=== PATIENT | female | born 1965 | race Caucasian/White ===

== ENCOUNTER 2021-12-28 13:02 | Emergency (ER) | payer OTHER, SELFPAY ==
[2021-12-28 13:07] VITALS: BP 104/51; PULSE 66; RESP 18; TEMP 36.5; O2SAT 97; BMI 31.4
--- NOTE | 2021-12-28 13:40 | ED_ITS ---
HPI - Eye Problem General Chief complaint: Eye Problems Stated complaint: Something in RT eye Time Seen by Provider: 12/28/21 13:30 History of Present Illness HPI Narrative: This 56-year-old female comes in reporting right eye discomfort. She states that she woke up with it this morning and does not know of any particular foreign object or injury event that brought about these symptoms. She states that she attempted to flush her eye out with Visine prior to arrival. Related Data Home Medications Medication Instructions Recorded Confirmed atorvastatin 40 mg tablet mg 12/28/21 bupropion HCl 150 mg 24 hr tablet, mg PO 12/28/21 extended release calcitriol 0.25 mcg capsule mcg 12/28/21 carvedilol 12.5 mg tablet mg 12/28/21 citalopram 20 mg tablet mg 12/28/21 loratadine 12/28/21 pramipexole 0.25 mg tablet mg 12/28/21 sevelamer carbonate 800 mg tablet mg 12/28/21 torsemide 20 mg tablet mg 12/28/21 trazodone 50 mg tablet mg 12/28/21 vitamin B complex and vitamin C cap 12/28/21 no.20-folic acid 1 mg capsule ([place]nee Caps) Previous Rx's Medication Instructions Recorded ketorolac 0.4 % eye drops 1 drp ophthalmic (eye) QID #5 mL 12/28/21 Allergies Allergy/AdvReac Type Severity Reaction Status Date / Time Penicillins Allergy Rash Verified 12/28/21 13:11 mercera(?) iron Allergy Uncoded 12/28/21 13:14 Review of Systems Status of ROS: Reports: 10 or more systems reviewed and unremarkable except as noted in History and below Narrative: Constitutional: No fevers, no weight gain or loss. Eyes: No discharge. No vision changes. Right eye pain which she prefers to manage by keeping her right eyelid closed. HENT: No congestion, no sore throat, no ear pain. Cardiovascular: No chest pain, no palpitations. Respiratory: No shortness of breath, no wheezes, no cough. Gastrointestinal: No abdominal pain, no vomiting, no diarrhea. Genitourinary: No dysuria, no hematuria. Musculoskeletal: Normal range of motion. Skin: No rashes, no pruritis. Neurological: No dizziness, weakness, sensory change, speech change. Endo/Heme/Allergies: No bruising or bleeding. No polydipsia. Pysch: no suicidality, no anxiety, no insomnia. All other systems reviewed and are negative. [facility] Social History Smoking Status: Current every day smoker How often do you have a drink containing alcohol: monthly or less AUDIT-C Alcohol total score: 1 Non-prescribed substance use: denies use Exam Narrative: Exam Narrative: Constitutional: Well-developed, well-nourished, no acute distress. HEENT: Normocephalic, atraumatic. Right eye is not injected and does not have any sign of discharge. The eye is examined under magnification and there is no findings of foreign object or residual material. Neck: Normal range of motion. Nontender. Supple. Heart: Intact distal pulses. Lungs: No chest discomfort. No wheezes, rhonchi, or rales. Abdomen: Nontender. Back: Normal range of motion. Extremities: Normal range of motion. No injury. Skin: Intact. No rash. Warm. No erythema or pallor. Neurologic: No altered sensation. No weakness. Alert and oriented. Psychiatric: No suicidality. No anxiety or depression. No insomnia. Nursing notes and vitals signs are reviewed. Const: Vital Signs, click to edit/add: Vital Signs - 24 hr 12/28/21 13:07 Temperature 97.7 F Pulse Rate [Left P ulse Oximeter] 66 Respiratory Rate 18 Blood Pressure [Ri ght Upper Arm] 104/51 L Pulse Oximetry 97 Oxygen Delivery Me thod Room Air Course Vital Signs Vital signs: Initial Vital Signs Temperature 97.7 F 12/28/21 13:07 Temperature Source Temporal Artery Scan 12/28/21 13:07 Pulse Rate 66 12/28/21 13:07 Pulse Rhythm 12/28/21 13:07 Respiratory Rate 18 12/28/21 13:07 Blood Pressure 104/51 L 12/28/21 13:07 Blood Pressure Mean 68 12/28/21 13:07 Blood Pressure Position Sitting 12/28/21 13:07 Pulse Oximetry 97 12/28/21 13:07 Oxygen Delivery Method 12/28/21 13:07 Vital Signs Temperature 97.7 F 12/28/21 13:07 Pulse Rate 66 12/28/21 13:07 Respiratory Rate 18 12/28/21 13:07 Blood Pressure 104/51 L 12/28/21 13:07 Pulse Oximetry 97 12/28/21 13:07 Oxygen Delivery Method 12/28/21 13:07 Temperature 97.7 F 12/28/21 13:07 Pulse Rate 66 12/28/21 13:07 Respiratory Rate 18 12/28/21 13:07 Blood Pressure 104/51 L 12/28/21 13:07 Pulse Oximetry 97 12/28/21 13:07 Oxygen Delivery Method 12/28/21 13:07 MDM - Eye Problem MDM Narrative Medical decision making narrative: This patient received tetracaine ophthalmic drops for anesthesia. I was able to re-examine her eye under magnification and found no evidence of foreign object or residual material. I did abeba her eyelid and saw normal results there also. I did apply floor seen dye and use a Wood's lamp to observe for any dye uptake. There was no evidence of dye uptake on this exam. The patient received a prescription for ketorolac ophthalmic solution for ongoing symptomatic relief. She is encouraged not to rub her eye. Discharge Plan Discharge Clinical Impression: Acute right eye pain Patient Disposition: Home, Self-Care Condition: Stable Additional Instructions: Use medication as needed and directed. Follow up with Ophthalmology Clinic as needed. Return if worsening. Prescriptions: New ketorolac 0.4 % drops 1 drp ophthalmic (eye) QID Qty: 5 0RF No Action atorvastatin 40 mg tablet Label Comments: TAKE 1 TABLET BY MOUTH EVERY DAY carvedilol 12.5 mg tablet Label Comments: TAKE 1 TABLET BY MOUTH TWICE A DAY torsemide 20 mg tablet Label Comments: TAKE 2 TABLETS BY MOUTH ONCE DAILY. trazodone 50 mg tablet Label Comments: TAKE 1 TABLET (50 MG) BY MOUTH AT BEDTIME IF NEEDED. citalopram 20 mg tablet pramipexole 0.25 mg tablet Label Comments: TAKE 1 TABLET BY MOUTH EVERYDAY AT BEDTIME [place] Caps 1 mg capsule Label Comments: TAKE 1 CAPSULE BY MOUTH ONCE DAILY. calcitriol 0.25 mcg capsule Label Comments: Take 1 capsule by mouth once a day bupropion HCl 150 mg tablet extended release 24 hr PO Label Comments: TAKE 1 TABLET BY MOUTH EVERY MORNING sevelamer carbonate 800 mg tablet Label Comments: TAKE 2 TABLETS BY MOUTH THREE TIMES DAILY WITH MEALS AND 1 TABLET TWICE DAILY WITH SNACKS loratadine Follow Up/Referrals: Lesli Sharif PA-C [Primary Care Provider] - Stand Alone [facility] Info Inst[facility]
--- OUTSIDE RECORDS SUMMARY | 2021-12-28 14:05 | XMS_ITS | Encounter Summary ---
:1965 Author Organization [facility] Address [address] [place] [address] Care Team Providers Name Role Phone Unavailable Primary Care Provider Unavailable Encounter Details Date Type Department Care Team Description 12/24/2021 Orders Only [facility] L[facility]pez Awad MD [address] [place] [address] [place], [place] [phone] (Wo rk) Social History Tobacco Use Types Packs/Day Years Used Date Smoking Tobacco: Never Assessed Sex Assigned at Date Recorded Not on file documented as of this encounter Plan of Treatment Not on filedocumented as of this encounter Procedures Procedure Name Priority Date/Time Associated Diagnosis Comme nts HD KINETICS Routine 12/24/2021 Results for thi s procedure are i n the results section . POST CHEMISTRY Routine 12/24/2021 Results for t his procedure are i n the results section . HEMATOLOGY Routine 12/24/2021 Results for thi s procedure are i n the results section . CHEMISTRY Routine 12/24/2021 Results for thi s procedure are i n the results section . [facility]RA [facility] RESULTS Routine 12/24/2021 Resul ts for this procedure are i n the results section . documented in this encounter Results [facility] Results (12/24/2021) P athologist Signature eKt/V Gotch 1.39 [facility] spKt/V 1.59 [facility] ([place]) nPCR_HD 0.85 [facility] spKt/V Gotch 1.64 [facility] eKt/V 1.37 [facility] ([place]) eKdrt/V 1.39 [facility] PCR 44.72 [facility] eNPCR 0.79 [facility] Specimen (Source) Anatomical Location Collection Method / Collectio n Time Received Time / Laterality Volume 12/24/2021 12/24/2021 [place] Ordering Provider LAB BLOOD ORDERABLES Performing Organization Address City/State/ZIP Code Phon e Number [facility] HD KINETICS (12/24/2021) athologist Signature % Urea 76 65 - 80 % [facility] Reduction [facility] Specimen (Source) Anatomical Collection Method Collection Time Re ceived Time Location / / Volume Laterality 12/24/2021 12/26/2021 8:45 AM CDT Resulting Agency Comment Specimen source: Plasma López Mariano MD LAB BLOOD ORDERABLES Performing Organization Address City/[facility]/ZIP Code Phon e Number [facility] POST CHEMISTRY (12/24/2021) athologist Signature BUN Post 11 6 - 19 [facility] Dialysis mg/dL [facility] Specimen (Source) Anatomical Collection Method Collection Time Re ceived Time Location / / Volume Laterality 12/24/2021 12/26/2021 8:45 AM CDT Narrative [facility] - 12/26/2021 Unless otherwise specified, test(s) performed at: [facility], [address] [place] [address], [place] [address] WEDGER: John Hernandez M.D., Ph.D For any questions, please call customer service at FREQUENCY:MONTHLY Resulting Agency Comment Specimen source: Plasma López Mariano MD LAB BLOOD ORDERABLES Performing Organization Address City/[facility]/ZIP Code Phon e Number [facility] (ABNORMAL) HEMATOLOGY (12/24/2021) [facility] gist Method Time Signature WBC 7.44 4.80 - [facility] 10.80 [facility] 1000/mcL RBC 3.59 (L) 4.20 - [facility] 5.40 [facility] mill/mcL Hemoglobin 12.5 12.0 - [facility] 16.0 g/dL [facility] Hemoglobin x 3 37.5 36.0 - [facility] 48.0 % [facility] Hematocrit 38.9 37.0 - [facility] 47.0 % [facility] MCV 108 (H) 80 - 100 [facility] fl [facility] MCH 34.7 (H) 27.0 - [facility] 31.0 pg [facility] MCHC 32.1 30.0 - [facility] 36.0 g/dL [facility] RDW 14.0 11.5 - [facility] 14.5 % [facility] Neutrophils 76.9 (H) 40.0 - [facility] 75.0 % [facility] Lymphocytes 14.2 (L) 19.0 - [facility] Relative 48.0 % [facility] Monocytes 4.9 3.0 - 10.0 [facility] % [facility] Eosinophils 2.2 0.0 - 7.0 [facility] Relative % [facility] Basophils 0.8 0.0 - 1.5 [facility] Relative % [facility] JESSICA 1.0 0.0 - 4.0 [facility] % [facility] Platelets 203 130 - 400 [facility] 1000/mcL [facility] Specimen (Source) Anatomical Collection Method Collection Time Re ceived Time Location / / Volume Laterality 12/24/2021 12/26/2021 8:19 AM CDT Narrative [facility] - 12/26/2021 Unless otherwise specified, test(s) performed at: [facility], [address] [place] [address], [place] [address] WEDGER: John Hernandez M.D., Ph.D For any questions, please call customer service at FREQUENCY:MONTHLY Resulting Agency Comment Specimen source: Blood López Mariano MD LAB BLOOD ORDERABLES Performing Organization Address City/State/ZIP Code Phon e Number [facility] (ABNORMAL) [facility]rae Chemistry (12/24/2021) [facility] gist Method Time Signature BUN 45 (H) 6 - 19 [facility] mg/dL [facility] Creatinine 9.03 (H) 0.60 - [facility] 1.30 mg/dL [facility] BUN/Creatinine 5.0 (L) 10.0 - [facility] Ratio 20.0 [facility] Sodium 137 136 - 145 [facility] mEq/L [facility] Potassium 4.9 3.5 - 5.1 [facility] mEq/L [facility] Chloride 100 96 - 108 [facility] mEq/L [facility] Bicarbonate 25 20 - 31 [facility] (CO2) mEq/L [facility] Comment: Please note change in reference range. Calcium 9.5 8.7 - 10.4 mg/dL [facility] Comment: Please note change in reference range. Corrected Calcium 9.2 8.7 - 10.4 mg/dL [facility]PS S PECTRA [facility] Comment: Corrected Calcium is not equivalent to m easured Ionized Calcium. Phosphorus 3.5 2.6 - 4.5 mg/dL [facility] Calcium Phosphorus Product 33 0 - 54 [facility] Calcium Phosporus Product, Cor 32 0 - 54 [facility] Total Protein 7.1 6.0 - 8.5 g/dL [facility] Albumin 4.4 3.5 - 5.2 g/dL [facility] Globulin, Total 2.7 2.0 - 4.0 g/dL [facility]PS SPECT RA [facility] A/G Ratio 1.6 1.0 - 2.0 [facility] Iron 82 30 - 160 mcg/dL [facility] UIBC 156 155 - 355 mcg/dL [facility] TIBC 238 185 - 515 mcg/dL [facility] Iron Saturation (TSat) 34 20 - 55 % APS SPE CTRA [facility] Specimen (Source) Anatomical Collection Method Collection Time Re ceived Time Location / / Volume Laterality 12/24/2021 12/26/2021 6:13 AM CDT Narrative [facility] - 12/26/2021 Unless otherwise specified, test(s) performed at: [facility], [address] [place] [address], [place] [address] WEDGER: John Hernandez M.D., Ph.D For any questions, please call customer service at FREQUENCY:MONTHLY Resulting Agency Comment Specimen source: Serum López Mariano MD LAB BLOOD ORDERABLES Performing Organization Address City/State/ZIP Code Phon e Number [facility] documented in this encounter Visit Diagnoses Not on filedocumented in this encounter
--- OUTSIDE RECORDS SUMMARY | 2021-12-28 14:05 | XMS_ITS | Clinical Summary ---
:1965 External Reference #:NONE Author Organization [facility] [place] [address] Care Team Providers Name Role Phone Matthew Pugh Primary Care Provider Allergies Active Allergy Reactions Severity Noted Date Comments Neomycin Rash High 12/11/2016 Penicillins Hives, Rash High 03/05/2008 Medications Medication Sig Dispensed Refills Start End Date Status Date loratadine Take 1 tablet by 0 Ac tive (CLARITIN) 10 mg mouth once daily. 2 tablet aspirin chewable Take 1 tablet by 90 tablet 3 Active (CHILDRENS ASPIRIN) mouth once daily 9 81 mg chewable with a meal. tablet sevelamer carbonate Take 1 Tablet by 0 Active (RENVELA) 800 mg mouth 3 times 1 tab tablet daily with meals. Sylvain Caps 1 mg 0 Activ e capsule 1 CPAPIndications: CPAP machine for 1 Device 11 Active TREMAINE on CPAP home use at 1 pressure: 4-15 cmw , Heated humidifier x 1 q 5 yr, Humidifier chamber x 1 q 6 mo, Full face mask x1 q 3mos, with cushion x 1 q mo, Heated tubing x 1 q 3 mo, Headgear x 1 q 6 mo, Filters: Disposable x 2 q mo non-disposable filters x1 q 6mo, Length of Need: 99 months, Frequency of use: Daily Esomeprazole Take 20 mg by 0 Act clyde Magnesium 40 mg mouth. grps pramipexole Take 1 Tablet by 0 A ctive (MIRAPEX) 0.25 mg mouth at bedtime. 1 tablet buPROPion Take 1 Tablet 90 Tablet 1 Active (WELLBUTRIN XL) 150 (150 mg) by mouth 1 mg Extended-Release every morning. tabletIndications: Dysthymia, Tobacco use sennosides-docusate Take 1 Tablet by 20 Tablet 0 Active (SENOKOT S) (8.6-50 mouth 2 times 1 mg) daily if needed tabletIndications: for Constipation. Peritoneal dialysis catheter dysfunction, subsequent encounter (HC) acetaminophen Take 2 Tablets 30 Tablet 0 A ctive (TYLENOL) 325 mg (650 mg) by mouth 1 tabletIndications: every 6 hours. Peritoneal dialysis Max acetaminophen catheter dose: 4000mg in dysfunction, 24 hrs. subsequent encounter (HC) torsemide (DEMADEX) Take 2 Tablets 180 Tablet 3 Active 20 mg (40 mg) by mouth 2 tabletIndications: once daily. ESRD (end stage renal disease) (HC) carvediloL (COREG) Take 1 Tablet 180 Tablet 3 Active 12.5 mg (12.5 mg) by 2 tabletIndications: mouth 2 times Essential daily. hypertension lidocaine-prilocain APPLY SMALL 0 Active e (EMLA) 2.5-2.5 % AMOUNT TO ACCESS 2 cream SITE (AVF) 1 TO 2 HOURS BEFORE DIALYSIS. COVER WITH OCCLUSIVE DRESSING (SARAN WRAP) citalopram (CELEXA) Take 1 Tablet (20 90 Tablet 1 Active 20 mg mg) by mouth at 2 tabletIndications: bedtime. Dysthymia traZODone (DESYREL) TAKE 1 TABLET (50 90 Tablet 0 Active 50 mg MG) BY MOUTH AT 2 tabletIndications: BEDTIME IF Insomnia, NEEDED. unspecified type atorvastatin TAKE 1 TABLET BY 90 Tablet 2 Active (LIPITOR) 40 mg MOUTH EVERY DAY 2 tabletIndications: Hyperlipidemia, unspecified hyperlipidemia type atorvastatin Take 1 Tablet (40 90 Tablet 3 12/14/19 Discontinued (LIPITOR) 40 mg mg) by mouth once 1 22 tabletIndications: daily. Hyperlipidemia, unspecified hyperlipidemia type Active Problems Problem Noted Date Pre-transplant evaluation for ESRD (end stage renal di sease) 03/31/2021 Polycystic liver 03/31/2019 Peritoneal dialysis catheter dysfunction Mar 201903/19 TREMAINE 04/04/2020 HST AHI-45 03/30/2019 Tobacco abuse 03/30/2019 Hyperlipidemia 03/29/2019 Uremia 03/01/2019 ESRD (end stage renal disease) due to PCKD 02/22/2019 Overview: Started on peritoneal dialysis Feb 2019. Catheter malfunction Mar 2019 so started on hemodialysis 03/30/19 Anemia in end-stage renal disease 02/22/2019 Routine adult health maintenance 08/29/2018 Overview: Colonoscopy 08/2018 diverticulosis, repea t in 5 years, Pediatrics scope Essential hypertension 07/13/2018 Secondary renal hyperparathyroidism 07/13/2018 Acalculous cholecystitis 07/04/2014 Polycystic kidney disease 08/23/2013 Asthma 03/02/2013 Resolved Problems Problem Noted Date Resolved Date CKD (chronic kidney disease) stage 5, GFR less than 15 07/1302/22/2019 ml/min Metabolic acidosis 07/13/2018 02/22/2019 Anemia in stage 4 chronic kidney disease 07/13/2018 02/22/2019 Encounters Date Type Specialty Care Team Description 12/26/2021 Ancillary Procedure Arrived 12/26/2021 Travel 12/10/2021 Refill Matthew Pugh Refill Request [facility] Mejia (Atorvastatin) 12/08/2021 Office Visit Shannan Govea MD Transpla nt Eval 12/08/2021 Travel 12/04/2021 Hospital Encounter Shannan Govea MD Pre-transplant evaluation [facility], for ESRD (end s tage renal Lucia P disease) 12/04/2021 Travel 11/08/2021 Refill Matthew Pugh Refyumi Request [facility] Mejia (Trazodone) 11/04/2021 Orders Only Shannan Govea MD <No scan s attached> 10/08/2021 Telephone Meliza Spence Status U mari Still RN 10/02/2021 Nurse/Clinic Staff Cardiovas cular Diagnostic Only Testing (EKG PE R MATTHEW PUGH PA-C) 10/02/2021 Orders Only Matthew Pugh <No scans anthony ched> J[facility] Mejia 10/02/2021 Travel from Last 3 Months Immunizations Name Administration Dates Next Due AMB Influenza, IIV4 PF (=>6 mos 01/23/2017 Flulaval,Fluzone Fluarix)(Flu Clinic Only) COVID-19 vaccine (Moderna 06/10/2020, 05/17/2020 100mcg/0.5mL) PF, MDV COVID-19 vaccine ([employer] 09/16/2021 30mcg/0.3mL) 12YO+ WANDY-SUCROSE PF, MDV Hepatitis B (Adult) 08/23/2019, 04/25/2019, 03/25/2019, 02/22/2019 Influenza A (H1N1), Inactivated 05/14/2009 Influenza Virus, Unspecified 01/24/2020, 03/14/2012, 011, 01/28/2010, 01/01/2009, 03/08/2008, 02/18/2006, 04/15/2004, 01/24/1997 Influenza, IIV3 (Age >=3 years) 03/14/2012, 01/27/2011, 01/17, 01/01/2009, 03/08/2008, 02/18/2006, 04/15/2004 Influenza, IIV4 01/31/2021, 01/24/2020, 04/02/2018, 01/23/2017, 02/04/2016, 12/21/2013 Pneumococcal Poly,23-Valent 02/04/2016 (Pneumovax) Pneumococcal conj 13-Valent (Prevnar 08/21/2020 13) TD, UNSPECIFIED 2006 Td (Age >=7 Years) 2006 Td, Preservative Free (age >= 7 2006 Years) Tdap 11/28/2020, 05/18/2011 Tuberculin (PPD) 02/22/2019 Family History Medical History Relation Name Comments Cancer-breast Father Hypertension Father Other Father polycystic kidne y disease Cancer-breast Mother Anesthesia Malignant Hyperthermia No Family History Blood Disease No Family History Relation Name Status Comments Father Mother Social History Tobacco Use Types Packs/Day Years Used Date Current Every Day Smoker Cigarettes 0.5 30 Smokeless Tobacco: Never Used Tobacco Cessation: Counseling Given: Yes Alcohol Use Standard Drinks/Week Comments Yes 0 (1 standard drink = 0.6 oz pure alcoho l) rarely Alcohol Habits Answer Date Recorded How often do you have a drink containing alcohol? Not asked How many drinks containing alcohol do you have on a typical Not asked day when you are drinking? How often do you have six or more drinks on one occasion? No t asked Comment: rarely 12/11/2016 Sex Assigned at Date Recorded Female 06/24/2020 10:04 AM [employer] COVID-19 Exposure Response Date Recorded In the last 10 days, have you been in contact with No / Unsu re 12/26/2021 3:34 PM CDT someone who was confirmed or suspected to have Coronavirus/COVID-19? Obstetrics History Last Filed Vital Signs Vital Sign Reading Time Taken Comments Blood Pressure 114/56 12/08/2021 12:23 PM CDT Pulse 72 12/08/2021 12:23 PM CDT Temperature 36.8 ??C (98.3 ??F) 12/08/2021 12:23 PM CDT Respiratory Rate 16 12/08/2021 12:23 PM CDT Oxygen Saturation 93% 12/08/2021 12:23 PM CDT Inhaled Oxygen Concentration - - Weight 92.5 kg (203 lb 14.4 oz) 12/08/2021 12:23 PM CDT Height 172.7 cm (5' 8) 12/08/2021 12:23 PM CDT Body Mass Index 31 12/08/2021 12:23 PM CDT Plan of Treatment Health Maintenance Due Date Last Done Comments Zoster (shingles) series for age 1103/10/1983 50+ (1 of 2) Pneumococcal series for age 19-64 08/21/2021 08/21/2020, (3 - PPSV23 or PCV20) Mammogram for age 45-75 11/20/2021 11/20/2020, 08/16/2018, 12/18/2016 Influenza for age 50-64 12/18/2021 01/31/2021, 01/24/2020, 01/24/2020, Additional history exists COVID-19 vaccine series (4 - 01/16/2022 09/16/2021, 021, Booster for Moderna series) 05/17/2020 Depression screening for age 12+ 09/16/2022 09/16/2021, , 09/08/2019, Additional history exists BMI (ht and wt on same day) for 12/08/2022 12/08/2021, 05/3 04/2021, age 18+ 03/03/2021, Additional history exists Lipids for age 45-75 11/28/2025 11/28/2020, 08/16/2018, 12/15/2016 Pap test for age 21-65 11/28/2025 11/28/2020, 11/28/2020, 08/16/2018, Additional history exists Colonoscopy through age 75 08/29/2028 08/29/2018, 9, 08/29/2018, Additional history exists Tetanus booster 11/28/2030 11/28/2020, 05/18/2011, 2006, Additional history exists Hepatitis C screening for age Completed 10/18/2020 18-79 Tdap Completed 11/28/2020, 05/18/2011 Procedures Procedure Name Priority Date/Time Associated Diagnosis Comme nts ECHO STRESS WO Routine 12/04/2021 10:31 Pre-transplant Results for this CONTRAST AM CDT evaluation for ESRD procedur e are in (end stage renal the results disease) section. EKG 12 LEAD Routine 10/02/2021 1:36 PM QT prolongation CDT HI READING EKG - NO Routine 10/02/2021 1:35 PM QT prolongation CHARGE, COMP ONLY CDT from Last 3 Months Results ECHO STRESS WO CONTRAST (12/04/2021 10:31 AM CDT) P athologist Signature AORTIC VALVE 5 mmHg MEAN PG LVEDD 4.6 cm EJECTION 55 - 60% FRACTION Anatomical Region Laterality Modality HEART Ultrasound Specimen (Source) Anatomical Collection Method Collection Time Re ceived Time Location / / Volume Laterality 12/04/2021 9:35 AM CDT Narrative 12/04/2021 10:54 AM CDT STRESS ECHOCARDIOGRAM CARRIE NORMAN ?Acces amada#: ?? [id number] : ?1965 56 years Study Date : ?? 12/04/2021 9:35:38 AM Gender: F ? BP: ? 98/48 mmHg Height: 170.00 cm ? BSA: ?2.02 m? ?? Weight: 91.00 kg ?Tech: ? CJG ?Referring MD: SHANNAN GOVEA Site: ? [facility] Reading Location: [facility] OP Procedure: Stress Echo, Limited Spectral Doppler, Color Doppler and Limited 2D. Sanjeev stress echo. Indication for study: ESRD Cardiac Rhythm: Regular.Study quality: Final Impressions: 1. Submaximal stress Echo. The peak hea rt rate was 79.5% of the age predicted maximal heart rate. Patient had taken Carvedilol the morning of stress test. 2. No inducible ischemia by imaging or ECG at the peak heart rate achieved. Of note, patient has history of an abnormal Dobutamine stress Echo in 06/2019 and subsequent coronary angiogram on 07/05/19 at [facility] had shown 70% OM lesion whi ch was left untreated due to small vessel side No significant CAD in the rest of the coronary arterial tree. 3. Resting LVEF 55-60%. 4. No significant valvular abnormalitie s by limited Doppler assessment. Stress Data: ? HR ?Systolic Diastolic Time Duration Minutes Seconds Baseline 7 2 bpm ? 98 ?48 mmHg ?8 :11 ? Peak ? 129 bpm ?? 122 ?64 mmHg Max Pred HR ?162 % of Max ? 79% ?? Benitez Treadmill Score 8 Double Product [id number] Echo Findings:This is a negative stress echo test for ischemia. Post stress, decreased left ventricular size, increased global systolic function with an estimated EF of 60 to 65%. LV regional wall motion abnormalities are not present post exercise. EKG:Resting EKG showed regular rhythm wi th normal conduction. During exercise, the patient developed no abnormal findings on rhythm with normal conduction. There were no ischemic changes by EKG during stress. Exam Protocol:The patient presents with no significant symptoms at baseline. The patient exercised 8 min 11 sec to stage III according to the Sanjeev stress echo protocol. Test terminated due to leg fatig ue. 10.2 METS were achieved. The patient achieved a heart rate of 129 bpm which is 79.5% of maximum predicted heart rate. Maximum systolic blood pressure was 122 mmHg which gives a double product of 157 38. Submaximum stress test with 79.5% of age predicted maximum heart rate achieved. The blood pressure response was normal. Exercise duration and workload were good. The patient developed leg pain/fatig ue during the stress exam. Symptoms reso lved with rest. Low (less than 1% annual mortality rate) non invasive risk stratification. Exercise stress test Benitez Treadmill Score of 8. Chamber Sizes and Function Normal left ventricular size, normal mayra bal systolic function with an estimated EF of 55 - 60%. LV regional wall motion abnormalities are not present. Left atrial size is normal. Right ventricular cavit y size is normal, global systolic RV fun ction is normal. The right atrium is normal. The pulmonary artery is not well visualized. The sinus of Valsalva is normal sized. The ascending aorta is not well visualized. Valves, RV Pressures and Diastolic Funct ion The aortic valve is normal in structure and trileaflet, no stenosis and no regurgitation. The mitral valve is normal in structure, no mitral regurgitation. The tricuspid valve is normal in structure. Tr icuspid regurgitation is trace. The pulm onic valve is not well visualized. Masses, Effusion, Shunts There is no pericardial effusion. The in ferior vena cava is not well visualized. Interatrial septum is not well visualized. MEASUREMENTS AND CALCULATIONS 2-D Measurements and LV Function: LVID (d) 4.6 cm LV FS% (2D) ?? 33 % LVID (s) 3.1 cm LVOT diameter 2.1 cm IVS (d) ??0.8 cm HR ?72 bpm LVPW (d) 0.9 cm Ao Sinus 3.3 cm LA ? 3.8 cm Aortic Valve: Vmax ? 1.4 m/s ??KIA (V) ?? 2.24 cm? ?? VTI ?0.32 m ?? KIA (I) ?? 2.34 cm? ?? LVOT V max 0.9 m/s ??Max PG ?8 mmHg LVOT VTI ?? 0.21 m ?? Mean PG ?? 5 mmHg SV ? 74 ml ?Dim Index 0.66 SV index ?? 37 ml/m? ?? . This study was interpreted by an [facility] facility. ??Final ?? Procedure Note Tray Tirado MD - 12/05/19 22 STRESS ECHOCARDIOGRAM CARRIE NORMAN : 1965 56 years Study Date: 11/17 9:35:38 AM Gender: F BP: 98/48 mmHg Height: 170.00 cm BSA: 2.02 m? ?? Weight: 91.00 kg Tech: [facility] Referring MD: SHANNAN GOVEA Site: [facility] Reading Location: [facility] OP Procedure: Stress Echo, Limited Spectral Doppler, Color Doppler and Limited 2D. Sanjeev stress echo. Indication for study: ESRD Cardiac Rhythm: Regular.Study quality: Final Impressions: 1. Submaximal stress Echo. The peak hea rt rate was 79.5% of the age predicted maximal heart rate. Patient had taken Carvedilol the morning of stress test. 2. No inducible ischemia by imaging or ECG at the peak heart rate achieved. Of note, patient has history of an abnormal Dobutamine stress Echo in 06/2019 and subsequent coronary angiogram on 07/05/19 at [facility] had shown 70% OM lesion which was left untreated due to small vessel side No significant CAD in the rest of the coronary arterial tree. 3. Resting LVEF 55-60%. 4. No significant valvular abnormalitie s by limited Doppler assessment. Stress Data: HR Systolic Diastolic Time Duration Minutes Seconds Baseline 7 2 bpm 98 48 mmHg 8 :11 Peak 129 bpm 122 64 mmHg Max Pred HR 162 % of Max 79% Benitez Treadmill Score 8 Double Product [id number] Echo Findings:This is a negative stress echo test for ischemia. Post stress, decreased left ventricular size, increased global systolic function with an estimated EF of 60 to 65%. LV regional wall motion abnormalities are not present post exercise. EKG:Resting EKG showed regular rhythm wi th normal conduction. During exercise, the patient developed no abnormal findings on rhythm with normal conduction. There were no ischemic changes by EKG during stress. Exam Protocol:The patient presents with no significant symptoms at baseline. The patient exercised 8 min 11 sec to stage III according to the Sanjeev stress echo protocol. Test terminated due to leg fatigue. 10.2 METS were achieved. The patient achieved a he art rate of 129 bpm which is 79.5% of maximum predicted heart rate. Maximum systolic blood pressure was 122 [place] [address]. Submaximum stress test with 79.5% of age predicted maximum heart rat e achieved. The blood pressure response was normal. Exercise duration and workload were good. The patient developed leg pain/fatigue during the stress exam. Symptoms resolved with rest. Low (less than 1% annual mortality rate) non invasive risk stratification. Exercise stress test Benitez Treadmill Score of 8. Chamber Sizes and Function Normal left ventricular size, normal mayra bal systolic function with an estimated EF of 55 - 60%. LV regional wall motion abnormalities are not present. Left atrial size is normal. Right ventricular cavity size is normal, global systolic RV function is n ormal. The right atrium is normal. The pulmonary artery is not well visualized. The sinus of Valsalva is normal sized. The ascending aorta is not well visualized. Valves, RV Pressures and Diastolic Funct ion The aortic valve is normal in structure and trileaflet, no stenosis and no regurgitation. The mitral valve is normal in structure, no mitral regurgitation. The tricuspid valve is normal in structure. Tricuspid regurgitation is trace. The pulmonic eloina ve is not well visualized. Masses, Effusion, Shunts There is no pericardial effusion. The in ferior vena cava is not well visualized. Interatrial septum is not well visualized. MEASUREMENTS AND CALCULATIONS 2-D Measurements and LV Function: LVID (d) 4.6 cm LV FS% (2D) 33 % LVID (s) 3.1 cm LVOT diameter 2.1 cm IVS (d) 0.8 cm HR 72 bpm LVPW (d) 0.9 cm Ao Sinus 3.3 cm LA 3.8 cm Aortic Valve: Vmax 1.4 m/s KIA (V) 2.24 cm? ?? VTI 0.32 m KIA (I) 2.34 cm? ?? LVOT V max 0.9 m/s Max PG 8 mmHg LVOT VTI 0.21 m Mean PG 5 mmHg SV 74 ml Dim Index 0.66 SV index 37 ml/m? ?? . [facility]. Final Shannan Govea MD ECHO ORD EKG 12 LEAD (10/02/2021 1:36 PM CDT) Narrative This result has an attachment that is no t available. Matthew OVALLES EKG ORD HI READING EKG - NO CHARGE, COMP ONLY (10/02/2021 1:35 PM CDT) Matthew OVALLES PB - PROVIDER READINGS from Last 3 Months Insurance Payer Benefit Plan / Subscriber ID Effective Phone Address T ype Group Dates KIDNEY KIDNEY NONE 2020-Prese [address] [place] ONLY [facility] - [id number] [place] [address] KIDNEY KIDNEY NONE 2020-Prese [address] ET HB ONLY [place] ONLY [facility] - [id number] [place] [address] [employer] [place] [employer] [id number] 2020-Prese [address] [place] [address] Carrie Norman Research Self [address] (Home) [place] [address] Advance Directives Latest Code Status on File Code Status Date Activated Date Inactivated Comments Full Code 03/11/2021 5:59 AM 03/11/2021 1:06 PM Code Status Discussion: Reviewed Preferences Full Code 03/29/2019 10:31 PM 03/31/2019 6:39 PM Care Teams Front End Loader Operator Relationship Specialty Start Date End Date Matthew Pugh PA PCP - General Physician [employer] Solution Architect 11/07/20 [address] [place] [address]
--- OUTSIDE RECORDS SUMMARY | 2021-12-28 14:05 | XMS_ITS | Encounter Summary ---
:1965 Author Organization [facility] Address [address] [place] [address] Care Team Providers Name Role Phone Unavailable Primary Care Provider Unavailable Encounter Details Date Type Department Care Team Description 12/17/2021 Orders Only [facility] López Awad MD [address] [place] [address] [address] [place], [place] [phone] (Wo rk) Social History Tobacco Use Types Packs/Day Years Used Date Smoking Tobacco: Never Assessed Sex Assigned at Date Recorded Not on file documented as of this encounter Plan of Treatment Not on filedocumented as of this encounter Procedures Procedure Name Priority Date/Time Associated Diagnosis Comme nts HEMATOLOGY Routine 12/17/2021 Results for thi s procedure are in the resu lts section. documented in this encounter Results HEMATOLOGY (12/17/2021) P athologist Signature Hemoglobin 12.8 12.0 - [facility] 16.0 g/dL [facility] Hemoglobin x 3 38.4 36.0 - [facility] 48.0 % [facility] Specimen (Source) Anatomical Collection Method Collection Time Re ceived Time Location / / Volume Laterality 12/17/2021 12/18/2021 3:35 AM CDT Narrative [facility] - 12/18/2021 Unless otherwise specified, test(s) performed at: [facility], [address] [place] [address], [place] [address] WEEDER: John Hernandez M.D., Ph.D For any questions, please call customer service at FREQUENCY:OTHER Resulting Agency Comment Specimen source: Blood López Mariano MD LAB BLOOD ORDERABLES Performing Organization Address City/State/ZIP Code Phon e Number [facility] documented in this encounter Visit Diagnoses Not on filedocumented in this encounter
--- OUTSIDE RECORDS SUMMARY | 2021-12-28 14:05 | XMS_ITS | Clinical Summary ---
:1965 Author Organization [facility] Facility Address [facility] JOSE STOVER [address] [place] [id number] Care Team Providers Name Role Phone Unavailable Primary Care Provider Unavailable Encounters Date Type Specialty Care Team Description 12/24/2021 Orders Only NephLópez Baca MD 12/17/2021 Orders Only NephLópez Baca MD 12/10/2021 Orders Only NephLópez Baca MD 12/10/2021 Treatment López Mariano MD 12/03/2021 Orders Only NephLópez Baca MD 11/26/2021 Orders Only NephLópez Baca MD 11/26/2021 Treatment López Mariano MD 11/19/2021 Orders Only NephLópez Baca MD 11/12/2021 Orders Only NephLópez Baca MD 11/12/2021 Treatment López Mariano MD 11/05/2021 Orders Only NephLópez Baca MD 10/29/2021 Orders Only López Bowman MD 10/29/2021 Treatment López Mariano MD 10/22/2021 Orders Only NephLópez Baca MD 10/15/2021 Orders Only NephLópez Baca MD 10/15/2021 Treatment López Mariano MD 10/08/2021 Orders Only NephLópez Baca MD 10/01/2021 Orders Only NephLópez Baca MD from Last 3 Months Social History Tobacco Use Types Packs/Day Years Used Date Smoking Tobacco: Never Assessed Sex Assigned at Date Recorded Not on file Plan of Treatment Health Maintenance Due Date Last Done Comments Colorectal Cancer Screenin2013 Annual FOBT Colorectal Cancer Screenin2013 Colonoscopy Colorectal Cancer Screenin2013 Sigmoidoscopy Pneumococcal Vaccine: Pediatrics 08/21/2021 08/21/2020 (0 to 5 Years) and At-Risk Patients (6 to 64 Years) (2 - PPSV23 or PCV20) Influenza Vaccine (#1) 2021 01/31/2021 Hepatitis B Vaccine Completed 08/23/2019, 04/25/2019, 03/25/2019, Additional history exists Procedures Procedure Name Priority Date/Time Associated Diagnosis Comme nts SPECTRA [facility] LAB RESULTS Routine 12/24/2021 Resul ts for this procedure are i n the results section . HD KINETICS Routine 12/24/2021 Results for thi [...] n the results section . HEMATOLOGY Routine 12/17/2021 Results for thi s procedure are i n the results section . HEMATOLOGY Routine 12/10/2021 Results for thi s procedure are i n the results section . CHEMISTRY Routine 12/10/2021 Results for thi s procedure are i n the results section . HEMATOLOGY Routine 12/03/2021 Results for thi s procedure are i n the results section . HEMATOLOGY Routine 11/26/2021 Results for thi s procedure are i n the results section . SPECTRA [facility] LAB RESULTS Routine 11/19/2021 Resul ts for this procedure are i n the results section . HD KINETICS Routine 11/19/2021 Results for thi s procedure are i n the results section . CHEMISTRY Routine 11/19/2021 Results for thi s procedure are i n the results section . POST CHEMISTRY Routine 11/19/2021 Results for t his procedure are i n the results section . HEMATOLOGY Routine 11/19/2021 Results for thi s procedure are i n the results section . HEMATOLOGY Routine 11/12/2021 Results for thi s procedure are i n the results section . HEMATOLOGY Routine 11/05/2021 Results for thi s procedure are i n the results section . HEMATOLOGY Routine 10/29/2021 Results for thi s procedure are i n the results section . SPECTRA [facility] LAB RESULTS Routine 10/22/2021 Resul ts for this procedure are i n the results section . HD KINETICS Routine 10/22/2021 Results for thi s procedure are i n the results section . SPECIAL CHEMISTRY Routine 10/22/2021 Results fo r this procedure are i n the results section . CHEMISTRY Routine 10/22/2021 Results for thi s procedure are i n the results section . IMMUNO CHEMISTRY Routine 10/22/2021 Results for this procedure are i n the results section . CHEMISTRY Routine 10/22/2021 Results for thi s procedure are i n the results section . HEMATOLOGY Routine 10/22/2021 Results for thi s procedure are i n the results section . POST CHEMISTRY Routine 10/22/2021 Results for t his procedure are i n the results section . HEMATOLOGY Routine 10/15/2021 Results for thi s procedure are i n the results section . HEMATOLOGY Routine 10/08/2021 Results for thi s procedure are i n the results section . HEMATOLOGY Routine 10/01/2021 Results for thi s procedure are i n the results section . from Last 3 Months Results HD KINETICS (12/24/2021)Only the most recent of3 resultswithin the time period is included. P athologist Signature % Urea 76 65 - 80 % APS SPECTRA Reduction [facility] Specimen (Source) Anatomical Collection Method Collection Time Re ceived Time Location / / Volume Laterality 12/24/2021 12/26/2021 8:45 AM CDT Resulting Agency Comment Specimen source: Plasma López Mariano MD LAB BLOOD ORDERABLES Performing Organization Address City/State/ZIP Code Phon e Number APS SPECTRA [facility] POST CHEMISTRY (12/24/2021)Only the most recent of3 resultswithin the time period is included. P athologist Signature BUN Post 11 6 - 19 APS SPECTRA Dialysis mg/dL [facility] Specimen (Source) Anatomical Collection Method Collection Time Re ceived Time Location / / Volume Laterality 12/24/2021 12/26/2021 8:45 AM CDT Narrative APS SPECTRA [facility] - 12/26/2021 Unless otherwise specified, test(s) performed at: [facility], [address] [place] [address], [place] [address] BICYCLE MECHANIC: John Hernandez M.D., Ph.D For any questions, please call customer service at FREQUENCY:MONTHLY Resulting Agency Comment Specimen source: Plasma López Mariano MD LAB BLOOD ORDERABLES Performing Organization Address City/State/ZIP Code Phon e Number APS SPECTRA [facility] (ABNORMAL) HEMATOLOGY (12/24/2021)Only the most recent of13 resultswithin the time period is included. [facility] gist Method Time Signature WBC 7.44 4.80 [...] 12/26/2021 Unless otherwise specified, test(s) performed at: [facility], [address] [place] [address], [place] [address] BICYCLE MECHANIC: John Hernandez M.D., Ph.D For any questions, please call customer service at FREQUENCY:MONTHLY Resulting Agency Comment Specimen source: Blood López Mariano MD LAB BLOOD ORDERABLES Performing Organization Address City/State/ZIP Code Phon e Number APS SPECTRA [facility] (ABNORMAL) Spectrae Chemistry (12/24/2021)Only the most recent of5 resultswithin the time period is included. [facility] gist Method Time Signature BUN 45 (H) [...] 12/26/2021 Unless otherwise specified, test(s) performed at: [facility], [address] [place] [address] BICYCLE MECHANIC: John Hernandez M.D., Ph.D For any questions, please call customer service at FREQUENCY:MONTHLY Resulting Agency Comment Specimen source: Serum López Mariano MD LAB BLOOD ORDERABLES Performing Organization Address City/State/ZIP Code Phon e Number APS SPECTRA [facility] Spectra [facility] Lab Results (12/24/2021)Only the most recent of3 resultswithin the time period is included. athologist Signature eKt/V Gotch 1.39 [place] spKt/V 1.59 [facility] ([place] II) nPCR_HD 0.85 [facility] spKt/V Gotch 1.64 [facility] eKt/V 1.37 [place] ([place]) eKdrt/V 1.39 [facility] PCR 44.72 [facility] eNPCR 0.79 [facility] Specimen (Source) Anatomical Location Collection Method / Collectio n Time Received Time / Laterality Volume 12/24/2021 12/24/2021 [place] Ordering Provider LAB BLOOD ORDERABLES Performing Organization Address City/[facility]/ZIP Code Phon e Number [facility] (ABNORMAL) SPECIAL CHEMISTRY (10/22/2021) athologist Signature Vitamin D, 12.0 (L) 19.9 - APS SPECTRA 1,25-Dihydroxy 79.3 pg/mL [facility] Specimen (Source) Anatomical Collection Method Collection Time Re ceived Time Location / / Volume Laterality 10/22/2021 10/24/2021 3:30 PM CDT Resulting Agency Comment Specimen source: Serum López Mariano MD LAB BLOOD BANK TEST ORDERABL ES Performing Organization Address City/State/ZIP Code Phon e Number APS SPECTRA [facility] IMMUNO CHEMISTRY (10/22/2021) P athologist Signature Hep B Surface Negative Negative APS SPECTRA Ag [facility] Hepatitis B 122 mIU/mL APS SPECTRA Surface Ab [facility] Comment: The anti-HBs (Hepatitis B surface antibo dy) is greater than or equal to 10 mIU/mL and implies immunity. The jaziel ent has either had an antibody response to HBV vaccination, received a transfusion, or has recovered from HBV infection. For post-vaccination antibody testing guidelines for the general public, refer to MMWR Dece 2004/Vol.54 (No. 16); 05-11, and for healthcare workers, refer to MMWR April 07, 2013/Vol.62 (No. 10); -18. Reference Range: <10 mIU/mL ? Non-Immune >=10 mIU/mL ?Immune The magnitude of the measured result abo ve 10 mIU/mL is not indicative of the total amount of antibody present. Hep B Core Total Ab Negative Negative APS SPECTR A [facility] Comment: Hep B Core Ab, Total appears during the acute infection stage and remains reactive/positive throughout the recovery stage. The above test result was obtained using [employer] IM chemiluminescent method. Results obtained with different assay methods or kits cannot be used interchangeably. Specimen (Source) Anatomical Collection Method Collection Time Re ceived Time Location / / Volume Laterality 10/22/2021 10/24/2021 5:49 PM CDT Resulting Agency Comment Specimen source: Plasma López Mariano MD LAB BLOOD ORDERABLES Performing Organization Address City/State/ZIP Code Phon e Number APS SPECTRA [facility] from Last 3 Months Insurance Payer Benefit Plan / Subscriber ID Effective Dates Phone Addre ss Type Your Tribute [id number] 2018-Maite [phone] [address] [place] [address] [place], ([id number]) [place] [address] [address] (Home) [place] [address]
--- OUTSIDE RECORDS SUMMARY | 2021-12-28 14:06 | XMS_ITS | Encounter Summary ---
:1965 Author Organization [facility] Address [address] [place] [address] Care Team Providers Name Role Phone Unavailable Primary Care Provider Unavailable Encounter Details Date Type Department Care Team Description 10/01/2021 Orders Only [facility] López Awad MD [phone] [place] [address] [place], [place] [phone] (Wo rk) Social History Tobacco Use Types Packs/Day Years Used Date Smoking Tobacco: Never Assessed Sex Assigned at Date Recorded Not on file documented as of this encounter Plan of Treatment Not on filedocumented as of this encounter Procedures Procedure Name Priority Date/Time Associated Diagnosis Comme nts HEMATOLOGY Routine 10/01/2021 Results for thi s procedure are in the resu lts section. documented in this encounter Results (ABNORMAL) HEMATOLOGY (10/01/2021) Analysis Performed At Patho logist Time Signature Hemoglobin 11.1 (L) 12.0 - APS SPECTRA 16.0 g/dL [facility] Hemoglobin x 3 33.3 (L) 36.0 - APS SPECTRA 48.0 % [facility] Specimen (Source) Anatomical Collection Method Collection Time Re ceived Time Location / / Volume Laterality 10/01/2021 10/02/2021 1:21 PM CDT Narrative APS SPECTRA [facility] - 10/02/2021 Unless otherwise specified, test(s) performed at: [facility], [address] [place] [id number] BENEFITS COUNSELOR: Yoseph Rose M.D. For any questions, please call customer service at FREQUENCY:OTHER Resulting Agency Comment Specimen source: Blood López Mariano MD LAB BLOOD ORDERABLES Performing Organization Address City/State/ZIP Code Phon e Number APS SPECTRA [facility] documented in this encounter Visit Diagnoses Not on filedocumented in this encounter
--- OUTSIDE RECORDS SUMMARY | 2021-12-28 14:06 | XMS_ITS | Encounter Summary ---
:1965 Author Organization [facility] Address [address] [place] [address] Care Team Providers Name Role Phone Unavailable Primary Care Provider Unavailable Encounter Details Date Type Department Care Team Description 10/29/2021 Orders Only [facility] O f López Awad MD [phone] [place] [address] [place], [place] [phone] (Wo rk) Social History Tobacco Use Types Packs/Day Years Used Date Smoking Tobacco: Never Assessed Sex Assigned at Date Recorded Not on file documented as of this encounter Plan of Treatment Not on filedocumented as of this encounter Procedures Procedure Name Priority Date/Time Associated Diagnosis Comme nts HEMATOLOGY Routine 10/29/2021 Results for thi s procedure are in the resu lts section. documented in this encounter Results HEMATOLOGY (10/29/2021) P athologist Signature Hemoglobin 12.1 12.0 - APS SPECTRA 16.0 g/dL [facility] Hemoglobin x 3 36.3 36.0 - APS SPECTRA 48.0 % [facility] Specimen (Source) Anatomical Collection Method Collection Time Re ceived Time Location / / Volume Laterality 10/29/2021 10/30/2021 2:56 AM CDT Narrative APS SPECTRA [facility] - 10/30/2021 Unless otherwise specified, test(s) performed at: [facility], [address] [place] [address], [place] [address] BUSINESS CONTROL SPECIALIST: John Hernandez M.D., Ph.D For any questions, please call customer service at FREQUENCY:OTHER Resulting Agency Comment Specimen source: Blood López Mariano MD LAB BLOOD ORDERABLES Performing Organization Address City/State/ZIP Code Phon e Number APS SPECTRA [facility] documented in this encounter Visit Diagnoses Not on filedocumented in this encounter
--- OUTSIDE RECORDS SUMMARY | 2021-12-28 14:06 | XMS_ITS | Encounter Summary ---
:1965 Author Organization [facility] Address [address] [place] [address] Care Team Providers Name Role Phone Unavailable Primary Care Provider Unavailable Encounter Details Date Type Department Care Team Description 08/20/2021 Treatment [facility] López Awad MD [address] [place], [place] [phone] (Wo rk) Social History Tobacco Use Types Packs/Day Years Used Date Smoking Tobacco: Never Assessed Sex Assigned at Date Recorded Not on file documented as of this encounter Miscellaneous Notes Dialysis Note - López Mariano MD - 08/20/2021 12:42 PM CDT Date: August 20, 2021 Patient Name: Stephanie Norman : 1965 Chart #: [id number] Sex: F This patient was personally seen for a complete visit as part of routine monthly dialysis care. A review of the dialysis treatment, blood pressure, estimated dry weight and recent lab values was made. These were discussed with the patient and staff as necessary. Treatment Data for 08/20/2021 started at:11:28 AM Dialyzer: 180NRe Optiflux Na: 137 mEq/L Bicarb: 31 mEq/L Dialysate: 2.0 K, 2.25 Ca, 1.0 Mg, 100 Dextrose (G2231) Dialysate/Machine Temp (prescribed): 37 C Dialysate/Machine Temp (actual): 37.1 C BFR (prescribed): 400 BFR (actual): 450 Prescribed time: 03:30 EDW: 91 kg Access Type: Active (In Use):AVFistula-Standard/Left Upper Arm Pre Dialysis Vitals (for 08/20/2021 11:23 AM ) Pre BP (sit): 124/62 Pre Wt: 94.8 kg Temp: 95.3 F Post Dialysis Vitals (for 08/18/2021 2:59 PM ) Post BP (sit): 118/61 Post Wt: 91.7 kg Current Dialysis Vitals (for 08/20/2021 12:31 PM ) BP (sit): 108/56 AP(-) / AIRPORT OPERATIONS SPECIALIST: 219/180 Pulse: 62 Chairside data as of 08/20/2021 12:31 PM Last 3 Treatments 08/18/2021 08/15/2021 08/13/2021 EDW (kg) 91 91 91 Weight Pre (kg) 95.2 95.1 94.1 Weight Post (kg) 91.7 91.8 92.2 Dialytic Weight Loss (kg) -3.5 -3.3 -1.9 EDW Deviation (kg) 0.7 0.8 1.2 BP Sit Pre 123/65 149/69 141/68 BP Sit Post 118/61 126/62 118/60 UF Rate (mL/kg/hr) 11 10 6 Prescribed BFR 400 400 400 Average Delivered BFR 350 400 430 Prescribed Treatment Time 03:30 03:30 03:30 Actual Treatment Time 03:30 03:32 03:29 Last 2 Values 06/27/2021 05/23/2021 Access Flow 1712 1718 Treatment Medication Orders Medication Sig Start Date End Date Heparin Sodium (Porcine) 1,000 Units/mL Systemic 4000 units IVP Every Treatment 02/26/2021 02/25/2022 Heparin Sodium (Porcine) 1,000 Units/mL Systemic 2000 units IVP Every Treatment 02/26/2021 02/25/2022 Iron Sucrose (Venofer) 100 mg IVP Every Treatment 08/01/2021 08/22/2021 Vitamin D (Calcitriol) Oral 0.25 mcg ORAL Every Treatment 2021 03/09/2022 COMMUNITY RELATIONS COORDINATOR: López Mariano MD LOCATION: [phone] SCHEDULE: M-W-F 2nd Shift EDW: kg. DIALYZER: HD DURATION: NEEDLE SIZE: ANTICOAG: BATH: QB: ml/min QD: ml/min Subjective No new complaints. 08/20/21: She feels great, has no concerns today, minimal cramping at end of treatments. BP excellent. 08/13/21: Had some mild cramping at end of dialysis sessions occcasionally, eating better and may have gained weight but she would like to wait to increase her EDW. She feels excellent. 07/30/21: No recent issues, tolerating dialysis well. BP's adequate. Needs to increase EDW. 07/09/21: Her appetite has been voracious recently, food tastes good again. BP low with trying to reach EDW. She feels excellent. 06/25/21: She feels excellent and has no concerns. She denies CP, SOB, edema, cramps or any other symptoms. 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 05/21/21: Stephanie is feeling well today. She feels hemo is going really well. 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 She denies CP, SOB, edema. 05/14/21: Came in below EDW again today, will lower to off weight today. BP is controlled. She feels excellent. She is working 40 hrs/week. She just became active on Tx list! 04/23/21: Stephanie is feeling absolutely wonderful. In fact, she would like to work 40 hours/week again as fatigue has improved and she can work overtime on non- dialysis days. She has more energy and betterappetite. 04/09/21: Stephanie feels excellent. She has no concerns. Tolerating dialysis very well. They picked up all her PD bags and boxes and equipment and she feels very happy to have her living room back! Will be with her kids for the holidays and she is looking forward to this. 04/02/21: Stephanie is fully recovered from hernia repair and removal of PD catheter. kt/v now adequate after increase in time. No excess fluid gains. She feels overall excellent. No new symptoms, just washed out after dialysis and hard to concentrate at times with work. 03/05/21: She had community acquired pneomonia, treated. She had abd pain and blood in PD catheter, resolved. Having intermittent nausea, worse after COVID booster. She feels great today, however. She has procedure next Wednesday for PD catheter removal, hernia repair, and PCAD out. She denies CP, SOB, edema, or other symptoms. 02/19/21: No new symptoms, she feels excellent. 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 Access now working well, day with 2 needles and to advance needles on Wednesday. 02/12/21: She saw gen surgery at [facility], sending her up to [place] to see Dr. Hudson given PKD and future tx and cahto nephrectomies possible. She is liking HD, thinks she will stay in center. AVF difficult to cannulate, got 1 needle today. Feels well, but does take about 2hrs to recover after dialysis with fatigue and feeling a little foggy afterward. 01/29/21: Had hernia about 2 inches from her PD catheter site, fluid coming in and out of it. PD stopped. Transitioned to HD. AVF unfortunately infiltrated/clotted, could not get to run. PCAD placed yesterday at [facility], fistulagram now with open access. This is its first use. She is feeling well. Would like to go back to PD if possible. Advanced Practitioner Subjective Review of Systems None reported. Problem List Description ICD9 Code ICD10 Code Autosomal dominant polycystic kidney disease Q61.3 End stage renal disease 585.6 N18.6 Dependence on renal dialysis V45.11 Z99.2 Anemia in end stage renal disease D63.1 N18.6 Hyperparathyroidism due to renal insufficiency 588.81 N25.81 Hypertensive disorder 401.9 I10 Exam Respiratory - nl effort Cardiovascular - Regular rate. Regular rhythm. Edema - No leg edema. Access - AVF without aneurysms, [address] Medication List Medication Sig Start Date aspirin 81 mg tablet,chewable Take 1 tablet by mouth once a day calcitriol 0.25 mcg capsule Take 1 capsule by mouth once a day 01/29/2021 carvedilol 12.5 mg tablet Take 1/2 tablet by mouth twice a day citalopram 40 mg tablet Take 1 tablet by mouth once a day as directed. Celexa - Take in the evening. gentamicin 0.1% cream Apply a small amount to skin once a day as needed. Apply to exit site daily and as needed Lipitor (atorvastatin) 40 mg tablet Take 1 tablet by mouth every evening loratadine 10 mg tablet Take 1 tablet by mouth once a day Nexium (esomeprazole magnesium) 20 mg capsule,delayed release(DR/EC) Take 1 capsule by mouth once a day. for reflux pramipexole 0.25 mg tablet Take 1 tablet by mouth at bedtime 02/12/2021 Saida-Millie (b complex-vitamin c-folic acid) 0.8 mg tablet Take 1 tablet by mouth once a day Renvela (sevelamer carbonate) 800 mg tablet Take 3 tablet by mouth three times a day with meals. 1 tab with snacks torsemide 20 mg tablet Take 2 tablet by mouth once a day trazodone 50 mg tablet Take 1 tablet by mouth at bedtime as needed Allergy List Allergen Reaction Reaction Severity Onset Date Mircera C/O Being Hot neomycin Skin rash PENICILLINS Skin rash Medications reviewed and no changes were made. Treatment and Adequacy Assessment BUN mg/dL 49 (08/01/21) 59 (07/23/21) 46 (06/25/21) 43 (06/18/21) 53 (05/21/21) UREA NITROGEN (MG/DL) IN SER/PLAS - POST DIALYSIS mg/dL 13 (08/01/21) 18 (07/23/21) 13 (06/25/21) 14 (06/18/21) 15 (05/21/21) URR % 73 (08/01/21) 69 (07/23/21) 72 (06/25/21) 67 (06/18/21) 72 (05/21/21) spKt/V Gotch 1.56 (08/01/21) 1.4 (07/23/21) 1.52 (06/25/21) 1.35 (06/18/21) 1.46 (05/21/21) eKdrt/V 1.32 (08/01/21) 1.19 (07/23/21) 1.29 (06/25/21) 1.15 (06/18/21) 1.24 (05/21/21) spKt/V (Daugirdas II) 1.5100 (08/01/21) 1.3700 (07/23/21) 1.4700 (06/25/21) 1.3100 (06/18/21) 1.4300 (05/21/21) Dialysis is adequate. Achieves prescribed time - Yes Achieves prescribed frequency - Yes Continue current prescription. Vascular Access Assessment Type of access: Fistula Fistulagram 12/2020 patent and no stenosis. Working well now was of 02/2021 Anemia Assessment HEMOGLOBIN (G/DL) IN BLOOD g/dL 11.1 (08/13/21) 10.9 (08/06/21) 10.3 (07/30/21) 11.1 (07/23/21) 11.5 (07/16/21) PLATELETS 1000/mcL 228 (06/18/21) 237 (05/21/21) 234 (04/23/21) 242 (03/19/21) 261 (02/19/21) IRON SATURATION % 19 (07/23/21) 23 (06/18/21) 29 (05/21/21) 14 (04/23/21) 26 (03/19/21) FERRITIN ng/mL 516 (07/23/21) 783 (06/25/21) 868 (04/23/21) 744 (03/26/21) 479 (02/26/21) Hemoglobin is above goal. Iron Saturation is below goal. Ferritin is at goal. Will adjust FABIO and intravenous iron per protocol. No FABIO therapy with Hgb >11 Nutritional and Metabolic Assessment ALBUMIN (G/DL) g/dL 4.3 (07/23/21) 4.1 (06/18/21) 4.5 (05/21/21) 4.4 (04/23/21) 4.1 (03/19/21) Sodium mEq/L 136 (07/23/21) 138 (06/18/21) 136 (05/21/21) 137 (04/23/21) 136 (03/19/21) POTASSIUM (MMOL/L) IN SER/PLAS mEq/L 5.1 (07/23/21) 5.0 (06/18/21) 4.9 (05/21/21) 4.6 (04/23/21) 4.3 (03/19/21) BICARBONATE (CO2) mEq/L 21 (07/23/21) 25 (06/18/21) 26 (05/21/21) 27 (04/23/21) 26 (03/19/21) Albumin is at goal. Encourage high-biological value protein intake. Potassium is at goal. Bicarbonate is at goal. Continue same bicarbonate in dialysate. Bone and Mineral Metabolism Assessment Calcium mg/dL 9.4 (07/23/21) 9.2 (06/18/21) 9.7 (05/21/21) 9.7 (04/23/21) 9.2 (03/19/21) CALCIUM (MG/DL) CORRECTED FOR ALBUMIN IN SER/PLAS mg/dL 9.2 (07/23/21) 9.1 (06/18/21) 9.3 (05/21/21) 9.4 (04/23/21) 9.1 (03/19/21) PHOSPHATE (MG/DL) IN SER/PLAS mg/dL 4.4 (07/23/21) 3.9 (06/18/21) 4.2 (05/21/21) 3.7 (04/23/21) 3.8 (03/19/21) CALCIUM PHOSPHORUS PRODUCT, COR 40 (07/23/21) 35 (06/18/21) 39 (05/21/21) 35 (04/23/21) 35 (03/19/21) IPTH pg/mL 370 (07/23/21) 283 (04/23/21) 342 (03/19/21) 398 (03/03/21) 778 (01/29/21) Corrected Calcium is at goal. Phosphorous is at goal. Intact PTH is at goal. Announcer will adjust binders and vitamin D per protocol and continue to provide dietary education. Cardiovascular Assessment Blood pressures reviewed and are acceptable. Intradialytic weight gains are appropriate. Estimated dry weight is appropriate. Transplant Status: Patient is on transplant list. Center - [facility] Now listed for Transplant at [facility] as of Apr 2021! Resuscitation Status Stable dialysis, no change in prescription Monthly labs being drawn today López Mariano MD [ Signed And locked electronically On 08/20/2021 at 12:42:50 PM ] Transcribed: López Mariano ( 08/20/2021 ) documented in this encounter Plan of Treatment Not on filedocumented as of this encounter Visit Diagnoses Not on filedocumented in this encounter
--- OUTSIDE RECORDS SUMMARY | 2021-12-28 14:06 | XMS_ITS | Encounter Summary ---
:1965 Author Organization [facility] Address [address] [place] [address] Care Team Providers Name Role Phone Unavailable Primary Care Provider Unavailable Encounter Details Date Type Department Care Team Description 08/01/2021 Orders Only [facility] O f López Awad MD [phone] [place] [address] [place], [place] [phone] (Wo rk) Social History Tobacco Use Types Packs/Day Years Used Date Smoking Tobacco: Never Assessed Sex Assigned at Date Recorded Not on file documented as of this encounter Plan of Treatment Not on filedocumented as of this encounter Procedures Procedure Name Priority Date/Time Associated Diagnosis Comme nts HD KINETICS Routine 08/01/2021 Results for thi s procedure are i n the results section . POST CHEMISTRY Routine 08/01/2021 Results for t his procedure are i n the results section . CHEMISTRY Routine 08/01/2021 Results for thi s procedure are i n the results section . SPECTRA [facility] LAB RESULTS Routine 08/01/2021 Resul ts for this procedure are i n the results section . documented in this encounter Results Spectra [facility] Lab Results (08/01/2021) P athologist Signature eKt/V 1.30 [facility] ([place]) spKt/V 1.51 [facility] (Daugirdas II) eKdrt/V 1.32 [facility] eNPCR 0.88 [facility] nPCR_HD 0.94 [facility] eKt/V Gotch 1.32 [facility] spKt/V Gotch 1.56 [facility] PCR 60.23 [facility] Specimen (Source) Anatomical Location Collection Method / Collectio n Time Received Time / Laterality Volume 08/01/2021 08/01/2021 [place] Ordering Provider LAB BLOOD ORDERABLES Performing Organization Address City/State/ZIP Code Phon e Number [facility] HD KINETICS (08/01/2021) P athologist Signature % Urea 73 65 - 80 % [facility]PS [facility]PECTRA Reduction [facility] Specimen (Source) Anatomical Collection Method Collection Time Re ceived Time Location / / Volume Laterality 08/01/2021 08/04/2021 10:0 4 AM CDT Narrative [facility]PS SPECTRA [facility] - 08/04/2021 Unless otherwise specified, test(s) performed at: [facility], [address] [place], [place] [id number] POT FISHER: Yoseph Rose M.D. For any questions, please call customer service at FREQUENCY:OTHER Resulting Agency Comment Specimen source: Serum López Mariano MD LAB BLOOD ORDERABLES Performing Organization Address City/[facility] Phon e Number APS SPECTRA [facility] (ABNORMAL) Spectrae Chemistry (08/01/2021) athologist Signature BUN 49 (H) 6 - 19 [facility]PS [facility]PECTRA mg/dL [facility] Specimen (Source) Anatomical Collection Method Collection Time Re ceived Time Location / / Volume Laterality 08/01/2021 08/04/2021 10:0 4 AM CDT Narrative [facility]PS SPECTRA [facility] - 08/04/2021 Unless otherwise specified, test(s) performed at: [facility], [address] [place] [id number] POT FISHER: Yoseph Rose M.D. For any questions, please call customer service at FREQUENCY:OTHER Resulting Agency Comment Specimen source: Serum López Mariano MD LAB BLOOD ORDERABLES Performing Organization Address City/[facility]/ZIP Code Phon e Number [facility]PS SPECTRA [facility] POST CHEMISTRY (08/01/2021) P athologist Signature BUN Post 13 6 - 19 APS SPECTRA Dialysis mg/dL [facility] Specimen (Source) Anatomical Collection Method Collection Time Re ceived Time Location / / Volume Laterality 08/01/2021 08/04/2021 9:25 AM CDT Narrative APS SPECTRA [facility] - 08/04/2021 Unless otherwise specified, test(s) performed at: [facility], [address] [place] [id number] POT FISHER: Yoseph Rose M.D. For any questions, please call customer service at FREQUENCY:OTHER Resulting Agency Comment Specimen source: Plasma López Mariano MD LAB BLOOD ORDERABLES Performing Organization Address City/State/ZIP Code Phon e Number APS SPECTRA [facility] documented in this encounter Visit Diagnoses Not on filedocumented in this encounter
--- OUTSIDE RECORDS SUMMARY | 2021-12-28 14:06 | XMS_ITS | Encounter Summary ---
:1965 Author Organization [facility] Address [address] [place] [address] Care Team Providers Name Role Phone Unavailable Primary Care Provider Unavailable Encounter Details Date Type Department Care Team Description 08/06/2021 Orders Only [facility] f López Awad MD [phone] [facility] [address] [place], [place] [phone] (Wo rk) Social History Tobacco Use Types Packs/Day Years Used Date Smoking Tobacco: Never Assessed Sex Assigned at Date Recorded Not on file documented as of this encounter Plan of Treatment Not on filedocumented as of this encounter Procedures Procedure Name Priority Date/Time Associated Diagnosis Comme nts HEMATOLOGY Routine 08/06/2021 Results for thi s procedure are in the resu lts section. documented in this encounter Results (ABNORMAL) HEMATOLOGY (08/06/2021) Analysis Performed At Patho logist Time Signature Hemoglobin 10.9 (L) 12.0 - APS SPECTRA 16.0 g/dL [facility] Hemoglobin x 3 32.7 (L) 36.0 - APS SPECTRA 48.0 % [facility] Specimen (Source) Anatomical Collection Method Collection Time Re ceived Time Location / / Volume Laterality 08/06/2021 08/09/2021 10:1 0 AM CDT Narrative APS SPECTRA [facility] - 08/09/2021 Unless otherwise specified, test(s) performed at: [facility], [address] [place] [id number] MATERIALS CLERK: Yoseph Roes M.D. For any questions, please call customer service at FREQUENCY:OTHER Resulting Agency Comment Specimen source: Blood López Mariano MD LAB BLOOD ORDERABLES Performing Organization Address City/State/ZIP Code Phon e Number APS SPECTRA [facility] documented in this encounter Visit Diagnoses Not on filedocumented in this encounter
--- OUTSIDE RECORDS SUMMARY | 2021-12-28 14:06 | XMS_ITS | Encounter Summary ---
:1965 Author Organization [facility] Address [address] [place] [address] Care Team Providers Name Role Phone Unavailable Primary Care Provider Unavailable Encounter Details Date Type Department Care Team Description 10/29/2021 Treatment [facility] López Awad MD [address] [place], [place] [phone] (Wo rk) Social History Tobacco Use Types Packs/Day Years Used Date Smoking Tobacco: Never Assessed Sex Assigned at Date Recorded Not on file documented as of this encounter Miscellaneous Notes Dialysis Note - López Mariano MD - 10/29/2021 1:44 PM CDT Date: Oct 29, 2021 Patient Name: Stephanie Norman : 1965 Chart #: [id number] Sex: F This patient was personally seen for a complete visit as part of routine monthly dialysis care. A review of the dialysis treatment, blood pressure, estimated dry weight and recent lab values was made. These were discussed with the patient and staff as necessary. Treatment Data for 10/29/2021 started at:11:32 AM Dialyzer: 180NRe Optiflux Na: 137 mEq/L Bicarb: 31 mEq/L Dialysate: 2.0 K, 2.5 Ca, 1.0 Mg, 100 Dextrose (G2251) Dialysate/Machine Temp (prescribed): 37 C Dialysate/Machine Temp (actual): 37.6 C BFR (prescribed): 400 BFR (actual): 400 Prescribed time: 03:30 EDW: 91 kg Access Type: Active (In Use):AVFistula-Standard/Left Upper Arm Pre Dialysis Vitals (for 10/29/2021 11:25 AM ) Pre BP (sit): 127/64 Pre Wt: 94.3 kg Temp: 97.6 F Post Dialysis Vitals (for 10/27/2021 3:01 PM ) Post BP (sit): 117/67 Post Wt: 91.4 kg Current Dialysis Vitals (for 10/29/2021 1:32 PM ) BP (sit): 108/54 AP(-) / WELL HEAD PUMPER: 177/192 Pulse: 63 Chairside data as of 10/29/2021 1:32 PM Last 3 Treatments 10/27/2021 10/24/2021 10/22/2021 EDW (kg) 91 91 91 Weight Pre (kg) 94.2 93.3 93.8 Weight Post (kg) 91.4 90.9 91 Dialytic Weight Loss (kg) -2.8 -2.4 -2.8 EDW Deviation (kg) 0.4 -0.1 0 BP Sit Pre 118/53 130/65 133/67 BP Sit Post 117/67 118/56 107/56 UF Rate (mL/kg/hr) 9 8 9 Prescribed BFR 400 400 400 Average Delivered BFR 450 400 400 Prescribed Treatment Time 03:30 03:30 03:30 Actual Treatment Time 03:31 03:25 03:30 Last 3 Values 09/26/2021 06/27/2021 05/23/2021 Access Flow > 2000 1712 1715 MATCHBOOK ASSEMBLER: López Mariano MD LOCATION: [place] [phone] SCHEDULE: -W- 2nd Shift EDW: kg. DIALYZER: HD DURATION: NEEDLE SIZE: ANTICOAG: BATH: QB: ml/min QD: ml/min Subjective No new complaints. 10/29/21: She feels excellent. NO changes since last visit. No new symptoms. Access working well. Restless feeling improved. 10/15/21: She is doing well, dialysis going well and BP has been controlled and dry weight stable. Sometimes restless with HD. Ropinerole works well at night for RLS. She is down to 4 cigs/day. 09/24/21: Has a little stress with her foster son that is at a facility they want to send back home and they are doing evaluation as she doesn't think this is safe plan. 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 She is still working on quitting smoking. 09/10/21: Stephanie feels well, denies CP or SOB or cramps. BP adequate. Labs reviewed with her, overall excellent. 08/20/21: She feels great, has no concerns [...] edema, cramps or any other symptoms. 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 05/21/21: Stephanie is feeling well today. She feels hemo is going really well. 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 She denies CP, SOB, edema. 05/14/21: [...] Wednesday. 02/12/21: She saw gen surgery at [facility], sending her up to [place] to see Dr. Hudson given PKD and future tx and [place] nephrectomies possible. She is liking HD, thinks [...] get to run. PCAD placed yesterday at [facility], fistulagram now with open access. This is [...] Hypertensive disorder 401.9 I10 Exam Respiratory - Clear to auscultation bilaterally. Cardiovascular - Regular rate. Regular rhythm. No murmur heard. Edema - No leg edema. Access - [...] made. Treatment and Adequacy Assessment BUN mg/dL 57 (10/22/21) 60 (09/17/21) 49 (08/20/21) 49 (08/01/21) 59 (07/23/21) UREA NITROGEN (MG/DL) IN SER/PLAS - POST DIALYSIS mg/dL 12 (10/22/21) 15 (09/17/21) 13 (08/20/21) 13 (08/01/21) 18 (07/23/21) URR % 79 (10/22/21) 75 (09/17/21) 73 (08/20/21) 73 (08/01/21) 69 (07/23/21) spKt/V Gotch 1.91 (10/22/21) 1.65 (09/17/21) 1.6 (08/20/21) 1.56 (08/01/21) 1.4 (07/23/21) eKdrt/V 1.62 (10/22/21) 1.4 (09/17/21) 1.36 (08/20/21) 1.32 (08/01/21) 1.19 (07/23/21) spKt/V (Daugirdas II) 1.8200 (10/22/21) 1.5900 (09/17/21) 1.5500 (08/20/21) 1.5100 (08/01/21) 1.3700 (07/23/21) Dialysis is adequate. Achieves prescribed time - Yes Achieves prescribed frequency - Yes Continue current prescription. Vascular Access Assessment Type of access: Fistula Fistulagram 12/2020 patent and no stenosis. Working well now was of 02/2021 Anemia Assessment HEMOGLOBIN (G/DL) IN BLOOD g/dL 11.1 (10/22/21) 11.8 (10/15/21) 11.3 (10/08/21) 11.1 (10/01/21) 10.7 (09/24/21) PLATELETS 1000/mcL 207 (10/22/21) 220 (09/17/21) 201 (08/20/21) 228 (06/18/21) 237 (05/21/21) IRON SATURATION % 18 (09/17/21) 27 (08/20/21) 19 (07/23/21) 23 (06/18/21) 29 (05/21/21) FERRITIN ng/mL 1140 (10/22/21) 516 (07/23/21) 783 (06/25/21) 868 (04/23/21) 744 (03/26/21) Hemoglobin is above goal. Iron Saturation is below goal. Ferritin is at goal. Will adjust FABIO and intravenous iron per protocol. No FABIO therapy with Hgb >11 Nutritional and Metabolic Assessment ALBUMIN (G/DL) g/dL 4.2 (10/22/21) 4.3 (09/17/21) 4.2 (08/20/21) 4.3 (07/23/21) 4.1 (06/18/21) Sodium mEq/L 135 (10/22/21) 137 (09/17/21) 136 (08/20/21) 136 (07/23/21) 138 (06/18/21) POTASSIUM (MMOL/L) IN SER/PLAS mEq/L 5.1 (10/22/21) 5.1 (09/17/21) 4.7 (08/20/21) 5.1 (07/23/21) 5.0 (06/18/21) BICARBONATE (CO2) mEq/L 24 (10/22/21) 24 (09/17/21) 24 (08/20/21) 21 (07/23/21) 25 (06/18/21) Albumin is at goal. Encourage high-biological value protein intake. Potassium is at goal. Bicarbonate is at goal. Continue same bicarbonate in dialysate. Bone and Mineral Metabolism Assessment CALCIUM mg/dL 9.4 (10/22/21) 9.5 (09/17/21) 9.0 (08/20/21) 9.4 (07/23/21) 9.2 (06/18/21) CALCIUM (MG/DL) CORRECTED FOR ALBUMIN IN SER/PLAS mg/dL 9.2 (10/22/21) 9.3 (09/17/21) 8.8 (08/20/21) 9.2 (07/23/21) 9.1 (06/18/21) PHOSPHATE (MG/DL) IN SER/PLAS mg/dL 5.4 (10/22/21) 4.8 (09/17/21) 4.8 (08/20/21) 4.4 (07/23/21) 3.9 (06/18/21) CALCIUM PHOSPHORUS PRODUCT, COR 50 (10/22/21) 45 (09/17/21) 42 (08/20/21) 40 (07/23/21) 35 (06/18/21) IPTH pg/mL 623 (10/22/21) 370 (07/23/21) 283 (04/23/21) 342 (03/19/21) 398 (03/03/21) Corrected Calcium is at goal. Phosphorous is at goal. Intact PTH is above goal. Turning Machine Operator Helper will adjust binders and vitamin D per protocol and continue to provide dietary education. Calcitriol increased this month Cardiovascular Assessment Blood pressures reviewed and are acceptable. Intradialytic weight gains are appropriate. Estimated dry weight is appropriate. Transplant Status: Patient is on transplant list. [facility] Now listed for Transplant at [facility] as of Apr 2021! Resuscitation Status Stable dialysis, no change in prescription but calcitriol increased this month for PTH >600 López Mariano MD [ Signed And locked electronically On 10/29/2021 at 01:45:51 PM ] Transcribed: López Mariano ( 10/29/2021 ) documented in this encounter Plan of Treatment Not on filedocumented as of this encounter Visit Diagnoses Not on filedocumented in this encounter
--- OUTSIDE RECORDS SUMMARY | 2021-12-28 14:06 | XMS_ITS | Encounter Summary ---
:1965 Author Organization [facility] Address [address] [place] [address] Care Team Providers Name Role Phone Unavailable Primary Care Provider Unavailable Encounter Details Date Type Department Care Team Description 07/09/2021 Orders Only [facility] O f López Awad MD [phone] [facility] [address] [place], [place] [phone] (Wo rk) Social History Tobacco Use Types Packs/Day Years Used Date Smoking Tobacco: Never Assessed Sex Assigned at Date Recorded Not on file documented as of this encounter Plan of Treatment Not on filedocumented as of this encounter Procedures Procedure Name Priority Date/Time Associated Diagnosis Comme nts HEMATOLOGY Routine 07/09/2021 Results for thi s procedure are in the resu lts section. documented in this encounter Results (ABNORMAL) HEMATOLOGY (07/09/2021) Analysis Performed At Patho logist Time Signature Hemoglobin 10.7 (L) 12.0 - [facility]PS [facility]RA 16.0 g/dL [facility] Hemoglobin x 3 32.1 (L) 36.0 - [facility] 48.0 % [facility] Specimen (Source) Anatomical Collection Method Collection Time Re ceived Time Location / / Volume Laterality 07/09/2021 07/10/2021 10:1 1 AM CDT Narrative [facility]PS SPECTRA [facility] - 07/10/2021 Unless otherwise specified, test(s) performed at: [facility], [address] [place] [id number] ELECTRICIAN ASSISTANT: Yoseph Rose M.D. For any questions, please call customer service at FREQUENCY:OTHER Resulting Agency Comment Specimen source: Blood López Mariano MD LAB BLOOD ORDERABLES Performing Organization Address City/State/ZIP Code Phon e Number APS SPECTRA [facility] documented in this encounter Visit Diagnoses Not on filedocumented in this encounter
--- OUTSIDE RECORDS SUMMARY | 2021-12-28 14:06 | XMS_ITS | Encounter Summary ---
:1965 Author Organization [facility] Address [address] [place] [address] Care Team Providers Name Role Phone Unavailable Primary Care Provider Unavailable Encounter Details Date Type Department Care Team Description 09/24/2021 Treatment [facility] f López Awad MD [address] [place], [place] [phone] (Wo rk) Social History Tobacco Use Types Packs/Day Years Used Date Smoking Tobacco: Never Assessed Sex Assigned at Date Recorded Not on file documented as of this encounter Miscellaneous Notes Dialysis Note - López Mariano MD - 09/24/2021 12:17 PM CDT Date: Sep 24, 2021 Patient Name: Stephanie Norman : 1965 Chart #: [id number] Sex: F This patient was personally seen for a complete visit as part of routine monthly dialysis care. A review of the dialysis treatment, blood pressure, estimated dry weight and recent lab values was made. These were discussed with the patient and staff as necessary. Treatment Data for 09/24/2021 started at:11:28 AM Dialyzer: 180NRe Optiflux Na: 137 mEq/L Bicarb: 31 mEq/L Dialysate: 2.0 K, 2.5 Ca, 1.0 Mg, 100 Dextrose (G2251) Dialysate/Machine Temp (prescribed): 37 C Dialysate/Machine Temp (actual): 35.5 C BFR (prescribed): 400 BFR (actual): 400 Prescribed time: 03:30 EDW: 91 kg Access Type: Active (In Use):AVFistula-Standard/Left Upper Arm Pre Dialysis Vitals (for 09/24/2021 11:17 AM ) Pre BP (sit): 132/61 Pre Wt: 94.8 kg Temp: 98 F Post Dialysis Vitals (for 09/22/2021 2:58 PM ) Post BP (sit): 117/57 Post Wt: 92.6 kg Current Dialysis Vitals (for 09/24/2021 12:07 PM ) BP (sit): 129/73 AP(-) / MUSIC EDUCATOR: 163/171 Pulse: 63 Chairside data as of 09/24/2021 12:07 PM Last 3 Treatments 09/22/2021 09/19/2021 09/17/2021 EDW (kg) 91 91 91 Weight Pre (kg) 94.9 92.5 93 Weight Post (kg) 92.6 90.6 90.8 Dialytic Weight Loss (kg) -2.3 -1.9 -2.2 EDW Deviation (kg) 1.6 -0.4 -0.2 BP Sit Pre 155/75 123/69 130/63 BP Sit Post 117/57 120/60 113/55 UF Rate (mL/kg/hr) 7 6 7 Prescribed BFR 400 400 400 Average Delivered BFR 400 400 400 Prescribed Treatment Time 03:30 03:30 03:30 Actual Treatment Time 03:31 03:29 03:31 Last 2 Values 06/27/2021 05/23/2021 Access Flow 3516 1713 Treatment Medication Orders Medication Sig Start Date End Date Heparin Sodium (Porcine) 1,000 Units/mL Systemic 4000 units IVP Every Treatment 02/26/2021 02/25/2022 Heparin Sodium (Porcine) 1,000 Units/mL Systemic 2000 units IVP Every Treatment 02/26/2021 02/25/2022 Iron Sucrose (Venofer) 50 mg IVP 1X Week 09/22/2021 09/21/2022 Vitamin D (Calcitriol) Oral 0.25 mcg ORAL Every Treatment 2021 03/09/2022 METAL NUMERICAL TOOL PROGRAMMER: López Mariano MD LOCATION: [phone] SCHEDULE: M-W-F 2nd Shift EDW: kg. DIALYZER: HD DURATION: NEEDLE SIZE: ANTICOAG: BATH: QB: ml/min QD: ml/min Subjective No new complaints. 09/24/21: Has a little stress with her foster son that is at a facility they want to send back home and they are doing evaluation as she doesn't think this is safe plan. 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 She is [...] edema, cramps or any other symptoms. 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 05/21/21: Stephanie is feeling well today. She feels hemo is going really well. 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 She denies CP, SOB, edema. 05/14/21: [...] Wednesday. 02/12/21: She saw gen surgery at [facility], sending her up to [place] to see Dr. Hudson given PKD and future tx and [place] nephrectomies possible. She is liking HD, thinks [...] get to run. PCAD placed yesterday at [facility], fistulagram now with open access. This is [...] Exam Respiratory - Clear to auscultation bilaterally. nl effort Cardiovascular - Regular rate. Regular [...] made. Treatment and Adequacy Assessment BUN mg/dL 60 (09/17/21) 49 (08/20/21) 49 (08/01/21) 59 (07/23/21) 46 (06/25/21) UREA NITROGEN (MG/DL) IN SER/PLAS - POST DIALYSIS mg/dL 15 (09/17/21) 13 (08/20/21) 13 (08/01/21) 18 (07/23/21) 13 (06/25/21) URR % 75 (09/17/21) 73 (08/20/21) 73 (08/01/21) 69 (07/23/21) 72 (06/25/21) spKt/V Gotch 1.65 (09/17/21) 1.6 (08/20/21) 1.56 (08/01/21) 1.4 (07/23/21) 1.52 (06/25/21) eKdrt/V 1.4 (09/17/21) 1.36 (08/20/21) 1.32 (08/01/21) 1.19 (07/23/21) 1.29 (06/25/21) spKt/V (Daugirdas II) 1.5900 (09/17/21) 1.5500 (08/20/21) 1.5100 (08/01/21) 1.3700 (07/23/21) 1.4700 (06/25/21) Dialysis is adequate. Achieves prescribed time - Yes Achieves prescribed frequency - Yes Continue current prescription. Vascular Access Assessment Type of access: Fistula Fistulagram 12/2020 patent and no stenosis. Working well now was of 02/2021 Anemia Assessment HEMOGLOBIN (G/DL) IN BLOOD g/dL 11.6 (09/17/21) 10.6 (09/10/21) 11.2 (09/03/21) 11.3 (08/27/21) 10.9 (08/20/21) PLATELETS 1000/mcL 220 (09/17/21) 201 (08/20/21) 228 (06/18/21) 237 (05/21/21) 234 (04/23/21) IRON SATURATION % 18 (09/17/21) 27 (08/20/21) 19 (07/23/21) 23 (06/18/21) 29 (05/21/21) FERRITIN ng/mL 516 (07/23/21) 783 (06/25/21) 868 (04/23/21) 744 (03/26/21) 479 (02/26/21) Hemoglobin is above goal. Iron Saturation is below goal. Ferritin is at goal. Will adjust FABIO and intravenous iron per protocol. No FABIO therapy with Hgb >11 Nutritional and Metabolic Assessment ALBUMIN (G/DL) g/dL 4.3 (09/17/21) 4.2 (08/20/21) 4.3 (07/23/21) 4.1 (06/18/21) 4.5 (05/21/21) Sodium mEq/L 137 (09/17/21) 136 (08/20/21) 136 (07/23/21) 138 (06/18/21) 136 (05/21/21) POTASSIUM (MMOL/L) IN SER/PLAS mEq/L 5.1 (09/17/21) 4.7 (08/20/21) 5.1 (07/23/21) 5.0 (06/18/21) 4.9 (05/21/21) BICARBONATE (CO2) mEq/L 24 (09/17/21) 24 (08/20/21) 21 (07/23/21) 25 (06/18/21) 26 (05/21/21) Albumin is at goal. Encourage high-biological value protein intake. Potassium is at goal. Bicarbonate is at goal. Continue same bicarbonate in dialysate. Bone and Mineral Metabolism Assessment Calcium mg/dL 9.5 (09/17/21) 9.0 (08/20/21) 9.4 (07/23/21) 9.2 (06/18/21) 9.7 (05/21/21) CALCIUM (MG/DL) CORRECTED FOR ALBUMIN IN SER/PLAS mg/dL 9.3 (09/17/21) 8.8 (08/20/21) 9.2 (07/23/21) 9.1 (06/18/21) 9.3 (05/21/21) PHOSPHATE (MG/DL) IN SER/PLAS mg/dL 4.8 (09/17/21) 4.8 (08/20/21) 4.4 (07/23/21) 3.9 (06/18/21) 4.2 (05/21/21) CALCIUM PHOSPHORUS PRODUCT, COR 45 (09/17/21) 42 (08/20/21) 40 (07/23/21) 35 (06/18/21) 39 (05/21/21) IPTH pg/mL 370 (07/23/21) 283 (04/23/21) 342 (03/19/21) 398 (03/03/21) 778 (01/29/21) Corrected Calcium is at goal. Phosphorous is at goal. Intact PTH is at goal. Bit Tripoler will adjust binders and vitamin D per protocol and continue to provide dietary education. Cardiovascular Assessment Blood pressures reviewed and are acceptable. Intradialytic weight gains are appropriate. Estimated dry weight is appropriate. Transplant Status: Patient is on transplant list. [facility] Now listed for Transplant at [place] as of Apr 2021! Resuscitation Status Stable dialysis, no change in prescription López Mariano MD [ Signed And locked electronically On 09/24/2021 at 12:18:33 PM ] Transcribed: López Mariano ( 09/24/2021 ) documented in this encounter Plan of Treatment Not on filedocumented as of this encounter Visit Diagnoses Not on filedocumented in this encounter
--- OUTSIDE RECORDS SUMMARY | 2021-12-28 14:06 | XMS_ITS | Encounter Summary ---
:1965 Author Organization [facility] Address [address] [place] [address] Care Team Providers Name Role Phone Unavailable Primary Care Provider Unavailable Encounter Details Date Type Department Care Team Description 11/19/2021 Orders Only [facility] O f López Awad MD [phone] [place] [address] [place], [place] [phone] (Wo rk) Social History Tobacco Use Types Packs/Day Years Used Date Smoking Tobacco: Never Assessed Sex Assigned at Date Recorded Not on file documented as of this encounter Plan of Treatment Not on filedocumented as of this encounter Procedures Procedure Name Priority Date/Time Associated Diagnosis Comme nts HD KINETICS Routine 11/19/2021 Results for thi [...] this encounter Results Spectra [facility] Lab Results (11/19/2021) P athologist Signature nPCR_HD 0.99 [place] spKt/V 1.54 [facility] (Daugirdas II) eNPCR 0.91 [place] eKdrt/V 1.38 [place] eKt/V Gotch 1.38 [facility] eKt/V 1.32 [facility] ([place]) PCR 54.52 [facility] spKt/V Gotch 1.63 [facility] Specimen (Source) Anatomical Location Collection Method / Collectio n Time Received Time / Laterality Volume 11/19/2021 11/19/2021 [place] Ordering Provider LAB BLOOD ORDERABLES Performing Organization Address City/State/ZIP Code Phon e Number [facility] HD KINETICS (11/19/2021) P athologist Signature % Urea 74 65 - 80 % [facility] Reduction [facility] Specimen (Source) Anatomical Collection Method Collection Time Re ceived Time Location / / Volume Laterality 11/19/2021 11/20/2021 4:39 AM CDT Narrative [facility]PS [facility] - 11/20/2021 Unless otherwise specified, test(s) performed at: [facility], [address] [place] [address], [place] [address] POSTING CLERK: John Hernandez M.D., Ph.D For any questions, please call customer service at FREQUENCY:MONTHLY Resulting Agency Comment Specimen source: Plasma López Mariano MD LAB BLOOD ORDERABLES Performing Organization Address City/State/ZIP Code Phon e Number [facility]PS [facility] (ABNORMAL) Spectrae Chemistry (11/19/2021) Patholo gist Method Time Signature BUN 53 (H) 6 - 19 [facility] mg/dL [facility] Creatinine 9.16 (H) 0.60 - [facility] 1.30 mg/dL [facility] BUN/Creatinine 5.8 (L) 10.0 - [facility] Ratio 20.0 [facility] Sodium 137 136 - 145 [facility] mEq/L [facility] Potassium 4.9 3.5 - 5.1 [facility] mEq/L [facility] Chloride 100 96 - 108 [facility] mEq/L [facility] Bicarbonate 24 20 - 31 [facility] (CO2) mEq/L [facility] Comment: Please note change in reference range. Calcium 9.3 8.7 - 10.4 mg/dL [facility]PS SPECTRA K [facility] Comment: Please note change in reference range. Corrected Calcium 9.1 8.7 - 10.4 mg/dL APS S PECTRA [facility] Comment: Corrected Calcium is not equivalent to m easured Ionized Calcium. Phosphorus 4.6 (H) 2.6 - 4.5 mg/dL APS SPECTRA K [facility] Calcium Phosphorus Product 43 0 - 54 [facility]RA [facility] Calcium Phosporus Product, Cor 42 0 - 54 [facility] Total Protein 7.0 6.0 - 8.5 g/dL [facility]PS [facility] Albumin 4.3 3.5 - 5.2 g/dL [facility] Globulin, Total 2.7 2.0 - 4.0 g/dL APS SPECT RA [facility] A/G Ratio 1.6 1.0 - 2.0 [facility]PS [facility] Iron 67 30 - 160 mcg/dL APS SPECTRA [place] [facility]N UIBC 182 155 - 355 mcg/dL [facility]PS SPECTRA K [facility] TIBC 249 185 - 515 mcg/dL APS SPECTRA K [facility] Iron Saturation (TSat) 27 20 - 55 % APS SPE CTRA [facility] Specimen (Source) Anatomical Collection Method Collection Time Re ceived Time Location / / Volume Laterality 11/19/2021 11/20/2021 7:39 AM CDT Narrative [facility]PS SPECTRA [facility] - 11/20/2021 Unless otherwise specified, test(s) performed at: [facility], [address] [place] [address], [place] [address] POSTING CLERK: John Hernandez M.D., Ph.D For any questions, please call customer service at FREQUENCY:MONTHLY Resulting Agency Comment Specimen source: Serum López Mariano MD LAB BLOOD ORDERABLES Performing Organization Address City/[facility] Phon e Number APS SPECTRA [facility] POST CHEMISTRY (11/19/2021) P athologist Signature BUN Post 14 6 - 19 APS SPECTRA Dialysis mg/dL [facility] Specimen (Source) Anatomical Collection Method Collection Time Re ceived Time Location / / Volume Laterality 11/19/2021 11/20/2021 4:39 AM CDT Narrative APS SPECTRA [facility] - 11/20/2021 Unless otherwise specified, test(s) performed at: [facility], [address] [place] [address] [employer] [facility] [place] [address] POSTING CLERK: John Hernandez M.D., Ph.D For any questions, please call customer service at FREQUENCY:MONTHLY Resulting Agency Comment Specimen source: Plasma López Mariano MD LAB BLOOD ORDERABLES Performing Organization Address City/State/ZIP Code Phon e Number [facility]PS SPECTRA [facility] (ABNORMAL) HEMATOLOGY (11/19/2021) [facility] gist Method Time Signature WBC 7.91 4.80 - [facility]RA 10.80 [facility] 1000/mcL RBC 3.54 (L) 4.20 - [facility]PECTRA 5.40 [facility] mill/mcL Hemoglobin 12.2 12.0 - [facility] 16.0 g/dL [facility] Hemoglobin x 3 36.6 36.0 - [facility] 48.0 % [facility] Hematocrit 37.8 37.0 - [facility] 47.0 % [facility] MCV 107 (H) 80 - 100 [facility] fl [facility] MCH 34.4 (H) 27.0 - [facility] 31.0 pg [facility] MCHC 32.2 30.0 - [facility] 36.0 g/dL [facility] RDW 13.6 11.5 - [facility] 14.5 % [facility] Neutrophils 79.6 (H) 40.0 - [facility]RA 75.0 % [facility] Lymphocytes 11.8 (L) 19.0 - [facility] Relative 48.0 % [facility] Monocytes 4.0 3.0 - 10.0 [facility] % [facility] Eosinophils 2.9 0.0 - 7.0 [facility] Relative % [facility] Basophils 0.8 0.0 - 1.5 [facility] Relative % [facility] JESSICA 1.0 0.0 - 4.0 [facility]PS SPECT[facility] % [facility] Platelets 228 130 - 400 APS [facility]PECTRA 1000/mcL [facility] Specimen (Source) Anatomical Collection Method Collection Time Re ceived Time Location / / Volume Laterality 11/19/2021 11/20/2021 6:41 AM CDT Narrative [facility]PS [facility]RA [facility] - 11/20/2021 Unless otherwise specified, test(s) performed at: [facility], [address] [place] [address], [place] [address] POSTING CLERK: John Hernandez M.D., Ph.D For any questions, please call customer service at FREQUENCY:MONTHLY Resulting Agency Comment Specimen source: Blood López Mariano MD LAB BLOOD ORDERABLES Performing Organization Address City/State/ZIP Code Phon e Number [facility]PS SPECTRA [facility] documented in this encounter Visit Diagnoses Not on filedocumented in this encounter
--- OUTSIDE RECORDS SUMMARY | 2021-12-28 14:06 | XMS_ITS | Encounter Summary ---
:1965 Author Organization [facility] Address [address] [place] [address] Care Team Providers Name Role Phone Unavailable Primary Care Provider Unavailable Encounter Details Date Type Department Care Team Description 11/05/2021 Orders Only [facility] López Awad MD [phone] [place] [address] [place], [place] [phone] (Wo rk) Social History Tobacco Use Types Packs/Day Years Used Date Smoking Tobacco: Never Assessed Sex Assigned at Date Recorded Not on file documented as of this encounter Plan of Treatment Not on filedocumented as of this encounter Procedures Procedure Name Priority Date/Time Associated Diagnosis Comme nts HEMATOLOGY Routine 11/05/2021 Results for thi s procedure are in the resu lts section. documented in this encounter Results HEMATOLOGY (11/05/2021) P athologist Signature Hemoglobin 12.1 12.0 - [facility] 16.0 g/dL [facility] Hemoglobin x 3 36.3 36.0 - [facility] 48.0 % [facility] Specimen (Source) Anatomical Collection Method Collection Time Re ceived Time Location / / Volume Laterality 11/05/2021 11/06/2021 1:33 PM CDT Narrative [facility] - 11/06/2021 Unless otherwise specified, test(s) performed at: [facility], [address] [place] [address], [place] [address] STORAGE ARCHITECT: John Hernandez M.D., Ph.D For any questions, please call customer service at FREQUENCY:OTHER Resulting Agency Comment Specimen source: Blood López Mariano MD LAB BLOOD ORDERABLES Performing Organization Address City/State/ZIP Code Phon e Number [facility] documented in this encounter Visit Diagnoses Not on filedocumented in this encounter
--- OUTSIDE RECORDS SUMMARY | 2021-12-28 14:06 | XMS_ITS | Encounter Summary ---
:1965 Author Organization [facility] Address [address] [place] [address] Care Team Providers Name Role Phone Unavailable Primary Care Provider Unavailable Encounter Details Date Type Department Care Team Description 09/03/2021 Orders Only [facility] f López Awad MD [phone] [facility] [address] [place], [place] [phone] (Wo rk) Social History Tobacco Use Types Packs/Day Years Used Date Smoking Tobacco: Never Assessed Sex Assigned at Date Recorded Not on file documented as of this encounter Plan of Treatment Not on filedocumented as of this encounter Procedures Procedure Name Priority Date/Time Associated Diagnosis Comme nts HEMATOLOGY Routine 09/03/2021 Results for thi s procedure are in the resu lts section. documented in this encounter Results (ABNORMAL) HEMATOLOGY (09/03/2021) Analysis Performed At Patho logist Time Signature Hemoglobin 11.2 (L) 12.0 - [facility] 16.0 g/dL [facility] Hemoglobin x 3 33.6 (L) 36.0 - [facility] 48.0 % [facility] Specimen (Source) Anatomical Collection Method Collection Time Re ceived Time Location / / Volume Laterality 09/03/2021 09/04/2021 3:48 PM CDT Narrative [facility] - 09/04/2021 Unless otherwise specified, test(s) performed at: [facility], [address] [place] [id number] CUSTOMER SERVICE CONSULTANT: Yoseph Rose M.D. For any questions, please call customer service at FREQUENCY:OTHER Resulting Agency Comment Specimen source: Blood López Mariano MD LAB BLOOD ORDERABLES Performing Organization Address City/State/ZIP Code Phon e Number [facility] documented in this encounter Visit Diagnoses Not on filedocumented in this encounter
--- OUTSIDE RECORDS SUMMARY | 2021-12-28 14:06 | XMS_ITS | Encounter Summary ---
:1965 Author Organization [facility] Address [address] [place] [address] Care Team Providers Name Role Phone Unavailable Primary Care Provider Unavailable Encounter Details Date Type Department Care Team Description 12/10/2021 Treatment [facility] López Awad MD [address] [place], [place] [phone] (Wo rk) Social History Tobacco Use Types Packs/Day Years Used Date Smoking Tobacco: Never Assessed Sex Assigned at Date Recorded Not on file documented as of this encounter Miscellaneous Notes Dialysis Note - López Mariano MD - 12/10/2021 3:10 PM CDT Date: Dec 10, 2021 Patient Name: Stephanie Norman : 1965 Chart #: [id number] Sex: F This patient was personally seen for a basic visit as part of routine weekly dialysis care. A reviewof the dialysis treatment, blood pressure, estimated dry weight and recent lab values was made. These were discussed with the patient and staff as necessary. Treatment Data for 12/10/2021 started at:11:21 AM Dialyzer: 180NRe Optiflux Na: 137 mEq/L Bicarb: 31 mEq/L Dialysate: 2.0 K, 2.5 Ca, 1.0 Mg, 100 Dextrose (G2251) Dialysate/Machine Temp (prescribed): 37 C Dialysate/Machine Temp (actual): 36.6 C BFR (prescribed): 400 BFR (actual): 400 Prescribed time: 03:30 EDW: 91 kg Access Type: Pre Dialysis Vitals (for 12/10/2021 11:13 AM ) Pre BP (sit): 127/64 Pre Wt: 95.1 kg Temp: 96 F Post Dialysis Vitals (for 12/08/2021 9:01 AM ) Post BP (sit): 110/61 Post Wt: 92.6 kg Current Dialysis Vitals (for 12/10/2021 2:48 PM ) BP (sit): 102/41 AP(-) / TOOL GRINDER OPERATOR SURFACE: 214/198 Pulse: 69 Chairside data as of 12/10/2021 2:48 PM Last 3 Treatments 12/08/2021 12/05/2021 12/03/2021 EDW (kg) 91 91 91 Weight Pre (kg) 95.1 94.3 94.3 Weight Post (kg) 92.6 91.1 91.9 Dialytic Weight Loss (kg) -2.5 -3.2 -2.4 EDW Deviation (kg) 1.6 0.1 0.9 BP Sit Pre 138/61 120/39 124/67 BP Sit Post 110/61 109/61 114/63 UF Rate (mL/kg/hr) 8 10 8 Prescribed BFR 400 400 400 Average Delivered BFR 400 450 450 Prescribed Treatment Time 03:30 03:30 03:30 Actual Treatment Time 03:33 03:31 03:30 SUPERINTENDENT OPERATING: López Mariano MD LOCATION: [phone] SCHEDULE: - 2nd Shift ACCESS: EDW: kg. DIALYZER: HD DURATION: NEEDLE SIZE: ANTICOAG: BATH: QB: ml/min QD: ml/min Subjective No new complaints. 12/10/21: She threw out my back last David, got up from seated position and sudden pain. Getting slowly better, has appt with chiropractor this afternoon after dialysis. Otherwise she feels excellentand has no concerns with dialysis as sessions have been going very well. 11/26/21: She feels like she has a cyst that needs to rupture in liver, RUQ pain and hurts to touch but no rebound. No fever or chills. NO blood in urine. It started last night. Also has been having higher fluid gains, eating more food and some with high fluid content. 11/12: She feels well. Very minor cramping end of treatment only for a couple minutes. Restless leg during treatment has essentially resolved. No concerns today. 10/29/21: She feels excellent. 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 She is [...] edema, cramps or any other symptoms. 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 05/21/21: Stephanie is feeling well today. She feels hemo is going really well. 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 She denies CP, SOB, edema. 05/14/21: [...] Wednesday. 02/12/21: She saw gen surgery at [facility], sending her up to [facility] to see Dr. Hudson given PKD and future tx and [place] nephrectomies possible. She is liking HD, thinks [...] get to run. PCAD placed yesterday [place] [facility], fistulagram now with open access. This is its first use. She is feeling well. Would like to go back to [place] if possible. Advanced Practitioner Subjective: Review of Systems None reported. Problem List Description ICD9 Code ICD10 Code Autosomal dominant polycystic kidney disease Q61.3 End stage renal disease 585.6 N18.6 Dependence on renal dialysis V45.11 Z99.2 Anemia in end stage renal disease D63.1 N18.6 Hyperparathyroidism due to renal insufficiency 588.81 N25.81 Hypertensive disorder 401.9 I10 Exam Respiratory - Clear to auscultation bilaterally. nl effort Cardiovascular Regular rate. Edema - No leg edema. Access - AVF in LUE upper arm good t/b Medication List Medication Sig Start Date aspirin [...] Medications reviewed and no changes were made. BUN mg/dL 53 (11/19/21) 57 (10/22/21) 60 (09/17/21) 49 (08/20/21) 49 (08/01/21) UREA NITROGEN (MG/DL) IN SER/PLAS - POST DIALYSIS mg/dL 14 (11/19/21) 12 (10/22/21) 15 (09/17/21) 13 (08/20/21) 13 (08/01/21) URR % 74 (11/19/21) 79 (10/22/21) 75 (09/17/21) 73 (08/20/21) 73 (08/01/21) spKt/V Gotch 1.63 (11/19/21) 1.91 (10/22/21) 1.65 (09/17/21) 1.6 (08/20/21) 1.56 (08/01/21) eKdrt/V 1.38 (11/19/21) 1.62 (10/22/21) 1.4 (09/17/21) 1.36 (08/20/21) 1.32 (08/01/21) spKt/V (Daugirdas II) 1.5400 (11/19/21) 1.8200 (10/22/21) 1.5900 (09/17/21) 1.5500 (08/20/21) 1.5100 (08/01/21) HEMOGLOBIN (G/DL) IN BLOOD g/dL 12.4 (12/03/21) 12.0 (11/26/21) 12.2 (11/19/21) 11.9 (11/12/21) 12.1 (11/05/21) PLATELETS 1000/mcL 228 (11/19/21) 207 (10/22/21) 220 (09/17/21) 201 (08/20/21) 228 (06/18/21) IRON SATURATION % 18 (09/17/21) 27 (08/20/21) 19 (07/23/21) 23 (06/18/21) 29 (05/21/21) FERRITIN ng/mL 1140 (10/22/21) 516 (07/23/21) 783 (06/25/21) 868 (04/23/21) 744 (03/26/21) ALBUMIN (G/DL) g/dL 4.3 (11/19/21) 4.2 (10/22/21) 4.3 (09/17/21) Sodium mEq/L 137 (11/19/21) 135 (10/22/21) 137 (09/17/21) POTASSIUM (MMOL/L) IN SER/PLAS mEq/L 4.9 (11/19/21) 5.1 (10/22/21) 5.1 (09/17/21) BICARBONATE (CO2) mEq/L 24 (11/19/21) 24 (10/22/21) 24 (09/17/21) 25 OH VITAMIN D ng/mL 11.6 (04/24/20) 19.9 (04/21/19) 25.6 (02/20/19) BUN/CREATININE (MASS RATIO) IN SER/PLAS 5.8 (11/19/21) 6.3 (10/22/21) 6.5 (09/17/21) GLUCOSE (MG/DL) IN SER/PLAS mg/dL 82 (05/08/19) VOLUME OF URINE mL 300 (12/18/20) 300 (10/23/20) 300 (10/09/20) CALCIUM mg/dL 9.3 (11/19/21) 9.4 (10/22/21) 9.5 (09/17/21) Calcium Phos Product 43 (11/19/21) 51 (10/22/21) 46 (09/17/21) CALCIUM (MG/DL) CORRECTED FOR ALBUMIN IN SER/PLAS mg/dL 9.1 (11/19/21) 9.2 (10/22/21) 9.3 (09/17/21) PHOSPHATE (MG/DL) IN SER/PLAS mg/dL 4.6 (11/19/21) 5.4 (10/22/21) 4.8 (09/17/21) IPTH pg/mL 623 (10/22/21) 370 (07/23/21) 283 (04/23/21) Vascular Access Assessment: Type of access: Fistula Fistulagram 12/2020 patent and no stenosis. Working well now was of 02/2021 Impression and Plan Stable dialysis, no changes today Working on quitting smoking Active on transplant list López Mariano MD [ Signed And locked electronically On 12/10/2021 at 03:11:13 PM ] Transcribed: López Mariano ( 12/10/2021 ) documented in this encounter Plan of Treatment Not on filedocumented as of this encounter Visit Diagnoses Not on filedocumented in this encounter
--- OUTSIDE RECORDS SUMMARY | 2021-12-28 14:06 | XMS_ITS | Encounter Summary ---
:1965 Author Organization [facility] Address [address] [place] [address] Care Team Providers Name Role Phone Unavailable Primary Care Provider Unavailable Encounter Details Date Type Department Care Team Description 07/16/2021 Orders Only [facility] O f López Awad MD [phone] [facility] [address] [place], [place] [phone] (Wo rk) Social History Tobacco Use Types Packs/Day Years Used Date Smoking Tobacco: Never Assessed Sex Assigned at Date Recorded Not on file documented as of this encounter Plan of Treatment Not on filedocumented as of this encounter Procedures Procedure Name Priority Date/Time Associated Diagnosis Comme nts HEMATOLOGY Routine 07/16/2021 Results for thi s procedure are in the resu lts section. documented in this encounter Results (ABNORMAL) HEMATOLOGY (07/16/2021) Analysis Performed At Patho logist Time Signature Hemoglobin 11.5 (L) 12.0 - [facility] 16.0 g/dL [facility] Hemoglobin x 3 34.5 (L) 36.0 - [facility] 48.0 % [facility] Specimen (Source) Anatomical Collection Method Collection Time Re ceived Time Location / / Volume Laterality 07/16/2021 07/17/2021 12:1 2 PM CDT Narrative [facility] - 07/17/2021 Unless otherwise specified, test(s) performed at: [facility], [address] [place] [address] LOSS CONTROL ENGINEER: Yoseph Rose M.D. For any questions, please call customer service at FREQUENCY:OTHER Resulting Agency Comment Specimen source: Blood López Mariano MD LAB BLOOD ORDERABLES Performing Organization Address City/State/ZIP Code Phon e Number [facility] documented in this encounter Visit Diagnoses Not on filedocumented in this encounter
--- OUTSIDE RECORDS SUMMARY | 2021-12-28 14:06 | XMS_ITS | Encounter Summary ---
:1965 Author Organization [facility] Address [address] [place] [address] Care Team Providers Name Role Phone Unavailable Primary Care Provider Unavailable Encounter Details Date Type Department Care Team Description 10/08/2021 Orders Only [facility] O f Lpóez Awad MD [address] [facility] [address] [place], [place] [phone] (Wo rk) Social History Tobacco Use Types Packs/Day Years Used Date Smoking Tobacco: Never Assessed Sex Assigned at Date Recorded Not on file documented as of this encounter Plan of Treatment Not on filedocumented as of this encounter Procedures Procedure Name Priority Date/Time Associated Diagnosis Comme nts HEMATOLOGY Routine 10/08/2021 Results for thi s procedure are in the resu lts section. documented in this encounter Results (ABNORMAL) HEMATOLOGY (10/08/2021) Analysis Performed At Patho logist Time Signature Hemoglobin 11.3 (L) 12.0 - [facility] 16.0 g/dL [facility] Hemoglobin x 3 33.9 (L) 36.0 - [facility] 48.0 % [facility] Specimen (Source) Anatomical Collection Method Collection Time Re ceived Time Location / / Volume Laterality 10/08/2021 10/09/2021 1:30 PM CDT Narrative [facility] - 10/09/2021 Unless otherwise specified, test(s) performed at: [facility], [address] [place] [address] BILINGUAL ADMINISTRATIVE ASSISTANT: Yoseph Rose M.D. For any questions, please call customer service at FREQUENCY:OTHER Resulting Agency Comment Specimen source: Blood López Mariano MD LAB BLOOD ORDERABLES Performing Organization Address City/State/ZIP Code Phon e Number [facility] documented in this encounter Visit Diagnoses Not on filedocumented in this encounter
--- OUTSIDE RECORDS SUMMARY | 2021-12-28 14:06 | XMS_ITS | Encounter Summary ---
:1965 Author Organization [facility] Address [address] [place] [address] Care Team Providers Name Role Phone Unavailable Primary Care Provider Unavailable Encounter Details Date Type Department Care Team Description 11/26/2021 Treatment [facility] f López Awad MD [address] [place], [place] [phone] (Wo rk) Social History Tobacco Use Types Packs/Day Years Used Date Smoking Tobacco: Never Assessed Sex Assigned at Date Recorded Not on file documented as of this encounter Miscellaneous Notes Dialysis Note - López Mariano MD - 11/26/2021 12:47 PM CDT Date: Nov 26, 2021 Patient Name: Stephanie Norman : 1965 Chart #: [id number] Sex: F This patient was personally seen for a complete visit as part of routine monthly dialysis care. A review of the dialysis treatment, blood pressure, estimated dry weight and recent lab values was made. These were discussed with the patient and staff as necessary. Treatment Data for 11/26/2021 started at:11:26 AM Dialyzer: 180NRe Optiflux Na: 137 mEq/L Bicarb: 31 mEq/L Dialysate: 2.0 K, 2.5 Ca, 1.0 Mg, 100 Dextrose (G2251) Dialysate/Machine Temp (prescribed): 37 C Dialysate/Machine Temp (actual): 37.4 C BFR (prescribed): 400 BFR (actual): 450 Prescribed time: 03:30 EDW: 91 kg Access Type: Active (In Use):AVFistula-Standard/Left Upper Arm Pre Dialysis Vitals (for 11/26/2021 11:19 AM ) Pre BP (sit): 133/67 Pre Wt: 95.8 kg Temp: 97.4 F Post Dialysis Vitals (for 11/24/2021 2:49 PM ) Post BP (sit): 116/61 Post Wt: 93.4 kg Current Dialysis Vitals (for 11/26/2021 12:31 PM ) BP (sit): 112/59 AP(-) / CORRUGATED FASTENER DRIVER: 214/210 Pulse: 67 Chairside data as of 11/26/2021 12:31 PM Last 3 Treatments 11/24/2021 11/21/2021 11/19/2021 EDW (kg) 91 91 91 Weight Pre (kg) 96 94.6 94.8 Weight Post (kg) 93.4 92.1 92.3 Dialytic Weight Loss (kg) -2.6 -2.5 -2.5 EDW Deviation (kg) 2.4 1.1 1.3 BP Sit Pre 129/65 128/66 124/38 BP Sit Post 116/61 113/68 116/61 UF Rate (mL/kg/hr) 8 8 8 Prescribed BFR 400 400 400 Average Delivered BFR 400 400 440 Prescribed Treatment Time 03:30 03:30 03:30 Actual Treatment Time 03:30 03:33 03:30 Last 3 Values 09/26/2021 06/27/2021 05/23/2021 Access Flow > 2000 1712 1715 Treatment Medication Orders Medication Sig Start Date End Date Heparin Sodium (Porcine) 1,000 Units/mL Systemic 4000 units IVP Every Treatment 02/26/2021 02/25/2022 Heparin Sodium (Porcine) 1,000 Units/mL Systemic 2000 units IVP Every Treatment 02/26/2021 02/25/2022 Iron Sucrose (Venofer) 50 mg IVP 1X Week 11/10/2021 11/09/2022 Vitamin D (Calcitriol) Oral 0.50 mcg ORAL Every Treatment 10/27/2021 10/26/2022 CREW PERSON: López Mariano MD LOCATION: [phone] SCHEDULE: M-W-F 2nd Shift EDW: kg. DIALYZER: HD DURATION: NEEDLE SIZE: ANTICOAG: BATH: QB: ml/min QD: ml/min Subjective No new complaints. 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 She is [...] edema, cramps or any other symptoms. 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 05/21/21: Stephanie is feeling well today. She feels hemo is going really well. 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 She denies CP, SOB, edema. 05/14/21: [...] Wednesday. 02/12/21: She saw gen surgery at [facility], sending her up to [place] to see Dr. Hudson given PKD and future tx and [place] nephrectomies possible. She is liking HD, thinks [...] get to run. [place] [facility] [place] [facility], fistulagram now with open access. This is [...] effort Cardiovascular - Regular rate. Regular rhythm. No murmur heard. Edema - Trace edema. Access - AVF without aneurysms, 2 [...] made. Treatment and Adequacy Assessment BUN mg/dL 53 (11/19/21) 57 (10/22/21) 60 [...] (10/22/21) 1.5900 (09/17/21) 1.5500 (08/20/21) 1.5100 (08/01/21) Dialysis is adequate. Achieves prescribed time - Yes Achieves prescribed frequency - Yes Continue current prescription. Vascular Access Assessment Type of access: Fistula Fistulagram 12/2020 patent and no stenosis. Working well now was of 02/2021 Anemia Assessment HEMOGLOBIN (G/DL) IN BLOOD g/dL 12.2 (11/19/21) 11.9 (11/12/21) 12.1 (11/05/21) 12.1 (10/29/21) 11.1 (10/22/21) PLATELETS 1000/mcL 228 (11/19/21) 207 (10/22/21) 220 [...] and Metabolic Assessment ALBUMIN (G/DL) g/dL 4.3 (11/19/21) 4.2 (10/22/21) 4.3 (09/17/21) 4.2 (08/20/21) 4.3 (07/23/21) Sodium mEq/L 137 (11/19/21) 135 (10/22/21) 137 (09/17/21) 136 (08/20/21) 136 (07/23/21) POTASSIUM (MMOL/L) IN SER/PLAS mEq/L 4.9 (11/19/21) 5.1 (10/22/21) 5.1 (09/17/21) 4.7 (08/20/21) 5.1 (07/23/21) BICARBONATE (CO2) mEq/L 24 (11/19/21) 24 (10/22/21) 24 (09/17/21) 24 (08/20/21) 21 (07/23/21) Albumin is at goal. Encourage high-biological value protein intake. Potassium is at goal. Bicarbonate is at goal. Continue same bicarbonate in dialysate. Bone and Mineral Metabolism Assessment CALCIUM mg/dL 9.3 (11/19/21) 9.4 (10/22/21) 9.5 (09/17/21) 9.0 (08/20/21) 9.4 (07/23/21) CALCIUM (MG/DL) CORRECTED FOR ALBUMIN IN SER/PLAS mg/dL 9.1 (11/19/21) 9.2 (10/22/21) 9.3 (09/17/21) 8.8 (08/20/21) 9.2 (07/23/21) PHOSPHATE (MG/DL) IN SER/PLAS mg/dL 4.6 (11/19/21) 5.4 (10/22/21) 4.8 (09/17/21) 4.8 (08/20/21) 4.4 (07/23/21) CALCIUM PHOSPHORUS PRODUCT, COR 42 (11/19/21) 50 (10/22/21) 45 (09/17/21) 42 (08/20/21) 40 (07/23/21) IPTH pg/mL 623 (10/22/21) 370 (07/23/21) 283 (04/23/21) 342 (03/19/21) 398 (03/03/21) Corrected Calcium is at goal. Phosphorous is at goal. Intact PTH is above goal. Hairspring Assembler will adjust binders and vitamin D per protocol and continue to provide dietary education. Calcitriol increased Cardiovascular Assessment Blood pressures reviewed and are acceptable. Intradialytic weight gains are appropriate. Estimated dry weight is appropriate. Transplant Status: Patient is on transplant list. [facility] Now listed for Transplant at [facility] as of Apr 2021! Resuscitation Status Stable dialysis, no change in prescription She will monitor RUQ pain, if no resolution or if new symptoms like fever or chills or severe pain then will see PCP before end of week and may need abdominal imaging López Mariano MD [ Signed And locked electronically On 11/26/2021 at 12:49:51 PM ] Transcribed: López Mariano ( 11/26/2021 ) documented in this encounter Plan of Treatment Not on filedocumented as of this encounter Visit Diagnoses Not on filedocumented in this encounter
--- OUTSIDE RECORDS SUMMARY | 2021-12-28 14:06 | XMS_ITS | Encounter Summary ---
:1965 Author Organization [facility] Address [address] [place] [address] Care Team Providers Name Role Phone Unavailable Primary Care Provider Unavailable Encounter Details Date Type Department Care Team Description 12/03/2021 Orders Only [facility] O f López Awad MD [phone] [place] [address] [place], [place] [phone] (Wo rk) Social History Tobacco Use Types Packs/Day Years Used Date Smoking Tobacco: Never Assessed Sex Assigned at Date Recorded Not on file documented as of this encounter Plan of Treatment Not on filedocumented as of this encounter Procedures Procedure Name Priority Date/Time Associated Diagnosis Comme nts HEMATOLOGY Routine 12/03/2021 Results for thi s procedure are in the resu lts section. documented in this encounter Results HEMATOLOGY (12/03/2021) P athologist Signature Hemoglobin 12.4 12.0 - [facility] 16.0 g/dL [facility] Hemoglobin x 3 37.2 36.0 - [facility] 48.0 % [facility] Specimen (Source) Anatomical Collection Method Collection Time Re ceived Time Location / / Volume Laterality 12/03/2021 12/04/2021 6:44 AM CDT Narrative [facility] - 12/04/2021 Unless otherwise specified, test(s) performed at: [facility], [address] [place] [address], [place] [address] ZOO CARETAKER: John Hernandez M.D., Ph.D For any questions, please call customer service at FREQUENCY:OTHER Resulting Agency Comment Specimen source: Blood López Mariano MD LAB BLOOD ORDERABLES Performing Organization Address City/State/ZIP Code Phon e Number [facility] documented in this encounter Visit Diagnoses Not on filedocumented in this encounter
--- OUTSIDE RECORDS SUMMARY | 2021-12-28 14:06 | XMS_ITS | Encounter Summary ---
:1965 Author Organization [facility] Address [address] [place] [address] Care Team Providers Name Role Phone Unavailable Primary Care Provider Unavailable Encounter Details Date Type Department Care Team Description 06/25/2021 Treatment [facility] López Awad MD [address] [place], [place] [phone] (Wo rk) Social History Tobacco Use Types Packs/Day Years Used Date Smoking Tobacco: Never Assessed Sex Assigned at Date Recorded Not on file documented as of this encounter Miscellaneous Notes Dialysis Note - López Mariano MD - 06/25/2021 1:36 PM CST Date: Jun 25, 2021 Patient Name: Stephanie Norman : 1965 Chart #: [id number] Sex: F This patient was personally seen for a complete visit as part of routine monthly dialysis care. A review of the dialysis treatment, blood pressure, estimated dry weight and recent lab values was made. These were discussed with the patient and staff as necessary. Treatment Data for 06/25/2021 started at:11:27 AM Dialyzer: 180NRe Optiflux Na: 137 mEq/L Bicarb: 31 mEq/L Dialysate: 2.0 K, 2.25 Ca, 1.0 Mg, 100 Dextrose (G2231) Dialysate/Machine Temp (prescribed): 37 C Dialysate/Machine Temp (actual): 36.5 C BFR (prescribed): 400 BFR (actual): 400 Prescribed time: 03:30 EDW: 89 kg Access Type: Active (In Use):AVFistula-Standard/Left Upper Arm Pre Dialysis Vitals (for 06/25/2021 11:19 AM ) Pre BP (sit): 155/68 Pre Wt: 91.9 kg Temp: 96 F Post Dialysis Vitals (for 06/23/2021 2:53 PM ) Post BP (sit): 121/63 Post Wt: 90.1 kg Current Dialysis Vitals (for 06/25/2021 1:32 PM ) BP (sit): 118/61 AP(-) / CHECKOUT OPERATOR: 165/177 Pulse: 60 Chairside data as of 06/25/2021 1:32 PM Last 3 Treatments 06/23/2021 06/20/2021 06/18/2021 EDW (kg) 89 89 89 Weight Pre (kg) 92.5 92.3 93.5 Weight Post (kg) 90.1 90 90.9 Dialytic Weight Loss (kg) -2.4 -2.3 -2.6 EDW Deviation (kg) 1.1 1 1.9 BP Sit Pre 142/73 148/76 138/62 BP Sit Post 121/63 122/62 126/57 UF Rate (mL/kg/hr) 8 7 8 Prescribed BFR 400 400 400 Average Delivered BFR 400 350 380 Prescribed Treatment Time 03:30 03:30 03:30 Actual Treatment Time 03:26 03:29 03:32 Last 1 Values 05/23/2021 Access Flow 1715 Treatment Medication Orders Medication Sig Start Date End Date Heparin Sodium (Porcine) 1,000 Units/mL Systemic 4000 units IVP Every Treatment 02/26/2021 02/25/2022 Heparin Sodium (Porcine) 1,000 Units/mL Systemic 2000 units IVP Every Treatment 02/26/2021 02/25/2022 Vitamin D (Calcitriol) Oral 0.25 mcg ORAL Every Treatment 2021 03/09/2022 NETTING INSPECTOR: López Mariano MD LOCATION: [phone] SCHEDULE: M-W- 2nd Shift EDW: kg. DIALYZER: HD DURATION: NEEDLE SIZE: ANTICOAG: BATH: QB: ml/min QD: ml/min Subjective No new complaints. 06/25/21: She feels excellent and has no concerns. She denies CP, SOB, edema, cramps or any other symptoms. 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 05/21/21: Stephanie is feeling well today. She feels hemo is going really well. 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 She denies CP, SOB, edema. 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 Access now working well, 3rd day with 2 needles and to advance needles on Wednesday. 02/12/21: She saw gen surgery at [facility], sending her up to [place] to see Dr. Hudson given PKD and future tx and [place] nephrectomies possible. She is liking HD, thinks [...] get to run. [place] [facility] fistulagram now with open access. This is [...] - No leg edema. Access - AVF good t/b and working well Medication List Medication Sig Start Date aspirin [...] made. Treatment and Adequacy Assessment BUN mg/dL 43 (06/18/21) 53 (05/21/21) 32 (04/23/21) 28 (03/19/21) 35 (02/26/21) UREA NITROGEN (MG/DL) IN SER/PLAS - POST DIALYSIS mg/dL 14 (06/18/21) 15 (05/21/21) 9 (04/23/21) 7 (03/19/21) 12 (02/26/21) URR % 67 (06/18/21) 72 (05/21/21) 72 (04/23/21) 75 (03/19/21) 66 (02/26/21) spKt/V Gotch 1.35 (06/18/21) 1.46 (05/21/21) 1.45 (04/23/21) 1.51 (03/19/21) 1.19 (02/26/21) eKdrt/V 1.15 (06/18/21) 1.24 (05/21/21) 1.4 (04/23/21) 1.46 (03/19/21) 1.13 (02/26/21) spKt/V (Daugirdas II) 1.3100 (06/18/21) 1.4300 (05/21/21) 1.4300 (04/23/21) 1.5100 (03/19/21) 1.1700 (02/26/21) Dialysis is adequate. Achieves prescribed time - Yes Achieves prescribed frequency - Yes Continue current prescription. 15g needles now and then kt/v should be >1.4 Vascular Access Assessment Type of access: Fistula Fistulagram 12/2020 patent and no stenosis. Working well now was of 02/2021 Anemia Assessment HEMOGLOBIN (G/DL) IN BLOOD g/dL 10.8 (06/18/21) 11.4 (06/11/21) 10.5 (06/04/21) 11.9 (05/28/21) 12.2 (05/21/21) PLATELETS 1000/mcL 228 (06/18/21) 237 (05/21/21) 234 (04/23/21) 242 (03/19/21) 261 (02/19/21) IRON SATURATION % 23 (06/18/21) 29 (05/21/21) 14 (04/23/21) 26 (03/19/21) 19 (02/19/21) FERRITIN ng/mL 868 (04/23/21) 744 (03/26/21) 479 (02/26/21) 486 (01/24/21) 592 (10/23/20) Hemoglobin is at goal. Iron Saturation is below goal. Ferritin is at goal. Will adjust FABIO and intravenous iron per protocol. Nutritional and Metabolic Assessment ALBUMIN (G/DL) g/dL 4.1 (06/18/21) 4.5 (05/21/21) 4.4 (04/23/21) 4.1 (03/19/21) 4.2 (02/19/21) Sodium mEq/L 138 (06/18/21) 136 (05/21/21) 137 (04/23/21) 136 (03/19/21) 137 (02/19/21) POTASSIUM (MMOL/L) IN SER/PLAS mEq/L 5.0 (06/18/21) 4.9 (05/21/21) 4.6 (04/23/21) 4.3 (03/19/21) 4.2 (02/19/21) BICARBONATE (CO2) mEq/L 25 (06/18/21) 26 (05/21/21) 27 (04/23/21) 26 (03/19/21) 27 (02/19/21) Albumin is at goal. Encourage high-biological value protein intake. Potassium is at goal. Bicarbonate is at goal. Continue same bicarbonate in dialysate. Bone and Mineral Metabolism Assessment Calcium mg/dL 9.2 (06/18/21) 9.7 (05/21/21) 9.7 (04/23/21) 9.2 (03/19/21) 9.4 (02/19/21) CALCIUM (MG/DL) CORRECTED FOR ALBUMIN IN SER/PLAS mg/dL 9.1 (06/18/21) 9.3 (05/21/21) 9.4 (04/23/21) 9.1 (03/19/21) 9.2 (02/19/21) PHOSPHATE (MG/DL) IN SER/PLAS mg/dL 3.9 (06/18/21) 4.2 (05/21/21) 3.7 (04/23/21) 3.8 (03/19/21) 3.7 (02/19/21) CALCIUM PHOSPHORUS PRODUCT, COR 35 (06/18/21) 39 (05/21/21) 35 (04/23/21) 35 (03/19/21) 34 (02/19/21) IPTH pg/mL 283 (04/23/21) 342 (03/19/21) 398 (03/03/21) 778 (01/29/21) 600 (01/24/21) Corrected Calcium is at goal. Phosphorous is at goal. Intact PTH is at goal. Assistive Technology Trainer will adjust binders and vitamin D per protocol and continue to provide dietary education. Cardiovascular Assessment Blood pressures reviewed and are acceptable. Intradialytic weight gains are appropriate. Estimated dry weight is appropriate. Transplant Status: Patient is on transplant list. [facility] Now listed for Transplant at [facility] as of Apr 2021! Resuscitation Status Stable dialysis, no change in prescription López Mariano MD [ Signed And locked electronically On 06/25/2021 at 01:38:00 PM ] Transcribed: López Mariano ( 06/25/2021 ) documented in this encounter Plan of Treatment Not on filedocumented as of this encounter Visit Diagnoses Not on filedocumented in this encounter
--- OUTSIDE RECORDS SUMMARY | 2021-12-28 14:06 | XMS_ITS | Encounter Summary ---
:1965 Author Organization [facility] Address [address] [place] [address] Care Team Providers Name Role Phone Unavailable Primary Care Provider Unavailable Encounter Details Date Type Department Care Team Description 09/10/2021 Treatment [facility] López Awad MD [address] [place], [place] [phone] (Wo rk) Social History Tobacco Use Types Packs/Day Years Used Date Smoking Tobacco: Never Assessed Sex Assigned at Date Recorded Not on file documented as of this encounter Miscellaneous Notes Dialysis Note - López Mariano MD - 09/10/2021 12:58 PM CDT Date: September 10, 2021 Patient Name: Stephanie Norman : 1965 Chart #: [id number] Sex: F This patient was personally seen for a basic visit as part of routine weekly dialysis care. A reviewof the dialysis treatment, blood pressure, estimated dry weight and recent lab values was made. These were discussed with the patient and staff as necessary. Treatment Data for 09/10/2021 started at:11:36 AM Dialyzer: 180NRe Optiflux Na: 137 mEq/L Bicarb: 31 mEq/L Dialysate: 2.0 K, 2.25 Ca, 1.0 Mg, 100 Dextrose (G2231) Dialysate/Machine Temp (prescribed): 37 C Dialysate/Machine Temp (actual): 36.8 C BFR (prescribed): 400 BFR (actual): 450 Prescribed time: 03:30 EDW: 91 kg Access Type: Active (In Use):AVFistula-Standard/Left Upper Arm Pre Dialysis Vitals (for 09/10/2021 11:22 AM ) Pre BP (sit): 129/68 Pre Wt: 94.1 kg Temp: 97.7 F Post Dialysis Vitals (for 09/08/2021 3:04 PM ) Post BP (sit): 121/34 Post Wt: 91.8 kg Current Dialysis Vitals (for 09/10/2021 12:34 PM ) BP (sit): 104/53 AP(-) / FISH AND WILDLIFE TECHNICIAN: 201/189 Pulse: 70 Chairside data as of 09/10/2021 12:34 PM Last 3 Treatments 09/08/2021 09/05/2021 09/03/2021 EDW (kg) 91 91 91 Weight Pre (kg) 94.2 93.7 93.6 Weight Post (kg) 91.8 91 91.2 Dialytic Weight Loss (kg) -2.4 -2.7 -2.4 EDW Deviation (kg) 0.8 0 0.2 BP Sit Pre 143/74 131/65 118/56 BP Sit Post 121/34 108/50 126/67 UF Rate (mL/kg/hr) 7 10 7 Prescribed BFR 400 400 400 Average Delivered BFR 420 450 450 Prescribed Treatment Time 03:30 03:30 03:30 Actual Treatment Time 03:32 03:06 03:31 Last 2 Values 06/27/2021 05/23/2021 Access Flow 1712 1718 Treatment Medication Orders Medication Sig Start Date End Date Heparin Sodium (Porcine) 1,000 Units/mL Systemic 4000 units IVP Every Treatment 02/26/2021 02/25/2022 Heparin Sodium (Porcine) 1,000 Units/mL Systemic 2000 units IVP Every Treatment 02/26/2021 02/25/2022 Vitamin D (Calcitriol) Oral 0.25 mcg ORAL Every Treatment 2021 03/09/2022 MARKET MASTER: López Mariano MD LOCATION: [place] [phone] SCHEDULE: -- 2nd Shift ACCESS: EDW: kg. DIALYZER: HD DURATION: NEEDLE SIZE: ANTICOAG: BATH: QB: ml/min QD: ml/min Subjective No new complaints. 09/10/21: Stephanie feels well, denies CP or [...] Wednesday. 02/12/21: She saw gen surgery at [facility], sending her up to [place] to see Dr. Hudson given PKD and future tx and [place] nephrectomies possible. She is liking HD, thinks [...] to run. [place] [facility] [place] now with open access. This [...] Respiratory - Clear to auscultation bilaterally. Cardiovascular Regular rate. Regular rhythm. No murmur heard. [...] and no changes were made. BUN mg/dL 49 (08/20/21) 49 (08/01/21) 59 (07/23/21) 46 (06/25/21) 43 (06/18/21) UREA NITROGEN (MG/DL) IN SER/PLAS - POST DIALYSIS mg/dL 13 (08/20/21) 13 (08/01/21) 18 (07/23/21) 13 (06/25/21) 14 (06/18/21) URR % 73 (08/20/21) 73 (08/01/21) 69 (07/23/21) 72 (06/25/21) 67 (06/18/21) spKt/V Gotch 1.6 (08/20/21) 1.56 (08/01/21) 1.4 (07/23/21) 1.52 (06/25/21) 1.35 (06/18/21) eKdrt/V 1.36 (08/20/21) 1.32 (08/01/21) 1.19 (07/23/21) 1.29 (06/25/21) 1.15 (06/18/21) spKt/V (Daugirdas II) 1.5500 (08/20/21) 1.5100 (08/01/21) 1.3700 (07/23/21) 1.4700 (06/25/21) 1.3100 (06/18/21) HEMOGLOBIN (G/DL) IN BLOOD g/dL 11.2 (09/03/21) 11.3 (08/27/21) 10.9 (08/20/21) 11.1 (08/13/21) 10.9 (08/06/21) PLATELETS 1000/mcL 201 (08/20/21) 228 (06/18/21) 237 (05/21/21) 234 (04/23/21) 242 (03/19/21) IRON SATURATION % 27 (08/20/21) 19 (07/23/21) 23 (06/18/21) 29 (05/21/21) 14 (04/23/21) FERRITIN ng/mL 516 (07/23/21) 783 (06/25/21) 868 (04/23/21) 744 (03/26/21) 479 (02/26/21) ALBUMIN (G/DL) g/dL 4.2 (08/20/21) 4.3 (07/23/21) 4.1 (06/18/21) Sodium mEq/L 136 (08/20/21) 136 (07/23/21) 138 (06/18/21) POTASSIUM (MMOL/L) IN SER/PLAS mEq/L 4.7 (08/20/21) 5.1 (07/23/21) 5.0 (06/18/21) BICARBONATE (CO2) mEq/L 24 (08/20/21) 21 (07/23/21) 25 (06/18/21) 25 OH VITAMIN D ng/mL 11.6 (04/24/20) 19.9 (04/21/19) 25.6 (02/20/19) BUN/CREATININE (MASS RATIO) IN SER/PLAS 6.1 (08/20/21) 7.8 (07/23/21) 5.8 (06/18/21) GLUCOSE (MG/DL) IN SER/PLAS mg/dL 82 (05/08/19) VOLUME OF URINE mL 300 (12/18/20) 300 (10/23/20) 300 (10/09/20) Calcium mg/dL 9.0 (08/20/21) 9.4 (07/23/21) 9.2 (06/18/21) Calcium Phos Product 43 (08/20/21) 41 (07/23/21) 36 (06/18/21) CALCIUM (MG/DL) CORRECTED FOR ALBUMIN IN SER/PLAS mg/dL 8.8 (08/20/21) 9.2 (07/23/21) 9.1 (06/18/21) PHOSPHATE (MG/DL) IN SER/PLAS mg/dL 4.8 (08/20/21) 4.4 (07/23/21) 3.9 (06/18/21) IPTH pg/mL 370 (07/23/21) 283 (04/23/21) 342 (03/19/21) Vascular Access Assessment: Type of access: Fistula Fistulagram 12/2020 patent and no stenosis. Working well now was of 02/2021 Impression and Plan Stable dialysis, no changes today López Mariano MD [ Signed And locked electronically On 09/10/2021 at 12:58:36 PM ] Transcribed: López Mariano ( 09/10/2021 ) documented in this encounter Plan of Treatment Not on filedocumented as of this encounter Visit Diagnoses Not on filedocumented in this encounter
--- OUTSIDE RECORDS SUMMARY | 2021-12-28 14:06 | XMS_ITS | Encounter Summary ---
:1965 Author Organization [facility] Address [address] [place] [address] Care Team Providers Name Role Phone Unavailable Primary Care Provider Unavailable Encounter Details Date Type Department Care Team Description 07/30/2021 Treatment [facility] López Awad MD [address] [place], [place] [phone] (Wo rk) Social History Tobacco Use Types Packs/Day Years Used Date Smoking Tobacco: Never Assessed Sex Assigned at Date Recorded Not on file documented as of this encounter Miscellaneous Notes Dialysis Note - López Mariano MD - 07/30/2021 3:14 PM CDT Date: Jul 30, 2021 Patient Name: Stephanie Norman : 1965 Chart #: [id number] Sex: F This patient was personally seen for a complete visit as part of routine monthly dialysis care. A review of the dialysis treatment, blood pressure, estimated dry weight and recent lab values was made. These were discussed with the patient and staff as necessary. Treatment Data for 07/30/2021 started at:11:31 AM Dialyzer: 180NRe Optiflux Na: 137 mEq/L Bicarb: 31 mEq/L Dialysate: 2.0 K, 2.25 Ca, 1.0 Mg, 100 Dextrose (G2231) Dialysate/Machine Temp (prescribed): 37 C Dialysate/Machine Temp (actual): 37.1 C BFR (prescribed): 400 BFR (actual): n/a Prescribed time: 03:30 EDW: 90 kg Access Type: Active (In Use):AVFistula-Standard/Left Upper Arm Pre Dialysis Vitals (for 07/30/2021 11:23 AM ) Pre BP (sit): 127/68 Pre Wt: 94.3 kg Temp: 96 F Post Dialysis Vitals (for 07/28/2021 3:03 PM ) Post BP (sit): 127/68 Post Wt: 92 kg Current Dialysis Vitals (for 07/30/2021 3:01 PM ) BP (sit): 103/49 AP(-) / GAS DISPENSER: n/a Pulse: 72 Chairside data as of 07/30/2021 3:01 PM Last 3 Treatments 07/28/2021 07/25/2021 07/23/2021 EDW (kg) 90 90 90 Weight Pre (kg) 94.9 93 93.7 Weight Post (kg) 92 91.1 91.1 Dialytic Weight Loss (kg) -2.9 -1.9 -2.6 EDW Deviation (kg) 2 1.1 1.1 BP Sit Pre 151/72 128/65 138/73 BP Sit Post 127/68 115/66 122/61 UF Rate (mL/kg/hr) 9 6 8 Prescribed BFR 400 400 400 Average Delivered BFR 440 400 400 Prescribed Treatment Time 03:30 03:30 03:30 Actual Treatment Time 03:33 03:31 03:30 Last 2 Values 06/27/2021 05/23/2021 Access Flow 1712 1710 Treatment Medication Orders Medication Sig Start Date End Date Heparin Sodium (Porcine) 1,000 Units/mL Systemic 4000 units IVP Every Treatment 02/26/2021 02/25/2022 Heparin Sodium (Porcine) 1,000 Units/mL Systemic 2000 units IVP Every Treatment 02/26/2021 02/25/2022 Vitamin D (Calcitriol) Oral 0.25 mcg ORAL Every Treatment 2021 03/09/2022 ASSISTANT STORE LEADER: López Mariano MD LOCATION: [phone] SCHEDULE: -- 2nd Shift EDW: kg. DIALYZER: HD DURATION: NEEDLE SIZE: ANTICOAG: BATH: QB: ml/min QD: ml/min Subjective No new complaints. 07/30/21: No recent issues, tolerating dialysis well. BP's adequate. Needs to increase EDW. 07/09/21: Her appetite has been voracious recently, food tastes good again. BP low with trying to reach EDW. She feels excellent. 06/25/21: She feels excellent and has no concerns. She denies CP, SOB, edema, cramps or any other symptoms. 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 05/21/21: Stephanie is feeling well today. She feels hemo is going really well. 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 She denies CP, SOB, edema. 05/14/21: [...] Wednesday. 02/12/21: She saw gen surgery at [facility], sending her up to [place] [facility] [address] Hudson given PKD and future tx and [place] nephrectomies possible. She is liking HD, thinks [...] get to run. [facility] placed yesterday at [facility], fistulagram now with open access. This is [...] - nl effort Cardiovascular - Regular rate. Edema - No leg edema. [...] made. Treatment and Adequacy Assessment BUN mg/dL 59 (07/23/21) 46 (06/25/21) 43 (06/18/21) 53 (05/21/21) 32 (04/23/21) UREA NITROGEN (MG/DL) IN SER/PLAS - POST DIALYSIS mg/dL 18 (07/23/21) 13 (06/25/21) 14 (06/18/21) 15 (05/21/21) 9 (04/23/21) URR % 69 (07/23/21) 72 (06/25/21) 67 (06/18/21) 72 (05/21/21) 72 (04/23/21) spKt/V Gotch 1.52 (06/25/21) 1.35 (06/18/21) 1.46 (05/21/21) 1.45 (04/23/21) 1.51 (03/19/21) eKdrt/V 1.29 (06/25/21) 1.15 (06/18/21) 1.24 (05/21/21) 1.4 (04/23/21) 1.46 (03/19/21) spKt/V (Daugirdas II) 1.3700 (07/23/21) 1.4700 (06/25/21) 1.3100 (06/18/21) 1.4300 (05/21/21) 1.4300 (04/23/21) Dialysis is adequate. Achieves prescribed time - Yes Achieves prescribed frequency - Yes Continue current prescription. Vascular Access Assessment Type of access: Fistula Fistulagram 12/2020 patent and no stenosis. Working well now was of 02/2021 Anemia Assessment HEMOGLOBIN (G/DL) IN BLOOD g/dL 11.1 (07/23/21) 11.5 (07/16/21) 10.7 (07/09/21) 11.5 (07/02/21) 11.2 (06/25/21) PLATELETS 1000/mcL 228 (06/18/21) 237 (05/21/21) 234 (04/23/21) 242 (03/19/21) 261 (02/19/21) IRON SATURATION % 19 (07/23/21) 23 (06/18/21) 29 (05/21/21) 14 (04/23/21) 26 (03/19/21) FERRITIN ng/mL 516 (07/23/21) 783 (06/25/21) 868 (04/23/21) 744 (03/26/21) 479 (02/26/21) Hemoglobin is at goal. Iron Saturation is [...] at goal. Intact PTH is at goal. Crop Consultant will adjust binders and vitamin D per protocol and continue to provide dietary education. Cardiovascular Assessment Blood pressures reviewed and are acceptable. Intradialytic weight gains are appropriate. Estimated dry weight is appropriate. Transplant Status: Patient is on transplant list. [facility] Now listed for Transplant at [facility] as of Apr 2021! Resuscitation Status Stable dialysis, no change in prescription López Mariano MD [ Signed And locked electronically On 07/30/2021 at 03:16:16 PM ] Transcribed: López Mariano ( 07/30/2021 ) documented in this encounter Plan of Treatment Not on filedocumented as of this encounter Visit Diagnoses Not on filedocumented in this encounter
--- OUTSIDE RECORDS SUMMARY | 2021-12-28 14:06 | XMS_ITS | Encounter Summary ---
:1965 Author Organization [facility] Address [address] [place] [address] Care Team Providers Name Role Phone Unavailable Primary Care Provider Unavailable Encounter Details Date Type Department Care Team Description 09/10/2021 Orders Only [facility] f López Awad MD [address] [facility] [address] [place], [place] [phone] (Wo rk) Social History Tobacco Use Types Packs/Day Years Used Date Smoking Tobacco: Never Assessed Sex Assigned at Date Recorded Not on file documented as of this encounter Plan of Treatment Not on filedocumented as of this encounter Procedures Procedure Name Priority Date/Time Associated Diagnosis Comme nts HEMATOLOGY Routine 09/10/2021 Results for thi s procedure are in the resu lts section. documented in this encounter Results (ABNORMAL) HEMATOLOGY (09/10/2021) Analysis Performed At Patho logist Time Signature Hemoglobin 10.6 (L) 12.0 - [facility] 16.0 g/dL [facility] Hemoglobin x 3 31.8 (L) 36.0 - [facility] 48.0 % [facility] Specimen (Source) Anatomical Collection Method Collection Time Re ceived Time Location / / Volume Laterality 09/10/2021 09/11/2021 1:42 PM CDT Narrative [facility] - 09/11/2021 Unless otherwise specified, test(s) performed at: [facility], [address] [place] [id number] SUPERVISOR CELL OPERATION: Yoseph Rose M.D. For any questions, please call customer service at FREQUENCY:OTHER Resulting Agency Comment Specimen source: Blood López Mariano MD LAB BLOOD ORDERABLES Performing Organization Address City/State/ZIP Code Phon e Number [facility] documented in this encounter Visit Diagnoses Not on filedocumented in this encounter
--- OUTSIDE RECORDS SUMMARY | 2021-12-28 14:06 | XMS_ITS | Encounter Summary ---
:1965 Author Organization [facility] Address [address] [place] [address] Care Team Providers Name Role Phone Unavailable Primary Care Provider Unavailable Encounter Details Date Type Department Care Team Description 07/30/2021 Orders Only [facility] López Awad MD [address] [place] [address] [place], [place] [phone] (Wo rk) Social History Tobacco Use Types Packs/Day Years Used Date Smoking Tobacco: Never Assessed Sex Assigned at Date Recorded Not on file documented as of this encounter Plan of Treatment Not on filedocumented as of this encounter Procedures Procedure Name Priority Date/Time Associated Diagnosis Comme nts HEMATOLOGY Routine 07/30/2021 Results for thi s procedure are in the resu lts section. documented in this encounter Results (ABNORMAL) HEMATOLOGY (07/30/2021) Analysis Performed At Patho logist Time Signature Hemoglobin 10.3 (L) 12.0 - [facility] 16.0 g/dL [facility] Hemoglobin x 3 30.9 (L) 36.0 - [facility] 48.0 % [facility] Specimen (Source) Anatomical Collection Method Collection Time Re ceived Time Location / / Volume Laterality 07/30/2021 07/31/2021 9:27 AM CDT Narrative [facility] - 07/31/2021 Unless otherwise specified, test(s) performed at: [facility], [address] [place] [id number] ELECTRIC TRACK SWITCH MAINTAINER: Yoseph Rose M.D. For any questions, please call customer service at FREQUENCY:OTHER Resulting Agency Comment Specimen source: Blood López Mariano MD LAB BLOOD ORDERABLES Performing Organization Address City/State/ZIP Code Phon e Number [facility] documented in this encounter Visit Diagnoses Not on filedocumented in this encounter
--- OUTSIDE RECORDS SUMMARY | 2021-12-28 14:06 | XMS_ITS | Encounter Summary ---
:1965 Author Organization [facility] Address [address] [place] [address] Care Team Providers Name Role Phone Unavailable Primary Care Provider Unavailable Encounter Details Date Type Department Care Team Description 09/24/2021 Orders Only [facility] López Awad MD [address] [facility] [address] [place], [place] [phone] (Wo rk) Social History Tobacco Use Types Packs/Day Years Used Date Smoking Tobacco: Never Assessed Sex Assigned at Date Recorded Not on file documented as of this encounter Plan of Treatment Not on filedocumented as of this encounter Procedures Procedure Name Priority Date/Time Associated Diagnosis Comme nts HEMATOLOGY Routine 09/24/2021 Results for thi s procedure are in the resu lts section. documented in this encounter Results (ABNORMAL) HEMATOLOGY (09/24/2021) Analysis Performed At Patho logist Time Signature Hemoglobin 10.7 (L) 12.0 - [facility] 16.0 g/dL [facility] Hemoglobin x 3 32.1 (L) 36.0 - [facility] 48.0 % [facility] Specimen (Source) Anatomical Collection Method Collection Time Re ceived Time Location / / Volume Laterality 09/24/2021 09/26/2021 1:22 PM CDT Narrative [facility] - 09/26/2021 Unless otherwise specified, test(s) performed at: [facility] [employer] [address] [place] [id number] MARKETING OUTREACH COORDINATOR: Yoseph Rose M.D. For any questions, please call customer service at FREQUENCY:OTHER Resulting Agency Comment Specimen source: Blood López Mariano MD LAB BLOOD ORDERABLES Performing Organization Address City/State/ZIP Code Phon e Number [facility] documented in this encounter Visit Diagnoses Not on filedocumented in this encounter
--- OUTSIDE RECORDS SUMMARY | 2021-12-28 14:06 | XMS_ITS | Encounter Summary ---
:1965 Author Organization [facility] Address [address] [place] [address] Care Team Providers Name Role Phone Unavailable Primary Care Provider Unavailable Encounter Details Date Type Department Care Team Description 11/12/2021 Orders Only [facility] López Awad MD [address] [place] [address] [place], [place] [phone] (Wo rk) Social History Tobacco Use Types Packs/Day Years Used Date Smoking Tobacco: Never Assessed Sex Assigned at Date Recorded Not on file documented as of this encounter Plan of Treatment Not on filedocumented as of this encounter Procedures Procedure Name Priority Date/Time Associated Diagnosis Comme nts HEMATOLOGY Routine 11/12/2021 Results for thi s procedure are in the resu lts section. documented in this encounter Results (ABNORMAL) HEMATOLOGY (11/12/2021) Analysis Performed At Patho logist Time Signature Hemoglobin 11.9 (L) 12.0 - [facility] 16.0 g/dL [facility] Hemoglobin x 3 35.7 (L) 36.0 - [facility] 48.0 % [facility] Specimen (Source) Anatomical Collection Method Collection Time Re ceived Time Location / / Volume Laterality 11/12/2021 11/13/2021 7:17 AM CDT Narrative [facility] - 11/13/2021 Unless otherwise specified, test(s) performed at: [facility], [address] [place] [address], [place] [address] SILVER HOLLOWARE ASSEMBLER: John Hernandez M.D., Ph.D For any questions, please call customer service at FREQUENCY:OTHER Resulting Agency Comment Specimen source: Blood López Mariano MD LAB BLOOD ORDERABLES Performing Organization Address City/State/ZIP Code Phon e Number [facility] documented in this encounter Visit Diagnoses Not on filedocumented in this encounter
--- OUTSIDE RECORDS SUMMARY | 2021-12-28 14:06 | XMS_ITS | Encounter Summary ---
:1965 Author Organization [facility] Address [address] [place] [address] Care Team Providers Name Role Phone Unavailable Primary Care Provider Unavailable Encounter Details Date Type Department Care Team Description 06/25/2021 Orders Only [facility] f López Awad MD [address] [place] [address] [place], [place] [phone] (Wo rk) Social History Tobacco Use Types Packs/Day Years Used Date Smoking Tobacco: Never Assessed Sex Assigned at Date Recorded Not on file documented as of this encounter Plan of Treatment Not on filedocumented as of this encounter Procedures Procedure Name Priority Date/Time Associated Diagnosis Comme nts HD KINETICS Routine 06/25/2021 Results for thi s procedure are i n the results section . POST CHEMISTRY Routine 06/25/2021 Results for t his procedure are i n the results section . HEMATOLOGY Routine 06/25/2021 Results for thi s procedure are i n the results section . CHEMISTRY Routine 06/25/2021 Results for thi s procedure are i n the results section . [facility]RA [facility] LAB RESULTS Routine 06/25/2021 Resul ts for this procedure are i n the results section . documented in this encounter Results Spectra [facility] Lab Results (06/25/2021) P athologist Signature eKdrt/V 1.29 [facility] eKt/V 1.26 [facility] ([place]) eNPCR 0.78 [facility] nPCR_HD 0.85 [facility] spKt/V 1.47 [facility] ([place]) eKt/V Gotch 1.29 [facility] spKt/V Gotch 1.52 [facility] PCR 52.71 [facility] Specimen (Source) Anatomical Location Collection Method / Collectio n Time Received Time / Laterality Volume 06/25/2021 06/25/2021 [place] Ordering Provider LAB BLOOD ORDERABLES Performing Organization Address City/[facility]/ZIP Code Phon e Number [facility] HD KINETICS (06/25/2021) P athologist Signature % Urea 72 65 - 80 % [facility] Reduction [facility] Specimen (Source) Anatomical Collection Method Collection Time Re ceived Time Location / / Volume Laterality 06/25/2021 06/26/2021 6:30 PM SENIOR INFORMATION SECURITY ANALYST Narrative [facility] - 06/27/2021 Unless otherwise specified, test(s) performed at: [facility], [address] [place] [id number] LANDSCAPE GARDENER: Yoseph Rose M.D. For any questions, please call customer service at FREQUENCY:OTHER Resulting Agency Comment Specimen source: Serum López Mariano MD LAB BLOOD ORDERABLES Performing Organization Address [facility] Phon e Number [facility] POST CHEMISTRY (06/25/2021) P athologist Signature BUN Post 13 6 - 19 [facility] Dialysis mg/dL [facility] Specimen (Source) Anatomical Collection Method Collection Time Re ceived Time Location / / Volume Laterality 06/25/2021 06/26/2021 3:13 PM SENIOR INFORMATION SECURITY ANALYST Narrative [facility] - 06/26/2021 Unless otherwise specified, test(s) performed at: [facility], [address] [place] [address] LANDSCAPE GARDENER: Yoseph Rose M.D. For any questions, please call customer service at FREQUENCY:OTHER Resulting Agency Comment Specimen source: Plasma López Mariano MD LAB BLOOD ORDERABLES Performing Organization Address City/[facility] Phon e Number [facility] (ABNORMAL) Spectrae Chemistry (06/25/2021) P athologist Signature Ferritin 783 (H) 10 - 291 [facility] ng/mL [facility] BUN 46 (H) 6 - 19 [facility] mg/dL [facility] Specimen (Source) Anatomical Collection Method Collection Time Re ceived Time Location / / Volume Laterality 06/25/2021 06/26/2021 6:29 PM SENIOR INFORMATION SECURITY ANALYST Narrative [facility] - 06/27/2021 Unless otherwise specified, test(s) performed at: [facility], [address] [place] [id number] LANDSCAPE GARDENER: Yoseph Rose M.D. For any questions, please call customer service at FREQUENCY:OTHER Resulting Agency Comment Specimen source: Serum López Mariano MD LAB BLOOD ORDERABLES Performing Organization Address City/[facility] Phon e Number [facility] (ABNORMAL) HEMATOLOGY (06/25/2021) Analysis Performed At Patho logist Time Signature Hemoglobin 11.2 (L) 12.0 - [facility] 16.0 g/dL [facility] Hemoglobin x 3 33.6 (L) 36.0 - [facility] 48.0 % [facility] Specimen (Source) Anatomical Collection Method Collection Time Re ceived Time Location / / Volume Laterality 06/25/2021 06/26/2021 9:57 AM SENIOR INFORMATION SECURITY ANALYST Narrative [facility] - 06/26/2021 Unless otherwise specified, test(s) performed at: [facility], [address] [place] [id number] LANDSCAPE GARDENER: Yoseph Rose M.D. For any questions, please call customer service at FREQUENCY:OTHER Resulting Agency Comment Specimen source: Blood López Mariano MD LAB BLOOD ORDERABLES Performing Organization Address City/[facility] Phon e Number [facility] documented in this encounter Visit Diagnoses Not on filedocumented in this encounter
--- OUTSIDE RECORDS SUMMARY | 2021-12-28 14:06 | XMS_ITS | Encounter Summary ---
:1965 Author Organization [facility] Address [address] [place] [address] Care Team Providers Name Role Phone Unavailable Primary Care Provider Unavailable Encounter Details Date Type Department Care Team Description 11/12/2021 Treatment [facility] López Awad MD [address] [place], [place] [phone] (Wo rk) Social History Tobacco Use Types Packs/Day Years Used Date Smoking Tobacco: Never Assessed Sex Assigned at Date Recorded Not on file documented as of this encounter Miscellaneous Notes Dialysis Note - López Mariano MD - 11/12/2021 1:33 PM CDT Date: Nov 12, 2021 Patient Name: Stephanie Norman : 1965 Chart #: [id number] Sex: F This patient was personally seen for a basic visit as part of routine weekly dialysis care. A reviewof the dialysis treatment, blood pressure, estimated dry weight and recent lab values was made. These were discussed with the patient and staff as necessary. Treatment Data for 11/12/2021 started at:11:27 AM Dialyzer: 180NRe Optiflux Na: 137 mEq/L Bicarb: 31 mEq/L Dialysate: 2.0 K, 2.5 Ca, 1.0 Mg, 100 Dextrose (G2251) Dialysate/Machine Temp (prescribed): 37 C Dialysate/Machine Temp (actual): 36.9 C BFR (prescribed): 400 BFR (actual): 400 Prescribed time: 03:30 EDW: 91 kg Access Type: Active (In Use):AVFistula-Standard/Left Upper Arm Pre Dialysis Vitals (for 11/12/2021 11:19 AM ) Pre BP (sit): 135/69 Pre Wt: 94.6 kg Temp: 95.4 F Post Dialysis Vitals (for 11/10/2021 2:59 PM ) Post BP (sit): 123/66 Post Wt: 91.9 kg Current Dialysis Vitals (for 11/12/2021 1:32 PM ) BP (sit): 110/56 AP(-) / LASTEX OPERATOR: 182/181 Pulse: 67 Chairside data as of 11/12/2021 1:32 PM Last 3 Treatments 11/10/2021 11/07/2021 11/05/2021 EDW (kg) 91 91 91 Weight Pre (kg) 95.1 93.8 94 Weight Post (kg) 91.9 91.1 91.6 Dialytic Weight Loss (kg) -3.2 -2.7 -2.4 EDW Deviation (kg) 0.9 0.1 0.6 BP Sit Pre 125/56 148/67 126/64 BP Sit Post 123/66 120/61 119/64 UF Rate (mL/kg/hr) 10 8 8 Prescribed BFR 400 400 400 Average Delivered BFR 400 450 460 Prescribed Treatment Time 03:30 03:30 03:30 Actual Treatment Time 03:32 03:31 03:17 Last 3 Values 09/26/2021 06/27/2021 05/23/2021 Access [...] 0.50 mcg ORAL Every Treatment 10/27/2021 10/26/2022 EXPORT DOCUMENTS CLERK: López Mariano MD LOCATION: [phone] SCHEDULE: M-W-F 2nd Shift ACCESS: EDW: kg. DIALYZER: HD DURATION: NEEDLE SIZE: ANTICOAG: BATH: QB: ml/min QD: ml/min Subjective No new complaints. 11/12: She feels well. 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 She is [...] edema, cramps or any other symptoms. 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 05/21/21: Stephanie is feeling well today. She feels hemo is going really well. 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 She denies CP, SOB, edema. 05/14/21: [...] Wednesday. 02/12/21: She saw gen surgery at [facility], sending her up to [place] to see Dr. Hudson given PKD and future tx and [place] nephrectomies possible. She is liking HD, thinks [...] get to run. PCAD placed yesterday at [facility], fistulagram now with open [...] Clear to auscultation bilaterally. Cardiovascular Regular rate. Edema - No leg [...] and no changes were made. BUN mg/dL 57 (10/22/21) 60 (09/17/21) 49 [...] (09/17/21) 1.5500 (08/20/21) 1.5100 (08/01/21) 1.3700 (07/23/21) HEMOGLOBIN (G/DL) IN BLOOD g/dL 12.1 (11/05/21) 12.1 (10/29/21) 11.1 (10/22/21) 11.8 (10/15/21) 11.3 (10/08/21) PLATELETS 1000/mcL 207 (10/22/21) 220 (09/17/21) 201 (08/20/21) 228 (06/18/21) 237 (05/21/21) IRON SATURATION % 18 (09/17/21) 27 (08/20/21) 19 (07/23/21) 23 (06/18/21) 29 (05/21/21) FERRITIN ng/mL 1140 (10/22/21) 516 (07/23/21) 783 (06/25/21) 868 (04/23/21) 744 (03/26/21) ALBUMIN (G/DL) g/dL 4.2 (10/22/21) 4.3 (09/17/21) 4.2 (08/20/21) Sodium mEq/L 135 (10/22/21) 137 (09/17/21) 136 (08/20/21) POTASSIUM (MMOL/L) IN SER/PLAS mEq/L 5.1 (10/22/21) 5.1 (09/17/21) 4.7 (08/20/21) BICARBONATE (CO2) mEq/L 24 (10/22/21) 24 (09/17/21) 24 (08/20/21) 25 OH VITAMIN D ng/mL 11.6 (04/24/20) 19.9 (04/21/19) 25.6 (02/20/19) BUN/CREATININE (MASS RATIO) IN SER/PLAS 6.3 (10/22/21) 6.5 (09/17/21) 6.1 (08/20/21) GLUCOSE (MG/DL) IN SER/PLAS mg/dL 82 (05/08/19) VOLUME OF URINE mL 300 (12/18/20) 300 (10/23/20) 300 (10/09/20) CALCIUM mg/dL 9.4 (10/22/21) 9.5 (09/17/21) 9.0 (08/20/21) Calcium Phos Product 51 (10/22/21) 46 (09/17/21) 43 (08/20/21) CALCIUM (MG/DL) CORRECTED FOR ALBUMIN IN SER/PLAS mg/dL 9.2 (10/22/21) 9.3 (09/17/21) 8.8 (08/20/21) PHOSPHATE (MG/DL) IN SER/PLAS mg/dL 5.4 (10/22/21) 4.8 (09/17/21) 4.8 (08/20/21) IPTH pg/mL 623 (10/22/21) 370 (07/23/21) 283 (04/23/21) Vascular Access Assessment: Type of access: Fistula Fistulagram 12/2020 patent and no stenosis. Working well now was of 02/2021 Impression and Plan Stable dialysis, no changes today Working on quitting smoking, continues to slowly cut back López Mariano MD [ Signed And locked electronically On 11/12/2021 at 01:34:03 PM ] Transcribed: López Mariano ( 11/12/2021 ) documented in this encounter Plan of Treatment Not on filedocumented as of this encounter Visit Diagnoses Not on filedocumented in this encounter
--- OUTSIDE RECORDS SUMMARY | 2021-12-28 14:06 | XMS_ITS | Encounter Summary ---
:1965 Author Organization [facility] Address [address] [place] [address] Care Team Providers Name Role Phone Unavailable Primary Care Provider Unavailable Encounter Details Date Type Department Care Team Description 11/26/2021 Orders Only [facility] O f López Awad MD [address] [place] [address] [place], [place] [phone] (Wo rk) Social History Tobacco Use Types Packs/Day Years Used Date Smoking Tobacco: Never Assessed Sex Assigned at Date Recorded Not on file documented as of this encounter Plan of Treatment Not on filedocumented as of this encounter Procedures Procedure Name Priority Date/Time Associated Diagnosis Comme nts HEMATOLOGY Routine 11/26/2021 Results for thi s procedure are in the resu lts section. documented in this encounter Results HEMATOLOGY (11/26/2021) P athologist Signature Hemoglobin 12.0 12.0 - [facility] 16.0 g/dL [facility] Hemoglobin x 3 36.0 36.0 - [facility] 48.0 % [facility] Specimen (Source) Anatomical Collection Method Collection Time Re ceived Time Location / / Volume Laterality 11/26/2021 11/27/2021 7:45 AM CDT Narrative [facility] - 11/28/2021 Unless otherwise specified, test(s) performed at: [facility], [address] [place] [address], [place] [address] FLYING SHEAR OPERATOR: John Hernandez M.D., Ph.D For any questions, please call customer service at FREQUENCY:OTHER Resulting Agency Comment Specimen source: Blood López Mariano MD LAB BLOOD ORDERABLES Performing Organization Address City/State/ZIP Code Phon e Number [facility]PS [facility] documented in this encounter Visit Diagnoses Not on filedocumented in this encounter
--- OUTSIDE RECORDS SUMMARY | 2021-12-28 14:06 | XMS_ITS | Encounter Summary ---
:1965 Author Organization [facility] Address [address] [place] [address] Care Team Providers Name Role Phone Unavailable Primary Care Provider Unavailable Encounter Details Date Type Department Care Team Description 08/13/2021 Treatment [facility] López Awad MD [address] [place], [place] [phone] (Wo rk) Social History Tobacco Use Types Packs/Day Years Used Date Smoking Tobacco: Never Assessed Sex Assigned at Date Recorded Not on file documented as of this encounter Miscellaneous Notes Dialysis Note - López Mariano MD - 08/13/2021 12:42 PM CDT Date: Aug 13, 2021 Patient Name: Stephanie Norman : 1965 Chart #: [id number] Sex: F This patient was personally seen for a basic visit as part of routine weekly dialysis care. A reviewof the dialysis treatment, blood pressure, estimated dry weight and recent lab values was made. These were discussed with the patient and staff as necessary. Treatment Data for 08/13/2021 started at:11:39 AM Dialyzer: 180NRe Optiflux Na: 137 mEq/L Bicarb: 31 mEq/L Dialysate: 2.0 K, 2.25 Ca, 1.0 Mg, 100 Dextrose (G2231) Dialysate/Machine Temp (prescribed): 37 C Dialysate/Machine Temp (actual): 37.2 C BFR (prescribed): 400 BFR (actual): 450 Prescribed time: 03:30 EDW: 91 kg Access Type: Active (In Use):AVFistula-Standard/Left Upper Arm Pre Dialysis Vitals (for 08/13/2021 11:27 AM ) Pre BP (sit): 141/68 Pre Wt: 94.1 kg Temp: 95.2 F Post Dialysis Vitals (for 08/11/2021 3:00 PM ) Post BP (sit): 117/60 Post Wt: 92.2 kg Current Dialysis Vitals (for 08/13/2021 12:32 PM ) BP (sit): 112/54 AP(-) / GAS TORCH BRAZIER: 188/195 Pulse: 63 Chairside data as of 08/13/2021 12:32 PM Last 3 Treatments 08/11/2021 08/08/2021 08/06/2021 EDW (kg) 91 91 91 Weight Pre (kg) 95.2 93.3 94.5 Weight Post (kg) 92.2 90.7 91.3 Dialytic Weight Loss (kg) -3 -2.6 -3.2 EDW Deviation (kg) 1.2 -0.3 0.3 BP Sit Pre 141/61 138/69 131/69 BP Sit Post 117/60 111/55 110/57 UF Rate (mL/kg/hr) 9 8 10 Prescribed BFR 400 400 400 Average Delivered BFR 400 400 400 Prescribed Treatment Time 03:30 03:30 03:30 Actual Treatment Time 03:29 03:31 03:31 Last 2 Values 06/27/2021 05/23/2021 Access Flow 1714 1718 Treatment Medication Orders Medication Sig Start Date End Date Heparin Sodium (Porcine) 1,000 Units/mL Systemic 4000 units IVP Every Treatment 02/26/2021 02/25/2022 Heparin Sodium (Porcine) 1,000 Units/mL Systemic 2000 units IVP Every Treatment 02/26/2021 02/25/2022 Iron Sucrose (Venofer) 100 mg IVP Every Treatment 08/01/2021 08/22/2021 Vitamin D (Calcitriol) Oral 0.25 mcg ORAL Every Treatment 2021 03/09/2022 AUTOMATIC DRILL OPERATOR: López Mariano MD LOCATION: [phone] SCHEDULE: -W- 2nd Shift ACCESS: EDW: kg. DIALYZER: HD DURATION: NEEDLE SIZE: ANTICOAG: BATH: QB: ml/min QD: ml/min Subjective No new complaints. 08/13/21: Had some mild cramping at end [...] edema, cramps or any other symptoms. 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 05/21/21: Stephanie is feeling well today. She feels hemo is going really well. 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 She denies CP, SOB, edema. 05/14/21: [...] Wednesday. 02/12/21: She saw gen surgery at [facility], sending her up to [place] to see Dr. Hudson given PKD and future tx and [place] nephrectomies possible. She is liking HD, thinks [...] get to run. PCAD placed yesterday at [facility], fistulagram now with open access. [...] auscultation bilaterally. nl effort Cardiovascular Regular rate. Regular rhythm. No murmur [...] no changes were made. BUN mg/dL 49 (08/01/21) 59 (07/23/21) 46 [...] (07/23/21) 1.4700 (06/25/21) 1.3100 (06/18/21) 1.4300 (05/21/21) HEMOGLOBIN (G/DL) IN BLOOD g/dL 10.9 (08/06/21) 10.3 (07/30/21) 11.1 (07/23/21) 11.5 (07/16/21) 10.7 (07/09/21) PLATELETS 1000/mcL 228 (06/18/21) 237 (05/21/21) 234 (04/23/21) 242 (03/19/21) 261 (02/19/21) IRON SATURATION % 19 (07/23/21) 23 (06/18/21) 29 (05/21/21) 14 (04/23/21) 26 (03/19/21) FERRITIN ng/mL 516 (07/23/21) 783 (06/25/21) 868 (04/23/21) 744 (03/26/21) 479 (02/26/21) ALBUMIN (G/DL) g/dL 4.3 (07/23/21) 4.1 (06/18/21) 4.5 (05/21/21) Sodium mEq/L 136 (07/23/21) 138 (06/18/21) 136 (05/21/21) POTASSIUM (MMOL/L) IN SER/PLAS mEq/L 5.1 (07/23/21) 5.0 (06/18/21) 4.9 (05/21/21) BICARBONATE (CO2) mEq/L 21 (07/23/21) 25 (06/18/21) 26 (05/21/21) 25 OH VITAMIN D ng/mL 11.6 (04/24/20) 19.9 (04/21/19) 25.6 (02/20/19) BUN/CREATININE (MASS RATIO) IN SER/PLAS 7.8 (07/23/21) 5.8 (06/18/21) 6.9 (05/21/21) GLUCOSE (MG/DL) IN SER/PLAS mg/dL 82 (05/08/19) VOLUME OF URINE mL 300 (12/18/20) 300 (10/23/20) 300 (10/09/20) Calcium mg/dL 9.4 (07/23/21) 9.2 (06/18/21) 9.7 (05/21/21) Calcium Phos Product 41 (07/23/21) 36 (06/18/21) 41 (05/21/21) CALCIUM (MG/DL) CORRECTED FOR ALBUMIN IN SER/PLAS mg/dL 9.2 (07/23/21) 9.1 (06/18/21) 9.3 (05/21/21) PHOSPHATE (MG/DL) IN SER/PLAS mg/dL 4.4 (07/23/21) 3.9 (06/18/21) 4.2 (05/21/21) IPTH pg/mL 370 (07/23/21) 283 (04/23/21) 342 (03/19/21) Vascular Access Assessment: Type of access: Fistula Fistulagram 12/2020 patent and no stenosis. Working well now was of 02/2021 Impression and Plan Stable dialysis, no changes today Monitor cramping, may need to increase EDW a little next time if still cramping López Mariano MD [ Signed And locked electronically On 08/13/2021 at 12:43:26 PM ] Transcribed: López Mariano ( 08/13/2021 ) documented in this encounter Plan of Treatment Not on filedocumented as of this encounter Visit Diagnoses Not on filedocumented in this encounter
--- OUTSIDE RECORDS SUMMARY | 2021-12-28 14:06 | XMS_ITS | Encounter Summary ---
:1965 Author Organization [facility] Address [address] [place] [address] Care Team Providers Name Role Phone Unavailable Primary Care Provider Unavailable Encounter Details Date Type Department Care Team Description 10/22/2021 [facility] Only [facility] O f López Awad MD [phone] [place] [address] [place], [place] [phone] (Wo rk) Social History Tobacco Use Types Packs/Day Years Used Date Smoking Tobacco: Never Assessed Sex Assigned at Date Recorded Not on file documented as of this encounter Plan of Treatment Not on filedocumented as of this encounter Procedures Procedure Name Priority Date/Time Associated Diagnosis Comme nts HD KINETICS Routine 10/22/2021 Results for thi [...] this encounter Results Spectra [facility] Lab Results (10/22/2021) athologist Signature spKt/V 1.82 [place] ([place]ird[place] II) eKt/V 1.56 [place] ([place]) nPCR_HD 1.13 [place] PCR 66.79 [place] eKdrt/V 1.62 [place] eKt/V Gotch 1.62 [place] eNPCR 1.05 [place] spKt/V Gotch 1.91 [place] Specimen (Source) Anatomical Location Collection Method / Collectio n Time Received Time / Laterality Volume 10/22/2021 10/22/2021 [place] Ordering Provider LAB BLOOD ORDERABLES Performing Organization Address City/State/[facility] Phon e Number [place] HD KINETICS (10/22/2021) athologist Signature % Urea 79 65 - 80 % APS SPECTRA Reduction [facility] Specimen (Source) Anatomical Collection Method Collection Time Re ceived Time Location / / Volume Laterality 10/22/2021 10/24/2021 3:31 PM CDT Narrative APS SPECTRA [facility] - 10/25/2021 Unless otherwise specified, test(s) performed at: [facility] [address] [place] [address], [place] [address] ACCOUNT MANAGER: John Hernandez M.D., Ph.D For any questions, please call customer service at FREQUENCY:MONTHLY Resulting Agency Comment Specimen source: Plasma López Mariano MD LAB BLOOD ORDERABLES Performing Organization Address [facility] Phon e Number APS SPECTRA [facility] (ABNORMAL) SPECIAL CHEMISTRY (10/22/2021) athologist Signature Vitamin D, 12.0 (L) 19.9 - APS SPECTRA 1,25-Dihydroxy 79.3 pg/mL [facility] Specimen (Source) Anatomical Collection Method Collection Time Re ceived Time Location / / Volume Laterality 10/22/2021 10/24/2021 3:30 PM CDT Resulting Agency Comment Specimen source: Serum López Mariano MD LAB BLOOD BANK TEST ORDERABL ES Performing Organization Address City/[facility] Phon e Number APS SPECTRA [facility] (ABNORMAL) Spectrae Chemistry (10/22/2021) [facility] gist Method Time Signature BUN 57 (H) 6 - 19 APS SPECTRA mg/dL [facility] Creatinine 9.07 (H) 0.60 - APS SPECTRA 1.30 mg/dL [facility] BUN/Creatinine 6.3 (L) 10.0 - APS SPECTRA Ratio 20.0 [facility] Sodium 135 (L) 136 - 145 APS SPECTRA mEq/L [facility] Potassium 5.1 3.5 - 5.1 APS SPECTRA mEq/L [facility] Chloride 98 96 - 108 APS SPECTRA mEq/L [facility] Bicarbonate 24 20 - 31 APS SPECTRA (CO2) mEq/L [facility] Comment: Please note change in reference range. Calcium 9.4 8.7 - 10.4 mg/dL APS SPECTRA [facility] Comment: Please note change in reference range. Corrected Calcium 9.2 8.7 - 10.4 mg/dL APS S PECTRA [facility] Comment: Corrected Calcium is not equivalent to m easured Ionized Calcium. Phosphorus 5.4 (H) 2.6 - 4.5 mg/dL APS SPECTRA [facility] Calcium Phosphorus Product 51 0 - 54 APS SPECTRA [facility] Calcium Phosporus Product, Cor 50 0 - 54 APS SPECTRA [facility] Alkaline Phosphatase 90 35 - 104 U/L APS SP ECTRA [facility] Total Protein 7.2 6.0 - 8.5 g/dL APS SPECTRA [facility] Albumin 4.2 3.5 - 5.2 g/dL APS SPECTRA [facility] [place] Globulin, Total 3.0 2.0 - 4.0 g/dL APS SPECT RA [facility] A/G Ratio 1.4 1.0 - 2.0 APS SPECTRA [facility] Magnesium 2.1 1.6 - 2.6 mg/dL APS SPECTRA [place] [facility] Ferritin 1,140 (H) 10 - 291 ng/mL APS SPECTRA [facility] [place] Iron 74 30 - 160 mcg/dL APS SPECTRA [place] [facility] UIBC 191 155 - 355 mcg/dL APS SPECTRA [facility] TIBC 265 185 - 515 mcg/dL APS SPECTRA [facility] Iron Saturation (TSat) 28 20 - 55 % APS SPE CTRA [facility] Specimen (Source) Anatomical Collection Method Collection Time Re ceived Time Location / / Volume Laterality 10/22/2021 10/24/2021 3:30 PM CDT Narrative APS SPECTRA [facility] - 10/25/2021 Unless otherwise specified, test(s) performed at: [facility] [address] [place] [address], [place] [address] ACCOUNT MANAGER: John Hernandez M.D., Ph.D For any questions, please call customer service at FREQUENCY:MONTHLY Resulting Agency Comment Specimen source: Serum López Mariano MD LAB BLOOD ORDERABLES Performing Organization Address City/[facility]/ZIP Code Phon e Number APS SPECTRA [facility] [...] refer to MMWR Dece 2004/Vol.54 (No. 16); -, and for healthcare workers, refer to MMWR April 07, 2013/Vol.62 (No. 10); 1-18. Reference Range: <10 mIU/mL ? Non-Immune >=10 [...] Number APS SPECTRA [facility] (ABNORMAL) Spectrae Chemistry (10/22/2021) P athologist Signature PTH 623 (H) 16 - 80 APS SPECTRA pg/mL [facility] Specimen (Source) Anatomical Collection Method Collection Time Re ceived Time Location / / Volume Laterality 10/22/2021 10/24/2021 5:49 PM CDT Narrative APS SPECTRA [facility] - 10/24/2021 Unless otherwise specified, test(s) performed at: [facility] [address] [place], [place] [address]agnieszka montanez [place] [address] ACCOUNT MANAGER: John Hernandez M.D., Ph.D For any questions, please call customer service at FREQUENCY:MONTHLY Resulting Agency Comment Specimen source: Plasma López Mariano MD LAB BLOOD ORDERABLES Performing Organization Address City/State/ZIP Code Phon e Number APS SPECTRA [facility] (ABNORMAL) HEMATOLOGY (10/22/2021) [facility] gist Method Time Signature WBC 6.95 4.80 - APS SPECTRA 10.80 [facility] 1000/mcL RBC 3.27 (L) 4.20 - APS SPECTRA 5.40 [facility] mill/mcL Hemoglobin 11.1 (L) 12.0 - APS SPECTRA 16.0 g/dL [facility] Hemoglobin x 3 33.3 (L) 36.0 - APS SPECTRA 48.0 % [facility] Hematocrit 34.5 (L) 37.0 - APS SPECTRA 47.0 % [facility] MCV 106 (H) 80 - 100 APS SPECTRA fl [facility] MCH 34.0 (H) 27.0 - APS SPECTRA 31.0 pg [facility] MCHC 32.2 30.0 - APS SPECTRA 36.0 g/dL [facility] RDW 13.0 11.5 - APS SPECTRA 14.5 % [facility] Neutrophils 72.9 40.0 - APS SPECTRA 75.0 % [facility] Lymphocytes 16.0 (L) 19.0 - APS SPECTRA Relative 48.0 % [facility] Monocytes 5.9 3.0 - 10.0 APS SPECTRA % [facility] Eosinophils 2.7 0.0 - 7.0 APS SPECTRA Relative % [facility] Basophils 1.0 0.0 - 1.5 APS SPECTRA Relative % [facility] JESSICA 1.5 0.0 - 4.0 APS SPECTRA % [facility] Platelets 207 130 - 400 APS SPECTRA 1000/mcL [facility] Specimen (Source) Anatomical Collection Method Collection Time Re ceived Time Location / / Volume Laterality 10/22/2021 10/24/2021 4:48 PM CDT Narrative APS SPECTRA [facility] - 10/24/2021 Unless otherwise specified, test(s) performed at: [facility] [address] [place] [address] ACCOUNT MANAGER: John Hernandez M.D., Ph.D For any questions, please call customer service at FREQUENCY:MONTHLY Resulting Agency Comment Specimen source: Blood López Mariano MD LAB BLOOD ORDERABLES Performing Organization Address City/[facility]/[place]IP [facility] [place] Number APS SPECTRA [facility] POST CHEMISTRY (10/22/2021) P athologist Signature BUN Post 12 6 - 19 APS SPECTRA Dialysis mg/dL [facility] Specimen (Source) Anatomical Collection Method Collection Time Re ceived Time Location / / Volume Laterality 10/22/2021 10/24/2021 3:31 PM CDT Narrative APS SPECTRA [facility] - 10/24/2021 Unless otherwise specified, test(s) performed at: [facility] [address] [place] [address] ACCOUNT MANAGER: John Hernandez M.D., Ph.D For any questions, please call customer service at FREQUENCY:MONTHLY Resulting Agency Comment Specimen source: Plasma López Mariano MD LAB BLOOD ORDERABLES Performing Organization Address City/[facility] Phon e Number APS SPECTRA [facility] documented in this encounter Visit Diagnoses Not on filedocumented in this encounter
--- OUTSIDE RECORDS SUMMARY | 2021-12-28 14:06 | XMS_ITS | Encounter Summary ---
:1965 Author Organization [facility] Address [address] [place] [address] Care Team Providers Name Role Phone Unavailable Primary Care Provider Unavailable Encounter Details Date Type Department Care Team Description 07/02/2021 Orders Only [facility] O f López Awad MD [phone] [facility] [place] [address] [place], [place] [phone] (Wo rk) Social History Tobacco Use Types Packs/Day Years Used Date Smoking Tobacco: Never Assessed Sex Assigned at Date Recorded Not on file documented as of this encounter Plan of Treatment Not on filedocumented as of this encounter Procedures Procedure Name Priority Date/Time Associated Diagnosis Comme nts HEMATOLOGY Routine 07/02/2021 Results for thi s procedure are in the resu lts section. documented in this encounter Results (ABNORMAL) HEMATOLOGY (07/02/2021) Analysis Performed At Patho logist Time Signature Hemoglobin 11.5 (L) 12.0 - APS SPECTRA 16.0 g/dL [facility] Hemoglobin x 3 34.5 (L) 36.0 - APS SPECTRA 48.0 % [facility] Specimen (Source) Anatomical Collection Method Collection Time Re ceived Time Location / / Volume Laterality 07/02/2021 07/03/2021 9:27 AM CDT Narrative APS SPECTRA [facility] - 07/03/2021 Unless otherwise specified, test(s) performed at: [facility], [address] [place] [address] APPLICATION SPEC: Yoseph Rose M.D. For any questions, please call customer service at FREQUENCY:OTHER Resulting Agency Comment Specimen source: Blood López Mariano MD LAB BLOOD ORDERABLES Performing Organization Address City/State/ZIP Code Phon e Number APS SPECTRA [facility] documented in this encounter Visit Diagnoses Not on filedocumented in this encounter
--- OUTSIDE RECORDS SUMMARY | 2021-12-28 14:06 | XMS_ITS | Encounter Summary ---
:1965 Author Organization [facility] Address [address] [place] [address] Care Team Providers Name Role Phone Unavailable Primary Care Provider Unavailable Encounter Details Date Type Department Care Team Description 08/13/2021 Orders Only [facility] O f López Awad MD [phone] [facility] [address] [place], [place] [phone] (Wo rk) Social History Tobacco Use Types Packs/Day Years Used Date Smoking Tobacco: Never Assessed Sex Assigned at Date Recorded Not on file documented as of this encounter Plan of Treatment Not on filedocumented as of this encounter Procedures Procedure Name Priority Date/Time Associated Diagnosis Comme nts HEMATOLOGY Routine 08/13/2021 Results for thi s procedure are in the resu lts section. documented in this encounter Results (ABNORMAL) HEMATOLOGY (08/13/2021) Analysis Performed At Patho logist Time Signature Hemoglobin 11.1 (L) 12.0 - APS SPECTRA 16.0 g/dL [facility] Hemoglobin x 3 33.3 (L) 36.0 - APS SPECTRA 48.0 % [facility] Specimen (Source) Anatomical Collection Method Collection Time Re ceived Time Location / / Volume Laterality 08/13/2021 08/14/2021 9:59 AM CDT Narrative APS SPECTRA [facility] - 08/14/2021 Unless otherwise specified, test(s) performed at: [facility], [address] [place] [address] DIRECTOR OF MARKETING: Yoseph Rose M.D. For any questions, please call customer service at FREQUENCY:OTHER Resulting Agency Comment Specimen source: Blood López Mariano MD LAB BLOOD ORDERABLES Performing Organization Address City/State/ZIP Code Phon e Number APS SPECTRA [facility] documented in this encounter Visit Diagnoses Not on filedocumented in this encounter
--- OUTSIDE RECORDS SUMMARY | 2021-12-28 14:06 | XMS_ITS | Encounter Summary ---
:1965 Author Organization [facility] Address [address] [place] [address] Care Team Providers Name Role Phone Unavailable Primary Care Provider Unavailable Encounter Details Date Type Department Care Team Description 07/23/2021 Orders Only [facility] O f López Awad MD [phone] [place] [address] [place], [place] [phone] (Wo rk) Social History Tobacco Use Types Packs/Day Years Used Date Smoking Tobacco: Never Assessed Sex Assigned at Date Recorded Not on file documented as of this encounter Plan of Treatment Not on filedocumented as of this encounter Procedures Procedure Name Priority Date/Time Associated Diagnosis Comme nts HD KINETICS Routine 07/23/2021 Results for thi s procedure are i n the results section . POST CHEMISTRY Routine 07/23/2021 Results for t his procedure are i n the results section . IMMUNO CHEMISTRY Routine 07/23/2021 Results for this procedure are i n the results section . HEMATOLOGY Routine 07/23/2021 Results for thi s procedure are i n the results section . CHEMISTRY Routine 07/23/2021 Results for thi s procedure are i n the results section . CHEMISTRY Routine 07/23/2021 Results for thi s procedure are i n the results section . SPECTRA [facility] LAB RESULTS Routine 07/23/2021 Resul ts for this procedure are i n the results section . documented in this encounter Results Spectra [facility] Lab Results (07/23/2021) P athologist Signature PCR 63.47 [place] nPCR_HD 1.01 [place] spKt/V Gotch 1.40 [place] eKdrt/V 1.19 [place] eKt/V 1.17 [place] ([place]) eKt/V Gotch 1.19 [place] eNPCR 0.91 [place] spKt/V 1.37 [place] ([place]irdas II) Specimen (Source) Anatomical Location Collection Method / Collectio n Time Received Time / Laterality Volume 07/23/2021 07/23/2021 [place] Ordering Provider LAB BLOOD ORDERABLES Performing Organization Address City/[facility]/ZIP Code Phon e Number [place] (ABNORMAL) HEMATOLOGY (07/23/2021) Analysis Performed At Patho logist Time Signature Hemoglobin 11.1 (L) 12.0 - APS SPECTRA 16.0 g/dL [facility] Hemoglobin x 3 33.3 (L) 36.0 - APS SPECTRA 48.0 % [facility] Specimen (Source) Anatomical Collection Method Collection Time Re ceived Time Location / / Volume Laterality 07/23/2021 07/28/2021 3:26 PM CDT Narrative APS SPECTRA [facility] - 07/28/2021 Unless otherwise specified, test(s) performed at: [facility], [address] [place] [address] YARDER PUNCHER: Yoseph Rose M.D. For any questions, please call customer service at FREQUENCY:MONTHLY Resulting Agency Comment Specimen source: Blood López Mariano MD LAB BLOOD ORDERABLES Performing Organization Address City/[facility] Code Phon e Number APS SPECTRA [facility] HD KINETICS (07/23/2021) P athologist Signature % Urea 69 65 - 80 % APS SPECTRA Reduction [facility] Specimen (Source) Anatomical Collection Method Collection Time Re ceived Time Location / / Volume Laterality 07/23/2021 07/28/2021 12:3 5 PM CDT Resulting Agency Comment Specimen source: Plasma López Mariano MD LAB BLOOD ORDERABLES Performing Organization Address City/[facility]/ZIP Code Phon e Number APS SPECTRA [facility] POST CHEMISTRY (07/23/2021) P athologist Signature BUN Post 18 6 - 19 APS SPECTRA Dialysis mg/dL [facility] Specimen (Source) Anatomical Collection Method Collection Time Re ceived Time Location / / Volume Laterality 07/23/2021 07/28/2021 12:3 5 PM CDT Narrative APS SPECTRA [facility] - 07/28/2021 Unless otherwise specified, test(s) performed at: [facility], [address] [place] [address] YARDER PUNCHER: Yoseph Rose M.D. For any questions, please call customer service at FREQUENCY:MONTHLY Resulting Agency Comment Specimen source: Plasma López Mariano MD LAB BLOOD ORDERABLES Performing Organization Address City/State/ZIP Code Phon e Number APS SPECTRA [facility] IMMUNO CHEMISTRY (07/23/2021) P athologist Signature Hep B Surface Negative Negative APS SPECTRA Ag [facility] Hepatitis B 60 mIU/mL APS SPECTRA Surface Ab [facility] Comment: The anti-HBs (Hepatitis B surface antibo dy) is greater than or equal to 10 mIU/mL and implies immunity. The jaziel ent has either had an antibody response to HBV vaccination, received a transfusion, or has recovered from HBV infection. For post-vaccination antibody testing guidelines for the general public, refer to MMWR Dece 2004/Vol.54 (No. 16); -23, and for healthcare workers, refer to MMWR [...] The above test result was obtained using Siemens Centaur XP chemiluminescent method. Results obtaine d with different assay methods or kits cannot be used interchangeably. Specimen (Source) Anatomical Collection Method Collection Time Re ceived Time Location / / Volume Laterality 07/23/2021 07/28/2021 11:2 3 AM CDT Narrative APS SPECTRA [facility] - 07/28/2021 Unless otherwise specified, test(s) performed at: [facility], [address] [place] [id number] YARDER PUNCHER: Yoseph Rose M.D. For any questions, please call customer service at FREQUENCY:MONTHLY Resulting Agency Comment Specimen source: Serum López Mariano MD LAB BLOOD ORDERABLES Performing Organization Address City/State/ZIP Code Phon e Number APS SPECTRA [facility] (ABNORMAL) Spectrae Chemistry (07/23/2021) [facility] Method Time Signature BUN 59 (H) 6 - 19 APS SPECTRA mg/dL [facility] Creatinine 7.60 (H) 0.60 - APS SPECTRA 1.30 mg/dL [facility] BUN/Creatinine 7.8 (L) 10.0 - APS SPECTRA Ratio 20.0 [facility] Sodium 136 136 - 145 APS SPECTRA mEq/L [facility] Potassium 5.1 3.5 - 5.1 APS SPECTRA mEq/L [facility] Chloride 100 96 - 108 APS SPECTRA mEq/L [facility] Bicarbonate 21 (L) 22 - 29 APS SPECTRA (CO2) mEq/L [facility] Calcium 9.4 8.4 - 10.2 APS SPECTRA mg/dL [facility] Corrected 9.2 8.4 - 10.2 APS SPECTRA Calcium mg/dL [facility] Comment: Corrected Calcium is not equivalent to m easured Ionized Calcium. Phosphorus 4.4 2.6 - 4.5 mg/dL APS SPECTRA K [facility] Calcium Phosphorus Product 41 0 - 54 APS SPECTRA [facility] Calcium Phosporus Product, Cor 40 0 - 54 APS SPECTRA [facility] Alkaline Phosphatase 77 35 - 104 U/L APS SP ECTRA [facility] Total Protein 7.1 6.0 - 8.5 g/dL APS SPECTRA [facility] Albumin 4.3 3.5 - 5.2 g/dL APS SPECTRA [facility] [place] Globulin, Total 2.8 2.0 - 4.0 g/dL APS SPECT RA [facility] A/G Ratio 1.5 1.0 - 2.0 APS SPECTRA [facility] Magnesium 2.3 1.6 - 2.6 mg/dL APS SPECTRA [facility] Ferritin 516 (H) 10 - 291 ng/mL APS SPECTRA [facility] [place] Iron 57 30 - 160 mcg/dL APS SPECTRA [facility] UIBC 238 155 - 355 mcg/dL APS SPECTRA K [facility] TIBC 295 185 - 515 mcg/dL APS SPECTRA K [facility] Iron Saturation (TSat) 19 (L) 20 - 55 % APS SPE CTRA [facility] Specimen (Source) Anatomical Collection Method Collection Time Re ceived Time Location / / Volume Laterality 07/23/2021 07/28/2021 11:2 3 AM CDT Narrative APS SPECTRA [facility] - 07/28/2021 Unless otherwise specified, test(s) performed at: [facility], [address] [place] [address] YARDER PUNCHER: Yoseph Rose M.D. For any questions, please call customer service at FREQUENCY:MONTHLY Resulting Agency Comment Specimen source: Serum López Mariano MD LAB BLOOD ORDERABLES Performing Organization Address City/[facility] Phon e Number APS SPECTRA [facility] (ABNORMAL) Spectrae Chemistry (07/23/2021) P athologist Signature PTH 370 (H) 16 - 80 APS SPECTRA pg/mL [facility] Specimen (Source) Anatomical Collection Method Collection Time Re ceived Time Location / / Volume Laterality 07/23/2021 07/28/2021 10:0 8 AM CDT Narrative APS SPECTRA [facility] - 07/28/2021 Unless otherwise specified, test(s) performed at: [facility], [address] [place] [address] YARDER PUNCHER: Yoseph Rose M.D. For any questions, please call customer service at FREQUENCY:MONTHLY Resulting Agency Comment Specimen source: Plasma López Mariano MD LAB BLOOD ORDERABLES Performing Organization Address City/[facility] Phon e Number APS SPECTRA [facility] documented in this encounter Visit Diagnoses Not on filedocumented in this encounter
--- OUTSIDE RECORDS SUMMARY | 2021-12-28 14:06 | XMS_ITS | Encounter Summary ---
:1965 Author Organization [facility] Address [address] [place] [address] Care Team Providers Name Role Phone Unavailable Primary Care Provider Unavailable Encounter Details Date Type Department Care Team Description 09/17/2021 [facility] Only [facility] O f López Awad MD [phone] [place] [place] [address] [place], [place] [phone] [id number] (Wo rk) Social History Tobacco Use Types Packs/Day Years Used Date Smoking Tobacco: Never Assessed Sex Assigned at Date Recorded Not on file documented as of this encounter Plan of Treatment Not on filedocumented as of this encounter Procedures Procedure Name Priority Date/Time Associated Diagnosis Comme nts HD KINETICS Routine 09/17/2021 Results for thi s procedure are i n the results section . POST CHEMISTRY Routine 09/17/2021 Results for t his procedure are i n the results section . HEMATOLOGY Routine 09/17/2021 Results for thi s procedure are i n the results section . CHEMISTRY Routine 09/17/2021 Results for thi s procedure are i n the results section . SPECTRA [place] LAB RESULTS Routine 09/17/2021 Resul ts for this procedure are i n the results section . documented in this encounter Results Spectra [facility] Lab Results (09/17/2021) P athologist Signature eKt/V 1.37 [place] ([place]) nPCR_HD 1.09 [place] eKdrt/V 1.40 [place] spKt/V 1.59 [place] ([place]) PCR 68.51 [place] spKt/V Gotch 1.65 [place] eKt/V Gotch 1.40 [place] eNPCR 1.01 [place] Specimen (Source) Anatomical Location Collection Method / Collectio n Time Received Time / Laterality Volume 09/17/2021 09/17/2021 [place] Ordering Provider LAB BLOOD ORDERABLES Performing Organization Address City/State/ZIP Code Phon e Number [place] HD KINETICS (09/17/2021) P athologist Signature % Urea 75 65 - 80 % [facility]PS SPECTRA Reduction [facility] Specimen (Source) Anatomical Collection Method Collection Time Re ceived Time Location / / Volume Laterality 09/17/2021 09/18/2021 11:4 2 PM CDT Resulting Agency Comment Specimen source: Plasma López Mariano MD LAB BLOOD ORDERABLES Performing Organization Address City/[facility]/ZIP Code Phon e Number APS SPECTRA [facility] POST CHEMISTRY (09/17/2021) athologist Signature BUN Post 15 6 - 19 A[facility]PECTRA Dialysis mg/dL [facility] Specimen (Source) Anatomical Collection Method Collection Time Re ceived Time Location / / Volume Laterality 09/17/2021 09/18/2021 11:4 2 PM CDT Narrative APS SPECTRA [facility] - 09/19/2021 Unless otherwise specified, test(s) performed at: [facility], [address] [place] [address] DENTAL INSURANCE BILLER: Yoseph Rose M.D. For any questions, please call customer service at FREQUENCY:MONTHLY Resulting Agency Comment Specimen source: Plasma López Mariano MD LAB BLOOD ORDERABLES Performing Organization Address City/[facility]/ZIP Code Phon e Number [facility]PS SPECTRA [facility] (ABNORMAL) HEMATOLOGY (09/17/2021) [facility] gist Method Time Signature WBC 7.69 4.80 - [facility]PS [facility]PECTRA 10.80 [facility] 1000/mcL RBC 3.27 (L) 4.20 - APS SPECTRA 5.40 [facility] mill/mcL Hemoglobin 11.6 (L) 12.0 - APS [facility]PECTRA 16.0 g/dL [facility] Hemoglobin x 3 34.8 (L) 36.0 - [facility]RA 48.0 % [facility] Hematocrit 33.2 (L) 37.0 - APS SPECTRA 47.0 % [facility] MCV 102 (H) 80 - 100 APS SPECTRA fl [facility] MCH 35.7 (H) 27.0 - [facility]RA 31.0 pg [facility] MCHC 35.1 30.0 - [facility]PS [facility]PECTRA 36.0 g/dL [facility] RDW 12.3 11.5 - [facility]RA 14.5 % [facility] Neutrophils 83.3 (H) 40.0 - APS [facility]PECTRA 75.0 % [facility] Lymphocytes 9.6 (L) 19.0 - APS SPECTRA Relative 48.0 % [facility] Monocytes 4.0 3.0 - 10.0 APS SPECTRA % [facility] Eosinophils 1.5 0.0 - 7.0 [facility] Relative % [facility] Basophils 0.7 0.0 - 1.5 A[facility]RA Relative % [facility] JESSICA 1.0 0.0 - 4.0 APS SPECTRA % [facility] Platelets 220 130 - 400 APS SPECTRA 1000/mcL [facility] Specimen (Source) Anatomical Collection Method Collection Time Re ceived Time Location / / Volume Laterality 09/17/2021 09/18/2021 8:21 PM CDT Narrative APS SPECTRA [facility] - 09/19/2021 Unless otherwise specified, test(s) performed at: [facility], [address] [place] [address] DENTAL INSURANCE BILLER: Yoseph Rose M.D. For any questions, please call customer service at FREQUENCY:MONTHLY Resulting Agency Comment Specimen source: Blood López Mariano MD LAB BLOOD ORDERABLES Performing Organization Address City/State/ZIP Code Phon e Number APS SPECTRA [facility] (ABNORMAL) Spectrae Chemistry (09/17/2021) [facility] gist Method Time Signature BUN 60 (H) 6 - 19 APS SPECTRA mg/dL [facility] Creatinine 9.24 (H) 0.60 - APS SPECTRA 1.30 mg/dL [facility] BUN/Creatinine 6.5 (L) 10.0 - APS SPECTRA Ratio 20.0 [facility] Sodium 137 136 - 145 APS SPECTRA mEq/L [facility] Potassium 5.1 3.5 - 5.1 [facility]PECTRA mEq/L [facility] Chloride 98 96 - 108 A[facility]RA mEq/L [facility] Bicarbonate 24 22 - 29 APS SPECTRA (CO2) mEq/L [facility] Calcium 9.5 8.4 - 10.2 APS SPECTRA mg/dL [facility] Corrected 9.3 8.4 - 10.2 APS SPECTRA Calcium mg/dL [facility] Comment: Corrected Calcium is not equivalent to m easured Ionized Calcium. Phosphorus 4.8 (H) 2.6 - 4.5 mg/dL APS SPECTRA [facility] Calcium Phosphorus Product 46 0 - 54 APS SPECTRA [facility] Calcium Phosporus Product, Cor 45 0 - 54 APS SPECTRA [facility] Total Protein 7.6 6.0 - 8.5 g/dL APS SPECTRA [facility] Albumin 4.3 3.5 - 5.2 g/dL [facility] S[facility] [place] Globulin, Total 3.3 2.0 - 4.0 g/dL APS SPECT RA [facility] A/G Ratio 1.3 1.0 - 2.0 APS SPECTRA [facility] Iron 52 30 - 160 mcg/dL APS SPECTRA [place] [facility] UIBC 235 155 - 355 mcg/dL APS SPECTRA [facility] TIBC 287 185 - 515 mcg/dL APS SPECTRA [facility] Iron Saturation (TSat) 18 (L) 20 - 55 % APS SPE CTRA [facility] Specimen (Source) Anatomical Collection Method Collection Time Re ceived Time Location / / Volume Laterality 09/17/2021 09/18/2021 6:57 PM CDT Narrative APS SPECTRA [facility] - 09/18/2021 Unless otherwise specified, test(s) performed at: [facility], [address] [place] [address] DENTAL INSURANCE BILLER: Yoseph Rose M.D. For any questions, please call customer service at FREQUENCY:MONTHLY Resulting Agency Comment Specimen source: Serum López Mariano MD LAB BLOOD ORDERABLES Performing Organization Address City/State/ZIP Code Phon e Number APS SPECTRA [facility] documented in this encounter Visit Diagnoses Not on filedocumented in this encounter
--- OUTSIDE RECORDS SUMMARY | 2021-12-28 14:06 | XMS_ITS | Encounter Summary ---
:1965 Author Organization [facility] Address [address] [place] [address] Care Team Providers Name Role Phone Unavailable Primary Care Provider Unavailable Encounter Details Date Type Department Care Team Description 08/27/2021 [facility] Only [facility] O f López Awad MD [phone] [facility] [address] [place], [place] [phone] (Wo rk) Social History Tobacco Use Types Packs/Day Years Used Date Smoking Tobacco: Never Assessed Sex Assigned at Date Recorded Not on file documented as of this encounter Plan of Treatment Not on filedocumented as of this encounter Procedures Procedure Name Priority Date/Time Associated Diagnosis Comme nts HEMATOLOGY Routine 08/27/2021 Results for thi s procedure are in the resu lts section. documented in this encounter Results (ABNORMAL) HEMATOLOGY (08/27/2021) Analysis Performed At Patho logist Time Signature Hemoglobin 11.3 (L) 12.0 - APS SPECTRA 16.0 g/dL [facility] Hemoglobin x 3 33.9 (L) 36.0 - APS SPECTRA 48.0 % [facility] Specimen (Source) Anatomical Collection Method Collection Time Re ceived Time Location / / Volume Laterality 08/27/2021 08/28/2021 11:3 2 AM CDT Narrative APS SPECTRA [facility] - 08/28/2021 Unless otherwise specified, test(s) performed at: [facility], [address] [place] [id number] ORNAMENTAL METAL ERECTOR APPRENTICE: Yoseph Rose M.D. For any questions, please call customer service at FREQUENCY:OTHER Resulting Agency Comment Specimen source: Blood López Mariano MD LAB BLOOD ORDERABLES Performing Organization Address City/State/ZIP Code Phon e Number APS SPECTRA [facility] documented in this encounter Visit Diagnoses Not on filedocumented in this encounter
--- OUTSIDE RECORDS SUMMARY | 2021-12-28 14:06 | XMS_ITS | Encounter Summary ---
:1965 Author Organization [facility] Address [address] [place] [address] Care Team Providers Name Role Phone Unavailable Primary Care Provider Unavailable Encounter Details Date Type Department Care Team Description 10/15/2021 Orders Only [facility] O f López Awad MD [phone] [facility] [address] [place], [place] [phone] (Wo rk) Social History Tobacco Use Types Packs/Day Years Used Date Smoking Tobacco: Never Assessed Sex Assigned at Date Recorded Not on file documented as of this encounter Plan of Treatment Not on filedocumented as of this encounter Procedures Procedure Name Priority Date/Time Associated Diagnosis Comme nts HEMATOLOGY Routine 10/15/2021 Results for thi s procedure are in the resu lts section. documented in this encounter Results (ABNORMAL) HEMATOLOGY (10/15/2021) Analysis Performed At Patho logist Time Signature Hemoglobin 11.8 (L) 12.0 - APS SPECTRA 16.0 g/dL [facility] Hemoglobin x 3 35.4 (L) 36.0 - APS SPECTRA 48.0 % [facility] Specimen (Source) Anatomical Collection Method Collection Time Re ceived Time Location / / Volume Laterality 10/15/2021 10/16/2021 9:11 AM CDT Narrative APS SPECTRA [facility] - 10/16/2021 Unless otherwise specified, test(s) performed at: [facility], [address] [place] [address] NETWORK SUPPORT MANAGER: Yoseph Rose M.D. For any questions, please call customer service at FREQUENCY:OTHER Resulting Agency Comment Specimen source: Blood López Mariano MD LAB BLOOD ORDERABLES Performing Organization Address City/State/ZIP Code Phon e Number APS SPECTRA [facility] documented in this encounter Visit Diagnoses Not on filedocumented in this encounter
--- OUTSIDE RECORDS SUMMARY | 2021-12-28 14:06 | XMS_ITS | Encounter Summary ---
:1965 Author Organization [facility] Address [address] [place] [address] Care Team Providers Name Role Phone Unavailable Primary Care Provider Unavailable Encounter Details Date Type Department Care Team Description 08/20/2021 Orders Only [facility] O f López Awad MD [phone] [place] [address] [place], [place] [phone] (Wo rk) Social History Tobacco Use Types Packs/Day Years Used Date Smoking Tobacco: Never Assessed Sex Assigned at Date Recorded Not on file documented as of this encounter Plan of Treatment Not on filedocumented as of this encounter Procedures Procedure Name Priority Date/Time Associated Diagnosis Comme nts HD KINETICS Routine 08/20/2021 Results for thi s procedure are i n the results section . POST CHEMISTRY Routine 08/20/2021 Results for t his procedure are i n the results section . HEMATOLOGY Routine 08/20/2021 Results for thi s procedure are i n the results section . CHEMISTRY Routine 08/20/2021 Results for thi s procedure are i n the results section . SPECTRA [facility] LAB RESULTS Routine 08/20/2021 Resul ts for this procedure are i n the results section . documented in this encounter Results Spectra [facility] Lab Results (08/20/2021) P athologist Signature spKt/V 1.55 [facility] ([place] II) eKt/V 1.34 [place] ([place]) nPCR_HD 0.91 [facility] eNPCR 0.85 [place] PCR 58.60 [place] eKt/V Gotch 1.36 [place] eKdrt/V 1.36 [place] spKt/V Gotch 1.60 [facility] Specimen (Source) Anatomical Location Collection Method / Collectio n Time Received Time / Laterality Volume 08/20/2021 08/20/2021 [place] Ordering Provider LAB BLOOD ORDERABLES Performing Organization Address City/State/ZIP Code Phon e Number [facility] HD KINETICS (08/20/2021) athologist Signature % Urea 73 65 - 80 % APS SPECTRA Reduction [facility] Specimen (Source) Anatomical Collection Method Collection Time Re ceived Time Location / / Volume Laterality 08/20/2021 08/21/2021 11:0 1 PM CDT Resulting Agency Comment Specimen source: Plasma López Mariano MD LAB BLOOD ORDERABLES Performing Organization Address City/[facility]/ZIP Code Phon e Number APS SPECTRA [facility] POST CHEMISTRY (08/20/2021) athologist Signature BUN Post 13 6 - 19 APS SPECTRA Dialysis mg/dL [facility] Specimen (Source) Anatomical Location Collection Method / Collectio n Time Received Time / Laterality Volume 08/20/2021 08/22/2021 Narrative APS SPECTRA [facility] - 08/22/2021 Unless otherwise specified, test(s) performed at: [facility], [address] [place] [address] [employer] GUIDE: Yoseph Rose M.D. For any questions, please call customer service at FREQUENCY:MONTHLY Resulting Agency Comment Specimen source: Plasma López Mariano MD LAB BLOOD ORDERABLES Performing Organization Address City/[facility]/ZIP Code Phon e Number APS SPECTRA [facility] (ABNORMAL) Spectrae Chemistry (08/20/2021) [facility] gist Method Time Signature BUN 49 (H) 6 - 19 APS SPECTRA mg/dL [facility] Creatinine 8.03 (H) 0.60 - APS SPECTRA 1.30 mg/dL [facility] BUN/Creatinine 6.1 (L) 10.0 - APS SPECTRA Ratio 20.0 [facility] Sodium 136 136 - 145 APS SPECTRA mEq/L [facility] Potassium 4.7 3.5 - 5.1 APS SPECTRA mEq/L [facility] Chloride 100 96 - 108 APS SPECTRA mEq/L [facility] Bicarbonate 24 22 - 29 APS SPECTRA (CO2) mEq/L [facility] Calcium 9.0 8.4 - 10.2 APS SPECTRA mg/dL [facility] Corrected 8.8 8.4 - 10.2 APS SPECTRA Calcium mg/dL [...] g/dL [facility]PS SPECTRA [facility] [place] Globulin, Total 2.9 2.0 - 4.0 g/dL APS SPECT RA [facility] A/G Ratio 1.4 1.0 - 2.0 APS SPECTRA [facility] Iron 79 30 - 160 mcg/dL APS SPECTRA [place] [facility] UIBC 212 155 - 355 mcg/dL APS SPECTRA [facility] TIBC 291 185 - 515 mcg/dL APS SPECTRA [facility] Iron Saturation (TSat) 27 20 - 55 % APS SPE CTRA [facility] Specimen (Source) Anatomical Collection Method Collection Time Re ceived Time Location / / Volume Laterality 08/20/2021 08/21/2021 11:2 4 AM CDT Narrative APS SPECTRA [facility] - 08/21/2021 Unless otherwise specified, test(s) performed at: [facility], [address] [place] [address] [employer] T[employer] GUIDE: Yoseph Rose M.D. For any questions, please call customer service at FREQUENCY:MONTHLY Resulting Agency Comment Specimen source: Serum López Mariano MD LAB BLOOD ORDERABLES Performing Organization Address City/State/ZIP Code Phon e Number APS SPECTRA [facility] (ABNORMAL) HEMATOLOGY (08/20/2021) [facility] gist Method Time Signature WBC 5.64 4.80 - APS SPECTRA 10.80 [facility] 1000/mcL RBC 3.11 (L) 4.20 - APS SPECTRA 5.40 [facility] mill/mcL Hemoglobin 10.9 (L) 12.0 - APS SPECTRA 16.0 g/dL [facility] Hemoglobin x 3 32.7 (L) 36.0 - APS SPECTRA 48.0 % [facility] Hematocrit 31.6 (L) 37.0 - APS SPECTRA 47.0 % [facility] MCV 102 (H) 80 - 100 APS SPECTRA fl [facility] MCH 35.1 (H) 27.0 - APS SPECTRA 31.0 pg [facility] MCHC 34.6 30.0 - APS SPECTRA 36.0 g/dL [facility] RDW 13.4 11.5 - APS SPECTRA 14.5 % [facility] Neutrophils 75.3 (H) 40.0 - APS SPECTRA 75.0 % [facility] Lymphocytes 16.6 (L) 19.0 - APS SPECTRA Relative 48.0 % [facility] Monocytes 4.6 3.0 - 10.0 APS SPECTRA % [facility] Eosinophils 2.3 0.0 - 7.0 APS SPECTRA Relative % [facility] Basophils 0.4 0.0 - 1.5 APS SPECTRA Relative % [facility] JESSICA 0.9 0.0 - 4.0 APS SPECTRA % [facility] Platelets 201 130 - 400 APS SPECTRA 1000/mcL [facility] Specimen (Source) Anatomical Collection Method Collection Time Re ceived Time Location / / Volume Laterality 08/20/2021 08/21/2021 3:39 PM CDT Narrative APS SPECTRA [facility] - 08/21/2021 Unless otherwise specified, test(s) performed at: [facility], [address] [place], [place] [id number] [employer] T[employer] GUIDE: Yoseph Rose M.D. For any questions, please call customer service at FREQUENCY:MONTHLY Resulting Agency Comment Specimen source: Blood López Mariano MD LAB BLOOD ORDERABLES Performing Organization Address City/State/ZIP Code Phon e Number APS SPECTRA [facility] documented in this encounter Visit Diagnoses Not on filedocumented in this encounter
--- OUTSIDE RECORDS SUMMARY | 2021-12-28 14:06 | XMS_ITS | Encounter Summary ---
:1965 Author Organization [facility] Address [address] [place] [address] Care Team Providers Name Role Phone Unavailable Primary Care Provider Unavailable Encounter Details Date Type Department Care Team Description 12/10/2021 [facility] Only [facility] O f López Awad MD [phone] [place] [address] [place], [place] [phone] (Wo rk) Social History Tobacco Use Types Packs/Day Years Used Date Smoking Tobacco: Never Assessed Sex Assigned at Date Recorded Not on file documented as of this encounter Plan of Treatment Not on filedocumented as of this encounter Procedures Procedure Name Priority Date/Time Associated Diagnosis Comme nts HEMATOLOGY Routine 12/10/2021 Results for thi s procedure are in the resu lts section. CHEMISTRY Routine 12/10/2021 Results for thi s procedure are in the resu lts section. documented in this encounter Results HEMATOLOGY (12/10/2021) P athologist Signature Hemoglobin 12.2 12.0 - APS SPECTRA 16.0 g/dL [facility] Hemoglobin x 3 36.6 36.0 - APS SPECTRA 48.0 % [facility] Specimen (Source) Anatomical Collection Method Collection Time Re ceived Time Location / / Volume Laterality 12/10/2021 12/11/2021 10:3 6 AM CDT Narrative APS SPECTRA [facility] - 12/11/2021 Unless otherwise specified, test(s) performed at: [facility], [address] [place] [address], [place] [address] PRODUCT MANAGER: John Hernandez M.D., Ph.D For any questions, please call customer service at FREQUENCY:OTHER Resulting Agency Comment Specimen source: Blood López Mariano MD LAB BLOOD ORDERABLES Performing Organization Address City/State/ZIP Code Phon e Number APS SPECTRA [facility] (ABNORMAL) Spectrae Chemistry (12/10/2021) P athologist Signature PTH 287 (H) 16 - 80 APS SPECTRA pg/mL [facility] Specimen (Source) Anatomical Collection Method Collection Time Re ceived Time Location / / Volume Laterality 12/10/2021 12/11/2021 10:4 4 AM CDT Narrative APS SPECTRA [facility] - 12/11/2021 Unless otherwise specified, test(s) performed at: [facility], [address] [place] [address] [facility] [place] [address] PRODUCT MANAGER: John Hernandez M.D., Ph.D For any questions, please call customer service at FREQUENCY:OTHER Resulting Agency Comment Specimen source: Plasma López Mariano MD LAB BLOOD ORDERABLES Performing Organization Address City/State/ZIP Code Phon e Number APS SPECTRA [facility] documented in this encounter Visit Diagnoses Not on filedocumented in this encounter
--- OUTSIDE RECORDS SUMMARY | 2021-12-28 14:06 | XMS_ITS | Encounter Summary ---
:1965 Author Organization [facility] Address [address] [place] [address] Care Team Providers Name Role Phone Unavailable Primary Care Provider Unavailable Encounter Details Date Type Department Care Team Description 07/09/2021 Treatment [facility] López Awad MD [address] [place], [place] [phone] (Wo rk) Social History Tobacco Use Types Packs/Day Years Used Date Smoking Tobacco: Never Assessed Sex Assigned at Date Recorded Not on file documented as of this encounter Miscellaneous Notes Dialysis Note - López Mariano MD - 07/09/2021 12:25 PM CDT Date: Jul 09, 2021 Patient Name: Stephanie Norman : 1965 Chart #: [id number] Sex: F This patient was personally seen for a basic visit as part of routine weekly dialysis care. A reviewof the dialysis treatment, blood pressure, estimated dry weight and recent lab values was made. These were discussed with the patient and staff as necessary. Treatment Data for 07/09/2021 started at:11:36 AM Dialyzer: 180NRe Optiflux Na: 137 mEq/L Bicarb: 31 mEq/L Dialysate: 2.0 K, 2.25 Ca, 1.0 Mg, 100 Dextrose (G2231) Dialysate/Machine Temp (prescribed): 37 C Dialysate/Machine Temp (actual): 36.5 C BFR (prescribed): 400 BFR (actual): 400 Prescribed time: 03:30 EDW: 89 kg Access Type: Active (In Use):AVFistula-Standard/Left Upper Arm Pre Dialysis Vitals (for 07/09/2021 11:29 AM ) Pre BP (sit): 139/68 Pre Wt: 92.4 kg Temp: 95.8 F Post Dialysis Vitals (for 07/07/2021 3:10 PM ) Post BP (sit): 131/70 Post Wt: 91 kg Current Dialysis Vitals (for 07/09/2021 12:02 PM ) BP (sit): 124/63 AP(-) / LAND MANAGEMENT SUPERVISOR: 140/161 Pulse: 61 Chairside data as of 07/09/2021 12:02 PM Last 3 Treatments 07/07/2021 07/04/2021 07/02/2021 EDW (kg) 89 89 89 Weight Pre (kg) 93.4 92.9 92.7 Weight Post (kg) 91 91.1 90.4 Dialytic Weight Loss (kg) -2.4 -1.8 -2.3 EDW Deviation (kg) 2 2.1 1.4 BP Sit Pre 141/60 138/73 141/72 BP Sit Post 131/70 129/59 131/66 UF Rate (mL/kg/hr) 8 6 7 Prescribed BFR 400 400 400 Average Delivered BFR 400 400 400 Prescribed Treatment Time 03:30 03:30 03:30 Actual Treatment Time 03:31 03:30 03:32 Last 2 Values 06/27/2021 05/23/2021 Access Flow 1712 171 Treatment Medication Orders Medication Sig Start Date End Date Heparin Sodium (Porcine) 1,000 Units/mL Systemic 4000 units IVP Every Treatment 02/26/2021 02/25/2022 Heparin Sodium (Porcine) 1,000 Units/mL Systemic 2000 units IVP Every Treatment 02/26/2021 02/25/2022 Vitamin D (Calcitriol) Oral 0.25 mcg ORAL Every Treatment 2021 03/09/2022 CHILLER OPERATOR: López Mariano MD LOCATION: [phone] SCHEDULE: -- 2nd Shift ACCESS: EDW: kg. DIALYZER: HD DURATION: NEEDLE SIZE: ANTICOAG: BATH: QB: ml/min QD: ml/min Subjective No new complaints. 07/09/21: Her appetite has been voracious recently, food tastes good again. BP low with trying to reach EDW. She feels excellent. 06/25/21: She feels excellent and has no concerns. She denies CP, SOB, edema, cramps or any other symptoms. 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 05/21/21: Stephanie is feeling well today. She feels hemo is going really well. 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 She denies CP, SOB, edema. 05/14/21: [...] Wednesday. 02/12/21: She saw gen surgery at [facility], sending her [facility] to see Dr. Hudson given PKD and [...] get to run. PCAD placed yesterday at [facility], fistulagram now with open access. This is [...] and no changes were made. BUN mg/dL 46 (06/25/21) 43 (06/18/21) 53 (05/21/21) 32 (04/23/21) 28 (03/19/21) UREA NITROGEN (MG/DL) IN SER/PLAS - POST DIALYSIS mg/dL 13 (06/25/21) 14 (06/18/21) 15 (05/21/21) 9 (04/23/21) 7 (03/19/21) URR % 72 (06/25/21) 67 (06/18/21) 72 (05/21/21) 72 (04/23/21) 75 (03/19/21) spKt/V Gotch 1.52 (06/25/21) 1.35 (06/18/21) 1.46 (05/21/21) 1.45 (04/23/21) 1.51 (03/19/21) eKdrt/V 1.29 (06/25/21) 1.15 (06/18/21) 1.24 (05/21/21) 1.4 (04/23/21) 1.46 (03/19/21) spKt/V (Daugirdas II) 1.4700 (06/25/21) 1.3100 (06/18/21) 1.4300 (05/21/21) 1.4300 (04/23/21) 1.5100 (03/19/21) HEMOGLOBIN (G/DL) IN BLOOD g/dL 11.5 (07/02/21) 11.2 (06/25/21) 10.8 (06/18/21) 11.4 (06/11/21) 10.5 (06/04/21) PLATELETS 1000/mcL 228 (06/18/21) 237 (05/21/21) 234 (04/23/21) 242 (03/19/21) 261 (02/19/21) IRON SATURATION % 23 (06/18/21) 29 (05/21/21) 14 (04/23/21) 26 (03/19/21) 19 (02/19/21) FERRITIN ng/mL 783 (06/25/21) 868 (04/23/21) 744 (03/26/21) 479 (02/26/21) 486 (01/24/21) ALBUMIN (G/DL) g/dL 4.1 (06/18/21) 4.5 (05/21/21) 4.4 (04/23/21) Sodium mEq/L 138 (06/18/21) 136 (05/21/21) 137 (04/23/21) POTASSIUM (MMOL/L) IN SER/PLAS mEq/L 5.0 (06/18/21) 4.9 (05/21/21) 4.6 (04/23/21) BICARBONATE (CO2) mEq/L 25 (06/18/21) 26 (05/21/21) 27 (04/23/21) 25 OH VITAMIN D ng/mL 11.6 (04/24/20) 19.9 (04/21/19) 25.6 (02/20/19) BUN/CREATININE (MASS RATIO) IN SER/PLAS 5.8 (06/18/21) 6.9 (05/21/21) 4.2 (04/23/21) GLUCOSE (MG/DL) IN SER/PLAS mg/dL 82 (05/08/19) VOLUME OF URINE mL 300 (12/18/20) 300 (10/23/20) 300 (10/09/20) Calcium mg/dL 9.2 (06/18/21) 9.7 (05/21/21) 9.7 (04/23/21) Calcium Phos Product 36 (06/18/21) 41 (05/21/21) 36 (04/23/21) CALCIUM (MG/DL) CORRECTED FOR ALBUMIN IN SER/PLAS mg/dL 9.1 (06/18/21) 9.3 (05/21/21) 9.4 (04/23/21) PHOSPHATE (MG/DL) IN SER/PLAS mg/dL 3.9 (06/18/21) 4.2 (05/21/21) 3.7 (04/23/21) IPTH pg/mL 283 (04/23/21) 342 (03/19/21) 398 (03/03/21) Vascular Access Assessment: Type of access: Fistula Fistulagram 12/2020 patent and no stenosis. Working well now was of 02/2021 Impression and Plan Stable dialysis, no changes today beside increase in EDW to 90 Kg López Mariano MD [ Signed And locked electronically On 07/09/2021 at 12:26:56 PM ] Transcribed: López Mariano ( 07/09/2021 ) documented in this encounter Plan of Treatment Not on filedocumented as of this encounter Visit Diagnoses Not on filedocumented in this encounter
--- OUTSIDE RECORDS SUMMARY | 2021-12-28 14:06 | XMS_ITS | Encounter Summary ---
:1965 Author Organization [facility] Address [address] [place] [address] Care Team Providers Name Role Phone Unavailable Primary Care Provider Unavailable Encounter Details Date Type Department Care Team Description 10/15/2021 Treatment [facility] López Awad MD [address] [place], [place] [phone] (Wo rk) Social History Tobacco Use Types Packs/Day Years Used Date Smoking Tobacco: Never Assessed Sex Assigned at Date Recorded Not on file documented as of this encounter Miscellaneous Notes Dialysis Note - López Mariano MD - 10/15/2021 12:45 PM CDT Date: Oct 15, 2021 Patient Name: Stephanie Norman : 1965 Chart #: [id number] Sex: F This patient was personally seen for a basic visit as part of routine weekly dialysis care. A reviewof the dialysis treatment, blood pressure, estimated dry weight and recent lab values was made. These were discussed with the patient and staff as necessary. Treatment Data for 10/15/2021 started at:11:27 AM Dialyzer: 180NRe Optiflux Na: 137 mEq/L Bicarb: 31 mEq/L Dialysate: 2.0 K, 2.5 Ca, 1.0 Mg, 100 Dextrose (G2251) Dialysate/Machine Temp (prescribed): 37 C Dialysate/Machine Temp (actual): 37 C BFR (prescribed): 400 BFR (actual): 450 Prescribed time: 03:30 EDW: 91 kg Access Type: Active (In Use):AVFistula-Standard/Left Upper Arm Pre Dialysis Vitals (for 10/15/2021 11:21 AM ) Pre BP (sit): 138/62 Pre Wt: 94.3 kg Temp: 97.2 F Post Dialysis Vitals (for 10/13/2021 3:06 PM ) Post BP (sit): 121/58 Post Wt: 92.8 kg Current Dialysis Vitals (for 10/15/2021 12:33 PM ) BP (sit): 112/61 AP(-) / DIRECTOR COST: 202/135 Pulse: 66 Chairside data as of 10/15/2021 12:33 PM Last 3 Treatments 10/13/2021 10/10/2021 10/08/2021 EDW (kg) 91 91 91 Weight Pre (kg) 94.1 93.1 94.6 Weight Post (kg) 92.8 90.9 91.7 Dialytic Weight Loss (kg) -1.3 -2.2 -2.9 EDW Deviation (kg) 1.8 -0.1 0.7 BP Sit Pre 132/66 123/56 130/68 BP Sit Post 121/58 115/57 112/51 UF Rate (mL/kg/hr) 4 7 9 Prescribed BFR 400 400 400 Average Delivered BFR 380 450 450 Prescribed Treatment Time 03:30 03:30 03:30 Actual Treatment Time 03:33 03:31 03:33 Last 3 Values 09/26/2021 06/27/2021 05/23/2021 Access [...] 0.25 mcg ORAL Every Treatment 2021 03/09/2022 MANAGER PATIENT: López Mariano MD LOCATION: [phone] SCHEDULE: M-W- 2nd Shift ACCESS: EDW: kg. DIALYZER: HD DURATION: NEEDLE SIZE: ANTICOAG: BATH: QB: ml/min QD: ml/min Subjective No new complaints. 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 She is [...] cramps or any other symptoms. 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 05/21/21: Stephanie is feeling well today. She feels hemo is going really well. 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 She denies CP, SOB, edema. 05/14/21: [...] fill out today again for her work ([employer] paperwork). Access now working well, day with 2 needles and to advance needles on Wednesday. 02/12/21: She saw gen surgery at [facility], sending her up to [facility] to see Dr. Hudson given PKD and future tx and [place] nephrectomies possible. She is liking HD, thinks [...] and no changes were made. BUN mg/dL 60 (09/17/21) 49 (08/20/21) 49 [...] (08/20/21) 1.5100 (08/01/21) 1.3700 (07/23/21) 1.4700 (06/25/21) HEMOGLOBIN (G/DL) IN BLOOD g/dL 11.3 (10/08/21) 11.1 (10/01/21) 10.7 (09/24/21) 11.6 (09/17/21) 10.6 (09/10/21) PLATELETS 1000/mcL 220 (09/17/21) 201 (08/20/21) 228 (06/18/21) 237 (05/21/21) 234 (04/23/21) IRON SATURATION % 18 (09/17/21) 27 (08/20/21) 19 (07/23/21) 23 (06/18/21) 29 (05/21/21) FERRITIN ng/mL 516 (07/23/21) 783 (06/25/21) 868 (04/23/21) 744 (03/26/21) 479 (02/26/21) ALBUMIN (G/DL) g/dL 4.3 (09/17/21) 4.2 (08/20/21) 4.3 (07/23/21) Sodium mEq/L 137 (09/17/21) 136 (08/20/21) 136 (07/23/21) POTASSIUM (MMOL/L) IN SER/PLAS mEq/L 5.1 (09/17/21) 4.7 (08/20/21) 5.1 (07/23/21) BICARBONATE (CO2) mEq/L 24 (09/17/21) 24 (08/20/21) 21 (07/23/21) 25 OH VITAMIN D ng/mL 11.6 (04/24/20) 19.9 (04/21/19) 25.6 (02/20/19) BUN/CREATININE (MASS RATIO) IN SER/PLAS 6.5 (09/17/21) 6.1 (08/20/21) 7.8 (07/23/21) GLUCOSE (MG/DL) IN SER/PLAS mg/dL 82 (05/08/19) VOLUME OF URINE mL 300 (12/18/20) 300 (10/23/20) 300 (10/09/20) Calcium mg/dL 9.5 (09/17/21) 9.0 (08/20/21) 9.4 (07/23/21) Calcium Phos Product 46 (09/17/21) 43 (08/20/21) 41 (07/23/21) CALCIUM (MG/DL) CORRECTED FOR ALBUMIN IN SER/PLAS mg/dL 9.3 (09/17/21) 8.8 (08/20/21) 9.2 (07/23/21) PHOSPHATE (MG/DL) IN SER/PLAS mg/dL 4.8 (09/17/21) 4.8 (08/20/21) 4.4 (07/23/21) IPTH pg/mL 370 (07/23/21) 283 (04/23/21) 342 (03/19/21) Vascular Access Assessment: Type of access: Fistula Fistulagram 12/2020 patent and no stenosis. Working well now was of 02/2021 Impression and Plan Stable dialysis, no changes today Working on quitting smoking, continues to slowly cut back She will try using low dose Ropinerole on days when she feels restless and has restless legs while at HD to see if this helps. It only happens 2-3 times/month López Mariano MD [ Signed And locked electronically On 10/15/2021 at 12:47:52 PM ] Transcribed: López Mariano ( 10/15/2021 ) documented in this encounter Plan of Treatment Not on filedocumented as of this encounter Visit Diagnoses Not on filedocumented in this encounter
--- OUTSIDE RECORDS SUMMARY | 2021-12-28 14:07 | XMS_ITS | Encounter Summary ---
:1965 Author Organization [facility] Address [address] [place] [address] Care Team Providers Name Role Phone Unavailable Primary Care Provider Unavailable Encounter Details Date Type Department Care Team Description 06/04/2021 Treatment [facility] f López Awad MD [address] [place], [place] [phone] (Wo rk) Social History Tobacco Use Types Packs/Day Years Used Date Smoking Tobacco: Never Assessed Sex Assigned at Date Recorded Not on file documented as of this encounter Miscellaneous Notes Dialysis Note - López Mariano MD - 06/04/2021 12:19 PM CST Date: Jun 04, 2021 Patient Name: Stephanie Norman : 1965 Chart #: [id number] Sex: F This patient was personally seen for a basic visit as part of routine weekly dialysis care. A reviewof the dialysis treatment, blood pressure, estimated dry weight and recent lab values was made. These were discussed with the patient and staff as necessary. Treatment Data for 06/04/2021 started at:11:30 AM Dialyzer: 180NRe Optiflux Na: 137 mEq/L Bicarb: 31 mEq/L Dialysate: 2.0 K, 2.25 Ca, 1.0 Mg, 100 Dextrose (G2231) Dialysate/Machine Temp (prescribed): 37 C Dialysate/Machine Temp (actual): 37 C BFR (prescribed): 400 BFR (actual): 400 Prescribed time: 03:30 EDW: 89 kg Access Type: Active (In Use):AVFistula-Standard/Left Upper Arm Pre Dialysis Vitals (for 06/04/2021 11:22 AM ) Pre BP (sit): 139/73 Pre Wt: 90.6 kg Temp: 95 F Post Dialysis Vitals (for 06/02/2021 3:50 PM ) Post BP (sit): 116/61 Post Wt: 88.8 kg Current Dialysis Vitals (for 06/04/2021 12:00 PM ) BP (sit): 137/68 AP(-) / INSTRUCTOR WEAVING: 190/200 Pulse: 66 Chairside data as of 06/04/2021 12:00 PM Last 3 Treatments 06/02/2021 05/30/2021 05/28/2021 EDW (kg) 89 89 89 Weight Pre (kg) 90.4 89.8 89.5 Weight Post (kg) 88.8 88.5 88.3 Dialytic Weight Loss (kg) -1.6 -1.3 -1.2 EDW Deviation (kg) -0.2 -0.5 -0.7 BP Sit Pre 138/60 142/72 169/83 BP Sit Post 116/61 135/65 138/69 UF Rate (mL/kg/hr) 5 4 4 Prescribed BFR 400 400 400 Average Delivered BFR 350 400 390 Prescribed Treatment Time 03:30 03:30 03:30 Actual Treatment Time 03:38 03:30 03:32 Last 1 Values 05/23/2021 Access Flow 1715 Treatment Medication Orders Medication Sig Start Date End Date Heparin Sodium (Porcine) 1,000 Units/mL Systemic 4000 units IVP Every Treatment 02/26/2021 02/25/2022 Heparin Sodium (Porcine) 1,000 Units/mL Systemic 2000 units IVP Every Treatment 02/26/2021 02/25/2022 Vitamin D (Calcitriol) Oral 0.25 mcg ORAL Every Treatment 2021 03/09/2022 ENVIRONMENTAL STUDIES FACULTY MEMBER: López Mariano MD LOCATION: [phone] SCHEDULE: -W- 2nd Shift ACCESS: EDW: kg. DIALYZER: HD DURATION: NEEDLE SIZE: ANTICOAG: BATH: QB: ml/min QD: ml/min Subjective No new complaints. 06/04/21: Doing great, feels excellent, working multimedia [...] Wednesday. 02/12/21: She saw gen surgery at [facility], sending her up to [facility] to see Dr. Hudson given PKD and future tx and [place] nephrectomies possible. She is liking HD, thinks [...] get to run. PCAD placed yesterday at [facility], fistulagram now with [...] I10 Exam Respiratory - nl effort Cardiovascular Regular rate. Regular rhythm. Edema - No [...] no changes were made. BUN mg/dL 53 (05/21/21) 32 (04/23/21) 28 (03/19/21) 35 (02/26/21) 34 (02/19/21) UREA NITROGEN (MG/DL) IN SER/PLAS - POST DIALYSIS mg/dL 15 (05/21/21) 9 (04/23/21) 7 (03/19/21) 12 (02/26/21) 14 (02/19/21) URR % 72 (05/21/21) 72 (04/23/21) 75 (03/19/21) 66 (02/26/21) 59 (02/19/21) spKt/V Gotch 1.46 (05/21/21) 1.45 (04/23/21) 1.51 (03/19/21) 1.19 (02/26/21) 1 (02/19/21) eKdrt/V 1.24 (05/21/21) 1.4 (04/23/21) 1.46 (03/19/21) 1.13 (02/26/21) .98 (02/19/21) spKt/V (Daugirdas II) 1.4300 (05/21/21) 1.4300 (04/23/21) 1.5100 (03/19/21) 1.1700 (02/26/21) 0.9800 (02/19/21) HEMOGLOBIN (G/DL) IN BLOOD g/dL 11.9 (05/28/21) 12.2 (05/21/21) 11.4 (05/14/21) 10.5 (05/07/21) 11.0 (04/30/21) PLATELETS 1000/mcL 237 (05/21/21) 234 (04/23/21) 242 (03/19/21) 261 (02/19/21) 217 (01/24/21) IRON SATURATION % 29 (05/21/21) 14 (04/23/21) 26 (03/19/21) 19 (02/19/21) 23 (01/24/21) FERRITIN ng/mL 868 (04/23/21) 744 (03/26/21) 479 (02/26/21) 486 (01/24/21) 592 (10/23/20) ALBUMIN (G/DL) g/dL 4.5 (05/21/21) 4.4 (04/23/21) 4.1 (03/19/21) Sodium mEq/L 136 (05/21/21) 137 (04/23/21) 136 (03/19/21) POTASSIUM (MMOL/L) IN SER/PLAS mEq/L 4.9 (05/21/21) 4.6 (04/23/21) 4.3 (03/19/21) BICARBONATE (CO2) mEq/L 26 (05/21/21) 27 (04/23/21) 26 (03/19/21) 25 OH VITAMIN D ng/mL 11.6 (04/24/20) 19.9 (04/21/19) 25.6 (02/20/19) BUN/CREATININE (MASS RATIO) IN SER/PLAS 6.9 (05/21/21) 4.2 (04/23/21) 3.7 (03/19/21) GLUCOSE (MG/DL) IN SER/PLAS mg/dL 82 (05/08/19) VOLUME OF URINE mL 300 (12/18/20) 300 (10/23/20) 300 (10/09/20) Calcium mg/dL 9.7 (05/21/21) 9.7 (04/23/21) 9.2 (03/19/21) Calcium Phos Product 41 (05/21/21) 36 (04/23/21) 35 (03/19/21) CALCIUM (MG/DL) CORRECTED FOR ALBUMIN IN SER/PLAS mg/dL 9.3 (05/21/21) 9.4 (04/23/21) 9.1 (03/19/21) PHOSPHATE (MG/DL) IN SER/PLAS mg/dL 4.2 (05/21/21) 3.7 (04/23/21) 3.8 (03/19/21) IPTH pg/mL 283 (04/23/21) 342 (03/19/21) 398 (03/03/21) Vascular Access Assessment: Type of access: Fistula Fistulagram 12/2020 patent and no stenosis. Working well now was of 02/2021 Impression and Plan Stable dialysis, no changes today Working on quitting smoking and she is down to 5/day López Mariano MD [ Signed And locked electronically On 06/04/2021 at 12:20:29 PM ] Transcribed: López Mariano ( 06/04/2021 ) documented in this encounter Plan of Treatment Not on filedocumented as of this encounter Visit Diagnoses Not on filedocumented in this encounter
--- OUTSIDE RECORDS SUMMARY | 2021-12-28 14:07 | XMS_ITS | Encounter Summary ---
:1965 Author Organization [facility] Address [address] [place] [address] Care Team Providers Name Role Phone Unavailable Primary Care Provider Unavailable Encounter Details Date Type Department Care Team Description 04/23/2021 Orders Only [facility] O f López Awad MD [phone] [place] [address] [place], [place] [phone] (Wo rk) Social History Tobacco Use Types Packs/Day Years Used Date Smoking Tobacco: Never Assessed Sex Assigned at Date Recorded Not on file documented as of this encounter Plan of Treatment Not on filedocumented as of this encounter Procedures Procedure Name Priority Date/Time Associated Diagnosis Comme nts HD KINETICS Routine 04/23/2021 Results for thi s procedure are i n the results section . SPECIAL CHEMISTRY Routine 04/23/2021 Results fo r this procedure are i n the results section . POST CHEMISTRY Routine 04/23/2021 Results for t his procedure are i n the results section . IMMUNO CHEMISTRY Routine 04/23/2021 Results for this procedure are i n the results section . TRACE ELEMENTS Routine 04/23/2021 Results for t his procedure are i n the results section . HEMATOLOGY Routine 04/23/2021 Results for thi s procedure are i n the results section . CHEMISTRY Routine 04/23/2021 Results for thi s procedure are i n the results section . CHEMISTRY Routine 04/23/2021 Results for thi s procedure are i n the results section . SPECTRA [place] LAB RESULTS Routine 04/23/2021 Resul ts for this procedure are i n the results section . documented in this encounter Results TRACE ELEMENTS (04/23/2021) P athologist Signature Aluminum <5 0 - 10 APS SPECTRA mcg/L [facility] Comment: This test was developed and its performa nce characteristics determined by [facility]. It has not been cleared or approved by the FDA. The laboratory is regulated under CLIA a s qualified to perform high complexity testing. This test is used fo r clinical purposes. It should not be regarded as investigational or fo r research. Specimen (Source) Anatomical Collection Method Collection Time Re ceived Time Location / / Volume Laterality 04/23/2021 04/25/2021 11:5 2 AM SUGARCANE RESEARCH TECHNICIAN Narrative APS SPECTRA [facility] - 04/27/2021 Unless otherwise specified, test(s) performed at: [facility], [address] [place], [place] [id number] SOLDERER TORCH: Yoseph Rose M.D. For any questions, please call customer service at FREQUENCY:MONTHLY Resulting Agency Comment Specimen source: Serum López Mariano MD LAB BLOOD ORDERABLES Performing Organization Address City/State/ZIP Code Phon e Number APS SPECTRA [facility] IMMUNO CHEMISTRY (04/23/2021) P athologist Signature Hepatitis B 75 mIU/mL APS SPECTRA Surface Ab [facility] Comment: The anti-HBs (Hepatitis B surface antibo dy) is greater than or equal to 10 mIU/mL and implies immunity. The jaziel ent has either had an antibody response to HBV vaccination, received a transfusion, or has recovered from HBV infection. For post-vaccination antibody testing guidelines for the general public, refer to MMWR Dece 2004/Vol.54 (No. 16); 1-23, and for healthcare workers, refer to MMWR April 07, 2013/Vol.62 (No. 10); 1-18. Reference Range: <10 mIU/mL ? Non-Immune >=10 mIU/mL ?Immune The magnitude of the measured result abo ve 10 mIU/mL is not indicative of the total amount of antibody present. Hep B Surface Ag Negative Negative APS SPECTRA [facility] Hep B Core Total Ab Negative Negative APS SPECTR A [facility] Comment: Hep B Core Ab, Total appears during the acute infection stage and remains reactive/positive throughout the recovery stage. The above test result was obtained using Siemens Liberty Dialysisaur XP chemiluminescent method. Results obtaine d with different assay methods or kits cannot be used interchangeably. Specimen (Source) Anatomical Collection Method Collection Time Re ceived Time Location / / Volume Laterality 04/23/2021 04/25/2021 1:51 PM SUGARCANE RESEARCH TECHNICIAN Narrative APS SPECTRA [facility] - 04/27/2021 Unless otherwise specified, test(s) performed at: [facility], [address] [place], [place] [address] SOLDERER TORCH: Yoseph Rose M.D. For any questions, please call customer service at FREQUENCY:MONTHLY Resulting Agency Comment Specimen source: Serum López Mariano MD LAB BLOOD ORDERABLES Performing Organization Address City/State/ZIP Code Phon e Number APS SPECTRA [facility] Spectra [place] Lab Results (04/23/2021) P athologist Signature eKt/V 1.23 [place] ([place]) spKt/V Gotch 1.45 [place] PCR 42.34 [place] eKt/V Gotch 1.24 [place] spKt/V 1.43 [place] ([place]) nPCR_HD 0.66 [place] eNPCR 0.62 [place] eKdrt/V 1.40 [place] Specimen (Source) Anatomical Location Collection Method / Collectio n Time Received Time / Laterality Volume 04/23/2021 04/23/2021 [place] Ordering Provider LAB BLOOD ORDERABLES Performing Organization Address City/[facility]/ZIP Code Phon e Number [place] SPECIAL CHEMISTRY (04/23/2021) P athologist Signature Vitamin D, 29.1 19.9 - APS SPECTRA 1,25-Dihydroxy 79.3 pg/mL [facility] Specimen (Source) Anatomical Collection Method Collection Time Re ceived Time Location / / Volume Laterality 04/23/2021 04/25/2021 1:51 PM SUGARCANE RESEARCH TECHNICIAN Narrative APS SPECTRA [facility] - 04/26/2021 Unless otherwise specified, test(s) performed at: [facility], [address] [place], [place] [id number] SOLDERER TORCH: Yoseph Rose M.D. For any questions, please call customer service at FREQUENCY:MONTHLY Resulting Agency Comment Specimen source: Serum López Mariano MD LAB BLOOD BANK TEST ORDERABL ES Performing Organization Address City/State/ZIP Code Phon e Number APS SPECTRA [facility] HD KINETICS (04/23/2021) P athologist Signature % Urea 72 65 - 80 % APS SPECTRA Reduction [facility] Specimen (Source) Anatomical Collection Method Collection Time Re ceived Time Location / / Volume Laterality 04/23/2021 04/25/2021 1:55 PM SUGARCANE RESEARCH TECHNICIAN Resulting Agency Comment Specimen source: Serum López Mariano MD LAB BLOOD ORDERABLES Performing Organization Address City/State/ZIP Code Phon e Number APS SPECTRA [facility] POST CHEMISTRY (04/23/2021) P athologist Signature BUN Post 9 6 - 19 APS SPECTRA Dialysis mg/dL [facility] Specimen (Source) Anatomical Collection Method Collection Time Re ceived Time Location / / Volume Laterality 04/23/2021 04/25/2021 1:17 PM SUGARCANE RESEARCH TECHNICIAN Narrative APS SPECTRA [facility] - 04/25/2021 Unless otherwise specified, test(s) performed at: [facility], [address] [place] [address] SOLDERER TORCH: Yoseph Rose M.D. For any questions, please call customer service at FREQUENCY:MONTHLY Resulting Agency Comment Specimen source: Plasma López Mariano MD LAB BLOOD ORDERABLES Performing Organization Address City/[facility]/ZIP Code Phon e Number APS SPECTRA [facility] (ABNORMAL) Spectrae Chemistry (04/23/2021) [facility] Time Signature BUN 32 (H) 6 - 19 APS SPECTRA mg/dL [facility] Creatinine 7.59 (H) 0.60 - APS SPECTRA 1.30 mg/dL [facility] BUN/Creatinine 4.2 (L) 10.0 - APS SPECTRA Ratio 20.0 [facility] Sodium 137 136 - 145 APS SPECTRA mEq/L [facility] Potassium 4.6 3.5 - 5.1 APS SPECTRA mEq/L [facility] Chloride 99 96 - 108 APS SPECTRA mEq/L [facility] Bicarbonate 27 22 - 29 APS SPECTRA (CO2) mEq/L [facility] Calcium 9.7 8.4 - 10.2 APS SPECTRA mg/dL [facility] Corrected 9.4 8.4 - 10.2 APS SPECTRA Calcium mg/dL [facility] Comment: Corrected Calcium is not equivalent to m easured Ionized Calcium. Phosphorus 3.7 2.6 - 4.5 mg/dL APS SPECTRA [facility] Calcium Phosphorus Product 36 0 - 54 APS SPECTRA [facility] Calcium Phosporus Product, Cor 35 0 - 54 APS SPECTRA [facility] Alkaline Phosphatase 72 35 - 104 U/L APS SP ECTRA [facility] Total Protein 7.7 6.0 - 8.5 g/dL APS SPECTRA [facility] Albumin 4.4 3.5 - 5.2 g/dL [facility]PS SPECTRA [facility] Globulin, Total 3.3 2.0 - 4.0 g/dL APS SPECT RA [facility] A/G Ratio 1.3 1.0 - 2.0 APS SPECTRA [facility] Magnesium 2.2 1.6 - 2.6 mg/dL APS SPECTRA [facility] Iron 40 30 - 160 mcg/dL [facility] UIBC 247 155 - 355 mcg/dL APS SPECTRA [facility] TIBC 287 185 - 515 mcg/dL APS SPECTRA [facility] Iron Saturation (TSat) 14 (L) 20 - 55 % APS SPE CTRA [facility] Ferritin 868 (H) 10 - 291 ng/mL [facility]PS SPECTRA [facility] Specimen (Source) Anatomical Collection Method Collection Time Re ceived Time Location / / Volume Laterality 04/23/2021 04/25/2021 1:51 PM SUGARCANE RESEARCH TECHNICIAN Narrative APS SPECTRA [facility] - 04/27/2021 Unless otherwise specified, test(s) performed at: [facility], [address] [place] [address] SOLDERER TORCH: Yoseph Rose M.D. For any questions, please call customer service at FREQUENCY:MONTHLY Resulting Agency Comment Specimen source: Serum López Mariano MD LAB BLOOD ORDERABLES Performing Organization Address City/State/ZIP Code Phon e Number APS SPECTRA [facility] (ABNORMAL) Spectrae Chemistry (04/23/2021) P athologist Signature PTH 283 (H) 16 - 80 APS SPECTRA pg/mL [facility] Specimen (Source) Anatomical Collection Method Collection Time Re ceived Time Location / / Volume Laterality 04/23/2021 04/25/2021 11:4 8 AM SUGARCANE RESEARCH TECHNICIAN Narrative APS SPECTRA [facility] - 04/25/2021 Unless otherwise specified, test(s) performed at: [facility], [address] [place] [address] SOLDERER TORCH: Yoseph Rose M.D. For any questions, please call customer service at FREQUENCY:MONTHLY Resulting Agency Comment Specimen source: Plasma López Mariano MD LAB BLOOD ORDERABLES Performing Organization Address City/State/ZIP Code Phon e Number APS SPECTRA [facility] (ABNORMAL) HEMATOLOGY (04/23/2021) [facility] gist Method Time Signature WBC 7.03 4.80 - APS SPECTRA 10.80 [facility] 1000/mcL RBC 3.54 (L) 4.20 - APS SPECTRA 5.40 [facility] mill/mcL Hemoglobin 11.6 (L) 12.0 - APS SPECTRA 16.0 g/dL [facility] Hemoglobin x 3 34.8 (L) 36.0 - APS SPECTRA 48.0 % [facility] Hematocrit 35.8 (L) 37.0 - APS SPECTRA 47.0 % [facility] MCV 101 (H) 80 - 100 APS SPECTRA fl [facility] MCH 32.9 (H) 27.0 - APS SPECTRA 31.0 pg [facility] MCHC 32.6 30.0 - APS SPECTRA 36.0 g/dL [facility] RDW 12.9 11.5 - APS SPECTRA 14.5 % [facility] Neutrophils 79.6 (H) 40.0 - APS SPECTRA 75.0 % [facility] Lymphocytes 11.6 (L) 19.0 - APS SPECTRA Relative 48.0 % [facility] Monocytes 4.8 3.0 - 10.0 APS SPECTRA % [facility] Eosinophils 2.1 0.0 - 7.0 APS SPECTRA Relative % [facility] Basophils 0.5 0.0 - 1.5 APS SPECTRA Relative % [facility] JESSICA 1.4 0.0 - 4.0 APS SPECTRA % [facility] Platelets 234 130 - 400 APS SPECTRA 1000/mcL [facility] Specimen (Source) Anatomical Collection Method Collection Time Re ceived Time Location / / Volume Laterality 04/23/2021 04/25/2021 11:3 8 AM SUGARCANE RESEARCH TECHNICIAN Narrative APS SPECTRA [facility] - 04/25/2021 Unless otherwise specified, test(s) performed at: [facility], [address] [place] [address] SOLDERER TORCH: Yoseph Rose M.D. For any questions, please call customer service at FREQUENCY:MONTHLY Resulting Agency Comment Specimen source: Blood López Mariano MD LAB BLOOD ORDERABLES Performing Organization Address City/State/ZIP Code Phon e Number APS SPECTRA [facility] documented in this encounter Visit Diagnoses Not on filedocumented in this encounter
--- OUTSIDE RECORDS SUMMARY | 2021-12-28 14:07 | XMS_ITS | Encounter Summary ---
:1965 Author Organization [facility] Address [address] [place] [address] Care Team Providers Name Role Phone Unavailable Primary Care Provider Unavailable Encounter Details Date Type Department Care Team Description 06/04/2021 Orders Only [facility] O f López Awad MD [phone] [place] [address] [place], [place] [phone] (Wo rk) Social History Tobacco Use Types Packs/Day Years Used Date Smoking Tobacco: Never Assessed Sex Assigned at Date Recorded Not on file documented as of this encounter Plan of Treatment Not on filedocumented as of this encounter Procedures Procedure Name Priority Date/Time Associated Diagnosis Comme nts HEMATOLOGY Routine 06/04/2021 Results for thi s procedure are in the resu lts section. documented in this encounter Results (ABNORMAL) HEMATOLOGY (06/04/2021) Analysis Performed At Patho logist Time Signature Hemoglobin 10.5 (L) 12.0 - APS SPECTRA 16.0 g/dL [facility] Hemoglobin x 3 31.5 (L) 36.0 - APS SPECTRA 48.0 % [facility] Specimen (Source) Anatomical Collection Method Collection Time Re ceived Time Location / / Volume Laterality 06/04/2021 06/05/2021 5:31 PM SALES PROMOTION COORDINATOR Narrative APS SPECTRA [facility] - 06/05/2021 Unless otherwise specified, test(s) performed at: [facility], [address] [place] [id number] MEAT COUNTER WORKER: Yoseph Rose M.D. For any questions, please call customer service at FREQUENCY:OTHER Resulting Agency Comment Specimen source: Blood López Mariano MD LAB BLOOD ORDERABLES Performing Organization Address City/State/ZIP Code Phon e Number APS SPECTRA [facility] documented in this encounter Visit Diagnoses Not on filedocumented in this encounter
--- OUTSIDE RECORDS SUMMARY | 2021-12-28 14:07 | XMS_ITS | Encounter Summary ---
:1965 Author Organization [facility] Address [address] [place] [address] Care Team Providers Name Role Phone Unavailable Primary Care Provider Unavailable Encounter Details Date Type Department Care Team Description 04/09/2021 Treatment [facility] O f López Awad MD [address] [place], [place] [phone] (Wo rk) Social History Tobacco Use Types Packs/Day Years Used Date Smoking Tobacco: Never Assessed Sex Assigned at Date Recorded Not on file documented as of this encounter Miscellaneous Notes Dialysis Note - López Mariano MD - 04/09/2021 12:07 PM CST Date: Apr 09, 2021 Patient Name: Stephanie Norman : 1965 Chart #: [id number] Sex: F This patient was personally seen for a basic visit as part of routine weekly dialysis care. A reviewof the dialysis treatment, blood pressure, estimated dry weight and recent lab values was made. These were discussed with the patient and staff as necessary. Treatment Data for 04/09/2021 started at:11:32 AM Dialyzer: 180NRe Optiflux Na: 137 mEq/L Bicarb: 33 mEq/L Dialysate: 3.0 K, 2.25 Ca, 1.0 Mg, 100 Dextrose (G3231) Dialysate/Machine Temp (prescribed): 37 C Dialysate/Machine Temp (actual): 37 C BFR (prescribed): 400 BFR (actual): 400 Prescribed time: 03:30 EDW: 90.5 kg Access Type: Active (In Use):AVFistula-Standard/Left Upper Arm Pre Dialysis Vitals (for 04/09/2021 11:18 AM ) Pre BP (sit): 162/78 Pre Wt: 91.4 kg Temp: 94.7 F Post Dialysis Vitals (for 04/07/2021 3:06 PM ) Post BP (sit): 144/72 Post Wt: 90.4 kg Current Dialysis Vitals (for 04/09/2021 12:01 PM ) BP (sit): 157/80 AP(-) / SR. UNIX SYSTEM ADMINISTRATOR: 216/226 Pulse: 74 Chairside data as of 04/09/2021 12:01 PM Last 3 Treatments 04/07/2021 04/04/2021 04/02/2021 EDW (kg) 90.5 91.5 91.5 Weight Pre (kg) 92.5 91.7 91.5 Weight Post (kg) 90.4 90.2 90.7 Dialytic Weight Loss (kg) -2.1 -1.5 -0.8 EDW Deviation (kg) -0.1 -1.3 -0.8 BP Sit Pre 171/84 173/87 175/82 BP Sit Post 144/72 139/70 147/70 UF Rate (mL/kg/hr) 7 5 2 Prescribed BFR 400 400 400 Average Delivered BFR 400 400 400 Prescribed Treatment Time 03:30 03:30 03:30 Actual Treatment Time 03:32 03:29 03:30 Treatment Medication Orders Medication Sig Start Date End Date Heparin Sodium (Porcine) 1,000 Units/mL Systemic 4000 units IVP Every Treatment 02/26/2021 02/25/2022 Heparin Sodium (Porcine) 1,000 Units/mL Systemic 2000 units IVP Every Treatment 02/26/2021 02/25/2022 Iron Sucrose (Venofer) 50 mg IVP 1X Week 03/31/2021 03/30/2022 Vitamin D (Calcitriol) Oral 0.25 mcg ORAL Every Treatment 2021 03/09/2022 HYDRAULIC LIFT OPERATOR: López Mariano MD LOCATION: [facility] [phone] SCHEDULE: M-W-F 2nd Shift ACCESS: EDW: kg. DIALYZER: HD DURATION: NEEDLE SIZE: ANTICOAG: BATH: QB: ml/min QD: ml/min Subjective 04/09/21: Stephanie feels excellent. She has no [...] [facility], sending her up to [facility] to see Dr. Hudson given PKD and future tx and [place] nephrectomies possible. She is liking HD, thinks [...] get to run. PCAD placed yesterday at [facility], fistulagram now with open access. This is [...] AVF in LUE upper arm good t/b PCAD c/d/i Medication List Medication Sig Start Date aspirin [...] List Allergen Reaction Reaction Severity Onset Date neomycin Skin rash PENICILLINS Skin rash Medications reviewed and no changes were made. BUN mg/dL 28 (03/19/21) 35 (02/26/21) 34 (02/19/21) 48 (01/31/21) 70 (01/24/21) UREA NITROGEN (MG/DL) IN SER/PLAS - POST DIALYSIS mg/dL 7 (03/19/21) 12 (02/26/21) 14 (02/19/21) 18 (01/31/21) 30 (01/24/21) URR % 75 (03/19/21) 66 (02/26/21) 59 (02/19/21) 63 (01/31/21) 57 (01/24/21) spKt/V Gotch 1.51 (03/19/21) 1.19 (02/26/21) 1 (02/19/21) 1.25 (01/31/21) eKdrt/V 1.46 (03/19/21) 1.13 (02/26/21) .98 (02/19/21) 1.23 (01/31/21) spKt/V ([place]irdas II) 1.5100 (03/19/21) 1.1700 (02/26/21) 0.9800 (02/19/21) 1.1500 (01/31/21) 0.9700 (01/24/21) HEMOGLOBIN (G/DL) IN BLOOD g/dL 10.7 (04/02/21) 10.8 (03/26/21) 10.4 (03/19/21) 9.8 (03/12/21) 10.1 (03/05/21) PLATELETS 1000/mcL 242 (03/19/21) 261 (02/19/21) 217 (01/24/21) 255 (02/21/20) IRON SATURATION % 26 (03/19/21) 19 (02/19/21) 23 (01/24/21) 25 (12/18/20) 32 (11/20/20) FERRITIN ng/mL 744 (03/26/21) 479 (02/26/21) 486 (01/24/21) 592 (10/23/20) 228 (07/31/20) ALBUMIN (G/DL) g/dL 4.1 (03/19/21) 4.2 (02/19/21) 3.6 (01/24/21) Sodium mEq/L 136 (03/19/21) 137 (02/19/21) 127 (01/24/21) POTASSIUM (MMOL/L) IN SER/PLAS mEq/L 4.3 (03/19/21) 4.2 (02/19/21) 4.3 (01/24/21) BICARBONATE (CO2) mEq/L 26 (03/19/21) 27 (02/19/21) 20 (01/24/21) 25 OH VITAMIN D ng/mL 11.6 (04/24/20) 19.9 (04/21/19) 25.6 (02/20/19) BUN/CREATININE (MASS RATIO) IN SER/PLAS 3.7 (03/19/21) 4.1 (02/19/21) 5.0 (01/24/21) GLUCOSE (MG/DL) IN SER/PLAS mg/dL 82 (05/08/19) VOLUME OF URINE mL 300 (12/18/20) 300 (10/23/20) 300 (10/09/20) Calcium mg/dL 9.2 (03/19/21) 9.4 (02/19/21) 8.6 (01/24/21) Calcium Phos Product 35 (03/19/21) 35 (02/19/21) 55 (01/24/21) CALCIUM (MG/DL) CORRECTED FOR ALBUMIN IN SER/PLAS mg/dL 9.1 (03/19/21) 9.2 (02/19/21) 8.9 (01/24/21) PHOSPHATE (MG/DL) IN SER/PLAS mg/dL 3.8 (03/19/21) 3.7 (02/19/21) 6.4 (01/24/21) IPTH pg/mL 342 (03/19/21) 398 (03/03/21) 778 (01/29/21) Vascular Access Assessment: Type of access: Fistula Fistulagram 12/2020 patent and no stenosis. Working well now was of 02/2021 Impression and Plan No change to dialysis prescription today, stable dialysis She will get dental clearance and give to tn center, then should be made active! López Mariano MD [ Signed And locked electronically On 04/09/2021 at 12:08:32 PM ] Transcribed: López Mariano ( 04/09/2021 ) documented in this encounter Plan of Treatment Not on filedocumented as of this encounter Visit Diagnoses Not on filedocumented in this encounter
--- OUTSIDE RECORDS SUMMARY | 2021-12-28 14:07 | XMS_ITS | Encounter Summary ---
:1965 Author Organization [facility] Address [address] [place] [address] Care Team Providers Name Role Phone Unavailable Primary Care Provider Unavailable Encounter Details Date Type Department Care Team Description 06/18/2021 [facility] Only [facility] O f López Awad MD [address] [place] [address] [place], [place] [phone] (Wo rk) Social History Tobacco Use Types Packs/Day Years Used Date Smoking Tobacco: Never Assessed Sex Assigned at Date Recorded Not on file documented as of this encounter Plan of Treatment Not on filedocumented as of this encounter Procedures Procedure Name Priority Date/Time Associated Diagnosis Comme nts HD KINETICS Routine 06/18/2021 Results for thi s procedure are i n the results section . POST CHEMISTRY Routine 06/18/2021 Results for t his procedure are i n the results section . HEMATOLOGY Routine 06/18/2021 Results for thi s procedure are i n the results section . CHEMISTRY Routine 06/18/2021 Results for thi s procedure are i n the results section . SPECTRA [place] LAB RESULTS Routine 06/18/2021 Resul ts for this procedure are i n the results section . documented in this encounter Results Spectra [place] Lab Results (06/18/2021) P athologist Signature spKt/V Gotch 1.35 [place] eKdrt/V 1.15 [place] nPCR_HD 0.76 [place] spKt/V 1.31 [place] ([place]) eKt/V 1.12 [place] ([place]) eKt/V Gotch 1.15 [place] eNPCR 0.70 [place] PCR 46.60 [place] Specimen (Source) Anatomical Location Collection Method / Collectio n Time Received Time / Laterality Volume 06/18/2021 06/18/2021 [place] Ordering Provider LAB BLOOD ORDERABLES Performing Organization Address City/State/ZIP Code Phon e Number [place] HD KINETICS (06/18/2021) P athologist Signature % Urea 67 65 - 80 % [facility] Reduction [facility] Specimen (Source) Anatomical Collection Method Collection Time Re ceived Time Location / / Volume Laterality 06/18/2021 06/19/2021 10:5 6 PM SENIOR CONTRACTS MANAGER Resulting Agency Comment Specimen source: Plasma López Mariano MD LAB BLOOD ORDERABLES Performing Organization Address City/State/ZIP Code Phon e Number [facility] POST CHEMISTRY (06/18/2021) athologist Signature BUN Post 14 6 - 19 [facility] Dialysis mg/dL [facility] Specimen (Source) Anatomical Collection Method Collection Time Re ceived Time Location / / Volume Laterality 06/18/2021 06/19/2021 10:5 6 PM SENIOR CONTRACTS MANAGER Narrative [facility] - 06/20/2021 Unless otherwise specified, test(s) performed at: [facility], [address] [place] [address] PROJECT LANDSCAPE ARCHITECT: Yoseph Rose M.D. For any questions, please call customer service at FREQUENCY:MONTHLY Resulting Agency Comment Specimen source: Plasma López Mariano MD LAB BLOOD ORDERABLES Performing Organization Address City/[facility]/ZIP Code Phon e Number [facility]RA [facility] (ABNORMAL) Spectrae Chemistry (06/18/2021) [facility] gist Method Time Signature BUN 43 (H) 6 - 19 [facility] mg/dL [facility] Creatinine 7.39 (H) 0.60 - [facility] 1.30 mg/dL [facility] BUN/Creatinine 5.8 (L) 10.0 - [facility] Ratio 20.0 [facility] Sodium 138 136 - 145 [facility] mEq/L [facility] Potassium 5.0 3.5 - 5.1 [facility] mEq/L [facility] Chloride 101 96 - 108 [facility] mEq/L [facility] Bicarbonate 25 22 - 29 [facility] (CO2) mEq/L [facility] Calcium 9.2 8.4 - 10.2 [facility] mg/dL [facility] Corrected 9.1 8.4 - 10.2 [facility] Calcium mg/dL [facility] Comment: Corrected Calcium is not equivalent to m easured Ionized Calcium. Phosphorus 3.9 2.6 - 4.5 mg/dL APS SPECTRA [facility] Calcium Phosphorus Product 36 0 - 54 [facility] Calcium Phosporus Product, Cor 35 0 - 54 [facility] Total Protein 6.8 6.0 - 8.5 g/dL [facility] Albumin 4.1 3.5 - 5.2 g/dL [facility] [place] Globulin, Total 2.7 2.0 - 4.0 g/dL APS SPECT RA [facility] A/G Ratio 1.5 1.0 - 2.0 [facility] Iron 64 30 - 160 mcg/dL APS SPECT[facility] [place] [facility] UIBC 212 155 - 355 mcg/dL [facility]PS SPECTRA [facility] TIBC 276 185 - 515 mcg/dL APS SPECTRA [facility] Iron Saturation (TSat) 23 20 - 55 % APS SPE CTRA [facility] Specimen (Source) Anatomical Collection Method Collection Time Re ceived Time Location / / Volume Laterality 06/18/2021 06/19/2021 3:07 PM SENIOR CONTRACTS MANAGER Narrative [facility]PS [facility]RA [facility] - 06/19/2021 Unless otherwise specified, test(s) performed at: [facility], [address] [place], [place] [id number] PROJECT LANDSCAPE ARCHITECT: Yoseph Rose M.D. For any questions, please call customer service at FREQUENCY:MONTHLY Resulting Agency Comment Specimen source: Serum López Mariano MD LAB BLOOD ORDERABLES Performing Organization Address City/State/ZIP Code Phon e Number [facility]RA [facility] (ABNORMAL) HEMATOLOGY (06/18/2021) [facility] gist Method Time Signature WBC 6.51 4.80 - [facility] 10.80 [facility] 1000/mcL RBC 3.21 (L) 4.20 - [facility]RA 5.40 [facility] mill/mcL Hemoglobin 10.8 (L) 12.0 - [facility]RA 16.0 g/dL [facility] Hemoglobin x 3 32.4 (L) 36.0 - [facility] 48.0 % [facility] Hematocrit 32.6 (L) 37.0 - [facility]RA 47.0 % [facility] MCV 101 (H) 80 - 100 [facility] fl [facility] MCH 33.7 (H) 27.0 - [facility] 31.0 pg [facility] MCHC 33.2 30.0 - [facility]RA 36.0 g/dL [facility] RDW 12.5 11.5 - [facility] 14.5 % [facility] Neutrophils 78.4 (H) 40.0 - [facility]RA 75.0 % [facility] Lymphocytes 14.5 (L) 19.0 - [facility] Relative 48.0 % [facility] Monocytes 3.8 3.0 - 10.0 [facility] % [facility] Eosinophils 1.9 0.0 - 7.0 [facility] Relative % [facility] Basophils 3.0 (H) 0.0 - 1.5 [facility] Relative % [facility] JESSICA 1.3 0.0 - 4.0 [facility]PECT[facility] % [facility] Platelets 228 130 - 400 [facility]RA 1000/mcL [facility] Specimen (Source) Anatomical Collection Method Collection Time Re ceived Time Location / / Volume Laterality 06/18/2021 06/19/2021 1:03 PM SENIOR CONTRACTS MANAGER Narrative [facility]PS S[facility]RA [facility] - 06/19/2021 Unless otherwise specified, test(s) performed at: [facility], [address] [place] [address] PROJECT LANDSCAPE ARCHITECT: Yoseph Rose M.D. For any questions, please call customer service at FREQUENCY:MONTHLY Resulting Agency Comment Specimen source: Blood López Mariano MD LAB BLOOD ORDERABLES Performing Organization Address City/State/ZIP Code Phon e Number [facility]RA [facility] documented in this encounter Visit Diagnoses Not on filedocumented in this encounter
--- OUTSIDE RECORDS SUMMARY | 2021-12-28 14:07 | XMS_ITS | Encounter Summary ---
:1965 Author Organization [facility] Address [address] [place] [address] Care Team Providers Name Role Phone Unavailable Primary Care Provider Unavailable Encounter Details Date Type Department Care Team Description 03/19/2021 Orders Only [facility] O f López Awad MD [phone] [place] [address] [place], [place] [phone] (Wo rk) Social History Tobacco Use Types Packs/Day Years Used Date Smoking Tobacco: Never Assessed Sex Assigned at Date Recorded Not on file documented as of this encounter Plan of Treatment Not on filedocumented as of this encounter Procedures Procedure Name Priority Date/Time Associated Diagnosis Comme nts HD KINETICS Routine 03/19/2021 Results for thi s procedure are i n the results section . POST CHEMISTRY Routine 03/19/2021 Results for t his procedure are i n the results section . HEMATOLOGY Routine 03/19/2021 Results for thi s procedure are i n the results section . CHEMISTRY Routine 03/19/2021 Results for thi s procedure are i n the results section . CHEMISTRY Routine 03/19/2021 Results for thi s procedure are i n the results section . SPECTRA [facility] LAB RESULTS Routine 03/19/2021 Resul ts for this procedure are i n the results section . documented in this encounter Results Spectra [facility] Lab Results (03/19/2021) P athologist Signature spKt/V 1.51 [facility] ([place] II) eKdrt/V 1.46 [place] spKt/V Gotch 1.51 [facility] eNPCR 0.57 [place] eKt/V Gotch 1.29 [place] eKt/V 1.29 [place] ([place]) PCR 36.83 [place] nPCR_HD 0.60 [facility] Specimen (Source) Anatomical Location Collection Method / Collectio n Time Received Time / Laterality Volume 03/19/2021 03/19/2021 [place] Ordering Provider LAB BLOOD ORDERABLES Performing Organization Address City/State/ZIP Code Phon e Number [facility] HD KINETICS (03/19/2021) P athologist Signature % Urea 75 65 - 80 % [facility]PECTRA Reduction [facility] Specimen (Source) Anatomical Collection Method Collection Time Re ceived Time Location / / Volume Laterality 03/19/2021 03/20/2021 4:57 PM COUNTERSINKER BALANCE SCREW HOLE Narrative APS SPECTRA [facility] - 03/21/2021 Unless otherwise specified, test(s) performed at: [facility], [address] [place] [address] ADJUSTER AND INSPECTOR: Yoseph Rose M.D. For any questions, please call customer service at FREQUENCY:MONTHLY Resulting Agency Comment Specimen source: Serum López Mariano MD LAB BLOOD ORDERABLES Performing Organization Address City/State/ZIP Code Phon e Number [facility]PS S[facility]RA [facility] (ABNORMAL) Spectrae Chemistry (03/19/2021) Patholo gist Method Time Signature BUN 28 (H) 6 - 19 [facility] mg/dL [facility] Creatinine 7.49 (H) 0.60 - [facility] 1.30 mg/dL [facility] BUN/Creatinine 3.7 (L) 10.0 - [facility] Ratio 20.0 [facility] Sodium 136 136 - 145 [facility] mEq/L [facility] Potassium 4.3 3.5 - 5.1 [facility] mEq/L [facility] Chloride 98 96 - 108 [facility] mEq/L [facility] Bicarbonate 26 22 - 29 [facility] (CO2) mEq/L [facility] Calcium 9.2 8.4 - 10.2 [facility] mg/dL [facility] Corrected 9.1 8.4 - 10.2 [facility] Calcium mg/dL [facility] Comment: Corrected Calcium is not equivalent to m easured Ionized Calcium. Phosphorus 3.8 2.6 - 4.5 mg/dL [facility]PS SPECTRA [facility] Calcium Phosphorus Product 35 0 - 54 [facility]RA [facility] Calcium Phosporus Product, Cor 35 0 - 54 [facility]RA [facility] Total Protein 6.7 6.0 - 8.5 g/dL [facility]PS S[facility]RA [facility] Albumin 4.1 3.5 - 5.2 g/dL [facility] S[facility] [place] Globulin, Total 2.6 2.0 - 4.0 g/dL APS SPECT RA [facility] A/G Ratio 1.6 1.0 - 2.0 [facility] S[facility]RA [facility] Iron 67 30 - 160 mcg/dL APS SPECTRA [place] [facility] UIBC 191 155 - 355 mcg/dL [facility]PS SPECTRA [facility] TIBC 258 185 - 515 mcg/dL APS S[facility]RA [facility] Iron Saturation (TSat) 26 20 - 55 % APS SPE CTRA [facility] Specimen (Source) Anatomical Collection Method Collection Time Re ceived Time Location / / Volume Laterality 03/19/2021 03/20/2021 4:57 PM COUNTERSINKER BALANCE SCREW HOLE Narrative APS SPECTRA [facility] - 03/21/2021 Unless otherwise specified, test(s) performed at: [facility], [address] [place] [address] ADJUSTER AND INSPECTOR: Yoseph Rose M.D. For any questions, please call customer service at FREQUENCY:MONTHLY Resulting Agency Comment Specimen source: Serum López Mariano MD LAB BLOOD ORDERABLES Performing Organization Address City/[facility] Phon e Number APS SPECTRA [facility] POST CHEMISTRY (03/19/2021) athologist Signature BUN Post 7 6 - 19 APS SPECTRA Dialysis mg/dL [facility] Specimen (Source) Anatomical Collection Method Collection Time Re ceived Time Location / / Volume Laterality 03/19/2021 03/20/2021 4:01 PM COUNTERSINKER BALANCE SCREW HOLE Narrative APS SPECTRA [facility] - 03/21/2021 Unless otherwise specified, test(s) performed at: [facility], [address] [place] [id number] ADJUSTER AND INSPECTOR: Yoseph Rose M.D. For any questions, please call customer service at FREQUENCY:MONTHLY Resulting Agency Comment Specimen source: Plasma López Mariano MD LAB BLOOD ORDERABLES Performing Organization Address City/[facility] Phon e Number APS SPECTRA [facility] (ABNORMAL) Spectrae Chemistry (03/19/2021) P athologist Signature PTH 342 (H) 16 - 80 APS SPECTRA pg/mL [facility] Specimen (Source) Anatomical Collection Method Collection Time Re ceived Time Location / / Volume Laterality 03/19/2021 03/20/2021 10:1 3 AM COUNTERSINKER BALANCE SCREW HOLE Narrative APS SPECTRA [facility] - 03/20/2021 Unless otherwise specified, test(s) performed at: [facility], [address] [place] [address] ADJUSTER AND INSPECTOR: Yoseph Rose M.D. For any questions, please call customer service at FREQUENCY:MONTHLY Resulting Agency Comment Specimen source: Plasma López Mariano MD LAB BLOOD ORDERABLES Performing Organization Address City/State/ZIP Code Phon e Number [facility]PS SPECTRA [facility] (ABNORMAL) HEMATOLOGY (03/19/2021) Patholo gist Method Time Signature WBC 6.69 4.80 - [facility]PS SPECTRA 10.80 [facility] 1000/mcL RBC 3.04 (L) 4.20 - APS SPECTRA 5.40 [facility] mill/mcL Hemoglobin 10.4 (L) 12.0 - APS SPECTRA 16.0 g/dL [facility] Hemoglobin x 3 31.2 (L) 36.0 - APS SPECTRA 48.0 % [facility] Hematocrit 30.4 (L) 37.0 - APS SPECTRA 47.0 % [facility] MCV 100 80 - 100 APS SPECTRA fl [facility] MCH 34.1 (H) 27.0 - APS SPECTRA 31.0 pg [facility] MCHC 34.1 30.0 - APS SPECTRA 36.0 g/dL [facility] RDW 13.1 11.5 - APS S[facility]RA 14.5 % [facility] Neutrophils 74.6 40.0 - APS SPECTRA 75.0 % [facility] Lymphocytes 15.7 (L) 19.0 - APS SPECTRA Relative 48.0 % [facility] Monocytes 4.1 3.0 - 10.0 APS SPECTRA % [facility] Eosinophils 3.7 0.0 - 7.0 [facility]RA Relative % [facility] Basophils 0.8 0.0 - 1.5 [facility] Relative % [facility] JESSICA 1.2 0.0 - 4.0 APS SPECTRA % [facility] Platelets 242 130 - 400 APS SPECTRA 1000/mcL [facility] Specimen (Source) Anatomical Collection Method Collection Time Re ceived Time Location / / Volume Laterality 03/19/2021 03/20/2021 9:49 AM COUNTERSINKER BALANCE SCREW HOLE Narrative APS SPECTRA [facility] - 03/20/2021 Unless otherwise specified, test(s) performed at: [facility], [address] [place] [address] ADJUSTER AND INSPECTOR: Yoseph Rose M.D. For any questions, please call customer service at FREQUENCY:MONTHLY Resulting Agency Comment Specimen source: Blood López Mariano MD LAB BLOOD ORDERABLES Performing Organization Address City/State/ZIP Code Phon e Number [facility]PS SPECTRA [facility] documented in this encounter Visit Diagnoses Not on filedocumented in this encounter
--- OUTSIDE RECORDS SUMMARY | 2021-12-28 14:07 | XMS_ITS | Encounter Summary ---
:1965 Author Organization [facility] Address [address] [place] [address] Care Team Providers Name Role Phone Unavailable Primary Care Provider Unavailable Encounter Details Date Type Department Care Team Description 04/30/2021 Orders Only [facility] O f López Awad MD [address] [place] [address] [place], [place] [phone] (Wo rk) Social History Tobacco Use Types Packs/Day Years Used Date Smoking Tobacco: Never Assessed Sex Assigned at Date Recorded Not on file documented as of this encounter Plan of Treatment Not on filedocumented as of this encounter Procedures Procedure Name Priority Date/Time Associated Diagnosis Comme nts HEMATOLOGY Routine 04/30/2021 Results for thi s procedure are in the resu lts section. documented in this encounter Results (ABNORMAL) HEMATOLOGY (04/30/2021) Analysis Performed At Patho logist Time Signature Hemoglobin 11.0 (L) 12.0 - APS S[facility]RA 16.0 g/dL [facility] Hemoglobin x 3 33.0 (L) 36.0 - APS [facility]RA 48.0 % [facility] Specimen (Source) Anatomical Collection Method Collection Time Re ceived Time Location / / Volume Laterality 04/30/2021 05/01/2021 8:15 PM EMBEDDED DEVELOPER Narrative [facility]PS SPECTRA [facility] - 05/02/2021 Unless otherwise specified, test(s) performed at: [facility], [address] [place] [id number]: Yoseph Rose M.D. For any questions, please call customer service at FREQUENCY:OTHER Resulting Agency Comment Specimen source: Blood López Mariano MD LAB BLOOD ORDERABLES Performing Organization Address City/State/ZIP Code Phon e Number [facility]PS SPECTRA [facility] documented in this encounter Visit Diagnoses Not on filedocumented in this encounter
--- OUTSIDE RECORDS SUMMARY | 2021-12-28 14:07 | XMS_ITS | Encounter Summary ---
:1965 Author Organization [facility] Address [address] [place] [address] Care Team Providers Name Role Phone Unavailable Primary Care Provider Unavailable Encounter Details Date Type Department Care Team Description 05/14/2021 Orders Only [facility] O f López Awad MD [address] [facility] [address] [place], [place] [phone] (Wo rk) Social History Tobacco Use Types Packs/Day Years Used Date Smoking Tobacco: Never Assessed Sex Assigned at Date Recorded Not on file documented as of this encounter Plan of Treatment Not on filedocumented as of this encounter Procedures Procedure Name Priority Date/Time Associated Diagnosis Comme nts HEMATOLOGY Routine 05/14/2021 Results for thi s procedure are in the resu lts section. documented in this encounter Results (ABNORMAL) HEMATOLOGY (05/14/2021) Analysis Performed At Patho logist Time Signature Hemoglobin 11.4 (L) 12.0 - APS SPECTRA 16.0 g/dL [facility] Hemoglobin x 3 34.2 (L) 36.0 - APS SPECTRA 48.0 % [facility] Specimen (Source) Anatomical Collection Method Collection Time Re ceived Time Location / / Volume Laterality 05/14/2021 05/15/2021 9:54 AM HEATER ENGINEER HELPER Narrative APS SPECTRA [facility] - 05/15/2021 Unless otherwise specified, test(s) performed at: [facility], [address] [place] [address] BOAT BUFFER PLASTIC: Yoseph Rose M.D. For any questions, please call customer service at FREQUENCY:OTHER Resulting Agency Comment Specimen source: Blood López Mariano MD LAB BLOOD ORDERABLES Performing Organization Address City/State/ZIP Code Phon e Number APS SPECTRA [facility] documented in this encounter Visit Diagnoses Not on filedocumented in this encounter
--- OUTSIDE RECORDS SUMMARY | 2021-12-28 14:07 | XMS_ITS | Encounter Summary ---
:1965 Author Organization [facility] Address [address] [place] [address] Care Team Providers Name Role Phone Unavailable Primary Care Provider Unavailable Encounter Details Date Type Department Care Team Description 03/05/2021 Orders Only [facility] O f López Awad MD [address] [place] [address] [place], [place] [phone] (Wo rk) Social History Tobacco Use Types Packs/Day Years Used Date Smoking Tobacco: Never Assessed Sex Assigned at Date Recorded Not on file documented as of this encounter Plan of Treatment Not on filedocumented as of this encounter Procedures Procedure Name Priority Date/Time Associated Diagnosis Comme nts HEMATOLOGY Routine 03/05/2021 Results for thi s procedure are in the resu lts section. documented in this encounter Results (ABNORMAL) HEMATOLOGY (03/05/2021) Analysis Performed At Patho logist Time Signature Hemoglobin 10.1 (L) 12.0 - APS SPECTRA 16.0 g/dL [facility] Hemoglobin x 3 30.3 (L) 36.0 - APS SPECTRA 48.0 % [facility] Specimen (Source) Anatomical Collection Method Collection Time Re ceived Time Location / / Volume Laterality 03/05/2021 03/06/2021 11:3 1 AM DIAGNOSTICS TECH Narrative APS SPECTRA [facility] - 03/06/2021 Unless otherwise specified, test(s) performed at: [facility], [address] [place] [address] FITTING ROOM OPERATOR: Yoseph Rose M.D. For any questions, please call customer service at FREQUENCY:OTHER Resulting Agency Comment Specimen source: Blood López Mariano MD LAB BLOOD ORDERABLES Performing Organization Address City/State/ZIP Code Phon e Number APS SPECTRA [facility] documented in this encounter Visit Diagnoses Not on filedocumented in this encounter
--- OUTSIDE RECORDS SUMMARY | 2021-12-28 14:07 | XMS_ITS | Encounter Summary ---
:1965 Author Organization [facility] Address [address] [place] [address] Care Team Providers Name Role Phone Unavailable Primary Care Provider Unavailable Encounter Details Date Type Department Care Team Description 05/21/2021 Treatment [facility] López Awad MD [address] [place], [place] [phone] (Wo rk) Social History Tobacco Use Types Packs/Day Years Used Date Smoking Tobacco: Never Assessed Sex Assigned at Date Recorded Not on file documented as of this encounter Miscellaneous Notes Dialysis Note - López Mariano MD - 05/21/2021 12:16 PM CST Date: May 21, 2021 Patient Name: Stephanie Norman : 1965 Chart #: [id number] Sex: F This patient was personally seen for a complete visit as part of routine monthly dialysis care. A review of the dialysis treatment, blood pressure, estimated dry weight and recent lab values was made. These were discussed with the patient and staff as necessary. Treatment Data for 05/21/2021 started at:11:25 AM Dialyzer: 180NRe Optiflux Na: 137 mEq/L Bicarb: 31 mEq/L Dialysate: 2.0 K, 2.25 Ca, 1.0 Mg, 100 Dextrose (G2231) Dialysate/Machine Temp (prescribed): 37 C Dialysate/Machine Temp (actual): 36.9 C BFR (prescribed): 400 BFR (actual): 350 Prescribed time: 03:30 EDW: 89 kg Access Type: Active (In Use):AVFistula-Standard/Left Upper Arm Pre Dialysis Vitals (for 05/21/2021 11:24 AM ) Pre BP (sit): 148/76 Pre Wt: 90.4 kg Temp: 95.7 F Post Dialysis Vitals (for 05/19/2021 3:04 PM ) Post BP (sit): 110/60 Post Wt: 89.5 kg Current Dialysis Vitals (for 05/21/2021 12:04 PM ) BP (sit): 128/70 AP(-) / PRODUCTION OPERATOR: 252/186 Pulse: 63 Chairside data as of 05/21/2021 12:04 PM Last 3 Treatments 05/19/2021 05/16/2021 05/14/2021 EDW (kg) 89 89 90 Weight Pre (kg) 91.2 90.3 89.9 Weight Post (kg) 89.5 88.7 88.9 Dialytic Weight Loss (kg) -1.7 -1.6 -1 EDW Deviation (kg) 0.5 -0.3 -1.1 BP Sit Pre 177/80 153/77 155/83 BP Sit Post 110/60 133/73 124/63 UF Rate (mL/kg/hr) 5 5 3 Prescribed BFR 400 400 400 Average Delivered BFR 360 370 380 Prescribed Treatment Time 03:30 03:30 03:30 Actual Treatment Time 03:33 03:31 03:31 Treatment Medication Orders Medication Sig Start Date End Date Heparin Sodium (Porcine) 1,000 Units/mL Systemic 4000 units IVP Every Treatment 02/26/2021 02/25/2022 Heparin Sodium (Porcine) 1,000 Units/mL Systemic 2000 units IVP Every Treatment 02/26/2021 02/25/2022 Iron Sucrose (Venofer) 50 mg IVP 1X Week 05/12/2021 05/11/2022 Vitamin D (Calcitriol) Oral 0.25 mcg ORAL Every Treatment 2021 03/09/2022 NETWORKER: López Mariano MD LOCATION: [phone] SCHEDULE: M-W-F 2nd Shift EDW: kg. DIALYZER: HD DURATION: NEEDLE SIZE: ANTICOAG: BATH: QB: ml/min QD: ml/min Subjective No new complaints. 05/21/21: Stephanie is feeling well today. She feels hemo is going really well. 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 She denies CP, SOB, edema. 05/14/21: [...] Wednesday. 02/12/21: She saw gen surgery at [facility], sending her up to [facility] to see Dr. Hudson given PKD and future tx and [place] nephrectomies possible. She is liking HD, thinks [...] to run. PCAD placed yesterday at [facility], fistulagram now with [...] made. Treatment and Adequacy Assessment BUN mg/dL 32 (04/23/21) 28 (03/19/21) 35 (02/26/21) 34 (02/19/21) 48 (01/31/21) UREA NITROGEN (MG/DL) IN SER/PLAS - POST DIALYSIS mg/dL 9 (04/23/21) 7 (03/19/21) 12 (02/26/21) 14 (02/19/21) 18 (01/31/21) URR % 72 (04/23/21) 75 (03/19/21) 66 (02/26/21) 59 (02/19/21) 63 (01/31/21) spKt/V Gotch 1.45 (04/23/21) 1.51 (03/19/21) 1.19 (02/26/21) 1 (02/19/21) 1.25 (01/31/21) eKdrt/V 1.4 (04/23/21) 1.46 (03/19/21) 1.13 (02/26/21) .98 (02/19/21) 1.23 (01/31/21) spKt/V (Daugirdas II) 1.4300 (04/23/21) 1.5100 (03/19/21) 1.1700 (02/26/21) 0.9800 (02/19/21) 1.1500 (01/31/21) Dialysis is adequate. Achieves prescribed time - Yes Achieves prescribed frequency - Yes Continue current prescription. Vascular Access Assessment Type of access: Fistula Fistulagram 12/2020 patent and no stenosis. Working well now was of 02/2021 Anemia Assessment HEMOGLOBIN (G/DL) IN BLOOD g/dL 11.4 (05/14/21) 10.5 (05/07/21) 11.0 (04/30/21) 11.6 (04/23/21) 11.0 (04/16/21) PLATELETS 1000/mcL 234 (04/23/21) 242 (03/19/21) 261 (02/19/21) 217 (01/24/21) IRON SATURATION % 14 (04/23/21) 26 (03/19/21) 19 (02/19/21) 23 (01/24/21) 25 (12/18/20) FERRITIN ng/mL 868 (04/23/21) 744 (03/26/21) 479 (02/26/21) 486 (01/24/21) 592 (10/23/20) Hemoglobin is above goal. Iron Saturation is below goal. Ferritin is at goal. Will adjust FABIO and intravenous iron per protocol. Nutritional and Metabolic Assessment ALBUMIN (G/DL) g/dL 4.4 (04/23/21) 4.1 (03/19/21) 4.2 (02/19/21) 3.6 (01/24/21) 3.8 (12/18/20) Sodium mEq/L 137 (04/23/21) 136 (03/19/21) 137 (02/19/21) 127 (01/24/21) 137 (12/18/20) POTASSIUM (MMOL/L) IN SER/PLAS mEq/L 4.6 (04/23/21) 4.3 (03/19/21) 4.2 (02/19/21) 4.3 (01/24/21) 3.7 (12/18/20) BICARBONATE (CO2) mEq/L 27 (04/23/21) 26 (03/19/21) 27 (02/19/21) 20 (01/24/21) 24 (12/18/20) Albumin is at goal. Encourage high-biological value protein intake. Potassium is at goal. Bicarbonate is at goal. Continue same bicarbonate in dialysate. Bone and Mineral Metabolism Assessment Calcium mg/dL 9.7 (04/23/21) 9.2 (03/19/21) 9.4 (02/19/21) 8.6 (01/24/21) 9.3 (12/18/20) CALCIUM (MG/DL) CORRECTED FOR ALBUMIN IN SER/PLAS mg/dL 9.4 (04/23/21) 9.1 (03/19/21) 9.2 (02/19/21) 8.9 (01/24/21) 9.5 (12/18/20) PHOSPHATE (MG/DL) IN SER/PLAS mg/dL 3.7 (04/23/21) 3.8 (03/19/21) 3.7 (02/19/21) 6.4 (01/24/21) 5.3 (12/18/20) CALCIUM PHOSPHORUS PRODUCT, COR 35 (04/23/21) 35 (03/19/21) 34 (02/19/21) 57 (01/24/21) 50 (12/18/20) IPTH pg/mL 283 (04/23/21) 342 (03/19/21) 398 (03/03/21) 778 (01/29/21) 600 (01/24/21) Corrected Calcium is at goal. Phosphorous is at goal. Intact PTH is at goal. German Tutor will adjust binders and vitamin D per protocol and continue to provide dietary education. Cardiovascular Assessment Blood pressures reviewed and are acceptable. Intradialytic weight gains are appropriate. Estimated dry weight is appropriate. Transplant Status: Patient is on transplant list. [facility] as of Apr 2021! Resuscitation Status Stable dialysis, no change in prescription Listed for transplant! Monthly labs today López Mariano MD [ Signed And locked electronically On 05/21/2021 at 12:17:56 PM ] Transcribed: López Mariano ( 05/21/2021 ) documented in this encounter Plan of Treatment Not on filedocumented as of this encounter Visit Diagnoses Not on filedocumented in this encounter
--- OUTSIDE RECORDS SUMMARY | 2021-12-28 14:07 | XMS_ITS | Encounter Summary ---
:1965 Author Organization [facility] Address [address] [place] [address] Care Team Providers Name Role Phone Unavailable Primary Care Provider Unavailable Encounter Details Date Type Department Care Team Description 04/02/2021 Treatment [facility] López Awad MD [address] [place], [place] [phone] (Wo rk) Social History Tobacco Use Types Packs/Day Years Used Date Smoking Tobacco: Never Assessed Sex Assigned at Date Recorded Not on file documented as of this encounter Miscellaneous Notes Dialysis Note - López Mariano MD - 04/02/2021 12:47 PM CST Date: Apr 02, 2021 Patient Name: Stephanie Norman : 1965 Chart #: [id number] Sex: F This patient was personally seen for a complete visit as part of routine monthly dialysis care. A review of the dialysis treatment, blood pressure, estimated dry weight and recent lab values was made. These were discussed with the patient and staff as necessary. Treatment Data for 04/02/2021 started at:11:25 AM Dialyzer: 180NRe Optiflux Na: 137 mEq/L Bicarb: 33 mEq/L Dialysate: 3.0 K, 2.25 Ca, 1.0 Mg, 100 Dextrose (G3231) Dialysate/Machine Temp (prescribed): 37 C Dialysate/Machine Temp (actual): 37 C BFR (prescribed): 400 BFR (actual): 400 Prescribed time: 03:30 EDW: 91.5 kg Access Type: Pre Dialysis Vitals (for 04/02/2021 11:17 AM ) Pre BP (sit): 175/82 Pre Wt: 91.5 kg Temp: 93.6 F Post Dialysis Vitals (for 03/31/2021 3:03 PM ) Post BP (sit): 139/71 Post Wt: 91.1 kg Current Dialysis Vitals (for 04/02/2021 12:33 PM ) BP (sit): 152/76 AP(-) / CHIEF CRNA: 255/212 Pulse: 72 Chairside data as of 04/02/2021 12:33 PM Last 3 Treatments 03/31/2021 03/28/2021 03/26/2021 EDW (kg) 92.5 92.5 93 Weight Pre (kg) 92.2 93.2 93.5 Weight Post (kg) 91.1 92 92.5 Dialytic Weight Loss (kg) -1.1 -1.2 -1 EDW Deviation (kg) -1.4 -0.5 -0.5 BP Sit Pre 161/78 154/80 169/86 BP Sit Post 139/71 138/70 159/79 UF Rate (mL/kg/hr) 3 4 3 Prescribed BFR 400 400 400 Average Delivered BFR 400 400 400 Prescribed Treatment Time 03:30 03:30 03:30 Actual Treatment Time 03:31 03:31 03:31 Treatment Medication Orders Medication Sig Start Date End Date Heparin Sodium (Porcine) 1,000 Units/mL Systemic 4000 units IVP Every Treatment 02/26/2021 02/25/2022 Heparin Sodium (Porcine) 1,000 Units/mL Systemic 2000 units IVP Every Treatment 02/26/2021 02/25/2022 Iron Sucrose (Venofer) 50 mg IVP 1X Week 03/31/2021 03/30/2022 Vitamin D (Calcitriol) Oral 0.25 mcg ORAL Every Treatment 2021 03/09/2022 NATURAL RESOURCES PROFESSOR: López Mariano MD LOCATION: [phone] SCHEDULE: M-W- 2nd Shift EDW: kg. DIALYZER: HD DURATION: NEEDLE SIZE: ANTICOAG: BATH: QB: ml/min QD: ml/min Subjective 04/02/21: Stephanie is fully recovered from hernia [...] Wednesday. 02/12/21: She saw gen surgery at [facility], sending her up to [facility] to see Dr. Hudson given PKD and future tx and [place] nephrectomies possible. She is liking HD, thinks [...] get to run. PCAD placed yesterday at [facility], fistulagram now with [...] Regular rhythm. Edema - No leg edema. stable Access - AVF good t/b and working [...] made. Treatment and Adequacy Assessment BUN mg/dL 28 (03/19/21) 35 (02/26/21) 34 [...] (02/26/21) 0.9800 (02/19/21) 1.1500 (01/31/21) 0.9700 (01/24/21) Dialysis is adequate. Achieves prescribed time - Yes Achieves prescribed frequency - Yes Continue current prescription. Vascular Access Assessment Type of access: Fistula Fistulagram 12/2020 patent and no stenosis. Working well now was of 02/2021 Anemia Assessment HEMOGLOBIN (G/DL) IN BLOOD g/dL 10.8 (03/26/21) 10.4 (03/19/21) 9.8 (03/12/21) 10.1 (03/05/21) 10.1 (02/26/21) PLATELETS 1000/mcL 242 (03/19/21) 261 (02/19/21) 217 (01/24/21) IRON SATURATION % 26 (03/19/21) 19 (02/19/21) 23 (01/24/21) 25 (12/18/20) 32 (11/20/20) FERRITIN ng/mL 744 (03/26/21) 479 (02/26/21) 486 (01/24/21) 592 (10/23/20) 228 (07/31/20) Hemoglobin is at goal. Iron Saturation is at goal. Ferritin is at goal. Will adjust FABIO and intravenous iron per protocol. Nutritional and Metabolic Assessment ALBUMIN (G/DL) g/dL 4.1 (03/19/21) 4.2 (02/19/21) 3.6 (01/24/21) 3.8 (12/18/20) 4.0 (11/20/20) Sodium mEq/L 136 (03/19/21) 137 (02/19/21) 127 (01/24/21) 137 (12/18/20) 137 (11/20/20) POTASSIUM (MMOL/L) IN SER/PLAS mEq/L 4.3 (03/19/21) 4.2 (02/19/21) 4.3 (01/24/21) 3.7 (12/18/20) 3.5 (11/20/20) BICARBONATE (CO2) mEq/L 26 (03/19/21) 27 (02/19/21) 20 (01/24/21) 24 (12/18/20) 24 (11/20/20) 25 OH VITAMIN D ng/mL 11.6 (04/24/20) Albumin is at goal. Encourage high-biological value protein intake. Potassium is at goal. Bicarbonate is at goal. Continue same bicarbonate in dialysate. Bone and Mineral Metabolism Assessment Calcium mg/dL 9.2 (03/19/21) 9.4 (02/19/21) 8.6 (01/24/21) 9.3 (12/18/20) 9.4 (11/20/20) CALCIUM (MG/DL) CORRECTED FOR ALBUMIN IN SER/PLAS mg/dL 9.1 (03/19/21) 9.2 (02/19/21) 8.9 (01/24/21) 9.5 (12/18/20) 9.4 (11/20/20) PHOSPHATE (MG/DL) IN SER/PLAS mg/dL 3.8 (03/19/21) 3.7 (02/19/21) 6.4 (01/24/21) 5.3 (12/18/20) 5.1 (11/20/20) CALCIUM PHOSPHORUS PRODUCT, COR 35 (03/19/21) 34 (02/19/21) 57 (01/24/21) 50 (12/18/20) 48 (11/20/20) IPTH pg/mL 342 (03/19/21) 398 (03/03/21) 778 (01/29/21) 600 (01/24/21) 493 (10/23/20) Corrected Calcium is at goal. Phosphorous is at goal. Intact PTH is at goal. Forging Dies Final Finisher will adjust binders and vitamin D per protocol and continue to provide dietary education. Cardiovascular Assessment Blood pressures reviewed and are acceptable. Intradialytic weight gains are appropriate. Estimated dry weight is appropriate. Transplant Status: Patient is on transplant list. Kel. Just needs to get dental clearance to coordinator and she will be listed. Note 26 year old adopted daughter with mild developmental delay is considering donation. I have strongly encouraged Stephanie to entirely quit smoking, which she is working on Resuscitation Status Stable dialysis, no change in prescription López Mariano MD [ Signed And locked electronically On 04/02/2021 at 12:49:49 PM ] Transcribed: López Mariano ( 04/02/2021 ) documented in this encounter Plan of Treatment Not on filedocumented as of this encounter Visit Diagnoses Not on filedocumented in this encounter
--- OUTSIDE RECORDS SUMMARY | 2021-12-28 14:07 | XMS_ITS | Encounter Summary ---
:1965 Author Organization [facility] Address [address] [place] [address] Care Team Providers Name Role Phone Unavailable Primary Care Provider Unavailable Encounter Details Date Type Department Care Team Description 05/28/2021 Orders Only [facility] f López Awad MD [address] [facility] [address] [place], [place] [phone] (Wo rk) Social History Tobacco Use Types Packs/Day Years Used Date Smoking Tobacco: Never Assessed Sex Assigned at Date Recorded Not on file documented as of this encounter Plan of Treatment Not on filedocumented as of this encounter Procedures Procedure Name Priority Date/Time Associated Diagnosis Comme nts HEMATOLOGY Routine 05/28/2021 Results for thi s procedure are in the resu lts section. documented in this encounter Results (ABNORMAL) HEMATOLOGY (05/28/2021) Analysis Performed At Patho logist Time Signature Hemoglobin 11.9 (L) 12.0 - [facility] 16.0 g/dL [facility] Hemoglobin x 3 35.7 (L) 36.0 - [facility] 48.0 % [facility] Specimen (Source) Anatomical Collection Method Collection Time Re ceived Time Location / / Volume Laterality 05/28/2021 05/29/2021 12:2 5 PM WOOD SCRAP HANDLER Narrative [facility] - 05/29/2021 Unless otherwise specified, test(s) performed at: [facility], [address] [place] [address] PHARMACY TECHNICIAN TRAINEE: Yoseph Rose M.D. For any questions, please call customer service at FREQUENCY:OTHER Resulting Agency Comment Specimen source: Blood López Mariano MD LAB BLOOD ORDERABLES Performing Organization Address City/State/ZIP Code Phon e Number [facility] documented in this encounter Visit Diagnoses Not on filedocumented in this encounter
--- OUTSIDE RECORDS SUMMARY | 2021-12-28 14:07 | XMS_ITS | Encounter Summary ---
:1965 Author Organization [facility] Address [address] [place] [address] Care Team Providers Name Role Phone Unavailable Primary Care Provider Unavailable Encounter Details Date Type Department Care Team Description 06/11/2021 Orders Only [facility] f López Awad MD [address] [place] [address] [place], [place] [phone] (Wo rk) Social History Tobacco Use Types Packs/Day Years Used Date Smoking Tobacco: Never Assessed Sex Assigned at Date Recorded Not on file documented as of this encounter Plan of Treatment Not on filedocumented as of this encounter Procedures Procedure Name Priority Date/Time Associated Diagnosis Comme nts HEMATOLOGY Routine 06/11/2021 Results for thi s procedure are in the resu lts section. documented in this encounter Results (ABNORMAL) HEMATOLOGY (06/11/2021) Analysis Performed At Patho logist Time Signature Hemoglobin 11.4 (L) 12.0 - [facility] 16.0 g/dL [facility] Hemoglobin x 3 34.2 (L) 36.0 - [facility] 48.0 % [facility] Specimen (Source) Anatomical Collection Method Collection Time Re ceived Time Location / / Volume Laterality 06/11/2021 06/12/2021 1:14 PM FOOD SERVICE ASSISTANT Narrative [facility] - 06/12/2021 Unless otherwise specified, test(s) performed at: [facility], [address] [place] [address] BUS ATTENDANT: Yoseph Rose M.D. For any questions, please call customer service at FREQUENCY:OTHER Resulting Agency Comment Specimen source: Blood López Mariano MD LAB BLOOD ORDERABLES Performing Organization Address City/State/ZIP Code Phon e Number [facility] documented in this encounter Visit Diagnoses Not on filedocumented in this encounter
--- OUTSIDE RECORDS SUMMARY | 2021-12-28 14:07 | XMS_ITS | Encounter Summary ---
:1965 Author Organization [facility] Address [address] [place] [address] Care Team Providers Name Role Phone Unavailable Primary Care Provider Unavailable Encounter Details Date Type Department Care Team Description 04/23/2021 Treatment [facility] López Awad MD [address] [place], [place] [phone] (Wo rk) Social History Tobacco Use Types Packs/Day Years Used Date Smoking Tobacco: Never Assessed Sex Assigned at Date Recorded Not on file documented as of this encounter Miscellaneous Notes Dialysis Note - López Mariano MD - 04/23/2021 12:42 PM CST Date: Apr 23, 2021 Patient Name: Stephanie Norman : 1965 Chart #: [id number] Sex: F This patient was personally seen for a complete visit as part of routine monthly dialysis care. A review of the dialysis treatment, blood pressure, estimated dry weight and recent lab values was made. These were discussed with the patient and staff as necessary. Treatment Data for 04/23/2021 started at:11:36 AM Dialyzer: 180NRe Optiflux Na: 137 mEq/L Bicarb: 33 mEq/L Dialysate: 3.0 K, 2.25 Ca, 1.0 Mg, 100 Dextrose (G3231) Dialysate/Machine Temp (prescribed): 37 C Dialysate/Machine Temp (actual): 37 C BFR (prescribed): 400 BFR (actual): 350 Prescribed time: 03:30 EDW: 90 kg Access Type: Active (In Use):AVFistula-Standard/Left Upper Arm Pre Dialysis Vitals (for 04/23/2021 11:34 AM ) Pre BP (sit): 151/80 Pre Wt: 90.2 kg Temp: 95.4 F Post Dialysis Vitals (for 04/21/2021 3:05 PM ) Post BP (sit): 129/68 Post Wt: 89.4 kg Current Dialysis Vitals (for 04/23/2021 12:32 PM ) BP (sit): 131/72 AP(-) / TRAINING AND DEVELOPMENT HEAD: 169/178 Pulse: 72 Chairside data as of 04/23/2021 12:32 PM Last 3 Treatments 04/21/2021 04/18/2021 04/16/2021 EDW (kg) 90 90 90 Weight Pre (kg) 90.8 91 91.5 Weight Post (kg) 89.4 89.7 89.8 Dialytic Weight Loss (kg) -1.4 -1.3 -1.7 EDW Deviation (kg) -0.6 -0.3 -0.2 BP Sit Pre 164/81 146/81 162/82 BP Sit Post 129/68 132/67 139/70 UF Rate (mL/kg/hr) 4 4 5 Prescribed BFR 400 400 400 Average Delivered BFR 360 400 310 Prescribed Treatment Time 03:30 03:30 03:30 Actual Treatment Time 03:31 03:28 03:34 Treatment Medication Orders Medication Sig Start Date End Date Heparin Sodium (Porcine) 1,000 Units/mL Systemic 4000 units IVP Every Treatment 02/26/2021 02/25/2022 Heparin Sodium (Porcine) 1,000 Units/mL Systemic 2000 units IVP Every Treatment 02/26/2021 02/25/2022 Iron Sucrose (Venofer) 50 mg IVP 1X Week 03/31/2021 03/30/2022 Vitamin D (Calcitriol) Oral 0.25 mcg ORAL Every Treatment 2021 03/09/2022 PROGRAMMER ANALYST: López Mariano MD LOCATION: [phone] SCHEDULE: M-W- 2nd Shift EDW: kg. DIALYZER: HD DURATION: NEEDLE SIZE: ANTICOAG: BATH: QB: ml/min QD: ml/min Subjective 04/23/21: Stephanie is feeling absolutely wonderful. In [...] Wednesday. 02/12/21: She saw gen surgery at [facility], sending her up to [facility] to see Dr. Hudson given PKD and future tx and [place] nephrectomies possible. She is liking HD, thinks [...] get to run. PCAD placed yesterday at [facility], fistulagram now with open [...] bilaterally. Cardiovascular - Regular rate. Regular rhythm. Edema [...] Anemia Assessment HEMOGLOBIN (G/DL) IN BLOOD g/dL 11.0 (04/16/21) 10.7 (04/09/21) 10.7 (04/02/21) 10.8 (03/26/21) 10.4 (03/19/21) PLATELETS 1000/mcL 242 (03/19/21) 261 (02/19/21) 217 [...] at goal. Intact PTH is at goal. Jewel Hole Gauger will adjust binders and vitamin D per protocol and continue to provide dietary education. Cardiovascular Assessment Blood pressures reviewed and are acceptable. Intradialytic weight gains are appropriate. Estimated dry weight is appropriate. Transplant Status: Patient is on transplant list. Abbott. Blair needs to get dental clearance to coordinator and she will be listed. Note 26 year old adopted daughter with mild developmental delay is considering donation. I have strongly encouraged Stephanie to entirely quit smoking, which she is working on Resuscitation Status Stable dialysis, no change in prescription Monthly labs today She is working on complete smoking cessation I will write letter to allow 40 hr/week working López Mariano MD [ Signed And locked electronically On 04/23/2021 at 12:43:43 PM ] Transcribed: López Mariano ( 04/23/2021 ) documented in this encounter Plan of Treatment Not on filedocumented as of this encounter Visit Diagnoses Not on filedocumented in this encounter
--- OUTSIDE RECORDS SUMMARY | 2021-12-28 14:07 | XMS_ITS | Encounter Summary ---
:1965 Author Organization [facility] Address [address] [place] [address] Care Team Providers Name Role Phone Unavailable Primary Care Provider Unavailable Encounter Details Date Type Department Care Team Description 04/09/2021 Orders Only [facility] O f López Awad MD [address] [facility] [address] [place], [place] [phone] (Wo rk) Social History Tobacco Use Types Packs/Day Years Used Date Smoking Tobacco: Never Assessed Sex Assigned at Date Recorded Not on file documented as of this encounter Plan of Treatment Not on filedocumented as of this encounter Procedures Procedure Name Priority Date/Time Associated Diagnosis Comme nts HEMATOLOGY Routine 04/09/2021 Results for thi s procedure are in the resu lts section. documented in this encounter Results (ABNORMAL) HEMATOLOGY (04/09/2021) Analysis Performed At Patho logist Time Signature Hemoglobin 10.7 (L) 12.0 - [facility] 16.0 g/dL [facility] Hemoglobin x 3 32.1 (L) 36.0 - [facility] 48.0 % [facility] Specimen (Source) Anatomical Collection Method Collection Time Re ceived Time Location / / Volume Laterality 04/09/2021 04/10/2021 10:4 2 AM AUTOMOTIVE EXHAUST EMISSIONS TECHNICIAN Narrative [facility] - 04/10/2021 Unless otherwise specified, test(s) performed at: [facility], [address] [place] [id number] EMERGENCY SPECIALIST: Yoseph Rose M.D. For any questions, please call customer service at FREQUENCY:OTHER Resulting Agency Comment Specimen source: Blood López Mariano MD LAB BLOOD ORDERABLES Performing Organization Address City/State/ZIP Code Phon e Number [facility] documented in this encounter Visit Diagnoses Not on filedocumented in this encounter
--- OUTSIDE RECORDS SUMMARY | 2021-12-28 14:07 | XMS_ITS | Encounter Summary ---
:1965 Author Organization [facility] Address [address] [place] [address] Care Team Providers Name Role Phone Unavailable Primary Care Provider Unavailable Encounter Details Date Type Department Care Team Description 05/14/2021 Treatment [facility] López Awad MD [address] [place], [place] [phone] (Wo rk) Social History Tobacco Use Types Packs/Day Years Used Date Smoking Tobacco: Never Assessed Sex Assigned at Date Recorded Not on file documented as of this encounter Miscellaneous Notes Dialysis Note - López Mariano MD - 05/14/2021 12:34 PM CST Date: May 14, 2021 Patient Name: Stephanie Norman : 1965 Chart #: [id number] Sex: F This patient was personally seen for a basic visit as part of routine weekly dialysis care. A reviewof the dialysis treatment, blood pressure, estimated dry weight and recent lab values was made. These were discussed with the patient and staff as necessary. Treatment Data for 05/14/2021 started at:11:30 AM Dialyzer: 180NRe Optiflux Na: 137 mEq/L Bicarb: 31 mEq/L Dialysate: 2.0 K, 2.25 Ca, 1.0 Mg, 100 Dextrose (G2231) Dialysate/Machine Temp (prescribed): 37 C Dialysate/Machine Temp (actual): 37.2 C BFR (prescribed): 400 BFR (actual): 375 Prescribed time: 03:30 EDW: 90 kg Access Type: Active (In Use):AVFistula-Standard/Left Upper Arm Pre Dialysis Vitals (for 05/14/2021 11:22 AM ) Pre BP (sit): 155/83 Pre Wt: 89.9 kg Temp: 95 F Post Dialysis Vitals (for 05/12/2021 3:00 PM ) Post BP (sit): 128/68 Post Wt: 89.2 kg Current Dialysis Vitals (for 05/14/2021 12:33 PM ) BP (sit): 121/58 AP(-) / MOTOR RACER: 196/203 Pulse: 64 Chairside data as of 05/14/2021 12:33 PM Last 3 Treatments 05/12/2021 05/09/2021 05/07/2021 EDW (kg) 90 90 90 Weight Pre (kg) 91.4 90.2 91.3 Weight Post (kg) 89.2 89.3 89.4 Dialytic Weight Loss (kg) -2.2 -0.9 -1.9 EDW Deviation (kg) -0.8 -0.7 -0.6 BP Sit Pre 155/87 153/77 158/81 BP Sit Post 128/68 125/63 122/66 UF Rate (mL/kg/hr) 7 3 6 Prescribed BFR 400 400 400 Average Delivered BFR 400 400 370 Prescribed Treatment Time 03:30 03:30 03:30 Actual Treatment Time 03:30 03:31 03:31 Treatment Medication Orders Medication Sig Start Date End Date Heparin Sodium (Porcine) 1,000 Units/mL Systemic 4000 units IVP Every Treatment 02/26/2021 02/25/2022 Heparin Sodium (Porcine) 1,000 Units/mL Systemic 2000 units IVP Every Treatment 02/26/2021 02/25/2022 Iron Sucrose (Venofer) 50 mg IVP 1X Week 05/12/2021 05/11/2022 Vitamin D (Calcitriol) Oral 0.25 mcg ORAL Every Treatment 2021 03/09/2022 PHYSICIST ASTROPHYSICS: López Mariano MD LOCATION: [phone] SCHEDULE: M-W-F 2nd Shift ACCESS: EDW: kg. DIALYZER: HD DURATION: NEEDLE SIZE: ANTICOAG: BATH: QB: ml/min QD: ml/min Subjective No new complaints. 05/14/21: Came in below EDW again today, [...] Wednesday. 02/12/21: She saw gen surgery at [facility], sending her up to [place] to see Dr. Hudson given PKD and future tx and [place] nephrectomies possible. She is liking HD, thinks [...] to run. PCAD placed yesterday at [facility], fistulagram now with open [...] and no changes were made. BUN mg/dL 32 (04/23/21) 28 (03/19/21) 35 [...] (03/19/21) 1.1700 (02/26/21) 0.9800 (02/19/21) 1.1500 (01/31/21) HEMOGLOBIN (G/DL) IN BLOOD g/dL 10.5 (05/07/21) 11.0 (04/30/21) 11.6 (04/23/21) 11.0 (04/16/21) 10.7 (04/09/21) PLATELETS 1000/mcL 234 (04/23/21) 242 (03/19/21) 261 (02/19/21) 217 (01/24/21) 255 (02/21/20) IRON SATURATION % 14 (04/23/21) 26 (03/19/21) 19 (02/19/21) 23 (01/24/21) 25 (12/18/20) FERRITIN ng/mL 868 (04/23/21) 744 (03/26/21) 479 (02/26/21) 486 (01/24/21) 592 (10/23/20) ALBUMIN (G/DL) g/dL 4.4 (04/23/21) 4.1 (03/19/21) 4.2 (02/19/21) Sodium mEq/L 137 (04/23/21) 136 (03/19/21) 137 (02/19/21) POTASSIUM (MMOL/L) IN SER/PLAS mEq/L 4.6 (04/23/21) 4.3 (03/19/21) 4.2 (02/19/21) BICARBONATE (CO2) mEq/L 27 (04/23/21) 26 (03/19/21) 27 (02/19/21) 25 OH VITAMIN D ng/mL 11.6 (04/24/20) 19.9 (04/21/19) 25.6 (02/20/19) BUN/CREATININE (MASS RATIO) IN SER/PLAS 4.2 (04/23/21) 3.7 (03/19/21) 4.1 (02/19/21) GLUCOSE (MG/DL) IN SER/PLAS mg/dL 82 (05/08/19) VOLUME OF URINE mL 300 (12/18/20) 300 (10/23/20) 300 (10/09/20) Calcium mg/dL 9.7 (04/23/21) 9.2 (03/19/21) 9.4 (02/19/21) Calcium Phos Product 36 (04/23/21) 35 (03/19/21) 35 (02/19/21) CALCIUM (MG/DL) CORRECTED FOR ALBUMIN IN SER/PLAS mg/dL 9.4 (04/23/21) 9.1 (03/19/21) 9.2 (02/19/21) PHOSPHATE (MG/DL) IN SER/PLAS mg/dL 3.7 (04/23/21) 3.8 (03/19/21) 3.7 (02/19/21) IPTH pg/mL 283 (04/23/21) 342 (03/19/21) 398 (03/03/21) Vascular Access Assessment: Type of access: Fistula Fistulagram 12/2020 patent and no stenosis. Working well now was of 02/2021 Impression and Plan Stable dialysis Lower EDW to off weight today Active on Tx list! López Mariano MD [ Signed And locked electronically On 05/14/2021 at 12:35:42 PM ] Transcribed: López Mariano ( 05/14/2021 ) documented in this encounter Plan of Treatment Not on filedocumented as of this encounter Visit Diagnoses Not on filedocumented in this encounter
--- OUTSIDE RECORDS SUMMARY | 2021-12-28 14:07 | XMS_ITS | Encounter Summary ---
:1965 Author Organization [facility] Address [address] [place] [address] Care Team Providers Name Role Phone Unavailable Primary Care Provider Unavailable Encounter Details Date Type Department Care Team Description 03/03/2021 Orders Only [facility] f López Awad MD [address] [place] [address] [place], [place] [phone] (Wo rk) Social History Tobacco Use Types Packs/Day Years Used Date Smoking Tobacco: Never Assessed Sex Assigned at Date Recorded Not on file documented as of this encounter Plan of Treatment Not on filedocumented as of this encounter Procedures Procedure Name Priority Date/Time Associated Diagnosis Comme nts CHEMISTRY Routine 03/03/2021 Results for thi s procedure are in the resu lts section. documented in this encounter Results (ABNORMAL) Spectrae Chemistry (03/03/2021) P athologist Signature PTH 398 (H) 16 - 80 APS SPECTRA pg/mL [facility] Specimen (Source) Anatomical Collection Method Collection Time Re ceived Time Location / / Volume Laterality 03/03/2021 03/04/2021 1:30 PM WOOD CARVER Narrative APS SPECTRA [facility] - 03/04/2021 Unless otherwise specified, test(s) performed at: [facility], [address] [place] [address] ROUNDSMAN: Yoseph Rose M.D. For any questions, please call customer service at FREQUENCY:OTHER Resulting Agency Comment Specimen source: Plasma López Mariano MD LAB BLOOD ORDERABLES Performing Organization Address City/State/ZIP Code Phon e Number APS SPECTRA [facility] documented in this encounter Visit Diagnoses Not on filedocumented in this encounter
--- OUTSIDE RECORDS SUMMARY | 2021-12-28 14:07 | XMS_ITS | Encounter Summary ---
:1965 Author Organization [facility] Address [address] [place] [address] Care Team Providers Name Role Phone Unavailable Primary Care Provider Unavailable Encounter Details Date Type Department Care Team Description 04/16/2021 Orders Only [facility] f López Awad MD [address] [facility] [address] [place], [place] [phone] (Wo rk) Social History Tobacco Use Types Packs/Day Years Used Date Smoking Tobacco: Never Assessed Sex Assigned at Date Recorded Not on file documented as of this encounter Plan of Treatment Not on filedocumented as of this encounter Procedures Procedure Name Priority Date/Time Associated Diagnosis Comme nts HEMATOLOGY Routine 04/16/2021 Results for thi s procedure are in the resu lts section. documented in this encounter Results (ABNORMAL) HEMATOLOGY (04/16/2021) Analysis Performed At Patho logist Time Signature Hemoglobin 11.0 (L) 12.0 - APS SPECTRA 16.0 g/dL [facility] Hemoglobin x 3 33.0 (L) 36.0 - APS SPECTRA 48.0 % [facility] Specimen (Source) Anatomical Collection Method Collection Time Re ceived Time Location / / Volume Laterality 04/16/2021 04/17/2021 9:28 AM INCUBATOR TENDER Narrative [facility]PS [facility]PECT[facility] - 04/17/2021 Unless otherwise specified, test(s) performed at: [facility], [address] [place] [address] HEALTH RECORDS TECHNOLOGY TEACHER: Yoseph Rose M.D. For any questions, please call customer service at FREQUENCY:OTHER Resulting Agency Comment Specimen source: Blood López Mariano MD LAB BLOOD ORDERABLES Performing Organization Address City/State/ZIP Code Phon e Number [facility]PS SPECTRA [facility] documented in this encounter Visit Diagnoses Not on filedocumented in this encounter
--- OUTSIDE RECORDS SUMMARY | 2021-12-28 14:07 | XMS_ITS | Encounter Summary ---
:1965 Author Organization [facility] Address [address] [place] [address] Care Team Providers Name Role Phone Unavailable Primary Care Provider Unavailable Encounter Details Date Type Department Care Team Description 04/02/2021 Orders Only [facility] O f López Awad MD [address] [place] [address] [place], [place] [phone] (Wo rk) Social History Tobacco Use Types Packs/Day Years Used Date Smoking Tobacco: Never Assessed Sex Assigned at Date Recorded Not on file documented as of this encounter Plan of Treatment Not on filedocumented as of this encounter Procedures Procedure Name Priority Date/Time Associated Diagnosis Comme nts HEMATOLOGY Routine 04/02/2021 Results for thi s procedure are in the resu lts section. documented in this encounter Results (ABNORMAL) HEMATOLOGY (04/02/2021) Analysis Performed At Patho logist Time Signature Hemoglobin 10.7 (L) 12.0 - APS SPECTRA 16.0 g/dL [facility] Hemoglobin x 3 32.1 (L) 36.0 - APS SPECTRA 48.0 % [facility] Specimen (Source) Anatomical Collection Method Collection Time Re ceived Time Location / / Volume Laterality 04/02/2021 04/03/2021 1:40 PM CONCRETE PUMP OPERATOR Narrative APS SPECTRA [facility] - 04/03/2021 Unless otherwise specified, test(s) performed at: [facility], [address] [place] [address] RN PLASMA CENTER: Yoseph Rose M.D. For any questions, please call customer service at FREQUENCY:OTHER Resulting Agency Comment Specimen source: Blood López Mariano MD LAB BLOOD ORDERABLES Performing Organization Address City/State/ZIP Code Phon e Number [facility]PS SPECTRA [facility] documented in this encounter Visit Diagnoses Not on filedocumented in this encounter
--- OUTSIDE RECORDS SUMMARY | 2021-12-28 14:07 | XMS_ITS | Encounter Summary ---
:1965 Author Organization [facility] Address [address] [place] [address] Care Team Providers Name Role Phone Unavailable Primary Care Provider Unavailable Encounter Details Date Type Department Care Team Description 05/07/2021 Orders Only [facility] f López Awad MD [address] [place] [address] [place], [place] [phone] (Wo rk) Social History Tobacco Use Types Packs/Day Years Used Date Smoking Tobacco: Never Assessed Sex Assigned at Date Recorded Not on file documented as of this encounter Plan of Treatment Not on filedocumented as of this encounter Procedures Procedure Name Priority Date/Time Associated Diagnosis Comme nts HEMATOLOGY Routine 05/07/2021 Results for thi s procedure are in the resu lts section. documented in this encounter Results (ABNORMAL) HEMATOLOGY (05/07/2021) Analysis Performed At Patho logist Time Signature Hemoglobin 10.5 (L) 12.0 - APS SPECTRA 16.0 g/dL [facility] Hemoglobin x 3 31.5 (L) 36.0 - APS SPECTRA 48.0 % [facility] Specimen (Source) Anatomical Collection Method Collection Time Re ceived Time Location / / Volume Laterality 05/07/2021 05/09/2021 11:5 4 AM FIELD CONTROL INSPECTOR Narrative APS SPECTRA [facility] - 05/09/2021 Unless otherwise specified, test(s) performed at: [facility], [address] [place] [address] HOME STAGING SPECIALIST: Yoseph Rose M.D. For any questions, please call customer service at FREQUENCY:OTHER Resulting Agency Comment Specimen source: Blood López Mariano MD LAB BLOOD ORDERABLES Performing Organization Address City/State/ZIP Code Phon e Number APS SPECTRA [facility] documented in this encounter Visit Diagnoses Not on filedocumented in this encounter
--- OUTSIDE RECORDS SUMMARY | 2021-12-28 14:07 | XMS_ITS | Encounter Summary ---
:1965 Author Organization [facility] Address [address] [place] [address] Care Team Providers Name Role Phone Unavailable Primary Care Provider Unavailable Encounter Details Date Type Department Care Team Description 03/26/2021 Orders Only [facility] O f López Awad MD [address] [place] [address] [place], [place] [phone] (Wo rk) Social History Tobacco Use Types Packs/Day Years Used Date Smoking Tobacco: Never Assessed Sex Assigned at Date Recorded Not on file documented as of this encounter Plan of Treatment Not on filedocumented as of this encounter Procedures Procedure Name Priority Date/Time Associated Diagnosis Comme nts HEMATOLOGY Routine 03/26/2021 Results for thi s procedure are in the resu lts section. CHEMISTRY Routine 03/26/2021 Results for thi s procedure are in the resu lts section. documented in this encounter Results (ABNORMAL) Spectrae Chemistry (03/26/2021) P athologist Signature Ferritin 744 (H) 10 - 291 APS SPECTRA ng/mL [facility] Specimen (Source) Anatomical Collection Method Collection Time Re ceived Time Location / / Volume Laterality 03/26/2021 03/27/2021 6:54 PM TIME STUDY ENGINEER Narrative APS SPECTRA [facility] - 03/28/2021 Unless otherwise specified, test(s) performed at: [facility], [address] [place] [address] ANTI TANK MISSILEMAN: Yoseph Rose M.D. For any questions, please call customer service at FREQUENCY:OTHER Resulting Agency Comment Specimen source: Serum López Mariano MD LAB BLOOD ORDERABLES Performing Organization Address City/[facility]/ZIP Code Phon e Number APS SPECTRA [facility] (ABNORMAL) HEMATOLOGY (03/26/2021) Analysis Performed At Patho logist Time Signature Hemoglobin 10.8 (L) 12.0 - APS SPECTRA 16.0 g/dL [facility] Hemoglobin x 3 32.4 (L) 36.0 - APS SPECTRA 48.0 % [facility] Specimen (Source) Anatomical Collection Method Collection Time Re ceived Time Location / / Volume Laterality 03/26/2021 03/27/2021 9:53 AM TIME STUDY ENGINEER Narrative APS SPECTRA [facility] - 03/27/2021 Unless otherwise specified, test(s) performed at: [facility], [address] [place] [address] ANTI TANK MISSILEMAN: Yoseph Rose M.D. For any questions, please call customer service at FREQUENCY:OTHER Resulting Agency Comment Specimen source: Blood López Mariano MD LAB BLOOD ORDERABLES Performing Organization Address City/[facility] Phon e Number APS SPECTRA [facility] documented in this encounter Visit Diagnoses Not on filedocumented in this encounter
--- OUTSIDE RECORDS SUMMARY | 2021-12-28 14:07 | XMS_ITS | Encounter Summary ---
:1965 Author Organization [facility] Address [address] [place] [address] Care Team Providers Name Role Phone Unavailable Primary Care Provider Unavailable Encounter Details Date Type Department Care Team Description 03/12/2021 Orders Only [facility] O f López Awad MD [address] [place] [address] [place], [place] [phone] (Wo rk) Social History Tobacco Use Types Packs/Day Years Used Date Smoking Tobacco: Never Assessed Sex Assigned at Date Recorded Not on file documented as of this encounter Plan of Treatment Not on filedocumented as of this encounter Procedures Procedure Name Priority Date/Time Associated Diagnosis Comme nts HEMATOLOGY Routine 03/12/2021 Results for thi s procedure are in the resu lts section. documented in this encounter Results (ABNORMAL) HEMATOLOGY (03/12/2021) Analysis Performed At Patho logist Time Signature Hemoglobin 9.8 (L) 12.0 - APS SPECTRA 16.0 g/dL [facility] Hemoglobin x 3 29.4 (L) 36.0 - APS SPECTRA 48.0 % [facility] Specimen (Source) Anatomical Collection Method Collection Time Re ceived Time Location / / Volume Laterality 03/12/2021 03/14/2021 10:0 7 AM DIRECTOR REGULATORY COMPLIANCE Narrative APS SPECTRA [facility] - 03/14/2021 Unless otherwise specified, test(s) performed at: [facility], [address] [place] [address] SHIRT LINE OPERATOR: Yoseph Rose M.D. For any questions, please call customer service at FREQUENCY:OTHER Resulting Agency Comment Specimen source: Blood López Mariano MD LAB BLOOD ORDERABLES Performing Organization Address City/State/ZIP Code Phon e Number [facility]PS SPECTRA [facility] documented in this encounter Visit Diagnoses Not on filedocumented in this encounter
--- OUTSIDE RECORDS SUMMARY | 2021-12-28 14:07 | XMS_ITS | Encounter Summary ---
:1965 Author Organization [facility] Address [address] [place] [address] Care Team Providers Name Role Phone Unavailable Primary Care Provider Unavailable Encounter Details Date Type Department Care Team Description 03/05/2021 Treatment [facility] f López Awad MD [address] [place], [place] [phone] (Wo rk) Social History Tobacco Use Types Packs/Day Years Used Date Smoking Tobacco: Never Assessed Sex Assigned at Date Recorded Not on file documented as of this encounter Miscellaneous Notes Dialysis Note - López Mariano MD - 03/05/2021 12:29 PM CST Date: Mar 05, 2021 Patient Name: Stephanie Norman : 1965 Chart #: [id number] Sex: F This patient was personally seen for a basic visit as part of routine weekly dialysis care. A reviewof the dialysis treatment, blood pressure, estimated dry weight and recent lab values was made. These were discussed with the patient and staff as necessary. Treatment Data for 03/05/2021 started at:12:00 PM Dialyzer: 180NRe Optiflux Na: 137 mEq/L Bicarb: 35 mEq/L Dialysate: 3.0 K, 2.25 Ca, 1.0 Mg, 100 Dextrose (G3231) Dialysate/Machine Temp (prescribed): 37 C Dialysate/Machine Temp (actual): 37 C BFR (prescribed): 250 BFR (actual): 250 Prescribed time: 03:00 EDW: 97 kg Access Type: Active (In Use):PDCatheter-Double Cuff Coiled/Left Lower Quadrant,CVCatheter-Tunneled/Chest Pre Dialysis Vitals (for 03/05/2021 11:43 AM ) Pre BP (sit): 164/82 Pre Wt: 96.7 kg Temp: 96.4 F Post Dialysis Vitals (for 03/03/2021 11:28 AM ) Post BP (sit): 143/72 Post Wt: 96.5 kg Current Dialysis Vitals (for 03/05/2021 12:01 PM ) BP (sit): n/a AP(-) / ORACLE OBIEE DEVELOPER: 90/86 Pulse: n/a Chairside data as of 03/05/2021 12:01 PM Last 3 Treatments 03/03/2021 02/28/2021 02/26/2021 EDW (kg) 97 97 97 Weight Pre (kg) 96.8 96.8 96.8 Weight Post (kg) 96.5 96.3 96.2 Dialytic Weight Loss (kg) -0.3 -0.5 -0.6 EDW Deviation (kg) -0.5 -0.7 -0.8 BP Sit Pre 174/81 151/75 145/76 BP Sit Post 143/72 145/77 151/77 UF Rate (mL/kg/hr) 1 2 2 Prescribed BFR 250 250 250 Average Delivered BFR 400 380 350 Prescribed Treatment Time 03:00 03:00 03:00 Actual Treatment Time 03:03 03:01 03:01 Treatment Medication Orders Medication Sig Start Date End Date Heparin Sodium (Porcine) 1,000 Units/mL Catheter Lock Arterial 2000 units Arterial Red Port Every Treatment 01/29/2021 01/28/2022 Heparin Sodium (Porcine) 1,000 Units/mL Catheter Lock Venous 2100 units Venous Blue Port Every Treatment 01/29/2021 01/28/2022 Heparin Sodium (Porcine) 1,000 Units/mL Systemic 4000 units IVP Every Treatment 02/26/2021 02/25/2022 Heparin Sodium (Porcine) 1,000 Units/mL Systemic 2000 units IVP Every Treatment 02/26/2021 02/25/2022 Iron Sucrose (Venofer) 100 mg IVP Every Treatment 03/03/2021 03/24/2021 BRASS POURER: López Mariano MD LOCATION: [phone] SCHEDULE: M-W- 2nd Shift ACCESS: EDW: kg. DIALYZER: HD DURATION: NEEDLE SIZE: ANTICOAG: BATH: QB: ml/min QD: ml/min Subjective 03/05/21: She had community acquired pneomonia, treated. [...] Wednesday. 02/12/21: She saw gen surgery at [facility], sending her up to [place] to see Dr. Hudson given PKD and future tx and [place] nephrectomies possible. She is liking HD, thinks [...] get to run. PCAD placed yesterday at [facility], fistulagram now with open access. This is its first use. She is feeling well. Would like to go back to [facility] if possible. Advanced Practitioner Subjective: None reported. Problem List Description ICD9 Code ICD10 Code Autosomal dominant polycystic kidney disease Q61.3 End stage renal disease 585.6 N18.6 Dependence on renal dialysis V45.11 Z99.2 Anemia in end stage renal disease D63.1 N18.6 Hyperparathyroidism due to renal insufficiency 588.81 N25.81 Hypertensive disorder 401.9 I10 Exam Respiratory - breathing comfortably on RA Cardiovascular Regular rate. Regular rhythm. Edema - [...] and no changes were made. BUN mg/dL 35 (02/26/21) 34 (02/19/21) 48 (01/31/21) 70 (01/24/21) 42 (12/18/20) UREA NITROGEN (MG/DL) IN SER/PLAS - POST DIALYSIS mg/dL 12 (02/26/21) 14 (02/19/21) 18 (01/31/21) 30 (01/24/21) URR % 66 (02/26/21) 59 (02/19/21) 63 (01/31/21) 57 (01/24/21) spKt/V Gotch 1.19 (02/26/21) 1 (02/19/21) 1.25 (01/31/21) eKdrt/V 1.13 (02/26/21) .98 (02/19/21) 1.23 (01/31/21) spKt/V (Daugirdas II) 1.1700 (02/26/21) 0.9800 (02/19/21) 1.1500 (01/31/21) 0.9700 (01/24/21) HEMOGLOBIN (G/DL) IN BLOOD g/dL 10.1 (02/26/21) 10.6 (02/19/21) 9.9 (02/17/21) 9.9 (01/29/21) 10.6 (01/24/21) PLATELETS 1000/mcL 261 (02/19/21) 217 (01/24/21) 255 (02/21/20) IRON SATURATION % 19 (02/19/21) 23 (01/24/21) 25 (12/18/20) 32 (11/20/20) 25 (10/23/20) FERRITIN ng/mL 479 (02/26/21) 486 (01/24/21) 592 (10/23/20) 228 (07/31/20) 292 (04/24/20) ALBUMIN (G/DL) g/dL 4.2 (02/19/21) 3.6 (01/24/21) 3.8 (12/18/20) Sodium mEq/L 137 (02/19/21) 127 (01/24/21) 137 (12/18/20) POTASSIUM (MMOL/L) IN SER/PLAS mEq/L 4.2 (02/19/21) 4.3 (01/24/21) 3.7 (12/18/20) BICARBONATE (CO2) mEq/L 27 (02/19/21) 20 (01/24/21) 24 (12/18/20) 25 OH VITAMIN D ng/mL 11.6 (04/24/20) 19.9 (04/21/19) 25.6 (02/20/19) BUN/CREATININE (MASS RATIO) IN SER/PLAS 4.1 (02/19/21) 5.0 (01/24/21) 4.1 (12/18/20) GLUCOSE (MG/DL) IN SER/PLAS mg/dL 82 (05/08/19) VOLUME OF URINE mL 300 (12/18/20) 300 (10/23/20) 300 (10/09/20) Calcium mg/dL 9.4 (02/19/21) 8.6 (01/24/21) 9.3 (12/18/20) Calcium Phos Product 35 (02/19/21) 55 (01/24/21) 49 (12/18/20) CALCIUM (MG/DL) CORRECTED FOR ALBUMIN IN SER/PLAS mg/dL 9.2 (02/19/21) 8.9 (01/24/21) 9.5 (12/18/20) PHOSPHATE (MG/DL) IN SER/PLAS mg/dL 3.7 (02/19/21) 6.4 (01/24/21) 5.3 (12/18/20) IPTH pg/mL 398 (03/03/21) 778 (01/29/21) 600 (01/24/21) Vascular Access Assessment: Type of access: Fistulaand now PCAD, also PD catheter Fistulagram 12/2020 patent and no stenosis. Working well now with 17g needles, advance 02/21 Impression and Plan I will increase time to 3.5hrs for better adequacy and based on her size Procedure next week as above, will hold heparin Mon and Wed surrounding this PCAD to come out at time of procedure next week, AVF working well No other changes at this time, she is doing well on hemodialysis. She does not want to go back to PD López Mariano MD [ Signed And locked electronically On 03/05/2021 at 12:31:35 PM ] Transcribed: López Mariano ( 03/05/2021 ) documented in this encounter Plan of Treatment Not on filedocumented as of this encounter Visit Diagnoses Not on filedocumented in this encounter
--- OUTSIDE RECORDS SUMMARY | 2021-12-28 14:07 | XMS_ITS | Encounter Summary ---
:1965 Author Organization [facility] Address [address] [place] [address] Care Team Providers Name Role Phone Unavailable Primary Care Provider Unavailable Encounter Details Date Type Department Care Team Description 02/26/2021 Orders Only [facility] O f López Awad MD [address] [place] [address] [place], [place] [phone] [phone] (Wo rk) Social History Tobacco Use Types Packs/Day Years Used Date Smoking Tobacco: Never Assessed Sex Assigned at Date Recorded Not on file documented as of this encounter Plan of Treatment Not on filedocumented as of this encounter Procedures Procedure Name Priority Date/Time Associated Diagnosis Comme nts HD KINETICS Routine 02/26/2021 Results for thi s procedure are i n the results section . POST CHEMISTRY Routine 02/26/2021 Results for t his procedure are i n the results section . HEMATOLOGY Routine 02/26/2021 Results for thi s procedure are i n the results section . CHEMISTRY Routine 02/26/2021 Results for thi s procedure are i n the results section . SPECTRA [facility] LAB RESULTS Routine 02/26/2021 Resul ts for this procedure are i n the results section . documented in this encounter Results Spectra [facility] Lab Results (02/26/2021) P athologist Signature spKt/V 1.17 [place] ([place]) eKdrt/V 1.13 [place] PCR 39.43 [place] spKt/V Gotch 1.19 [place] eKt/V 0.98 [place] ([place]) eNPCR 0.60 [place] nPCR_HD 0.64 [place] eKt/V Gotch 0.98 [place] Specimen (Source) Anatomical Location Collection Method / Collectio n Time Received Time / Laterality Volume 02/26/2021 02/26/2021 [place] Ordering Provider LAB BLOOD ORDERABLES Performing Organization Address City/[facility]/ZIP Code Phon e Number [facility] HD KINETICS (02/26/2021) P athologist Signature % Urea 66 65 - 80 % APS SPECTRA Reduction [facility] Specimen (Source) Anatomical Collection Method Collection Time Re ceived Time Location / / Volume Laterality 02/26/2021 02/27/2021 10:3 6 PM SHELF STOCKER Narrative APS SPECTRA [facility] - 02/28/2021 Unless otherwise specified, test(s) performed at: [facility], [address] [place] [address] PLACER MINER: Yoseph Rose M.D. For any questions, please call customer service at FREQUENCY:OTHER Resulting Agency Comment Specimen source: Serum López Mariano MD LAB BLOOD ORDERABLES Performing Organization Address [facility] Phon e Number APS SPECTRA [facility] (ABNORMAL) HEMATOLOGY (02/26/2021) Analysis Performed At Patho logist Time Signature Hemoglobin 10.1 (L) 12.0 - APS SPECTRA 16.0 g/dL [facility] Hemoglobin x 3 30.3 (L) 36.0 - APS [facility]RA 48.0 % [facility] Specimen (Source) Anatomical Collection Method Collection Time Re ceived Time Location / / Volume Laterality 02/26/2021 02/27/2021 9:19 PM SHELF STOCKER Narrative APS SPECTRA [facility] - 02/28/2021 Unless otherwise specified, test(s) performed at: [facility], [address] [place] [address] PLACER MINER: Yoseph Rose M.D. For any questions, please call customer service at FREQUENCY:OTHER Resulting Agency Comment Specimen source: Blood López Mariano MD LAB BLOOD ORDERABLES Performing Organization Address City/[facility]/ZIP Code Phon e Number APS SPECTRA [facility] (ABNORMAL) Spectrae Chemistry (02/26/2021) P athologist Signature Ferritin 479 (H) 10 - 291 APS SPECTRA ng/mL [facility] BUN 35 (H) 6 - 19 APS SPECTRA mg/dL [facility] Specimen (Source) Anatomical Collection Method Collection Time Re ceived Time Location / / Volume Laterality 02/26/2021 02/27/2021 10:3 6 PM SHELF STOCKER Narrative APS SPECTRA [facility] - 02/28/2021 Unless otherwise specified, test(s) performed at: [facility], [address] [place], [place] [id number] PLACER MINER: Yoseph Rose M.D. For any questions, please call customer service at FREQUENCY:OTHER Resulting Agency Comment Specimen source: Serum López Mariano MD LAB BLOOD ORDERABLES Performing Organization Address City/State/ZIP [facility] Phon e Number APS SPECTRA [facility] POST CHEMISTRY (02/26/2021) P athologist Signature BUN Post 12 6 - 19 APS SPECTRA Dialysis mg/dL [facility] Specimen (Source) Anatomical Collection Method Collection Time Re ceived Time Location / / Volume Laterality 02/26/2021 02/27/2021 4:27 PM SHELF STOCKER Narrative APS SPECTRA [facility] - 02/27/2021 Unless otherwise specified, test(s) performed at: [facility], [address] [place] [address] PLACER MINER: Yoseph Rose M.D. For any questions, please call customer service at FREQUENCY:OTHER Resulting Agency Comment Specimen source: Plasma López Mariano MD LAB BLOOD ORDERABLES Performing Organization Address City/State/ZIP [facility] Phon e Number APS SPECTRA [facility] documented in this encounter Visit Diagnoses Not on filedocumented in this encounter
--- OUTSIDE RECORDS SUMMARY | 2021-12-28 14:07 | XMS_ITS | Encounter Summary ---
:1965 Author Organization [facility] Address [address] [place] [address] Care Team Providers Name Role Phone Unavailable Primary Care Provider Unavailable Encounter Details Date Type Department Care Team Description 05/21/2021 Orders Only [facility] O f López Awad MD [phone] [place] [address] [place], [place] [phone] (Wo rk) Social History Tobacco Use Types Packs/Day Years Used Date Smoking Tobacco: Never Assessed Sex Assigned at Date Recorded Not on file documented as of this encounter Plan of Treatment Not on filedocumented as of this encounter Procedures Procedure Name Priority Date/Time Associated Diagnosis Comme nts HD KINETICS Routine 05/21/2021 Results for thi s procedure are i n the results section . POST CHEMISTRY Routine 05/21/2021 Results for t his procedure are i n the results section . HEMATOLOGY Routine 05/21/2021 Results for thi s procedure are i n the results section . CHEMISTRY Routine 05/21/2021 Results for thi s procedure are i n the results section . SPECTRA [facility] LAB RESULTS Routine 05/21/2021 Resul ts for this procedure are i n the results section . documented in this encounter Results Spectra [facility] Lab Results (05/21/2021) P athologist Signature spKt/V Gotch 1.46 [facility] eKt/V Gotch 1.24 [facility] spKt/V 1.43 [place] ([place] II) eKt/V 1.22 [place] ([place]) eNPCR 0.85 [place] nPCR_HD 0.92 [place] PCR 56.99 [place] eKdrt/V 1.24 [facility] Specimen (Source) Anatomical Location Collection Method / Collectio n Time Received Time / Laterality Volume 05/21/2021 05/21/2021 [place] Ordering Provider LAB BLOOD ORDERABLES Performing Organization Address City/State/ZIP Code Phon e Number [facility] HD KINETICS (05/21/2021) P athologist Signature % Urea 72 65 - 80 % APS SPECTRA Reduction [facility] Specimen (Source) Anatomical Collection Method Collection Time Re ceived Time Location / / Volume Laterality 05/21/2021 05/22/2021 3:00 PM AUTOMOBILE LIGHTS ASSEMBLER Narrative APS SPECTRA [facility] - 05/22/2021 Unless otherwise specified, test(s) performed at: [facility], [address] [place] [address] HEALTHCARE ADMINISTRATION INTERN: Yoseph Rose M.D. For any questions, please call customer service at FREQUENCY:MONTHLY Resulting Agency Comment Specimen source: Serum López Mariano MD LAB BLOOD ORDERABLES Performing Organization Address City/State/ZIP Code Phon e Number APS SPECTRA [facility] (ABNORMAL) Spectrae Chemistry (05/21/2021) Patholo gist Method Time Signature BUN 53 (H) 6 - 19 APS SPECTRA mg/dL [facility] Creatinine 7.63 (H) 0.60 - APS SPECTRA 1.30 mg/dL [facility] BUN/Creatinine 6.9 (L) 10.0 - APS SPECTRA Ratio 20.0 [facility] Sodium 136 136 - 145 APS SPECTRA mEq/L [facility] Potassium 4.9 3.5 - 5.1 APS SPECTRA mEq/L [facility] Chloride 97 96 - 108 APS SPECTRA mEq/L [facility] Bicarbonate 26 22 - 29 APS SPECTRA (CO2) mEq/L [facility] Calcium 9.7 8.4 - 10.2 APS SPECTRA mg/dL [facility] Corrected 9.3 8.4 - 10.2 APS SPECTRA Calcium mg/dL [facility] Comment: Corrected Calcium is not equivalent to m easured Ionized Calcium. Phosphorus 4.2 2.6 - 4.5 mg/dL APS SPECTRA [facility] Calcium Phosphorus Product 41 0 - 54 APS SPECTRA [facility] Calcium Phosporus Product, Cor 39 0 - 54 APS SPECTRA [facility] Total Protein 7.4 6.0 - 8.5 g/dL APS SPECTRA [facility] Albumin 4.5 3.5 - 5.2 g/dL APS SPECTRA [facility] Globulin, Total 2.9 2.0 - 4.0 g/dL APS SPECT RA [facility] A/G Ratio 1.6 1.0 - 2.0 APS SPECTRA [facility] Iron 85 30 - 160 mcg/dL APS SPECTRA [place] [facility] UIBC 205 155 - 355 mcg/dL APS SPECTRA [facility] TIBC 290 185 - 515 mcg/dL APS SPECTRA [facility] Iron Saturation (TSat) 29 20 - 55 % APS SPE CTRA [facility] Specimen (Source) Anatomical Collection Method Collection Time Re ceived Time Location / / Volume Laterality 05/21/2021 05/22/2021 3:00 PM AUTOMOBILE LIGHTS ASSEMBLER Narrative APS SPECTRA [facility] - 05/22/2021 Unless otherwise specified, test(s) performed at: [facility], [address] [place], [place] [id number] HEALTHCARE ADMINISTRATION INTERN: Yoseph Rose M.D. For any questions, please call customer service at FREQUENCY:MONTHLY Resulting Agency Comment Specimen source: Serum López Mariano MD LAB BLOOD ORDERABLES Performing Organization Address City/[facility] Phon e Number APS SPECTRA [facility] POST CHEMISTRY (05/21/2021) P athologist Signature BUN Post 15 6 - 19 APS SPECTRA Dialysis mg/dL [facility] Specimen (Source) Anatomical Collection Method Collection Time Re ceived Time Location / / Volume Laterality 05/21/2021 05/22/2021 2:42 PM AUTOMOBILE L[employer] ASSEMBLER Narrative APS SPECTRA [facility] - 05/22/2021 Unless otherwise specified, test(s) performed at: [facility], [address] [place] [id number] HEALTHCARE ADMINISTRATION INTERN: Yoseph Rose M.D. For any questions, please call customer service at FREQUENCY:MONTHLY Resulting Agency Comment Specimen source: Plasma López Mariano MD LAB BLOOD ORDERABLES Performing Organization Address City/[facility]/ZIP [facility] Phon e Number APS SPECTRA [facility] (ABNORMAL) HEMATOLOGY (05/21/2021) Patholo gist Method Time Signature WBC 7.43 4.80 - APS SPECTRA 10.80 [facility] 1000/mcL RBC 3.70 (L) 4.20 - APS SPECTRA 5.40 [facility] mill/mcL Hemoglobin 12.2 12.0 - APS SPECTRA 16.0 g/dL [facility] Hemoglobin x 3 36.6 36.0 - APS SPECTRA 48.0 % [facility] Hematocrit 36.0 (L) 37.0 - APS SPECTRA 47.0 % [facility] MCV 97 80 - 100 APS SPECTRA fl [facility] MCH 32.8 (H) 27.0 - APS SPECTRA 31.0 pg [facility] MCHC 33.7 30.0 - APS SPECTRA 36.0 g/dL [facility] RDW 13.5 11.5 - APS SPECTRA 14.5 % [facility] Neutrophils 73.4 40.0 - APS SPECTRA 75.0 % [facility] Lymphocytes 15.9 (L) 19.0 - APS SPECTRA Relative 48.0 % [facility] Monocytes 4.3 3.0 - 10.0 APS SPECTRA % [facility] Eosinophils 2.1 0.0 - 7.0 APS SPECTRA Relative % [facility] Basophils 3.3 (H) 0.0 - 1.5 APS SPECTRA Relative % [facility] JESSICA 1.0 0.0 - 4.0 APS SPECTRA % [facility] Platelets 237 130 - 400 APS SPECTRA 1000/mcL [facility] Specimen (Source) Anatomical Collection Method Collection Time Re ceived Time Location / / Volume Laterality 05/21/2021 05/22/2021 1:19 PM AUTOMOBILE LIGHTS ASSEMBLER Narrative APS SPECTRA [facility] - 05/22/2021 Unless otherwise specified, test(s) performed at: [facility], [address] [place] [id number] [employer]ALTHCARE ADMINISTRATION INTERN: Yoseph Rose M.D. For any questions, please call customer service at FREQUENCY:MONTHLY Resulting Agency Comment Specimen source: Blood López Mairano MD LAB BLOOD ORDERABLES Performing Organization Address City/State/ZIP Code Phon e Number APS SPECTRA [facility] documented in this encounter Visit Diagnoses Not on filedocumented in this encounter
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
--- OUTSIDE RECORDS SUMMARY | 2021-12-28 14:08 | XMS_ITS | Encounter Summary ---
:1965 Author Organization [facility] Address [address] [place] [address] Care Team Providers Name Role Phone Unavailable Primary Care Provider Unavailable Encounter Details Date Type Department Care Team Description 01/31/2021 Orders Only [facility] López Awad MD [phone] [place] [address] [place], [place] [phone] (Wo rk) Social History Tobacco Use Types Packs/Day Years Used Date Smoking Tobacco: Never Assessed Sex Assigned at Date Recorded Not on file documented as of this encounter Plan of Treatment Not on filedocumented as of this encounter Procedures Procedure Name Priority Date/Time Associated Diagnosis Comme nts HD KINETICS Routine 01/31/2021 Results for thi s procedure are i n the results section . POST CHEMISTRY Routine 01/31/2021 Results for t his procedure are i n the results section . CHEMISTRY Routine 01/31/2021 Results for thi s procedure are i n the results section . SPECTRA [facility] LAB RESULTS Routine 01/31/2021 Resul ts for this procedure are i n the results section . documented in this encounter Results Spectra [facility] Lab Results (01/31/2021) P athologist Signature PCR 54.69 [place] eKt/V 0.97 [place] ([place]) spKt/V Gotch 1.25 [place] nPCR_HD 0.95 [place] eNPCR 0.87 [place] spKt/V 1.15 [place] ([place]) eKt/V Gotch 1.03 [place] eKdrt/V 1.23 [place] Specimen (Source) Anatomical Location Collection Method / Collectio n Time Received Time / Laterality Volume 01/31/2021 01/31/2021 [place] Ordering Provider LAB BLOOD ORDERABLES Performing Organization Address City/State/ZIP Code Phon e Number [place] (ABNORMAL) HD KINETICS (01/31/2021) P athologist Signature % Urea 63 (L) 65 - 80 % APS SPECTRA Reduction [facility] Specimen (Source) Anatomical Collection Method Collection Time Re ceived Time Location / / Volume Laterality 01/31/2021 02/01/2021 12:3 2 PM CDT Narrative [facility]PS SPECTRA [facility] - 02/01/2021 Unless otherwise specified, test(s) performed at: [facility], [address] [place] [address] CDL COMPANY DRIVER: Yoseph Rose M.D. For any questions, please call customer service at FREQUENCY:OTHER Resulting Agency Comment Specimen source: Serum López Mariano MD LAB BLOOD ORDERABLES Performing Organization Address City/[facility] Phon e Number APS SPECTRA [facility] (ABNORMAL) Spectrae Chemistry (01/31/2021) P athologist Signature BUN 48 (H) 6 - 19 APS SPECTRA mg/dL [facility] Specimen (Source) Anatomical Collection Method Collection Time Re ceived Time Location / / Volume Laterality 01/31/2021 02/01/2021 12:3 2 PM CDT Narrative APS SPECTRA [facility] - 02/01/2021 Unless otherwise specified, test(s) performed at: [facility], [address] [place] [id number] CDL COMPANY DRIVER: Yoseph Rose M.D. For any questions, please call customer service at FREQUENCY:OTHER Resulting Agency Comment Specimen source: Serum López Mariano MD LAB BLOOD ORDERABLES Performing Organization Address City/[facility] Phon e Number APS SPECTRA [facility] POST CHEMISTRY (01/31/2021) P athologist Signature BUN Post 18 6 - 19 APS SPECTRA Dialysis mg/dL [facility] Specimen (Source) Anatomical Collection Method Collection Time Re ceived Time Location / / Volume Laterality 01/31/2021 02/01/2021 11:3 7 AM CDT Narrative APS SPECTRA [facility] - 02/01/2021 Unless otherwise specified, test(s) performed at: [facility], [address] [place], [place] [id number] CDL COMPANY DRIVER: Yoseph Rose M.D. For any questions, please call customer service at FREQUENCY:OTHER Resulting Agency Comment Specimen source: Plasma López Mariano MD LAB BLOOD ORDERABLES Performing Organization Address City/State/ZIP Code Phon e Number APS SPECTRA [facility] documented in this encounter Visit Diagnoses Not on filedocumented in this encounter
--- OUTSIDE RECORDS SUMMARY | 2021-12-28 14:08 | XMS_ITS | Encounter Summary ---
:1965 Author Organization [facility] Address [address] [place] [address] Care Team Providers Name Role Phone Unavailable Primary Care Provider Unavailable Encounter Details Date Type Department Care Team Description 08/07/2020 Telephone [facility] Francheska Pinedo, ANGELIKA [address] [place] [phone] (Wo rk) Social History Tobacco Use Types Packs/Day Years Used Date Smoking Tobacco: Never Assessed Sex Assigned at Date Recorded Not on file documented as of this encounter Miscellaneous Notes Telephone Encounter - Francheska Ludwig RN - 08/07/2020 1:[address] [facility] pharmacy [facility] left a voicemail regarding this pt. Referred them to the pts dialysis unit to have the prescription refilled. Francheska Ludwig RN documented in this encounter Plan of Treatment Not on filedocumented as of this encounter Visit Diagnoses Not on filedocumented in this encounter
--- OUTSIDE RECORDS SUMMARY | 2021-12-28 14:08 | XMS_ITS | Encounter Summary ---
:1965 Author Organization [facility] Address [address] [place] [address] Care Team Providers Name Role Phone Unavailable Primary Care Provider Unavailable Encounter Details Date Type Department Care Team Description 01/29/2021 Treatment [facility] López Awad MD [address] [place], [place] [phone] (Wo rk) Social History Tobacco Use Types Packs/Day Years Used Date Smoking Tobacco: Never Assessed Sex Assigned at Date Recorded Not on file documented as of this encounter Miscellaneous Notes Dialysis Note - López Mariano MD - 01/29/2021 1:45 PM CDT Date: Jan 29, 2021 Patient Name: Stephanie Norman : 1965 Chart #: [id number] Sex: F Patient Type: ESRD Modality: Hemodialysis Primary Cause of Renal Failure: Q61.3 - Autosomal dominant polycystic kidney disease Chemistry Lecturer: López Mariano MD Location: [phone] Schedule: M-W- 2nd Shift Initial Access Date Regular Chronic Dialysis Began: 02/20/2019Initial Modality: Peritoneal Dialysis Initial Access used on first patient dialysis: PD Catheter Current Access Access used for current outpatient dialysis: PD Catheter López Mariano MD [ Signed And locked electronically On 01/29/2021 at 12:45:07 PM ] Transcribed: López Mariano MD ( 01/29/2021 ) Dialysis Note - López Mariano MD - 01/29/2021 12:45 PM CDT Date: Jan 29, 2021 Patient Name: Stephanie Norman: 1965 Chart #: [id number] Sex: F This patient was personally seen for a complete visit as part of routine monthly dialysis care. A review of the dialysis treatment, blood pressure, estimated dry weight and recent lab values was made. These were discussed with the patient and staff as necessary. COOK MESS: López Mariaon MD LOCATION: [phone] SCHEDULE: -- 2nd Shift EDW: kg. DIALYZER: HD DURATION: NEEDLE SIZE: ANTICOAG: BATH: QB: ml/min QD: ml/min Subjective 01/29/21: Had hernia about 2 inches from her PD catheter site, fluid coming in and out of it. PD stopped. Transitioned to HD. AVF unfortunately infiltrated/clotted, could not get to run. PCAD placed yesterday at [facility], fistulagram now with open access. This is [...] to auscultation bilaterally. Cardiovascular - Regular rate. Edema - Trace edema. Access - PCAD c/di/, AVF good t/b PD catheter site clean. about 2 inches away there is reducible hernia. Medication List Medication Sig Start Date aspirin 81 mg tablet,chewable Take 1 tablet by mouth once a day carvedilol 12.5 mg tablet Take 1/2 tablet [...] made. Treatment and Adequacy Assessment BUN mg/dL 70 (01/24/21) 42 (12/18/20) 52 (11/20/20) 53 (10/23/20) 51 (10/09/20) UREA NITROGEN (MG/DL) IN SER/PLAS - POST DIALYSIS mg/dL 30 (01/24/21) URR % 57 (01/24/21) spKt/V (Daugirdas II) 0.9700 (01/24/21) Dialysis is not adequate. Now with PCAD, will re-test adequacy Vascular Access Assessment Type of access: Fistulaand now PCAD, also PD catheter Anemia Assessment HEMOGLOBIN (G/DL) IN BLOOD g/dL 10.6 (01/24/21) 11.2 (12/18/20) 11.5 (11/20/20) 11.4 (10/23/20) 11.4 (09/18/20) PLATELETS 1000/mcL 217 (01/24/21) 255 (02/21/20) IRON SATURATION % 23 (01/24/21) 25 (12/18/20) 32 (11/20/20) 25 (10/23/20) 19 (09/18/20) FERRITIN ng/mL 486 (01/24/21) 592 (10/23/20) 228 (07/31/20) 292 (04/24/20) Hemoglobin is at goal. Iron Saturation is at goal. Ferritin is below goal. Will adjust FABIO and intravenous iron per protocol. Nutritional and Metabolic Assessment ALBUMIN (G/DL) g/dL 3.6 (01/24/21) 3.8 (12/18/20) 4.0 (11/20/20) 4.0 (10/23/20) 3.8 (09/18/20) Sodium mEq/L 127 (01/24/21) 137 (12/18/20) 137 (11/20/20) 130 (10/23/20) 137 (09/18/20) POTASSIUM (MMOL/L) IN SER/PLAS mEq/L 4.3 (01/24/21) 3.7 (12/18/20) 3.5 (11/20/20) 3.4 (10/23/20) 3.5 (09/18/20) BICARBONATE (CO2) mEq/L 20 (01/24/21) 24 (12/18/20) 24 (11/20/20) 22 (10/23/20) 22 (09/18/20) 25 OH VITAMIN D ng/mL 11.6 (04/24/20) Albumin is below goal. Encourage high-biological value protein intake. Potassium is at goal. Bicarbonate is at goal. Bone and Mineral Metabolism Assessment Calcium mg/dL 8.6 (01/24/21) 9.3 (12/18/20) 9.4 (11/20/20) 9.0 (10/23/20) 8.9 (09/18/20) CALCIUM (MG/DL) CORRECTED FOR ALBUMIN IN SER/PLAS mg/dL 8.9 (01/24/21) 9.5 (12/18/20) 9.4 (11/20/20) 9.0 (10/23/20) 9.1 (09/18/20) PHOSPHATE (MG/DL) IN SER/PLAS mg/dL 6.4 (01/24/21) 5.3 (12/18/20) 5.1 (11/20/20) 6.2 (10/23/20) 5.2 (10/09/20) CALCIUM PHOSPHORUS PRODUCT, COR 57 (01/24/21) 50 (12/18/20) 48 (11/20/20) 56 (10/23/20) 53 (09/18/20) IPTH pg/mL 600 (01/24/21) 493 (10/23/20) 401 (08/21/20) 429 (07/31/20) 460 (04/24/20) Corrected Calcium is at goal. Phosphorous is above goal. Intact PTH is above goal. Manager Primary Care will adjust binders and vitamin D per protocol and continue to provide dietary education. Cardiovascular Assessment Blood pressures reviewed and are acceptable. Estimated dry weight is appropriate. Transplant Status: Patient is on transplant list. Begum Resuscitation Status Will continue hemodialysis with current prescription, use AVF again next week with rest this week starting with 1 17g needle and advance as tolerated Will get her to surgeon for evaluation of hernia and repair, then back to PD if goes well. López Mariano MD [ Signed And locked electronically On 01/29/2021 at 12:48:56 PM ] Transcribed: López Mariano ( 01/29/2021 ) documented in this encounter Plan of Treatment Not on filedocumented as of this encounter Visit Diagnoses Not on filedocumented in this encounter
--- OUTSIDE RECORDS SUMMARY | 2021-12-28 14:08 | XMS_ITS | Encounter Summary ---
:1965 Author Organization [facility] Address [address] [place] [address] Care Team Providers Name Role Phone Unavailable Primary Care Provider Unavailable Encounter Details Date Type Department Care Team Description 01/29/2021 Orders Only [facility] López Awad MD [address] [place] [address] [place], [place] [phone] (Wo rk) Social History Tobacco Use Types Packs/Day Years Used Date Smoking Tobacco: Never Assessed Sex Assigned at Date Recorded Not on file documented as of this encounter Plan of Treatment Not on filedocumented as of this encounter Procedures Procedure Name Priority Date/Time Associated Diagnosis Comme nts HEMATOLOGY Routine 01/29/2021 Results for thi s procedure are in the resu lts section. CHEMISTRY Routine 01/29/2021 Results for thi s procedure are in the resu lts section. documented in this encounter Results (ABNORMAL) Spectrae Chemistry (01/29/2021) P athologist Signature PTH 778 (H) 16 - 80 APS SPECTRA pg/mL [facility] Specimen (Source) Anatomical Collection Method Collection Time Re ceived Time Location / / Volume Laterality 01/29/2021 01/30/2021 11:1 8 AM CDT Narrative APS SPECTRA [facility] - 01/30/2021 Unless otherwise specified, test(s) performed at: [facility], [address] [place] [id number] CHARGE MANAGER: Yoseph Rose M.D. For any questions, please call customer service at FREQUENCY:QUARTERLY Resulting Agency Comment Specimen source: Plasma López Mariano MD LAB BLOOD ORDERABLES Performing Organization Address City/State/ZIP Code Phon e Number APS SPECTRA [facility] (ABNORMAL) HEMATOLOGY (01/29/2021) [facility] Method Time Signature WBC 5.75 4.80 - APS SPECTRA 10.80 [facility] 1000/mcL RBC 2.95 (L) 4.20 - APS SPECTRA 5.40 [facility] mill/mcL Hemoglobin 9.9 (L) 12.0 - APS SPECTRA 16.0 g/dL [facility] Hemoglobin x 3 29.7 (L) 36.0 - APS SPECTRA 48.0 % [facility] Hematocrit 29.4 (L) 37.0 - APS SPECTRA 47.0 % [facility] MCV 100 80 - 100 APS SPECTRA fl [facility] MCH 33.4 (H) 27.0 - APS SPECTRA 31.0 pg [facility] MCHC 33.5 30.0 - APS SPECTRA 36.0 g/dL [facility] RDW 13.3 11.5 - APS SPECTRA 14.5 % [facility] Neutrophils 81.1 (H) 40.0 - APS SPECTRA 75.0 % [facility] Lymphocytes 9.5 (L) 19.0 - APS SPECTRA Relative 48.0 % [facility] Monocytes 4.1 3.0 - 10.0 APS SPECTRA % [facility] Eosinophils 2.3 0.0 - 7.0 APS SPECTRA Relative % [facility] Basophils 1.9 (H) 0.0 - 1.5 APS SPECTRA Relative % [facility] JESSICA 1.1 0.0 - 4.0 APS SPECTRA % [facility] Specimen (Source) Anatomical Collection Method Collection Time Re ceived Time Location / / Volume Laterality 01/29/2021 01/30/2021 11:3 2 AM CDT Narrative APS SPECTRA [facility] - 01/30/2021 Unless otherwise specified, test(s) performed at: [facility], [address] [place] [id number] CHARGE MANAGER: Yoseph Rose M.D. For any questions, please call customer service at FREQUENCY:QUARTERLY Resulting Agency Comment Specimen source: Blood López Mariano MD LAB BLOOD ORDERABLES Performing Organization Address City/State/ZIP Code Phon e Number APS SPECTRA [facility] documented in this encounter Visit Diagnoses Not on filedocumented in this encounter
--- OUTSIDE RECORDS SUMMARY | 2021-12-28 14:08 | XMS_ITS | Encounter Summary ---
:1965 Author Organization [facility] Address [address] [place] [address] Care Team Providers Name Role Phone Unavailable Primary Care Provider Unavailable Encounter Details Date Type Department Care Team Description 01/24/2021 Orders Only [facility] O f López Awad MD [address] [place] [address] [place], [place] [phone] (Wo rk) Social History Tobacco Use Types Packs/Day Years Used Date Smoking Tobacco: Never Assessed Sex Assigned at Date Recorded Not on file documented as of this encounter Plan of Treatment Not on filedocumented as of this encounter Procedures Procedure Name Priority Date/Time Associated Diagnosis Comme nts HD KINETICS Routine 01/24/2021 Results for thi s procedure are i n the results section . SPECIAL CHEMISTRY Routine 01/24/2021 Results fo r this procedure are i n the results section . POST CHEMISTRY Routine 01/24/2021 Results for t his procedure are i n the results section . TRACE ELEMENTS Routine 01/24/2021 Results for t his procedure are i n the results section . HEMATOLOGY Routine 01/24/2021 Results for thi s procedure are i n the results section . CHEMISTRY Routine 01/24/2021 Results for thi s procedure are i n the results section . CHEMISTRY Routine 01/24/2021 Results for thi s procedure are i n the results section . SPECTRA [place] LAB RESULTS Routine 01/24/2021 Resul ts for this procedure are i n the results section . documented in this encounter Results Spectra [place] Lab Results (01/24/2021) athologist Signature spKt/V 0.97 [place] (Daugirdas II) eKt/V 0.81 [place] ([place]) Specimen (Source) Anatomical Location Collection Method / Collectio n Time Received Time / Laterality Volume 01/24/2021 01/24/2021 [place] Ordering Provider LAB BLOOD ORDERABLES Performing Organization Address City/[facility]/ZIP Code Phon e Number [place] (ABNORMAL) HD KINETICS (01/24/2021) P athologist Signature % Urea 57 (L) 65 - 80 % APS SPECTRA Reduction [facility] Specimen (Source) Anatomical Collection Method Collection Time Re ceived Time Location / / Volume Laterality 01/24/2021 01/25/2021 3:0 9 PM CDT Resulting Agency Comment Specimen source: Plasma López Mariano MD LAB BLOOD ORDERABLES Performing Organization Address City/[facility] Phon e Number APS SPECTRA [facility] (ABNORMAL) POST CHEMISTRY (01/24/2021) P athologist Signature BUN Post 30 (H) 6 - 19 APS SPECTRA Dialysis mg/dL [facility] Specimen (Source) Anatomical Collection Method Collection Time Re ceived Time Location / / Volume Laterality 01/24/2021 01/25/2021 3:08 PM CDT Narrative APS SPECTRA [facility] - 01/25/2021 Unless otherwise specified, test(s) performed at: [facility], [address] [place] [id number] BUTTER WRAPPER: Yoseph Rose M.D. For any questions, please call customer service at FREQUENCY:MONTHLY Resulting Agency Comment Specimen source: Plasma López Mariano MD LAB BLOOD ORDERABLES Performing Organization Address City/[facility] Phon e Number APS SPECTRA [facility] (ABNORMAL) SPECIAL CHEMISTRY (01/24/2021) P athologist Signature Vitamin D, 7.2 (L) 19.9 - APS SPECTRA 1,25-Dihydroxy 79.3 pg/mL [facility] Specimen (Source) Anatomical Collection Method Collection Time Re ceived Time Location / / Volume Laterality 01/24/2021 01/25/2021 12:3 1 PM CDT Narrative APS SPECTRA [facility] - 01/25/2021 Unless otherwise specified, test(s) performed at: [facility], [address] [place] [id number] BUTTER WRAPPER: Yoseph Rose M.D. For any questions, please call customer service at FREQUENCY:MONTHLY Resulting Agency Comment Specimen source: Serum López Mariano MD LAB BLOOD BANK TEST ORDERABL ES Performing Organization Address [facility] Phon e Number APS SPECTRA [facility] TRACE ELEMENTS (01/24/2021) P athologist Signature Aluminum <5 0 - 10 APS SPECTRA mcg/L [facility] Comment: This test was developed and its performa nce characteristics determined by [facility]. It has not been cleared or approved by the FDA. The laboratory is regulated under CLIA a s qualified to perform high complexity testing. This test is used fo r clinical purposes. It should not be regarded as investigational or fo r research. Specimen (Source) Anatomical Collection Method Collection Time Re ceived Time Location / / Volume Laterality 01/24/2021 01/25/2021 11:5 4 AM CDT Narrative APS SPECTRA [facility] - 01/25/2021 Unless otherwise specified, test(s) performed at: [facility], [address] [place] [address] BUTTER WRAPPER: Yoseph Rose M.D. For any questions, please call customer service at FREQUENCY:MONTHLY Resulting Agency Comment Specimen source: Serum López Mariano MD LAB BLOOD ORDERABLES Performing Organization Address [facility] Phon e Number APS SPECTRA [facility] (ABNORMAL) Spectrae Chemistry (01/24/2021) P athologist Signature PTH 600 (H) 16 - 80 APS SPECTRA pg/mL [facility] Specimen (Source) Anatomical Collection Method Collection Time Re ceived Time Location / / Volume Laterality 01/24/2021 01/25/2021 12:0 7 PM CDT Narrative APS SPECTRA [facility] - 01/25/2021 Unless otherwise specified, test(s) performed at: [facility], [address] [place] [id number] BUTTER WRAPPER: Yoseph Rose M.D. For any questions, please call customer service at FREQUENCY:MONTHLY Resulting Agency Comment Specimen source: Plasma López Mariano MD LAB BLOOD ORDERABLES Performing Organization Address City/State/ZIP Code Phon e Number APS SPECTRA [facility] (ABNORMAL) Spectrae Chemistry (01/24/2021) [facility] Method Time Signature BUN 70 (H) 6 - 19 APS SPECTRA mg/dL [facility] Creatinine 14.12 (H) 0.60 - APS SPECTRA 1.30 [facility] mg/dL BUN/Creatinine 5.0 (L) 10.0 - APS SPECTRA Ratio 20.0 [facility] Sodium 127 (L) 136 - 145 APS SPECTRA mEq/L [facility] Potassium 4.3 3.5 - 5.1 APS SPECTRA mEq/L [facility] Chloride 90 (L) 96 - 108 APS SPECTRA mEq/L [facility] Bicarbonate 20 (L) 22 - 29 APS SPECTRA (CO2) mEq/L [facility] Calcium 8.6 8.4 - APS SPECTRA 10.2 [facility] mg/dL Corrected 8.9 8.4 - APS SPECTRA Calcium 10.2 [facility] mg/dL Comment: Corrected Calcium is not equivalent to m easured Ionized Calcium. Phosphorus 6.4 (H) 2.6 - 4.5 mg/dL APS SPECTRA [facility] Calcium Phosphorus Product 55 (H) 0 - 54 APS SPECTRA [facility] Calcium Phosporus Product, Cor 57 (H) 0 - 54 APS SPECTRA [facility] Alkaline Phosphatase 66 35 - 104 U/L APS SP ECTRA [facility] Total Protein 6.2 6.0 - 8.5 g/dL APS SPECTRA [facility] Albumin 3.6 3.5 - 5.2 g/dL APS SPECTRA [facility] Globulin, Total 2.6 2.0 - 4.0 g/dL APS SPECT RA [facility] A/G Ratio 1.4 1.0 - 2.0 APS SPECTRA [facility] Magnesium 2.1 1.6 - 2.6 mg/dL APS SPECTRA [place] [facility] Ferritin 486 (H) 10 - 291 ng/mL APS SPECTRA [facility] [place] Iron 60 30 - 160 mcg/dL APS SPECTRA [place] [facility] UIBC 201 155 - 355 mcg/dL APS SPECTRA [facility] TIBC 261 185 - 515 mcg/dL APS SPECTRA [facility] Iron Saturation (TSat) 23 20 - 55 % APS SPE CTRA [facility] Specimen (Source) Anatomical Collection Method Collection Time Re ceived Time Location / / Volume Laterality 01/24/2021 01/25/2021 12:3 1 PM CDT Narrative APS SPECTRA [facility] - 01/25/2021 Unless otherwise specified, test(s) performed at: [facility], [address] [place] [id number] BUTTER WRAPPER: Yoseph Rose M.D. For any questions, please call customer service at FREQUENCY:MONTHLY Resulting Agency Comment Specimen source: Serum López Mariano MD LAB BLOOD ORDERABLES Performing Organization Address City/State/ZIP Code Phon e Number APS SPECTRA [facility] (ABNORMAL) HEMATOLOGY (01/24/2021) [facility] gist Method Time Signature WBC 8.65 4.80 - APS SPECTRA 10.80 [facility] 1000/mcL RBC 3.10 (L) 4.20 - APS SPECTRA 5.40 [facility] mill/mcL Hemoglobin 10.6 (L) 12.0 - APS SPECTRA 16.0 g/dL [facility] Hemoglobin x 3 31.8 (L) 36.0 - APS SPECTRA 48.0 % [facility] Hematocrit 30.3 (L) 37.0 - APS SPECTRA 47.0 % [facility] MCV 98 80 - 100 APS SPECTRA fl [facility] MCH 34.2 (H) 27.0 - APS SPECTRA 31.0 pg [facility] MCHC 35.0 30.0 - APS SPECTRA 36.0 g/dL [facility] RDW 13.6 11.5 - APS SPECTRA 14.5 % [facility] Neutrophils 83.4 (H) 40.0 - APS SPECTRA 75.0 % [facility] Lymphocytes 9.3 (L) 19.0 - APS SPECTRA Relative 48.0 % [facility] Monocytes 3.6 3.0 - 10.0 APS SPECTRA % [facility] Eosinophils 1.8 0.0 - 7.0 APS SPECTRA Relative % [facility] Basophils 0.6 0.0 - 1.5 APS SPECTRA Relative % [facility] JESSICA 1.3 0.0 - 4.0 APS SPECTRA % [facility] Platelets 217 130 - 400 APS SPECTRA 1000/mcL [facility] Specimen (Source) Anatomical Collection Method Collection Time Re ceived Time Location / / Volume Laterality 01/24/2021 01/25/2021 11:5 2 AM CDT Narrative APS SPECTRA [facility] - 01/25/2021 Unless otherwise specified, test(s) performed at: [facility], [address] [place], [place] [id number] BUTTER WRAPPER: Yoseph Rose M.D. For any questions, please call customer service at FREQUENCY:MONTHLY Resulting Agency Comment Specimen source: Blood López Mariano MD LAB BLOOD ORDERABLES Performing Organization Address City/State/ZIP Code Phon e Number APS EasyPaint [facility] documented in this encounter Visit Diagnoses Not on filedocumented in this encounter
--- OUTSIDE RECORDS SUMMARY | 2021-12-28 14:08 | XMS_ITS | Encounter Summary ---
:1965 Author Organization [facility] Address [address] [place] [address] Care Team Providers Name Role Phone Unavailable Primary Care Provider Unavailable Encounter Details Date Type Department Care Team Description 02/19/2021 Treatment [facility] O f López Awad MD [address] [place], [place] [phone] (Wo rk) Social History Tobacco Use Types Packs/Day Years Used Date Smoking Tobacco: Never Assessed Sex Assigned at Date Recorded Not on file documented as of this encounter Miscellaneous Notes Dialysis Note - López Mariano MD - 02/19/2021 12:33 PM CDT Date: Feb 19, 2021 Patient Name: Stephanie Norman : 1965 Chart #: [id number] Sex: F This patient was personally seen for a complete visit as part of routine monthly dialysis care. A review of the dialysis treatment, blood pressure, estimated dry weight and recent lab values was made. These were discussed with the patient and staff as necessary. Treatment Data for 02/19/2021 started at:11:46 AM Dialyzer: 160NRe Optiflux Na: 137 mEq/L Bicarb: 37 mEq/L Dialysate: 3.0 K, 2.25 Ca, 1.0 Mg, 100 Dextrose (G3231) Dialysate/Machine Temp (prescribed): 37 C Dialysate/Machine Temp (actual): 37 C BFR (prescribed): 250 BFR (actual): n/a Prescribed time: 03:00 EDW: 97 kg Access Type: Active (In Use):PDCatheter-Double Cuff Coiled/Left Lower Quadrant,CVCatheter-Tunneled/Chest Pre Dialysis Vitals (for 02/19/2021 11:35 AM ) Pre BP (sit): 147/80 Pre Wt: 97.9 kg Temp: 96.6 F Post Dialysis Vitals (for 02/17/2021 2:54 PM ) Post BP (sit): 111/59 Post Wt: 96.8 kg Chairside data as of 02/19/2021 11:35 AM Last 3 Treatments 02/17/2021 02/14/2021 02/12/2021 EDW (kg) 97 97 97 Weight Pre (kg) 98.5 98.8 99 Weight Post (kg) 96.8 96.8 96.8 Dialytic Weight Loss (kg) -1.7 -2 -2.2 EDW Deviation (kg) -0.2 -0.2 -0.2 BP Sit Pre 130/64 134/65 125/66 BP Sit Post 111/59 107/38 104/54 UF Rate (mL/kg/hr) 6 7 8 Prescribed BFR 250 250 250 Average Delivered BFR 250 270 250 Prescribed Treatment Time 03:00 03:00 03:00 Actual Treatment Time 03:01 03:03 03:01 Treatment Medication Orders Medication Sig Start Date End Date Heparin Sodium (Porcine) 1,000 Units/mL Catheter Lock Arterial 2000 units Arterial Red Port Every Treatment 01/29/2021 01/28/2022 Heparin Sodium (Porcine) 1,000 Units/mL Catheter Lock Venous 2100 units Venous Blue Port Every Treatment 01/29/2021 01/28/2022 Heparin Sodium (Porcine) 1,000 Units/mL Systemic 1000 units IVP Every Treatment 02/12/2021 02/11/2022 Heparin Sodium (Porcine) 1,000 Units/mL Systemic 2000 units IVP Every Treatment 01/24/2021 01/23/2022 Iron Sucrose (Venofer) 100 mg IVP Every Treatment 01/31/2021 02/21/2021 KETTLE SKIMMER: López Mariano MD LOCATION: [facility] [phone] SCHEDULE: M-W-F 2nd Shift EDW: kg. DIALYZER: HD DURATION: NEEDLE SIZE: ANTICOAG: BATH: QB: ml/min QD: ml/min Subjective 02/19/21: No new symptoms, she feels excellent. 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 Access now working well, day with 2 needles and to advance needles on Wednesday. 02/12/21: She saw gen surgery at [facility], sending her up to [place] to see Dr. Hudson given PKD and future tx and nuiqsut nephrectomies possible. She is liking HD, thinks [...] get to run. [place] [facility] [place] fistulagram [...] Edema - No leg edema. Access - PCAD c/di/, AVF good [...] made. Treatment and Adequacy Assessment BUN mg/dL 48 (01/31/21) 70 (01/24/21) 42 (12/18/20) 52 (11/20/20) 53 (10/23/20) UREA NITROGEN (MG/DL) IN SER/PLAS - POST DIALYSIS mg/dL 18 (01/31/21) 30 (01/24/21) URR % 63 (01/31/21) 57 (01/24/21) spKt/V Gotch 1.25 (01/31/21) eKdrt/V 1.23 (01/31/21) spKt/V (Daugirdas II) 1.1500 (01/31/21) 0.9700 (01/24/21) Dialysis is not adequate. Keep time 3hrs for now, increase needles to 16g, increase to 180 dialyzer. Repeat kt/v next week with these changes. Discussed with her, may need 3.5hrs. Vascular Access Assessment Type of access: Fistulaand now PCAD, also PD catheter Fistulagram 12/2020 patent and no stenosis. Working well now with 17g needles, advance 02/21 Anemia Assessment HEMOGLOBIN (G/DL) IN BLOOD g/dL 9.9 (01/29/21) 10.6 (01/24/21) 11.2 (12/18/20) 11.5 (11/20/20) 11.4 (10/23/20) PLATELETS 1000/mcL 217 (01/24/21) 255 (02/21/20) IRON SATURATION % 23 (01/24/21) 25 (12/18/20) 32 (11/20/20) 25 (10/23/20) 19 (09/18/20) FERRITIN ng/mL 486 (01/24/21) 592 (10/23/20) 228 (07/31/20) 292 (04/24/20) Hemoglobin is below goal. Iron Saturation is at goal. Ferritin [...] (11/20/20) 56 (10/23/20) 53 (09/18/20) IPTH pg/mL 778 (01/29/21) 600 (01/24/21) 493 (10/23/20) 401 (08/21/20) 429 (07/31/20) Corrected Calcium is at goal. Phosphorous is above goal. Intact PTH is above goal. Gamma Ray Operator will adjust binders and vitamin D per protocol and continue to provide dietary education. REpeat labs today, adjust if still not controlled but note not yet adequate on HD yet either using 17g needles Cardiovascular Assessment Blood pressures reviewed and are acceptable. Intradialytic weight gains are appropriate. Estimated dry weight is appropriate. Transplant Status: Patient is on transplant list. Begum Resuscitation Status No change to prescription beside needle size 180 dailyzer Kt/v next week Monthly labs today López Mariano MD [ Signed And locked electronically On 02/19/2021 at 12:36:45 PM ] Transcribed: López Mariano ( 02/19/2021 ) documented in this encounter Plan of Treatment Not on filedocumented as of this encounter Visit Diagnoses Not on filedocumented in this encounter
--- OUTSIDE RECORDS SUMMARY | 2021-12-28 14:08 | XMS_ITS | Encounter Summary ---
:1965 Author Organization [facility] Address [address] [place] [address] Care Team Providers Name Role Phone Unavailable Primary Care Provider Unavailable Encounter Details Date Type Department Care Team Description 12/18/2020 Treatment [facility] López Awad MD [address] [place], [place] [phone] (Wo rk) Social History Tobacco Use Types Packs/Day Years Used Date Smoking Tobacco: Never Assessed Sex Assigned at Date Recorded Not on file documented as of this encounter Miscellaneous Notes Dialysis Note - López Mariano MD - 12/18/2020 9:55 AM CDT Date: Dec 18, 2020 Patient Name: Stephanie Norman : 1965 Chart #: [id number] Sex: F This patient was personally seen for a complete visit as part of routine monthly dialysis care. A review of the dialysis treatment, blood pressure, estimated dry weight, and recent lab values was made.These were discussed with the patient and staff as necessary. CHIEF ENTERPRISE ARCHITECT: López Mariano MD LOCATION: [phone] SCHEDULE: No Routine Schedule Subjective Tolerating dialysis well. 12/18/20: She is overall doing well with excellent BP, good compliance with PD, at her dry weight, andcontinues to work and manage kids at home. However, last couple weeks she has started to have mild nausea in the morning and with eating and feeling more fatigued. Adequacy being done today, only 300 mL of urine output in 24hrs now, concern about uremia as adequacy was borderline last time completed. She otherwise feels well with no vomiting, abd pain, diarrhea, constipation, etc. PD fluid clear and no symptoms of infection. She says this is her last pack of cigs. 11/20/20: Stephanie is overall doing well. Wt is down 1 lb from prior EDW. She has no edema or SOB. No problems with CCPD treatments, good compliance, using all 2.5% bags. 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 10/23/20: Adequacy was low, residual function is lower, we increased prescription with last fill 1L and she is tolerating this ok but says she can feel it and would not want to increase it further for daytime dwell. 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 04/24: Stephanie is doing great. She is tolerating increased [...] he is home. 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 Treatment and Adequacy Assessment BUN mg/dL 52 (11/20/20) 53 (10/23/20) 51 (10/09/20) CREATININE (MG/DL) IN SER/PLAS mg/dL 9.07 (11/20/20) 8.32 (10/23/20) 8.50 (10/09/20) KT/V, PERITONEAL L/wk 1.57 (10/23/20) 1.38 (10/09/20) 1.06 (09/18/20) KT/V, RESIDUAL L/wk 0.24 (10/23/20) 0.31 (10/09/20) 0.46 (09/18/20) Kt/V is adequate. Continue current prescription. Residual function lower, increased prescription with last fill of 1L added for clearance previously.Now ?uremia symptoms, only 300 mL UOP, adequacy pending but I anticipate will need to change prescription given symptoms and low UOP. We discussed and I think changing to cycle based treatments to ensure 2hr dwell time, doing 3 exchanges at night with this at 2.5L, and adding 2L last fill with 2L mid day exchange will be a good change that will increase adequacy nicely if she can tolerate having 2L in all day Peritoneal Dialysis Access Assessment Placed on: 01/2019 Surgeon - Dr. Martinez at [facility] Staff and patient report access is working [...] Anemia Assessment HEMOGLOBIN (G/DL) IN BLOOD g/dL 11.5 (11/20/20) 11.4 (10/23/20) 11.4 (09/18/20) PLATELETS 1000/mcL 255 (02/21/20) WBC (BLOOD) 1000/mcL 7.70 (11/20/20) 8.07 (10/23/20) 7.52 (09/18/20) IRON SATURATION % 32 (11/20/20) 25 (10/23/20) 19 (09/18/20) FERRITIN ng/mL 592 (10/23/20) 228 (07/31/20) 292 (04/24/20) Hemoglobin is at goal. Iron Saturation is at goal. Ferritin is at goal. Will adjust FABIO and intravenous iron. Not on FABIO, had IV iron previously and re-check labs today Nutritional and Metabolic Assessment ALBUMIN (G/DL) g/dL 4.0 (11/20/20) 4.0 (10/23/20) 3.8 (09/18/20) BICARBONATE (CO2) mEq/L 24 (11/20/20) 22 (10/23/20) 22 (09/18/20) POTASSIUM (MMOL/L) IN SER/PLAS mEq/L 3.5 (11/20/20) 3.4 (10/23/20) 3.5 (09/18/20) Sodium mEq/L 137 (11/20/20) 130 (10/23/20) 137 (09/18/20) 25 OH VITAMIN D ng/mL 11.6 (04/24/20) 19.9 (04/21/19) 25.6 (02/20/19) Albumin is at goal. Encourage high biological value protein intake. Potassium is at goal. Bone and Mineral Metabolism Assessment Calcium mg/dL 9.4 (11/20/20) 9.0 (10/23/20) 8.9 (09/18/20) CALCIUM (MG/DL) CORRECTED FOR ALBUMIN IN SER/PLAS mg/dL 9.4 (11/20/20) 9.0 (10/23/20) 9.1 (09/18/20) CALCIUM PHOSPHORUS PRODUCT, COR 48 (11/20/20) 56 (10/23/20) 53 (09/18/20) PHOSPHATE (MG/DL) IN SER/PLAS mg/dL 5.1 (11/20/20) 6.2 (10/23/20) 5.2 (10/09/20) IPTH pg/mL 493 (10/23/20) 401 (08/21/20) 429 (07/31/20) Corrected calcium is at goal. Phosphorus is at goal. Intact PTH is at goal. Mostly good compliance with Renvela, but she forgets to bring it with her at times and she missed a few days recently as she was at her sisters Cardiovascular Assessment Blood pressure reviewed and is acceptable. Continue same cardiovascular medications. Estimated dry weight is appropriate. Transplant Status Patient has been referred. [place] - [facility] Switched to [facility], wasn't happy with [facility] and recommendations from cardiology after her angiogram. [place] Dr. Amanda at [facility] and no intervention required, changed to Lipitor from Simvastatin and recommended smoking cessation (which I strongly recommend as well). She had negative stress test in November2020. Needs dental clearance, then may be listed. She says she is quitting smoking after current pack. Resuscitation Status Additional Comments: Stop felodipine as BP controlled without last several days Change prescription as above pending adequacy is on low side as expected López Mariano MD [ Signed And locked electronically On 12/18/2020 at 10:01:26 AM ] Transcribed: López Mariano ( 12/18/2020 ) documented in this encounter Plan of Treatment Not on filedocumented as of this encounter Visit Diagnoses Not on filedocumented in this encounter
--- OUTSIDE RECORDS SUMMARY | 2021-12-28 14:08 | XMS_ITS | Encounter Summary ---
:1965 Author Organization [facility] Address [address] [place] [address] Care Team Providers Name Role Phone Unavailable Primary Care Provider Unavailable Encounter Details Date Type Department Care Team Description 08/21/2020 Orders Only [facility] López Awad MD [address] [place] [address] [place], [place] [phone] (Wo rk) Social History Tobacco Use Types Packs/Day Years Used Date Smoking Tobacco: Never Assessed Sex Assigned at Date Recorded Not on file documented as of this encounter Plan of Treatment Not on filedocumented as of this encounter Procedures Procedure Name Priority Date/Time Associated Diagnosis Comme nts HEMATOLOGY Routine 08/21/2020 Results for thi s procedure are in the resu lts section. CHEMISTRY Routine 08/21/2020 Results for thi s procedure are in the resu lts section. CHEMISTRY Routine 08/21/2020 Results for thi s procedure are in the resu lts section. documented in this encounter Results (ABNORMAL) Spectrae Chemistry (08/21/2020) [facility] Method Time Signature BUN 46 (H) 6 - 19 APS SPECTRA mg/dL [facility] Creatinine 6.71 (H) 0.60 - A[facility]RA 1.30 mg/dL [facility] BUN/Creatinine 6.9 (L) 10.0 - [facility] Ratio 20.0 [facility] Sodium 140 136 - 145 [facility] mEq/L [facility] Potassium 3.9 3.5 - 5.1 [facility] mEq/L [facility] Chloride 100 96 - 108 [facility] mEq/L [facility] Bicarbonate 28 22 - 29 A[facility] (CO2) mEq/L [facility] Calcium 8.8 8.4 - 10.2 [facility] mg/dL [facility] Corrected 9.0 8.4 - 10.2 APS [facility]PECT[facility] Calcium mg/dL [facility] Comment: Corrected Calcium is not equivalent to m easured Ionized Calcium. Phosphorus 5.7 (H) 2.6 - 4.5 mg/dL APS SPECTRA K [facility] Calcium Phosphorus Product 50 0 - 54 APS SPECTRA [facility] Calcium Phosporus Product, Cor 51 0 - 54 [facility]PS SPECTRA [facility] Albumin 3.8 3.5 - 5.2 g/dL [facility] S[facility] [place] Iron 47 30 - 160 mcg/dL APS SPECTRA [place] MMN UIBC 237 155 - 355 mcg/dL APS SPECTRA K [facility] TIBC 284 185 - 515 mcg/dL APS SPECTRA K [facility] Iron Saturation (TSat) 17 (L) 20 - 55 % APS SPE CTRA [facility] Specimen (Source) Anatomical Collection Method Collection Time Re ceived Time Location / / Volume Laterality 08/21/2020 08/22/2020 4:57 PM CDT Narrative [facility]PS SPECT[facility] - 08/22/2020 Unless otherwise specified, test(s) performed at: [facility], [address] [place] [address] CROSSING GATEMAN: Yoseph Rose M.D. For any questions, please call customer service at FREQUENCY:MONTHLY Resulting Agency Comment Specimen source: Serum López Mariano MD LAB BLOOD ORDERABLES Performing Organization Address City/State/ZIP Code Phon e Number APS SPECTRA [facility] (ABNORMAL) Spectrae Chemistry (08/21/2020) P athologist Signature PTH 401 (H) 16 - 80 A[facility] pg/mL [facility] Specimen (Source) Anatomical Collection Method Collection Time Re ceived Time Location / / Volume Laterality 08/21/2020 08/22/2020 2:49 PM CDT Narrative [facility] - 08/22/2020 Unless otherwise specified, test(s) performed at: [facility], [address] [place] [address] CROSSING GATEMAN: Yoseph Rose M.D. For any questions, please call customer service at FREQUENCY:MONTHLY Resulting Agency Comment Specimen source: Plasma López Mariano MD LAB BLOOD ORDERABLES Performing Organization Address City/State/ZIP Code Phon e Number [facility] (ABNORMAL) HEMATOLOGY (08/21/2020) [facility] Method Time Signature WBC 6.48 4.80 - [facility] 10.80 [facility] 1000/mcL RBC 3.26 (L) 4.20 - [facility] 5.40 [facility] mill/mcL Hemoglobin 10.5 (L) 12.0 - [facility] 16.0 g/dL [facility] Hemoglobin x 3 31.5 (L) 36.0 - [facility] 48.0 % [facility] Hematocrit 32.1 (L) 37.0 - [facility] 47.0 % [facility] MCV 98 80 - 100 [facility] fl [facility] MCH 32.2 (H) 27.0 - [facility] 31.0 pg [facility] MCHC 32.7 30.0 - [facility] 36.0 g/dL [facility] RDW 13.5 11.5 - [facility] 14.5 % [facility] Neutrophils 75.5 (H) 40.0 - [facility] 75.0 % [facility] Lymphocytes 15.0 (L) 19.0 - [facility] Relative 48.0 % [facility] Monocytes 4.4 3.0 - 10.0 APS [facility] % [facility] Eosinophils 3.0 0.0 - 7.0 [facility] Relative % [facility] Basophils 1.3 0.0 - 1.5 APS [facility] Relative % [facility] JESSICA 0.8 0.0 - 4.0 APS SPECTRA % [facility] Specimen (Source) Anatomical Collection Method Collection Time Re ceived Time Location / / Volume Laterality 08/21/2020 08/22/2020 2:49 PM CDT Narrative [facility] - 08/22/2020 Unless otherwise specified, test(s) performed at: [facility], [address] [place] [id number] CROSSING GATEMAN: Yoseph Rose M.D. For any questions, please call customer service at FREQUENCY:MONTHLY Resulting Agency Comment Specimen source: Blood López Mariano MD LAB BLOOD ORDERABLES Performing Organization Address City/State/ZIP Code Phon e Number [facility] documented in this encounter Visit Diagnoses Not on filedocumented in this encounter
--- OUTSIDE RECORDS SUMMARY | 2021-12-28 14:08 | XMS_ITS | Encounter Summary ---
:1965 Author Organization [facility] Address [address] [place] [address] Care Team Providers Name Role Phone Unavailable Primary Care Provider Unavailable Encounter Details Date Type Department Care Team Description 08/21/2020 Treatment [facility] López Awad MD [address] [place], [place] [phone] (Wo rk) Social History Tobacco Use Types Packs/Day Years Used Date Smoking Tobacco: Never Assessed Sex Assigned at Date Recorded Not on file documented as of this encounter Miscellaneous Notes Dialysis Note - López Mariano MD - 08/21/2020 10:28 AM CDT Date: August 21, 2020 Patient Name: Stephanie Norman : 1965 Chart #: [id number] Sex: F This patient was personally seen for a complete visit as part of routine monthly dialysis care. A review of the dialysis treatment, blood pressure, estimated dry weight, and recent lab values was made.These were discussed with the patient and staff as necessary. COLLECTIONS AGENT: López Mariano MD LOCATION: [phone] SCHEDULE: No Routine Schedule Subjective Tolerating dialysis well. 08/31/20: she is doing fantastic. She feels [...] he is home. 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 Stephanie is doing great, feels wonderful, [...] Normal bowel sounds, soft, non-tender. Edema - Trace edema. unchanged PD catheter exit site - exit site clean with no sign of infection per broom stitcher List Medication Sig Start Date aspirin 81 mg tablet,chewable Take 1 tablet by mouth once a day carvedilol 25 mg tablet Take 1/2 tablet by mouth twice a day citalopram 40 mg tablet Take 1 tablet by mouth once a day as directed. Celexa - Take in the evening. felodipine 10 mg tablet extended release 24 hr Take 1 tablet by mouth twice a day gentamicin 0.1% cream Apply a [...] made. Treatment and Adequacy Assessment BUN mg/dL 45 (07/31/20) 41 (07/09/20) 41 (06/26/20) CREATININE (MG/DL) IN SER/PLAS mg/dL 6.52 (07/31/20) 5.78 (07/09/20) 5.92 (06/26/20) KT/V, PERITONEAL L/wk 1.01 (07/09/20) 1.01 (04/03/20) 0.89 (01/24/20) KT/V, RESIDUAL L/wk 0.82 (07/09/20) 1.58 (04/03/20) 1.01 (01/24/20) Kt/V is adequate. Continue current prescription. Adequacy to be repeated in September Increased PD prescription and residual also increased in 03/2020 compared to 01/2020 and now robust combined kt/v. Due for repeat adequacy, will complete this month (she forgot to do PD bags today but did 24hr urine, but will need to repeat on same day) Peritoneal Dialysis Access Assessment Placed on: 01/2019 [...] Assessment HEMOGLOBIN (G/DL) IN BLOOD g/dL 10.8 (07/31/20) 11.4 (07/09/20) 10.7 (06/26/20) PLATELETS 1000/mcL 255 (02/21/20) WBC (BLOOD) 1000/mcL 7.10 (07/31/20) 7.22 (06/26/20) 6.81 (05/22/20) IRON SATURATION % 15 (07/31/20) 15 (06/26/20) 17 (05/22/20) FERRITIN ng/mL 228 (07/31/20) 292 (04/24/20) 232 (01/24/20) Hemoglobin is at goal. Iron Saturation is below goal. Ferritin is below goal. Will adjust FABIO and intravenous iron. Not on FABIO, getting IV iron Nutritional and Metabolic Assessment ALBUMIN (G/DL) g/dL 3.9 (07/31/20) 3.6 (06/26/20) 4.0 (05/22/20) BICARBONATE (CO2) mEq/L 27 (07/31/20) 29 (06/26/20) 26 (05/22/20) POTASSIUM (MMOL/L) IN SER/PLAS mEq/L 3.8 (07/31/20) 3.7 (06/26/20) 3.7 (05/22/20) Sodium mEq/L 140 (07/31/20) 142 (06/26/20) 138 (05/22/20) 25 OH VITAMIN D ng/mL 11.6 (04/24/20) 19.9 (04/21/19) 25.6 (02/20/19) Albumin is below goal. Encourage high biological value protein intake. Potassium is at goal. Bone and Mineral Metabolism Assessment Calcium mg/dL 9.0 (07/31/20) 8.5 (06/26/20) 8.8 (05/22/20) CALCIUM (MG/DL) CORRECTED FOR ALBUMIN IN SER/PLAS mg/dL 9.1 (07/31/20) 8.8 (06/26/20) 8.8 (05/22/20) CALCIUM PHOSPHORUS PRODUCT, COR 50 (07/31/20) 37 (06/26/20) 48 (05/22/20) PHOSPHATE (MG/DL) IN SER/PLAS mg/dL 5.5 (07/31/20) 4.2 (06/26/20) 5.4 (05/22/20) IPTH pg/mL 429 (07/31/20) 460 (04/24/20) 482 (01/24/20) Corrected calcium is at goal. Phosphorus is at goal. Intact PTH is at goal. 100% compliance with binders now and improved phos control Cardiovascular Assessment Blood pressure reviewed and is acceptable. Continue same cardiovascular medications. Estimated dry weight is appropriate. Transplant Status Patient has been referred. [place] [facility] [place] She wants to switch to [facility], wasn't happy with [facility] and recommendations from cardiology after her angiogram. She saw Dr. Patel at [facility] and no intervention required, changed to Lipitor from Simvastatin and recommended smoking cessation (which I strongly recommend as well). Insurance apparently requires [place] for [place] transplant program and she will inquire further and see if they can send me paperwork regarding this. She has now reached out and in process of changing programs. She quit smoking August 17! Resuscitation Status Additional Comments: No changes to prescription today, no change in medications, CCPD going very well Labs drawn today Quit smoking August 17, encouraged ongoing efforts to stay off 100%! Adequacy next month López Mariano MD [ Signed And locked electronically On 08/21/2020 at 10:32:25 AM ] Transcribed: López Mariano ( 08/21/2020 ) documented in this encounter Plan of Treatment Not on filedocumented as of this encounter Visit Diagnoses Not on filedocumented in this encounter
--- OUTSIDE RECORDS SUMMARY | 2021-12-28 14:08 | XMS_ITS | Encounter Summary ---
:1965 Author Organization [facility] Address [address] [place] [address] Care Team Providers Name Role Phone Unavailable Primary Care Provider Unavailable Encounter Details Date Type Department Care Team Description 11/20/2020 Orders Only [facility] O f López Awad MD [address] [place] [address] [place], [place] [phone] (Wo rk) Social History Tobacco Use Types Packs/Day Years Used Date Smoking Tobacco: Never Assessed Sex Assigned at Date Recorded Not on file documented as of this encounter Plan of Treatment Not on filedocumented as of this encounter Procedures Procedure Name Priority Date/Time Associated Diagnosis Comme nts HEMATOLOGY Routine 11/20/2020 Results for thi s procedure are in the resu lts section. CHEMISTRY Routine 11/20/2020 Results for thi s procedure are in the resu lts section. documented in this encounter Results (ABNORMAL) Spectrae Chemistry (11/20/2020) [facility] gist Method Time Signature BUN 52 (H) 6 - 19 [facility]RA mg/dL [facility] Creatinine 9.07 (H) 0.60 - [facility] 1.30 mg/dL [facility] BUN/Creatinine 5.7 (L) 10.0 - [facility] Ratio 20.0 [facility] Sodium 137 136 - 145 [facility] mEq/L [facility] Potassium 3.5 3.5 - 5.1 [facility] mEq/L [facility] Chloride 95 (L) 96 - 108 [facility] mEq/L [facility] Bicarbonate 24 22 - 29 A[facility] (CO2) mEq/L [facility] Calcium 9.4 8.4 - 10.2 [facility]RA mg/dL [facility] Corrected 9.4 8.4 - 10.2 APS [facility]PECTRA Calcium mg/dL [facility] Comment: Corrected Calcium is not equivalent to m easured Ionized Calcium. Phosphorus 5.1 (H) 2.6 - 4.5 mg/dL APS SPECTRA K [facility] Calcium Phosphorus Product 48 0 - 54 APS SPECTRA [facility] Calcium Phosporus Product, Cor 48 0 - 54 [facility] S[facility]RA [facility] Albumin 4.0 3.5 - 5.2 g/dL [facility] [place] Iron 100 30 - 160 mcg/dL APS SPECT[facility] [place] [facility]N UIBC 209 155 - 355 mcg/dL APS SPECTRA K [facility] TIBC 309 185 - 515 mcg/dL APS SPECTRA K [facility] Iron Saturation (TSat) 32 20 - 55 % APS SPE CTRA [facility] Specimen (Source) Anatomical Collection Method Collection Time Re ceived Time Location / / Volume Laterality 11/20/2020 11/21/2020 9:47 PM CDT Narrative [facility] - 11/22/2020 Unless otherwise specified, test(s) performed at: [facility], [address] [place] [address] DEMONSTRATOR [employer] APPLIANCES: Yoseph Rose M.D. For any questions, please call customer service at FREQUENCY:MONTHLY Resulting Agency Comment Specimen source: Serum López Mariano MD LAB BLOOD ORDERABLES Performing Organization Address City/State/ZIP Code Phon e Number [facility] (ABNORMAL) HEMATOLOGY (11/20/2020) [facility] gist Method Time Signature WBC 7.70 4.80 - [facility] 10.80 [facility] 1000/mcL RBC 3.38 (L) 4.20 - [facility] 5.40 [facility] mill/mcL Hemoglobin 11.5 (L) 12.0 - [facility] 16.0 g/dL [facility] Hemoglobin x 3 34.5 (L) 36.0 - [facility] 48.0 % [facility] Hematocrit 33.4 (L) 37.0 - [facility] 47.0 % [facility] MCV 99 80 - 100 [facility] fl [facility] MCH 34.0 (H) 27.0 - [facility] 31.0 pg [facility] MCHC 34.4 30.0 - [facility] 36.0 g/dL [facility] RDW 13.7 11.5 - [facility] 14.5 % [facility] Neutrophils 74.5 40.0 - [facility] 75.0 % [facility] Lymphocytes 15.9 (L) 19.0 - [facility] Relative 48.0 % [facility] Monocytes 5.1 3.0 - 10.0 APS S[facility] % [facility] Eosinophils 2.1 0.0 - 7.0 APS [facility]RA Relative % [facility] Basophils 1.1 0.0 - 1.5 A[facility] Relative % [facility] JESSICA 1.2 0.0 - 4.0 APS SPECTRA % [facility] Specimen (Source) Anatomical Collection Method Collection Time Re ceived Time Location / / Volume Laterality 11/20/2020 11/21/2020 8:18 PM CDT Narrative [facility]PS [facility] - 11/22/2020 Unless otherwise specified, test(s) performed at: [facility], [address] [place] [address] DEMONSTRATOR E[employer] APPLIANCES: Yoseph Rose M.D. For any questions, please call customer service at FREQUENCY:MONTHLY Resulting Agency Comment Specimen source: Blood López Mariano MD LAB BLOOD ORDERABLES Performing Organization Address City/State/ZIP Code Phon e Number [facility]PS [facility]RA [facility] documented in this encounter Visit Diagnoses Not on filedocumented in this encounter
--- OUTSIDE RECORDS SUMMARY | 2021-12-28 14:08 | XMS_ITS | Encounter Summary ---
:1965 Author Organization [facility] Address [address] [place] [address] Care Team Providers Name Role Phone Unavailable Primary Care Provider Unavailable Encounter Details Date Type Department Care Team Description 10/23/2020 [facility] Only [facility] O f López Awad MD [phone] [place] [address] [place], [place] [phone] [id number] (Wo rk) Social History Tobacco Use Types Packs/Day Years Used Date Smoking Tobacco: Never Assessed Sex Assigned at Date Recorded Not on file documented as of this encounter Plan of Treatment Not on filedocumented as of this encounter Procedures Procedure Name Priority Date/Time Associated Diagnosis Comme nts URINE CLEARANCE Routine 10/23/2020 Results for this procedure are i n the results section . PDF CHEMISTRY Routine 10/23/2020 Results for th is procedure are i n the results section . PD ADEQUACY Routine 10/23/2020 Results for thi s procedure are i n the results section . PD ADEQUACY Routine 10/23/2020 Results for thi s procedure are i n the results section . PATIENT INFORMATION Routine 10/23/2020 Results for this procedure are i n the results section . PATIENT INFORMATION Routine 10/23/2020 Results for this procedure are i n the results section . PATIENT INFORMATION Routine 10/23/2020 Results for this procedure are i n the results section . HEMATOLOGY Routine 10/23/2020 Results for thi s procedure are i n the results section . CHEMISTRY Routine 10/23/2020 Results for thi s procedure are i n the results section . CHEMISTRY Routine 10/23/2020 Results for thi s procedure are i n the results section . documented in this encounter Results (ABNORMAL) URINE CLEARANCE (10/23/2020) P athologist Signature Urea Nitrogen, 259 mg/dL [facility] Urine Timed [facility] Urea Nitrogen, 0.8 (L) 12.0 - [facility] Urine 24 Hr 20.0 g/24 [facility] hr Urea Clear, 0.8 (L) 64.0 - [facility] Urine Norm 99.0 [facility] mL/min Urea Clearance, 1.0 (L) 64.0 - [facility] Urine 99.0 [facility] mL/min Urea Clear, 10 L/wk [facility] Urine Norm Wkly [facility] Creatinine, 179.2 mg/dL [facility] Urine Timed [facility] Creatinine, 24H 0.5 0.5 - 1.6 [facility] Ur g/24 hr [facility] Creatinine 4.5 mL/min [facility] Clear, Urine [facility] Creat Clear, 3.7 (L) 77.0 - [facility] Urine Norm 94.0 [facility] mL/min Creat Clear, 45.4 L/wk [facility] Urine Wkly [facility] Specimen (Source) Anatomical Collection Method Collection Time Re ceived Time Location / / Volume Laterality 10/23/2020 10/24/2020 11:4 9 AM CDT Resulting Agency Comment Specimen source: Urine López Mariano MD LAB URINE ORDERABLES Performing Organization Address City/[facility] [address]/[facility] Phon e Number APS SPECTRA [facility] PD ADEQUACY (10/23/2020) P athologist Signature Kt/V, Residual 0.24 [facility] Creat Clear, 37 L/wk [facility] Urine Nor Wkly [facility] Specimen (Source) Anatomical Collection Method Collection Time Re ceived Time Location / / Volume Laterality 10/23/2020 10/24/2020 11:4 9 AM CDT Narrative APS S[facility] - 10/24/2020 Unless otherwise specified, test(s) performed at: [facility], [address] [place] [id number] INDUSTRI[employer]ACHINE ASSEMBLER: Yoseph Rose M.D. For any questions, please call customer service at FREQUENCY:QUARTERLY Resulting Agency Comment Specimen source: Urine López Mariano MD LAB BODY FLUIDS AND STOOLS O RDERABLES Performing Organization Address City/State/ZIP Code Phon e Number APS SPECTRA [facility] (ABNORMAL) Spectrae Chemistry (10/23/2020) P athologist Signature PTH 493 (H) 16 - 80 [facility] pg/mL [facility] Specimen (Source) Anatomical Collection Method Collection Time Re ceived Time Location / / Volume Laterality 10/23/2020 10/24/2020 2:58 PM CDT Narrative [facility] - 10/24/2020 Unless otherwise specified, test(s) performed at: [facility], [address] [place] [address] INDUSTRIAL MACHINE ASSEMBLER: Yoseph Rose M.D. For any questions, please call customer service at FREQUENCY:QUARTERLY Resulting Agency Comment Specimen source: Plasma López Mariano MD LAB BLOOD ORDERABLES Performing Organization Address City/State/ZIP Code Phon e Number APS SPECTRA [facility] PDF CHEMISTRY (10/23/2020) P athologist Signature Urea Nitrogen, 4,870.8 mg/24 hr [facility] PDF 24 Hr [facility] Urea Nitrogen, 38 mg/dL [facility] PDF Timed [facility] Comment: A reference range for this assay has not been established for body fluids. If blood results are available f or this analyte, results may be interpreted in comparison to those resul ts. Urea Clearance, PD Fluid 6.4 mL/min APS S PECTRA [facility] Urea Clearance, PDF Norm 5.3 mL/min APS S PECTRA [facility] Urea Clear, PDF Norm Wkly 65 L/wk APS SPECTRA [facility] Creatinine, PDF Timed Uncor 3.7 mg/dL AP S SPECTRA [facility] Comment: A reference range for this assay has not been established for body fluids. If blood results are available f or this analyte, results may be interpreted in comparison to those resul ts. Creatinine, PDF Timed Cor 3.5 mg/dL [facility] Comment: Creatinine values have been corrected fo r glucose interference. [facility] glucose correction factor f or creatinine is 0.0002. Creatinine, PDF 24 Hr 448.6 mg/24 hr APS SPEC TRA [facility] Creatinine Clear, PDF 3.7 mL/min APS SPEC TRA [facility] Creatinine Clear, PDF Norm 3.1 mL/min APS SPECTRA [facility] Creat Clear, PDF Norm Wkly 37 L/wk APS S[facility]RA [facility] Glucose, PDF Timed 1,215 mg/dL [facility]PS [facility] Comment: A reference range for this assay has not been established for body fluids. If blood results are available f or this analyte, results may be interpreted in comparison to those resul ts. Urea Clear, Tot Norm Wkly 75 L/wk APS S[facility]RA [facility] Creat Clear, Tot Wkly 82 L/wk APS SPEC TRA [facility] Specimen (Source) Anatomical Collection Method Collection Time Re ceived Time Location / / Volume Laterality 10/23/2020 10/24/2020 11:4 5 AM CDT Resulting Agency Comment Specimen source: PD Fluid López Mariano MD LAB BODY FLUIDS AND STOOLS O RDERASLICK Performing Organization Address City/State/ZIP Code Phon e Number APS SPECTRA [facility] PD ADEQUACY (10/23/2020) P athologist Signature Kt/V, 1.57 [facility] Peritoneal [facility] Creat Clear, 31 L/wk [facility] PDF Norm Wkly [facility] Kt/V, Total 1.81 [facility] Comment: KDOQI Guidelines recommend weekly Kt/V o f >=1.7 for adults. Creat Clear, Tot Norm Wkly 68 L/wk [facility] PNA, Normalized 0.81 g/kg/day A[facility] [place] [facility] PNA 58 g/day APS SPECTRA [facility] Specimen (Source) Anatomical Collection Method Collection Time Re ceived Time Location / / Volume Laterality 10/23/2020 10/24/2020 11:4 5 AM CDT Narrative APS SPECTRA [facility] - 10/24/2020 Unless otherwise specified, test(s) performed at: [facility], [address] [place] [id number] INDUSTRIAL MACHINE ASSEMBLER: Yoseph Rose M.D. For any questions, please call customer service at FREQUENCY:QUARTERLY Resulting Agency Comment Specimen source: PD Fluid López Mariano MD LAB BODY FLUIDS AND STOOLS O RDERABLES Performing Organization Address City/State/ZIP Code Phon e Number APS SPECTRA [facility] (ABNORMAL) HEMATOLOGY (10/23/2020) Patholo gist Method Time Signature WBC 8.07 4.80 - [facility] 10.80 [facility] 1000/mcL RBC 3.50 (L) 4.20 - APS SPECTRA 5.40 [facility] mill/mcL Hemoglobin 11.4 (L) 12.0 - [facility] 16.0 g/dL [facility] Hemoglobin x 3 34.2 (L) 36.0 - [facility] 48.0 % [facility] Hematocrit 34.9 (L) 37.0 - [facility] 47.0 % [facility] MCV 100 80 - 100 [facility] fl [facility] MCH 32.6 (H) 27.0 - [facility] 31.0 pg [facility] MCHC 32.7 30.0 - [facility] 36.0 g/dL [facility] RDW 14.7 (H) 11.5 - [facility] 14.5 % [facility] Neutrophils 77.0 (H) 40.0 - [facility] 75.0 % [facility] Lymphocytes 13.6 (L) 19.0 - [facility] Relative 48.0 % [facility] Monocytes 4.0 3.0 - 10.0 [facility] % [facility] Eosinophils 2.7 0.0 - 7.0 [facility] Relative % [facility] Basophils 1.4 0.0 - 1.5 [facility] Relative % [facility] JESSICA 1.3 0.0 - 4.0 [facility] % [facility] Specimen (Source) Anatomical Collection Method Collection Time Re ceived Time Location / / Volume Laterality 10/23/2020 10/24/2020 2:35 PM CDT Narrative APS SPECTRA [facility] - 10/24/2020 Unless otherwise specified, test(s) performed at: [facility], [address] [place] [address] INDUSTRIAL MACHINE ASSEMBLER: Yoseph Rose M.D. For any questions, please call customer service at FREQUENCY:QUARTERLY Resulting Agency Comment Specimen source: Blood López Mariano MD LAB BLOOD ORDERABLES Performing Organization Address City/State/ZIP Code Phon e Number APS SPECTRA [facility] (ABNORMAL) Spectrae Chemistry (10/23/2020) [facility] Method Time Signature BUN 53 (H) 6 - 19 A[facility] mg/dL [facility] Creatinine 8.32 (H) 0.60 - APS [facility] 1.30 mg/dL [facility] BUN/Creatinine 6.4 (L) 10.0 - [facility] Ratio 20.0 [facility] Sodium 130 (L) 136 - 145 A[facility] mEq/L [facility] Potassium 3.4 (L) 3.5 - 5.1 [facility] mEq/L [facility] Chloride 91 (L) 96 - 108 [facility] mEq/L [facility] Bicarbonate 22 22 - 29 APS [facility] (CO2) mEq/L [facility] Calcium 9.0 8.4 - 10.2 [facility] mg/dL [facility] Corrected 9.0 8.4 - 10.2 [facility] Calcium mg/dL [facility] Comment: Corrected Calcium is not equivalent to m easured Ionized Calcium. Phosphorus 6.2 (H) 2.6 - 4.5 mg/dL APS SPECTRA K [facility] Calcium Phosphorus Product 56 (H) 0 - 54 APS SPECTRA [facility] Calcium Phosporus Product, Cor 56 (H) 0 - 54 APS SPECTRA [facility] Alkaline Phosphatase 59 35 - 104 U/L APS SP ECTRA [facility] Albumin 4.0 3.5 - 5.2 g/dL [facility]PS [facility] [place] Magnesium 2.2 1.6 - 2.6 mg/dL [facility] [place] [facility] Iron 78 30 - 160 mcg/dL [facility] [place] [facility] UIBC 229 155 - 355 mcg/dL APS SPECTRA [facility] TIBC 307 185 - 515 mcg/dL APS SPECTRA K [facility] Iron Saturation (TSat) 25 20 - 55 % APS SPE CTRA [facility] Ferritin 592 (H) 10 - 291 ng/mL APS SPECTRA [facility] [place] Specimen (Source) Anatomical Collection Method Collection Time Re ceived Time Location / / Volume Laterality 10/23/2020 10/24/2020 11:3 5 AM CDT Narrative APS SPECTRA [facility] - 10/24/2020 Unless otherwise specified, test(s) performed at: [facility], [address] [place] [address] INDUSTRIAL MACHINE ASSEMBLER: Yoseph Rose M.D. For any questions, please call customer service at FREQUENCY:QUARTERLY Resulting Agency Comment Specimen source: Serum López Mariano MD LAB BLOOD ORDERABLES Performing Organization Address City/State/ZIP Code Phon e Number APS SPECTRA [facility] PATIENT INFORMATION (10/23/2020) P athologist Signature Urea Volume 41.3 L [facility]PS [facility]PECT[facility] Distribution [facility] ([place]) Specimen (Source) Anatomical Collection Method Collection Time Re ceived Time Location / / Volume Laterality 10/23/2020 10/24/2020 11:4 5 AM CDT Narrative APS SPECTRA [facility] - 10/24/2020 Unless otherwise specified, test(s) performed at: [facility], [address] [place] [address] INDUSTRIAL MACHINE ASSEMBLER: Yoseph Rose M.D. For any questions, please call customer service at FREQUENCY:QUARTERLY Resulting Agency Comment Specimen source: PD Fluid López Mariano MD LAB BLOOD ORDERABLES Performing Organization Address City/[facility] [address]/[facility] Phon e Number APS SPECTRA [facility] PATIENT INFORMATION (10/23/2020) athologist Signature Patient BSA 2.09 sq. M. APS SPECTRA [facility] Comment: Normalized values are calculated using t he patient's actual BSA and normalized to the average BSA of 1.73m2. Specimen (Source) Anatomical Collection Method Collection Time Re ceived Time Location / / Volume Laterality 10/23/2020 10/24/2020 11:3 5 AM CDT Narrative APS SPECTRA [facility] - 10/24/2020 Unless otherwise specified, test(s) performed at: [facility], [address] [place] [address] INDUSTRIAL MACHINE ASSEMBLER: Yoseph Rose M.D. For any questions, please call customer service at FREQUENCY:QUARTERLY Resulting Agency Comment Specimen source: PD Fluid López Mariano MD LAB BLOOD ORDERABLES Performing Organization Address City/[facility] [address]/[facility] Phon e Number APS SPECTRA [facility] PATIENT INFORMATION (10/23/2020) P athologist Signature Patient Weight 97.9 APS SPECTRA [facility] Patient Height 170.0 APS SPECTRA [facility] Amputee Status NO APS SPECTRA [facility] Amputee Parts NONE APS SPECTRA [facility] Drain volume, 12,818 [facility] PDF [facility] Collection 24.0 [facility] Time, PDF [facility] Urine Volume 300 APS SPECTRA [facility] Collection 24.0 APS [facility]PECTRA Interval, Ur [facility] Specimen (Source) Anatomical Location Collection Method / Collectio n Time Received Time / Laterality Volume 10/23/2020 10/23/2020 Narrative APS SPECTRA [facility] - 10/24/2020 Unless otherwise specified, test(s) performed at: [facility], [address] [place], [place] [id number] INDUSTRIAL MACHINE ASSEMBLER: Yoseph Rose M.D. For any questions, please call customer service at FREQUENCY:QUARTERLY Resulting Agency Comment Specimen source: PD Fluid López Mariano MD LAB BLOOD ORDERABLES Performing Organization Address City/State/ZIP Code Phon e Number APS SPECTRA [facility] documented in this encounter Visit Diagnoses Not on filedocumented in this encounter
--- OUTSIDE RECORDS SUMMARY | 2021-12-28 14:08 | XMS_ITS | Encounter Summary ---
:1965 Author Organization [facility] Address [address] [place] [address] Care Team Providers Name Role Phone Unavailable Primary Care Provider Unavailable Encounter Details Date Type Department Care Team Description 02/17/2021 Orders Only [facility] O f López Awad MD [phone] [place] [address] [place], [place] [phone] (Wo rk) Social History Tobacco Use Types Packs/Day Years Used Date Smoking Tobacco: Never Assessed Sex Assigned at Date Recorded Not on file documented as of this encounter Plan of Treatment Not on filedocumented as of this encounter Procedures Procedure Name Priority Date/Time Associated Diagnosis Comme nts HEMATOLOGY Routine 02/17/2021 Results for thi s procedure are in the resu lts section. documented in this encounter Results (ABNORMAL) HEMATOLOGY (02/17/2021) [facility] Method Time Signature WBC 5.73 4.80 - APS SPECTRA 10.80 [facility] 1000/mcL RBC 2.89 (L) 4.20 - APS SPECTRA 5.40 [facility] mill/mcL Hemoglobin 9.9 (L) 12.0 - APS SPECTRA 16.0 g/dL [facility] Hemoglobin x 3 29.7 (L) 36.0 - APS SPECTRA 48.0 % [facility] Hematocrit 30.2 (L) 37.0 - APS SPECTRA 47.0 % [facility] MCV 104 (H) 80 - 100 APS SPECTRA fl [facility] MCH 34.2 (H) 27.0 - APS SPECTRA 31.0 pg [facility] MCHC 32.8 30.0 - APS SPECTRA 36.0 g/dL [facility] RDW 13.3 11.5 - APS SPECTRA 14.5 % [facility] Neutrophils 76.8 (H) 40.0 - APS SPECTRA 75.0 % [facility] Lymphocytes 14.5 (L) 19.0 - APS SPECTRA Relative 48.0 % [facility] Monocytes 3.9 3.0 - 10.0 APS SPECTRA % [facility] Eosinophils 3.0 0.0 - 7.0 APS [facility]PECT[facility] Relative % [facility] Basophils 1.0 0.0 - 1.5 APS [facility] Relative % [facility] JESSICA 0.8 0.0 - 4.0 APS SPECT[facility] % [facility] Specimen (Source) Anatomical Collection Method Collection Time Re ceived Time Location / / Volume Laterality 02/17/2021 02/20/2021 9:52 AM CDT Narrative APS SPECTRA [facility] - 02/20/2021 Unless otherwise specified, test(s) performed at: [facility], [address] [place] [id number] RETAIL SERVICES PROFESSIONAL: Yoseph Rose M.D. For any questions, please call customer service at FREQUENCY:OTHER Resulting Agency Comment Specimen source: Blood López Mariano MD LAB BLOOD ORDERABLES Performing Organization Address City/State/ZIP Code Phon e Number APS SPECTRA [facility] documented in this encounter Visit Diagnoses Not on filedocumented in this encounter
--- OUTSIDE RECORDS SUMMARY | 2021-12-28 14:08 | XMS_ITS | Encounter Summary ---
:1965 Author Organization [facility] Address [address] [place] [address] Care Team Providers Name Role Phone Unavailable Primary Care Provider Unavailable Encounter Details Date Type Department Care Team Description 12/18/2020 Orders Only [facility] O f López Awad MD [phone] [place] [address] [place], [place] [phone] [id number] (Wo rk) Social History Tobacco Use Types Packs/Day Years Used Date Smoking Tobacco: Never Assessed Sex Assigned at Date Recorded Not on file documented as of this encounter Plan of Treatment Not on filedocumented as of this encounter Procedures Procedure Name Priority Date/Time Associated Diagnosis Comme nts URINE CLEARANCE Routine 12/18/2020 Results for this procedure are i n the results section . PDF CHEMISTRY Routine 12/18/2020 Results for th is procedure are i n the results section . PD ADEQUACY Routine 12/18/2020 Results for thi s procedure are i n the results section . PD ADEQUACY Routine 12/18/2020 Results for thi s procedure are i n the results section . PATIENT INFORMATION Routine 12/18/2020 Results for this procedure are i n the results section . PATIENT INFORMATION Routine 12/18/2020 Results for this procedure are i n the results section . PATIENT INFORMATION Routine 12/18/2020 Results for this procedure are i n the results section . HEMATOLOGY Routine 12/18/2020 Results for thi s procedure are i n the results section . CHEMISTRY Routine 12/18/2020 Results for thi s procedure are i n the results section . documented in this encounter Results PD ADEQUACY (12/18/2020) P athologist Signature Kt/V, Residual 0.32 [facility]PS [facility]PECTRA [facility] Creat Clear, 38 L/wk [facility] SPECTRA Urine Nor Wkly [facility] Specimen (Source) Anatomical Collection Method Collection Time Re ceived Time Location / / Volume Laterality 12/18/2020 12/19/2020 2:55 PM CDT Resulting Agency Comment Specimen source: Urine López Mariano MD LAB BODY FLUIDS AND STOOLS O RDERABLES Performing Organization Address City/[facility]/ZIP Code Phon e Number APS SPECTRA [facility] PATIENT INFORMATION (12/18/2020) athologist Signature Urine Volume 300 mL [facility] Collection 24.0 hr APS [facility]RA Interval, Ur [facility] Specimen (Source) Anatomical Collection Method Collection Time Re ceived Time Location / / Volume Laterality 12/18/2020 12/25/2020 12:1 4 PM CDT Narrative APS [facility]PECT[facility] - 12/25/2020 Unless otherwise specified, test(s) performed at: [facility], [address] [place] [address] TANK COOPER: Yoseph Rose M.D. For any questions, please call customer service at FREQUENCY:MONTHLY Resulting Agency Comment Specimen source: Urine López Mariano MD LAB BLOOD ORDERABLES Performing Organization Address [facility] Phon e Number APS SPECTRA [facility] PD ADEQUACY (12/18/2020) athologist Signature Kt/V, Total 1.73 [facility] Comment: KDOQI Guidelines recommend weekly Kt/V o f >=1.7 for adults. Kt/V, Peritoneal 1.41 APS SPECTRA K [facility] Creat Clear, Tot Norm Wkly 63 L/wk [facility] S[facility] Creat Clear, PDF Norm Wkly 25 L/wk [facility] PNA, Normalized 0.68 g/kg/day APS SPECTRA [place] MMN PNA 48 g/day APS SPECTRA [facility] Specimen (Source) Anatomical Collection Method Collection Time Re ceived Time Location / / Volume Laterality 12/18/2020 12/19/2020 2:56 PM CDT Resulting Agency Comment Specimen source: PD Fluid López Mariano MD LAB BODY FLUIDS AND STOOLS O RDERABLES Performing Organization Address City/[facility] Phon e Number APS SPECTRA [facility] PATIENT INFORMATION (12/18/2020) athologist Signature Urea Volume 41.1 L APS SPECTRA Distribution [facility] ([place]) Specimen (Source) Anatomical Collection Method Collection Time Re ceived Time Location / / Volume Laterality 12/18/2020 12/19/2020 2:56 PM CDT Narrative APS SPECTRA [facility] - 12/25/2020 Unless otherwise specified, test(s) performed at: [facility], [address] [place], [place] [id number] TANK COOPER: Yoseph Rose M.D. For any questions, please call customer service at FREQUENCY:MONTHLY Resulting Agency Comment Specimen source: PD Fluid López Mariano MD LAB BLOOD ORDERABLES Performing Organization Address [facility] Phon e Number APS SPECTRA [facility] PATIENT INFORMATION (12/18/2020) athologist Signature Patient Weight 97.0 kg [facility]PS [facility]RA [facility] Patient Height 170.0 cm [facility]PS [facility]RA [facility] Drain volume, 12,533 mL [facility]PS SPECTRA PDF [facility] Collection 24.0 hr APS SPECTRA Time, PDF [facility] Patient BSA 2.08 sq. M. [facility]PS S[facility] Comment: Normalized values are calculated using t he patient's actual BSA and normalized to the average BSA of 1.73m2. Specimen (Source) Anatomical Collection Method Collection Time Re ceived Time Location / / Volume Laterality 12/18/2020 12/25/2020 12:1 4 PM CDT Narrative APS SPECTRA [facility] - 12/25/2020 Unless otherwise specified, test(s) performed at: [facility], [address] [place] [address] TANK COOPER: Yoseph Rose M.D. For any questions, please call customer service at FREQUENCY:MONTHLY Resulting Agency Comment Specimen source: PD Fluid López Mariano MD LAB BLOOD ORDERABLES Performing Organization Address [facility] Phon e Number APS SPECTRA [facility] (ABNORMAL) URINE CLEARANCE (12/18/2020) athologist Signature Urea Nitrogen, 258 mg/dL APS SPECTRA Urine Timed [facility] Creatinine, 222.5 mg/dL APS SPECTRA Urine Timed [facility] Urea Nitrogen, 0.8 (L) 12.0 - APS SPECTRA Urine 24 Hr 20.0 g/24 [facility] hr Urea Clear, 1.1 (L) 64.0 - APS SPECTRA Urine Norm 99.0 [facility] mL/min Urea Clearance, 1.3 (L) 64.0 - APS SPECTRA Urine 99.0 [facility] mL/min Urea Clear, 13 L/wk APS SPECTRA Urine Norm Wkly [facility] Creatinine, 24H 0.7 0.5 - 1.6 APS SPECTRA Ur g/24 hr [facility] Creatinine 4.5 mL/min APS SPECTRA Clear, Urine [facility] Creat Clear, 3.8 (L) 77.0 - APS SPECTRA Urine Norm 94.0 [facility] mL/min Creat Clear, 45.4 L/wk APS SPECTRA Urine Wkly [facility] Specimen (Source) Anatomical Collection Method Collection Time Re ceived Time Location / / Volume Laterality 12/18/2020 12/19/2020 2:55 PM CDT Resulting Agency Comment Specimen source: Urine López Mariano MD LAB URINE ORDERABLES Performing Organization Address City/State/ZIP Code Phon e Number APS SPECTRA [facility] PDF CHEMISTRY (12/18/2020) P athologist Signature Urea Nitrogen, 28 mg/dL APS SPECTRA PDF Timed [facility] Comment: A reference range for this assay has not been established for body fluids. If blood results are available f or this analyte, results may be interpreted in comparison to those resul ts. Creatinine, PDF Timed Uncor 3.8 mg/dL AP S SPECTRA [facility] Comment: A reference range for this assay has not been established for body fluids. If blood results are available f or this analyte, results may be interpreted in comparison to those resul ts. Creatinine, PDF Timed Cor 3.5 mg/dL APS SPECTRA [facility] Comment: Creatinine values have been corrected fo r glucose interference. [facility] glucose correction factor f or creatinine is 0.0002. Glucose, PDF Timed 1,326 mg/dL APS SPECTRA [facility] Comment: A reference range for this assay has not been established for body fluids. If blood results are available f or this analyte, results may be interpreted in comparison to those resul ts. Urea Nitrogen, PDF 24 Hr 3,509.2 mg/24 hr APS S PECTRA [facility] Urea Clearance, PD Fluid 5.8 mL/min APS S PECTRA [facility] Urea Clearance, PDF Norm 4.8 mL/min APS S PECTRA [facility] Urea Clear, Tot Norm Wkly 71 L/wk APS SPECTRA [facility] Urea Clear, PDF Norm Wkly 58 L/wk APS SPECTRA [facility] Creatinine, PDF 24 Hr 438.7 mg/24 hr APS SPEC TRA [facility] Creatinine Clear, PDF 3.0 mL/min APS SPEC TRA [facility] Creatinine Clear, PDF Norm 2.5 mL/min APS SPECTRA [facility] Creat Clear, PDF Norm Wkly 30 L/wk APS SPECTRA [facility] Creat Clear, Tot Wkly 75 L/wk APS SPEC TRA [facility] Specimen (Source) Anatomical Collection Method Collection Time Re ceived Time Location / / Volume Laterality 12/18/2020 12/19/2020 2:56 PM CDT Resulting Agency Comment Specimen source: PD Fluid López Mariano MD LAB BODY FLUIDS AND STOOLS O RDERABLES Performing Organization Address City/State/ZIP Code Phon e Number APS SPECTRA [facility] (ABNORMAL) Spectrae Chemistry (12/18/2020) [facility] gist Method Time Signature BUN 42 (H) 6 - 19 APS SPECTRA mg/dL [facility] Creatinine 10.24 (H) 0.60 - APS SPECTRA 1.30 [facility] mg/dL BUN/Creatinine 4.1 (L) 10.0 - APS SPECTRA Ratio 20.0 [facility] Sodium 137 136 - 145 APS SPECTRA mEq/L [facility] Potassium 3.7 3.5 - 5.1 APS SPECTRA mEq/L [facility] Chloride 97 96 - 108 APS SPECTRA mEq/L [facility] Bicarbonate 24 22 - 29 APS SPECTRA (CO2) mEq/L [facility] Calcium 9.3 8.4 - APS SPECTRA 10.2 [facility] mg/dL Corrected 9.5 8.4 - APS SPECTRA Calcium 10.2 [facility] mg/dL Comment: Corrected Calcium is not equivalent to m easured Ionized Calcium. Phosphorus 5.3 (H) 2.6 - 4.5 mg/dL APS SPECTRA K [facility] Calcium Phosphorus Product 49 0 - 54 APS SPECTRA [facility] Calcium Phosporus Product, Cor 50 0 - 54 APS SPECTRA [facility] Albumin 3.8 3.5 - 5.2 g/dL APS S[facility] [place] Iron 74 30 - 160 mcg/dL APS SPECT[facility] [place] [facility] UIBC 217 155 - 355 mcg/dL APS SPECTRA K [facility] TIBC 291 185 - 515 mcg/dL APS SPECTRA [facility] Iron Saturation (TSat) 25 20 - 55 % APS SPE CTRA [facility] Specimen (Source) Anatomical Collection Method Collection Time Re ceived Time Location / / Volume Laterality 12/18/2020 12/19/2020 3:21 PM CDT Narrative APS SPECTRA [facility] - 12/19/2020 Unless otherwise specified, test(s) performed at: [facility], [address] [place], [place] [phone] TANK COOPER: Yoseph Rose M.D. For any questions, please call customer service at FREQUENCY:MONTHLY Resulting Agency Comment Specimen source: Serum López Mariano MD LAB BLOOD ORDERABLES Performing Organization Address City/State/ZIP Code Phon e Number APS SPECTRA [facility] (ABNORMAL) HEMATOLOGY (12/18/2020) [facility] gist Method Time Signature WBC 7.82 4.80 - APS SPECTRA 10.80 [facility] 1000/mcL RBC 3.31 (L) 4.20 - APS SPECTRA 5.40 [facility] mill/mcL Hemoglobin 11.2 (L) 12.0 - APS SPECTRA 16.0 g/dL [facility] Hemoglobin x 3 33.6 (L) 36.0 - APS SPECTRA 48.0 % [facility] Hematocrit 34.1 (L) 37.0 - APS SPECTRA 47.0 % [facility] MCV 103 (H) 80 - 100 APS SPECTRA fl [facility] MCH 33.8 (H) 27.0 - APS SPECTRA 31.0 pg [facility] MCHC 32.8 30.0 - APS SPECTRA 36.0 g/dL [facility] RDW 13.9 11.5 - APS SPECTRA 14.5 % [facility] Neutrophils 75.0 40.0 - APS SPECTRA 75.0 % [facility] Lymphocytes 15.5 (L) 19.0 - APS SPECTRA Relative 48.0 % [facility] Monocytes 4.8 3.0 - 10.0 APS SPECTRA % [facility] Eosinophils 2.2 0.0 - 7.0 APS SPECTRA Relative % [facility] Basophils 1.2 0.0 - 1.5 APS SPECTRA Relative % [facility] JESSICA 1.4 0.0 - 4.0 APS SPECTRA % [facility] Specimen (Source) Anatomical Collection Method Collection Time Re ceived Time Location / / Volume Laterality 12/18/2020 12/19/2020 3:17 PM CDT Narrative APS SPECTRA [facility] - 12/19/2020 Unless otherwise specified, test(s) performed at: [facility], [address] [place] [address] TANK COOPER: Yoseph Rose M.D. For any questions, please call customer service at FREQUENCY:MONTHLY Resulting Agency Comment Specimen source: Blood López Mariano MD LAB BLOOD ORDERABLES Performing Organization Address City/State/ZIP Code Phon e Number APS SPECTRA [facility] documented in this encounter Visit Diagnoses Not on filedocumented in this encounter
--- OUTSIDE RECORDS SUMMARY | 2021-12-28 14:08 | XMS_ITS | Encounter Summary ---
:1965 Author Organization [facility] Address [address] [place] [address] Care Team Providers Name Role Phone Unavailable Primary Care Provider Unavailable Encounter Details Date Type Department Care Team Description 09/18/2020 Orders Only [facility] O f López Awad MD [phone] [place] [address] [place], [place] [phone] (Wo rk) Social History Tobacco Use Types Packs/Day Years Used Date Smoking Tobacco: Never Assessed Sex Assigned at Date Recorded Not on file documented as of this encounter Plan of Treatment Not on filedocumented as of this encounter Procedures Procedure Name Priority Date/Time Associated Diagnosis Comme nts URINE CLEARANCE Routine 09/18/2020 Results for this procedure are i n the results section . PDF CHEMISTRY Routine 09/18/2020 Results for th is procedure are i n the results section . PD ADEQUACY Routine 09/18/2020 Results for thi s procedure are i n the results section . PD ADEQUACY Routine 09/18/2020 Results for thi s procedure are i n the results section . PATIENT INFORMATION Routine 09/18/2020 Results for this procedure are i n the results section . PATIENT INFORMATION Routine 09/18/2020 Results for this procedure are i n the results section . PATIENT INFORMATION Routine 09/18/2020 Results for this procedure are i n the results section . HEMATOLOGY Routine 09/18/2020 Results for thi s procedure are i n the results section . CHEMISTRY Routine 09/18/2020 Results for thi s procedure are i n the results section . documented in this encounter Results PD ADEQUACY (09/18/2020) P athologist Signature Kt/V, Residual 0.46 [facility] Creat Clear, 50 L/wk APS SPECTRA Urine Nor Wkly [facility] Specimen (Source) Anatomical Collection Method Collection Time Re ceived Time Location / / Volume Laterality 09/18/2020 09/20/2020 2:32 PM CDT Narrative APS SPECTRA [facility] - 09/21/2020 Unless otherwise specified, test(s) performed at: [facility], [address] [place] [address] RESIDENTIAL CARE FACILITY MANAGER: Yoseph Rose M.D. For any questions, please call customer service at FREQUENCY:MONTHLY Resulting Agency Comment Specimen source: Urine López Mariano MD LAB BODY FLUIDS AND STOOLS O RDERABLES Performing Organization Address City/State/ZIP Code Phon e Number APS SPECTRA [facility] (ABNORMAL) Spectrae Chemistry (09/18/2020) Patholo gist Method Time Signature BUN 47 (H) 6 - 19 APS SPECTRA mg/dL [facility] Creatinine 6.67 (H) 0.60 - APS SPECTRA 1.30 mg/dL [facility] BUN/Creatinine 7.0 (L) 10.0 - APS SPECTRA Ratio 20.0 [facility] Sodium 137 136 - 145 APS SPECTRA mEq/L [facility] Potassium 3.5 3.5 - 5.1 APS SPECTRA mEq/L [facility] Chloride 98 96 - 108 APS SPECTRA mEq/L [facility] Bicarbonate 22 22 - 29 APS SPECTRA (CO2) mEq/L [facility] Calcium 8.9 8.4 - 10.2 APS SPECTRA mg/dL [facility] Corrected 9.1 8.4 - 10.2 APS SPECTRA Calcium mg/dL [facility] Comment: Corrected Calcium is not equivalent to m easured Ionized Calcium. Phosphorus 5.8 (H) 2.6 - 4.5 mg/dL APS SPECTRA K [facility] Calcium Phosphorus Product 52 0 - 54 APS SPECTRA [facility] Calcium Phosporus Product, Cor 53 0 - 54 APS SPECTRA [facility] Albumin 3.8 3.5 - 5.2 g/dL APS S[facility] [place] Iron 55 30 - 160 mcg/dL APS SPECTRA [place] MMN UIBC 241 155 - 355 mcg/dL APS SPECTRA K [facility] TIBC 296 185 - 515 mcg/dL APS SPECTRA [facility] Iron Saturation (TSat) 19 (L) 20 - 55 % APS SPE CTRA [facility] Specimen (Source) Anatomical Collection Method Collection Time Re ceived Time Location / / Volume Laterality 09/18/2020 09/20/2020 10:1 2 AM CDT Narrative APS SPECTRA [facility] - 09/21/2020 Unless otherwise specified, test(s) performed at: [facility], [address] [place] [address] RESIDENTIAL CARE FACILITY MANAGER: Yoseph Rose M.D. For any questions, please call customer service at FREQUENCY:MONTHLY Resulting Agency Comment Specimen source: Serum López Mariano MD LAB BLOOD ORDERABLES Performing Organization Address City/State/ZIP Code Phon e Number APS SPECTRA [facility] (ABNORMAL) URINE CLEARANCE (09/18/2020) P athologist Signature Urea Nitrogen, 283 mg/dL APS SPECTRA Urine Timed [facility] Urea Nitrogen, 1.3 (L) 12.0 - APS SPECTRA Urine 24 Hr 20.0 g/24 [facility] hr Creatinine, 129.9 mg/dL APS SPECTRA Urine Timed [facility] Creatinine, 24H 0.6 0.5 - 1.6 APS SPECTRA Ur g/24 hr [facility] Urea Clear, 1.6 (L) 64.0 - APS SPECTRA Urine Norm 99.0 [facility] mL/min Urea Clearance, 1.9 (L) 64.0 - APS SPECTRA Urine 99.0 [facility] mL/min Urea Clear, 19 L/wk APS SPECTRA Urine Norm Wkly [facility] Creatinine 6.1 mL/min APS SPECTRA Clear, Urine [facility] Creat Clear, 5.0 (L) 77.0 - APS SPECTRA Urine Norm 94.0 [facility] mL/min Creat Clear, 61.5 L/wk APS SPECTRA Urine Wkly [facility] Specimen (Source) Anatomical Collection Method Collection Time Re ceived Time Location / / Volume Laterality 09/18/2020 09/20/2020 2:32 PM CDT Resulting Agency Comment Specimen source: Urine López Mariano MD LAB URINE ORDERABLES Performing Organization Address City/State/ZIP Code Phon e Number APS SPECTRA [facility] PD ADEQUACY (09/18/2020) athologist Signature PNA, Normalized 0.66 g/kg/day APS SPECTRA [facility] PNA 47 g/day APS SPECTRA [facility] Kt/V, Total 1.52 APS SPECTRA [facility] Comment: KDOQI Guidelines recommend weekly Kt/V o f >=1.7 for adults. Kt/V, Peritoneal 1.06 APS SPECTRA [facility] Creat Clear, Tot Norm Wkly 70 L/wk APS SPECTRA [facility] Creat Clear, PDF Norm Wkly 20 L/wk APS SPECTRA [facility] Specimen (Source) Anatomical Collection Method Collection Time Re ceived Time Location / / Volume Laterality 09/18/2020 09/20/2020 1:50 PM CDT Narrative APS SPECTRA [facility] - 09/21/2020 Unless otherwise specified, test(s) performed at: [facility], [address] [place] [address] RESIDENTIAL CARE FACILITY MANAGER: Yoseph Rose M.D. For any questions, please call customer service at FREQUENCY:MONTHLY Resulting Agency Comment Specimen source: PD Fluid López Mariano MD LAB BODY FLUIDS AND STOOLS O RDERABLES Performing Organization Address City/State/ZIP Code Phon e Number APS SPECTRA [facility] PDF CHEMISTRY (09/18/2020) P athologist Signature Urea Nitrogen, 2,957.7 mg/24 hr APS SPECTRA PDF 24 Hr [facility] Urea Nitrogen, 31 mg/dL APS SPECTRA PDF Timed [facility] Comment: A reference range for this assay has not been established for body fluids. If blood results are available f or this analyte, results may be interpreted in comparison to those resul ts. Creatinine, PDF Timed Uncor 2.8 mg/dL AP S SPECTRA [facility] Comment: A reference range for this assay has not been established for body fluids. If blood results are available f or this analyte, results may be interpreted in comparison to those resul ts. Creatinine, PDF Timed Cor 2.5 mg/dL APS SPECTRA [facility] Comment: Creatinine values have been corrected fo r glucose interference. [facility] glucose correction factor f or creatinine is 0.0002. Creatinine, PDF 24 Hr 238.5 mg/24 hr APS SPEC TRA [facility] Glucose, PDF Timed 1,320 mg/dL APS SPECTRA [facility] Comment: A reference range for this assay has not been established for body fluids. If blood results are available f or this analyte, results may be interpreted in comparison to those resul ts. Urea Clearance, PD Fluid 4.4 mL/min APS S PECTRA [facility] Urea Clearance, PDF Norm 3.6 mL/min APS S PECTRA [facility] Urea Clear, Tot Norm Wkly 63 L/wk APS SPECTRA [facility] Urea Clear, PDF Norm Wkly 44 L/wk APS SPECTRA [facility] Creatinine Clear, PDF 2.5 mL/min APS SPEC TRA [facility] Creatinine Clear, PDF Norm 2.0 mL/min APS SPECTRA [facility] Creat Clear, PDF Norm Wkly 25 L/wk APS SPECTRA [facility] Creat Clear, Tot Wkly 87 L/wk APS SPEC TRA [facility] Specimen (Source) Anatomical Collection Method Collection Time Re ceived Time Location / / Volume Laterality 09/18/2020 09/20/2020 1:50 PM CDT Resulting Agency Comment Specimen source: PD Fluid López Mariano MD LAB BODY FLUIDS AND STOOLS O RDERABLES Performing Organization Address City/State/ZIP Code Phon e Number APS SPECTRA [facility] (ABNORMAL) HEMATOLOGY (09/18/2020) [facility] gist Method Time Signature WBC 7.52 4.80 - APS SPECTRA 10.80 [facility] 1000/mcL RBC 3.54 (L) 4.20 - APS SPECTRA 5.40 [facility] mill/mcL Hemoglobin 11.4 (L) 12.0 - APS SPECTRA 16.0 g/dL [facility] Hemoglobin x 3 34.2 (L) 36.0 - APS SPECTRA 48.0 % [facility] Hematocrit 37.1 37.0 - APS SPECTRA 47.0 % [facility] MCV 105 (H) 80 - 100 APS SPECTRA fl [facility] MCH 32.1 (H) 27.0 - APS SPECTRA 31.0 pg [facility] MCHC 30.6 30.0 - APS SPECTRA 36.0 g/dL [facility] RDW 13.8 11.5 - APS SPECTRA 14.5 % [facility] Neutrophils 74.7 40.0 - APS SPECTRA 75.0 % [facility] Lymphocytes 16.9 (L) 19.0 - APS SPECTRA Relative 48.0 % [facility] Monocytes 2.3 (L) 3.0 - 10.0 APS SPECTRA % [facility] Eosinophils 2.6 0.0 - 7.0 APS SPECTRA Relative % [facility] Basophils 2.0 (H) 0.0 - 1.5 APS SPECTRA Relative % [facility] JESSICA 1.4 0.0 - 4.0 APS SPECTRA % [facility] Specimen (Source) Anatomical Collection Method Collection Time Re ceived Time Location / / Volume Laterality 09/18/2020 09/20/2020 8:28 AM CDT Narrative APS SPECTRA [facility] - 09/20/2020 Unless otherwise specified, test(s) performed at: [facility], [address] [place], [place] [phone] RESIDENTIAL CARE FACILITY MANAGER: Yoseph Rose M.D. For any questions, please call customer service at FREQUENCY:MONTHLY Resulting Agency Comment Specimen source: Blood López Mariano MD LAB BLOOD ORDERABLES Performing Organization Address City/[facility] Phon e Number APS SPECTRA [facility] PATIENT INFORMATION (09/18/2020) P athologist Signature Urea Volume 41.6 L APS SPECTRA Distribution [facility] ([place]) Specimen (Source) Anatomical Collection Method Collection Time Re ceived Time Location / / Volume Laterality 09/18/2020 09/20/2020 1:50 PM CDT Narrative APS SPECTRA [facility] - 09/20/2020 Unless otherwise specified, test(s) performed at: [facility], [address] [place] [id number] RESIDENTIAL CARE FACILITY MANAGER: Yoseph Rose M.D. For any questions, please call customer service at FREQUENCY:MONTHLY Resulting Agency Comment Specimen source: PD Fluid López Mariano MD LAB BLOOD ORDERABLES Performing Organization Address City/[facility] Phon e Number APS SPECTRA [facility] PATIENT INFORMATION (09/18/2020) P athologist Signature Patient BSA 2.10 sq. M. APS SPECTRA [facility] Comment: Normalized values are calculated using t he patient's actual BSA and normalized to the average BSA of 1.73m2. Specimen (Source) Anatomical Collection Method Collection Time Re ceived Time Location / / Volume Laterality 09/18/2020 09/20/2020 10:1 2 AM CDT Narrative APS SPECTRA [facility] - 09/20/2020 Unless otherwise specified, test(s) performed at: [facility], [address] [place] [address] RESIDENTIAL CARE FACILITY MANAGER: Yoseph Rose M.D. For any questions, please call customer service at FREQUENCY:MONTHLY Resulting Agency Comment Specimen source: PD Fluid López Mariano MD LAB BLOOD ORDERABLES Performing Organization Address City/[facility] Phon e Number APS SPECTRA [facility] PATIENT INFORMATION (09/18/2020) P athologist Signature Patient Weight 99.8 APS SPECTRA [facility] Patient Height 170.0 APS SPECTRA [facility] Amputee Status NO APS SPECTRA [facility] Amputee Parts NONE APS SPECTRA [facility] Drain volume, 9,541 APS SPECTRA PDF [facility] Collection 24.0 APS SPECTRA Time, PDF [facility] Urine Volume 450 APS SPECTRA [facility] Collection 24.0 APS SPECTRA Interval, Ur [facility] Specimen (Source) Anatomical Location Collection Method / Collectio n Time Received Time / Laterality Volume 09/18/2020 09/18/2020 Narrative APS SPECTRA [facility] - 09/20/2020 Unless otherwise specified, test(s) performed at: [facility], [address] [place] [id number] RESIDENTIAL CARE FACILITY MANAGER: Yoseph Rose M.D. For any questions, please call customer service at FREQUENCY:MONTHLY Resulting Agency Comment Specimen source: PD Fluid López Mariano MD LAB BLOOD ORDERABLES Performing Organization Address City/[facility] Code Phon e Number APS SPECTRA [facility] documented in this encounter Visit Diagnoses Not on filedocumented in this encounter
--- OUTSIDE RECORDS SUMMARY | 2021-12-28 14:08 | XMS_ITS | Encounter Summary ---
:1965 Author Organization [facility] Address [address] [place] [address] Care Team Providers Name Role Phone Unavailable Primary Care Provider Unavailable Encounter Details Date Type Department Care Team Description 02/12/2021 Treatment [facility] López Awad MD [address] [place], [place] [phone] (Wo rk) Social History Tobacco Use Types Packs/Day Years Used Date Smoking Tobacco: Never Assessed Sex Assigned at Date Recorded Not on file documented as of this encounter Miscellaneous Notes Dialysis Note - López Mariano MD - 02/12/2021 12:47 PM CDT Date: Feb 12, 2021 Patient Name: Stephanie Norman : 1965 Chart #: [id number] Sex: F This patient was personally seen for a basic visit as part of routine weekly dialysis care. A reviewof the dialysis treatment, blood pressure, estimated dry weight and recent lab values was made. These were discussed with the patient and staff as necessary. Treatment Data for 02/12/2021 started at:12:07 PM Dialyzer: 160NRe Optiflux Na: 137 mEq/L Bicarb: 37 mEq/L Dialysate: 3.0 K, 2.25 Ca, 1.0 Mg, 100 Dextrose (G3231) Dialysate/Machine Temp (prescribed): 37 C Dialysate/Machine Temp (actual): 37 C BFR (prescribed): 250 BFR (actual): 250 Prescribed time: 03:00 EDW: 97 kg Access Type: Active (In Use):PDCatheter-Double Cuff Coiled/Left Lower Quadrant,CVCatheter-Tunneled/Chest Pre Dialysis Vitals (for 02/12/2021 11:45 AM ) Pre BP (sit): 125/66 Pre Wt: 99 kg Temp: 95.5 F Post Dialysis Vitals (for 02/10/2021 2:54 PM ) Post BP (sit): 122/62 Post Wt: 96.8 kg Current Dialysis Vitals (for 02/12/2021 12:33 PM ) BP (sit): 125/59 AP(-) / PROGRAM COORDINATOR EXECUTIVE EDUCATION: 185/58 Pulse: 61 Chairside data as of 02/12/2021 12:33 PM Last 3 Treatments 02/10/2021 02/07/2021 02/05/2021 EDW (kg) 97 97 97 Weight Pre (kg) 99.4 101.3 100.5 Weight Post (kg) 96.8 98.1 97.8 Dialytic Weight Loss (kg) -2.6 -3.2 -2.7 EDW Deviation (kg) -0.2 1.1 0.8 BP Sit Pre 144/76 120/58 115/60 BP Sit Post 122/62 105/55 105/52 UF Rate (mL/kg/hr) 9 11 9 Prescribed BFR 250 250 250 Average Delivered BFR 250 350 400 Prescribed Treatment Time 03:00 03:00 03:00 Actual Treatment Time 03:01 03:04 03:02 HOSPITAL ORDERLY: López Mariano MD LOCATION: [place] [id number] SCHEDULE: -W- 2nd Shift ACCESS: EDW: kg. DIALYZER: HD DURATION: NEEDLE SIZE: ANTICOAG: BATH: QB: ml/min QD: ml/min Subjective 02/12/21: She saw gen surgery at [facility], sending her up to [place] to see Dr. Hudson given PKD and future tx and [place] nephrectomies possible. She is liking HD, thinks [...] get to run. [place] [facility]ulagram now with open access. This is [...] auscultation bilaterally. Cardiovascular Regular rate. Regular rhythm. Edema - No leg edema. Access - AVF in LUE upper arm and tortuous in mid section but good t/b Medication List Medication Sig Start [...] and no changes were made. BUN mg/dL 48 (01/31/21) 70 (01/24/21) 42 (12/18/20) 52 (11/20/20) 53 (10/23/20) UREA NITROGEN (MG/DL) IN SER/PLAS - POST DIALYSIS mg/dL 18 (01/31/21) 30 (01/24/21) URR % 63 (01/31/21) 57 (01/24/21) spKt/V Gotch 1.25 (01/31/21) eKdrt/V 1.23 (01/31/21) spKt/V (Daugirdas II) 1.1500 (01/31/21) 0.9700 (01/24/21) HEMOGLOBIN (G/DL) IN BLOOD g/dL 9.9 (01/29/21) 10.6 (01/24/21) 11.2 (12/18/20) 11.5 (11/20/20) 11.4 (10/23/20) PLATELETS 1000/mcL 217 (01/24/21) 255 (02/21/20) IRON SATURATION % 23 (01/24/21) 25 (12/18/20) 32 (11/20/20) 25 (10/23/20) 19 (09/18/20) FERRITIN ng/mL 486 (01/24/21) 592 (10/23/20) 228 (07/31/20) 292 (04/24/20) 232 (01/24/20) ALBUMIN (G/DL) g/dL 3.6 (01/24/21) 3.8 (12/18/20) 4.0 (11/20/20) Sodium mEq/L 127 (01/24/21) 137 (12/18/20) 137 (11/20/20) POTASSIUM (MMOL/L) IN SER/PLAS mEq/L 4.3 (01/24/21) 3.7 (12/18/20) 3.5 (11/20/20) BICARBONATE (CO2) mEq/L 20 (01/24/21) 24 (12/18/20) 24 (11/20/20) 25 OH VITAMIN D ng/mL 11.6 (04/24/20) 19.9 (04/21/19) 25.6 (02/20/19) BUN/CREATININE (MASS RATIO) IN SER/PLAS 5.0 (01/24/21) 4.1 (12/18/20) 5.7 (11/20/20) GLUCOSE (MG/DL) IN SER/PLAS mg/dL 82 (05/08/19) VOLUME OF URINE mL 300 (12/18/20) 300 (10/23/20) 300 (10/09/20) Calcium mg/dL 8.6 (01/24/21) 9.3 (12/18/20) 9.4 (11/20/20) Calcium Phos Product 55 (01/24/21) 49 (12/18/20) 48 (11/20/20) CALCIUM (MG/DL) CORRECTED FOR ALBUMIN IN SER/PLAS mg/dL 8.9 (01/24/21) 9.5 (12/18/20) 9.4 (11/20/20) PHOSPHATE (MG/DL) IN SER/PLAS mg/dL 6.4 (01/24/21) 5.3 (12/18/20) 5.1 (11/20/20) IPTH pg/mL 778 (01/29/21) 600 (01/24/21) 493 (10/23/20) Vascular Access Assessment: Type of access: Fistulaand now PCAD, also PD catheter Fistulagram 12/2020 patent and no stenosis Impression and Plan Stable dialysis, continue same prescription Continue to work on cannulation of AVF with 2 needles, we targets new spots to try Monitor symptoms post-HD To see Dr. Hudson about hernia and have PD catheter removed Likely permanent change to HD in-center López Mariano MD [ Signed And locked electronically On 02/12/2021 at 12:50:11 PM ] Transcribed: López Mariano ( 02/12/2021 ) documented in this encounter Plan of Treatment Not on filedocumented as of this encounter Visit Diagnoses Not on filedocumented in this encounter
--- OUTSIDE RECORDS SUMMARY | 2021-12-28 14:08 | XMS_ITS | Encounter Summary ---
:1965 Author Organization [facility] Address [address] [place] [address] Care Team Providers Name Role Phone Unavailable Primary Care Provider Unavailable Encounter Details Date Type Department Care Team Description 10/23/2020 Treatment [facility] López Awad MD [address] [place], [place] [phone] (Wo rk) Social History Tobacco Use Types Packs/Day Years Used Date Smoking Tobacco: Never Assessed Sex Assigned at Date Recorded Not on file documented as of this encounter Miscellaneous Notes Dialysis Note - López Mariano MD - 10/23/2020 9:22 AM CDT Date: Oct 23, 2020 Patient Name: Stephanie Norman : 1965 Chart #: [id number] Sex: F This patient was personally seen for a complete visit as part of routine monthly dialysis care. A review of the dialysis treatment, blood pressure, estimated dry weight, and recent lab values was made.These were discussed with the patient and staff as necessary. COMMERCIAL PILOT: López Mariano MD LOCATION: [phone] SCHEDULE: No Routine Schedule Subjective Tolerating dialysis well. 10/23/20: Adequacy was low, residual function is lower, we increased prescription with last fill 1L and she is tolerating this ok but says she can feel it and would not want to increase it further for daytime dwell. 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 Cardiovascular - Regular rate. Regular rhythm. Gastrointestinal - Normal bowel sounds, soft, non-tender. Edema - No leg edema. PD catheter exit site - exit site clean with no sign of infection per tap puller List Medication Sig Start Date aspirin 81 [...] made. Treatment and Adequacy Assessment BUN mg/dL 51 (10/09/20) 47 (09/18/20) 46 (08/21/20) CREATININE (MG/DL) IN SER/PLAS mg/dL 8.50 (10/09/20) 6.67 (09/18/20) 6.71 (08/21/20) KT/V, PERITONEAL L/wk 1.38 (10/09/20) 1.06 (09/18/20) 1.01 (07/09/20) KT/V, RESIDUAL L/wk 0.31 (10/09/20) 0.46 (09/18/20) 0.82 (07/09/20) Kt/V is not adequate. Continue current prescription. Residual function lower, increased prescription with last fill of 1L added for clearance and will monitor kt/v. No overt uremia symptoms. Peritoneal Dialysis Access [...] Assessment HEMOGLOBIN (G/DL) IN BLOOD g/dL 11.4 (09/18/20) 10.5 (08/21/20) 10.8 (07/31/20) PLATELETS 1000/mcL 255 (02/21/20) WBC (BLOOD) 1000/mcL 7.52 (09/18/20) 6.48 (08/21/20) 7.10 (07/31/20) IRON SATURATION % 19 (09/18/20) 17 (08/21/20) 15 (07/31/20) FERRITIN ng/mL 228 (07/31/20) 292 (04/24/20) 232 (01/24/20) Hemoglobin is at goal. Iron Saturation is below goal. Ferritin is below goal. Will adjust FABIO and intravenous iron. Not on FABIO, had IV iron previously and re-check labs today Nutritional and Metabolic Assessment ALBUMIN (G/DL) g/dL 3.8 (09/18/20) 3.8 (08/21/20) 3.9 (07/31/20) BICARBONATE (CO2) mEq/L 22 (09/18/20) 28 (08/21/20) 27 (07/31/20) POTASSIUM (MMOL/L) IN SER/PLAS mEq/L 3.5 (09/18/20) 3.9 (08/21/20) 3.8 (07/31/20) Sodium mEq/L 137 (09/18/20) 140 (08/21/20) 140 (07/31/20) 25 OH VITAMIN D ng/mL 11.6 (04/24/20) 19.9 (04/21/19) 25.6 (02/20/19) Albumin is below goal. Encourage high biological value protein intake. Potassium is at goal. Bone and Mineral Metabolism Assessment Calcium mg/dL 8.9 (09/18/20) 8.8 (08/21/20) 9.0 (07/31/20) CALCIUM (MG/DL) CORRECTED FOR ALBUMIN IN SER/PLAS mg/dL 9.1 (09/18/20) 9.0 (08/21/20) 9.1 (07/31/20) CALCIUM PHOSPHORUS PRODUCT, COR 53 (09/18/20) 51 (08/21/20) 50 (07/31/20) PHOSPHATE (MG/DL) IN SER/PLAS mg/dL 5.2 (10/09/20) 5.8 (09/18/20) 5.7 (08/21/20) IPTH pg/mL 401 (08/21/20) 429 (07/31/20) 460 (04/24/20) Corrected calcium is at goal. Phosphorus is at goal. Intact PTH is at goal. Cardiovascular Assessment Blood pressure reviewed and is acceptable. Continue same cardiovascular medications. Estimated dry weight is too high, will decrease. Lower EDW to 215.5 lbs, at this today and appears euvolemic. using all 2.5% bags. Transplant Status Patient has been referred. [place] [facility] [place] Switched to [facility], wasn't happy with [place] and recommendations from cardi[facility] no intervention required, changed to Lipitor from Simvastatin and recommended smoking cessation (which I strongly recommend as well). She has stress test scheduled early November. Discussed smoking cessation again with her today. Resuscitation Status Additional Comments: Change in prescription for low kt/v, repeat adequacy to be completed Labs today will be reviewed, adjustments made pending results EDW lowered as above López Mariano MD [ Signed And locked electronically On 10/23/2020 at 09:27:48 AM ] Transcribed: López Mariano ( 10/23/2020 ) documented in this encounter Plan of Treatment Not on filedocumented as of this encounter Visit Diagnoses Not on filedocumented in this encounter
--- OUTSIDE RECORDS SUMMARY | 2021-12-28 14:08 | XMS_ITS | Encounter Summary ---
:1965 Author Organization [facility] Address [address] [place] [address] Care Team Providers Name Role Phone Unavailable Primary Care Provider Unavailable Encounter Details Date Type Department Care Team Description 02/19/2021 Orders Only [facility] López Awad MD [address] [place] [address] [place], [place] [phone] (Wo rk) Social History Tobacco Use Types Packs/Day Years Used Date Smoking Tobacco: Never Assessed Sex Assigned at Date Recorded Not on file documented as of this encounter Plan of Treatment Not on filedocumented as of this encounter Procedures Procedure Name Priority Date/Time Associated Diagnosis Comme nts HD KINETICS Routine 02/19/2021 Results for thi s procedure are i n the results section . POST CHEMISTRY Routine 02/19/2021 Results for t his procedure are i n the results section . IMMUNO CHEMISTRY Routine 02/19/2021 Results for this procedure are i n the results section . HEMATOLOGY Routine 02/19/2021 Results for thi s procedure are i n the results section . CHEMISTRY Routine 02/19/2021 Results for thi s procedure are i n the results section . SPECTRA [place] LAB RESULTS Routine 02/19/2021 Resul ts for this procedure are i n the results section . documented in this encounter Results Spectra [place] Lab Results (02/19/2021) P athologist Signature nPCR_HD 0.59 [place] eKdrt/V 0.98 [place] eKt/V 0.82 [place] ([place]) PCR 34.55 [place] spKt/V 0.98 [place] (Daugirdas II) eNPCR 0.54 [place] eKt/V Gotch 0.83 [place] spKt/V Gotch 1.00 [place] Specimen (Source) Anatomical Location Collection Method / Collectio n Time Received Time / Laterality Volume 02/19/2021 02/19/2021 [place] Ordering Provider LAB BLOOD ORDERABLES Performing Organization Address City/State/ZIP Code Phon e Number [place] (ABNORMAL) HD KINETICS (02/19/2021) P athologist Signature % Urea 59 (L) 65 - 80 % APS SPECTRA Reduction [facility] Specimen (Source) Anatomical Collection Method Collection Time Re ceived Time Location / / Volume Laterality 02/19/2021 02/20/2021 8:53 PM CDT Narrative APS SPECTRA [facility] - 02/21/2021 Unless otherwise specified, test(s) performed at: [facility], [address] [place] [address] WAITER/WAITRESS CAFETERIA: Yoseph Rose M.D. For any questions, please call customer service at FREQUENCY:MONTHLY Resulting Agency Comment Specimen source: Serum López Mariano MD LAB BLOOD ORDERABLES Performing Organization Address City/[facility]/ZIP Code Phon e Number APS SPECTRA [facility] IMMUNO CHEMISTRY (02/19/2021) athologist Signature Hep B Surface Negative Negative APS SPECTRA Ag [facility] Hepatitis B 84 mIU/mL APS SPECTRA Surface Ab [facility] Comment: The anti-HBs (Hepatitis B surface antibo dy) is greater than or equal to 10 mIU/mL and implies immunity. The jaziel ent has either had an antibody response to HBV vaccination, received a transfusion, or has recovered from HBV infection. For post-vaccination antibody testing guidelines for the general public, refer to MMWR Decemb 2004/Vol.54 (No. 16); 1-23, and for healthcare [...] ceived Time Location / / Volume Laterality 02/19/2021 02/20/2021 8:52 PM CDT Narrative APS SPECTRA [facility] - 02/21/2021 Unless otherwise specified, test(s) performed at: [facility], [address] [place] [address] WAITER/WAITRESS CAFETERIA: Yoseph Rose M.D. For any questions, please call customer service at FREQUENCY:MONTHLY Resulting Agency Comment Specimen source: Serum López Mariano MD LAB BLOOD ORDERABLES Performing Organization Address City/State/ZIP Code Phon e Number APS SPECTRA [facility] (ABNORMAL) Spectrae Chemistry (02/19/2021) [facility] gist Method Time Signature BUN 34 (H) 6 - 19 APS SPECTRA mg/dL [facility] Creatinine 8.26 (H) 0.60 - APS SPECTRA 1.30 mg/dL [facility] BUN/Creatinine 4.1 (L) 10.0 - APS SPECTRA Ratio 20.0 [facility] Sodium 137 136 - 145 APS SPECTRA mEq/L [facility] Potassium 4.2 3.5 - 5.1 APS SPECTRA mEq/L [facility] [...] APS SPECTRA [facility] Calcium Phosporus Product, Cor 34 0 - 54 APS SPECTRA [facility] Total Protein 6.8 6.0 - 8.5 g/dL APS SPECTRA [facility] Albumin 4.2 3.5 - 5.2 g/dL APS SPECTRA [facility] Globulin, Total 2.6 2.0 - 4.0 g/dL APS SPECT RA [facility] A/G Ratio 1.6 1.0 - 2.0 APS SPECTRA [facility] Iron 58 30 - 160 mcg/dL APS SPECTRA [place] [facility] UIBC 254 155 - 355 mcg/dL APS SPECTRA K [facility] TIBC 312 185 - 515 mcg/dL APS SPECTRA K [facility] Iron Saturation (TSat) 19 (L) 20 - 55 % APS SPE CTRA [facility] Specimen (Source) Anatomical Collection Method Collection Time Re ceived Time Location / / Volume Laterality 02/19/2021 02/20/2021 8:52 PM CDT Narrative APS SPECTRA [facility] - 02/21/2021 Unless otherwise specified, test(s) performed at: [facility], [address] [place] [id number] WAITER/WAITRESS CAFETERIA: Yoseph Rose M.D. For any questions, please call customer service at FREQUENCY:MONTHLY Resulting Agency Comment Specimen source: Serum López Mariano MD LAB BLOOD ORDERABLES Performing Organization Address City/[facility] Code Phon e Number APS SPECTRA [facility] POST CHEMISTRY (02/19/2021) P athologist Signature BUN Post 14 6 - 19 APS SPECTRA Dialysis mg/dL [facility] Specimen (Source) Anatomical Collection Method Collection Time Re ceived Time Location / / Volume Laterality 02/19/2021 02/20/2021 10:5 0 AM CDT Narrative APS SPECTRA [facility] - 02/20/2021 Unless otherwise specified, test(s) performed at: [facility], [address] [place] [address] WAITER/WAITRESS CAFETERIA: Yoseph Rose M.D. For any questions, please call customer service at FREQUENCY:MONTHLY Resulting Agency Comment Specimen source: Plasma López Mariano MD LAB BLOOD ORDERABLES Performing Organization Address City/State/ZIP Code Phon e Number APS SPECTRA [facility] (ABNORMAL) HEMATOLOGY (02/19/2021) Patholo gist Method Time Signature WBC 7.34 4.80 - APS SPECTRA 10.80 [facility] 1000/mcL RBC 3.13 (L) 4.20 - APS SPECTRA 5.40 [facility] mill/mcL Hemoglobin 10.6 (L) 12.0 - APS SPECTRA 16.0 g/dL [facility] Hemoglobin x 3 31.8 (L) 36.0 - APS SPECTRA 48.0 % [facility] Hematocrit 32.2 (L) 37.0 - APS SPECTRA 47.0 % [facility] MCV 103 (H) 80 - 100 APS SPECTRA fl [facility] MCH 34.0 (H) 27.0 - APS SPECTRA 31.0 pg [facility] MCHC 33.0 30.0 - APS SPECTRA 36.0 g/dL [facility] RDW 13.0 11.5 - APS SPECTRA 14.5 % [facility] Neutrophils 75.7 (H) 40.0 - APS SPECTRA 75.0 % [facility] Lymphocytes 13.1 (L) 19.0 - APS SPECTRA Relative 48.0 % [facility] Monocytes 6.5 3.0 - 10.0 APS SPECTRA % [facility] Eosinophils 2.9 0.0 - 7.0 APS SPECTRA Relative % [facility] Basophils 0.4 0.0 - 1.5 APS SPECTRA Relative % [facility] JESSICA 1.3 0.0 - 4.0 APS SPECTRA % [facility] Platelets 261 130 - 400 APS SPECTRA 1000/mcL [facility] Specimen (Source) Anatomical Collection Method Collection Time Re ceived Time Location / / Volume Laterality 02/19/2021 02/20/2021 9:59 AM CDT Narrative APS SPECTRA [facility] - 02/20/2021 Unless otherwise specified, test(s) performed at: [facility], [address] [place] [address] WAITER/WAITRESS CAFETERIA: Yoseph Rose M.D. For any questions, please call customer service at FREQUENCY:MONTHLY Resulting Agency Comment Specimen source: Blood López Mariano MD LAB BLOOD ORDERABLES Performing Organization Address City/State/ZIP Code Phon e Number APS SPECTRA [facility] documented in this encounter Visit Diagnoses Not on filedocumented in this encounter
--- OUTSIDE RECORDS SUMMARY | 2021-12-28 14:08 | XMS_ITS | Encounter Summary ---
:1965 Author Organization [facility] Address [address] [place] [address] Care Team Providers Name Role Phone Unavailable Primary Care Provider Unavailable Encounter Details Date Type Department Care Team Description 09/18/2020 Treatment [facility] f López Awad MD [address] [place], [place] [phone] (Wo rk) Social History Tobacco Use Types Packs/Day Years Used Date Smoking Tobacco: Never Assessed Sex Assigned at Date Recorded Not on file documented as of this encounter Miscellaneous Notes Dialysis Note - López Mariano MD - 09/18/2020 12:59 PM CDT Date: Sep 18, 2020 Patient Name: Stephanie Norman : 1965 Chart #: [id number] Sex: F This patient was personally seen for a complete visit as part of routine monthly dialysis care. A review of the dialysis treatment, blood pressure, estimated dry weight, and recent lab values was made.These were discussed with the patient and staff as necessary. MILITARY EXCHANGE WIRELESS MANAGER: López Mariano MD LOCATION: [phone] SCHEDULE: No Routine Schedule Subjective Tolerating dialysis well. 09/18: Stephanie is doing wonderful, has zero [...] he is home. 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 Regular rhythm. Gastrointestinal - Normal bowel sounds, soft, non-tender. Edema - No leg edema. PD catheter exit site - exit site clean with no sign of infection per saloonkeeper List Medication Sig Start Date aspirin 81 [...] made. Treatment and Adequacy Assessment BUN mg/dL 46 (08/21/20) 45 (07/31/20) 41 (07/09/20) CREATININE (MG/DL) IN SER/PLAS mg/dL 6.71 (08/21/20) 6.52 (07/31/20) 5.78 (07/09/20) KT/V, PERITONEAL L/wk 1.01 (07/09/20) 1.01 (04/03/20) 0.89 (01/24/20) KT/V, RESIDUAL L/wk 0.82 (07/09/20) 1.58 (04/03/20) 1.01 (01/24/20) Kt/V is adequate. Continue current prescription. Adequacy to be repeated this month, borderline but no uremia symptoms Increased PD prescription and residual also increased in 03/2020 compared to 01/2020 and now robust combined kt/v. Due for repeat adequacy, will complete this month Peritoneal Dialysis Access Assessment Placed on: 01/2019 Surgeon - Dr. Martinez at [facility] Staff and patient report [...] Anemia Assessment HEMOGLOBIN (G/DL) IN BLOOD g/dL 10.5 (08/21/20) 10.8 (07/31/20) 11.4 (07/09/20) PLATELETS 1000/mcL 255 (02/21/20) WBC (BLOOD) 1000/mcL 6.48 (08/21/20) 7.10 (07/31/20) 7.22 (06/26/20) IRON SATURATION % 17 (08/21/20) 15 (07/31/20) 15 (06/26/20) FERRITIN ng/mL 228 (07/31/20) 292 (04/24/20) 232 (01/24/20) Hemoglobin is at goal. Iron Saturation is below goal. Ferritin is below goal. Will adjust FABIO and intravenous iron. Not on FABIO, getting IV iron and then re-check iron Nutritional and Metabolic Assessment ALBUMIN (G/DL) g/dL 3.8 (08/21/20) 3.9 (07/31/20) 3.6 (06/26/20) BICARBONATE (CO2) mEq/L 28 (08/21/20) 27 (07/31/20) 29 (06/26/20) POTASSIUM (MMOL/L) IN SER/PLAS mEq/L 3.9 (08/21/20) 3.8 (07/31/20) 3.7 (06/26/20) Sodium mEq/L 140 (08/21/20) 140 (07/31/20) 142 (06/26/20) 25 OH VITAMIN D ng/mL 11.6 (04/24/20) 19.9 (04/21/19) 25.6 (02/20/19) Albumin is below goal. Encourage high biological value protein intake. Potassium is at goal. Bone and Mineral Metabolism Assessment Calcium mg/dL 8.8 (08/21/20) 9.0 (07/31/20) 8.5 (06/26/20) CALCIUM (MG/DL) CORRECTED FOR ALBUMIN IN SER/PLAS mg/dL 9.0 (08/21/20) 9.1 (07/31/20) 8.8 (06/26/20) CALCIUM PHOSPHORUS PRODUCT, COR 51 (08/21/20) 50 (07/31/20) 37 (06/26/20) PHOSPHATE (MG/DL) IN SER/PLAS mg/dL 5.7 (08/21/20) 5.5 (07/31/20) 4.2 (06/26/20) IPTH pg/mL 401 (08/21/20) 429 (07/31/20) 460 (04/24/20) Corrected calcium is at goal. Phosphorus is above goal. Intact PTH is at goal. 100% compliance with binders now and improved phos control, repeat today to see if back in range Cardiovascular Assessment Blood pressure reviewed and is acceptable. Continue same cardiovascular medications. Estimated dry weight is appropriate. Transplant Status Patient has been referred. [facility] [place] She wants to switch to [facility], wasn't happy with [place] and recommendations from cardiology after her angiogram. She saw Dr. Patel at [facility] and no intervention required, changed to Lipitor from Simvastatin and recommended smoking cessation (which I strongly recommend as well). She has now reached out andin process of changing programs. She quit smoking August 17, but started again and we counseled on importance of quitting again today Resuscitation Status Additional Comments: No changes to prescription today, no change in medications, CCPD going very well Labs drawn today Adequacy to be completed Smoking cessation is a priority, discussed today López Mariano MD [ Signed And locked electronically On 09/18/2020 at 01:01:47 PM ] Transcribed: López Mariano ( 09/18/2020 ) documented in this encounter Plan of Treatment Not on filedocumented as of this encounter Visit Diagnoses Not on filedocumented in this encounter
--- OUTSIDE RECORDS SUMMARY | 2021-12-28 14:08 | XMS_ITS | Encounter Summary ---
:1965 Author Organization [facility] Address [address] [place] [address] Care Team Providers Name Role Phone Unavailable Primary Care Provider Unavailable Encounter Details Date Type Department Care Team Description 10/09/2020 Orders Only [facility] López Awad MD [address] [place] [address] [place], [place] [phone] (Wo rk) Social History Tobacco Use Types Packs/Day Years Used Date Smoking Tobacco: Never Assessed Sex Assigned at Date Recorded Not on file documented as of this encounter Plan of Treatment Not on filedocumented as of this encounter Procedures Procedure Name Priority Date/Time Associated Diagnosis Comme nts URINE CLEARANCE Routine 10/09/2020 Results for this procedure are i n the results section . PDF CHEMISTRY Routine 10/09/2020 Results for th is procedure are i n the results section . PD ADEQUACY Routine 10/09/2020 Results for thi s procedure are i n the results section . PD ADEQUACY Routine 10/09/2020 Results for thi s procedure are i n the results section . PATIENT INFORMATION Routine 10/09/2020 Results for this procedure are i n the results section . PATIENT INFORMATION Routine 10/09/2020 Results for this procedure are i n the results section . PATIENT INFORMATION Routine 10/09/2020 Results for this procedure are i n the results section . CHEMISTRY Routine 10/09/2020 Results for thi s procedure are i n the results section . documented in this encounter Results (ABNORMAL) URINE CLEARANCE (10/09/2020) P athologist Signature Urea Nitrogen, 305 mg/dL [facility]RA Urine Timed [facility] Urea Nitrogen, 0.9 (L) 12.0 - APS SPECTRA Urine 24 Hr 20.0 g/24 [facility] hr Urea Clear, 1.0 (L) 64.0 - APS [facility]PECTRA Urine Norm 99.0 [facility] mL/min Urea Clearance, 1.2 (L) 64.0 - APS [facility]PECTRA Urine 99.0 [facility] mL/min Urea Clear, 13 L/wk [facility] Urine Norm Wkly [facility] Creatinine, 169.3 mg/dL APS [facility]PECTRA Urine Timed [facility] Creatinine, 24H 0.5 0.5 - 1.6 [facility]RA Ur g/24 hr [facility] Creatinine 4.1 mL/min [facility] Clear, Urine [facility] Creat Clear, 3.4 (L) 77.0 - [facility]RA Urine Norm 94.0 [facility] mL/min Creat Clear, 41.3 L/wk [facility] Urine Wkly [facility] Specimen (Source) Anatomical Collection Method Collection Time Re ceived Time Location / / Volume Laterality 10/09/2020 10/11/2020 8:47 AM CDT Resulting Agency Comment Specimen source: Urine López Mariano MD LAB URINE ORDERABLES Performing Organization Address City/[facility] Code Phon e Number APS SPECTRA [facility] PD ADEQUACY (10/09/2020) P athologist Signature Kt/V, Residual 0.31 [facility] Creat Clear, 34 L/wk [facility] Urine Nor Wkly [facility] Specimen (Source) Anatomical Collection Method Collection Time Re ceived Time Location / / Volume Laterality 10/09/2020 10/11/2020 8:47 AM CDT Narrative APS SPECTRA [facility] - 10/11/2020 Unless otherwise specified, test(s) performed at: [facility], [address] [place] [id number] SUPERINTENDENT LOGGING: Yoseph [place] M.D. For any questions, please call customer service at FREQUENCY:MONTHLY Resulting Agency Comment Specimen source: Urine López Mariano MD LAB BODY FLUIDS AND STOOLS O RDERABLES Performing Organization Address City/State/ZIP Code Phon e Number APS SPECTRA [facility] PDF CHEMISTRY (10/09/2020) P athologist Signature Urea Nitrogen, 4,206.6 mg/24 hr [facility] PDF 24 Hr [facility] Urea Nitrogen, 36 mg/dL [facility] PDF Timed [facility] Comment: A reference range for this assay has not been established for body fluids. If blood results are available f or this analyte, results may be interpreted in comparison to those resul ts. Urea Clearance, PD Fluid 5.7 mL/min APS S PECTRA [facility] Urea Clearance, PDF Norm 4.7 mL/min APS S PECTRA [facility] Urea Clear, Tot Norm Wkly 70 L/wk APS SPECTRA [facility] Urea Clear, PDF Norm Wkly 57 L/wk APS SPECTRA [facility] Creatinine, PDF Timed Uncor 3.5 mg/dL AP S SPECTRA [facility] Comment: A reference range for this assay has not been established for body fluids. If blood results are available f or this analyte, results may be interpreted in comparison to those resul ts. Creatinine, PDF Timed Cor 3.2 mg/dL APS SPECTRA [facility] Comment: Creatinine values have been corrected fo r glucose interference. [facility] glucose correction factor f or creatinine is 0.0002. Creatinine, PDF 24 Hr 373.9 mg/24 hr APS SPEC TRA [facility] Creatinine Clear, PDF 3.1 mL/min APS SPEC TRA [facility] Creatinine Clear, PDF Norm 2.5 mL/min APS SPECTRA [facility] Creat Clear, PDF Norm Wkly 31 L/wk APS SPECTRA [facility] Creat Clear, Tot Wkly 72 L/wk APS SPEC TRA [facility] Glucose, PDF Timed 1,304 mg/dL APS SPECTRA [facility] Comment: A reference range for this assay has not been established for body fluids. If blood results are available f or this analyte, results may be interpreted in comparison to those resul ts. Specimen (Source) Anatomical Collection Method Collection Time Re ceived Time Location / / Volume Laterality 10/09/2020 10/11/2020 8:48 AM CDT Resulting Agency Comment Specimen source: PD Fluid López Mariano MD LAB BODY FLUIDS AND STOOLS O RDERABLES Performing Organization Address City/State/ZIP Code Phon e Number APS SPECTRA [facility] PD ADEQUACY (10/09/2020) P athologist Signature Kt/V, Total 1.69 APS SPECTRA [facility] Comment: KDOQI Guidelines recommend weekly Kt/V o f >=1.7 for adults. Kt/V, Peritoneal 1.38 APS SPECTRA K [facility] Creat Clear, Tot Norm Wkly 59 L/wk APS SPECTRA [facility] Creat Clear, PDF Norm Wkly 25 L/wk APS SPECTRA [facility] PNA, Normalized 0.76 g/kg/day APS SPECTRA [facility] PNA 54 g/day APS SPECTRA [facility] Specimen (Source) Anatomical Collection Method Collection Time Re ceived Time Location / / Volume Laterality 10/09/2020 10/11/2020 8:48 AM CDT Narrative APS SPECTRA [facility] - 10/11/2020 Unless otherwise specified, test(s) performed at: [facility], [address] [place], [place] [id number] SUPERINTENDENT LOGGING: Yoseph [place] M.D. For any questions, please call customer service at FREQUENCY:MONTHLY Resulting Agency Comment Specimen source: PD Fluid López Mariano MD LAB BODY FLUIDS AND STOOLS O RDERABLES Performing Organization Address City/[facility]/ZIP Code Phon e Number APS SPECTRA [facility] PATIENT INFORMATION (10/09/2020) P athologist Signature Urea Volume 41.4 L APS SPECTRA Distribution [facility] (Ryan) Specimen (Source) Anatomical Collection Method Collection Time Re ceived Time Location / / Volume Laterality 10/09/2020 10/11/2020 8:48 AM CDT Narrative APS SPECTRA [facility] - 10/11/2020 Unless otherwise specified, test(s) performed at: [facility], [address] [place] [id number] SUPERINTENDENT LOGGING: Yoseph [place] M.D. For any questions, please call customer service at FREQUENCY:MONTHLY Resulting Agency Comment Specimen source: PD Fluid López Mariano MD LAB BLOOD ORDERABLES Performing Organization Address City/State/ZIP Code Phon e Number APS SPECTRA [facility] (ABNORMAL) [facility]rae Chemistry (10/09/2020) Analysis Performed At Patho logist Time Signature BUN 51 (H) 6 - 19 APS SPECTRA mg/dL [facility] Creatinine 8.50 (H) 0.60 - APS SPECTRA 1.30 mg/dL [facility] BUN/Creatinine 6.0 (L) 10.0 - APS SPECTRA Ratio 20.0 [facility] Phosphorus 5.2 (H) 2.6 - 4.5 APS SPECTRA mg/dL [facility] Specimen (Source) Anatomical Collection Method Collection Time Re ceived Time Location / / Volume Laterality 10/09/2020 10/11/2020 7:10 AM CDT Resulting Agency Comment Specimen source: Serum López Mariano MD LAB BLOOD ORDERABLES Performing Organization Address City/State/ZIP Code Phon e Number APS SPECTRA [facility] PATIENT INFORMATION (10/09/2020) athologist Signature Patient BSA 2.09 sq. M. APS SPECTRA [facility] Comment: Normalized values are calculated using t he patient's actual BSA and normalized to the average BSA of 1.73m2. Specimen (Source) Anatomical Collection Method Collection Time Re ceived Time Location / / Volume Laterality 10/09/2020 10/11/2020 7:10 AM CDT Narrative APS SPECTRA [facility] - 10/11/2020 Unless otherwise specified, test(s) performed at: [facility], [address] [place] [id number] SUPERINTENDENT LOGGING: Yoseph [place] M.D. For any questions, please call customer service at FREQUENCY:MONTHLY Resulting Agency Comment Specimen source: PD Fluid López Mariano MD LAB BLOOD ORDERABLES Performing Organization Address City/[facility] Phon e Number APS SPECTRA [facility] PATIENT INFORMATION (10/09/2020) athologist Signature Patient Weight 98.6 APS SPECTRA [facility] Patient Height 170.0 APS SPECTRA [facility] Amputee Status NO APS SPECTRA [facility] Amputee Parts NONE APS SPECTRA [facility] Drain volume, 11,685 APS [facility] PDF [facility] Collection 24.0 APS [facility]RA Time, PDF [facility] Urine Volume 300 APS SPECTRA [facility] Collection 24.0 APS SPECTRA Interval, Ur [facility] Specimen (Source) Anatomical Location Collection Method / Collectio n Time Received Time / Laterality Volume 10/09/2020 10/09/2020 Narrative APS SPECTRA [facility] - 10/11/2020 Unless otherwise specified, test(s) performed at: [facility], [address] [place] [id number] SUPERINTENDENT LOGGING: Yoseph [place] M.D. For any questions, please call customer service at FREQUENCY:MONTHLY Resulting Agency Comment Specimen source: PD Fluid López Mariano MD LAB BLOOD ORDERABLES Performing Organization Address City/State/ZIP Code Phon e Number APS SPECTRA [facility] documented in this encounter Visit Diagnoses Not on filedocumented in this encounter
--- OUTSIDE RECORDS SUMMARY | 2021-12-28 14:09 | XMS_ITS | Encounter Summary ---
:1965 Author Organization [facility] Address [address] [place] [address] Care Team Providers Name Role Phone Unavailable Primary Care Provider Unavailable Encounter Details Date Type Department Care Team Description 03/20/2020 Treatment [facility] López Awad MD [address] [place], [place] [phone] (Wo rk) Social History Tobacco Use Types Packs/Day Years Used Date Smoking Tobacco: Never Assessed Sex Assigned at Date Recorded Not on file documented as of this encounter Miscellaneous Notes Dialysis Note - López Mariano MD - 03/20/2020 11:39 AM CST Date: Mar 20, 2020 Patient Name: Stephanie Norman : 1965 Chart #: [id number] Sex: F This patient was personally seen for a complete visit as part of routine monthly dialysis care. A review of the dialysis treatment, blood pressure, estimated dry weight, and recent lab values was made.These were discussed with the patient and staff as necessary. PROJECTION TECHNICIAN: López Mariano MD LOCATION: [phone] SCHEDULE: No Routine Schedule Subjective Tolerating dialysis well. 03/20: Her son tried to light the [...] he is home. 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 1 tab with snacks simvastatin 10 mg tablet 1 tablet by mouth at bedtime. take 1 tablet by mouth at bedtime torsemide 20 mg tablet Take 2 tablet by mouth once a day trazodone 50 mg tablet Take 1/2 tablet by mouth at bedtime as needed. Take as needed for sleep aide. Allergy List Allergen Reaction Reaction Severity Onset Date neomycin Skin rash PENICILLINS Skin rash Medications reviewed and no changes were made. Treatment and Adequacy Assessment BUN mg/dL 39 (02/21/20) 29 (01/24/20) 48 (12/20/19) CREATININE (MG/DL) IN SER/PLAS mg/dL 4.80 (02/21/20) 4.82 (01/24/20) 6.30 (12/20/19) KT/V, PERITONEAL L/wk 0.89 (01/24/20) 0.94 (10/25/19) 0.77 (08/07/19) KT/V, RESIDUAL L/wk 1.01 (01/24/20) 1.29 (10/25/19) 1.95 (08/07/19) Kt/V is adequate. Continue current prescription. kt/v >1.8 but <2.0. We increased fluid in each bag and will repeat kt/v combined per protocol.She has no uremia symptoms. Peritoneal Dialysis Access Assessment Placed on: 01/2019 Surgeon - Dr. Martinez at [facility] Staff and patient [...] Anemia Assessment HEMOGLOBIN (G/DL) IN BLOOD g/dL 11.7 (02/21/20) 11.9 (01/24/20) 11.4 (12/20/19) PLATELETS 1000/mcL 255 (02/21/20) WBC (BLOOD) 1000/mcL 6.12 (02/21/20) 7.89 (01/24/20) 6.88 (12/20/19) IRON SATURATION % 28 (02/21/20) 24 (01/24/20) 19 (12/20/19) FERRITIN ng/mL 232 (01/24/20) 309 (10/25/19) 147 (07/26/19) Hemoglobin is at goal. Iron Saturation is below goal. Ferritin is below goal. Not on FABIO Nutritional and Metabolic Assessment ALBUMIN (G/DL) g/dL 3.8 (02/21/20) 3.9 (01/24/20) 3.9 (12/20/19) BICARBONATE (CO2) mEq/L 23 (02/21/20) 24 (01/24/20) 24 (12/20/19) POTASSIUM (MMOL/L) IN SER/PLAS mEq/L 3.8 (02/21/20) 3.6 (01/24/20) 3.8 (12/20/19) Sodium mEq/L 139 (02/21/20) 141 (01/24/20) 140 (12/20/19) 25 OH VITAMIN D ng/mL 19.9 (04/21/19) 25.6 (02/20/19) Albumin is below goal. Encourage high biological value protein intake. Potassium is at goal. Bone and Mineral Metabolism Assessment Calcium mg/dL 8.8 (02/21/20) 8.8 (01/24/20) 8.9 (12/20/19) CALCIUM (MG/DL) CORRECTED FOR ALBUMIN IN SER/PLAS mg/dL 9.0 (02/21/20) 8.9 (01/24/20) 9.0 (12/20/19) CALCIUM PHOSPHORUS PRODUCT, COR 41 (02/21/20) 37 (01/24/20) 50 (12/20/19) PHOSPHATE (MG/DL) IN SER/PLAS mg/dL 4.6 (02/21/20) 4.2 (01/24/20) 5.5 (12/20/19) IPTH pg/mL 482 (01/24/20) 373 (10/25/19) 273 (07/26/19) Corrected calcium is at goal. Phosphorus is at goal. Intact PTH is at goal. 100% compliance with binders now and improved phos control Cardiovascular Assessment Blood pressure reviewed and is acceptable. Continue same cardiovascular medications. Estimated dry weight is too high, will decrease. Decrease EDW to 101 Kg, monitor wt Transplant Status Patient has been referred. [place] [facility] She wants to switch to [facility], wasn't happy with [facility] and recommendations from cardiology after her angiogram. She saw Dr. Patel at [facility] and no intervention required, changed to Lipitor from Simvastatin and recommended smoking cessation (which I strongly recommend as well) Resuscitation Status Additional Comments: No changes to PD beside increase in fluid last month and slight decrease in EDW Smoking cessation a priority She wants to change Tx centers to [facility], needs to check with insurance and initiate process if approved by [facility] López Mariano MD [ Signed And locked electronically On 03/20/2020 at 11:46:44 AM ] Transcribed: López Mariano ( 03/20/2020 ) documented in this encounter Plan of Treatment Not on filedocumented as of this encounter Visit Diagnoses Not on filedocumented in this encounter
--- OUTSIDE RECORDS SUMMARY | 2021-12-28 14:09 | XMS_ITS | Encounter Summary ---
:1965 Author Organization [facility] Address [address] [place] [address] Care Team Providers Name Role Phone Unavailable Primary Care Provider Unavailable Encounter Details Date Type Department Care Team Description 05/22/2020 Treatment [facility] López Awad MD [address] [place], [place] [phone] (Wo rk) Social History Tobacco Use Types Packs/Day Years Used Date Smoking Tobacco: Never Assessed Sex Assigned at Date Recorded Not on file documented as of this encounter Miscellaneous Notes Dialysis Note - López Marinao MD - 05/22/2020 11:57 AM CST Date: May 22, 2020 Patient Name: Stephanie Norman : 1965 Chart #: [id number] Sex: F This patient was personally seen for a complete visit as part of routine monthly dialysis care. A review of the dialysis treatment, blood pressure, estimated dry weight, and recent lab values was made.These were discussed with the patient and staff as necessary. BATCH PLANT SUPERVISOR: López Mariano MD LOCATION: [phone] SCHEDULE: No Routine Schedule Subjective Tolerating dialysis well. 05/22: Stephanie is doing really well and [...] he is home. 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 Edema - Trace edema. stable PD catheter exit site - exit site [...] Treatment and Adequacy Assessment BUN mg/dL 45 (04/24/20) 39 (04/03/20) 52 (03/20/20) CREATININE (MG/DL) IN SER/PLAS mg/dL 6.38 (04/24/20) 5.27 (04/03/20) 5.46 (03/20/20) KT/V, PERITONEAL L/wk 1.01 (04/03/20) 0.89 (01/24/20) 0.94 (10/25/19) KT/V, RESIDUAL L/wk 1.58 (04/03/20) 1.01 (01/24/20) 1.29 (10/25/19) Kt/V is adequate. Continue current prescription. Increased PD prescription and residual also increased in 03/2020 compared to 01/2020 and now robust combined kt/v. Will make no changes Peritoneal Dialysis Access Assessment Placed on: 01/2019 Surgeon - Dr. Martinez at [facility] Staff and patient report access is working [...] Anemia Assessment HEMOGLOBIN (G/DL) IN BLOOD g/dL 11.8 (04/24/20) 12.5 (03/20/20) 11.7 (02/21/20) PLATELETS 1000/mcL 255 (02/21/20) WBC (BLOOD) 1000/mcL 6.34 (04/24/20) 9.37 (03/20/20) 6.12 (02/21/20) IRON SATURATION % 19 (04/24/20) 21 (03/20/20) 28 (02/21/20) FERRITIN ng/mL 292 (04/24/20) 232 (01/24/20) 309 (10/25/19) Hemoglobin is at goal. Iron Saturation is below goal. Ferritin is below goal. Will adjust FABIO and intravenous iron. Not on FABIO Nutritional and Metabolic Assessment ALBUMIN (G/DL) g/dL 4.2 (04/24/20) 4.0 (03/20/20) 3.8 (02/21/20) BICARBONATE (CO2) mEq/L 26 (04/24/20) 25 (03/20/20) 23 (02/21/20) POTASSIUM (MMOL/L) IN SER/PLAS mEq/L 4.0 (04/24/20) 4.0 (03/20/20) 3.8 (02/21/20) Sodium mEq/L 140 (04/24/20) 138 (03/20/20) 139 (02/21/20) 25 OH VITAMIN D ng/mL 11.6 (04/24/20) 19.9 (04/21/19) 25.6 (02/20/19) Albumin is at goal. Encourage high biological value protein intake. Potassium is at goal. Bone and Mineral Metabolism Assessment Calcium mg/dL 9.3 (04/24/20) 9.0 (04/03/20) 8.8 (02/21/20) CALCIUM (MG/DL) CORRECTED FOR ALBUMIN IN SER/PLAS mg/dL 9.1 (04/24/20) 9.0 (02/21/20) 8.9 (01/24/20) CALCIUM PHOSPHORUS PRODUCT, COR 50 (04/24/20) 41 (02/21/20) 37 (01/24/20) PHOSPHATE (MG/DL) IN SER/PLAS mg/dL 5.5 (04/24/20) 4.4 (03/20/20) 4.6 (02/21/20) IPTH pg/mL 460 (04/24/20) 482 (01/24/20) 373 (10/25/19) Corrected calcium is at goal. Phosphorus is at goal. Intact PTH is at goal. 100% compliance with binders now and improved phos control Cardiovascular Assessment Blood pressure reviewed and is acceptable. Continue same cardiovascular medications. Estimated dry weight is appropriate. Transplant Status Patient has been referred. [facility] - [facility] She wants to switch to [facility], wasn't happy with [facility] and recommendations from cardiology after her angiogram. She saw Dr. Patel at [facility] and no intervention required, changed to Lipitor from Simvastatin and recommended smoking cessation (which I strongly recommend as well). She has stopped smoking now. Insurance apparently requires [place] for [facility] transplant program and she will inquire further and seeif they can send me paperwork regarding this. Resuscitation Status Additional Comments: No changes to prescription Labs today, will review when back and make any adjustments necessary López Mariano MD [ Signed And locked electronically On 05/22/2020 at 11:59:39 AM ] Transcribed: López Mariano ( 05/22/2020 ) documented in this encounter Plan of Treatment Not on filedocumented as of this encounter Visit Diagnoses Not on filedocumented in this encounter
--- OUTSIDE RECORDS SUMMARY | 2021-12-28 14:09 | XMS_ITS | Encounter Summary ---
:1965 Author Organization [facility] Address [address] [place] [address] Care Team Providers Name Role Phone Unavailable Primary Care Provider Unavailable Encounter Details Date Type Department Care Team Description 01/24/2020 Treatment [facility] López Awad MD [address] [place], [place] [phone] (Wo rk) Social History Tobacco Use Types Packs/Day Years Used Date Smoking Tobacco: Never Assessed Sex Assigned at Date Recorded Not on file documented as of this encounter Miscellaneous Notes Dialysis Note - López Mariano MD - 01/24/2020 11:38 AM CDT Date: Jan 24, 2020 Patient Name: Stephanie Norman : 1965 Chart #: [id number] Sex: F This patient was personally seen for a complete visit as part of routine monthly dialysis care. A review of the dialysis treatment, blood pressure, estimated dry weight, and recent lab values was made.These were discussed with the patient and staff as necessary. SAFE AND VAULT INSTALLER: López Mariano MD LOCATION: [phone] SCHEDULE: No Routine Schedule Subjective Tolerating dialysis well. 01/23: Still with difficult home situation with [...] he is home. 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 Edema - Trace edema. PD catheter exit site - exit site clean per clergy member List Medication Sig Start Date aspirin 81 [...] Renvela (sevelamer carbonate) 800 mg tablet Take 2 tablet by mouth three times a day [...] Treatment and Adequacy Assessment BUN mg/dL 48 (12/20/19) 44 (11/22/19) 48 (10/25/19) CREATININE (MG/DL) IN SER/PLAS mg/dL 6.30 (12/20/19) 5.80 (11/22/19) 5.60 (10/25/19) KT/V, PERITONEAL L/wk 0.94 (10/25/19) 0.77 (08/07/19) 0.80 (04/21/19) KT/V, RESIDUAL L/wk 1.29 (10/25/19) 1.95 (08/07/19) 2.04 (04/21/19) Kt/V is adequate. Continue current prescription. kt/v residual is lower but still excellent total kt/v. No changes needed. She has no uremia symptoms. Adequacy to be repeated today Peritoneal Dialysis Access Assessment Placed on: 01/2019 Surgeon - Dr. Martinez at [facility] [place] Staff and patient report access is working [...] Assessment HEMOGLOBIN (G/DL) IN BLOOD g/dL 11.4 (12/20/19) 11.8 (11/22/19) 12.6 (10/25/19) WBC (BLOOD) 1000/mcL 6.88 (12/20/19) 5.57 (11/22/19) 6.80 (10/25/19) IRON SATURATION % 19 (12/20/19) 25 (11/22/19) 20 (10/25/19) FERRITIN ng/mL 309 (10/25/19) 147 (07/26/19) 168 (04/21/19) Hemoglobin is at goal. Iron Saturation is below goal. Ferritin is below goal. Not on FABIO Re-check iron Nutritional and Metabolic Assessment ALBUMIN (G/DL) g/dL 3.9 (12/20/19) 3.8 (11/22/19) 4.0 (10/25/19) BICARBONATE (CO2) mEq/L 24 (12/20/19) 26 (11/22/19) 26 (10/25/19) POTASSIUM (MMOL/L) IN SER/PLAS mEq/L 3.8 (12/20/19) 4.2 (11/22/19) 4.2 (10/25/19) Sodium mEq/L 140 (12/20/19) 142 (11/22/19) 141 (10/25/19) 25 OH VITAMIN D ng/mL 19.9 (04/21/19) 25.6 (02/20/19) Albumin is below goal. Encourage high biological value protein intake. Potassium is at goal. Bone and Mineral Metabolism Assessment Calcium mg/dL 8.9 (12/20/19) 9.0 (11/22/19) 9.3 (10/25/19) CALCIUM (MG/DL) CORRECTED FOR ALBUMIN IN SER/PLAS mg/dL 9.0 (12/20/19) 9.2 (11/22/19) 9.3 (10/25/19) CALCIUM PHOSPHORUS PRODUCT, COR 50 (12/20/19) 52 (11/22/19) 60 (10/25/19) PHOSPHATE (MG/DL) IN SER/PLAS mg/dL 5.5 (12/20/19) 5.6 (11/22/19) 6.5 (10/25/19) IPTH pg/mL 373 (10/25/19) 273 (07/26/19) 270 (04/21/19) Corrected calcium is at goal. Phosphorus is above goal. Intact PTH is at goal. 100% compliance with binders now and re-check labs today Cardiovascular Assessment Blood pressure reviewed and is acceptable. Continue same cardiovascular medications. Estimated dry weight is appropriate. Transplant Status Patient has been referred. Center - [facility] Needed to quit smoking for 3 months (she quit in August 2019), then needed angiogram (done, no stent required as previously thought), now not on list however due to cardiac function with recommendation for exercise program and repeat VO2 max and stress testing in 03/2020 by [facility]. Resuscitation Status Additional Comments: No changes to PD prescription, adequacy today and labs today I will refer to local conference director as asked by [facility] Transplant team López Mariano MD [ Signed And locked electronically On 01/24/2020 at 11:41:56 AM ] Transcribed: López Mariano ( 01/24/2020 ) documented in this encounter Plan of Treatment Not on filedocumented as of this encounter Visit Diagnoses Not on filedocumented in this encounter
--- OUTSIDE RECORDS SUMMARY | 2021-12-28 14:09 | XMS_ITS | Encounter Summary ---
:1965 Author Organization [facility] Address [address] [place] [address] Care Team Providers Name Role Phone Unavailable Primary Care Provider Unavailable Encounter Details Date Type Department Care Team Description 07/09/2020 Orders Only [facility] López Awad MD [phone] [place] [address] [place], [place] [phone] (Wo rk) Social History Tobacco Use Types Packs/Day Years Used Date Smoking Tobacco: Never Assessed Sex Assigned at Date Recorded Not on file documented as of this encounter Plan of Treatment Not on filedocumented as of this encounter Procedures Procedure Name Priority Date/Time Associated Diagnosis Comme nts URINE CLEARANCE Routine 07/09/2020 Results for this procedure are i n the results section . PDF CHEMISTRY Routine 07/09/2020 Results for th is procedure are i n the results section . PD ADEQUACY Routine 07/09/2020 Results for thi s procedure are i n the results section . PD ADEQUACY Routine 07/09/2020 Results for thi s procedure are i n the results section . PATIENT INFORMATION Routine 07/09/2020 Results for this procedure are i n the results section . PATIENT INFORMATION Routine 07/09/2020 Results for this procedure are i n the results section . PATIENT INFORMATION Routine 07/09/2020 Results for this procedure are i n the results section . HEMATOLOGY Routine 07/09/2020 Results for thi s procedure are i n the results section . CHEMISTRY Routine 07/09/2020 Results for thi s procedure are i n the results section . documented in this encounter Results (ABNORMAL) URINE CLEARANCE (07/09/2020) P athologist Signature Urea Nitrogen, 297 mg/dL APS [facility]PECTRA Urine Timed [facility] Urea Nitrogen, 2.0 (L) 12.0 - [facility] Urine 24 Hr 20.0 g/24 [facility] hr Urea Clear, 2.8 (L) 64.0 - A[facility]RA Urine Norm 99.0 [facility] mL/min Urea Clearance, 3.4 (L) 64.0 - [facility] Urine 99.0 [facility] mL/min Urea Clear, 34 L/wk [facility] Urine Norm Wkly [facility] Creatinine, 119.0 mg/dL [facility] Urine Timed [facility] Creatinine, 24H 0.8 0.5 - 1.6 [facility] Ur g/24 hr [facility] Creatinine 9.7 mL/min [facility] Clear, Urine [facility] Creat Clear, 7.9 (L) 77.0 - [facility] Urine Norm 94.0 [facility] mL/min Creat Clear, 97.8 L/wk [facility] Urine Wkly [facility] Specimen (Source) Anatomical Collection Method Collection Time Re ceived Time Location / / Volume Laterality 07/09/2020 07/12/2020 10:3 9 AM CDT Resulting Agency Comment Specimen source: Urine López Mariano MD LAB URINE ORDERABLES Performing Organization Address City/State/ZIP Code Phon e Number APS SPECTRA [facility] PD ADEQUACY (07/09/2020) athologist Signature Kt/V, Residual 0.82 [facility] Creat Clear, 80 L/wk [facility] Urine Nor Wkly [facility] Specimen (Source) Anatomical Collection Method Collection Time Re ceived Time Location / / Volume Laterality 07/09/2020 07/12/2020 10:3 9 AM CDT Narrative APS SPECTRA [facility] - 07/12/2020 Unless otherwise specified, test(s) performed at: [facility], [address] [place] [address] PHYSICAL THERAPY TECHNICIAN: Yoseph Rose M.D. For any questions, please call customer service at FREQUENCY:MONTHLY Resulting Agency Comment Specimen source: Urine López Mariano MD LAB BODY FLUIDS AND STOOLS O RDERABLES Performing Organization Address City/State/ZIP Code Phon e Number APS SPECTRA [facility] PDF CHEMISTRY (07/09/2020) P athologist Signature Urea Nitrogen, 2,494.5 mg/24 hr [facility] PDF 24 Hr [facility] Urea Nitrogen, 27 mg/dL [facility] PDF Timed [facility] Comment: A reference range for this assay has not been established for body fluids. If blood results are available f or this analyte, results may be interpreted in comparison to those resul ts. Urea Clearance, PD Fluid 4.2 mL/min APS S PECTRA [facility] Urea Clearance, PDF Norm 3.5 mL/min APS S PECTRA [facility] Urea Clear, PDF Norm Wkly 42 L/wk APS SPECTRA [facility] Creatinine, PDF Timed Uncor 2.2 mg/dL AP S SPECTRA [facility] Comment: A reference range for this assay has not been established for body fluids. If blood results are available f or this analyte, results may be interpreted in comparison to those resul ts. Urea Clear, Tot Norm Wkly 76 L/wk [facility]PS [facility] Creatinine, PDF Timed Cor 1.9 mg/dL APS [facility] Comment: Creatinine values have been corrected fo r glucose interference. [facility] glucose correction factor f or creatinine is 0.0002. Creatinine, PDF 24 Hr 175.5 mg/24 hr APS SPEC TRA [facility] Creatinine Clear, PDF 2.1 mL/min APS SPEC TRA [facility] Creatinine Clear, PDF Norm 1.7 mL/min APS SPECTRA [facility] Creat Clear, PDF Norm Wkly 21 L/wk APS SPECTRA [facility] Creat Clear, Tot Wkly 119 L/wk APS SPEC TRA [facility] Glucose, PDF Timed 1,414 mg/dL APS SPECTRA [facility] Comment: A reference range for this assay has not been established for body fluids. If blood results are available f or this analyte, results may be interpreted in comparison to those resul ts. Specimen (Source) Anatomical Collection Method Collection Time Re ceived Time Location / / Volume Laterality 07/09/2020 07/12/2020 11:1 5 AM CDT Resulting Agency Comment Specimen source: PD Fluid López Mariano MD LAB BODY FLUIDS AND STOOLS O RDERABLES Performing Organization Address City/State/ZIP Code Phon e Number APS SPECTRA [facility] PD ADEQUACY (07/09/2020) P athologist Signature Kt/V, 1.01 APS SPECTRA Peritoneal [facility] Kt/V, Total 1.83 APS S[facility]RA [facility] Comment: KDOQI Guidelines recommend weekly Kt/V o f >=1.7 for adults. Creat Clear, Tot Norm Wkly 97 L/wk APS SPECTRA [facility] Creat Clear, PDF Norm Wkly 17 L/wk APS SPECTRA [facility] PNA, Normalized 0.68 g/kg/day APS SPECTRA [place] [facility]N PNA 49 g/day APS SPECTRA [facility] Specimen (Source) Anatomical Collection Method Collection Time Re ceived Time Location / / Volume Laterality 07/09/2020 07/12/2020 11:1 5 AM CDT Narrative APS SPECTRA [facility] - 07/12/2020 Unless otherwise specified, test(s) performed at: [facility], [address] [place], [place] [id number] PHYSICAL THERAPY TECHNICIAN: Yoseph Rose M.D. For any questions, please call customer service at FREQUENCY:MONTHLY Resulting Agency Comment Specimen source: PD Fluid López Mariano MD LAB BODY FLUIDS AND STOOLS O RDERABLES Performing Organization Address City/[facility] Phon e Number APS SPECTRA [facility] (ABNORMAL) Spectrae Chemistry (07/09/2020) Analysis Performed At Patho logist Time Signature BUN 41 (H) 6 - 19 APS SPECTRA mg/dL [facility] Creatinine 5.78 (H) 0.60 - APS SPECTRA 1.30 mg/dL [facility] BUN/Creatinine 7.1 (L) 10.0 - APS SPECTRA Ratio 20.0 [facility] Specimen (Source) Anatomical Collection Method Collection Time Re ceived Time Location / / Volume Laterality 07/09/2020 07/12/2020 12:0 7 PM CDT Narrative APS SPECTRA [facility] - 07/12/2020 Unless otherwise specified, test(s) performed at: [facility], [address] [place] [id number] PHYSICAL THERAPY TECHNICIAN: Yoseph Rose M.D. For any questions, please call customer service at FREQUENCY:MONTHLY Resulting Agency Comment Specimen source: Serum López Mariano MD LAB BLOOD ORDERABLES Performing Organization Address [facility] Phon e Number APS SPECTRA [facility] (ABNORMAL) HEMATOLOGY (07/09/2020) Analysis Performed At Patho logist Time Signature Hemoglobin 11.4 (L) 12.0 - APS SPECTRA 16.0 g/dL [facility] Hemoglobin x 3 34.2 (L) 36.0 - APS SPECTRA 48.0 % [facility] Specimen (Source) Anatomical Collection Method Collection Time Re ceived Time Location / / Volume Laterality 07/09/2020 07/12/2020 11:1 1 AM CDT Narrative APS SPECTRA [facility] - 07/12/2020 Unless otherwise specified, test(s) performed at: [facility], [address] [place] [address] PHYSICAL THERAPY TECHNICIAN: Yoseph Rose M.D. For any questions, please call customer service at FREQUENCY:MONTHLY Resulting Agency Comment Specimen source: Blood López Mariano MD LAB BLOOD ORDERABLES Performing Organization Address City/[facility] Phon e Number APS SPECTRA [facility] PATIENT INFORMATION (07/09/2020) athologist Signature Urea Volume 41.7 L APS SPECTRA Distribution [facility] ([place]) Specimen (Source) Anatomical Collection Method Collection Time Re ceived Time Location / / Volume Laterality 07/09/2020 07/12/2020 11:1 5 AM CDT Narrative APS SPECTRA [facility] - 07/12/2020 Unless otherwise specified, test(s) performed at: [facility], [address] [place], [place] [id number] PHYSICAL THERAPY TECHNICIAN: Yoseph Rose M.D. For any questions, please call customer service at FREQUENCY:MONTHLY Resulting Agency Comment Specimen source: PD Fluid López Mariano MD LAB BLOOD ORDERABLES Performing Organization Address City/State/ZIP Code Phon e Number APS SPECTRA [facility] PATIENT INFORMATION (07/09/2020) P athologist Signature Patient BSA 2.11 sq. M. APS SPECTRA [facility] Comment: Normalized values are calculated using t he patient's actual BSA and normalized to the average BSA of 1.73m2. Specimen (Source) Anatomical Collection Method Collection Time Re ceived Time Location / / Volume Laterality 07/09/2020 07/12/2020 12:0 7 PM CDT Narrative APS SPECTRA [facility] - 07/12/2020 Unless otherwise specified, test(s) performed at: [facility], [address] [place] [address] PHYSICAL THERAPY TECHNICIAN: Yoseph Rose M.D. For any questions, please call customer service at FREQUENCY:MONTHLY Resulting Agency Comment Specimen source: PD Fluid López Mariano MD LAB BLOOD ORDERABLES Performing Organization Address City/[facility] Phon e Number APS SPECTRA [facility] PATIENT INFORMATION (07/09/2020) P athologist Signature Patient Weight 100.2 APS SPECTRA [facility] Patient Height 170.0 APS SPECTRA [facility] Amputee Status NO [facility]PS [facility]PECT[facility] Amputee Parts NONE [facility]PS SPECT[facility] Drain volume, 9,239 [facility] PDF [facility] Collection 24.0 [facility] Time, PDF [facility] Urine Volume 675 APS SPECTRA [facility] Collection 24.0 APS [facility]PECTRA Interval, Ur [facility] Specimen (Source) Anatomical Location Collection Method / Collectio n Time Received Time / Laterality Volume 07/09/2020 07/09/2020 Narrative APS SPECTRA [facility] - 07/12/2020 Unless otherwise specified, test(s) performed at: [facility], [address] [place] [id number] PHYSICAL THERAPY TECHNICIAN: Yoseph Rose M.D. For any questions, please call customer service at FREQUENCY:MONTHLY Resulting Agency Comment Specimen source: PD Fluid López Mariano MD LAB BLOOD ORDERABLES Performing Organization Address City/[facility] Phon e Number APS SPECTRA [facility] documented in this encounter Visit Diagnoses Not on filedocumented in this encounter
--- OUTSIDE RECORDS SUMMARY | 2021-12-28 14:09 | XMS_ITS | Encounter Summary ---
:1965 Author Organization [facility] Address [address] [place] [address] Care Team Providers Name Role Phone Unavailable Primary Care Provider Unavailable Encounter Details Date Type Department Care Team Description 04/24/2020 Treatment [facility] López Awad MD [address] [place], [place] [phone] (Wo rk) Social History Tobacco Use Types Packs/Day Years Used Date Smoking Tobacco: Never Assessed Sex Assigned at Date Recorded Not on file documented as of this encounter Miscellaneous Notes Dialysis Note - López Mariano MD - 04/24/2020 10:24 AM CST Date: Apr 24, 2020 Patient Name: Stephanie Norman : 1965 Chart #: [id number] Sex: F This patient was personally seen for a complete visit as part of routine monthly dialysis care. A review of the dialysis treatment, blood pressure, estimated dry weight, and recent lab values was made.These were discussed with the patient and staff as necessary. FITNESS AND WELLNESS INSTRUCTOR: López Mariano MD LOCATION: [phone] SCHEDULE: No Routine Schedule Subjective Tolerating dialysis well. 04/24: Stephanie is doing great. She is [...] he is home. 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 Continue current prescription. Increased PD prescription and residual also increased in 03/2020 compared to 01/2020 and now robust combined kt/v. Will make no changes Peritoneal Dialysis Access Assessment Placed on: 01/2019 Sur[place] [facility] [place] and patient report access is working [...] Anemia Assessment HEMOGLOBIN (G/DL) IN BLOOD g/dL 12.5 (03/20/20) 11.7 (02/21/20) 11.9 (01/24/20) PLATELETS 1000/mcL 255 (02/21/20) WBC (BLOOD) 1000/mcL 9.37 (03/20/20) 6.12 (02/21/20) 7.89 (01/24/20) IRON SATURATION % 21 (03/20/20) 28 (02/21/20) 24 (01/24/20) FERRITIN ng/mL 232 (01/24/20) 309 (10/25/19) 147 (07/26/19) Hemoglobin is at goal. Iron Saturation is below goal. Ferritin is below goal. 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 Encourage high biological value protein intake. Potassium is at goal. Re-check Mg and K with cramps, if low then allow more higher potassium foods as she is restricting in diet Bone and Mineral Metabolism Assessment Calcium mg/dL 9.0 (04/03/20) 8.8 (02/21/20) 8.8 (01/24/20) CALCIUM (MG/DL) CORRECTED FOR ALBUMIN IN SER/PLAS mg/dL 9.0 (02/21/20) 8.9 (01/24/20) 9.0 (12/20/19) CALCIUM PHOSPHORUS PRODUCT, COR 41 (02/21/20) 37 (01/24/20) 50 (12/20/19) PHOSPHATE (MG/DL) IN SER/PLAS mg/dL 4.4 (03/20/20) 4.6 (02/21/20) 4.2 (01/24/20) IPTH pg/mL 482 (01/24/20) 373 (10/25/19) 273 (07/26/19) Corrected calcium is at goal. Phosphorus is at goal. Intact PTH is at goal. 100% compliance with binders now and improved phos control Cardiovascular Assessment Blood pressure reviewed and is acceptable. Continue same cardiovascular medications. Estimated dry weight is appropriate. Transplant Status Patient has been referred. Center - [facility] She wants to switch to ANW, wasn't happy with [facility] and recommendations from cardiology after her angiogram. She saw Dr. Patel at [facility] and no intervention required, changed to Lipitor from Simvastatin and recommended smoking cessation (which I strongly recommend as well). She has stopped smoking now. Insurance apparently requires [place] for [facility] transplant program and she will inquire further and seeif they can send me paperwork regarding this. Resuscitation Status Additional Comments: No changes to prescription, kt/v now excellent and no uremia symptoms Labs today If K low will allow more high potassium foods She will try melatonin at night to see if aids in falling asleep López Mariano MD [ Signed And locked electronically On 04/24/2020 at 10:29:26 AM ] Transcribed: López Mariano ( 04/24/2020 ) documented in this encounter Plan of Treatment Not on filedocumented as of this encounter Visit Diagnoses Not on filedocumented in this encounter
--- OUTSIDE RECORDS SUMMARY | 2021-12-28 14:09 | XMS_ITS | Encounter Summary ---
:1965 Author Organization [facility] Address [address] [place] [address] Care Team Providers Name Role Phone Unavailable Primary Care Provider Unavailable Encounter Details Date Type Department Care Team Description 08/23/2019 Orders Only [facility] López Awad MD [phone] [place] [address] [place], [place] [phone] (Wo rk) Social History Tobacco Use Types Packs/Day Years Used Date Smoking Tobacco: Never Assessed Sex Assigned at Date Recorded Not on file documented as of this encounter Plan of Treatment Not on filedocumented as of this encounter Procedures Procedure Name Priority Date/Time Associated Diagnosis Comme nts IMMUNO CHEMISTRY Routine 08/23/2019 Results for this procedure are in the resu lts section. HEMATOLOGY Routine 08/23/2019 Results for thi s procedure are in the resu lts section. CHEMISTRY Routine 08/23/2019 Results for thi s procedure are in the resu lts section. documented in this encounter Results IMMUNO CHEMISTRY (08/23/2019) P athologist Signature Hep B Surface Negative Negative [facility]PS SPECT[facility] Ag [facility] Specimen (Source) Anatomical Collection Method Collection Time Re ceived Time Location / / Volume Laterality 08/23/2019 08/24/2019 7:07 PM CDT Narrative [facility] - 08/25/2019 Unless otherwise specified, test(s) performed at: [facility], [address] [place] [address] MAINTENANCE AND REPAIR WORKER: Yoseph Rose M.D. For any questions, please call customer service at FREQUENCY:MONTHLY Resulting Agency Comment Specimen source: Serum López Mariano MD LAB BLOOD ORDERABLES Performing Organization Address City/State/ZIP Code Phon e Number [facility]PS S[facility]RA [facility] (ABNORMAL) Spectrae Chemistry (08/23/2019) [facility] Method Time Signature BUN 34 (H) 6 - 19 [facility] mg/dL [facility] Creatinine 3.92 (H) 0.60 - [facility] 1.30 mg/dL [facility] BUN/Creatinine 8.7 (L) 10.0 - [facility] Ratio 20.0 [facility] Sodium 142 136 - 145 [facility] mEq/L [facility] Potassium 4.4 3.5 - 5.1 [facility] mEq/L [facility] Chloride 108 96 - 108 [facility] mEq/L [facility] Bicarbonate 25 22 - 29 [facility] (CO2) mEq/L [facility] Calcium 8.8 8.4 - 10.2 [facility] mg/dL [facility] Corrected 9.0 8.4 - 10.2 [facility] Calcium mg/dL [facility] Comment: Corrected Calcium is not equivalent to m easured Ionized Calcium. Phosphorus 4.6 (H) 2.6 - 4.5 mg/dL [facility] Calcium Phosphorus Product 40 0 - 54 [facility] Calcium Phosporus Product, Cor 41 0 - 54 [facility] Albumin 3.8 3.5 - 5.2 g/dL [facility] [place] Iron 40 30 - 160 mcg/dL APS SPECTRA [place] MMN UIBC 235 155 - 355 mcg/dL APS SPECTRA K [facility] TIBC 275 185 - 515 mcg/dL APS SPECTRA K [facility] Iron Saturation (TSat) 15 (L) 20 - 55 % APS SPE CTRA [facility] Specimen (Source) Anatomical Collection Method Collection Time Re ceived Time Location / / Volume Laterality 08/23/2019 08/24/2019 7:07 PM CDT Narrative [facility] - 08/25/2019 Unless otherwise specified, test(s) performed at: [facility], [address] [place] [address] MAINTENANCE AND REPAIR WORKER: Yoseph Rose M.D. For any questions, please call customer service at FREQUENCY:MONTHLY Resulting Agency Comment Specimen source: Serum López Mariano MD LAB BLOOD ORDERABLES Performing Organization Address City/State/ZIP Code Phon e Number [facility] (ABNORMAL) HEMATOLOGY (08/23/2019) Analysis Performed At Patho logist Time Signature WBC 6.61 4.80 - [facility] 10.80 [facility] 1000/mcL RBC 3.68 (L) 4.20 - [facility] 5.40 [facility] mill/mcL Hemoglobin 11.0 (L) 12.0 - [facility] 16.0 g/dL [facility] Hemoglobin x 3 33.0 (L) 36.0 - [facility] 48.0 % [facility] Hematocrit 34.9 (L) 37.0 - [facility] 47.0 % [facility] MCV 95 80 - 100 [facility] fl [facility] MCH 29.8 27.0 - [facility] 31.0 pg [facility] MCHC 31.4 30.0 - [facility] 36.0 g/dL [facility] RDW 13.4 11.5 - [facility] 14.5 % [facility] Specimen (Source) Anatomical Collection Method Collection Time Re ceived Time Location / / Volume Laterality 08/23/2019 08/24/2019 6:49 PM CDT Narrative [facility] - 08/24/2019 Unless otherwise specified, test(s) performed at: [facility], [address] [place] [address] MAINTENANCE AND REPAIR WORKER: Yoseph Rose M.D. For any questions, please call customer service at FREQUENCY:MONTHLY Resulting Agency Comment Specimen source: Blood López Mariano MD LAB BLOOD ORDERABLES Performing Organization Address City/State/ZIP Code Phon e Number [facility] documented in this encounter Visit Diagnoses Not on filedocumented in this encounter
--- OUTSIDE RECORDS SUMMARY | 2021-12-28 14:09 | XMS_ITS | Encounter Summary ---
:1965 Author Organization [facility] Address [address] [place] [address] Care Team Providers Name Role Phone Unavailable Primary Care Provider Unavailable Encounter Details Date Type Department Care Team Description 07/31/2020 Treatment [facility] López Awad MD [address] [place], [place] [phone] (Wo rk) Social History Tobacco Use Types Packs/Day Years Used Date Smoking Tobacco: Never Assessed Sex Assigned at Date Recorded Not on file documented as of this encounter Miscellaneous Notes Dialysis Note - López Mariano MD - 07/31/2020 10:54 AM CDT Date: Jul 31, 2020 Patient Name: Stephanie Norman : 1965 Chart #: [id number] Sex: F This patient was personally seen for a complete visit as part of routine monthly dialysis care. A review of the dialysis treatment, blood pressure, estimated dry weight, and recent lab values was made.These were discussed with the patient and staff as necessary. CRYSTAL CUTTER: López Mariano MD LOCATION: [phone] SCHEDULE: No Routine Schedule Subjective Tolerating dialysis well. 414: Stephanie is doing excellent. She has no concerns at all, doing CCPD without any issues with weightstable and she feels excellent with no symptoms. [...] he is home. 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 Treatment and Adequacy Assessment BUN mg/dL 41 (07/09/20) 41 (06/26/20) 38 (05/22/20) CREATININE (MG/DL) IN SER/PLAS mg/dL 5.78 (07/09/20) 5.92 (06/26/20) 5.51 (05/22/20) KT/V, PERITONEAL L/wk 1.01 (07/09/20) 1.01 (04/03/20) 0.89 (01/24/20) KT/V, RESIDUAL L/wk 0.82 (07/09/20) 1.58 (04/03/20) 1.01 (01/24/20) Kt/V is adequate. Continue current prescription. Increased PD prescription and residual also increased in 03/2020 compared to 01/2020 and now robust combined kt/v. Due for repeat adequacy, will complete this month (she forgot to do PD bags today but did 24hr urine, but will need to repeat on same day) Peritoneal Dialysis Access Assessment Placed on: 01/2019 Surgeon - Dr. Martinez at [facility] Staff and patient report access is working [...] Assessment HEMOGLOBIN (G/DL) IN BLOOD g/dL 11.4 (07/09/20) 10.7 (06/26/20) 11.2 (05/22/20) PLATELETS 1000/mcL 255 (02/21/20) WBC (BLOOD) 1000/mcL 7.22 (06/26/20) 6.81 (05/22/20) 6.34 (04/24/20) IRON SATURATION % 15 (06/26/20) 17 (05/22/20) 19 (04/24/20) FERRITIN ng/mL 292 (04/24/20) 232 (01/24/20) 309 (10/25/19) Hemoglobin is at goal. Iron Saturation is below goal. Ferritin is below goal. Will adjust FABIO and intravenous iron. Not on FABIO Nutritional and Metabolic Assessment ALBUMIN (G/DL) g/dL 3.6 (06/26/20) 4.0 (05/22/20) 4.2 (04/24/20) BICARBONATE (CO2) mEq/L 29 (06/26/20) 26 (05/22/20) 26 (04/24/20) POTASSIUM (MMOL/L) IN SER/PLAS mEq/L 3.7 (06/26/20) 3.7 (05/22/20) 4.0 (04/24/20) Sodium mEq/L 142 (06/26/20) 138 (05/22/20) 140 (04/24/20) 25 OH VITAMIN D ng/mL 11.6 (04/24/20) 19.9 (04/21/19) 25.6 (02/20/19) Albumin is below goal. Encourage high biological value protein intake. Potassium is at goal. Bone and Mineral Metabolism Assessment Calcium mg/dL 8.5 (06/26/20) 8.8 (05/22/20) 9.3 (04/24/20) CALCIUM (MG/DL) CORRECTED FOR ALBUMIN IN SER/PLAS mg/dL 8.8 (06/26/20) 8.8 (05/22/20) 9.1 (04/24/20) CALCIUM PHOSPHORUS PRODUCT, COR 37 (06/26/20) 48 (05/22/20) 50 (04/24/20) PHOSPHATE (MG/DL) IN SER/PLAS mg/dL 4.2 (06/26/20) 5.4 (05/22/20) 5.5 (04/24/20) IPTH pg/mL 460 (04/24/20) 482 (01/24/20) 373 (10/25/19) Corrected calcium is at goal. Phosphorus is at goal. Intact PTH is at goal. 100% compliance with binders now and improved phos control Cardiovascular Assessment Blood pressure reviewed and is acceptable. Continue same cardiovascular medications. Estimated dry weight is appropriate. Transplant Status Patient has been referred. Center - [facility] She wants to switch to [facility], wasn't happy with [facility] and recommendations from cardiology after her angiogram. She saw Dr. Patel at [facility] and no intervention required, changed to Lipitor from Simvastatin and recommended smoking cessation (which I strongly recommend as well). Insurance apparently requires [place] for [facility] transplant program and she will inquire further and see if they can send me paperwork regarding this. She has been slow to call, will do so. She also started smoking again, motivated toquit again next month. She possibly has living donor (her adult child) but she has developmental delay that would need to be investigated. Resuscitation Status Additional Comments: No changes to prescription today, no change in medications, CCPD going very well Labs drawn today Discussed smoking cessation and contacting [facility] Tx program which she plans to do today López Mariano MD [ Signed And locked electronically On 07/31/2020 at 10:56:17 AM ] Transcribed: López Mariano ( 07/31/2020 ) documented in this encounter Plan of Treatment Not on filedocumented as of this encounter Visit Diagnoses Not on filedocumented in this encounter
--- OUTSIDE RECORDS SUMMARY | 2021-12-28 14:09 | XMS_ITS | Encounter Summary ---
:1965 Author Organization [facility] Address [address] [place] [address] Care Team Providers Name Role Phone Unavailable Primary Care Provider Unavailable Encounter Details Date Type Department Care Team Description 11/22/2019 Orders Only [facility] O f López Awad MD [address] [place] [address] [place], [place] [phone] (Wo rk) Social History Tobacco Use Types Packs/Day Years Used Date Smoking Tobacco: Never Assessed Sex Assigned at Date Recorded Not on file documented as of this encounter Plan of Treatment Not on filedocumented as of this encounter Procedures Procedure Name Priority Date/Time Associated Diagnosis Comme nts HEMATOLOGY Routine 11/22/2019 Results for thi s procedure are in the resu lts section. CHEMISTRY Routine 11/22/2019 Results for thi s procedure are in the resu lts section. documented in this encounter Results (ABNORMAL) Spectrae Chemistry (11/22/2019) [facility] gist Method Time Signature BUN 44 (H) 6 - 19 [facility]RA mg/dL [facility] Creatinine 5.80 (H) 0.60 - [facility] 1.30 mg/dL [facility] BUN/Creatinine 7.6 (L) 10.0 - [facility] Ratio 20.0 [facility] Sodium 142 136 - 145 [facility] mEq/L [facility] Potassium 4.2 3.5 - 5.1 [facility] mEq/L [facility] Chloride 103 96 - 108 [facility] mEq/L [facility] Bicarbonate 26 22 - 29 [facility] (CO2) mEq/L [facility] Calcium 9.0 8.4 - 10.2 [facility] mg/dL [facility] Corrected 9.2 8.4 - 10.2 [facility] Calcium mg/dL [facility] Comment: Corrected Calcium is not equivalent to m easured Ionized Calcium. Phosphorus 5.6 (H) 2.6 - 4.5 mg/dL APS SPECTRA [facility] Calcium Phosphorus Product 50 0 - 54 [facility] Calcium Phosporus Product, Cor 52 0 - 54 [facility] Albumin 3.8 3.5 - 5.2 g/dL [facility] [place] Iron 71 30 - 160 mcg/dL A[facility] S[facility] [place] [facility] UIBC 208 155 - 355 mcg/dL APS S[facility]RA [facility] TIBC 279 185 - 515 mcg/dL APS SPECTRA [facility] Iron Saturation (TSat) 25 20 - 55 % APS SPE CTRA [facility] Specimen (Source) Anatomical Collection Method Collection Time Re ceived Time Location / / Volume Laterality 11/22/2019 11/23/2019 7:44 PM CDT Narrative [facility]PS [facility] - 11/23/2019 Unless otherwise specified, test(s) performed at: [facility], [address] [place] [address] GRAIN HANDLER: Yoseph Rose M.D. For any questions, please call customer service at FREQUENCY:MONTHLY Resulting Agency Comment Specimen source: Serum López Mariano MD LAB BLOOD ORDERABLES Performing Organization Address City/State/ZIP Code Phon e Number [facility]PS S[facility]RA [facility] (ABNORMAL) HEMATOLOGY (11/22/2019) [facility] gist Method Time Signature WBC 5.57 4.80 - [facility]RA 10.80 [facility] 1000/mcL RBC 3.81 (L) 4.20 - [facility]RA 5.40 [facility] mill/mcL Hemoglobin 11.8 (L) 12.0 - [facility] 16.0 g/dL [facility] Hemoglobin x 3 35.4 (L) 36.0 - [facility]RA 48.0 % [facility] Hematocrit 36.2 (L) 37.0 - [facility] 47.0 % [facility] MCV 95 80 - 100 [facility] fl [facility] MCH 31.1 (H) 27.0 - [facility] 31.0 pg [facility] MCHC 32.7 30.0 - [facility]PS [facility]RA 36.0 g/dL [facility] RDW 15.0 (H) 11.5 - [facility]RA 14.5 % [facility] Neutrophils 69.7 40.0 - [facility] 75.0 % [facility] Lymphocytes 21.2 19.0 - [facility] Relative 48.0 % [facility] Monocytes 4.2 3.0 - 10.0 APS [facility] % [facility] Eosinophils 2.1 0.0 - 7.0 APS [facility]RA Relative % [facility] Basophils 1.4 0.0 - 1.5 APS [facility]RA Relative % [facility] JESSICA 1.4 0.0 - 4.0 APS SPECTRA % [facility] Specimen (Source) Anatomical Collection Method Collection Time Re ceived Time Location / / Volume Laterality 11/22/2019 11/23/2019 7:32 PM CDT Narrative [facility] - 11/23/2019 Unless otherwise specified, test(s) performed at: [facility], [address] [place] [address] GRAIN HANDLER: Yoseph Rose M.D. For any questions, please call customer service at FREQUENCY:MONTHLY Resulting Agency Comment Specimen source: Blood López Mariano MD LAB BLOOD ORDERABLES Performing Organization Address City/State/ZIP Code Phon e Number [facility] documented in this encounter Visit Diagnoses Not on filedocumented in this encounter
--- OUTSIDE RECORDS SUMMARY | 2021-12-28 14:09 | XMS_ITS | Encounter Summary ---
:1965 Author Organization [facility] Address [address] [place] [address] Care Team Providers Name Role Phone Unavailable Primary Care Provider Unavailable Encounter Details Date Type Department Care Team Description 05/22/2020 Orders Only [facility] O f López Awad MD [address] [place] [address] [place], [place] [phone] (Wo rk) Social History Tobacco Use Types Packs/Day Years Used Date Smoking Tobacco: Never Assessed Sex Assigned at Date Recorded Not on file documented as of this encounter Plan of Treatment Not on filedocumented as of this encounter Procedures Procedure Name Priority Date/Time Associated Diagnosis Comme nts HEMATOLOGY Routine 05/22/2020 Results for thi s procedure are in the resu lts section. CHEMISTRY Routine 05/22/2020 Results for thi s procedure are in the resu lts section. documented in this encounter Results (ABNORMAL) Spectrae Chemistry (05/22/2020) [facility] gist Method Time Signature BUN 38 (H) 6 - 19 APS SPECTRA mg/dL [facility] Creatinine 5.51 (H) 0.60 - APS SPECTRA 1.30 mg/dL [...] 5.2 g/dL [facility] [place] Iron 52 30 - 160 mcg/dL APS SPECT[facility] [place] [facility] UIBC 253 155 - 355 mcg/dL APS SPECTRA [facility] TIBC 305 185 - 515 mcg/dL APS SPECTRA [facility] Iron Saturation (TSat) 17 (L) 20 - 55 % APS SPE CTRA [facility] Specimen (Source) Anatomical Collection Method Collection Time Re ceived Time Location / / Volume Laterality 05/22/2020 05/24/2020 3:11 AM E/M ENGINEER Narrative [facility]PS [facility]RA [facility] - 05/24/2020 Unless otherwise specified, test(s) performed at: [facility] [address] [place] [address] LANGUAGE ASSISTANT: Yoseph Rose M.D. For any questions, please call customer service at FREQUENCY:MONTHLY Resulting Agency Comment Specimen source: Serum López Mariano MD LAB BLOOD ORDERABLES Performing Organization Address City/State/ZIP Code Phon e Number [facility]PS SPECTRA [facility] (ABNORMAL) HEMATOLOGY (05/22/2020) [facility] gist Method Time Signature WBC 6.81 4.80 - [facility]PS SPECTRA 10.80 [facility] 1000/mcL RBC 3.52 (L) 4.20 - APS SPECTRA 5.40 [facility] mill/mcL Hemoglobin 11.2 (L) 12.0 - APS SPECTRA 16.0 g/dL [facility] Hemoglobin x 3 33.6 (L) 36.0 - APS SPECTRA 48.0 % [facility] Hematocrit 33.3 (L) 37.0 - APS SPECTRA 47.0 % [facility] MCV 95 80 - 100 APS S[facility]RA fl [facility] MCH 31.9 (H) 27.0 - APS SPECTRA 31.0 pg [facility] MCHC 33.8 30.0 - APS SPECTRA 36.0 g/dL [facility] RDW 14.1 11.5 - APS S[facility]RA 14.5 % [facility] Neutrophils 77.3 (H) 40.0 - APS SPECTRA 75.0 % [facility] Lymphocytes 14.4 (L) 19.0 - APS [facility]RA Relative 48.0 % [facility] Monocytes 4.8 3.0 - 10.0 APS SPECTRA % [facility] Eosinophils 1.9 0.0 - 7.0 APS S[facility]RA Relative % [facility] Basophils 0.8 0.0 - 1.5 [facility]PS [facility]RA Relative % [facility] JESSICA 0.8 0.0 - 4.0 APS SPECTRA % [facility] Specimen (Source) Anatomical Collection Method Collection Time Re ceived Time Location / / Volume Laterality 05/22/2020 05/23/2020 4:10 PM E/M ENGINEER Narrative [facility]PS S[facility]RA [facility] - 05/24/2020 Unless otherwise specified, test(s) performed at: [facility] [address] [place] [address] LANGUAGE ASSISTANT: Yoseph Rose M.D. For any questions, please call customer service at FREQUENCY:MONTHLY Resulting Agency Comment Specimen source: Blood López Mariano MD LAB BLOOD ORDERABLES Performing Organization Address City/State/ZIP Code Phon e Number [facility]PS S[facility]RA [facility] documented in this encounter Visit Diagnoses Not on filedocumented in this encounter
--- OUTSIDE RECORDS SUMMARY | 2021-12-28 14:09 | XMS_ITS | Encounter Summary ---
:1965 Author Organization [facility] Address [address] [place] [address] Care Team Providers Name Role Phone Unavailable Primary Care Provider Unavailable Encounter Details Date Type Department Care Team Description 10/25/2019 Treatment [facility] O f López Awad MD [address] [place], [place] [phone] (Wo rk) Social History Tobacco Use Types Packs/Day Years Used Date Smoking Tobacco: Never Assessed Sex Assigned at Date Recorded Not on file documented as of this encounter Miscellaneous Notes Dialysis Note - López Mariano MD - 10/25/2019 11:54 AM CDT Date: Oct 25, 2019 Patient Name: Stephanie Norman : 1965 Chart #: [id number] Sex: F This patient was personally seen for a complete visit as part of routine monthly dialysis care. A review of the dialysis treatment, blood pressure, estimated dry weight, and recent lab values was made.These were discussed with the patient and staff as necessary. HYDRAULIC DESIGN ENGINEER: López Mariano MD LOCATION: [phone] SCHEDULE: No Routine Schedule Subjective Tolerating dialysis well. 10/25/19: She feels excellent. 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 Review of Systems None reported. beside edema as above Exam Respiratory - Clear to auscultation bilaterally. Cardiovascular - Regular rate. Regular rhythm. Gastrointestinal - Normal bowel sounds, soft, non-tender. Edema - 1+ leg edema. PD catheter exit site - exit site clean per operations lead List Medication Sig Start Date aspirin 81 [...] Renvela (sevelamer carbonate) 800 mg tablet Take 1 tablet by mouth three times a day with meals. 1 tab with snacks simvastatin 10 mg tablet 1 tablet by mouth at bedtime. take 1 tablet by mouth at bedtime torsemide 20 mg tablet Take 2 tablet by mouth once a day Allergy List Allergen Reaction Reaction Severity Onset Date neomycin Skin rash PENICILLINS Skin rash Medications reviewed and no changes were made. Treatment and Adequacy Assessment BUN mg/dL 46 (09/25/19) 34 (08/23/19) 36 (08/07/19) CREATININE (MG/DL) IN SER/PLAS mg/dL 4.73 (09/25/19) 3.92 (08/23/19) 3.79 (08/07/19) KT/V, PERITONEAL L/wk 0.77 (08/07/19) 0.80 (04/21/19) 0.80 (03/20/19) KT/V, RESIDUAL L/wk 1.95 (08/07/19) 2.04 (04/21/19) 2.12 (03/20/19) Kt/V is adequate. Continue current prescription. kt/v residual a little lower but still excellent, total kt/v is fantastic. No changes needed. She has no uremia symptoms. EDW 101.5 Kg Peritoneal Dialysis Access Assessment Placed on: 01/2019 Surgeon - Dr. Martinez at [facility] Staff and patient report access is working [...] Assessment HEMOGLOBIN (G/DL) IN BLOOD g/dL 11.5 (09/25/19) 11.4 (09/06/19) 11.0 (08/23/19) WBC (BLOOD) 1000/mcL 6.16 (09/25/19) 6.61 (08/23/19) 5.84 (07/26/19) IRON SATURATION % 20 (09/25/19) 15 (08/23/19) 16 (07/26/19) FERRITIN ng/mL 147 (07/26/19) 168 (04/21/19) 199 (03/20/19) Hemoglobin is at goal. Iron Saturation is below goal. Ferritin is below goal. Not on FABIO Repeat Hgb and iron studies today, got venofer last month Nutritional and Metabolic Assessment ALBUMIN (G/DL) g/dL 3.9 (09/25/19) 3.8 (08/23/19) 4.1 (07/26/19) BICARBONATE (CO2) mEq/L 22 (09/25/19) 25 (08/23/19) 26 (07/26/19) POTASSIUM (MMOL/L) IN SER/PLAS mEq/L 3.6 (09/25/19) 4.4 (08/23/19) 4.3 (07/26/19) Sodium mEq/L 141 (09/25/19) 142 (08/23/19) 142 (07/26/19) 25 OH VITAMIN D ng/mL 19.9 (04/21/19) 25.6 (02/20/19) Albumin is below goal. Encourage high biological value protein intake. Potassium is at goal. Bone and Mineral Metabolism Assessment Calcium mg/dL 8.5 (09/25/19) 8.8 (08/23/19) 9.2 (07/26/19) CALCIUM (MG/DL) CORRECTED FOR ALBUMIN IN SER/PLAS mg/dL 8.6 (09/25/19) 9.0 (08/23/19) 9.1 (07/26/19) CALCIUM PHOSPHORUS PRODUCT, COR 49 (09/25/19) 41 (08/23/19) 52 (07/26/19) PHOSPHATE (MG/DL) IN SER/PLAS mg/dL 5.7 (09/25/19) 4.6 (08/23/19) 4.8 (08/07/19) IPTH pg/mL 273 (07/26/19) 270 (04/21/19) 137 (02/20/19) Corrected calcium is at goal. Phosphorus is above goal. Intact PTH is at goal. 100% compliance with binders including with snacks discussed, no change in Sevelamer dose at this time. RE-assess phos, but she does continue to miss doses at times and she will work on this. Cardiovascular Assessment Blood pressure reviewed and is acceptable. Continue same cardiovascular medications. Estimated dry weight is appropriate. Better adherence to fluid restriction needed at times, uses occasional red bag to get back to dry weight. On torsemide as well. No change in EDW today. Transplant Status Patient has been referred. [place] [facility] Needs to quit smoking for 3 months (she quit in August 2019), then needs one stent placed, then should be active on transplant list at [facility]. She is an excellent candidate in my opinion after these things are completed. Resuscitation Status Additional Comments: No changes today Adequacy reviewed and excellent Needs better compliance with binders, discussed and educated on importance of this today Labs to be drawn today, will review when they are back and adjust prn López Mariano MD [ Signed And locked electronically On 10/25/2019 at 11:59:55 AM ] Transcribed: López Mariano ( 10/25/2019 ) documented in this encounter Plan of Treatment Not on filedocumented as of this encounter Visit Diagnoses Not on filedocumented in this encounter
--- OUTSIDE RECORDS SUMMARY | 2021-12-28 14:09 | XMS_ITS | Encounter Summary ---
:1965 Author Organization [facility] Address [address] [place] [address] Care Team Providers Name Role Phone Unavailable Primary Care Provider Unavailable Encounter Details Date Type Department Care Team Description 12/20/2019 Orders Only [facility] O f López Awad MD [phone] [place] [address] [place], [place] [phone] (Wo rk) Social History Tobacco Use Types Packs/Day Years Used Date Smoking Tobacco: Never Assessed Sex Assigned at Date Recorded Not on file documented as of this encounter Plan of Treatment Not on filedocumented as of this encounter Procedures Procedure Name Priority Date/Time Associated Diagnosis Comme nts HEMATOLOGY Routine 12/20/2019 Results for thi s procedure are in the resu lts section. CHEMISTRY Routine 12/20/2019 Results for thi s procedure are in the resu lts section. documented in this encounter Results (ABNORMAL) Spectrae Chemistry (12/20/2019) [facility] gist Method Time Signature BUN 48 (H) 6 - 19 [facility] mg/dL [facility] Creatinine 6.30 (H) 0.60 - [facility] 1.30 mg/dL [facility] BUN/Creatinine 7.6 (L) 10.0 - [facility] Ratio 20.0 [facility] Sodium 140 136 - 145 [facility] mEq/L [facility] Potassium 3.8 3.5 - 5.1 [facility] mEq/L [facility] Chloride 102 96 - 108 [facility] mEq/L [facility] Bicarbonate 24 22 - 29 [facility] (CO2) mEq/L [facility] Calcium 8.9 8.4 - 10.2 [facility] mg/dL [facility] Corrected 9.0 8.4 - 10.2 [facility] Calcium mg/dL [facility] Comment: Corrected Calcium is not equivalent to m easured Ionized Calcium. Phosphorus 5.5 (H) 2.6 - 4.5 mg/dL [facility] Calcium Phosphorus Product 49 0 - 54 [facility] Calcium Phosporus Product, Cor 50 0 - 54 [facility] Albumin 3.9 3.5 - 5.2 g/dL [facility] [place] Iron 54 30 - 160 mcg/dL [facility] [place] [facility] UIBC 227 155 - 355 mcg/dL [facility] TIBC 281 185 - 515 mcg/dL [facility] Iron Saturation (TSat) 19 (L) 20 - 55 % APS SPE CTRA [facility] Specimen (Source) Anatomical Collection Method Collection Time Re ceived Time Location / / Volume Laterality 12/20/2019 12/21/2019 6:06 PM CDT Narrative [facility] - 12/21/2019 Unless otherwise specified, test(s) performed at: [facility], [address] [place] [address] HIGH SCALER: Yoseph Rose M.D. For any questions, please call customer service at FREQUENCY:MONTHLY Resulting Agency Comment Specimen source: Serum López Mariano MD LAB BLOOD ORDERABLES Performing Organization Address City/State/ZIP Code Phon e Number [facility] (ABNORMAL) HEMATOLOGY (12/20/2019) [facility] gist Method Time Signature WBC 6.88 4.80 - [facility] 10.80 [facility] 1000/mcL RBC 3.64 (L) 4.20 - [facility] 5.40 [facility] mill/mcL Hemoglobin 11.4 (L) 12.0 - [facility] 16.0 g/dL [facility] Hemoglobin x 3 34.2 (L) 36.0 - [facility] 48.0 % [facility] Hematocrit 34.3 (L) 37.0 - [facility] 47.0 % [facility] MCV 94 80 - 100 [facility] fl [facility] MCH 31.2 (H) 27.0 - [facility] 31.0 pg [facility] MCHC 33.1 30.0 - [facility] 36.0 g/dL [facility] RDW 13.7 11.5 - [facility] 14.5 % [facility] Neutrophils 75.4 (H) 40.0 - [facility] 75.0 % [facility] Lymphocytes 16.5 (L) 19.0 - [facility] Relative 48.0 % [facility] Monocytes 4.1 3.0 - 10.0 [facility] % [facility] Eosinophils 1.9 0.0 - 7.0 [facility] Relative % [facility] Basophils 1.2 0.0 - 1.5 [facility] Relative % [facility] JESSICA 1.0 0.0 - 4.0 [facility] % [facility] Specimen (Source) Anatomical Collection Method Collection Time Re ceived Time Location / / Volume Laterality 12/20/2019 12/21/2019 10:3 2 AM CDT Narrative [facility] - 12/21/2019 Unless otherwise specified, test(s) performed at: [facility], [address] [place] [address] HIGH SCALER: Yoseph Rose M.D. For any questions, please call customer service at FREQUENCY:MONTHLY Resulting Agency Comment Specimen source: Blood López Mariano MD LAB BLOOD ORDERABLES Performing Organization Address City/State/ZIP Code Phon e Number [facility] documented in this encounter Visit Diagnoses Not on filedocumented in this encounter
--- OUTSIDE RECORDS SUMMARY | 2021-12-28 14:09 | XMS_ITS | Encounter Summary ---
:1965 Author Organization [facility] Address [address] [place] [address] Care Team Providers Name Role Phone Unavailable Primary Care Provider Unavailable Encounter Details Date Type Department Care Team Description 04/03/2020 Orders Only [facility] O f López Awad MD [phone] [place] [address] [place], [place] [phone] (Wo rk) Social History Tobacco Use Types Packs/Day Years Used Date Smoking Tobacco: Never Assessed Sex Assigned at Date Recorded Not on file documented as of this encounter Plan of Treatment Not on filedocumented as of this encounter Procedures Procedure Name Priority Date/Time Associated Diagnosis Comme nts URINE CLEARANCE Routine 04/03/2020 Results for this procedure are i n the results section . PDF CHEMISTRY Routine 04/03/2020 Results for th is procedure are i n the results section . PD ADEQUACY Routine 04/03/2020 Results for thi s procedure are i n the results section . PD ADEQUACY Routine 04/03/2020 Results for thi s procedure are i n the results section . PATIENT INFORMATION Routine 04/03/2020 Results for this procedure are i n the results section . PATIENT INFORMATION Routine 04/03/2020 Results for this procedure are i n the results section . PATIENT INFORMATION Routine 04/03/2020 Results for this procedure are i n the results section . CHEMISTRY Routine 04/03/2020 Results for thi s procedure are i n the results section . documented in this encounter Results (ABNORMAL) URINE CLEARANCE (04/03/2020) Analysis Performed At Patho logist Time Signature Urea Nitrogen, 371 mg/dL [facility] Urine Timed [facility] Urea Nitrogen, 3.7 (L) 12.0 - [facility] Urine 24 Hr 20.0 g/24 [facility] hr Urea Clear, 5.4 (L) 64.0 - [facility] Urine Norm 99.0 [facility] mL/min Urea Clearance, 6.6 (L) 64.0 - [facility] Urine 99.0 [facility] mL/min Urea Clear, 67 L/wk [facility] Urine Norm Wkly [facility] Creatinine, 151.9 mg/dL [facility] Urine Timed [facility] Creatinine, 24H 1.5 0.5 - 1.6 [facility] Ur g/24 hr [facility] Creatinine 20.0 mL/min [facility] Clear, Urine [facility] Creat Clear, 16.3 (L) 77.0 - [facility] Urine Norm 94.0 [facility] mL/min Creat Clear, 201.6 L/wk [facility] Urine Wkly [facility] Specimen (Source) Anatomical Collection Method Collection Time Re ceived Time Location / / Volume Laterality 04/03/2020 04/05/2020 3:27 PM INTERFACE DEVELOPER Resulting Agency Comment Specimen source: Urine López Mariano MD LAB URINE ORDERABLES Performing Organization Address City/State/ZIP Code Phon e Number [facility] PD ADEQUACY (04/03/2020) P athologist Signature Kt/V, Residual 1.58 [facility] Creat Clear, 164 L/wk [facility] Urine Nor Wkly [facility] Specimen (Source) Anatomical Collection Method Collection Time Re ceived Time Location / / Volume Laterality 04/03/2020 04/05/2020 3:27 PM INTERFACE DEVELOPER Narrative [facility] - 04/05/2020 Unless otherwise specified, test(s) performed at: [facility], [address] [place] [id number] BILLING DEPARTMENT SUPERVISOR: Yoseph Rose M.D. For any questions, please call customer service at FREQUENCY:MONTHLY Resulting Agency Comment Specimen source: Urine López Mariano MD LAB BODY FLUIDS AND STOOLS O RDERABLES Performing Organization Address City/State/ZIP Code Phon e Number [facility] PDF CHEMISTRY (04/03/2020) P athologist Signature Urea Nitrogen, 2,428.7 mg/24 hr [facility] PDF 24 Hr [facility] Urea Nitrogen, 26 mg/dL [facility] PDF Timed [facility] Comment: A reference range for this assay has not been established for body fluids. If blood results are available f or this analyte, results may be interpreted in comparison to those resul ts. Urea Clearance, PD Fluid 4.3 mL/min [facility]PS S PECTRA [facility] Urea Clearance, PDF Norm 3.5 mL/min [facility]PS S PECTRA [facility] Urea Clear, PDF Norm Wkly 43 L/wk [facility] Creatinine, PDF Timed Uncor 1.8 mg/dL AP S SPECTRA [facility] Comment: A reference range for this assay has not been established for body fluids. If blood results are available f or this analyte, results may be interpreted in comparison to those resul ts. Urea Clear, Tot Norm Wkly 110 L/wk [facility] Creatinine, PDF Timed Cor 1.5 mg/dL [facility] Comment: Creatinine values have been corrected fo r glucose interference. [facility] glucose correction factor f or creatinine is 0.0002. Creatinine, PDF 24 Hr 140.1 mg/24 hr [facility]PS SPEC TRA [facility] Creatinine Clear, PDF 1.8 mL/min [facility]PS SPEC TRA [facility] Creatinine Clear, PDF Norm 1.5 mL/min [facility] Creat Clear, PDF Norm Wkly 18 L/wk [facility] Creat Clear, Tot Wkly 220 L/wk [facility]PS SPEC TRA [facility] Glucose, PDF Timed 1,424 mg/dL [facility] Comment: A reference range for this assay has not been established for body fluids. If blood results are available f or this analyte, results may be interpreted in comparison to those resul ts. Specimen (Source) Anatomical Collection Method Collection Time Re ceived Time Location / / Volume Laterality 04/03/2020 04/05/2020 3:44 PM INTERFACE DEVELOPER Resulting Agency Comment Specimen source: PD Fluid López Mariano MD LAB BODY FLUIDS AND STOOLS O RDERABLES Performing Organization Address City/State/ZIP Code Phon e Number [facility] PD ADEQUACY (04/03/2020) P athologist Signature Kt/V, 1.01 [facility] Peritoneal [facility] Kt/V, Total 2.59 [facility] Comment: KDOQI Guidelines recommend weekly Kt/V o f >=1.7 for adults. Creat Clear, Tot Norm Wkly 179 L/wk [facility] Creat Clear, PDF Norm Wkly 15 L/wk [facility] PNA, Normalized 0.85 g/kg/day [facility] PNA 62 g/day [facility] Specimen (Source) Anatomical Collection Method Collection Time Re ceived Time Location / / Volume Laterality 04/03/2020 04/05/2020 3:44 PM INTERFACE DEVELOPER Narrative [facility] - 04/05/2020 Unless otherwise specified, test(s) performed at: [facility], [address] [place] [address] BILLING DEPARTMENT SUPERVISOR: Yoseph Rose M.D. For any questions, please call customer service at FREQUENCY:MONTHLY Resulting Agency Comment Specimen source: PD Fluid López Mariano MD LAB BODY FLUIDS AND STOOLS O RDERABLES Performing Organization Address City/[facility]/ZIP Code Phon e Number [facility] PATIENT INFORMATION (04/03/2020) P athologist Signature Urea Volume 42.5 L [facility] Distribution [facility] ([place]) Specimen (Source) Anatomical Collection Method Collection Time Re ceived Time Location / / Volume Laterality 04/03/2020 04/05/2020 3:44 PM INTERFACE DEVELOPER Narrative [facility] - 04/05/2020 Unless otherwise specified, test(s) performed at: [facility], [address] [place] [address] BILLING DEPARTMENT SUPERVISOR: Yoseph Rose M.D. For any questions, please call customer service at FREQUENCY:MONTHLY Resulting Agency Comment Specimen source: PD Fluid López Mariano MD LAB BLOOD ORDERABLES Performing Organization Address City/State/ZIP Code Phon e Number [facility] (ABNORMAL) Spectrae Chemistry (04/03/2020) Analysis Performed At Patho logist Time Signature BUN 39 (H) 6 - 19 [facility] mg/dL [facility] Creatinine 5.27 (H) 0.60 - [facility] 1.30 mg/dL [facility] BUN/Creatinine 7.4 (L) 10.0 - [facility] Ratio 20.0 [facility] Calcium 9.0 8.4 - 10.2 [facility] mg/dL [facility] Specimen (Source) Anatomical Collection Method Collection Time Re ceived Time Location / / Volume Laterality 04/03/2020 04/05/2020 2:34 PM INTERFACE DEVELOPER Narrative [facility] - 04/05/2020 Unless otherwise specified, test(s) performed at: [facility], [address] [place] [id number] BILLING DEPARTMENT SUPERVISOR: Yoseph Rose M.D. For any questions, please call customer service at FREQUENCY:MONTHLY Resulting Agency Comment Specimen source: Serum López Mariano MD LAB BLOOD ORDERABLES Performing Organization Address City/[facility] Phon e Number [facility] PATIENT INFORMATION (04/03/2020) athologist Signature Patient BSA 2.13 sq. M. [facility] Comment: Normalized values are calculated using t he patient's actual BSA and normalized to the average BSA of 1.73m2. Specimen (Source) Anatomical Collection Method Collection Time Re ceived Time Location / / Volume Laterality 04/03/2020 04/05/2020 2:34 PM INTERFACE DEVELOPER Narrative [facility] - 04/05/2020 Unless otherwise specified, test(s) performed at: [facility], [address] [place] [id number] BILLING DEPARTMENT SUPERVISOR: Yoseph Rose M.D. For any questions, please call customer service at FREQUENCY:MONTHLY Resulting Agency Comment Specimen source: PD Fluid López Mariano MD LAB BLOOD ORDERABLES Performing Organization Address City/[facility] Phon e Number [facility] PATIENT INFORMATION (04/03/2020) athologist Signature Patient Weight 100.5 [facility] Patient Height 172.0 [facility] Amputee Status NO [facility] Amputee Parts NONE [facility] Drain volume, 9,341 [facility] PDF [facility] Collection 24.0 [facility] Time, PDF [facility] Urine Volume 1,000 [facility] Collection 24.0 [facility] Interval, Ur [facility] Specimen (Source) Anatomical Location Collection Method / Collectio n Time Received Time / Laterality Volume 04/03/2020 04/03/2020 Narrative [facility] - 04/05/2020 Unless otherwise specified, test(s) performed at: [facility], [address] [place] [id number] BILLING DEPARTMENT SUPERVISOR: Yoseph Rose M.D. For any questions, please call customer service at FREQUENCY:MONTHLY Resulting Agency Comment Specimen source: PD Fluid López Mariano MD LAB BLOOD ORDERABLES Performing Organization Address City/State/ZIP Code Phon e Number [facility] documented in this encounter Visit Diagnoses Not on filedocumented in this encounter
--- OUTSIDE RECORDS SUMMARY | 2021-12-28 14:09 | XMS_ITS | Encounter Summary ---
:1965 Author Organization [facility] Address [address] [place] [address] Care Team Providers Name Role Phone Unavailable Primary Care Provider Unavailable Encounter Details Date Type Department Care Team Description 11/22/2019 Treatment [facility] O f López Awad MD [address] [place], [place] [phone] (Wo rk) Social History Tobacco Use Types Packs/Day Years Used Date Smoking Tobacco: Never Assessed Sex Assigned at Date Recorded Not on file documented as of this encounter Miscellaneous Notes Dialysis Note - López Mariaon MD - 11/22/2019 10:11 AM CDT Date: Nov 22, 2019 Patient Name: Stephanie Norman : 1965 Chart #: [id number] Sex: F This patient was personally seen for a complete visit as part of routine monthly dialysis care. A review of the dialysis treatment, blood pressure, estimated dry weight, and recent lab values was made.These were discussed with the patient and staff as necessary. VASCULAR TECHNOLOGIST SONOGRAPHER: López Mariano MD LOCATION: [phone] SCHEDULE: No Routine Schedule Subjective Tolerating dialysis well. 11/21: Stephanie feels fantastic, has no issues with CCPD and is doing every night. She is 100% compliant with binders now. 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 Regular rhythm. Gastrointestinal - nl BS, non-distended Edema - Trace edema. trace to 1+ in ankles PD catheter exit site - exit site clean per technical services consultant List Medication Sig Start Date aspirin 81 [...] Treatment and Adequacy Assessment BUN mg/dL 48 (10/25/19) 46 (09/25/19) 34 (08/23/19) CREATININE (MG/DL) IN SER/PLAS mg/dL 5.60 (10/25/19) 4.73 (09/25/19) 3.92 (08/23/19) KT/V, PERITONEAL L/wk 0.94 (10/25/19) 0.77 (08/07/19) 0.80 (04/21/19) KT/V, RESIDUAL L/wk 1.29 (10/25/19) 1.95 (08/07/19) 2.04 (04/21/19) Kt/V is adequate. Continue current prescription. kt/v residual a little lower but still excellent, total kt/v is fantastic. No changes needed. She has no uremia symptoms. EDW 102 Kg Peritoneal Dialysis Access Assessment Placed on: 01/2019 Surgeon - Dr. Martinez at [facility] Staff and patient report access is working [...] Anemia Assessment HEMOGLOBIN (G/DL) IN BLOOD g/dL 12.6 (10/25/19) 11.5 (09/25/19) 11.4 (09/06/19) WBC (BLOOD) 1000/mcL 6.80 (10/25/19) 6.16 (09/25/19) 6.61 (08/23/19) IRON SATURATION % 20 (10/25/19) 20 (09/25/19) 15 (08/23/19) FERRITIN ng/mL 309 (10/25/19) 147 (07/26/19) 168 (04/21/19) Hemoglobin is at goal. Iron Saturation is below goal. Ferritin is below goal. Not on FABIO Hgb at goal without FABIO Nutritional and Metabolic Assessment ALBUMIN (G/DL) g/dL 4.0 (10/25/19) 3.9 (09/25/19) 3.8 (08/23/19) BICARBONATE (CO2) mEq/L 26 (10/25/19) 22 (09/25/19) 25 (08/23/19) POTASSIUM (MMOL/L) IN SER/PLAS mEq/L 4.2 (10/25/19) 3.6 (09/25/19) 4.4 (08/23/19) Sodium mEq/L 141 (10/25/19) 141 (09/25/19) 142 (08/23/19) 25 OH VITAMIN D ng/mL 19.9 (04/21/19) 25.6 (02/20/19) Albumin is at goal. Encourage high biological value protein intake. Potassium is at goal. Bone and Mineral Metabolism Assessment Calcium mg/dL 9.3 (10/25/19) 8.5 (09/25/19) 8.8 (08/23/19) CALCIUM (MG/DL) CORRECTED FOR ALBUMIN IN SER/PLAS mg/dL 9.3 (10/25/19) 8.6 (09/25/19) 9.0 (08/23/19) CALCIUM PHOSPHORUS PRODUCT, COR 60 (10/25/19) 49 (09/25/19) 41 (08/23/19) PHOSPHATE (MG/DL) IN SER/PLAS mg/dL 6.5 (10/25/19) 5.7 (09/25/19) 4.6 (08/23/19) IPTH pg/mL 373 (10/25/19) 273 (07/26/19) 270 (04/21/19) Corrected calcium is at goal. Phosphorus is above goal. Intact PTH is at goal. 100% compliance with binders now and re-check labs today Cardiovascular Assessment Blood pressure reviewed and is acceptable. Continue same cardiovascular medications. Estimated dry weight is too low, will increase. Increase to 102 Kg today (0.5 Kg), feels excellent at this weight Transplant Status Patient has been referred. [facility] Needs to quit smoking for 3 months (she quit in August 2019), then needs one stent placed, then should be active on transplant list at [facility]. She is an excellent candidate in my opinion after these things are completed. Resuscitation Status Additional Comments: No changes today, doing great Monthly labs drawn today, will review to see if changes needed based on labs López Mariano MD [ Signed And locked electronically On 11/22/2019 at 10:14:42 AM ] Transcribed: López Mariano ( 11/22/2019 ) documented in this encounter Plan of Treatment Not on filedocumented as of this encounter Visit Diagnoses Not on filedocumented in this encounter
--- OUTSIDE RECORDS SUMMARY | 2021-12-28 14:09 | XMS_ITS | Encounter Summary ---
:1965 Author Organization [facility] Address [address] [place] [address] Care Team Providers Name Role Phone Unavailable Primary Care Provider Unavailable Encounter Details Date Type Department Care Team Description 04/24/2020 Orders Only [facility] O f López Awad MD [phone] [place] [address] [place], [place] [phone] (Wo rk) Social History Tobacco Use Types Packs/Day Years Used Date Smoking Tobacco: Never Assessed Sex Assigned at Date Recorded Not on file documented as of this encounter Plan of Treatment Not on filedocumented as of this encounter Procedures Procedure Name Priority Date/Time Associated Diagnosis Comme nts SPECIAL CHEMISTRY Routine 04/24/2020 Results fo r this procedure are in the resu lts section. IMMUNO CHEMISTRY Routine 04/24/2020 Results for this procedure are in the resu lts section. TRACE ELEMENTS Routine 04/24/2020 Results for t his procedure are in the resu lts section. HEMATOLOGY Routine 04/24/2020 Results for thi s procedure are in the resu lts section. CHEMISTRY Routine 04/24/2020 Results for thi s procedure are in the resu lts section. CHEMISTRY Routine 04/24/2020 Results for thi s procedure are in the resu lts section. documented in this encounter Results IMMUNO CHEMISTRY (04/24/2020) P athologist Signature Hepatitis B 875 mIU/mL APS SPECTRA Surface Ab [facility] Comment: [...] of the total amount of antibody present. Specimen (Source) Anatomical Collection Method Collection Time Re ceived Time Location / / Volume Laterality 04/24/2020 04/26/2020 5:28 AM COMBINATION WORKER Resulting Agency Comment Specimen source: Serum López Mariano MD LAB BLOOD ORDERABLES Performing Organization Address City/[facility] Code Phon e Number APS SPECTRA [facility] TRACE ELEMENTS (04/24/2020) P athologist Signature Aluminum <5 0 - 10 APS SPECTRA mcg/L [facility] Comment: This test was developed and its performa nce characteristics determined by [facility]. It has not been cleared or approved by the FDA. The laboratory is regulated under CLIA a s qualified to perform high complexity testing. This test is used fo r clinical purposes. It should not be regarded as investigational or fo r research. Specimen (Source) Anatomical Collection Method Collection Time Re ceived Time Location / / Volume Laterality 04/24/2020 04/25/2020 9:37 PM COMBINATION WORKER Narrative APS SPECTRA [facility] - 04/28/2020 Unless otherwise specified, test(s) performed at: [facility], [address] [place] [address] SAND HAULER: Yoseph Rose M.D. For any questions, please call customer service at FREQUENCY:QUARTERLY Resulting Agency Comment Specimen source: Serum López Mariano MD LAB BLOOD ORDERABLES Performing Organization Address [facility] Phon e Number APS SPECTRA [facility] (ABNORMAL) SPECIAL CHEMISTRY (04/24/2020) P athologist Signature Vitamin D, 11.6 (L) 30.0 - APS SPECTRA 25-OH, Total 100.0 [facility] ng/mL Comment: Vitamin D Status Classification: Deficiency ? <10.0 ng/mL Insufficiency ?10.0-30.0 ng/mL Sufficiency ?30.0-100.0 ng/mL Toxicity ? >100.0 ng/mL Vitamin B-12 540 211 - 911 pg/mL APS SPECTRA [facility] Specimen (Source) Anatomical Collection Method Collection Time Re ceived Time Location / / Volume Laterality 04/24/2020 04/26/2020 5:28 AM COMBINATION WORKER Resulting Agency Comment Specimen source: Serum López Mariano MD LAB BLOOD BANK TEST ORDERABL ES Performing Organization Address City/State/ZIP Code Phon e Number APS SPECTRA [facility] (ABNORMAL) Spectrae Chemistry (04/24/2020) [facility] gist Method Time Signature BUN 45 (H) 6 - 19 APS SPECTRA mg/dL [facility] Creatinine 6.38 (H) 0.60 - APS SPECTRA 1.30 mg/dL [facility] BUN/Creatinine 7.1 (L) 10.0 - APS SPECTRA Ratio 20.0 [facility] Sodium 140 136 - 145 APS SPECTRA mEq/L [facility] Potassium 4.0 3.5 - 5.1 APS SPECTRA mEq/L [facility] Chloride 101 96 - 108 APS SPECTRA mEq/L [facility] Bicarbonate 26 22 - 29 APS SPECTRA (CO2) mEq/L [facility] Calcium 9.3 8.4 - 10.2 APS SPECTRA mg/dL [facility] Corrected 9.1 8.4 - 10.2 APS SPECTRA Calcium mg/dL [facility] Comment: Corrected Calcium is not equivalent to m easured Ionized Calcium. Phosphorus 5.5 (H) 2.6 - 4.5 mg/dL APS SPECTRA [facility] Calcium Phosphorus Product 51 0 - 54 APS SPECTRA [facility] Calcium Phosporus Product, Cor 50 0 - 54 APS SPECTRA [facility] Alkaline Phosphatase 57 35 - 104 U/L APS SP ECTRA [facility] Albumin 4.2 3.5 - 5.2 g/dL APS SPECTRA [facility] [place] Magnesium 2.3 1.6 - 2.6 mg/dL APS SPECTRA [facility] Iron 58 30 - 160 mcg/dL APS SPECTRA [place] [facility] UIBC 251 155 - 355 mcg/dL APS SPECTRA [facility] TIBC 309 185 - 515 mcg/dL APS SPECTRA K [facility] Iron Saturation (TSat) 19 (L) 20 - 55 % APS SPE CTRA [facility] Ferritin 292 (H) 10 - 291 ng/mL APS SPECTRA [facility] [place] Specimen (Source) Anatomical Collection Method Collection Time Re ceived Time Location / / Volume Laterality 04/24/2020 04/26/2020 5:28 AM COMBINATION WORKER Narrative APS SPECTRA [facility] - 04/28/2020 Unless otherwise specified, test(s) performed at: [facility], [address] [place] [address] SAND HAULER: Yoseph Rose M.D. For any questions, please call customer service at FREQUENCY:QUARTERLY Resulting Agency Comment Specimen source: Serum López Mariano MD LAB BLOOD ORDERABLES Performing Organization Address City/[facility] Phon e Number APS SPECTRA [facility] (ABNORMAL) Spectrae Chemistry (04/24/2020) P athologist Signature PTH 460 (H) 16 - 80 APS SPECTRA pg/mL [facility] Specimen (Source) Anatomical Collection Method Collection Time Re ceived Time Location / / Volume Laterality 04/24/2020 04/25/2020 5:02 PM COMBINATION WORKER Narrative APS SPECTRA [facility] - 04/26/2020 Unless otherwise specified, test(s) performed at: [facility], [address] [place] [address] SAND HAULER: Yoseph Rose M.D. For any questions, please call customer service at FREQUENCY:QUARTERLY Resulting Agency Comment Specimen source: Plasma López Mariano MD LAB BLOOD ORDERABLES Performing Organization Address City/State/ZIP Code Phon e Number APS SPECTRA [facility] (ABNORMAL) HEMATOLOGY (04/24/2020) Patholo gist Method Time Signature WBC 6.34 4.80 - APS SPECTRA 10.80 [facility] 1000/mcL RBC 3.88 (L) 4.20 - APS SPECTRA 5.40 [facility] mill/mcL Hemoglobin 11.8 (L) 12.0 - APS SPECTRA 16.0 g/dL [facility] Hemoglobin x 3 35.4 (L) 36.0 - APS SPECTRA 48.0 % [facility] Hematocrit 35.8 (L) 37.0 - APS SPECTRA 47.0 % [facility] MCV 92 80 - 100 APS SPECTRA fl [facility] MCH 30.5 27.0 - APS SPECTRA 31.0 pg [facility] MCHC 33.0 30.0 - APS SPECTRA 36.0 g/dL [facility] RDW 13.2 11.5 - APS SPECTRA 14.5 % [facility] Neutrophils 73.0 40.0 - APS SPECTRA 75.0 % [facility] Lymphocytes 17.4 (L) 19.0 - APS SPECTRA Relative 48.0 % [facility] Monocytes 4.9 3.0 - 10.0 APS SPECTRA % [facility] Eosinophils 2.3 0.0 - 7.0 APS SPECTRA Relative % [facility] Basophils 1.3 0.0 - 1.5 APS SPECTRA Relative % [facility] JESSICA 1.2 0.0 - 4.0 APS SPECTRA % [facility] Specimen (Source) Anatomical Collection Method Collection Time Re ceived Time Location / / Volume Laterality 04/24/2020 04/25/2020 5:02 PM COMBINATION WORKER Narrative APS SPECTRA [facility] - 04/25/2020 Unless otherwise specified, test(s) performed at: [facility], [address] [place] [address] SAND HAULER: Yoseph Rose M.D. For any questions, please call customer service at FREQUENCY:QUARTERLY Resulting Agency Comment Specimen source: Blood López Mariano MD LAB BLOOD ORDERABLES Performing Organization Address City/State/ZIP Code Phon e Number APS SPECTRA [facility] documented in this encounter Visit Diagnoses Not on filedocumented in this encounter
--- OUTSIDE RECORDS SUMMARY | 2021-12-28 14:09 | XMS_ITS | Encounter Summary ---
:1965 Author Organization [facility] Address [address] [place] [address] Care Team Providers Name Role Phone Unavailable Primary Care Provider Unavailable Encounter Details Date Type Department Care Team Description 09/06/2019 Orders Only [facility] O f López Awad MD [address] [facility] [address] [place], [place] [phone] (Wo rk) Social History Tobacco Use Types Packs/Day Years Used Date Smoking Tobacco: Never Assessed Sex Assigned at Date Recorded Not on file documented as of this encounter Plan of Treatment Not on filedocumented as of this encounter Procedures Procedure Name Priority Date/Time Associated Diagnosis Comme nts HEMATOLOGY Routine 09/06/2019 Results for thi s procedure are in the resu lts section. documented in this encounter Results (ABNORMAL) HEMATOLOGY (09/06/2019) Analysis Performed At Patho logist Time Signature Hemoglobin 11.4 (L) 12.0 - APS SPECTRA 16.0 g/dL [facility] Hemoglobin x 3 34.2 (L) 36.0 - APS SPECTRA 48.0 % [facility] Specimen (Source) Anatomical Collection Method Collection Time Re ceived Time Location / / Volume Laterality 09/06/2019 09/07/2019 2:14 PM CDT Narrative APS SPECTRA [facility] - 09/07/2019 Unless otherwise specified, test(s) performed at: [facility], [address] [place] [address] ASSEMBLER SURGICAL GARMENT: Yoseph Rose M.D. For any questions, please call customer service at FREQUENCY:OTHER Resulting Agency Comment Specimen source: Blood López Mariano MD LAB BLOOD ORDERABLES Performing Organization Address City/State/ZIP Code Phon e Number APS SPECTRA [facility] documented in this encounter Visit Diagnoses Not on filedocumented in this encounter
--- OUTSIDE RECORDS SUMMARY | 2021-12-28 14:09 | XMS_ITS | Encounter Summary ---
:1965 Author Organization [facility] Address [address] [place] [address] Care Team Providers Name Role Phone Unavailable Primary Care Provider Unavailable Encounter Details Date Type Department Care Team Description 09/27/2019 Treatment [facility] f López Awad MD [address] [place], [place] [phone] (Wo rk) Social History Tobacco Use Types Packs/Day Years Used Date Smoking Tobacco: Never Assessed Sex Assigned at Date Recorded Not on file documented as of this encounter Miscellaneous Notes Dialysis Note - López Mariano MD - 09/27/2019 10:39 AM CDT Date: Sep 27, 2019 Patient Name: Stephanie Norman : 1965 Chart #: [id number] Sex: F This patient was personally seen for a complete visit as part of routine monthly dialysis care. A review of the dialysis treatment, blood pressure, estimated dry weight, and recent lab values was made.These were discussed with the patient and staff as necessary. SCOOPER: López Mariano MD LOCATION: [phone] SCHEDULE: No Routine Schedule Subjective Tolerating dialysis well. 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 Regular rhythm. Gastrointestinal - not distended Edema - No leg edema. PD catheter exit site - exit site clean per ceramic design engineer List Medication Sig Start Date aspirin 81 [...] 1 tablet by mouth twice a day loratadine 10 mg tablet Take 1 tablet [...] (03/20/19) Kt/V is adequate. Continue current prescription. Adequacy excellent. BUN/CR up a little, due for adequacy next month (residual function lower?). No clear uremia sx. Prescription currently CCPD, 4 cycles at night, 1.5L fills, no last fill, all 2.5% bags (rare red bag) EDW 101.5 Kg Peritoneal Dialysis Access Assessment Placed on: 01/2019 Surgeon - Dr. Martinez at [facility] Staff and patient report access is working well. NA 04/25/2019: Rajan placed back-up AVF in LUE [...] Ferritin is below goal. Not on FABIO Did not get full Venofer due to infiltration of access and has poor veins in other arm. Hgb stable, iron a little better, so will defer further venofer and get access taken care of and repeat Hgb and iron studies with ferritin next month. Nutritional and Metabolic Assessment ALBUMIN (G/DL) g/dL [...] no change in Sevelamer dose at this time Cardiovascular Assessment Blood pressure reviewed and is acceptable. Continue same cardiovascular medications. Estimated dry weight is appropriate. Last time discussed fluid restriction, now using all 2.5% bags as well, and she remains on torsemideand now edema is gone and wt stable. EDW is appropriate at 101.5 Kg Transplant Status Patient has been referred. [place] [facility] Needs to quit smoking for 3 months (she quit in August 2019), then needs one stent placed, then should be active on transplant list at [facility]. She is an excellent candidate in my opinion after these things are completed. Resuscitation Status Additional Comments: No changes today She will discuss Trazadone with PCP I discussed consider counselor if needed for anxiety Discussed using manual bags if misses CCPD at night for any reason and she agrees Adequacy next month planned López Mariano MD [ Signed And locked electronically On 09/27/2019 at 10:45:30 AM ] Transcribed: López Mariano ( 09/27/2019 ) documented in this encounter Plan of Treatment Not on filedocumented as of this encounter Visit Diagnoses Not on filedocumented in this encounter
--- OUTSIDE RECORDS SUMMARY | 2021-12-28 14:09 | XMS_ITS | Encounter Summary ---
:1965 Author Organization [facility] Address [address] [place] [address] Care Team Providers Name Role Phone Unavailable Primary Care Provider Unavailable Encounter Details Date Type Department Care Team Description 09/25/2019 Orders Only [facility] O f López Awad MD [address] [place] [address] [place], [place] [phone] (Wo rk) Social History Tobacco Use Types Packs/Day Years Used Date Smoking Tobacco: Never Assessed Sex Assigned at Date Recorded Not on file documented as of this encounter Plan of Treatment Not on filedocumented as of this encounter Procedures Procedure Name Priority Date/Time Associated Diagnosis Comme nts IMMUNO CHEMISTRY Routine 09/25/2019 Results for this procedure are in the resu lts section. HEMATOLOGY Routine 09/25/2019 Results for thi s procedure are in the resu lts section. CHEMISTRY Routine 09/25/2019 Results for thi s procedure are in the resu lts section. documented in this encounter Results IMMUNO CHEMISTRY (09/25/2019) P athologist Signature Hep B Surface Negative Negative APS SPECTRA Ag [facility] Specimen (Source) Anatomical Collection Method Collection Time Re ceived Time Location / / Volume Laterality 09/25/2019 09/26/2019 3:51 PM CDT Narrative APS SPECTRA [facility] - 09/26/2019 Unless otherwise specified, test(s) performed at: [facility], [address] [place] [address] LIME KILN WORKER HELPER: Yoseph Rose M.D. For any questions, please call customer service at FREQUENCY:MONTHLY Resulting Agency Comment Specimen source: Serum López Mariano MD LAB BLOOD ORDERABLES Performing Organization Address City/State/ZIP Code Phon e Number APS SPECTRA [facility] (ABNORMAL) Spectrae Chemistry (09/25/2019) [facility] gist Method Time Signature BUN 46 (H) 6 - 19 APS SPECTRA mg/dL [facility] Creatinine 4.73 (H) 0.60 - APS SPECTRA 1.30 mg/dL [facility] BUN/Creatinine 9.7 (L) 10.0 - APS SPECTRA Ratio 20.0 [facility] Sodium 141 136 - 145 APS SPECTRA mEq/L [facility] Potassium 3.6 3.5 - 5.1 APS SPECTRA mEq/L [facility] Chloride 105 96 - 108 APS SPECTRA mEq/L [facility] Bicarbonate 22 22 - 29 APS SPECTRA (CO2) mEq/L [facility] Calcium 8.5 8.4 - 10.2 APS SPECTRA mg/dL [facility] Corrected 8.6 8.4 - 10.2 APS SPECTRA Calcium mg/dL [facility] Comment: Corrected Calcium is not equivalent to m easured Ionized Calcium. Phosphorus 5.7 (H) 2.6 - 4.5 mg/dL APS SPECTRA [facility] Calcium Phosphorus Product 48 0 - 54 APS SPECTRA [facility] Calcium Phosporus Product, Cor 49 0 - 54 APS SPECTRA [facility] Albumin 3.9 3.5 - 5.2 g/dL APS SPECTRA [facility] [place] Iron 57 30 - 160 mcg/dL APS SPECTRA [facility] UIBC 227 155 - 355 mcg/dL APS SPECTRA [facility] TIBC 284 185 - 515 mcg/dL APS SPECTRA [facility] Iron Saturation (TSat) 20 20 - 55 % APS SPE CTRA [facility] Specimen (Source) Anatomical Collection Method Collection Time Re ceived Time Location / / Volume Laterality 09/25/2019 09/26/2019 3:51 PM CDT Narrative APS SPECTRA [facility] - 09/26/2019 Unless otherwise specified, test(s) performed at: [facility], [address] [place] [address] LIME KILN WORKER HELPER: Yoseph Rose M.D. For any questions, please call customer service at FREQUENCY:MONTHLY Resulting Agency Comment Specimen source: Serum López Mariano MD LAB BLOOD ORDERABLES Performing Organization Address City/State/ZIP Code Phon e Number APS SPECTRA [facility] (ABNORMAL) HEMATOLOGY (09/25/2019) Analysis Performed At Patho logist Time Signature WBC 6.16 4.80 - APS SPECTRA 10.80 [facility] 1000/mcL RBC 3.78 (L) 4.20 - APS SPECTRA 5.40 [facility] mill/mcL Hemoglobin 11.5 (L) 12.0 - APS SPECTRA 16.0 g/dL [facility] Hemoglobin x 3 34.5 (L) 36.0 - APS SPECTRA 48.0 % [facility] Hematocrit 34.5 (L) 37.0 - APS SPECTRA 47.0 % [facility] MCV 91 80 - 100 APS SPECTRA fl [facility] MCH 30.6 27.0 - APS SPECTRA 31.0 pg [facility] MCHC 33.5 30.0 - APS SPECTRA 36.0 g/dL [facility] RDW 13.6 11.5 - APS SPECTRA 14.5 % [facility] Specimen (Source) Anatomical Collection Method Collection Time Re ceived Time Location / / Volume Laterality 09/25/2019 09/26/2019 3:51 PM CDT Narrative APS SPECTRA [facility] - 09/26/2019 Unless otherwise specified, test(s) performed at: [facility], [address] [place], [place] [id number] LIME KILN WORKER HELPER: Yoseph Rose M.D. For any questions, please call customer service at FREQUENCY:MONTHLY Resulting Agency Comment Specimen source: Blood López Mariano MD LAB BLOOD ORDERABLES Performing Organization Address City/State/ZIP Code Phon e Number APS SPECTRA [facility] documented in this encounter Visit Diagnoses Not on filedocumented in this encounter
--- OUTSIDE RECORDS SUMMARY | 2021-12-28 14:09 | XMS_ITS | Encounter Summary ---
:1965 Author Organization [facility] Address [address] [place] [address] Care Team Providers Name Role Phone Unavailable Primary Care Provider Unavailable Encounter Details Date Type Department Care Team Description 06/26/2020 Orders Only [facility] O f López Awad MD [address] [place] [address] [place], [place] [phone] (Wo rk) Social History Tobacco Use Types Packs/Day Years Used Date Smoking Tobacco: Never Assessed Sex Assigned at Date Recorded Not on file documented as of this encounter Plan of Treatment Not on filedocumented as of this encounter Procedures Procedure Name Priority Date/Time Associated Diagnosis Comme nts HEMATOLOGY Routine 06/26/2020 Results for thi s procedure are in the resu lts section. CHEMISTRY Routine 06/26/2020 Results for thi s procedure are in the resu lts section. documented in this encounter Results (ABNORMAL) HEMATOLOGY (06/26/2020) [facility] gist Method Time Signature WBC 7.22 4.80 - APS SPECTRA 10.80 [facility] 1000/mcL RBC 3.31 (L) 4.20 - APS SPECTRA 5.40 [facility] mill/mcL Hemoglobin 10.7 (L) 12.0 - APS SPECTRA 16.0 g/dL [facility] Hemoglobin x 3 32.1 (L) 36.0 - APS SPECTRA 48.0 % [facility] Hematocrit 31.3 (L) 37.0 - APS SPECTRA 47.0 % [facility] MCV 95 80 - 100 APS SPECTRA fl [facility] MCH 32.4 (H) 27.0 - APS SPECTRA 31.0 pg [facility] MCHC 34.2 30.0 - APS SPECTRA 36.0 g/dL [facility] RDW 12.9 11.5 - APS SPECTRA 14.5 % [facility] Neutrophils 79.1 (H) 40.0 - APS SPECTRA 75.0 % [facility] Lymphocytes 12.1 (L) 19.0 - APS SPECTRA Relative 48.0 % [facility] Monocytes 4.2 3.0 - 10.0 APS SPECTRA % [facility] Eosinophils 2.5 0.0 - 7.0 APS SPECTRA Relative % [facility] Basophils 1.3 0.0 - 1.5 APS SPECTRA Relative % [facility] JESSICA 0.8 0.0 - 4.0 APS SPECTRA % [facility] Specimen (Source) Anatomical Collection Method Collection Time Re ceived Time Location / / Volume Laterality 06/26/2020 06/27/2020 7:02 PM MANAGED SERVICES SALES CONSULTANT Narrative APS SPECTRA [facility] - 06/27/2020 Unless otherwise specified, test(s) performed at: [facility], [address] [place] [address] PRACTICING UROLOGIST: Yoseph Rose M.D. For any questions, please call customer service at FREQUENCY:MONTHLY Resulting Agency Comment Specimen source: Blood López Mariano MD LAB BLOOD ORDERABLES Performing Organization Address City/State/ZIP Code Phon e Number APS SPECTRA [facility] (ABNORMAL) Spectrae Chemistry (06/26/2020) [facility] gist Method Time Signature BUN 41 (H) 6 - 19 APS SPECTRA mg/dL [facility] Creatinine 5.92 (H) 0.60 - APS SPECTRA 1.30 mg/dL [facility] BUN/Creatinine 6.9 (L) 10.0 - APS SPECTRA Ratio 20.0 [facility] Sodium 142 136 - 145 APS SPECTRA mEq/L [facility] Potassium 3.7 3.5 - 5.1 APS SPECTRA mEq/L [facility] Chloride 102 96 - 108 APS SPECTRA mEq/L [facility] Bicarbonate 29 22 - 29 APS SPECTRA (CO2) mEq/L [facility] Calcium 8.5 8.4 - 10.2 APS SPECTRA mg/dL [facility] Corrected 8.8 8.4 - 10.2 APS SPECTRA Calcium mg/dL [facility] Comment: Corrected Calcium is not equivalent to m easured Ionized Calcium. Phosphorus 4.2 2.6 - 4.5 mg/dL APS SPECTRA [facility] Calcium Phosphorus Product 36 0 - 54 APS SPECTRA [facility] Calcium Phosporus Product, Cor 37 0 - 54 APS SPECTRA [facility] Albumin 3.6 3.5 - 5.2 g/dL APS SPECTRA [facility] [place] Iron 36 30 - 160 mcg/dL APS SPECTRA [facility] UIBC 210 155 - 355 mcg/dL APS SPECTRA [facility] TIBC 246 185 - 515 mcg/dL APS SPECTRA [facility] Iron Saturation (TSat) 15 (L) 20 - 55 % APS SPE CTRA [facility] Specimen (Source) Anatomical Collection Method Collection Time Re ceived Time Location / / Volume Laterality 06/26/2020 06/27/2020 11:2 7 AM MANAGED SERVICES SALES CONSULTANT Narrative APS SPECTRA [facility] - 06/27/2020 Unless otherwise specified, test(s) performed at: [facility], [address] [place] [address] PRACTICING UROLOGIST: Yoseph Rose M.D. For any questions, please call customer service at FREQUENCY:MONTHLY Resulting Agency Comment Specimen source: Serum López Mariano MD LAB BLOOD ORDERABLES Performing Organization Address City/State/ZIP Code Phon e Number APS SPECTRA [facility] documented in this encounter Visit Diagnoses Not on filedocumented in this encounter
--- OUTSIDE RECORDS SUMMARY | 2021-12-28 14:09 | XMS_ITS | Encounter Summary ---
:1965 Author Organization [facility] Address [address] [place] [address] Care Team Providers Name Role Phone Unavailable Primary Care Provider Unavailable Encounter Details Date Type Department Care Team Description 01/24/2020 Orders Only [facility] O f López Awad MD [address] [place] [address] [place], [place] [phone] (Wo rk) Social History Tobacco Use Types Packs/Day Years Used Date Smoking Tobacco: Never Assessed Sex Assigned at Date Recorded Not on file documented as of this encounter Plan of Treatment Not on filedocumented as of this encounter Procedures Procedure Name Priority Date/Time Associated Diagnosis Comme nts URINE CLEARANCE Routine 01/24/2020 Results for this procedure are i n the results section . PDF CHEMISTRY Routine 01/24/2020 Results for th is procedure are i n the results section . PD ADEQUACY Routine 01/24/2020 Results for thi s procedure are i n the results section . PD ADEQUACY Routine 01/24/2020 Results for thi s procedure are i n the results section . PATIENT INFORMATION Routine 01/24/2020 Results for this procedure are i n the results section . PATIENT INFORMATION Routine 01/24/2020 Results for this procedure are i n the results section . PATIENT INFORMATION Routine 01/24/2020 Results for this procedure are i n the results section . HEMATOLOGY Routine 01/24/2020 Results for thi s procedure are i n the results section . CHEMISTRY Routine 01/24/2020 Results for thi s procedure are i n the results section . CHEMISTRY Routine 01/24/2020 Results for thi s procedure are i n the results section . documented in this encounter Results (ABNORMAL) Spectrae Chemistry (01/24/2020) P athologist Signature PTH 482 (H) 16 - 80 APS SPECTRA pg/mL [facility] Specimen (Source) Anatomical Collection Method Collection Time Re ceived Time Location / / Volume Laterality 01/24/2020 01/25/2020 7:54 PM CDT Narrative APS SPECTRA [facility] - 01/26/2020 Unless otherwise specified, test(s) performed at: [facility], [address] [place] [address] DIAMOND SETTER: Yoseph Rose M.D. For any questions, please call customer service at FREQUENCY:MONTHLY Resulting Agency Comment Specimen source: Plasma López Mariano MD LAB BLOOD ORDERABLES Performing Organization Address [facility] Phon e Number APS SPECTRA [facility] PD ADEQUACY (01/24/2020) athologist Signature Kt/V, Residual 1.01 APS SPECTRA [facility] Creat Clear, 76 L/wk APS SPECTRA Urine Nor Wkly [facility] Specimen (Source) Anatomical Collection Method Collection Time Re ceived Time Location / / Volume Laterality 01/24/2020 01/25/2020 12:1 4 PM CDT Narrative APS SPECTRA [facility] - 01/26/2020 Unless otherwise specified, test(s) performed at: [facility], [address] [place] [id number] DIAMOND SETTER: Yoseph Rose M.D. For any questions, please call customer service at FREQUENCY:MONTHLY Resulting Agency Comment Specimen source: Urine López Mariano MD LAB BODY FLUIDS AND STOOLS O RDERABLES Performing Organization Address City/[facility] Phon e Number APS SPECTRA [facility] (ABNORMAL) Spectrae Chemistry (01/24/2020) Patholo gist Method Time Signature BUN 29 (H) 6 - 19 APS SPECTRA mg/dL [facility] Creatinine 4.82 (H) 0.60 - APS SPECTRA 1.30 mg/dL [facility] BUN/Creatinine 6.0 (L) 10.0 - APS SPECTRA Ratio 20.0 [facility] Sodium 141 136 - 145 APS SPECTRA mEq/L [facility] Potassium 3.6 3.5 - 5.1 APS SPECTRA mEq/L [facility] Chloride 104 96 - 108 APS SPECTRA mEq/L [facility] Bicarbonate 24 22 - 29 APS SPECTRA (CO2) mEq/L [facility] Calcium 8.8 8.4 - 10.2 APS SPECTRA mg/dL [facility] Corrected 8.9 8.4 - 10.2 APS SPECTRA Calcium mg/dL [facility] Comment: Corrected Calcium is not equivalent to m easured Ionized Calcium. Phosphorus 4.2 2.6 - 4.5 mg/dL APS SPECTRA [facility] Calcium Phosphorus Product 37 0 - 54 APS SPECTRA [facility] Calcium Phosporus Product, Cor 37 0 - 54 APS SPECTRA [facility] Alkaline Phosphatase 53 35 - 104 U/L APS SP ECTRA [facility] Albumin 3.9 3.5 - 5.2 g/dL APS SPECTRA [facility] [place] Magnesium 2.1 1.6 - 2.6 mg/dL APS SPECTRA [facility] Ferritin 232 10 - 291 ng/mL APS SPECTRA [facility] [place] Iron 67 30 - 160 mcg/dL APS SPECTRA [facility] UIBC 214 155 - 355 mcg/dL APS SPECTRA [facility] TIBC 281 185 - 515 mcg/dL APS SPECTRA [facility] Iron Saturation (TSat) 24 20 - 55 % APS SPE CTRA [facility] Specimen (Source) Anatomical Collection Method Collection Time Re ceived Time Location / / Volume Laterality 01/24/2020 01/25/2020 6:36 PM CDT Narrative APS SPECTRA [facility] - 01/26/2020 Unless otherwise specified, test(s) performed at: [facility], [address] [place] [address] DIAMOND SETTER: Yoseph Rose M.D. For any questions, please call customer service at FREQUENCY:MONTHLY Resulting Agency Comment Specimen source: Serum López Mariano MD LAB BLOOD ORDERABLES Performing Organization Address City/State/ZIP Code Phon e Number APS SPECTRA [facility] (ABNORMAL) HEMATOLOGY (01/24/2020) Analysis Performed At Patho logist Time Signature WBC 7.89 4.80 - APS SPECTRA 10.80 [facility] 1000/mcL RBC 3.68 (L) 4.20 - APS SPECTRA 5.40 [facility] mill/mcL Hemoglobin 11.9 (L) 12.0 - APS SPECTRA 16.0 g/dL [facility] Hemoglobin x 3 35.7 (L) 36.0 - APS SPECTRA 48.0 % [facility] Hematocrit 35.1 (L) 37.0 - APS SPECTRA 47.0 % [facility] MCV 95 80 - 100 APS SPECTRA fl [facility] MCH 32.2 (H) 27.0 - APS SPECTRA 31.0 pg [facility] MCHC 33.8 30.0 - APS SPECTRA 36.0 g/dL [facility] RDW 13.4 11.5 - APS SPECTRA 14.5 % [facility] Specimen (Source) Anatomical Collection Method Collection Time Re ceived Time Location / / Volume Laterality 01/24/2020 01/25/2020 7:54 PM CDT Narrative APS SPECTRA [facility] - 01/26/2020 Unless otherwise specified, test(s) performed at: [facility], [address] [place], [place] [phone] DIAMOND SETTER: Yoseph Rose M.D. For any questions, please call customer service at FREQUENCY:MONTHLY Resulting Agency Comment Specimen source: Blood López Mariano MD LAB BLOOD ORDERABLES Performing Organization Address City/State/ZIP Code Phon e Number APS SPECTRA [facility] (ABNORMAL) URINE CLEARANCE (01/24/2020) P athologist Signature Urea Nitrogen, 356 mg/dL APS SPECTRA Urine Timed [facility] Urea Nitrogen, 1.8 (L) 12.0 - APS SPECTRA Urine 24 Hr 20.0 g/24 [facility] hr Creatinine, 129.6 mg/dL APS SPECTRA Urine Timed [facility] Creatinine, 24H 0.6 0.5 - 1.6 APS SPECTRA Ur g/24 hr [facility] Urea Clear, 3.4 (L) 64.0 - APS SPECTRA Urine Norm 99.0 [facility] mL/min Urea Clearance, 4.3 (L) 64.0 - APS SPECTRA Urine 99.0 [facility] mL/min Urea Clear, 43 L/wk APS SPECTRA Urine Norm Wkly [facility] Creatinine 9.3 mL/min APS SPECTRA Clear, Urine [facility] Creat Clear, 7.5 (L) 77.0 - APS SPECTRA Urine Norm 94.0 [facility] mL/min Creat Clear, 93.7 L/wk APS SPECTRA Urine Wkly [facility] Specimen (Source) Anatomical Collection Method Collection Time Re ceived Time Location / / Volume Laterality 01/24/2020 01/25/2020 12:1 4 PM CDT Resulting Agency Comment Specimen source: Urine López Mariano MD LAB URINE ORDERABLES Performing Organization Address City/State/ZIP Code Phon e Number APS SPECTRA [facility] PD ADEQUACY (01/24/2020) P athologist Signature PNA, Normalized 0.56 g/kg/day APS SPECTRA [facility] PNA 41 g/day APS SPECTRA [facility] Kt/V, Total 1.90 APS SPECTRA [facility] Comment: KDOQI Guidelines recommend weekly Kt/V o f >=1.7 for adults. Kt/V, Peritoneal 0.89 APS SPECTRA [facility] Creat Clear, Tot Norm Wkly 92 L/wk APS SPECTRA [facility] Creat Clear, PDF Norm Wkly 16 L/wk APS SPECTRA [facility] Specimen (Source) Anatomical Collection Method Collection Time Re ceived Time Location / / Volume Laterality 01/24/2020 01/25/2020 12:1 4 PM CDT Narrative APS SPECTRA [facility] - 01/26/2020 Unless otherwise specified, test(s) performed at: [facility], [address] [place], [place] [phone] DIAMOND SETTER: Yoseph Rose M.D. For any questions, please call customer service at FREQUENCY:MONTHLY Resulting Agency Comment Specimen source: PD Fluid López Mariano MD LAB BODY FLUIDS AND STOOLS O RDERABLES Performing Organization Address City/[facility] Code Phon e Number APS SPECTRA [facility] PATIENT INFORMATION (01/24/2020) athologist Signature Patient BSA 2.14 sq. M. APS SPECTRA [facility] Comment: Normalized values are calculated using t he patient's actual BSA and normalized to the average BSA of 1.73m2. Specimen (Source) Anatomical Collection Method Collection Time Re ceived Time Location / / Volume Laterality 01/24/2020 01/25/2020 6:36 PM CDT Narrative APS SPECTRA [facility] - 01/25/2020 Unless otherwise specified, test(s) performed at: [facility], [address] [place] [address] DIAMOND SETTER: Yoseph Rose M.D. For any questions, please call customer service at FREQUENCY:MONTHLY Resulting Agency Comment Specimen source: PD Fluid López Mariano MD LAB BLOOD ORDERABLES Performing Organization Address City/State/ZIP Code Phon e Number APS SPECTRA [facility] PDF CHEMISTRY (01/24/2020) P athologist Signature Urea Nitrogen, 1,605.2 mg/24 hr APS SPECTRA PDF 24 Hr [facility] Urea Nitrogen, 23 mg/dL APS SPECTRA PDF Timed [facility] Comment: A reference range for this assay has not been established for body fluids. If blood results are available f or this analyte, results may be interpreted in comparison to those resul ts. Creatinine, PDF Timed Uncor 2.2 mg/dL AP S SPECTRA [facility] Comment: A reference range for this assay has not been established for body fluids. If blood results are available f or this analyte, results may be interpreted in comparison to those resul ts. Creatinine, PDF Timed Cor 2.0 mg/dL APS SPECTRA [facility] Comment: Creatinine values have been corrected fo r glucose interference. [facility] glucose correction factor f or creatinine is 0.0002. Creatinine, PDF 24 Hr 139.6 mg/24 hr APS SPEC TRA [facility] Glucose, PDF Timed 1,226 mg/dL APS SPECTRA [facility] Comment: A reference range for this assay has not been established for body fluids. If blood results are available f or this analyte, results may be interpreted in comparison to those resul ts. Urea Clearance, PD Fluid 3.8 mL/min APS S PECTRA [facility] Urea Clearance, PDF Norm 3.1 mL/min APS S PECTRA [facility] Urea Clear, Tot Norm Wkly 81 L/wk APS SPECTRA [facility] Urea Clear, PDF Norm Wkly 38 L/wk APS SPECTRA [facility] Creatinine Clear, PDF 2.0 mL/min APS SPEC TRA [facility] Creatinine Clear, PDF Norm 1.6 mL/min APS SPECTRA [facility] Creat Clear, PDF Norm Wkly 20 L/wk APS SPECTRA [facility] Creat Clear, Tot Wkly 114 L/wk APS SPEC TRA [facility] Specimen (Source) Anatomical Collection Method Collection Time Re ceived Time Location / / Volume Laterality 01/24/2020 01/25/2020 12:1 4 PM CDT Resulting Agency Comment Specimen source: PD Fluid López Mariano MD LAB BODY FLUIDS AND STOOLS O RDERABLES Performing Organization Address City/State/ZIP Code Phon e Number APS SPECTRA [facility] PATIENT INFORMATION (01/24/2020) P athologist Signature Urea Volume 42.7 L APS SPECTRA Distribution [facility] ([place]) Specimen (Source) Anatomical Collection Method Collection Time Re ceived Time Location / / Volume Laterality 01/24/2020 01/25/2020 12:1 4 PM CDT Narrative APS SPECTRA [facility] - 01/25/2020 Unless otherwise specified, test(s) performed at: [facility], [address] [place] [address] DIAMOND SETTER: Yoseph Rose M.D. For any questions, please call customer service at FREQUENCY:MONTHLY Resulting Agency Comment Specimen source: PD Fluid López Mariano MD LAB BLOOD ORDERABLES Performing Organization Address City/[facility] Phon e Number APS SPECTRA [facility] PATIENT INFORMATION (01/24/2020) P athologist Signature Patient Weight 101.7 APS SPECTRA [facility] Patient Height 172.0 APS SPECTRA [facility] Amputee Status NO APS SPECTRA [facility] Amputee Parts NONE APS SPECTRA [facility] Drain volume, 6,979 APS SPECTRA PDF [facility] Collection 24.0 APS SPECTRA Time, PDF [facility] Urine Volume 500 APS SPECTRA [facility] Collection 24.0 APS SPECTRA Interval, Ur [facility] Specimen (Source) Anatomical Location Collection Method / Collectio n Time Received Time / Laterality Volume 01/24/2020 01/24/2020 Narrative APS SPECTRA [facility] - 01/25/2020 Unless otherwise specified, test(s) performed at: [facility], [address] [place] [address] DIAMOND SETTER: Yoseph Rose M.D. For any questions, please call customer service at FREQUENCY:MONTHLY Resulting Agency Comment Specimen source: PD Fluid López Mariano MD LAB BLOOD ORDERABLES Performing Organization Address City/[facility] Phon e Number APS SPECTRA [facility] documented in this encounter Visit Diagnoses Not on filedocumented in this encounter
--- OUTSIDE RECORDS SUMMARY | 2021-12-28 14:09 | XMS_ITS | Encounter Summary ---
:1965 Author Organization [facility] Address [address] [place] [address] Care Team Providers Name Role Phone Unavailable Primary Care Provider Unavailable Encounter Details Date Type Department Care Team Description 02/21/2020 Orders Only [facility] O f López Awad MD [address] [place] [address] [place], [place] [phone] (Wo rk) Social History Tobacco Use Types Packs/Day Years Used Date Smoking Tobacco: Never Assessed Sex Assigned at Date Recorded Not on file documented as of this encounter Plan of Treatment Not on filedocumented as of this encounter Procedures Procedure Name Priority Date/Time Associated Diagnosis Comme nts IMMUNO CHEMISTRY Routine 02/21/2020 Results for this procedure are in the resu lts section. HEMATOLOGY Routine 02/21/2020 Results for thi s procedure are in the resu lts section. CHEMISTRY Routine 02/21/2020 Results for thi s procedure are in the resu lts section. documented in this encounter Results (ABNORMAL) HEMATOLOGY (02/21/2020) [facility] gist Method Time Signature WBC 6.12 4.80 - APS SPECTRA 10.80 [facility] 1000/mcL RBC 3.67 (L) 4.20 - APS SPECTRA 5.40 [facility] mill/mcL Hemoglobin 11.7 (L) 12.0 - APS SPECTRA 16.0 g/dL [facility] Hemoglobin x 3 35.1 (L) 36.0 - APS SPECTRA 48.0 % [facility] Hematocrit 34.9 (L) 37.0 - APS SPECTRA 47.0 % [facility] MCV 95 80 - 100 APS SPECTRA fl [facility] MCH 31.8 (H) 27.0 - APS SPECTRA 31.0 pg [facility] MCHC 33.4 30.0 - APS SPECTRA 36.0 g/dL [facility] RDW 13.7 11.5 - APS SPECTRA 14.5 % [facility] Neutrophils 72.9 40.0 - APS SPECTRA 75.0 % [facility] Lymphocytes 17.3 (L) 19.0 - APS SPECTRA Relative 48.0 % [facility] Monocytes 4.8 3.0 - 10.0 APS SPECTRA % [facility] Eosinophils 2.5 0.0 - 7.0 APS SPECTRA Relative % [facility] Basophils 1.5 0.0 - 1.5 APS SPECTRA Relative % [facility] JESSICA 0.9 0.0 - 4.0 APS SPECTRA % [facility] Platelets 255 130 - 400 APS SPECTRA 1000/mcL [facility] Specimen (Source) Anatomical Collection Method Collection Time Re ceived Time Location / / Volume Laterality 02/21/2020 02/22/2020 9:57 PM ORDNANCE ARTIFICER Narrative APS SPECTRA [facility] - 02/23/2020 Unless otherwise specified, test(s) performed at: [facility], [address] [place] [id number] COMPUTER ENGINEERING PROFESSOR: Yoseph Rose M.D. For any questions, please call customer service at FREQUENCY:MONTHLY Resulting Agency Comment Specimen source: Blood López Mariano MD LAB BLOOD ORDERABLES Performing Organization Address City/State/ZIP Code Phon e Number APS SPECTRA [facility] IMMUNO CHEMISTRY (02/21/2020) P athologist Signature Hep B Surface Negative Negative APS SPECTRA Ag [facility] Specimen (Source) Anatomical Collection Method Collection Time Re ceived Time Location / / Volume Laterality 02/21/2020 02/22/2020 1:44 PM ORDNANCE ARTIFICER Resulting Agency Comment Specimen source: Serum López Mariano MD LAB BLOOD ORDERABLES Performing Organization Address City/State/ZIP Code Phon e Number APS SPECTRA [facility] (ABNORMAL) Spectrae Chemistry (02/21/2020) Patholo gist Method Time Signature BUN 39 (H) 6 - 19 APS SPECTRA mg/dL [facility] Creatinine 4.80 (H) 0.60 - APS SPECTRA 1.30 mg/dL [facility] BUN/Creatinine 8.1 (L) 10.0 - APS SPECTRA Ratio 20.0 [facility] Sodium 139 136 - 145 APS SPECTRA mEq/L [facility] Potassium 3.8 3.5 - 5.1 APS SPECTRA mEq/L [facility] Chloride 104 96 - 108 APS SPECTRA mEq/L [facility] Bicarbonate 23 22 - 29 APS SPECTRA (CO2) mEq/L [...] 2.6 mg/dL APS SPECTRA [facility] Iron 80 30 - 160 mcg/dL APS SPECTRA [facility] UIBC 208 155 - 355 mcg/dL APS SPECTRA [facility] TIBC 288 185 - 515 mcg/dL APS SPECTRA [facility] Iron Saturation (TSat) 28 20 - 55 % APS SPE CTRA [facility] Specimen (Source) Anatomical Collection Method Collection Time Re ceived Time Location / / Volume Laterality 02/21/2020 02/22/2020 1:44 PM ORDNANCE ARTIFICER Narrative APS SPECTRA [facility] - 02/22/2020 Unless otherwise specified, test(s) performed at: [facility], [address] [place], [place] [phone] COMPUTER ENGINEERING PROFESSOR: Yoseph Rose M.D. For any questions, please call customer service at FREQUENCY:MONTHLY Resulting Agency Comment Specimen source: Serum López Mariano MD LAB BLOOD ORDERABLES Performing Organization Address City/State/ZIP Code Phon e Number APS SPECTRA [facility] documented in this encounter Visit Diagnoses Not on filedocumented in this encounter
--- OUTSIDE RECORDS SUMMARY | 2021-12-28 14:09 | XMS_ITS | Encounter Summary ---
:1965 Author Organization [facility] Address [address] [place] [address] Care Team Providers Name Role Phone Unavailable Primary Care Provider Unavailable Encounter Details Date Type Department Care Team Description 06/26/2020 Treatment [facility] f López Awad MD [address] [place], [place] [phone] (Wo rk) Social History Tobacco Use Types Packs/Day Years Used Date Smoking Tobacco: Never Assessed Sex Assigned at Date Recorded Not on file documented as of this encounter Miscellaneous Notes Dialysis Note - López Mariano MD - 06/26/2020 10:31 AM CST Date: Jun 26, 2020 Patient Name: Stephanie Norman : 1965 Chart #: [id number] Sex: F This patient was personally seen for a complete visit as part of routine monthly dialysis care. A review of the dialysis treatment, blood pressure, estimated dry weight, and recent lab values was made.These were discussed with the patient and staff as necessary. ELECTRIC SERVICEMAN: López Mariano MD LOCATION: [phone] SCHEDULE: No Routine Schedule Subjective Tolerating dialysis well. 06/26/20: She is feeling excellent. No issues [...] he is home. 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 Treatment and Adequacy Assessment BUN mg/dL 38 (05/22/20) 45 (04/24/20) 39 (04/03/20) CREATININE (MG/DL) IN SER/PLAS mg/dL 5.51 (05/22/20) 6.38 (04/24/20) 5.27 (04/03/20) KT/V, PERITONEAL L/wk 1.01 (04/03/20) 0.89 (01/24/20) [...] Anemia Assessment HEMOGLOBIN (G/DL) IN BLOOD g/dL 11.2 (05/22/20) 11.8 (04/24/20) 12.5 (03/20/20) PLATELETS 1000/mcL 255 (02/21/20) WBC (BLOOD) 1000/mcL 6.81 (05/22/20) 6.34 (04/24/20) 9.37 (03/20/20) IRON SATURATION % 17 (05/22/20) 19 (04/24/20) 21 (03/20/20) FERRITIN ng/mL 292 (04/24/20) 232 (01/24/20) 309 (10/25/19) Hemoglobin is at goal. Iron Saturation is below goal. Ferritin is below goal. Will adjust FABIO and intravenous iron. Not on FABIO Nutritional and Metabolic Assessment ALBUMIN (G/DL) g/dL 4.0 (05/22/20) 4.2 (04/24/20) 4.0 (03/20/20) BICARBONATE (CO2) mEq/L 26 (05/22/20) 26 (04/24/20) 25 (03/20/20) POTASSIUM (MMOL/L) IN SER/PLAS mEq/L 3.7 (05/22/20) 4.0 (04/24/20) 4.0 (03/20/20) Sodium mEq/L 138 (05/22/20) 140 (04/24/20) 138 (03/20/20) 25 OH VITAMIN D ng/mL 11.6 (04/24/20) 19.9 (04/21/19) 25.6 (02/20/19) Albumin is at goal. Encourage high biological value protein intake. Potassium is at goal. Bone and Mineral Metabolism Assessment Calcium mg/dL 8.8 (05/22/20) 9.3 (04/24/20) 9.0 (04/03/20) CALCIUM (MG/DL) CORRECTED FOR ALBUMIN IN SER/PLAS mg/dL 8.8 (05/22/20) 9.1 (04/24/20) 9.0 (02/21/20) CALCIUM PHOSPHORUS PRODUCT, COR 48 (05/22/20) 50 (04/24/20) 41 (02/21/20) PHOSPHATE (MG/DL) IN SER/PLAS mg/dL 5.4 (05/22/20) 5.5 (04/24/20) 4.4 (03/20/20) IPTH pg/mL 460 (04/24/20) 482 (01/24/20) 373 (10/25/19) Corrected calcium is at goal. Phosphorus is at goal. Intact PTH is at goal. 100% compliance with binders now and improved phos control Cardiovascular Assessment Blood pressure reviewed and is acceptable. Continue same cardiovascular medications. Estimated dry weight is too high, will decrease. EDW to 220 lbs today Transplant Status Patient has been referred. Center - [facility] She wants to switch to [facility], wasn't happy with [facility] and recommendations from cardiology after her angiogram. She saw Dr. Patel at [facility] and no intervention required, changed to Lipitor from Simvastatin and recommended smoking cessation (which I strongly recommend as well). Insurance apparently requires [place] for [facility] transplant program and she will inquire further and see if they can send me paperwork regarding this. She has been slow to call, will do so. She also started smoking again, motivated toquit again next month. She possibly has living donor (her adult child) but she has developmental delay that would need to be investigated. Resuscitation Status Additional Comments: No changes to prescription beside change in dry weight Labs today, will review when back and make any adjustments necessary Adequacy to be done this month Discussed smoking cessation and contacting [facility] Tx program again López Mariano MD [ Signed And locked electronically On 06/26/2020 at 10:36:09 AM ] Transcribed: López Mariano ( 06/26/2020 ) documented in this encounter Plan of Treatment Not on filedocumented as of this encounter Visit Diagnoses Not on filedocumented in this encounter
--- OUTSIDE RECORDS SUMMARY | 2021-12-28 14:09 | XMS_ITS | Encounter Summary ---
:1965 Author Organization [facility] Address [address] [place] [address] Care Team Providers Name Role Phone Unavailable Primary Care Provider Unavailable Encounter Details Date Type Department Care Team Description 03/20/2020 Orders Only [facility] O f López Awad MD [phone] [place] [address] [place], [place] [phone] (Wo rk) Social History Tobacco Use Types Packs/Day Years Used Date Smoking Tobacco: Never Assessed Sex Assigned at Date Recorded Not on file documented as of this encounter Plan of Treatment Not on filedocumented as of this encounter Procedures Procedure Name Priority Date/Time Associated Diagnosis Comme nts HEMATOLOGY Routine 03/20/2020 Results for thi s procedure are in the resu lts section. CHEMISTRY Routine 03/20/2020 Results for thi s procedure are in the resu lts section. documented in this encounter Results (ABNORMAL) HEMATOLOGY (03/20/2020) [facility] gist Method Time Signature WBC 9.37 4.80 - [facility] 10.80 [facility] 1000/mcL RBC 3.97 (L) 4.20 - [facility] 5.40 [facility] mill/mcL Hemoglobin 12.5 12.0 - [facility] 16.0 g/dL [facility] Hemoglobin x 3 37.5 36.0 - [facility] 48.0 % [facility] Hematocrit 37.6 37.0 - [facility] 47.0 % [facility] MCV 95 80 - 100 [facility] fl [facility] MCH 31.5 (H) 27.0 - [facility] 31.0 pg [facility] MCHC 33.3 30.0 - [facility] 36.0 g/dL [facility] RDW 14.0 11.5 - [facility] 14.5 % [facility] Neutrophils 80.1 (H) 40.0 - [facility] 75.0 % [facility] Lymphocytes 10.8 (L) 19.0 - [facility] Relative 48.0 % [facility] Monocytes 4.6 3.0 - 10.0 [facility] % [facility] Eosinophils 1.8 0.0 - 7.0 [facility] Relative % [facility] Basophils 1.4 0.0 - 1.5 [facility] Relative % [facility] JESSICA 1.3 0.0 - 4.0 [facility] % [facility] Specimen (Source) Anatomical Collection Method Collection Time Re ceived Time Location / / Volume Laterality 03/20/2020 03/21/2020 2:28 PM GRAIN GRADER Narrative [facility] - 03/21/2020 Unless otherwise specified, test(s) performed at: [facility], [address] [place] [id number] INVESTMENT MANAGER: Yoseph Rose M.D. For any questions, please call customer service at FREQUENCY:MONTHLY Resulting Agency Comment Specimen source: Blood López Mariano MD LAB BLOOD ORDERABLES Performing Organization Address City/State/ZIP Code Phon e Number [facility]PS SPECTRA [facility] (ABNORMAL) Spectrae Chemistry (03/20/2020) [facility] Method Time Signature BUN 52 (H) 6 - 19 [facility] mg/dL [facility] Creatinine 5.46 (H) 0.60 - [facility] 1.30 mg/dL [facility] BUN/Creatinine 9.5 (L) 10.0 - [facility] Ratio 20.0 [facility] Sodium 138 136 - 145 [facility] mEq/L [facility] Potassium 4.0 3.5 - 5.1 [facility] mEq/L [facility] Chloride 100 96 - 108 [facility] mEq/L [facility] Bicarbonate 25 22 - 29 [facility] (CO2) mEq/L [facility] Phosphorus 4.4 2.6 - 4.5 [facility] mg/dL [facility] Albumin 4.0 3.5 - 5.2 [facility] g/dL [facility] Iron 62 30 - 160 [facility] mcg/dL [facility] UIBC 230 155 - 355 [facility] mcg/dL [facility] TIBC 292 185 - 515 [facility] mcg/dL [facility] Iron Saturation 21 20 - 55 % [facility] (TSat) [facility] Specimen (Source) Anatomical Collection Method Collection Time Re ceived Time Location / / Volume Laterality 03/20/2020 03/21/2020 10:4 4 AM GRAIN GRADER Narrative [facility] - 03/21/2020 Unless otherwise specified, test(s) performed at: [facility], [address] [place] [address] INVESTMENT MANAGER: Yoseph Rose M.D. For any questions, please call customer service at FREQUENCY:MONTHLY Resulting Agency Comment Specimen source: Serum López Mariano MD LAB BLOOD ORDERABLES Performing Organization Address City/State/ZIP Code Phon e Number [facility]PS [facility] documented in this encounter Visit Diagnoses Not on filedocumented in this encounter
--- OUTSIDE RECORDS SUMMARY | 2021-12-28 14:09 | XMS_ITS | Encounter Summary ---
:1965 Author Organization [facility] Address [address] [place] [address] Care Team Providers Name Role Phone Unavailable Primary Care Provider Unavailable Encounter Details Date Type Department Care Team Description 09/06/2019 Treatment [facility] López Awad MD [address] [place], [place] [phone] (Wo rk) Social History Tobacco Use Types Packs/Day Years Used Date Smoking Tobacco: Never Assessed Sex Assigned at Date Recorded Not on file documented as of this encounter Miscellaneous Notes Dialysis Note - López Mariano MD - 09/06/2019 10:45 AM CDT Date: September 06, 2019 Patient Name: Stephanie Norman : 1965 Chart #: [id number] Sex: F This patient was personally seen for a complete visit as part of routine monthly dialysis care. A review of the dialysis treatment, blood pressure, estimated dry weight, and recent lab values was made.These were discussed with the patient and staff as necessary. TELEGRAPH SERVICE RATER: López Mariano MD LOCATION: [phone] SCHEDULE: No Routine Schedule Subjective Tolerating dialysis well. 09/05: Patient seen in person today. She [...] beside edema as above Exam Respiratory - breathing comfortably on room air Cardiovascular - Regular rate. Gastrointestinal - Normal bowel sounds, soft, non-tender. Edema - No leg edema. PD catheter exit site - exit site clean, scar tissue surrounding tubing present Medication List Medication Sig Start Date aspirin [...] a day with meals. 1 tab with meal and snack simvastatin 10 mg tablet 1 tablet by mouth at bedtime. take 1 tablet by mouth at bedtime torsemide 20 mg tablet Take 2 tablet by mouth once a day Allergy List Allergen Reaction Reaction Severity Onset Date neomycin Skin rash PENICILLINS Skin rash Medications reviewed and no changes were made. Treatment and Adequacy Assessment BUN mg/dL 34 (08/23/19) 36 (08/07/19) 42 (07/26/19) CREATININE (MG/DL) IN SER/PLAS mg/dL 3.92 (08/23/19) 3.79 (08/07/19) 4.08 (07/26/19) KT/V, PERITONEAL L/wk 0.77 (08/07/19) 0.80 (04/21/19) 0.80 (03/20/19) KT/V, RESIDUAL L/wk 1.95 (08/07/19) 2.04 (04/21/19) 2.12 (03/20/19) Kt/V is adequate. Continue current prescription. Adequacy excellent Prescription currently CCPD, 4 cycles at night, 1.5L fills, no last fill, all 2.5% bags (rare red bag) EDW 101.5 Kg Peritoneal Dialysis Access Assessment Placed on: 01/2019 Surgeon - Dr. Martinez at [facility] Staff and patient report access is working [...] Assessment HEMOGLOBIN (G/DL) IN BLOOD g/dL 11.0 (08/23/19) 11.5 (07/26/19) 11.0 (06/19/19) WBC (BLOOD) 1000/mcL 6.61 (08/23/19) 5.84 (07/26/19) 5.63 (06/19/19) IRON SATURATION % 15 (08/23/19) 16 (07/26/19) 24 (06/19/19) FERRITIN ng/mL 147 (07/26/19) 168 (04/21/19) 199 (03/20/19) Hemoglobin is at goal. Iron Saturation is below goal. Ferritin is below goal. Not on FABIO Will give Venofer 200mg IV x3 doses (today and next two times she comes in to limit number of exposures to clinic and given stable Hgb) Nutritional and Metabolic Assessment ALBUMIN (G/DL) g/dL 3.8 (08/23/19) 4.1 (07/26/19) 4.0 (06/19/19) BICARBONATE (CO2) mEq/L 25 (08/23/19) 26 (07/26/19) 27 (06/19/19) POTASSIUM (MMOL/L) IN SER/PLAS mEq/L 4.4 (08/23/19) 4.3 (07/26/19) 4.2 (06/19/19) Sodium mEq/L 142 (08/23/19) 142 (07/26/19) 140 (06/19/19) 25 OH VITAMIN D ng/mL 19.9 (04/21/19) 25.6 (02/20/19) Albumin is below goal. Encourage high biological value protein intake. Potassium is at goal. Bone and Mineral Metabolism Assessment Calcium mg/dL 8.8 (08/23/19) 9.2 (07/26/19) 9.0 (06/19/19) CALCIUM (MG/DL) CORRECTED FOR ALBUMIN IN SER/PLAS mg/dL 9.0 (08/23/19) 9.1 (07/26/19) 9.0 (06/19/19) CALCIUM PHOSPHORUS PRODUCT, COR 41 (08/23/19) 52 (07/26/19) 48 (06/19/19) PHOSPHATE (MG/DL) IN SER/PLAS mg/dL 4.6 (08/23/19) 4.8 (08/07/19) 5.7 (07/26/19) IPTH pg/mL 273 (07/26/19) 270 (04/21/19) 137 (02/20/19) Corrected calcium is at goal. Phosphorus is at goal. Intact PTH is at goal. Cardiovascular Assessment Blood pressure reviewed and is acceptable. Continue same cardiovascular medications. Estimated dry weight is appropriate. Adjust dextrose in PD fluid to Last time discussed fluid restriction, now using all 2.5% bags as well, and she remains on torsemideand now edema is gone and wt stable. EDW is appropriate at 101.5 Kg Transplant Status Patient has been referred. [place] [facility] Needs to quit smoking for 3 months (she quit at beginning of August 2019), then needs one stent placed,then should be active on transplant list at [facility]. She is an excellent candidate in my opinion after these things are completed. Resuscitation Status Additional Comments: No changes today, Venofer as above, doing very well on PD López Mariano MD [ Signed And locked electronically On 09/06/2019 at 10:50:44 AM ] Transcribed: López Mariano ( 09/06/2019 ) documented in this encounter Plan of Treatment Not on filedocumented as of this encounter Visit Diagnoses Not on filedocumented in this encounter
--- OUTSIDE RECORDS SUMMARY | 2021-12-28 14:09 | XMS_ITS | Encounter Summary ---
:1965 Author Organization [facility] Address [address] [place] [address] Care Team Providers Name Role Phone Unavailable Primary Care Provider Unavailable Encounter Details Date Type Department Care Team Description 10/25/2019 Orders Only [facility] O f López Awad MD [address] [place] [address] [place], [place] [phone] (Wo rk) Social History Tobacco Use Types Packs/Day Years Used Date Smoking Tobacco: Never Assessed Sex Assigned at Date Recorded Not on file documented as of this encounter Plan of Treatment Not on filedocumented as of this encounter Procedures Procedure Name Priority Date/Time Associated Diagnosis Comme nts URINE CLEARANCE Routine 10/25/2019 Results for this procedure are i n the results section . PDF CHEMISTRY Routine 10/25/2019 Results for th is procedure are i n the results section . PD ADEQUACY Routine 10/25/2019 Results for thi s procedure are i n the results section . PD ADEQUACY Routine 10/25/2019 Results for thi s procedure are i n the results section . IMMUNO CHEMISTRY Routine 10/25/2019 Results for this procedure are i n the results section . PATIENT INFORMATION Routine 10/25/2019 Results for this procedure are i n the results section . PATIENT INFORMATION Routine 10/25/2019 Results for this procedure are i n the results section . PATIENT INFORMATION Routine 10/25/2019 Results for this procedure are i n the results section . HEMATOLOGY Routine 10/25/2019 Results for thi s procedure are i n the results section . CHEMISTRY Routine 10/25/2019 Results for thi s procedure are i n the results section . CHEMISTRY Routine 10/25/2019 Results for thi s procedure are i n the results section . documented in this encounter Results (ABNORMAL) URINE CLEARANCE (10/25/2019) Analysis Performed At Patho logist Time Signature Urea Nitrogen, 474 mg/dL [facility] Urine Timed [facility] Urea Nitrogen, 2.8 (L) 12.0 - [facility] Urine 24 Hr 20.0 g/24 [facility] hr Urea Clear, 4.4 (L) 64.0 - [facility] Urine Norm 99.0 [facility] mL/min Urea Clearance, 5.5 (L) 64.0 - [facility] Urine 99.0 [facility] mL/min Urea Clear, 55 L/wk [facility] Urine Norm Wkly [facility] Creatinine, 145.3 mg/dL [facility] Urine Timed [facility] Creatinine, 24H 0.9 0.5 - 1.6 [facility] Ur g/24 hr [facility] Creatinine 14.4 mL/min [facility] Clear, Urine [facility] Creat Clear, 11.7 (L) 77.0 - [facility] Urine Norm 94.0 [facility] mL/min Creat Clear, 145.2 L/wk [facility] Urine Wkly [facility] Specimen (Source) Anatomical Collection Method Collection Time Re ceived Time Location / / Volume Laterality 10/25/2019 10/28/2019 12:1 9 PM CDT Resulting Agency Comment Specimen source: Urine López Mariano MD LAB URINE ORDERABLES Performing Organization Address City/State/[facility] Code Phon e Number [facility]PS [facility] PD ADEQUACY (10/25/2019) P athologist Signature Kt/V, Residual 1.29 [facility] Creat Clear, 118 L/wk [facility] Urine Nor Wkly [facility] Specimen (Source) Anatomical Collection Method Collection Time Re ceived Time Location / / Volume Laterality 10/25/2019 10/28/2019 12:1 9 PM CDT Narrative [facility] - 10/28/2019 Unless otherwise specified, test(s) performed at: [facility], [address] [place] [id number] ARM REST BUILDER: Yoseph Rose M.D. For any questions, please call customer service at FREQUENCY:OTHER Resulting Agency Comment Specimen source: Urine López Mariano MD LAB BODY FLUIDS AND STOOLS O RDERABLES Performing Organization Address City/State/ZIP Code Phon e Number [facility]PS [facility] PDF CHEMISTRY (10/25/2019) P athologist Signature Urea Nitrogen, 2,739.8 mg/24 hr [facility] PDF 24 Hr [facility] Urea Nitrogen, 35 mg/dL [facility] PDF Timed [facility] Comment: A reference range for this assay has not been established for body fluids. If blood results are available f or this analyte, results may be interpreted in comparison to those resul ts. Urea Clearance, PD Fluid 4.0 mL/min APS S PECTRA [facility] Urea Clearance, PDF Norm 3.2 mL/min APS S PECTRA [facility] Urea Clear, Tot Norm Wkly 95 L/wk [facility]PS SPECT[facility] Urea Clear, PDF Norm Wkly 40 L/wk [facility] Creatinine, PDF Timed Uncor 2.4 mg/dL AP S SPECTRA [facility] Comment: A reference range for this assay has not been established for body fluids. If blood results are available f or this analyte, results may be interpreted in comparison to those resul ts. Creatinine, PDF Timed Cor 2.1 mg/dL [facility] Comment: Creatinine values have been corrected fo r glucose interference. [facility] glucose correction factor f or creatinine is 0.0002. Creatinine, PDF 24 Hr 164.4 mg/24 hr APS SPEC TRA [facility] Creatinine Clear, PDF 2.0 mL/min APS SPEC TRA [facility] Creatinine Clear, PDF Norm 1.6 mL/min [facility] Creat Clear, PDF Norm Wkly 20 L/wk [facility] Creat Clear, Tot Wkly 165 L/wk APS SPEC TRA [facility] Glucose, PDF Timed 1,700 mg/dL [facility] Comment: A reference range for this assay has not been established for body fluids. If blood results are available f or this analyte, results may be interpreted in comparison to those resul ts. Specimen (Source) Anatomical Collection Method Collection Time Re ceived Time Location / / Volume Laterality 10/25/2019 10/28/2019 12:4 0 PM CDT Resulting Agency Comment Specimen source: PD Fluid López Mariano MD LAB BODY FLUIDS AND STOOLS O RDERABLES Performing Organization Address City/State/ZIP Code Phon e Number APS SPECTRA [facility] PD ADEQUACY (10/25/2019) athologist Signature Kt/V, Total 2.23 [facility] Comment: KDOQI Guidelines recommend weekly Kt/V o f >=1.7 for adults. Kt/V, Peritoneal 0.94 APS SPECTRA K [facility] PNA, Normalized 0.89 g/kg/day APS SPECT[facility]N PNA 65 g/day [facility]PS SPECTRA [facility] Creat Clear, Tot Norm Wkly 134 L/wk APS SPECTRA [facility] Creat Clear, PDF Norm Wkly 16 L/wk [facility]PS SPECTRA [facility] Specimen (Source) Anatomical Collection Method Collection Time Re ceived Time Location / / Volume Laterality 10/25/2019 10/28/2019 12:4 0 PM CDT Narrative APS SPECTRA [facility] - 10/28/2019 Unless otherwise specified, test(s) performed at: [facility], [address] [place] [address] ARM REST BUILDER: Yoseph Rose M.D. For any questions, please call customer service at FREQUENCY:OTHER Resulting Agency Comment Specimen source: PD Fluid López Mariano MD LAB BODY FLUIDS AND STOOLS O RDERABLES Performing Organization Address City/[facility]/ZIP Code Phon e Number APS SPECTRA [facility] PATIENT INFORMATION (10/25/2019) athologist [facility] Urea Volume 42.6 L APS SPECTRA Distribution [facility] ([place]ania) Specimen (Source) Anatomical Collection Method Collection Time Re ceived Time Location / / Volume Laterality 10/25/2019 10/28/2019 12:4 0 PM CDT Narrative APS SPECTRA [facility] - 10/28/2019 Unless otherwise specified, test(s) performed at: [facility], [address] [place], [place] [id number] ARM REST BUILDER: Yoseph Rose M.D. For any questions, please call customer service at FREQUENCY:OTHER Resulting Agency Comment Specimen source: PD Fluid López Mariano MD LAB BLOOD ORDERABLES Performing Organization Address City/[facility]/ZIP [facility] Phon e Number APS SPECTRA [facility] (ABNORMAL) Spectrae Chemistry (10/25/2019) athologist Signature PTH 373 (H) 16 - 80 APS [facility]PECTRA pg/mL [facility] Specimen (Source) Anatomical Collection Method Collection Time Re ceived Time Location / / Volume Laterality 10/25/2019 10/26/2019 11:1 1 AM CDT Narrative APS SPECTRA [facility] - 10/27/2019 Unless otherwise specified, test(s) performed at: [facility], [address] [place] [address] ARM REST BUILDER: Yoseph Rose M.D. For any questions, please call customer service at FREQUENCY:OTHER Resulting Agency Comment Specimen source: Plasma López Mariano MD LAB BLOOD ORDERABLES Performing Organization Address City/State/[facility] Code Phon e Number APS SPECTRA [facility] IMMUNO CHEMISTRY (10/25/2019) P athologist Signature Hep B Surface Negative Negative [facility] Ag [facility] Hepatitis B >1,000 mIU/mL [facility] Surface Ab [facility] Comment: [...] ceived Time Location / / Volume Laterality 10/25/2019 10/26/2019 11:2 7 AM CDT Resulting Agency Comment Specimen source: Serum López Mariano MD LAB BLOOD ORDERABLES Performing Organization Address City/State/ZIP Code Phon e Number APS SPECTRA [facility] (ABNORMAL) HEMATOLOGY (10/25/2019) Patholo gist Method Time Signature WBC 6.80 4.80 - [facility]PS [facility]RA 10.80 [facility] 1000/mcL RBC 3.95 (L) 4.20 - APS SPECTRA 5.40 [facility] mill/mcL Hemoglobin 12.6 12.0 - [facility]RA 16.0 g/dL [facility] Hemoglobin x 3 37.8 36.0 - [facility]RA 48.0 % [facility] Hematocrit 37.6 37.0 - [facility]PS [facility]RA 47.0 % [facility] MCV 95 80 - 100 [facility] fl [facility] MCH 31.8 (H) 27.0 - [facility]PS [facility]PECTRA 31.0 pg [facility] MCHC 33.5 30.0 - [facility]RA 36.0 g/dL [facility] RDW 14.2 11.5 - [facility]PS [facility]RA 14.5 % [facility] Neutrophils 73.3 40.0 - [facility]PS [facility]RA 75.0 % [facility] Lymphocytes 17.7 (L) 19.0 - APS [facility]RA Relative 48.0 % [facility] Monocytes 3.5 3.0 - 10.0 APS SPECT[facility] % [facility] Eosinophils 3.4 0.0 - 7.0 [facility] Relative % [facility] Basophils 1.0 0.0 - 1.5 [facility] Relative % [facility] JESSICA 1.1 0.0 - 4.0 APS SPECT[facility] % [facility] Specimen (Source) Anatomical Collection Method Collection Time Re ceived Time Location / / Volume Laterality 10/25/2019 10/26/2019 11:1 1 AM CDT Narrative APS SPECTRA [facility] - 10/26/2019 Unless otherwise specified, test(s) performed at: [facility], [address] [place] [address] ARM REST BUILDER: Yoseph Rose M.D. For any questions, please call customer service at FREQUENCY:OTHER Resulting Agency Comment Specimen source: Blood López Mariano MD LAB BLOOD ORDERABLES Performing Organization Address City/State/ZIP Code Phon e Number APS SPECTRA [facility] (ABNORMAL) Spectrae Chemistry (10/25/2019) [facility] gist Method Time Signature BUN 48 (H) 6 - 19 APS SPECTRA mg/dL [facility] Creatinine 5.60 (H) 0.60 - APS SPECTRA 1.30 mg/dL [facility] BUN/Creatinine 8.6 (L) 10.0 - APS SPECTRA Ratio 20.0 [...] equivalent to m easured Ionized Calcium. Phosphorus 6.5 (H) 2.6 - 4.5 mg/dL APS SPECTRA K [facility] Calcium Phosphorus Product 60 (H) 0 - 54 APS SPECTRA [facility] Calcium Phosporus Product, Cor 60 (H) 0 - 54 APS SPECTRA [facility] Alkaline Phosphatase 48 35 - 104 U/L APS SP ECTRA [facility] Albumin 4.0 3.5 - 5.2 g/dL [facility] [place] Magnesium 2.4 1.6 - 2.6 mg/dL APS SPECTRA [place] [facility] Iron 60 30 - 160 mcg/dL APS [facility] [place] [facility] UIBC 235 155 - 355 mcg/dL APS SPECTRA K [facility] TIBC 295 185 - 515 mcg/dL APS SPECTRA K [facility] Iron Saturation (TSat) 20 20 - 55 % APS SPE CTRA [facility] Ferritin 309 (H) 10 - 291 ng/mL [facility]PS SPECTRA [facility] Specimen (Source) Anatomical Collection Method Collection Time Re ceived Time Location / / Volume Laterality 10/25/2019 10/26/2019 11:2 7 AM CDT Narrative APS SPECTRA [facility] - 10/26/2019 Unless otherwise specified, test(s) performed at: [facility], [address] [place] [id number] ARM REST BUILDER: Yoseph Rose M.D. For any questions, please call customer service at FREQUENCY:OTHER Resulting Agency Comment Specimen source: Serum López Mariano MD LAB BLOOD ORDERABLES Performing Organization Address City/State/ZIP Code Phon e Number APS SPECTRA [facility] PATIENT INFORMATION (10/25/2019) P athologist Signature Patient BSA 2.14 sq. M. [facility]PS SPECT[facility] Comment: Normalized values are calculated using t he patient's actual BSA and normalized to the average BSA of 1.73m2. Specimen (Source) Anatomical Collection Method Collection Time Re ceived Time Location / / Volume Laterality 10/25/2019 10/26/2019 11:2 7 AM CDT Narrative APS SPECTRA [facility] - 10/26/2019 Unless otherwise specified, test(s) performed at: [facility], [address] [place] [address] ARM REST BUILDER: Yoseph Rose M.D. For any questions, please call customer service at FREQUENCY:OTHER Resulting Agency Comment Specimen source: PD Fluid López Mariano MD LAB BLOOD ORDERABLES Performing Organization Address City/[facility] Phon e Number APS SPECTRA [facility] PATIENT INFORMATION (10/25/2019) P athologist Signature Patient Weight 101.5 APS SPECTRA [facility] Patient Height 172.0 APS SPECTRA [facility] Amputee Status NO APS SPECTRA [facility] Amputee Parts NONE [facility]PS SPECTRA [facility] Drain volume, 7,828 [facility] PDF [facility] Collection 24.0 [facility] Time, PDF [facility] Urine Volume 600 [facility]PS SPECT[facility] Collection 18.0 APS [facility]RA Interval, Ur [facility] Specimen (Source) Anatomical Location Collection Method / Collectio n Time Received Time / Laterality Volume 10/25/2019 10/25/2019 Narrative APS SPECTRA [facility] - 10/26/2019 Unless otherwise specified, test(s) performed at: [facility], [address] [place] [id number] ARM REST BUILDER: Yoseph Rose M.D. For any questions, please call customer service at FREQUENCY:OTHER Resulting Agency Comment Specimen source: PD Fluid López Mariano MD LAB BLOOD ORDERABLES Performing Organization Address City/[facility] Phon e Number APS SPECTRA [facility] documented in this encounter Visit Diagnoses Not on filedocumented in this encounter
--- OUTSIDE RECORDS SUMMARY | 2021-12-28 14:09 | XMS_ITS | Encounter Summary ---
:1965 Author Organization [facility] Address [address] [place] [address] Care Team Providers Name Role Phone Unavailable Primary Care Provider Unavailable Encounter Details Date Type Department Care Team Description 12/20/2019 Treatment [facility] López Awad MD [address] [place], [place] [address] [phone] (Wo rk) Social History Tobacco Use Types Packs/Day Years Used Date Smoking Tobacco: Never Assessed Sex Assigned at Date Recorded Not on file documented as of this encounter Miscellaneous Notes Dialysis Note - López Mariano MD - 12/20/2019 10:42 AM CDT Date: Dec 20, 2019 Patient Name: Stephanie Norman : 1965 Chart #: [id number] Sex: F This patient was personally seen for a complete visit as part of routine monthly dialysis care. A review of the dialysis treatment, blood pressure, estimated dry weight, and recent lab values was made.These were discussed with the patient and staff as necessary. TECHNICAL SUPPORT AGENT: López Mariano MD LOCATION: [phone] SCHEDULE: No Routine Schedule Subjective Tolerating dialysis well. 12/19: Stephanie is really under a lot of stress at home with a son with mental health problems that becomes violent and angry very quickly, in and out of facility and requires respite care and her other kids have to stay elsewhere when he is home. 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 03/22: Stephaine is doing really well. She is using [...] Regular rhythm. No murmur heard. Gastrointestinal - nl BS, non-distended Edema - Trace edema. PD catheter exit site - exit site clean per apple thinner List Medication Sig Start Date aspirin 81 [...] made. Treatment and Adequacy Assessment BUN mg/dL 44 (11/22/19) 48 (10/25/19) 46 (09/25/19) CREATININE (MG/DL) IN SER/PLAS mg/dL 5.80 (11/22/19) 5.60 (10/25/19) 4.73 (09/25/19) KT/V, PERITONEAL L/wk 0.94 (10/25/19) 0.77 (08/07/19) 0.80 (04/21/19) KT/V, RESIDUAL L/wk 1.29 (10/25/19) 1.95 (08/07/19) 2.04 (04/21/19) Kt/V is adequate. Continue current prescription. kt/v residual is lower but still excellent total kt/v. No changes needed. She has no uremia symptoms. EDW 102 Kg Peritoneal Dialysis Access Assessment Placed on: 01/2019 Surgeon - Dr. Martinez at [facility] [place] Staff and patient [...] Assessment HEMOGLOBIN (G/DL) IN BLOOD g/dL 11.8 (11/22/19) 12.6 (10/25/19) 11.5 (09/25/19) WBC (BLOOD) 1000/mcL 5.57 (11/22/19) 6.80 (10/25/19) 6.16 (09/25/19) IRON SATURATION % 25 (11/22/19) 20 (10/25/19) 20 (09/25/19) FERRITIN ng/mL 309 (10/25/19) 147 (07/26/19) 168 (04/21/19) Hemoglobin is at goal. Iron Saturation is at goal. Ferritin is below goal. Not on FABIO Hgb at goal without FABIO Nutritional and Metabolic Assessment ALBUMIN (G/DL) g/dL 3.8 (11/22/19) 4.0 (10/25/19) 3.9 (09/25/19) BICARBONATE (CO2) mEq/L 26 (11/22/19) 26 (10/25/19) 22 (09/25/19) POTASSIUM (MMOL/L) IN SER/PLAS mEq/L 4.2 (11/22/19) 4.2 (10/25/19) 3.6 (09/25/19) Sodium mEq/L 142 (11/22/19) 141 (10/25/19) 141 (09/25/19) 25 OH VITAMIN D ng/mL 19.9 (04/21/19) 25.6 (02/20/19) Albumin is below goal. Encourage high biological value protein intake. Potassium is at goal. Bone and Mineral Metabolism Assessment Calcium mg/dL 9.0 (11/22/19) 9.3 (10/25/19) 8.5 (09/25/19) CALCIUM (MG/DL) CORRECTED FOR ALBUMIN IN SER/PLAS mg/dL 9.2 (11/22/19) 9.3 (10/25/19) 8.6 (09/25/19) CALCIUM PHOSPHORUS PRODUCT, COR 52 (11/22/19) 60 (10/25/19) 49 (09/25/19) PHOSPHATE (MG/DL) IN SER/PLAS mg/dL 5.6 (11/22/19) 6.5 (10/25/19) 5.7 (09/25/19) IPTH pg/mL 373 (10/25/19) 273 (07/26/19) 270 (04/21/19) Corrected calcium is at goal. Phosphorus is above goal. Intact PTH is at goal. 100% compliance with binders now and re-check labs today Cardiovascular Assessment Blood pressure reviewed and is acceptable. Continue same cardiovascular medications. Estimated dry weight is appropriate. Transplant Status Patient has been referred. Center - [place] Needs to quit smoking for 3 months (she quit in August 2019), then needed angiogram (done, no stent required as previously thought), now not on list however due to cardiac function with recommendation forexercise program and repeat VO2 max and stress testing in 03/2020 by [place]. Resuscitation Status Additional Comments: No changes to PD prescription, adequacy excellent last time, BP's excellent, only using 2.5% bags, BP controlled Monthly labs to be drawn today López Mariano MD [ Signed And locked electronically On 12/20/2019 at 10:47:19 AM ] Transcribed: López Mariano ( 12/20/2019 ) documented in this encounter Plan of Treatment Not on filedocumented as of this encounter Visit Diagnoses Not on filedocumented in this encounter
--- OUTSIDE RECORDS SUMMARY | 2021-12-28 14:09 | XMS_ITS | Encounter Summary ---
:1965 Author Organization [facility] Address [address] [place] [address] Care Team Providers Name Role Phone Unavailable Primary Care Provider Unavailable Encounter Details Date Type Department Care Team Description 07/31/2020 Orders Only [facility] f López Awad MD [address] [place] [address] [place], [place] [phone] (Wo rk) Social History Tobacco Use Types Packs/Day Years Used Date Smoking Tobacco: Never Assessed Sex Assigned at Date Recorded Not on file documented as of this encounter Plan of Treatment Not on filedocumented as of this encounter Procedures Procedure Name Priority Date/Time Associated Diagnosis Comme nts HEMATOLOGY Routine 07/31/2020 Results for thi s procedure are in the resu lts section. CHEMISTRY Routine 07/31/2020 Results for thi s procedure are in the resu lts section. CHEMISTRY Routine 07/31/2020 Results for thi s procedure are in the resu lts section. documented in this encounter Results (ABNORMAL) Spectrae Chemistry (07/31/2020) P athologist Signature PTH 429 (H) 16 - 80 APS SPECTRA pg/mL [facility] Specimen (Source) Anatomical Collection Method Collection Time Re ceived Time Location / / Volume Laterality 07/31/2020 08/01/2020 6:41 PM CDT Narrative APS SPECTRA [facility] - 08/02/2020 Unless otherwise specified, test(s) performed at: [facility], [address] [place] [id number] ASSEMBLER CLIP ON SUNGLASSES: Yoseph Rose M.D. For any questions, please call customer service at FREQUENCY:QUARTERLY Resulting Agency Comment Specimen source: Plasma López Mariano MD LAB BLOOD ORDERABLES Performing Organization Address City/State/ZIP Code Phon e Number APS SPECTRA [facility] (ABNORMAL) HEMATOLOGY (07/31/2020) [facility] gist Method Time Signature WBC 7.10 4.80 - [facility]PS [facility]RA 10.80 [facility] 1000/mcL RBC 3.40 (L) 4.20 - [facility]PS [facility]RA 5.40 [facility] mill/mcL Hemoglobin 10.8 (L) 12.0 - [facility] 16.0 g/dL [facility] Hemoglobin x 3 32.4 (L) 36.0 - [facility]PS [facility]RA 48.0 % [facility] Hematocrit 33.0 (L) 37.0 - APS [facility] 47.0 % [facility] MCV 97 80 - 100 A[facility] S[facility] fl [facility] MCH 31.6 (H) 27.0 - [facility] 31.0 pg [facility] MCHC 32.6 30.0 - [facility] 36.0 g/dL [facility] RDW 13.7 11.5 - [facility] 14.5 % [facility] Neutrophils 75.2 (H) 40.0 - [facility]RA 75.0 % [facility] Lymphocytes 15.3 (L) 19.0 - APS [facility] Relative 48.0 % [facility] Monocytes 5.2 3.0 - 10.0 A[facility] % [facility] Eosinophils 2.3 0.0 - 7.0 APS [facility] Relative % [facility] Basophils 1.2 0.0 - 1.5 APS [facility] Relative % [facility] JESSICA 0.7 0.0 - 4.0 APS SPECTRA % [facility] Specimen (Source) Anatomical Collection Method Collection Time Re ceived Time Location / / Volume Laterality 07/31/2020 08/01/2020 6:41 PM CDT Narrative [facility]PS [facility]PECT[facility] - 08/01/2020 Unless otherwise specified, test(s) performed at: [facility], [address] [place] [id number] ASSEMBLER CLIP ON SUNGLASSES: Yoseph Rose M.D. For any questions, please call customer service at FREQUENCY:QUARTERLY Resulting Agency Comment Specimen source: Blood López Mariano MD LAB BLOOD ORDERABLES Performing Organization Address City/State/ZIP Code Phon e Number APS SPECTRA [facility] (ABNORMAL) Spectrae Chemistry (07/31/2020) [facility] gist Method Time Signature BUN 45 (H) 6 - 19 APS SPECTRA mg/dL [facility] Creatinine 6.52 (H) 0.60 - APS SPECTRA 1.30 mg/dL [...] - 54 APS SPECTRA [facility] Alkaline Phosphatase 58 35 - 104 U/L APS SP ECTRA [facility] Albumin 3.9 3.5 - 5.2 g/dL [facility]PS S[facility] [place] Magnesium 2.3 1.6 - 2.6 mg/dL APS SPECT[facility] Ferritin 228 10 - 291 ng/mL [facility] [place] Iron 50 30 - 160 mcg/dL APS SPECT[facility] [place] [facility] UIBC 279 155 - 355 mcg/dL APS SPECTRA [facility] TIBC 329 185 - 515 mcg/dL APS SPECTRA K [facility] Iron Saturation (TSat) 15 (L) 20 - 55 % APS SPE CTRA [facility] Specimen (Source) Anatomical Collection Method Collection Time Re ceived Time Location / / Volume Laterality 07/31/2020 08/01/2020 11:3 7 AM CDT Narrative APS SPECTRA [facility] - 08/01/2020 Unless otherwise specified, test(s) performed at: [facility], [address] [place] [id number] ASSEMBLER CLIP ON SUNGLASSES: Yoseph Rose M.D. For any questions, please call customer service at FREQUENCY:QUARTERLY Resulting Agency Comment Specimen source: Serum López Mariano MD LAB BLOOD ORDERABLES Performing Organization Address City/State/ZIP Code Phon e Number [facility]PS SPECTRA [facility] documented in this encounter Visit Diagnoses Not on filedocumented in this encounter
--- OUTSIDE RECORDS SUMMARY | 2021-12-28 14:10 | XMS_ITS | Encounter Summary ---
:1965 Author Organization [facility] Address [address] [place] [address] Care Team Providers Name Role Phone Unavailable Primary Care Provider Unavailable Encounter Details Date Type Department Care Team Description 07/26/2019 Orders Only [facility] O f López Awad MD [address] [place] [address] [place], [place] [phone] (Wo rk) Social History Tobacco Use Types Packs/Day Years Used Date Smoking Tobacco: Never Assessed Sex Assigned at Date Recorded Not on file documented as of this encounter Plan of Treatment Not on filedocumented as of this encounter Procedures Procedure Name Priority Date/Time Associated Diagnosis Comme nts HEMATOLOGY Routine 07/26/2019 Results for thi s procedure are in the resu lts section. CHEMISTRY Routine 07/26/2019 Results for thi s procedure are in the resu lts section. CHEMISTRY Routine 07/26/2019 Results for thi s procedure are in the resu lts section. documented in this encounter Results (ABNORMAL) Spectrae Chemistry (07/26/2019) P athologist Signature PTH 273 (H) 16 - 80 APS SPECTRA pg/mL [facility] Specimen (Source) Anatomical Collection Method Collection Time Re ceived Time Location / / Volume Laterality 07/26/2019 07/27/2019 11:2 0 AM CDT Narrative [facility]PS SPECTRA [facility] - 07/27/2019 Unless otherwise specified, test(s) performed at: [facility], [address] [place] [id number] THREAD SPOOLER: Yoseph Rose M.D. For any questions, please call customer service at FREQUENCY:MONTHLY Resulting Agency Comment Specimen source: Plasma López Mariano MD LAB BLOOD ORDERABLES Performing Organization Address City/State/ZIP Code Phon e Number APS SPECTRA [facility] (ABNORMAL) HEMATOLOGY (07/26/2019) Analysis Performed At Patho logist Time Signature WBC 5.84 4.80 - APS SPECTRA 10.80 [facility] 1000/mcL RBC 3.73 (L) 4.20 - APS SPECTRA 5.40 [facility] mill/mcL Hemoglobin 11.5 (L) 12.0 - APS SPECTRA 16.0 g/dL [facility] Hemoglobin x 3 34.5 (L) 36.0 - APS SPECTRA 48.0 % [facility] Hematocrit 35.3 (L) 37.0 - APS SPECTRA 47.0 % [facility] MCV 94 80 - 100 APS SPECTRA fl [facility] MCH 30.7 27.0 - APS SPECTRA 31.0 pg [facility] MCHC 32.5 30.0 - APS SPECTRA 36.0 g/dL [facility] RDW 13.0 11.5 - APS SPECTRA 14.5 % [facility] Specimen (Source) Anatomical Collection Method Collection Time Re ceived Time Location / / Volume Laterality 07/26/2019 07/27/2019 11:2 0 AM CDT Narrative APS SPECTRA [facility] - 07/27/2019 Unless otherwise specified, test(s) performed at: [facility], [address] [place] [id number] THREAD SPOOLER: Yoseph Rose M.D. For any questions, please call customer service at FREQUENCY:MONTHLY Resulting Agency Comment Specimen source: Blood López Mariano MD LAB BLOOD ORDERABLES Performing Organization Address City/[facility]/ZIP Code Phon e Number APS SPECTRA [facility] (ABNORMAL) Spectrae Chemistry (07/26/2019) Patholo gist Method Time Signature Ferritin 147 10 - 291 APS SPECTRA ng/mL [facility] BUN 42 (H) 6 - 19 APS SPECTRA mg/dL [facility] Creatinine 4.08 (H) 0.60 - APS SPECTRA 1.30 mg/dL [facility] BUN/Creatinine 10.3 10.0 - APS SPECTRA Ratio 20.0 [facility] [...] 52 0 - 54 APS SPECTRA [facility] Alkaline Phosphatase 52 35 - 104 U/L APS SP ECTRA [facility] Albumin 4.1 3.5 - 5.2 g/dL [facility]PS S[facility] [place] Magnesium 2.2 1.6 - 2.6 mg/dL [facility] Iron 49 30 - 160 mcg/dL [facility] UIBC 257 155 - 355 mcg/dL APS SPECTRA K [facility] TIBC 306 185 - 515 mcg/dL APS SPECTRA K [facility] Iron Saturation (TSat) 16 (L) 20 - 55 % APS SPE CTRA [facility] Specimen (Source) Anatomical Collection Method Collection Time Re ceived Time Location / / Volume Laterality 07/26/2019 07/27/2019 11:4 7 AM CDT Narrative APS SPECTRA [facility] - 07/27/2019 Unless otherwise specified, test(s) performed at: [facility], [address] [place] [address] THREAD SPOOLER: Yoseph Rose M.D. For any questions, please call customer service at FREQUENCY:MONTHLY Resulting Agency Comment Specimen source: Serum López Mariano MD LAB BLOOD ORDERABLES Performing Organization Address City/State/ZIP Code Phon e Number [facility]PS [facility]RA [facility] documented in this encounter Visit Diagnoses Not on filedocumented in this encounter
--- OUTSIDE RECORDS SUMMARY | 2021-12-28 14:10 | XMS_ITS | Encounter Summary ---
:1965 Author Organization [facility] Address [address] [place] [address] Care Team Providers Name Role Phone Unavailable Primary Care Provider Unavailable Encounter Details Date Type Department Care Team Description 05/22/2019 Orders Only [facility] O f López Awad MD [address] [place] [address] [place], [place] [phone] (Wo rk) Social History Tobacco Use Types Packs/Day Years Used Date Smoking Tobacco: Never Assessed Sex Assigned at Date Recorded Not on file documented as of this encounter Plan of Treatment Not on filedocumented as of this encounter Procedures Procedure Name Priority Date/Time Associated Diagnosis Comme nts HEMATOLOGY Routine 05/22/2019 Results for thi s procedure are in the resu lts section. CHEMISTRY Routine 05/22/2019 Results for thi s procedure are in the resu lts section. documented in this encounter Results (ABNORMAL) Spectrae Chemistry (05/22/2019) [facility] gist Method Time Signature BUN 34 (H) 6 - 19 APS SPECTRA mg/dL [facility] Creatinine 3.53 (H) 0.60 - APS SPECTRA 1.30 mg/dL [facility] BUN/Creatinine 9.6 (L) 10.0 - APS SPECTRA Ratio 20.0 [...] APS SPECTRA [facility] Calcium Phosphorus Product 47 0 - 54 APS SPECTRA [facility] Calcium Phosporus Product, Cor 46 0 - 54 APS SPECTRA [facility] Albumin 4.1 3.5 - 5.2 g/dL [facility] [place] Iron 57 30 - 160 mcg/dL [facility] UIBC 264 155 - 355 mcg/dL APS SPECTRA [facility] TIBC 321 185 - 515 mcg/dL APS SPECTRA K [facility] Iron Saturation (TSat) 18 (L) 20 - 55 % APS SPE CTRA [facility] Specimen (Source) Anatomical Collection Method Collection Time Re ceived Time Location / / Volume Laterality 05/22/2019 05/23/2019 4:35 PM BOX LINER Narrative [facility]PS SPECTRA [facility] - 05/23/2019 Unless otherwise specified, test(s) performed at: [facility], [address] [place] [address] SHADE BANDER: Rika lew M.D. For any questions, please call customer service at FREQUENCY:MONTHLY Resulting Agency Comment Specimen source: Serum López Mariano MD LAB BLOOD ORDERABLES Performing Organization Address City/State/ZIP Code Phon e Number APS SPECTRA [facility] (ABNORMAL) HEMATOLOGY (05/22/2019) Analysis Performed At Patho logist Time Signature WBC 5.50 4.80 - APS SPECTRA 10.80 [facility] 1000/mcL RBC 3.89 (L) 4.20 - APS SPECTRA 5.40 [facility] mill/mcL Hemoglobin 12.2 12.0 - APS SPECTRA 16.0 g/dL [facility] Hemoglobin x 3 36.6 36.0 - APS [facility]RA 48.0 % [facility] Hematocrit 37.5 37.0 - [facility]RA 47.0 % [facility] MCV 96 80 - 100 APS SPECTRA fl [facility] MCH 31.3 (H) 27.0 - APS SPECTRA 31.0 pg [facility] MCHC 32.4 30.0 - APS SPECTRA 36.0 g/dL [facility] RDW 13.2 11.5 - APS SPECTRA 14.5 % [facility] Specimen (Source) Anatomical Collection Method Collection Time Re ceived Time Location / / Volume Laterality 05/22/2019 05/23/2019 5:13 PM BOX LINER Narrative APS SPECTRA [facility] - 05/23/2019 Unless otherwise specified, test(s) performed at: [facility], [address] [place] [id number] SHADE BANDER: Rika lew M.D. For any questions, please call customer service at FREQUENCY:MONTHLY Resulting Agency Comment Specimen source: Blood López Mariano MD LAB BLOOD ORDERABLES Performing Organization Address City/State/ZIP Code Phon e Number APS SPECTRA [facility] documented in this encounter Visit Diagnoses Not on filedocumented in this encounter
--- OUTSIDE RECORDS SUMMARY | 2021-12-28 14:10 | XMS_ITS | Encounter Summary ---
:1965 Author Organization [facility] Address [address] [place] [address] Care Team Providers Name Role Phone Unavailable Primary Care Provider Unavailable Encounter Details Date Type Department Care Team Description 03/20/2019 Orders Only [facility] L[facility]pez Awad MD [phone] [place] [address] [place], [place] [phone] (Wo rk) Social History Tobacco Use Types Packs/Day Years Used Date Smoking Tobacco: Never Assessed Sex Assigned at Date Recorded Not on file documented as of this encounter Plan of Treatment Not on filedocumented as of this encounter Procedures Procedure Name Priority Date/Time Associated Diagnosis Comme nts URINE CLEARANCE Routine 03/20/2019 Results for this procedure are i n the results section . PDF CHEMISTRY Routine 03/20/2019 Results for th is procedure are i n the results section . PD ADEQUACY Routine 03/20/2019 Results for thi s procedure are i n the results section . PD ADEQUACY Routine 03/20/2019 Results for thi s procedure are i n the results section . IMMUNO CHEMISTRY Routine 03/20/2019 Results for this procedure are i n the results section . PATIENT INFORMATION Routine 03/20/2019 Results for this procedure are i n the results section . PATIENT INFORMATION Routine 03/20/2019 Results for this procedure are i n the results section . PATIENT INFORMATION Routine 03/20/2019 Results for this procedure are i n the results section . HEMATOLOGY Routine 03/20/2019 Results for thi s procedure are i n the results section . CHEMISTRY Routine 03/20/2019 Results for thi s procedure are i n the results section . documented in this encounter Results (ABNORMAL) URINE CLEARANCE (03/20/2019) Analysis Performed At Patho logist Time Signature Urea Nitrogen, 201 mg/dL [facility] Urine Timed [facility] Urea Nitrogen, 3.2 (L) 12.0 - [facility] Urine 24 Hr 20.0 g/24 [facility] hr Urea Clear, 7.3 (L) 64.0 - [facility] Urine Norm 99.0 [facility] mL/min Urea Clearance, 8.9 (L) 64.0 - [facility] Urine 99.0 [facility] mL/min Urea Clear, 90 L/wk [facility] Urine Norm Wkly [facility] Creatinine, 64.2 mg/dL [facility] Urine Timed [facility] Creatinine, 24H 1.0 0.5 - 1.6 [facility] Ur g/24 hr [facility] Creatinine 20.9 mL/min [facility] Clear, Urine [facility] Creat Clear, 17.0 (L) 77.0 - [facility] Urine Norm 94.0 [facility] mL/min Creat Clear, 210.7 L/wk [facility] Urine Wkly [facility] Specimen (Source) Anatomical Collection Method Collection Time Re ceived Time Location / / Volume Laterality 03/20/2019 03/22/2019 7:47 AM [facility] Resulting Agency Comment Specimen source: Urine López Mariano MD LAB URINE ORDERABLES Performing Organization Address City/State/ZIP Code Phon e Number [facility] PD ADEQUACY (03/20/2019) P athologist Signature Kt/V, Residual 2.12 [facility] Creat Clear, 171 L/wk [facility] Urine Nor Wkly [facility] Specimen (Source) Anatomical Collection Method Collection Time Re ceived Time Location / / Volume Laterality 03/20/2019 03/22/2019 7:47 AM [facility] [employer]LL[employer] Narrative [facility] - 03/22/2019 Unless otherwise specified, test(s) performed at: [facility], [address] [place], [place] [id number] REFERENCE DATA EXPERT: Rika lew M.D. For any questions, please call customer service at FREQUENCY:MONTHLY Resulting Agency Comment Specimen source: Urine López Mariano MD LAB BODY FLUIDS AND STOOLS O RDERABLES Performing Organization Address City/State/ZIP Code Phon e Number [facility] PDF CHEMISTRY (03/20/2019) P athologist Signature Urea Nitrogen, 1,233.5 mg/24 hr [facility] PDF 24 Hr [facility] Urea Nitrogen, 15 mg/dL [facility] PDF Timed [facility] Comment: A reference range for this assay has not been established for body fluids. If blood results are available f or this analyte, results may be interpreted in comparison to those resul ts. Urea Clearance, PD Fluid 3.4 mL/min [facility]PS S PECTRA [facility] Urea Clearance, PDF Norm 2.8 mL/min [facility] Urea Clear, PDF Norm Wkly 34 L/wk [facility] Creatinine, PDF Timed Uncor 0.9 mg/dL AP S SPECTRA [facility] Comment: A reference range for this assay has not been established for body fluids. If blood results are available f or this analyte, results may be interpreted in comparison to those resul ts. Urea Clear, Tot Norm Wkly 124 L/wk [facility] Creatinine, PDF Timed Cor 0.7 mg/dL [facility] Comment: Creatinine values have been corrected fo r glucose interference. [facility] glucose correction factor f or creatinine is 0.0002. Creatinine, PDF 24 Hr 57.6 mg/24 hr [facility]PS SPEC TRA [facility] Creatinine Clear, PDF 1.2 mL/min [facility]PS SPEC TRA [facility] Creatinine Clear, PDF Norm 1.0 mL/min [facility] Creat Clear, PDF Norm Wkly 12 L/wk [facility] Creat Clear, Tot Wkly 223 L/wk [facility]PS SPEC TRA [facility] Glucose, PDF Timed 990 mg/dL [facility] Comment: A reference range for this assay has not been established for body fluids. If blood results are available f or this analyte, results may be interpreted in comparison to those resul ts. Specimen (Source) Anatomical Collection Method Collection Time Re ceived Time Location / / Volume Laterality 03/20/2019 03/22/2019 7:44 AM [facility] [employer] Resulting Agency Comment Specimen source: PD Fluid López Mariano MD LAB BODY FLUIDS AND STOOLS O RDERABLES Performing Organization Address City/State/ZIP Code Phon e Number [facility] PD ADEQUACY (03/20/2019) P athologist Signature Kt/V, 0.80 [facility] Peritoneal [facility] Kt/V, Total 2.92 [facility] Creat Clear, 181 L/wk [facility] Tot Norm Wkly [facility] Creat Clear, 10 L/wk [facility] PDF Norm Wkly [facility] PNA, Normalized 0.67 g/kg/day [facility] PNA 49 g/day [facility] Specimen (Source) Anatomical Collection Method Collection Time Re ceived Time Location / / Volume Laterality 03/20/2019 03/22/2019 7:44 AM [facility] [employer]LL[employer] Narrative [facility] - 03/22/2019 Unless otherwise specified, test(s) performed at: [facility], [address] [place] [address] REFERENCE DATA EXPERT: Rika lew M.D. For any questions, please call customer service at FREQUENCY:MONTHLY Resulting Agency Comment Specimen source: PD Fluid López Mariano MD LAB BODY FLUIDS AND STOOLS O RDERABLES Performing Organization Address City/[facility] Phon e Number [facility] PATIENT INFORMATION (03/20/2019) P athologist Signature Urea Volume 42.4 L [facility] Distribution [facility] ([place]) Specimen (Source) Anatomical Collection Method Collection Time Re ceived Time Location / / Volume Laterality 03/20/2019 03/22/2019 7:44 AM [facility] [employer]LL[employer] Narrative [facility] - 03/22/2019 Unless otherwise specified, test(s) performed at: [facility], [address] [place], [place] [phone] REFERENCE DATA EXPERT: Rika lew M.D. For any questions, please call customer service at FREQUENCY:MONTHLY Resulting Agency Comment Specimen source: PD Fluid López Mariano MD LAB BLOOD ORDERABLES Performing Organization Address City/State/ZIP [facility] Phon e Number [facility] IMMUNO CHEMISTRY (03/20/2019) P athologist Signature Hep B Surface Negative Negative [facility] Ag [facility] Specimen (Source) Anatomical Collection Method Collection Time Re ceived Time Location / / Volume Laterality 03/20/2019 03/21/2019 6:58 PM [employer] [employer] Resulting Agency Comment Specimen source: Serum López Mariano MD LAB BLOOD ORDERABLES Performing Organization Address City/State/ZIP Code Phon e Number [facility] (ABNORMAL) Spectrae Chemistry (03/20/2019) [facility] gist Method Time Signature BUN 25 (H) 6 - 19 [facility] mg/dL [facility] Creatinine 3.42 (H) 0.60 - [facility] 1.30 mg/dL [facility] BUN/Creatinine 7.3 (L) 10.0 - [facility] Ratio 20.0 [facility] Sodium 143 136 - 145 [facility] mEq/L [facility] [...] [facility] Calcium Phosphorus Product 42 0 - 54 [facility] Calcium Phosporus Product, Cor 43 0 - 54 [facility] Albumin 3.9 3.5 - 5.2 g/dL [facility] Iron 59 30 - 160 mcg/dL [facility] [place] [facility] UIBC 212 155 - 355 mcg/dL [facility] K [facility] TIBC 271 185 - 515 mcg/dL [facility] K [facility] Iron Saturation (TSat) 22 20 - 55 % APS SPE CTRA [facility] Ferritin 199 10 - 291 ng/mL [facility] Specimen (Source) Anatomical Collection Method Collection Time Re ceived Time Location / / Volume Laterality 03/20/2019 03/21/2019 6:58 PM [employer] [employer] Narrative [facility] - 03/22/2019 Unless otherwise specified, test(s) performed at: [facility], [address] [place] [id number] REFERENCE DATA EXPERT: Rika lew M.D. For any questions, please call customer service at FREQUENCY:MONTHLY Resulting Agency Comment Specimen source: Serum López Mariano MD LAB BLOOD ORDERABLES Performing Organization Address City/State/ZIP Code Phon e Number [facility] (ABNORMAL) HEMATOLOGY (03/20/2019) Analysis Performed At Patho logist Time Signature WBC 6.95 4.80 - [facility] 10.80 [facility] 1000/mcL RBC 3.74 (L) 4.20 - [facility] 5.40 [facility] mill/mcL Hemoglobin 11.7 (L) 12.0 - [facility] 16.0 g/dL [facility] Hemoglobin x 3 35.1 (L) 36.0 - [facility] 48.0 % [facility] Hematocrit 36.0 (L) 37.0 - [facility] 47.0 % [facility] MCV 96 80 - 100 [facility] fl [facility] MCH 31.4 (H) 27.0 - [facility] 31.0 pg [facility] MCHC 32.6 30.0 - [facility] 36.0 g/dL [facility] RDW 14.0 11.5 - [facility] 14.5 % [facility] Specimen (Source) Anatomical Collection Method Collection Time Re ceived Time Location / / Volume Laterality 03/20/2019 03/21/2019 6:59 PM [employer] [employer]LL[employer] Narrative [facility] - 03/21/2019 Unless otherwise specified, test(s) performed at: [facility], [address] [place], [place] [phone] REFERENCE DATA EXPERT: Rika lwe M.D. For any questions, please call customer service at FREQUENCY:MONTHLY Resulting Agency Comment Specimen source: Blood López Mariano MD LAB BLOOD ORDERABLES Performing Organization Address City/State/ZIP Code Phon e Number [facility] PATIENT INFORMATION (03/20/2019) P athologist Signature Patient BSA 2.12 sq. M. [facility] Comment: Normalized values are calculated using t he patient's actual BSA and normalized to the average BSA of 1.73m2. Specimen (Source) Anatomical Collection Method Collection Time Re ceived Time Location / / Volume Laterality 03/20/2019 03/21/2019 6:58 PM [employer] [employer]LL[employer] Narrative [facility] - 03/21/2019 Unless otherwise specified, test(s) performed at: [facility], [address] [place] [id number] REFERENCE DATA EXPERT: Rika lew M.D. For any questions, please call customer service at FREQUENCY:MONTHLY Resulting Agency Comment Specimen source: PD Fluid López Mariano MD LAB BLOOD ORDERABLES Performing Organization Address City/[facility] Code Phon e Number [facility] PATIENT INFORMATION (03/20/2019) P athologist Signature Patient Weight 100.0 [facility] Patient Height 172.0 [facility] Amputee Status NO [facility] Amputee Parts NONE [facility] Drain volume, 8,223 [facility] PDF [facility] Collection 24.0 [facility] Time, PDF [facility] Urine Volume 1,600 [facility] Collection 24.0 [facility] Interval, Ur [facility] Specimen (Source) Anatomical Location Collection Method / Collectio n Time Received Time / Laterality Volume 03/20/2019 03/20/2019 Narrative [facility] - 03/21/2019 Unless otherwise specified, test(s) performed at: [facility], [address] [place] [id number] REFERENCE DATA EXPERT: Rika lew M.D. For any questions, please call customer service at FREQUENCY:MONTHLY Resulting Agency Comment Specimen source: PD Fluid López Mariano MD LAB BLOOD ORDERABLES Performing Organization Address City/[facility] Phon e Number [facility] documented in this encounter Visit Diagnoses Not on filedocumented in this encounter
--- OUTSIDE RECORDS SUMMARY | 2021-12-28 14:10 | XMS_ITS | Encounter Summary ---
:1965 Author Organization [facility] Address [address] [place] [address] Care Team Providers Name Role Phone Unavailable Primary Care Provider Unavailable Encounter Details Date Type Department Care Team Description 05/08/2019 [facility] Only [facility] O f López Awad MD [phone] [place] [address] [place], [place] [phone] (Wo rk) Social History Tobacco Use Types Packs/Day Years Used Date Smoking Tobacco: Never Assessed Sex Assigned at Date Recorded Not on file documented as of this encounter Plan of Treatment Not on filedocumented as of this encounter Procedures Procedure Name Priority Date/Time Associated Diagnosis Comme nts P.E.T. UREA NITROGEN, PDF Routine 05/08/2019 Re sults for this procedure are i n the results section. P.E.T. UREA NITROGEN, PDF Routine 05/08/2019 Re sults for this procedure are i n the results section. P.E.T. UREA NITROGEN, PDF Routine 05/08/2019 Re sults for this procedure are i n the results section. P.E.T. INTERPRETATION Routine 05/08/2019 Result s for this procedure are i n the results section. P.E.T. INTERPRETATION Routine 05/08/2019 Result s for this procedure are i n the results section. P.E.T. INTERPRETATION Routine 05/08/2019 Result s for this procedure are i n the results section. P.E.T. GLUCOSE, PDF Routine 05/08/2019 Results for this procedure are i n the results section. P.E.T. GLUCOSE, PDF Routine 05/08/2019 Results for this procedure are i n the results section. P.E.T. GLUCOSE, PDF Routine 05/08/2019 Results for this procedure are i n the results section. P.E.T. CREATININE, PDF Routine 05/08/2019 Resul ts for this procedure are i n the results section. P.E.T. CREATININE, PDF Routine 05/08/2019 Resul ts for this procedure are i n the results section. P.E.T. CREATININE, PDF Routine 05/08/2019 Resul ts for this procedure are i n the results section. CHEMISTRY Routine 05/08/2019 Results for thi s procedure are i n the results section. documented in this encounter Results (ABNORMAL) Spectrae Chemistry (05/08/2019) Analysis Performed At Patho logist Time Signature BUN 36 (H) 6 - 19 [facility] mg/dL [facility] Creatinine 3.83 (H) 0.60 - [facility] 1.30 mg/dL [facility] BUN/Creatinine 9.4 (L) 10.0 - [facility] Ratio 20.0 [facility] Glucose 82 70 - 100 [facility] mg/dL [facility] Specimen (Source) Anatomical Collection Method Collection Time Re ceived Time Location / / Volume Laterality 05/08/2019 05/09/2019 3:56 PM MUD CLEANER OPERATOR Narrative [facility]PS [facility] - 05/09/2019 Unless otherwise specified, test(s) performed at: [facility], [address] [place] [address] BREAST WORKER: Rika lew M.D. For any questions, please call customer service at FREQUENCY:MONTHLY Resulting Agency Comment Specimen source: Serum López Mariano MD LAB BLOOD ORDERABLES Performing Organization Address City/State/ZIP Code Phon e Number [facility] P.E.T. GLUCOSE, PDF (05/08/2019) P athologist Signature Glucose, PDF 2 1,065 mg/dL [facility] Hr [facility] Comment: A reference range for this assay has not been established for body fluids. If blood results are available f or this analyte, results may be interpreted in comparison to those resul ts. Specimen (Source) Anatomical Collection Method Collection Time Re ceived Time Location / / Volume Laterality 05/08/2019 05/09/2019 10:4 9 AM MUD CLEANER OPERATOR Resulting Agency Comment Specimen source: PD Fluid López Mariano MD LAB BLOOD ORDERABLES Performing Organization Address City/State/ZIP Code Phon e Number [facility] P.E.T. INTERPRETATION (05/08/2019) P athologist Signature D/D0 Ratio PET 0.52 [facility] 2 Hr [facility] D/P Ratio PET 2 0.42 [facility] Hr [facility] Specimen (Source) Anatomical Collection Method Collection Time Re ceived Time Location / / Volume Laterality 05/08/2019 05/09/2019 10:4 9 AM MUD CLEANER OPERATOR Narrative [facility]PS [facility] - 05/09/2019 Unless otherwise specified, test(s) performed at: [facility], [address] [place] [address] BREAST WORKER: Rika lew M.D. For any questions, please call customer service at FREQUENCY:MONTHLY Resulting Agency Comment Specimen source: PD Fluid López Mariano MD LAB BLOOD ORDERABLES Performing Organization Address City/[facility]/ZIP Code Phon e Number [facility] P.E.T. UREA NITROGEN, PDF (05/08/2019) P athologist Signature Urea Nitrogen, 5 mg/dL [facility] PDF 0 Hr [facility] Comment: A reference range for this assay has not been established for body fluids. If blood results are available f or this analyte, results may be interpreted in comparison to those resul ts. Specimen (Source) Anatomical Collection Method Collection Time Re ceived Time Location / / Volume Laterality 05/08/2019 05/09/2019 10:4 8 AM MUD CLEANER OPERATOR Resulting Agency Comment Specimen source: PD Fluid López Mariano MD LAB BLOOD ORDERABLES Performing Organization Address City/State/ZIP Code Phon e Number [facility] P.E.T. CREATININE, PDF (05/08/2019) P athologist Signature Creatinine, PDF 0.0 mg/dL [facility] 0 Hr Cor [facility] Creatinine, PDF 0.5 mg/dL [facility] 0 Hr Uncor [facility] Comment: A reference range for this assay has not been established for body fluids. If blood results are available f or this analyte, results may be interpreted in comparison to those resul ts. Specimen (Source) Anatomical Collection Method Collection Time Re ceived Time Location / / Volume Laterality 05/08/2019 05/09/2019 10:4 8 AM MUD CLEANER OPERATOR Resulting Agency Comment Specimen source: PD Fluid López Mariano MD LAB BLOOD ORDERABLES Performing Organization Address City/State/ZIP Code Phon e Number [facility] P.E.T. GLUCOSE, PDF (05/08/2019) P athologist Signature Glucose, PDF 0 2,056 mg/dL [facility] Hr [facility] Comment: A reference range for this assay has not been established for body fluids. If blood results are available f or this analyte, results may be interpreted in comparison to those resul ts. Specimen (Source) Anatomical Collection Method Collection Time Re ceived Time Location / / Volume Laterality 05/08/2019 05/09/2019 10:4 8 AM MUD CLEANER OPERATOR Resulting Agency Comment Specimen source: PD Fluid López Mariano MD LAB BLOOD ORDERABLES Performing Organization Address [facility] Code Phon e Number [facility] P.E.T. INTERPRETATION (05/08/2019) P athologist Signature D/D0 Ratio PET 1.00 [facility] 0 Hr [facility] D/P Ratio PET 0 0.00 [facility] Hr [facility] Specimen (Source) Anatomical Collection Method Collection Time Re ceived Time Location / / Volume Laterality 05/08/2019 05/09/2019 10:4 8 AM MUD CLEANER OPERATOR Narrative APS SPECTRA [facility] - 05/09/2019 Unless otherwise specified, test(s) performed at: [facility], [address] [place] [address] BREAST WORKER: Rika lew M.D. For any questions, please call customer service at FREQUENCY:MONTHLY Resulting Agency Comment Specimen source: PD Fluid López Mariano MD LAB BLOOD ORDERABLES Performing Organization Address City/State/ZIP Code Phon e Number [facility] P.E.T. UREA NITROGEN, PDF (05/08/2019) P athologist Signature Urea Nitrogen, 29 mg/dL [facility] PDF 2 Hr [facility] Comment: A reference range for this assay has not been established for body fluids. If blood results are available f or this analyte, results may be interpreted in comparison to those resul ts. Specimen (Source) Anatomical Collection Method Collection Time Re ceived Time Location / / Volume Laterality 05/08/2019 05/09/2019 10:4 9 AM MUD CLEANER OPERATOR Resulting Agency Comment Specimen source: PD Fluid López Mariano MD LAB BLOOD ORDERABLES Performing Organization Address City/State/ZIP Code Phon e Number [facility] P.E.T. CREATININE, PDF (05/08/2019) P athologist Signature Creatinine, PDF 1.8 mg/dL [facility]PS [facility]PECTRA 2 Hr Uncor [facility] Comment: A reference range for this assay has not been established for body fluids. If blood results are available f or this analyte, results may be interpreted in comparison to those resul ts. Creatinine, PDF 2 Hr Cor 1.6 mg/dL APS S PECTRA [facility] Specimen (Source) Anatomical Collection Method Collection Time Re ceived Time Location / / Volume Laterality 05/08/2019 05/09/2019 10:4 9 AM MUD CLEANER OPERATOR Resulting Agency Comment Specimen source: PD Fluid López Mariano MD LAB BLOOD ORDERABLES Performing Organization Address City/[facility] Code Phon e Number [facility] P.E.T. UREA NITROGEN, PDF (05/08/2019) P athologist Signature Urea Nitrogen, 35 mg/dL [facility] PDF 4 Hr [facility] Comment: A reference range for this assay has not been established for body fluids. If blood results are available f or this analyte, results may be interpreted in comparison to those resul ts. Specimen (Source) Anatomical Collection Method Collection Time Re ceived Time Location / / Volume Laterality 05/08/2019 05/09/2019 10:5 0 AM MUD CLEANER OPERATOR Resulting Agency Comment Specimen source: PD Fluid López Mariano MD LAB BLOOD ORDERABLES Performing Organization Address City/[facility]/ZIP Code Phon e Number [facility] P.E.T. CREATININE, PDF (05/08/2019) P athologist Signature Creatinine, PDF 2.3 mg/dL [facility]PECTRA 4 Hr Cor [facility] Creatinine, PDF 2.4 mg/dL APS SPECTRA 4 Hr Uncor [facility] Comment: A reference range for this assay has not been established for body fluids. If blood results are available f or this analyte, results may be interpreted in comparison to those resul ts. Specimen (Source) Anatomical Collection Method Collection Time Re ceived Time Location / / Volume Laterality 05/08/2019 05/09/2019 10:5 0 AM MUD CLEANER OPERATOR Resulting Agency Comment Specimen source: PD Fluid López Mariano MD LAB BLOOD ORDERABLES Performing Organization Address City/State/ZIP Code Phon e Number [facility] P.E.T. GLUCOSE, PDF (05/08/2019) P athologist Signature Glucose, PDF 4 719 mg/dL [facility] Hr [facility] Comment: A reference range for this assay has not been established for body fluids. If blood results are available f or this analyte, results may be interpreted in comparison to those resul ts. Specimen (Source) Anatomical Collection Method Collection Time Re ceived Time Location / / Volume Laterality 05/08/2019 05/09/2019 10:5 0 AM MUD CLEANER OPERATOR Resulting Agency Comment Specimen source: PD Fluid López Mariano MD LAB BLOOD ORDERABLES Performing Organization Address City/[facility]/ZIP Code Phon e Number [facility] P.E.T. INTERPRETATION (05/08/2019) Patholo gist Method Time Signature D/D0 Ratio PET 0.35 APS [facility]RA 4 Hr [facility] Glucose Average High APS [facility]PECT[facility] Transport [facility] Comment: Glucose Transport interpretation based o n 4 Hr D/D0 Ratio for Standard PET, and 4 Hr PDF Glucose for Fast PET. Solute Transport Class Inconclusive [facility]PS [facility]PECTRA [facility] Creatinine Transport Average Low APS SPE CTRA [facility] Comment: Creatinine Transport interpretation base d on 4 Hr D/P Ratio only. Variations both in D/P ratios and interp retations may be due to excessive residual dialysate and/or mary alice ation from test protocol. ??All creatinines have been corrected for gluc ose interference, correction factor = 0.0002. Standard PET - Peritoneal Transport Clas sification* Solute Transport ?? 2 hr D/P ?4 hr D /P ?2 hr D/D0 ?? 4 hr D/D0 ?? Ultra Filtration Creatinine ??Creatinine ??Glucose ? Glucose ? Volume ? High ? 0.63-0.87 ?? 0 .82-1.03 ?? 0.43-0.24 ?? 0.25-0.12 ?? [phone] Average High ? 0.49-0.62 ?? 0.66- 0.81 ?? 0.54-0.44 ?? 0.37-0.26 ?? 6033-6652 Average ?0.48 ?0.65 ?0.55 ?0.38 ?2368 Average Low ?0.34-0.47 ?? 0.50 -0.64 ?? 0.66-0.56 ?? 0.49-0.39 ?? 0983-3078 Low ?0.23-0.33 ?? 0.34-0.49 ?? 0.78-0.67 ?? 0.61-0.50 ?? [phone] *Olinda FERNANDEZ, Geo KD, Hugo R, Justo mcmanus BF, Venu LP, Juan Daniel HL, et al. Peritoneal equilibration test. Perit Dial Bull 1987; 7:138-147. D/P Ratio PET 4 Hr 0.60 APS [facility] Specimen (Source) Anatomical Collection Method Collection Time Re ceived Time Location / / Volume Laterality 05/08/2019 05/09/2019 10:5 0 AM MUD CLEANER OPERATOR Narrative APS [employer] [facility] - 05/09/2019 Unless otherwise specified, test(s) performed at: [facility], [address] [place] [address] BREAST WORKER: Rika lew M.D. For any questions, please call customer service at FREQUENCY:MONTHLY Resulting Agency Comment Specimen source: PD Fluid López Mariano MD LAB BLOOD ORDERABLES Performing Organization Address City/State/ZIP Code Phon e Number [facility]PS [facility]RA [facility] documented in this encounter Visit Diagnoses Not on filedocumented in this encounter
--- OUTSIDE RECORDS SUMMARY | 2021-12-28 14:10 | XMS_ITS | Encounter Summary ---
:1965 Author Organization [facility] Address [address] [place] [address] Care Team Providers Name Role Phone Unavailable Primary Care Provider Unavailable Encounter Details Date Type Department Care Team Description 04/10/2019 Orders Only [facility] O f López Awad MD [phone] [facility] [address] [place], [place] [phone] (Wo rk) Social History Tobacco Use Types Packs/Day Years Used Date Smoking Tobacco: Never Assessed Sex Assigned at Date Recorded Not on file documented as of this encounter Plan of Treatment Not on filedocumented as of this encounter Procedures Procedure Name Priority Date/Time Associated Diagnosis Comme nts HEMATOLOGY Routine 04/10/2019 Results for thi s procedure are in the resu lts section. documented in this encounter Results (ABNORMAL) HEMATOLOGY (04/10/2019) Analysis Performed At Patho logist Time Signature Hemoglobin 11.1 (L) 12.0 - [facility]PS [facility]RA 16.0 g/dL [facility] Hemoglobin x 3 33.3 (L) 36.0 - [facility]PS [facility]RA 48.0 % [facility] Specimen (Source) Anatomical Collection Method Collection Time Re ceived Time Location / / Volume Laterality 04/10/2019 04/11/2019 12:2 8 PM ENGINEERING MANAGER ELECTRONICS Narrative APS SPECTRA [facility] - 04/11/2019 Unless otherwise specified, test(s) performed at: [facility], [address] [place] [id number] DIRECTOR OF COMPLIANCE: Rika lew M.D. For any questions, please call customer service at FREQUENCY:OTHER Resulting Agency Comment Specimen source: Blood López Leither MD LAB BLOOD ORDERABLES Performing Organization Address City/State/ZIP Code Phon e Number [facility] documented in this encounter Visit Diagnoses Not on filedocumented in this encounter
--- OUTSIDE RECORDS SUMMARY | 2021-12-28 14:10 | XMS_ITS | Encounter Summary ---
:1965 Author Organization [facility] Address [address] [place] [address] Care Team Providers Name Role Phone Unavailable Primary Care Provider Unavailable Encounter Details Date Type Department Care Team Description 04/05/2019 Orders Only [facility] O f López Awad MD [phone] [facility] [address] [place], [place] [phone] (Wo rk) Social History Tobacco Use Types Packs/Day Years Used Date Smoking Tobacco: Never Assessed Sex Assigned at Date Recorded Not on file documented as of this encounter Plan of Treatment Not on filedocumented as of this encounter Procedures Procedure Name Priority Date/Time Associated Diagnosis Comme nts HEMATOLOGY Routine 04/05/2019 Results for thi s procedure are in the resu lts section. documented in this encounter Results (ABNORMAL) HEMATOLOGY (04/05/2019) Analysis Performed At Patho logist Time Signature Hemoglobin 11.5 (L) 12.0 - APS [facility]RA 16.0 g/dL [facility] Hemoglobin x 3 34.5 (L) 36.0 - APS [facility]PECTRA 48.0 % [facility] Specimen (Source) Anatomical Collection Method Collection Time Re ceived Time Location / / Volume Laterality 04/05/2019 04/06/2019 5:21 PM TOP DISTRIBUTION EXECUTIVE Narrative APS SPECTRA [facility] - 04/06/2019 Unless otherwise specified, test(s) performed at: [facility], [address] [place] [address] VIDEO EDITOR: Rika lew M.D. For any questions, please call customer service at FREQUENCY:OTHER Resulting Agency Comment Specimen source: Blood López Mariano MD LAB BLOOD ORDERABLES Performing Organization Address City/State/ZIP Code Phon e Number [facility]PS [facility] documented in this encounter Visit Diagnoses Not on filedocumented in this encounter
--- OUTSIDE RECORDS SUMMARY | 2021-12-28 14:10 | XMS_ITS | Encounter Summary ---
:1965 Author Organization [facility] Address [address] [place] [address] Care Team Providers Name Role Phone Unavailable Primary Care Provider Unavailable Encounter Details Date Type Department Care Team Description 02/22/2019 Treatment [facility] L[facility]pez Awad MD [address] [place], [place] [phone] (Wo rk) Social History Tobacco Use Types Packs/Day Years Used Date Smoking Tobacco: Never Assessed Sex Assigned at Date Recorded Not on file documented as of this encounter Progress Notes López Mariano MD - 02/22/2019 12:00 AM CST Date: Feb 22, 2019 Patient Name: Stephanie Norman : 1965 Chart #: [id number] Sex: F Chief Complaint: ADPKD, ESRD Primary Physician: Subjective: Stephanie is a pleasant 53yF with 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 Stephanie was seen during her training for peritoneal dialysis today. I saw her during an exchange doingCCPD (cycler). I participated in her training and provided education and answered questions. She is doing very well and tolerating exchanges nicely and is picking it up quickly. Stephanie has very significant fatigue, main indication for initiating dialysis (uremia). She has had mild edema as well, but this improved with diuretics. She has mild constipation and we are starting Senna today. Problem List Description ICD9 Code ICD10 Code Autosomal dominant polycystic kidney disease Q61.3 End stage renal disease 585.6 N18.6 Dependence on renal dialysis V45.11 Z99.2 Anemia in end stage renal disease D63.1 N18.6 Hyperparathyroidism due to renal insufficiency 588.81 N25.81 Hypertensive disorder 401.9 I10 Past Problem List No past problem list is available. Past Medical History The patient has a history of polycystic kidney disease. She also has a history of essential hypertension. She is status post PD catheter placement. PD catheter placement 01/2019 Family History The patient's family history is negative for kidney disease. Social History The patient is and lives with her spouse. She is employed. She has no impairment. She has nohistory of tobacco use. Review of Systems Comprehensive review of systems was negative other than as noted in HPI. Medication List Medication Sig Start Date aspirin 81 mg tablet,chewable Take 1 tablet by mouth once a day calcitriol 0.25 mcg capsule Take 1 capsule by mouth as directed. 3x week carvedilol 25 mg tablet Take 1 tablet by mouth twice a day. may take before dialysis; take 12 hours apart. Stop metoprolol citalopram 40 mg tablet Take 1 tablet by mouth once a day as directed. Celexa - Take in the evening. felodipine 5 mg tablet extended release 24 hr Take 1 tablet by mouth once a day. Take 2 in the AM and 1 in the PM at bedtime ferrous sulfate 325 mg (65 mg iron) tablet,delayed release (DR/EC) Take 1 tablet by mouth twice a day loratadine 10 mg tablet Take 1 tablet by mouth once a day Nexium (esomeprazole magnesium) 20 mg capsule,delayed release(DR/EC) Take 1 capsule by mouth once a day. for reflux simvastatin 10 mg tablet 1 tablet by mouth at bedtime. take 1 tablet by mouth at bedtime torsemide 20 mg tablet Take 1 tablet by mouth once a day Allergy List Allergen Reaction Reaction Severity Onset Date neomycin Skin rash PENICILLINS Skin rash Physical Exam Vital Signs Vital Signs NOT Documented! Constitutional: Awake, well developed, well nourished. Eyes: Pupils are equal and round. Lids and conjunctivae are normal. ENMT: Oral mucosa is moist and without thrush or pharyngitis. Respiratory: Lungs clear to auscultation bilaterally without wheezes or rhonchi. Normal effort. Cardiovascular: Regular rate and rhythm. No leg edema. Gastrointestinal: NABS, non-tender, PD catheter in place and dressed Musculoskeletal: No Synovitis. Skin: No rash, lesions or excessive dryness. Psychiatric: alert and pleasant Labs: 02/14/2019 labs at [facility]: Creatinine 3.9, potassium 4.9, bicarb 21, Na 140, Alb 4.1, HbS Ag negative. 01/13/19 labs at [facility]: Hgb 11.8 Assessment and Plan: 1. ESRD 2/2 ADPKD - initiated peritoneal dialysis 02/20/2019 2. ADPKD 3. HTN 4. Secondary Renal hyperparathyroidism 5. Anemia in ESRD, with iron deficiency 6. Constipation Plan: 1. I saw her during her peritoneal dialysis training today and participated in her training on the cycler and answered all questions 2. Stop calcitriol and oral iron 3. Start Senna 1-2 times per day 4. Continue coreg and felodipine for blood pressure and torsemide 20mg daily for volume control 5. Starting cycler prescription will be 2L fills for 9hrs with 4 fills, starting 1.5% bags I have performed a complete review of pertinent lab results. Return to Clinic: Daily currently during training López Mariano MD [ Signed And locked electronically On 02/22/2019 at 12:23:55 PM ] Transcribed: López Mariano ( 02/22/2019 ) documented in this encounter Miscellaneous Notes Dialysis Note - López Mariano MD - 02/22/2019 12:07 PM CST Date: Feb 22, 2019 Patient Name: Stephanie Norman : 1965 Chart #: [id number] Sex: F This patient was personally seen for a complete visit as part of routine monthly dialysis care. A review of the dialysis treatment, blood pressure, estimated dry weight, and recent lab values was made.These were discussed with the patient and staff as necessary. HOSE FINISHER: López Mariano MD LOCATION: [phone] SCHEDULE: No Routine Schedule Subjective 02/22/2019: I am seeing patient for first PD visit today. She is tolerating it well. She has done manual bags with minimal drain pain. She is now starting cycler and tolerating well. Her catheter is healing. Review of Systems Fatigue. Exam Respiratory - Clear to auscultation bilaterally. Cardiovascular - Regular rate. Regular rhythm. No murmur heard. Gastrointestinal - Normal bowel sounds, soft, non-tender. Edema - Trace edema. PD catheter exit site - dressing in place and no drainage Medication List No medication list is available. Allergy List No allergy list is available. Medications reviewed with changes as indicated below. Meds reviewed, not yet updated into this system. Changes today include stopping calcitriol, stoppingoral iron, and starting Senna daily. Treatment and Adequacy Assessment Continue current prescription. No adequacy yet done, to be completed soon. Starting prescription will by CCPD with 4 fills of 2L over 9 hours Peritoneal Dialysis Access Assessment Placed on: 01/2019 Surgeon - Dr. Martinez at [facility] Staff and patient report access is working well. NA Anemia Assessment Hemoglobin is at goal. Iron Saturation is at goal. Ferritin is below goal. Hgb is >11, but ferritin is <200 with iron sat 30%. I will give Venofer 200mg IV x2. She has never been on FABIO Nutritional and Metabolic Assessment Albumin is at goal. Encourage high biological value protein intake. Potassium is at goal. Albumin 4.1 and potassium 4.9 at [facility] Bone and Mineral Metabolism Assessment Corrected calcium is at goal. Phosphorus is at goal. Intact PTH is below goal. Stop calcitriol as PTH <150. Not requiring binder currently Cardiovascular Assessment Blood pressure reviewed and is acceptable. Continue same cardiovascular medications. Estimated dry weight is appropriate. EDW set today, will adjust as needed Transplant Status Patient has been referred. [facility] [place] Resuscitation Status Additional Comments: Starting PD this week, training going well, trained on manual exchanges and doing these without difficulty. Now training on cycler, going well and tolerating well. She will start Senna for constipation and to stay regular, stressed importance of this. She will stop oral iron and calcitriol. López Mariano MD [ Signed And locked electronically On 02/22/2019 at 12:13:15 PM ] Transcribed: López Mariano ( 02/22/2019 ) Dialysis Note - López Mariano MD - 02/22/2019 12:02 PM CST Date: Feb 22, 2019 Patient Name: Stephanie Norman : 1965 Chart #: [id number] Sex: F Patient Type: ESRD Modality: Peritoneal Dialysis Primary Cause of Renal Failure: Q61.3 - Autosomal dominant polycystic kidney disease Assembling Motor Builder: López Mariano MD Location: [place] [phone] Schedule: No Routine Schedule Initial Access Date Regular Chronic Dialysis Began: 02/20/2019Initial Modality: Peritoneal Dialysis Initial Access used on first patient dialysis: PD Catheter Current Access Access used for current outpatient dialysis: PD Catheter López Mariano MD [ Signed And locked electronically On 02/22/2019 at 11:02:54 AM ] Transcribed: López Mariano MD ( 02/22/2019 ) documented in this encounter Plan of Treatment Not on filedocumented as of this encounter Visit Diagnoses Not on filedocumented in this encounter
--- OUTSIDE RECORDS SUMMARY | 2021-12-28 14:10 | XMS_ITS ---
:1965 Author Organization [facility] DOCUMENT DISCLAIMER The information in the [facility] Continuity of Care Document represents a summary of certain health and medical information. It may not contain the complete medical history for the patient and should be independently verified. The represented time in the document is Eastern Time. 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 Secondary hyperparathyroidism of renal N25.81 Active February 20, 2019 origin Anemia in chronic kidney disease D63.1 Active February 20, 2019 Acidosis E87.2 Active February 20 Essential (primary) hypertension I10 Active February 20, 2019 Unspecified asthma, uncomplicated J45.909 Active February 20, 2019 Cholecystitis, unspecified K81.9 Active Feb Polycystic kidney, unspecified Q61.3 Active February 19, 2019 End stage renal disease N18.6 Active 2018 ALLERGIES AND ADVERSE REACTIONS Substance Reaction Severity Status Penicillins Skin Rash Active Mircera C/O Being Hot Moderate Active neomycin Skin Rash Active SOCIAL HISTORY Tobacco Use Status Tobacco Type Unknown if ever consumed tobacco - Caregiver Characteristics No Information Available Characteristics of Home environment No Information Available MEDICATIONS Prescribed Medications for Dialysis Treatments Medication Instructions Dosage Route Start Date End Date Statu s Heparin Intermittent 2000 Intravenous - February Active Sodium mid run, Every units push 2020 (Porcine) Treatment, Total 1,000 Units/mL treatment Systemic minutes 180 Heparin Bolus, Every 4000 Intravenous - February Active Sodium Treatment, Total units push 2020 (Porcine) treatment 1,000 Units/mL minutes 180 Systemic Iron Sucrose 1X Week 50 mg Intravenous - November 10November 09, Active (Venofer) push 2021 2022 Vitamin D Every Treatment 0.50 mcg Oral October 27October 10, A ctive (Calcitriol) 2021 2022 Oral Home Medications Medication Instructions Dosage Route Start Date End Date Statu s aspirin 81 mg Take by mouth 1 tablet ORAL February Active once a day 2018 carvedilol 12.5 Take by mouth 1/2 tablet ORAL November 20, Active mg twice a day 2020 citalopram 40 Take by mouth 1 tablet ORAL February Active mg once a day as 2018 directed gentamicin 0.1% Apply to skin TOPICAL September 26, Active once a day as 2019 needed Lipitor 40 mg Take by mouth 1 tablet ORAL March Active every evening 2019 loratadine 10 Take by mouth 1 tablet ORAL February Active mg once a day 2018 Nexium 20 mg Take by mouth 1 capsule ORAL February Active once a day 2018 pramipexole Take by mouth at 1 tablet ORAL February 12, Active 0.25 mg bedtime 2020 Saida-Millie 0.8 Take by mouth 1 tablet ORAL April 21, Active mg once a day 2019 Renvela 800 mg Take by mouth 3 tablet ORAL January 23, Active three times a day 2019 with meals torsemide 20 mg Take by mouth 2 tablet ORAL June 20, Active once a day 2019 trazodone 50 mg Take by mouth at 1 tablet ORAL April 24, Active bedtime as needed 2020 VITAL SIGNS Post-Treatment Vital Signs Vital Sign Value Date / Time Blood Pressure-sitting 105/57 mmHg December 26 11:27 AM Blood Pressure-standing 115/25 mmHg December 26 11:27 AM Heart Rate 72 beats per minute December 26, 2021 1:27 AM Respiratory Rate 16 breaths per minute December 26, 2021 11:27 AM Temperature 98.0 deg. F December 26, 2021 1:27 AM Weight Vital Sign Value Date / Time Estimated Dry Weight 91 kg September 12, 2021 11:59 PM Pre-Dialysis 95.30 kg December 26, 2021 1 1:27 AM Post-Dialysis 91.90 kg December 26, 2021 1 1:27 AM Other Other Value Date / Time Height 170 cm April 24, 2020 12: 00 AM [facility] LAB RESULTS Hematology Result Type Result Value Relevant Interpretation Date Reference Range Hemoglobin x 3 37.2 % Male: 14.0 - 18.0 - November 172021 g/dL; Female: 12.0-16.0 g/dL HGB 12.4 g/dL Males: 14.0 - - December 03 18.0 g/dL Females: 12.0 - 16.0 g/dL Hemoglobin x 3 36.6 % Male: 14.0 - 18.0 - November 182021 g/dL; Female: 12.0-16.0 g/dL HGB 12.2 g/dL Males: 14.0 - - December 10 18.0 g/dL Females: 12.0 - 16.0 g/dL HGB 12.8 g/dL Males: 14.0 - - December 17 18.0 g/dL Females: 12.0 - 16.0 g/dL Hemoglobin x 3 38.4 % Male: 14.0 - 18.0 - November 192021 g/dL; Female: 12.0-16.0 g/dL Platelets 203 1000/mcL 079-218 2875/mcL - December RDW 14.0 % No Reference - December 24, range provided 2021 MCHC 32.1 g/dL 30 - 36 g/dL - December 24, 2021 Lymphocytes 14.2 % 19.0-48.0% Low December 24, 2021 Neutrophils 76.9 % 40.0-75.0% High December 24, 2021 Eosinophil 2.2 % 0.0-7.0% - December 24, 2021 Monocytes 4.9 % 3.0-10.0% - December 24, 2021 JESSICA 1.0 % 0.0-4.0% - December 24, 2021 Basophils 0.8 % 0.0-1.5% - December 24, 2021 HCT 38.9 % Males: 42 - 52% - December 24 , Females: 37 - 47% 2021 MCH 34.7 pg 27 - 31 pg/cell High December Iron 82 mcg/dL Females: 30-160 - December 24 , mcg/dL Males: 2021 45-160 mcg/dL UIBC (Calc) 156 mcg/dL 155-355 mcg/dL - December 24, 2021 TIBC 238 mcg/dL 185-515 mcg/dL - December 24, 2021 Transferrin Sat. 34 % 20-55% - December, (Calc) 2021 RBC 3.59 mill/mcL Males: 4.70 - Low December 24, 6.10 mill/mcL 2021 Females: 4.20 - 5.40 mill/mcL WBC (No Diff) 7.44 1000/mcL 4.8-10.8 - December 24, thous/mcL 2021 Hemoglobin x 3 37.5 % Male: 14.0 - 18.0 - , g/dL; Female: 2021 12.0-16.0 g/dL HGB 12.5 g/dL Males: 14.0 - - December 24, 18.0 g/dL 2021 Females: 12.0 - 16.0 g/dL Metabolic/Renal Result Type Result Value Relevant Reference Interpretation Date Range BUN 45 mg/dL 6-19 mg/dl High December 24 Creatinine, Serum 9.03 mg/dL 0.6-1.3 mg/dL High December 24, 2021 BUN/Creat Ratio 5.0 10-20 Low December Sodium 137 mEq/L 136-145 mEq/L - December 24, 2021 Potassium 4.9 mEq/L 3.5-5.1 mEq/L - December 24, 2021 Chloride 100 mEq/L 96-108 mEq/L - December 24 Bicarbonate 25 mEq/L 22-29 mEq/L - December 24 BUN, Post 11 mg/dL 6-19 mg/dL - December 24 URR, Calc 76 % 65 - 80% - December 24 HD Adequacy Result Type Result Value Relevant Reference Interpretation Date Range eKt/V 1.37 No Reference range Normal December 24, 2021 ([place]) provided spKt/V ([place] 1.59 No Reference range Normal Dec II) provided Bone/Mineral Result Type Result Value Relevant Reference Interpretation Date Range PTH-Intact, Plasma 287 pg/mL 16 to 80 pg/mL High December 10, 2021 Calcium, Total 9.5 mg/dL 8.4-10.2 mg/dL - December Phosphorus 3.5 mg/dL 2.6-4.5 mg/dL - December 24, 2021 Ca x P Product 33 < 55 - December 24, 2021 Corrected Ca x P 32 < 55 - December Product Liver/Nutrition Result Type Result Value Relevant Reference Interpretation Date Range Total Protein 7.1 g/dL 6.0-8.5 g/dL - December 24, 2021 Albumin (BCG) 4.4 g/dL 3.5-5.2 g/dL - December 24, 2021 Globulin (Calc) 2.7 g/dL 1.0 - 2.0 - December A/G Ratio 1.6 1.0-2.0 - December 24 022 Infectious Diseases Result Type Result Value Relevant Reference Interpretation Date Range Hep B Surface Ag Negative Negative - October 22 (HBsAg) Hep B Surface Ab 122 mIU/mL < 10 mIU/mL, Non- - October (anti-HBs) Immune Hep B core Ab Total Negative Negative - October 22, 2021 (anti-HBc) DIALYSIS PRESCRIPTION Conventional Hemodialysis Data Element Value Order Date/Time September 12, 2021 Frequency 3X Week Treatment Days MonWedFri Dialyzer 180NRe Optiflux Treatment Time (Total Minutes) 210 min Blood Flow Rate (mL/min) 400 mL/min Dialysate Flow Rate Manual 800 Estimated Dry Weight 91 kg Dialysate Concentrate 2.0 K, 2.5 Ca, 1.0 Mg, 100 D extrose (G2251) Sodium (mEq/L) 137 meq/L Bicarb Machine Setting (mEq/L) 31 meq/L Dialysis Access Hemodialysis-AV Fistula-Alfonso roque, Left Upper Arm, Brachial Artery to Cephalic Vein Access Placed on April Arterial Needle Size 15g1 Venous Needle Size 15g1 IMMUNIZATIONS Vaccine Date Dose Route Status Moderna COVID-February 28, 2021 0.25 mL Intramuscular C ompleted Vaccine, Booster Fluarix, quadrivalent, January 31, 2021 0.5 mL Intramuscul ar Completed preservative free PREVNAR 13 August 21, 2020 0.5 mL Intramuscular Completed Moderna COVID-19 June 10, 2020 0.5 mL Intramuscular Completed Vaccine, Dose 2 of 2 Moderna COVID-19 May 17, 2020 0.5 mL Intramuscular Co mpleted Vaccine, Dose 1 of 2 [id number], series August 23, 2019 40.0 mcg Intramuscular Completed 4 of 4 [id number]-[id number], series April 25, 2019 40.0 mcg Intramuscu lar Completed 3 of 4 [id number], series March 25, 2019 40.0 mcg Intramusc ular Completed 2 of 4 [id number], series February 22, 2019 40.0 mcg Intramusc ular Completed 1 of 4 TRANSPLANT WAITLIST STATUS No Information on Transplant Waitlist Status ADVANCE DIRECTIVES Directive Description Ordered By Effective Date Resuscitation status Full Code López Mariano Mar 18 DIALYSIS TREATMENTS Conventional Hemodialysis Date Pre-Treatment Post-Treatment Duration BFR Dialysate Dialyzer Dialysis Meds Vitals Vitals (hr) (mL/min) Access Admin Arlet Weight 96.70 Weight 93.90 03:31:00 450 2.0 K, 180nre Hemod ialysis-AV Fistula-Standard, Left Upper Arm, Brachial Artery to Cephalic Vein Heparin Sodium (Porcine) 1,000 Units/mL Systemic; 4000units,Intravenous - push 2021 kg kg 2.5 Ca, Optiflux Access Plac ed on April 25, 2019 Heparin Sodium (Porcine) 1,000 Units/mL Systemic; 2000units,Intravenous - push 1.0 Mg, Iron Sucrose (Venofer); 50mg,Intravenous - push 100 Vitamin D (Darin citriol) Oral; 0.50mcg,Oral Dextrose (G2251) Blood Pressure-sitting 114/58 mmHg Blood Pressure-sitting 11 1/53 mmHg Blood Pressure-standing 113/60 mmHg Blood Pressure-standing 104/48 mmHg Heart Rate 78 beats per Heart Rate 66 beats per minute minute Respiratory Rate 15 breaths per Respiratory Rate 16 breaths per minute minute Temperature 97.6 deg. F Temperature 97.0 deg. F December Weight 95.80 Weight 93.90 03:30:00 400 2.0 K, 180nre Hemod ialysis-AV Fistula-Standard, Left Upper Arm, Brachial Artery to Cephalic Vein Heparin Sodium (Porcine) 1,000 Units/mL Systemic; 2000units,Intravenous - push 2021 kg kg 2.5 Ca, Optiflux Access Plac ed on April 25, 2019 Heparin Sodium (Porcine) 1,000 Units/mL Systemic; 4000units,Intravenous - push 1.0 Mg, Vitamin D (C alcitriol) Oral; 0.50mcg,Oral 100 Dextrose (G2251) Blood Pressure-sitting 124/63 mmHg Blood Pressure-sitting 10 7/51 mmHg Blood Pressure-standing 126/78 mmHg Blood Pressure-standing 133/61 mmHg Heart Rate 81 beats per Heart Rate 65 beats per minute minute Respiratory Rate 16 breaths per Respiratory Rate 16 breaths per minute minute Temperature 95.6 deg. F Temperature 97.0 deg. F December Weight 95.30 Weight 91.90 03:28:00 450 2.0 K, 180nre Hemod ialysis-AV Fistula-Standard, Left Upper Arm, Brachial Artery to Cephalic Vein Heparin Sodium (Porcine) 1,000 Units/mL Systemic; 1999units,Intravenous - push 2021 kg kg 2.5 Ca, Optiflux Access Plac ed on April 25, 2019 Heparin Sodium (Porcine) 1,000 Units/mL Systemic; 4000units,Intravenous - push 1.0 Mg, Vitamin D (C alcitriol) Oral; 0.50mcg,Oral 100 Dextrose (G2251) Blood Pressure-sitting 135/67 mmHg Blood Pressure-sitting 10 5/57 mmHg Blood Pressure-standing 117/57 mmHg Blood Pressure-standing 115/25 mmHg Heart Rate 81 beats per Heart Rate 72 beats per minute minute Respiratory Rate 16 breaths per Respiratory Rate 16 breaths per minute minute Temperature 94.5 deg. F Temperature 98.0 deg. F
--- OUTSIDE RECORDS SUMMARY | 2021-12-28 14:10 | XMS_ITS | Encounter Summary ---
:1965 Author Organization [facility] Address [address] [place] [address] Care Team Providers Name Role Phone Unavailable Primary Care Provider Unavailable Encounter Details Date Type Department Care Team Description 02/20/2019 Orders Only [facility] López Awad MD [address] [place] [address] [place], [place] [phone] (Wo rk) Social History Tobacco Use Types Packs/Day Years Used Date Smoking Tobacco: Never Assessed Sex Assigned at Date Recorded Not on file documented as of this encounter Plan of Treatment Not on filedocumented as of this encounter Procedures Procedure Name Priority Date/Time Associated Diagnosis Comme nts SPECIAL CHEMISTRY Routine 02/20/2019 Results fo r this procedure are in the resu lts section. IMMUNO CHEMISTRY Routine 02/20/2019 Results for this procedure are in the resu lts section. TRACE ELEMENTS Routine 02/20/2019 Results for t his procedure are in the resu lts section. HEMATOLOGY Routine 02/20/2019 Results for thi s procedure are in the resu lts section. CHEMISTRY Routine 02/20/2019 Results for thi s procedure are in the resu lts section. CHEMISTRY Routine 02/20/2019 Results for thi s procedure are in the resu lts section. documented in this encounter Results IMMUNO CHEMISTRY (02/20/2019) P athologist Signature Hep B Surface Negative Negative [facility] Ag [facility] Hepatitis B <10 mIU/mL [facility] Surface Ab [facility] Comment: Reference Range: <10 mIU/mL ? Non-Immune >=10 mIU/mL ?Immune The magnitude of the measured result abo ve 10 mIU/mL is not indicative of the total amount of antibody present. Custom Exception Hep B Core Total Ab Negative Negative [facility]R A [facility] Comment: Hep B Core Ab, Total appears during the acute infection stage and remains reactive/positive throughout the recovery stage. Specimen (Source) Anatomical Collection Method Collection Time Re ceived Time Location / / Volume Laterality 02/20/2019 02/21/2019 2:28 PM [facility] Resulting Agency Comment Specimen source: Serum López Mariano MD LAB BLOOD ORDERABLES Performing Organization Address City/[facility] Code Phon e Number APS SPECTRA [facility] (ABNORMAL) Spectrae Chemistry (02/20/2019) P athologist Signature PTH 137 (H) 16 - 80 [facility] pg/mL [facility] Specimen (Source) Anatomical Collection Method Collection Time Re ceived Time Location / / Volume Laterality 02/20/2019 02/21/2019 4:14 PM LAMP SHADE [facility] Narrative APS SPECTRA [facility] - 02/21/2019 Unless otherwise specified, test(s) performed at: [facility], [address] [place] [address] PHILOSOPHY PROFESSOR: Rika lew M.D. For any questions, please call customer service at FREQUENCY:MONTHLY Resulting Agency Comment Specimen source: Plasma López Mariano MD LAB BLOOD ORDERABLES Performing Organization Address City/[facility] Code Phon e Number APS SPECTRA [facility] (ABNORMAL) SPECIAL CHEMISTRY (02/20/2019) P athologist Signature Vitamin D, 25.6 (L) 30.0 - [facility] 25-OH, Total 100.0 [facility] ng/mL Comment: Vitamin D Status Classification: Deficiency ? <10.0 ng/mL Insufficiency ?10.0-30.0 ng/mL Sufficiency ?30.0-100.0 ng/mL Toxicity ? >100.0 ng/mL Vitamin B-12 494 211 - 911 pg/mL [facility] Specimen (Source) Anatomical Collection Method Collection Time Re ceived Time Location / / Volume Laterality 02/20/2019 02/21/2019 2:28 PM [facility]AMP [facility]ADE [facility] Resulting Agency Comment Specimen source: Serum López Mariano MD LAB BLOOD BANK TEST ORDERABL ES Performing Organization Address City/State/ZIP Code Phon e Number APS SPECTRA [facility] TRACE ELEMENTS (02/20/2019) P athologist Signature Aluminum 6 0 - 10 [facility] mcg/L [facility] Comment: This test was developed and its performa nce characteristics determined by [facility]. It has not been cleared or approved by the FDA. The laboratory is regulated under CLIA a s qualified to perform high complexity testing. This test is used fo r clinical purposes. It should not be regarded as investigational or fo r research. Specimen (Source) Anatomical Collection Method Collection Time Re ceived Time Location / / Volume Laterality 02/20/2019 02/21/2019 2:04 PM LAMP SHADE SEWER Narrative APS SPECTRA [facility] - 02/21/2019 Unless otherwise specified, test(s) performed at: [facility], [address] [place] [address] PHILOSOPHY PROFESSOR: Rika lew M.D. For any questions, please call customer service at FREQUENCY:MONTHLY Resulting Agency Comment Specimen source: Serum López Mariano MD LAB BLOOD ORDERABLES Performing Organization Address City/State/ZIP Code Phon e Number APS SPECTRA [facility] (ABNORMAL) HEMATOLOGY (02/20/2019) Analysis Performed At Patho logist Time Signature WBC 6.19 4.80 - [facility] 10.80 [facility] 1000/mcL RBC 3.73 (L) 4.20 - [facility] 5.40 [facility] mill/mcL Hemoglobin 11.7 (L) 12.0 - [facility] 16.0 g/dL [facility] Hemoglobin x 3 35.1 (L) 36.0 - [facility] 48.0 % [facility] Hematocrit 35.9 (L) 37.0 - [facility] 47.0 % [facility] MCV 96 80 - 100 [facility] fl [facility] MCH 31.4 (H) 27.0 - [facility] 31.0 pg [facility] MCHC 32.6 30.0 - [facility] 36.0 g/dL [facility] RDW 13.8 11.5 - [facility] 14.5 % [facility] Specimen (Source) Anatomical Collection Method Collection Time Re ceived Time Location / / Volume Laterality 02/20/2019 02/21/2019 4:14 PM LAMP SHADE SEWER Narrative APS SPECTRA [facility] - 02/21/2019 Unless otherwise specified, test(s) performed at: [facility], [address] [place] [id number] PHILOSOPHY PROFESSOR: Rika lew M.D. For any questions, please call customer service at FREQUENCY:MONTHLY Resulting Agency Comment Specimen source: Blood López Mariano MD LAB BLOOD ORDERABLES Performing Organization Address City/State/ZIP Code Phon e Number APS SPECTRA [facility] (ABNORMAL) Spectrae Chemistry (02/20/2019) [facility] gist Method Time Signature BUN 36 (H) 6 - 19 [facility] mg/dL [facility] Creatinine 3.61 (H) 0.60 - [facility] 1.30 mg/dL [facility] BUN/Creatinine 10.0 10.0 - [facility] Ratio 20.0 [facility] Sodium 140 136 - 145 [facility] mEq/L [facility] Potassium 4.1 3.5 - 5.1 [facility] mEq/L [facility] Chloride 103 96 - 108 [facility] mEq/L [facility] Bicarbonate 23 22 - 29 [facility] (CO2) mEq/L [facility] Calcium 9.8 8.4 - 10.2 [facility] mg/dL [facility] Corrected 9.2 8.4 - 10.2 [facility] Calcium mg/dL [facility] Comment: Corrected Calcium is not equivalent to m easured Ionized Calcium. Phosphorus 4.7 (H) 2.6 - 4.5 mg/dL [facility]PS SPECTRA [facility] Calcium Phosphorus Product 46 0 - 54 [facility]PS S[facility]RA [facility] Calcium Phosporus Product, Cor 43 0 - 54 [facility]RA [facility] Alkaline Phosphatase 45 35 - 104 U/L APS SP ECTRA [facility] Albumin 4.8 3.5 - 5.2 g/dL [facility] Magnesium 2.1 1.6 - 2.6 mg/dL [facility] Iron 94 30 - 160 mcg/dL [facility] UIBC 220 155 - 355 mcg/dL [facility]PS [facility] TIBC 314 185 - 515 mcg/dL APS SPECTRA [facility] Iron Saturation (TSat) 30 20 - 55 % APS SPE CTRA [facility] Ferritin 199 10 - 291 ng/mL APS [facility] [place] Specimen (Source) Anatomical Collection Method Collection Time Re ceived Time Location / / Volume Laterality 02/20/2019 02/21/2019 2:28 PM LAMP SHADE SEWER Narrative APS SPECTRA [facility] - 02/22/2019 Unless otherwise specified, test(s) performed at: [facility], [address] [place] [id number] PHILOSOPHY PROFESSOR: Rika lew M.D. For any questions, please call customer service at FREQUENCY:MONTHLY Resulting Agency Comment Specimen source: Serum López Mariano MD LAB BLOOD ORDERABLES Performing Organization Address City/State/ZIP Code Phon e Number APS SPECTRA [facility] documented in this encounter Visit Diagnoses Not on filedocumented in this encounter
--- OUTSIDE RECORDS SUMMARY | 2021-12-28 14:10 | XMS_ITS | Encounter Summary ---
:1965 Author Organization [facility] Address [facility] [place] [address] Care Team Providers Name Role Phone Unavailable Primary Care Provider Unavailable Encounter Details Date Type Department Care Team Description 02/27/2019 Office Communication [facility] [place] [place] MD [address] [place] [phone] Social History Tobacco Use Types Packs/Day Years Used Date Smoking Tobacco: Never Assessed Sex Assigned at Date Recorded Not on file documented as of this encounter Plan of Treatment Not on filedocumented as of this encounter Visit Diagnoses Not on filedocumented in this encounter
--- OUTSIDE RECORDS SUMMARY | 2021-12-28 14:10 | XMS_ITS | Encounter Summary ---
:1965 Author Organization [facility] Address [address] [place] [address] Care Team Providers Name Role Phone Unavailable Primary Care Provider Unavailable Encounter Details Date Type Department Care Team Description 04/26/2019 Treatment [facility] López Awad MD [address] [place], [place] [phone] (Wo rk) Social History Tobacco Use Types Packs/Day Years Used Date Smoking Tobacco: Never Assessed Sex Assigned at Date Recorded Not on file documented as of this encounter Miscellaneous Notes Dialysis Note - López Mariano MD - 04/26/2019 11:50 AM CST Date: Apr 26, 2019 Patient Name: Stephanie Norman : 1965 Chart #: [id number] Sex: F Patient Type: ESRD Modality: Peritoneal Dialysis Primary Cause of Renal Failure: Q61.3 - Autosomal dominant polycystic kidney disease Equity Manager: López Mariano MD Location: [phone] Schedule: No Routine Schedule Initial Access Date Regular Chronic Dialysis Began: 02/20/2019Initial Modality: Peritoneal Dialysis Initial Access used on first patient dialysis: PD Catheter Current Access Access used for current outpatient dialysis: PD Catheter López Mariano MD [ Signed And locked electronically On 04/26/2019 at 10:50:46 AM ] Transcribed: López Mariano MD ( 04/26/2019 ) Dialysis Note - López Mariano MD - 04/26/2019 10:51 AM CST Date: Apr 26, 2019 Patient Name: Stephanie Norman : 1965 Chart #: [id number] Sex: F This patient was personally seen for a complete visit as part of routine monthly dialysis care. A review of the dialysis treatment, blood pressure, estimated dry weight, and recent lab values was made.These were discussed with the patient and staff as necessary. PRACTICAL NURSING TEACHER: López Mariano MD LOCATION: [phone] SCHEDULE: No Routine Schedule Subjective 04/26: She went to hemodialysis after having [...] is healing. Review of Systems None reported. Exam Respiratory - Clear to auscultation bilaterally. Cardiovascular - Regular rate. Regular rhythm. No murmur heard. Gastrointestinal - Normal bowel sounds, soft, non-tender. Edema - No leg edema. PD catheter exit site - dressing in place, exit site looks great, no bulge Medication List Medication Sig Start Date aspirin [...] 1 tablet by mouth once a day simvastatin 10 mg tablet 1 tablet by mouth at bedtime. take 1 tablet by mouth at bedtime torsemide 20 mg tablet Take 1 tablet by mouth once a day Allergy List Allergen Reaction Reaction Severity Onset Date neomycin Skin rash PENICILLINS Skin rash Medications reviewed and no changes were made. Treatment and Adequacy Assessment BUN mg/dL 32 (04/21/19) 25 (03/20/19) 36 (02/20/19) CREATININE (MG/DL) IN SER/PLAS mg/dL 4.21 (04/21/19) 3.42 (03/20/19) 3.61 (02/20/19) KT/V, PERITONEAL L/wk 0.80 (04/21/19) 0.80 (03/20/19) KT/V, RESIDUAL L/wk 2.04 (04/21/19) 2.12 (03/20/19) Kt/V is adequate. Adequacy excellent, 2.0 residual and 0.8 PD Prescription currently 1.5% and 2.5% bags, CCPD, 4 cycles at night, 1.5L fills, no last fill Peritoneal Dialysis Access Assessment Placed on: 01/2019 [...] Anemia Assessment HEMOGLOBIN (G/DL) IN BLOOD g/dL 11.3 (04/21/19) 11.1 (04/10/19) 11.5 (04/05/19) WBC (BLOOD) 1000/mcL 6.53 (04/21/19) 6.95 (03/20/19) 6.19 (02/20/19) IRON SATURATION % 21 (04/21/19) 22 (03/20/19) 30 (02/20/19) FERRITIN ng/mL 168 (04/21/19) 199 (03/20/19) 199 (02/20/19) Hemoglobin is at goal. Iron Saturation is at goal. Ferritin is at goal. Hgb is >11, iron improved although borderline. Will monitor for now. Nutritional and Metabolic Assessment ALBUMIN (G/DL) g/dL 4.2 (04/21/19) 3.9 (03/20/19) 4.8 (02/20/19) Bicarbonate mEq/L 23 (04/21/19) 28 (03/20/19) 23 (02/20/19) POTASSIUM (MMOL/L) IN SER/PLAS mEq/L 4.4 (04/21/19) 3.6 (03/20/19) 4.1 (02/20/19) Sodium mEq/L 143 (04/21/19) 143 (03/20/19) 140 (02/20/19) 25 OH VITAMIN D ng/mL 19.9 (04/21/19) 25.6 (02/20/19) Albumin is at goal. Encourage high biological value protein intake. Potassium is at goal. Bone and Mineral Metabolism Assessment Calcium mg/dL 9.2 (04/21/19) 9.2 (03/20/19) 9.8 (02/20/19) CALCIUM (MG/DL) CORRECTED FOR ALBUMIN IN SER/PLAS mg/dL 9.0 (04/21/19) 9.3 (03/20/19) 9.2 (02/20/19) CALCIUM PHOSPHORUS PRODUCT, COR 58 (04/21/19) 43 (03/20/19) 43 (02/20/19) PHOSPHATE (MG/DL) IN SER/PLAS mg/dL 6.4 (04/21/19) 4.6 (03/20/19) 4.7 (02/20/19) IPTH pg/mL 270 (04/21/19) 137 (02/20/19) Corrected calcium is at goal. Phosphorus is above goal. Intact PTH is below goal. Start Sevelamer with meals Cardiovascular Assessment Blood pressure reviewed and is acceptable. Continue same cardiovascular medications. Estimated dry weight is appropriate. Transplant Status Patient has been referred. Center - [facility] Resuscitation Status Additional Comments: She is doing well on PD, tolerating cycler well. Prescription low as much residual function currently and feels great (much better than prior to starting PD). PCAD is out after required short term hemo due to PD fluid leak. I did reduce fill volume, still adequate. PET being done today. She is going back to work next week, happy about this. Has back-up AVF as well now. López Mariano MD [ Signed And locked electronically On 04/26/2019 at 10:56:28 AM ] Transcribed: López Mariano ( 04/26/2019 ) documented in this encounter Plan of Treatment Not on filedocumented as of this encounter Visit Diagnoses Not on filedocumented in this encounter
--- OUTSIDE RECORDS SUMMARY | 2021-12-28 14:10 | XMS_ITS | Encounter Summary ---
:1965 Author Organization [facility] Address [address] [place] [address] Care Team Providers Name Role Phone Unavailable Primary Care Provider Unavailable Encounter Details Date Type Department Care Team Description 08/07/2019 Orders Only [facility] López Awad MD [address] [place] [address] [place], [place] [phone] (Wo rk) Social History Tobacco Use Types Packs/Day Years Used Date Smoking Tobacco: Never Assessed Sex Assigned at Date Recorded Not on file documented as of this encounter Plan of Treatment Not on filedocumented as of this encounter Procedures Procedure Name Priority Date/Time Associated Diagnosis Comme nts URINE CLEARANCE Routine 08/07/2019 Results for this procedure are i n the results section . PDF CHEMISTRY Routine 08/07/2019 Results for th is procedure are i n the results section . PD ADEQUACY Routine 08/07/2019 Results for thi s procedure are i n the results section . PD ADEQUACY Routine 08/07/2019 Results for thi s procedure are i n the results section . PATIENT INFORMATION Routine 08/07/2019 Results for this procedure are i n the results section . PATIENT INFORMATION Routine 08/07/2019 Results for this procedure are i n the results section . PATIENT INFORMATION Routine 08/07/2019 Results for this procedure are i n the results section . CHEMISTRY Routine 08/07/2019 Results for thi s procedure are i n the results section . documented in this encounter Results (ABNORMAL) URINE CLEARANCE (08/07/2019) Analysis Performed At Patho logist Time Signature Urea Nitrogen, 390 mg/dL APS [facility]RA Urine Timed [facility] Urea Nitrogen, 4.3 (L) 12.0 - [facility]PS [facility]RA Urine 24 Hr 20.0 g/24 [facility] hr Urea Clear, 6.7 (L) 64.0 - [facility] Urine Norm 99.0 [facility] mL/min Urea Clearance, 8.3 (L) 64.0 - [facility] Urine 99.0 [facility] mL/min Urea Clear, 83 L/wk [facility] Urine Norm Wkly [facility] Creatinine, 82.3 mg/dL [facility] Urine Timed [facility] Creatinine, 24H 0.9 0.5 - 1.6 [facility] Ur g/24 hr [facility] Creatinine 16.6 mL/min [facility] Clear, Urine [facility] Creat Clear, 13.4 (L) 77.0 - [facility] Urine Norm 94.0 [facility] mL/min Creat Clear, 167.3 L/wk [facility] Urine Wkly [facility] Specimen (Source) Anatomical Collection Method Collection Time Re ceived Time Location / / Volume Laterality 08/07/2019 08/08/2019 2:19 PM CDT Resulting Agency Comment Specimen source: Urine López Mariano MD LAB URINE ORDERABLES Performing Organization Address City/[facility] Code Phon e Number [facility] PD ADEQUACY (08/07/2019) P athologist Signature Kt/V, Residual 1.95 [facility] Creat Clear, 135 L/wk [facility] Urine Nor Wkly [facility] Specimen (Source) Anatomical Collection Method Collection Time Re ceived Time Location / / Volume Laterality 08/07/2019 08/08/2019 2:19 PM CDT Narrative APS SPECTRA [facility] - 08/08/2019 Unless otherwise specified, test(s) performed at: [facility], [address] [place] [id number] TRANSIT MIX OPERATOR: Yoseph Rose M.D. For any questions, please call customer service at FREQUENCY:MONTHLY Resulting Agency Comment Specimen source: Urine López Mariano MD LAB BODY FLUIDS AND STOOLS O RDERABLES Performing Organization Address City/State/ZIP Code Phon e Number APS SPECTRA [facility] PDF CHEMISTRY (08/07/2019) P athologist Signature Urea Nitrogen, 1,694.0 mg/24 hr [facility] PDF 24 Hr [facility] Urea Nitrogen, 25 mg/dL [facility] PDF Timed [facility] Comment: A reference range for this assay has not been established for body fluids. If blood results are available f or this analyte, results may be interpreted in comparison to those resul ts. Urea Clearance, PD Fluid 3.3 mL/min APS S PECTRA [facility] Urea Clearance, PDF Norm 2.6 mL/min APS S PECTRA [facility] Urea Clear, Tot Norm Wkly 116 L/wk APS SPECTRA [facility] Urea Clear, PDF Norm Wkly 33 L/wk APS SPECTRA [facility] Creatinine, PDF Timed Uncor 1.5 mg/dL AP S SPECTRA [facility] Comment: A reference range for this assay has not been established for body fluids. If blood results are available f or this analyte, results may be interpreted in comparison to those resul ts. Creatinine, PDF Timed Cor 1.2 mg/dL [facility]PS [facility] Comment: Creatinine values have been corrected fo r glucose interference. [facility] glucose correction factor f or creatinine is 0.0002. Creatinine, PDF 24 Hr 81.3 mg/24 hr APS SPEC TRA [facility] Creatinine Clear, PDF 1.5 mL/min APS SPEC TRA [facility] Creatinine Clear, PDF Norm 1.2 mL/min APS SPECTRA [facility] Creat Clear, PDF Norm Wkly 15 L/wk APS SPECTRA [facility] Creat Clear, Tot Wkly 182 L/wk APS SPEC TRA [facility] Glucose, PDF Timed 1,337 mg/dL APS SPECTRA [facility] Comment: A reference range for this assay has not been established for body fluids. If blood results are available f or this analyte, results may be interpreted in comparison to those resul ts. Specimen (Source) Anatomical Collection Method Collection Time Re ceived Time Location / / Volume Laterality 08/07/2019 08/08/2019 2:19 PM CDT Resulting Agency Comment Specimen source: PD Fluid López Mariano MD LAB BODY FLUIDS AND STOOLS O RDERABLES Performing Organization Address City/State/ZIP Code Phon e Number APS SPECTRA [facility] PD ADEQUACY (08/07/2019) P athologist Signature Kt/V, Total 2.72 [facility]PS [facility]RA [facility] Comment: KDOQI Guidelines recommend weekly Kt/V o f >=1.7 for adults. Kt/V, Peritoneal 0.77 APS SPECTRA K [facility] Creat Clear, Tot Norm Wkly 147 L/wk APS SPECTRA [facility] Creat Clear, PDF Norm Wkly 12 L/wk APS SPECTRA [facility] PNA, Normalized 0.82 g/kg/day APS SPECTRA [place] [facility] PNA 60 g/day APS SPECTRA [facility] Specimen (Source) Anatomical Collection Method Collection Time Re ceived Time Location / / Volume Laterality 08/07/2019 08/08/2019 2:19 PM CDT Narrative APS SPECTRA [facility] - 08/08/2019 Unless otherwise specified, test(s) performed at: [facility], [address] [place], [place] [id number] TRANSIT MIX OPERATOR: Yoseph Rose M.D. For any questions, please call customer service at FREQUENCY:MONTHLY Resulting Agency Comment Specimen source: PD Fluid López Mariano MD LAB BODY FLUIDS AND STOOLS O RDERABLES Performing Organization Address City/[facility] Phon e Number APS SPECTRA [facility] (ABNORMAL) Spectrae Chemistry (08/07/2019) Analysis Performed At Patho logist Time Signature BUN 36 (H) 6 - 19 APS SPECTRA mg/dL [facility] Creatinine 3.79 (H) 0.60 - APS SPECTRA 1.30 mg/dL [facility] BUN/Creatinine 9.5 (L) 10.0 - APS SPECTRA Ratio 20.0 [facility] Phosphorus 4.8 (H) 2.6 - 4.5 APS [facility]PECTRA mg/dL [facility] Specimen (Source) Anatomical Collection Method Collection Time Re ceived Time Location / / Volume Laterality 08/07/2019 08/08/2019 2:15 PM CDT Narrative APS SPECTRA [facility] - 08/08/2019 Unless otherwise specified, test(s) performed at: [facility], [address] [place] [id number] TRANSIT MIX OPERATOR: Yoseph Rose M.D. For any questions, please call customer service at FREQUENCY:MONTHLY Resulting Agency Comment Specimen source: Serum López Mariano MD LAB BLOOD ORDERABLES Performing Organization Address [facility] Phon e Number APS SPECTRA [facility] PATIENT INFORMATION (08/07/2019) P athologist Signature Urea Volume 42.6 L APS SPECTRA Distribution [facility] (Shania) Specimen (Source) Anatomical Collection Method Collection Time Re ceived Time Location / / Volume Laterality 08/07/2019 08/08/2019 2:19 PM CDT Narrative APS SPECTRA [facility] - 08/08/2019 Unless otherwise specified, test(s) performed at: [facility], [address] [place] [id number] TRANSIT MIX OPERATOR: Yoseph Rose M.D. For any questions, please call customer service at FREQUENCY:MONTHLY Resulting Agency Comment Specimen source: PD Fluid López Mariano MD LAB BLOOD ORDERABLES Performing Organization Address City/[facility] Phon e Number APS SPECTRA [facility] PATIENT INFORMATION (08/07/2019) athologist Signature Patient BSA 2.14 sq. M. APS SPECTRA [facility] Comment: Normalized values are calculated using t he patient's actual BSA and normalized to the average BSA of 1.73m2. Specimen (Source) Anatomical Collection Method Collection Time Re ceived Time Location / / Volume Laterality 08/07/2019 08/08/2019 2:15 PM CDT Narrative APS SPECTRA [facility] - 08/08/2019 Unless otherwise specified, test(s) performed at: [facility], [address] [place] [id number] TRANSIT MIX OPERATOR: Yoseph Rose M.D. For any questions, please call customer service at FREQUENCY:MONTHLY Resulting Agency Comment Specimen source: PD Fluid López Mariano MD LAB BLOOD ORDERABLES Performing Organization Address [facility] Phon e Number APS SPECTRA [facility] PATIENT INFORMATION (08/07/2019) P athologist Signature Patient Weight 101.5 APS SPECTRA [facility] Patient Height 172.0 APS SPECTRA [facility] Amputee Status NO APS SPECTRA [facility] Amputee Parts NONE APS SPECTRA [facility] Drain volume, 6,776 APS [facility]PECT[facility] PDF [facility] Collection 24.0 APS [facility]PECTRA Time, PDF [facility] Urine Volume 1,100 APS SPECTRA [facility] Collection 24.0 APS SPECTRA Interval, Ur [facility] Specimen (Source) Anatomical Location Collection Method / Collectio n Time Received Time / Laterality Volume 08/07/2019 08/07/2019 Narrative APS SPECTRA [facility] - 08/08/2019 Unless otherwise specified, test(s) performed at: [facility], [address] [place] [id number] TRANSIT MIX OPERATOR: Yoseph Rose M.D. For any questions, please call customer service at FREQUENCY:MONTHLY Resulting Agency Comment Specimen source: PD Fluid López Mariano MD LAB BLOOD ORDERABLES Performing Organization Address City/State/ZIP Code Phon e Number APS Invenshure [facility] documented in this encounter Visit Diagnoses Not on filedocumented in this encounter
--- OUTSIDE RECORDS SUMMARY | 2021-12-28 14:10 | XMS_ITS | Encounter Summary ---
:1965 Author Organization [facility] Address [address] [place] [address] Care Team Providers Name Role Phone Unavailable Primary Care Provider Unavailable Encounter Details Date Type Department Care Team Description 04/03/2019 Treatment [facility] Javi Ramos MD [address] [place], [place] [phone] [place], [place] [phone] (Wo rk) Social History Tobacco Use Types Packs/Day Years Used Date Smoking Tobacco: Never Assessed Sex Assigned at Date Recorded Not on file documented as of this encounter Miscellaneous Notes Dialysis Note - Javi Ingram MD - 04/03/2019 10:33 AM CST Date: Apr 03, 2019 Patient Name: Stephanie Norman : 1965 Chart #: [id number] Sex: F Patient Type: ESRD Modality: Hemodialysis Primary Cause of Renal Failure: Q61.3 - Autosomal dominant polycystic kidney disease Dolly Pusher: López Mariano MD Location: [phone] Schedule: -W- 2nd Shift Initial Access Date Regular Chronic Dialysis Began: 02/20/2019Initial Modality: Peritoneal Dialysis Initial Access used on first patient dialysis: PD Catheter Current Access Access used for current outpatient dialysis: PD Catheter Javi Ingram MD [ Signed And locked electronically On 04/03/2019 at 09:33:50 AM ] Transcribed: Javi Ingram MD ( 04/03/2019 ) documented in this encounter Plan of Treatment Not on filedocumented as of this encounter Visit Diagnoses Not on filedocumented in this encounter
--- OUTSIDE RECORDS SUMMARY | 2021-12-28 14:10 | XMS_ITS | Encounter Summary ---
:1965 Author Organization [facility] Address [address] [place] [address] Care Team Providers Name Role Phone Unavailable Primary Care Provider Unavailable Encounter Details Date Type Department Care Team Description 03/22/2019 Treatment [facility] López Awad MD [address] [place], [place] [phone] (Wo rk) Social History Tobacco Use Types Packs/Day Years Used Date Smoking Tobacco: Never Assessed Sex Assigned at Date Recorded Not on file documented as of this encounter Miscellaneous Notes Dialysis Note - López Mariano MD - 03/22/2019 9:41 AM CST Date: Mar 22, 2019 Patient Name: Stephanie Norman : 1965 Chart #: [id number] Sex: F This patient was personally seen for a complete visit as part of routine monthly dialysis care. A review of the dialysis treatment, blood pressure, estimated dry weight, and recent lab values was made.These were discussed with the patient and staff as necessary. COMPUTING SYSTEMS MECHANIC: López Mariano MD LOCATION: [phone] SCHEDULE: No Routine Schedule Subjective 03/22: Stephanie is doing really well. She [...] - dressing in place, exit site looks great per queen's counsel List Medication Sig Start Date aspirin 81 mg tablet,chewable Take 1 tablet by mouth once a day carvedilol 25 mg tablet Take 1 tablet [...] and 1 in the PM at bedtime loratadine 10 mg tablet Take 1 tablet [...] made. Treatment and Adequacy Assessment BUN mg/dL 25 (03/20/19) CREATININE (MG/DL) IN SER/PLAS mg/dL 3.42 (03/20/19) Continue current prescription. Adequacy in process from 03/20/2019 Prescription currently 1.5% and 2.5% bags, CCPD, 4 cycles at night, 2L fills, no last fill Peritoneal Dialysis Access Assessment Placed on: 01/2019 Surgeon - Dr. [place] at [facility] [place] Staff and patient report access is working well. NA x-ray 03/20/2019 with catheter in good position and nl bowel gas pattern Anemia Assessment HEMOGLOBIN (G/DL) IN BLOOD g/dL 11.7 (03/20/19) WBC (BLOOD) 1000/mcL 6.95 (03/20/19) IRON SATURATION % 22 (03/20/19) FERRITIN ng/mL 199 (03/20/19) Hemoglobin is at goal. Iron Saturation is at goal. Ferritin is at goal. Hgb is >11, iron improved although borderline. Will monitor for now. Nutritional and Metabolic Assessment ALBUMIN (G/DL) g/dL 3.9 (03/20/19) Bicarbonate mEq/L 28 (03/20/19) POTASSIUM (MMOL/L) IN SER/PLAS mEq/L 3.6 (03/20/19) Sodium mEq/L 143 (03/20/19) Albumin is below goal. Encourage high biological value protein intake. Potassium is at goal. Bone and Mineral Metabolism Assessment Calcium mg/dL 9.2 (03/20/19) CALCIUM (MG/DL) CORRECTED FOR ALBUMIN IN SER/PLAS mg/dL 9.3 (03/20/19) CALCIUM PHOSPHORUS PRODUCT, COR 43 (03/20/19) PHOSPHATE (MG/DL) IN SER/PLAS mg/dL 4.6 (03/20/19) Corrected calcium is at goal. Phosphorus is at goal. Intact PTH is below goal. Stopped calcitriol as PTH <150. Will monitor. Cardiovascular Assessment Blood pressure reviewed and is acceptable. Continue same cardiovascular medications. Estimated dry weight is too low, will increase. Increase EDW by 2 lbs today. She is having some negative drains, now using mixed 1.5% and 2.5% bags Transplant Status Patient has been referred. [facility] Resuscitation Status Additional Comments: She is doing well on PD, tolerating cycler well but with drain pain on drain zero and drain one. Shewill bypass drain zero and will try raising machine above her level and if this doesn't work we will use tidal. She feels better, energy level much better. She is going to use protein bars to maintain normal protein levels. Adequacy is pending and PET is scheduled for next week. López Mariano MD [ Signed And locked electronically On 03/22/2019 at 09:47:56 AM ] Transcribed: López Mariano ( 03/22/2019 ) documented in this encounter Plan of Treatment Not on filedocumented as of this encounter Visit Diagnoses Not on filedocumented in this encounter
--- OUTSIDE RECORDS SUMMARY | 2021-12-28 14:10 | XMS_ITS | Encounter Summary ---
:1965 Author Organization [facility] Address [address] [place] [address] Care Team Providers Name Role Phone Unavailable Primary Care Provider Unavailable Encounter Details Date Type Department Care Team Description 07/26/2019 Treatment [facility] López Awad MD [address] [place], [place] [phone] (Wo rk) Social History Tobacco Use Types Packs/Day Years Used Date Smoking Tobacco: Never Assessed Sex Assigned at Date Recorded Not on file documented as of this encounter Miscellaneous Notes Dialysis Note - López Mariano MD - 07/26/2019 9:51 AM CDT Date: Jul 26, 2019 Patient Name: Stephanie Norman : 1965 Chart #: [id number] Sex: F This patient was personally seen for a complete visit as part of routine monthly dialysis care. A review of the dialysis treatment, blood pressure, estimated dry weight, and recent lab values was made.These were discussed with the patient and staff as necessary. PILOT PLANT OPERATOR: López Mariano MD LOCATION: [phone] SCHEDULE: No Routine Schedule Subjective 07/25: Visit done via TeleHealth with video [...] on room air Cardiovascular - Regular rate. per RN Gastrointestinal - not distended Edema - 1+ leg edema. in both legs, with pitting PD catheter exit site - exit site clean per RN RN reports clear lungs, excellent appearing PD catheter site Medication List Medication Sig Start Date aspirin [...] made. Treatment and Adequacy Assessment BUN mg/dL 33 (06/19/19) 34 (05/22/19) 36 (05/08/19) CREATININE (MG/DL) IN SER/PLAS mg/dL 3.95 (06/19/19) 3.53 (05/22/19) 3.83 (05/08/19) KT/V, PERITONEAL L/wk 0.80 (04/21/19) 0.80 (03/20/19) KT/V, RESIDUAL L/wk 2.04 (04/21/19) 2.12 (03/20/19) Kt/V is adequate. Continue current prescription. Adequacy excellent, 2.0 residual and 0.8 PD. Adequacy due and she will do this month again. Prescription currently 1.5% and 2.5% bags, CCPD, 4 cycles at night, 1.5L fills, no last fill Peritoneal Dialysis Access Assessment Placed on: 01/2019 Surgeon - Dr. Martinez at [facility] [place] Staff and patient report access is working [...] Assessment HEMOGLOBIN (G/DL) IN BLOOD g/dL 11.0 (06/19/19) 12.2 (05/22/19) 11.3 (04/21/19) WBC (BLOOD) 1000/mcL 5.63 (06/19/19) 5.50 (05/22/19) 6.53 (04/21/19) IRON SATURATION % 24 (06/19/19) 18 (05/22/19) 21 (04/21/19) FERRITIN ng/mL 168 (04/21/19) 199 (03/20/19) 199 (02/20/19) Hemoglobin is at goal. Iron Saturation is at goal. Ferritin is at goal. Repeat Hgb and iron studies Nutritional and Metabolic Assessment ALBUMIN (G/DL) g/dL 4.0 (06/19/19) 4.1 (05/22/19) 4.2 (04/21/19) Bicarbonate mEq/L 27 (06/19/19) 27 (05/22/19) 23 (04/21/19) POTASSIUM (MMOL/L) IN SER/PLAS mEq/L 4.2 (06/19/19) 4.3 (05/22/19) 4.4 (04/21/19) Sodium mEq/L 140 (06/19/19) 141 (05/22/19) 143 (04/21/19) 25 OH VITAMIN D ng/mL 19.9 (04/21/19) 25.6 (02/20/19) Albumin is at goal. Encourage high biological value protein intake. Potassium is at goal. Bone and Mineral Metabolism Assessment Calcium mg/dL 9.0 (06/19/19) 9.2 (05/22/19) 9.2 (04/21/19) CALCIUM (MG/DL) CORRECTED FOR ALBUMIN IN SER/PLAS mg/dL 9.0 (06/19/19) 9.1 (05/22/19) 9.0 (04/21/19) CALCIUM PHOSPHORUS PRODUCT, COR 48 (06/19/19) 46 (05/22/19) 58 (04/21/19) PHOSPHATE (MG/DL) IN SER/PLAS mg/dL 5.3 (06/19/19) 5.1 (05/22/19) 6.4 (04/21/19) IPTH pg/mL 270 (04/21/19) 137 (02/20/19) Corrected calcium is at goal. Phosphorus is at goal. Intact PTH is at goal. Cardiovascular Assessment Blood pressure reviewed and is acceptable. Continue same cardiovascular medications. Estimated dry weight is appropriate. Adjust dextrose in PD fluid to She needs to improve salt and fluid restriction, discussed in detail today, RD also to discuss with her. Also, she needs to use 4.25% bags earlier to avoid wt rise and worsening edema. Discussed with her to use red bag as 3Lbag (she uses 5L and 3L bag, only 1L of the 3L bag is used given prescription of 6L total). She will use red bag if weight is >103 Kg (EDW 101.5 Kg) and until she gets down below this. This, together with fluid and salt restriction, shouldallow us to get to and maintain her at her EDW Transplant Status Patient has been referred. [facility] Likely to be listed soon, need angiogram which is now complete Resuscitation Status Additional Comments: As above, use red bags as needed and earlier Fluid and salt restriction discussed Adequacy to be done this month Monthly being done today López Mariano MD [ Signed And locked electronically On 07/26/2019 at 10:00:02 AM ] Transcribed: López Mariano ( 07/26/2019 ) documented in this encounter Plan of Treatment Not on filedocumented as of this encounter Visit Diagnoses Not on filedocumented in this encounter
--- OUTSIDE RECORDS SUMMARY | 2021-12-28 14:10 | XMS_ITS | Encounter Summary ---
:1965 Author Organization [facility] Address [address] [place] [address] Care Team Providers Name Role Phone Unavailable Primary Care Provider Unavailable Encounter Details Date Type Department Care Team Description 05/24/2019 Treatment [facility] López Awad MD [address] [place], [place] [phone] (Wo rk) Social History Tobacco Use Types Packs/Day Years Used Date Smoking Tobacco: Never Assessed Sex Assigned at Date Recorded Not on file documented as of this encounter Miscellaneous Notes Dialysis Note - López Mariano MD - 05/24/2019 11:00 AM CST Date: May 24, 2019 Patient Name: Stephanie Norman : 1965 Chart #: [id number] Sex: F This patient was personally seen for a complete visit as part of routine monthly dialysis care. A review of the dialysis treatment, blood pressure, estimated dry weight, and recent lab values was made.These were discussed with the patient and staff as necessary. CHURN DRILL OPERATOR: López Mariano MD LOCATION: [phone] SCHEDULE: No Routine Schedule Subjective 05/24: Stephanie is doing great! She feels [...] site - dressing in place, exit site clean per spray gun repairer helper List Medication Sig Start Date aspirin 81 [...] Treatment and Adequacy Assessment BUN mg/dL 34 (05/22/19) 36 (05/08/19) 38 (04/26/19) CREATININE (MG/DL) IN SER/PLAS mg/dL 3.53 (05/22/19) 3.83 (05/08/19) 4.21 (04/21/19) KT/V, PERITONEAL L/wk 0.80 (04/21/19) 0.80 (03/20/19) KT/V, RESIDUAL L/wk 2.04 (04/21/19) 2.12 (03/20/19) Kt/V is adequate. Adequacy excellent, 2.0 residual and 0.8 PD Prescription currently 1.5% and 2.5% bags, CCPD, 4 cycles at night, 1.5L fills, no last fill Peritoneal Dialysis Access Assessment Placed on: 01/2019 Surgeon - Dr. Martinez at [facility] [place] Staff and patient [...] Assessment HEMOGLOBIN (G/DL) IN BLOOD g/dL 12.2 (05/22/19) 11.3 (04/21/19) 11.1 (04/10/19) WBC (BLOOD) 1000/mcL 5.50 (05/22/19) 6.53 (04/21/19) 6.95 (03/20/19) IRON SATURATION % 18 (05/22/19) 21 (04/21/19) 22 (03/20/19) FERRITIN ng/mL 168 (04/21/19) 199 (03/20/19) 199 (02/20/19) Hemoglobin is at goal. Iron Saturation is below goal. Ferritin is at goal. Nutritional and Metabolic Assessment ALBUMIN (G/DL) g/dL 4.1 (05/22/19) 4.2 (04/21/19) 3.9 (03/20/19) Bicarbonate mEq/L 27 (05/22/19) 23 (04/21/19) 28 (03/20/19) POTASSIUM (MMOL/L) IN SER/PLAS mEq/L 4.3 (05/22/19) 4.4 (04/21/19) 3.6 (03/20/19) Sodium mEq/L 141 (05/22/19) 143 (04/21/19) 143 (03/20/19) 25 OH VITAMIN D ng/mL 19.9 (04/21/19) 25.6 (02/20/19) Albumin is at goal. Encourage high biological value protein intake. Potassium is at goal. Bone and Mineral Metabolism Assessment Calcium mg/dL 9.2 (05/22/19) 9.2 (04/21/19) 9.2 (03/20/19) CALCIUM (MG/DL) CORRECTED FOR ALBUMIN IN SER/PLAS mg/dL 9.1 (05/22/19) 9.0 (04/21/19) 9.3 (03/20/19) CALCIUM PHOSPHORUS PRODUCT, COR 46 (05/22/19) 58 (04/21/19) 43 (03/20/19) PHOSPHATE (MG/DL) IN SER/PLAS mg/dL 5.1 (05/22/19) 6.4 (04/21/19) 4.6 (03/20/19) IPTH pg/mL 270 (04/21/19) 137 (02/20/19) Corrected calcium is at goal. Phosphorus is at goal. Intact PTH is at goal. Cardiovascular Assessment Blood pressure reviewed and is acceptable. Continue same cardiovascular medications. Estimated dry weight is appropriate. Transplant Status Patient has been referred. [facility] [place] Needs angiogram, then will likely be listed pending result Resuscitation Status Additional Comments: She is doing well on PD, tolerating cycler well. Prescription low as much residual function currently and feels great (much better than prior to starting PD). I did reduce fill volume after leak happened into abdominal wall and this has not recurred and still adequate. She has back-up AVF that is now maturing. Hoping to get listed for Tx next month if angiogram looks ok. López Mariano MD [ Signed And locked electronically On 05/24/2019 at 11:04:13 AM ] Transcribed: López Mariano ( 05/24/2019 ) documented in this encounter Plan of Treatment Not on filedocumented as of this encounter Visit Diagnoses Not on filedocumented in this encounter
--- OUTSIDE RECORDS SUMMARY | 2021-12-28 14:10 | XMS_ITS | Encounter Summary ---
:1965 Author Organization [facility] Address [facility] [address] [place] [address] Care Team Providers Name Role Phone Unavailable Primary Care Provider Unavailable Encounter Details Date Type Department Care Team Description 04/06/2019 Documentation Only [facility] López Awad, [address] [place] [address] [place], [place] [phone] (Wo rk) Social History Tobacco Use Types Packs/Day Years Used Date Smoking Tobacco: Never Assessed Sex Assigned at Date Recorded Not on file documented as of this encounter Plan of Treatment Not on filedocumented as of this encounter Visit Diagnoses Not on filedocumented in this encounter
--- OUTSIDE RECORDS SUMMARY | 2021-12-28 14:10 | XMS_ITS | Encounter Summary ---
:1965 Author Organization [facility] Address [address] [place] [address] Care Team Providers Name Role Phone Unavailable Primary Care Provider Unavailable Encounter Details Date Type Department Care Team Description 04/21/2019 Orders Only [facility] López Awad MD [address] [place] [address] [place], [place] [phone] (Wo rk) Social History Tobacco Use Types Packs/Day Years Used Date Smoking Tobacco: Never Assessed Sex Assigned at Date Recorded Not on file documented as of this encounter Plan of Treatment Not on filedocumented as of this encounter Procedures Procedure Name Priority Date/Time Associated Diagnosis Comme nts SPECIAL CHEMISTRY Routine 04/21/2019 Results fo r this procedure are i n the results section . URINE CLEARANCE Routine 04/21/2019 Results for this procedure are i n the results section . PDF CHEMISTRY Routine 04/21/2019 Results for th is procedure are i n the results section . PD ADEQUACY Routine 04/21/2019 Results for thi s procedure are i n the results section . PD ADEQUACY Routine 04/21/2019 Results for thi s procedure are i n the results section . PATIENT INFORMATION Routine 04/21/2019 Results for this procedure are i n the results section . PATIENT INFORMATION Routine 04/21/2019 Results for this procedure are i n the results section . PATIENT INFORMATION Routine 04/21/2019 Results for this procedure are i n the results section . TRACE ELEMENTS Routine 04/21/2019 Results for t his procedure are i n the results section . HEMATOLOGY Routine 04/21/2019 Results for thi s procedure are i n the results section . CHEMISTRY Routine 04/21/2019 Results for thi s procedure are i n the results section . CHEMISTRY Routine 04/21/2019 Results for thi s procedure are i n the results section . documented in this encounter Results TRACE ELEMENTS (04/21/2019) P athologist Signature Aluminum <5 0 - 10 APS SPECTRA mcg/L [facility] Comment: This test was developed and its performa nce characteristics determined by [facility]. It has not been cleared or approved by the FDA. The laboratory is regulated under CLIA a s qualified to perform high complexity testing. This test is used fo r clinical purposes. It should not be regarded as investigational or fo r research. Specimen (Source) Anatomical Collection Method Collection Time Re ceived Time Location / / Volume Laterality 04/21/2019 04/22/2019 4:43 PM DIE STAMPER Narrative APS SPECTRA [facility] - 04/23/2019 Unless otherwise specified, test(s) performed at: [facility], [address] [place] [address] JAVA LEAD DEVELOPER: Rika lew M.D. For any questions, please call customer service at FREQUENCY:MONTHLY Resulting Agency Comment Specimen source: Serum López Mariano MD LAB BLOOD ORDERABLES Performing Organization Address City/State/ZIP Code Phon e Number APS SPECTRA [facility] (ABNORMAL) SPECIAL CHEMISTRY (04/21/2019) P athologist Signature Vitamin D, 19.9 (L) 30.0 - [facility] 25-OH, Total 100.0 [facility] ng/mL Comment: Vitamin D Status Classification: Deficiency ? <10.0 ng/mL Insufficiency ?10.0-30.0 ng/mL Sufficiency ?30.0-100.0 ng/mL Toxicity ? >100.0 ng/mL Vitamin B-12 456 211 - 911 pg/mL APS SPECTRA [facility] Specimen (Source) Anatomical Collection Method Collection Time Re ceived Time Location / / Volume Laterality 04/21/2019 04/22/2019 3:29 PM DIE STAMPER Resulting Agency Comment Specimen source: Serum López Mariano MD LAB BLOOD BANK TEST ORDERABL ES Performing Organization Address City/State/ZIP Code Phon e Number APS SPECTRA [facility] (ABNORMAL) Spectrae Chemistry (04/21/2019) athologist Signature PTH 270 (H) 16 - 80 APS SPECTRA pg/mL [facility] Specimen (Source) Anatomical Collection Method Collection Time Re ceived Time Location / / Volume Laterality 04/21/2019 04/22/2019 2:09 PM DIE STAMPER Narrative APS SPECTRA [facility] - 04/22/2019 Unless otherwise specified, test(s) performed at: [facility], [address] [place] [address] JAVA LEAD DEVELOPER: Rika lew M.D. For any questions, please call customer service at FREQUENCY:MONTHLY Resulting Agency Comment Specimen source: Plasma López Mariano MD LAB BLOOD ORDERABLES Performing Organization Address City/State/ZIP Code Phon e Number APS SPECTRA [facility] (ABNORMAL) URINE CLEARANCE (04/21/2019) Analysis Performed At Patho logist Time Signature Urea Nitrogen, 347 mg/dL APS SPECTRA Urine Timed [facility] Urea Nitrogen, 4.0 (L) 12.0 - APS SPECTRA Urine 24 Hr 20.0 g/24 [facility] hr Urea Clear, 7.0 (L) 64.0 - APS SPECTRA Urine Norm 99.0 [facility] mL/min Urea Clearance, 8.7 (L) 64.0 - APS SPECTRA Urine 99.0 [facility] mL/min Urea Clear, 87 L/wk APS SPECTRA Urine Norm Wkly [facility] Creatinine, 90.6 mg/dL APS SPECTRA Urine Timed [facility] Creatinine, 24H 1.0 0.5 - 1.6 APS SPECTRA Ur g/24 hr [facility] Creatinine 17.2 mL/min APS SPECTRA Clear, Urine [facility] Creat Clear, 13.9 (L) 77.0 - APS SPECTRA Urine Norm 94.0 [facility] mL/min Creat Clear, 173.4 L/wk APS SPECTRA Urine Wkly [facility] Specimen (Source) Anatomical Collection Method Collection Time Re ceived Time Location / / Volume Laterality 04/21/2019 04/22/2019 1:22 PM DIE STAMPER Resulting Agency Comment Specimen source: Urine López Mariano MD LAB URINE ORDERABLES Performing Organization Address City/State/ZIP Code Phon e Number APS SPECTRA [facility] PD ADEQUACY (04/21/2019) P athologist Signature Kt/V, Residual 2.04 APS SPECTRA [facility] Creat Clear, 140 L/wk APS SPECTRA Urine Nor Wkly [facility] Specimen (Source) Anatomical Collection Method Collection Time Re ceived Time Location / / Volume Laterality 04/21/2019 04/22/2019 1:22 PM DIE STAMPER Narrative APS SPECTRA [facility] - 04/22/2019 Unless otherwise specified, test(s) performed at: [facility], [address] [place], [place] [id number] JAVA LEAD DEVELOPER: Rika lew M.D. For any questions, please call customer service at FREQUENCY:MONTHLY Resulting Agency Comment Specimen source: Urine López Mariano MD LAB BODY FLUIDS AND STOOLS O NAY Performing Organization Address City/[facility] Phon e Number APS SPECTRA [facility] PD ADEQUACY (04/21/2019) athologist Signature Kt/V, Total 2.84 APS SPECTRA [facility] Kt/V, 0.80 APS SPECTRA Peritoneal [facility] Creat Clear, 150 L/wk APS SPECTRA Tot Norm Wkly [facility] Creat Clear, 10 L/wk APS SPECTRA PDF Norm Wkly [facility] PNA, Normalized 0.78 g/kg/day APS SPECTRA [facility] PNA 57 g/day APS SPECTRA [facility] Specimen (Source) Anatomical Collection Method Collection Time Re ceived Time Location / / Volume Laterality 04/21/2019 04/22/2019 12:5 4 PM DIE STAMPER Narrative APS SPECTRA [facility] - 04/22/2019 Unless otherwise specified, test(s) performed at: [facility], [address] [place] [address] JAVA LEAD DEVELOPER: Rika lew M.D. For any questions, please call customer service at FREQUENCY:MONTHLY Resulting Agency Comment Specimen source: PD Fluid López Mariano MD LAB BODY FLUIDS AND STOOLS O RDRONALDO Performing Organization Address City/State/[facility] Phon e Number APS SPECTRA [facility] (ABNORMAL) Spectrae Chemistry (04/21/2019) [facility] gist Method Time Signature BUN 32 (H) 6 - 19 APS SPECTRA mg/dL [facility] Creatinine 4.21 (H) 0.60 - APS SPECTRA 1.30 mg/dL [...] APS SPECTRA [facility] Calcium Phosphorus Product 59 (H) 0 - 54 APS SPECTRA [facility] Calcium Phosporus Product, Cor 58 (H) 0 - 54 APS SPECTRA [facility] Alkaline Phosphatase 51 35 - 104 U/L APS SP ECTRA [facility] Albumin 4.2 3.5 - 5.2 g/dL APS SPECTRA [facility] Magnesium 2.1 1.6 - 2.6 mg/dL [facility] Iron 60 30 - 160 mcg/dL [facility] UIBC 230 155 - 355 mcg/dL APS SPECTRA K [facility] TIBC 290 185 - 515 mcg/dL APS SPECTRA [facility] Iron Saturation (TSat) 21 20 - 55 % APS SPE CTRA [facility] Ferritin 168 10 - 291 ng/mL APS SPECTRA [facility] Specimen (Source) Anatomical Collection Method Collection Time Re ceived Time Location / / Volume Laterality 04/21/2019 04/22/2019 3:29 PM DIE STAMPER Narrative APS SPECTRA [facility] - 04/23/2019 Unless otherwise specified, test(s) performed at: [facility], [address] [place] [address] JAVA LEAD DEVELOPER: Rika lew M.D. For any questions, please call customer service at FREQUENCY:MONTHLY Resulting Agency Comment Specimen source: Serum López Mariano MD LAB BLOOD ORDERABLES Performing Organization Address City/State/ZIP Code Phon e Number APS SPECTRA [facility] PATIENT INFORMATION (04/21/2019) P athologist Signature Patient BSA 2.14 sq. M. APS SPECTRA [facility] Comment: Normalized values are calculated using t he patient's actual BSA and normalized to the average BSA of 1.73m2. Specimen (Source) Anatomical Collection Method Collection Time Re ceived Time Location / / Volume Laterality 04/21/2019 04/22/2019 3:29 PM DIE STAMPER Narrative APS SPECTRA [facility] - 04/22/2019 Unless otherwise specified, test(s) performed at: [facility], [address] [place] [address] JAVA LEAD DEVELOPER: Rika lew M.D. For any questions, please call customer service at FREQUENCY:MONTHLY Resulting Agency Comment Specimen source: PD Fluid López Mariano MD LAB BLOOD ORDERABLES Performing Organization Address City/State/ZIP Code Phon e Number APS SPECTRA [facility] PDF CHEMISTRY (04/21/2019) P athologist Signature Urea Nitrogen, 1,546.8 mg/24 hr APS SPECTRA PDF 24 Hr [facility] Urea Nitrogen, 23 mg/dL APS SPECTRA PDF Timed [facility] Comment: A reference range for this assay has not been established for body fluids. If blood results are available f or this analyte, results may be interpreted in comparison to those resul ts. Creatinine, PDF Timed Uncor 1.4 mg/dL AP S SPECTRA [facility] Comment: A reference range for this assay has not been established for body fluids. If blood results are available f or this analyte, results may be interpreted in comparison to those resul ts. Creatinine, PDF Timed Cor 1.1 mg/dL APS SPECTRA [facility] Comment: Creatinine values have been corrected fo r glucose interference. [facility] glucose correction factor f or creatinine is 0.0002. Creatinine, PDF 24 Hr 74.0 mg/24 hr APS SPEC TRA [facility] Glucose, PDF Timed 1,303 mg/dL APS SPECTRA [facility] Comment: A reference range for this assay has not been established for body fluids. If blood results are available f or this analyte, results may be interpreted in comparison to those resul ts. Urea Clearance, PD Fluid 3.4 mL/min APS S PECTRA [facility] Urea Clearance, PDF Norm 2.7 mL/min APS S PECTRA [facility] Urea Clear, Tot Norm Wkly 121 L/wk APS SPECTRA [facility] Urea Clear, PDF Norm Wkly 34 L/wk APS SPECTRA [facility] Creatinine Clear, PDF 1.2 mL/min APS SPEC TRA [facility] Creatinine Clear, PDF Norm 1.0 mL/min APS SPECTRA [facility] Creat Clear, PDF Norm Wkly 12 L/wk APS SPECTRA [facility] Creat Clear, Tot Wkly 185 L/wk APS SPEC TRA [facility] Specimen (Source) Anatomical Collection Method Collection Time Re ceived Time Location / / Volume Laterality 04/21/2019 04/22/2019 12:5 4 PM DIE STAMPER Resulting Agency Comment Specimen source: PD Fluid López Mariano MD LAB BODY FLUIDS AND STOOLS O RDERABLES Performing Organization Address City/State/ZIP Code Phon e Number APS SPECTRA [facility] (ABNORMAL) HEMATOLOGY (04/21/2019) Analysis Performed At Patho logist Time Signature WBC 6.53 4.80 - APS SPECTRA 10.80 [facility] 1000/mcL RBC 3.54 (L) 4.20 - APS SPECTRA 5.40 [facility] mill/mcL Hemoglobin 11.3 (L) 12.0 - APS SPECTRA [...] ceived Time Location / / Volume Laterality 04/21/2019 04/22/2019 2:09 PM DIE STAMPER Narrative APS SPECTRA [facility] - 04/22/2019 Unless otherwise specified, test(s) performed at: [facility], [address] [place] [address] JAVA LEAD DEVELOPER: Rika lew M.D. For any questions, please call customer service at FREQUENCY:MONTHLY Resulting Agency Comment Specimen source: Blood López Mariano MD LAB BLOOD ORDERABLES Performing Organization Address City/State/ZIP Code Phon e Number APS SPECTRA [facility] PATIENT INFORMATION (04/21/2019) P athologist Signature Urea Volume 42.6 L APS SPECTRA Distribution [facility] ([place]) Specimen (Source) Anatomical Collection Method Collection Time Re ceived Time Location / / Volume Laterality 04/21/2019 04/22/2019 12:5 4 PM DIE STAMPER Narrative APS SPECTRA [facility] - 04/22/2019 Unless otherwise specified, test(s) performed at: [facility], [address] [place] [address] JAVA LEAD DEVELOPER: Rika lew M.D. For any questions, please call customer service at FREQUENCY:MONTHLY Resulting Agency Comment Specimen source: PD Fluid López Mariano MD LAB BLOOD ORDERABLES Performing Organization Address City/[facility] Phon e Number APS SPECTRA [facility] PATIENT INFORMATION (04/21/2019) P athologist Signature Patient Weight 101.5 APS SPECTRA [facility] Patient Height 172.0 APS SPECTRA [facility] Amputee Status NO APS SPECTRA [facility] Amputee Parts NONE APS SPECTRA [facility] Drain volume, 6,725 APS SPECTRA PDF [facility] Collection 24.0 APS SPECTRA Time, PDF [facility] Urine Volume 1,150 APS SPECTRA [facility] Collection 24.0 APS SPECTRA Interval, Ur [facility] Specimen (Source) Anatomical Location Collection Method / Collectio n Time Received Time / Laterality Volume 04/21/2019 04/21/2019 Narrative APS SPECTRA [facility] - 04/22/2019 Unless otherwise specified, test(s) performed at: [facility], [address] [place] [address] JAVA LEAD DEVELOPER: Rika lew M.D. For any questions, please call customer service at FREQUENCY:MONTHLY Resulting Agency Comment Specimen source: PD Fluid López Marinao MD LAB BLOOD ORDERABLES Performing Organization Address City/State/ZIP Code Phon e Number APS SPECTRA [facility] documented in this encounter Visit Diagnoses Not on filedocumented in this encounter
--- OUTSIDE RECORDS SUMMARY | 2021-12-28 14:10 | XMS_ITS | Encounter Summary ---
:1965 Author Organization [facility] Address [address] [place] [address] Care Team Providers Name Role Phone Unavailable Primary Care Provider Unavailable Encounter Details Date Type Department Care Team Description 06/21/2019 Treatment [facility] López Awad MD [address] [place], [place] [phone] (Wo rk) Social History Tobacco Use Types Packs/Day Years Used Date Smoking Tobacco: Never Assessed Sex Assigned at Date Recorded Not on file documented as of this encounter Miscellaneous Notes Dialysis Note - López Mariano MD - 06/21/2019 10:49 AM CST Date: Jun 21, 2019 Patient Name: Stephanie Norman : 1965 Chart #: [id number] Sex: F This patient was personally seen for a complete visit as part of routine monthly dialysis care. A review of the dialysis treatment, blood pressure, estimated dry weight, and recent lab values was made.These were discussed with the patient and staff as necessary. WHARF LABORER: López Mariano MD LOCATION: [phone] SCHEDULE: No Routine Schedule Subjective 4: Overall doing very well. 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 No drain pain anymore. Wonders if she can shorten treatment time slightly to make mornings with kids and getting to work a little easier. 2/5: Stephanie is doing great! She feels great, [...] dressing in place, exit site clean per recovery unit operator List Medication Sig Start Date aspirin 81 [...] on: 01/2019 Surgeon - Dr. Martinez [place] [facility] [place] and patient report access is working [...] is at goal. Ferritin is at goal. REpeat Hgb and iron studies next month, may need iron, Hgb down slightly but at goal Nutritional and Metabolic Assessment ALBUMIN (G/DL) g/dL [...] at goal. Intact PTH is at goal. Missing some doses of binder, encouraged good compliance and she will work on this. Cardiovascular Assessment Blood pressure reviewed and is acceptable. Continue same cardiovascular medications. Estimated dry weight is appropriate. Transplant Status Patient has been referred. [facility] Needs angiogram, then will likely be listed pending result Resuscitation Status Additional Comments: She is doing well on PD, tolerating cycler well. Will reduce time slightly to 8.5hrs to accomodate her schedule, may actually help with UF as well and she has plenty of residual function I think kt/v will still be plenty adequate Having angiogram at [place] this month, repeat adequacy next month after this and see if any drop in residual function Discussed that she can use extra 2.5% before weight goes up 2-3 Kg and before RN calls her to do this López Mariano MD [ Signed And locked electronically On 06/21/2019 at 10:53:29 AM ] Transcribed: López Mariano ( 06/21/2019 ) documented in this encounter Plan of Treatment Not on filedocumented as of this encounter Visit Diagnoses Not on filedocumented in this encounter
--- OUTSIDE RECORDS SUMMARY | 2021-12-28 14:10 | XMS_ITS | Encounter Summary ---
:1965 Author Organization [facility] Address [address] [place] [address] Care Team Providers Name Role Phone Unavailable Primary Care Provider Unavailable Encounter Details Date Type Department Care Team Description 03/31/2019 Treatment [facility] Javi Rausch MD [address] [place], [place] [phone] [place] [address] (Wo rk) Social History Tobacco Use Types Packs/Day Years Used Date Smoking Tobacco: Never Assessed Sex Assigned at Date Recorded Not on file documented as of this encounter Plan of Treatment Not on filedocumented as of this encounter Visit Diagnoses Not on filedocumented in this encounter
--- OUTSIDE RECORDS SUMMARY | 2021-12-28 14:10 | XMS_ITS | Encounter Summary ---
:1965 Author Organization [facility] Address [facility] [address] [place] [address] Care Team Providers Name Role Phone Unavailable Primary Care Provider Unavailable Encounter Details Date Type Department Care Team Description 04/27/2019 Documentation Only [facility] O f López Awad, [address] [place] [address] [place], [place] [phone] (Wo rk) Social History Tobacco Use Types Packs/Day Years Used Date Smoking Tobacco: Never Assessed Sex Assigned at Date Recorded Not on file documented as of this encounter Plan of Treatment Not on filedocumented as of this encounter Visit Diagnoses Not on filedocumented in this encounter
--- OUTSIDE RECORDS SUMMARY | 2021-12-28 14:10 | XMS_ITS | Clinical Summary ---
:1965 [facility] Address [address] [place] [address] Care Team Providers Name Role Phone Haylee Alanis APRN, CNP Primary Care Provider Source Comments You are receiving this document as you are listed as the primary care provider,follow-up provider, or the patient has been referred to you for consultation.This is in compliance with the Medicare and Medicaid EHR Incentive Program,which states Providers who transition their patient to another setting of careor provider of care or refers their patient to another provider of care shouldprovide summarycare record for each transition of care or referral. [place] Allergies Active Allergy Reactions Severity Noted Date Comments Amoxicillin Neomycin 08/07/2002 topical sensiti zation Penicillins 08/06/2000 Medications Medication Sig Dispensed Refills Start Date End Date Status vuthwuj-qfeoxhtymwszr-k Take 1 Tab by 0 Active affeine (EXCEDRIN mouth every 6 MIGRAINE) 250-250-65 MG hours as needed. tablet acetaminophen (TYLENOL Take 500-1,000 mg 0 Active EXTRA STRENGTH) 500 MG by mouth every 4 tablet hours as needed. beclomethasone (QVAR) Inhale 1 Puff by 7.3 g 3 03/14/2012 Active 80 MCG/ACT inhaler mouth two times a day. Rinse mouth after use omeprazole (PRILOSEC) Take 1 Cap by 90 Cap 3 03/14/2012 Active 20 MG capsule mouth daily. Take 1 hour before a meal. ALBUterol 2.5 mg/3 mL, Inhale 3 mL by 60 Each 6 06/24/2013 Active 0.083%, nebulizer mouth 4 times a solutionIndications: day as needed for Asthma with Wheezing or exacerbation, mild Shortness of intermittent (HRC) Breath. traZODone (AKA DESYREL) Take 1 Tab by 90 Tab 3 06/24/2013 Active 50 MG tablet mouth at bedtime as needed for Sleep. loratadine (KLS Take 10 mg by 0 Active ALLERCLEAR) 10 MG mouth daily at tablet bedtime. ferrous gluconate (AKA Take 1 Tab by 100 Tab 12 09/26/2013 Active FERGON) 324 (38 FE) MG mouth daily with tablet breakfast. Additional Information Patient not taking. Reported on 02/04/2016 carvedilol (AKA COREG) 12.5 MG Take 2 Tabs by mouth two 120 Tab 2 04/10/2014 Active tablet times a day. lisinopril (AKA ZESTRIL) 20 MG Take 1 Tab by mouth two 180 Tab 0 09/04/2014 Active tabletIndications: Unspecified times a day. essential hypertension (HRC) Additional Information Patient not taking. Reported on 01/08/2021 calcitriol (AKA ROCALTROL) 0.25 MCG Take 1 Cap by mouth 39 Cap 0 09/05/2014 Active capsuleIndications: Polycystic three times a week. kidney, unspecified type Additional Information Patient not taking. Reported on 01/08/2021 citalopram (AKA CELEXA) 40 MG Take 1 Tab by mouth 90 Tab 3 09/03/2014 Active tablet daily. felodipine ER (AKA PLENDIL) Take 2.5 mg by mouth 0 Active 2.5 MG tablet daily. calcium acetate (PHOSLO) 667 Take 1 Cap by mouth two 60 Cap 11 09/21/2014 Active MG capsule times a day with meals. Additional Information Patient not taking. Reported on 02/04/2016 simvastatin (AKA ZOCOR) 40 MG Take 0.5 Tabs by mouth 45 Tab 2 06/28/2015 Active tablet daily at bedtime. Additional Information Patient not taking. Reported on 01/08/2021 Multiple Vitamins-Iron 0 Active (MULTIVITAMIN/IRON OR) tolvaptan (AKA SAMSCA) 15 MG Take 60 mg by mouth 0 Active tablet daily. Take 3 tablets by mouth in the morning and 1 tablet in the evening atorvastatin (LIPITOR) 40 MG Take 40 mg by mouth 0 0 10/03/2020 Active tablet daily. B Srtjdms-V-Qitpm Acid (USAMA Take 1 Capsule by mouth 0 12/02/2020 Active CAPS) 1 MG daily. esomeprazole (NEXIUM) 40 MG Take 20 mg by mouth. 0 Active packet sevelamer carbonate (RENVELA) 800 TAKE 2 TABLETS BY MOUTH 0 11/05/2020 Active MG tablet THREE TIMES DAILY WITH MEALS AND 1 TABLET TWICE DAILY WITH SNACKS torsemide (DEMADEX) 20 MG tablet Take 40 mg by mouth 0 11/04/2020 Active daily. buPROPion (WELLBUTRIN XL) 150 MG Take 150 mg by mouth 0 11/08/2021 Active 24 hour release tablet every morning. sodium fluoride dental Apply thin ribbon to 60 g 6 2021 Active (PREVIDENT) 1.1 % gel teeth with toothbrush or mouthpiece tray for at least 1 minute. Spit out gel and rinse mouth thoroughly. 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 04/24/2020 pectoris Acidosis 02/20/2019 Anemia in chronic kidney disease 02/20/2019 Cholecystitis, unspecified 02/20/2019 Secondary hyperparathyroidism of renal origin 02/21/20 19 Essential (primary) hypertension 02/20/2019 End stage renal disease 02/19/2019 Polycystic kidney, unspecified 02/19/2019 Nicotine dependence 10/05/2018 Health examination of defined subpopulation 10/08/2017 Stage 4 chronic kidney disease 10/08/2017 Other secondary hypertension 10/08/2017 Chronic kidney disease, stage IV (severe) 09/26/2013 Autosomal dominant polycystic kidney disease 4 Family history of breast cancer in first degree relati ve 06/24/2013 Overview: Both parents with breast CA. DNA testing was negative for mutation of either BRCA1 or BRCA2 (2013 by ) Mild persistent asthma 08/28/2011 Obstructive sleep apnea 03/31/2011 Overview: Epic PMDD (premenstrual dysphoric disorder) 09/30/2009 Hypercholesterolemia with hyperglyceridemia 06/28/2007 Allergic rhinitis 10/22/2004 Overview: [facility] Reflux esophagitis 06/01/2003 Polycystic kidney 06/01/2003 Overview: [facility] Essential hypertension 06/01/2003 Overview: [facility] Varicella 12/20/1996 Overview: [facility] Resolved Problems Problem Noted Date Resolved Date Other tenosynovitis of hand and wrist 09/05/2012 Tobacco use disorder 01/06/2008 03/14/2012 Overview: February 23, 2011 Asthma 06/17/2005 08/28/2011 Tobacco use disorder 01/15/2005 03/03/2007 Unspecified disorder of menstruation and other abnormal 04/200302/07/2010 bleeding from female genital tract Polyp of corpus uteri 02/18/2004 12/27/2010 Encounters Date Type Specialty Care Team Description 11/11/2021 Office Visit General Dentistry Sallie Costa, Dental Hygiene (Cc none) RDH from Last 3 Months Immunizations Name Administration Dates Next Due Flu Vac (3+ yrs) 03/14/2012, 01/27/2011, 01/28/2010, 01/01/2009, 03/08/2008, 02/18/2006, 04/15/2004 H1n1 Miv Sanofi 3+ Yr (Injected) 05/14/2009 Influenza IIV4 (Quadrivalent) 0.5mL 02/04/2016, 12/21/2013 (41230) Influenza, Unspecified Formulation 01/24/1997 PPSV23 (Pneumovax) 02/04/2016 Td 12/19/1996 Td (7+ yrs) 2006 Tdap 05/18/2011 Varicella 12/20/1996 (Deferred: Immune by Disease) Family History Medical History Relation Name Comments Cancer, Breast Father breast. Dx age 6 5. 2006. Cancer and Heart attack in mid - 60s. Cancer, Melanoma Father Kidney Disorder Father polycystic kidne y disease Cancer, Breast Mother breast, Dx age 4 0. 4 yrs later. Depression Mother Depression Brother 2 Depression Other uncle committed suicide Relation Name Status Comments Father (Age 69) cancer Mother (Age 44) cancer Brother 1 Alive Brother 2 Maternal Grandfather (Age 40's) Maternal Grandmother (Age 70's) Other Paternal Grandfather (Age ?) Paternal Grandmother (Age 50's) Sister Alive Social History Tobacco Use Types Packs/Day Years Used Date Smoking Tobacco: Every Day Cigarettes 0.5 20 L ast attempted to quit: 12/20/2010 Smokeless Tobacco: Never Comments: 1/2 pack per day Alcohol Use Standard Drinks/Week Comments Yes 1 (1 standard drink = 0.6 oz pure alcoho l) rarely Sex Assigned at Date Recorded Not on file Last Filed Vital Signs Vital Sign Reading Time Taken Comments Blood Pressure 127/86 02/04/2016 1:35 PM CDT Pulse 72 03/27/2021 10:35 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 Temperature 36.7 ??C (98 ??F) 01/18/2014 1:08 PM CDT Respiratory Rate 18 01/02/2014 1:43 PM CDT Oxygen Saturation 95% 01/02/2014 1:43 PM CDT Inhaled Oxygen Concentration - - Weight 106.2 kg (234 lb 3.2 oz) 02/04/2016 1:35 PM CDT Height 169.5 cm (5' 6.75) 02/04/2016 1:35 PM CDT Body Mass Index 36.96 02/04/2016 1:35 PM CDT Plan of Treatment Health Maintenance Due Date Last Done Comments Colon Cancer Screening Plan 1965 Due HepB (1) 1965 COVID-19 Vaccine (#1) 1965 HIV Screening (Preventive 1980 Services) Cervical Cancer Screening 03/15/2012 03/14/2012, 03/14/2012 , Due 07/05/2008, Additional history exists Zoster/Shingles (1 of 2) 2014 Adult Preventive Visit 06/24/2014 06/24/2013, 03/14/2012, 12/27/2010, Additional history exists Mammogram 03/05/2017 03/05/2016, 05/15/2014, 03/08/2012, Additional history exists Cholesterol 09/20/2019 09/19/2014, 06/24/2013, 03/14/2012, Additional history exists DTaP/Tdap/Td (2 - Tdap) 05/18/2021 05/18/2011, 2006, 12/19/1996 Influenza (#1) 2021 01/31/2021, 01/24/2020, 01/23/2017, Additional history exists Hep C Screening (Preventive Completed 02/04/2016, 02/04/20 16 Services) (Completed) Pneumococcal Aged Out 08/21/2020, 02/04/2016 No longer eligible based on patient 's age to complete this topic HepA Aged Out No longer eligib le based on patient 's age to complete this topic Hib Aged Out No longer eligib le based on patient 's age to complete this topic IPV (Polio) Aged Out No longer eligib le based on patient 's age to complete this topic MCV4 Aged Out No longer eligib le based on patient 's age to complete this topic Procedures Procedure Name Priority Date/Time Associated Diagnosis Comme nts PERIODIC ORAL Routine 11/11/2021 12:10 PM Routine health EVALUATION CDT maintenance PROPHYLAXIS-ADULT Routine 11/11/2021 12:10 PM Routine health RECALL CDT maintenance from Last 3 Months Insurance Payer Benefit Plan Subscriber ID Effective Phone Address Typ e / Group Dates [employer] COMM [id number] Effective for C ommercial DENTAL PLAN [facility] all dates DENTAL [employer] SELF [id number] 2014-[facility] [employer] CARE nt [address] (Home) [place], [place] [phone] (Work) Stephanie Norman Personal/Family Self [address] (Home) [place], [place] [phone] (Work) Stephanie Norman Workers Comp Self [address] (Home) [place], [place] [phone] (Work) Advance Directives Latest Code Status on File Code Status Date Activated Date Inactivated Comments Full Code 01/02/2014 10:34 AM 01/02/2014 6:13 PM Care Teams Fruit Thinner Relationship Specialty Start Date End Date Haylee Alanis APRN, TERMINAL SUPERVISOR PCP - General Nurse Practitioner 02/04/16 [address], [place] [address]
--- OUTSIDE RECORDS SUMMARY | 2021-12-28 14:10 | XMS_ITS | Encounter Summary ---
:1965 Author Organization [facility] Address [facility] [address] [place] [address] Care Team Providers Name Role Phone Unavailable Primary Care Provider Unavailable Encounter Details Date Type Department Care Team Description 02/27/2019 Office Communication [facility] [place] [place] MD [address] [place] [address] [phone] Social History Tobacco Use Types Packs/Day Years Used Date Smoking Tobacco: Never Assessed Sex Assigned at Date Recorded Not on file documented as of this encounter Plan of Treatment Not on filedocumented as of this encounter Visit Diagnoses Not on filedocumented in this encounter
--- OUTSIDE RECORDS SUMMARY | 2021-12-28 14:10 | XMS_ITS | Encounter Summary ---
:1965 Author Organization [facility] Address [facility] [address] [place] [address] Care Team Providers Name Role Phone Unavailable Primary Care Provider Unavailable Encounter Details Date Type Department Care Team Description 06/23/2019 Documentation Only [facility] López Awad, [address] [place] [address] [place], [place] [phone] (Wo rk) Social History Tobacco Use Types Packs/Day Years Used Date Smoking Tobacco: Never Assessed Sex Assigned at Date Recorded Not on file documented as of this encounter Plan of Treatment Not on filedocumented as of this encounter Visit Diagnoses Not on filedocumented in this encounter
--- OUTSIDE RECORDS SUMMARY | 2021-12-28 14:10 | XMS_ITS | Encounter Summary ---
:1965 Author Organization [facility] Address [address] [place] [address] Care Team Providers Name Role Phone Unavailable Primary Care Provider Unavailable Encounter Details Date Type Department Care Team Description 06/19/2019 Orders Only [facility] López Awad MD [address] [place] [address] [place], [place] [phone] (Wo rk) Social History Tobacco Use Types Packs/Day Years Used Date Smoking Tobacco: Never Assessed Sex Assigned at Date Recorded Not on file documented as of this encounter Plan of Treatment Not on filedocumented as of this encounter Procedures Procedure Name Priority Date/Time Associated Diagnosis Comme nts HEMATOLOGY Routine 06/19/2019 Results for thi s procedure are in the resu lts section. CHEMISTRY Routine 06/19/2019 Results for thi s procedure are in the resu lts section. documented in this encounter Results (ABNORMAL) HEMATOLOGY (06/19/2019) [facility] Time Signature WBC 5.63 4.80 - [facility] 10.80 [facility] 1000/mcL RBC 3.67 (L) 4.20 - [facility] 5.40 [facility] mill/mcL Hemoglobin 11.0 (L) 12.0 - [facility] 16.0 g/dL [facility] Hemoglobin x 3 33.0 (L) 36.0 - [facility] 48.0 % [facility] Hematocrit 34.3 (L) 37.0 - [facility] 47.0 % [facility] MCV 94 80 - 100 [facility] fl [facility] MCH 30.0 27.0 - [facility] 31.0 pg [facility] MCHC 32.0 30.0 - [facility] 36.0 g/dL [facility] RDW 13.1 11.5 - [facility] 14.5 % [facility] Specimen (Source) Anatomical Collection Method Collection Time Re ceived Time Location / / Volume Laterality 06/19/2019 06/20/2019 2:37 PM 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 For any questions, please call customer service at FREQUENCY:MONTHLY Resulting Agency Comment Specimen source: Blood López Mariano MD LAB BLOOD ORDERABLES Performing Organization Address City/State/ZIP Code Phon e Number [facility] (ABNORMAL) [facility] Chemistry (06/19/2019) [facility] gist Method Time Signature BUN 33 (H) 6 - 19 [facility] mg/dL [facility] Creatinine 3.95 (H) 0.60 - [facility] 1.30 mg/dL [facility] BUN/Creatinine 8.4 (L) 10.0 - [facility] Ratio 20.0 [...] 160 mcg/dL [facility] [place] [facility] UIBC 228 155 - 355 mcg/dL [facility] K [facility] TIBC 299 185 - 515 mcg/dL [facility] K [facility] Iron Saturation (TSat) 24 20 - 55 % [facility]PS SPE CTRA [facility] Specimen (Source) Anatomical Collection Method Collection Time Re ceived Time Location / / Volume Laterality 06/19/2019 06/20/2019 1:11 PM FRONT END DEVELOPER DESIGNER Narrative [facility] - 06/20/2019 Unless otherwise specified, test(s) performed at: [id number], [address] [place], [place] [id number] SUPERVISOR FRYER FARM: Rika lew M.D. For any questions, please call customer service at FREQUENCY:MONTHLY Resulting Agency Comment Specimen source: Serum López Mariano MD LAB BLOOD ORDERABLES Performing Organization Address City/State/ZIP Code Phon e Number [facility] documented in this encounter Visit Diagnoses Not on filedocumented in this encounter
--- OUTSIDE RECORDS SUMMARY | 2021-12-28 14:10 | XMS_ITS | Encounter Summary ---
:1965 Author Organization [facility] Address [address] [place] [address] Care Team Providers Name Role Phone Unavailable Primary Care Provider Unavailable Encounter Details Date Type Department Care Team Description 04/13/2019 Orders Only [facility] Virgilio Salazar DO [address] [place] [address] [address] [place] [phone] (Wo rk) Social History Tobacco Use Types Packs/Day Years Used Date Smoking Tobacco: Never Assessed Sex Assigned at Date Recorded Not on file documented as of this encounter Plan of Treatment Not on filedocumented as of this encounter Procedures Procedure Name Priority Date/Time Associated Diagnosis Comme nts CULTURE,BLOOD-2ND SET Routine 04/13/2019 Result s for this procedure are i n the results section . BLOOD CULTURE Routine 04/13/2019 Results for th is procedure are i n the results section . documented in this encounter Results Blood culture (04/13/2019) Analysis Performed At Patho logist Time Signature Culture, Blood See below [facility] Comment: No Aerobic or Anaerobic Growth after 5 D ays of Incubation. 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 For any questions, please call customer service at FREQUENCY:OTHER Resulting Agency Comment Specimen source: Blood/CVC (A/V) [facility] DO LAB MICROBIOLOGY - GENERAL O RDERABLES Performing Organization Address City/[facility]/ZIP Code Phon e Number [facility] Blood culture (04/13/2019) Analysis Performed At Patho logist Time Signature Culture See below [facility] Result, [facility] Blood-2nd Set Comment: No Aerobic or Anaerobic Growth after 5 D ays of Incubation. 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 For any questions, please call customer service at FREQUENCY:OTHER Resulting Agency Comment Specimen source: Blood/CVC (A/V) [facility] DO LAB MICROBIOLOGY - GENERAL O RDERABLES Performing Organization Address City/[facility]/ZIP Code Phon e Number [facility] documented in this encounter Visit Diagnoses Not on filedocumented in this encounter
--- OUTSIDE RECORDS SUMMARY | 2021-12-28 14:10 | XMS_ITS | Encounter Summary ---
:1965 Author Organization [facility] Address [address] [place] [address] Care Team Providers Name Role Phone Unavailable Primary Care Provider Unavailable Encounter Details Date Type Department Care Team Description 04/18/2019 Documentation Only [facility] Javi Ramos MD [address] [place] [address] [place], [place] [phone] (Wo rk) Social History Tobacco Use Types Packs/Day Years Used Date Smoking Tobacco: Never Assessed Sex Assigned at Date Recorded Not on file documented as of this encounter Plan of Treatment Not on filedocumented as of this encounter Visit Diagnoses Not on filedocumented in this encounter
--- OUTSIDE RECORDS SUMMARY | 2021-12-28 14:10 | XMS_ITS | Encounter Summary ---
:1965 Author Organization [facility] Address [address] [place] [address] Care Team Providers Name Role Phone Unavailable Primary Care Provider Unavailable Encounter Details Date Type Department Care Team Description 04/26/2019 Orders Only [facility] López Awad MD [address] [place] [address] [place], [place] [phone] (Wo rk) Social History Tobacco Use Types Packs/Day Years Used Date Smoking Tobacco: Never Assessed Sex Assigned at Date Recorded Not on file documented as of this encounter Plan of Treatment Not on filedocumented as of this encounter Procedures Procedure Name Priority Date/Time Associated Diagnosis Comme nts P.E.T. UREA NITROGEN, Routine 04/26/2019 Result s for this PDF procedure are i n the results section . P.E.T. UREA NITROGEN, Routine 04/26/2019 Result s for this PDF procedure are i n the results section . P.E.T. UREA NITROGEN, Routine 04/26/2019 Result s for this PDF procedure are i n the results section . CHEMISTRY Routine 04/26/2019 Results for thi s procedure are i n the results section . documented in this encounter Results (ABNORMAL) [facility] Chemistry (04/26/2019) P athologist Signature BUN 38 (H) 6 - 19 [facility] mg/dL [facility] Specimen (Source) Anatomical Collection Method Collection Time Re ceived Time Location / / Volume Laterality 04/26/2019 04/28/2019 10:5 8 AM BULK INTAKE WORKER Narrative [facility] - 04/28/2019 Unless otherwise specified, test(s) performed at: [facility], [address] [place] [address] CAR PUSHER: Rika lew M.D. For any questions, please call customer service at FREQUENCY:OTHER Resulting Agency Comment Specimen source: Serum López Mariano MD LAB BLOOD ORDERABLES Performing Organization Address [facility] Phon e Number [facility] P.E.T. UREA NITROGEN, PDF (04/26/2019) P athologist Signature Urea Nitrogen, 10 mg/dL [facility] PDF 0 Hr [facility] Comment: A reference range for this assay has not been established for body fluids. If blood results are available f or this analyte, results may be interpreted in comparison to those resul ts. Specimen (Source) Anatomical Collection Method Collection Time Re ceived Time Location / / Volume Laterality 04/26/2019 04/27/2019 1:44 PM BULK INTAKE WORKER Narrative [facility] - 04/27/2019 Unless otherwise specified, test(s) performed at: [facility], [address] [place], [place] [address] CAR PUSHER: Rika lew M.D. For any questions, please call customer service at FREQUENCY:OTHER Resulting Agency Comment Specimen source: PD Fluid López Mariano MD LAB BLOOD ORDERABLES Performing Organization Address [facility] Phon e Number [facility] P.E.T. UREA NITROGEN, PDF (04/26/2019) P athologist Signature Urea Nitrogen, 34 mg/dL [facility] PDF 2 Hr [facility] Comment: A reference range for this assay has not been established for body fluids. If blood results are available f or this analyte, results may be interpreted in comparison to those resul ts. Specimen (Source) Anatomical Collection Method Collection Time Re ceived Time Location / / Volume Laterality 04/26/2019 04/27/2019 1:46 PM BULK INTAKE WORKER Narrative [facility] - 04/27/2019 Unless otherwise specified, test(s) performed at: [facility], [address] [place] [id number] CAR PUSHER: Rika lew M.D. For any questions, please call customer service at FREQUENCY:OTHER Resulting Agency Comment Specimen source: PD Fluid López Mariano MD LAB BLOOD ORDERABLES Performing Organization Address City/State/ZIP Code Phon e Number [facility] P.E.T. UREA NITROGEN, PDF (04/26/2019) P athologist Signature Urea Nitrogen, 39 mg/dL [facility] PDF 4 Hr [facility] Comment: A reference range for this assay has not been established for body fluids. If blood results are available f or this analyte, results may be interpreted in comparison to those resul ts. Specimen (Source) Anatomical Collection Method Collection Time Re ceived Time Location / / Volume Laterality 04/26/2019 04/27/2019 1:46 PM BULK INTAKE WORKER Narrative [facility] - 04/27/2019 Unless otherwise specified, test(s) performed at: [facility], [address] [place] [address] CAR PUSHER: Rika lew M.D. For any questions, please call customer service at FREQUENCY:OTHER Resulting Agency Comment Specimen source: PD Fluid López Mariano MD LAB BLOOD ORDERABLES Performing Organization Address City/State/ZIP Code Phon e Number [facility] documented in this encounter Visit Diagnoses Not on filedocumented in this encounter
--- OUTSIDE RECORDS SUMMARY | 2021-12-28 14:11 | XMS_ITS | Encounter Summary ---
:1965 Author Organization [facility] Address [address] [place] [address] Care Team Providers Name Role Phone Tiffany Gonzalez APRN, DNP Primary Care Provider Reason for Visit Reason Onset Date Comments Refill 09/03/2014 Encounter Details Date Type Department Care Team Description 09/03/2014 Refill [facility] Nephrology Lisa Patrick, DIRECTOR OF ADULT EPILEPSY, POWER PLANT MECHANIC Refill [address] [facility] [address] [place] [address] [place], [place] [id number] (Wo rk) Social History Tobacco Use Types Packs/Day Years Used Date Smoking Tobacco: Every Day Cigarettes 0.5 L ast attempted to quit: 02/23/2011 Smokeless Tobacco: Never Comments: 1/2 pack per day Alcohol Use Standard Drinks/Week Comments Yes 0.8 (1 standard drink = 0.6 oz pure alco hol) rarely Sex Assigned at Date Recorded Not on file documented as of this encounter Nursing Notes Jen Hunter RN - 09/03/2014 3:14 PM CDT This medication is managed through patient's PCP, Dr. Gonzalez. Routed to her care team to review and address. Jen Galvan RN 09/03/2014, 3:15 PM Interface, Out Knotice Prov Query - 09/03/2014 9:29 AM CDT simvastatin (AKA ZOCOR) 40 MG tablet - REFILL: 9 months - PROTOCOL: Hyperlipidemia: Statins - RATIONALE: This refill should last until the patient is due for an office visit. - LAST QUALIFYING VISIT IN NEPHROLOGY: 04/04/2014 - NEXT SCHEDULED VISIT IN NEPHROLOGY: 09/19/2014 - LAST REFILLED ON: 06/24/2013, QTY: 45, Refills: 3, Sig: take 0.5 tabs by mouth daily at bedtime. (unchanged) Powered by [employer], Reference: [id number], 09/03/2014 9:29:44 AM CDT, Pool: Celina ([id number]) documented in this encounter Plan of Treatment Not on filedocumented as of this encounter Visit Diagnoses Diagnosis HYPERTENSION NOS Unspecified essential hypertension POLYCYSTIC KIDNEY, UNSPEC Polycystic kidney, unspecified type documented in this encounter Care Teams Echo Vasc Tech Relationship Specialty Start Date End Date Tiffany Gonzalez APRN, DNP PCP - General 01/16/00 02/03/16 [place] [id number] documented as of this encounter
--- OUTSIDE RECORDS SUMMARY | 2021-12-28 14:11 | XMS_ITS | Encounter Summary ---
:1965 Author Organization [facility] Address [address] [place] [address] Care Team Providers Name Role Phone Tiffany Gonzalez APRN, DNP Primary Care Provider [phone] Reason for Visit Reason Comments Medication Questions Encounter Details Date Type Department Care Team Description 06/07/2014 Telephone [facility] Nephrology Micaela Martin MD Medication Questions [address] [facility] [address] [place] [address] [place] [address] [phone] (Wo rk) Social History Tobacco Use Types Packs/Day Years Used Date Smoking Tobacco: Every Day Cigarettes 0.5 L ast attempted to quit: 02/23/2011 Smokeless Tobacco: Never Comments: 1/2 pack per day Alcohol Use Standard Drinks/Week Comments Yes 0.8 (1 standard drink = 0.6 oz pure alco hol) rarely Sex Assigned at Date Recorded Not on file documented as of this encounter Nursing Notes Tami Hoyt RN - 06/13/2014 3:00 PM CST Left a message on the patient cell phone number Notes are not received from the [facility] following three phone calls asking for the documentation Letter is mailed to pt at home address. Letter asks the patient to please locate the documentation as to when the Lisinopril dose was increased Tami Hoyt RN 06/13/2014, 3:02 PM Tami Carrillo RN - 06/13/2014 10:56 AM CST Call is placed to the [facility]- Left a message for Alon. Need the documentation for the Lisinopril dose increase. Tami Hoyt RN 06/13/2014, 10:57 AM Tami Carrillo RN - 06/12/2014 9:19 AM CST Spoke to Alon at the [facility] Transplant clinic. Alon will research for the note when the Lisinopril dosing was increased and fax the note to Nephrology Tami Hoyt RN 06/12/2014, 9:20 AM Tami Carrillo RN - 06/11/2014 9:46 AM CST Left a voicemail for Stephanie: Does patient know approximate date the Lisinopril was increased and the MD at [place], that ok'd the increase [facility] is searching the records without indication of Lisinopril increase Tami Hoyt RN 06/11/2014, 9:47 AM Tami Carrillo RN - 06/08/2014 3:49 PM CST Left a detailed message on the patient cell phone. Unable to call the long distance number to her home. rx is [facility] to [facility] in [place] Order for BMP is placed in [facility] Call placed to [facility] to get the Nephrology note- to show when Lisinopril dose was increased Alon, the Nurse at [facility] is looking for the documentation. Will fax to Nephrology on Jun 11 Tami Hoyt RN 06/08/2014, 3:50 PM Lisa Olsen - 06/08/2014 2:44 PM CST OK to fill at 20 mg BID. Patient will need to repeat a BMP in 5-7 days (as I did not increase lisinopril, I would like a baseline creatinine if I am following) I would also like documentation from the provider who increased dose Thanks, Lisa Patrick APRN, CNP 06/08/2014, 2:46 PM \ Tami Carrillo RN - 06/08/2014 9:26 AM CST Patient states the Lisinopril was increased to bid per the [facility] where she is participating clarissa Kidney Study BP yesterday was 129/79 Did not record the pulse (pt was asked to do this going forward) Plan: will consult with Lisa Patrick CNP for Lisinipril bid dosing Pt has a scheduled office appointment on June 26 with Lisa Hoyt RN 06/08/2014, 9:27 AM Tami Carrillo RN - 06/07/2014 3:28 PM CST Unable to reach the [facility] The outgoing Long Distance call will not go thru Left a message for the patient to please call Sent the RX again Electronically to [facility] with a note, that RX is QD, not bid Tami Hoyt RN 06/07/2014, 3:29 PM Rob Rodrigues - 06/07/2014 2:49 PM CST Pharmacist from [facility] [place] is calling pretaining medication for pt. The medication is lisinopril (AKA ZESTRIL) 20 MG tablet. Pharamcist stated that pt is taking medication twice a day instead ofonce a day. Pharmacist would like to have the doctor issue a new prescription for the correct dosage. Please advise Rob Cerrato SFER STATION OPERATOR documented in this encounter Plan of Treatment Not on filedocumented as of this encounter Visit Diagnoses Diagnosis HYPERTENSION NOS Unspecified essential hypertension documented in this encounter Care Teams Radio Recorder Relationship Specialty Start Date End Date Tiffany Gonzalez APRN, DNP PCP - General 01/16/00 02/03/16 [address] [place] [id number] documented as of this encounter
--- OUTSIDE RECORDS SUMMARY | 2021-12-28 14:11 | XMS_ITS | Encounter Summary ---
:1965 Author Organization [employer] [facility] Address [address] [place] [address] Care Team Providers Name Role Phone Tiffany Gonzalez APRN, DNP Primary Care Provider [phone] Reason for Visit Reason Comments GALL BLADDER PROBLEMS Encounter Details Date Type Department Care Team Description 07/02/2014 Telephone [facility] Unassigned, GALL BLADDER PROBLEMS Surgery Clinic Provider [address] [facility]. [address] [place] [address] [place], [place] [phone] Social History Tobacco Use Types Packs/Day Years Used Date Smoking Tobacco: Every Day Cigarettes 0.5 L ast attempted to quit: 02/23/2011 Smokeless Tobacco: Never Comments: 1/2 pack per day Alcohol Use Standard Drinks/Week Comments Yes 0.8 (1 standard drink = 0.6 oz pure alco hol) rarely Sex Assigned at Date Recorded Not on file documented as of this encounter Nursing Notes Domingo Herzog, ANGELIKA - 07/02/2014 11:55 AM CDT 11:55 AM 07/02/2014 Spoke with pt-she was seen Wednesday in ED in [place]. Had u/s and CT done which showed gallbladder is 'normal' with no inflammation or stones. They did not want to do a study with dye since she is stage 4 polycystic kidney disease. Offered appt Wed with and she accepts. She is advised to bring all records from her visit to ED on Wednesday. She is ok with this. Domingo Herzog RN 07/02/2014, 12:02 PM Júnior Figueroa - 07/02/2014 11:08 AM CDT Patient returned call please advise. Domingo Herzog RN - 07/02/2014 10:42 AM CDT 10:42 AM 07/02/2014 Message left for pt to call. Domingo Herzog RN 07/02/2014, 10:42 AM Selena Almazan - 07/02/2014 10:26 AM CDT Pt has stage 4 kidney disease Pt was seen in [place] E/R for Gall Bladder pain Unable to prove Gallbladderfrom US and CT Unable to do further testing because of the Kidney Disease Pt was told to speak to a surgeon and put a message in to her Study Abroad Coordinator This was on voice mail Please advise or call patient [phone] documented in this encounter Plan of Treatment Not on filedocumented as of this encounter Visit Diagnoses Not on filedocumented in this encounter Care Teams Entry Level Paralegal Relationship Specialty Start Date End Date Tiffany Gonzalez, ANIMAL NURSE, DNP PCP - General 01/16/00 02/03/16 [address] [place] [id number] documented as of this encounter
--- OUTSIDE RECORDS SUMMARY | 2021-12-28 14:11 | XMS_ITS | Encounter Summary ---
:1965 Author Organization [facility] Address [address] [place] [address] Care Team Providers Name Role Phone Tiffany Gonzalez APRN, DNP Primary Care Provider [phone] Reason for Visit Reason Comments LAB RESULTS Encounter Details Date Type Department Care Team Description 09/21/2014 Telephone [facility] Nephrology Lisa Patrick APRN, LAB RESULTS [address] [place] [address] [address] [facility] [phone] [place] [phone] (Wo rk) Social History Tobacco Use Types Packs/Day Years Used Date Smoking Tobacco: Every Day Cigarettes 0.5 L ast attempted to quit: 02/23/2011 Smokeless Tobacco: Never Comments: 1/2 pack per day Alcohol Use Standard Drinks/Week Comments Yes 0.8 (1 standard drink = 0.6 oz pure alco hol) rarely Sex Assigned at Date Recorded Not on file documented as of this encounter Nursing Notes Meliza Tom RN - 09/21/2014 8:44 AM CDT Patient verbalized understanding and agreed to poc. Med and labs ordered. Meliza Tom RN 09/21/2014, 8:44 AM Meliza Tom RN - 09/21/2014 8:40 AM CDT Notes Recorded by Lisa Patrick APRN, AMY on 09/20/2014 at 10:26 AM Kidney function is stable, most recent creatinine was 2.03, kidneys functioning approximately at 28%. Phosphorus is high, restrict foods high in phosphorus. Start phosLo 1 tab BID with meals. Repeat BMP and phosphorus in 1 month PTH vitamin D, hgb are stable. Thanks Lisa Patrick APRN, CNP 09/20/2014, 10:26 AM documented in this encounter Plan of Treatment Not on filedocumented as of this encounter Visit Diagnoses Diagnosis Hyperphosphatemia - Primary Disorders of phosphorus metabolism documented in this encounter Care Teams Ems Coordinator Relationship Specialty Start Date End Date Tiffany Gonzalez APRN, DNP PCP - General 01/16/00 02/03/16 [address] [place] [id number] documented as of this encounter
--- OUTSIDE RECORDS SUMMARY | 2021-12-28 14:11 | XMS_ITS | Encounter Summary ---
:1965 Author Organization [facility] Address [address] [place] [address] Care Team Providers Name Role Phone Tiffany Gonzalez APRN, DNP Primary Care Provider Reason for Visit Reason Onset Date Comments RESULTS, TEST 04/06/2014 Encounter Details Date Type Department Care Team Description 04/06/2014 Telephone [facility] Nephrology Lisa Patrick APRN, RESULTS, TEST [address] [place] [address] [address] [facility] [phone] [place], [place] [address] (Wo rk) Social History Tobacco Use [...] encounter Nursing Notes Tami Hoyt RN - 04/10/2014 10:04 AM CST Discussed the plan of care with the patient RX is [facility] to [facility] in [place] Tami Hoyt RN 04/10/2014, 10:06 AM ETING OFFICER Meliza Tom RN - 04/09/2014 2:54 PM CST Left message to call back. Meliza Tom RN 04/09/2014, 2:54 PM ETING OFFICER Tami Hoyt RN - 04/06/2014 4:24 PM CST Reached voicemail Left a detailed message to call the Nephrology clinic to discuss the plan of care Tami Hoyt RN 04/06/2014, 4:25 PM ETING OFFICER Tami Hoyt RN - 04/06/2014 4:24 PM CST Notes Recorded by Lisa Patrick CNP on 04/05/2014 at 10:32 AM Kidney function is stable, electrolytes are ok. PTH slightly elevated, start Calcitrol 0.25 mg three times a week. All other labs are ok Lisa Galvan CNP 04/05/2014, 10:32 AM ETING OFFICER documented in this encounter Plan of Treatment Not on filedocumented as of this encounter Visit Diagnoses Diagnosis POLYCYSTIC KIDNEY, UNSPEC - Primary Polycystic kidney, unspecified type documented in this encounter Care Teams Saturator Relationship Specialty Start Date End Date Tiffany Gonzalez APRN, GAIL PCP - General 01/16/00 02/03/16 [address] [place] [id number] documented as of this encounter
--- OUTSIDE RECORDS SUMMARY | 2021-12-28 14:11 | XMS_ITS | Encounter Summary ---
:1965 Author Organization [employer] Address [address] [place] [address] Care Team Providers Name Role Phone Tiffany Gonzalez APRN, DNP Primary Care Provider Encounter Details Date Type Department Care Team Description 09/19/2014 Orders Only [facility] Hypercholesterolemia with hy perglyceridemia; [address] [facility] Polycystic kidney, unspecifi ed type; [place] [address] Chronic kidney disease, stag e IV (severe) [phone] Social History Tobacco Use Types Packs/Day Years Used Date Smoking Tobacco: Every Day Cigarettes 0.5 L ast attempted to quit: 02/23/2011 Smokeless Tobacco: Never Comments: 1/2 pack per day Alcohol Use Standard Drinks/Week Comments Yes 0.8 (1 standard drink = 0.6 oz pure alco hol) rarely Sex Assigned at Date Recorded Not on file documented as of this encounter Progress Notes Meliza Tom RN - 09/21/2014 8:40 AM CDT Quick Note: See phone note 09/21/2014 Meliza Tom RN 09/21/2014, 8:40 AM Lisa Patrick - 09/20/2014 10:26 AM CDT Quick Note: Kidney function is stable, most recent creatinine was 2.03, kidneys functioning approximately at 28%. Phosphorus is high, restrict foods high in phosphorus. Start phosLo 1 tab BID with meals. Repeat BMP and phosphorus in 1 month PTH vitamin D, hgb are stable. Thanks Lisa Patrick, SHANK SORTER, REGIONAL LIAISON 09/20/2014, 10:26 AM documented in this encounter Plan of Treatment Not on filedocumented as of this encounter Procedures Procedure Name Priority Date/Time Associated Diagnosis Comme nts LIPID PANEL AND Routine 09/19/2014 7:33 Hypercholesterolemia w ith Results for this DIRECT LDL(IF AM CDT hyperglyceridemia procedure are in NEEDED) the results section. VITAMIN D Routine 09/19/2014 7:33 Polycystic kidney, Result s for this 25-HYDROXY, TOTAL AM CDT unspecified ty pe procedure are in Chronic kidney disease, the results stage IV (severe) section. INTACT PTH Routine 09/19/2014 7:33 Polycystic kidney, Result s for this AM CDT unspecified type procedure are in Chronic kidney disease, the results stage IV (severe) section. BASIC METABOLIC Routine 09/19/2014 7:33 Polycystic kidney, Res ults for this PANEL AM CDT unspecified type procedure are in Chronic kidney disease, the results stage IV (severe) section. HEMOGLOBIN, BLOOD Routine 09/19/2014 7:33 Polycystic kidney, R esults for this AM CDT unspecified type procedure are in Chronic kidney disease, the results stage IV (severe) section. TP/CREA RATIO, Routine 09/19/2014 7:33 Polycystic kidney, Resu lts for this URINE AM CDT unspecified type procedure are in Chronic kidney disease, the results stage IV (severe) section. ALT (SGPT) Routine 09/19/2014 7:33 Hypercholesterolemia with Results for this AM CDT hyperglyceridemia procedure are in the results section. AST Routine 09/19/2014 7:33 Hypercholesterolemia with Results for this AM CDT hyperglyceridemia procedure are in the results section. PHOSPHORUS Routine 09/19/2014 7:33 Polycystic kidney, Result s for this AM CDT unspecified type procedure are in Chronic kidney disease, the results stage IV (severe) section. documented in this encounter Results VITAMIN D 25-HYDROXY, TOTAL (V77.99) (09/19/2014 7:33 AM CDT) athologist Signature Vitamin 34.9 30.0 - [facility] D,25-OH, Tot 80.0 ng/mL LABORATORIES Comment: Deficiency: ??< 20 ng/mL Insufficiency: ??20-29 ng/mL Optimum Level: ??30-80 ng/mL Possible Toxicity: > 80 ng/mL Specimen Anatomical Collection Method Collection Time Receive d Time (Source) Location / / Volume Laterality 09/19/2014 7:33 AM 5 7:38 CDT AM CDT Narrative [facility] - 09/19/2014 12:46 PM CDT Performed at [facility] , [address] [place] [address] Lisa Patrick APRN, CNP LAB_1 Performing Organization Address [facility] Phon e Number [facility] [phone] (ABNORMAL) INTACT PTH (09/19/2014 7:33 AM CDT) athologist Signature Intact PTH 86.7 (H) 14.0 - [facility] 72.0 pg/mL LABORATORIES Specimen Anatomical Collection Method Collection Time Receive d Time (Source) Location / / Volume Laterality 09/19/2014 7:33 AM 5 7:38 CDT AM CDT Narrative [facility] - 09/19/2014 12:41 PM CDT Performed at [facility] , [address] [place] [address] Lisa Patrick APRN, CNP LAB_1 Performing Organization Address [facility] Phon e Number [facility] [phone] (ABNORMAL) TP/CREA RATIO, URINE (09/19/2014 7:33 AM CDT) [facility] gist Method Time Signature Total Protein, 9 mg/dl [facility] Urine, Random LABORATORIES Creatinine,Ur 35.2 mg/dl [facility] Random LAB[facility] TP/Creat 0.3 (H) <0.2 [facility] Ratio, Urine, LABORATORIES Random Specimen Anatomical Collection Method Collection Time Receive d Time (Source) Location / / Volume Laterality Urine specimen 09/19/2014 7:33 AM 015 7:38 (specimen) CDT AM CDT Narrative [facility] - 09/19/2014 2:04 PM C DT Performed at [facility], [address] [place] [address] ??[phone] Lisa Patrick APRN, CNP LAB_1 Performing Organization Address [facility] Phon e Number [facility] [phone] (ABNORMAL) PHOSPHORUS (09/19/2014 7:33 AM CDT) athologist Signature Phosphorus 5.0 (H) 2.5 - 4.5 [facility] mg/dl Specimen Anatomical Collection Method Collection Time Receive d Time (Source) Location / / Volume Laterality 09/19/2014 7:33 AM 5 7:37 CDT AM CDT Narrative [facility] - 09/19/2014 12:56 PM CDT Performed at [facility], [address] [place] [address] ??[id number] Lisa Patrick APRN, CNP LAB_1 Performing Organization Address [facility] Phon e Number [facility] [phone] HEMOGLOBIN, BLOOD (09/19/2014 7:33 AM CDT) athologist Signature Hemoglobin 12.0 12.0 - 16.0 [facility] g/dl Specimen Anatomical Collection Method Collection Time Receive d Time (Source) Location / / Volume Laterality 09/19/2014 7:33 AM 5 7:37 CDT AM CDT Narrative [facility] - 09/19/2014 4:31 PM C DT Performed at [facility], [address] [place] [phone] Lisa Patrick APRN, CNP LAB_1 Performing Organization Address [facility] Phon e Number [facility] [phone] (ABNORMAL) BASIC METABOLIC PANEL (09/19/2014 7:33 AM CDT) [facility] gist Method Time Signature Sodium 141 135 - 145 [facility] mmol/L LAB[facility] Potassium 4.3 3.5 - 5.3 [facility] mmol/L [facility] Chloride 105 95 - 106 [facility] mmol/L [facility] CO2 25 22 - 30 [facility] mmol/L [facility] Anion Gap 11 7 - 16 [facility] (calc.) mmol/L [facility] Glucose 86 70 - 180 [facility] mg/dl [facility] Calcium 8.9 8.4 - [facility] 10.2 LAB[facility]IES mg/dl BUN 27 (H) 7 - 20 [facility] mg/dl LAB[facility] Creatinine 2.03 (H) 0.52 - [facility] 1.04 LABORATORIES mg/dl GFR, Estimated 28 (L) >60 [facility] ml/min/1. LAB[facility]ATORIES 73m2 GFR, Est., If 32 (L) >60 [facility] Black ml/min/1. LABORATORIES 73m2 Specimen Anatomical Collection Method Collection Time Receive d Time (Source) Location / / Volume Laterality 09/19/2014 7:33 AM 5 7:37 CDT AM CDT Narrative [facility] - 09/19/2014 12:56 PM CDT Performed at [facility], [address] [place] [address] ??[phone] Lisa Patrick APRN, REGIONAL LIAISON LAB_1 Performing Organization Address [facility] Phon e Number [facility] [phone] ALT (SGPT) (09/19/2014 7:33 AM CDT) athologist Signature ALT (SGPT) 38 0 - 69 U/L [facility] Specimen Anatomical Collection Method Collection Time Receive d Time (Source) Location / / Volume Laterality 09/19/2014 7:33 AM 5 7:37 CDT AM CDT Narrative [facility] - 09/19/2014 1:07 PM C DT Performed at [facility], [address] [place] [address] ??[phone] Tiffany Gonzalez APRN, DNP LAB_1 Performing Organization Address [facility] Phon e Number [facility] [phone] AST (09/19/2014 7:33 AM CDT) athologist Signature AST (SGOT) 41 0 - 66 U/L [facility] Specimen Anatomical Collection Method Collection Time Receive d Time (Source) Location / / Volume Laterality 09/19/2014 7:33 AM 5 7:37 CDT AM CDT Narrative [facility] - 09/19/2014 1:07 PM C DT Performed at [facility], [address] [place] [address] ??[phone] Tiffany Gonzalez APRN, DNP LAB_1 Performing Organization Address [facility] Phon e Number [facility] [phone] LIPID PANEL AND DIRECT LDL(IF NEEDED) (09/19/2014 7:33 AM CDT) [facility] gist Method Time Signature Hours Fasting 10 hours [facility] Cholesterol 172 0 - 199 [facility] mg/dl [facility] Triglyceride 141 0 - 149 [facility] mg/dl [facility] HDL 42 >40 mg/dl [facility] LDL, Calc. 102 0 - 129 [facility] mg/dl [facility] Non HDL Chol, 130 mg/dl [facility] Calc [facility] Specimen Anatomical Collection Method Collection Time Receive d Time (Source) Location / / Volume Laterality 09/19/2014 7:33 AM 5 7:37 CDT AM CDT Narrative [facility] - 09/19/2014 1:07 PM C DT Performed at [facility], [address] [place] [address] ??[phone] Tiffany Gonzalez APRN, DNP LAB_1 Performing Organization Address [facility] Phon e Number [facility] [phone] documented in this encounter Visit Diagnoses Diagnosis Hypercholesterolemia with hyperglyceride marilee (C) Mixed hyperlipidemia Polycystic kidney, unspecified type Chronic kidney disease, stage IV (severe ) (HR) Chronic kidney disease, Stage IV (severe ) documented in this encounter Care Teams Animal Control Supervisor Relationship Specialty Start Date End Date Tiffany Gonzalez APRN, DNP PCP - General 01/16/00 02/03/16 [address] [place] [id number] documented as of this encounter
--- OUTSIDE RECORDS SUMMARY | 2021-12-28 14:11 | XMS_ITS | Encounter Summary ---
:1965 Author Organization [facility] Address [address] [place] [address] Care Team Providers Name Role Phone Haylee Alanis APRN, CNP Primary Care Provider [phone] Reason for Referral Procedure/Equipment (Routine) - Incomplete Specialty Diagnoses / Procedures Referred By Contact Refer red To Contact Diagnoses Abdominal pain, right upper quadrant Loss of appetite Early satiety Haylee Alanis APRN, Procedures CT Abd W/WO IV Cont MATTRESS PACKER [address] [place], [place] [address] Referral ID Status Reason Start Date Expiration Date Visits V isits Requested Authorized [id number] Incomplete 02/04/2016 08/02/2016 1 1 Reason for Visit Reason Comments ABDOMINAL PAIN X 4 days, saw kidney special ist yesterday and suggested it may be her liver Encounter Details Date Type Department Care Team Description 02/04/[address] [facility] Haylee Alanis Ab dominal pain, right upper quadrant (Primary Dx); Practice [facility] Loss of appetite; [address] [facility] [address] Early satiety; [place], [place] Encounte r for immunization [address] [phone] Social History Tobacco Use Types Packs/Day Years Used Date Smoking Tobacco: Every Day Cigarettes 0.5 L ast attempted to quit: 02/23/2011 Smokeless Tobacco: Never Comments: 1/2 pack per day Alcohol Use Standard Drinks/Week Comments Yes 0.8 (1 standard drink = 0.6 oz pure alco hol) rarely Sex Assigned at Date Recorded Not on file documented as of this encounter Last Filed Vital Signs Vital Sign Reading Time Taken Comments Blood Pressure 127/86 02/04/2016 1:35 PM CDT Pulse 59 02/04/2016 1:35 PM CDT Temperature - - Respiratory Rate - - Oxygen Saturation - - Inhaled Oxygen Concentration - - Weight 106.2 kg (234 lb 3.2 oz) 02/04/2016 1:35 PM CDT Height 169.5 cm (5' 6.75) 02/04/2016 1:35 PM CDT Body Mass Index 36.96 02/04/2016 1:35 PM CDT documented in this encounter Patient Instructions Patient InstructionsHaylee Alanis APRN, MATTRESS PACKER - 02/04/2016 1:44 PM CDT Images from the original note were not included. Lab tests today CT scan of abdomen to look at abdomen, liver and other organs. Abdominal Pain: Care Instructions Your Care Instructions Abdominal pain has many possible causes. Some aren't serious and get better on their own in a few days. Others need more testing and treatment. If your pain continues or gets worse, you need to be rechecked and may need more tests to find out what is wrong. You may need surgery to correct the problem. Don't ignore new symptoms, such as fever, nausea and vomiting, urination problems, pain that gets worse, and dizziness. These may be signs of a more serious problem. Your doctor may have recommended a follow-up visit in the next 8 to 12 hours. If you are not gettingbetter, you may need more tests or treatment. The doctor has checked you carefully, but problems can develop later. If you notice any problems or new symptoms, get medical treatment right away. Follow-up care is a malhotra part of your treatment and safety. Be sure to make and go to all appointments, and call your doctor if you are having problems. It's also a good idea to know your test results and keep a list of the medicines you take. How can you care for yourself at home? ?? Rest until you feel better. ?? To prevent dehydration, drink plenty of fluids, enough so that your urine is light yellow or clear like water. Choose water and other caffeine-free clear liquids until you feel better. If you have kidney, heart, or liver disease and have to limit fluids, talk with your doctor before you increase the amount of fluids you drink. ?? If your stomach is upset, eat mild foods, such as rice, dry toast or crackers, bananas, and applesauce. Try eating several small meals instead of two or three large ones. ?? Wait until 48 hours after all symptoms have gone away before you have spicy foods, alcohol, and drinks that contain caffeine. ?? Do not eat foods that are high in fat. ?? Avoid anti-inflammatory medicines such as aspirin, ibuprofen (Advil, Motrin), and naproxen (Aleve). These can cause stomach upset. Talk to your doctor if you take daily aspirin for another health problem. When should you call for help? Call 911 anytime you think you may need emergency care. For example, call if: ?? You passed out (lost consciousness). ?? You pass maroon or very bloody stools. ?? You vomit blood or what looks like coffee grounds. ?? You have new, severe belly pain. Call your doctor now or seek immediate medical care if: ?? Your pain gets worse, especially if it becomes focused in one area of your belly. ?? You have a new or higher fever. ?? Your stools are black and look like tar, or they have streaks of blood. ?? You have unexpected vaginal bleeding. ?? You have symptoms of a urinary tract infection. These may include: ?? Pain when you urinate. ?? Urinating more often than usual. ?? Blood in your urine. ?? You are dizzy or lightheaded, or you feel like you may faint. Watch closely for changes in your health, and be sure to contact your doctor if: ?? You are not getting better after 1 day (24 hours). Where can you learn more? 1. Go to [employer] or [employer]. 2. Enter E907 in the search box. Current as of: September 07, 2014 Content Version: 109 ?? [id number] [employer]. documented in this encounter Progress Notes Haylee Alanis APRN, CNP - 02/04/2016 2:13 PM CDT SUBJECTIVE: Stephanie Norman is a 50 y.o. old female who presents to clinic with concerns about RUQ abdominal pains. This started 3 days ago, it is constant, it was worse yesterday. In general she has a constant 2/10 pain, it increased quite a bit when she walking or anything that puts pressure on her abdomen like bending over, leaning forward or trying to lay on that side. She has had similar pain in the past buther back/flank area with kidney cysts; she did discuss this with [facility] yesterday[facility] he is suspicious it is actually her liver as she also has liver cysts. No nausea, vomiting, or diarrhea; no fevers. Pt had her gallbladder out in 2014; no heart burn or GERD symptoms. She does noteshe has no appetite and feels full all the time. Last CT of abd was 2.5 years ago. 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 Complete Review of Systems is negative, unless noted in HPI OBJECTIVE: General: BP 127/86 mmHg Pulse 59 Ht 5' 6.75 (1.695 m) Wt 234 lb 3.2 oz (106.232 kg) BMI 36.98 kg/m2 She is well developed, well nourished, well groomed, without obvious deformities. Psychiatric: she is oriented to time, place, and person; recent and remote memory intact; mood and affect are appropriate. Neurologic: Cranial nerves II-XII grossly intact; Sensation intact to light touch Abdomen reveals mild tenderness in the epigastric and RUQ, without rebound, guarding, mass or organomegaly. Abdomen is soft and bowel sounds are normal. ASSESSMENT: ICD-10-CM 1. Abdominal pain, right upper quadrant R10.11 Liver Panel(Hepatic Function Panel) CT Abd W/WO IV Cont Creatinine / GFR Complete Blood Count-No Diff Acute Hepatitis Profile 2. Loss of appetite R63.0 Liver Panel(Hepatic Function Panel) CT Abd W/WO IV Cont Creatinine / GFR Complete Blood Count-No Diff 3. Early satiety R68.81 Liver Panel(Hepatic Function Panel) CT Abd W/WO IV Cont Creatinine / GFR Complete Blood Count-No Diff 4. Encounter for immunization Z23 Influenza (Fluarix 0.5, 3+ Yrs) PPSV23 (PNEUMOVAX) PLAN: Labs and CT of abdomen. Will like have pt consult and establish care with hepatology, will also due hepatitis testing today it does not appear she has ever had this. Pt verbalized understanding of and agreement with this plan. Haylee Alanis APRN, MATTRESS PACKER 02/04/2016 2:16 PM documented in this encounter Plan of Treatment Not on filedocumented as of this encounter Procedures Procedure Name Priority Date/Time Associated Diagnosis Comme nts CT ABD W/WO IV CONT Routine 02/05/2016 5:02 PM Abdominal pain, Results for this CDT right upper quad rant procedure are in Loss of appetite the results Early satiety section. documented in this encounter Results CT Abd W/WO IV Cont (02/05/2016 5:02 PM CDT) Anatomical Region Laterality Modality Abdomen Other Specimen (Source) Anatomical Collection Method Collection Time Re ceived Time Location / / Volume Laterality 02/05/2016 5:02 PM CDT Narrative 02/05/2016 5:15 PM CDT EXAM DATE: ? 02/05/[address] [facility] CT ABDOMEN, PELVIS W/O CONTRAST 02/05/2016 5:15 PM INDICATION: Right upper quadrant pain. O ngoing for 5 days. History cystic liver. TECHNIQUE: Routine CT abdomen and pelvis without oral or IV contrast. Multiplanar reformation images (MPR). Do se reduction techniques were used. COMPARISON: CT abdomen pelvis 01/22/2009 . FINDINGS: LUNG BASES: Tiny right pleural effusion. Minimal bibasilar atelectasis or scarring. ABDOMEN: No acute findings. No free air free fluid. No evidence of bowel obstruction. No urinary stones. No focal fluid collection or abscess. Innumerable cysts throughout the liver. Innumerable cysts throughout both kidneys with renal enlargement. Some cys ts are hyperdense suggesting old hemorrhage and/or proteinaceous contents , overall similar to prior. Findings consistent with autosomal domin ant polycystic disease. Interval cholecystectomy. Adrenal glands, spleen and pancreas are normal on this noncontrast exam. No adenopathy. Normal- appearing of the small bowel including the terminal ileum. PELVIS: Trace free fluid in the dependen t pelvis, likely physiologic. Mild prominence of the uterine fundus, possib ly from underlying fibroid. No adenopathy. Appendix is seen. No evidenc e of appendicitis. MUSCULOSKELETAL: Negative. CONCLUSION: 1. No acute findings in the abdomen or p ines. 2. Stable findings of autosomal dominant polycystic disease involving the kidneys and liver. 3. Tiny right pleural effusion. ?? Procedure Note Michael Cloud MD - 02/06/2016Format ting of this note might be different from the original. EXAM DATE: 02/05/2016 [facility] CT ABDOMEN, PELVIS W/O CONTRAST 02/05/2016 5:15 PM INDICATION: Right upper quadrant pain. O ngoing for 5 days. History cystic liver. TECHNIQUE: Routine CT abdomen and pelvis without oral or IV contrast. Multiplanar reformation images (MPR). Do se reduction techniques were used. COMPARISON: CT abdomen pelvis 01/22/2009 . FINDINGS: LUNG BASES: Tiny right pleural effusion. Minimal bibasilar atelectasis or scarring. ABDOMEN: No acute findings. No free air free fluid. No evidence of bowel obstruction. No urinary stones. No focal fluid collection or abscess. Innumerable cysts throughout the liver. Innumerable cysts throughout both kidneys with renal enlargement. Some cys ts are hyperdense suggesting old hemorrhage and/or proteinaceous contents , overall similar to prior. Findings consistent with autosomal domin ant polycystic disease. Interval cholecystectomy. Adrenal glands, spleen and pancreas are normal on this noncontrast exam. No adenopathy. Normal- appearing of the small bowel including the terminal ileum. PELVIS: Trace free fluid in the dependen t pelvis, likely physiologic. Mild prominence of the uterine fundus, possib ly from underlying fibroid. No adenopathy. Appendix is seen. No evidenc e of appendicitis. MUSCULOSKELETAL: Negative. CONCLUSION: 1. No acute findings in the abdomen or p ines. 2. Stable findings of autosomal dominant polycystic disease involving the kidneys and liver. 3. Tiny right pleural effusion. Haylee Alanis CRAB BACKER, MATTRESS PACKER RAD CT Acute Hepatitis Profile (02/04/2016 1:58 PM CDT) Patholo gist Method Time Signature HBsAg Negative NEGNR [facility] (Non LABORATORIES Reactive) Hepatitis A Negative NEGNR [facility] Ab, IGM (Non LABORATORIES Reactive) Comment: IgM anti-HAV not detected. Does not excl ude the possibility of exposure to or infection with HAV. Levels of IgM anti-HAV may be below the cut-off in early infection. Specimen Anatomical Collection Method Collection Time Receive d Time (Source) Location / / Volume Laterality 02/04/2016 1:58 PM 6 1:59 CDT PM CDT Narrative [facility] - 02/04/2016 6:50 PM C DT Performed at [facility], [address] [place] [id number] Haylee Alanis APRN, CNP LAB_1 Performing Organization Address [facility] Phon e Number [facility] [phone] (ABNORMAL) Complete Blood Count-No Diff (02/04/2016 1:58 PM CDT) P athologist Signature WBC 5.7 4.0 - 11.0 [facility] k/ul LAB[facility]ATOR[facility] RBC 3.97 (L) 4.0 - 5.2 [facility] M/ul [facility] Hemoglobin 12.2 12.0 - [facility] 16.0 g/dl LABORATORIES HCT 37.4 36.0 - [facility] 46.0 % LAB[facility]ATORIES MCV 94.2 80 - 100 [facility] fl [facility] MCH 30.7 26 - 34 pg [facility] MCHC 32.6 32 - 36 [facility] g/dl [facility] RDW 12.9 11.5 - [facility] 14.5 % [facility] Platelets 256 150 - 450 [facility] k/ul [facility] Specimen Anatomical Collection Method Collection Time Receive d Time (Source) Location / / Volume Laterality 02/04/2016 1:58 PM 6 1:59 CDT PM CDT Narrative [facility] - 02/04/2016 4:10 PM C DT Performed at [facility], [address] [place] [address] ??[id number] Haylee Alanis APRN, CNP LAB_1 Performing Organization Address [facility] Phon e Number [facility] [phone] (ABNORMAL) Creatinine / GFR (02/04/2016 1:58 PM CDT) [facility] Method Time Signature Creatinine 2.22 (H) 0.55 - [facility] 1.02 [facility]ATORIES mg/dl GFR, Estimated 25 (L) >60 [facility] ml/min/1. LAB[facility]ATORIES 73m2 GFR, Est., If 29 (L) >60 [facility] Black ml/min/1. LABORATORIES 73m2 Specimen Anatomical Collection Method Collection Time Receive d Time (Source) Location / / Volume Laterality 02/04/2016 1:58 PM 6 1:59 CDT PM CDT Narrative [facility] - 02/04/2016 6:31 PM C DT Performed at [facility], [address] [place] [address] ??[id number] Haylee Alanis APRN, CNP LAB_1 Performing Organization Address [facility] Phon e Number [facility] [phone] (ABNORMAL) Liver Panel(Hepatic Function Panel) (02/04/2016 1:58 PM CDT) [facility] Method Time Signature Alkaline 46 40 - 150 [facility] Phosphatase U/L LABORATORIES Bilirubin, Total 0.6 0.2 - 1.2 [facility] mg/dl LAB[facility]IES Bilirubin, 0.2 0.0 - 0.5 [facility] Direct mg/dl LABORATORIES ALT (SGPT) 24 0 - 55 U/L [facility] AST (SGOT) 28 10 - 40 [facility] U/L [facility] Comment: PLEASE NOTE CHANGE IN REFERENCE RANGE Protein, Total 7.7 6.4 - 8.3 g/dl [facility] Albumin 3.8 3.5 - 5.0 g/dl [facility] ES A/G Ratio, calc. 1.0 (L) >1.0 [facility] ISAI Specimen Anatomical Collection Method Collection Time Receive d Time (Source) Location / / Volume Laterality 02/04/2016 1:58 PM 6 1:59 CDT PM CDT Narrative [facility] - 02/04/2016 6:31 PM C DT Performed at [facility], [address] [place] [address] ??[phone] Haylee Alanis APRN, CNP LAB_1 Performing Organization Address City/State/ZIP Code Phon e Number [facility] [phone] documented in this encounter Visit Diagnoses Diagnosis Abdominal pain, right upper quadrant - P rimary Loss of appetite Anorexia Early satiety Encounter for immunization Need for other specified prophylactic va ccination against single bacterial disease Abdominal pain, right upper quadrant Loss of appetite Anorexia Early satiety documented in this encounter Care Teams Home Health Care Coordinator Relationship Specialty Start Date End Date Haylee Alanis APRN, MATTRESS PACKER PCP - General Nurse Practitioner 02/04/[address] [place] [id number] documented as of this encounter
--- OUTSIDE RECORDS SUMMARY | 2021-12-28 14:11 | XMS_ITS | Encounter Summary ---
:1965 Author Organization [facility] Address [address] [place] [address] Care Team Providers Name Role Phone Tiffany Gonzalez ELECTRIC MOTOR REPAIRMAN, DNP Primary Care Provider [phone] Reason for Visit Reason Comments Return Call Encounter Details Date Type Department Care Team Description 06/19/2014 Telephone [facility] Nephrology Tami Hoyt RN Return Call [address] [facility] [address] [place] [address] [place], [place] [phone] (Wo rk) Social History Tobacco Use Types [...] encounter Nursing Notes Tami Hoyt RN - 06/20/2014 1:14 PM CST Notes from the [facility] are received. Shows documentation of Lisinopril bid as per Dr. Piter Sepulveda Documentation sent for scanning into chart. Tami Hoyt RN 06/20/2014, 1:15 PM G ADULT LIBRARIAN Tami Hoyt, ANGELIKA - 06/20/2014 10:39 AM CST Spoke to David at the [facility] who researched the records for Lisinopril dosing. David will fax the last three Study Notes that documents Lisinopril at bid dosing Tami Hoyt RN 06/20/2014, 10:40 AM G ADULT LIBRARIAN Tami Hoyt RN - 06/20/2014 10:00 AM CST Spoke to Alon at the [facility] who will have a clinic staff member research the records for when the Lisinopril was increased during the study the patient is participating in at [facility] Tami Hoyt RN 06/20/2014, 10:01 AM G ADULT LIBRARIAN Rob Cerrato - 06/19/2014 3:46 PM CST Alon from [facility] is returning call regarding pt. Rob Cerrato G ADULT LIBRARIAN documented in this encounter Plan of Treatment Not on filedocumented as of this encounter Visit Diagnoses Not on filedocumented in this encounter Care Teams Loss Prevention Lead Relationship Specialty Start Date End Date Tiffany Gonzalez APRN, DNP PCP - General 01/16/00 02/03/16 [place] [place] [id number] documented as of this encounter
--- OUTSIDE RECORDS SUMMARY | 2021-12-28 14:11 | XMS_ITS | Encounter Summary ---
:1965 Author Organization [facility] Address [address] [place] [address] Care Team Providers Name Role Phone Tiffany Gonzalez APRN, DNP Primary Care Provider [phone] Reason for Visit Reason Comments Refill Encounter Details Date Type Department Care Team Description 09/03/2014 Refill [facility] Nephrology Lisa Patrick, ENGINEERING OFFICER, BONDED STRAND OPERATOR Refill 205 [facility] [address] [place] [address] [place] [address] [phone] (Wo rk) Social History Tobacco Use Types [...] Nursing Notes Jen Hunter RN - 09/03/2014 3:34 PM CDT This medication is managed by patient's PCP, Dr. Gonzalez. Routed to her care team to review and address. Jen Hunter RN 09/03/2014, 3:35 PM Interface, Out [employer] Marketing Prov Query - 09/03/2014 9:29 AM CDT citalopram (AKA CELEXA) 40 MG tablet - VIOLATION #1: Medication is not assigned to a protocol. - VIOLATION #2: Medications in this protocol cannot be delegated. - PROTOCOL: None Exists - LAST QUALIFYING VISIT IN NEPHROLOGY: 04/04/2014 - NEXT SCHEDULED VISIT IN NEPHROLOGY: 09/19/2014 - LAST REFILLED ON: 06/24/2013, QTY: 90, Refills: 3, Sig: take 1 tab by mouth daily. (unchanged) Powered by [employer], Reference: [id number], 09/03/2014 9:29:44 AM CDT, Pool: Celina ([id number]) documented in this encounter Plan of Treatment Not on filedocumented as of this encounter Visit Diagnoses Not on filedocumented in this encounter Care Teams Vice President Of Talent Management Relationship Specialty Start Date End Date Tiffany Gonzalez, ENGINEERING OFFICER, DNP PCP - General 01/16/00 02/03/16 [address] [place] [id number] documented as of this encounter
--- OUTSIDE RECORDS SUMMARY | 2021-12-28 14:11 | XMS_ITS | Encounter Summary ---
:1965 Author Organization [email or web address] [employer] Address [address] [place] [address] Care Team Providers Name Role Phone Tiffany Gonzalez APRN, DNP Primary Care Provider Reason for Visit Reason Onset Date Comments Disease Registry 06/29/2014 Asthma Encounter Details Date Type Department Care Team Description 06/29/2014 Telephone [facility] Disease Registry Practice MPALOMO, GAIL (Asthma) [address] [place] [id number] [place] [id number] (Wo rk) Social History Tobacco Use Types Packs/Day Years Used Date Smoking Tobacco: Every Day Cigarettes 0.5 L ast attempted to quit: 02/23/2011 Smokeless Tobacco: Never Comments: 1/2 pack per day Alcohol Use Standard Drinks/Week Comments Yes 0.8 (1 standard drink = 0.6 oz pure alco hol) rarely Sex Assigned at Date Recorded Not on file documented as of this encounter Nursing Notes Becky Cook CMA - 06/29/2014 9:30 AM CDT Patient at goal ACT=24 on 08/28/13 . Please complete AMP letter. Becky Cook CMA documented in this encounter Plan of Treatment Not on filedocumented as of this encounter Visit Diagnoses Diagnosis Mild persistent asthma, uncomplicated (H RC) - Primary Unspecified asthma documented in this encounter Care Teams Supervisor Hanging And Trimming Relationship Specialty Start Date End Date Tiffany Gonzalez APRN, DNP PCP - General 01/16/00 02/03/16 [address] [place] [id number] documented as of this encounter
--- OUTSIDE RECORDS SUMMARY | 2021-12-28 14:11 | XMS_ITS | Encounter Summary ---
:1965 Author Organization [facility] Address [address] [place] [address] Care Team Providers Name Role Phone Haylee Alanis APRN, CNP Primary Care Provider [phone] Reason for Visit Reason Comments Dental Hygiene Dental Exam coming in to get on the [facility] list (kidney) Encounter Details Date Type Department Care Team Description 01/08/2021 Office Visit [facility] Rosalie Little De ntal Hygiene; Dental Dentistry [facility] [place]am [place] [phone] [facility] [place] [address] [facility] [place] on the transplant list [place], [place] (kidney )) [phone] [id number] Social History Tobacco Use Types Packs/Day Years Used Date Smoking Tobacco: Former Cigarettes 0.5 Quit : 12/20/2010 Smokeless Tobacco: Never Comments: 1/2 pack per day Alcohol Use Standard Drinks/Week Comments Yes 0.8 (1 standard drink = 0.6 oz pure alco hol) rarely Sex Assigned at Date Recorded Not on file documented as of this encounter Last Filed Vital Signs Vital Sign Reading Time Taken Comments Blood Pressure - - Pulse 69 01/08/2021 3:52 PM CDT Temperature - - Respiratory Rate - - Oxygen Saturation - - Inhaled Oxygen Concentration - - Weight - - Height - - Body Mass Index - - documented in this encounter Patient Instructions Patient InstructionsRosalie Little, [facility] - 01/08/2021 3:20 PM CDT Your next hygiene recall is due 07/07/2021 YOUR PERSONAL DENTAL RISK REPORT CARIES (TOOTH DECAY) PERIODONTAL (GUM) DISEASE ORAL CANCER LOW mod high low MOD high low ELEVATED ^ ^ ^ Risk Level: LOW How to Maintain Your Low Risk: Instruction from dental professional on brushing, flossing, and use of oral hygiene products. Congratulations on your low risk for tooth decay. Making healthy life style choices including brushing twice a day; daily flossing; and healthy dietary choices should help you maintain this low risk. Risk Level: MODERATE Risk Factors: Have had a diagnosis of gum disease either with or without past treatment. Missing scheduled dental appointments. Visible plaque. How to Reduce Your Risk: Return visit with the dental hygienist at 3 month intervals to assess periodontal condition and provide necessary treatment. Oral hygiene instruction by the dentist, dental hygienist, or dental workforce development assistant. Risk Level: ELEVATED Risk Factors: Incidence of oral cancer increases with age. How to Reduce Your Risk: Regular dental visits to assess soft tissue. Stephanie, we look forward to seeing you at your next visit! Thank you for choosing [facility]. documented in this encounter Progress Notes Valerie York DDS - 01/08/2021 3:20 PM CDT NEW PATIENT EXAM NOTE REASON FOR VISIT/CHIEF COMPLAINT: Stephanie is a 55 y.o. female who presents for Dental Hygiene and Dental Exam (coming in to get on the transplant list (kidney)) CHART REVIEW: Reviewed with patient: Medical history, Dental history, Problem list, Periodontal charting, Radiographs, Social history and Surgical history SOFT TISSUE, HEAD AND NECK EXAMINATION: Lips: Normal Tongue: Normal Palate: Normal Throat: Normal Floor of the mouth: Normal Mucosa: Normal Head and neck: Normal TMD EVALUATION: Palpation Pain: None Joint Sounds: None Pain with Range of Motion: None OCCLUSAL EXAMINATION: Angle relationship: Right molar: Class I Right cuspid: Class I Left molar: Class I Left cuspid:Class I Maxillary midline: WNL Mandibular midline: WNL Overbite: 2 mm Overjet: 6 mm Crossbite: None Space loss: None Crowding: Moderate Occlusion: Right molars, Right premolars, Left premolars and Left molars Attrition: Absent Erosion: Absent Overall occlusal relationship: Stable COSMETIC CONCERNS: Patient's Perception: Acceptable Dentist's Perception: Acceptable TREATMENT REVIEW AND FOLLOW-UP: Discussed the Dental findings, Prognosis and Treatment options with the patient. All questions answered and informed consent was obtained. Recommended Recall Interval: Examination: 6 months : Recall prophy: 6 months Planned Recall Interval: Examination: 6 months : Recall prophy: 6 months Next Planned Visit: --End of Note-- Valerie York DDS 01/08/2021, 4:11 PM Rosalie Little RDH - 01/08/2021 3:20 PM CDT HYGIENE ASSESSMENT NOTE COLLABORATIVE AGREEMENT: The patient consents to have charting, radiographs and assessment by the dental hygienist performed with the understanding that this care is not a substitute for an examinationby a dentist. These activities were performed under a collaborating agreement with Bryan Arevalo DDS (License #: [id number]) PROCEDURAL PAUSE: Patient identity verified: Yes Treatment plan/site verified with the patient: Yes Instruments/equipment verified: Yes Any medication/allergy contraindications: No PRESENTATION: Oral Hygiene: Fair Plaque: Generalized, moderate supra-gingival Calculus: Localized, heavy sub-gingival and interproximal and Generalized, moderate supra-gingival ,mandibular anterior and posterior buccal Stain: Localized, moderate other Bleeding: Localized moderate Gingival tissue: Inflamed Mucogingival concerns: Absent ACTIVITIES: Assessment Stressed daily homecare Routine cleanings 6mrc Quit smoking 12/20/2020 coming back for cleaning PATIENT EDUCATION: Caries risk, Periodontal risk, Oral cancer risk, OHI, Oral care adjuncts and Fluoride rinse NEXT PLANNED HYGIENE VISIT: Hygiene Prophy no exam Rosalie Little RDH 01/08/2021, 4:19 PM --End of Note-- documented in this encounter Plan of Treatment Not on filedocumented as of this encounter Procedures Procedure Name Priority Date/Time Associated Diagnosis Comme nts FILM-PANORAMIC Routine 01/08/2021 3:20 PM Localized gingival CDT recession Localized chronic slight periodont itis Localized gingivitis [id number] Routine 01/08/2021 3:20 PM Localized gingiv al CDT recession Localized chronic slight periodont itis Localized gingivitis COMPREHENSIVE ORAL Routine 01/08/2021 3:20 PM Localized gingiv al EVALUATION CDT recession Localized chronic slight periodont itis Localized gingivitis 2 O EXISTING AMALGAM Routine 01/08/2021 12:00 AM FILLING CDT 3 LO EXISTING AMALGAM Routine 01/08/2021 12:00 AM FILLING CDT 3 O EXISTING AMALGAM Routine 01/08/2021 12:00 AM FILLING CDT 30 B EXISTING AMALGAM Routine 01/08/2021 12:00 AM FILLING CDT 30 O EXISTING AMALGAM Routine 01/08/2021 12:00 AM FILLING CDT 31 B EXISTING AMALGAM Routine 01/08/2021 12:00 AM FILLING CDT 31 B EXISTING AMALGAM Routine 01/08/2021 12:00 AM FILLING CDT 31 O EXISTING AMALGAM Routine 01/08/2021 12:00 AM FILLING CDT 18 B EXISTING AMALGAM Routine 01/08/2021 12:00 AM FILLING CDT 18 O EXISTING AMALGAM Routine 01/08/2021 12:00 AM FILLING CDT 19 B EXISTING AMALGAM Routine 01/08/2021 12:00 AM FILLING CDT 19 B EXISTING AMALGAM Routine 01/08/2021 12:00 AM FILLING CDT 19 O EXISTING AMALGAM Routine 01/08/2021 12:00 AM FILLING CDT 15 O EXISTING AMALGAM Routine 01/08/2021 12:00 AM FILLING CDT 14 LO EXISTING AMALGAM Routine 01/08/2021 12:00 AM FILLING CDT documented in this encounter Visit Diagnoses Diagnosis Localized gingival recession - Primary Gingival recession, localized Localized chronic slight periodontitis Localized gingivitis documented in this encounter Care Teams Sales Representative Sales Manager Relationship Specialty Start Date End Date Haylee Alanis, DORMITORY SUPERVISOR, CHIEF RECORDIST PCP - General Nurse Practitioner 02/04/[address] [place] [address] documented as of this encounter
--- OUTSIDE RECORDS SUMMARY | 2021-12-28 14:11 | XMS_ITS | Encounter Summary ---
:1965 Author Organization [facility] Address [address] [place] [address] Care Team Providers Name Role Phone Tiffany Gonzalez APRN, DNP Primary Care Provider Reason for Visit Reason Comments Revisit Encounter Details Date Type Department Care Team Description 09/19/2014 Office Visit [facility] Nephrology Lisa Patrick, CKD (chronic kidney disease) stage 3, GFR 30-59 ml/min (Primary Dx); [address] [facility] SENIOR CATEGORY MANAGER, HEEL NAILING MACHINE OPERATOR Polycystic kidney, unspecified type; [place], [place] [address] [facility] HYPERTENSION NOS; [address] [facility] Secondary hyperparathyroidism (of renal origin) [phone] [place], [place] [id number] Social History Tobacco Use Types Packs/Day Years [...] Sign Reading Time Taken Comments Blood Pressure 102/64 09/19/2014 8:23 AM CDT Pulse 61 09/19/2014 8:23 AM CDT Temperature - - Respiratory Rate - - Oxygen Saturation - - Inhaled Oxygen Concentration - - Weight - - Height - - Body Mass Index - - documented in this encounter Patient Instructions Patient InstructionsLisa Patrick - 09/19/2014 8:39 AM CDT 1) I will call you with the results of your blood tests 2) continue to avoid all NSAIDs 3) Continue to restrict dietary sodium 4) monitor your blood pressure at home twice a day for the next week. Goal is less than 140/90, callme if your readings are above goal 5) return to clinic to see Dr. Martin in 3-4 months, return to clinic to see me in 6-9 months Thanks Lisa Patrick APRN, HEEL NAILING MACHINE OPERATOR 09/19/2014, 8:41 AM documented in this encounter Progress Notes Lisa Patrick - 09/19/2014 8:43 AM CDT Nephrology Office Follow up note Patient Name: Stephanie Norman. . : 1965. 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 - patient part of a 7 year study at the [facility]; tabatha study, followed by Dr. Sepulveda - has had problems with cystic bleeding in the past 2) TREMAINE, 3) HTN 4) tobacco use 5) hyperlipidemia Interval history: Cholecystectomy Patient overall has been feeling well since the last visit. Has continued to work with the [facility] in astudy involving tolvaptan. Denies N/V/D, SOB, fever/chills, CP/palp, PEREZ or visual disturbances, abdominal discomfort, dysuria/hematuria/decrease in UO, black or tarry stools, edema or increase in edema, myoclonic jerking, pruritus, metallic taste or hiccups. appetite and energy are at baseline. Patient Active Problem List Diagnosis ??? VARICELLA UNCOMPLICATED ??? REFLUX ESOPHAGITIS ??? POLYCYSTIC KIDNEY, UNSPEC ??? HYPERTENSION NOS ??? ALLERGIC RHINITIS NOS ??? Hypercholesterolemia with Hyperglyceridemia ??? PMDD (Premenstrual Dysphoric Disorder) ??? Obstructive sleep apnea (adult) (pediatric) ??? Mild persistent asthma ??? Family history of breast cancer in first degree relative ??? Autosomal dominant polycystic kidney disease ??? Chronic kidney disease, stage IV (severe) Past Medical History Diagnosis Date ??? HYPERTENSION NOS 06/01/2003 ??? VARICELLA UNCOMPLICATED ??? Reflux esophagitis ??? POLYCYSTIC KIDNEY, UNSPEC ??? ALLERGIC RHINITIS NOS ??? ASTHMA, UNSPECIFIED ??? Hypercholesterolemia with hyperglyceridemia ??? Tobacco use disorder ??? PMDD (premenstrual dysphoric disorder) on Celexa ??? ENDOMETRIAL POLYP ??? Migraine without aura, without mention of intractable migraine without mention of status migrainosus onset in childhood ??? Snoring .prob Past Surgical History Procedure Laterality Date ? ? Hysteroscpy surg; w/bx &/ polypect 03/31/04 ??? Appendectomy 04-07-2010 MEDICATIONS Current Outpatient Prescriptions Medication Sig ??? acetaminophen (TYLENOL EXTRA STRENGTH) 500 MG tablet Take 500-1,000 mg by mouth every 4 hours asneeded. ??? ALBUterol 2.5 mg/3 mL, 0.083%, nebulizer solution Inhale 3 mL by mouth 4 times a day as needed for Wheezing or Shortness of Breath. ??? qjhiwav-pobsayqkavacc-vfbgnbcd (EXCEDRIN MIGRAINE) 250-250-65 MG tablet Take 1 Tab by mouth every 6 hours as needed. ??? beclomethasone (QVAR) 80 MCG/ACT inhaler Inhale 1 Puff by mouth two times a day. Rinse mouth after use ??? calcitriol (AKA ROCALTROL) 0.25 MCG capsule Take 1 Cap by mouth three times a week. ??? carvedilol (AKA COREG) 12.5 MG tablet Take 2 Tabs by mouth two times a day. ??? cholecalciferol (AKA VITAMIN D3) 1000 UNITS capsule Take 1 Cap by mouth daily. ??? citalopram (AKA CELEXA) 40 MG tablet Take 1 Tab by mouth daily. ??? ferrous gluconate (AKA FERGON) 324 (38 FE) MG tablet Take 1 Tab by mouth daily with breakfast. ??? lisinopril (AKA ZESTRIL) 20 MG tablet Take 1 Tab by mouth two times a day. ??? loratadine (KLS ALLERCLEAR) 10 MG tablet Take 10 mg by mouth daily at bedtime. ??? omeprazole (PRILOSEC) 20 MG capsule Take 1 Cap by mouth daily. Take 1 hour before a meal. ??? simvastatin (AKA ZOCOR) 40 MG tablet Take 0.5 Tabs by mouth daily at bedtime. ??? traZODone (AKA DESYREL) 50 MG tablet Take 1 Tab by mouth at bedtime as needed for Sleep. ??? VITAMIN B COMPLEX OR 1 daily ??? VITAMIN C 500 MG OR TABS 2 tablets daily in cold season ALLERGIES Allergies Allergen Reactions ??? Amoxicillin ??? Neomycin topical sensitization ??? Penicillins History Social History ??? Marital Status: Significant Other/Partner Spouse Name: Shreyas Number of Children: 6 ??? 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 Smoking status: Current Every Day Smoker -- 0.50 packs/day Types: Cigarettes Last Attempt to Quit: 02/23/2011 ??? Smokeless tobacco: Never Used Comment: 1/2 pack per day ??? Alcohol Use: 0.5 oz/week 1 Cans of beer per week Comment: rarely ??? Drug Use: No ??? Sexual Activity: Partners: Female Control/ Protection: None Comment: same partner for past 7 years Other Topics Concern ??? Service No ??? Blood Transfusions No ??? Caffeine Concern No ??? Occupational Exposure No ??? Hobby Hazards No ??? Sleep Concern Yes CPAP ??? Stress Concern No ??? Weight Concern Yes ??? Special Diet Yes low Na+ and low K+ diet ??? Back Care No ??? Exercise Yes ??? Bike Helmet No ??? Seat Belt No ??? Self-Exams No Social History Narrative Lives in house with partner Shreyas -one biological daughter and five adopted children 06/24/2013 Engaged to Shreyas family history Review of Systems Complete Review of Systems is negative, unless noted in HPI OBJECTIVE: BP 102/64 Pulse 61 HEENT: Normocephalic, atraumatic. . Neck: No masses,. No jugular venous distention. Chest/Lungs: Clear to auscultation. No wheezing or rales.. Heart: Regular rate and rhythm.,No murmurs, clicks, gallops or rubs.. Abdomen: Soft, without tenderness, guarding, mass, rebound or organomegaly.. Back: No deformity, no spinal, muscular or costovertebral angle tenderness. Extremities: No cyanosis, clubbing or edema. No inflammation or deformities of joints.. Neurological: Alert and oriented to person, place and time.. Skin: Normal turgor, no rashes, discoloration or ulcerations. Wt Readings from Last 3 Encounters: 04/04/14 237 lb (107.502 kg) 01/18/14 235 lb 12.8 oz (106.958 kg) 01/02/14 232 lb (105.235 kg) Last Chem10 results: Lab Results Component Value Date/Time SODIUM 143 04/04/2014 2:32 PM K 4.2 04/04/2014 2:32 PM CHLORIDE 107* 04/04/2014 2:32 PM CO2 24 04/04/2014 2:32 PM BUN 25* 04/04/2014 2:32 PM CREATININE 2.16* 04/04/2014 2:32 PM GLUCOSE 105 04/04/2014 2:32 PM GLUCOSE 82 06/24/2013 11:18 AM CA 9.1 04/04/2014 2:32 PM ANIONGAP 12 04/04/2014 2:32 PM MG 1.9 04/04/2014 2:32 PM PHOS 4.4 04/04/2014 2:32 PM Last CBC/no differential result Lab Results Component Value Date/Time WBC 8.9 10/24/2013 1:53 PM RBC 3.91* 10/24/2013 1:53 PM HGB 12.2 04/04/2014 2:32 PM HCT 36.2 10/24/2013 1:53 PM MCV 92.6 10/24/2013 1:53 PM MCH 30.7 10/24/2013 1:53 PM MCHC 33.1 10/24/2013 1:53 PM PLTS 272 10/24/2013 1:53 PM RDW 13.5 10/24/2013 1:53 PM PTH WHOLE MOLECULE (PG/ML) Date Value 08/28/2003 26 08/28/2003 Reference range: 10 to 65 08/28/2003 (NOTE) INTERPRETIVE GUIDE INTACT PTH CALCIUM NORMAL PARATHYROID FUNCTION 10-65 NORMAL HYPOPARATHYROIDISM <28 LOW PRIMARY HYPERPARATHYROIDISM >65 HIGH SECONDARY HYPERPARATHYROIDISM >65 NORMAL OR LOW NON-PARATHYROID HYPERCALCEMIA <28 HIGH CALCIUM (mg/dl) Date Value 04/04/2014 9.1 PHOSPHORUS (mg/dl) Date Value 04/04/2014 4.4 VITAMIN D, 25-OH, TOT (ng/mL) Date Value 04/04/2014 42.6 ALKALINE PHOSPHATASE (U/L) Date Value 01/01/2009 38 GFR EST IF (ml/min/1.73m2) Date Value 04/04/2014 30* GFR, ESTIMATED (ml/min/1.73m2) Date Value 04/04/2014 26* CREATININE (mg/dl) Date Value 04/04/2014 2.16* ASSESSMENT: 1) CKD 3, PCKD: Awaiting results from today's Blood tests. Patient denies all S/S of uremia, appearseuvolemic. Has continued to work with the [facility] in a study using Tolvaptan. Continue to manage CKD conventionally, avoid all NSAIDs, maintain good oral hydration. Continue lisinopril. 2) Hypertension: Sitting B/P was marginal today, patient reports that her B/Ps are normally much lower at home. I advised patient to monitor her B/Ps BID for the next week or two. Goal B/P <140/90, call if B/Ps are running above goal. Historically has a significant orthostatic drop, asymptomatic. 3) secondary hyperparathyroidism: PTH mildly elevated, will recheck a vitamin D and phosphorus. PLAN: 1) I will call you with the results of your blood tests 2) continue to avoid all NSAIDs 3) Continue to restrict dietary sodium 4) monitor your blood pressure at home twice a day for the next week. Goal is less than 140/90, callme if your readings are above goal 5) return to clinic to see Dr. Martin in 3-4 months, return to clinic to see me in 6-9 months Thanks Lisa Patrick, SENIOR CATEGORY MANAGER, HEEL NAILING MACHINE OPERATOR 09/19/2014, 8:51 AM Patient Active Problem List Diagnosis ??? VARICELLA UNCOMPLICATED ??? REFLUX ESOPHAGITIS ??? POLYCYSTIC KIDNEY, UNSPEC ??? HYPERTENSION NOS ??? ALLERGIC RHINITIS NOS ??? Hypercholesterolemia with Hyperglyceridemia ??? PMDD (Premenstrual Dysphoric Disorder) ??? Obstructive sleep apnea (adult) (pediatric) ??? Mild persistent asthma ??? Family history of breast cancer in first degree relative ??? Autosomal dominant polycystic kidney disease ??? Chronic kidney disease, stage IV (severe) documented in this encounter Plan of Treatment Not on filedocumented as of this encounter Visit Diagnoses Diagnosis CKD (chronic kidney disease) stage 3, GF R 30-59 ml/min (HRC) - Primary Chronic kidney disease, Stage III (moder ate) Polycystic kidney, unspecified type HYPERTENSION NOS Unspecified essential hypertension Secondary hyperparathyroidism (of renal origin) documented in this encounter Care Teams Cooperative Education Director Relationship Specialty Start Date End Date Tiffany Gonzalez APRN, DNP PCP - General 01/16/00 02/03/16 [address] [place] [id number] documented as of this encounter
--- OUTSIDE RECORDS SUMMARY | 2021-12-28 14:11 | XMS_ITS | Encounter Summary ---
:1965 Author Organization [facility] Address [address] [place] [address] Care Team Providers Name Role Phone Tiffany Gonzalez APRN, DNP Primary Care Provider Reason for Visit Reason Comments Refill Encounter Details Date Type Department Care Team Description 06/09/2014 Refill [facility] Nephrology Lisa Patrick, HEADER OPERATOR, LONG WALL SHEAR OPERATOR Refill [address] [facility] [address] [place] [address] [place] [address] [phone] (Wo rk) Social History Tobacco Use Types Packs/Day Years Used Date Smoking Tobacco: Every Day Cigarettes 0.5 L ast attempted to quit: 02/23/2011 Smokeless Tobacco: Never Comments: 1/2 pack per day Alcohol Use Standard Drinks/Week Comments Yes 0.8 (1 standard drink = 0.6 oz pure alco hol) rarely Sex Assigned at Date Recorded Not on file documented as of this encounter Nursing Notes Interface, Out Surescripts Prov Query - 06/09/2014 6:04 AM CST calcitriol (AKA ROCALTROL) 0.25 MCG capsule [Pharmacy Med Name: Calcitriol Oral Capsule 0.25 MCG] - WARNING: The patient should have outstanding refills for this medication until 06/19/2014. - VIOLATION #1: Medication is not assigned to a protocol. - VIOLATION #2: Medications in this protocol cannot be delegated. - PROTOCOL: None Exists - LAST QUALIFYING VISIT IN NEPHROLOGY: 04/04/2014 - NEXT SCHEDULED VISIT IN NEPHROLOGY: 06/26/2014 - LAST REFILLED ON: 04/11/2014, QTY: 15, Refills: 2, Sig: take 1 cap by mouth three times a week. (changed) Powered by [employer], Reference: [id number], 06/09/2014 6:04:55 AM LITIGATOR, Pool: Celina ([id number]) Electronically signed by Interface, Out [employer] Prov Query at 06/09/2014 6:04 AM LITIGATOR documented in this encounter Plan of Treatment Not on filedocumented as of this encounter Visit Diagnoses Not on filedocumented in this encounter Care Teams Fishing Lure Assembler Relationship Specialty Start Date End Date Tiffany Gonzalez APRN, DNP PCP - General 01/16/00 02/03/16 [place] [id number] documented as of this encounter
--- OUTSIDE RECORDS SUMMARY | 2021-12-28 14:11 | XMS_ITS | Encounter Summary ---
:1965 Author Organization [facility] Address [address] [place] [address] Care Team Providers Name Role Phone Tiffany Gonzalez APRN, DNP Primary Care Provider Reason for Visit Reason Comments Refill Encounter Details Date Type Department Care Team Description 09/03/2014 Refill [facility] Nephrology Lisa Patrick, SURGICAL PRODUCT SALES CONSULTANT, WOODWIND INSTRUMENTS INSPECTOR Refill [address] [facility] [address] [place] [address] [place] [address] [phone] (Wo rk) Social History Tobacco Use Types [...] encounter Nursing Notes Jen Hunter RN - 09/04/2014 4:17 PM CDT See phone note 06/19/2014 regarding lisinopril dose. Lisinopril 20 mg BID was confirmed. Medication refilled. Jen Hunter RN 09/04/2014, 4:18 PM Jen Hunter RN - 09/03/2014 4:00 PM CDT It appears as if there was much question regarding the correct dose for this medication at last refill in May 2014. Patient had reported increasing to two tabs twice daily under the direction of [facility]. No confirmation of this was ever received. No BMP since March 2014. This card writer hand left patient a message to please return call to clinic to obtain BP readings and how patient is currently taking this medication. Jen Hunter RN 09/03/2014, 4:04 PM Interface, Out Surescripts Prov Query - 09/03/2014 9:29 AM CDT lisinopril (AKA ZESTRIL) 20 MG tablet - REFILL: 9 months (if violations resolved) - VIOLATION: Cr is abnormal (2.16mg/dL is greater than 2.0mg/dL) - PROTOCOL: Devin Inhibitors - RATIONALE: This refill should last until the patient is due for an office visit check, Cr check, DBP check, K check and SBP check. - LAST QUALIFYING VISIT IN NEPHROLOGY: 04/04/2014 - NEXT SCHEDULED VISIT IN NEPHROLOGY: 09/19/2014 - LAST REFILLED ON: 06/08/2014, QTY: 60, Refills: 1, Sig: take 1 tab by mouth two times a day. (unchanged) - SBP: 133.0mm Hg on 04/04/2014 - DBP: 81.0mm Hg on 04/04/2014 - Cr: 2.16mg/dL on 04/04/2014 - K: 4.2mEq/L on 04/04/2014 Powered by [employer], Reference: [id number], 09/03/2014 9:29:44 AM CDT, Pool: [place]ina ([id number]) Interface, Out [employer] Query - 09/03/2014 9:29 AM CDT The following lab order(s) may be associated with the Result Note below: BASIC METABOLIC PANEL Notes Recorded by Lisa Patrick CNP on 04/05/2014 at 10:32 AM Kidney function is stable, electrolytes are ok. PTH slightly elevated, start Calcitrol 0.25 mg three times a week. All other labs are ok Lisa Galvan CNP 04/05/2014, 10:32 AM documented in this encounter Plan of Treatment Not on filedocumented as of this encounter Visit Diagnoses Not on filedocumented in this encounter Care Teams Floor Worker Well Service Relationship Specialty Start Date End Date Tiffany Gonzalez APRN, GAIL PCP - General 01/16/00 02/03/16 [id number] [place] [id number] documented as of this encounter
--- OUTSIDE RECORDS SUMMARY | 2021-12-28 14:11 | XMS_ITS | Encounter Summary ---
:1965 Author Organization [employer] Address [address] [place] [address] Care Team Providers Name Role Phone Tiffany Gonzalez APRN, DNP Primary Care Provider Reason for Visit Reason Onset Date Comments Return Call 01/18/2015 Encounter Details Date Type Department Care Team Description 01/18/2015 Telephone [facility] Eden Gonzalez, Return Call Practice AUTOMOBILE CLUB MEMBERSHIP SALES AGENT, DNP [address] [place] [address] [place] [address] (Wo rk) Social History Tobacco Use Types Packs/Day Years Used Date Smoking Tobacco: Every Day Cigarettes 0.5 L ast attempted to quit: 02/23/2011 Smokeless Tobacco: Never Comments: 1/2 pack per day Alcohol Use Standard Drinks/Week Comments Yes 0.8 (1 standard drink = 0.6 oz pure alco hol) rarely Sex Assigned at Date Recorded Not on file documented as of this encounter Nursing Notes Rosy Villasenor CMA - 01/18/2015 3:39 PM CDT Called patient to update asthma registry in November. ACT/RAT now updated and asthma completely controlled. Rosy Villasenor CMA 01/18/2015, 3:40 PM Alicia Cuevas - 01/18/2015 3:12 PM CDT Patient says she is returning call to press operator assistant of Tiffany Gonzalez. I do not see a phone message. Alicia Melendez DeLine documented in this encounter Plan of Treatment Not on filedocumented as of this encounter Visit Diagnoses Not on filedocumented in this encounter Care Teams Second Floor Operator Relationship Specialty Start Date End Date Tiffany Gonzalez APRN, DNP PCP - General 01/16/00 02/03/16 [address] [place] [id number] documented as of this encounter
--- OUTSIDE RECORDS SUMMARY | 2021-12-28 14:11 | XMS_ITS | Encounter Summary ---
:1965 Author Organization [employer] Address [address] [place] [address] Care Team Providers Name Role Phone Haylee Alanis APRN, CNP Primary Care Provider [phone] Reason for Visit Reason Comments Dental Hygiene none Encounter Details Date Type Department Care Team Description 03/27/2021 Office Visit [facility] Rochelle Mott ental Hygiene (none) Dentistry [place], [facility] [address] [address] [phone] (Wo rk) Social History Tobacco Use Types [...] Taken Comments Blood Pressure - - Pulse 72 03/27/2021 10:35 AM AUTOMOTIVE PARTS ADVISOR Temperature - - Respiratory Rate - - Oxygen Saturation - - Inhaled Oxygen Concentration - - Weight - - Height - - Body Mass Index - - documented in this encounter Patient Instructions Patient InstructionsRochelle Mott RDH - 03/27/2021 10:30 AM AUTOMOTIVE PARTS ADVISOR Your next hygiene recall is due 09/23/2021 YOUR PERSONAL DENTAL RISK REPORT CARIES (TOOTH DECAY) PERIODONTAL (GUM) DISEASE ORAL CANCER LOW mod high low MOD high low ELEVATED ^ ^ ^ Risk Level: LOW How to Maintain Your Low Risk: Hygiene recall at 12 to 18 months. Instruction from dental professional on brushing, flossing, and use of oral hygiene products. Radiographs to detect decay. Congratulations on your low risk for tooth decay. Making healthy life style choices including brushing twice a day; daily flossing; and healthy dietary choices should help you maintain this low risk. Risk Level: MODERATE Risk Factors: Use of tobacco in cigarettes, cigars, or pipes. Missing scheduled dental appointments. Intermediate levels of plaque. How to Reduce Your Risk: Return visit with the dental hygienist at 6 month intervals to assess periodontal condition and provide necessary treatment. Specific information about what causes periodontal disease and what steps can be taken to help control it. Use specific products to assist with proper oral hygiene such as electric toothbrush with timer. Consider quitting tobacco habit. Participate in [facility] program ([phone]) or other means of quitting. Schedule a separate appointment to assess the results of treatment provided for periodontal disease. Risk Level: ELEVATED Risk Factors: Incidence of oral cancer increases with age. Use of tobacco. How to Reduce Your Risk: Regular dental visits to assess soft tissue. Education given on risk of oral cancer. Consider quitting tobacco habit. Participate in [facility] program ([phone]) or other means of quitting. Stephanie, we look forward to seeing you at your next visit! Thank you for choosing [facility]. MOTIVE PARTS ADVISOR documented in this encounter Progress Notes Rochelle Mott RDH - 03/27/2021 10:30 AM CST HYGIENE PROPHY NOTE (NO EXAM) REASON FOR VISIT/CHIEF COMPLAINT: Stephanie is a 56 y.o. female who presents for No chief complaint on file. COLLABORATIVE AGREEMENT: The patient consents to have prophylaxis by the dental hygienist performed with the understanding that this care is not a substitute for an examination by a dentist. These activities were performed under a collaborating agreement with Justo Caldera DDS (License #: [id number]) CHART REVIEW: Reviewed with patient: Medical history, Dental history, Problem list, Periodontal charting and Radiographs PROCEDURAL PAUSE: Patient identity verified: Yes Treatment plan/site verified with the patient: Yes Instruments/equipment verified: Yes Any medication/allergy contraindications: Yes, see health hx. PRESENTATION: Oral Hygiene: Fair Plaque: Localized, light supra-gingival and posterior buccal Calculus: Localized, moderate supra-gingival , sub-gingival, mandibular anterior and posterior buccal Stain: Generalized, moderate tobacco Bleeding: Localized light Gingival tissue: Normal Mucogingival concerns: Present recession ACTIVITIES: Hand scale, Ultrasonic scale, Essential selective polishing and Flossed all contacts PATIENT EDUCATION: Caries risk, Periodontal risk, Etiology of periodontal disease, OHI, Demonstratedflossing, Oral care adjuncts, Fluoride rinse and Tobacco cessation Remineralization Counseling: Readiness for change: Maintenance Caries risk factors to be addressed: Oral hygiene Patient has been compliant with previous recommendations to address caries risk. Reviewed with patient: Oral hygiene Today's activities: Application of fluoride OTC fluoride prescribed/recommended. Health education: No handouts given to patient. Follow up plan: recall, hc, and fluoride. TREATMENT REVIEW AND FOLLOW-UP: Discussed the Prognosis and Treatment options with the patient. All questions answered and informed consent was obtained. Recommended Recall Interval: Examination: 6 months : Recall prophy: 6 months Planned Recall Interval: Examination: 6 months : Recall prophy: 6 months Next Planned Hygiene Visit: Hygiene Prophy with exam Rochelle Mott RDH 03/27/2021, 11:29 AM --End of Note-- MOTIVE PARTS ADVISOR documented in this encounter Plan of Treatment Not on filedocumented as of this encounter Procedures Procedure Name Priority Date/Time Associated Diagnosis Comme nts TOPICAL FLUORIDE Routine 03/27/2021 10:30 AM Localized gingiva l VARNISH AUTOMOTIVE PARTS ADVISOR recession PROPHYLAXIS-ADULT Routine 03/27/2021 10:30 AM Localized gingiv al RECALL AUTOMOTIVE PARTS ADVISOR recession documented in this encounter Visit Diagnoses Diagnosis Localized gingival recession - Primary Gingival recession, localized documented in this encounter Care Teams Wind Farm Support Specialist Relationship Specialty Start Date End Date Haylee Alanis APRN, TUBE DISPATCHER PCP - General Nurse Practitioner 02/04/[address] [place] [address] documented as of this encounter
--- OUTSIDE RECORDS SUMMARY | 2021-12-28 14:11 | XMS_ITS | Encounter Summary ---
:1965 Author Organization [employer] Address [address] [place] [address] Care Team Providers Name Role Phone Tiffany Gonzalez APRN, DNP Primary Care Provider Reason for Visit Reason Onset Date Comments Disease Registry 11/29/2014 Encounter Details Date Type Department Care Team Description 11/29/2014 Telephone [facility] Eden Gonzalez, Disease Registry Practice PARACHUTE HARNESS RIGGER, DNP [address] [place] [address] [place] [address] (Wo rk) Social History Tobacco Use [...] encounter Nursing Notes Rosy Villasenor CMA - 12/04/2014 11:42 AM CDT 3rd attempt to reach patient. I will send her a letter today. Rosy Villasenor CMA 12/04/2014, 11:43 AM Rosy Villasenor CMA - 12/03/2014 11:55 AM CDT 2nd attempt. Left vm to return call. This patient was identified from the Disease Registry as being out of goal or almost out of goal forone or more of their Optimal Care Measures. ACT/RAT overdue/due soon. Rosy Villasenor CMA 12/03/2014, 11:56 AM Rosy Villasenor CMA - 11/29/2014 11:11 AM CDT Left vm for patient to return call. Needs ACT/RAT. Rosy Villasenor CMA 11/29/2014, 11:11 AM documented in this encounter Plan of Treatment Not on filedocumented as of this encounter Visit Diagnoses Not on filedocumented in this encounter Care Teams Research Professional Relationship Specialty Start Date End Date Tiffany Gonzalez APRN, DNP PCP - General 01/16/00 02/03/16 [address] [place] [id number] documented as of this encounter
--- OUTSIDE RECORDS SUMMARY | 2021-12-28 14:11 | XMS_ITS | Encounter Summary ---
:1965 Author Organization [employer] Address [address] [place] [address] Care Team Providers Name Role Phone Tiffany Gonzalez APRN, DNP Primary Care Provider [phone] Encounter Details Date Type Department Care Team Description 07/02/2014 Telephone [facility] Nephrology Lisa Patrick, APPLICATIONS PACKAGER, [address] [place] [address] [address] [facility] [phone] [place] [address] (Wo rk) Social History Tobacco Use [...] encounter Nursing Notes Tami Hoyt RN - 07/02/2014 3:40 PM CDT Patient was called with the message from Dr. Dickinson. Agreeable to avoid the contrast dye with her diagnostic testing Tami Hoyt RN 07/02/2014, 3:40 PM Tiffany Dickinson MD - 07/02/2014 3:29 PM CDT I would not recommend using contrast given her kidney function. Surgery clinic may be able to do other imaging (HIDA?) to get needed information. Tiffany Dickinson MD 07/02/2014, 3:31 PM Awilda Taylor RN - 07/02/2014 3:[address] Dickinson is covering for Dr. Martin this week. Will route to her care team to advise. Awilda Taylor RN 07/02/2014, 3:23 PM Meliza Tom RN - 07/02/2014 10:07 AM CDT Pt calling clinic this morning to get Lisa Patrick NP opinion on whether or not it would be ok for her to have a CT scan with contrast. Pt was in the [place] ED over the weekend for RUQ pain. Per pt, ED provider believes pain to be gallbladder related but they were unable to visualize the gallbladder with out a CT using contrast. Pt Is going to contact surgery dept for further work up and evaluation. Please advise if CT with contrast is ok given pt's klidney function. Last 3 Creatinine Results CREATININE (mg/dl) Date Value 04/04/2014 2.16* 12/21/2013 1.97* 09/25/2013 2.10* Meliza Tom RN 07/02/2014, 10:20 AM documented in this encounter Plan of Treatment Not on filedocumented as of this encounter Visit Diagnoses Not on filedocumented in this encounter Care Teams Advertising Executive Relationship Specialty Start Date End Date Tiffany Gonzalez, APPLICATIONS PACKAGER, DNP PCP - General 01/16/00 02/03/16 [address] [place] [id number] documented as of this encounter
--- OUTSIDE RECORDS SUMMARY | 2021-12-28 14:11 | XMS_ITS | Encounter Summary ---
:1965 Author Organization [employer] Address [address] [place] [address] Care Team Providers Name Role Phone Tiffany Gonzalez APRN, DNP Primary Care Provider Reason for Visit Reason Comments Refill Encounter Details Date Type Department Care Team Description 09/03/2014 Refill [facility] [place] [facility] Lisa Patrick, [place], PROMOTION MANAGER Refill [address] [facility] [address] [place] [address] [place] [address] [phone] (Wo rk) Social History Tobacco Use Types [...] encounter Nursing Notes Jen Hunter RN - 09/05/2014 3:33 PM CDT Orders entered. Message left for patient. Jen Hunter RN 09/05/2014, 3:34 PM Lisa Patrick - 09/05/2014 2:43 PM CDT Will also need a BMP, hgb, phosphorus, vitamin D and tp/creat ratio at that time ThanksLisa, PROJECT ASSOCIATE, PROMOTION MANAGER 09/05/2014, 2:43 PM Jen Hunter RN - 09/03/2014 3:21 PM CDT PTH, Calcium and Phosphorus required Q 6 months for refill. Labs last done March 2014. Patient has upcoming 09/19/2014 office visit in Nephrology with Lisa Patrick NP. Would you like additional labs to be ordered for upcoming office visit? Patient has CKD IV, HTN... Please advise. Thanks, Jne Hunter RN 09/03/2014, 3:23 PM Interface, Out Surescripts Prov Query - 09/03/2014 9:29 AM CDT calcitriol (AKA ROCALTROL) 0.25 MCG capsule - WARNING: Need PTH in last 6 mo and Calcium and Phosphorus unless on dialysis - REFILL: 9 months (if warnings resolved) - PROTOCOL: Endocrinology: Calcitriol & Hectorol - RATIONALE: This refill should last until the patient is due for an office visit. - LAST QUALIFYING VISIT IN NEPHROLOGY: 04/04/2014 - NEXT SCHEDULED VISIT IN NEPHROLOGY: 09/19/2014 - LAST REFILLED ON: 04/11/2014, QTY: 15, Refills: 2, Sig: take 1 cap by mouth three times a week. (unchanged) Powered by [employer], Reference: [id number], 09/03/2014 9:29:44 AM CDT, Pool: Celina ([id number]) documented in this encounter Plan of Treatment Not on filedocumented as of this encounter Results VITAMIN D 25-HYDROXY, TOTAL [...] - 09/19/2014 12:46 PM CDT Performed at [facility] , [address] [place] [address] Lisa Patrick APRN, CNP LAB_1 Performing Organization Address [facility] Phon e Number [facility] [phone] (ABNORMAL) INTACT PTH (09/19/2014 7:33 AM CDT) athologist Signature Intact PTH 86.7 (H) 14.0 - [facility] 72.0 pg/mL LABORATORIES Specimen Anatomical Collection Method Collection Time Receive d Time (Source) Location / / Volume Laterality 09/19/2014 7:33 AM 5 7:38 CDT AM CDT Narrative [facility] - 09/19/2014 12:41 PM CDT Performed at [facility] , [address] [place] [phone] Lisa Patrick APRN, CNP LAB_1 Performing Organization Address [facility] Phon e Number [facility] [phone] (ABNORMAL) TP/CREA RATIO, URINE (09/19/2014 7:33 AM CDT) [facility] gist Method Time Signature Total Protein, 9 mg/dl [facility] Urine, Random LABORATORIES Creatinine,Ur 35.2 mg/dl [facility] Random [facility] TP/Creat 0.3 (H) <0.2 [facility] Ratio, Urine, LABORATORIES Random Specimen Anatomical Collection Method Collection Time Receive d Time (Source) Location / / Volume Laterality Urine specimen 09/19/2014 7:33 AM 015 7:38 (specimen) CDT AM CDT Narrative [facility] - 09/19/2014 2:04 PM C DT Performed at [facility], [address] [place] [address] ??[phone] Lisa Patrick APRN, CNP LAB_1 Performing Organization Address [facility] Phon e Number [facility] [phone] (ABNORMAL) PHOSPHORUS (09/19/2014 7:33 AM CDT) P athologist Signature Phosphorus 5.0 (H) 2.5 - 4.5 [facility] mg/dl Specimen Anatomical Collection Method Collection Time Receive d Time (Source) Location / / Volume Laterality 09/19/2014 7:33 AM 5 7:37 CDT AM CDT Narrative [facility] - 09/19/2014 12:56 PM CDT Performed at [facility], [address] [place] [address] ??[phone] Lisa Patrick APRN, CNP LAB_1 Performing Organization Address [facility] Phon e Number [facility] [phone] HEMOGLOBIN, BLOOD (09/19/2014 7:33 AM CDT) P athologist Signature Hemoglobin 12.0 12.0 - 16.0 [facility] g/dl Specimen Anatomical Collection Method Collection Time Receive d Time (Source) Location / / Volume Laterality 09/19/2014 7:33 AM 5 7:37 CDT AM CDT Narrative [facility] - 09/19/2014 4:31 PM C DT Performed at [facility], [address] [place] [address] ??[phone] Lisa Patrick APRN, CNP LAB_1 Performing Organization Address [facility] Phon e Number [facility] [phone] (ABNORMAL) BASIC METABOLIC PANEL (09/19/2014 7:33 AM CDT) [facility] gist Method Time Signature Sodium 141 135 [...] - 09/19/2014 12:56 PM CDT Performed at [facility], [address] [place] [address] ??[phone] Lisa Patrick APRN, CNP LAB_1 Performing Organization Address [facility] Phon e Number [facility] [phone] documented in this encounter Visit Diagnoses Diagnosis Chronic kidney disease, stage IV (severe ) ([facility]) - Primary Chronic kidney disease, Stage IV (severe ) Polycystic kidney, unspecified type Hypercholesterolemia with hyperglyceride marilee ([facility]) Mixed hyperlipidemia Polycystic kidney, unspecified type Chronic kidney disease, stage IV (severe ) ([facility]) Chronic kidney disease, Stage IV (severe ) documented in this encounter Care Teams Senior It Security Analyst Relationship Specialty Start Date End Date Tiffany Gonzalez APRN, DNP PCP - General 01/16/00 02/03/16 [address] [place] [id number] documented as of this encounter
--- OUTSIDE RECORDS SUMMARY | 2021-12-28 14:11 | XMS_ITS | Encounter Summary ---
:1965 Author Organization [facility] Address [address] [place] [address] Care Team Providers Name Role Phone Tiffany Gonzalez APRN, DNP Primary Care Provider Reason for Visit Reason Comments Reschedule Appointment Encounter Details Date Type Department Care Team Description 06/25/2014 Telephone [facility] Nephrology Lisa Patrick, Reschedule Appointment [address] [facility] DIP UNIT OPERATOR, [place] [address] [address] [phone] [place] [address] Social History Tobacco Use Types Packs/Day Years Used Date Smoking Tobacco: Every Day Cigarettes 0.5 L ast attempted to quit: 02/23/2011 Smokeless Tobacco: Never Comments: 1/2 pack per day Alcohol Use Standard Drinks/Week Comments Yes 0.8 (1 standard drink = 0.6 oz pure alco hol) rarely Sex Assigned at Date Recorded Not on file documented as of this encounter Nursing Notes Fortino Astudillo - 06/29/2014 2:59 PM CDT Mailed letter to patient's home requested a call back to reschedule. Fortino Astudillo 06/29/2014, 2:59 PM Fortino Astudillo - 06/27/2014 12:25 PM CDT 2nd LMTCB. Fortino Astudillo 06/27/2014, 12:26 PM Fortino Astudillo - 06/25/2014 4:32 PM CDT LMTCB. Provider ill. Need to reschedule. documented in this encounter Plan of Treatment Not on filedocumented as of this encounter Visit Diagnoses Not on filedocumented in this encounter Care Teams Global Clinical Leader Relationship Specialty Start Date End Date Tiffany Gonzalez APRN, DNP PCP - General 01/16/00 02/03/16 [address] [place] [id number] documented as of this encounter
--- OUTSIDE RECORDS SUMMARY | 2021-12-28 14:11 | XMS_ITS | Encounter Summary ---
:1965 Author Organization [facility] Address [address] [place] [address] Care Team Providers Name Role Phone Haylee Alanis APRN, CNP Primary Care Provider [phone] Reason for Visit Reason Comments Dental Hygiene Cc none Encounter Details Date Type Department Care Team Description 11/11/2021 Office Visit [place] [facility] Sallie Costa Den jennifer Hygiene (Cc Dentistry none) [address] [id number] Social History Tobacco Use Types Packs/Day Years Used Date Smoking Tobacco: Every Day Cigarettes 0.5 20 L ast attempted to quit: 12/20/2010 Smokeless Tobacco: Never Comments: 1/2 pack per day Alcohol Use Standard Drinks/Week Comments Yes 1 (1 standard drink = 0.6 oz pure alcoho l) rarely Sex Assigned at Date Recorded Not on file documented as of this encounter Patient Instructions Patient InstructionsLauren Shine DDS - 11/11/2021 12:10 PM CDT SELF-CARE TIPS FOR HELPING TEMPOROMANDIBULAR DISORDERS (TMD) Jaw pain and difficulty with jaw movement are common signs of problems with the temporomandibular joint (TMJ) or jaw muscles. These problems as a group are called temporomandibular disorders of TMD. You can often improve these problems with some basic home care. TRY MOIST HEAT: Moist heat can be especially helpful for sore muscles. Apply heat to the painful area of the jaw for 15 to 20 minutes, three to four times a day. Try using a wet towel over a hot water bottle, a gel-type heat pack, or a wet washcloth heated in a microwave. Take care to avoid burning your skin. TRY ICE: Ice treatment is often helpful if you have a sore jaw joint. Place an ice cube directly over your jaw joint in front of your ear. Move the ice cube over the jaw joint for four to give minutes.Take care to avoid frosting your skin. EAT A SOFT DIET: A simple rule of thumb is to avoid chewing foods that make the pain worse or cause your jaw to click. Cook foods to a soft consistency and cut into smaller bites. Try to avoid bitingoff pieces of food with your front teeth. Place smaller pieces of food directly in the back of your mouth and chew on both sides to avoid overloading one side. AVOID CHEWING GUM: DO NOT chew gum. Chewing gum puts a lot of pressure on your jaw joints for a longperiods of time. PRACTICE GOOD JAW POSITION: The normal resting position of your jaw is to have your teeth slightly , and the tip of your tongue in the roof of your mouth behind your front teeth. This is a relaxed position with no tense jaw muscles. Your teeth should only touch when you chew or swallow. Checkyour jaw position several times during the day to make sure your are not clenching your teeth. PRACTICE GOOD JAW HABITS: Do you have any habits that may make your jaw problem worse? Ask your family or friends to let you know if they see you doing any of the following: clenching or grinding your teeth, biting your lip or your cheek, biting youur fingernails or a pen, or thrusting your jaw forward and bracing your jaw, even with your teeth apart. TALK TO YOUR DENTIST AT APPOINTMENTS: Tell your dentist or hygienist if you have been having problems with your jaw. Avoid holding your mouth open for long periods during the exam. AVOID CAFFEINE: Avoid drinking a lot of caffeinated beverages, such as coffee or rosenda. They can contribute to jaw muscle tension and pain. Aim for two or less caffeinated beverages a day. TRY A NEW SLEEPING POSITION: Try not to sleep on your stomach, as this can put pressure on your jaw. USE MEDICATIONS NECESSSARY: Urtq-url-herhesr medications such as ibuprofen, aspirin or Tylenol can be helpful in reducing your jaw pain. Take these medications as presctibed on the product instructions. documented in this encounter Progress Notes Lauren Shine DDS - 11/11/2021 12:10 PM CDT RECALL EXAM NOTE REASON FOR VISIT/CHIEF COMPLAINT: Stephanie is a 56 y.o. female who presents for No chief complaint on file. CHART REVIEW: Reviewed with patient: Medical history, Dental history, Problem list, Periodontal charting, and Radiographs. SOFT TISSUE, HEAD AND NECK EXAMINATION: Lips: Normal Tongue: Normal Palate: Normal Throat: Normal Floor of the mouth: Normal Mucosa: Normal Head and neck: Normal TMD EVALUATION: Palpation Pain: None Joint Sounds: None Pain with Range of Motion: None OCCLUSAL EXAMINATION: Unchanged COSMETIC CONCERNS: Patient's Perception: Acceptable Dentist's Perception: Acceptable TREATMENT REVIEW AND FOLLOW-UP: Discussed the dental findings, treatment options, and prognosis withthe patient. All questions answered and informed consent was obtained. Recommended Recall Interval: Examination: 6 months Recall prophy: 6 months Planned Recall Interval: Examination: 6 months Recall prophy: 6 months Prescribed Prevident , Sensitive teeth abfractions ,present , discussed clenching and grinding recommended a ocean lifeg[facility] home care discussed and printed sheet given Next Planned Visit: recall Lauren Shine DDS 11/11/2021, 12:56 PM --End of Note-- Sallie Costa - 11/11/2021 12:10 PM CDT HYGIENE PROPHY NOTE COLLABORATIVE AGREEMENT: The patient consents to have charting and prophylaxis by the dental hygienist performed with the understanding that this care is not a substitute for an examination by a dentist. These activities were performed under a collaborating agreement with Naun Rider DDS (License #: [id number]) PROCEDURAL PAUSE: Patient identity verified: Yes Treatment plan/site verified with the patient: Yes Instruments/equipment verified: Yes Any medication/allergy contraindications: No PRESENTATION: Plaque: Localized, moderate supra-gingival , sub-gingival, interproximal, mandibular anterior, and posterior buccal Calculus: Localized, moderate supra-gingival , sub-gingival, interproximal, mandibular anterior, andposterior buccal Stain: Localized, light Bleeding: Localized moderate Gingival tissue: Inflamed Mucogingival concerns: Absent ACTIVITIES: Hand scale, Ultrasonic scale, Essential selective polishing, and Flossed all contacts PATIENT EDUCATION: OHI NEXT PLANNED HYGIENE VISIT: Hygiene Prophy with exam Sallie Costa RDH 11/11/2021, 12:17 PM --End of Note-- documented in this encounter Plan of Treatment Scheduled Orders Name Type Priority Associated Order Schedule Diagnoses PROPHYLAXIS-ADULT Dental Procedures Routine 1 Occ urrences RECALL starting 2021 PERIODIC ORAL Dental Procedures Routine 1 Occurre nces EVALUATION starting 2021 VZSY-OUETUALY-PPLF Dental Procedures Routine 1 Oc currences starting 2021 TOPICAL FLUORIDE Dental Procedures Routine 1 Occu rrences VARNISH starting 2021 documented as of this encounter Procedures Procedure Name Priority Date/Time Associated Diagnosis Comme nts PERIODIC ORAL Routine 11/11/2021 12:10 PM Routine health EVALUATION CDT maintenance PROPHYLAXIS-ADULT Routine 11/11/2021 12:10 PM Routine health RECALL CDT maintenance documented in this encounter Visit Diagnoses Diagnosis Routine health maintenance - Primary Routine general medical examination at a health care facility documented in this encounter Care Teams Superintendent Pipelines Relationship Specialty Start Date End Date Haylee Alanis APRN, ENDODONTICS DENTIST PCP - General Nurse Practitioner 02/04/[address] [address] documented as of this encounter
--- OUTSIDE RECORDS SUMMARY | 2021-12-28 14:11 | XMS_ITS | Encounter Summary ---
:1965 Author Organization [facility] Address [address] [place] [address] Care Team Providers Name Role Phone Tiffany Gonzalez RETURN AGENT AIRPORT, DNP Primary Care Provider Reason for Visit Reason Onset Date Comments Disease Registry 10/02/2014 Encounter Details Date Type Department Care Team Description 10/02/2014 [facility]phone [facility] Gonzalez, Disease Registry Practice RETURN AGENT AIRPORT, DNP [address] [place] [id number] [place] [id number] (Wo rk) Social History Tobacco Use [...] encounter Nursing Notes Rosy Villasenor CMA - 10/08/2014 11:50 AM CDT Third attempt to reach patient. She is due for ACT/AMP. Will send letter with form in mail. Rosy Villasenor CMA 10/08/2014, 11:50 AM Meliza Escobar MA - 10/02/2014 8:30 AM CDT Pt is due for Asthma ACT and RAT. Left a message for her to call back. Meliza Escobar MA documented in this encounter Plan of Treatment Not on filedocumented as of this encounter Visit Diagnoses Not on filedocumented in this encounter Care Teams Truck Operator Relationship Specialty Start Date End Date Tiffany Gonzalez APRN, DNP PCP - General 01/16/00 02/03/16 [address] [place] [id number] documented as of this encounter
--- OUTSIDE RECORDS SUMMARY | 2021-12-28 14:11 | XMS_ITS | Encounter Summary ---
:1965 Author Organization [facility] Address [address] [place] [address] Care Team Providers Name Role Phone Tiffany Gonzalez APRN, DNP Primary Care Provider Reason for Visit Reason Onset Date Comments Refill 06/01/2014 Encounter Details Date Type Department Care Team Description 06/01/2014 Refill [facility] Lisa Patrick, EEO OFFICER, APPRENTICE PAINTER BRUSH Refill [address] [facility] [address] [place] [address] [place] [address] [phone] (Wo rk) Social History Tobacco Use Types [...] Notes Interface, Out Surescripts Prov Query - 06/01/2014 2:30 PM CST lisinopril (AKA ZESTRIL) 20 MG tablet - WARNING: The patient should have outstanding refills for this medication until 09/21/2014. - REFILL: 12 months (if warnings resolved) - PROTOCOL: Devin Inhibitors - RATIONALE: This refill should last until the patient is due for an office visit check, DBP check, K check and SBP check. - LAST QUALIFYING VISIT IN NEPHROLOGY: 04/04/2014 - NEXT SCHEDULED VISIT IN NEPHROLOGY: 06/26/2014 - LAST REFILLED ON: 09/26/2013, QTY: 90, Refills: 12, Sig: take 1 tab by mouth daily. (unchanged) - SBP: 133.0mm Hg on 04/04/2014 - DBP: 81.0mm Hg on 04/04/2014 - K: 4.2mEq/L on 04/04/2014 Powered by [employer], Reference: [id number], 06/01/2014 2:34:12 PM SURGICAL SUPPLY ASSISTANT, Pool: Veronica ([id number]) ICAL SUPPLY ASSISTANT Interface, Out OKKAM Prov Query - 06/01/2014 2:30 PM CST The following lab order(s) may be associated with the Result Note below: BASIC METABOLIC PANEL Notes Recorded by Lisa Patrick CNP on 04/05/2014 at 10:32 AM Kidney function is stable, electrolytes are ok. PTH slightly elevated, start Calcitrol 0.25 mg three times a week. All other labs are ok Lisa Galvan CNP 04/05/2014, 10:32 AM ICAL SUPPLY ASSISTANT Rob Cerrato Michael - 06/01/2014 2:28 PM CST Pt states she is taking one tablet twice daily. Please advise with new RX daily. Rbo Cerrato ICAL SUPPLY ASSISTANT documented in this encounter Plan of Treatment Not on filedocumented as of this encounter Visit Diagnoses Not on filedocumented in this encounter Care Teams Tenter Frame Operator Relationship Specialty Start Date End Date Tiffany Gonzalez APRN, DNP PCP - General 01/16/00 02/03/16 [address] [place] [id number] documented as of this encounter
--- OUTSIDE RECORDS SUMMARY | 2021-12-28 14:11 | XMS_ITS | Encounter Summary ---
:1965 Author Organization [facility] Address [address] [place] [address] Care Team Providers Name Role Phone Tiffany Gonzalez APRN, DNP Primary Care Provider Reason for Visit Reason Onset Date Comments RESULTS, TEST 04/10/2014 Encounter Details Date Type Department Care Team Description 04/10/2014 Telephone [facility]ph[facility] Lisa Patrick APRN, RESULTS, TEST [address] [place] [address] [address] [facility] [phone] [place], [place] [address] (Wo rk) Social History [...] Nursing Notes Tami Hoyt RN - 04/10/2014 1:42 PM CST Medication update Patient was asked by [facility] Nephrology to increase the Carvedilol to 25 mg bid Med list updated Tami Hoyt RN 04/10/2014, 1:45 PM LE FUSION CONSULTANT documented in this encounter Plan of Treatment Not on filedocumented as of this encounter Visit Diagnoses Not on filedocumented in this encounter Care Teams Kid Club Attendant Relationship Specialty Start Date End Date Tiffany Gonzalez APRN, DNP PCP - General 01/16/00 02/03/16 [address] [place] [id number] documented as of this encounter
--- OUTSIDE RECORDS SUMMARY | 2021-12-28 14:11 | XMS_ITS | Encounter Summary ---
:1965 Author Organization [facility] Address [address] [place] [address] Care Team Providers Name Role Phone Haylee Alanis APRN, CNP Primary Care Provider [phone] Encounter Details Date Type Department Care Team Description 02/05/2016 Notes/Orders [facility] Haylee Alanis, dominal pain, Practice AMY CULVER generalized (Primary [address] [facility] [address]) [place] [phone] Social History Tobacco Use Types Packs/Day Years Used Date Smoking Tobacco: Every Day Cigarettes 0.5 L ast attempted to quit: 02/23/2011 Smokeless Tobacco: Never Comments: 1/2 pack per day Alcohol Use Standard Drinks/Week Comments Yes 0.8 (1 standard drink = 0.6 oz pure alco hol) rarely Sex Assigned at Date Recorded Not on file documented as of this encounter Progress Notes Haylee Alanis APRN, CNP - 02/06/2016 7:56 AM CDT Quick Note: Released to OPS. [place] The hepatitis C test was also negative. Haylee Alanis APRN, CNP 02/06/2016 7:55 AM documented in this encounter Plan of Treatment Not on filedocumented as of this encounter Procedures Procedure Name Priority Date/Time Associated Diagnosis Comme nts HEPATITIS C Routine 02/04/2016 1:58 PM Results f or this ANTIBODY, WITH CDT procedure are in REFLEX the results section. documented in this encounter Results Hepatitis C Antibody, with Reflex (02/04/2016 1:58 PM CDT) [facility] gist Method Time Signature Anti-HCV Negative (Non NEGNR [facility]) [facility]OR[facility]IES Comment: Antibodies to HCV not detected. Does not exclude the possibility of exposure to HCV. Specimen Anatomical Collection Method Collection Time Receive d Time (Source) Location / / Volume Laterality 02/04/2016 1:58 PM 6 3:46 CDT PM CDT Narrative [facility] - 02/05/2016 6:04 PM C DT Performed at [facility], [address] [place] [phone] Haylee Alanis APRN, CNP LAB_1 Performing Organization Address City/State/ZIP Code Phon e Number [facility] [phone] documented in this encounter Visit Diagnoses Diagnosis Abdominal pain, generalized - Primary documented in this encounter Care Teams High Voltage Electrician Relationship Specialty Start Date End Date Haylee Alanis APRN, CNP PCP - General Nurse Practitioner 02/04/[address] [place] [address] documented as of this encounter
--- OUTSIDE RECORDS SUMMARY | 2021-12-28 14:11 | XMS_ITS | Encounter Summary ---
:1965 Author Organization [facility] Address [address] [place] [address] Care Team Providers Name Role Phone Tiffany Gonzalez APRN, DNP Primary Care Provider [phone] Reason for Visit Reason Comments QUESTIONS, GENERAL Encounter Details Date Type Department Care Team Description 02/03/[address] [facility] Nephrology Lisa Patrick, QUESTIONS, GENERAL [address] [facility] COUNTER MANAGER, [place] [address] [address] [phone] [place] [phone] (Wo rk) Social History Tobacco Use [...] documented as of this encounter Nursing Notes Rob Cerrato - 02/03/2016 2:20 PM CDT ALERT!!! THE ORIGINAL NOTE WAS CREATED IN ERROR AND IS DELETED. PLEASE DISREGARD ALL CONTENT!! documented in this encounter Plan of Treatment Not on filedocumented as of this encounter Visit Diagnoses Not on filedocumented in this encounter Care Teams Trombone Slide Assembler Relationship Specialty Start Date End Date Tiffany Gonzalez APRN, DNP PCP - General 01/16/00 02/03/16 [address] [place] [id number] documented as of this encounter
--- OUTSIDE RECORDS SUMMARY | 2021-12-28 14:11 | XMS_ITS | Encounter Summary ---
:1965 Author Organization [facility] Address [address] [place] [address] Care Team Providers Name Role Phone Tiffany Gonzalez APRN, DNP Primary Care Provider Reason for Visit Reason Onset Date Comments Disease Registry 08/02/2014 Asthma Encounter Details Date Type Department Care Team Description 08/02/[address] [facility] Eden Gonzalez Disease Registry Practice MPALOMO, GAIL (Asthma) [address] [place] [phone] [place] [id number] (Wo rk) Social History Tobacco Use [...] encounter Nursing Notes Becky Cook CMA - 08/02/2014 10:30 AM CDT Patient at goal ACT=24 on 08/28/13 . Please complete AMP letter. ( DO NOT MAIL ) Becky Cook CMA documented in this encounter Plan of Treatment Not on filedocumented as of this encounter Visit Diagnoses Diagnosis Mild persistent asthma, uncomplicated (H RC) - Primary Unspecified asthma documented in this encounter Care Teams Drugless Physician Relationship Specialty Start Date End Date Tiffany Gonzalez APRN, DNP PCP - General 01/16/00 02/03/16 [address] [place] [id number] documented as of this encounter
--- OUTSIDE RECORDS SUMMARY | 2021-12-28 14:11 | XMS_ITS | Encounter Summary ---
:1965 Author Organization [facility] Address [address] [place] [address] Care Team Providers Name Role Phone Tiffany Gonzalez APRN, DNP Primary Care Provider [phone] Reason for Referral Procedure/Equipment (Routine) - Incomplete Specialty Diagnoses / Procedures Referred By Contact Refer red To Contact Procedures Tiffany Gonzalez, MAMMOGRAM SCREENING GAIL CULVER BILATERAL [address] [place] [address] Referral ID Status Reason Start Date Expiration Date Visits V isits Requested Authorized [id number] Incomplete 05/15/2014 1 1 VATIVES TRADER Reason for Visit Procedure/Equipment (Routine) - Incomplete Specialty Diagnoses / Procedures Referred By Contact Refer red To Contact Procedures Tiffany Gonzalez, MAMMOGRAM SCREENING GAIL CULVER BILATERAL [address] [place] [address] Referral ID Status Reason Start Date Expiration Date Visits V isits Requested Authorized [id number] Incomplete 05/15/2014 1 1 Encounter Details Date Type Department Care Team Description 05/15/2014 Imaging [facility] [address] [place] [phone] Social History Tobacco Use Types Packs/Day Years [...] Name Priority Date/Time Associated Diagnosis Comme nts MM MAMMOGRAM Routine 05/15/2014 11:21 AM Results for this SCREENING BILAT W DERIVATIVES TRADER procedure are in CAD the results section. documented in this encounter Results MAMMOGRAM SCREENING BILATERAL (05/15/2014 11:21 AM DERIVATIVES TRADER) Anatomical Region Laterality Modality Breast Bilateral Mammography Specimen (Source) Anatomical Location Collection Method / Collectio n Time Received Time / Laterality Volume Narrative 05/16/2014 2:15 PM DERIVATIVES TRADER BILATERAL FULL FIELD DIGITAL SCREENING MAMMOGRAM Performed on 05/15/2014 Comparison: MAMMOGRAM SCREENING W/CAD BI LAT 03/08/12 and MAMMOGRAM SCREENING W/CAD BILAT 02/26/11. Findings: The breasts have scattered fib roglandular densities. There is no radiographic evidence of malignancy.This study was evaluated with the assistance of Computer-Aided Detection. ??Repeat routine screening mammogram in one year is recommended. ACR BI-RADS Category 1: Negative Tiffany Gonzalez APRN, DNP RAD AYANNA documented in this encounter Visit Diagnoses Not on filedocumented in this encounter Care Teams Package Sealer Relationship Specialty Start Date End Date Tiffany Gonzalez APRN, GAIL PCP - General 01/16/00 02/03/16 [address] [place] [id number] documented as of this encounter
--- OUTSIDE RECORDS SUMMARY | 2021-12-28 14:11 | XMS_ITS | Encounter Summary ---
:1965 Author Organization [facility] Address [address] [place] [address] Care Team Providers Name Role Phone Haylee Alanis APRN, CNP Primary Care Provider [phone] Encounter Details Date Type Department Care Team Description 02/04/2016 Lab Visit [facility] Abdominal pain, right upper quadrant; [address] [facility] Loss of appetite; [place], [place] [address] Early satiety [phone] Social History Tobacco Use Types Packs/Day Years [...] Progress Notes Haylee Alanis APRN, CNP - 02/05/2016 8:09 AM CDT Quick Note: Stephanie Your labs are back and look pretty good, your kidney function is stable at this time. The lab did not do hepatitis C so I added that on today, if they cannot run it for some reason I will let you know. Continue to Ct scan. Haylee Alanis APRN, CNP 02/05/2016 8:09 AM documented in this encounter Plan of Treatment Not on filedocumented as of this encounter Procedures Procedure Name Priority Date/Time Associated Comments Diagnosis CREATININE / GFR Routine 02/04/2016 1:58 PM Abdominal pain, Re sults for this CDT right upper procedure are i n quadrant the results Loss of appetite section. Early satiety LIVER PANEL(HEPATIC Routine 02/04/2016 1:58 PM Abdominal pain, Results for this FUNCTION PANEL) CDT right upper procedure ar e in quadrant the results Loss of appetite section. Early satiety COMPLETE BLOOD Routine 02/04/2016 1:58 PM Abdominal pain, Resu lts for this COUNT-NO DIFF CDT right upper procedure are in quadrant the results Loss of appetite section. Early satiety ACUTE HEPATITIS Routine 02/04/2016 1:58 PM Abdominal pain, Res ults for this PROFILE CDT right upper procedure are i n quadrant the results section. documented in this encounter Results Acute Hepatitis Profile (02/04/2016 1:58 PM CDT) [...] 02/04/2016 6:50 PM C DT Performed at [facility], [address] [place] [phone] Haylee Alanis APRN, TERRAZZO GRINDER LAB_1 Performing Organization Address City/State/ZIP Code Phon e Number [facility] [phone] (ABNORMAL) Complete Blood Count-No Diff (02/04/2016 1:58 [...] 02/04/2016 4:10 PM C DT Performed at [facility], [address] [place] [address] ??[phone] Haylee Alanis APRN, CNP LAB_1 Performing Organization Address [facility] Phon e Number [facility] [phone] (ABNORMAL) Creatinine / GFR (02/04/2016 1:58 PM CDT) [facility] [employer] Method Time Signature Creatinine 2.22 (H) 0.55 [...] 02/04/2016 6:31 PM C DT Performed at [facility], [address] [place] [address] ??[phone] Haylee Alanis APRN, AMY LAB_1 Performing Organization Address [facility] Phon e Number [facility] [phone] (ABNORMAL) Liver Panel(Hepatic Function Panel) (02/04/2016 1:58 PM CDT) [facility] [employer] Method Time Signature Alkaline 46 40 - [...] 02/04/2016 6:31 PM C DT Performed at [facility], [address] [place] [address] ??[phone] Haylee Alanis APRN, CNP LAB_1 Performing Organization Address City/State/ZIP Code Phon e Number [facility] [phone] documented in this encounter Visit Diagnoses Diagnosis Abdominal pain, right upper quadrant Loss of appetite Anorexia Early satiety documented in this encounter Care Teams Instructor Trainer Canine Service Relationship Specialty Start Date End Date Haylee Alanis APRN, AMY PCP - General Nurse Practitioner 02/04/16 [address], [place] [address] documented as of this encounter
--- OUTSIDE RECORDS SUMMARY | 2021-12-28 14:11 | XMS_ITS | Encounter Summary ---
:1965 Author Organization [employer] Address [address] [place] [address] Care Team Providers Name Role Phone Haylee Alanis APRN, MEDIA SERVICES COORDINATOR Primary Care Provider [phone] Encounter Details Date Type Department Care Team Description 02/17/2016 Telephone [facility] Lisa Patrick, [place], [address] [place] [address] [address] [facility] [phone] [place] [phone] (Wo rk) Social History Tobacco Use [...] documented as of this encounter Nursing Notes Sarah Steele - 02/17/2016 3:26 PM CDT [facility] needs a referral for patient to see Dr. Sepulveda at [facility], Patients appointment is set for Feb 27 at [facility] After further discussion is sounds like she is needing to talk to Selena Hawk pheresis specialist... Gave number and fax Sarah Steele documented in this encounter Plan of Treatment Not on filedocumented as of this encounter Visit Diagnoses Not on filedocumented in this encounter Care Teams Manager Bridge Relationship Specialty Start Date End Date Haylee Alanis APRN, MEDIA SERVICES COORDINATOR PCP - General Nurse Practitioner 02/04/16 [address] [place] [address] documented as of this encounter
--- OUTSIDE RECORDS SUMMARY | 2021-12-28 14:11 | XMS_ITS | Encounter Summary ---
:1965 Author Organization [employer] Address [address] [place] [address] Care Team Providers Name Role Phone Tiffany Gonzalez APRN, GAIL Primary Care Provider [phone] Reason for Visit Reason Onset Date Comments Refill 06/28/2015 Simvastatin Encounter Details Date Type Department Care Team Description 06/28/2015 Refill [facility] Eden Gonzalez Refill (Simvastatin) Practice M, [place], DNP [address] [place] [id number] [place] [id number] (Wo rk) Social History [...] Notes Interface, Out Surescripts Prov Query - 06/28/2015 2:45 PM CST simvastatin (AKA ZOCOR) 40 MG tablet - VIOLATION: An office visit is overdue (performed over 18 months ago, required every 12 months). - PROTOCOL: Cholesterol - Statins - LAST QUALIFYING VISIT IN FAMILY PRACTICE: 12/21/2013 - NEXT SCHEDULED VISIT: None - LAST REFILLED ON: 09/03/2014, QTY: 45, Refills: 2, Sig: take 0.5 tabs by mouth daily at bedtime. (unchanged) - LDL: 102.0mg/dL on 09/19/2014 Powered by [employer], Reference: [id number], 06/28/2015 2:45:29 PM PRODUCTION TEAM LEADER, Pool: DARÍO RICHARDSON RN ([id number]) UCTION TEAM LEADER Interface, Out Oxane Materials Prov Query - 06/28/2015 2:45 PM CST The following lab order(s) may be associated with the Result Note below: BASIC METABOLIC PANEL Notes Recorded by Meliza Tom RN on 09/21/2014 at 8:40 AM See phone note 09/21/2014 Meliza Tom RN 09/21/2014, 8:40 AM ------ Notes Recorded by Lisa Patrick APRN, MAPPING PILOT on 09/20/2014 at 10:26 AM Kidney function is stable, most recent creatinine was 2.03, kidneys functioning approximately at 28%. Phosphorus is high, restrict foods high in phosphorus. Start phosLo 1 tab BID with meals. Repeat BMP and phosphorus in 1 month PTH vitamin D, hgb are stable. Thanks Lisa Patrick APRN, AMY 09/20/2014, 10:26 AM UCTION TEAM LEADER documented in this encounter Plan of Treatment Not on filedocumented as of this encounter Visit Diagnoses Not on filedocumented in this encounter Care Teams Foreign Exchange Position Clerk Relationship Specialty Start Date End Date Tiffany Gonzalez APRN, DNP PCP - General 01/16/00 02/03/16 [address] [place] [id number] documented as of this encounter
--- OUTSIDE RECORDS SUMMARY | 2021-12-28 14:11 | XMS_ITS | Encounter Summary ---
:1965 Author Organization [employer] [facility] [employer] Address [address] [place] [address] Care Team Providers Name Role Phone Tiffany Gonzalez APRN, DNP Primary Care Provider [phone] Encounter Details Date Type Department Care Team Description 06/28/2015 Notes/Orders [facility] Richa Gonzalez for Practice Tiffany Still APRN, long-term (current) [address] DNP use of medications [place] [id number] [address] (Primary Dx) [phone] [place] [id number] (Wo rk) Social History Tobacco Use Types Packs/Day Years Used Date Smoking Tobacco: Every Day Cigarettes 0.5 L ast attempted to quit: 02/23/2011 Smokeless Tobacco: Never Comments: 1/2 pack per day Alcohol Use Standard Drinks/Week Comments Yes 0.8 (1 standard drink = 0.6 oz pure alco hol) rarely Sex Assigned at Date Recorded Not on file documented as of this encounter Nursing Notes Mary Tripp CMA - 06/28/2015 2:48 PM CST Pt notified. Mary Tripp CMA 06/28/2015, 2:48 PM ID OPERATOR Interface, Out Surescripts Prov Query - 06/28/2015 2:45 PM CST SCHEDULE THE FOLLOWING: - OFFICE VISIT BY: Now (Due as of 12/16/2014 for multiple medications including citalopram (AKA CELEXA) 40 MG tablet) - LAST QUALIFYING VISIT IN FAMILY PRACTICE: 12/21/2013 - NEXT SCHEDULED VISIT: None - NEXT LAB APPOINTMENT: None We recently received a refill request on one of your medications. While reviewing your chart, we noticed that you are going to be due for a visit with your provider within the next 3 months. You can schedule your appointment online at [employer] or by calling the appointment center at the phone number listed above. Thank you for choosing [facility] Nurses Powered by [employer], Reference: [id number], 06/28/2015 2:45:29 PM EUCLID OPERATOR, Pool: DARÍO RICHARDSON RN ([id number]) Interface, Out Private Outlet Prov Query - 06/28/2015 2:45 PM CST The following lab order(s) may be associated with the Result Note below: BASIC METABOLIC PANEL Notes Recorded by Meliza Tom RN on 09/21/2014 at 8:40 AM See phone note 09/21/2014 Meliza Tom RN 09/21/2014, 8:40 AM ------ Notes Recorded by Lisa Patrick, DIE ATTACHER, TUBING MACHINE TENDER on 09/20/2014 at 10:26 AM Kidney function is stable, most recent creatinine was 2.03, kidneys functioning approximately at 28%. Phosphorus is high, restrict foods high in phosphorus. Start phosLo 1 tab BID with meals. Repeat BMP and phosphorus in 1 month PTH vitamin D, hgb are stable. Thanks Lisa Patrick, [place], TUBING MACHINE TENDER 09/20/2014, 10:26 AM documented in this encounter Plan of Treatment Not on filedocumented as of this encounter Visit Diagnoses Diagnosis Encounter for long-term (current) use of medications - Primary Encounter for long-term (current) use of other medications documented in this encounter Care Teams Child Caregiver Relationship Specialty Start Date End Date Tiffany Gonzalez APRN, DNP PCP - General 01/16/00 02/03/16 [address] [place] [id number] documented as of this encounter
--- OUTSIDE RECORDS SUMMARY | 2021-12-28 14:11 | XMS_ITS | Encounter Summary ---
:1965 Author Organization [facility] Address [address] [place] [address] Care Team Providers Name Role Phone Tiffany Gonzalez APRN, DNP Primary Care Provider [phone] Reason for Visit Reason Comments Refill Encounter Details Date Type Department Care Team Description 06/09/2014 Refill [facility] Nephrology Lisa Patrick, HEADING SAW OPERATOR, PROFESSOR OF EXERCISE SCIENCE Refill [address] [facility] [address] [place] [address] [place] [address] [phone] (Wo rk) Social History Tobacco Use Types [...] Interface, Out Surescripts Prov Query - 06/09/2014 5:33 PM CST calcitriol (AKA ROCALTROL) 0.25 MCG capsule [Pharmacy Med Name: Calcitriol Oral Capsule 0.25 MCG] - WARNING: A duplicate request was processed on 06/09/2014. - VIOLATION #1: Medication is not assigned to a protocol. - VIOLATION #2: Medications in this protocol cannot be delegated. - PROTOCOL: None Exists - LAST QUALIFYING VISIT IN NEPHROLOGY: 04/04/2014 - NEXT SCHEDULED VISIT IN NEPHROLOGY: 06/26/2014 - LAST REFILLED ON: 04/11/2014, QTY: 15, Refills: 2, Sig: take 1 cap by mouth three times a week. (changed) Powered by [employer], Reference: [id number], 06/09/2014 5:33:46 PM SENIOR COMMUNICATIONS ENGINEER, Pool: Celina ([id number]) OR COMMUNICATIONS ENGINEER documented in this encounter Plan of Treatment Not on filedocumented as of this encounter Visit Diagnoses Not on filedocumented in this encounter Care Teams Powerhouse Operator Relationship Specialty Start Date End Date Tiffany Gonzalez APRN, DNP PCP - General 01/16/00 02/03/16 [place] [id number] documented as of this encounter
--- OUTSIDE RECORDS SUMMARY | 2021-12-28 14:11 | XMS_ITS | Encounter Summary ---
:1965 Author Organization [employer] Address [address] [place] [address] Care Team Providers Name Role Phone Margaret Alanisah Autumn CULVER CNP Primary Care Provider [phone] Reason for Visit Reason Comments Dental Conversion [facility] EDR to [place] convers ion Encounter Details Date Type Department Care Team Description 09/24/2016 Dental Conversion Mic General Diony Burrell, [facility] DDS [address], [address] [place] [address] [place] [address] [phone] Social History Tobacco Use Types Packs/Day Years Used Date Smoking Tobacco: Every Day Cigarettes 0.5 L ast attempted to quit: 02/23/2011 Smokeless Tobacco: Never Comments: 1/2 pack per day Alcohol Use Standard Drinks/Week Comments Yes 0.8 (1 standard drink = 0.6 oz pure alco hol) rarely Sex Assigned at Date Recorded Not on file documented as of this encounter Discharge Summaries Interface, In Edr Dental Conversion - 01/09/2017 12:00 AM CDT EDR Pt Notes: ++ documented in this encounter Plan of Treatment Not on filedocumented as of this encounter Visit Diagnoses Not on filedocumented in this encounter Care Teams Lead Ruby On Rails Developer Relationship Specialty Start Date End Date Haylee Alanis, ART MANAGER, CHANCELLOR PCP - General Nurse Practitioner 02/04/16 [address], [place] [address] documented as of this encounter
--- OUTSIDE RECORDS SUMMARY | 2021-12-28 14:11 | XMS_ITS | Encounter Summary ---
:1965 Author Organization [facility] Address [address] [place] [address] Care Team Providers Name Role Phone Haylee Alanis APRN, CNP Primary Care Provider Reason for Referral Procedure/Equipment (Routine) - Incomplete Specialty Diagnoses / Procedures Referred By Contact Refer red To Contact Procedures Haylee Alanis APRN, MM Mammogram Screening Bilat SPEEDBOAT DRIVER W CAD [address] [place], [place] [address] Referral ID Status Reason Start Date Expiration Date Visits V isits Requested Authorized [id number] Incomplete 03/05/2016 06/04/2017 1 1 TRONIC TECH Reason for Visit Procedure/Equipment (Routine) - Incomplete Specialty Diagnoses / Procedures Referred By Contact Refer red To Contact Procedures Haylee Alanis APRN, MM Mammogram Screening Bilat SPEEDBOAT DRIVER W CAD [address] [place], [place] [address] Referral ID Status Reason Start Date Expiration Date Visits V isits Requested Authorized [id number] Incomplete 03/05/2016 06/04/2017 1 1 Encounter Details Date Type Department Care Team Description 03/05/2016 Imaging [facility]. au Mammography [address] [place] [address] Social History Tobacco Use Types Packs/Day Years [...] Associated Diagnosis Comme nts MM MAMMOGRAM Routine 03/05/2016 11:50 AM Results for this SCREENING BILAT W ELECTRONIC TECH procedure are in CAD the results section. documented in this encounter Results MM Mammogram Screening Bilat W CAD (03/05/2016 11:50 AM ELECTRONIC TECH) Anatomical Region Laterality Modality Breast Bilateral Mammography Specimen (Source) Anatomical Location Collection Method / Collectio n Time Received Time / Laterality Volume Impressions 03/06/2016 3:49 PM ELECTRONIC TECH : ACR BI-RADS Category 1: Negative RECOMMENDATION: Follow Up Imaging in 12 months - Bilateral The results and recommendations of this examination will be communicated to the patient. Narrative 03/06/2016 3:49 PM ELECTRONIC TECH MM MAMMOGRAM SCREENING BILAT W CAD performed on 03/05/16 Compared to: 05/15/2014 MAMMOGRAM SCREEN ING BILATERAL, 03/08/2012 MAMMOGRAM SCREENING BILATERAL, 1 MAMMOGRAM SCREENING BILATERAL FINDINGS: Bilateral screening mammogram was performed with the assistance of Computer-Aided Detection. The breasts have scattered areas of fibroglandular density. There is no radiographic evidence of mal ignancy. ?? Haylee Alanis APRN, CNP [facility] documented in this encounter Visit Diagnoses Not on filedocumented in this encounter Care Teams Refinery Operator Relationship Specialty Start Date End Date Haylee Alanis APRN, SPEEDBOAT DRIVER PCP - General Nurse Practitioner 02/04/[address] [place] [address] documented as of this encounter
--- OUTSIDE RECORDS SUMMARY | 2021-12-28 14:12 | XMS_ITS | Encounter Summary ---
:1965 Author Organization [facility] Address [address] [place] [address] Care Team Providers Name Role Phone Tiffany Gonzalez APRN, DNP Primary Care Provider [phone] Reason for Visit Procedure/Equipment (Routine) - Incomplete Specialty Diagnoses / Procedures Referred By Contact Refer red To Contact Diagnoses Dysmenorrhea Tiffany Gonzalez, Procedures OBGYN PELVIC/CARD CLEANER ULTRASOUND ([facility]) GAIL CULVER [address] [place] [address] Referral ID Status Reason Start Date Expiration Date Visits V isits Requested Authorized [id number] Incomplete 08/28/2013 1 1 Encounter Details Date Type Department Care Team Description 10/24/2013 Office Visit [facility] resource analyst Ultra sound Dysmenorrhea; [address] [facility] [place] [address] Social History Tobacco Use Types Packs/Day Years [...] Name Priority Date/Time Associated Diagnosis Comme nts COMPLETE BLOOD Routine 10/24/2013 1:53 PM Abnormal uterine Res ults for this COUNT-NO DIFF CDT bleeding procedure are in the results section. OBGYN PELVIC/CARD CLEANER Routine 10/24/2013 11:39 Dysmenorrhea Results for this ULTRASOUND AM CDT procedure are i n the results section. documented in this encounter Results (ABNORMAL) HEMOGRAM/PLTS (10/24/2013 1:53 PM CDT) P athologist Signature WBC 8.9 4.0 - 11.0 [facility]ul [facility] RBC 3.91 (L) 4.0 - 5.2 [facility] M[facility] Hemoglobin 12.0 12.0 - [facility] 16.0 g/dl [facility] HCT 36.2 36.0 - [facility] 46.0 % [facility] MCV 92.6 80 - 100 [facility] fl [facility] MCH 30.7 26 - 34 pg [facility] MCHC 33.1 32 - 36 [facility] g[facility]dl [facility] RDW 13.5 11.5 - [facility] 14.5 % [facility] Platelets 272 150 - 450 [facility] Specimen Anatomical Collection Method Collection Time Receive d Time (Source) Location / / Volume Laterality 10/24/2013 1:53 PM 4 2:08 CDT PM CDT Narrative [facility] - 10/24/2013 6:59 PM C DT Performed at [facility], [address] [place] [id number] Dawna Mccullough MD LAB_1 Performing Organization Address City/State/ZIP Code Phon e Number [facility] [phone] OBGYN PELVIC/CARD CLEANER ULTRASOUND ([facility]) (10/24/2013 11:39 AM CDT) Anatomical Region Laterality Modality Pelvis Ultrasound Specimen (Source) Anatomical Location Collection Method / Collectio n Time Received Time / Laterality Volume Narrative 10/24/2013 11:49 AM CDT CARD CLEANER Ultrasound Exam performed on: ??10/24/2013 Referring provider: Tiffnay Gonzalez Referring clinic: ??[facility] Clinical indications: abnormal bleeding LMP: ??10/16/13 [place] Winder And Oiler(s) initials: SN The pelvic organs are imaged using: both transvaginal and transabdominal transducers to better visualize the pelv ic anatomy. Today's ultrasound was compared to previ ous report from: CT 5/7/14 (rt adx cyst) Measurements and comments Uterus: Longitudinal AP Transverse 9.6 5.6 5.6 cm Position: ??anteverted Comments: ??irregular Cervix and lower uterine segment are: No rmal Myometrium: heterogeneous Myomata: Location Longitudinal AP Transverse ?? Posterior 3.3 3.0 3.4 cm subserosal Saline infusion sonohysterogram: no Endometrium: 9.9 mm, 1.5 x 0.6 x 1.2cm e chogenic area seen within the cavity. ??Blood flow feeder vessel see n in this area. ??Appearance is suggestive of an endometrial polyp. ??. Right ovary: Longitudinal AP Transverse 2.6 1.7 2.3 cm Comments: appears normal Left ovary: Longitudinal AP Transverse 1.9 1.8 1.7 cm Comments: appears normal Adnexa: ??no masses seen Peritoneal fluid: absent Other procedures done: none Impression: Uterus shows presence of a fibroid on th e posterior wall which is subserosal in location and measures 3.3 cm x 3.0 cm x 3.4 cm. ??This does not close to the endometrial cavity. Endometrial cavity shows presence of an endometrial polyp measuring 1.5 cm x 0.6 cm x 1.2 cm. ??This appears to be in the mid cavity. ?? Endometrial lining appears normal. Right ovary appears normal. Left ovary appears normal. No adnexal masses seen. Plan: These findings were reviewed with the patient. She will follow up with her referring provider. Wolf Millard Tiffany Gonzalez APRN, DNP [facility] documented in this encounter Visit Diagnoses Diagnosis Dysmenorrhea Abnormal uterine bleeding Unspecified disorder of menstruation and other abnormal bleeding from female genital tract documented in this encounter Care Teams Spout Positioner Relationship Specialty Start Date End Date Tiffany Gonzalez APRN, GAIL PCP - General 01/16/00 02/03/16 [place] [id number] documented as of this encounter
--- OUTSIDE RECORDS SUMMARY | 2021-12-28 14:12 | XMS_ITS | Encounter Summary ---
:1965 Author Organization [facility] Address [address] [place] [address] Care Team Providers Name Role Phone Haylee Alanis APRN, CNP Primary Care Provider [phone] Encounter Details Date Type Department Care Team Description 08/23/2013 Emergency Room External to [facility] External, Provid er RT SIDED FLANK AND BACK No address [place] [address] Social History Tobacco Use Types Packs/Day Years Used Date Smoking Tobacco: Former Cigarettes 0.5 Quit : 02/23/2011 Smokeless Tobacco: Never Comments: Restarted 12/2005; prior to janice t stopped for 8 months Alcohol Use Standard Drinks/Week Comments Yes 0.8 (1 standard drink = 0.6 oz pure alco hol) rarely Sex Assigned at Date Recorded Not on file documented as of this encounter Plan of Treatment Not on filedocumented as of this encounter Visit Diagnoses Not on filedocumented in this encounter Care Teams Bung Dropper Relationship Specialty Start Date End Date Haylee Alanis APRN, FLOOR SERVICE WORKER [place] PCP - General Nurse Practitioner 02/04/[address] [place] [address] documented as of this encounter
--- OUTSIDE RECORDS SUMMARY | 2021-12-28 14:12 | XMS_ITS | Encounter Summary ---
:1965 Author Organization [employer] Address [address] [place] [address] Care Team Providers Name Role Phone Tiffany Gonzalez APRN, GAIL Primary Care Provider + [phone] Reason for Visit Reason Comments Consult, New Patient Consult/Transfer Care (Routine) - Closed Specialty Diagnoses / Procedures Referred By Contact Refer red To Contact Diagnoses Hematuria Tiffany Gonzalez APRN, DNP [address] [place] [address] Referral ID Status Reason Start Date Expiration Date Visits Requ ested Visits Authorized [id number] Closed 08/28/2013 11/27/2014 1 1 Encounter Details Date Type Department Care Team Description 09/26/2013 Office Visit [facility] Micaela Martin Chronic kidney disease, stag e IV (severe) (Primary Dx); [address] MD Autosomal dominant polycystic kidney dis ease; [place], [place] [address] Other second dionicio hypertension, benign; [address] [address] Hypercholesterolemia with hyperglyceride marilee; [phone] [place], [place] Anemia, unspe cified [id number] Social History Tobacco Use Types Packs/Day Years [...] Sign Reading Time Taken Comments Blood Pressure 114/69 09/26/2013 11:01 AM CDT Pulse 66 09/26/2013 11:01 AM CDT Temperature - - Respiratory Rate - - Oxygen Saturation - - Inhaled Oxygen Concentration - - Weight - - Height - - Body Mass Index - - documented in this encounter Patient Instructions Patient InstructionsMicaela Martin MD - 09/26/2013 11:43 AM CDT 5 STAGES OF KIDNEY DISEASE DEFINED BY THE NATIONAL KID[facility] FOUNDATION: Stage Description GFR (% of kidney function) Action 1 Kidney damage with normal GFR Over 90 Diagnosis and Treatment 2 Mild Reduction 60-89 Treat to preserve function 3 Moderate Reduction 30-59 Treat to preserve function 4 Severe Reduction 15-29 Transplant when GFR is below 20 5 Kidney Failure Below 15 Kidney transplant Dialysis YOU HAVE KIDNEY DISEASE STAGE 4 (Estimated % kidney function 26%) Goals for best management of your kidney disease include: ?? Participate in Kidney Education program: ?? Dialysis and Kidney Transplant education class with Nurse Practitioner. ?? Kidney diet education class with Dietitian ?? Kidney medication class with Pharmacist ?? Prepare for kidney transplantation if desired ?? You may be eligible for transplant or to be on the transplant list when the GFR is below 20. ?? Control blood pressure below 130/80 ?? Follow low salt diet ?? Include an TOYA Inhibitor or ARB (angiotensin receptor bridget) as prescribed by your physician ifyou have protein in your urine. ?? Control cholesterol: LDL (bad cholesterol) below 100, or below 75 if diabetic. CHOLESTEROL (mg/dl) Date Value 06/24/2013 174 04/05/2001 260* HDL (mg/dl) Date Value 06/24/2013 36* LDL, CALC. (mg/dl) Date Value 06/24/2013 109 TRIGLYCERIDE (mg/dl) Date Value 06/24/2013 146 07/05/2008 131 ?? Medication (TOYA Inhibitor or ARB) to lower protein in the urine as prescribed by your physician. (may help to protect kidneys) ?? Keep Hgb (hemoglobin) between 10-12 grams with oral iron and epoetin(EPO) or darbepoetin (Aranesp) if hgb < 10. ?? Keep bones strong ?? Low phosphorus (dairy products) diet ?? Monitor 25 OH Vitamin D3 (vitamin D level) yearly ?? Protect your kidneys ?? Inform all health care providers that you have kidney disease (including dentists, chiropractors,accupuncturists, etc). ?? Discuss any new vfrb-ukf-lddcmoe, herbal, or prescribed medications with your health care provider before starting therapy. ?? Do not take Indocin, ibuprofen, Motrin, Advil, naproxen, Aleve, Naprosyn, or any other non-steroidal antiinflammatory drugs (NSAID's). ?? Do not take aspirin unless prescribed by your provider. ?? Use acetaminophen (Tylenol) for pain. Notify a provider if pain is not controlled. ?? Do not receive any intravenous dye for x-ray procedures until you discuss with your Radar Mechanic and take a medicine to prevent kidney damage ?? Do not use Fleets (sodium phospate) solutions or enemas to clean the colon from constipation or colonoscopy Kidney Education websites: www.aakp.org ([place] Association of Kidney Patients) www.kidney.org (National Kidney Foundation) www.kidneydirections.Parents Journey (Stay In Touch Program- Education by [employer]) www.pkdcure.org (for patient's with Polycystic Kidney Disease) www.nkfkls.org (National Kidney Foundation- Kidney Learning System or ) To Do: 1. Move lisinopril to pm. 2. Monitor bp, and if bp < 120, reduce lisinopril to 10 mg in pm. You may need less or no carvedilol if your cyst problem resolves. 3. Start ferrous gluconate 324 mg daily. 4. Fiber if constipated. 5. Limit phosphorus to 1000 mg daily. 6. Follow up in 6 months with Lisa Patrick for CKD education. Follow up with Dr Martin in 1 year, unless something new comes up. 7. Consider education sessions for chronic kidney disease. 8. Fill out [employer] [place] if you can. 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 9. Try to be more physically active. Start 30 min 3 times weekly and build up. Micaela Martin MD 09/26/2013, 12:13 PM documented in this encounter Progress Notes Micaela Martin MD - 09/26/2013 1:01 PM CDT Nephrology New Patient Consult Visit DATE OF SERVICE: 09/26/2013 NAME OF REQUESTING PHYSICIAN: Tiffany Gonzalez REASON FOR CONSULTATION: Evaluate PCKD pt. HISTORY OF PRESENTING ILLNESS/ASSESSMENT- dictated. RECOMMENDATIONS 5 STAGES OF KIDNEY DISEASE DEFINED BY THE NATIONAL K[facility]: Stage Description GFR (% of kidney function) Action 1 Kidney damage with normal GFR Over 90 Diagnosis and Treatment 2 Mild Reduction 60-89 Treat to preserve function 3 Moderate Reduction 30-59 Treat to preserve function 4 Severe Reduction 15-29 Transplant when GFR is below 20 5 Kidney Failure Below 15 Kidney transplant Dialysis YOU HAVE KIDNEY DISEASE STAGE 4 (Estimated % kidney function 26%) Goals for best management of your kidney disease include: ?? Participate in Kidney Education program: ?? Dialysis and Kidney Transplant education class with Nurse Practitioner. ?? Kidney diet education class with Dietitian ?? Kidney medication class with Pharmacist ?? Prepare for kidney transplantation if desired ?? You may be eligible for transplant or to be on the transplant list when the GFR is below 20. ?? Control blood pressure below 130/80 ?? Follow low salt diet ?? Include an TOYA Inhibitor or ARB (angiotensin receptor bridget) as prescribed by your physician ifyou have protein in your urine. ?? Control cholesterol: LDL (bad cholesterol) below 100, or below 75 if diabetic. CHOLESTEROL (mg/dl) Date Value 06/24/2013 174 04/05/2001 260* HDL (mg/dl) Date Value 06/24/2013 36* LDL, CALC. (mg/dl) Date Value 06/24/2013 109 TRIGLYCERIDE (mg/dl) Date Value 06/24/2013 146 07/05/2008 131 ?? Medication (TOYA Inhibitor or ARB) to lower protein in the urine as prescribed by your physician. (may help to protect kidneys) ?? Keep Hgb (hemoglobin) between 10-12 grams with oral iron and epoetin(EPO) or darbepoetin (Aranesp) if hgb < 10. ?? Keep bones strong ?? Low phosphorus (dairy products) diet ?? Monitor 25 OH Vitamin D3 (vitamin D level) yearly ?? Protect your kidneys ?? Inform all health care providers that you have kidney disease (including dentists, chiropractors,accupuncturists, etc). ?? Discuss any new qsmq-dag-saubhai, herbal, or prescribed medications with your health care provider before starting therapy. ?? Do not take Indocin, ibuprofen, Motrin, Advil, naproxen, Aleve, Naprosyn, or any other non-steroidal antiinflammatory drugs (NSAID's). ?? Do not take aspirin unless prescribed by your provider. ?? Use acetaminophen (Tylenol) for pain. Notify a provider if pain is not controlled. ?? Do not receive any intravenous dye for x-ray procedures until you discuss with your Radar Mechanic and take a medicine to prevent kidney damage ?? Do not use Fleets (sodium phospate) solutions or enemas to clean the colon from constipation or colonoscopy Kidney Education websites: www.aakp.org ([place] Association of Kidney Patients) www.kidney.org (National Kidney Foundation) www.kidneydirectABS.Parents Journey (Stay In Touch Program- Education by [employer]) www.pkdcure.org (for patient's with Polycystic Kidney Disease) www.nkfkls.org (National Kidney Foundation- Kidney Learning System or ) To Do: 1. Move lisinopril to pm. 2. Monitor bp, and if bp < 120, reduce lisinopril to 10 mg in pm. You may need less or no carvedilol if your cyst problem resolves. 3. Start ferrous gluconate 324 mg daily. 4. Fiber if constipated. 5. Limit phosphorus to 1000 mg daily. 6. Follow up in 6 months with Lisa Patrick for CKD education. Follow up with Dr Martin in 1 year, unless something new comes up. 7. Consider education sessions for chronic kidney disease. 8. Fill out [employer] [place] if you can. 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 9. Try to be more physically active. Start 30 min 3 times weekly and build up. Micaela Martin MD 09/26/2013, 1:02 PM See additional note below. PAST MEDICAL HISTORY: Past Medical History Diagnosis Date ??? HYPERTENSION NOS 06/01/2003 ??? VARICELLA UNCOMPLICATED ??? Reflux esophagitis ??? POLYCYSTIC KIDNEY, UNSPEC ??? ALLERGIC RHINITIS NOS ??? ASTHMA, UNSPECIFIED ??? Hypercholesterolemia with hyperglyceridemia ??? Tobacco use disorder ??? PMDD (premenstrual dysphoric disorder) on Celexa ??? ENDOMETRIAL POLYP ??? Migraine without aura, without mention of intractable migraine without mention of status migrainosus onset in childhood ??? Snoring Patient Active Problem List Diagnosis ??? VARICELLA UNCOMPLICATED ??? REFLUX ESOPHAGITIS ??? POLYCYSTIC KIDNEY, UNSPEC ??? HYPERTENSION NOS ??? ALLERGIC RHINITIS NOS ??? Hypercholesterolemia with Hyperglyceridemia ??? PMDD (Premenstrual Dysphoric Disorder) ??? Obstructive sleep apnea (adult) (pediatric) ??? Mild persistent asthma ??? Family history of breast cancer in first degree relative ??? Autosomal dominant polycystic kidney disease PAST SURGICAL HISTORY : has past surgical history that includes hysteroscpy surg; w/bx &/ polypect (03/31/04) and appendectomy (04-07-2010). ALLERGIES: is allergic to amoxicillin; neomycin; and penicillins. FAMILY HISTORY: family history includes Cancer, Breast in her father and mother; Cancer,Melanoma in her father; Depression in her mother, brother, and other; and Kidney Disorder in her father.(PCKD) SOCIAL HISTORY: reports that she has been smoking Cigarettes. She has been smoking about 0.50 packs per day. She has never used smokeless tobacco. She reports that she drinks about 0.5 ounces of alcohol per week. She reports that she does not use illicit drugs.Has partner. Has adopted 6 children. Lives in [place]. 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 MEDICATIONS: Current Outpatient Prescriptions Medication Sig ??? acetaminophen (TYLENOL EXTRA STRENGTH) 500 MG tablet Take 500-1,000 mg by mouth every 4 hours asneeded. ??? ALBUterol 2.5 mg/3 mL, 0.083%, nebulizer solution Inhale 3 mL by mouth 4 times a day as needed for Wheezing or Shortness of Breath. ??? rbmdzra-cqogvubwjtcnv-dszzljtg (EXCEDRIN MIGRAINE) 250-250-65 MG tablet Take 1 Tab by mouth every 6 hours as needed. ??? beclomethasone (QVAR) 80 MCG/ACT inhaler Inhale 1 Puff by mouth two times a day. Rinse mouth after use ??? carvedilol (AKA COREG) 12.5 MG tablet Take 1 Tab by mouth [...] Take 1 Tab by mouth daily. ??? loratadine (KLS ALLERCLEAR) 10 MG tablet [...] TABS 2 tablets daily in cold season REVIEW OF SYSTEMS: A complete review of systems has been performed and is negative except as mentioned in HPI. PHYSICAL EXAM: She is alert, awake, oriented x3 in no apparent distress. Overweight. BP 114/69 Pulse 66 LMP 08/25/2013 Head is atraumatic, normocephalic. ENT: Oral mucosa is moist. Numerous fillings, but teeth well repaired Eyes pupils are reactive to light. No AV nicking Neck is supple. No JVD. Lungs clear to auscultation bilaterally. CVS: S1, S2 is normal. No rub or gallop. Abdomen is soft, nontender. Obese, palpable kidneys bilat, nontender Extremities show no pitting edema. No clubbing or cyanosis. Skin shows no rashes. STAFF TOXICOLOGIST: Non-focal. LABS: Last Chem10 results: Lab Results Component Value Date/Time SODIUM 140 08/30/2013 11:35 AM K 4.9 08/30/2013 11:35 AM CHLORIDE 105 08/30/2013 11:35 AM CO2 25 08/30/2013 11:35 AM BUN 21* 08/30/2013 11:35 AM CREATININE 2.10* 09/25/2013 7:03 AM GLUCOSE 83 08/30/2013 11:35 AM GLUCOSE 82 06/24/2013 11:18 AM CA 8.8 08/30/2013 11:35 AM ANIONGAP 10 08/30/2013 11:35 AM MG 2.0 06/17/2005 9:16 AM Last CBC/no differential result Lab Results Component Value Date/Time WBC 7.8 08/28/2013 10:29 AM RBC 3.75* 08/28/2013 10:29 AM HGB 11.9* 08/28/2013 10:29 AM HCT 34.7* 08/28/2013 10:29 AM MCV 93.0 08/28/2013 10:29 AM MCH 31.7 08/28/2013 10:29 AM MCHC 34.2 08/28/2013 10:29 AM PLTS 317 08/28/2013 10:29 AM RDW 12.2 08/28/2013 10:29 AM Micaela Martin MD 09/26/2013, 1:02 PM Micaela Martin MD - 09/26/2013 12:00 AM CDT DATE OF SERVICE: 09/26/2013 HISTORY OF PRESENT ILLNESS: The patient is here for evaluation of her polycystic kidney disease withchronic kidney disease stage IV. She previously was seen with Dr. Davi Esparza as late as 2004. Subsequently, she was enrolled in a tolvaptan study through the [facility] and had been seen there every6 months by Dr. Sepulveda. That study is concluded, the patient is seeking regular nephrology followup.The patient's creatinine level has gradually increased from 1.4 back in 2004 to 2.1 as of 09/25/2013. She has a history of hypertension and her blood pressure, more recently, had not been well controlled. She previously had been on lisinopril 40 mg daily alone. A month ago she had bleeding into one ofher renal cysts with significant gross hematuria and a decrease in her hemoglobin from mdidhheqwqfzz33.2 to 11.6. She was hospitalized overnight at the [facility]. She has had problems with renal cystic bleeding, though much milder in the past. Generally, she would have some flank pain, which resolved when this cyst ruptured and she would have some pink urine, lasting a day or two. She presently does not have much pain, though her blood pressure had been increased and Dr. Sepulveda at [facility] started carvedilol 12.5 mg b.i.d. with her lisinopril 20 mg daily. As her blood pressures have fallen, she is now taking lisinopril 20 mg daily with the carvedilol. Blood pressures at home have been approximately 110/60 as of late, however. She denies feeling lightheaded or dizzy. She has hypercholesterolemia and is taking simvastatin 20 mg at bedtime with her last LDL cholesterol being 109. She also has exercise-induced asthma, but has no problems with breathing since carvedilol. She continues to smoke approximately a 1/2 pack per day. She has never passed a kidney stone and does not have problems with urinary tract infections. She also has sleep apnea and is wearing a CPAP mask 8 hours a day. She does not consistently feel rested, in fact, is tired most of the time. She has not had followupwith Dr. Fletcher, in sleep medicine, for at least the last year. REVIEW OF SYSTEMS: Notable for nocturia x2 and frequent urination. She does try to at least drink 2 liters of water a day; however. She does complain of stiff and sore joints in her neck and shoulders.She has headaches about two times per month and takes an NSAID to relieve the pain. She has no othermedications to abort migraines. The patient's father was on dialysis and had a transplant for 23 years from the patient's brother. She has one sister, age 51, who has not been assessed for polycystic kidney disease, though she has nohypertension and it was presumed she does not have the disorder. That would be the patient's potential kidney donor. ASSESSMENT: 1. CKD stage IV secondary to autosomal dominant polycystic kidney disease. Renal function is gradually decreasing. The patient has fatigue, and it is unclear whether this is from her sleep apnea that is not adequately treated or her CKD. Given that she generally does not feel rested in the morning, itis burris for her to return to sleep medicine. She does have a potential kidney donor in her sister. She will be referred for transplant evaluation with GFR less than 20 mL per minute. 2. Hypertension secondary to polycystic kidney disease. Blood pressure may be overly controlled. Fany had problems with intermittent hyperkalemia and needs to restrict her potassium in her diet. Potentially she may only need lisinopril 10 mg daily. Blood pressure control was likely worsened with her recent cyst rupture and bleed. 3. Anemia from chronic kidney disease and also recent bleeding. She is not on any oral iron. 4. Hypercholesterolemia, on simvastatin. LDL is close to target. 5. Bone health. Has not been instructed on low phosphorus diet. We did so briefly below. Would hesitate to giving her a calcium supplement due to propensity for stone formation and polycystic kidney disease. 6. Overweight. Would benefit from increased physical activity, especially to avoid potential for post transplant diabetes mellitus. 7. Migraine headaches and using NSAIDs. She needs a different form of treatment of this to avoid NSAIDs. See note below. Micaela Martin MD ALR:christopher Dictated: 09/26/2013 13:14:44 Transcribed: 09/28/2013 00:17:45 Job: [id number] Doc: [id number] cc: Tiffany Gonzalez, CAMILA, DNP, Referring Provider documented in this encounter Plan of Treatment Not on filedocumented as of this encounter Visit Diagnoses Diagnosis Chronic kidney disease, stage IV (severe ) (HRC) - Primary Chronic kidney disease, Stage IV (severe ) Autosomal dominant polycystic kidney dis ease Polycystic kidney, autosomal dominant Other secondary hypertension, benign (HR C) Other secondary hypertension, benign Hypercholesterolemia with hyperglyceride marilee (HRC) Mixed hyperlipidemia Anemia, unspecified documented in this encounter Care Teams Interactive Video Technician Relationship Specialty Start Date End Date Tiffany Gonzalez, SUPPLY CRIB ATTENDANT, DNP PCP - General 01/16/00 02/03/16 [address] [place] [id number] documented as of this encounter
--- OUTSIDE RECORDS SUMMARY | 2021-12-28 14:12 | XMS_ITS | Encounter Summary ---
:1965 Author Organization [id number] Address [address] [place] [address] Care Team Providers Name Role Phone Tiffany Gonzalez APRN, DNP Primary Care Provider Encounter Details Date Type Department Care Team Description 08/30/2013 Orders Only [facility] Hematuri a; Laboratory Autosomal dominant polycysti c kidney disease [address] [place] [address] Social History Tobacco Use Types Packs/Day Years [...] Name Priority Date/Time Associated Diagnosis Comme nts BASIC METABOLIC Routine 08/30/2013 11:35 AM Hematuria Results for this PANEL CDT Autosomal dominant procedure are in polycystic kidney the result s disease section. documented in this encounter Results (ABNORMAL) BASIC METABOLIC PANEL (08/30/2013 11:35 AM CDT) [facility] Method Time Signature Sodium 140 135 - 145 [facility] mmol/L [facility] Potassium 4.9 3.5 - 5.3 [facility]/L [facility] Chloride 105 95 - 106 [facility]/L [facility] CO2 25 22 - 30 [facility]/L [facility] Anion Gap 10 7 - 16 [facility] (calc.) mmol/L [facility] Glucose 83 70 - 180 [facility] mg/dl [facility] Calcium 8.8 8.4 - [facility] 10.2 [facility] mg/dl BUN 21 (H) 7 - 20 [facility] mg/dl [facility] Creatinine 2.05 (H) 0.52 - [facility] 1.04 [facility] mg/dl GFR, Estimated 25.7 (L) >60 [facility] ml/min/1. [facility] 73m2 GFR, Est., If 31.1 (L) >60 [facility] Black ml/min/1. [facility] 73m2 Specimen Anatomical Collection Method Collection Time Receive d Time (Source) Location / / Volume Laterality 08/30/2013 11:35 08/30/2013 AM CDT 11:37 AM CDT Narrative [facility] - 08/30/2013 4:07 PM C DT Performed at [facility], [address] [place] [address] ??[id number] Tiffany Gonzalez APRN, DNP LAB_1 Performing Organization Address City/State/[facility] Code Phon e Number [facility] [phone] documented in this encounter Visit Diagnoses Diagnosis Hematuria Autosomal dominant polycystic kidney dis ease Polycystic kidney, autosomal dominant documented in this encounter Care Teams Pharmacist Relationship Specialty Start Date End Date Tiffany Gonzalez APRN, DNP PCP - General 01/16/00 02/03/16 [address] [id number] documented as of this encounter
--- OUTSIDE RECORDS SUMMARY | 2021-12-28 14:12 | XMS_ITS | Encounter Summary ---
:1965 Author Organization [employer] Address [address] [place] [address] Care Team Providers Name Role Phone Tiffany Gonzalez APRN, DNP Primary Care Provider Encounter Details Date Type Department Care Team Description 12/06/2013 Notes/Orders Specialty Center [address] [facility] Hand [facility] SALLY RodriguezR/L [address] [place], [place] [id number] Social History Tobacco Use Types Packs/Day Years Used Date Smoking Tobacco: Every Day Cigarettes 0.5 L ast attempted to quit: 02/23/2011 Smokeless Tobacco: Never Comments: 1/2 pack per day Alcohol Use Standard Drinks/Week Comments Yes 0.8 (1 standard drink = 0.6 oz pure alco hol) rarely Sex Assigned at Date Recorded Not on file documented as of this encounter Nursing Notes Selene Dickinson OTR/Michael - 12/06/2013 6:07 PM CDT HAND OCCUPATIONAL THERAPY DISCHARGE NOTE Stephanie Norman [id number] 12/06/2013 Stephanie Norman has not attended Occupational Therapy since 2012, and there are no further visits scheduled at this time. Stephanie Norman is currently considered discharged from Occupational Therapy. Please see previous visit documentation for status at last treatment. Thank you for this referral.Please contact us if we can be of any assistance. NIMISHA Ochoa/L, CHT, CLT [phone] documented in this encounter Plan of Treatment Not on filedocumented as of this encounter Visit Diagnoses Not on filedocumented in this encounter Care Teams Homeworker Relationship Specialty Start Date End Date Tiffany Gonzalez APRN, DNP PCP - General 01/16/00 02/03/16 [address] [place] [id number] documented as of this encounter
--- OUTSIDE RECORDS SUMMARY | 2021-12-28 14:12 | XMS_ITS | Encounter Summary ---
:1965 Author Organization [id number] Address [address] [place] [address] Care Team Providers Name Role Phone Tiffany Gonzalez APRN, GAIL Primary Care Provider [phone] Encounter Details Date Type Department Care Team Description 08/23/2013 Orders Only External to Obey Gonzalez, KNOCKOUT WORKER, DNP [address] [place] [address] (Wo rk) Social History Tobacco Use [...] Name Priority Date/Time Associated Diagnosis Comme nts SCANNED LAB 08/23/2013 12:00 AM Results for this CDT procedure are i n the results section . documented in this encounter Results SCANNED LAB (08/23/2013 12:00 AM CDT) Specimen (Source) Anatomical Location Collection Method / Collectio n Time Received Time / Laterality Volume 08/23/2013 Narrative This result has an attachment that is no t available. LAB_1 documented in this encounter Visit Diagnoses Not on filedocumented in this encounter Care Teams Allergist/Pediatric Pulmonologist Relationship Specialty Start Date End Date Tiffany Gonzalez APRN, DNP PCP - General 01/16/00 02/03/16 [address] [place] [id number] documented as of this encounter
--- OUTSIDE RECORDS SUMMARY | 2021-12-28 14:12 | XMS_ITS | Encounter Summary ---
:1965 Author Organization [facility] Address [address] [place] [address] Care Team Providers Name Role Phone Tiffany Gonzalez APRN, DNP Primary Care Provider Reason for Visit Reason Onset Date Comments PRE-OP EXAM 12/06/2013 Encounter Details Date Type Department Care Team Description 12/06/2013 Telephone [facility] Tiffany Gonzalez, PRE-OP EXAM [address] [place] [address] 601 [facility] [phone] [place] [id number] (Wo rk) Social History Tobacco Use Types Packs/Day Years Used Date Smoking Tobacco: Every Day Cigarettes 0.5 L ast attempted to quit: 02/23/2011 Smokeless Tobacco: Never Comments: 1/2 pack per day Alcohol Use Standard Drinks/Week Comments Yes 0.8 (1 standard drink = 0.6 oz pure alco hol) rarely Sex Assigned at Date Recorded Not on file documented as of this encounter Nursing Notes Kim Lu - 12/06/2013 4:02 PM CDT Visit type corrected and lm asking pt if this will be same day surgery if not please schedule with MD. Carlos Alberto Tsang - 12/06/2013 2:47 PM CDT Pt direct booked an online appt for pre op exam 12/21/13 and used incorrect visit type. documented in this encounter Plan of Treatment Not on filedocumented as of this encounter Visit Diagnoses Not on filedocumented in this encounter Care Teams Wire Rope Fabrication Supervisor Relationship Specialty Start Date End Date Tiffany Gonzalez APRN, DNP PCP - General 01/16/00 02/03/16 [address] [place] [id number] documented as of this encounter
--- OUTSIDE RECORDS SUMMARY | 2021-12-28 14:12 | XMS_ITS | Encounter Summary ---
:1965 Author Organization [facility] Address [address] [place] [address] Care Team Providers Name Role Phone Tiffany Gonzalez APRN, DNP Primary Care Provider Encounter Details Date Type Department Care Team Description 07/31/2013 Orders Only External to [facility] No Primary/Referring, Phy Social History Tobacco Use Types Packs/Day Years [...] Date/Time Associated Diagnosis Comme nts SCANNED LAB 07/31/2013 12:00 AM Results for this CDT procedure are i n the results section . documented in this encounter Results [facility] (07/31/2013 12:00 AM CDT) Specimen (Source) Anatomical Location Collection Method / Collectio n Time Received Time / Laterality Volume 07/31/2013 Narrative This result has an attachment that is no t available. Phy No Primary/Referring LAB_1 documented in this encounter Visit Diagnoses Not on filedocumented in this encounter Care Teams Store Facility Technician Relationship Specialty Start Date End Date Tiffany Gonzalez APRN, DNP PCP - General 01/16/00 02/03/16 [address], [place] [address] documented as of this encounter
--- OUTSIDE RECORDS SUMMARY | 2021-12-28 14:12 | XMS_ITS | Encounter Summary ---
:1965 Author [facility] Address [address] [place] [address] Care Team Providers Name Role Phone Tiffany Gonzalez APRN, DNP Primary Care Provider Reason for Visit Auth/Cert - Closed Specialty Diagnoses / Procedures Referred By Contact Refer red To Contact Diagnoses Endometrial polyp . Referral ID Status Reason Start Date Expiration Date Visits Requ ested Visits Authorized [id number] Closed 1 1 Encounter Details Date Type Department Care Team Description 01/02/2014 Anesthesia Event [facility] Same Day Freddy Kerns MD [address] [place] [address] Surgery Center Victorina Quiroz MD [address] [place] [address] [place] [address] Anesthesia Record Procedure Summary Procedure Name Responsible Anesthesia Start Anesthesia Stop Anesthesiologist Time Time DILATATION AND Freddy Kerns MD 01/02/14 1223 01/02/14 1305 CURETTAGE WITH HYSTEROSCOPY, REMOVAL OF POLYP Events Date Time Event Comment 01/02/2014 1223 1223 An Start 1227 An Start Data 1230 An Oxygen Mask Spontaneous res pirations with adequate air exc hange. 1241 An Local Anesthetic By Surgeon 1300 an stop data 1305 Care Handoff Note Airway patent . Vital signs stable. Condition unchan ged. Report given according to mac icy and procedure. 1305 An Stop Care transferred . 1428 AN Close Name Total midazolam 2 mg/2 mL injection (aka VERSED) 2 mg FENTanyl injection (aka SUBLIMAZE) 2 mL propofol 10 mg/mL for procedural sedation (aka diPRIva n) 40 mg propofol 10 mg/mL for procedural sedation (aka diPRIva n) 279.83 mg glycopyrrolate injection (aka ROBINUL) 0.2 mg ondansetron injection (aka ZOFRAN) 4 mg lactated ringer infusion 400 mL Agents Name O2 Blood No blood administrations on file. Lines, Drains, and Airways Type Details Placement Removal Peripheral IV Placement Date: 01/02/14 1108 by 01/02/14 1348 b y 01/02/14; Placement Domingo Chaudhary, ANGELIKA mir, Elisabeth Still, ANGELIKA Time: 1108; Pre-existing: No; Inserted by?: RN; Size (Gauge): 20 G; Orientation: Right; Location: Hand; Site Prep: Chlorhexidine; Local Anesthetic: None; Insertion attempts: 1; Blood draw with insertion?: no; Patient Tolerance: Tolerated well; Removal Date: 01/02/14; Removal Time: 1348; Removal Reason: Patient discharged; Catheter Tip: Intact Incision/Surgical Site 01/02/14; 1306; Other 01/02/14 1306 by 1613 by Poonam, (Comment) (uterus); Elisabeth Lyons Discontin ue (internal); 01/05/14; RN 1613 documented in this encounter Social History Tobacco Use Types Packs/Day Years Used Date Smoking Tobacco: Every Day Cigarettes 0.5 L ast attempted to quit: 02/23/2011 Smokeless Tobacco: Never Comments: 1/2 pack per day Alcohol Use Standard Drinks/Week Comments Yes 0.8 (1 standard drink = 0.6 oz pure alco hol) rarely Sex Assigned at Date Recorded Not on file documented as of this encounter Miscellaneous Notes Anesthesia Postprocedure Evaluation - Freddy Kerns MD - 01/02/2014 2:28 PM CDT [facility] Anesthesia Post-op Note Patient: Stephanie Norman Post-Op Diagnosis: Endometrial polyp Procedure Performed: Procedure(s): DILATATION AND CURETTAGE WITH HYSTEROSCOPY, REMOVAL OF POLYP Anesthesia type: MAC Patient location: Phase II Post-op pain control: Satisfactory PONV: None Cardiovascular Function: Satisfactory Post-op Hydration: Satisfactory Respiratory Function: Satisfactory Airway Patency: Patent Post-op vital signs: BP 136/87 Pulse 58 Temp(Src) 97.7 ??F (36.5 ??C) (Oral) Resp 18 Ht 5' 6 (1.676 m) Wt 105.235 kg (232 lb) BMI 37.46 kg/m2 SpO2 95% Pain Score: Pain Rating: Rest: 5 Pain Rating: Activity: (not recorded) Level of consciousness: Awake Patient participates in evaluation: Mental status recovered: Yes Complications: No apparent anesthetic complications Post-op assessment: Patient tolerated procedure well Freddy Kerns MD 01/02/2014 2:28 PM Anesthesia Preprocedure Evaluation - Freddy Kerns MD - 01/02/2014 11:57 AM CDT [facility] Anesthesia Pre-op Evaluation Procedure: Procedure(s): DILATATION AND CURETTAGE WITH HYSTEROSCOPY, REMOVAL OF POLYP HPI: 48 yr old female with Endometrial polyp NPO Status: Last Fluid Intake Time: 0000 Last Fluid Intake Date: 01/02/14 Last Food Intake Date: 01/02/14 Last Food Intake Time: 0000 Allergies Allergen Reactions ??? Amoxicillin ??? Neomycin topical sensitization ??? Penicillins Past Medical History Diagnosis Date ??? HYPERTENSION [...] ??? Chronic kidney disease, stage IV (severe) ROS: GERD: Yes Smoking:Yes ETOH: No Recent URI: No Past Surgical History Procedure Laterality Date ? ? Hysteroscpy surg; w/bx &/ polypect 03/31/04 ??? Appendectomy 04-07-2010 Personal/Family History of Previous Anesthetic Complications: No Outpatient Prescriptions Marked as Taking for the 01/02/14 encounter (Hospital Encounter) Medication Sig Dispense Refill ??? carvedilol (AKA COREG) 12.5 MG tablet Take 1 Tab by mouth two times a day. 180 Tab 12 ??? cholecalciferol (AKA VITAMIN D3) 1000 UNITS capsule Take 1 Cap by mouth daily. ??? citalopram (AKA CELEXA) 40 MG tablet Take 1 Tab by mouth daily. 90 Tab 3 ??? lisinopril (AKA ZESTRIL) 20 MG tablet Take 1 Tab by mouth daily. 90 Tab 12 ??? loratadine (KLS ALLERCLEAR) 10 MG tablet Take 10 mg by mouth daily at bedtime. ??? omeprazole (PRILOSEC) 20 MG capsule Take 1 Cap by mouth daily. Take 1 hour before a meal. 90 Cap3 ??? simvastatin (AKA ZOCOR) 40 MG tablet Take 0.5 Tabs by mouth daily at bedtime. 45 Tab 3 ??? VITAMIN C 500 MG OR TABS 2 tablets daily in cold season No Facility-Administered Medications for the 01/02/14 encounter (Hospital Encounter). Current Facility-Administered Medications Medication Dose Route Frequency ??? lactated ringers infusion IV Continuous ??? lidocaine (aka XYLOCAINE) 2 % injection Intra-Op Labs: Lab Results Component Value Date/Time SODIUM 140 08/30/2013 11:35 AM K 4.9 08/30/2013 11:35 AM CHLORIDE 105 08/30/2013 11:35 AM CO2 25 08/30/2013 11:35 AM BUN 21* 08/30/2013 11:35 AM CREATININE 1.97* 12/21/2013 2:21 PM GLUCOSE 83 08/30/2013 11:35 AM GLUCOSE 82 06/24/2013 11:18 AM Lab Results Component Value Date/Time WBC 8.9 10/24/2013 1:53 PM HGB 13.1 12/21/2013 2:21 PM HCT 36.2 10/24/2013 1:53 PM PLTS 272 10/24/2013 1:53 PM No results found for this basename: inr No results found for this basename: hcgquant Urine : Result: Negative Blood Bank: No results found for this basename: ABORH, ABSCR EKG: Date of last EK02/07/10 ECG 12-LEAD ROUTINE Result Value Range VENTRICULAR RATE 91 ATRIAL RATE 91 P-R INTERVAL 162 QRS DURATION 80 QT 408 QTC 501 P AXIS 57 R AXIS 11 T AXIS 36 URL LINK Date of last EK03/27/04 EKG TRACING Result Value Range EKG See Separate Report Physical Exam: BP 159/88 Pulse 54 Temp(Src) 97.8 ??F (36.6 ??C) (Oral) Resp 15 Ht 5' 6 (1.676 m) Wt 105.235 kg (232 lb) BMI 37.46 kg/m2 SpO2 99% Mental Status: Awake, Alert, Oriented Airway: MPC2 Dentition: normal Heart:RRR Lungs:BS CTA Assessment/Plan: Updated History and Physical: H&P Reviewed and Patient examined, no change observed ASA Score: 2 Anesthesia Type: MAC Standard ASA Monitors Induction Agent: Maintenance: PONV Prophylaxis:Ondansetron Other Equipment Needed: Post-operative Care: Routine Analgesia Anesthetic Plan, Risks, Benefits and alternatives discussed with: Patient IV access Antibiotics per surgery Freddy Kerns MD 01/02/2014 11:57 AM documented in this encounter Plan of Treatment Not on filedocumented as of this encounter Visit Diagnoses Not on filedocumented in this encounter Administered Medications Inactive Administered Medications - up to 3 most recent administrations Medication Order MAR Action Action Date Dose Rate Site fentaNYL (aka SUBLIMAZE) Given 01/02/2014 12:50 PM CDT 0.5 mL injection Starting on 01/02/14 at 1230 Given 01/02/2014 12:36 PM CDT 0.5 mL Given 01/02/2014 12:30 PM CDT 1 mL glycopyrrolate (aka ROBINUL) injection Given 01/02/2014 12:31 PM CDT 0.2 mg Starting on Wed01/02/14 at 1231, Until Wed01/02/14 at 1305 lactated ringers infusion Started 01/02/2014 12:23 PM CDT Starting on Wed01/02/14 at 1223 midazolam (aka VERSED) injection Given 01/02/2014 12:26 PM CDT 2 mg Starting on Wed01/02/14 at 1226, Until Wed01/02/14 at 1305 ondansetron (aka ZOFRAN) injection Given 01/02/2014 12:35 PM CDT 4 mg Starting on Wed01/02/14 at 1235, Until Wed01/02/14 at 1305 propofol (aka diPRIvan) Started 01/02/2014 12:31 PM 140 mcg/kg/min 88.37 mL/hr injection CDT Starting on Wed01/02/14 at 1231 propofol (aka diPRIvan) injection Given 01/02/2014 12:31 PM CDT 40 mg Starting on Wed01/02/14 at 1231 documented in this encounter Care Teams Process Supervisor Relationship Specialty Start Date End Date Tiffany Gonzalez APRN, DNP PCP - General 01/16/00 02/03/16 [address] [place] [id number] documented as of this encounter
--- OUTSIDE RECORDS SUMMARY | 2021-12-28 14:12 | XMS_ITS | Encounter Summary ---
:1965 Author Organization [facility] Address [address] [place] [address] Care Team Providers Name Role Phone Tiffany Gonzalez APRN, DNP Primary Care Provider [phone] Encounter Details Date Type Department Care Team Description 04/04/2014 Orders Only [facility] Chronic kidney disease, [address] [facility] stage IV (severe) [place], [place] [id number] Social History Tobacco Use Types Packs/Day Years Used Date Smoking Tobacco: Every Day Cigarettes 0.5 L ast attempted to quit: 02/23/2011 Smokeless Tobacco: Never Comments: 1/2 pack per day Alcohol Use Standard Drinks/Week Comments Yes 0.8 (1 standard drink = 0.6 oz pure alco hol) rarely Sex Assigned at Date Recorded Not on file documented as of this encounter Progress Notes Lisa Patrick - 04/05/2014 10:32 AM MANUFACTURING ENGINEER ASSEMBLY Quick Note: Kidney function is stable, electrolytes are ok. PTH slightly elevated, start Calcitrol 0.25 mg three times a week. All other labs are ok Lisa Galvan CNP 04/05/2014, 10:32 AM FACTURING ENGINEER ASSEMBLY documented in this encounter Plan of Treatment Not on filedocumented as of this encounter Procedures Procedure Name Priority Date/Time Associated Comments Diagnosis VITAMIN D Routine 04/04/2014 2:32 PM Chronic kidney Results for this 25-HYDROXY, TOTAL MANUFACTURING ENGINEER ASSEMBLY disease, stage IV proce dure are in (severe) the results section. INTACT PTH Routine 04/04/2014 2:32 PM Chronic kidney Results for this MANUFACTURING ENGINEER ASSEMBLY disease, stage IV procedure are in (severe) the results section. BASIC METABOLIC Routine 04/04/2014 2:32 PM Chronic kidney Resu lts for this PANEL MANUFACTURING ENGINEER ASSEMBLY disease, stage IV procedure are in (severe) the results section. HEMOGLOBIN, BLOOD Routine 04/04/2014 2:32 PM Chronic kidney Re sults for this MANUFACTURING ENGINEER ASSEMBLY disease, stage IV procedure are in (severe) the results section. TP/CREA RATIO, URINE Routine 04/04/2014 2:32 PM Chronic kidney Results for this MANUFACTURING ENGINEER ASSEMBLY disease, stage IV procedure are in (severe) the results section. MAGNESIUM Routine 04/04/2014 2:32 PM Chronic kidney Results for this MANUFACTURING ENGINEER ASSEMBLY disease, stage IV procedure are in (severe) the results section. PHOSPHORUS Routine 04/04/2014 2:32 PM Chronic kidney Results for this MANUFACTURING ENGINEER ASSEMBLY disease, stage IV procedure are in (severe) the results section. IRON PROFILE Routine 04/04/2014 2:32 PM Chronic kidney Results for this (IRON,TIBC,%SAT.(ADIA MANUFACTURING ENGINEER ASSEMBLY disease, stage IV pr ocedure are in C)) (severe) the results section. documented in this encounter Results IRON PROFILE (IRON,TIBC,%SAT.(CALC)) (04/04/2014 2:32 PM MANUFACTURING ENGINEER ASSEMBLY) athologist Signature Iron 52 37 - 170 [facility] mcg/dl [facility] TIBC 323 240 - 430 [facility] mcg/dl [facility] % Saturation, 16 15 - 50 % [facility] calc. [facility] Specimen Anatomical Collection Method Collection Time Receive d Time (Source) Location / / Volume Laterality 04/04/2014 2:32 PM 4 2:35 MANUFACTURING ENGINEER ASSEMBLY PM MANUFACTURING ENGINEER ASSEMBLY Narrative [facility] - 04/04/2014 7:[address] Performed at [facility], [address] [place] [address] ??[phone] Lisa Patrick APRN, CNP LAB_1 Performing Organization Address City/State/ZIP Code Phon e Number [facility] [phone] HEMOGLOBIN, BLOOD (04/04/2014 2:32 PM MANUFACTURING ENGINEER ASSEMBLY) athologist Signature Hemoglobin 12.2 12.0 - 16.0 [facility] g/dl Specimen Anatomical Collection Method Collection Time Receive d Time (Source) Location / / Volume Laterality 04/04/2014 2:32 PM 4 2:35 MANUFACTURING ENGINEER ASSEMBLY PM MANUFACTURING ENGINEER ASSEMBLY Narrative [facility] - 04/04/2014 7:[address] Performed at [facility], [address] [place] [address] ??[phone] Lisa Patrick APRN, CNP LAB_1 Performing Organization Address City/[facility]/ZIP Code Phon e Number [facility] [phone] MAGNESIUM (04/04/2014 2:32 PM MANUFACTURING ENGINEER ASSEMBLY) athologist Signature Magnesium 1.9 1.6 - 2.3 [facility] mg/dl Specimen Anatomical Collection Method Collection Time Receive d Time (Source) Location / / Volume Laterality 04/04/2014 2:32 PM 4 2:35 MANUFACTURING ENGINEER ASSEMBLY PM MANUFACTURING ENGINEER ASSEMBLY Narrative [facility] - 04/04/2014 7:[address] Performed at [facility], [address] [place] [address] ??[phone] Lisa Patrick APRN, CNP LAB_1 Performing Organization Address [facility] Phon e Number [facility] [phone] PHOSPHORUS (04/04/2014 2:32 PM MANUFACTURING ENGINEER ASSEMBLY) athologist Signature Phosphorus 4.4 2.5 - 4.5 [facility] mg/dl Specimen Anatomical Collection Method Collection Time Receive d Time (Source) Location / / Volume Laterality 04/04/2014 2:32 PM 4 2:35 MANUFACTURING ENGINEER ASSEMBLY PM MANUFACTURING ENGINEER ASSEMBLY Narrative [facility] - 04/04/2014 7:[address] Performed at [facility], [address] [place] [address] ??[phone] Lisa Patrick APRN, CNP LAB_1 Performing Organization Address City/[facility]/ZIP Code Phon e Number [facility] [phone] (ABNORMAL) TP/CREA RATIO, URINE (04/04/2014 2:32 PM MANUFACTURING ENGINEER ASSEMBLY) Patholo gist Method Time Signature Total Protein, 21 mg/dl [facility] Urine, Random [facility] Creatinine,Ur 40.0 mg/dl [facility] Random [facility] TP/Creat 0.5 (H) <0.2 [facility] Ratio, Urine, [facility] Random Specimen Anatomical Collection Method Collection Time Receive d Time (Source) Location / / Volume Laterality Urine specimen 04/04/2014 2:32 PM 014 2:36 (specimen) MANUFACTURING ENGINEER ASSEMBLY PM MANUFACTURING ENGINEER ASSEMBLY Narrative [facility] - 04/04/2014 9:[address] Performed at [facility], [address] [place] [address] ??[phone] Lisa Patrick APRN, CNP LAB_1 Performing Organization Address [facility] Phon e Number [facility] [phone] VITAMIN D 25-HYDROXY, TOTAL (V77.99) (04/04/2014 2:32 PM MANUFACTURING ENGINEER ASSEMBLY) athologist Signature Vitamin 42.6 30.0 - [facility] D,25-OH, Tot 80.0 ng/mL LABORATORIES Comment: Deficiency: ??< 20 ng/mL Insufficiency: ??20-29 ng/mL Optimum Level: ??30-80 ng/mL Possible Toxicity: > 80 ng/mL Specimen Anatomical Collection Method Collection Time Receive d Time (Source) Location / / Volume Laterality 04/04/2014 2:32 PM 4 2:35 MANUFACTURING ENGINEER ASSEMBLY PM MANUFACTURING ENGINEER ASSEMBLY Narrative [facility] - 04/04/2014 6:[address] Performed at [facility] , [address] [place] [id number] Lisa Patrick APRN, CNP LAB_1 Performing Organization Address [facility] Phon e Number [facility] [phone] (ABNORMAL) INTACT PTH (04/04/2014 2:32 PM MANUFACTURING ENGINEER ASSEMBLY) athologist Signature Intact PTH 85.6 (H) 14.0 - [facility] 72.0 pg/mL [facility] Specimen Anatomical Collection Method Collection Time Receive d Time (Source) Location / / Volume Laterality 04/04/2014 2:32 PM 4 2:35 MANUFACTURING ENGINEER ASSEMBLY PM MANUFACTURING ENGINEER ASSEMBLY Narrative [facility] - 04/04/2014 6:[address] Performed at [facility] , [address] [place] [phone] Lisa Patrick APRN, CNP LAB_1 Performing Organization Address City/[facility]/ZIP Code Phon e Number [facility] [phone] (ABNORMAL) BASIC METABOLIC PANEL (04/04/2014 2:32 PM MANUFACTURING ENGINEER ASSEMBLY) [facility] Method Time Signature Sodium 143 135 - 145 [facility] mmol/L [facility] Potassium 4.2 3.5 - 5.3 [facility] mmol/L [facility] Chloride 107 (H) 95 - 106 [facility] mmol/L [facility] CO2 24 22 - 30 [facility] mmol/L [facility] Anion Gap 12 7 - 16 [facility] (calc.) mmol/L [facility] Glucose 105 70 - 180 [facility] mg/dl [facility] Calcium 9.1 8.4 - [facility] 10.2 [facility] mg/dl BUN 25 (H) 7 - 20 [facility] mg/dl [facility] Creatinine 2.16 (H) 0.52 - [facility] 1.04 [facility] mg/dl GFR, Estimated 26 (L) >60 [facility] ml/min/1. [facility] 73m2 GFR, Est., If 30 (L) >60 [facility] Black ml/min/1. LAB[facility]ATOR[facility] 73m2 Specimen Anatomical Collection Method Collection Time Receive d Time (Source) Location / / Volume Laterality 04/04/2014 2:32 PM 4 2:35 MANUFACTURING ENGINEER ASSEMBLY PM MANUFACTURING ENGINEER ASSEMBLY Narrative [facility] - 04/04/2014 7:[address] Performed at [facility], [address] [place] [address] ??[phone] Lisa Patrick APRN, CNP LAB_1 Performing Organization Address City/[facility]/[place]UST Code Phon e Number [facility] [phone] documented in this encounter Visit Diagnoses Diagnosis Chronic kidney disease, stage IV (severe ) ([facility]) Chronic kidney disease, Stage IV (severe ) documented in this encounter Care Teams Typing Teacher Relationship Specialty Start Date End Date Tiffany Gonzalez APRN, DNP PCP - General 01/16/00 02/03/16 [place] [id number] documented as of this encounter
--- OUTSIDE RECORDS SUMMARY | 2021-12-28 14:12 | XMS_ITS | Encounter Summary ---
:1965 Author Organization [facility] [employer] Address [address] [place] [address] Care Team Providers Name Role Phone Tiffany Gonzalez APRN, GAIL Primary Care Provider [phone] Reason for Visit Reason Comments Refill Encounter Details Date Type Department Care Team Description 04/24/2013 Refill [facility] Tiffany Gonzalez, Refill [address] [place] [address] [address] [facility] [phone] [place], [place] [id number] (Wo rk) Social History Tobacco Use Types [...] documented as of this encounter Nursing Notes Diamond Benedict RN - 04/26/2013 1:54 PM CST per standing order Diamond Benedict RN SAW OPERATOR Interface, Out Surescripts Prov Query - 04/24/2013 9:00 PM CST simvastatin (AKA ZOCOR) 40 MG tablet [Pharmacy Med Name: SIMVASTATIN 40MG TABS] - REFILL: 3 months - PROTOCOL: Antilipid: HMG-CoA Reductase Inhibitors - RATIONALE: This is a courtesy refill. Patient is overdue for an office visit and LDL check. This will be the last refill authorized by the protocol. - LAST PRIMARY CARE VISIT: 04/22/2012 - NEXT PRIMARY CARE VISIT: None - LAST REFILLED ON: 03/14/2012, QTY: 45, Refills: 3, Sig: take 0.5 tabs by mouth daily at bedtime. (changed) - LDL: 109.0mg/dL on 03/14/2012 Powered by [employer], Reference: [id number], 04/24/2013 SAW OPERATOR Sravanthi, Out Prosper Query - 04/24/2013 9:00 PM CST The following lab order(s) may be associated with the Result Note below: LIPID PANEL AND DIRECT LDL(IF NEEDED) Recorded by Tiffany Gonzalez on 03/29/2012 at 3:27 PM Can I get a phone appt with Stephanie or can she come in to discuss hgb/vit d? SAW OPERATOR documented in this encounter ED Notes Sravanthi, Out Prosper Query - 04/24/2013 9:00 PM CST Order(s) created erroneously. Erroneous order ID: [id number] Order moved by: SRAVANTHI SURESCRIPTS Order move date/time: 04/24/2013 9:00 PM Source Patient: [id number] Source Contact: 04/24/2013 Destination Patient: [id number] Destination Contact: 04/24/2013 SAW OPERATOR documented in this encounter Plan of Treatment Not on filedocumented as of this encounter Visit Diagnoses Diagnosis Hypercholesterolemia with hyperglyceride marilee (HRC) - Primary Mixed hyperlipidemia documented in this encounter Care Teams Inspector Type Relationship Specialty Start Date End Date Tiffany Gonzalez, ROAD SUPERVISOR OF ENGINES, DNP PCP - General 01/16/00 02/03/16 [address] [place] [id number] documented as of this encounter
--- OUTSIDE RECORDS SUMMARY | 2021-12-28 14:12 | XMS_ITS | Encounter Summary ---
:1965 Author Organization [facility] Address [address] [place] [address] Care Team Providers Name Role Phone Haylee Alanis APRN, CNP Primary Care Provider [phone] Encounter Details Date Type Department Care Team Description 08/24/2013 Outside Hospital External to External, [facility] DISCHARGE [place] [address] Social History Tobacco Use Types Packs/Day Years [...] on filedocumented in this encounter Care Teams Metal Sprayer Production Relationship Specialty Start Date End Date Haylee Alanis APRN, LINEMAN SERVICE OR WORK DISPATCHER PCP - General Nurse Practitioner 02/04/[address] [place] [address] documented as of this encounter
--- OUTSIDE RECORDS SUMMARY | 2021-12-28 14:12 | XMS_ITS | Encounter Summary ---
:1965 Author Organization [facility] Address [address] [place] [address] Care Team Providers Name Role Phone Haylee Alanis APRN, CNP Primary Care Provider [phone] Encounter Details Date Type Department Care Team Description 08/24/2013 Outside Hospital External to External, [facility] [place] DISCHARGE [place] [address] Social History Tobacco Use Types Packs/Day Years [...] on filedocumented in this encounter Care Teams School Cafeteria Head Cook Relationship Specialty Start Date End Date Haylee Alanis APRN, MEDICAL SALES SPECIALIST PCP - General Nurse Practitioner 02/04/[address] [place] [address] documented as of this encounter
--- OUTSIDE RECORDS SUMMARY | 2021-12-28 14:12 | XMS_ITS | Encounter Summary ---
:1965 Author Organization [facility] Address [address] [place] [address] Care Team Providers Name Role Phone Haylee Alanis APRN, CNP Primary Care Provider [phone] Encounter Details Date Type Department Care Team Description 01/02/2014 Consent for [facility] RH INFORM ED CONSENT Procedure/Treatment RECORD Social History Tobacco Use Types Packs/Day Years [...] on filedocumented in this encounter Care Teams Human Resources Talent Manager Relationship Specialty Start Date End Date Haylee Alanis APRN, HEAD MACHINIST PCP - General Nurse Practitioner 02/04/[address] [place] [address] documented as of this encounter
--- OUTSIDE RECORDS SUMMARY | 2021-12-28 14:12 | XMS_ITS | Encounter Summary ---
:1965 Author Organization [facility] Address [address] [place] [address] Care Team Providers Name Role Phone Tiffany Gonzalez APRN, DNP Primary Care Provider Encounter Details Date Type Department Care Team Description 09/25/2013 Orders Only [facility] HYPERTEN ZULY NOS; Laboratory POLYCYSTIC KIDNEY, UNSPEC [address] [place] [address] Social History Tobacco Use Types [...] Name Priority Date/Time Associated Diagnosis Comme nts CREATININE / GFR Routine 09/25/2013 7:03 AM HYPERTENSION NOS Results for this CDT POLYCYSTIC KIDNEY, procedure are in UNSPEC the results section. documented in this encounter Results (ABNORMAL) CREATININE / GFR (09/25/2013 7:03 AM CDT) [facility] Method Time Signature Creatinine 2.10 (H) 0.52 - [facility] 1.04 [facility] mg/dl GFR, Estimated 27 (L) >60 [facility] ml/min/1. LAB[facility]ATORIES 73m2 GFR, Est., If 31 (L) >60 [facility] Black ml/min/1. LABORATORIES 73m2 Specimen Anatomical Collection Method Collection Time Receive d Time (Source) Location / / Volume Laterality 09/25/2013 7:03 AM 4 7:08 CDT AM CDT Narrative [facility] - 09/25/2013 1:31 PM C DT Performed at [facility], [address] [place] [id number] Tiffany Gonzalez APRN, DNP LAB_1 Performing Organization Address City/State/[facility] Code Phon e Number [facility] [phone] documented in this encounter Visit Diagnoses Diagnosis HYPERTENSION NOS Unspecified essential hypertension POLYCYSTIC KIDNEY, UNSPEC Polycystic kidney, unspecified type documented in this encounter Care Teams Pier Runner Relationship Specialty Start Date End Date Tiffany Gonzalez APRN, DNP PCP - General 01/16/00 02/03/16 [address] [place] [id number] documented as of this encounter
--- OUTSIDE RECORDS SUMMARY | 2021-12-28 14:12 | XMS_ITS | Encounter Summary ---
:1965 Author Organization [facility] Address [address] [place] [address] Care Team Providers Name Role Phone Tiffany Gonzalez R DEVELOPER, DNP Primary Care Provider Reason for Visit Reason Onset Date Comments Urgent Appt Request 08/28/2013 Encounter Details Date Type Department Care Team Description 08/28/2013 Telephone [facility] Nephrology Tiffany Dickinson, Urgent Appt Request [address] [facility] [place] [address] [address] [facility] [phone] [place], [place] [address] (Wo rk) Social History Tobacco Use Types Packs/Day Years Used Date Smoking Tobacco: Every Day Cigarettes 0.5 L ast attempted to quit: 02/23/2011 Smokeless Tobacco: Never Comments: 1/2 pack per day Alcohol Use Standard Drinks/Week Comments Yes 0.8 (1 standard drink = 0.6 oz pure alco hol) rarely Sex Assigned at Date Recorded Not on file documented as of this encounter Nursing Notes Júnior Figueroa - 08/28/2013 1:28 PM CDT Pt is scheduled with DR. Martin on 09/26/13 11am. Júnior Figueroa Tiffany Dickinson MD - 08/28/2013 12:53 PM CDT I spoke with referring provider. Can be scheduled next available. Tiffany Dickinson MD 08/28/2013, 12:54 PM Júnior Figueroa - 08/28/2013 12:36 PM CDT Urgent referral appt request from PCP for pt to f/u for PKD, cyst burst Appointment Urgency. Please advise where pt can be placed. Thanks, Júnior Figueroa documented in this encounter Plan of Treatment Not on filedocumented as of this encounter Visit Diagnoses Not on filedocumented in this encounter Care Teams Associate Vice President Relationship Specialty Start Date End Date Tiffany Gonzalez, R DEVELOPER, DNP PCP - General 01/16/00 02/03/16 [address] [place] [id number] documented as of this encounter
--- OUTSIDE RECORDS SUMMARY | 2021-12-28 14:12 | XMS_ITS | Encounter Summary ---
:1965 Author Organization [facility] Address [address] [place] [address] Care Team Providers Name Role Phone Tiffany Gonzalez APRN, DNP Primary Care Provider Reason for Visit Auth/Cert - Closed Specialty Diagnoses / Procedures Referred By Contact Refer red To Contact Diagnoses Endometrial polyp . Referral ID Status Reason Start Date Expiration Date Visits Requ ested Visits Authorized [id number] Closed 1 1 Encounter Details Date Type Department Care Team Description 01/02/2014 Hospital Encounter [facility] Same Day Fall, Dawna Leyva MD [facility] [address] [place] [address] Social History Tobacco Use Types Packs/Day [...] Sign Reading Time Taken Comments Blood Pressure 136/87 01/02/2014 1:43 PM CDT Pulse 58 01/02/2014 1:43 PM CDT Temperature 36.5 ??C (97.7 ??F) 01/02/2014 1:03 PM CDT Respiratory Rate 18 01/02/2014 1:43 PM CDT Oxygen Saturation 95% 01/02/2014 1:43 PM CDT Inhaled Oxygen Concentration - - Weight 105.2 kg (232 lb) 01/02/2014 10:45 AM CDT Height 167.6 cm (5' 6) 01/02/2014 10:45 AM CDT Body Mass Index 37.45 01/02/2014 10:45 AM CDT documented in this encounter Discharge Instructions Discharge InstructionsElisabeth Lyons RN - 01/02/2014 1:43 PM CDT Discharge Instructions for: Stephanie Norman Thank you for choosing [facility] as your provider. A copy of your discharge instructions has been given to you. Please read the instructions carefully. The surgery nurse will review this information with you and answer your questions. General Information Surgeon(s): Dawna Mccullough MD Procedure(s): DILATATION AND CURETTAGE WITH HYSTEROSCOPY, REMOVAL OF POLYP Surgeon Orders/Follow Up Appointment No dressing needed Peripad as needed No tampons or douching for 14 days. Follow up appointment has been made Discharge nurse to give patient appointment card. Contact Information If it is after hours call the Careline at [phone]. [facility] CONTENT PRODUCER, Dr. Mccullough's office. Follow Up Appointment 01/18/2014 1:00 PM Mike Everett Dictionary Editor Anesthesia Today you received General/Minor Sedation: Rest in bed the day of surgery, then advance to normal activity the next day. Let's talk about what to expect after receiving anesthesia. After anesthesia, reactions are slow andsome patients may become lightheaded or dizzy. The following safety precautions are recommended: ?? Don't drink alcoholic beverages. ?? Don't use any other drugs than those ordered by your physician. ?? Don't drive a car or any other vehicle. ?? Don't work with machinery or power tools. ?? Be careful walking. Be extra careful walking up and down stairs. Let's talk about the DANGER SIGNALS to watch for after you go home. I should call my clinic if I experience any of the following: ?? Temperature higher than 101 degrees Fahrenheit ?? Redness that has spread ?? Persistent bleeding ?? Purulent drainage for incision site ?? Reaction to new medications ?? Severe pain ?? Swelling Activity/Mobility Let's talk about when you can resume your normal activities. Rest quietly the day of your surgery, then return to normal activity unless otherwise instructed by your surgeon. Did your surgeon talk to you about: When you may drive a car: when no longer taking narcotic prescription medications I have received instructions on my diet: resume regular diet. avoid spicy, greasy and fatty foods today to prevent nausea. Drink plenty of fluids (6-8 glasses of liquids over the next 24 hours). Additional Information Call your doctor for any of these danger signs: (1) If you have a temperature greater then 100.4 degrees F when taken by mouth. (2) If you are having nausea or vomiting. (3) If you feel pain or burning when you urinate. (4) If you are unable to urinate. (5) If your bleeding is heavier than a normal menstrual period, soaking thru a cleo pad every 2-3 hours. (6) If you pass any tissue or large clots (larger then a 50 cent piece), or your vaginal discharge smells foul. (7) If you have severe pain in your lower abdomen. (8) If you are coughing and short of breath or have chest pain. (9) If you have redness or drainage from your incision. Medications Let's talk about the purpose and side effects of the medications that you will be taking home. New Medications: when to take them, what they are for, and adverse reactions. The possible side effects are: constipation, rash, nausea and diarrhea. Please read the drug information enclosed in your pharmacy bag. Houston (Hydrocodone/Acetaminophen) is the pain medication ordered for you. This medication causes sleepiness, slowed reflexes, problems with constipation, nausea and constipation. Take with food to avoid stomach upset. Increase fluid intake and add fruit and fiber to your diet to avoid constipation. You may not drive for 8 hours after taking Houston. DO NOT EXCEED 12 TABS IN 24 HOURS You had 2 tabs Houston at 1:45pm. May have next dose at 5:45pm You may take over the counter medications: acetaminophen (Tylenol) 325 mg 1-2 tablets every 4-6 hours as needed for pain when you are no longertaking your prescribed pain medication. DO NOT TAKE TYLENOL (ACETAMINOPHEN) WHILE TAKING TYLENOL WITH CODEINE, VICODIN/NORCO, PERCOCET OR DARVOCET THEY ALL CONTAIN TYLENOL (ACETAMINOPHEN) You can resume your home medications. It is important to us that you had a great experience and great care. We want you to be completely satisfied with all aspects of your care. You might be receiving a survey in the next couple of weeks about the care you received. We would appreciate it very much if you would complete and return it. It is our goal to make [facility] your hospital of choice and want you to feel confident in recommending [facility] to your family and friends. Thank you for choosing [facility]. The nurse has reviewed the above discharge instructions with me. I understand my discharge instructions. documented in this encounter Medications at Time of Discharge Medication Sig Dispensed Refills Start Date End Date acetaminophen (TYLENOL Take 500-1,000 mg 0 EXTRA STRENGTH) 500 MG by mouth every 4 tablet hours as needed. ALBUterol 2.5 mg/3 mL, Inhale 3 mL by 60 Each 6 4 0.083%, nebulizer mouth 4 times a day solutionIndications: as needed for Asthma with exacerbation, Wheezing or mild intermittent (HRC) Shortness of Breath. syfsqzb-hmwqejmbbadcc-cfxc Take 1 Tab by mouth 0 eine (EXCEDRIN MIGRAINE) every 6 hours as 250-250-65 MG tablet needed. beclomethasone (QVAR) 80 Inhale 1 Puff by 7.3 g 3 03/14 MCG/ACT inhaler mouth two times a day. Rinse mouth after use ferrous gluconate (AKA Take 1 Tab by mouth 100 Tab 12 09/17 FERGON) 324 (38 FE) MG daily with tablet breakfast. loratadine (KLS Take 10 mg by mouth 0 ALLERCLEAR) 10 MG tablet daily at bedtime. omeprazole (PRILOSEC) 20 Take 1 Cap by mouth 90 Cap 3 MG capsule daily. Take 1 hour before a meal. traZODone (AKA DESYREL) 50 Take 1 Tab by mouth 90 Tab 3 06/24/2013 MG tablet at bedtime as needed for Sleep. carvedilol (AKA COREG) Take 1 Tab by mouth 180 Tab 12 09/1704/10/2014 12.5 MG tablet two times a day. cholecalciferol (AKA Take 1 Cap by mouth 0 201302/04/2016 VITAMIN D3) 1000 UNITS daily. capsule citalopram (AKA CELEXA) 40 Take 1 Tab by mouth 90 Tab 3 06/24/2013 09/03/2014 MG tablet daily. HYDROcodone-acetaminophen Take 1-2 Tabs by 10 Tab 0 12/1804/04/2014 (AKA NORCO) 5-325 MG mouth every 4 hours tablet as needed for Pain. lisinopril (AKA ZESTRIL) Take 1 Tab by mouth 90 Tab 12 06/07/2014 20 MG tablet daily. simvastatin (AKA ZOCOR) 40 Take 0.5 Tabs by 45 Tab 3 11/201309/03/2014 MG tablet mouth daily at bedtime. VITAMIN B COMPLEX OR 1 daily 0 06/28/200701/17 VITAMIN C 500 MG OR TABS 2 tablets daily in 0 02/200802/04/2016 cold season documented as of this encounter Procedure Notes Dawna Mccullough MD - 01/02/2014 12:55 PM CDT [facility] Operative Progress Note Surgery Date: 01/02/2014 Primary Surgeon: Surgeon(s): Dawna Mccullough MD Assistants: Post-op Diagnosis: Endometrial polyp Procedure: Procedure(s) (LRB): DILATATION AND CURETTAGE WITH HYSTEROSCOPY, REMOVAL OF POLYP (N/A) EBL: * No values recorded between 01/02/2014 12:27 PM and 01/02/2014 12:27 PM * Specimens: Specimen ID Type Site Comments Sent To endometrial currettings and polyp PERMANENT SPECIMEN COOLER Complications / Findings: Uterine cavity with small polyp. Posterior fibroid bulges into cavity. Procedure: Pt placed in modified lithotomy with gray stirrups after induction of MAC anesthesia. Prepped and draped in the usual sterile fashion. Speculum placed in the vagina and the cervix was grasped with a single toothed tenaculum. A paracervical block was performed with 2 % lidocaine. The cervixwas dilated to 6 mm. A hysteroscope was inserted with a distending medium of lactated ringers. The endometrial cavity was visualized with the above findings. The hysteroscope was withdrawn and a fractional d&C was performed with sampling of all surfaces of the endometrium. A large tissue sample was obtained. The cavity was viewed again with the hysteroscope to confirm removal of the polyp. The procedure was terminated and the patient taken to recovery in stable condition. At the end of the procedure, the raytec counts were correct. MD Dawna Sauceda MD --- End of Report --- documented in this encounter Miscellaneous Notes OR Nursing - Elvin Pascal RN - 01/02/2014 1:01 PM CDT Normal saline deficit 300 cc documented in this encounter Plan of Treatment Not on filedocumented as of this encounter Procedures Procedure Name Priority Date/Time Associated Comments Diagnosis DILATATION AND Same Day 01/02/2014 12:27 Endometrial polyp CURETTAGE WITH Surgery PM CDT HYSTEROSCOPY STAT 01/02/2014 10:34 Results for this TEST(URINE),POINT OF AM CDT procedu re are in CARE the results section. SURGICAL PATH Routine 01/02/2014 7:00 Results for this AM CDT procedure are i n the results section. documented in this encounter Results TEST(URINE),POINT OF CARE (not available at [place]) (01/02/2014 10:34 AM CDT) [facility] Method Time Signature HCG, Urine Negative [facility] Negative = <25 mIU/ml HOSPITAL If is suspected, suggest repeat in 48-72 hours or confirm results with a quantitative hCG test. Specimen Anatomical Collection Method Collection Time Receive d Time (Source) Location / / Volume Laterality Urine specimen 01/02/2014 10:34 4 2:11 (specimen) AM CDT PM CDT Narrative [facility] - 01/02/2014 2:12 PM CD T Performed at [facility] , [address] [place] [id number] Victorina Mclean MD LAB_1 Performing Organization Address City/State/ZIP Code Phon e Number [address] [address] SURGICAL PATH (01/02/2014 7:00 AM CDT) [facility] gist Method Time Signature Histology (NOTE) [facility] Surgical Final Report HOSPITAL Patient Name: STEPHANIE NORMAN Taken: 01/02/2014 Received: 01/02/2014 Reported: 01/03/2014 Physician(s): DAWNA MCCULLOUGH ([id number]) ? Final Pathologic Diagnosis Endometrium, curettings -- ?1. ??Fragments consistent with endometrial polyp ?2. ??No hyperplasia, atypia or malignancy seen Electronically Signed Out By ? Geneva Moreno MD ??([id number] ) Procedures/Addenda Clinical History Endometrial polyp ?? Gross Description The specimen is received in formalin and labeled with the pa pranaynt's name and endometrial curetting and polyp. ??The specimen c onsists of a 2.1 x 1.7 x 0.3 cm aggregate of dark purple hemorrhage adm ixed with sahu pink to purple soft tissue fragments. ??The specimen is filtered and entirely submitted in one cassette. ??js jds/01/02/2014 Microscopic Description Microscopic examination is performed on one slide. ?? ejaa/01/03/2014 Geneva Moreno MD ??([id number] ) [facility] Department of Pathology [address] [place] [address] ??[id number] Specimen Anatomical Collection Method Collection Time Receive d Time (Source) Location / / Volume Laterality OTHER / Unknown 01/02/2014 7:00 AM 2013 2:52 CDT PM CDT Dawna Mccullough MD LAB_1 Performing Organization Address City/State/ZIP Code Phon e Number [address] [phone] [address] [phone] documented in this encounter Visit Diagnoses Not on filedocumented in this encounter Administered Medications Inactive Administered Medications - up to 3 most recent administrations Medication Order MAR Action Action Date Dose Rate Site HYDROcodone-acetaminophen (aka Given 01/02/2014 1:42 PM CDT 2 Ta blets NORCO) 5-325 MG tablet TABS 1-2 Tab 1-2 Tablet, Oral, ONCE PRN, Pain, Starting on Wed01/02/14 at 1310, Until Wed01/02/14 at 1342, For 1 dose, PACU (only) lactated ringers infusion Started 01/02/2014 11:07 AM CDT 30 mL/hr Intravenous, at 30 mL/hr, CONTINUOUS, Starting on Wed01/02/14 at 1034, Pre-op lidocaine (aka XYLOCAINE) 2 % injection Given 01/02/2014 12:47 PM CDT 10 mL INTRA-OP, Starting on Wed01/02/14 at 0937, For 1 dose, Verify Route and Dose with Surgeon Prior to Administration documented in this encounter Care Teams Landscaper Helper Relationship Specialty Start Date End Date Tiffany Gonzalez APRN, DNP PCP - General 01/16/00 02/03/16 [address] [place] [id number] documented as of this encounter
--- OUTSIDE RECORDS SUMMARY | 2021-12-28 14:12 | XMS_ITS | Encounter Summary ---
:1965 Author Organization [facility] Address [address] [place] [address] Care Team Providers Name Role Phone Tiffany Gonzalez APRN, DNP Primary Care Provider [phone] Reason for Visit Reason Comments ROUTINE HEALTH MAINTENANCE Encounter Details Date Type Department Care Team Description 06/24/2013 Office Visit Elisabeth Gonzalez, Preventative he alth care (Primary Dx); Practice Tiffany Still, Reflux esophagitis; [address] GAIL CULVER POLYCYSTIC KIDNEY, UNSPEC; [place], [place] [address] HYPERTENSION NOS; [address] [place] [address] ALLERGIC RHINITIS NOS; [phone] Hypercholestero lemia with hyperglyceridemia; (Work) PMDD (premenstrual dysphoric disorder); [phone] Obstructive sle ep apnea (adult) (pediatric); (Fax) Mild persistent asthma, uncomplicated; Asthma with exa cerbation, mild intermittent Social History Tobacco Use Types Packs/Day Years [...] Sign Reading Time Taken Comments Blood Pressure 125/88 06/24/2013 10:34 AM CLIMATOLOGY PROFESSOR Pulse 67 06/24/2013 10:34 AM CLIMATOLOGY PROFESSOR Temperature - - Respiratory Rate - - Oxygen Saturation - - Inhaled Oxygen Concentration - - Weight 104.8 kg (231 lb) 06/24/2013 10:34 AM CLIMATOLOGY PROFESSOR Height 167.9 cm (5' 6.1) 06/24/2013 10:34 AM CLIMATOLOGY PROFESSOR Body Mass Index 37.17 06/24/2013 10:34 AM CLIMATOLOGY PROFESSOR documented in this encounter Patient Instructions Patient InstructionsTiffany Gonzalez APRN, DNP - 06/24/2013 10:38 AM CLIMATOLOGY PROFESSOR GO TO LAB TODAY For bone health: Calcium intake - 1200mg/ day in divided doses (food or supplements) if under age 50, otherwise 1500mg/day if over age 50. Three dairy products (yogurt/milk/cheese) is 900mg. Vit D3 1000 - 2000IU daily. This is over the counter, and can be purchased at any drug store. Vit D serves many functions in the body including keeping bones strong, helping to absorb calcium, help muscles to function better, help fight depression and fatigue, and probably reduce risk for certain cancers. We are finding new things about Vit D all the time. In [place] Vit D levels are low dueto low level of sun exposure. Regarding labwork if you go today or future: results will be released online. Tiffany Gonzalez NP is out of the clinic on Wed. For health care information online, visit the website, and click on View Online Health Information [employer]. If you have any questions about this visit, please call [phone] during the day or email questions through your online account. At night or on the weekend you may call the Care Line at [phone] or . Please set up a future mammogram appointment by calling [phone] ATOLOGY PROFESSOR documented in this encounter Progress Notes Tiffany Gonzalez APRN, DNP - 06/24/2013 10:42 AM CST Historical: Stephanie Norman is a 48 yr old female Chief Complaint Patient presents with ??? ROUTINE HEALTH MAINTENANCE Current concerns: HTN-no problems Followed by [facility], in a study, for PKD Do you... - check home BP readings? 120/70 to 120/80 - follow a low sodium diet? Low sodium under 1500mg /day diet - have difficulty taking medications as prescribed? no - have tightening or pressure in chest with activity? no - have dizziness at times? no - have trouble with shortness of breath when walking? no History Smoking status ??? Former Smoker -- 0.50 packs/day ??? Types: Cigarettes ??? Quit date: 02/23/2011 Smokeless tobacco ??? Never Used Comment: Restarted 12/2005; prior to that stopped for 8 months BP Readings from Last 3 Encounters: 06/24/13 125/88 10/27/12 133/86 10/06/12 130/99 Menses are: irregular-Patient's last menstrual period was 05/29/2013. Diet: fruits/ vegetables: 2-4 servings each day Present exercise habits: infrequent exercise Hearing: Do you have a history of hearing loss? Do you have any concerns about your hearing? no no Have you: -felt little interest or pleasure in doing things, for a few days or more in the last 2 weeks? OR -felt down, depressed or hopeless for a few days or more in the last 2 weeks? no I have reviewed the medical, surgical, family and social histories. History Social History ??? Marital Status: Domestic Partner Spouse Name: Shreyas Number of Children: 6 ??? 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 Smoking status: Former Smoker -- 0.50 packs/day Types: Cigarettes Quit date: 02/23/2011 ??? Smokeless tobacco: Never Used Comment: Restarted 12/2005; prior to that stopped for 8 months ??? Alcohol Use: 0.5 oz/week 1 Cans of beer per week Comment: rarely ??? Drug Use: No ??? Sexually Active: Yes -- Female partner(s) Control/ Protection: None Comment: same partner for [...] five adopted children 06/24/2013 Engaged to Shreyas ROS: Negative ROS other than above. Reflux well-managed with medications. Sleep greatly improved because of CPAP machine. PMDD greatly managed by selective serotonin reuptake inhibitor. Observed: BP 125/88 Pulse 67 Ht 5' 6.1 (1.679 m) Wt 231 lb (104.781 kg) BMI 37.17 kg/m2 LMP 05/29/2013 Estimated body mass index is 37.17 kg/(m^2) as calculated from the following: Height as of this encounter: 5' 6.1 (1.679 m). Weight as of this encounter: 231 lb (104.781 kg). General: Appears stated age, alert and comfortable HEENT:oropharynx is normal. Neck: thyroid normal Lungs: clear to auscultation, no wheezes or rales Breasts: no skin changes, no dominant masses, no axillary lymphadenopathy CV: regular rate and rhythm, normal S1 and S2 without murmur or click Abd: Soft, non-tender, no masses, no hepatomegaly or splenomegaly. : pelvic exam not indicated Skin: no significant abnormalities noted Assessment/Plan: ICD-9-CM 1. Preventative health care V70.0 2. Reflux esophagitis 530.11 3. POLYCYSTIC KIDNEY, UNSPEC 753.12 BASIC METABOLIC PANEL,FASTING TSH, SENSITIVE VITAMIN D 25-HYDROXY, TOTAL (V77.99) IRON PROFILE (IRON,TIBC,%SAT.(CALC)) FERRITIN UA WITH MICRO BASIC METABOLIC PANEL,FASTING TSH, SENSITIVE VITAMIN D 25-HYDROXY, TOTAL (V77.99) IRON PROFILE (IRON,TIBC,%SAT.(CALC)) FERRITIN UA WITH MICRO CANCELED: LIPID PANEL AND DIRECT LDL(IF NEEDED) CANCELED: AST CANCELED: ALT (SGPT) 4. HYPERTENSION NOS 401.9 5. ALLERGIC RHINITIS NOS 477.9 6. Hypercholesterolemia with hyperglyceridemia 272.2 LIPID PANEL AND DIRECT LDL(IF NEEDED) AST ALT (SGPT) 7. PMDD (premenstrual dysphoric disorder) 625.4 8. Obstructive sleep apnea (adult) (pediatric) 327.23 9. Mild persistent asthma, uncomplicated 493.90 10. Asthma with exacerbation, mild intermittent 493.02 ALBUterol 2.5 mg/3 mL, 0.083%, nebulizer solution See pt instructions for plan/details. ATOLOGY PROFESSOR documented in this encounter Plan of Treatment Not on filedocumented as of this encounter Procedures Procedure Name Priority Date/Time Associated Diagnosis Comme nts BASIC METABOLIC Routine 06/24/2013 11:18 POLYCYSTIC KIDNEY, UN SPEC Results for this PANEL,FASTING AM CLIMATOLOGY PROFESSOR procedure are in the results section. LIPID PANEL AND Routine 06/24/2013 11:18 Hypercholesterolemia with Results for this DIRECT LDL(IF AM CLIMATOLOGY PROFESSOR hyperglyceridemia procedure are in NEEDED) the results section. VITAMIN D Routine 06/24/2013 11:18 POLYCYSTIC KIDNEY, UNSPE C Results for this 25-HYDROXY, TOTAL AM CLIMATOLOGY PROFESSOR procedure are in the results section. TSH, SENSITIVE Routine 06/24/2013 11:18 POLYCYSTIC KIDNEY, UNS PEC Results for this AM CLIMATOLOGY PROFESSOR procedure are i n the results section. FERRITIN Routine 06/24/2013 11:18 POLYCYSTIC KIDNEY, UNSPE C Results for this AM CLIMATOLOGY PROFESSOR procedure are i n the results section. ALT (SGPT) Routine 06/24/2013 11:18 Hypercholesterolemia wit h Results for this AM CLIMATOLOGY PROFESSOR hyperglyceridemia procedure are in the results section. AST Routine 06/24/2013 11:18 Hypercholesterolemia wit h Results for this AM CLIMATOLOGY PROFESSOR hyperglyceridemia procedure are in the results section. IRON PROFILE Routine 06/24/2013 11:18 POLYCYSTIC KIDNEY, UNSPE C Results for this (IRON,TIBC,%SAT.( AM CLIMATOLOGY PROFESSOR procedure are in CALC)) the results section. UA WITH MICRO Routine 06/24/2013 11:18 POLYCYSTIC KIDNEY, UNSP EC Results for this AM CLIMATOLOGY PROFESSOR procedure are i n the results section. documented in this encounter Results ALT (SGPT) (06/24/2013 11:18 AM CLIMATOLOGY PROFESSOR) P athologist Signature ALT (SGPT) 25 0 - 69 U/L [facility] Specimen Anatomical Collection Method Collection Time Receive d Time (Source) Location / / Volume Laterality 06/24/2013 11:18 06/24/2013 AM CLIMATOLOGY PROFESSOR 11:22 AM CLIMATOLOGY PROFESSOR Narrative [facility] - 06/26/2013 2:15 PM C DT Performed at [facility], [address] [place] [address] ??[phone] Tiffany Gonzalez APRN, DNP LAB_1 Performing Organization Address [facility]/ZIP Code Phon e Number [facility] [phone] AST (06/24/2013 11:18 AM CLIMATOLOGY PROFESSOR) athologist Signature AST (SGOT) 28 0 - 66 U/L [facility] Comment: PLEASE NOTE CHANGE IN REFERENCE RANGE Specimen Anatomical Collection Method Collection Time Receive d Time (Source) Location / / Volume Laterality 06/24/2013 11:18 06/24/2013 AM CLIMATOLOGY PROFESSOR 11:22 AM CLIMATOLOGY PROFESSOR Narrative [facility] - 06/26/2013 2:15 PM C DT Performed at [facility], [address] [place] [address] ??[phone] Tiffany Gonzalez APRN, DNP LAB_1 Performing Organization Address [facility] Phon e Number [facility] [phone] (ABNORMAL) LIPID PANEL AND DIRECT LDL(IF NEEDED) (06/24/2013 11:18 AM CLIMATOLOGY PROFESSOR) [facility] Method Time Signature Hours Fasting 12 hours [facility] Cholesterol 174 0 - 199 [facility] mg/dl [facility] Triglyceride 146 0 - 149 [facility] mg/dl [facility] HDL 36 (L) >40 mg/dl [facility] LDL, Calc. 109 0 - 129 [facility] mg/dl [facility] Non HDL Chol, 138 mg/dl [facility] Calc [facility] Specimen Anatomical Collection Method Collection Time Receive d Time (Source) Location / / Volume Laterality 06/24/2013 11:18 06/24/2013 AM CLIMATOLOGY PROFESSOR 11:22 AM CLIMATOLOGY PROFESSOR Narrative [facility] - 06/26/2013 2:15 PM C DT Performed at [facility], [address] [place] [address] ??[phone] Tiffany Gonzalez APRN, DNP LAB_1 Performing Organization Address [facility]/ZIP Code Phon e Number [facility] [phone] UA WITH MICRO (06/24/2013 11:18 AM CLIMATOLOGY PROFESSOR) Patholo gist Method Time Signature Urine Color Yellow [facility] Urine Clarity Clear [facility] Sp Gr 1.015 1.005 - [facility]030 [facility] Leuk Negative NEG [facility] Nitr Negative NEG [facility] pH 7.0 4.5 - 8.0 [facility] Prot Negative NEG mg/dl [facility] Gluc Negative NEG [facility] Ket Negative NEG [facility] Urob 0.2 0.2 - 1.0 [facility] EU/dl [facility] Bili Negative NEG [facility] Blood Negative NEG [facility] RBC'S 0 0 - 3 [facility] /hpf [facility] WBC'S 0 0 - 5 [facility] Epith, 0 /hpf [facility] Squamous [facility] Bact 0 [facility] Casts 0 /lpf [facility] Specimen Anatomical Collection Method Collection Time Receive d Time (Source) Location / / Volume Laterality 06/24/2013 11:18 06/24/2013 AM CLIMATOLOGY PROFESSOR 11:22 AM CLIMATOLOGY PROFESSOR Narrative [facility] - 06/24/2013 11:39 AM CLIMATOLOGY PROFESSOR Performed at [facility], [address] [place] [phone] Tiffany Gonzalez APRN, DNP LAB_1 Performing Organization Address City/[facility] Phon e Number [facility] [phone] FERRITIN (06/24/2013 11:18 AM CLIMATOLOGY PROFESSOR) [facility] Ferritin 16 10 - 120 [facility] ng/ml Specimen Anatomical Collection Method Collection Time Receive d Time (Source) Location / / Volume Laterality 06/24/2013 11:18 06/24/2013 AM CLIMATOLOGY PROFESSOR 11:22 AM CLIMATOLOGY PROFESSOR Narrative [facility] - 06/26/2013 2:38 PM C DT Performed at [facility], [address] [place] [address] ??[phone] Tiffany Gonzalez APRN, DNP LAB_1 Performing Organization Address City/[facility] Phon e Number [facility] [phone] IRON PROFILE (IRON,TIBC,%SAT.(CALC)) (06/24/2013 11:18 AM CLIMATOLOGY PROFESSOR) athologist Signature Iron 79 37 - 170 [facility] mcg/dl [facility] TIBC 342 240 - 430 [facility] mcg/dl [facility] % Saturation, 23 15 - 50 % [facility] calc. [facility] Specimen Anatomical Collection Method Collection Time Receive d Time (Source) Location / / Volume Laterality 06/24/2013 11:18 06/24/2013 AM CLIMATOLOGY PROFESSOR 11:22 AM CLIMATOLOGY PROFESSOR Narrative [facility] - 06/26/2013 2:38 PM C DT Performed at [facility], [address] [place] [address] ??[phone] Tiffany Gonzalez APRN, DNP LAB_1 Performing Organization Address [facility] Phon e Number [facility] [phone] VITAMIN D 25-HYDROXY, TOTAL (V77.99) (06/24/2013 11:18 AM CLIMATOLOGY PROFESSOR) athologist Signature Vitamin 40.2 30.0 - [facility] D,25-OH, Tot 80.0 ng/mL [facility] Comment: Deficiency: ??< 20 ng/mL Insufficiency: ??20-29 ng/mL Optimum Level: ??30-80 ng/mL Possible Toxicity: > 80 ng/mL Specimen Anatomical Collection Method Collection Time Receive d Time (Source) Location / / Volume Laterality 06/24/2013 11:18 06/24/2013 AM CLIMATOLOGY PROFESSOR 11:37 AM CLIMATOLOGY PROFESSOR Narrative [facility] - 06/26/2013 11:42 AM CDT Performed at [facility] , [address] [place] [phone] Tiffany Gonzalez APRN, DNP LAB_1 Performing Organization Address City/[facility] Phon e Number [facility] [phone] TSH, SENSITIVE (06/24/2013 11:18 AM CLIMATOLOGY PROFESSOR) athologist Signature TSH, Sensitive 2.120 0.300 - [facility] 5.000 [facility] uIU/ml Specimen Anatomical Collection Method Collection Time Receive d Time (Source) Location / / Volume Laterality 06/24/2013 11:18 06/24/2013 AM CLIMATOLOGY PROFESSOR 11:22 AM CLIMATOLOGY PROFESSOR Narrative [facility] - 06/26/2013 2:38 PM C DT Performed at [facility], [address] [place] [address] ??[phone] Tiffany Gonzalez APRN, DNP LAB_1 Performing Organization Address City/[facility] Code Phon e Number [facility] [phone] (ABNORMAL) BASIC METABOLIC PANEL,FASTING (06/24/2013 11:18 AM CLIMATOLOGY PROFESSOR) [facility] gist Method Time Signature BUN 22 (H) 7 - 20 [facility] mg/dl [facility] Sodium 143 135 - 145 [facility] mmol/L [facility] Potassium 5.4 (H) 3.5 - 5.3 [facility] mmol/L [facility] Chloride 108 (H) 95 - 106 [facility] mmol/L [facility] CO2 23 22 - 30 [facility] mmol/L [facility] Glucose 82 70 - 100 [facility] mg/dl [facility] Hours Fasting 12 hours [facility] Creatinine 1.89 (H) 0.52 - [facility] 1.04 [facility] mg/dl GFR, Estimated 28.3 (L) >60 [facility] ml/min/1. [facility] 73m2 GFR, Est., If 34.2 (L) >60 [facility] Black ml/min/1. [facility] 73m2 Calcium 8.9 8.4 - [facility] 10.2 [facility] mg/dl Anion Gap 12 7 - 16 [facility] (calc.) mmol/L [facility] Specimen Anatomical Collection Method Collection Time Receive d Time (Source) Location / / Volume Laterality 06/24/2013 11:18 06/24/2013 AM CLIMATOLOGY PROFESSOR 11:22 AM CLIMATOLOGY PROFESSOR Narrative [facility] - 06/26/2013 2:15 PM C DT Performed at [facility], [address] [place] [address] ??[phone] Tiffany Gonzalez APRN, DNP LAB_1 Performing Organization Address City/State/ZIP Code Phon e Number [facility] [phone] documented in this encounter Visit Diagnoses Diagnosis Preventative health care - Primary Routine general medical examination at a health care facility Reflux esophagitis POLYCYSTIC KIDNEY, UNSPEC Polycystic kidney, unspecified type HYPERTENSION NOS Unspecified essential hypertension ALLERGIC RHINITIS NOS Allergic rhinitis, cause unspecified Hypercholesterolemia with hyperglyceride marilee (HRC) Mixed hyperlipidemia PMDD (premenstrual dysphoric disorder) Premenstrual tension syndromes Obstructive sleep apnea (adult) (pediatr ic) Mild persistent asthma, uncomplicated (H RC) Unspecified asthma Asthma with exacerbation, mild intermitt ent (HRC) documented in this encounter Care Teams Circuit Board Repair Technician Relationship Specialty Start Date End Date Tiffany Gonzalez APRN, DNP PCP - General 01/16/00 02/03/16 [address] [id number] documented as of this encounter
--- OUTSIDE RECORDS SUMMARY | 2021-12-28 14:12 | XMS_ITS | Encounter Summary ---
:1965 Author Organization [facility] Address [address] [place] [address] Care Team Providers Name Role Phone Tiffany Gonzalez APRN, DNP Primary Care Provider Reason for Visit Reason Onset Date Comments Surgery Scheduling 10/27/2013 Encounter Details Date Type Department Care Team Description 10/27/2013 Telephone [facility] Obstetrics and Fall, Dawna Leyva MD [facility] Scheduling Gynecology [address] [place], [place] [id number] Social History Tobacco Use Types Packs/Day Years Used Date Smoking Tobacco: Every Day Cigarettes 0.5 L ast attempted to quit: 02/23/2011 Smokeless Tobacco: Never Comments: 1/2 pack per day Alcohol Use Standard Drinks/Week Comments Yes 0.8 (1 standard drink = 0.6 oz pure alco hol) rarely Sex Assigned at Date Recorded Not on file documented as of this encounter Nursing Notes Alicia Coe - 12/06/2013 2:03 PM CDT Pt returned call. Surgery scheduled at [facility] 01/02/14 at 11:15. Pre-op and post-op appts made. Brochuremailed to pt. Alicia Coe Alicia Coe - 10/27/2013 1:57 PM CDT LM for pt to return call. Alicia Coe documented in this encounter Plan of Treatment Not on filedocumented as of this encounter Visit Diagnoses Not on filedocumented in this encounter Care Teams Cleaner And Presser Relationship Specialty Start Date End Date Tiffany Gonzalez APRN, GAIL PCP - General 01/16/00 02/03/16 [address] [id number] [id number] documented as of this encounter
--- OUTSIDE RECORDS SUMMARY | 2021-12-28 14:12 | XMS_ITS | Encounter Summary ---
:1965 Author Organization [facility] Address [address] [place] [address] Care Team Providers Name Role Phone Tiffany Gonzalez APRN, DNP Primary Care Provider Reason for Referral (Routine) - Incomplete Specialty Diagnoses / Procedures Referred By Contact Refer red To Contact Procedures Dawna Mccullough MD Case Request OR - Gynecologic [address] [facility] Surg: DILATATION AND CURETTAGE [place], [place] [address] WITH HYSTEROSCOPY Referral ID Status Reason Start Date Expiration Date Visits V isits Requested Authorized [id number] Incomplete 10/24/2013 1 1 Reason for Visit Reason Comments Follow Up Ultrasound Consult/Transfer Care (Routine) - Closed Specialty Diagnoses / Procedures Referred By Contact Refer red To Contact Diagnoses Dysmenorrhea Tiffany Gonzalez APRN, GAIL [address] [place] [address] Referral ID Status Reason Start Date Expiration Date Visits Requ ested Visits Authorized [id number] Closed 08/28/2013 1 1 Encounter Details Date Type Department Care Team Description 10/24/2013 Office Visit [facility] Obstetrics Mike Becker, Cathi ormal uterine and Gynecology DO bleeding (Primary Dx) [address] [place] [address] [place], [place] [phone] [id number] Social History Tobacco Use Types Packs/Day [...] Sign Reading Time Taken Comments Blood Pressure 141/83 10/24/2013 1:12 PM CDT Pulse 59 10/24/2013 1:12 PM CDT Temperature - - Respiratory Rate - - Oxygen Saturation - - Inhaled Oxygen Concentration - - Weight - - Height - - Body Mass Index - - documented in this encounter Patient Instructions Patient InstructionsMike Becker DO - 10/24/2013 1:34 PM CDT We will contact you regarding your procedure for date and time. documented in this encounter Progress Notes Mike Becker DO - 10/24/2013 1:43 PM CDT Obstetrics and Gynecology Clinic Note Date of Service: 10/24/2013 CC: Abnormal uterine bleeding - Polyp HPI: Stephanie Norman is a 48 yr nulliparous who is here for evaluation of abnormal uterine bleeding. She states that this began approximately 3-4 months ago. She states that she has been experiencing increased menstrual bleeding in the form of heavier menses. She states that she has been using more pads during the first three days of her menses, specifically stating that she has had to use 1 pad per hour for the first day. In addition, she states that she has been experiencing intermenstrual spottingevery 2-3 wks. Her LMP was 10/16/13, and she states that her menses has been every 28-32 days without intermenstrualbleeding up to approximately 3 months ago. She has only used LACHELLE's for control for two years during her 20's. Past Medical History Diagnosis Date ??? HYPERTENSION NOS 06/01/2003 ??? VARICELLA UNCOMPLICATED ??? Reflux esophagitis ??? POLYCYSTIC KIDNEY, UNSPEC ??? ALLERGIC RHINITIS NOS ??? ASTHMA, UNSPECIFIED ??? Hypercholesterolemia with hyperglyceridemia ??? Tobacco use disorder ??? PMDD (premenstrual dysphoric disorder) on Celexa ??? ENDOMETRIAL POLYP ??? Migraine without aura, without mention of intractable migraine without mention of status migrainosus onset in childhood ??? Snoring Past Surgical History Procedure Laterality Date ? ? Hysteroscpy surg; w/bx &/ polypect 03/31/04 ??? Appendectomy 04-07-2010 Family History Problem Relation Age of Onset ??? Cancer, Breast Mother breast, Dx age 40. 4 yrs later. ??? Cancer, Breast Father breast. Dx age 65. 2006. Cancer and Heart attack in mid - 60s. ??? Kidney Disorder Father polycystic kidney disease ??? Depression Mother ??? Depression Other uncle committed suicide ??? Cancer, Melanoma Father ??? Depression Brother History Social History ??? Marital Status: Significant Other/Partner Spouse Name: Shreyas Number of Children: 6 ??? 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 Smoking [...] Shreyas -one biological daughter and five adopted children06/24/2013Engaged to sandra Pritchett Medication list and allergies reviewed in [employer]. Review of systems: See HPI. no unintentional weight loss, no early satiety. no abdominal pain, bloating, bowel/bladder changes. no migraine headaches. Previous imagin10/24/13 U/S Impression: Uterus shows presence of a fibroid on the posterior wall which is subserosal in location and measures 3.3 cm x 3.0 cm x 3.4 cm. This does not close to the endometrial cavity. Endometrial cavity shows presence of an endometrial polyp measuring 1.5 cm x 0.6 cm x 1.2 cm. This appears to be in the mid cavity. Endometrial lining appears normal. Right ovary appears normal. Left ovary appears normal. No adnexal masses seen. Physical Exam Blood pressure 141/83, pulse 59, last menstrual period 10/16/2013. Estimated body mass index is 38.34 kg/(m^2) as calculated from the following: Height as of 06/24/13: 5' 6.1 (1.679 m). Weight as of 08/28/13: 238 lb 4 oz (108.069 kg). General: alert, no distress, pleasant Heart: RRR Lungs: CTA Abdomen: soft, non-tender, non-distended. Bowel sounds normal. No organomegaly. Assessment: 48 yr Nulliparous female with abnormal uterine bleeding with 3 cm subserosal posterior fibroid and endometrial polyp, Plan: Will schedule a hysteroscopy with D&C to evaluate the endometrium for hyperplasia and/or malignant change. We will also obtain a Hgb today due to her history of vaginal bleeding. In addition,we discussed that removal of this polyp may not relieve her from her heavy menses and there is a possibility of her needing further treatment in the form of hormonal contraception in the future. Mike Becker DO 10/24/2013, 1:43 PM Dawna Mccullough MD - 10/24/2013 1:31 PM CDT Date of Service: 10/24/13 ???I saw and evaluated the patient with the resident and I agree with Dr. Becker's findings and plan. Please see the note dated 10/24/2013.? She needs hysteroscopy with D&C to remove her polyp. Dawna Mccullough MD Leo Christy LPN - 10/24/2013 1:13 PM CDT Pre-visit planning Accompanied by? Unaccompanied Does patient want a shipping room helper present during exam? No PARA (verify that this matches the OB History) 0000 Method of control? NONE Signature (Rooming Staff) LEO CHRISTY [[id number]] Today's visit: Chief Complaint Patient presents with ??? Follow Up Ultrasound Do you need any refills? no PARA: No obstetric history on file. Patient's last menstrual period was 10/16/2013 (exact date). BP Readings from Last 1 Encounters: 10/24/13 141/83 Leo Christy LPN documented in this encounter Plan of Treatment Not on filedocumented as of this encounter Results (ABNORMAL) HEMOGRAM/PLTS (10/24/2013 1:53 [...] 10/24/2013 6:59 PM C DT Performed at [facility], [address] [place] [address] ??[id number] Dawna Mccullough MD LAB_1 Performing Organization Address City/State/ZIP Code Phon e Number [facility] [phone] documented in this encounter Visit Diagnoses Diagnosis Dysmenorrhea Abnormal uterine bleeding Unspecified disorder of menstruation and other abnormal bleeding from female genital tract Abnormal uterine bleeding - Primary Unspecified disorder of menstruation and other abnormal bleeding from female genital tract documented in this encounter Care Teams Rail Flaw Detector Operator Relationship Specialty Start Date End Date Tiffany Gonzalez APRN, DNP PCP - General 01/16/00 02/03/16 [address] [place] [address] documented as of this encounter
--- OUTSIDE RECORDS SUMMARY | 2021-12-28 14:12 | XMS_ITS | Encounter Summary ---
:1965 Author Organization [facility] Address [address] [place] [address] Care Team Providers Name Role Phone Tiffany Gonzalez ENGINE REPAIRER SERVICE, DNP Primary Care Provider Reason for Visit Reason Comments Post Op Exam D&C 01/02/14 Encounter Details Date Type Department Care Team Description 01/18/2014 Office Visit [facility] Obstetrics Mike Becker, Abn ormal uterine bleeding (Primary Dx); and Gynecology DO Follow-up examination, following other s urgery [address] [facility] [address] [place] [address] [place], [place] [phone] [id number] Social History Tobacco Use Types Packs/Day Years [...] Sign Reading Time Taken Comments Blood Pressure 138/93 01/18/2014 1:08 PM CDT Pulse 58 01/18/2014 1:08 PM CDT Temperature 36.7 ??C (98 ??F) 01/18/2014 1:08 PM CDT Respiratory Rate - - Oxygen Saturation - - Inhaled Oxygen Concentration - - Weight 107 kg (235 lb 12.8 oz) 01/18/2014 1:03 PM CDT Height - - Body Mass Index 38.06 01/02/2014 10:45 AM CDT documented in this encounter Progress Notes Ladan Patel MD - 01/19/2014 12:31 PM CDT Date of Service: 01/18/2014 I reviewed the care provided by the resident after the patient encounter. I agree with ???sdiagnosis of s/p uncomplicated hysteroscopy, D&C, polypectomy, for evaluation of abnormal uterine bleeding, and the plan above. Please see the note dated 01/18/2014. Ladan Patel MD Mike Becker DO - 01/18/2014 1:31 PM CDT [employer]ST[employer] THREAD WINDER NOTE: S: This is a 48 y/o here for follow up from her hysteroscopy and D&C on 01/02/14. She first presented to me in October of 2013 with several months of intermenstrual bleeding. She had an U/S that demonstrated a 1cm polyp and a 3x3 cm submucosal fibroid. The hysteroscopy and D&C went well per the op notes. The polyp was removed and the submucosal fibroid was seen. The pathology from the specimens are benign. Since her procedure, she is doing well.She experienced the expected vaginal spotting during the first several days after her procedure. Since then she hasn't had any issues. O: BP 138/93 Pulse 58 Temp(Src) 98 ??F (36.7 ??C) (Oral) Wt 235 lb 12.8 oz (106.958 kg) LMP 11/27/2013 Pathology: benign polyp and endometrial specimens A/P: 1. 48 y/o G0 with intermenstrual bleeding s/p D&C and hysteroscopy: - endometrial polyp was removed -> benign pathology - submucosal fibroid on the posterior uterine wall is present - continue to observe for any intermenstrual bleeding as there is no guarantee that removal of polypwill completely stop it -> if it continue, then OCP's can be an option 2. Will need to schedule annual exam: - will need mammogram at that time -> last one 02/28 (normal) - will need to schedule first colonoscopy at her annual exam - pap smear normal on 02/28 -> next pap smear in 2014 - thyroid studies normal on 06/30 -> next study in 2018 - lipid panel normal on 06/30 -> next study in 2018 - DM testing was normal in 08/30 -> next check in 2016 Mike Becker DO documented in this encounter Plan of Treatment Not on filedocumented as of this encounter Visit Diagnoses Diagnosis Abnormal uterine bleeding - Primary Unspecified disorder of menstruation and other abnormal bleeding from female genital tract Follow-up examination, following other s urgery documented in this encounter Care Teams Senior Backup Administrator Relationship Specialty Start Date End Date Tiffany Gonzalez, PALOMO, DNP PCP - General 01/16/00 02/03/16 [id number] [place] [id number] documented as of this encounter
--- OUTSIDE RECORDS SUMMARY | 2021-12-28 14:12 | XMS_ITS | Encounter Summary ---
:1965 Author Organization [email or web address] Address [address] [place] [address] Care Team Providers Name Role Phone Tiffany Gonzalez APRN, DNP Primary Care Provider Encounter Details Date Type Department Care Team Description 08/23/2013 Orders Only External to Alyssia Du MD [address] [place] [id number] (Wo rk) Social History Tobacco Use Types [...] Procedure Name Priority Date/Time Associated Comments Diagnosis UNLISTED ULTRASOUND 08/24/2013 12:00 AM R esults for this PROCEDURE CDT procedure are i n the results section. ULTRASOUND 08/23/2013 12:00 AM Results for this ABDOMEN/PELVIS CDT procedure are in the results section. documented in this encounter Results ULTRASOUND (08/24/2013 12:00 AM CDT) Anatomical Region Laterality Modality Other Specimen (Source) Anatomical Location Collection Method / Collectio n Time Received Time / Laterality Volume 08/24/2013 Narrative This result has an attachment that is no t available. PROC_2 ULTRASOUND ABDOMEN/PELVIS (08/23/2013 12:00 AM CDT) Anatomical Region Laterality Modality Other Specimen (Source) Anatomical Location Collection Method / Collectio n Time Received Time / Laterality Volume 08/23/2013 Narrative This result has an attachment that is no t available. DUMMY/OTHER/AR documented in this encounter Visit Diagnoses Not on filedocumented in this encounter Care Teams Correctional Medicine Physician Relationship Specialty Start Date End Date Tiffany Gonzalez APRN, DNP PCP - General 01/16/00 02/03/16 [address] [place] [id number] documented as of this encounter
--- OUTSIDE RECORDS SUMMARY | 2021-12-28 14:12 | XMS_ITS | Encounter Summary ---
:1965 Author Organization [facility] Address [address] [place] [address] Care Team Providers Name Role Phone Tiffany Gonzalez APRN, DNP Primary Care Provider Reason for Visit Reason Comments Preop Exam Encounter Details Date Type Department Care Team Description 12/21/2013 Office Visit [facility], Other specified pre-operative examination (Primary Dx); Practice [facility] Still, POLYCYSTIC KIDNEY, UNSPEC; [address] GAIL CULVER HYPERTENSION NOS; [place], [place] [address] Hypercholesterolemia with hyperglyceride marilee; [address] [place] [address] ALLERGIC RHINITIS NOS; [phone] Reflux esophagi tis; (Work) PMDD (premenstrual dysphoric disorder); [phone] Obstructive sle ep apnea (adult) (pediatric); (Fax) Mild persistent asthma, uncomplicated; Chronic kidney disease, stage IV (severe); Abnormal uterin e bleeding Social History Tobacco Use Types Packs/Day Years [...] Sign Reading Time Taken Comments Blood Pressure 137/94 12/21/2013 1:44 PM CDT Pulse 60 12/21/2013 1:44 PM CDT Temperature 36.8 ??C (98.3 ??F) 12/21/2013 1:33 PM CDT Respiratory Rate - - Oxygen Saturation - - Inhaled Oxygen Concentration - - Weight 105.5 kg (232 lb 8 oz) 12/21/2013 1:33 PM CDT Height 168.9 cm (5' 6.5) 12/21/2013 1:33 PM CDT Body Mass Index 36.96 12/21/2013 1:33 PM CDT documented in this encounter Patient Instructions Patient InstructionsSchimpTiffanie pazJAILYN - 12/21/2013 1:42 PM CDT On the day of surgery please do not wear any hair product, including hair spray, gels, etc, and please bring all your medications with you on your day of surgery. If you have sleep apnea and have an oral appliance or CPAP equipment, bring your equipment to the hospital. Please, follow instructions for not taking anything by mouth the night before your procedure. However, some medications should not be held for surgery because they are beneficial, and some medications need special attention. Medications for am: I recommend you take with a small sip of water am of surgery Medications that require special changes include: aspirin: stop 7 days before surgery Flu shot today. . documented in this encounter Progress Notes Tiffany Gonzalez APRN, DNP - 12/21/2013 1:42 PM CDT Name: Stephanie Norman : 1965 Primary physician: Tiffany Gonzalez DNP. Historical: Stephanie Norman is a 48 yr old female is here for preoperative cardiac and risk evaluation. Patient is scheduled for D & C & Hysteroscopy on 01/02/[address] [facility]ccullough [facility] . Pertinent history: Abnormal uterine bleeding approximately 3-4 months ago. Heavier menses. Her LMP was 10/16/13, and she states that her menses has been every 28-32 days without intermenstrualbleeding up to approximately 3 months ago. She has only used LACHELLE's for control for two years during her 20's. Preoperative Screening Questions: Any problems with / history of... Tightening or pressure in chest with activity? no Waking at night with shortness of breath? no Swelling of feet or ankles recently? Yes Stage 4 Kidney Disease Difficulty sleeping flat at night because of shortness of breath? no Troubled by shortness of breath when Walking on the level? Climbing a flight of stairs? no no Getting pains in the calf muscles when walking? no Chest sounds like wheezy or whistling? no Cough, runny nose, or cold symptoms currently? YES cough, sinus pressure A chronic cough? no Bleeding or clotting problems for you or close relatives? no Herbal supplements or medications not on the med list being taken? no Taking steroids or immunosuppressive medications. no Aspirin or NSAIDS taken in the last two weeks? no Anemia or taking iron pills? YES Low red count, pt takes once a week Anesthesia complications for you or close relatives? no History of sleep apnea, loud snoring, daytime drowsiness or CPAP at home? YES CPAP Heart attack in the last 30 days? no Recent memory problems (dementia)? no Is there a history of COPD(emphysema) or asthma? Yes asthma Allergies Allergen Reactions ??? Amoxicillin ??? Neomycin topical sensitization ??? Penicillins Medications: Current Outpatient Prescriptions Medication Sig ??? acetaminophen (TYLENOL EXTRA STRENGTH) 500 MG tablet Take 500-1,000 mg by mouth every 4 hours asneeded. ??? ALBUterol 2.5 mg/3 mL, 0.083%, nebulizer solution Inhale 3 mL by mouth 4 times a day as needed for Wheezing or Shortness of Breath. ??? rlpsfqw-hcxnvstvodijg-vyerbrxp (EXCEDRIN MIGRAINE) 250-250-65 MG tablet Take 1 [...] TABS 2 tablets daily in cold season Patient Active Problem List Diagnosis ??? VARICELLA [...] ??? Chronic kidney disease, stage IV (severe) Habits: History Substance Use Topics ??? Smoking status: Current Every Day Smoker -- 0.50 packs/day Types: Cigarettes Last Attempt to Quit: 02/23/2011 ??? Smokeless tobacco: Never Used Comment: 1/2 pack per day ??? Alcohol Use: 0.5 oz/week 1 Cans of beer per week Comment: rarely Family History Problem Relation Age of Onset ??? Cancer, Breast Mother breast, Dx age 40. 4 yrs later. ??? Cancer, Breast Father breast. Dx age 65. 2006. Cancer and Heart attack in mid - 60s. ??? Kidney Disorder Father polycystic kidney disease ??? Depression Mother ??? Depression Other uncle committed suicide ??? Cancer, Melanoma Father ??? Depression Brother Past Surgical History Procedure Laterality Date ? ? Hysteroscpy surg; w/bx &/ polypect 03/31/04 ??? Appendectomy 04-07-2010 Observed: Physical Examination: Vital Signs: Blood pressure 163/116, pulse 64, temperature 98.3 ??F (36.8 ??C), temperature source Oral, height 5' 6.5 (1.689 m), weight 232 lb 8 oz (105.461 kg), last menstrual period 11/27/2013. Estimated body mass index is 36.97 kg/(m^2) as calculated from the following: Height as of this encounter: 5' 6.5 (1.689 m). Weight as of this encounter: 232 lb 8 oz (105.461 kg). General: ambulatory, well nourished, alert. HEENT: oropharynx is normal. Neck: Thyroid not enlarged. No bruits. No jugular venous distention Cardiovascular: regular rate and rhythm, normal S1 and S2 without murmur or click Chest/Lungs: clear to auscultation, no wheezes or rales Abdomen: Soft, non-tender, no masses, no hepatomegaly or splenomegaly. Extremities: No cyanosis, clubbing or edema. Pulses intact. Neurologic: Alert and oriented to person, place and time. Skin: No rash Data: Labs: HGB (g/dl) Date Value 10/24/2013 12.0 Normal: 12-17 Another hemoglobin from today is pending ECG: not indicated for this procedure Assessment and Plan: Pre-op cardiac & risk evaluation: Patient is medically optimized for planned procedure. Cardiac risk for the planned procedure is LOW No active cardiac conditions. Low risk procedure - no additional cardiac evaluation is needed. Medication changes are listed in patient instructions below. Special risks: -Renal failure risk (GFR<45 or other risk factors) documented in this encounter Plan of Treatment Not on filedocumented as of this encounter Procedures Procedure Name Priority Date/Time Associated Diagnosis Comme nts CREATININE / GFR Routine 12/21/2013 2:21 PM HYPERTENSION NOS R esults for this CDT procedure are i n the results section. HEMOGLOBIN, BLOOD Routine 12/21/2013 2:21 PM HYPERTENSION NOS Results for this CDT procedure are i n the results section. documented in this encounter Results (ABNORMAL) CREATININE / GFR (12/21/2013 2:21 PM CDT) Patholo gist Method Time Signature Creatinine 1.97 (H) 0.52 - [facility] mg/dl GFR, Estimated 29 (L) >60 [facility] ml/min/1. [facility] 73m2 GFR, Est., If 34 (L) >60 [facility] ml/min/1. [facility] 73m2 Specimen Anatomical Collection Method Collection Time Receive d Time (Source) Location / / Volume Laterality 12/21/2013 2:21 PM 4 2:26 CDT PM CDT Narrative [facility] - 12/21/2013 8:27 PM C DT Performed at [facility], [address] [place] [address] ??[id number] Tiffany Gonzalez APRN, DNP LAB_1 Performing Organization Address [facility] Phon e Number [facility] [phone] HEMOGLOBIN, BLOOD (12/21/2013 2:21 PM CDT) P athologist Signature Hemoglobin 13.1 12.0 - 16.0 [facility] g/dl Specimen Anatomical Collection Method Collection Time Receive d Time (Source) Location / / Volume Laterality 12/21/2013 2:21 PM 4 2:26 CDT PM CDT Narrative [facility] - 12/21/2013 7:13 PM C DT Performed at [facility], [address] [place] [address] ??[id number] Tiffany Gonzalez APRN, DNP LAB_1 Performing Organization Address [facility] Phon e Number [facility] [phone] documented in this encounter Visit Diagnoses Diagnosis Other specified pre-operative examinatio n - Primary POLYCYSTIC KIDNEY, UNSPEC Polycystic kidney, unspecified type HYPERTENSION NOS Unspecified essential hypertension Hypercholesterolemia with hyperglyceride marilee ([facility]) Mixed hyperlipidemia ALLERGIC RHINITIS NOS Allergic rhinitis, cause unspecified Reflux esophagitis PMDD (premenstrual dysphoric disorder) Premenstrual tension syndromes Obstructive sleep apnea (adult) (pediatr ic) Mild persistent asthma, uncomplicated ([facility]) Unspecified asthma Chronic kidney disease, stage IV (severe ) ([facility]) Chronic kidney disease, Stage IV (severe ) Abnormal uterine bleeding Unspecified disorder of menstruation and other abnormal bleeding from female genital tract documented in this encounter Care Teams Methods Study Analyst Relationship Specialty Start Date End Date Tiffany Gonzalez APRN, DNP PCP - General 01/16/00 02/03/16 [address] [place] [id number] documented as of this encounter
--- OUTSIDE RECORDS SUMMARY | 2021-12-28 14:12 | XMS_ITS | Encounter Summary ---
:1965 Author Organization [facility] Address [address] [place] [address] Care Team Providers Name Role Phone Tiffany Gonzalez APRN, DNP Primary Care Provider Encounter Details Date Type Department Care Team Description 08/23/2013 Orders Only External to Alyssia Du MD [address] [place] [address] (Wo rk) Social History Tobacco [...] Priority Date/Time Associated Diagnosis Comme nts CT ABDOMEN/PELVIS 08/23/2013 12:00 AM Res ults for this CDT procedure are i n the results section. documented in this encounter Results CT ABDOMEN/PELVIS (08/23/2013 12:00 AM CDT) Anatomical Region Laterality Modality Other Specimen (Source) Anatomical Location Collection Method / Collectio n Time Received Time / Laterality Volume 08/23/2013 Narrative This result has an attachment that is no t available. DUMMY/OTHER/AR documented in this encounter Visit Diagnoses Not on filedocumented in this encounter Care Teams Shaker Washer Relationship Specialty Start Date End Date Tiffany Gonzalez APRN, DNP PCP - General 01/16/00 02/03/16 [address] [id number] documented as of this encounter
--- OUTSIDE RECORDS SUMMARY | 2021-12-28 14:12 | XMS_ITS | Encounter Summary ---
:1965 Author Organization [facility] Address [address] [place] [address] Care Team Providers Name Role Phone Tiffany Gonzalez APRN, DNP Primary Care Provider [phone] Reason for Visit Auth/Cert - Closed Specialty Diagnoses / Procedures Referred By Contact Refer red To Contact Diagnoses Endometrial polyp . Referral ID Status Reason Start Date Expiration Date Visits Requ ested Visits Authorized [id number] Closed 1 1 Encounter Details Date Type Department Care Team Description 01/02/2014 Surgery [facility] Same Day Fall, Dawna Leyva MD DILATATION AND Surgery Center CURETTAGE WITH [address] HYSTEROSCOPY, [place] [address] OF POLYP [phone] Social History Tobacco Use Types Packs/Day Years [...] Sign Reading Time Taken Comments Blood Pressure 159/88 01/02/2014 10:45 AM CDT Pulse 54 01/02/2014 10:45 AM CDT Temperature 36.6 ??C (97.8 ??F) 01/02/2014 10:45 AM CDT Respiratory Rate 15 01/02/2014 10:45 AM CDT Oxygen Saturation 99% 01/02/2014 10:45 AM CDT Inhaled Oxygen Concentration - - Weight 105.2 kg (232 lb) 01/02/2014 10:45 AM CDT Height 167.6 cm (5' 6) 01/02/2014 10:45 AM CDT Body Mass Index 37.45 01/02/2014 10:45 AM CDT documented in this encounter Discharge Instructions Discharge InstructionsElisabeth Lyons RN - 01/02/2014 1:43 PM CDT Discharge Instructions for: Stephanie Norman Thank you for choosing [facility] as your provider. A copy of [...] is after hours call the Careline at [phone]. [facility] HYDROTHERAPIST, Dr. Mccullough's office. Follow Up Appointment 01/18/2014 1:00 PM Mike Everett Air Compressor Operator Anesthesia Today you received General/Minor Sedation: Rest [...] drug information enclosed in your pharmacy bag. Stella (Hydrocodone/Acetaminophen) is the pain medication ordered for you. This medication causes sleepiness, slowed reflexes, problems with constipation, nausea and constipation. Take with food to avoid stomach upset. Increase fluid intake and add fruit and fiber to your diet to avoid constipation. You may not drive for 8 hours after taking Stella. DO NOT EXCEED 12 TABS IN 24 HOURS You had 2 tabs Stella at 1:45pm. May have next dose at [...] it. It is our goal to make [facility] your hospital of choice and want you [...] or mild intermittent (HRC) Shortness of Breath. xuuslia-kagjpdgtartcw-gbmu Take 1 Tab by mouth 0 eine [...] Mccullough MD - 01/02/2014 12:55 PM CDT [facility] Operative Progress Note Surgery Date: 01/02/2014 Primary Surgeon: Surgeon(s): Dawna Mccullough MD Assistants: Post-op Diagnosis: Endometrial polyp Procedure: Procedure(s) (LRB): DILATATION AND CURETTAGE WITH HYSTEROSCOPY, REMOVAL OF POLYP (N/A) EBL: * No values recorded between 01/02/2014 12:27 PM and 01/02/2014 12:27 PM * Specimens: Specimen ID Type Site Comments Sent To endometrial currettings and polyp PERMANENT HP SPECIMEN COOLER Complications / Findings: Uterine cavity [...] Results TEST(URINE),POINT OF CARE (not available at [facility]) (01/02/2014 10:34 AM CDT) [facility] Method Time Signature HCG, Urine Negative [facility] Negative = <25 mIU/ml HOSPITAL If is suspected, suggest repeat in 48-72 hours or confirm results with a quantitative hCG test. Specimen Anatomical Collection Method Collection Time Receive d Time (Source) Location / / Volume Laterality Urine specimen 01/02/2014 10:34 4 2:11 (specimen) AM CDT PM CDT Narrative [facility] - 01/02/2014 2:12 PM CD T Performed at [facility] , [address] [place] [id number] Victorina Mclean MD LAB_1 Performing Organization Address City/State/ZIP Code Phon e Number [address] [address] SURGICAL PATH (01/02/2014 7:00 AM CDT) [facility] gist Method Time Signature Histology (NOTE) [facility] Surgical Final Report HOSPITAL Patient Name: STEPHANIE NORMAN Taken: 01/02/2014 Received: 01/02/2014 Reported: 01/03/2014 Physician(s): DAWNA MCCULLOUGH ([id number]) ? Final Pathologic Diagnosis Endometrium, curettings -- ?1. ??Fragments consistent with endometrial polyp ?2. ??No hyperplasia, atypia or malignancy seen Electronically Signed Out By ? Geneva Moreno MD ??([id number] ) Procedures/Addenda Clinical History Endometrial polyp ?? Gross Description The specimen is received in formalin and labeled with the pa tient's name and endometrial curetting and polyp. ??The specimen c onsists of a 2.1 x 1.7 x 0.3 cm aggregate of dark purple hemorrhage adm ixed with sahu pink to purple soft tissue fragments. ??The specimen is filtered and entirely submitted in one cassette. ??js jds/01/02/2014 Microscopic Description Microscopic examination is performed on one slide. ?? ejaa/01/03/2014 Geneva Moreno MD ??([id number] ) [facility] Department of Pathology [address] [place] [address] ??[id number] Specimen Anatomical Collection Method Collection Time Receive d Time (Source) Location / / Volume Laterality OTHER / Unknown 01/02/2014 7:00 AM 2013 2:52 CDT PM CDT Dawna Mccullough MD LAB_1 Performing Organization Address City/State/ZIP Code Phon e Number [address] [address] documented in this encounter Visit Diagnoses Diagnosis Endometrial polyp Polyp of corpus uteri documented in this encounter Administered Medications Inactive Administered [...] Administration documented in this encounter Care Teams Production Tech Relationship Specialty Start Date End Date Tiffany Gonzalez APRN, DNP PCP - General 01/16/00 02/03/16 [address] [place] [id number] documented as of this encounter
--- OUTSIDE RECORDS SUMMARY | 2021-12-28 14:12 | XMS_ITS | Encounter Summary ---
:1965 Author Organization [facility] Address [address] [place] [address] Care Team Providers Name Role Phone Tiffany Gonzalez APRN, GAIL Primary Care Provider Reason for Visit Reason Comments Refill Encounter Details Date Type Department Care Team Description 04/24/2013 Refill [facility] Tiffany Gonzalez, Refill [address] [place] [address] [address] [facility] [phone] [place], [place] [id number] (Wo rk) Social History Tobacco Use Types [...] Notes Interface, Out Surescripts Prov Query - 04/24/2013 9:00 PM CST citalopram (AKA CELEXA) 40 MG tablet [Pharmacy Med Name: CITALOPRAM HYDROBROMIDE 40MG TABS] - REFILL: Review - REASON: Medication is not assigned to a protocol. - PROTOCOL: None Exists - LAST PRIMARY CARE VISIT: 04/22/2012 - NEXT PRIMARY CARE VISIT: None - LAST REFILLED ON: 03/14/2012, QTY: 90, Refills: 3, Sig: take 1 tab by mouth daily. (changed but equivalent) Powered by [employer], Reference: [id number], 04/24/2013 'S ASSISTANT documented in this encounter ED Notes Interface, Out [employer] Query - 04/24/2013 9:00 PM CST Order(s) created erroneously. Erroneous order ID: [id number] Order moved by: ParaSh[employer] Order move date/time: 04/24/2013 9:00 PM Source Patient: [id number] Source Contact: 04/24/2013 Destination Patient: [id number] Destination Contact: 04/24/2013 'S ASSISTANT documented in this encounter Plan of Treatment Not on filedocumented as of this encounter Visit Diagnoses Not on filedocumented in this encounter Care Teams Core Oven Tender Relationship Specialty Start Date End Date Tiffany Gonzalez APRN, DNP PCP - General 01/16/00 02/03/16 [address] [place] [id number] documented as of this encounter
--- OUTSIDE RECORDS SUMMARY | 2021-12-28 14:12 | XMS_ITS | Encounter Summary ---
:1965 Author Organization [facility] Address [address] [place] [address] Care Team Providers Name Role Phone Tiffany Gonzalez APRN, GAIL Primary Care Provider [phone] Reason for Visit Reason Onset Date Comments AFTERCARE, SURGICAL 01/03/2014 Encounter Details Date Type Department Care Team Description 01/03/2014 Telephone Touch of Classic Same Day Dawna Marshall [facility], SURGICAL Surgery Center RN [address] [place], [place] [id number] Social History Tobacco Use Types Packs/Day Years [...] on filedocumented in this encounter Care Teams Sales Coach Relationship Specialty Start Date End Date Tiffany Gonzalez APRN, GAIL PCP - General 01/16/00 02/03/16 [address] [id number] documented as of this encounter
--- OUTSIDE RECORDS SUMMARY | 2021-12-28 14:12 | XMS_ITS | Encounter Summary ---
:1965 Author Organization [facility] Address [address] [place] [address] Care Team Providers Name Role Phone Haylee Alanis APRN, CNP Primary Care Provider [phone] Encounter Details Date Type Department Care Team Description 08/23/2013 Outside Hospital External to External, [facility] H[place]ORY [place] [address] Social History Tobacco Use Types Packs/Day Years [...] on filedocumented in this encounter Care Teams Information Security Analyst Relationship Specialty Start Date End Date Haylee Alanis APRN, LINING LAYER PCP - General Nurse Practitioner 02/04/[address] [place] [address] documented as of this encounter
--- OUTSIDE RECORDS SUMMARY | 2021-12-28 14:12 | XMS_ITS | Encounter Summary ---
:1965 Author Organization [facility] Address [address] [place] [address] Care Team Providers Name Role Phone Tiffany Gonzalez APRN, DNP Primary Care Provider [phone] Reason for Visit Reason Comments Revisit Encounter Details Date Type Department Care Team Description 04/04/2014 Office Visit [facility] Nephrology Lisa Patrick, Chronic kidney disease, stag e IV (severe) (Primary Dx); [address] [facility] [place], MORTGAGE ADVISOR Tobacco use disorder; [place] [address] [address] [facility] HYPERTENSION NOS; [phone] [facility] [place] [place] [address] Social History Tobacco Use Types Packs/Day Years [...] Sign Reading Time Taken Comments Blood Pressure 133/81 04/04/2014 1:56 PM SNACK STEWARDESS Pulse 62 04/04/2014 1:56 PM SNACK STEWARDESS Temperature - - Respiratory Rate - - Oxygen Saturation - - Inhaled Oxygen Concentration - - Weight 107.5 kg (237 lb) 04/04/2014 1:55 PM SNACK STEWARDESS Height - - Body Mass Index 38.25 01/02/2014 10:45 AM CDT documented in this encounter Patient Instructions Patient InstructionsLisa Patrick - 04/04/2014 2:19 PM CST 1) stop by the lab for blood and urine tests today 2) No NSAIDS 3) maintain good oral hydration 4) monitor your blood pressure. Goal B/P <130/80, call me/email if your blood pressures are running above goal. 5) stop smoking 6) return to clinic in 3 months Lisa Galvan CNP 04/04/2014, 2:24 PM K STEWARDESS documented in this encounter Progress Notes Lisa Patrick - 04/04/2014 2:36 PM CST Nephrology Office Follow up note Patient Name: Stephanie Norman. . : 1965. 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 - patient part of a 7 year study at the [facility]; tabatha study, followed by Dr. Sepulveda - has had problems with cystic bleeding in the past 2) TREMAINE, 3) HTN 4) tobacco use 5) hyperlipidemia Ms. Norman overall is feeling ok. Chief complaint is ongoing vaginal bleeding after hytserscopy and procedure to remove a polyp. Denies N/V/D, SOB, fever/chills, CP/palp, PEREZ or visual disturbances, abdominal discomfort, dysuria/hematuria/decrease in UO, black or tarry stools, edema or increase in edema, myoclonic jerking, pruritus, metallic taste or hiccups. appetite and energy are at baseline. Patient does note migraines about once a month; she does take Excedrin with migraines. Patient Active Problem List Diagnosis ??? VARICELLA [...] for Wheezing or Shortness of Breath. ??? 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 Smoking [...] biological daughter and five adopted children06/24/2013Engaged to Shreyas family history Review of Systems Complete Review of Systems is negative, unless noted in HPI OBJECTIVE: BP 133/81 Pulse 62 Wt 237 lb (107.502 kg) HEENT: Normocephalic, atraumatic. . Neck: No masses,. [...] PM RBC 3.91* 10/24/2013 1:53 PM HGB 13.1 12/21/2013 2:21 PM HCT 36.2 10/24/2013 1:53 PM MCV [...] HYPERCALCEMIA <28 HIGH CALCIUM (mg/dl) Date Value 08/30/2013 8.8 VITAMIN D, 25-OH, TOT (ng/mL) Date Value 06/24/2013 40.2 ALKALINE PHOSPHATASE (U/L) Date Value 01/01/2009 38 GFR EST IF (ml/min/1.73m2) Date Value 12/21/2013 34* GFR, ESTIMATED (ml/min/1.73m2) Date Value 12/21/2013 29* CREATININE (mg/dl) Date Value 12/21/2013 1.97* ASSESSMENT: 1) CKD 4/ PCKD: Patient resumes the study next week. CKD has been progressive. Patient reports that her sister is willing to donate a kidney but she has a different blood type. Will refer to transplant center when GFR gets closer to 21. Will order a BMP, TP/creat, magnesium and phosphorus today. Patient appears euvolemic, no uremic symptoms. Advised patient to stop Excedrin. No NSAIDs. Maintain good oral hydration. 2) hypertension: Blood pressure was elevated upon arrival. Also noted a significant orthostatic drop. Repeat B/P improved at 141/81. Patient reports that her B/Ps are normally not that elevated (they have been closely monitor at the [facility]). B/P likely high as patient just smoked [facility]. She does have means to monitor her B/P at home. I have asked her to start monitoring her B/P a couple times a day. Goal B/P<130/80, notify the clinic if readings are above goal. 3) vaginal bleeding post hysteroscopy and procedure: Will order a Hgb and Iron profile. 4) vitamin D deficiency: will recheck today, currently taking cholecalciferol 5) Tobacco use: Patient aware of effects of smoking and kidney health. Encouraged smoking cessation. 25 min was spent with patient in which greater than 50% of time was spent in counseling/coordinationof care PLAN: 1) stop by the lab for blood and urine tests today 2) No NSAIDS 3) maintain good oral hydration 4) monitor your blood pressure. Goal B/P <130/80, call me/email if your blood pressures are running above goal. 5) stop smoking 6) return to clinic in 3 months Thanks, Lisa Patrick CNP 04/04/2014, 3:08 PM Patient Active Problem List Diagnosis ??? VARICELLA [...] ??? Chronic kidney disease, stage IV (severe) K STEWARDESS documented in this encounter Plan of Treatment Not on filedocumented as of this encounter Results IRON PROFILE (IRON,TIBC,%SAT.(CALC)) (04/04/2014 2:32 PM SNACK STEWARDESS) athologist Signature Iron 52 37 - 170 [facility] mcg[facility]dl [facility] TIBC 323 240 - 430 [facility] mcg[facility] % Saturation, 16 15 - 50 % [facility] calc. [facility] Specimen Anatomical Collection Method Collection Time Receive d Time (Source) Location / / Volume Laterality 04/04/2014 2:32 PM 4 2:35 SNACK STEWARDESS PM SNACK STEWARDESS Narrative [facility] - 04/04/2014 7:[address] Performed at [facility], [address] [place] [phone] Lisa Patrick APRN, CNP LAB_1 Performing Organization Address [facility] Phon e Number [facility] [phone] HEMOGLOBIN, BLOOD (04/04/2014 2:32 PM SNACK STEWARDESS) athologist Signature Hemoglobin 12.2 12.0 - 16.0 [facility] g/dl Specimen Anatomical Collection Method Collection Time Receive d Time (Source) Location / / Volume Laterality 04/04/2014 2:32 PM 4 2:35 SNACK STEWARDESS PM SNACK STEWARDESS Narrative [facility] - 04/04/2014 7:[address] Performed at [facility], [address] [place] [address] ??[phone] Lisa Patrick APRN, CNP LAB_1 Performing Organization Address [facility] Phon e Number [facility] [phone] MAGNESIUM (04/04/2014 2:32 PM SNACK STEWARDESS) athologist Signature Magnesium 1.9 1.6 - 2.3 [facility] mg/dl Specimen Anatomical Collection Method Collection Time Receive d Time (Source) Location / / Volume Laterality 04/04/2014 2:32 PM 4 2:35 SNACK STEWARDESS PM SNACK STEWARDESS Narrative [facility] - 04/04/2014 7:[address] Performed at [facility], [address] [place] [address] ??[phone] Lisa Patrick APRN, CNP LAB_1 Performing Organization Address [facility] Phon e Number [facility] [phone] PHOSPHORUS (04/04/2014 2:32 PM SNACK STEWARDESS) athologist Signature Phosphorus 4.4 2.5 - 4.5 [facility] mg/dl Specimen Anatomical Collection Method Collection Time Receive d Time (Source) Location / / Volume Laterality 04/04/2014 2:32 PM 4 2:35 SNACK STEWARDESS PM SNACK STEWARDESS Narrative [facility] - 04/04/2014 7:[address] Performed at [facility], [address] [place] [address] ??[phone] Lisa Patrick APRN, CNP LAB_1 Performing Organization Address [facility] Phon e Number [facility] [phone] (ABNORMAL) TP/CREA RATIO, URINE (04/04/2014 2:32 PM SNACK STEWARDESS) [facility] gist Method Time Signature Total Protein, 21 mg/dl [facility] Urine, Random [facility] Creatinine,Ur 40.0 mg/dl [facility] Random [facility] TP/Creat 0.5 (H) <0.2 [facility] Ratio, Urine, [facility] Random Specimen Anatomical Collection Method Collection Time Receive d Time (Source) Location / / Volume Laterality Urine specimen 04/04/2014 2:32 PM 014 2:36 (specimen) SNACK STEWARDESS PM SNACK STEWARDESS Narrative [facility] - 04/04/2014 9:[address] Performed at [facility], [address] [place] [address] ??[phone] Lisa Patrick APRN, CNP LAB_1 Performing Organization Address [facility] Phon e Number [facility] [phone] VITAMIN D 25-HYDROXY, TOTAL (V77.99) (04/04/2014 2:32 PM SNACK STEWARDESS) athologist Signature Vitamin 42.6 30.0 - [facility] D,25-OH, Tot 80.0 ng/mL LABORATORIES Comment: Deficiency: ??< 20 ng/mL Insufficiency: ??20-29 ng/mL Optimum Level: ??30-80 ng/mL Possible Toxicity: > 80 ng/mL Specimen Anatomical Collection Method Collection Time Receive d Time (Source) Location / / Volume Laterality 04/04/2014 2:32 PM 4 2:35 SNACK STEWARDESS PM SNACK STEWARDESS Narrative [facility] - 04/04/2014 6:[address] Performed at [facility] , [address] [place] [address] Lisa Patrick APRN, CNP LAB_1 Performing Organization Address [facility] Phon e Number [facility] [phone] (ABNORMAL) INTACT PTH (04/04/2014 2:32 PM SNACK STEWARDESS) athologist Signature Intact PTH 85.6 (H) 14.0 - [facility] 72.0 pg/mL [facility] Specimen Anatomical Collection Method Collection Time Receive d Time (Source) Location / / Volume Laterality 04/04/2014 2:32 PM 4 2:35 SNACK STEWARDESS PM SNACK STEWARDESS Narrative [facility] - 04/04/2014 6:[address] Performed at [facility] , [address] [place] [address] Lisa Patrick APRN, CNP LAB_1 Performing Organization Address [facility] Phon e Number [facility] [phone] (ABNORMAL) BASIC METABOLIC PANEL (04/04/2014 2:32 PM SNACK STEWARDESS) Patholo gist Method Time Signature Sodium 143 135 - [...] Volume Laterality 04/04/2014 2:32 PM 4 2:35 SNACK STEWARDESS PM SNACK STEWARDESS Narrative [facility] - 04/04/2014 7:[address] Performed at [facility], [address] [place] [phone] Lisa Patrick APRN, CNP LAB_1 Performing Organization Address City/State/ZIP Code Phon e Number [facility] [phone] documented in this encounter Visit Diagnoses Diagnosis Chronic kidney disease, stage IV (severe ) (HRC) - Primary Chronic kidney disease, Stage IV (severe ) Tobacco use disorder ([facility]) Tobacco use disorder HYPERTENSION NOS Unspecified essential hypertension Vitamin D deficiency (HRC) Unspecified vitamin D deficiency Chronic kidney disease, stage IV (severe ) (HRC) Chronic kidney disease, Stage IV (severe ) documented in this encounter Care Teams Plant Tender Relationship Specialty Start Date End Date Tiffany Gonzalez APRN, DNP PCP - General 01/16/00 02/03/16 [address] [id number] documented as of this encounter
--- OUTSIDE RECORDS SUMMARY | 2021-12-28 14:12 | XMS_ITS | Encounter Summary ---
:1965 Author Organization [facility] Address [address] [place] [address] Care Team Providers Name Role Phone Marcelo Gonzalez APRN, DNP Primary Care Provider [phone] Reason for Referral Consult/Transfer Care (Routine) - Closed Specialty Diagnoses / Procedures Referred By Contact Refer red To Contact Diagnoses Hematuria Marcelo Gonzalez APRN, DNP [address] [place] [address] Referral ID Status Reason Start Date Expiration Date Visits Requ ested Visits Authorized [id number] Closed 08/28/2013 11/27/2014 1 1 Scheduling Instructions Your provider has recommended an appoint ment with [facility]. You may call [phone] to schedule your appoi ntment. If you prefer, a materials scheduler will contact you within the next 3 business d ays to assist you in setting up this appointment. onsult/Transfer Care (Routine) - Closed Specialty Diagnoses / Procedures Referred By Contact Refer red To Contact Diagnoses Dysmenorrhea Marcelo Gonzalez APRN, DNP [address] [place] [address] Referral ID Status Reason Start Date Expiration Date Visits Requ ested Visits Authorized [id number] Closed 08/28/2013 1 1 Scheduling Instructions Your provider has recommended an appoint ment with [facility]. You may call [phone] to schedule your appointmen t. If you prefer, a materials scheduler will contact you within the next 3 business days to a ssist you in setting up this appointment. rocedure/Equipment (Routine) - Incomplete Specialty Diagnoses / Procedures Referred By Contact Refer red To Contact Diagnoses Dysmenorrhea Marcelo Gonzalez, Procedures OBGYN PELVIC/COUTURE DRESSMAKER ULTRASOUND ([facility]) GA[place]VER [address] [place] [id number] Referral ID Status Reason Start Date Expiration Date Visits V isits Requested Authorized [id number] Incomplete 08/28/2013 1 1 Reason for Visit Reason Comments FOLLOW-UP,[facility] 08/24/13 for right sided flank pain and hematuria Encounter Details Date Type Department Care Team Description 08/28/2013 Office Visit [facility] Lisa, Hematuria (Primary Dx); [address] 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 machine joint cutter pelvic ultrasound. machine joint cutter MD after for consult regarding fibroid and cyst. Dr.Joan Coe who I recommend. 2. Nephrology is consulted- ?? Add chlorthalidone 12.5 mg daily ?? Followup in 10-14 days with Marcelo Gonzalez DNP for blood pressure check and repeat basicmetabolic panel Followup with nephrology non-urgent documented in this encounter Progress Notes Marcelo Gonzalez APRN, DNP - 08/28/2013 6:54 PM CDT Addended by: MARCELO GONZALEZ on: 08/28/2013 06:54 PM Modules accepted: Orders Marcelo Gonzalez APRN, DNP - 08/28/2013 11:06 AM CDT SUBJECTIVE: Stephanie Norman is a 48 yr old female presents with Chief Complaint Patient presents with ??? FOLLOW-UP,[facility] 08/24/13 for right sided flank pain and hematuria Last wk had R side back pain, had blood in urine but didn't worry because of PKD history (where she's had cysts that burst). Symptoms worsened August 23, 2013, and she went to [facility]. There she had continuous bladder irrigation for 12hrs. She stayed overnight. Her BP was elevated for hospital stay initially but normalized on discharge. She had an abdominal ultrasound where a fibroid and cyst was seen in pelvis. Discharged on August 24, 2013. She has mild pain 1/10 to R flank today, but it was 8/10 last wk. Got her menstrual cycle on 08/25/13 so not sure if there's blood in urine or not. She is ending a study at [facility] for creatinine, GFR, and urine (). She is requesting Nephrology specialist here in [facility]. OBJECTIVE: BP 150/106 Pulse 60 Temp(Src) 98.4 ??F (36.9 ??C) (Oral) Wt 238 lb 4 oz (108.069 kg) BMI 38.34 kg/m2 LMP 08/25/2013 Stephanie Norman is a well developed, well nourished, well groomed with pleasant affect Denies costovertebral angle tenderness Lab Results Component Value Date/Time UAPPR Yellow 07/05/2008 11:03 AM UAPPR Clear 07/05/2008 11:03 AM USG 1.010 08/28/2013 10:29 AM ULEUK Sml * 08/28/2013 10:29 AM UNITR Negative 08/28/2013 10:29 AM UPH 6.5 08/28/2013 10:29 AM UPRO Tr * 08/28/2013 10:29 AM UGLUC Negative 08/28/2013 10:29 AM UKET Negative 08/28/2013 10:29 AM UURO 0.2 08/28/2013 10:29 AM UBIL Negative 08/28/2013 10:29 AM UBLD Lrg * 08/28/2013 10:29 AM URBCS 10-20 08/28/2013 10:29 AM UWBC 3-5 08/28/2013 10:29 AM UEPI Occ 08/28/2013 10:29 AM UBACT Occ 08/28/2013 10:29 AM UCAST 0 08/28/2013 10:29 AM ASSESSMENT: 1. Hematuria 2. Dysmenorrhea 3. Autosomal dominant polycystic kidney disease PLAN: Spoke with Dr. Marcelo Dickinson. Hematuria can persist after kidney cyst rupturing. Important thing is pain management. Since Stephanie is doing very well, we will continue to monitor. Blood pressure should be treated, and will add chlorthalidone 12.5 mg daily. Obtain labs today including basic metabolic panel, and repeat those in two weeks. Patient should seek me in 10-14 days in clinic. documented in this encounter Plan of Treatment Scheduled Referrals Name Type Priority Associated Diagnoses Order S gage OB-COUTURE DRESSMAKER CONSULT Referral Routine Dysmenorrhea Ordered: 08/17 NEPHROLOGY CONSULT-ADULTS Referral Routine Hematuria Or dered: 08/28/2013 documented as of this encounter Procedures Procedure Name Priority Date/Time Associated Comments Diagnosis URINE CULTURE Routine 08/29/2013 10:29 AM Results for this CDT procedure are i n the results section. CREATININE / GFR Routine 08/28/2013 10:29 AM Hematuria Resu lts for this CDT procedure are i n the results section. COMPLETE BLOOD Waiting 08/28/2013 10:29 AM Hematuria Result s for this COUNT-W/DIFF CDT procedure are i n the results section. CO2 (CARBON DIOXIDE) Routine 08/28/2013 10:29 AM Results for this CDT procedure are i n the results section. SODIUM Routine 08/28/2013 10:29 AM Results for this CDT procedure are i n the results section. POTASSIUM Routine 08/28/2013 10:29 AM Hematuria Results for this CDT procedure are i n the results section. GLUCOSE Routine 08/28/2013 10:29 AM Results for this CDT procedure are i n the results section. CHLORIDE (CL) Routine 08/28/2013 10:29 AM Results for this CDT procedure are i n the results section. CALCIUM Routine 08/28/2013 10:29 AM Results for this CDT procedure are i n the results section. BUN Routine 08/28/2013 10:29 AM Results for this CDT procedure are i n the results section. UA WITH MICRO Waiting 08/28/2013 10:29 AM Hematuria Results for this CDT procedure are i n the results section. documented in this encounter Results OBGYN PELVIC/COUTURE DRESSMAKER ULTRASOUND ([facility]) (10/24/2013 11:39 AM CDT) Anatomical Region Laterality Modality Pelvis Ultrasound Specimen (Source) Anatomical Location Collection Method / Collectio n Time Received Time / Laterality Volume Narrative 10/24/2013 11:49 AM CDT COUTURE DRESSMAKER Ultrasound Exam performed on: ??10/24/2013 Referring provider: Marcelo Gonzalez Referring clinic: [facility] Clinical indications: abnormal bleeding LMP: ??10/16/13 Director Public(s) initials: SN The pelvic organs are imaged using: both transvaginal and transabdominal transducers to better visualize the pelv ic anatomy. Today's ultrasound was compared to previ ous report from: CT 08/23/13 (rt adx cyst) Measurements and comments Uterus: [...] up with her referring provider. Wolf Millard Marcelo Gonzalez APRN, GAIL RAD US (ABNORMAL) BASIC METABOLIC PANEL (08/30/2013 11:35 AM CDT) [facility] gist Method Time Signature Sodium 140 135 - [...] 08/30/2013 4:07 PM C DT Performed at [facility], [address] [place] [id number] Marcelo Gonzalez APRN, DNP LAB_1 Performing Organization Address City/[facility] Phon e Number [facility] [phone] URINE CULTURE (08/29/2013 10:29 AM CDT) Component Value Ref Test Analysis Performed At Patholo gist Range Method Time Signature Specimen Urine [facility] Description [facility]ATORIES Special Unspecified [facility] Requests LABORATORIES Culture Mixed Carmen [facility] Consisting [facility] Predominantly of Nonpathogens Report Status Final 08/30/2013 [facility] Specimen Anatomical Collection Method Collection Time Receive d Time (Source) Location / / Volume Laterality 08/29/2013 10:29 08/29/2013 AM CDT 10:34 AM CDT Narrative [facility] - 08/30/2013 10:01 AM CDT Performed at [facility], [address] [place] [address] ??[id number] Marcelo Gonzalez APRN, DNP LAB_1 Performing Organization Address City/[facility] Phon e Number [facility] [phone] SODIUM (08/28/2013 10:29 AM CDT) P athologist Signature Sodium 139 135 - 145 [facility] mmol/L Specimen Anatomical Collection Method Collection Time Receive d Time (Source) Location / / Volume Laterality 08/28/2013 10:29 08/28/2013 AM CDT 11:21 AM CDT Narrative [facility] - 08/29/2013 3:02 PM C DT Performed at [facility], [address] [place] [address] ??[phone] Marcelo Gonzalez APRN, DNP LAB_1 Performing Organization Address City/[facility]/ZIP Code Phon e Number [facility] [phone] GLUCOSE - RANDOM < 8HR FASTING (V77.1) (08/28/2013 10:29 AM CDT) Component Value Ref Test Analysis Performed At [facility] Range Method Time Signature Hours Fasting Information Not hours [facility] Given [facility]ORATORIES Glucose 77 70 - 180 [facility] mg/dl [facility] Specimen Anatomical Collection Method Collection Time Receive d Time (Source) Location / / Volume Laterality 08/28/2013 10:29 08/28/2013 AM CDT 11:21 AM CDT Narrative [facility] - 08/29/2013 3:02 PM C DT Performed at [facility], [address] [place] [address] ??[id number] Marcelo Gonzalez APRN, DNP LAB_1 Performing Organization Address [facility] Phon e Number [facility] [phone] CO2 (CARBON DIOXIDE) (08/28/2013 10:29 AM CDT) [facility] Method Time Signature CO2 Unable to Add 22 - 30 [facility] Test Due to mmol/L LABORATORIES Analyte Instability Specimen Anatomical Collection Method Collection Time Receive d Time (Source) Location / / Volume Laterality 08/28/2013 10:29 08/28/2013 AM CDT 11:21 AM CDT Narrative [facility] - 08/29/2013 1:48 PM C DT Performed at [facility], [address] [place] [address] ??[phone] Marcelo Gonzalez APRN, DNP LAB_1 Performing Organization Address [facility] Phon e Number [facility] [phone] CHLORIDE (CL) (08/28/2013 10:29 AM CDT) athologist Signature Chloride 106 95 - 106 [facility] mmol/L Specimen Anatomical Collection Method Collection Time Receive d Time (Source) Location / / Volume Laterality 08/28/2013 10:29 08/28/2013 AM CDT 11:21 AM CDT Narrative [facility] - 08/29/2013 3:02 PM C DT Performed at [facility], [address] [place] [address] [place] ??[phone] Marcelo Gonzalez APRN, DNP LAB_1 Performing Organization Address [facility] Phon e Number [facility] [phone] CALCIUM (08/28/2013 10:29 AM CDT) athologist Signature Calcium 9.0 8.4 - 10.2 [facility] mg/dl Specimen Anatomical Collection Method Collection Time Receive d Time (Source) Location / / Volume Laterality 08/28/2013 10:29 08/28/2013 AM CDT 11:21 AM CDT Narrative [facility] - 08/29/2013 3:02 PM C DT Performed at [facility], [address] [place] [address] ??[phone] Marcelo Gonzalez APRN, DNP LAB_1 Performing Organization Address [facility] Phon e Number [facility] [phone] (ABNORMAL) BUN (08/28/2013 10:29 AM CDT) athologist Signature BUN 25 (H) 7 - 20 [facility] mg/dl Specimen Anatomical Collection Method Collection Time Receive d Time (Source) Location / / Volume Laterality 08/28/2013 10:29 08/28/2013 AM CDT 11:21 AM CDT Narrative [facility] - 08/29/2013 3:02 PM C DT Performed at [facility], [address] [place] [address] ??[phone] Marcelo Gonzalez APRN, DNP LAB_1 Performing Organization Address City/[facility] Code Phon e Number [facility] [phone] (ABNORMAL) HEMOGRAM/PLTS/DIFF (08/28/2013 10:29 AM CDT) athologist Signature WBC 7.8 4.0 - 11.0 [facility] k/ul RBC 3.75 (L) 4.0 - 5.2 [facility] M/ul Comment: All Parameters Rechecked Hemoglobin 11.9 (L) 12.0 - 16.0 g/dl [facility] HCT 34.7 (L) 36.0 - 46.0 % [facility] S MCV 93.0 80 - 100 fl [facility] MCH 31.7 26 - 34 pg [facility] MCHC 34.2 32 - 36 g/dl [facility] RDW 12.2 11.5 - 14.5 % [facility] S Platelets 317 150 - 450 k/ul [facility] ES PMN/Band 68 % [facility] Lymph 23 % [facility] [place] 5 % [facility] Eos 3 % [facility] Baso 1 % [facility] Neutrophil Absolute 5.4 1.8 - 7.7 k/ul [facility] Lymph Absolute 1.8 1.0 - 4.8 k/ul [facility] [place] Absolute 0.4 0.1 - 0.7 k/ul [facility] Eos Absolute 0.2 0.0 - 0.5 k/ul [facility] Baso Absolute 0.1 0.0 - 0.2 k/ul [facility] Specimen Anatomical Collection Method Collection Time Receive d Time (Source) Location / / Volume Laterality 08/28/2013 10:29 08/28/2013 AM CDT 11:21 AM CDT Narrative [facility] - 08/28/2013 12:21 PM CDT Performed at [facility] [address] [place] [id number] Marcelo Gonzalez APRN, GAIL LAB_1 Performing Organization Address City/State/ZIP Code Phon e Number [facility] [phone] (ABNORMAL) CREATININE / GFR (08/28/2013 10:29 AM CDT) [facility] gist Method Time Signature Creatinine 2.06 (H) 0.52 - [facility] 1.04 LABORATORIES mg/dl GFR, Estimated 25.6 (L) >60 [facility] ml/min/1. LAB[facility]ATORIES 73m2 GFR, Est., If 31.0 (L) >60 [facility] Black ml/min/1. LABORATORIES 73m2 Specimen Anatomical Collection Method Collection Time Receive d Time (Source) Location / / Volume Laterality 08/28/2013 10:29 08/28/2013 AM CDT 11:21 AM CDT Narrative [facility] - 08/28/2013 6:32 PM C DT [facility], [address] [place] [address] ??[phone] Marcelo Gonzalez APRN, DNP LAB_1 Performing Organization Address City/[facility]/ZIP Code Phon e Number [facility] [phone] POTASSIUM (08/28/2013 10:29 AM CDT) athologist Signature Potassium 5.0 3.5 - 5.3 [facility] mmol/L Specimen Anatomical Collection Method Collection Time Receive d Time (Source) Location / / Volume Laterality 08/28/2013 10:29 08/28/2013 AM CDT 11:21 AM CDT Narrative [facility] - 08/28/2013 6:32 PM C DT Performed at [facility], [address] [place] [address] ??[phone] Marcelo Gonzalez APRN, DNP LAB_1 Performing Organization Address City/[facility]/ZIP Code Phon e Number [facility] [phone] (ABNORMAL) UA WITH MICRO (08/28/2013 10:29 AM CDT) [facility] gist Method Time Signature Urine Color Yellow [facility] Urine Clarity Clear [facility] Sp Gr 1.010 1.005 - [facility] 1.030 LAB[facility]IES Leuk Sml (A) NEG [facility] Nitr Negative NEG [facility] pH 6.5 4.5 - 8.0 [facility] Prot Tr (A) NEG mg/dl [facility] Gluc Negative NEG [facility] Ket Negative NEG [facility] Urob 0.2 0.2 - 1.0 [facility] EU/dl LAB[facility]IES Bili Negative NEG [facility] Blood Lrg (A) NEG [facility] RBC'S 10-20 0 - 3 [facility] /hpf LAB[facility] WBC'S 3-5 0 - 5 [facility] /hpf [facility] Epith, Occ /hpf [facility] Squamous [facility] Bact Occ [facility] Casts 0 /lpf [facility] Specimen Anatomical Collection Method Collection Time Receive d Time (Source) Location / / Volume Laterality 08/28/2013 10:29 08/28/2013 AM CDT 11:21 AM CDT Narrative [facility] - 08/28/2013 11:22 AM CDT Performed at [facility], [address] [place] [id number] Marcelo Goznalez APRN, DNP LAB_1 Performing Organization Address City/State/ZIP Code Phon e Number [facility] [phone] documented in this encounter Visit Diagnoses Diagnosis Hematuria - Primary Dysmenorrhea Autosomal dominant polycystic kidney dis ease Polycystic kidney, autosomal dominant Hematuria Autosomal dominant polycystic kidney dis ease Polycystic kidney, autosomal dominant Dysmenorrhea Abnormal uterine bleeding Unspecified disorder of menstruation and other abnormal bleeding from female genital tract documented in this encounter Care Teams Senior Software Quality Engineer Relationship Specialty Start Date End Date Marcelo Gonzalez APRN, DNP PCP - General 01/16/00 02/03/16 [address] [place] [address] documented as of this encounter
--- OUTSIDE RECORDS SUMMARY | 2021-12-28 14:13 | XMS_ITS | Encounter Summary ---
:1965 Author Organization [employer] Address [address] [place] [address] Care Team Providers Name Role Phone Marcelo Gonzalez APRN, DNP Primary Care Provider [phone] Reason for Visit Reason Onset Date Comments FOLLOW-UP,LAB 03/30/2012 Encounter Details Date Type Department Care Team Description 03/30/2012 Telephone [facility] Marcelo Gonzalez, FOLLOW-UP,LAB [address] [place] [address] [facility] [phone] [place] [address] (Wo rk) Social History Tobacco Use Types [...] documented as of this encounter Nursing Notes Ruthann Perry LPN - 03/30/2012 10:52 AM CST Pt has phone visit set up for tomorrow.Ruthann Perry LPN ER SHOP UTILITY WORKER Ruthann Perry LPN - 03/30/2012 10:51 AM CST Message copied by RUTHANN PERRY on WedMar 30, 2012 10:51 AM ------ Message from: MARCELO GONZALEZ Created: WedMar 29, 2012 3:27 PM Can I get a phone appt with Stephanie or can she come in to discuss hgb/vit d? ER SHOP UTILITY WORKER documented in this encounter Plan of Treatment Not on filedocumented as of this encounter Visit Diagnoses Not on filedocumented in this encounter Care Teams Distribution Tech Relationship Specialty Start Date End Date Marcelo Gonzalez, PRESS MACHINE FEEDER, DNP PCP - General 01/16/00 02/03/16 [address] [place] [id number] documented as of this encounter
--- OUTSIDE RECORDS SUMMARY | 2021-12-28 14:13 | XMS_ITS | Encounter Summary ---
:1965 Author Organization [facility] Address [address] [place] [address] Care Team Providers Name Role Phone Tiffany Gonzalez APRN, DNP Primary Care Provider Reason for Visit Reason Comments Mask Fit Re-instruct Procedure/Equipment - Closed Specialty Diagnoses / Procedures Referred By Contact Refer red To Contact Diagnoses Obstructive sleep apnea (adult) (pediatric) Weight gain Darryn Fletcher MD [address] [place] [address] Referral ID Status Reason Start Date Expiration Date Visits Requ ested Visits Authorized [id number] Closed 10/15/2011 1 1 Encounter Details Date Type Department Care Team Description 10/26/2011 Home Medical Services [facility] Home Medical Dawna Arellano CR T Equipment [address] [place] [address] Social History Tobacco Use Types [...] documented as of this encounter Progress Notes Dawna Arellano, IRMA - 10/26/2011 9:36 AM CDT [facility] Sleep DME Mask Fit Mask fit information: [employer] Quattro FX, small full face mask. We replaced the filter and reviewed cleaning. Dawna Arellano RCP documented in this encounter Plan of Treatment Scheduled Referrals Name Type Priority Associated Diagnoses Order S [facility] Referral Routine Obstructive sleep apnea Orde red: 10/15/2011 CPAP/SUPPLIES/MASK (adult) (pedi atric) FITTINGS/ADJUSTMENTS Weight gain [[id number]] documented as of this encounter Visit Diagnoses Not on filedocumented in this encounter Care Teams Rip Tailer Relationship Specialty Start Date End Date Tiffany Gonzalez APRN, DNP PCP - General 01/16/00 02/03/16 [address] [place] [id number] documented as of this encounter
--- OUTSIDE RECORDS SUMMARY | 2021-12-28 14:13 | XMS_ITS | Encounter Summary ---
:1965 Author Organization [facility] Address [address] [place] [address] Care Team Providers Name Role Phone Tiffany Gonzalez APRN, DNP Primary Care Provider Encounter Details Date Type Department Care Team Description 09/14/2012 Office Visit [facility] Melva Estevez MD Ot her tenosynovitis of 401 Hand Therapy Selene Dickinson OTR/L hand and wrist (Primary [address]) [place] [address] Social History Tobacco Use Types [...] documented as of this encounter Progress Notes Selene Dickinson OTR/L - 09/14/2012 9:20 AM CDT HAND OCCUPATIONAL THERAPY DAILY NOTE 09/14/2012 Patient Name: Stephanie Norman [id number] Payor: Plan: SELF [id number] [id number] Product Type: Commercial Diagnosis: tendonitis ICD-9-code: 727.05 Date of Onset: Date of Surgery: n/a Referring Physician: Melva Estevez Date(s): 09-01-2012 Date of initial evaluation/progress note(s): 09/05/2012 QuickDASH (lower score equates to less disability): 09/05/2012 score:QuickDash Calculated Score: 6.8 Precautions: None noted Barriers to Learning/Other Pertinent Information: none noted Injury: Right Hand Dominance: Right History of Injury: Patient has workers compensation injury with report date of 06/27/12 for repetitive use injury. 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 She has an order from her referring provider to have an ergonomic assessment completed. She has not been working since her MD restrictions, due to waiting for a splint, although plans to return possibly tomorrow. VISIT NUMBER: 3 Total # of visits approved: W/C 0 HP visits used prior to Eval PAIN: Intensity Level: Current 2/10 in wrist with movement SUBJECTIVE Pt reports pain with wrist movements and she hasn't started work today. Pt reports no improvement at this time. Pt reports nonpainful wrist popping. OBJECTIVE No palpable tender points in wrist Provacative tests: Resisted FCR: negative Resisted FCU: negative Resisted FDS: index: positive, long: negative, ring: negative, small: negative Resisted FDP: index: negative, long: negative, ring:postive shooting from wrist to proximal forearm,small: negative -Phalen's test as compared to contralateral side -Montejo's test as compared to contralateral side TREATMENT Physical Agent Modalities: Light Touch: intact Ultrasound: Pulsed, 3 MHz, 1.0 intensity, 2 minutes of set up time, 8 minutes of treatment, location: Volar wrist, for purpose of promote healing. and Treatment number: 1 Self Care/Home Management and Trainin minutes review use of wrist brace: use at work for symptoms management Review wrist position at work, avoid resting on wrist when not typing Therapeutic Exercises: 15 minutes, Tendon Glides. 10 reps instructed and performed; patient was alsoinstructed to complete exercises 3 times/day. and Passive range of motion of forearm flexor muscles and forearm extensor muscles. 2 reps instructed and performed. review of proximal stability exercises: scapular retraction, continue with V , external rotation with blue theraband RESPONSE TO TREATMENT: ultrasound feels good on wrist per patient report States she feels forearm muscles when holding hand for tendon glides Pt reports pulling/pain in wrist with tendon glides(straight fist) Pt asking appropriate questions during treatment SPECIALIZED SKILL OF THERAPIST REQUIRED FOR: modalities, education, modification/progression of HEP ASSESSMENT At risk for injury : Further Cumulative Trauma Pain: needs improvement Range of Motion needs improvement Strength : needs improvement Functional limitations PLAN FOR NEXT TREATMENT Ultrasound, Active ROM, Passive ROM and instruction in wrist isometrics MINUTES SEEN: 28 Treatment Charges: Physical Agent Modalities: Ultrasound: Quantity: 1 Treatment: Therapeutic Exercises: Quantity: 1 RENU Dukes, CHT, CLT documented in this encounter Plan of Treatment Not on filedocumented as of this encounter Visit Diagnoses Diagnosis Other tenosynovitis of hand and wrist - Primary documented in this encounter Care Teams Manager Epic Relationship Specialty Start Date End Date Tiffany Gonzalez APRN, DNP PCP - General 01/16/00 02/03/16 [address] [id number] documented as of this encounter
--- OUTSIDE RECORDS SUMMARY | 2021-12-28 14:13 | XMS_ITS | Encounter Summary ---
:1965 Author Organization [facility] Address [address] [place] [address] Care Team Providers Name Role Phone Tiffany Gonzalez APRN, DNP Primary Care Provider [phone] Encounter Details Date Type Department Care Team Description 10/04/2012 Office Visit Specialty Center Melva Estevez MD Ot her tenosynovitis of 401 Hand Therapy Selene Dickinson OTR/L hand and wrist (Primary [address]) [place] [address] Social History Tobacco Use Types [...] encounter Progress Notes Selene Dickinson OTR/L - 10/04/2012 11:42 AM CDT HAND OCCUPATIONAL THERAPY DAILY NOTE 10/04/2012 Patient Name: Stephanie Norman [id number] Payor: [employer] Plan: [employer] Product Type: Non Managed WC Diagnosis: tendonitis ICD-9-code: 727.05 Date of Onset: 06-27-2012 Date of Surgery: n/a Referring Physician: Melva Estevez Order Date(s): 09-01-2012 Date of initial evaluation/progress note(s): 09/05/2012 QuickDASH (lower score equates to less disability): 09/05/2012 score:QuickDash Calculated Score: 6.8 Precautions: None noted Barriers to Learning/Other Pertinent Information: none noted Injury: Right Hand Dominance: Right History of Injury: Patient has workers compensation injury with report date of 06/27/12 for repetitive use injury. 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 She has an order from her referring provider to have an ergonomic assessment completed. She has not been working since her MD restrictions, due to waiting for a splint, although plans to return possibly tomorrow. VISIT NUMBER: 7 Total # of visits approved: W/C 0 HP visits used prior to Eval PAIN: Intensity Level: Current 3/10 in wrist with movement SUBJECTIVE Pt reports she is just doing stretches at this time and brace wear at night. States the pain is with the movement of the ring finger. OBJECTIVE Mild tension in the extensor muscles Tightness palpated with report of tenderness in flexor/pronator group proximally Jump sign in ring finger with palpation in proximal forearm flexor muscles TREATMENT Physical Agent Modalities: Light Touch: intact Combined electrical stimulation and ultrasound: Pulsed, 2 mHz, 1.0 w/cm2, 6 intensity, 2 minutes of set up time, 8 minutes of treatment, location: Volar forearm, for purpose of tissue relaxation. Treatment number: 6 Therapeutic Exercises: 10 minutes, Passive range of motion of forearm flexor muscles 2 reps instructed and performed Adding isolated ring finger passive extension stretch, 2 reps instructed and performed Manual Therapy Techniques: 8 minutes, Trigger Point Release In forearm flexor muscles and instructed patient to perform for HEP 60-90 seconds, 2x/day and Myofascial Massage of flexor pronator group RESPONSE TO TREATMENT: likes the ultrasound and feels this is helpful Demonstrates New exercise correctly in clinic Minimal change in pain since last appointment SPECIALIZED SKILL OF THERAPIST REQUIRED FOR: modalities, education, modification/progression of HEP ASSESSMENT At risk for injury : Further Cumulative Trauma Pain: needs improvement Range of Motion needs improvement Strength : needs improvement Functional limitations PLAN FOR NEXT TREATMENT Ultrasound, Active ROM, Passive ROM and resume resistance when feeling better PROGRESS NOTE MINUTES SEEN: 28 Treatment Charges: Physical Agent Modalities: Ultrasound: Quantity: 1 Treatment: Manual Therapy Techniques: Quantity : 1 NIMISHA Dukes/Michael, CHT, CLT documented in this encounter Plan of Treatment Not on filedocumented as of this encounter Visit Diagnoses Diagnosis Other tenosynovitis of hand and wrist - Primary documented in this encounter Care Teams Block Mechanic Relationship Specialty Start Date End Date Tiffany Gonzalez, COUNTER SERVER, DNP PCP - General 01/16/00 02/03/16 [address] [id number] documented as of this encounter
--- OUTSIDE RECORDS SUMMARY | 2021-12-28 14:13 | XMS_ITS | Encounter Summary ---
:1965 Author Organization [facility] Address [address] [place] [address] Care Team Providers Name Role Phone Tiffany Gonzalez APRN, DNP Primary Care Provider Encounter Details Date Type Department Care Team Description 10/13/2012 Office Visit Specialty Center Melva Estevze MD Ot her tenosynovitis of 401 Hand Therapy Selene Dickinson OTR/L hand and wrist (Primary [address]) [place] [address] Social History Tobacco Use Types [...] encounter Progress Notes Selene Dickinson OTR/L - 10/13/2012 1:35 PM CDT HAND OCCUPATIONAL THERAPY DAILY NOTE 10/13/2012 Patient Name: Stephanie Norman [id number] Payor: [employer] Plan: [employer] Product Type: Non Managed WC Diagnosis: tendonitis ICD-9-code: 727.05 Date of Onset: 06-27-2012 Date of Surgery: n/a Referring Physician: Melva Estevez Order Date(s): 09-01-2012 Date of initial evaluation/progress note(s): 09/05/2012, 10/05/2012 QuickDASH (lower score equates to less disability): 09/05/2012 score:QuickDash Calculated Score: 6.8 , 10/05/2012 13.6.,10/13/2012 0 Precautions: None noted Barriers to Learning/Other Pertinent [...] tendon glides 10/04/2012 ring finger extension stretch 09/26/2012 mirror therapy Ring finger extension orthotic PATIENT CONCERNS/GOALS: Relieve pain when I work Patient reports that her pain comes on while working. She has an order from her referring provider to have an ergonomic assessment completed. She has not been working since her MD restrictions, due to waiting for a splint, although plans to return possibly tomorrow. SHORT TERM GOALS: to be completed in 6 visits. Stephanie Norman will report she is able to mouse for 35 minutes at work before pain/symptoms start.-partially met as patient is on restrictions 20 minutes typing, 10 minutes stretching Stephanie Norman will report decreased pain by 1-2 pain levels during work activity.:pain level has decreased by 1level-MET VISIT NUMBER: 9 Total # of visits approved: W/C 0 HP visits used prior to Eval PAIN: Intensity Level: Current 0/10 SUBJECTIVE Pt reports she does not have pain today after working 4 hours. Pt reports she is typing/computer 20 minutes, 10 mintues of stretching. 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: Trial 1: 95# Left: Trial 1: 80# SPECIAL TESTS / PROVOCATIVE TESTING: No to minimal Tenderness with palpation at palpation of FDS and FDP No pain resisted FDP and FDS of ring finger TREATMENT Self Care/Home Management and Trainin minutes and review of HEP: trigger point compression in proximal forearm, stretching, and use of orthotic if needed at work to control symptoms RESPONSE TO TREATMENT: increase insurance marketing specialist strength Negative provacative tests that have been positive Minimal to no pain/symptoms in proximal forearm with deep palpation SPECIALIZED SKILL OF THERAPIST REQUIRED FOR: education, instruction regarding ongoing self-care ASSESSMENT Pain: decreased Strength : increased Functional limitations: at this patient states she has no functional restrictions Patient to continue with restrictions per MD and follow with HEP to manage symptoms Patient requesting chart to be open and therapist agrees if patient has increase in symptoms PLAN FOR NEXT TREATMENT recheck if needed, Combination ultrasound/electrical stimulation, trigger point release/soft tissue massage, stretching MINUTES SEEN: 15 Treatment Charges: Treatment: Self Care/Home Management and Training: Quantity: 1 NIMISHA Dukes/Michael, CHT, CLT documented in this encounter Plan of Treatment Not on filedocumented as of this encounter Visit Diagnoses Diagnosis Other tenosynovitis of hand and wrist - Primary documented in this encounter Care Teams Weather Forcaster Relationship Specialty Start Date End Date Tiffany Gonzalez APRN, GAIL PCP - General 01/16/00 02/03/16 [address] [id number] documented as of this encounter
--- OUTSIDE RECORDS SUMMARY | 2021-12-28 14:13 | XMS_ITS | Encounter Summary ---
:1965 Author Organization [facility] Address [address] [place] [address] Care Team Providers Name Role Phone Tiffany Gonzalez APRN, DNP Primary Care Provider Reason for Visit Reason Onset Date Comments EQUIPMENT ORDERS 05/18/2011 crutches Encounter Details Date Type Department Care Team Description 05/18/2011 Telephone [facility] Savannah Zuniga, JUDE ENT ORDERS Medicine RN (crutches) [facility] [place] [address] Social History Tobacco Use Types Packs/Day Years Used Date Smoking Tobacco: Former Cigarettes 0.5 Quit : 02/23/2011 Smokeless Tobacco: Never Comments: Restarted 12/2005; prior to janice t stopped for 8 months Alcohol Use Standard Drinks/Week Comments Yes 0.8 (1 standard drink = 0.6 oz pure alco hol) rarely Sex Assigned at Date Recorded Not on file documented as of this encounter Nursing Notes Savannah Zuniga RN - 05/18/2011 12:33 PM CST Pt was seen at [facility], needs crutches, but they did not have her size, they are sending [facility] to [facility] to [facility] crutches. She should be here within the hour. Savannah Zuniga RN 05/18/2011, 12:04 PM Pt arrived at clinic. She needs adult medium crutches, for 5 ft 8 in. We do not have that size, onlyhave 5 ft 10 in or taller, and child size. Order printed for pt to take with her, [facility], or can try a supply company. Savannah Zuniga, ANGELIKA 05/18/2011, 12:29 PM S SALES MANAGER documented in this encounter Plan of Treatment Not on filedocumented as of this encounter Visit Diagnoses Not on filedocumented in this encounter Care Teams Facilities Flight Check Pilot Relationship Specialty Start Date End Date Tiffany Gonzalez APRN, DNP PCP - General 01/16/00 02/03/16 [address] [id number] documented as of this encounter
--- OUTSIDE RECORDS SUMMARY | 2021-12-28 14:13 | XMS_ITS | Encounter Summary ---
:1965 Author Organization [facility] Address [address] [place] [address] Care Team Providers Name Role Phone Tiffany Gonzalez APRN, GAIL Primary Care Provider Reason for Visit Reason Comments Refill Encounter Details Date Type Department Care Team Description 01/27/2012 Refill [facility] Tiffany Gonzalez, Refill [address] [place] [address] [address] [facility] [phone] [place], [place] [phone] (Wo rk) Social History Tobacco Use Types [...] documented as of this encounter Nursing Notes Francisco Grewal - 01/29/2012 8:15 AM CDT Sent patient a letter. Leora Saba RN - 01/29/2012 7:35 AM CDT Refilled per standing order. Patient to be informed needs fasting labwork and [facility] office visit w/pap. RN has refilled a 3 month supply to cover patient until seen. Leora Saba, ANGELIKA documented in this encounter Plan of Treatment Not on filedocumented as of this encounter Visit Diagnoses Not on filedocumented in this encounter Care Teams Attractions Associate Relationship Specialty Start Date End Date Tiffany Gonzalez APRN, DNP PCP - General 01/16/00 02/03/16 [address] [id number] documented as of this encounter
--- OUTSIDE RECORDS SUMMARY | 2021-12-28 14:13 | XMS_ITS | Encounter Summary ---
:1965 Author Organization [facility] Address [address] [place] [address] Care Team Providers Name Role Phone Tiffany Gonzalez APRN, DNP Primary Care Provider Reason for Visit Reason Onset Date Comments Breast Cancer 03/15/2012 questions Encounter Details Date Type Department Care Team Description 03/15/2012 Telephone [facility] Tiffany Gonzalez Breast Cancer [address] [place] Still DNP (questions) [place] [address] 601 [facility] [phone] [place] [phone] (Wo rk) Social History Tobacco Use Types [...] documented as of this encounter Nursing Notes Tiffany Gonzalez APRN, DNP - 03/15/2012 8:21 AM CST Pati Pt wondering if she fit criteria for breast MRI due to parents having breast CA CHISE DEVELOPMENT MANAGER documented in this encounter Plan of Treatment Not on filedocumented as of this encounter Visit Diagnoses Not on filedocumented in this encounter Care Teams Watch Engine Operator Relationship Specialty Start Date End Date Tiffany Gonzalez APRN, DNP PCP - General 01/16/00 02/03/16 [address] [id number] documented as of this encounter
--- OUTSIDE RECORDS SUMMARY | 2021-12-28 14:13 | XMS_ITS | Encounter Summary ---
:1965 Author Organization [facility] Address [address] [place] [address] Care Team Providers Name Role Phone Tiffany Gonzalez APRN, DNP Primary Care Provider Encounter Details Date Type Department Care Team Description 03/21/2012 Orders Only External to HP No Primary/Referring, [...] on file documented as of this encounter Procedure Notes No Primary/Referring, Phy - 03/21/2012 12:00 AM CSTAssociated Order(s): SCANNED LAB ITY CONTROL EXPERT documented in this encounter Plan of Treatment Not on filedocumented as of this encounter Procedures Procedure Name Priority Date/Time Associated Diagnosis Comme nts SCANNED LAB 03/21/2012 12:00 AM Results for this QUALITY CONTROL EXPERT procedure are i n the results section . documented in this encounter Results SCANNED LAB (03/21/2012 12:00 AM QUALITY CONTROL EXPERT) Specimen (Source) Anatomical Location Collection Method / Collectio n Time Received Time / Laterality Volume 03/21/2012 Narrative This result has an attachment that is no t available. Transcriptions No Primary/Referring, Phy - 03/21/2012 1 2:00 AM CST Phy No Primary/Referring LAB_1 documented in this encounter Visit Diagnoses Not on filedocumented in this encounter Care Teams Telephone Solicitor Relationship Specialty Start Date End Date Tiffany Gonzalez APRN, DNP PCP - General 01/16/00 02/03/16 [address] [place] [id number] documented as of this encounter
--- OUTSIDE RECORDS SUMMARY | 2021-12-28 14:13 | XMS_ITS | Encounter Summary ---
:1965 Author Organization [employer] Address [address] [place] [address] Care Team Providers Name Role Phone Tiffany Gonzalez APRN, GAIL Primary Care Provider Reason for Visit Reason Comments ROUTINE HEALTH MAINTENANCE pap SHOT,FLU WEIGHT GAIN Medication Request Refills on meds, ok for futu re use except pt would like refill of trazodone today, w ill use [facility] Encounter Details Date Type Department Care Team Description 03/14/2012 Office Visit Elisabeth Gonzalez, Preventative he alth care (Primary Dx); Practice Tiffany Still, Need for prophylactic vaccin ation and inoculation against influenza; [address] PAL[place], DNP Screening for cervical cancer; [place], [place] [address] HYPERTENSION NOS; [address] [place] [address] POLYCYSTIC KIDNEY, UNSPEC; [phone] Reflux esophagi tis; (Work) ALLERGIC RHINITIS NOS; [phone] Hypercholestero lemia with hyperglyceridemia; (Fax) Obstructive sle ep apnea (adult) (pediatric); Breast screenin g, unspecified; Screening for i luana deficiency anemia; Screening for l ipoid disorders; Screening for t hyroid disorder; Screening for o ther and unspecified endocrine, nutritional, metabolic, and immunity disorders Social History Tobacco Use Types Packs/Day Years [...] Sign Reading Time Taken Comments Blood Pressure 148/93 03/14/2012 9:54 AM PROPELLANT ASSEMBLER Pulse 59 03/14/2012 9:54 AM PROPELLANT ASSEMBLER Temperature - - Respiratory Rate - - Oxygen Saturation - - Inhaled Oxygen Concentration - - Weight 112.1 kg (247 lb 3.2 oz) 03/14/2012 9:54 AM PROPELLANT ASSEMBLER Height 170.8 cm (5' 7.25) 03/14/2012 9:54 AM PROPELLANT ASSEMBLER Body Mass Index 38.43 03/14/2012 9:54 AM PROPELLANT ASSEMBLER documented in this encounter Patient Instructions Patient InstructionsSchTiffanie nava LPN - 03/14/2012 10:04 AM CST Flu shot given today. Requested drug refills are approved. Regarding labwork if you go today or future: Will get results and comments online. Please be aware that you will know the lab results before the provider does. Allow 2 business days for lab comments to show online if results are abnormal. (for females: pap result can take up to 3wks) Tiffany Gonzalez NP is out of the clinic on Wed. For health care information online, visit the website, and click on View Online Health Information Library. If you have any questions about this visit, please call [phone] during the day or email questions through your online account. At night or on the weekend you may call the Care Line at [phone] or . Weight Management and Healthy Lifestyle Tips: 1. Know your calculated basal metabolic rate (BMR). [email or web address]. You will need to reduce your caloric intake by 250 calories under your BMR per day to lose ?? of a pound per week. Or reduce by 500 calories under your BMR to lose 1 pound per week. Keep in mind that consuming just 100 calories over your recommended calories per day can lead to a 10 lb weight gain in 1 year. 2. Keeping food log of everything you eat is the only way to keep track of this. Use a phone miko, keep a paper journal, or do it online with something like the Tipser calorie counter. 3. Exercise: #1: to simply MAINTAIN weight complete 60-90 minutes of moderate activity (walking 23509 steps) or 30 minutes of vigorous activity. Vigorous = you could not talk to someone comfortably. Start with 10 minutes a day and increase by 10 minutes per month until you are at goal. #2: to LOSE weight complete 120 minutes per day of moderate activity (walking 85291 steps) or 60 minutes of vigorous activity. Do not attempt to complete this amount of exercise initially. 4. Consume 5 servings of fruit and vegetable per day. 1 serving of fruit is 1 piece of fruit and 1 serving of veggies is 1 cup. 5. Eat breakfast every day. 6. Do not eat 3-4 hours prior to bed 7. Drink 2 liters of fluids per day (water, coffee, water tea, diet pop) 8. The consumption of 2 cups of green tea (not bottled green tea: which is deficient in green tea extract) raises your body temperature 1 degree, which raises your resting energy by 70 calories. i.e. you can burn an extra 70 calories per day) You may also use green tea extract pills (50 mg caffeine and 90 mg epigallocatechin gallate). The National Weight Control Registry is a study of people who have been able to lose at least 30 pounds and keep it off for at least one year. It has shown that this group of people have the following characteristics: 1) low calorie/low fat diet. average 1300 calorie/day with 27% of calories from fat. 2) fewer than 10 hours of television a week 3) 2500 kcal of exercise a week 4) eat breakfast every day. 5) weigh themselves frequently (daily to weekly) 6) avoids fast food (less than once a week) 7) Maintain diet consistency. They eat the same way on weekends and holidays as they do on weekdays. 8) Limit diet variety. Keep fewer different types of foods on hand -www.nwcr.ws ELLANT ASSEMBLER documented in this encounter Progress Notes Tiffany Gonzalez APRN, DNP - 03/14/2012 10:19 AM CST S Stephanie Norman is a 47 yr old female in for routine health maintenance. Current concerns: Chief Complaint Patient presents with ??? ROUTINE HEALTH MAINTENANCE pap ??? SHOT,FLU ??? WEIGHT GAIN ??? Medication Request Refills on meds, ok for future use except pt would like refill of trazodone today, will use [facility] Patient's last menstrual period was 03/06/2012. Sexual activity: female partner Shreyas. CHLAMYDIA TRACHOMATIS (no units) Date Value 06/01/2003 Negative 06/01/2003 Test Performed by PCR Assay GC (N. GONORRHOEAE) (no units) Date Value 06/01/2003 Negative 06/01/2003 Test Performed by PCR Assay HGB (g/dl) Date Value 08/28/2011 11.8* Present dietary habits: three meals a day and adequate fruit and vegetables Calcium intake: three or more servings daily Present exercise habits: getting a work out room - minimal exercise I have reviewed the medical, surgical, family and social histories. History Social History ??? Marital Status: Domestic Partner Spouse Name: Shreyas Number of Children: 2 ??? 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 Smoking status: Former Smoker -- 0.5 packs/day Types: Cigarettes Quit date: 02/23/2011 ??? Smokeless tobacco: Never Used Comment: Restarted 12/2005; prior to that stopped for 8 months ??? Alcohol Use: 0.5 oz/week 1 Cans of beer per week rarely ??? Drug Use: No ??? Sexually Active: Yes -- Female partner(s) same partner for past 7 years Other Topics Concern ??? Service No ??? Blood Transfusions No ??? Caffeine Concern No ??? Occupational Exposure No ??? Hobby Hazards No ??? Sleep Concern Yes wake up 2-3x night; 2-3 hours of uninter. sleep ??? Stress Concern No ??? Weight Concern Yes ??? Special Diet Yes low Na+ and low K+ diet ??? Back Care No ??? Exercise Yes ??? Bike Helmet No ??? Seat Belt No ??? Self-Exams No Social History Narrative Lives in house with partner Shreyas and one daughter and one adopted daughter Review of systems include ROS: Complete Review of Systems is negative O BP 148/93 Pulse 59 Ht 5' 7.25 (1.708 m) Wt 247 lb 3.2 oz (112.129 kg) BMI 38.43 kg/m2 [facility]05/06/2011 Estimated Body mass index is 38.43 kg/(m^2) as calculated from the following: Height as of this encounter: 5' 7.25(1.708 m). Weight as of this encounter: 247 lb 3.2 oz(112.129 kg). General: well developed, well nourished, well groomed with pleasant affect Ear/Nose/Mouth: External ears and nose are without lesions. Auditory canals have no redness, swelling, drainage or obstructing wax. TMs have no dullness, opacity, or bulging. Hearing is grossly intact.Teeth and gums show no sign of inflammation. Oropharynx shows no sign of inflammation or exudate Neck: no masses, trachea is midline, no crepitus, thyroid not enlarged Chest: Chest is clear, no wheezing or rales Heart: S1 and S2 normal, no murmurs, clicks, gallops or rubs. Regular rate and rhythm. Breasts: Breasts are symmetric. No dominant, discrete, fixed or suspicious masses are noted. No skinor nipple changes or axillary nodes. Abdomen: the abdomen is soft without tenderness, guarding, mass, rebound or organomegaly. Bowel sounds are normal. Pelvic Examination: External genitalia without lesions. The introitus appears free of inflamation ordeformity. Urethra intact. The vagina is free of lesions. Vaginal discharge: none. The cervix is appropriate for parity. Pap obtained without spot bleeding. Bimanual exam reveals no uterine enlargement. The adnexa are free of masses or ovarian enlargement. There is no tenderness. A 1. Preventative health care 2. Need for prophylactic vaccination and inoculation against influenza 3. Screening for cervical cancer 4. HYPERTENSION NOS 5. POLYCYSTIC KIDNEY, UNSPEC 6. Reflux esophagitis 7. ALLERGIC RHINITIS NOS 8. Hypercholesterolemia with hyperglyceridemia 9. Obstructive sleep apnea (adult) (pediatric) 10. Breast screening, unspecified 11. Screening for iron deficiency anemia 12. Screening for lipoid disorders 13. Screening for thyroid disorder 14. Screening for other and unspecified endocrine, nutritional, metabolic, and immunity disorders P See pt instructions for plan/details. ELLANT ASSEMBLER documented in this encounter Plan of Treatment Not on filedocumented as of this encounter Procedures Procedure Name Priority Date/Time Associated Diagnosis Comme nts LIPID PANEL AND Routine 03/14/2012 10:41 Hypercholesterolemia with Results for this DIRECT LDL(IF AM PROPELLANT ASSEMBLER hyperglyceridemia procedure are in NEEDED) the results section. VITAMIN D Routine 03/14/2012 10:41 Screening for other and Results for this 25-HYDROXY, TOTAL AM PROPELLANT ASSEMBLER unspecified endocrine, procedure are in nutritional, metabolic, and the results immunity disorders section. HEMOGLOBIN, BLOOD Routine 03/14/2012 10:41 Screening for iron Results for this AM PROPELLANT ASSEMBLER deficiency anemia procedure are in the results section. FERRITIN Routine 03/14/2012 10:41 Results for this AM PROPELLANT ASSEMBLER procedure are i n the results section. TSH, SENSITIVE Routine 03/14/2012 10:41 Screening for thyroid Results for this (WITH REFLEX) AM PROPELLANT ASSEMBLER disorder procedure are in the results section. ALT (SGPT) Routine 03/14/2012 10:41 Hypercholesterolemia wit h Results for this AM PROPELLANT ASSEMBLER hyperglyceridemia procedure are in the results section. AST Routine 03/14/2012 10:41 Hypercholesterolemia wit h Results for this AM PROPELLANT ASSEMBLER hyperglyceridemia procedure are in the results section. IRON PROFILE Routine 03/14/2012 10:41 Results for this (IRON,TIBC,%SAT.( AM PROPELLANT ASSEMBLER procedure are in CALC)) the results section. PAP TEST, ROUTINE Routine 03/14/2012 12:00 Screening for cervi barry Results for this AM PROPELLANT ASSEMBLER cancer procedure are i n the results section. documented in this encounter Results IRON PROFILE (IRON,TIBC,%SAT.(CALC)) (03/14/2012 10:41 AM PROPELLANT ASSEMBLER) P athologist Signature Iron 79 37 - 170 [facility] mcg/dl TIBC 328 240 - 430 [facility] mcg/dl % Saturation, 24 15 - 50 % [facility] calc. Specimen Anatomical Collection Method Collection Time Receive d Time (Source) Location / / Volume Laterality 03/14/2012 10:41 03/14/2012 AM PROPELLANT ASSEMBLER 11:08 AM PROPELLANT ASSEMBLER Tiffany Gonzalez APRN, DNP LAB_1 Performing Organization Address [facility] Phon e Number [facility] [phone] [facility] [address] [place] [phone] FERRITIN (03/14/2012 10:41 AM PROPELLANT ASSEMBLER) P athologist Signature Ferritin 20 10 - 120 [facility] ng/ml Specimen Anatomical Collection Method Collection Time Receive d Time (Source) Location / / Volume Laterality 03/14/2012 10:41 03/14/2012 AM PROPELLANT ASSEMBLER 11:08 AM PROPELLANT ASSEMBLER Tiffany Gonzalez APRN, DNP LAB_1 Performing Organization Address [facility] Phon e Number [facility] [phone] [facility] [address] [place] [phone] ALT (SGPT) (03/14/2012 10:41 AM PROPELLANT ASSEMBLER) P athologist Signature ALT (SGPT) 34 0 - 69 U/L [facility] Specimen Anatomical Collection Method Collection Time Receive d Time (Source) Location / / Volume Laterality 03/14/2012 10:41 03/14/2012 AM PROPELLANT ASSEMBLER 11:08 AM PROPELLANT ASSEMBLER Tiffany Goznalez APRN, DNP LAB_1 Performing Organization Address [facility] Phon e Number [facility] [phone] [facility] [address] [place] [phone] AST (03/14/2012 10:41 AM PROPELLANT ASSEMBLER) P athologist Signature AST (SGOT) 26 0 - 55 U/L [facility] Specimen Anatomical Collection Method Collection Time Receive d Time (Source) Location / / Volume Laterality 03/14/2012 10:41 03/14/2012 AM PROPELLANT ASSEMBLER 11:08 AM PROPELLANT ASSEMBLER Tiffany Gonzalez APRN, DNP LAB_1 Performing Organization Address [facility] Phon e Number [facility] [phone] [facility] [address] [place] [phone] LIPID PANEL AND DIRECT LDL(IF NEEDED) (03/14/2012 10:41 AM PROPELLANT ASSEMBLER) [facility] Method Time Signature Cholesterol 186 0 - 199 [facility] mg/dl Triglyceride 149 0 - 149 [facility] mg/dl HDL 47 >40 mg/dl [facility] LDL, Calc. 109 0 - 129 [facility] mg/dl Non HDL Chol, 139 mg/dl [facility] Calc Hours Fasting 12 hours [facility] Specimen Anatomical Collection Method Collection Time Receive d Time (Source) Location / / Volume Laterality 03/14/2012 10:41 03/14/2012 AM PROPELLANT ASSEMBLER 11:08 AM PROPELLANT ASSEMBLER Tiffany Gonzalez APRN, DNP LAB_1 Performing Organization Address [facility] Phon e Number [facility] [phone] [phone] (ABNORMAL) HEMOGLOBIN, BLOOD (03/14/2012 10:41 AM PROPELLANT ASSEMBLER) athologist Signature Hemoglobin 11.3 (L) 12.0 - [facility] 16.0 g/dl Specimen Anatomical Collection Method Collection Time Receive d Time (Source) Location / / Volume Laterality 03/14/2012 10:41 03/14/2012 AM PROPELLANT ASSEMBLER 11:08 AM PROPELLANT ASSEMBLER Tiffany Gonzalez APRN, DNP LAB_1 Performing Organization Address [facility] Phon e Number [facility] [phone] [phone] (ABNORMAL) VITAMIN D 25-HYDROXY, TOTAL (V77.99) (03/14/2012 10:41 AM PROPELLANT ASSEMBLER) [facility] Method Time Signature Vitamin 23.0 (L) 30 - 80 [facility] D,25-OH, Tot ng/mL Comment: Deficiency: ??< 20 ng/mL Insufficiency: ??20-29 ng/mL Optimum Level: ??30-80 ng/mL Possible Toxicity: > 80 ng/mL Performed at [facility] Specimen Anatomical Collection Method Collection Time Receive d Time (Source) Location / / Volume Laterality 03/14/2012 10:41 03/14/2012 AM PROPELLANT ASSEMBLER 11:08 AM PROPELLANT ASSEMBLER Tiffany Gonzalez APRN, GAIL LAB_1 Performing Organization Address City/[facility]/ZIP Code Phon e Number [facility] [phone] [facility] [address] [phone] TSH, Sensitive (03/14/2012 10:41 AM PROPELLANT ASSEMBLER) [facility] Signature TSH, with 2.637 0.300 - [facility] Reflex 5.00 uIU/ml Specimen Anatomical Collection Method Collection Time Receive d Time (Source) Location / / Volume Laterality 03/14/2012 10:41 03/14/2012 AM PROPELLANT ASSEMBLER 11:08 AM PROPELLANT ASSEMBLER Tiffany Gonzalez APRN, GAIL LAB_1 Performing Organization Address City/[facility] Phon e Number [facility] [phone] [phone] PAP TEST, ROUTINE (03/14/2012 12:00 AM PROPELLANT ASSEMBLER) Component Value Ref Test Analysis Performed At [facility] Range Method Time Signature Cytology, (NOTE) [facility] Pap Account Director Cytology Report Patient Name: STEPHANIE NORMAN Taken: 03/14/2012 Received: 03/16/2012 Reported: 03/29/2012 Physician(s): Tiffany Gonzalez ?Source of Specimen Liquid routine Pap, cervical/endocervical: ?Specimen Adequacy ?Satisfactory for evaluation. ??Endocervical component present. ? Final Cytologic Interpretation/Result NEGATIVE FOR INTRAEPITHELIAL LESION OR MALIGNANCY (NILM) ?Other Cytologic Findings Endometrial cells present RECOMMEND clinical correlation Endometrial cells after age 40, particularly out of phase or after menopause, may be associated with benign endometrium, hormon al alterations and less commonly, endometrial/uterine abnormali ties. ?Inflammation Electronically Signed Out By Lotus Moreno ??CT (ASCP ) Lotus Moreno ??CT (ASCP) ? Pap Smear History Date of Last Menstrual Period: 03/06/2012 ?? Microscopic Description Microscopic examination is performed. [facility] Department of Pathology [address] [place] [phone] Specimen (Source) Anatomical Collection Method Collection Time Re ceived Time Location / / Volume Laterality 03/14/2012 03/16/2012 10:2 9 AM PROPELLANT ASSEMBLER Tiffany Gonzalez APRN, DNP LAB_1 Performing Organization Address City/State/ZIP Code Phon e Number [facility] [phone] [facility] [address] [phone] documented in this encounter Visit Diagnoses Diagnosis Preventative health care - Primary Routine general medical examination at a health care facility Need for prophylactic vaccination and in oculation against influenza Screening for cervical cancer Screening for malignant neoplasm of the cervix HYPERTENSION NOS Unspecified essential hypertension POLYCYSTIC KIDNEY, UNSPEC Polycystic kidney, unspecified type Reflux esophagitis ALLERGIC RHINITIS NOS Allergic rhinitis, cause unspecified Hypercholesterolemia with hyperglyceride marilee (HRC) Mixed hyperlipidemia Obstructive sleep apnea (adult) (pediatr ic) Breast screening, unspecified Screening for iron deficiency anemia Screening for lipoid disorders Screening for thyroid disorder Screening for other and unspecified endo crine, nutritional, metabolic, and immunity disorders documented in this encounter Care Teams Manufacturing Technician Relationship Specialty Start Date End Date Tiffany Gonzalez APRN, GAIL PCP - General 01/16/00 02/03/16 [address] [place] [address] documented as of this encounter
--- OUTSIDE RECORDS SUMMARY | 2021-12-28 14:13 | XMS_ITS | Encounter Summary ---
:1965 Author Organization [employer] [employer] Address [address] [place] [address] Care Team Providers Name Role Phone Tiffany Gonzalez APRN, GAIL Primary Care Provider + [phone] Reason for Visit Reason Comments Genetic Counseling Consult/Transfer Care (Routine) - Closed Specialty Diagnoses / Procedures Referred By Contact Refer red To Contact Diagnoses Family history of breast cancer Tiffany Gonzalez APRN, DNP [address] [place] [address] Referral ID Status Reason Start Date Expiration Date Visits Requ ested Visits Authorized [id number] Closed 03/15/2012 1 1 Encounter Details Date Type Department Care Team Description 03/21/2012 Office Visit [facility] Lula Cloud, Genetic counseling and testi ng (Primary Dx); [address] Francisco MD Family history of breast cancer; S. [address] [place] [facility] POLYCYSTIC KIDNEY, UNSPEC [place], [place] [id number] [phone] [place] [address] Social History Tobacco Use Types Packs/Day Years Used Date Smoking Tobacco: Former Cigarettes 0.5 Quit : 02/23/2011 Smokeless Tobacco: Never Comments: Restarted 12/2005; prior to janice t stopped for 8 months Alcohol Use Standard Drinks/Week Comments Yes 0.8 (1 standard drink = 0.6 oz pure alco hol) rarely Sex Assigned at Date Recorded Not on file documented as of this encounter Progress Notes Lavonne Boss - 03/23/2012 2:15 PM CST Mailed Lavonne Boss R REWINDER OPERATOR Lula Cloud MD - 03/21/2012 4:03 PM CST DATE OF SERVICE: 03/21/2012 REQUESTING PROVIDER: Tiffany Gonzalez REASON FOR CONSULTATION: Family history of breast cancer FAMILY HISTORY: Stephanie's dad age 69 of metastatic breast cancer. He was diagnosed with unilateral breast cancer age 65 and treated with surgery. He also had polycystic kidney disease and had a previous renal transplant. He was an only child. His mother also had polycystic kidney disease. There is no information regarding his father. Ancestry was [place]ian Stephanie's mother of metastatic breast cancer in 1986 age 44. She was diagnosed at age 40. She underwent a double mastectomy; the second breast was removed on a preventive basis. Stephanie's mother's twin brother committed suicide about 20 years ago. Stephanie's mother had 6 half siblings through her mother; none developed cancer. Ancestry is Turkmen and Vietnamese Stephanie has a 50-year-old brother and a 49-year-old sister; neither have had cancer. Stephanie does not have any biologic children. There is no Ashkenazi Religious ancestry. There is no family history of ovarian colon,prostate or pancreatic cancers. MEDICAL HISTORY: She began her first menses at age 10 . She has never been Her lifetime useof oral contraceptive use was estimated to be 6 years. She has had a mammogram since 1986. She has never had a breast biopsy. She is still menstruating regularly. She has polycystic kidney disease and will ultimately require a transplant ASSESSMENT: Family history of breast cancer in both parents DISCUSSION: We discussed that the majority of breast cancer is sporadic and not inherited. However, approximately 5-10% of breast cancer is hereditary. Characteristics of hereditary breast cancer include generation to generation transmission, earlier than typical age of onset, association with specific other cancers (ovarian, prostate, colon), and may be bilateral or multi-focal at diagnosis. Averageage at diagnosis for sporadic breast or ovarian cancer is 59. Hereditary breast cancer tends to occur at a younger age and has a higher risk for recurrence in the second breast. Ancestry, such as Ashkenazi Religious, is another factor which may result in an increased risk for breast or ovarian cancer. Overall, [place] women have a 1 in 8 risk of developing breast cancer in their lifetime and a 1 in 60 risk of developing ovarian cancer. More than 210,000 women are diagnosed with breast cancer in [facility] annually, making it the most common type of cancer in women. Breast cancer is the second most common cause of among women. In 2008 about 22,000 new cases of ovarian cancer were diagnosed and about 15,000 women from ovarian cancer. We discussed that there are several hereditary susceptibility genes for breast cancer. Two of these genes, BRCA1 and BRCA2, account for the majority of inherited breast cancer. Mutations, or genetic changes, of BRCA1 and BRCA2 are inherited in an autosomal dominant pattern. This means that if a parenthas a mutation of BRCA1, each child has a 50% likelihood to inherit the mutation. We reviewed some of the recent advances in molecular genetics for studying families with hereditary breast and/or ovarian cancer. The gene for BRCA1 is located on the 17th chromosome and accounts for about 80% of hereditary breast/ovarian cancer and about 50% of hereditary breast cancer. If a woman carries an abnormal gene or mutation for BRCA1, she has a lifetime risk to develop breast cancer of 56-87%, and a 16-63% risk to develop ovarian cancer (Whitney, 2003). Male carriers of BRCA1 or BRCA2 have a 6-16% risk to develop prostate cancer, about three times the risk of the general population. BRCA1 carriers also have an increased risk to develop colon and possibly pancreatic cancer. We discussed that BRCA2 is located on the 13th chromosome and accounts for about 30% of hereditary breast cancer. It does not have as significant of an increased risk for ovarian cancer (20%) but has the same high (56-87%) risk for breast cancer as well as increased risk for pancreatic cancer. Male mutation BRCA2 carriers have a 6% risk to develop breast cancer. Stephanie's father had breast cancer; BRCA2 is a good possibility. It was reported in 2010 that breast cancer tends to be diagnosed a younger age when a BRCA1 or [id number] is inherited from the father. In a study by Shey, women with paternal inheritance of BRCA1 developed breast cancer at an average age of 38. With maternal inheritance the average age was 45.For BRCA2, women who received the gene from her father developed cancer at 45, compared to age 50 ifinherited from their mother. This effect was not noticed with ovarian cancer. We reviewed age-related risks for breast cancer. For example, between 33-50% of BRCA1/2 mutation carriers develop breast cancer by age 50 compared to 2% of women in the general population. We discussed that there are molecular techniques available to identify mutations at these two loci. Over 1000 mutations have been identified. Stephanie is at increased risk to have a mutation of BRCA one or 2. . It is always most informative to study an affected family member with cancer prior to studying potentially at risk, but asymptomatic relatives. Once the causative mutation is identified, at risk, asymptomatic relatives may be offered mutation-specific molecular testing. In Stephanie's family, this approach is not feasible. If testing is completed on an individual who has not had breast or ovarian cancer, it is essential to understand that failure to detect a mutation doesnot eliminate the possibility of a BRCA1 or BRCA2 mutation in the family nor does it exclude anotherhereditary cause. About 10-15% of hereditary breast cancer does not localize to either BRCA1 or BRCA2. Therefore, a negative test result does not exclude a hereditary cause or an increased risk for cancer. Molecular testing is costly. Sequencing of BRCA1 and BRCA2 costs about $3400. Once a specific mutation in a family is identified, studying an additional at- risk relative costs about $440. I discussed some of the strategies for following women at increased risk for breast or ovarian cancer. The National Comprehensive Cancer Network (NCCN) breast cancer screening guidelines include: monthly breast self-examinations, annual mammography and breast MRI beginning at age 25 and clinical breast examinations twice per year beginning at age 25. The NCCN screening guidelines for ovarian cancer include: pelvic examination, transvaginal ultrasound with color Doppler and serum CA-125 semiannually beginning at age 35 or 5-10 years younger than the earliest diagnosis of ovarian cancer in the family. Unfortunately, screening for ovarian cancer is of limited effectiveness and has not been shown to reduce mortality. Some may choose prophylactic surgery or chemoprophylaxis with Tamoxifen or raloxifene (Evista). The Breast Cancer Prevention trial showed that Tamoxifen lowered the risk of invasive breast cancer by 49% in women at high risk for developing the disease. A [facility] study by Dr. Nelly John reported a 90% reduction in breast cancer incidence among women at moderate to high risk for breast cancer following bilateral prophylactic mastectomy. A 2009 report published by [employer] showed a53% reduction in breast cancer risk after bilateral prophylactic oophorectomy in BRCA1 and BRCA2 carriers; the risk for ovarian cancer was reduced by as much as 95%. Oral contraceptives have been shownto reduce the risk for ovarian cancer in BRCA mutation carriers by 60%. I recommended that Stephanie contact [facility] member services to verify coverage of testing. I obtain blood from her today for DNA testing for BRCA1 and BRCA2. Results should be available in one to two weeks. I will schedule a telephone visit to discuss these results. I am happy to answer any additional questions. I spent 45 minutes with the patient of which 30 was counseling and coordinating care. cc: Tiffany Barillas [address] [address] R REWINDER OPERATOR documented in this encounter Plan of Treatment Scheduled Orders Name Type Priority Associated Diagnoses Order S chedule OTHER - LAB Lab Routine Family history o f breast cancer Expected: 03/21/2012, Genetic counseling and testi ng Expires: 04/21/2012 documented as of this encounter Visit Diagnoses Diagnosis Genetic counseling and testing - Primary Genetic counseling Family history of breast cancer Family history of malignant neoplasm of breast POLYCYSTIC KIDNEY, UNSPEC Polycystic kidney, unspecified type documented in this encounter Care Teams Electronics Processing Supervisor Relationship Specialty Start Date End Date Tfifany Gonzalez APRN, DNP PCP - General 01/16/00 02/03/16 [id number] [place] [id number] documented as of this encounter
--- OUTSIDE RECORDS SUMMARY | 2021-12-28 14:13 | XMS_ITS | Encounter Summary ---
:1965 Author Organization [facility] Address [address] [place] [address] Care Team Providers Name Role Phone Tiffany Gonzalez APRN, DNP Primary Care Provider Encounter Details Date Type Department Care Team Description 05/18/2011 Correspondence None Inactive, Provider PROOF O F DELIVERY Social History Tobacco Use Types Packs/Day Years Used Date Smoking Tobacco: Former Cigarettes 0.5 Quit : 02/23/2011 Smokeless Tobacco: Never Comments: Restarted 12/2005; prior to janice t stopped for 8 months Alcohol Use Standard Drinks/Week Comments Yes 0.8 (1 standard drink = 0.6 oz pure alco hol) rarely Sex Assigned at Date Recorded Not on file documented as of this encounter Progress Notes Interface, In Chrtscr And Scan - 05/21/2011 3:19 PM BILINGUAL SALES ASSISTANT NGUAL SALES ASSISTANT documented in this encounter Plan of Treatment Not on filedocumented as of this encounter Visit Diagnoses Not on filedocumented in this encounter Care Teams Wireless Team Member Relationship Specialty Start Date End Date Tiffany Gonzalez APRN, GAIL PCP - General 01/16/00 02/03/16 [address] [place] [id number] documented as of this encounter
--- OUTSIDE RECORDS SUMMARY | 2021-12-28 14:13 | XMS_ITS | Encounter Summary ---
:1965 Author Organization [facility] Address [address] [place] [address] Care Team Providers Name Role Phone Tiffany Gonzalez APRN, DNP Primary Care Provider Reason for Visit Reason Comments Sore Throat x3 weeks RASH on bottom lip and spreading Encounter Details Date Type Department Care Team Description 08/28/2011 Office Visit [facility] Lisa, Sore throat (Primary Dx); [address] Tiffany Still APRN, HYPERTENSION NOS; [place] [address] [facility] POLYCYSTIC KIDNEY, UNSPEC; [phone] [address] Mild persistent asthma [place], [place] [id number] (Wo rk) Social History Tobacco Use Types [...] Sign Reading Time Taken Comments Blood Pressure 163/104 08/28/2011 9:09 AM CDT Pulse 64 08/28/2011 9:09 AM CDT Temperature 36.8 ??C (98.2 ??F) 08/28/2011 9:09 AM CDT Respiratory Rate - - Oxygen Saturation - - Inhaled Oxygen Concentration - - Weight - - Height - - Body Mass Index - - documented in this encounter Patient Instructions Patient InstructionsTiffany Gonzalez APRN, DNP - 08/28/2011 9:45 AM CDT Repeat blood pressure was 158/102: therefore we will Add new blood pressure medicine. Follow up exam in 2-3 wks for blood pressure check with Tiffany Gonzalez NP Bring blood pressure readings in to next visit. Will repeat CBC in 2wks. Will check additional iron stores along with kidney function/potassium Last CBC w/differential result: Lab Results Component Value Date/Time WBC 6.4 08/28/2011 9:35 AM RBC 3.92* 08/28/2011 9:35 AM HGB 11.8* 08/28/2011 9:35 AM HCT 35.7* 08/28/2011 9:35 AM MCV 91.0 08/28/2011 9:35 AM MCH 30.2 08/28/2011 9:35 AM MCHC 33.1 08/28/2011 9:35 AM PLTS 362 08/28/2011 9:35 AM RDW 13.0 08/28/2011 9:35 AM PMN 4.6 08/28/2011 9:35 AM LYMA 1.3 08/28/2011 9:35 AM MONOA 0.3 08/28/2011 9:35 AM EOSA 0.1 08/28/2011 9:35 AM BASA 0.0 08/28/2011 9:35 AM documented in this encounter Progress Notes Tiffany Gonzalez APRN, DNP - 08/28/2011 9:16 AM CDT S: Stephanie Norman is a 46 yr old female presents with Chief Complaint Patient presents with ??? Sore Throat x3 weeks ??? RASH on bottom lip and spreading feeling slightly tired, sore throat And sores on lips x past 3 wks. Assoc with headache. Patient does not report chest pain, dental pain, facial pain, colored nasal drainage, fever, pain in the both ear(s), dyspnea and wheezing. Past Medical History is positive for: Asthma and PKD Just adopted family of 4 siblings, she and Shreyas now have 6 kids. History Substance Use Topics ??? Smoking status: Former Smoker -- 0.5 packs/day Types: Cigarettes Quit date: 02/23/2011 ??? Smokeless tobacco: Never Used Comment: Restarted 12/2005; prior to that stopped for 8 months ??? Alcohol Use: 0.5 oz/week 1 Cans of beer per week rarely Patient Active Problem List Diagnoses ??? VARICELLA UNCOMPLICATED ??? REFLUX ESOPHAGITIS ??? POLYCYSTIC KIDNEY, UNSPEC ??? HYPERTENSION NOS ??? ALLERGIC RHINITIS NOS ??? ASTHMA, UNSPECIFIED ??? Hypercholesterolemia with Hyperglyceridemia ??? Tobacco Use Disorder ??? PMDD (Premenstrual Dysphoric Disorder) ??? Obstructive sleep apnea (adult) (pediatric) Current Outpatient Prescriptions Medication Sig ??? acetaminophen (TYLENOL EXTRA STRENGTH) 500 MG tablet Take 500-1,000 mg by mouth every 4 hours asneeded. ??? ALBUterol 2.5 mg/3 mL, 0.083%, nebulizer solution Inhale 3 mL by mouth 4 times a day as needed for Wheezing. ??? fxlcadj-oamnbhwvguuig-smpltggw (EXCEDRIN MIGRAINE) 250-250-65 MG tablet Take 1 Tab by mouth every 6 hours as needed. ??? beclomethasone (QVAR) 80 MCG/ACT inhaler Inhale 1 Puff by mouth two times a day. Rinse mouth after use ??? citalopram (AKA CELEXA) 40 MG tablet Take 1 Tab by mouth daily. ??? CLARITIN 10 MG OR TABS 1 TABLET DAILY ??? FISH OIL 1000 MG OR CAPS 1 capsule daily ??? guaifenesin-codeine (GUAIFENESIN AC) 100-10 MG/5ML solution Take 10 mL by mouth daily at bedtime. May repeat x 1 in 2 hrs if no effect. ??? lisinopril (AKA ZESTRIL) 20 MG tablet Take 30 mg by mouth daily. ??? omeprazole (PRILOSEC) 20 MG capsule Take 1 Cap by mouth daily. Take 1 hour before a meal. ??? simvastatin (AKA ZOCOR) 40 MG tablet TAKE ONE-HALF TABLET BY MOUTH DAILY AT BEDTIME. ??? traZODone (AKA DESYREL) 100 MG tablet Take 100 mg by mouth at bedtime as needed. ??? VITAMIN B COMPLEX OR 1 daily ??? VITAMIN C 500 MG OR TABS 2 tablets daily in cold season O: BP 163/104 Pulse 64 Temp 98.2 ??F (36.8 ??C) Repeat blood pressure 158/102 Constitutional: healthy appearing in NAD Eyes: no conjunctival erythema or edema, no drainage ENT:TMS without erythema/edema/ good landmarks with positive light reflex, nasal turbinates with erythema and edema, pharynx with slight erythema but no edema or exudate. There is no periorbital inflammation. Lymph: there is no cervical lymphadenopathy Cardiac: S1,S2 no murmur,gallop or rub Lungs: CTA bilat Extrem: no edema Skin: tiny vesicles with erythematous base on bottom lip RSS: negative HGB (g/dl) Date Value 08/28/2011 11.8* 03/28/2010 13.7 03/18/2010 12.7 WBC (k/ul) Date Value 08/28/2011 6.4 03/28/2010 8.6 03/18/2010 9.2 A: 1. Sore throat 2. HYPERTENSION NOS 3. POLYCYSTIC KIDNEY, UNSPEC 4. Mild persistent asthma P: Add new blood pressure medicine. See med summary for details. Monitoring for sore throat, canker like sore on mouth-likely viral. Regarding lower Hgb:She reports that periods can be heavy. Feels she is eating well. We discussed rechecking Hgb/iron levels in a couple wks.See pt instructions for plan/details. documented in this encounter Plan of Treatment Not on filedocumented as of this encounter Procedures Procedure Name Priority Date/Time Associated Diagnosis Comme nts COMPLETE BLOOD Waiting 08/28/2011 9:35 AM Sore throat Results for this COUNT-W/DIFF CDT procedure are i n the results section. MONO IF Waiting 08/28/2011 9:35 AM Sore throat Results f or this CDT procedure are i n the results section. STREP GRP A, RAPID Waiting 08/28/2011 9:29 AM Sore throat Res ults for this SCREEN CDT procedure are i n the results section. STREP GRP A, THROAT Routine 08/28/2011 9:29 AM Re sults for this CULTURE ONLY CDT procedure are i n the results section. documented in this encounter Results (ABNORMAL) HEMOGRAM/PLTS/DIFF (08/28/2011 9:35 AM CDT) [facility] [employer] [facility] Method Time Signature WBC 6.4 4.0 - [facility] 11.0 k/ul RBC 3.92 (L) 4.0 - 5.2 [facility] M/ul Hemoglobin 11.8 (L) 12.0 - [facility] 16.0 g/dl HCT 35.7 (L) 36.0 - [facility] 46.0 % MCV 91.0 80 - 100 [facility] fl MCH 30.2 26 - 34 [facility] pg MCHC 33.1 32 - 36 [facility] g/dl RDW 13.0 11.5 - [facility] 14.5 % Platelets 362 150 - 450 [facility] k/ul PMN/Band 73 (H) 43 - 72 % [facility] Lymph 20 17 - 43 % [facility] [place] 5 4 - 12 % [facility] Eos 2 0 - 8 % [facility] Baso 0 0 - 1 % [facility] Neutrophil 4.6 1.8 - 7.7 [facility] Absolute k/ul Lymph Absolute 1.3 1.0 - 4.8 [facility] k/ul [place] Absolute 0.3 0.1 - 0.7 [facility] k/ul Eos Absolute 0.1 0.0 - 0.5 [facility] k/ul Baso Absolute 0.0 0.0 - 0.2 [facility] k/ul Specimen Anatomical Collection Method Collection Time Receive d Time (Source) Location / / Volume Laterality 08/28/2011 9:35 AM 2 9:45 CDT AM CDT Tiffany Gonzalez APRN, DNP LAB_1 Performing Organization Address City/State/ZIP Code Phon e Number [facility] [phone] [facility] [address] MONO IF (08/28/2011 9:35 AM CDT) [facility] [employer] Method Time Signature [place] If [place] Test Not [facility] Indicated Specimen Anatomical Collection Method Collection Time Receive d Time (Source) Location / / Volume Laterality 08/28/2011 9:35 AM 2 9:45 CDT AM CDT Tiffany Gonzalez APRN, DNP LAB_1 Performing Organization Address [facility]/ZIP Code Phon e Number [facility] [email or web address] [phone] [facility] [address] [place] [address] STREP GRP A, THROAT CULTURE ONLY (08/28/2011 9:29 AM CDT) Patholo gist Method Time Signature Grp A Culture Negative NEG [facility] Final Specimen Anatomical Collection Method Collection Time Receive d Time (Source) Location / / Volume Laterality 08/28/2011 9:29 AM 2 9:33 CDT AM CDT Tiffany Gonzalez APRN, DNP LAB_1 Performing Organization Address [facility] Phon e Number [facility] [email or web address] [phone] [address] STREP GRP A, RAPID SCREEN (08/28/2011 9:29 AM CDT) Patholo gist Method Time Signature Grp A Rapid Negative NEG [facility] Screen Specimen Anatomical Collection Method Collection Time Receive d Time (Source) Location / / Volume Laterality 08/28/2011 9:29 AM 2 9:33 CDT AM CDT Tiffany Gonzalez APRN, DNP LAB_1 Performing Organization Address [facility] Phon e Number [facility] [phone] [address] documented in this encounter Visit Diagnoses Diagnosis Sore throat - Primary Acute pharyngitis HYPERTENSION NOS Unspecified essential hypertension POLYCYSTIC KIDNEY, UNSPEC Polycystic kidney, unspecified type Mild persistent asthma ([facility]) Unspecified asthma documented in this encounter Care Teams Children'S Counselor Relationship Specialty Start Date End Date Tiffany Gonzalez APRN, DNP PCP - General 01/16/00 02/03/16 [address] [place] [id number] documented as of this encounter
--- OUTSIDE RECORDS SUMMARY | 2021-12-28 14:13 | XMS_ITS | Encounter Summary ---
:1965 Author Organization [facility] Address [address] [place] [address] Care Team Providers Name Role Phone Tiffany Gonzalez APRN, GAIL Primary Care Provider Encounter Details Date Type Department Care Team Description 03/14/2012 Orders Only [facility] Claims MD Eusebio Security Contact Bill [address] [place] [address] Mailstop [id number] [phone] (Wo rk) Social History Tobacco Use Types [...] on filedocumented in this encounter Care Teams Grounds Restoration Specialist Relationship Specialty Start Date End Date Tiffany Gonzalez APRN, GAIL PCP - General 01/16/00 02/03/16 [address] [id number] documented as of this encounter
--- OUTSIDE RECORDS SUMMARY | 2021-12-28 14:13 | XMS_ITS | Encounter Summary ---
:1965 Author [facility] Address [address] [place] [address] Care Team Providers Name Role Phone Tiffany Gonzalez APRN, GAIL Primary Care Provider [phone] Reason for Referral Procedure/Equipment - Closed Specialty Diagnoses / Procedures Referred By Contact Refer red To Contact Diagnoses Obstructive sleep apnea (adult) (pediatric) Weight gain Darryn Fletcher MD [address] [place] [address] Referral ID Status Reason Start Date Expiration Date Visits Requ ested Visits Authorized [id number] Closed 10/15/2011 1 1 Scheduling Instructions Your order has been sent to [employer] for processing. You should have received further instruction from y our provider, either verbally or in writing, that will explain how you will obtain yo ur equipment. If you have any questions, you may contact [facility] at [phone]. This serves as your notification that a Home Medical supplie r will be contacting you about this order on the behalf of your ordering provider. Reason for Visit Reason Comments Follow-up, NOS sleep apnea Encounter Details Date Type Department Care Team Description 10/15/2011 Office Visit Specialty Center Darryn Fletcher, Obst ructive sleep apnea (adult) (pediatric) (Primary Dx); [facility] Obesity; [facility]. [facility] [place] [address] [place] [phone] Social History Tobacco Use Types Packs/Day Years [...] Sign Reading Time Taken Comments Blood Pressure 121/83 10/15/2011 9:05 AM CDT Pulse 63 10/15/2011 9:05 AM CDT Temperature - - Respiratory Rate - - Oxygen Saturation - - Inhaled Oxygen Concentration - - Weight 109.2 kg (240 lb 11.2 oz) 10/15/2011 9:05 AM CDT Height 170.2 cm (5' 7) 10/15/2011 9:05 AM CDT Body Mass Index 37.7 10/15/2011 9:05 AM CDT documented in this encounter Patient Instructions Patient InstructionsUcer, Darryn Parnell MD - 10/15/2011 9:18 AM CDT Ms. Norman will be scheduled for a mask fitting. Once she starts to use her new mask, and if it is not leaking, if she continues to feel the pressureis low, and she is feeling tired during the day she will contact my office to change her CPAP from 8cm H2O to an AUTO CPAP setting. She will continue with her CPAP as prescribed. She will not drive or engage in potentially dangerous activities if feeling sleepy. She will discuss weight loss issues with her primary physician. She will follow with Lisa Ludwig for her other neurological issues. She will continue to follow with her other care providers as scheduled. She will also inform her care providers/surgeons about her TREMAINE, and if having a procedure/surgery requiring anesthesia, sedation or a hospital stay, she will bring her CPAP to the hospital and use it during the procedure/hospital stay. She will have a follow up with me in 3 months, or earlier if needed. Al Fletcher MD documented in this encounter Progress Notes Darryn Fletcher MD - 10/15/2011 7:47 AM CDT PULMONARY/SLEEP OUTPATIENT FOLLOW UP Stephanie Norman was seen in our clinic for a follow up for: 1. Obstructive sleep apnea (adult) (pediatric) (327.23) 2. Obesity (278.00L) TREMAINE DETAIL: PSG; 03/30/11 RDI: 35.6, AHI: 29.1 REM RDI: 100 O2: 79 % Snoring reported as: moderate;continuous Wt around the time of Baseline PS lbs. BMI: 35.55 CPAP titration on: Same night 03/30/11 Pressure 8 cm H2O. Wt around the time of last CPAP titration: 227 lbs. BMI: 35.55 She was last seen on: 05/14/11 Since her last visit she has been using her CPAP, at 8 cm H2O pressure. She finds the pressure to be low. Her mask is comfortable and is leaking. This is her original mask. Her current sleep schedule is as follows: Time to go to bed: 21:30. Time it takes to fall asleep: 15 min. Wakes up one times a night. Reason for awakenings: To go to the Bathroom. Can go back to sleep again in few minutes. However does not use her mask again, due to leakage. She does not snore with the mask on. Wakes up in the morning at 6:45am Compared to when he was not using the CPAP, she feels about the same. Compared to when he was not using the CPAP during the rest of the day she feels she is more tired. She does not take naps. She does not fall asleep while inactive such as while watching TV or reading a book. She does not fall asleep inappropriately while talking to other people or driving. Overall she finds the CPAP has been helpfu to improve her sleep and daytime energy levels in the past, however recently she is not feeling the benefit as she did before. Since her last visit there has been no significant change in her overall health. Following with nephrology for the polycystic kidney, and will go to [place] for f/u. REVIEW OF SYSTEMS: Negative for recent head trauma, loss of consciousness, loss of vision, double vision, loss of hearing, speech or swallowing difficulties, weakness or numbness on the face, arms or legs suggestive of aCVA/TIA, bowel or bladder incontinence, gait difficulties or diffuse muscle pain. Negative for chest pain, shortness of breath, nausea, vomiting, fever or chills. In terms of depression or anxiety she feels stressed due the polycystic kidney. Otherwise no significant depression/anxiety issues. The patients weight around the time of the sleep study was 227 lbs. Current wt is 240 lbs. PAST MEDICAL HISTORY: Past Medical History Diagnosis Date ??? HYPERTENSION NOS 06/01/2003 ??? VARICELLA UNCOMPLICATED ??? Reflux esophagitis ??? POLYCYSTIC KIDNEY, UNSPEC ??? ALLERGIC RHINITIS NOS ??? ASTHMA, UNSPECIFIED ??? Hypercholesterolemia with hyperglyceridemia ??? Tobacco use disorder ??? PMDD (premenstrual dysphoric disorder) on Celexa ??? ENDOMETRIAL POLYP ??? 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 Snoring Patient Active Problem List Diagnoses ??? VARICELLA UNCOMPLICATED ??? REFLUX ESOPHAGITIS ??? POLYCYSTIC KIDNEY, UNSPEC ??? HYPERTENSION NOS ??? ALLERGIC RHINITIS NOS ??? Hypercholesterolemia with Hyperglyceridemia ??? Tobacco use disorder ??? PMDD (Premenstrual Dysphoric Disorder) ??? Obstructive sleep apnea (adult) (pediatric) ??? Mild persistent asthma Past Surgical History Procedure Date ? ? Hysteroscpy surg; w/bx &/ polypect 03/31/04 ??? 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 Tobacco: quit 02/23/11 Alcohol: rarely Drugs: none FAMILY HISTORY: Mom: Breast Ca, pt is being screened. Dad: , also Rare breast cancer. Brothers: 1 healthy Sisters: 1 healthy Marital status: Lives with female partner. Children: Boys 2 Adopted Girls 4 Adopted She does not have any family members with sleep disorders as far as she knows CURRENT MEDICATIONS: Current Outpatient Prescriptions Medication Sig ??? acetaminophen (TYLENOL EXTRA STRENGTH) 500 MG tablet Take 500-1,000 mg by mouth every 4 hours asneeded. ??? ALBUterol 2.5 mg/3 mL, 0.083%, nebulizer solution Inhale 3 mL by mouth 4 times a day as needed for Wheezing. ??? lwmmime-igxsapkyaveun-eoypnqxv (EXCEDRIN MIGRAINE) 250-250-65 MG tablet Take 1 [...] if no effect. ??? lisinopril (AKA ZESTRIL) 40 MG tablet Take 40 mg by mouth daily. 1 daily ??? omeprazole (PRILOSEC) 20 MG capsule Take [...] TABS 2 tablets daily in cold season OBJECTIVE: BP 121/83 Pulse 63 Ht 5' 7 (1.702 m) Wt 240 lb 11.2 oz (109.181 kg) BMI 37.70 kg/m2 Today a physical examination was not done. 1. Obstructive sleep apnea (adult) (pediatric) 2. Obesity 3. Weight gain ASSESSMENT: The patient has TREMAINE. She has been using her CPAP however not feeling the benefit as she did in the past. I discussed with her that if her mask is leaking it reduces the effectiveness of the Rx. She will be scheduled for a mask fitting. She also has gained weight and if despite the mask fitting, she continues to feel the pressure is low, and feels tired, she will then be switched from CPAP at 8 to AUTO CPAP 5-20 cm H2O to establish pressure. If needed she may be kept on the AUTO CPAP setting as well. I also discussed with the patient that her weight may be a contributing factor to her sleep disordered breathing, and she may want to discuss weight loss issues with her primary physician. Agrees. PLAN: After a detailed discussion with the patient, the following plan was agreed upon: Patient Instructions Ms. Norman will be scheduled for a mask fitting. Once she starts to use her new mask, and if it is not leaking, if she continues to feel the pressureis low, and she is feeling tired during the day she will contact my office to change her CPAP from 8cm H2O to an AUTO CPAP setting. She will continue with her CPAP as prescribed. She will not drive or engage in potentially dangerous activities if feeling sleepy. She will discuss weight loss issues with her primary physician. She will follow with Lisa Ludwig for her other neurological issues. She will continue to follow with her other care providers as scheduled. She will also inform her care providers/surgeons about her TREMAINE, and if having a procedure/surgery requiring anesthesia, sedation or a hospital stay, she will bring her CPAP to the hospital and use it during the procedure/hospital stay. She will have a follow up with me in 3 months, or earlier if needed. Al Fletcher MD I discussed all of the above with the patient, who was agreeable with the plan. I spent about 20 minutes with the patient, all of which was spent in discussing the above and with coordination of care. Al Fletcher MD CC: Lisa Ludwig CNP documented in this encounter Plan of Treatment Scheduled Referrals Name Type Priority Associated Diagnoses Order S chedule [facility] Referral Routine Obstructive sleep apnea Orde red: 10/15/2011 CPAP/SUPPLIES/MASK (adult) (pedi atric) FITTINGS/ADJUSTMENTS Weight gain [[id number]] documented as of this encounter Visit Diagnoses Diagnosis Obstructive sleep apnea (adult) (pediatr ic) - Primary Obesity ([facility]) Obesity, unspecified Weight gain Abnormal weight gain documented in this encounter Care Teams Safety Companion Relationship Specialty Start Date End Date Tiffany Gonzalez APRN, GAIL PCP - General 01/16/00 02/03/16 [address] [place] [id number] documented as of this encounter
--- OUTSIDE RECORDS SUMMARY | 2021-12-28 14:13 | XMS_ITS | Encounter Summary ---
:1965 Author Organization [facility] Address [address] [place] [address] Care Team Providers Name Role Phone Tiffnay Gonzalez APRN, DNP Primary Care Provider Encounter Details Date Type Department Care Team Description 03/14/2012 Orders Only [facility] Tiffany Gonzalez Anemia (Primary Dx) [address] [place], [place] [address] [address] [phone] [address] [id number] (Wo rk) Social History Tobacco Use Types [...] as of this encounter Visit Diagnoses Diagnosis Anemia - Primary Anemia, unspecified documented in this encounter Care Teams Train Starter Relationship Specialty Start Date End Date Tiffany Gonzalez APRN, GAIL PCP - General 01/16/00 02/03/16 [address] [id number] documented as of this encounter
--- OUTSIDE RECORDS SUMMARY | 2021-12-28 14:13 | XMS_ITS | Encounter Summary ---
:1965 Author Organization [facility] Address [address] [place] [address] Care Team Providers Name Role Phone Tiffany Gonzalez APRN, DNP Primary Care Provider [phone] Encounter Details Date Type Department Care Team Description 10/07/2012 Notes/Orders Specialty Center [address] [facility] Michael OTR/L [address] [place] [address] Social History Tobacco Use Types [...] documented as of this encounter Nursing Notes Shar Ludwig - 10/07/2012 11:54 AM CDT [facility]; appointment availability from waitlist with Trish Ludwig 10/07/2012, 11:55 AM documented in this encounter Plan of Treatment Not on filedocumented as of this encounter Visit Diagnoses Not on filedocumented in this encounter Care Teams Precision Jig Grinder Relationship Specialty Start Date End Date Tiffany Gonzalez APRN, DNP PCP - General 01/16/00 02/03/16 [address] [place] [id number] documented as of this encounter
--- OUTSIDE RECORDS SUMMARY | 2021-12-28 14:13 | XMS_ITS | Encounter Summary ---
:1965 Author Organization [facility] Address [address] [place] [address] Care Team Providers Name Role Phone Tiffany Gonzalez APRN, DNP Primary Care Provider Reason for Visit Consult/Transfer Care (Routine) - Closed Specialty Diagnoses / Procedures Referred By Contact Refer red To Contact Valerie Ellison MD [address] [facility] [address] [place] [address] Referral ID Status Reason Start Date Expiration Date Visits Requ ested Visits Authorized [id number] Closed 09/01/2012 1 1 Encounter Details Date Type Department Care Team Description 09/05/2012 Office Visit Specialty Center Melva Estevez MD Ca nceled (Clinic [address] [facility] Therapy Lindsey Rodriguez, OTR/L [address] [place], [place] [id number] Request) [address] [place] [address] Social History Tobacco Use Types [...] documented as of this encounter Progress Notes Jennifer, Lindsey A, OTR/L - 09/05/2012 1:06 PM CDT Erroneous Entry RENU [place],CHT documented in this encounter Plan of Treatment Not on filedocumented as of this encounter Visit Diagnoses Not on filedocumented in this encounter Care Teams Computer Video Game Designer Relationship Specialty Start Date End Date Tiffany Gonzalez APRN, DNP PCP - General 01/16/00 02/03/16 [address] [place] [id number] documented as of this encounter
--- OUTSIDE RECORDS SUMMARY | 2021-12-28 14:13 | XMS_ITS | Encounter Summary ---
:1965 Author Organization [facility] Address [address] [place] [address] Care Team Providers Name Role Phone Tiffany Gonzalez APRN, DNP Primary Care Provider Reason for Visit Reason Comments FOLLOW-UP,WORK [facility] Encounter Details Date Type Department Care Team Description 10/06/2012 Office Visit [facility] Marina Zepeda [facility] er tenosynovitis of and Environmental LMD hand and wrist Medicine [address] [place] [address] (Primary Dx) [address] [place] [id number] [phone] Social History Tobacco Use Types Packs/Day Years [...] Sign Reading Time Taken Comments Blood Pressure 130/99 10/06/2012 2:00 PM CDT Pulse 72 10/06/2012 2:00 PM CDT Temperature - - Respiratory Rate - - Oxygen Saturation - - Inhaled Oxygen Concentration - - Weight 112 kg (247 lb) 10/06/2012 2:00 PM CDT Height 171.5 cm (5' 7.5) 10/06/2012 2:00 PM CDT Body Mass Index 38.11 10/06/2012 2:00 PM CDT documented in this encounter Progress Notes Marina Clark MD - 10/06/2012 2:24 PM CDT Employee: Stephanie Norman, 47 yr female : 1965 DOI: 07/28/2012 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 Has now started to improve with current restrictions (since 09/15/12) for 20 minutes on, 10 minutes off from mousing. Continuing OT 2x/wk. Using joystick mouse but doesn't think it helps. Wears brace at night. Able to identify when wrist will start getting sore. Stops and stretches and is able to hernandez off pain. No need for pain medication. She is not taking any medications and is unable to take NSAIDs due to polycystic kidney disease. O: BP 130/99 Pulse 72 Ht 5' 7.5 (1.715 m) Wt 247 lb (112.038 kg) BMI 38.09 kg/m2 GEN: Alert & oriented x three, pleasant and cooperative. RIGHT WRIST: Inspection -- No deformities, swelling, erythema or ecchymoses. Muscle contours are normal. Palpation -- No tenderness over fingers or wrist. No tenderness over carpal tunnel. No bony tenderness of wrist or hands, including snuffbox and finger joints. ROM -- Full ROM of wrist in flexion, extension, radial and ulnar deviation. Full ROM of fingers. Only has slight discomfort along flexor tendon/muscle of index finger with flexion. Strength -- Full strength of wrist, full tray service worker and pinch. Sensation -- Sensation intact to light touch over arms, wrist and all fingers Special Tests -- Negative tinel's, negative phalens, negative rita. A: Overuse flexor tendon injury, right wrist Work Related P: Return to work with restrictions from today until seen in follow-up. Restrictions: Restrict typing to 20 minute intervals with 10 minute break following. Up to 8 hours per day. TREATMENT: Home Treatment: Heat 4 times per day Stretching Exercises 4 times per day Referral: Continue Hand therapy Continue using the joystick mouse Follow Up: 3 weeks Given patient is now having improvement in symptoms, recommend continuing current restrictions and OT 2x/wk for the next 3 weeks. If patient has improved in the next 3 weeks, will likely release without restrictions. Patient was seen and evaluated with Dr. Oreilly (Eduardo). Pari Dalal MD PGY3 Occupational Medicine Resident I performed the malhotra elements of history and exam, and agree with resident's findings and plan of care as discussed with Dr. Dalal. Marina Oreilly MD 10/06/2012 documented in this encounter Nursing Notes 10/06/2012 2:00 PM CDT >> Rosy Cotto CMA Sarah Oct 06, 2012 2:02 PM Pt reports doing the same since her last visit. She is in physical therapy twice a week, she received a new splint today at physical therapy and will start wearing it tonight at . Pt is not taking anything for pain. Pt is not using ice or heat therapy. Pt reports she has wonderful breaks at work if she becomes fatigued. Pain scale 3/10. Rosy Cotto CMA 10/06/2012, 2:02 PM documented in this encounter Plan of Treatment Not on filedocumented as of this encounter Visit Diagnoses Diagnosis Other tenosynovitis of hand and wrist - Primary documented in this encounter Care Teams Clearing Supervisor Relationship Specialty Start Date End Date Tiffany Gonzalez, DIRECTOR FINANCIAL PLANNING, DNP PCP - General 01/16/00 02/03/16 [address] [place] [id number] documented as of this encounter
--- OUTSIDE RECORDS SUMMARY | 2021-12-28 14:13 | XMS_ITS | Encounter Summary ---
:1965 Author Organization [email or web address] Address [address] [place] [address] Care Team Providers Name Role Phone Tiffany Gonzalez APRN, DNP Primary Care Provider Encounter Details Date Type Department Care Team Description 10/06/2012 Office Visit Specialty [facility] Melva Estevez MD Ot her tenosynovitis of 401 Hand Therapy Selene Dickinson OTR/L hand and wrist (Primary [address] D[address]) [place] [address] Social History Tobacco Use Types [...] encounter Progress Notes Selene Dickinson OTR/L - 10/06/2012 11:15 AM CDT HAND OCCUPATIONAL THERAPY DAILY NOTE/PROGRESS NOTE 10/06/2012 Patient Name: Stephanie Norman [id number] Payor: [employer] Plan: [employer] Product Type: Non Managed WC Diagnosis: tendonitis ICD-9-code: 727.05 Date of Onset: 06-27-2012 Date of Surgery: n/a Referring Physician: Melva Estevez Order Date(s): 09-01-2012 Date of initial evaluation/progress note(s): 09/05/2012, 10/05/2012 QuickDASH (lower score equates to less disability): 09/05/2012 score:QuickDash Calculated Score: 6.8 , 10/05/2012 13.6 Precautions: None noted Barriers to Learning/Other Pertinent Information: none noted Injury: Right Hand Dominance: Right History of Injury: Patient has workers compensation injury with report date of 06/27/12 for repetitive use injury. 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 Stephanie Norman will report decreased pain by 1-2 pain levels during work activity.:pain level has decreased by 1level VISIT NUMBER: 8 Total # of visits approved: W/C 0 HP visits used prior to Eval PAIN: Intensity Level: Current 3/10 in wrist with movement SUBJECTIVE Pt reports pain is a little bit better. States the ring finger stretch and the arm massage/trigger point are helping. Pt states she can feel sensation in the ring finger when she places on her mouse, states the ring finger pain starts 15-30 minutes after mousing. 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 Specialist: Right: Trial 1: 85# Left: Trial 1: 76# SPECIAL TESTS / PROVOCATIVE TESTING: Wrist/Hand: Wrist / thumb extension: Negative Epicondylitis: Composite Extensor Wad Stretch: Negative Tender with Palpation Lateral Epicondyle: Negative Tender with Palpation Medial Epicondyle: Negative Passive composite flexion test: negative Tender with palpation at palpation of FDS and FDP Resisted wrist: extension Negative and flexion Negative Pain with resisted FDP and FDS of ring finger TREATMENT Physical Agent Modalities: Light Touch: intact Combined electrical stimulation and ultrasound: Pulsed, 2 mHz, 1.0 w/cm2, 6 intensity, 2 minutes of set up time, 8 minutes of treatment, location: Volar forearm, for purpose of tissue relaxation. Treatment number:7 Neuromuscular Reeducation: 10 minutes and education, instruction, and initiating mirror therapy withgraded movement Patient instructed to complete at home 3x/day. Instructed to stop home session when noticing symptoms starting Orthotic Fitting/Trainin minutes. Patient received treatment in Hand- Occupational Therapy and was fitted with: Right , ring finger, Custom Hand-Based Orthosis: Volar ring finger extension orthotic to wear at work as needed and at night with wrist brace. Patient is to wear this orthotic:when sleeping and intermittently throughout the day with symptoms. Proper fit assessed by therapist. Patient trained in wear and care of orthotic. Also, patient understands that if redness or other signs of pressure appear and do not diminish after 30 minutes patient should contact this department as soon as possible. Therapeutic Exercises: 8 minutes, Passive range of motion of forearm flexor muscles 2 reps instructed and performed isolated ring finger passive extension stretch, 2 reps instructed and performed Time includes assessment for progress note RESPONSE TO TREATMENT: likes the ultrasound and feels this is helpful Orthotic fit in clinic and patient understanding use Demonstrates mirror therapy correctly in clinic and verbalizing understanding of rationale and purpose SPECIALIZED SKILL OF THERAPIST REQUIRED FOR: modalities, education, modification/progression of HEP,orthtoic fabrication ASSESSMENT At risk for injury : Further Cumulative Trauma Pain: needs improvement Range of Motion needs improvement Strength : needs improvement Functional limitations Quick DASH score increased and patient verbalizing she is more aware of the limitations of her hand since starting therapy. ACHIEVEMENT OF SHORT-TERM GOALS: SHORT TERM GOALS: to be completed in 4 visits. Stephanie Norman will be independent in HEP and upgrades.-MET Stephanie Norman will report decreased pain by 1-2 pain levels during work activity.:pain level has decreased by 1, will continue goal TREATMENT PLAN Pt will continue with the initially prescribed treatment plan with focus on the following: Check Out for Orthotics/Prosthetics Manual Therapy Techniques: Neuromuscular Reeducation: Orthotic Fitting/Training: Physical Agent Modalities: Cold Fluidotherapy Heat High Volt Iontophoresis: With dexamethasone Paraffin Wax Immersion Ultrasound Combination ultrasound/electrical stimulation Self Care/Home Management and Training: Therapeutic Activities Therapeutic Exercise: REHAB POTENTIAL: Good TOLERANCE TOWARD TREATMENT: Excellent Patient will continue with hand/occupational therapy 2 times per week for 4 Weeks and may be modified as deemed appropriate. PLAN FOR NEXT TREATMENT Ultrasound, Active ROM, Passive ROM and resume resistance when feeling better Graded motor imagery with laterality-progress HEP including texture cube MINUTES SEEN: 36 Treatment Charges: Custom Orthosis: Finger orthotic - Quantity: 1 Treatment: Neuromuscular Reeducation: Quantity: 1 Orthotic/Prosthetic (mgmt/training/assess/fit) Quantity: 1 RENU Dukes, CHT, CLT documented in this encounter Plan of Treatment Not on filedocumented as of this encounter Visit Diagnoses Diagnosis Other tenosynovitis of hand and wrist - Primary documented in this encounter Care Teams Patient Relations Director Relationship Specialty Start Date End Date Tiffany Gonzalez APRN, DNP PCP - General 01/16/00 02/03/16 [address] [place] [id number] documented as of this encounter
--- OUTSIDE RECORDS SUMMARY | 2021-12-28 14:13 | XMS_ITS | Encounter Summary ---
:1965 Author Organization [employer] Address [address] [place] [address] Care Team Providers Name Role Phone Tiffany Gonzalez APRN, DNP Primary Care Provider [phone] Reason for Visit Reason Comments FOLLOW-UP,BP IMMUNIZATIONS Pnuemococcal? Encounter Details Date Type Department Care Team Description 09/10/2011 Office Visit Elisabeth Gonzalez, HYPERTENSION NO S (Primary Dx); Practice Tiffany Still, Hypercholesterolemia with hy perglyceridemia [address] 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 Please be aware that you will know the lab results before the provider does. Allow 2 business days for lab comments to show online if results are abnormal. Tiffany Gonzalez NP is out of the clinic on Wed. For health care information online, visit the website, and click on View [employer]. If you have any questions about this visit, please call [phone] during the day or email questions through your online account. At night or on the weekend you may call the Care Line at [phone] or . documented in this encounter Progress Notes Tiffany Gonzalez APRN, DNP - 09/10/2011 9:44 AM CDT SUBJECTIVE: This 46 yr, female presents for follow-up of hypertension. Recent BP readings are within normal limits, and BP goal is met. Goes to [facility] for PKD monitoring. Stephanie Norman is currently on Current Outpatient Prescriptions Medication Sig ??? acetaminophen (TYLENOL EXTRA STRENGTH) 500 MG tablet Take 500-1,000 mg by mouth every 4 hours asneeded. ??? ALBUterol 2.5 mg/3 mL, 0.083%, nebulizer solution Inhale 3 mL by mouth 4 times a day as needed for Wheezing. ??? wubaxki-ilitoeymmuaon-phjtdxho (EXCEDRIN MIGRAINE) 250-250-65 MG tablet Take 1 [...] TABS 2 tablets daily in cold season . Allergies as of 09/10/2011 - Shar as Reviewed 09/10/2011 Allergen Reaction Noted ??? Amoxicillin ??? Beta adrenergic blockers 05/01/2008 ??? Neomycin 08/07/2002 ??? Penicillins 08/06/2000 Patient Active Problem List Diagnoses ??? VARICELLA UNCOMPLICATED ??? REFLUX ESOPHAGITIS ??? POLYCYSTIC KIDNEY, UNSPEC ??? HYPERTENSION NOS ??? ALLERGIC RHINITIS NOS ??? Hypercholesterolemia with Hyperglyceridemia ??? Tobacco Use Disorder ??? PMDD (Premenstrual Dysphoric Disorder) ??? Obstructive sleep apnea (adult) (pediatric) ??? Mild persistent asthma Compliance with diet and exercise is fair Since last visit she has experienced significant leg cramps-intolerable with chlorthalidone. Her [place] MD wanted her to stop and increase lisinopril. Since starting lisinopril 10 days ago, theleg cramps have stopped. No headaches now. No longer having sore throat, and rash on lips is now gone. Last lab results are CREATININE (mg/dl) Date Value 12/27/2010 1.51* BUN (mg/dl) Date Value 12/27/2010 14 POTASSIUM (mmol/L) Date Value 12/27/2010 4.9 HDL (mg/dl) Date Value 12/27/2010 46 LDL, CALC. (mg/dl) Date Value 12/27/2010 84 GLUCOSE (mg/dl) Date Value 02/11/2010 74 GLUCOSE,FASTING (mg/dl) Date Value 12/27/2010 77 O: General Appearance is ahealthy, alert, in no distress, female in no acute distress. BP 116/87 Pulse 76 Wt 241 lb 6.4 oz (109.498 kg) Neck: is WNL Cardiovascular: normal S1, S2, without murmur, gallop or rub Lungs: clear to auscultation without any rales or rhonchi bilaterally Extremities: No cyanosis, clubbing, or edema A: 1. HYPERTENSION NOS 2. Hypercholesterolemia with hyperglyceridemia P: Laboratory: Cr and K+ Keep follow up appt with [facility] Return to Clinic in 3-4month(s) documented in this encounter Plan of Treatment Not on filedocumented as of this encounter Procedures Procedure Name Priority Date/Time Associated Diagnosis Comme nts CREATININE / GFR Routine 09/10/2011 10:12 AM HYPERTENSION NOS Results for this CDT procedure are i n the results section. POTASSIUM Routine 09/10/2011 10:12 AM HYPERTENSION NOS Resu lts for this CDT procedure are i n the results section. documented in this encounter Results (ABNORMAL) CREATININE / GFR (09/10/2011 10:12 AM CDT) [facility] gist Method Time Signature Creatinine 1.65 (H) 0.52 - [facility] 1.04 mg/dl GFR, Estimated 33.3 (L) >60 [facility] ml/min/1. 73m2 GFR, Est., If 40.3 (L) >60 [facility] Black ml/min/1. 73m2 Specimen Anatomical Collection Method Collection Time Receive d Time (Source) Location / / Volume Laterality 09/10/2011 10:12 09/10/2011 AM CDT 10:19 AM CDT Tiffany Gonzalez APRN, DNP LAB_1 Performing Organization Address City/State/ZIP Code Phon e Number [facility] [phone] [facility] [address] [address] POTASSIUM (09/10/2011 10:12 AM CDT) P athologist Signature Potassium 4.9 3.5 - 5.3 [facility] mmol/L Specimen Anatomical Collection Method Collection Time Receive d Time (Source) Location / / Volume Laterality 09/10/2011 10:12 09/10/2011 AM CDT 10:19 AM CDT Tiffany Gonzalez APRN, DNP LAB_1 Performing Organization Address City/State/ZIP Code Phon e Number [facility] [phone] [facility] [address] [address] documented in this encounter Visit Diagnoses Diagnosis HYPERTENSION NOS - Primary Unspecified essential hypertension Hypercholesterolemia with hyperglyceride marilee ([facility]) Mixed hyperlipidemia documented in this encounter Care Teams Distillery Worker Relationship Specialty Start Date End Date Tiffany Gonzalez APRN, DNP PCP - General 01/16/00 02/03/16 [address] [place] [id number] documented as of this encounter
--- OUTSIDE RECORDS SUMMARY | 2021-12-28 14:13 | XMS_ITS | Encounter Summary ---
:1965 Author Organization [employer] Address [address] [place] [address] Care Team Providers Name Role Phone Tiffany Gonzalez APRN, DNP Primary Care Provider Encounter Details Date Type Department Care Team Description 04/07/2012 Orders Only Specialty Center Laboratory Anemia [address] [place] [address] Social History Tobacco Use Types [...] Associated Diagnosis Comme nts COMPLETE BLOOD Routine 04/07/2012 3:28 PM Anemia Results for this COUNT-W/DIFF ENGLISH LANGUAGE LEARNER TUTOR procedure are i n the results section. VIT B12 & FOLATE Routine 04/07/2012 3:28 PM Anemia Resul ts for this ENGLISH LANGUAGE LEARNER TUTOR procedure are i n the results section. RETIC, AUTOMATED Routine 04/07/2012 3:28 PM Anemia Resul ts for this ENGLISH LANGUAGE LEARNER TUTOR procedure are i n the results section. documented in this encounter Results VIT B12 & FOLATE (04/07/2012 3:28 PM ENGLISH LANGUAGE LEARNER TUTOR) athologist Signature Vitamin B12 580 714 - 547 [facility] pg/ml Folate >20.0 >3.0 ng/ml [facility] Specimen Anatomical Collection Method Collection Time Receive d Time (Source) Location / / Volume Laterality 04/07/2012 3:28 PM 2 3:36 ENGLISH LANGUAGE LEARNER TUTOR PM ENGLISH LANGUAGE LEARNER TUTOR Tiffany Gonzalez APRN, DNP LAB_1 Performing Organization Address [facility] Phon e Number [facility] [phone] [phone] RETIC, AUTOMATED (04/07/2012 3:28 PM ENGLISH LANGUAGE LEARNER TUTOR) P athologist Signature Retic, 1.3 0.6 - 1.9 [facility] Automated % Retic Absolute 0.05 0.03 - [facility] 0.05 M/ul Specimen Anatomical Collection Method Collection Time Receive d Time (Source) Location / / Volume Laterality 04/07/2012 3:28 PM 2 3:36 ENGLISH LANGUAGE LEARNER TUTOR PM ENGLISH LANGUAGE LEARNER TUTOR Tiffany Gonzalez APRN, DNP LAB_1 Performing Organization Address [facility] Phon e Number [facility] [phone] [address] (ABNORMAL) HEMOGRAM/PLTS/DIFF (04/07/2012 3:28 PM ENGLISH LANGUAGE LEARNER TUTOR) Patholo gist Method Time Signature WBC 7.0 4.0 - [facility] 11.0 k/ul RBC 3.88 (L) 4.0 - 5.2 [facility] M/ul Hemoglobin 11.9 (L) 12.0 - [facility] 16.0 g/dl HCT 36.2 36.0 - [facility] 46.0 % MCV 93.3 80 - 100 [facility] fl MCH 30.7 26 - 34 [facility] pg MCHC 32.9 32 - 36 [facility] g/dl RDW 13.1 11.5 - [facility] 14.5 % Platelets 338 150 - 450 [facility] k/ul PMN/Band 64 43 - 72 % [facility] Lymph 26 17 - 43 % [facility] [place] 7 4 - 12 % [facility] Eos 2 0 - 8 % [facility] Baso 1 0 - 1 % [facility] Neutrophil 4.5 1.8 - 7.7 [facility] Absolute k/ul Lymph Absolute 1.8 1.0 - 4.8 [facility] k/ul [place] Absolute 0.5 0.1 - 0.7 [facility] k/ul Eos Absolute 0.1 0.0 - 0.5 [facility] k/ul Baso Absolute 0.0 0.0 - 0.2 [facility] k/ul Immature Gran 0 0 % [facility] Imm Gran 0.0 0 k/ul [facility] Absolute Specimen Anatomical Collection Method Collection Time Receive d Time (Source) Location / / Volume Laterality 04/07/2012 3:28 PM 2 3:36 ENGLISH LANGUAGE LEARNER TUTOR PM ENGLISH LANGUAGE LEARNER TUTOR Tiffany Gonzalez APRN, DNP LAB_1 Performing Organization Address City/State/ZIP Code Phon e Number [facility] [phone] [facility] [address] [address] documented in this encounter Visit Diagnoses Diagnosis Anemia Anemia, unspecified documented in this encounter Care Teams Pattern Assembler Relationship Specialty Start Date End Date Tiffany Gonzalez APRN, DNP PCP - General 01/16/00 02/03/16 [address] [place] [id number] documented as of this encounter
--- OUTSIDE RECORDS SUMMARY | 2021-12-28 14:13 | XMS_ITS | Encounter Summary ---
:1965 Author Organization [employer] Address [address] [place] [address] Care Team Providers Name Role Phone Tiffany Gonzalez APRN, DNP Primary Care Provider Reason for Referral Procedure/Equipment (Routine) - Closed Specialty Diagnoses / Procedures Referred By Contact Refer red To Contact Procedures [facility] MAMMOGRAM SCREENING BILATERAL [address] [place] [address] Referral ID Status Reason Start Date Expiration Date Visits Requ ested Visits Authorized [id number] Closed 03/08/2012 1 1 ING LINE WORKER Reason for Visit Procedure/Equipment (Routine) - Closed Specialty Diagnoses / Procedures Referred By Contact Refer red To Contact Procedures Breast [facility] MAMMOGRAM SCREENING BILATERAL [address] [place] [address] Referral ID Status Reason Start Date Expiration Date Visits Requ ested Visits Authorized [id number] Closed 03/08/2012 1 1 Encounter Details Date Type Department Care Team Description 03/08/2012 [facility] Tiffany Gonzalez, [address] [facility] [place] [address] [place] [address] [address] [id number] (Wo ) Social History Tobacco Use Types Packs/Day Years [...] Associated Diagnosis Comme nts MM MAMMOGRAM Routine 03/08/2012 3:37 PM Results f or this SCREENING BILAT W COATING LINE WORKER procedure are in CAD the results section. documented in this encounter Results MAMMOGRAM SCREENING BILATERAL (03/08/2012 3:37 PM COATING LINE WORKER) Anatomical Region Laterality Modality Breast Bilateral Mammography Specimen (Source) Anatomical Location Collection Method / Collectio n Time Received Time / Laterality Volume Narrative 03/09/2012 9:31 AM COATING LINE WORKER BILATERAL FULL FIELD DIGITAL SCREENING M AMMOGRAM Performed on 03/08/2012 Comparison: MAMMOGRAM SCREENING W/CAD BI LAT 02/26/11, MAMMOGRAM SCREENING W/CAD BILAT 11/28/09 and MAMMOGRAM SCREEN ING W/CAD BILAT 08/03/08. Findings: The breasts have scattered fib roglandular densities. There is no radiographic evidence of malignancy.This study was evaluated with the assistance of Computer-Aided Detection. ??Repeat routine screening mammogram in one year is recommended. ACR BI-RADS Category 1: Negative Procedure Note Iggy Joy MD - 03/09/2012Forma tting of this note might be different from the original. BILATERAL FULL FIELD DIGITAL SCREENING M AMMOGRAM Performed on 03/08/2012 Comparison: MAMMOGRAM SCREENING W/CAD BI LAT 02/26/11, MAMMOGRAM SCREENING W/CAD BILAT 11/28/09 and MAMMOGRAM SCREENING W/CAD BILAT 08/03/08. Findings: The breasts have scattered fib roglandular densities. There is no radiographic evidence of malignancy.This study was evaluated with the assistance of Computer-Aided Detection. Repeat routine screening mammogram in one year is recommended. ACR BI-RADS Category 1: Negative Tiffany Gonzalez KENNEL MANAGER, DNP RAD AYANNA documented in this encounter Visit Diagnoses Not on filedocumented in this encounter Care Teams Carry Out Clerk Relationship Specialty Start Date End Date Tiffany Gonzalez APRN, DNP PCP - General 01/16/00 02/03/16 [address] [place] [id number] documented as of this encounter
--- OUTSIDE RECORDS SUMMARY | 2021-12-28 14:13 | XMS_ITS | Encounter Summary ---
:1965 Author Organization [employer] Address [address] [place] [address] Care Team Providers Name Role Phone Tiffany Gonzalez APRN, DNP Primary Care Provider Reason for Visit Reason Comments FOLLOW-UP,WORK COMP [facility] Encounter Details Date Type Department Care Team Description 09/15/2012 Office Visit [facility] Occupational Melva Estevez, Othe r tenosynovitis of and Environmental hand and amparo chauhan (Primary Medicine Dx) [address] [place] [id number] Social History Tobacco Use Types Packs/Day Years Used Date Smoking Tobacco: Former Cigarettes 0.5 Quit : 02/23/2011 Smokeless Tobacco: Never Comments: Restarted 12/2005; prior to janice t stopped for 8 months Alcohol Use Standard Drinks/Week Comments Yes 0.8 (1 standard drink = 0.6 oz pure alco hol) rarely Sex Assigned at Date Recorded Not on file documented as of this encounter Progress Notes Melva Estevez MD - 09/15/2012 10:56 AM CDT Employee: Stephanie Norman, 47 yr female : 1965 DOI: 07/28/2012 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 Pain is unchanged. On the volar aspect of the right wrist in the midline. No numbness/tingling. Worsens with mousing. Does get some relief from stretches from OT. Had continued to work and special services supervisor has accommodated restrictions of 50 minute typing intervals with 10 minutes rest. Saw OT 3 times. Given wristbrace (not custom) and instructed to wear at night (not while mousing). Ergonomic eval completed. Nochanges made other than given joystick mouse. She is not taking any medications and is unable to take NSAIDs due to polycystic kidney disease. O: Alert & oriented x three, pleasant and cooperative. Right Wrist: Inspection -- No deformities, swelling, erythema or ecchymoses. Muscle contours are normal. Palpation -- No tenderness over fingers or wrist. No tenderness over carpal tunnel. No bony tenderness of wrist or hands, including snuffbox and finger joints. ROM -- Full ROM of wrist in flexion, extension, radial and ulnar deviation. Full ROM of fingers. Strength -- Full strength of wrist, full recovery collector and pinch. Pain in palm of hand with resisted supination only. Pain in midline of volar aspect of wrist with resisted extension of wrist. Sensation -- Sensation intact to light touch over arms, wrist and all fingers Special Tests -- Negative tinel's, negative phalens, negative rita (though R more uncomfortable than L). No pain with [facility] grind test. A: Overuse flexor tendon injury, right wrist Work Related P: Return to work with restrictions from today until seen in follow-up. Restrict typing to 20 minute intervals with 10 minute break following. Up to 8 hours per day. Use heat 4 times per day. Stretching Exercises per OT recs. Continue Hand Therapy and splinting per their recs. Continue using joystick mouse. No need for imaging at this time as there does not seem to be an arthritic etiology for her pain;however, if pain has not improved at next visit, consider imaging to eval for a an arthritic component. Follow-up in [address] Estevez. Patient was seen and evaluated with Dr. Estevez. Pari Dalal MD PGY2 Occupational Medicine Resident I performed the malhotra elements of history and exam, and agree with resident's findings and plan of care as discussed with Dr.Anne Al Dalal MD. About 25 minutes spent with the patient with more than 20 minutes used on education, counseling and discussion of workability and treatment / follow-up plan which includes disability management. documented in this encounter Nursing Notes 09/15/2012 10:40 AM CDT >> Rosy Cotto CMA Sarah September 15, 2012 10:42 AM Pt reports being the same, painful. Pt is taking tylenol for pain. Pt is using heat therapy, pt isin physical therapy. Pain scale 3/10. Rosy Cotto CMA 09/15/2012, 10:42 AM documented in this encounter Plan of Treatment Not on filedocumented as of this encounter Visit Diagnoses Diagnosis Other tenosynovitis of hand and wrist - Primary documented in this encounter Care Teams Chocolate Refining Roller Relationship Specialty Start Date End Date Tiffany Gonzalez APRN, DNP PCP - General 01/16/00 02/03/16 [address] [place] [id number] documented as of this encounter
--- OUTSIDE RECORDS SUMMARY | 2021-12-28 14:13 | XMS_ITS | Encounter Summary ---
:1965 Author Organization [employer] Address [address] [place] [address] Care Team Providers Name Role Phone Tiffany Gonzalez APRN, DNP Primary Care Provider [phone] Reason for Visit Consult/Transfer Care (Routine) - Closed Specialty Diagnoses / Procedures Referred By Contact Refer red To Contact Valerie Ellison MD [address] [place] [address] Referral ID Status Reason Start Date Expiration Date Visits Requ ested Visits Authorized [id number] Closed 09/01/2012 1 1 Encounter Details Date Type Department Care Team Description 09/05/2012 Office Visit Specialty Center Melva Estevez MD Ot her tenosynovitis of 401 Hand Therapy Lindsey Rodriguez OTR/L [address] [place] [address] hand and wrist (Primary [address] Dx) [place] [address] Social History Tobacco Use Types [...] documented as of this encounter Progress Notes Lindsey Rodriguez, OTR/L - 09/05/2012 1:17 PM CDT HAND THERAPY INITIAL EVALUATION REPORT 09/05/2012 Patient Name: Stephanie Norman [id number] No coverage found. Diagnosis: tendonitis ICD-9-code: 727.05 Date of Onset: 08-27-2012 Date of Surgery: n/a Referring Physician: Melva Estevez Order Date(s): 09-01-2012 Date of initial evaluation/progress note(s): 09/05/2012 QuickDASH (lower score equates to less disability): 09/05/2012 score:QuickDash Calculated Score: 6.8 Precautions: None noted Barriers to Learning/Other Pertinent Information: none noted Injury: Right Hand Dominance: Right History of Injury: Patient has workers compensation injury with report date of 08/27/12 for repetitive use injury. 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 She has seen an Occupational Health MD and has been referred to hand therapy Previous therapy for this condition No Past Medical History and Medications: Reviewed in Epic Current Home Exercise Program:stretching of the forearm/wrist/fingers, massage to forearm muscles, icing, splinting as needed Visit# 1 Insurance Information : FUNCTION/WORK: Prior level of function : independent Current level of function Eating: No problem Writing: Mildly limited Dressing: No problem Grooming: No problem Gripping: Mildly limited Driving: No problem Work tasks: Mildly limited Light household tasks: No problem Heavy household tasks: No problem Leisure activities: No problem Sleeping: No problem PATIENT CONCERNS/GOALS: Relieve pain when I work Patient reports that her pain comes on while working. She has an order from her referring provider to have an ergonomic assessment completed. She has not been working since her MD restrictions, due to waiting for a splint, although plans to return possibly tomorrow. PAIN: Intensity Level: Current 1/10, Worst 5/10 Location: Volar and dorsal wrist to ring finger tip Pain Quality: pressure, worse at the end of the work day ACTIVE RANGE OF MOTION Right: FINGER: Within Normal Limits THUMB: Within Normal Limits WRIST: Within Normal Limits FOREARM /ELBOW: Within Normal Limits STRENGTH: Castings Trimmer: Right: Trial 1: 90# Left: Trial 1: 78# SPECIAL TESTS / PROVOCATIVE TESTING: Wrist/Hand: Wrist / thumb extension: Negative Epicondylitis: Composite Extensor Wad Stretch: Negative Tender with Palpation Lateral Epicondyle: Negative Tender with Palpation Medial Epicondyle: Negative Passive composite flexion test: Positive Tender with palpation at palpation of FDS and FDP Resisted wrist: extension Negative and flexion Negative ASSESSMENT/ PROBLEM LIST At risk for injury : further cumulative trauma Pain: needs improvement Lack of knowledge re: ergonomics Functional limitations Symptoms are consistent with a tendonitis involving the FDS and FDP tendons to the ring finger. TODAY's TREATMENT/ HOME PROGRAM: Evaluation completed. Physical Agent Modalities: Light Touch: intact Combined electrical stimulation and ultrasound: Pulsed, 2 mHz, 1.0 w/cm2, 10 intensity, 2 minutes ofset up time, 8 minutes of treatment, location: Volar forearm, for purpose of decreased muscle tightness and pain. Treatment number: 1 Self Care/Home Management and Trainin minutes, Patient Education: Anatomy & Kinesiology, Mechanism of Injury and Home Exercise Program and Pre-jeniffer Splints: Wrist splint: Quantity: 1, Size: medium. Issued performed and instructed finger- wrist stretching of the forearm, massage to forearm muscles, icing. Education on function of splint for resting the wrist. Patient to use the splint for sleeping and for lifting. She will also wear splint for work activity to remind her not to over-use the hand. (able to use pre-fabricated orthosis, proper fit and function assessed) Manual Therapy Techniques: 8 minutes, Myofascial Massage, Transfriction Massage and Soft tissue mobilization of forearm SHORT TERM GOALS: to be completed in 4 visits. Stephanie Norman will be independent in HEP and upgrades. Stephanie Norman will report decreased pain by 1-2 pain levels during work activity. MCC GOALS: to be completed in 6 visits. Stephanie Norman will be independent with symptom management to prevent further reinjury. Patient will have functional use of the involved upper extremity for the majority of home and work activities upon discharge from Hand Occupational Therapy. REHAB POTENTIAL: Good RESPONSE TO TREATMENT: denied increased pain with exercises and demo proper technique. Reported orthotic was comfortable. Appropriate questions and therapist answered concerns. SPECIALIZED SKILL OF THERAPIST REQUIRED FOR: assessment patient education Instruction/ progression of HEP to maximize function and independent with ADLS TOLERANCE TOWARD TREATMENT: Good TREATMENT PLAN: may be modified as deemed appropriate: Manual Therapy Techniques: Myofascial Massage, Transfriction Massage and Soft tissue mobilization Physical Agent Modalities: Neuromuscular Electrical Stimulation Ultrasound Self Care/Home Management and Training: Ergonomics education of hand/wrist, Patient Education: Anatomy & Kinesiology, Mechanism of Injury and Home Exercise Program and Pre-jeniffer Splints: Wrist splint: Quantity: 1, Size: medium Therapeutic Exercise: AROM and Strengthen Stephanie Norman will continue hand / occupational therapy 2 times per week for 6 visits and may be modified as deemed appropriate. Questions regarding this hand therapy evaluation can be directed to [phone]. MINUTES SEEN: 55 PLAN for Next Treatment: Ultrasound, NMES, manual therapy and begin core body strengthening Treatment Charges: Evaluations: O.T. Evaluation Qty: 1 Physical Agent Modalities: Ultrasound: Quantity: 1 Prefabricated Orthosis: Wrist orthosis: Quantity: 1, Size: medium Treatment: Self Care/Home Management and Training: Quantity: 1 Manual therapy: quantity: 1 NIMISHA York/Michael,CHT documented in this encounter Plan of Treatment Scheduled Referrals Name Type Priority Associated Diagnoses Order S [facility] HAND OCCUPATIONAL THERAPY Referral Routine Or dered: 09/01/2012 documented as of this encounter Visit Diagnoses Diagnosis Other tenosynovitis of hand and wrist - Primary documented in this encounter Care Teams Nurse Supervisor Relationship Specialty Start Date End Date Tiffany Gonzalez APRN, GAIL PCP - General 01/16/00 02/03/16 [address] [place] [id number] documented as of this encounter
--- OUTSIDE RECORDS SUMMARY | 2021-12-28 14:13 | XMS_ITS | Encounter Summary ---
:1965 Author Organization [employer] Address [address] [place] [address] Care Team Providers Name Role Phone Tiffany Gonzalez APRN, DNP Primary Care Provider [phone] Encounter Details Date Type Department Care Team Description 09/07/2012 Office Visit Specialty Center Melva Estevez MD Ot her tenosynovitis of 401 Hand Therapy Selene Dickinson OTR/L hand and wrist (Primary [address] Dx) [place] [address] Social History Tobacco Use Types [...] encounter Progress Notes Selene Dickinson OTR/L - 09/07/2012 1:40 PM CDT HAND OCCUPATIONAL THERAPY DAILY NOTE 09/07/2012 Patient Name: Stephanie Norman [id number] Payor: Plan: SELF INSURED [id number] Product Type: Commercial Diagnosis: tendonitis ICD-9-code: 727.05 [...] use injury. 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 [facility] workman's compensation has approved therapy visits. OBJECTIVE Tightness in volar forearm muscles Shoulder external rotation: Right: 4/5, left: 5/5 TREATMENT Manual Therapy Techniques: 8 minutes minutes Graston technique for soft tissue and scar mobilization using instruments GT-4, scooping, scanning and strumming strokes. Strokes completed in multiple directions to decrease adhesions of the volar forearm. Pain during treatment ranked at 1/5 or less. Physical Agent Modalities: Light Touch: intact Combined electrical stimulation and ultrasound: Pulsed, 2 mHz, 1.0 w/cm2, 6 intensity, 2 minutes of set up time, 8 minutes of treatment, location: Volar forearm, for purpose of tissue relaxation. Treatment number: 2 Therapeutic Exercises: 12 minutes, Passive range of motion of forearm flexor muscles and forearm extensor muscles. 2 reps instructed and performed. and instructed and performed proximal stability exercises: wall facing V, 5 reps instructed and performed, shoulder external rotation: 10 reps with bluetheraband instructed and performed. Patient instructed to complete 1 times per day.issued blue theraband RESPONSE TO TREATMENT: forearm feels more flexible after Graston technique Demonstrates new exercises correctly in clinic SPECIALIZED SKILL OF THERAPIST REQUIRED FOR: Modalities, graston technique, education,instruction/progression of HEP ASSESSMENT At risk for injury : Further Cumulative Trauma Pain: needs improvement Strength : needs improvement Lack of knowledge re: ergonomics Functional limitations PLAN FOR NEXT TREATMENT Passive ROM, Manual Therapy and Combination ultrasound/electrical stimulation Progression of HEP, instsruction in desk stretches MINUTES SEEN: 30 Treatment Charges: Treatment: Manual Therapy Techniques: Quantity : 1 Therapeutic Exercises: Quantity: 1 Trish Dickinson OTR/L, CHT, CLT documented in this encounter Plan of Treatment Not on filedocumented as of this encounter Visit Diagnoses Diagnosis Other tenosynovitis of hand and wrist - Primary documented in this encounter Care Teams Manager [employer]iances Relationship Specialty Start Date End Date Tiffany Gonzalez APRN, DNP PCP - General 01/16/00 02/03/16 [address] [id number] documented as of this encounter
--- OUTSIDE RECORDS SUMMARY | 2021-12-28 14:13 | XMS_ITS | Encounter Summary ---
:1965 Author Organization [facility] Address [address] [place] [address] Care Team Providers Name Role Phone Tiffany Gonzalez APRN, GAIL Primary Care Provider [phone] Reason for Referral Consult/Transfer Care (Routine) - Closed Specialty Diagnoses / Procedures Referred By Contact Refer red To Contact Valerie Ellison MD [address] [place] [address] Referral ID Status Reason Start Date Expiration Date Visits Requ ested Visits Authorized [id number] Closed 09/01/2012 1 1 Scheduling Instructions Your provider has recommended an appoint ment with a [facility] Hand Occupational Therapist. Please stop at the clinic lisa ck out desk for assistance with scheduling or if you prefer to call for your appointme nt you may call [facility] Outpatient Hand Occupational Therapy at 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 She notes pain is directly associated with mousing. Pain is described as 4/10 pain along dorsal and volar wrist (mostly volar), pain is intermittent and worse with use, especially with ring finger flexion and extension. No numbness or tingling in fingers. No hand or wrist weakness. She is not taking any medications and is unable to take NSAIDs due to polycystic kidney disease. She has not missed any work days due to this injury. Has worked current position for 15 years without changes in job description. She has no prior history of similar symptoms in past or diagnosis of carpal tunnel in past. No trauma. No exercise or activities outside of work. She does have 6 kids whichkeep her busy. She has polycystic kidney disease, on lisinopril, hypercholerstrolemia, on simvastatin. Past Medical History Diagnosis Date ??? HYPERTENSION [...] onset in childhood ??? Snoring Past Surgical History: Past Surgical History Procedure Laterality Date ? ? Hysteroscpy surg; w/bx &/ polypect 03/31/04 ??? Appendectomy 04-07-2010 Current Outpatient Prescriptions Medication Sig ??? acetaminophen (TYLENOL EXTRA STRENGTH) 500 MG tablet Take 500-1,000 mg by mouth every 4 hours asneeded. ??? ALBUterol 2.5 mg/3 mL, 0.083%, nebulizer solution Inhale 3 mL by mouth 4 times a day as needed for Wheezing. ??? wntrlnw-lpvqzmeqxwswi-vnvtwodd (EXCEDRIN MIGRAINE) 250-250-65 MG tablet Take 1 [...] MG OR CAPS 1 capsule daily ??? lisinopril (AKA ZESTRIL) 40 MG tablet Take 1 Tab by mouth daily. 1 daily ??? omeprazole [...] TABS 2 tablets daily in cold season Allergies: Amoxicillin; Neomycin; and Penicillins Occupational History:worked current position for 15 yrs Environmental History:none Activity:minimal Family History: PCKD, breast cancer Social History: Tobacco Use:no Alcohol use:no OBJECTIVE: There were no vitals taken for this visit. 47 yr female appears well, is in no acute or apparent distress. She is alert & oriented x three, pleasant and cooperative. Physical Exam: Inspection -- No deformities, swelling, erythema or ecchymoses. Muscle contours are normal. Palpation -- No tenderness over fingers or wrist. No tenderness over carpal tunnel. ROM -- Full ROM of wrist in flexion, extension, radial and ulnar deviation. Full ROM of fingers. Strength -- Full strength of wrist, full sales analytics manager and pinch Sensation -- Sensation intact to light touch over arms, wrist and all fingers Special Tests -- Negative tinel's, negative phalens ASSESSMENT: Overuse flexor tendon injury, right wrist Work Related Return to work with restrictions from today until seen in follow-up. Restrictions: Restrict typing to 50 minute intervals with 10 minute break in-between. Up to 8 hours per day. Must wear wrist splint while typing, mousing. Needs custom fit brace so unable to type/mouse until this ifmade. TREATMENT: Home Treatment: Heat 4 times per day Stretching Exercises 4 times per day Referral: Hand therapy Ergonomic consult- consider joystick mouse Follow Up: 2 weeks Discussion: Symptoms have been ongoing for several months so patient would benefit from hand therapyat this point. Additionally, she needs to get custom wrist brace made. I performed the malhotra elements of history and exam, and agree with resident's findings and plan of care as discussed with Dr.Christina Schuster. Abou t45 minutes spent with the patient with more than 25 minutes used on education, counseling and discussion of workability and treatment / follow-up plan whichincludes disability management. Melva Estevez MD - 09/01/2012 12:00 AM CDT documented in this encounter Nursing Notes 09/01/2012 10:40 AM CDT >> Rosy Cotto CMA Sarah September 01, 2012 10:37 AM Pt reports she was referred by Albaro. She has right wrist pain from repetitive motion at work. Pt has not seen anyone for this injury. Rosy Cotto CMA 09/01/2012, 10:36 AM documented in this encounter Plan of Treatment Scheduled Referrals Name Type Priority Associated Diagnoses [facility] Referral Routine Or dered: 09/01/2012 documented as of this encounter Visit Diagnoses Diagnosis Overuse injury - Primary Unspecified site of sprain and strain Wrist pain Pain in joint, forearm documented in this encounter Care Teams Rn Teacher Relationship Specialty Start Date End Date Tiffany Gonzalez APRN, DNP PCP - General 01/16/00 02/03/16 [address] [id number] documented as of this encounter
--- OUTSIDE RECORDS SUMMARY | 2021-12-28 14:13 | XMS_ITS | Encounter Summary ---
:1965 Author Organization [facility] Address [address] [place] [address] Care Team Providers Name Role Phone Tiffany Gonzalez APRN, DNP Primary Care Provider Reason for Visit Reason Onset Date Comments Stv 03/31/2012 Encounter Details Date Type Department Care Team Description 03/31/2012 Office Visit [facility] Tiffany Gonzalez Anemia (Primary Dx) [address] [place] [address] [address] [facility] [phone] [place] [address] (Wo rk) Social History Tobacco Use Types [...] documented as of this encounter Progress Notes Tiffany Gonzalez APRN, DNP - 03/31/2012 2:17 PM CST Jasosn Stephanie Norman was called for a scheduled telephone visit regarding: latest hgb which is low. HGB (g/dl) Date Value 03/14/2012 11.3* Normal: 12-17 She reports menses are not heavy-3 to 4 days of bleeding changes pad every 4 hrs or more. EGD done for heartburn 2009. No colonoscopy done previous. Iron profile and ferritin within normal limits. Assessment & Plan Mild anemia Consulted with . CBC with diff, reticulocyte count, b12. Further plan pending those results Time spent on the phone with the patient: 10 minutes. Tiffany Gonzalez NP ANCE LEARNING PROGRAM COORDINATOR documented in this encounter Plan of Treatment Not on filedocumented as of this encounter Results VIT B12 & FOLATE (04/07/2012 3:28 PM DISTANCE LEARNING PROGRAM COORDINATOR) athologist Signature Vitamin B12 580 239 - 931 [facility] pg/ml Folate >20.0 >3.0 ng/ml [facility] Specimen Anatomical Collection Method Collection Time Receive d Time (Source) Location / / Volume Laterality 04/07/2012 3:28 PM 2 3:36 DISTANCE LEARNING PROGRAM COORDINATOR PM DISTANCE LEARNING PROGRAM COORDINATOR Tiffany Gonzalez APRN, DNP LAB_1 Performing Organization Address City/[facility] Phon e Number [facility] [phone] [address] RETIC, AUTOMATED (04/07/2012 3:28 PM DISTANCE LEARNING PROGRAM COORDINATOR) athologist Signature Retic, 1.3 0.6 - 1.9 [facility] Automated % Retic Absolute 0.05 0.03 - [facility] 0.05 M/ul Specimen Anatomical Collection Method Collection Time Receive d Time (Source) Location / / Volume Laterality 04/07/2012 3:28 PM 2 3:36 DISTANCE LEARNING PROGRAM COORDINATOR PM DISTANCE LEARNING PROGRAM COORDINATOR Tiffany Gonzalez APRN, DNP LAB_1 Performing Organization Address [facility] Phon e Number [facility] [phone] [phone] (ABNORMAL) HEMOGRAM/PLTS/DIFF (04/07/2012 3:28 PM DISTANCE LEARNING PROGRAM COORDINATOR) [facility] Method Time Signature WBC 7.0 4.0 - [facility] 11.0 k/ul RBC 3.88 (L) 4.0 - 5.2 [facility] M/ul Hemoglobin 11.9 (L) 12.0 - [facility] 16.0 g/dl HCT 36.2 36.0 - [facility] 46.0 % MCV 93.3 80 - 100 [facility] fl MCH 30.7 26 - 34 [facility] pg MCHC 32.9 32 - 36 [facility] g/dl RDW 13.1 11.5 - [facility] 14.5 % Platelets 338 150 - 450 [facility] k/ul PMN/Band 64 43 - 72 % [facility] Lymph 26 17 - 43 % [facility] Trimble 7 4 - 12 % [facility] Eos 2 0 - 8 % [facility] Baso 1 0 - 1 % [facility] Neutrophil 4.5 1.8 - 7.7 [facility] Absolute k/ul Lymph Absolute 1.8 1.0 - 4.8 [facility] k/ul Trimble Absolute 0.5 0.1 - 0.7 [facility] k/ul Eos Absolute 0.1 0.0 - 0.5 [facility] k/ul Baso Absolute 0.0 0.0 - 0.2 [facility] k/ul Immature Gran 0 0 % [facility] Imm Gran 0.0 0 k/ul [facility] Absolute Specimen Anatomical Collection Method Collection Time Receive d Time (Source) Location / / Volume Laterality 04/07/2012 3:28 PM 2 3:36 DISTANCE LEARNING PROGRAM COORDINATOR PM DISTANCE LEARNING PROGRAM COORDINATOR Tifafny Gonzalez APRN, DNP LAB_1 Performing Organization Address City/State/[facility] Code Phon e Number [facility] [phone] [facility] [address] [address] documented in this encounter Visit Diagnoses Diagnosis Anemia - Primary Anemia, unspecified documented in this encounter Care Teams [place] Operator Relationship Specialty Start Date End Date Tiffany Gonzalez APRN, DNP PCP - General 01/16/00 02/03/16 [place] [id number] documented as of this encounter
--- OUTSIDE RECORDS SUMMARY | 2021-12-28 14:13 | XMS_ITS | Encounter Summary ---
:1965 Author Organization [facility] Address [address] [place] [address] Care Team Providers Name Role Phone Tiffany Gonzalez APRN, DNP Primary Care Provider [phone] Encounter Details Date Type Department Care Team Description 09/27/2012 Office Visit [facility] Melva Estevez MD Ot her tenosynovitis of [address] [facility] Lindsey Rodriguez OTR/L [address] [place] [address] hand and wrist (Primary [address] Dx) [place] [address] Social History Tobacco Use Types [...] as of this encounter Progress Notes Lindsey Rodriguez OTR/L - 09/27/2012 2:02 PM CDT HAND OCCUPATIONAL THERAPY DAILY NOTE 09/27/2012 Patient Name: Stephanie Norman [id number] Payor: Plan: SELF INSURED [id number] Product Type: Commercial Diagnosis: tendonitis ICD-9-code: 727.05 [...] plans to return possibly tomorrow. VISIT NUMBER: 6 Total # of visits approved: W/C 0 HP visits used prior to Eval PAIN: Intensity Level: Current 2-3/10 in wrist with movement SUBJECTIVE Pt reports pain in the arms has not changed. 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 She is on a second course of antibiotics. She has been doing her stretches, has continued without resistance since the pneumonia.. OBJECTIVE Mild tension in the extensor muscles TREATMENT Physical Agent Modalities: Light Touch: intact Physical Agent Modalities: Light Touch: intact Combined electrical stimulation and ultrasound: Pulsed, 2 mHz, 1.0 w/cm2, 6 intensity, 2 minutes of set up time, 8 minutes of treatment, location: Volar forearm, for purpose of tissue relaxation. Treatment number: 5 Therapeutic Exercises: 15 minutes, Tendon Glides. 10 reps instructed and performed; patient was alsoinstructed to complete exercises 3 times/day. and Passive range of motion of forearm flexor muscles RESPONSE TO TREATMENT: likes the ultrasound and feels this is helpful SPECIALIZED SKILL OF THERAPIST REQUIRED FOR: modalities, education, modification/progression of HEP ASSESSMENT At risk for injury : Further Cumulative Trauma Pain: needs improvement Range of Motion needs improvement Strength : needs improvement Functional limitations PLAN FOR NEXT TREATMENT Ultrasound, Active ROM, Passive ROM and resume resistance when feeling better MINUTES SEEN: 25 Treatment Charges: Physical Agent Modalities: Ultrasound: Quantity: 1 Treatment: Manual therapy Quantity: 1 NIMISHA York/Michael,CHT documented in this encounter Plan of Treatment Not on filedocumented as of this encounter Visit Diagnoses Diagnosis Other tenosynovitis of hand and wrist - Primary documented in this encounter Care Teams Chemical Reclamation Equipment Operator Relationship Specialty Start Date End Date Tiffany Gonzalez APRN, DNP PCP - General 01/16/00 02/03/16 [address] [place] [id number] documented as of this encounter
--- OUTSIDE RECORDS SUMMARY | 2021-12-28 14:13 | XMS_ITS | Encounter Summary ---
:1965 Author Organization [facility] Address [address] [place] [address] Care Team Providers Name Role Phone Tiffany Gonzalez APRN, DNP Primary Care Provider Reason for Visit Reason Onset Date Comments Stv Stv 04/27/2012 Encounter Details Date Type Department Care Team Description 04/22/2012 Office Visit [facility] Lula Cloud, Genetic counseling and testi nate (Primary Dx); [address] [facility] [place] Family history of breast cancer [address] [place], [place] [address] [id number] [phone] [place] [address] Social History Tobacco Use Types Packs/Day Years Used Date Smoking Tobacco: Former Cigarettes 0.5 Quit : 02/23/2011 Smokeless Tobacco: Never Comments: Restarted 12/2005; prior to janice t stopped for 8 months Alcohol Use Standard Drinks/Week Comments Yes 0.8 (1 standard drink = 0.6 oz pure alco hol) rarely Sex Assigned at Date Recorded Not on file documented as of this encounter Progress Notes Lula Cloud MD - 04/27/2012 7:50 PM CST Jasson Norman was called for a scheduled telephone visit regarding: DNA test results for BRCA1/BRCA2. Please refer to genetic consultation regarding her family history, medical history and plan/indications for DNA testing Assessment & Plan Negative mutation testing for BRCA1/BRCA2 No mutation was identified of either BRCA1 or BRCA2. She has a family history of breast cancer on both sides of her family. We discussed that although this eliminates the likelihood of a mutation of these two genes, it does not eliminate a hereditary basis for the cancer in her family. It is thought that about 85-90 percent of hereditary breast/ovarian cancer is due to mutations of BRCA1 and BRCA2. No one who has had cancer in her either her mother's family or her father's family has been tested with DNA testing. Therefore there are some limitations to her negative test result. She should seek medical attention if she identifies any breast lesion or notices any persistent, unusual symptoms. Time spent on the phone with the patient: 8 minutes. Lula Cloud MD DISPLAY MAKER documented in this encounter Plan of Treatment Not on filedocumented as of this encounter Visit Diagnoses Diagnosis Genetic counseling and testing - Primary Genetic counseling Family history of breast cancer Family history of malignant neoplasm of breast documented in this encounter Care Teams Mine Wedge Sawyer Relationship Specialty Start Date End Date Tiffany Gonzalez APRN, GAIL PCP - General 01/16/00 02/03/16 [address] [place] [id number] documented as of this encounter
--- OUTSIDE RECORDS SUMMARY | 2021-12-28 14:13 | XMS_ITS | Encounter Summary ---
:1965 Author [facility] Address [address] [place] [address] Care Team Providers Name Role Phone Tiffany Gonzalez APRN, DNP Primary Care Provider Reason for Visit Reason Onset Date Comments RESULTS, TEST 04/21/2012 Encounter Details Date Type Department Care Team Description 04/21/2012 Telephone [facility] Lula Cloud MD RESULTS, TEST [address] [place], [place] [address] [id number] [phone] [place] [address] Social History Tobacco Use Types Packs/Day Years Used Date Smoking Tobacco: Former Cigarettes 0.5 Quit : 02/23/2011 Smokeless Tobacco: Never Comments: Restarted 12/2005; prior to janice t stopped for 8 months Alcohol Use Standard Drinks/Week Comments Yes 0.8 (1 standard drink = 0.6 oz pure alco hol) rarely Sex Assigned at Date Recorded Not on file documented as of this encounter Nursing Notes Lula Cloud MD - 04/22/2012 12:50 PM CST Just spoke to patient regarding test results. Put in as a scheduled telephone visit for today. DNA testing was negative for mutation of either BRCA1 or BRCA2. Will send her a letter with copy of test report Lula Cloud MD F FINANCIAL OFFICER Barby White RN - 04/21/2012 3:37 PM CST to advise if STV is needed. See e-mail encounter 04/08/12 Barby Guaman LPN F FINANCIAL OFFICER Lavonne Boss - 04/21/2012 2:57 PM CST She is looking for genetic test results. Call her today at [phone] until 5 Tomorrow at [phone] Lavonne Boss F FINANCIAL OFFICER documented in this encounter Plan of Treatment Not on filedocumented as of this encounter Visit Diagnoses Not on filedocumented in this encounter Care Teams Seed Specialist Relationship Specialty Start Date End Date Tiffany Gonzalez APRN, DNP PCP - General 01/16/00 02/03/16 [address] [place] [id number] documented as of this encounter
--- OUTSIDE RECORDS SUMMARY | 2021-12-28 14:13 | XMS_ITS | Encounter Summary ---
:1965 Author Organization [facility] Address [address] [place] [address] Care Team Providers Name Role Phone Haylee Alanis APRN, CNP Primary Care Provider [phone] Encounter Details Date Type Department Care Team Description 10/26/2011 Correspondence None Inactive, Provider PAP EQU IPMENT PICK-UP TICKET Social History Tobacco Use Types Packs/Day Years Used Date Smoking Tobacco: Former Cigarettes 0.5 Quit : 02/23/2011 Smokeless Tobacco: Never Comments: Restarted 12/2005; prior to janice t stopped for 8 months Alcohol Use Standard Drinks/Week Comments Yes 0.8 (1 standard drink = 0.6 oz pure alco hol) rarely Sex Assigned at Date Recorded Not on file documented as of this encounter Progress Notes Inactive, Provider - 10/26/2011 12:00 AM CDT documented in this encounter Plan of Treatment Not on filedocumented as of this encounter Visit Diagnoses Not on filedocumented in this encounter Care Teams Territory Sales Manager Relationship Specialty Start Date End Date Haylee Alanis APRN, ARTIFICIAL CHERRY MAKER PCP - General Nurse Practitioner 02/04/[address] [place] [address] documented as of this encounter
--- OUTSIDE RECORDS SUMMARY | 2021-12-28 14:13 | XMS_ITS | Encounter Summary ---
:1965 Author Organization [facility] Address [address] [place] [address] Care Team Providers Name Role Phone Tiffany Gonzalez APRN, GAIL Primary Care Provider Encounter Details Date Type Department Care Team Description 03/08/2012 Orders Only HP Claims MD Eusebio Security Contact Bill [address] [place] [address] Mailstop [id number] [phone] (Wo rk) Social History Tobacco Use Types [...] on filedocumented in this encounter Care Teams Rn Plastics Relationship Specialty Start Date End Date Tiffany Gonzalez APRN, GAIL PCP - General 01/16/00 02/03/16 [address] [place] [id number] documented as of this encounter
--- OUTSIDE RECORDS SUMMARY | 2021-12-28 14:13 | XMS_ITS | Encounter Summary ---
:1965 Author Organization [facility] Address [address] [place] [address] Care Team Providers Name Role Phone Tiffany Gonzalez APRN, DNP Primary Care Provider [phone] Encounter Details Date Type Department Care Team Description 09/20/2012 Office Visit [facility] Melva Estevez MD Ot her tenosynovitis of [address] Hand Therapy Lindsey Rodriguez OTR/L [address] [place] [address] hand and wrist (Primary [address] Dx) [place] [address] Social History Tobacco Use Types [...] encounter Progress Notes Lindsey Rodriguez OTR/L - 09/20/2012 1:34 PM CDT HAND OCCUPATIONAL THERAPY DAILY NOTE 09/20/2012 Patient Name: Stephanie Norman [id number] Payor: Plan: SELF INSURED [id number] Product Type: Commercial Diagnosis: tendonitis ICD-9-code: 727.05 [...] use injury. 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 VISIT NUMBER: 4 Total # of visits approved: W/C 0 HP visits used prior to Eval PAIN: Intensity Level: Current 2/10 in wrist with movement SUBJECTIVE Pt reports pain in the arms is 2-3/10. She is currently being treated for pneumonia. She has been doing her stretches, not resistance. OBJECTIVE Mild tension in the extensor muscles TREATMENT Physical Agent Modalities: Light Touch: intact Ultrasound: Pulsed, 3 MHz, 1.0 intensity, 2 minutes of set up time, 8 minutes of treatment, location: flexor muscle wad for purpose of promote healing. and Treatment number: 4 Therapeutic Exercises: 15 minutes, Tendon Glides. 10 reps instructed and performed; patient was alsoinstructed to complete exercises 3 times/day. and Passive range of motion of forearm flexor muscles RESPONSE TO TREATMENT: ultrasound feels good on wrist per patient report SPECIALIZED SKILL OF THERAPIST REQUIRED FOR: modalities, education, modification/progression of HEP ASSESSMENT At risk for injury : Further Cumulative Trauma Pain: needs improvement Range of Motion needs improvement Strength : needs improvement Functional limitations PLAN FOR NEXT TREATMENT Ultrasound, Active ROM, Passive ROM and instruction in wrist isometrics, resume resistance if feeling better MINUTES SEEN: 25 Treatment Charges: Physical Agent Modalities: Ultrasound: Quantity: 1 Treatment: Therapeutic Exercises: Quantity: 1 NIMISHA York/Michael,CHT documented in this encounter Plan of Treatment Not on filedocumented as of this encounter Visit Diagnoses Diagnosis Other tenosynovitis of hand and wrist - Primary documented in this encounter Care Teams Machine Setter And Repairer Relationship Specialty Start Date End Date Tiffany Gonzalez APRN, DNP PCP - General 01/16/00 02/03/16 [address] [place] [id number] documented as of this encounter
--- OUTSIDE RECORDS SUMMARY | 2021-12-28 14:13 | XMS_ITS | Encounter Summary ---
:1965 Author Organization [facility] Address [address] [place] [address] Care Team Providers Name Role Phone Tiffany Gonzalez APRN, DNP Primary Care Provider Reason for Visit Reason Comments Follow-up, NOS sleep apnea Encounter Details Date Type Department Care Team Description 01/14/2012 Office Visit [facility] Darryn Fletcher O, Obst ructive sleep apnea (adult) (pediatric) (Primary Dx); [facility] Obesity; [address] [place] [address] [place], [place] [phone] [address] Social History Tobacco Use Types Packs/Day Years [...] Sign Reading Time Taken Comments Blood Pressure 137/92 01/14/2012 1:48 PM CDT Pulse 74 01/14/2012 1:48 PM CDT Temperature - - Respiratory Rate - - Oxygen Saturation - - Inhaled Oxygen Concentration - - Weight 110 kg (242 lb 9.6 oz) 01/14/2012 1:48 PM CDT Height 170.2 cm (5' 7) 01/14/2012 1:48 PM CDT Body Mass Index 38 01/14/2012 1:48 PM CDT documented in this encounter Patient Instructions Patient InstructionsDarryn Fletcher MD - 01/14/2012 2:04 PM CDT Ms. Norman will continue with CPAP at a level of 8 cm H2O as is. She will discuss weight loss issues with her primary physician. She will not drive or engage in potentially dangerous activities if feeling sleepy. She will continue to follow with her other care providers as scheduled. She will also inform her care providers/surgeons about her sleep apnea, and if having a procedure/surgery requiring anesthesia, sedation or a hospital stay, she will bring her CPAP to the hospital and use it during the procedure/hospital stay. She will have a follow up with me in 6 months, or earlier if needed. Al Fletcher MD documented in this encounter Progress Notes Darryn Fletcher MD - 01/14/2012 10:16 AM CDT PULMONARY/SLEEP OUTPATIENT FOLLOW UP Stephanie Norman was seen in our clinic for a follow up for: 1. Obstructive sleep apnea (adult) (pediatric) 2. Obesity 3. Weight gain TREMAINE DETAIL: PSG; 03/30/11 RDI: 35.6, AHI: 29.1 REM RDI: 100 O2: 79 % Snoring reported as: moderate;continuous Wt around the time of Baseline PS lbs. BMI: 35.55 CPAP titration on: Same night 03/30/11 Pressure 8 cm H2O. Wt around the time of last CPAP titration: 227 lbs. BMI: 35.55 She was last seen on: 10/15/11 After her last visit her mask was changed due to leakage. Since then she has been using her CPAP, at 8 cm H2O pressure. She finds the pressure to be OK. Her mask is comfortable and is not leaking. Her current sleep schedule is as follows: Time to go to bed: 22:00. Time it takes to fall asleep: 15 min. Wakes up one time a night. Reason for awakenings: To go to the Bathroom. Can go back to sleep again in 10 minutes. Wakes up in the morning at 6:30 Upon awakening she feels more rested with the CPAP. As the day goes on she feels more energy compared to without CPAP. She does not take naps. She does not fall asleep while inactive such as while watching TV or reading a book. She does not fall asleep inappropriately while talking to other people or driving. Overall she finds the CPAP has been helpful to improve her sleep and daytime energy levels. Since her last visit there has been no significant change in her overall health. REVIEW OF SYSTEMS: Negative for recent head [...] terms of depression or anxiety she feels OK. The patients weight around the time of the sleep study was 227 lbs. Current wt is 242 lbs. PAST MEDICAL HISTORY: Past Medical History [...] &/ polypect 03/31/04 ??? 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 acetaminophen (TYLENOL EXTRA STRENGTH) 500 MG tablet Take 500-1,000 mg by mouth every 4 hours asneeded. ??? ALBUterol 2.5 mg/3 mL, 0.083%, nebulizer solution Inhale 3 mL by mouth 4 times a day as needed for Wheezing. ??? sujdrcl-ognvhjwmngguw-rztowond (EXCEDRIN MIGRAINE) 250-250-65 MG tablet Take 1 [...] tablets daily in cold season OBJECTIVE: BP 137/92 Pulse 74 Ht 5' 7 (1.702 m) Wt 242 lb 9.6 oz (110.043 kg) BMI 38.00 kg/m2 Today a physical examination was not done. 1. Obstructive sleep apnea (adult) (pediatric) 2. Obesity 3. Weight gain ASSESSMENT: The patient is using her CPAP at 8 cm H2O and is happy with the results so far. I discussed the pathophysiology of sleep apnea with the patient including TREMAINE being a risk factor for Cardiovascular/Cerebrovascular disease,and recommended continuing with using the CPAP which she agreed to do. Weight gain is of concern. I also discussed with the patient that her weight may be a contributing factor to her sleep disordered breathing, and she may want to discuss weight loss issues with her primary physician. Agrees. PLAN: After a detailed discussion with the patient, the following plan was agreed upon: Patient Instructions Ms. Norman will continue with CPAP at a level of 8 cm H2O as is. She will discuss weight loss issues with her primary physician. She will not drive or engage in potentially dangerous activities if feeling sleepy. She will continue to follow with her other care providers as scheduled. She will also inform her care providers/surgeons about her sleep apnea, and if having a procedure/surgery requiring anesthesia, sedation or a hospital stay, she will bring her CPAP to the hospital and use it during the procedure/hospital stay. She will have a follow up with me in 6 months, or earlier if needed. Al Fletcher MD I discussed all of the above with the patient, who was agreeable with the plan. Total visit time was 15 minutes, more than half spent counseling and/or coordinating care. Al Fletcher MD CC: Lisa Ludwig CNP documented in this encounter Plan of Treatment Not on filedocumented as of this encounter Visit Diagnoses Diagnosis Obstructive sleep apnea (adult) (pediatr ic) - Primary Obesity ([facility]) Obesity, unspecified Weight gain Abnormal weight gain documented in this encounter Care Teams Green Coffee Blender Relationship Specialty Start Date End Date Tiffany Gonzalez, MONKEY KEEPER, DNP PCP - General 01/16/00 02/03/16 [id number] [place] [id number] documented as of this encounter
--- OUTSIDE RECORDS SUMMARY | 2021-12-28 14:13 | XMS_ITS | Encounter Summary ---
:1965 Author Organization [employer] Address [address] [place] [address] Care Team Providers Name Role Phone Tiffany Gonzalez APRN, DNP Primary Care Provider Encounter Details Date Type Department Care Team Description 09/22/2012 Office Visit [facility] Melva Estevez MD Ot her tenosynovitis of 401 [facility] Lindsey Rodriguez OTR/L [address] [place] [address] hand and wrist (Primary [address] Dx) [place] [address] Social History Tobacco Use Types [...] encounter Progress Notes Lindsey Rodriguez OTR/L - 09/22/2012 12:02 PM CDT HAND OCCUPATIONAL THERAPY DAILY NOTE 09/22/2012 Patient Name: Stephanie Norman [id number] Payor: Plan: SELF INSURED [id number] Product Type: Commercial Diagnosis: tendonitis ICD-9-code: 727.05 [...] plans to return possibly tomorrow. VISIT NUMBER: 5 Total # of visits approved: W/C 0 HP visits used prior to Eval PAIN: Intensity Level: Current 2/10 in wrist with movement SUBJECTIVE Pt reports pain in the arms is 2/10. She is not working, although she is being treated for pneumonia. She has been doing her stretches, has [...] for purpose of tissue relaxation. Treatment number: 4 Therapeutic Exercises: 15 minutes, [...] Primary documented in this encounter Care Teams Facilities Custodian Relationship Specialty Start Date End Date Tiffany Gonzalez APRN, DNP PCP - General 01/16/00 02/03/16 [address] [place] [id number] documented as of this encounter
--- OUTSIDE RECORDS SUMMARY | 2021-12-28 14:13 | XMS_ITS | Encounter Summary ---
:1965 Author Organization [employer] Address [address] [place] [address] Care Team Providers Name Role Phone Tiffany Gonzalez APRN, DNP Primary Care Provider [phone] Reason for Visit Reason Comments FOLLOW-UP,WORK [facility] Encounter Details Date Type Department Care Team Description 10/27/[address] [facility] Occupational Marina Clark er tenosynovitis of and Environmental LMD hand and wrist Medicine [address] [place] [address] (Primary Dx) [address] [place] [id number] [phone] Social History Tobacco Use Types Packs/Day Years [...] Sign Reading Time Taken Comments Blood Pressure 133/86 10/27/2012 1:03 PM CDT Pulse 63 10/27/2012 1:03 PM CDT Temperature - - Respiratory Rate - - Oxygen Saturation - - Inhaled Oxygen Concentration - - Weight - - Height - - Body Mass Index - - documented in this encounter Progress Notes Marina Clark MD - 10/27/2012 1:32 PM CDT Employee: Stephanie Norman, 47 yr female : 1965 DOI: 07/28/2012 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 Patient has no pain and has been able to work without pain. She does intermittent stretching. Cancelled last 2 hand therapy sessions as her pain has resolved. Feels she is back to baseline and can work without restrictions. O: BP 133/86 Pulse 63 GEN: Alert & oriented x three, pleasant [...] Strength -- Full strength of wrist, full certified medicine aide and pinch. Sensation -- Sensation intact to light touch over arms, wrist and all fingers Special Tests -- Negative tinel's, negative phalens, negative rita. A: Overuse flexor tendon injury, right wrist - work-related - resolved P: Return to work without restrictions. Patient should still try to stretch as needed. If employer will not allow this or she develops pain again, then she may return. Follow-up only as needed. Based on reasonable medical probability, this patient is felt to have reached maximum medical improvement on 10/27/2012 with 0% PPD. Patient was seen and evaluated with Dr. Clark. Pari Dalal MD Occupational and Environmental Medicine Resident I performed the malhotra elements of history and exam, and agree with resident's findings and plan of care as discussed with Dr. Dalal. We would be happy to see this patient back for this work-related injury as needed if her symptoms return upon resuming her regular duties without restrictions. However I do not anticipate that this will be necessary. Marina Clark MD, MPH 10/27/2012 documented in this encounter Nursing Notes 10/27/2012 1:00 PM CDT >> Rosy Cotto CMA [facility] Oct 27, 2012 1:05 PM Pt reports she cancelled her last 2 physical therapy apts, as she believes she has come to the end of needing services. Pt is not taking anything for pain, pt is not using ice or heat for pain. She is continuing her exercise at home and work. Pain scale 0/10. Rosy Cotto CMA 10/27/2012, 1:04 PM documented in this encounter Plan of Treatment Not on filedocumented as of this encounter Visit Diagnoses Diagnosis Other tenosynovitis of hand and wrist - Primary documented in this encounter Care Teams Cost Estimating Manager Relationship Specialty Start Date End Date Tiffany Gonzalez APRN, DNP PCP - General 01/16/00 02/03/16 [address] [place] [id number] documented as of this encounter
--- OUTSIDE RECORDS SUMMARY | 2021-12-28 14:14 | XMS_ITS | Encounter Summary ---
:1965 Author Organization [employer] Address [address] [place] [address] Care Team Providers Name Role Phone Tiffany Gonzalez APRN, DNP Primary Care Provider Reason for Visit Reason Comments Follow-up, NOS Encounter Details Date Type Department Care Team Description 05/14/2011 Office Visit Specialty Center Darryn Fletcher, Obst ructive sleep apnea (adult) (pediatric) (Primary Dx); [facility] [address] [place] [address] [place], [place] [phone] Social History Tobacco Use Types Packs/Day Years [...] Sign Reading Time Taken Comments Blood Pressure 122/78 05/14/2011 8:41 AM PRODUCTION TECHNICIAN Pulse - - Temperature - - Respiratory Rate - - Oxygen Saturation - - Inhaled Oxygen Concentration - - Weight 101.6 kg (224 lb) 05/14/2011 8:41 AM PRODUCTION TECHNICIAN Height - - Body Mass Index 35.08 03/30/2011 7:35 PM PRODUCTION TECHNICIAN documented in this encounter Patient Instructions Patient InstructionsNguyễnrDarryn - 05/14/2011 9:04 AM CST Ms. Norman will continue with CPAP at a level of 8 cm H2O as is. She will not drive or engage in potentially dangerous activities if feeling sleepy. She will discuss weight loss issues with her primary physician. She will continue to follow with her [...] or earlier if needed. Al Fletcher MD UCTION TECHNICIAN documented in this encounter Progress Notes Darryn Fletcher - 05/14/2011 7:24 AM CST Stephanie Norman was seen in our clinic for a follow up for: DIAGNOSES: 1. Sleep apnea (780.57B) 2. Snoring (786.09AN) 3. Fatigue (780.79B) 4. Obesity (278.00L) She was last seen in my clinic on 03/19/11. After her last visit she had a blood test on 03/19/11 for: FT4: 1.0 TSH: 2.527 She then had a sleep study on 03/30/11 The study revealed the presence of: Estimated Body mass index is 35.55 kg/(m^2) as calculated from the following: Height as of this encounter: 5' 7(1.702 m). Weight as of this encounter: 227 lb(102.967 kg). Total [place] Score: (not recorded) Neck Circumference (in inches): 14.5 Baseline: 1. This study was performed in order to evaluate for TREMAINE. 2. Hypopnea Definition: Rule VIII.4.A 2. Due to the presence of respiratory events, this study was done in two parts (baseline, followed by titration). The total sleep time was: 202 minutes, which is adequate. The sleep latency was: 47.8 minutes, which is prolonged. The REM sleep latency was: 146 minutes. Sleep efficiency was: 78.3 % which is decreased. The sleep architecture was disrupted due to respiratory events and CPAP titration. 3. Snoring reported as: moderate;continuous. 4. Respiratory Events: Obstructive Apneas: 27 , Central Apneas: 3 , Mixed Apneas: 0 , Hypopneas: 68 , RERAs: 22 , were noted for an RDI of: 35.6 and an AHI of: 29.1 . The REM RDI was: 100 . The lowest O2 saturation was: 79 %. Titration 1. During the second part of the study, CPAP titration was done from 6 to 8 cm H2O. The patient responded well to the pressure of 8 cm H2O. Supine REM, and REM rebound was observed at this pressure. Other 1. EEG: The background activity was 8-9 Hz. No epileptiform activity was noted during this recording. 2. EMG: No periodic limb movements were noted on the baseline portion of the study and the PLM indexwas: 0 . During the titration portion of the study the PLM index was: 0 . 3. EKG: The average heart rate was about 54 bpm. No significant cardiac arrhythmias were noted. Diagnostic Impression: 1. The patient has TREMAINE, and responded well to a CPAP level of 8 cm H2O. She was started on CPAP at 8cm H2O on 03/31/11 per sleep lab protocol. . She reports that she has been using the CPAP at 8 cm H2O. She finds the pressure to be OK. Her mask is comfortable. It is not leaking. Overall she finds that CPAP has improved her sleep quality, and day time energy levels significantly. She is very happy with the outcome. REVIEW OF SYSTEMS: Today, detailed review of systems was not done, except as described above. Since her last visit there has been no significant change in her overall health. Past Medical History Diagnosis Date ??? HYPERTENSION NOS 06/01/2003 ??? VARICELLA UNCOMPLICATED ??? Reflux esophagitis ??? POLYCYSTIC KIDNEY, UNSPEC ??? ALLERGIC RHINITIS NOS ??? ASTHMA, UNSPECIFIED ??? Hypercholesterolemia with hyperglyceridemia ??? Tobacco use disorder ??? PMDD (premenstrual dysphoric disorder) on Celexa ??? ENDOMETRIAL POLYP ??? 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 Snoring Patient Active Problem List Diagnoses Code ??? 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 REFLUX ESOPHAGITIS 530.11 ??? POLYCYSTIC KIDNEY, UNSPEC 753.12 ??? HYPERTENSION NOS 401.9 ??? ALLERGIC RHINITIS NOS 477.9 ??? ASTHMA, UNSPECIFIED 493.90 ??? Hypercholesterolemia with Hyperglyceridemia 272.2BP ??? Tobacco Use Disorder 305.1 ??? PMDD (Premenstrual Dysphoric Disorder) 625.4AA ??? Obstructive sleep apnea (adult) (pediatric) 327.23 Past Surgical History Procedure Date ? ? Hysteroscpy surg; w/bx &/ polypect 03/31/04 ??? Appendectomy 04-07-2010 PHYSICAL EXAMINATION: Today, a physical examination was not done. 1. Obstructive sleep apnea (adult) (pediatric) (327.23) 2. Obesity (278.00L) ASSESSMENT: The patient has TREMAINE. I showed the study to the patient, and discussed the results in detail. I discussed the pathophysiology of sleep apnea with the patient including TREMAINE being a risk factor for Cardiovascular/Cerebrovascular disease,and recommended continuing with using the CPAP which she agreed to do. She is very happy with the outcome so far. I also discussed with the patient that her weight may be a contributing factor to her sleep disordered breathing, and she may want to discuss weight loss issues with her primary physician. PLAN: After detailed discussion with Stephanie Norman, the following plan was agreed upon: Patient Instructions Ms. Norman will continue with CPAP at a level of 8 cm H2O as is. She will not drive or engage in potentially dangerous activities if feeling sleepy. She will discuss weight loss issues with her primary physician. She will continue to follow with her [...] I discussed all of the above with Stephanie Norman, who was agreeable with the plan. This was a 15-minute sleep study result review follow-up visit. During this visit, her medication list was not updated, vital signs were not checked, and she was not examined. I spent about 15 minutes with the patient, all of which was spent in discussing the above, and with coordination of care. Al Fletcher MD CC: Lisa Ludwig CNP UCTION TECHNICIAN documented in this encounter Plan of Treatment Scheduled Referrals Name Type Priority Associated Diagnoses Order S chedule SLEEP STUDY REVISIT Referral Routine Obstructive sleep pharmacy affairs assistant ea Ordered: 03/31/2011 (NEURO) [RFT083] (adult) (pediatric) documented as of this encounter Visit Diagnoses Diagnosis Obstructive sleep apnea (adult) (pediatr ic) - Primary Obesity ([facility]) Obesity, unspecified documented in this encounter Care Teams Master Certified Rv Technician Relationship Specialty Start Date End Date Tiffany Gonzalez APRN, DNP PCP - General 01/16/00 02/03/16 [address] [place] [id number] documented as of this encounter
--- OUTSIDE RECORDS SUMMARY | 2021-12-28 14:14 | XMS_ITS | Encounter Summary ---
:1965 Author Organization [employer] Address [address] [place] [address] Care Team Providers Name Role Phone Tiffany Gonzalez APRN, GAIL Primary Care Provider Reason for Visit Reason Comments Refill Encounter Details Date Type Department Care Team Description 12/23/2010 Refill [facility] Tiffany Gonzalez, Refill [address] [place] [address] [address] [facility] [phone] [place], [place] [phone] (Wo rk) Social History Tobacco Use Types Packs/Day Years Used Date Smoking Tobacco: Every Day Cigarettes 0.5 Comments: Restarted 12/2005; prior to janice t stopped for 8 months Alcohol Use Standard Drinks/Week Comments Yes 0.8 (1 standard drink = 0.6 oz pure alco hol) rarely Sex Assigned at Date Recorded Not on file documented as of this encounter Nursing Notes Triny Dorsey - 12/25/2010 11:15 AM CDT LETTER SENT Triny Dorsey MA 12/25/2010 Carmen Fierro RN - 12/24/2010 4:45 PM CDT Patient to be informed needs appointment for 12 hour fasting lab. RN has refilled a 3 month supply to cover patient until seen. Carmen Fierro RN documented in this encounter Plan of Treatment Not on filedocumented as of this encounter Visit Diagnoses Not on filedocumented in this encounter Care Teams Wind Energy Technician Relationship Specialty Start Date End Date Tiffany Gonzalez APRN, DNP PCP - General 01/16/00 02/03/16 [address] [id number] documented as of this encounter
--- OUTSIDE RECORDS SUMMARY | 2021-12-28 14:14 | XMS_ITS | Encounter Summary ---
:1965 Author Organization [facility] Address [address] [place] [address] Care Team Providers Name Role Phone Tiffany Gonzalez APRN, DNP Primary Care Provider Encounter Details Date Type Department Care Team Description 03/31/2011 Correspondence None Inactive, Provider DME INS TRUCTION DELIVERY PAP THERAPY AND SUP PLIES Social History Tobacco Use Types Packs/Day Years [...] Notes Interface, In Chrtscr And Scan - 04/07/2011 12:34 PM STABLE HAND LE HAND documented in this encounter Plan of Treatment Not on filedocumented as of this encounter Visit Diagnoses Not on filedocumented in this encounter Care Teams Malt Liquors Sales Representative Relationship Specialty Start Date End Date Tiffany Gonzalez APRN, GAIL PCP - General 01/16/00 02/03/16 [address] [place] [id number] documented as of this encounter
--- OUTSIDE RECORDS SUMMARY | 2021-12-28 14:14 | XMS_ITS | Encounter Summary ---
:1965 Author Organization [employer] Address [address] [place] [address] Care Team Providers Name Role Phone Tiffany Gonzalez APRN, GAIL Primary Care Provider [phone] Encounter Details Date Type Department Care Team Description 02/04/2011 Imaging [facility] [facility] Radiology Cervicalgia [address] [place] [address] Social History Tobacco Use Types Packs/Day Years Used Date Smoking Tobacco: Every Day Cigarettes 0.5 Smokeless Tobacco: Never Comments: Restarted 12/2005; prior to janice t stopped for 8 months Alcohol Use Standard Drinks/Week Comments Yes 0.8 (1 standard drink = 0.6 oz pure alco hol) rarely Sex Assigned at Date Recorded Not on file documented as of this encounter Progress Notes Lisa Ludwig APRN, CNP - 02/05/2011 7:34 AM CDT Quick Note: Neck X-ray shows some degenerative changes. She will be informed via online patient services of results. ISABEL Patrick documented in this encounter Plan of Treatment Not on filedocumented as of this encounter Procedures Procedure Name Priority Date/Time Associated Diagnosis Comme nts XR CERVICAL SPINE 2 Routine 02/04/2011 2:11 PM Cervicalgia Re sults for this VIEWS CDT procedure are i n the results section. documented in this encounter Results XR C-SPINE AP/LATERAL (02/04/2011 2:11 PM CDT) Anatomical Region Laterality Modality Spine, C-Spine, Neck Computed Radiograph y Specimen (Source) Anatomical Collection Method Collection Time Re ceived Time Location / / Volume Laterality 02/04/2011 2:11 PM CDT Narrative 02/04/2011 4:52 PM CDT XR C-SPINE AP/LAT 2 VWS 02/04/2011, 1411:59 HOURS INDICATION: Bilateral neck pain and head ache. COMPARISON: None. FINDINGS: Alignment of the cervical spin e is within normal limits. No fracture or dislocation. Mild disc heigh t loss at C5-C6 with mild anterior and posterior osteophytes. Procedure Note Lex Hurley - 02/04/2011Formattsilvia sullivan of this note might be different from the original. XR C-SPINE AP/LAT 2 VWS 02/04/2011, 1411:59 HOURS INDICATION: Bilateral neck pain and head ache. COMPARISON: None. FINDINGS: Alignment of the cervical spin e is within normal limits. No fracture or dislocation. Mild disc heigh t loss at C5-C6 with mild anterior and posterior osteophytes. Lisa Ludwig APRN, POLICE ARTIST RAD GD documented in this encounter Visit Diagnoses Diagnosis Cervicalgia documented in this encounter Care Teams Sofa Back Upholsterer Relationship Specialty Start Date End Date Tiffany Gonzalez APRN, DNP PCP - General 01/16/00 02/03/16 [address] [place] [id number] documented as of this encounter
--- OUTSIDE RECORDS SUMMARY | 2021-12-28 14:14 | XMS_ITS | Encounter Summary ---
:1965 Author Organization [facility] Address [address] [place] [address] Care Team Providers Name Role Phone Tiffany Gonzalez APRN, DNP Primary Care Provider [phone] Reason for Visit Reason Comments Mask Fit Encounter Details Date Type Department Care Team Description 04/15/2011 Home Medical Services [facility] Medical [facility] [address] [place], [place] [address] Social History Tobacco Use Types Packs/Day Years Used Date Smoking Tobacco: Former Cigarettes 0.5 Quit : 02/23/2011 Smokeless Tobacco: Never Comments: Restarted 12/2005; prior to janice t stopped for 8 months Alcohol Use Standard Drinks/Week Comments Yes 0.8 (1 standard drink = 0.6 oz pure alco hol) rarely Sex Assigned at Date Recorded Not on file documented as of this encounter Progress Notes Maria Fernanda Simon - 04/15/2011 1:54 PM CST Pt having dry mouth with CPAP. Fitted pt with a Res Med Quattro small full face mask. METER PROVER documented in this encounter Plan of Treatment Not on filedocumented as of this encounter Visit Diagnoses Not on filedocumented in this encounter Care Teams Interventionist Relationship Specialty Start Date End Date Tiffany Gonzalez APRN, GAIL PCP - General 01/16/00 02/03/16 [address], [place] [address] documented as of this encounter
--- OUTSIDE RECORDS SUMMARY | 2021-12-28 14:14 | XMS_ITS | Encounter Summary ---
:1965 Author Organization [facility] Address [address] [place] [address] Care Team Providers Name Role Phone Tiffany Gonzalez APRN, GAIL Primary Care Provider Reason for Visit Reason Comments ANKLE PAIN Tripped on stairs 05/16/11 an d injured left ankle. Complains of pain, bruising and swelling. Has b een applying ice, taking tylenol and elevating since injury. On pain scale pain at its worst is a 10. Encounter Details Date Type Department Care Team Description 05/18/2011 Office Visit [facility] Vivek Gibson, Ankle pain (Primary Dx); [address] [address] [phone] [place], [place] [address] Social History Tobacco Use Types Packs/Day Years [...] Sign Reading Time Taken Comments Blood Pressure 136/90 05/18/2011 10:49 AM ACTUARIAL INTERN Pulse 64 05/18/2011 10:49 AM ACTUARIAL INTERN Temperature - - Respiratory Rate 16 05/18/2011 10:49 AM ACTUARIAL INTERN Oxygen Saturation - - Inhaled Oxygen Concentration - - Weight - - Height - - Body Mass Index - - documented in this encounter Patient Instructions Patient InstructionsVivek Gibson MD - 05/18/2011 11:06 AM CST Take Tylenol as needed for pain. Use crutches for 2-3 days to limit weight bearing on left foot. Continue to use ice/cold lateral left ankle for 2 days. Elevate left foot frequently. Use ankle splint over next 3-4 weeks. Follow up if continued ankle symptoms. ARIAL INTERN documented in this encounter Progress Notes Vivek Gibson MD - 05/18/2011 11:06 AM CST SUBJECTIVE: Stephanie Norman is a 46 yr old female who has left lateral ankle pain and swelling. Two evenings ago she states she was going down two steps and her foot slipped and she twisted her ankle and fell to the ground. She noted pain at that time. She has continued to have pain in the ankle and this increaseswith weightbearing and certain movements. She has been taking Tylenol. No foot pain and no calf or knee pain. OBJECTIVE: BP 136/90 Pulse 64 Resp 16 Left ankle reveals moderate swelling laterally. There is tenderness over the distal fibula and lateral ankle ligaments. Mild tenderness and minimal swelling along the medial malleolus and there is a small area of bruising just inferior to the medial malleolus. Heel and foot and proximal fifth metatarsal and Achilles tendon and calf are all normal. Dorsi and plantar flexion are normal and cause minimal lateral ankle pain. Inversion movement of the ankle causes increased pain laterally. Left ankle x-rays-a calcification was noted medial to the distal end of the fibula. This x-ray was discussed with the radiologist and it was felt that this was probably an accessory ossicle or do to remote trauma. No acute fracture noted. ASSESSMENT: Left ankle injury and probable sprain. PLAN: Crutches were given and I recommended she use these over the next few days to limit weightbearing onthe left ankle. Take Tylenol as needed for pain. Continued to use ice packs or cold packs to the lateral ankle for two more days. She should elevate the left foot frequently. Use the ankle splint over the next 3-4 weeks. Followup if continued symptoms. Vivek Gibson MD ARIAL INTERN documented in this encounter Nursing Notes 05/18/2011 10:40 AM CST >> Nathan Burnett LPN Mon May 18, 2011 12:02 PM Patient fitted for gelcast left ankle. Patient understood and stated the fit felt right. We do not have crutches in her size so [facility] (patient's request to go to [facility]) and informed that she would be stopping there to pick up driver crutches. [facility] notified. Fitting of crutches explained to patient, crutch use explained to patient. Nathan Burnett LPN documented in this encounter Plan of Treatment Not on filedocumented as of this encounter Visit Diagnoses Diagnosis Ankle pain - Primary Pain in joint, ankle and foot Need for DTP vaccine Need for prophylactic vaccination with c ombined [id number] (DTP) vaccine documented in this encounter Care Teams Final Canoe Inspector Relationship Specialty Start Date End Date Tiffany Gonzalez APRN, DNP PCP - General 01/16/00 02/03/16 [id number] [place] [id number] documented as of this encounter
--- OUTSIDE RECORDS SUMMARY | 2021-12-28 14:14 | XMS_ITS | Encounter Summary ---
:1965 Author Organization [facility] Address [address] [place] [address] Care Team Providers Name Role Phone Marcelo Gonzalez APRN, DNP Primary Care Provider [phone] Reason for Visit Reason Comments Refill Encounter Details Date Type Department Care Team Description 10/06/2010 Refill [facility] Marcelo Gonzalez, Refill [address] [address] [address] [facility] [phone] [place] [address] (Wo rk) Social History Tobacco Use Types Packs/Day Years Used Date Smoking Tobacco: Every Day Cigarettes 0.5 Comments: Restarted 12/2005; prior to janice t stopped for 8 months Alcohol Use Standard Drinks/Week Comments Yes 0.8 (1 standard drink = 0.6 oz pure alco hol) rarely Sex Assigned at Date Recorded Not on file documented as of this encounter Nursing Notes Karla Burrell RN - 10/09/2010 6:37 AM CDTApproved Prescriptions: Disp Refills simvastatin (AKA ZOCOR) 40 MG tablet 45 Tab 0Sig: Take 0.5 Tabs by mouth daily at bedtime.Authorizing Provider: MARCELO GONZALEZ User: KARLA BURRELL-CO Karla Burrell RN - 10/09/2010 6:37 AM CDT Please inform patient that they are due for fasting lab that monitors this medication before next refill and that they need to call the appointment center at [phone] for a lab only appointment. Karla Burrell RN 10/09/2010, 6:37 AM documented in this encounter Plan of Treatment Not on filedocumented as of this encounter Visit Diagnoses Diagnosis Hypercholesterolemia with hyperglyceride marilee (HRC) - Primary Mixed hyperlipidemia documented in this encounter Care Teams Elementary Reading Tutor Relationship Specialty Start Date End Date Marcelo Gonzalez APRN, DNP PCP - General 01/16/00 02/03/16 [address] [place] [id number] documented as of this encounter
--- OUTSIDE RECORDS SUMMARY | 2021-12-28 14:14 | XMS_ITS | Encounter Summary ---
:1965 Author Organization [facility] Address [address] [place] [address] Care Team Providers Name Role Phone Haylee Alanis APRN, CNP Primary Care Provider [phone] Encounter Details Date Type Department Care Team Description 03/31/2011 Correspondence External to External, Provid er HME SIGNATURE OF DEL[place] [address] Social History Tobacco Use Types Packs/Day Years [...] on filedocumented in this encounter Care Teams Gambreler Helper Relationship Specialty Start Date End Date Haylee Alanis APRN, CNP PCP - General Nurse Practitioner 02/04/[address] [place] [address] documented as of this encounter
--- OUTSIDE RECORDS SUMMARY | 2021-12-28 14:14 | XMS_ITS | Encounter Summary ---
:1965 Author Organization [facility] Address [address] [place] [address] Care Team Providers Name Role Phone Tiffany Gonzalez APRN, DNP Primary Care Provider Encounter Details Date Type Department Care Team Description 02/26/2011 Imaging [facility] [address] [address] Social History Tobacco Use Types Packs/Day Years [...] Associated Diagnosis Comme nts MM MAMMOGRAM Routine 02/26/2011 10:11 AM Results for this SCREENING BILAT W POWDER GUARD procedure are in CAD the results section. documented in this encounter Results MAMMOGRAM SCREENING BILATERAL (02/26/2011 10:11 AM POWDER GUARD) Anatomical Region Laterality Modality Breast Bilateral Mammography Specimen (Source) Anatomical Location Collection Method / Collectio n Time Received Time / Laterality Volume Narrative 02/26/2011 2:01 PM POWDER GUARD BILATERAL FULL FIELD DIGITAL SCREENING MAMMOGRAM Performed on 02/26/2011 Comparison: MAMMOGRAM SCREENING W/CAD BI LAT 11/28/09, MAMMOGRAM SCREENING W/CAD BILAT 08/03/08 and MAMMOGRAM, DAMARIS BLANCHARD (DIGITAL) 07/21/07. Findings: The breasts have scattered fib roglandular densities. There is no radiographic evidence of malignancy.This study was evaluated with the assistance of Computer-Aided Detection. ??Repeat routine screening mammogram in one year is recommended. ACR BI-RADS Category 1: Negative Procedure Note Iggy Joy - 02/26/2011Formattin g of this note might be different from the original. BILATERAL FULL FIELD DIGITAL SCREENING M AMMOGRAM Performed on 02/26/2011 Comparison: MAMMOGRAM SCREENING W/CAD BI LAT 11/28/09, MAMMOGRAM SCREENING W/CAD BILAT 08/03/08 and MAMMOGRAM, SCREENING (DIGITAL) 07/21/07. Findings: The breasts have scattered fib roglandular densities. There is no radiographic evidence of malignancy.This study was evaluated with the assistance of Computer-Aided Detection. Repeat routine screening mammogram in one year is recommended. ACR BI-RADS Category 1: Negative Tiffany Gonzalez APRN, DNP RAD AYANNA documented in this encounter Visit Diagnoses Not on filedocumented in this encounter Care Teams Novelty Chain Maker Relationship Specialty Start Date End Date Tiffany Gonzalez APRN, DNP PCP - General 01/16/00 02/03/16 [address] [place] [id number] documented as of this encounter
--- OUTSIDE RECORDS SUMMARY | 2021-12-28 14:14 | XMS_ITS | Encounter Summary ---
:1965 Author Organization [facility] Address [address] [place] [address] Care Team Providers Name Role Phone Tiffany Gonzalez APRN, DNP Primary Care Provider [phone] Reason for Referral Specialty Diagnoses / Procedures Referred By Contact Refer red To Contact Tiffany Gonzalez APRN, DNP [address] [place] [address] Referral ID Status Reason Start Date Expiration Date Visits Requ ested Visits Authorized Scheduling Instructions Your provider has recommended an appoint ment with [facility]. You may call [phone] to schedule your appoi ntment. If you prefer, a travel journalist will contact you within the next 3 business d ays to assist you in setting up this appointment. Reason for Visit Reason Comments LEG PAIN ASTHMA ROUTINE HEALTH MAINTENANCE Encounter Details Date Type Department Care Team Description 12/27/2010 Office Visit Elisabeth Gonzalez, [facility] care (Primary Dx); Practice Tiffany Still, POLYCYSTIC KIDNEY, UNSPEC; [address] HYPERTENSION NOS; [place], [place] [address] Reflux esophagitis; [address] [place] [address] ALLERGIC RHINITIS NOS; [phone] ASTHMA, UNSPECI FIED; (Work) Hypercholesterolemia with hyperglyceride marilee; [phone] Tobacco use dis order; (Fax) PMDD (premenstr ual dysphoric disorder); Bronchial asthm a; Depressive diso rder, not elsewhere classified; Sleep disturban ce; Migraine; Breast screenin g, unspecified Social History Tobacco Use Types Packs/Day Years [...] Sign Reading Time Taken Comments Blood Pressure 126/60 12/27/2010 9:14 AM CDT Pulse 86 12/27/2010 9:14 AM CDT Temperature - - Respiratory Rate - - Oxygen Saturation - - Inhaled Oxygen Concentration - - Weight 102.5 kg (226 lb) 12/27/2010 9:14 AM CDT Height - - Body Mass Index 35.13 09/30/2009 9:27 AM CDT documented in this encounter Patient Instructions Patient InstructionsTiffany Gonzalez, CARD TAPE CONVERTER OPERATOR, DNP - 12/27/2010 9:40 AM CDT Neurology consult regarding migraine Requested drug refills are approved. Will change position in car. If not helpful in pain to thigh, will proceed with physical therapy referral. For bone health: Calcium intake - 1200mg/ day in divided doses (food or supplements) if under age 50, otherwise 1500mg/day if over age 50. Three dairy products (yogurt/milk/cheese) is 1200mg. Vit D3 1000 - 2000IU daily. This [...] about Vit D all the time. In [place] Vit D levels are low dueto low level of sun exposure. ACOG revised recommendations are: ?? Women from ages 21 to 30 be screened every two years instead of annually, using either the standard Pap or liquid-based cytology. ?? Women age 30 and older who have had three consecutive negative cervical cytology test results maybe screened once every three years with either the Pap or liquid-based cytology. ?? Women with certain risk factors may need more frequent screening, including those who have HIV, are immunosuppressed, were exposed to diethylstilbestrol (ANDREA) in utero, and have been treated for cervical intraepithelial neoplasia (AYE) 2, AYE 3, or cervical cancer. Schedule mammogram documented in this encounter Progress Notes Tiffany Gonzalez APRN, DNP - 12/27/2010 9:41 AM CDT S Stephanie Norman is a 45 yr old female in for routine health maintenance. Current concerns: Chief Complaint Patient presents with ??? LEG PAIN ??? ASTHMA ??? ROUTINE HEALTH MAINTENANCE Menses are regular and predictable. PMS symptoms YES managed with celexa. Sexual activity: sexually active with female partner. L thigh pain past 3-6mos, only after prolonged drive or sitting (she commutes [address]). No pain otherwise. She does have bucket seats. HGB (g/dl) Date Value 03/28/2010 13.7 Present dietary habits: three meals a day and adequate fruit and vegetables Calcium intake: three or more servings daily Present exercise habits: minimal exercise I have reviewed the medical, surgical, family and social histories. Review of systems include ROS: CONSTITUTIONAL: No:, Change in appetite, Change in energy and change in weight EYES: no visual blurring, no double vision, no glaucoma, no cataracts, no eye pain, no color blindness ENT: no abnormally frequent URIs, no decrease in hearing, no persistently sore throat, no tinnitus, no vertigo RESPIRATORY: no shortness of breath, no cough, no sputum CARDIOVASCULAR: no palpitations, no irregular heart beats, no chest pain, no exertional chest pain or pressure GASTROINTESTINAL: normal appetite, no dysphagia, no nausea, no abdominal pain, no melena GENITOURINARY: no dysuria, no frequency, no hematuria MUSCULOSKELETAL: See above SKIN: no rash, no itch, no scaling, no hair changes, no nail changes NEUROLOGIC: no numbness or tingling of hands, no numbness or tingling of feet, no syncope PSYCHIATRIC: no sleep disturbances, no anxiety, no depression despite 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 Citalopram works very well for PMDD symptoms. Wants to keep taking that. HEMATOLOGIC/LYMPHATIC/IMMUNOLOGIC: no fevers, no night sweats, no chills, no weight loss ENDOCRINE: no cold intolerance, no heat intolerance, no polydypsia, no polyphagia O BP 126/60 Pulse 86 Wt 226 lb (102.513 kg) LMP 12/14/2010 Estimated Body mass index is 35.13 kg/(m^2) as calculated from the following: Height as of 09/30/09: 5' 7.25(1.708 m). Weight as of this encounter: 226 lb(102.513 kg). General: well developed, well nourished, well [...] organomegaly. Bowel sounds are normal. Pelvic Examination: deferred due to guidelines Skin: no suspicious lesions A 1. Preventative health care (V70.0C) 2. POLYCYSTIC KIDNEY, UNSPEC (753.12) 3. HYPERTENSION NOS (401.9) 4. Reflux esophagitis (530.11) 5. ALLERGIC RHINITIS NOS (477.9) 6. ASTHMA, UNSPECIFIED (493.90) 7. Hypercholesterolemia with hyperglyceridemia (272.2BP) 8. Tobacco use disorder (305.1) 9. PMDD (premenstrual dysphoric disorder) (625.4AA) 10. Bronchial asthma (493.90J) 11. Depressive disorder, not elsewhere classified (311) 12. Sleep disturbance (780.50M) 13. Migraine (346.90A) 14. Breast screening, unspecified (V76.10) P See pt instructions for plan/details. documented in this encounter Plan of Treatment Scheduled Referrals Name Type Priority Associated Diagnoses Order S chedule NEUROLOGY CONSULT-ADULTS Referral Routine Migraine Ord ered: 12/27/2010 documented as of this encounter Procedures Procedure Name Priority Date/Time Associated Diagnosis Comme nts BASIC METABOLIC Routine 12/27/2010 9:55 HYPERTENSION NOS Resul ts for this PANEL,FASTING AM CDT procedure are in the results section. LIPID PANEL AND Routine 12/27/2010 9:55 Hypercholesterolemia w ith Results for this DIRECT LDL(IF AM CDT hyperglyceridemia procedure are in NEEDED) the results section. ALT (SGPT) Routine 12/27/2010 9:55 Hypercholesterolemia with Results for this AM CDT hyperglyceridemia procedure are in the results section. AST Routine 12/27/2010 9:55 Hypercholesterolemia with Results for this AM CDT hyperglyceridemia procedure are in the results section. documented in this encounter Results ALT (SGPT) (12/27/2010 9:55 AM CDT) athologist Signature ALT (SGPT) 17 0 - 69 U/L Appies Specimen Anatomical Collection Method Collection Time Receive d Time (Source) Location / / Volume Laterality 12/27/2010 9:55 AM 1 CDT 10:09 AM CDT Tiffany Gonzalez APRN, DNP LAB_1 Performing Organization Address City/State/ZIP Code Phon e Number [facility] [phone] [facility] [address] [place] [phone] AST (12/27/2010 9:55 AM CDT) athologist Signature AST (SGOT) 25 0 - 55 U/L Appies Specimen Anatomical Collection Method Collection Time Receive d Time (Source) Location / / Volume Laterality 12/27/2010 9:55 AM 1 CDT 10:09 AM CDT Tiffany Gonzalez APRN, DNP LAB_1 Performing Organization Address [facility] Phon e Number [facility] [phone] [facility] [address] [phone] (ABNORMAL) LIPID PANEL AND DIRECT LDL(IF NEEDED) (12/27/2010 9:55 AM CDT) [facility] Method Time Signature Cholesterol 190 0 - 199 [facility] mg/dl Triglyceride 298 (H) 0 - 149 [facility] mg/dl HDL 46 >40 mg/dl [facility] LDL, Calc. 84 0 - 129 [facility] mg/dl Hours Fasting 12 hours [facility] Specimen Anatomical Collection Method Collection Time Receive d Time (Source) Location / / Volume Laterality 12/27/2010 9:55 AM 1 CDT 10:09 AM CDT Tiffany Gonzalez APRN, DNP LAB_1 Performing Organization Address [facility] Phon e Number [facility] [employer] [phone] [phone] (ABNORMAL) BASIC METABOLIC PANEL,FASTING (12/27/2010 9:55 AM CDT) [facility] Method Time Signature BUN 14 7 - 20 [facility] mg/dl Sodium 138 135 - 145 [facility] mmol/L Potassium 4.9 3.5 - 5.3 [facility] mmol/L Chloride 104 95 - 106 [facility] mmol/L CO2 28 22 - 30 [facility] mmol/L Glucose 77 70 - 100 [facility] mg/dl Hours Fasting 12 hours [facility] Creatinine 1.51 (H) 0.52 - [facility] 1.04 mg/dl GFR, Estimated 37.1 (L) >60 [facility] ml/min/1. 73m2 GFR, Est., If 44.9 (L) >60 [facility] Black ml/min/1. 73m2 Calcium 9.3 8.4 - [facility] 10.2 mg/dl Anion Gap 7 7 - 16 [facility] (calc.) mmol/L Specimen Anatomical Collection Method Collection Time Receive d Time (Source) Location / / Volume Laterality 12/27/2010 9:55 AM 1 CDT 10:09 AM CDT Tiffany Gonzalez APRN, DNP LAB_1 Performing Organization Address City/State/ZIP Code Phon e Number [facility] [phone] [facility] [address] [phone] documented in this encounter Visit Diagnoses Diagnosis Preventative health care - Primary Routine general medical examination at a health care facility POLYCYSTIC KIDNEY, UNSPEC Polycystic kidney, unspecified type HYPERTENSION NOS Unspecified essential hypertension Reflux esophagitis ALLERGIC RHINITIS NOS Allergic rhinitis, cause unspecified ASTHMA, UNSPECIFIED Unspecified asthma Hypercholesterolemia with hyperglyceride marilee (HRC) Mixed hyperlipidemia Tobacco use disorder ([facility]) Tobacco use disorder PMDD (premenstrual dysphoric disorder) Premenstrual tension syndromes Bronchial asthma (HRC) Unspecified asthma Depressive disorder, not elsewhere class ified Sleep disturbance Sleep disturbance, unspecified Migraine Migraine, unspecified, without mention o f intractable migraine without mention of status migrainosus Breast screening, unspecified documented in this encounter Care Teams Insurance Loss Control Surveyor Relationship Specialty Start Date End Date Tiffany Gonzalez APRN, GAIL PCP - General 01/16/00 02/03/16 [address] [place] [address] documented as of this encounter
--- OUTSIDE RECORDS SUMMARY | 2021-12-28 14:14 | XMS_ITS | Encounter Summary ---
:1965 Author Organization [facility] Address [address] [place] [address] Care Team Providers Name Role Phone Tiffany Gonzalez APRN, GAIL Primary Care Provider [phone] Reason for Referral Specialty Diagnoses / Procedures Referred By Contact Refer red To Contact Lisa Ludwig APRN, CNP [address] [place] [address] Referral ID Status Reason Start Date Expiration Date Visits Requ ested Visits Authorized Scheduling Instructions Your physician has recommended that you make an appointment with [facility], a member of the [facility]. To schedule your appointment, please call [phone]. [facility] is a participating provider for most insuranc e plans. For details about your specific benefit coverage, please call the member services phone number on the back of your insurance card. Specialty Diagnoses / Procedures Referred By Contact Refer mojgan To Contact Lisa Ludwig APRN, CNP [address] [place] [address] Referral ID Status Reason Start Date Expiration Date Visits Requ ested Visits Authorized Scheduling Instructions Your provider has recommended an appoint ment with [facility]. You may call [phone] to schedule your appoi ntment. If you prefer, a sifting operator will contact you within the next 3 business d ays to assist you in setting up this appointment. Specialty Diagnoses / Procedures Referred By Contact Refer red To Contact Lisa Ludwig APRN, CNP [address] [place] [address] Referral ID Status Reason Start Date Expiration Date Visits Requ ested Visits Authorized Scheduling Instructions Please schedule with Dr. Fletcher in Neurolo gy for a Sleep Consult. Reason for Visit Reason Comments CONSULT headaches Encounter Details Date Type Department Care Team Description 02/04/2011 Office Visit Specialty Center Lisa Ludwig, Mgrn w o aura wo intrc mgr (Primary Dx); [facility] [place] Cervicalgia; [address] Sleep disturbance, unspecified; [place] [address] [place], [place] Jaw pain [phone] [id number] Social History Tobacco Use Types Packs/Day Years [...] Sign Reading Time Taken Comments Blood Pressure 128/86 02/04/2011 1:43 PM CDT Pulse 84 02/04/2011 12:38 PM CDT Temperature - - Respiratory Rate - - Oxygen Saturation - - Inhaled Oxygen Concentration - - Weight 102.6 kg (226 lb 3.2 oz) 02/04/2011 12:38 PM CDT Height 172.1 cm (5' 7.75) 02/04/2011 12:38 PM CDT Body Mass Index 34.65 02/04/2011 12:38 PM CDT documented in this encounter Patient Instructions Patient InstructionsLisa Ludwig, [place], BRICK OFFBEARER - 02/04/2011 1:43 PM CDT Thank you for choosing [facility] for your care! The following instructions are for your information. Please review this sheet carefully and contact us if you have any questions. Follow-up: Please follow-up on at 1:45pm. Please arrive in the neurology department 15 minutes before your scheduled follow-up appointment time to allow adequate time for the nursing staff to review your medications and vital signs prior to your visit with me. Thank you in advance for arriving on time for your appointment so we can spend as much time as possible for your visit. If you arrive in the neurology department 15 minutes or more after the time your follow-up visit was scheduled to begin you may be asked to reschedule your appointment. PLEASE NOTE: If you are unable to keep your follow-up appointment, please call at least 24 hours in advance to let us know so that we may schedule another patient for that time. If you need to cancel you may call the neurology department or call the [facility] Appointment Center at [phone]. The Appointment Center is open from 7am - 9pm seven days a week for your convenience. Please call the neurology department at [phone] with any concerns regarding your visit today orfor any issues as listed below on this follow-up form. If you do not receive a return phone call from us within 4 hours, please call again. Thank you. Reason for your visit: migraine headaches Diagnosis: Chronic migraine headache without aura also known as common migraine. Neck pain Jaw pain Snoring MEDICATION: Vitamin B2 - also known as Riboflavin - Get a 100mg dose or higher and take 400mg a day. You may take all 4 pills once a day. Do not use a B complex to get this much B2. Magnesium -Get a 250mg dose. Start with 500mg a day (2 tablets) for 1 week and increase by 1 pill a week to the point where you have loose stools. THEN go back to the dose you were on right before the loose stools occurred. Do NOT stay on the loose stool dose as this indicates you are getting too muchmagnesium! Ask your [place] doctor about using Imitrex or Maxalt or Relpax to treat your migraine headaches. If they feel this is an OK option given your kidney and blood pressure call me to get a prescription. You can use Excedrin as needed up to 4 days per month but you should look for aspirin free Excedrin to use. REFERRALS: Please schedule the following Referral(s): ?? X-ray of neck ?? Dr. Fletcher for a sleep evaluation ?? [facility] [place] for jaw pain ?? [facility] for neck and upper back pain Please check with your insurance provider to be certain referrals will be covered. RESULTS: Please call the Neurology Department at [phone], in 10 day(s) after your X- ray, if you have NOTreceived a letter or phone call regarding the results. Recommendations: Exercise : Work on exercising at least 4 times per week for a total of 30 minutes. Pick an exercise you would like to do! Regular exercise can help decrease headache frequency. Diet :Try to eat protein foods throughout the day. Headache Calendar: Keep track of headaches on a calendar and bring it with you to your return appointment. IMAGERY: [email or web address] - please use regularly to help decrease headaches. FOLLOW-UP: Please follow-up with Tiffany Gonzalez NP / your primary care clinic regarding all other medical issues and concerns. Please call the neurology department at [phone] if you have any questions related to your visittoday, new symptoms, worsening symptoms, side effects to your medication that you can not tolerate, concerns that your medication is not working well to control your symptoms and headaches more than 4 days per month. Return visit information: Please bring all your medications (including over the counter medications, vitamins and herbal products) with you to all of your visits. Please call at least 24 hours in advance if you are unable to keep your follow-up appointment so that we may schedule another patient for that time. Please arrive in the neurology department 15 minutes BEFORE your scheduled appointment time for the nurse to review all medications and check your vital signs. Tell us What You Think We want to ensure that you are completely satisfied with the care you receive from all employees at [facility]. Please email us at [email or web address] to let us know what you thought of your visit with us today. documented in this encounter Progress Notes Lisa Ludwig APRN, CNP - 02/04/2011 6:04 PM CDT S: Stephanie Norman is a 45 yr old female I was asked to see by Tiffany Gonzalez NP per consultdated 12-27-10 for evaluation of chronic headaches which she has had since elementary school. She is having a headache about 2 days per month by her estimate. Headache location is starting in her neck bilaterally moving up to bioccipital and then bifrontal described as pressure pushing in on her head. The headache lasts about 3 hours up to 2 days in duration with a time and day of onset that varies. Excedrin brings a headache from a ''2'' to a ''0-3'' after 3 hours. She finds an order for Excedrin to work she has to lie in a dark quiet room and have ice surrounding her entire head. The headache isworsened by movement, coughing and sneezing. She has c/o seeing floaters (at the onset of a headache and during the headache), nausea, vomiting (not with all of the headaches), weakness (my whole body), has exhaustion, photophobia, phonophobia,sensitivity to smell and neck pain (bilateral) with the headache. Denies any other associated symptoms with the headache including denying diplopia, loss of vision, jaw pain , paresthesias and dizziness . Factors potentially affecting headache management include: can have an alteration in sleep pattern, no regular exercise. Previous medication trials include: Tylenol, Advil, Midrin, Cafergot, Excedrin, Inderal (back in 1994). She currently takes lisinopril for hypertension management through a researchstudy done at the [facility] and thinks headaches may have improved on this. When I asked what she would like to get out of today's visit she stated my head, make the headachesstop. ROS: In addition to the above mentioned symptoms, she does snore and has been told by her partner that she has had episodes where she has stopped breathing. She has chronic neck pain every day. Has hadfor the last 6-12 months. It is bilateral. Notes a pressure feeling up at the base of her skull intoher neck. She has left thigh pain which she states she has discussed with her primary care provider.Has jaw pain all the time on the right side. Has a mouth guard that she got 10 years ago though there has not been any recent reevaluation. She has bladder urgency for the last year. Other than the above-mentioned symptoms, the remainder of the medical and neurologic review of system is negative including denying any back pain, paresthesias in extremities, weakness in extremities, difficulty walking, hearing loss, visual disturbance, speech or swallowing problem, bowel symptoms, change in smell or taste, chest pain, shortness of breath, memory loss, anxiety or depression. PMH: Past Medical History Diagnosis Date ??? HYPERTENSION NOS 06/01/2003 ??? VARICELLA UNCOMPLICATED ??? Reflux esophagitis ??? POLYCYSTIC KIDNEY, UNSPEC ??? ALLERGIC RHINITIS NOS ??? ASTHMA, UNSPECIFIED ??? Hypercholesterolemia with hyperglyceridemia ??? Tobacco use disorder ??? PMDD (premenstrual dysphoric disorder) on Celexa ??? ENDOMETRIAL POLYP ??? 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 Snoring She denies hx of hepatitis or kidney stones. Works with a MD at the [employer] regarding her polycystic kidney disease. Past Surgical History Procedure Date ? ? Hysteroscpy surg; w/bx &/ polypect 03/31/04 ??? Appendectomy 04-07-2010 FMH: Father at age 69 from breast cancer, also had a history of polycystic kidney disease and hypertension. Mother at age 44 from breast cancer. Had a history of migraine headaches. Sister also has a history of migraine headaches. Social history: She has a female partner. They are adopting 6 children ranging in age from 9-month-old twins up to a 14-year-old. 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 Job can be stressful. She smokes. She plans to quit on February 23. She has 2 alcoholic beverages every [address]. Allergies: Amoxicillin, Penicillins, Neomycin and Beta adrenergic blockers Medications: Outpatient prescriptions marked as taking for the 02/04/11 encounter (Office Visit) with BRITTNY LUDWIG: acetaminophen (TYLENOL EXTRA STRENGTH) 500 MG tablet Take 500-1,000 mg by mouth every 4 hours as needed. Disp: Rfl: ALBUterol 2.5 mg/3 mL, 0.083%, nebulizer solution Inhale 3 mL by mouth 4 times a day as needed for Wheezing. Disp: 60 Each Rfl: 11 htjqdqg-lfklozfhuotul-bbpsbfeb (EXCEDRIN MIGRAINE) 250-250-65 MG tablet Take 1 Tab by mouth every 6 hours as needed. Disp: Rfl: beclomethasone (QVAR) 80 MCG/ACT inhaler Inhale 1 Puff by mouth two times a day. Rinse mouth after use Disp: 7.3 g Rfl: 3 citalopram (AKA CELEXA) 40 MG tablet Take 1 Tab by mouth daily. Disp: 90 Tab Rfl: 3 CLARITIN 10 MG OR TABS 1 TABLET DAILY Disp: 30 Rfl: 0 FISH OIL 1000 MG OR CAPS 1 capsule daily Disp: Rfl: guaifenesin-codeine (GUAIFENESIN AC) 100-10 MG/5ML solution Take 10 mL by mouth daily at bedtime. May repeat x 1 in 2 hrs if no effect. Disp: 240 mL Rfl: 1 lisinopril (AKA ZESTRIL) 20 MG tablet Take 30 mg by mouth daily. Disp: Rfl: omeprazole (PRILOSEC) 20 MG capsule Take 1 Cap by mouth daily. Take 1 hour before a meal. Disp: 90 Cap Rfl: 3 simvastatin (AKA ZOCOR) 40 MG tablet TAKE ONE-HALF TABLET BY MOUTH DAILY AT BEDTIME. Disp: 45 Tab Rfl: 3 traZODone (AKA DESYREL) 100 MG tablet Take 0.5-1 Tabs by mouth daily at bedtime. Disp: 30 Tab Rfl: 11 VITAMIN B COMPLEX OR 1 daily Disp: Rfl: VITAMIN C 500 MG OR TABS 2 tablets daily in cold season Disp: Rfl: O: BP 128/86 Pulse 84 Ht 5' 7.75 (1.721 m) Wt 226 lb 3.2 oz (102.604 kg) BMI 34.65 kg/m2 Casually dressed, neatly groomed female who appears stated age and in no acute distress. Mental Status: Alert and oriented x 3. Cooperative with good attention span and concentration. Speech normal and fluent. Able to recall 3 words immediately and after several minutes. Able to spell the word world backward correctly. Cranial nerves: Visual anna intact to confrontation. Funduscopic exam appears normal. PERRL, EOMs full, no c/o diplopia, no nystagmus or ptosis noted. Facial sensation intact to light touch and pin prick. Muscles of mastication strong and equal bilaterally. No facial asymmetry or paresis noted. Hearing intact to finger rub bilaterally. Uvula elevates midline. Sternocleidomastoid and trapezius strengths strong and equal bilaterally. Tongue protrudes midline and no atrophy or fasciculation noted, tongue moves easily. Neck: Somewhat limited neck ROM with complaints of posterior neck discomfort. Neck is supple and strength is strong. No c/o discomfort with palpation along posterior aspect of head or along her lower back but she does note discomfort palpation the posterior neck into her upper trapezius muscles bilaterally which are tight to palpation. Motor: No muscle atrophy noted of upper or lower extremities and tone is normal. Upper and lower extremity muscle strength strong and equal bilaterally. No palmar drift. Negative straight leg lift. Sensation: No sensory deficit noted to pin prick or light touch on upper or lower extremities. Gait, Coordination: Casual, tandem, heel and toe gaits are smooth. Able to perform tandem gait backward. Negative Romberg. Rapid alternating movements with hands and fingers are smooth. Znvaod-qp-ucwl test accurate bilaterally. Qzup-ac-urlj test smooth bilaterally. Reflexes: Biceps, triceps, brachioradialis, quadriceps, and Achilles reflexes present and symmetric bilaterally. Toes do plantar flex to stimulation. Cardiovascular: Positive pulses palpated in temples bilaterally and no c/o discomfort with palpation. TMJ: Has c/o discomfort with opening or closing of mouth and with with palpation of TMJ areas bilaterally. Also has some palpable grinding felt with opening and closing of her mouth. Skin: No rashes noted on her upper or lower extremities. A: 1. Chronic migraine headache without aura also known as common migraine. 2. Chronic daily neck pain 3. Sleep issues and snoring. Reports that her partner has said she has seen her with periods of apnea. 4. TMD issues and jaw pain. Has a bite splint though it has not recently been evaluated. P: 1.We discussed headache management in terms of preventative and abortive medications. Recommended given her current reported frequency of 2 days per month, to add on B2 and magnesium but discussed I was hard pressed to suggest an additional preventative beyond that. 2.Discussed using a triptan as an abortive. I asked her to speak with her [place] physician regarding this and any impact it may have on her kidney disease or hypertension. 3.Referrals placed for: X-ray of neck given the neck pain Dr. Fletcher for a sleep evaluation (she was asked to bring her partner with her or have her partner make some notes regarding what she does when she is asleep) [facility] [place] for jaw pain (recommended to bring her bite splint with her) and [facility] for neck and upper back pain 4.Detailed teaching and counseling regarding headache done with written information given and reviewed. Specifically patient was encouraged to start to do some exercise such as walking for 20 minutes 4days per week. 5. Discussed the role of progressive muscle relaxation and imagery and given patient the name of a website as a resource. 6. F/U with Tiffany Gonzalez NP regarding all other medical issues. 7. Call with questions, changes, problems or increased headache more than 4 days per month and follow-up in May with a headache calendar which I provided her with. 8. Please see After Visit Summary for additional instructions given. Lisa Ludwig NP-A 02/04/2011 This note was created using speech-recognition software and may contain unintended word substitutions. documented in this encounter Plan of Treatment Scheduled Referrals Name Type Priority Associated Diagnoses Order S chedule SLEEP STUDY - NEURO Referral Routine Sleep disturbance, Or dered: 02/04/2011 (Dr. Fletcher) unspecified TMD / TMJ / OROFACIAL Referral Routine Jaw pain Ordere d: 02/04/2011 PAIN / ORAL MEDICINE CONSULT [facility] NECK AND Referral Routine Cervicalgia Ordered: 02/04/2011 BACK [[id number]] documented as of this encounter Results XR C-SPINE AP/LATERAL (02/04/2011 [...] posterior osteophytes. Procedure Note Lex Hurley - 02/04/2011Formatti ng of this note might be different from the original. XR C-SPINE AP/LAT 2 VWS 02/04/2011, 1411:59 HOURS INDICATION: Bilateral neck pain and head ache. COMPARISON: None. FINDINGS: Alignment of the cervical spin e is within normal limits. No fracture or dislocation. Mild disc heigh t loss at C5-C6 with mild anterior and posterior osteophytes. Lisa Ludwig FOREIGN BROADCAST SPECIALIST, BRICK OFFBEARER RAD GD documented in this encounter Visit Diagnoses Diagnosis Migraine without aura, without mention o f intractable migraine without mention of status migrainosus - Primary Cervicalgia Sleep disturbance, unspecified Jaw pain Cervicalgia documented in this encounter Care Teams Rod Greaser Relationship Specialty Start Date End Date Tiffany Gonzalez APRN, DNP PCP - General 01/16/00 02/03/16 [address] [place] [id number] documented as of this encounter
--- OUTSIDE RECORDS SUMMARY | 2021-12-28 14:14 | XMS_ITS | Encounter Summary ---
:1965 Author Organization [facility] Address [address] [place] [address] Care Team Providers Name Role Phone Tiffany Gonzalez APRN, GAIL Primary Care Provider [phone] Reason for Referral Specialty Diagnoses / Procedures Referred By Contact Refer red To Contact Ancelmo Kendall V [address] [place] [address] Referral ID Status Reason Start Date Expiration Date Visits Requ ested Visits Authorized Scheduling Instructions . TRICAL TECHNICIAN INSTRUCTOR Reason for Visit Reason Comments CPAP (new) Encounter Details Date Type Department Care Team Description 03/31/2011 Home Medical [facility] Ancelmo Kendall V Obstruc tive sleep Services Medical Equipment apnea (adult) [address] (pediatr ic) (Primary N. Dx) [place], [place] [id number] Social History Tobacco Use Types Packs/Day Years Used Date Smoking Tobacco: Former Cigarettes 0.5 Quit : 02/23/2011 Smokeless Tobacco: Never Comments: Restarted 12/2005; prior to janice t stopped for 8 months Alcohol Use Standard Drinks/Week Comments Yes 0.8 (1 standard drink = 0.6 oz pure alco hol) rarely Sex Assigned at Date Recorded Not on file documented as of this encounter Progress Notes Ancelmo Kendall V - 03/31/2011 9:59 AM CST [facility] CPAP Note Stephanie Norman was seen by [facility] on 03/31/2011. Patient was set up on CPAP with pressure of 8 cm H2O. Patient was set up with heated humidity. Patient was fitted with a Mirage Micro small nasal mask . Ramp was set to 20 minutes. Additional notes: Patient received a CloudOnekel [id number] with serial # [id number]. A revisit order was placed for this patient. Ancelmo Kendlal TRICAL TECHNICIAN INSTRUCTOR documented in this encounter Plan of Treatment Scheduled Referrals Name Type Priority Associated Diagnoses Order S chedule SLEEP STUDY REVISIT Referral Routine Obstructive sleep research program internship ea Ordered: 03/31/2011 (NEURO) [[id number]] (adult) (pediatric) documented as of this encounter Visit Diagnoses Diagnosis Obstructive sleep apnea (adult) (pediatr ic) - Primary documented in this encounter Care Teams Licensed Psychologist Director Relationship Specialty Start Date End Date Tiffany Gonzalez APRN, DNP PCP - General 01/16/00 02/03/16 [address] [place] [id number] documented as of this encounter
--- OUTSIDE RECORDS SUMMARY | 2021-12-28 14:14 | XMS_ITS | Encounter Summary ---
:1965 Author Organization [facility] Address [address] [place] [address] Care Team Providers Name Role Phone Tiffany Gonzalez APRN, DNP Primary Care Provider Encounter Details Date Type Department Care Team Description 02/25/2011 Correspondence External to UNABLE TO C ONTACT PATIENT FOR APPT Social History Tobacco Use Types Packs/Day Years [...] Notes Interface, In Chrtscr And Scan - 02/26/2011 12:52 PM DIRECTOR PEDIATRIC CTOR PEDIATRIC documented in this encounter Plan of Treatment Not on filedocumented as of this encounter Visit Diagnoses Not on filedocumented in this encounter Care Teams Seo Assistant Relationship Specialty Start Date End Date Tiffany Gonzalez APRN, GAIL PCP - General 01/16/00 02/03/16 [address] [place] [id number] documented as of this encounter
--- OUTSIDE RECORDS SUMMARY | 2021-12-28 14:14 | XMS_ITS | Encounter Summary ---
:1965 Author Organization [facility] Address [address] [place] [address] Care Team Providers Name Role Phone Tiffany Gonzalez APRN, GAIL Primary Care Provider Reason for Visit Reason Comments Refill Encounter Details Date Type Department Care Team Description 12/20/2010 Refill [facility] Tiffany Gonzalez, Refill [address] [place], [place] [address] [address] [phone] [place]ANEL [id number] (Wo rk) Social History Tobacco Use Types [...] on filedocumented in this encounter Care Teams Simonizer Relationship Specialty Start Date End Date Tiffany Gonzalez, [place], GAIL PCP - General 01/16/00 02/03/16 [address] [place] [id number] documented as of this encounter
--- OUTSIDE RECORDS SUMMARY | 2021-12-28 14:14 | XMS_ITS | Encounter Summary ---
:1965 Author Organization [facility] Address [address] [place] [address] Care Team Providers Name Role Phone Tiffany Gonzalez APRN, DNP Primary Care Provider Encounter Details Date Type Department Care Team Description 03/31/2011 Correspondence None Inactive, Provider PAP EQU IPMENT [...] Chrtscr And Scan - 04/07/2011 12:34 PM BACK ROLL LATHE OPERATOR ROLL LATHE OPERATOR documented in this encounter Plan of Treatment Not on filedocumented as of this encounter Visit Diagnoses Not on filedocumented in this encounter Care Teams Cad Cam Programmer Relationship Specialty Start Date End Date Tiffany Gonzalez APRN, GAIL PCP - General 01/16/00 02/03/16 [address] [place] [id number] documented as of this encounter
--- OUTSIDE RECORDS SUMMARY | 2021-12-28 14:14 | XMS_ITS | Encounter Summary ---
:1965 [facility] Organization [facility] Address [address] [place] [address] Care Team Providers Name Role Phone Tiffany Gonzalez APRN, GAIL Primary Care Provider [phone] Reason for Referral Specialty Diagnoses / Procedures Referred By Contact Refer red To Contact [facility]-[address] [place] [address] Referral ID Status Reason Start Date Expiration Date Visits Requ ested Visits Authorized Scheduling Instructions Your [facility] has been [facility] to [facility] for processing. You should have received further instruction from y our provider, either verbally or in writing, that will explain how you will obtain yo ur equipment. If you have any questions, you may contact [facility] at [phone]. This serves as your notification that a Home Medical supplie r will be contacting you about this order on the behalf of your ordering provider. H CATCHER Reason for Visit Reason Comments SLEEP,DISTURBANCE Encounter Details Date Type Department Care Team Description 03/30/2011 Sleep Procedure [facility] structive sleep ap[facility] (adult) (pediatric) [address] [place] [address] (Primary Dx) [place] [address] Social History Tobacco Use Types Packs/Day Years [...] Taken Comments Blood Pressure - - Pulse - - Temperature - - Respiratory Rate - - Oxygen Saturation - - Inhaled Oxygen Concentration - - Weight 103 kg (227 lb) 03/30/2011 7:35 PM DOUGH CATCHER Height 170.2 cm (5' 7) 03/30/2011 7:35 PM DOUGH CATCHER Body Mass Index 35.55 03/30/2011 7:35 PM DOUGH CATCHER documented in this encounter Patient Instructions Patient InstructionsAracelis Mcdowell - 03/31/2011 5:17 AM CST [facility] 1. Your sleep study has shown that you have Obstructive Sleep Apnea (TREMAINE). 2. During the study, your technologist was able to place you on PAP treatment and determine a reasonably effective treatment pressure or your provider would like you to trial a special PAP device that will determine an effective pressure. 3. This morning, you will be set-up on your PAP equipment at the [facility] in [place] (a map with directions will be provided). 4. Your provider???s clinic will be contacting you to set-up a follow-up visit in about six to eightweeks so that you can discuss how your treatment is going. 5. If you have any questions or problems with your treatment plan, please contact your ordering provider???s clinic. No notes on file H CATCHER documented in this encounter Progress Notes Darryn Fletcher - 04/18/2011 1:48 PM CST Split-Night Polysomnogram Interpretation Date of read: 04/18/2011 Estimated Body mass index is 35.55 kg/(m^2) as calculated from the following: Height as of this encounter: 5' 7(1.702 m). Weight as of this encounter: 227 lb(102.967 kg). Total Banning Score: (not recorded) Neck Circumference (in inches): 14.5 Baseline: 1. This study was performed in order to evaluate for TREMAINE. Hypopnea Definition: Rule VIII.4.A 2. Due to [...] on 03/31/11 per sleep lab protocol. . I attest that I have conducted an epoch by epoch review of all of the raw data for this sleep study or procedure. Al Fletcher MD H CATCHER documented in this encounter Nursing Notes 03/30/2011 7:30 PM CST >> ARACELIS Estrella Mar 31, 2011 1:50 PM SPLIT PSG DATA REPORT Patient Name: Stephanie Norman Patient : 1965 Study Date: 03/30/2011 Center Name: [facility] Center Location: [facility] EMR DATA - DIAGNOSTIC Hypopnea Definition: 4A Total Sleep Time (TST): 202.0 min Sleep Latency (SL): 47.8 min Stage R Sleep Latency: 146.0 min Sleep Efficiency: 78.3% Obstructive Apneas: 27 Central Apneas: 3 Mixed Apneas: 0 Hypopneas: 68 RERAS: 22 RDI: 35.6 AHI: 29.1 REM RDI: 100.0 Low SpO2: 79.0% PLM Arousal Index: 0.0 [facility] DATA - TREATMENT Hypopnea Definition: 4A Total Sleep Time (TST): 332.0 min Sleep Latency (SL): 18.4 min Stage R Sleep Latency: 90.0 min Sleep Efficiency: 92.8% Obstructive Apneas: 2 Central Apneas: 4 Mixed Apneas: 0 Hypopneas: 4 RERAS: 20 RDI: 5.4 AHI: 1.8 REM RDI: 7.5 Low SpO2: 89.0% PLM Arousal Index: 0.0 SPLIT PSG AASM/FULL DATA REPORT DIAGNOSTIC PORTION A. PARAMETERS See end of report for recording montage information. B. SLEEP SCORING DATA Lights OUT: 9:55:45 PM Lights ON: 2:13:41 AM Total Sleep Time (TST): 202.0 min Total Recording Time (TRT): 257.9 min Sleep Latency (SL): 47.8 min Stage R Latency: 146.0 min Wake After Sleep Onset (WASO): 8.1 min Sleep Efficiency %: 78.3% N1 Time: 47.0 min N1 %/TST: 23.3% N2 Time: 101.0 min N2 %/TST: 50.0% N3 Time: 48.0 min N3 %/TST: 23.8% REM Time:6.0 min REM %/TST: 3.0% C. AROUSAL EVENTS Total Arousals: 70 Arousal Index: 20.8 D. RESPIRATORY EVENTS Obstructive Apneas: 27 Mixed Apneas: 0 Central Apneas: 3 Obstructive Hypopneas: 68 Central Hypopneas: 0 Apneas + Hypopneas: 98 Apnea Index (AI): 8.9 Hypopnea Index (HI): 20.2 RERAs: 22 RERA Index: 6.5 AHI: 29.1 RDI: 35.6 REM AHI: 100.0 REM RDI: 100.0 Oxygen Desaturations: 98 Oxygen Desaturation Index: 29.1 Oxygen Saturation Mean: 93.3% Oxygen Saturation Min: 79.0% Occurrence of Hypoventilation: NO Occurrence of Jimi-Barillas Breathing: NO E. CARDIAC EVENTS Heart Rate Average (During Sleep): 56.6 Heart Rate Max (During Sleep): 149.1 Heart Rate Max (Total Recording): 853.3 Bradycardia: 0 Asystole: 0 Sinus Tachycardia: 0 Narrow Complex Tachycardia: 0 Wide Complex Tachycardia: 0 Atrial Fibrillation: 0 Other Arrhythmias: See Interpretation for Details F. MOVEMENT EVENTS PLMS: 0 PLMS with Arousals: 0 PLMS Index: 0.0 PLMS Arousal Index: 0.0 G. POSITION DATA TST Lateral (Total/%): 53.0% TST Supine (Total/%): 47.0% Lateral AHI: 3.9 Lateral RDI: 14.6 Supine RDI: 59.4 Supine AHI: 57.5 TREATMENT PORTION A. PARAMETERS See end of report for recording montage information. B. SLEEP SCORING DATA Lights OUT: 2:20:43 AM Lights ON: 8:18:32 AM Total Sleep Time (TST): 332.0 min Total Recording Time (TRT): 357.8 min Sleep Latency (SL): 18.4 min Stage R Latency: 90.0 min Wake After Sleep Onset (WASO): 7.4 min Sleep Efficiency %: 92.8% N1 Time: 27.5 min N1 %/TST: 8.3% N2 Time: 108.5 min N2 %/TST: 32.7% N3 Time: 29.0 min N3 %/TST: 8.7% REM Time: 167.0 min REM %/TST: 50.3% C. AROUSAL EVENTS Total Arousals: 38 Arousal Index: 6.9 D. RESPIRATORY EVENTS Obstructive Apneas: 2 Mixed Apneas: 0 Central Apneas: 4 Obstructive Hypopneas: 4 Central Hypopneas: 0 Apneas + Hypopneas: 10 Apnea Index (AI): 1.1 Hypopnea Index (HI): 0.7 RERAs: 20 RERA Index: 3.6 AHI: 1.8 RDI: 5.4 REM AHI: 1.4 REM RDI: 7.5 Oxygen Desaturations: 11 Oxygen Desaturation Index: 2.0 Oxygen Saturation Mean: 95.0% Oxygen Saturation Min: 89.0% Occurrence of Hypoventilation: NO Occurrence of Jimi-Barillas Breathing: NO E. CARDIAC EVENTS Heart Rate Average (During Sleep): 52.6 Heart Rate Max (During Sleep): 149.1 Heart Rate Max (Total Recording): 149.1 Bradycardia: 0 Asystole: 0 Sinus Tachycardia: 0 Narrow Complex Tachycardia: 0 Wide Complex Tachycardia: 0 Atrial Fibrillation: 0 Other Arrhythmias: See interpretation for details. F. MOVEMENT EVENTS PLMS: 0 PLMS with Arousals: 0 PLMS Index: 0.0 PLMS Arousal Index: 0.0 G. POSITION DATA TST Lateral (Total/%): 40.1% TST Supine (Total/%): 59.9% Lateral AHI: 0.0 Lateral RDI: 2.7 Supine RDI: 7.2 Supine AHI: 3.0 >> Iggy [facility] Mar 31, 2011 7:38 AM BASELINE: Patient had a normal sleep onset. Snoring was moderate. Positions noted were supine and lateral. Stages noted were 1,2,3 and REM. Sats were in the mid 90's. Patient had frequent obstructive events during the night along with arousals and desats. Patient met the criteria for TREMAINE and was put on CPAP for titration of an effective pressure. TREATMENT: CPAP was titrated to a pressure of 8cmh2o w/heated humidity while in supine position. Snoring was eliminated. Positions noted were supine. Stages reached were 1,2,3 and REM. Sats were in themid 90's. Patient tolerated well. Letter B was given to patient prior to leaving. documented in this encounter Plan of Treatment Scheduled Referrals Name Type Priority Associated Diagnoses Order S [facility] CPAP Referral Routine Obstructive sleep apnea (leslie lt) Ordered: 03/31/2011 (pediatric) documented as of this encounter Visit Diagnoses Diagnosis Obstructive sleep apnea (adult) (pediatr ic) - Primary documented in this encounter Care Teams Poultry Process Worker Relationship Specialty Start Date End Date Tiffany Gonzalez APRN, GAIL PCP - General 01/16/00 02/03/16 [id number] [place] [id number] documented as of this encounter
--- OUTSIDE RECORDS SUMMARY | 2021-12-28 14:14 | XMS_ITS | Encounter Summary ---
:1965 Author Organization [facility] Address [address] [place] [address] Care Team Providers Name Role Phone Tiffany Gonzalez APRN, DNP Primary Care Provider Encounter Details Date Type Department Care Team Description 03/31/2011 Correspondence None Inactive, Provider INSTRUC TION CHECKLIST Social History Tobacco Use Types Packs/Day Years [...] Interface, In Chrtscr And Scan - 04/07/2011 12:19 PM FLAT IRONER IRONER documented in this encounter Plan of Treatment Not on filedocumented as of this encounter Visit Diagnoses Not on filedocumented in this encounter Care Teams Correctional Security Officer Relationship Specialty Start Date End Date Tiffany Gonzalez APRN, GAIL PCP - General 01/16/00 02/03/16 [address] [id number] documented as of this encounter
--- OUTSIDE RECORDS SUMMARY | 2021-12-28 14:14 | XMS_ITS | Encounter Summary ---
:1965 Author Organization [facility] Address [address] [place] [address] Care Team Providers Name Role Phone Tiffany Gonzalez APRN, GAIL Primary Care Provider Reason for Visit Reason Comments Refill Encounter Details Date Type Department Care Team Description 12/27/2010 Refill [facility] Tiffany Gonzalez, Refill [address] [place] [address] [address] [facility] [phone] [place], [place] [id number] (Wo rk) Social History Tobacco Use Types Packs/Day Years Used Date Smoking Tobacco: Every Day Cigarettes 0.5 Comments: Restarted 12/2005; prior to janice t stopped for 8 months Alcohol Use Standard Drinks/Week Comments Yes 0.8 (1 standard drink = 0.6 oz pure alco hol) rarely Sex Assigned at Date Recorded Not on file documented as of this encounter Nursing Notes [place] Kwan RN - 12/29/2010 11:04 AM CDT Patient transferring authorized Rx to different pharmacy. [place] Kwan RN 12/29/2010, 11:04 AM documented in this encounter Plan of Treatment Not on filedocumented as of this encounter Visit Diagnoses Not on filedocumented in this encounter Care Teams Aoc Operations Intelligence Officer Relationship Specialty Start Date End Date Tiffany Gonzalez APRN, DNP PCP - General 01/16/00 02/03/16 [address] [place] [id number] documented as of this encounter
--- OUTSIDE RECORDS SUMMARY | 2021-12-28 14:14 | XMS_ITS | Encounter Summary ---
:1965 Author Organization [facility] Address [address] [place] [address] Care Team Providers Name Role Phone Tiffany Gonzalez APRN, DNP Primary Care Provider Encounter Details Date Type Department Care Team Description 03/30/2011 Consent for [facility] IN FORMED CONSENT FOR Procedure/Treatment [facility] SLEEP/AUDIO/VIDEO [address] [place] [address] Social History Tobacco Use Types [...] Notes Interface, In Chrtscr And Scan - 04/03/2011 2:40 PM [facility] & PRESIDENT & PRESIDENT documented in this encounter Plan of Treatment Not on filedocumented as of this encounter Visit Diagnoses Not on filedocumented in this encounter Care Teams Wallpaper Scraper Relationship Specialty Start Date End Date Tiffany Gonzalez APRN, DNP PCP - General 01/16/00 02/03/16 [address] [place] [id number] documented as of this encounter
--- OUTSIDE RECORDS SUMMARY | 2021-12-28 14:14 | XMS_ITS | Encounter Summary ---
:1965 Author Organization [facility] Address [address] [place] [address] Care Team Providers Name Role Phone Tiffany Gonzalez APRN, DNP Primary Care Provider [phone] Reason for Visit Reason Onset Date Comments Refill 04/16/2011 Encounter Details Date Type Department Care Team Description 04/16/2011 Refill [facility] Tiffany Gonzalez, Refill [address] [place] [address] [address] [facility] [phone] [place] [id number] (Wo rk) Social History Tobacco Use Types [...] documented as of this encounter Nursing Notes Cheri Ordonez RN - 04/16/2011 10:24 AM CST per standing order Cheri Ordonez RN 04/16/2011, 10:24 AM SHED STOCK INSPECTOR Wade Mcgarry - 04/16/2011 10:20 AM CST Patient calling for refill. Patient is out of the medication. Please freire SHED STOCK INSPECTOR documented in this encounter Plan of Treatment Not on filedocumented as of this encounter Visit Diagnoses Diagnosis Asthma with exacerbation (HRC) - Primary Unspecified asthma, with exacerbation documented in this encounter Care Teams Coal Handling Supervisor Relationship Specialty Start Date End Date Tiffany Gonzalez APRN, DNP PCP - General 01/16/00 02/03/16 [address] [place] [id number] documented as of this encounter
--- OUTSIDE RECORDS SUMMARY | 2021-12-28 14:14 | XMS_ITS | Encounter Summary ---
:1965 Author Organization [id number] Address [address] [place] [address] Care Team Providers Name Role Phone Tiffany Gonzalez APRN, DNP Primary Care Provider [phone] Reason for Referral Specialty Diagnoses / Procedures Referred By Contact Refer red To Contact [facility] Darryn Fletcher MD [facility] [address] [place] [address] [place] [address] Fax: Referral ID Status Reason Start Date Expiration Date Visits Requ ested Visits Authorized Scheduling Instructions 1. Your provider has ordered a sleep stephanie dy. 2. You will either be scheduled for this procedure at check-out today, or the [facility] will contact you within to schedule this important test. 3. Please read through the Sleep Study p atient instructions packet that was provided to you. 4. On the night of your test, you should be prepared to stay up to 24 hours in case additional testing is necessary. 5. Based on the results of your overnigh t testing, you will receive further instructions from your technologist in t he morning as to the next steps in this process. 6. Based on the outcome of your sleep st udy, one of the following may happen: a. You may be asked to stay for the rest of the day for additional testing b. You may be able to receive your treat ment/equipment at an appointment later in the morning or within a few days after your sleep study with a home medical equipment company at a location near the sleep indira ter. At the time you receive your equipment, you will be scheduled for a follow-up vi sit with your provider about 6 to 8 weeks after you start treatment. c. You may be asked to schedule another sleep study to trial special equipment to help you sleep. d. You may need to schedule a follow-up visit 1 to 2 weeks after your test to discuss the results of your sleep study. At that appointment, you and your provider will determine the next steps. 7. Before you leave the Sleep Center in the morning, we will explain which option applies to you. 8. For any further questions about your sleep testing or treatment plan, please contact your provider. 9. It is highly recommended that you con tact your insurance provider to verify that you have coverage for your sleep study a nd home medical equipment (CPAP) if your study shows you do indeed have obstructi ve sleep apnea (TREMAINE). UNITY SERVICE AIDE Reason for Visit Reason Comments CONSULT sleep difficulty Encounter Details Date Type Department Care Team Description 03/19/2011 Office Visit [facility] Darryn Fletcher Slee p apnea (Primary Dx); [facility] Snoring; [address] Fatigue; [place] [address] [place], [place] Obesity [phone] [id number] Social History Tobacco Use Types Packs/Day Years [...] Sign Reading Time Taken Comments Blood Pressure 123/72 03/19/2011 1:02 PM COMMUNITY SERVICE AIDE Pulse 62 03/19/2011 1:02 PM COMMUNITY SERVICE AIDE Temperature - - Respiratory Rate - - Oxygen Saturation - - Inhaled Oxygen Concentration - - Weight 103.1 kg (227 lb 6.4 oz) 03/19/2011 1:02 PM COMMUNITY SERVICE AIDE Height 172.1 cm (5' 7.75) 03/19/2011 1:02 PM COMMUNITY SERVICE AIDE Body Mass Index 34.83 03/19/2011 1:02 PM COMMUNITY SERVICE AIDE documented in this encounter Patient Instructions Patient InstructionsDarryn Fletcher - 03/19/2011 1:28 PM CST Ms. Norman will have blood tests for thyroid function today and will be updated with the results through our office. She will not drive or engage in potentially dangerous activities if feeling sleepy. She will discuss weight loss issues with her primary physician. She will follow with Lisa Ludwig for her other neurological issues. She will continue to follow with her other care providers as scheduled. She will be scheduled for a sleep study and a follow up with me 1-2 weeks after the study to discussthe results. Al Fletcher MD UNITY SERVICE AIDE documented in this encounter Progress Notes Darryn Fletcher - 03/20/2011 2:09 PM COMMUNITY SERVICE AIDE Quick Note: Jitendra Shiela Lets notify the patient that Thyroid function tests are OK Lets proceed with the eval and f/u as scheduled. thanks Al Fletcher MD UNITY SERVICE AIDE Darryn Fletcher - 03/19/2011 11:41 AM CST PULMONARY/SLEEP CONSULT REFERRING PHYSICIAN: Lisa Ludwig Dear Lisa Sanchez had the opportunity to see Stephanie Norman in our clinic for loud snoring and witnessed episodes ofapnea. As you know the patient is a 46 year old R handed female with the following history: She has had snoring since years. She has had witnessed episodes of apnea since last 5-10 yrs. CURRENT SLEEP SCHEDULE: Time to go to bed: 22:00. Time it takes to fall asleep: 30 min. Wakes up 3-4 times a night. Reason for awakenings: does not know. Can go back to sleep again in few minutes. She snores loudly. Her partner had to leave the rooms sometimes. Does have witnessed episodes of apnea. Wakes up in the morning at 6:30 am alarm then gets out of bed at 7 am. She does not feel rested. During the rest of the day she feels tired. She does not take naps. She does not fall asleep while inactive such as while watching TV or reading a book. She does not fall asleep inappropriately while talking to other people or driving. Her sleeping environment is comfortable. Caffeine use is: 1 cup of a day. SLEEP REVIEW OF SYSTEMS: Negative for symptoms of narcolepsy, sleep paralysis, cataplexy, hypnagogic/hypnopompic hallucinations, REM behavior disorder or sleep walking. She rarely has symptoms of Restless legs. She does breathe comfortably from her nose. She did not have a history of fractures or surgery to the nose. She did not have a history of tonsillectomy and adenoidectomy. She does not complain of any pain disrupting her sleep. NEUROLOGICAL REVIEW OF SYSTEMS: Negative for recent head trauma, loss of consciousness, double vision, loss of vision, loss of hearing, speech or swallowing difficulties. Negative for weakness or numbness on the face, arms or legs suggestive of a CVA/TIA. Negative bowel or bladder incontinence, or diffuse muscle pain. Negative for chest pain, shortness of breath, nausea, vomiting, fever or chills. In terms of wt changes from our chart notes, and graphs, wt has been stable around 225 lb range overthe past year or so. In terms of depression or anxiety she feels OK. Celexa helps. Her periods are regular. She is not planning to become in the near future. She is not breast feeding. She will contact our office or her primary physicians office immediately if she finds herself to be , or decides to become . PAST MEDICAL HISTORY: Past Medical History Diagnosis [...] 305.1 ??? PMDD (Premenstrual Dysphoric Disorder) 625.4AA Past Surgical History Procedure Date ? ? Hysteroscpy surg; w/bx &/ polypect 03/31/04 ??? Appendectomy 04-07-2010 ALLERGIES: Amoxicillin, Penicillins, Neomycin and Beta adrenergic blockers CURRENT MEDICATIONS: Current outpatient prescriptions Medication Sig ??? acetaminophen (TYLENOL EXTRA STRENGTH) 500 MG tablet Take 500-1,000 mg by mouth every 4 hours asneeded. ??? ALBUterol 2.5 mg/3 mL, 0.083%, nebulizer solution Inhale 3 mL by mouth 4 times a day as needed for Wheezing. ??? 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 The head was normal without signs of trauma. The eyes were normal. Thesclerae were nonicteric. Evaluation of the mouth and throat revealed a narrow oropharynx. Evaluationof the cardiovascular system revealed a rhythmic regular heart rate without murmurs. The lungs were clear to auscultation bilaterally. The patient is obese. Mini-Mental Status Examination: The patient was awake, alert and oriented times 3. Speech, naming, repeating, color naming and reading were intact. The patient was able to spell WORLD forwards and backwards correctly. Short-term memory was 3/3. The patient was able to follow 3/3 commands correctly. Hand writing and copying of intersecting pentagons was not done. Cranial nerves: Were Normal. The pupils were equal, round and reacting to light. The visual anna were intact bilaterally. Fundoscopic exam did not reveal papilledema. The external ocular muscles wereintact. There was no nystagmus. Sensations and mimics are intact on face to all modalities. Hearing was intact bilaterally. The soft palate was upgoing bilaterally. Neck movements and tongue movements were normal. Motor examination: Was Normal. There was no pronator drift. Fine finger movements were intact. Therewas no tremor, asterixis, chorea, cog wheeling, or other abnormal involuntary movements. The muscle tone was normal. The strength was 5/5 X 4. Coordination: Was Normal. Akdmcu-dmxw-dvmgfz, rapid alternating movement and heel knee robles tests were intact bilaterally. Sensory examination: Was Normal. Light touch, pinprick, position, vibration and temperature senses were intact bilaterally. Gait: Was Normal. Tandem, tiptoe, heel walking tests were normal. Romberg test was negative. Reflexes: 2 on both upper extremities, 2 on both knees, 2 on both ankles. Babinski: Toes were down going bilaterally. DIAGNOSES: 1. Sleep apnea (780.57B) 2. Snoring (786.09AN) 3. Fatigue (780.79B) 4. Obesity (278.00L) ASSESSMENT: The patient has a hx of snoring and witnessed episodes of apnea She has the body habitus conducive of TREMAINE. I discussed the pathophysiology of sleep apnea with the patient including TREMAINE being a risk factor for Cardiovascular/Cerebrovascular disease, and recommended obtaining a sleep study which she agreed todo. I also discussed with the patient that her weight may be a contributing factor to her sleep disordered breathing, and she may want to discuss weight loss issues with her primary physician. Her thyroid levels will be checked as well. After detailed discussion with the patient, the following plan was agreed upon: PLAN: Patient Instructions Ms. Norman will have blood tests for thyroid function today and will be updated with the results through our office. She will not drive or engage in potentially dangerous activities if feeling sleepy. She will discuss weight loss issues with her primary physician. She will follow with Lisa Ludwig for her other neurological issues. She will continue to follow with her other care providers as scheduled. She will be scheduled for a sleep study and a follow up with me 1-2 weeks after the study to discussthe results. Al Fletcher MD I discussed all the above with the patient who was agreeable with the plans. Thank you very much for having me to participate in Stephanie Norman care. Please feel free to contactme with any further questions you may have. Sincerely, Al Fletcher MD CC: Lisa Ludwig CNP UNITY SERVICE AIDE documented in this encounter Plan of Treatment Scheduled Referrals Name Type Priority Associated Diagnoses Order S chedule SLEEP STUDY - SPLIT Referral Routine Sleep apnea Ordered: 03/19/2011 NIGHT Snoring Fatigue documented as of this encounter Procedures Procedure Name Priority Date/Time Associated Diagnosis Comme nts FREE T4 Routine 03/19/2011 1:35 PM Sleep apnea Results for this COMMUNITY SERVICE AIDE Snoring procedure are in Fatigue the results Obesity section. TSH, SENSITIVE Routine 03/19/2011 1:35 PM Sleep apnea Results for this (WITH REFLEX) COMMUNITY SERVICE AIDE Snoring procedure are in Fatigue the results Obesity section. documented in this encounter Results TSH, SENSITIVE (WITH REFLEX) (03/19/2011 1:35 PM COMMUNITY SERVICE AIDE) athologist Signature TSH, with 2.527 0.300 - [facility] Reflex 5.00 uIU/ml Specimen Anatomical Collection Method Collection Time Receive d Time (Source) Location / / Volume Laterality 03/19/2011 1:35 PM 1 1:41 COMMUNITY SERVICE AIDE PM COMMUNITY SERVICE AIDE Darryn Fletcher MD LAB_1 Performing Organization Address City/[facility] Phon e Number [facility] [phone] [address] FREE T4 (03/19/2011 1:35 PM COMMUNITY SERVICE AIDE) athologist Signature T4, Free 1.0 0.8 - 2.2 [facility] ng/dl Specimen Anatomical Collection Method Collection Time Receive d Time (Source) Location / / Volume Laterality 03/19/2011 1:35 PM 1 1:41 COMMUNITY SERVICE AIDE PM COMMUNITY SERVICE AIDE Darryn Fletcher MD LAB_1 Performing Organization Address [facility] Phon e Number [facility] [phone] [address] documented in this encounter Visit Diagnoses Diagnosis Sleep apnea - Primary Unspecified sleep apnea Snoring Other dyspnea and respiratory abnormalit y Fatigue Other malaise and fatigue Obesity (HRC) Obesity, unspecified documented in this encounter Care Teams Health Care Coach Relationship Specialty Start Date End Date Tiffany Gonzalez APRN, DNP PCP - General 01/16/00 02/03/16 [address] [place] [id number] documented as of this encounter
--- OUTSIDE RECORDS SUMMARY | 2021-12-28 14:14 | XMS_ITS | Encounter Summary ---
:1965 Author Organization [facility] Address [address] [place] [address] Care Team Providers Name Role Phone Haylee Alansi APRN, CNP Primary Care Provider Encounter Details Date Type Department Care Team Description 04/15/2011 Correspondence None Inactive, Provider PAP EQU IPMENT [...] on filedocumented in this encounter Care Teams Coating Mixer Relationship Specialty Start Date End Date Haylee Alanis APRN, SHOE REPAIRMAN PCP - General Nurse Practitioner 02/04/[address] [place] [address] documented as of this encounter
--- OUTSIDE RECORDS SUMMARY | 2021-12-28 14:14 | XMS_ITS | Encounter Summary ---
:1965 Author Organization [facility] Address [address] [place] [address] Care Team Providers Name Role Phone Tiffany Gonzalez APRN, DNP Primary Care Provider Encounter Details Date Type Department Care Team Description 05/18/2011 Imaging [facility] Ankle pain [address] [place], [place] [id number] Social History Tobacco Use Types Packs/Day Years [...] Priority Date/Time Associated Diagnosis Comme nts XR ANKLE LT 3 VIEWS Routine 05/18/2011 11:07 AM Ankle pain R esults for this RADIOLOGIC TECHNOLOGIST procedure are i n the results section. documented in this encounter Results XR ANKLE AP/MO/LAT 3 VIEWS LEFT (05/18/2011 11:07 AM RADIOLOGIC TECHNOLOGIST) Anatomical Region Laterality Modality Lower Extremity, Ankle, Foot & Ankle Com puted Radiography Specimen (Source) Anatomical Collection Method Collection Time Re ceived Time Location / / Volume Laterality 05/18/2011 11:07 AM RADIOLOGIC TECHNOLOGIST Narrative 05/18/2011 11:24 AM RADIOLOGIC TECHNOLOGIST XR ANKLE AP/MO/LAT 3VWS LT May 18, 2011 11:07:00 AM INDICATION: Trauma, lateral pain COMPARISON: None FINDINGS: There is a well-corticated oss eous density along the medial aspect of the distal fibula, likely an u nfused accessory ossicle or the result of remote trauma. No acute fractu re is seen. Procedure Note Chiara Rosa - 05/18/2011 XR ANKLE AP/MO/LAT 3VWS LT May 18, 2011 11:07:00 AM INDICATION: Trauma, lateral pain COMPARISON: None FINDINGS: There is a well-corticated oss eous density along the medial aspect of the distal fibula, likely an u nfused accessory ossicle or the result of remote trauma. No acute fractu re is seen. Vivek Gibson MD RAD GD documented in this encounter Visit Diagnoses Diagnosis Ankle pain Pain in joint, ankle and foot documented in this encounter Care Teams Hole Digger Operator Relationship Specialty Start Date End Date Tiffany Gonzalez APRN, DNP PCP - General 01/16/00 02/03/16 [address] [place] [id number] documented as of this encounter
--- OUTSIDE RECORDS SUMMARY | 2021-12-28 14:14 | XMS_ITS | Encounter Summary ---
:1965 Author Organization [facility] Address [address] [place] [address] Care Team Providers Name Role Phone Tiffany [...] Notes Interface, In Chrtscr And Scan - 04/24/2011 11:38 AM ASSEMBLY INSTRUCTIONS WRITER MBLY INSTRUCTIONS WRITER documented in this encounter Plan of Treatment Not on filedocumented as of this encounter Visit Diagnoses Not on filedocumented in this encounter Care Teams Paint Spraying Machine Operator Helper Relationship Specialty Start Date End Date Tiffany Gonzalez APRN, GAIL PCP - General 01/16/00 02/03/16 [address] [place] [id number] documented as of this encounter
--- OUTSIDE RECORDS SUMMARY | 2021-12-28 14:15 | XMS_ITS | Encounter Summary ---
:1965 Author Organization [facility] Address [address] [place] [address] Care Team Providers Name Role Phone Tiffany Gonzalez APRN, GAIL Primary Care Provider Reason for Visit Reason Comments COUGH x 10 days, pt c/o wheezing w hen taking deep breath SWELLING, KNEE Pt c/o right knee poped out 03/10/10 and c/o swelling, pt states she been icing/heat since that t supa Encounter Details Date Type Department Care Team Description 03/18/2010 [facility]hma with exacerbation (Pr imary Dx); [address] Tiffany Still APRN, Bronchitis; [place] [address] [facility] Tobacco use disorder; [phone] [address] [place] [address] (Wo rk) Social History Tobacco Use Types [...] Sign Reading Time Taken Comments Blood Pressure 124/84 03/18/2010 11:08 AM FILTER CHANGING TECHNICIAN Pulse 77 03/18/2010 11:08 AM FILTER CHANGING TECHNICIAN Temperature 36.7 ??C (98.1 ??F) 03/18/2010 11:08 AM FILTER CHANGING TECHNICIAN Respiratory Rate - - Oxygen Saturation 94% 03/18/2010 11:08 AM FILTER CHANGING TECHNICIAN Inhaled Oxygen Concentration - - Weight - - Height - - Body Mass Index - - documented in this encounter Patient Instructions Patient InstructionsTiffany Gonzalez - 03/18/2010 11:30 AM CST Xray and lab results will be released to you online For now: take Zpak, prednisone and robitussin as needed. Continue to use your proair inhaler. Follow up with Tiffany Gonzalez NP Wednesday. Follow up sooner with worsening breathing symptoms. Make appointment to see Dr.Allen Garcia for Primary Care Ortho/ Sports medicine consult for R kneeinjury ER CHANGING TECHNICIAN documented in this encounter Progress Notes Tiffany Gonzalez - 03/18/2010 12:06 PM CST S: Stephanie Norman is a 45 yr old female presents with Chief Complaint Patient presents with ??? COUGH x 10 days, pt c/o wheezing when taking deep breath ??? SWELLING, KNEE Pt c/o right knee poped out 03/10/10 and c/o swelling, pt states she been icing/heat since that time Cough 10-day(s) history of wheezing, using albuterol daily. Associated symptoms include dyspnea. Patient does not report chest pain, colored nasal drainage, fever, headache, pain in the both ear(s) andsore throat. Symptoms are not improving. Also, on 03/10/10 she bent down in a store and heard R knee pop. It happened again later that night. Since, there's been pain and a tightness in the knee. Using tylenol/heat but no improvement. Concerned about this. No previous knee injury. History Substance Use Topics ??? Tobacco Use: Yes -- 0.5 packs/day Restarted 12/2005; prior to that stopped for 8 months ??? Alcohol Use: 0.5 oz/week 1 Can(s) of beer per week rarely Patient Active Problem List Diagnoses Code ??? 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 REFLUX ESOPHAGITIS 530.11 ??? POLYCYSTIC KIDNEY, UNSPEC 753.12 ??? HYPERTENSION NOS 401.9 ??? ENDOMETRIAL POLYP 621.0 ??? ALLERGIC RHINITIS NOS 477.9 ??? ASTHMA, UNSPECIFIED 493.90 ??? Hypercholesterolemia with Hyperglyceridemia 272.2BP ??? Tobacco Use Disorder 305.1 ??? PMDD (Premenstrual Dysphoric Disorder) 625.4AA Current outpatient prescriptions Medication Sig ??? citalopram (CELEXA) 40 MG tablet Take 1 Tab by mouth daily. ??? CLARITIN 10 MG OR TABS 1 TABLET DAILY ??? FISH OIL 1000 MG OR CAPS 1 capsule daily ??? fluticasone (FLONASE) 50 MCG/ACT nasal suspension 1 to 2 sprays in each nostril once daily as directed ??? LISINOPRIL 20 MG OR TABS Take one tablet by mouth every day. ??? PRILOSEC 20 MG OR CPDR Take one capsule by mouth every day. ??? simvastatin (AKA ZOCOR) 40 MG tablet Take 0.5 Tabs by mouth daily at bedtime. ??? TRAZODONE HCL 100 MG OR TABS Take one half to one tablet by mouth at bedtime. ??? VENTOLIN HFA 108 (90 BASE) MCG/ACT inhaler Inhale 2 puffs by mouth every 4-6 hrs as needed for breathing difficulties ??? VITAMIN B COMPLEX OR 1 daily ??? VITAMIN C 500 MG OR TABS 2 tablets daily in cold season O: BP 124/84 Pulse 77 Temp 98.1 ??F (36.7 ??C) SpO2 94% PF 450 L/min General Appearance : Female in No Acute Distress. Skin: cyanosis absent, rash absent. HEENT: Head: atraumatic, normocephalic; Eyes: Conjunctival erythema: absent Ears: within normal limits bilateral Nose: edmatous mucosa; Throat: WNL Neck: supple without mass, adenopathy, or thyromegaly Heart: regular rate and rhythm Lungs: positive findings: wheezing all lung anna CBC: slight shift bacterial CXR: My independant review of xray shows no significant abnormalities Gait is balanced and smooth. The knees appear symmetric and free of deformity or atrophy. There is no tenderness. There is increased warmth to lateral R joint line. There is no effusion. Range of motion is minimally limited, feels tight but pain-free. All ligaments are stable. Muscle strength is notreduced A: Encounter Diagnoses Code Name Primary? Qualifier ??? 493.92A Asthma with exacerbation Yes ??? 490G Bronchitis ??? 305.1 Tobacco use disorder ??? 959.7E Knee injury P: See pt instructions for plan/details. ER CHANGING TECHNICIAN documented in this encounter Plan of Treatment Not on filedocumented as of this encounter Procedures Procedure Name Priority Date/Time Associated Diagnosis Comme nts COMPLETE BLOOD Waiting 03/18/2010 11:36 AM Asthma with Result s for this COUNT-W/DIFF FILTER CHANGING TECHNICIAN exacerbation procedure are in Bronchitis the results section. documented in this encounter Results XR CHEST 2 VIEW ROUTINE (03/18/2010 12:13 PM FILTER CHANGING TECHNICIAN) Anatomical Region Laterality Modality Chest, Lung Computed Radiography Specimen (Source) Anatomical Collection Method Collection Time Re ceived Time Location / / Volume Laterality 03/18/2010 12:13 PM FILTER CHANGING TECHNICIAN Narrative 03/18/2010 1:21 PM FILTER CHANGING TECHNICIAN XR CHEST PA/AP AND LAT 2VWS Mar 18, 2010 12:13:00 PM INDICATION: Cough COMPARISON: None FINDINGS: Linear atelectasis or scarring in the lingula. The remainder of the lung anna are clear. Heart size is normal. No pleural effusions. Degenerative change in the spine. Procedure Note Chiara Rosa - 03/18/2010 XR CHEST PA/AP AND LAT 2VWS Mar 18, 2010 12:13:00 PM INDICATION: Cough COMPARISON: None FINDINGS: Linear atelectasis or scarring in the lingula. The remainder of the lung anna are clear. Heart size is normal. No pleural effusions. Degenerative change in the spine. Tiffany Gonzalez HOT POND OPERATOR, DNP RAD GD (ABNORMAL) HEMOGRAM/PLTS/DIFF (03/18/2010 11:36 AM FILTER CHANGING TECHNICIAN) [facility] Method Time Signature WBC 9.2 4.0 - [facility] 11.0 k/ul RBC 4.00 4.0 - 5.2 [facility] M/ul Hemoglobin 12.7 12.0 - [facility] 16.0 g/dl HCT 35.4 (L) 36.0 - [facility] 46.0 % MCV 89.0 80 - 100 [facility] fl MCH 31.6 26 - 34 [facility] pg MCHC 35.7 32 - 36 [facility] g/dl RDW 10.1 (L) 11.5 - [facility] 14.5 % Platelets 389 150 - 450 [facility] k/ul PMN/Band 74 (H) 43 - 72 % [facility] Lymph 19 17 - 43 % [facility] Sarpy 5 4 - 12 % [facility] Eos 2 0 - 8 % [facility] Baso 0 0 - 1 % [facility] Neutrophil 6.8 1.8 - 7.7 [facility] Absolute k/ul Lymph Absolute 1.7 1.0 - 4.8 [facility] k/ul Sarpy Absolute 0.5 0.1 - 0.7 [facility] k/ul Eos Absolute 0.2 0.0 - 0.5 [facility] k/ul Baso Absolute 0.0 0.0 - 0.2 [facility] k/ul Specimen Anatomical Collection Method Collection Time Receive d Time (Source) Location / / Volume Laterality 03/18/2010 11:36 03/18/2010 AM FILTER CHANGING TECHNICIAN 12:00 PM FILTER CHANGING TECHNICIAN Tiffany Gonzalez APRN, DNP LAB_1 Performing Organization Address City/State/ZIP Code Phon e Number [facility] [phone] [facility] [address] [id number] documented in this encounter Visit Diagnoses Diagnosis Asthma with exacerbation ([facility]) - Primary Unspecified asthma, with exacerbation Bronchitis Bronchitis, not specified as acute or ch ronic Tobacco use disorder ([facility]) Tobacco use disorder Knee injury Injury, other and unspecified, knee, leg , ankle, and foot Asthma with exacerbation ([facility]) Unspecified asthma, with exacerbation Bronchitis Bronchitis, not specified as acute or ch ronic Tobacco use disorder ([facility]) Tobacco use disorder documented in this encounter Care Teams Aerodynamics Teacher Relationship Specialty Start Date End Date Tiffany Gonzalez APRN, DNP PCP - General 01/16/00 02/03/16 [address] [id number] documented as of this encounter
--- OUTSIDE RECORDS SUMMARY | 2021-12-28 14:15 | XMS_ITS | Encounter Summary ---
:1965 Author Organization [facility] Address [address] [place] [address] Care Team Providers Name Role Phone Tiffany Gonzalez APRN, DNP Primary Care Provider Reason for Visit Reason Comments ALLERGY SHOT Encounter Details Date Type Department Care Team Description 06/28/2009 Office Visit [facility] 401 Need for Desensitization to Allergy Clinic Allergens (Primary Dx) [address] [place] [address] Social History Tobacco Use Types Packs/Day Years Used Date Smoking Tobacco: Every Day Cigarettes 0.5 Comments: Restarted 12/2005; prior to janice t stopped for 8 months Alcohol Use Standard Drinks/Week Comments Yes 0.8 (1 standard drink = 0.6 oz pure alco hol) rarely Sex Assigned at Date Recorded Not on file documented as of this encounter Progress Notes Celsa Meredith E - 06/28/2009 3:10 PM CST S Stephanie Norman here for allergy injection(s). O The following information has been verified with tSephanie Norman 1. Have you had any type of reaction following the last allergy injection? No 2. Moderate to severe illness today?: No 3. Are you taking Beta Joey medications? (these can be prescribed for blood pressure and heart condition, headaches (migraine), glaucoma including eye drops, or stage fright) No 4. Are you taking antidepressant medications (MAO inhibitors)? No 5. If you are on venom injections, have you been stung? No 6. Do you have a dental appointment today? No 7. Have you received or are you scheduled to receive any other injections today? No 8. Have you exercised within the past hour or are you planning to exercise in the next hour? No 9. Are you ? No 10. How many allergy injections given this date? 1 A Patient meets criteria for allergy injections? YES P See allergy shot record for full documentation of allergy shot(s) given today Celsa Meredith RN E FIGHTER documented in this encounter Plan of Treatment Not on filedocumented as of this encounter Visit Diagnoses Diagnosis Need for desensitization to allergens - Primary documented in this encounter Care Teams Boat Person Relationship Specialty Start Date End Date Tiffany Gonzalez APRN, DNP PCP - General 01/16/00 02/03/16 [address] [place] [id number] documented as of this encounter
--- OUTSIDE RECORDS SUMMARY | 2021-12-28 14:15 | XMS_ITS | Encounter Summary ---
:1965 Author Organization [facility] Address [address] [place] [address] Care Team Providers Name Role Phone Tiffany Gonzalez APRN, DNP Primary Care Provider [phone] Reason for Visit Reason Comments ALLERGY SHOT Encounter Details Date Type Department Care Team Description 07/05/2009 [facility] Need for Desensitization to Allergy Clinic Allergens (Primary Dx) [address] [place] [address] Social History Tobacco Use Types [...] encounter Progress Notes Celsa Meredith E - 07/05/2009 2:49 PM CDT S Stephanie Norman here for allergy injection(s). O The following information has been verified with Stephanie Norman 1. Have you had any type [...] allergy shot(s) given today Celsa Meredith RN documented in this encounter Plan of Treatment Not on filedocumented as of this encounter Visit Diagnoses Diagnosis Need for desensitization to allergens - Primary documented in this encounter Care Teams Rehabilitation Team Lead Relationship Specialty Start Date End Date Tiffany Gonzalez APRN, DNP PCP - General 01/16/00 02/03/16 [address] [place] [id number] documented as of this encounter
--- OUTSIDE RECORDS SUMMARY | 2021-12-28 14:15 | XMS_ITS | Encounter Summary ---
:1965 Author Organization [facility] Address [address] [place] [address] Care Team Providers Name Role Phone Tiffany Gonzalez APRN, GAIL Primary Care Provider Reason for Visit Reason Comments ALLERGY SHOT Encounter Details Date Type Department Care Team Description 01/08/2010 [facility] Need for Desensitization to Allergy Clinic Allergens (Primary Dx) [address] [place] [address] Social History Tobacco Use Types Packs/Day Years Used Date Smoking Tobacco: Every Day Cigarettes 0.5 Comments: Restarted 12/2005; prior to janice t stopped for 8 months Alcohol Use Standard Drinks/Week Comments Yes 0.8 (1 standard drink = 0.6 oz pure alco hol) rarely Sex Assigned at Date Recorded Not on file documented as of this encounter Progress Notes Nelly Ludwig RN - 01/08/2010 2:33 PM CDT S Stephanie Norman here for [...] full documentation of allergy shot(s) given today Nelly Ludwig RN documented in this encounter Plan of Treatment Not on filedocumented as of this encounter Visit Diagnoses Diagnosis Need for desensitization to allergens - Primary documented in this encounter Care Teams Menswear Salesperson Relationship Specialty Start Date End Date Tiffany Gonzalez APRN, DNP PCP - General 01/16/00 02/03/16 [address] [place] [id number] documented as of this encounter
--- OUTSIDE RECORDS SUMMARY | 2021-12-28 14:15 | XMS_ITS | Encounter Summary ---
:1965 Author Organization [facility] Address [address] [place] [address] Care Team Providers Name Role Phone Tiffany Gonzalez APRN, DNP Primary Care Provider Reason for Visit Reason Comments ALLERGY SHOT Encounter Details Date Type Department Care Team Description 03/20/2009 Office Visit [facility] 401 Need for Desensitization to Allergy Clinic Allergens (Primary Dx) [address] [place] [address] Social History Tobacco Use Types Packs/Day Years Used Date Smoking Tobacco: Every Day Cigarettes 0.5 Comments: Restarted 12/2005; prior to janice t stopped for 8 months Alcohol Use Standard Drinks/Week Comments Yes 0.8 (1 standard drink = 0.6 oz pure alco hol) rarely Sex Assigned at Date Recorded Not on file documented as of this encounter Progress Notes Nelly Ludwig - 03/20/2009 1:15 PM CST S Stephanie Norman here for [...] allergy shot(s) given today Nelly Ludwig RN E ALPINE documented in this encounter Plan of Treatment Not on filedocumented as of this encounter Visit Diagnoses Diagnosis Need for desensitization to allergens - Primary documented in this encounter Care Teams Information Operator Relationship Specialty Start Date End Date Tiffany Gonzalez APRN, DNP PCP - General 01/16/00 02/03/16 [address] [place] [id number] documented as of this encounter
--- OUTSIDE RECORDS SUMMARY | 2021-12-28 14:15 | XMS_ITS | Encounter Summary ---
:1965 Author Organization [facility] Address [address] [place] [address] Care Team Providers Name Role Phone Marcelo Gonzalez APRN, DNP Primary Care Provider [phone] Reason for Visit Reason Onset Date Comments Refill 06/18/2009 Encounter Details Date Type Department Care Team Description 06/18/2009 Refill [facility] Marcelo Gonzalez, Refill [address] [place] [address] [address] [facility] [phone] [place] [id number] (Wo rk) Social History Tobacco Use Types Packs/Day Years Used Date Smoking Tobacco: Every Day Cigarettes 0.5 Comments: Restarted 12/2005; prior to janice t stopped for 8 months Alcohol Use Standard Drinks/Week Comments Yes 0.8 (1 standard drink = 0.6 oz pure alco hol) rarely Sex Assigned at Date Recorded Not on file documented as of this encounter Nursing Notes María Barboza - 06/18/2009 3:06 PM CSTApproved Prescriptions: Disp Refills citalopram (CELEXA) 40 MG tablet 3mos 0Sig: One by mouth every dayAuthorizing Provider: MARCELO GONZALEZ User: MARÍA BARBOZA DESK ASSISTANT María Barboza - 06/18/2009 3:06 PM CST One refill. Due for OV before next refill DESK ASSISTANT Veda Tripp - 06/18/2009 1:25 PM CST Last fill on 05/13/09 for a quantity of 90 DESK ASSISTANT documented in this encounter Plan of Treatment Not on filedocumented as of this encounter Visit Diagnoses Not on filedocumented in this encounter Care Teams Leak Operator [employer]affin [employer] Relationship Specialty Start Date End Date Marcelo Gonzalez APRN, DNP PCP - General 01/16/00 02/03/16 [address] [place] [id number] documented as of this encounter
--- OUTSIDE RECORDS SUMMARY | 2021-12-28 14:15 | XMS_ITS | Encounter Summary ---
:1965 Author Organization [facility] Address [address] [place] [address] Care Team Providers Name Role Phone Tiffany Gonzalez APRN, DNP Primary Care Provider Reason for Visit Reason Comments Follow-up, NOS cough, fatigue, nausea with vomiting x 1 03/27/10, has just taken liquids since Encounter Details Date Type Department Care Team Description 03/28/2010 Office Visit [facility] Lisa, Maegan (Primary Dx); [address] Tiffany Still APRN, Body aches; [place] [address] [facility] Sore throat; [phone] [address] [place] [address] (Wo rk) Social History Tobacco Use Types [...] Sign Reading Time Taken Comments Blood Pressure 112/78 03/28/2010 10:49 AM ICING MAKER Pulse 71 03/28/2010 10:49 AM ICING MAKER Temperature 36.7 ??C (98 ??F) 03/28/2010 10:49 AM ICING MAKER Respiratory Rate - - Oxygen Saturation 96% 03/28/2010 10:49 AM ICING MAKER Inhaled Oxygen Concentration - - Weight 100.7 kg (222 lb) 03/28/2010 10:49 AM ICING MAKER Height - - Body Mass Index 34.51 09/30/2009 9:27 AM CDT documented in this encounter Patient Instructions Patient InstructionsTiffany Gonzalez APRN, DNP - 03/28/2010 11:59 AM ICING MAKER It seems as though you have a new viral illness on top of recovering from bronchitis. I would rest as much as possible, push fluids. For the airways, there is still some tightness. Would recommend using Qvar for the next 2mos. In general, I'm happy to see you. I know you've been here a fair amount. To keep close tabs on you Iwould recommend a follow up visit in 2wks. If you feel significantly better, and feel the visit unnecessary, then you don't have to. G MAKER documented in this encounter Progress Notes Tiffany Gonzalez APRN, DNP - 03/28/2010 1:03 PM CST S: Stephanie Norman is a 45 yr old female presents with Chief Complaint Patient presents with ??? Follow-up, NOS cough, fatigue, nausea with vomiting x 1 03/27/10, has just taken liquids since Was being followed recently for bronchitis. Was actually feeling much better on March 23. Had finished Z-Joel and prednisone. Then on March 24 she had sudden onset of body aches nausea one episode of vomiting and decreased appetite. Complaining of feeling extremely fatigued. Frustrated because she was feeling much better. A recent chest x-ray did not show pneumonia. Denies any fever over 101. There is still a cough but nonproductive. She is using albuterol inhaler as needed. Not using oral steroid inhaler. History Substance Use Topics ??? Tobacco Use: [...] 625.4AA Current outpatient prescriptions Medication Sig ??? ALBUterol 2.5 mg/3 mL, 0.083%, nebulizer solution Inhale 3 mL by mouth 4 times a day as needed for Wheezing. ??? beclomethasone (QVAR) 80 MCG/ACT inhaler Inhale 1 Puff by mouth two times a day. Rinse mouth after use ??? citalopram (CELEXA) 40 MG tablet Take 1 Tab by mouth daily. ??? CLARITIN 10 MG OR TABS 1 TABLET DAILY ??? FISH OIL 1000 MG OR CAPS 1 capsule daily ??? fluticasone (FLONASE) 50 MCG/ACT nasal suspension 1 to 2 sprays in each nostril once daily as directed ??? guaifenesin-codeine (GUAIFENESIN AC) 100-10 MG/5ML solution Take 10 mL by mouth daily at bedtime. May repeat x 1 in 2 hrs if no effect. ??? LISINOPRIL 20 MG OR TABS Take [...] tablets daily in cold season O: BP 112/78 Pulse 71 Temp 98 ??F (36.7 ??C) Wt 222 lb (100.699 kg) SpO2 96% PF 460 L/min Constitutional: tired appearing in NAD Eyes: no conjunctival erythema or edema, no drainage ENT:TMS without erythema/edema/ good landmarks with positive light reflex, nasal turbinates with erythema and edema, pharynx with slight erythema but no edema or exudate. There is no periorbital inflammation. Lymph: there is no cervical lymphadenopathy Cardiac: S1,S2 no murmur,gallop or rub Lungs: no rales, scattered expiratory wheezes posterior RSS: neg CBC: no elevated WBC, no viral shift indicative of mono A: Encounter Diagnoses Code Name Primary? Qualifier ??? 780.79B Fatigue Yes ??? 780.96BM Body aches ??? 462AA Sore throat ??? 493.90J Bronchial asthma P: Qvar oral inhaler. Symptomatic treatment.See pt instructions for plan/details. optichamber devicegiven and told how to use in exam room Patient Instructions It seems as though you have a new viral illness on top of recovering from bronchitis. I would rest as much as possible, push fluids. For the airways, there is still some tightness. Would recommend using Qvar for the next 2mos. In general, I'm happy to see you. I know you've been here a fair amount. To keep close tabs on you Iwould recommend a follow up visit in 2wks. If you feel significantly better, and feel the visit unnecessary, then you don't have to. G MAKER documented in this encounter Nursing Notes 03/28/2010 10:20 AM CST >> Tiffanie Kee LPN WedApr 07, 2010 1:16 PM Neb treatment given. >> Tiffanie Kee LPN WedMar 28, 2010 10:53 AM Peak flows were 450, 460 &430 today. Tiffanie Kee LPN documented in this encounter Plan of Treatment Not on filedocumented as of this encounter Procedures Procedure Name Priority Date/Time Associated Diagnosis Comme nts COMPLETE BLOOD Waiting 03/28/2010 11:27 AM Bronchial as thma Results for this COUNT-W/DIFF ICING MAKER Fatigue procedure are in Body aches the results section. STREP GRP A, RAPID Waiting 03/28/2010 11:27 AM Sore thro at Results for this SCREEN ICING MAKER Fatigue procedure are in Body aches the results section. STREP GRP A, THROAT Routine 03/28/2010 11:27 AM R esults for this CULTURE ONLY ICING MAKER procedure are i n the results section. MONO IF Waiting 03/28/2010 11:27 AM Fatigue Results for this ICING MAKER Body aches procedure are i n the results section. documented in this encounter Results STREP GRP A, THROAT CULTURE ONLY (03/28/2010 11:27 AM ICING MAKER) Patholo gist Method Time Signature Grp A Culture Negative NEG [facility] Final Specimen Anatomical Collection Method Collection Time Receive d Time (Source) Location / / Volume Laterality 03/28/2010 11:27 03/28/2010 AM ICING MAKER 11:39 AM ICING MAKER Tiffany Gonzalez APRN, DNP LAB_1 Performing Organization Address [facility] Phon e Number EXFO [phone] [facility] [address] [place] [phone] STREP GRP A, RAPID SCREEN (03/28/2010 11:27 AM ICING MAKER) [facility] gist Method Time Signature Grp A Rapid Negative NEG [facility] Screen Specimen Anatomical Collection Method Collection Time Receive d Time (Source) Location / / Volume Laterality 03/28/2010 11:27 03/28/2010 AM ICING MAKER 11:39 AM ICING MAKER Tiffany Gonzalez APRN, DNP LAB_1 Performing Organization Address [facility] Phon e Number EXFO [phone] [facility] [address] [place] [phone] MONO IF (03/28/2010 11:27 AM ICING MAKER) Patholo gist Method Time Signature Gentry If Gentry Test Not [facility] Indicated Specimen Anatomical Collection Method Collection Time Receive d Time (Source) Location / / Volume Laterality 03/28/2010 11:27 03/28/2010 AM ICING MAKER 11:39 AM ICING MAKER Tiffany Gonzalez APRN, DNP LAB_1 Performing Organization Address [facility] Phon e Number EXFO [phone] [facility] [address] [place] [phone] (ABNORMAL) HEMOGRAM/PLTS/DIFF (03/28/2010 11:27 AM ICING MAKER) [facility] Method Time Signature WBC 8.6 4.0 - [facility] 11.0 k/ul RBC 4.34 4.0 - 5.2 [facility] M/ul Hemoglobin 13.7 12.0 - [facility] 16.0 g/dl HCT 39.2 36.0 - [facility] 46.0 % MCV 90.0 80 - 100 [facility] fl MCH 31.4 26 - 34 [facility] pg MCHC 34.8 32 - 36 [facility] g/dl RDW 10.2 (L) 11.5 - [facility] 14.5 % Platelets 354 150 - 450 [facility] k/ul PMN/Band 77 (H) 43 - 72 % [facility] Lymph 15 (L) 17 - 43 % [facility] Gentry 6 4 - 12 % [facility] Eos 2 0 - 8 % [facility] Baso 0 0 - 1 % [facility] Neutrophil 6.6 1.8 - 7.7 [facility] Absolute k/ul Lymph Absolute 1.3 1.0 - 4.8 [facility] k/ul Gentry Absolute 0.5 0.1 - 0.7 [facility] k/ul Eos Absolute 0.1 0.0 - 0.5 [facility] k/ul Baso Absolute 0.0 0.0 - 0.2 [facility] k/ul Specimen Anatomical Collection Method Collection Time Receive d Time (Source) Location / / Volume Laterality 03/28/2010 11:27 03/28/2010 AM ICING MAKER 11:39 AM ICING MAKER Tiffany Gonzalez APRN, DNP LAB_1 Performing Organization Address City/State/ZIP Code Phon e Number [facility] [phone] [facility] [address] [phone] documented in this encounter Visit Diagnoses Diagnosis Fatigue - Primary Other malaise and fatigue Body aches Generalized pain Sore throat Acute pharyngitis Bronchial asthma ([facility]) Unspecified asthma documented in this encounter Care Teams Brigadier Relationship Specialty Start Date End Date Tiffany Gonzalez APRN, DNP PCP - General 01/16/00 02/03/16 [address] [place] [id number] documented as of this encounter
--- OUTSIDE RECORDS SUMMARY | 2021-12-28 14:15 | XMS_ITS | Encounter Summary ---
:1965 Author Organization [facility] Address [address] [place] [address] Care Team Providers Name Role Phone Tiffany Gonzalez APRN, DNP Primary Care Provider Reason for Visit Reason Comments ALLERGY SHOT Encounter Details Date Type Department Care Team Description 08/30/2009 [facility] Need for Desensitization to Allergy Clinic Allergens (Primary Dx) [address] [place] [address] Social History Tobacco Use Types [...] encounter Progress Notes Celsa Meredith E - 08/30/2009 2:03 PM CDT S Stephanie Norman here for [...] Primary documented in this encounter Care Teams Printing Engineer Relationship Specialty Start Date End Date Tiffany Gonzalez APRN, DNP PCP - General 01/16/00 02/03/16 [address] [id number] documented as of this encounter
--- OUTSIDE RECORDS SUMMARY | 2021-12-28 14:15 | XMS_ITS | Encounter Summary ---
:1965 Author Organization [facility] Address [address] [place] [address] Care Team Providers Name Role Phone Tiffany Gonzalez APRN, DNP Primary Care Provider Reason for Visit Reason Comments ALLERGY SHOT Encounter Details Date Type Department Care Team Description 02/13/2010 [facility] Need for desensitization to Allergy Clinic allergens (Primary Dx) [address] [place] [address] Social History Tobacco Use Types Packs/Day Years Used Date Smoking Tobacco: Every Day Cigarettes 0.5 Comments: Restarted 12/2005; prior to janice t stopped for 8 months Alcohol Use Standard Drinks/Week Comments Yes 0.8 (1 standard drink = 0.6 oz pure alco hol) rarely Sex Assigned at Date Recorded Not on file documented as of this encounter Progress Notes Celsa Meredith RN - 02/13/2010 1:32 PM CDT S Stephanie Norman here for [...] Primary documented in this encounter Care Teams Airplane Mechanic Relationship Specialty Start Date End Date Tiffany Gonzalez APRN, DNP PCP - General 01/16/00 02/03/16 [address] [place] [id number] documented as of this encounter
--- OUTSIDE RECORDS SUMMARY | 2021-12-28 14:15 | XMS_ITS | Encounter Summary ---
:1965 Author Organization [facility] Address [address] [place] [address] Care Team Providers Name Role Phone Tiffany Gonzalez APRN, DNP Primary Care Provider [phone] Reason for Visit Reason Comments ALLERGY SHOT Encounter Details Date Type Department Care Team Description 04/22/2009 Office Visit [facility] 401 Need for Desensitization to Allergy Clinic Allergens (Primary Dx) [address] [place] [address] Social History Tobacco Use Types Packs/Day Years Used Date Smoking Tobacco: Every Day Cigarettes 0.5 Comments: Restarted 12/2005; prior to janice t stopped for 8 months Alcohol Use Standard Drinks/Week Comments Yes 0.8 (1 standard drink = 0.6 oz pure alco hol) rarely Sex Assigned at Date Recorded Not on file documented as of this encounter Progress Notes Nelly Ludwig - 04/22/2009 2:23 PM CST S Stephanie Norman here for [...] allergy shot(s) given today Nelly Ludwig RN [place] [employer] SALES MANAGER documented in this encounter Plan of Treatment Not on filedocumented as of this encounter Visit Diagnoses Diagnosis Need for desensitization to allergens - Primary documented in this encounter Care Teams Window Cleaner Relationship Specialty Start Date End Date Tiffany Gonzalez APRN, DNP PCP - General 01/16/00 02/03/16 [address] [place] [id number] documented as of this encounter
--- OUTSIDE RECORDS SUMMARY | 2021-12-28 14:15 | XMS_ITS | Encounter Summary ---
:1965 Author Organization [employer] Address [address] [place] [address] Care Team Providers Name Role Phone Tiffany Gonzalez APRN, DNP Primary Care Provider [phone] Reason for Visit Reason Comments ROUTINE HEALTH MAINTENANCE MEDICATION CHECK refills for celexa Encounter Details Date Type Department Care Team Description 09/30/2009 Office Visit Elisabeth Gonzalez, Preventative He alth Care (Primary Dx); Practice Tiffany Still, Hypercholesterolemia with Hy perglyceridemia; [address] [employer] Tobacco Use Disorder; [place], [place] [address] ASTHMA, UNSPECIFIED; [address] [place] [address] ALLERGIC RHINITIS NOS; [phone] MENSTRUAL DISOR YESI NOS; (Work) ENDOMETRIAL POLYP; [phone] Reflux Esophagi tis; (Fax) POLYCYSTIC KIDN EY, UNSPEC; HYPERTENSION NO S; PMDD (Premenstr ual Dysphoric Disorder); Breast Screenin g, Unspecified Social History Tobacco Use Types Packs/Day Years [...] Reading Time Taken Comments Blood Pressure 136/90 09/30/2009 9:27 AM CDT Pulse 64 09/30/2009 9:27 AM CDT Temperature - - Respiratory Rate - - Oxygen Saturation - - Inhaled Oxygen Concentration - - Weight 103.9 kg (229 lb) 09/30/2009 9:27 AM CDT Height 170.8 cm (5' 7.25) 09/30/2009 9:27 AM CDT Body Mass Index 35.6 09/30/2009 9:27 AM CDT documented in this encounter Patient Instructions Patient InstructionsTiffany Gonzalez - 09/30/2009 9:45 AM CDT ACOG revised recommendations are: ?? Women from [...] (AYE) 2, AYE 3, or cervical cancer. For bone health: Calcium intake - 1200mg/ day in divided doses (food or supplements) if under age 50, otherwise 1500mg/day if over age 50 Vit D3 2000IU daily. This is over the counter, and can be purchased at any drug store. Vit D serves many functions in the body including keeping bones strong, helping to absorb calcium, help muscles to function better, help fight depression and fatigue, and probably reduce risk for certain cancers. We are finding new things about Vit D all the time. In [place] Vit D levels are low dueto low level of sun exposure. Labs done today. Will get results and comments online. Please be aware that you will know the lab results before the provider does. Allow 2 business days for comments to show online. Tiffany Gonzalez NP is out of the clinic on Wed. For health care information online, visit the website, and click on View Online Health Information Library. If you have any questions about this visit, please call [phone] during the day or email questions through your online account. At night or on the weekend you may call the Care Line at [phone] or . Please set up a future mammogram appointment by calling [phone] Increase exercise level, goal of 30min 5x wk PLEASE try to quit smoking! GETTING READY FOR THE QUIT DATE! Be accountable - tell friends about quitting and quit date, identify support system, and km baird (do not pick a high stress day). Post reminders of why you want to quit around your home. Slowly start to cut down on tobacco use. Change tobacco brands. Smoke with the other hand or side of mouth. Rate how much you really need a cigarette on a scale of 1-10, if 5 or less put it away. Smoke in a different room or only smoke outside or in the garage. Change routines that involve tobacco. THE DAY BEFORE THE QUIT DATE: Clean and freshen house and car. Do laundry, take coats to redrying machine operator. Throw away cigarettes, ashtrays, lighters/matches. Stock up on gum, candy, mints, toothpicks, straws, vegetables, etc. ON THE QUIT DATE: Plan activities, keep busy. Stay away from favorite chair or room. Eat meals in a different room. Stay in tobacco-free areas. documented in this encounter Progress Notes Tiffany Gonzalez - 09/30/2009 9:50 AM CDT S Stephanie Norman is a 44 yr old female in for routine health maintenance. Current concerns: Chief Complaint Patient presents with ??? ROUTINE HEALTH MAINTENANCE ??? MEDICATION, CHECK refills for celexa Menses are regular and predictable. PMS symptoms much better with use of citalopram. Sexual activity: sexually active with female partner. Patient Active Problem List Diagnoses Code ??? 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 REFLUX ESOPHAGITIS 530.11 ??? POLYCYSTIC KIDNEY, UNSPEC 753.12 ??? HYPERTENSION NOS 401.9 ??? MENSTRUAL DISORDER NOS 626.9 ??? ENDOMETRIAL POLYP 621.0 ??? ALLERGIC RHINITIS [...] TABS 2 tablets daily in cold season HGB (g/dl) Date Value 01/01/09 9:22 AM 13.1 Present dietary habits: three meals a day and adequate fruit and vegetables Calcium intake: three or more servings daily Present exercise habits: minimal exercise I have reviewed the medical, surgical, family and social histories. Review of systems include ROS: Complete Review of Systems is negative O BP 136/90 Pulse 64 Ht 5' 7.25 (1.708 m) Wt 229 lb (103.874 kg) Estimated Body mass index is 35.60 kg/(m^2) as calculated from the following: Height as of this encounter: 5' 7.25(1.708 m). Weight as of this encounter: 229 lb(103.874 kg). Stephanie Norman is a well developed, well nourished, well groomed with pleasant affect Lungs: clear to auscultation, no wheezes or rales Breasts: no lymphedema, no nipple changes, no masses or tenderness CV: regular rate and rhythm, normal S1 and S2 without murmur or click Abd: Soft, non-tender, no masses, no hepatomegaly or splenomegaly. : pelvic exam not indicated Skin: no abnormalities noted A Encounter Diagnoses Code Name Primary? Qualifier ??? V70.0C Preventative Health Care Yes ??? 272.2BP Hypercholesterolemia with Hyperglyceridemia ??? 305.1 Tobacco Use Disorder ??? 493.90 ASTHMA, UNSPECIFIED ??? 477.9 ALLERGIC RHINITIS NOS ??? 626.9 MENSTRUAL DISORDER NOS ??? 621.0 ENDOMETRIAL POLYP ??? 530.11 Reflux Esophagitis ??? 753.12 POLYCYSTIC KIDNEY, UNSPEC ??? 401.9 HYPERTENSION NOS ??? 625.4AA PMDD (Premenstrual Dysphoric Disorder) ??? V76.10 Breast Screening, Unspecified P See pt instructions for plan/details. documented in this encounter Plan of Treatment Not on filedocumented as of this encounter Procedures Procedure Name Priority Date/Time Associated Diagnosis Comme nts LIPID PANEL AND Routine 09/30/2009 9:07 Hypercholesterolemia w ith Results for this DIRECT LDL(IF AM CDT Hyperglyceridemia procedure are in NEEDED) the results section. TSH, SENSITIVE Routine 09/30/2009 9:07 Results fo r this AM CDT procedure are i n the results section. BASIC METABOLIC Routine 09/30/2009 9:07 Results f or this PANEL AM CDT procedure are i n the results section. COMPLETE BLOOD Routine 09/30/2009 9:07 Results fo r this COUNT-NO DIFF AM CDT procedure are in the results section. ALT (SGPT) Routine 09/30/2009 9:07 Hypercholesterolemia with Results for this AM CDT Hyperglyceridemia procedure are in the results section. AST Routine 09/30/2009 9:07 Hypercholesterolemia with Results for this AM CDT Hyperglyceridemia procedure are in the results section. documented in this encounter Results ALT (SGPT) (09/30/2009 9:07 AM CDT) P athologist Signature ALT (SGPT) 12 0 - 69 U/L [employer] Specimen Anatomical Collection Method Collection Time Receive d Time (Source) Location / / Volume Laterality 09/30/2009 9:07 AM 0 9:19 CDT AM CDT Tiffany Gonzalez APRN, DNP LAB_1 Performing Organization Address [facility] Phon e Number [facility] [phone] [facility] [address] [place] [phone] AST (09/30/2009 9:07 AM CDT) athologist Signature AST (SGOT) 26 0 - 46 U/L [facility] Specimen Anatomical Collection Method Collection Time Receive d Time (Source) Location / / Volume Laterality 09/30/2009 9:07 AM 0 9:19 CDT AM CDT Tiffany Gonzalez APRN, DNP LAB_1 Performing Organization Address [facility] Phon e Number [facility] [phone] [phone] (ABNORMAL) LIPID PANEL AND DIRECT LDL(IF NEEDED) (09/30/2009 9:07 AM CDT) [facility] Method Time Signature Cholesterol 202 (H) 0 - 199 [facility] mg/dl Triglyceride 184 (H) 0 - 149 [facility] mg/dl HDL 47 >40 mg/dl [facility] LDL, Calc. 118 0 - 129 [facility] mg/dl Hours Fasting 16 hours [facility] Specimen Anatomical Collection Method Collection Time Receive d Time (Source) Location / / Volume Laterality 09/30/2009 9:07 AM 0 9:19 CDT AM CDT Tiffany Gonzalez APRN, DNP LAB_1 Performing Organization Address [facility] Phon e Number [facility] [phone] [phone] (ABNORMAL) BASIC METABOLIC PANEL (09/30/2009 9:07 AM CDT) [facility] Method Time Signature BUN 14 7 - 20 [facility] mg/dl Sodium 133 (L) 135 - 145 [facility] mmol/L Potassium 4.5 3.5 - 5.1 [facility] mmol/L Chloride 104 98 - 107 [facility] mmol/L CO2 27 22 - [address] [facility] mmol/L Glucose 82 70 - [address] [facility] mg/dl Creatinine 1.48 (H) 0.52 - [facility] 1.04 mg/dl GFR, Estimated 38.14 (L) >60 [facility] ml/min/1. 73m2 GFR, Est., If 46.15 (L) >60 [facility] Black ml/min/1. 73m2 Calcium 9.2 8.4 - [facility] 10.2 mg/dl Anion Gap 2 (L) 3 - [address] [facility] (calc.) mmol/L Specimen Anatomical Collection Method Collection Time Receive d Time (Source) Location / / Volume Laterality 09/30/2009 9:07 AM 0 9:19 CDT AM CDT Tiffany Gonzalez APRN, DNP LAB_1 Performing Organization Address City/[facility] Phon e Number [facility] [phone] [facility] [address] [phone] HEMOGRAM/PLTS (09/30/2009 9:07 AM CDT) P athologist Signature WBC 7.5 4.0 - 11.0 [facility] k/ul RBC 4.39 4.0 - 5.2 [facility] M/ul Hemoglobin 13.3 12.0 - 16.0 [facility] g/dl HCT 40.2 36.0 - 46.0 [facility] % MCV 91.5 80 - 100 fl [facility] MCH 30.2 26 - 34 pg [facility] MCHC 33.0 32 - 36 [facility] g/dl RDW 13.0 11.5 - 14.5 [facility] % Platelets 343 150 - 450 [facility] k/ul Specimen Anatomical Collection Method Collection Time Receive d Time (Source) Location / / Volume Laterality 09/30/2009 9:07 AM 0 9:19 CDT AM CDT Tiffany Gonzalez APRN, DNP LAB_1 Performing Organization Address City/State/ZIP Code Phon e Number [facility] [phone] [phone] TSH, SENSITIVE (09/30/2009 9:07 AM CDT) athologist Signature TSH, Sensitive 2.615 0.465 - [facility] 4.68 uIU/ml Specimen Anatomical Collection Method Collection Time Receive d Time (Source) Location / / Volume Laterality 09/30/2009 9:07 AM 0 9:19 CDT AM CDT Tiffany Gonzalez APRN, DNP LAB_1 Performing Organization Address City/[facility] Code Phon e Number [facility] [phone] [phone] documented in this encounter Visit Diagnoses Diagnosis Preventative health care - Primary Routine general medical examination at a health care facility Hypercholesterolemia with hyperglyceride marilee ([facility]) Mixed hyperlipidemia Tobacco use disorder ([facility]) Tobacco use disorder ASTHMA, UNSPECIFIED Unspecified asthma ALLERGIC RHINITIS NOS Allergic rhinitis, cause unspecified MENSTRUAL DISORDER NOS Unspecified disorder of menstruation and other abnormal bleeding from female genital tract ENDOMETRIAL POLYP Polyp of corpus uteri Reflux esophagitis POLYCYSTIC KIDNEY, UNSPEC Polycystic kidney, unspecified type HYPERTENSION NOS Unspecified essential hypertension PMDD (premenstrual dysphoric disorder) Premenstrual tension syndromes Breast screening, unspecified documented in this encounter Care Teams Simulation Analyst Relationship Specialty Start Date End Date Tiffany Gonzalez APRN, DNP PCP - General 01/16/00 02/03/16 DIPIKA MARRERO [id number] documented as of this encounter
--- OUTSIDE RECORDS SUMMARY | 2021-12-28 14:15 | XMS_ITS | Encounter Summary ---
:1965 Author Organization [facility] Address [address] [place] [address] Care Team Providers Name Role Phone Tiffany Gonzalez APRN, DNP Primary Care Provider [phone] Reason for Visit Reason Comments ANXIETY--ED sudden onset of body tingli ng twenty minutes ago Encounter Details Date Type Department Care Team Description 02/07/2010 Emergency [facility] Kaitlin Corbin MD Paresthesias; [address] Lightheadedness; [place] [address] [place] [address] Hypokalemia; [phone] (Wo rk) Anxiety attack Social History Tobacco Use Types Packs/Day Years [...] Sign Reading Time Taken Comments Blood Pressure 158/77 02/07/2010 10:45 AM CDT Pulse 70 02/07/2010 10:58 AM CDT Temperature 36.6 ??C (97.8 ??F) 02/07/2010 9:04 AM CDT Respiratory Rate 14 02/07/2010 10:58 AM CDT Oxygen Saturation 100% 02/07/2010 10:58 AM CDT Inhaled Oxygen Concentration - - Weight - - Height - - Body Mass Index - - documented in this encounter Discharge Instructions Discharge InstructionsLaura Ritchie - 02/07/2010 10:52 AM CDT Dear Emerson, Thank you for choosing [facility] for your emergency medical needs. You have received emergency care only and your condition may change. Therefore, we highly recommend you follow-up with your physician as directed. For follow-up care contact: Please follow up with your primary care clinic/provider. For follow-up care, you should be seen within 7 days. Continue home medications as prescribed by your doctor. Make an appointment with your primary care doctor for further evaluation and treatment. Return to the ER if symptoms worsen. When you see your doctor, bring your medications and instructions to the office. If you had x-rays, an EKG, or lab tests today, they have been reviewed by your emergency department doctor. We will contact you at once if other important findings are notified after further review of our staff. If you donot continue to improve or if your condition worsens, please call your doctor or the emergency room right away. I understand that my condition may require more care and will arrange for further treatment as recommended. Your medical provider or nurse discussed with you the following: ?? Danger signs to watch out for when you got home. If you were given new medication, we discussed how to take the new medication. If you were given new medication, we discussed the possible side effects, or referred you to talk tothe pharmacist. If you have any questions or concerns after you leave the ED, then you knew who to call. If you would like to be seen in a [facility] clinic, please call the Community [facility] Appointment Desk at [phone] anytime between 7:00 AM and 9:00 PM, 7 days a week, 365 days a year (Hearing Impaired: [phone]). Please bring these instructions with you when you are seen in your follow-up appointment. AttachmentsThe following attachments cannot be sent through Care Everywhere. Hypokalemia-BriefAnxiety and Panic Attacksdocumented in this encounter Medications at Time of Discharge Medication Sig Dispensed Refills Start Date End Date fluticasone (FLONASE) 50 1 to 2 sprays in 1 11 05/1405/14/2010 MCG/ACT nasal suspension each nostril once daily as directed VENTOLIN HFA 108 (90 BASE) Inhale 2 puffs by 1 2 05/14/2010 MCG/ACT inhaler mouth every 4-6 hrs as needed for breathing difficulties azithromycin (ZITHROMAX Take by mouth. Take 6 Tab 0 02/11/2010 Z-AGUSTÍN) 250 MG tablet two tablets on the first day, and take one tablet each day on days 2-5 citalopram (CELEXA) 40 MG Take 1 Tab by mouth 90 Tab 3 0 09/30/2009 12/20/2010 tabletIndications: daily. Unspecified disorder of menstruation and other abnormal bleeding from female genital tract, PMDD (premenstrual dysphoric disorder) CLARITIN 10 MG OR TABS 1 TABLET DAILY 30 0 5 09/26/2013 FISH OIL 1000 MG OR CAPS 1 capsule daily 0 200709/26/2013 LISINOPRIL 20 MG OR TABS Take one tablet by 3mos 3 12/27/2010 mouth every day. PRILOSEC 20 MG OR CPDR Take one capsule by 0 12/27/2010 mouth every day. simvastatin (AKA ZOCOR) 40 Take 0.5 Tabs by 90 Tab 2 12/200910/06/2010 MG tabletIndications: mouth daily at Hypercholesterolemia with bedtime. hyperglyceridemia (HRC) TRAZODONE HCL 100 MG OR Take one half to 30 0 200812/27/2010 TABSIndications: Depressive one tablet by mouth disorder, not elsewhere at bedtime. classified, Sleep disturbance VITAMIN B COMPLEX OR 1 daily 0 06/28/200701/17 VITAMIN C 500 MG OR TABS 2 tablets daily in 0 02/200802/04/2016 cold season documented as of this encounter ED Notes Laura Anderson, CLINICAL RESEARCH TECH, GRID OPERATOR - 02/07/2010 11:07 AM CDT [facility] ED Nursing Discharge Note Admission Date/Time: 02/07/2010 8:59 AM Attending MD: Kaitlin Corbin Patient discharged: to Home. Patient accompanied by: relative. Transported by: Walked Valuables were taken home by patient: Yes Work/School Slip given: No Discharge instructions given and explained to patient: Yes Discharge prescriptions given to patients: No Patient verbalized understanding. Yes Patient level of pain on discharge: 0 Patients condition on discharge related to chief complaint and treatment in ED: Pt was given discharge instructions. Verbalized understanding and signed d/c instructions. Pt chose to ambulate out of the ED with her partner. ---End of Report--- Kaitlin Corbin - 02/07/2010 9:25 AM CDT [facility] Emergency Department Attending Supervision Note JANA Care under my supervision. Case discussed. Prolonged QT on ECG and tingling so will checked BMP for low calcium or K. Normal [place] K 3.4 w/o acid/base change. Creatinine is her usual sl elevated value. Will give 40 meq KCl. F/unext week Laura Ritchie - 02/07/2010 9:13 AM CDT [facility] Emergency Department Visit Note Chief Complaint: Chief Complaint Patient presents with ??? ANXIETY--ED sudden onset of body tingling twenty minutes ago HPI: 44 yo female wit h/o HTN, migraines and polycystic kidneys brought by medics with c/o sudden onset of body tingling [address] MAGISTRATE. Pt states she was seated at her computer at work when she developed tingling in her hands that then spread to her whole body down to her feet. She felt lightheadedwith blurred vision and reports assoc palpitations. Symptoms lasted 10 min and have all resolved, except tingling in both hands and feet. She feels tremulous. She denies any headache, speech/gait changes. She states her body feels weak overall, but denies focal weakness. No CP, SOB, diaphoresis. No f/c/n/v. She denies recent illness or ill contacts. She denies h/o anxiety attacks and does not feel any particular stressors. She denies any PMH of CAD, [place], CVA and has no family history of same. Both parents from breast ca. She has not had anything for symptom relief. She does smoke 1/2 ppd. No drug or alcohol use. No other complaints at this time. PMH: Past Medical History Diagnosis Date ??? HYPERTENSION NOS 06/01/2003 Past Surgical History Procedure Date ? ? Hysteroscpy surg; w/bx &/ polypect 03/31/04 Meds: Medications marked Taking as of 02/07/10 encounter (Hospital Encounter): citalopram (CELEXA) 40 MG tablet Take 1 Tab by mouth daily. Disp: 90 Tab Rfl: 3 LISINOPRIL 20 MG OR TABS Take one tablet by mouth every day. Disp: 3mos Rfl: 3 PRILOSEC 20 MG OR CPDR Take one capsule by mouth every day. Disp: Rfl: simvastatin (AKA ZOCOR) 40 MG tablet Take 0.5 Tabs by mouth daily at bedtime. Disp: 90 Tab Rfl: 2 Allergies: Amoxicillin, Penicillins, Neomycin and Beta adrenergic blockers Social and Family History: History Substance Use Topics ??? Tobacco Use: Yes -- 0.5 packs/day Restarted 12/2005; prior to that stopped for 8 months ??? Alcohol Use: 0.5 oz/week 1 Can(s) of beer per week rarely Family History Problem Relation ??? Cancer, Breast Mother breast, Dx age 40. 1 month later. ??? Cancer, Breast Father breast. Dx age 65. 2006. Heart attack in mid - 60s. ??? Kidney Disorder Father polycystic kidney disease ??? Depression Mother ??? Depression Other uncle committed suicide ??? Coronary Artery Disease Father [place] age 60s Review of Systems: Please see [employer] flowsheet for review of systems. Physical Exam: BP 164/91 Pulse 86 Temp(Src) 97.8 ??F (36.6 ??C) (Oral) Resp 14 SpO2 100% General: alert, oriented to person, place, time and normal hydration, pt tearful, anxious appearing Head: atraumatic Eyes: PERRL, EOMI, corneas clear and conjunctivae clear Ears: pearly pratt bilateral TMs and non-inflamed external ear canals Nose: no rhinorrhea/nasal discharge Mouth/Throat: no exudates, no erythema, no tonsillar enlargement and structures midline Neck: no tenderness, supple, full AROM and no adenopathy Chest/Pulmonary: chest clear with equal lung sounds bilaterally, no chest wall tenderness or deformities and no tachypnea Cardiovascular: S1, S2 normal and regular rate and rhythm Musculoskel/Extremities: normal extremities, no edema, erythema, tenderness and full AROM of major joints without tenderness Skin: no rashes, no diaphoresis and skin color normal Neuro: speech clear, gait stable, cranial nerves II-XII grossly symmetric, motor: 5/5 strength in upper lower extremities and sensory/light touch, no cerebellar signs, pt noted to be tremulous Psychiatric: affect/mood anxious, tearful, cooperative, normal judgement/insight and memory intact Medical Decision Making: Ativan given for relief of anxiety. EKG shows sinus rhythm, prolonged QT (QTC 501). BMP: K 3.4, Cr 1.39 (baseline), AG 12. KCl given in ED. Pt feeling better after ativan. Symptoms most likely anxiety attack and resolved in ED. Close f/u with PCP advised. Danger signs discussed for return to ED. Assessment: Paresthesias Lightheadedness Hypokalemia Anxiety attack Plan: Cosmetic Assembler Re-check Vitals ECG Medication: anxiety Customer Advocacy Manager patient/family Re-evaluate patient Check response to treatment Planned Disposition: home Discharged with close f/u with PCP advised. Make an appointment with your primary care doctor for further evaluation and treatment. Return to the ER if symptoms worsen. Discharge instructions given andpatient's questions answered. Condition on disposition: Stable Patient seen with: Kaitlin Corbin Laura Anderson APRN, GRID OPERATOR - 02/07/2010 9:07 AM CDT Dysphagia Screen: Patient handling own secretion, took sip and then 4oz of water without difficulty swallowing, coughing, or choking. Laura Anderson APRN, GRID OPERATOR - 02/07/2010 9:06 AM CDT Pt states that she was feeling fine and then had the onset of tingling. Pt is visibly shaking in theED. Equal hand grasps and leg movements. Pupils PERRL. Pt did not have anymore coffee than usual this am. Denies any headache. Pt placed on the security monitor. Call light within reach. Visitor at the bedside. Luis Miguel Jones RN - 02/07/2010 9:01 AM CDT Pt. Arrival to ED via medics from work, c/o onset of tingling throughout body starting twenty minutes ago. documented in this encounter Miscellaneous Notes Media - [facility], PROVIDER - 02/07/2010 12:00 AM CDT Media - External, Provider - 02/07/2010 12:00 AM CDT documented in this encounter Plan of Treatment Not on filedocumented as of this encounter Procedures Procedure Name Priority Date/Time Associated Diagnosis Comme nts BASIC METABOLIC STAT 02/07/2010 9:40 AM Result s for this PANEL CDT procedure are i n the results section. ECG 12-LEAD ROUTINE Routine 02/07/2010 9:27 AM Re sults for this CDT procedure are i n the results section. documented in this encounter Results (ABNORMAL) Basic Metabolic Panel (02/07/2010 9:40 AM CDT) Analysis Performed At Patho logist Time Signature BUN 14 7 - 20 [facility] mg/dl Sodium 141 135 - 145 [facility] mmol/L Potassium 3.4 (L) 3.5 - 5.1 [facility] mmol/L Chloride 106 98 - 107 [facility] mmol/L CO2 23 22 - 30 [facility] mmol/L Glucose 111 70 - 180 [facility] mg/dl Creatinine 1.39 (H) 0.52 - [facility] 1.04 mg/dl GFR, Estimated 41.0 (L) >60 [facility] ml/min/1.7 3m2 GFR, Est., If 49.6 (L) >60 [facility] Black ml/min/1.7 3m2 Calcium 9.1 8.4 - 10.2 [facility] mg/dl Anion Gap 12 (H) 3 - 11 [facility] (calc.) mmol/L Specimen Anatomical Collection Method Collection Time Receive d Time (Source) Location / / Volume Laterality 02/07/2010 9:40 AM 0 CDT 10:05 AM CDT Kaitlin Corbin MD LAB_1 Performing Organization Address [facility]/[place] [facility] [place] [address] [address] [place], [place] [phone] ECG 12-Lead Routine (02/07/2010 9:27 AM CDT) P athologist Signature Ventricular Rate 91 BPM MUSE Atrial Rate 91 BPM MUSE P-R Interval 162 ms MUSE QRS Duration 80 ms MUSE QT 408 ms MUSE QTc 501 ms MUSE P Mobile 57 degrees MUSE R Mobile 11 degrees MUSE T Mobile 36 degrees MUSE URL Link MUSE Specimen (Source) Anatomical Collection Method Collection Time Re ceived Time Location / / Volume Laterality 02/07/2010 9:27 AM CDT Narrative MUSE - 02/07/2010 2:21 PM CDT Sinus rhythm Low voltage QRS Cannot rule out Anterior infarct , age u ndetermined Prolonged QT Abnormal ECG When compared with ECG of 27-MAR-2004 09 :43, Vent. rate has increased BY ??42 BPM QT has lengthened Procedure Note Jaime Dahl W - 02/07/2010 Sinus rhythm Low voltage QRS Cannot rule out Anterior infarct , age u ndetermined Prolonged QT Abnormal ECG When compared with ECG of 27-MAR-2004 09 :43, Vent. rate has increased BY 42 BPM QT has lengthened Kaitlin Corbin MD EKG Performing Organization Address City/[facility]/ZIP Code Phon e Number MUSE RHP MUSE documented in this encounter Visit Diagnoses Diagnosis Paresthesias Disturbance of skin sensation Lightheadedness Dizziness and giddiness Hypokalemia Hypopotassemia Anxiety attack (HRC) Panic disorder without agoraphobia documented in this encounter Administered Medications Inactive Administered Medications - up to 3 most recent administrations Medication Order MAR Action Action Date Dose Rate Site LORazepam (aka ATIVAN) tablet 1 mg Given 02/07/2010 9:20 AM CDT 1 mg 1 mg, Oral, NOW, On Wed02/07/10 at 0916, For 1 dose potassium chloride (aka K-DUR,KLOR-CON M) Given 02/07/2010 11:02 AM CDT 40 mEq extended release tablet 40 mEq 40 mEq, Oral, BID, First dose on Wed02/07/10 at 1051 documented in this encounter Active and Recently Administered Medications Times are shown in CDT. Scheduled Medication Order 02/05/2010 02/06/2010 02/07/2010 LORazepam (aka ATIVAN) tablet 1 mg (COMPLETED) 0920 (Given - Provider: Laura Anderson APRN, AMY) 1 mg, Oral, NOW, 1 dose, Wed02/07/10 at 0916 potassium chloride (aka K-DUR,KLOR-CON M ) extended release tablet 40 mEq (CANCELED) 1102 (Given - Provid er: Laura Anderson APRN, CNP) 40 mEq, Oral, BID, First dose on Wed02/07/10 at 1051, Until Dis continued documented in this encounter Care Teams Curam Developer Relationship Specialty Start Date End Date Tiffany Gonzalez APRN, GAIL PCP - General 01/16/00 02/03/16 [address] [place] [id number] documented as of this encounter
--- OUTSIDE RECORDS SUMMARY | 2021-12-28 14:15 | XMS_ITS | Encounter Summary ---
:1965 Author Organization [facility] Address [address] [place] [address] Care Team Providers Name Role Phone Tiffany Gonzalez APRN, DNP Primary Care Provider [phone] Reason for Visit Reason Onset Date Comments ABDOMINAL PAIN 05/04/2010 Encounter Details Date Type Department Care Team Description 05/04/2010 Telephone Careline Unassigned, Provider ABDOMINAL PAIN [address] [place], [place] [address] [place] [address] Social History Tobacco Use Types Packs/Day Years Used Date Smoking Tobacco: Every Day Cigarettes 0.5 Comments: Restarted 12/2005; prior to janice t stopped for 8 months Alcohol Use Standard Drinks/Week Comments Yes 0.8 (1 standard drink = 0.6 oz pure alco hol) rarely Sex Assigned at Date Recorded Not on file documented as of this encounter Nursing Notes Janey Hart RN - 05/05/2010 1:09 PM CST 05/05/2010 1:08 PM CareLine made F/U call; states she went to ER as advised and had appy late yesterday afternoon; Just discharged to home; is comfortable with her status; Janey Hart RN DCARE WORKER Darleen Gray RN - 05/04/2010 12:23 PM CST Pt transf'd by Careline Public Safety Telecommunicator with sudden onset of RLQ abdominal pain since 3AM. She still has her appendix. Vomited once an hour ago. No appetite. No fever. Pain increases with moving. Rates the pain a 5 with sitting still, a 10 with movement. TRIAGE REFERENCE: ABDOMINAL PAIN - ADULT CNG (c) 2008 STAT SYMPTOMS Too ill to walk, doubled over with pain, or too ill to converse PMH: Patient Active Problem List Diagnoses Code ??? 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 REFLUX ESOPHAGITIS 530.11 ??? POLYCYSTIC KIDNEY, UNSPEC 753.12 ??? HYPERTENSION NOS 401.9 ??? ENDOMETRIAL POLYP 621.0 ??? ALLERGIC RHINITIS NOS 477.9 ??? ASTHMA, UNSPECIFIED 493.90 ??? Hypercholesterolemia with Hyperglyceridemia 272.2BP ??? Tobacco Use Disorder 305.1 ??? PMDD (Premenstrual Dysphoric Disorder) 625.4AA Medication Allergies?: Amoxicillin, Penicillins, Neomycin and Beta adrenergic blockers CURRENT MEDICATIONS Current outpatient prescriptions Medication Sig ??? ALBUterol [...] TABS 2 tablets daily in cold season PLAN What clinic have you established care with? [facility] Advised ER liliaal now. Pt agrees with this plan and will present to the hospital in [place]. Darleen Gray RN DCARE WORKER Radha Ngo - 05/04/2010 12:19 PM CST Does the patient currently have insurance?Yes Which care system is the patient affiliated with?[facility] Situation:sudden pain in lower right abdominal pain that woke her at 3:00am, constant, nauseous, vomited once Background: A nurse will call you back within the next hour. If you have not heard from a nurse, please feel free to call us back at [phone] and state that you are waiting for a callback. DCARE WORKER documented in this encounter Plan of Treatment Not on filedocumented as of this encounter Visit Diagnoses Not on filedocumented in this encounter Care Teams Ball Winder Relationship Specialty Start Date End Date Tiffany Gonzalez APRN, DNP PCP - General 01/16/00 02/03/16 [address] [place] [id number] documented as of this encounter
--- OUTSIDE RECORDS SUMMARY | 2021-12-28 14:15 | XMS_ITS | Encounter Summary ---
:1965 Author Organization [facility] Address [address] [place] [address] Care Team Providers Name Role Phone Tiffany Gonzalez APRN, DNP Primary Care Provider Reason for Visit Reason Comments ALLERGY SHOT Encounter Details Date Type Department Care Team Description 06/18/2009 Office Visit [facility] 401 Need for Desensitization to Allergy Clinic Allergens (Primary Dx) [address] [place] [address] Social History Tobacco Use Types Packs/Day Years Used Date Smoking Tobacco: Every Day Cigarettes 0.5 Comments: Restarted 12/2005; prior to janice t stopped for 8 months Alcohol Use Standard Drinks/Week Comments Yes 0.8 (1 standard drink = 0.6 oz pure alco hol) rarely Sex Assigned at Date Recorded Not on file documented as of this encounter Progress Notes July Barboza - 06/18/2009 1:10 PM CST S Stephanie Norman here for [...] full documentation of allergy shot(s) given today July Barboza RN SHIFT MANAGER documented in this encounter Plan of Treatment Not on filedocumented as of this encounter Visit Diagnoses Diagnosis Need for desensitization to allergens - Primary documented in this encounter Care Teams Channel Layer Relationship Specialty Start Date End Date Tiffany Gonzalez APRN, DNP PCP - General 01/16/00 02/03/16 [address] [place] [id number] documented as of this encounter
--- OUTSIDE RECORDS SUMMARY | 2021-12-28 14:15 | XMS_ITS | Encounter Summary ---
:1965 Author Organization [facility] Address [address] [place] [address] Care Team Providers Name Role Phone Tiffany Gonzalez APRN, GAIL Primary Care Provider [phone] Encounter Details Date Type Department Care Team Description 03/21/2010 Correspondence None Inactive, Provider PROOF O F [...] Notes Interface, In Chrtscr And Scan - 03/25/2010 2:[address] PRODUCTION GENERAL MANAGER PRODUCTION GENERAL MANAGER documented in this encounter Plan of Treatment Not on filedocumented as of this encounter Visit Diagnoses Not on filedocumented in this encounter Care Teams Home Delivery Driver Relationship Specialty Start Date End Date Tiffany Gonzalez APRN, GAIL PCP - General 01/16/00 02/03/16 [address] [place] [id number] documented as of this encounter
--- OUTSIDE RECORDS SUMMARY | 2021-12-28 14:15 | XMS_ITS | Encounter Summary ---
:1965 Author Organization [facility] Address [address] [place] [address] Care Team Providers Name Role Phone Tiffany Gonzalez APRN, DNP Primary Care Provider Reason for Visit Reason Comments ALLERGY SHOT Encounter Details Date Type Department Care Team Description 08/05/2009 [facility] Visit [facility] 401 Need for Desensitization to Allergy Clinic Allergens (Primary Dx) [address] [place] [address] Social History Tobacco Use Types [...] encounter Progress Notes Celsa Meredith E - 08/05/2009 3:08 PM CDT S Stephanie Norman here for [...] Primary documented in this encounter Care Teams Cloth Spreader Relationship Specialty Start Date End Date Tiffany Gonzalez APRN, DNP PCP - General 01/16/00 02/03/16 [address] [place] [id number] documented as of this encounter
--- OUTSIDE RECORDS SUMMARY | 2021-12-28 14:15 | XMS_ITS | Encounter Summary ---
:1965 Author Organization [facility] Address [address] [place] [address] Care Team Providers Name Role Phone Tiffany Gonzalez APRN, DNP Primary Care Provider Reason for Visit Reason Comments ALLERGY SHOT Encounter Details Date Type Department Care Team Description 07/15/2009 Office Visit [facility] 401 Need for Desensitization to Allergy Clinic Allergens (Primary Dx) [address] [place] [address] Social History Tobacco Use Types Packs/Day Years Used Date Smoking Tobacco: Every Day Cigarettes 0.5 Comments: Restarted 12/2005; prior to janice t stopped for 8 months Alcohol Use Standard Drinks/Week Comments Yes 0.8 (1 standard drink = 0.6 oz pure alco hol) rarely Sex Assigned at Date Recorded Not on file documented as of this encounter Progress Notes Lula Pina - 07/15/2009 4:06 PM CDT S Stephanie Norman here for [...] full documentation of allergy shot(s) given today Lula Pina LPN documented in this encounter Plan of Treatment Not on filedocumented as of this encounter Visit Diagnoses Diagnosis Need for desensitization to allergens - Primary documented in this encounter Care Teams Rug Cutter Relationship Specialty Start Date End Date Tiffany Gonzalez, PALOMO, DNP PCP - General 01/16/00 02/03/16 [address] [place] [id number] documented as of this encounter
--- OUTSIDE RECORDS SUMMARY | 2021-12-28 14:15 | XMS_ITS | Encounter Summary ---
:1965 Author Organization [facility] Address [address] [place] [address] Care Team Providers Name Role Phone Tiffany Gonzalez APRN, DNP Primary Care Provider [phone] Reason for Visit Reason Comments Follow-up, NOS cough Encounter Details Date Type Department Care Team Description 03/21/2010 Office Visit [facility] Lisa, Asthma with exacerbation (Pr imary Dx); [address] Tiffany Still APRN, Elevated blood pressure; [place] [address] DNP Smoker [phone] [address] [place] [address] (Wo rk) Social History Tobacco Use Types [...] Sign Reading Time Taken Comments Blood Pressure 158/84 03/21/2010 3:17 PM SECURITIES TRADER Pulse 63 03/21/2010 3:17 PM SECURITIES TRADER Temperature - - Respiratory Rate - - Oxygen Saturation 96% 03/21/2010 3:17 PM SECURITIES TRADER Inhaled Oxygen Concentration - - Weight - - Height - - Body Mass Index - - documented in this encounter Patient Instructions Patient InstructionsTiffany Gonzalez APRN, DNP - 03/21/2010 3:47 PM SECURITIES TRADER Nebulizer with albuterol ampules can be used at home instead of the MDI inhaler RITIES TRADER documented in this encounter Progress Notes Tiffany Gonzalez APRN, DNP - 03/21/2010 5:50 PM CST SUBJECTIVE: Stephanie Norman is a 45 yr old female presents for followup asthma flare. Seen a few days ago and given Z-Joel, prednisone and Robitussin with codeine. Has taken a week off of work. Feeling better than when she was a few days ago. Finally able to get some good sleep. Coughing is less. Breathing is better. She is using her albuterol inhaler every 4-6 hours. Taking the prednisone. She does not have a home nebulizer. She has never used one before. We did decide to do this in the clinic to see how she didwith that and if she would like to have one for home use. Current symptoms include productive cough with sputum described as white and yellow. Symptoms improved over past few days. Patient Active Problem List Diagnoses Code ??? 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 REFLUX ESOPHAGITIS 530.11 ??? POLYCYSTIC KIDNEY, UNSPEC 753.12 ??? HYPERTENSION NOS 401.9 ??? ENDOMETRIAL POLYP 621.0 ??? ALLERGIC RHINITIS NOS 477.9 ??? ASTHMA, UNSPECIFIED 493.90 ??? Hypercholesterolemia with Hyperglyceridemia 272.2BP ??? Tobacco Use Disorder 305.1 ??? PMDD (Premenstrual Dysphoric Disorder) 625.4AA Current outpatient prescriptions Medication Sig ??? azithromycin (ZITHROMAX Z-JOEL) 250 MG tablet Take by mouth. Take two tablets on the first day, and take one tablet each day on days 2-5 ??? citalopram (CELEXA) 40 MG tablet Take [...] one tablet by mouth every day. ??? predniSONE (AKA DELTASONE) 10 MG tablet Take 1 Tab by mouth for 7 days. 2 tabs twice daily for 3days, then 1 tab twice daily for 4 days ??? PRILOSEC 20 MG OR CPDR Take [...] TABS 2 tablets daily in cold season History Substance Use Topics ??? Tobacco Use: Yes -- 0.5 packs/day Restarted 12/2005; prior to that stopped for 8 months ??? Alcohol Use: 0.5 oz/week 1 Can(s) of beer per week rarely OBJECTIVE: BP 158/84 Pulse 63 SpO2 96% PF 530 L/min Cardiac: S1,S2 no murmur,gallop or rub Lungs: few scattered wheezes anterior and posterior upper chest ASSESSMENT: Encounter Diagnoses Code Name Primary? Qualifier ??? 493.92A Asthma with exacerbation Yes ??? 796.2S Elevated blood pressure ??? 305.1AR Smoker PLAN: Plans to quit smoking. Symptoms improved from visit a few days ago. Continue meds. Add nebulizer for home use. To follow up with persisting, worsening or changing symptoms. Patient Instructions Nebulizer with albuterol ampules can be used at home instead of the MDI inhaler RITIES TRADER documented in this encounter Nursing Notes 03/21/2010 2:40 PM CST >> Tiffanie Kee LPN WedMar 21, 2010 3:41 PM Albuterol Neb Tx given to pt. >> Tiffanie Kee LPN WedMar 21, 2010 3:23 PM Peak flows were 520,530 & 530 today in office. Tiffanie Kee LPN documented in this encounter Plan of Treatment Not on filedocumented as of this encounter Visit Diagnoses Diagnosis Asthma with exacerbation (HRC) - Primary Unspecified asthma, with exacerbation Elevated blood pressure Elevated blood pressure reading without diagnosis of hypertension Smoker (HRC) Tobacco use disorder documented in this encounter Care Teams Laborer Rags Relationship Specialty Start Date End Date Tiffany Gonzalez APRN, DNP PCP - General 01/16/00 02/03/16 [address] [place] [id number] documented as of this encounter
--- OUTSIDE RECORDS SUMMARY | 2021-12-28 14:15 | XMS_ITS | Encounter Summary ---
:1965 Author Organization [facility] Address [address] [place] [address] Care Team Providers Name Role Phone Tiffany Gonzalez APRN, DNP Primary Care Provider Reason for Visit Reason Comments ALLERGY SHOT Encounter Details Date Type Department Care Team Description 10/15/2009 Office Visit [facility] 401 Need for Desensitization to Allergy Clinic Allergens (Primary Dx) [address] [place] [address] Social History Tobacco Use Types [...] encounter Progress Notes Celsa Meredith E - 10/15/2009 2:24 PM CDT S Stephanie Norman here for [...] Primary documented in this encounter Care Teams Deputy Sheriff Generalist Relationship Specialty Start Date End Date Tiffany Gonzalez APRN, DNP PCP - General 01/16/00 02/03/16 [address] [place] [id number] documented as of this encounter
--- OUTSIDE RECORDS SUMMARY | 2021-12-28 14:15 | XMS_ITS | Encounter Summary ---
:1965 Author Organization [facility] Address [address] [place] [address] Care Team Providers Name Role Phone Tiffany Gonzalez APRN, DNP Primary Care Provider [phone] Reason for Visit Reason Onset Date Comments Influenza (Flu) 04/09/2009 Encounter Details Date Type Department Care Team Description 04/09/2009 Telephone [facility] Pari Mathews, RN Influenza (Flu) [address] [place] [address] [place] [address] Social History Tobacco Use Types Packs/Day Years Used Date Smoking Tobacco: Every Day Cigarettes 0.5 Comments: Restarted 12/2005; prior to janice t stopped for 8 months Alcohol Use Standard Drinks/Week Comments Yes 0.8 (1 standard drink = 0.6 oz pure alco hol) rarely Sex Assigned at Date Recorded Not on file documented as of this encounter Nursing Notes Pari Mathews, RN - 04/09/2009 11:14 AM CST Pt is has appointment scheduled for possible H1N1. Spoke with pt. She is at work. She reports havingflu sx since 04-06-09. She has a horrible soret throat, congestion, achiness, headache, cough, greenish nasal drainage. No fever. Explained to pt that most pts with H1N1 have a fever and are very un comfortable. Explained pt may have a viral respiratory infection. Recommend home treatment. Advised to call back directly if there are further questions, or if these symptoms fail to improve as anticipated or worsen. Cancel appointment. Pt is agreeable with plan. Pari Pascal RN ITY ASSURANCE SUPERVISOR FINAL documented in this encounter Plan of Treatment Not on filedocumented as of this encounter Visit Diagnoses Not on filedocumented in this encounter Care Teams Drywall Boardhanger Relationship Specialty Start Date End Date Tiffany Gonzalez, EXAMINATION PROCTOR, DNP PCP - General 01/16/00 02/03/16 [address] [place] [id number] documented as of this encounter
--- OUTSIDE RECORDS SUMMARY | 2021-12-28 14:15 | XMS_ITS | Encounter Summary ---
:1965 Author Organization [facility] Address [address] [place] [address] Care Team Providers Name Role Phone Tiffany Gonzalez APRN, DNP Primary Care Provider Reason for Visit Reason Onset Date Comments VISION, BLURRED 08/12/2009 Encounter Details Date Type Department Care Team Description 08/12/2009 Telephone [facility] Tiffany Gonzalez, VISION, BLURRED [address] [place] [address] [address] [facility] [phone] [place] [id number] (Wo rk) Social History Tobacco Use Types Packs/Day Years Used Date Smoking Tobacco: Every Day Cigarettes 0.5 Comments: Restarted 12/2005; prior to janice t stopped for 8 months Alcohol Use Standard Drinks/Week Comments Yes 0.8 (1 standard drink = 0.6 oz pure alco hol) rarely Sex Assigned at Date Recorded Not on file documented as of this encounter Nursing Notes María Barboza - 08/12/2009 1:19 PM CDT Spoke with pt and informed She will call specialty eye clinic for appt Wants to be seen there Tiffany Gonzalez - 08/12/2009 12:53 PM CDT Eye consult clem. Karla Burrell - 08/12/2009 11:53 AM CDT No PEREZ,No dizziness,No nausea. Flonase started one week ago. No blurred vision now. To provider for advise: Karla Burrell RN Re Neal - 08/12/2009 11:48 AM CDT Patient has experienced a sudden blurring of her vision without any associated symptoms. She tried taking her contacts out but that did not make a difference. She was asking to see Tiffany today. documented in this encounter Plan of Treatment Not on filedocumented as of this encounter Visit Diagnoses Not on filedocumented in this encounter Care Teams Truck Driver Helper Relationship Specialty Start Date End Date Tiffany Gonzalez, DRIVER SALES, DNP PCP - General 01/16/00 02/03/16 [address] [place] [id number] documented as of this encounter
--- OUTSIDE RECORDS SUMMARY | 2021-12-28 14:15 | XMS_ITS | Encounter Summary ---
:1965 Author Organization [facility] Address [address] [place] [address] Care Team Providers Name Role Phone Tiffany Gonzalez APRN, DNP Primary Care Provider Encounter Details Date Type Department Care Team Description 08/12/2009 Office Visit [facility] 401 Rich Lowery, Migraine Aura without Ophthalmology Clinic Headache (Primary Dx) [address] [place] [address] [place], [place] [phone] [address] Social History Tobacco Use Types Packs/Day Years Used Date Smoking Tobacco: Every Day Cigarettes 0.5 Comments: Restarted 12/2005; prior to janice t stopped for 8 months Alcohol Use Standard Drinks/Week Comments Yes 0.8 (1 standard drink = 0.6 oz pure alco hol) rarely Sex Assigned at Date Recorded Not on file documented as of this encounter Patient Instructions Patient InstructionsRich Lowery - 08/12/2009 3:52 PM CDT No follow-up appointment is being made for you for now. Keep us informed of your symptoms. If your symptoms worsen or fail to resolve, do not hesitate to contact us: Daytime hours: [facility] [phone] [facility] [phone] Evening hours: Careline: [phone] OnLine: [facility] Migraine Aura Most people think of migraines as bad headaches. But migraines also refer to temporary changes in the vision, called an aura. People may or may not have the aura and the headache together. Typical auras last about 10-30 minutes, and usually have some component of jagged or simmering lines. There may be colors or metallic like reflections. Often it is hard to tell if the changes are in one eye or both. Usually there is no specific trigger for a migraine. Sometimes people can identify a certain food ordrink that brings on the migraine like caffeine, wine, or chocolate. Migraines often run in families. In the majority of cases, migraine auras are not cause for major concern. If the visual disturbance lasts longer than about 30 minutes or the migraines become more frequent, there are occasionally more tests than can be done to make sure nothing more is happening. There are various medications available for migraine headaches, but migraine auras are not typicallytreated with any prescription. [email or web address]-[email or web address] documented in this encounter Progress Notes Rich Lowery - 08/12/2009 3:10 PM CDT Stephanie Norman is a 44 yr old female here for: this AM whole right field of vision was blurry/wavy with an arc of blurriness x 10-15 minutes, jagged lines. No flashes. Pressure behind OS since episode this AM. Pt has had migraines her entire life. No PEREZ today. Overall Va unchanged. Review of Systems Const: (-) ENT: (-) Pulm: (-) Cardio: (-) GI: (-) : (-) MS: (-) Skin: (-) Neuro: (+) headaches last week 3 days in a row Heme: (-) Assessment and Plan: Encounter Diagnosis Name Primary? Migraine Aura without Headache reassure documented in this encounter Plan of Treatment Not on filedocumented as of this encounter Visit Diagnoses Diagnosis Migraine aura without headache - Primary Migraine with aura, without mention of i ntractable migraine without mention of status migrainosus documented in this encounter Care Teams Liquid Flavor Compounder Relationship Specialty Start Date End Date Tiffany Gonzalez APRN, DNP PCP - General 01/16/00 02/03/16 [id number] [place] [id number] documented as of this encounter
--- OUTSIDE RECORDS SUMMARY | 2021-12-28 14:15 | XMS_ITS | Encounter Summary ---
:1965 Author Organization [facility] Address [address] [place] [address] Care Team Providers Name Role Phone Tiffany Gonzalez APRN, DNP Primary Care Provider Encounter Details Date Type Department Care Team Description 03/18/2010 Imaging [facility] Asthma with exacerbation; [address] Bronchitis; [place] [address] Tobacco use disorder [phone] Social History Tobacco Use Types Packs/Day Years [...] Priority Date/Time Associated Diagnosis Comme nts XR CHEST 2 VIEWS Routine 03/18/2010 12:13 PM Asthma with Resu lts for this PLANT OPERATIONS ENGINEER exacerbation procedure are in Bronchitis the results Tobacco use disorder section . documented in this encounter Results XR CHEST 2 VIEW ROUTINE (03/18/2010 12:13 PM PLANT OPERATIONS ENGINEER) Anatomical Region Laterality Modality Chest, Lung Computed Radiography Specimen (Source) Anatomical Collection Method Collection Time Re ceived Time Location / / Volume Laterality 03/18/2010 12:13 PM PLANT OPERATIONS ENGINEER Narrative 03/18/2010 1:21 PM PLANT OPERATIONS ENGINEER XR CHEST PA/AP AND LAT 2VWS Mar [...] Degenerative change in the spine. Tiffany Gonzalez APRN, GAIL RAD GD documented in this encounter Visit Diagnoses Diagnosis Asthma with exacerbation (HRC) Unspecified asthma, with exacerbation Bronchitis Bronchitis, not specified as acute or ch ronic Tobacco use disorder (HRC) Tobacco use disorder documented in this encounter Care Teams Envelope Machine Operator Relationship Specialty Start Date End Date Tiffany Gonzalez APRN, GAIL PCP - General 01/16/00 02/03/16 [address] [place] [id number] documented as of this encounter
--- OUTSIDE RECORDS SUMMARY | 2021-12-28 14:15 | XMS_ITS | Encounter Summary ---
:1965 Author Organization [facility] Address [address] [place] [address] Care Team Providers Name Role Phone Tiffany Gonzalez APRN, DNP Primary Care Provider Reason for Visit Reason Comments ALLERGY SHOT Encounter Details Date Type Department Care Team Description 12/13/2009 Office Visit [facility] 401 Need for Desensitization to Allergy Clinic Allergens (Primary Dx) [address] [place] [address] Social History Tobacco Use Types [...] encounter Progress Notes Celsa Meredith RN - 12/13/2009 1:31 PM CDT S Stephanie Norman here for [...] Primary documented in this encounter Care Teams Annealer Relationship Specialty Start Date End Date Tiffany Gonzalez APRN, DNP PCP - General 01/16/00 02/03/16 [address] [place] [id number] documented as of this encounter
--- OUTSIDE RECORDS SUMMARY | 2021-12-28 14:15 | XMS_ITS | Encounter Summary ---
:1965 Author Organization [facility] Address [address] [place] [address] Care Team Providers Name Role Phone Tiffany Gonzalez APRN, DNP Primary Care Provider Reason for Visit Reason Comments FOLLOW-UP,ER [facility] 02/07/10 Encounter Details Date Type Department Care Team Description 02/11/2010 Office Visit [facility] Lisa, Follow-up examination (Prima ry Dx); [address] Tiffany Still APRN, Lightheaded; [place] [address] DNP Palpitation; [phone] Nausea; [place] [address] Numbness and tingling [phone] (Wo rk) Social History Tobacco Use Types [...] Sign Reading Time Taken Comments Blood Pressure 132/90 02/11/2010 11:13 AM CDT Pulse 71 02/11/2010 11:13 AM CDT Temperature - - Respiratory Rate - - Oxygen Saturation 99% 02/11/2010 11:13 AM CDT Inhaled Oxygen Concentration - - Weight 101.6 kg (224 lb) 02/11/2010 11:13 AM CDT Height - - Body Mass Index 34.82 09/30/2009 9:27 AM CDT documented in this encounter Patient Instructions Patient InstructionsTiffany Gonzalez - 02/11/2010 11:42 AM CDT GO TO LAB TODAY Will get results and comments online. Please be aware that you will know the lab results before the provider does. Allow 2 business days for comments to show online. Tiffany Gonzalez BASE ENGINEER is out of the clinic on Wed. For health care information online, visit the website, and click on View Online [employer]. If you have any questions about this visit, please call [phone] during the day or email questions through your online account. At night or on the weekend you may call the Care Line at [phone] or . Bring your numbers to [place] and let them know about incident of ER visit with K of 3.4 on 02/07/10 documented in this encounter Progress Notes Tiffany Gonzalez - 02/11/2010 1:14 PM CDT SUBJECTIVE: Stephanie Norman is a 44 yr old female presents with Chief Complaint Patient presents with ??? FOLLOW-UP,ER [facility] ER 02/07/10 Patient reports she was in the hospital on 02/07 for low potassium. Her potassium level was 3.4 which really is borderline low but the patient was significantly low as she typically runs in a 5.0 range She has a history of polycystic kidneys and is constantly followed by [facility]. Her symptoms included shaking, tingling and numbness, heart racing, nausea and dizziness. [facility] stated that they felt this was a panic attack. Patient denies this. Stating she really feels it was because of the low potassium. Now she is feeling totally fine. Given potassium replacement in the emergency room and sent home. She is confident that her potassium is probably back to its norm. She was eating some bananas over the weekend. Blood pressure is elevated today which is unusual for her. Plans on [facility] followup next month Patient Active Problem List Diagnoses Code ??? [...] tablets daily in cold season OBJECTIVE: BP 132/90 Pulse 71 Wt 224 lb (101.606 kg) SpO2 99% Stephanie Norman is a well developed, well nourished, well groomed with pleasant affect S1 and S2 normal, no murmurs, clicks, gallops or rubs. Regular rate and rhythm. Chest is clear; no wheezes or rales. No edema or jugular venous distension. ASSESSMENT: Encounter Diagnoses Code Name Primary? Qualifier ??? V67.9B Follow-up examination Yes ??? 780.4U Lightheaded ??? 785.1A Palpitation ??? 787.02A Nausea ??? 782.0GE Numbness and tingling PLAN: Repeat lab work today. Check thyroid. She will be notified of results and further plan. Recheck blood pressure was [facility] next month. documented in this encounter Plan of Treatment Not on filedocumented as of this encounter Procedures Procedure Name Priority Date/Time Associated Diagnosis Comme nts BASIC METABOLIC Routine 02/11/2010 11:46 AM Follow-up Resul ts for this PANEL CDT examination procedure are in Lightheaded the results section. TSH, SENSITIVE Routine 02/11/2010 11:46 AM Follow-up Result s for this (WITH REFLEX) CDT examination procedure are in Light[facility] the results section. documented in this encounter Results (ABNORMAL) BASIC METABOLIC PANEL (02/11/2010 11:46 AM CDT) [facility] Method Time Signature BUN 17 7 - 20 [facility] mg/dl Sodium 139 135 - 145 [facility] mmol/L Potassium 4.6 3.5 - 5.1 [facility] mmol/L Chloride 108 (H) 98 - 107 [facility] mmol/L CO2 25 22 - 30 [facility] mmol/L Glucose 74 70 - 180 [facility] mg/dl Creatinine 1.53 (H) 0.52 - [facility] 1.04 mg/dl GFR, Estimated 36.7 (L) >60 [facility] ml/min/1. 73m2 GFR, Est., If 44.4 (L) >60 [facility] Black ml/min/1. 73m2 Calcium 9.2 8.4 - [facility] 10.2 mg/dl Anion Gap 6 3 - 11 [facility] (calc.) mmol/L Specimen Anatomical Collection Method Collection Time Receive d Time (Source) Location / / Volume Laterality 02/11/2010 11:46 02/11/2010 AM CDT 12:01 PM CDT Tiffany Gonzalez BUILDING ENERGY CONSULTANT, DNP LAB_1 Performing Organization Address City/State/ZIP Code Phon e Number [facility] [phone] [facility] [address] [address] TSH, SENSITIVE (WITH REFLEX)[0191] - Clinics ONLY (02/11/2010 11:46 AM CDT) P athologist Signature TSH, with 1.879 0.465 - [facility] Reflex 4.68 uIU/ml Specimen Anatomical Collection Method Collection Time Receive d Time (Source) Location / / Volume Laterality 02/11/2010 11:46 02/11/2010 AM CDT 12:01 PM CDT Tiffany Gonzalez APRN, DNP LAB_1 Performing Organization Address City/State/ZIP Code Phon e Number [facility] [phone] [facility] [address] [address] documented in this encounter Visit Diagnoses Diagnosis Follow-up examination - Primary Unspecified follow-up examination Lightheaded Dizziness and giddiness Palpitation Palpitations Nausea Nausea alone Numbness and tingling Disturbance of skin sensation documented in this encounter Care Teams Gymnastic Teacher Relationship Specialty Start Date End Date Tiffany Gonzalez APRN, DNP PCP - General 01/16/00 02/03/16 [email or web address] [place] [id number] documented as of this encounter
--- OUTSIDE RECORDS SUMMARY | 2021-12-28 14:15 | XMS_ITS | Encounter Summary ---
:1965 Author Organization [facility] Address [address] [place] [address] Care Team Providers Name Role Phone Tiffany Gonzalez APRN, DNP Primary Care Provider [phone] Encounter Details Date Type Department Care Team Description 02/13/2010 [facility] 401 Yaakov Fraire MD ALLERGY INJECTION All[facility] Clinic [address] RECORD [address] [place] [address] Social History Tobacco Use Types Packs/Day Years Used Date Smoking Tobacco: Every Day Cigarettes 0.5 Comments: Restarted 12/2005; prior to janice t stopped for 8 months Alcohol Use Standard Drinks/Week Comments Yes 0.8 (1 standard drink = 0.6 oz pure alco hol) rarely Sex Assigned at Date Recorded Not on file documented as of this encounter Progress Notes Tejinder Fraire MD - 08/27/2010 7:52 AM CDT documented in this encounter Plan of Treatment Not on filedocumented as of this encounter Visit Diagnoses Not on filedocumented in this encounter Care Teams Molder Fitting Relationship Specialty Start Date End Date Tiffany Gonzalez APRN, DNP PCP - General 01/16/00 02/03/16 [address] [place] [id number] documented as of this encounter
--- OUTSIDE RECORDS SUMMARY | 2021-12-28 14:15 | XMS_ITS | Encounter Summary ---
:1965 Author Organization [facility] Address [address] [place] [address] Care Team Providers Name Role Phone Marcelo Gonzalez APRN, GAIL Primary Care Provider [phone] Reason for Visit Reason Onset Date Comments Refill 09/25/2009 Encounter Details Date Type Department Care Team Description 09/25/2009 [facility]ill [facility] Shon Gonzalez, Refill MT PALOMO, DNP [address] [place] [address] [place] [address] [phone] (Wo rk) Social History Tobacco Use Types Packs/Day Years Used Date Smoking Tobacco: Every Day Cigarettes 0.5 Comments: Restarted 12/2005; prior to janice t stopped for 8 months Alcohol Use Standard Drinks/Week Comments Yes 0.8 (1 standard drink = 0.6 oz pure alco hol) rarely Sex Assigned at Date Recorded Not on file documented as of this encounter Nursing Notes Tiffanie Ordaz - 09/26/2009 12:41 PM CDT Appt 09-30 Marcelo Gonzalez - 09/26/2009 9:02 AM CDT Approved Prescriptions: Disp Refills simvastatin (AKA ZOCOR) 40 MG tablet 90 Tab 2 Sig: Take 0.5 Tabs by mouth daily at bedtime. Authorizing Provider: MARCELO GONZALEZ Marcelo Gonzalez - 09/26/2009 8:59 AM CDT Notify pt she is due for fasting lipid panel. Please be sure you are fasting x 12hrs. Water and medicine is okay. May use online. [facility] now schedules lab visits. Please call [phone] to make your next lab visit. Venus Colindres - 09/25/2009 3:47 PM CDT Last fill on 06/17 for a quantity of 45 documented in this encounter Plan of Treatment Not on filedocumented as of this encounter Results ALT (SGPT) (09/30/2009 9:07 AM CDT) athologist Signature ALT (SGPT) 12 0 - 69 U/L [facility] Specimen Anatomical Collection Method Collection Time Receive d Time (Source) Location / / Volume Laterality 09/30/2009 9:07 AM 0 9:19 CDT AM CDT Marcelo Gonzalez APRN, GAIL LAB_1 Performing Organization Address City/State/ZIP Code Phon e Number [facility] [phone] [address] AST (09/30/2009 9:07 AM CDT) athologist Signature AST (SGOT) 26 0 - 46 U/L [facility] Specimen Anatomical Collection Method Collection Time Receive d Time (Source) Location / / Volume Laterality 09/30/2009 9:07 AM 0 9:19 CDT AM CDT Marcelo Gonzalez APRN, DNP LAB_1 Performing Organization Address [facility] [address]/[facility] Phon e Number [facility] [phone] [facility] [address] [address] (ABNORMAL) LIPID PANEL AND DIRECT LDL(IF NEEDED) (09/30/2009 9:07 AM CDT) [facility] Method Time Signature Cholesterol 202 (H) 0 - 199 [facility] mg/dl Triglyceride 184 (H) 0 - 149 [facility] mg/dl HDL 47 >40 mg/dl [facility] LDL, Calc. 118 0 - 129 [facility] mg/dl Hours Fasting 16 hours [facility] Specimen Anatomical Collection Method Collection Time Receive d Time (Source) Location / / Volume Laterality 09/30/2009 9:07 AM 0 9:19 CDT AM CDT Marcelo Gonzalez APRN, DNP LAB_1 Performing Organization Address [facility] [address]/[facility] Phon e Number [facility] [phone] [facility] [address] [place] [address] documented in this encounter Visit Diagnoses Diagnosis Hypercholesterolemia with hyperglyceride marilee (HRC) - Primary Mixed hyperlipidemia documented in this encounter Care Teams Physicist Astrophysics Relationship Specialty Start Date End Date Marcelo Gonzalez APRN, DNP PCP - General 01/16/00 02/03/16 [address] [place] [id number] documented as of this encounter
--- OUTSIDE RECORDS SUMMARY | 2021-12-28 14:15 | XMS_ITS | Encounter Summary ---
:1965 Author Organization [facility] Address [address] [place] [address] Care Team Providers Name Role Phone Tiffany Gonzalez APRN, DNP Primary Care Provider Reason for Visit Reason Comments ALLERGY SHOT Encounter Details Date Type Department Care Team Description 11/14/2009 Office Visit [facility] 401 Need for Desensitization to Allergy Clinic Allergens (Primary Dx) [address] [place] [address] Social History Tobacco Use Types [...] encounter Progress Notes Celsa Meredith RN - 11/14/2009 2:20 PM CDT S Stehpanie Norman here for allergy injection(s). O The [...] Primary documented in this encounter Care Teams Assembler Hydraulic Backhoe Relationship Specialty Start Date End Date Tiffany Gonzalez APRN, DNP PCP - General 01/16/00 02/03/16 [address] [place] [id number] documented as of this encounter
--- OUTSIDE RECORDS SUMMARY | 2021-12-28 14:15 | XMS_ITS | Encounter Summary ---
:1965 Author Organization [facility] Address [address] [place] [address] Care Team Providers Name Role Phone Tiffany Gonzalez APRN, DNP Primary Care Provider Reason for Visit Reason Comments SINUS PAIN/PRESSURE x 5 days CONGESTION Encounter Details Date Type Department Care Team Description 10/16/2009 Office Visit [facility] for Liza Montoya DANIA Leyva (Up per Respiratory Infection) (Primary Dx); Women Internal ASTHMA, UNSPECIFIED; Medicine [address] Sinus Congestion [address] [facility]. [place], [place] [address] [address] [place] [address] [phone] Social History Tobacco Use Types Packs/Day Years [...] Sign Reading Time Taken Comments Blood Pressure 120/82 10/16/2009 10:30 AM CDT Pulse 74 10/16/2009 10:30 AM CDT Temperature 36.8 ??C (98.3 ??F) 10/16/2009 10:30 AM CDT Respiratory Rate 16 10/16/2009 10:30 AM CDT Oxygen Saturation - - Inhaled Oxygen Concentration - - Weight 103.4 kg (228 lb) 10/16/2009 10:30 AM CDT Height - - Body Mass Index 35.44 09/30/2009 9:27 AM CDT documented in this encounter Progress Notes Liza Montoya - 10/16/2009 10:43 AM CDT Stephanie Norman is a 44 yr old female who comes in with concerns that she may have a sinus infection. She has had sinus congestion, rhinorrhea for the past 4-5 days. No fever or chills. + headache. She had sore throat on day one which has resolved. Nonproductive cough. She has h/o asthma which is exercise induced. Symptoms worse over the past 4 days. Using albuterol about 2-3 times daily. No gi or gu s ymptoms. Past Medical History Diagnosis Date ??? HYPERTENSION NOS 06/01/2003 Allergies Allergen Reactions ??? Amoxicillin ??? Penicillins ??? Neomycin topical sensitization ??? Beta Adrenergic Blockers Patient is on allergy injections, Beta Blockers contraindicated. If medically necessary, it is OK to prescribe a Beta Joey, but the allergy injections will need to be discontinued. meds reviewed. See epic BP 120/82 Pulse 74 Temp 98.3 ??F (36.8 ??C) Resp 16 Wt 228 lb (103.42 kg) General: Pleasant, NAD Eye: PERRL TMs: clear bilaterally Nose no mucopurulent discharge, mild mucosal edema Oropharynx: clear, no lesions Neck: no LAD, no thyromegaly Lungs: clear to auscultation bilaterally Heart: Regular rate and rhythm. Normal S1, S2 A/p Viral uri. Symptomatic treatment. Follow up if symptoms worsen or fail to improve. Sinus congestion. I suspect this is viral. I discussed with patient that we generally like to wait at least 7 days from onset of symptoms to determine if antibiotic treatment is needed. Patient is given rx for zpak if symptoms do not improve by the end of the week on their own. Asthma. Symptoms worse over the past 3 days. Continue albuterol inhaler prn documented in this encounter Plan of Treatment Not on filedocumented as of this encounter Visit Diagnoses Diagnosis URI (upper respiratory infection) - Prim dionicio Acute upper respiratory infections of un specified site ASTHMA, UNSPECIFIED Unspecified asthma Sinus congestion Other diseases of nasal cavity and sinus es documented in this encounter Care Teams Onshore Diver Relationship Specialty Start Date End Date Tiffany Gonzalez, ROUTE RELIEF DRIVER, DNP PCP - General 01/16/00 02/03/16 [address] [id number] documented as of this encounter
--- OUTSIDE RECORDS SUMMARY | 2021-12-28 14:15 | XMS_ITS | Encounter Summary ---
:1965 Author Organization [facility] Address [address] [place] [address] Care Team Providers Name Role Phone Tiffany Gonzalez APRN, DNP Primary Care Provider Encounter Details Date Type Department Care Team Description 05/28/2009 Notes/Orders [facility] Tejinder Fraire Need f or Desensitization 401 All[facility] Clinic MD to Allergens (Primary Dx) [address] [place] [address] [place], [place] [phone] [address] Social History Tobacco Use Types Packs/Day Years Used Date Smoking Tobacco: Every Day Cigarettes 0.5 Comments: Restarted 12/2005; prior to janice t stopped for 8 months Alcohol Use Standard Drinks/Week Comments Yes 0.8 (1 standard drink = 0.6 oz pure alco hol) rarely Sex Assigned at Date Recorded Not on file documented as of this encounter Nursing Notes Celsa Meredith - 05/31/2009 7:30 AM CST New orders printed at [facility]. Celsa Meredith RN Ruthann Mohan - 05/28/2009 4:08 PM CST Orders reviewed and flagged for MD to approve. Ruthann Bull RN [employer] Celsa Meredith - 05/28/2009 3:41 PM CST Allergy extract expires at the [facility] on 06-27-09- Will have Dr. Fraire review & refill. Celsa Meredith RN [employer] documented in this encounter Plan of Treatment Not on filedocumented as of this encounter Visit Diagnoses Diagnosis Need for desensitization to allergens - Primary documented in this encounter Care Teams Hot Man Relationship Specialty Start Date End Date Tiffany Gonzalez APRN, DNP PCP - General 01/16/00 02/03/16 [address] [place] [id number] documented as of this encounter
--- OUTSIDE RECORDS SUMMARY | 2021-12-28 14:15 | XMS_ITS | Encounter Summary ---
:1965 Author Organization [facility] Address [address] [place] [address] Care Team Providers Name Role Phone Tiffany Gonzalez APRN, DNP Primary Care Provider Reason for Visit Reason Onset Date Comments VISION, BLURRED 08/12/2009 Encounter Details Date Type Department Care Team Description 08/12/2009 Telephone [facility] Tiffany Gonzalez, VISION, BLURRED [address] [place] [address] [address] [facility] [phone] [place] [address] (Wo rk) Social History Tobacco Use Types Packs/Day Years Used Date Smoking Tobacco: Every Day Cigarettes 0.5 Comments: Restarted 12/2005; prior to janice t stopped for 8 months Alcohol Use Standard Drinks/Week Comments Yes 0.8 (1 standard drink = 0.6 oz pure alco hol) rarely Sex Assigned at Date Recorded Not on file documented as of this encounter Nursing Notes Tiffany Gonzalez - 08/12/2009 6:28 PM CDT Saw Eye dept today. Dx with migraine aura. She's aware of what to do. documented in this encounter Plan of Treatment Not on filedocumented as of this encounter Visit Diagnoses Not on filedocumented in this encounter Care Teams Personal Health Coach Relationship Specialty Start Date End Date Tiffany Gonzalez APRN, DNP PCP - General 01/16/00 02/03/16 [address] [place] [id number] documented as of this encounter
--- OUTSIDE RECORDS SUMMARY | 2021-12-28 14:15 | XMS_ITS | Encounter Summary ---
:1965 Author Organization [facility] Address [address] [place] [address] Care Team Providers Name Role Phone Tiffany Gonzalez APRN, DNP Primary Care Provider Reason for Visit Reason Comments ALLERGY SHOT Encounter Details Date Type Department Care Team Description 09/19/2009 Office Visit [facility] 401 Need for Desensitization to Allergy Clinic Allergens (Primary Dx) [address] [place] [address] Social History Tobacco Use Types [...] encounter Progress Notes Celsa Meredith E - 09/19/2009 2:21 PM CDT S Stephanie Norman here for [...] Primary documented in this encounter Care Teams Legal Executive Relationship Specialty Start Date End Date Tiffany Gonzalez APRN, DNP PCP - General 01/16/00 02/03/16 [address] [place] [id number] documented as of this encounter
--- OUTSIDE RECORDS SUMMARY | 2021-12-28 14:15 | XMS_ITS | Encounter Summary ---
:1965 Author Organization [facility] Address [address] [place] [address] Care Team Providers Name Role Phone Tiffany Gonzalez APRN, DNP Primary Care Provider [phone] Reason for Visit Reason Comments Follow Up Allergy imts [facility] had today Encounter Details Date Type Department Care Team Description 05/14/2009 Office Visit [facility] Tejinder Fraire Allerg ic Rhinitis, Cause Unspecified (Primary Dx); 401 Allergy Clinic MD Need for Prophylactic Vaccination and In oculation Against Influenza; [address] Need for Desensitization to Allergens; [place] [address] [place], [place] Mild Intermittent Asthma; [phone] [address] Tobacco Use Disorder Social History Tobacco Use Types Packs/Day Years [...] Sign Reading Time Taken Comments Blood Pressure 128/80 05/14/2009 3:51 PM INGREDIENT HANDLER Pulse 62 05/14/2009 3:51 PM INGREDIENT HANDLER Temperature - - Respiratory Rate - - Oxygen Saturation - - Inhaled Oxygen Concentration - - Weight 105.7 kg (233 lb) 05/14/2009 3:51 PM INGREDIENT HANDLER Height 172.1 cm (5' 7.75) 05/14/2009 3:51 PM INGREDIENT HANDLER Body Mass Index 35.69 05/14/2009 3:51 PM INGREDIENT HANDLER documented in this encounter Patient Instructions Patient InstructionsTejinder Fraire - 05/14/2009 4:07 PM CST Same treatment plan except will switch Nasonex to Fluticasone (generic for Flonase) Followup visit 1 year; sooner as needed If you have any questions, please call the Allergy department at [phone] EDIENT HANDLER documented in this encounter Progress Notes Tejinder Fraire - 05/14/2009 6:42 PM CST This office note has been dictated. EDIENT HANDLER documented in this encounter Procedure Notes Pulmonary, Provider - 05/14/2009 12:00 AM CSTAssociated Order(s): SPIROMETRY--SCAN Tejinder Fraire - 05/14/2009 12:00 AM INGREDIENT HANDLER She continues on allergy injections, she feels she is responding well. She is getting them as best she can every three weeks. She is taking loratadine 10 mg once daily. Nasonex she will start if she is having sneezing, coughing, takes it for two or three days, and when she is better she stops it. Ventolin HFA is her p.r.n. bronchodilator. She uses it about once or twice per month. Such as associated with shoveling the snow. She can also use it if she has a cold. She feels it effective and well tolerated in that fashion. She is smoking about four cigarettes per day. She only smokes at work, on a break. No purulent drainage. No epistaxis. OBJECTIVE DATA: Blood pressure 128/80. Pulse 62. Height 5 feet 7-3/4 inches. Weight 233 pounds. Spirometry is in normal range with FVC 4.29 (3.73), 113%. FEV1 3.87 (3.07), 126%. Values and tracing reviewed, see spirometry shingle. Physical exam - she appears well. Pleasant, cooperative. Ears - TMs without fluid or erythema. Eyes - conjunctivae clear. Nose - mild mucosal erythema, turbinate congestion. No purulent drainage, polyps, epistaxis or crusting. Oropharynx - without erythema or drainage. Lungs - without rales, rhonchi, wheezes or rubs. Heart - regular rate and rhythm. ASSESSMENT AND PLAN: Allergic rhinitis. History consistent with mild intermittent asthma. Tobacco use disorder. Same overall treatment program. I urged her to work to quit smoking entirely. We will switch her from Nasonex to fluticasone as it will cost her less, as tolerated. Followup visit in one year, calling or returning sooner as needed. She stated her understanding and agreement with treatment plan. FINAL DIAGNOSES: Allergic rhinitis. History consistent with mild intermittent asthma. Cigarette smoker. Allergy injections. DICTATED BUT NOT REVIEWED P / P tdy cc: EDIENT HANDLER documented in this encounter Nursing Notes 05/14/2009 3:45 PM CST >> JAILYN Fofana May 14, 2009 4:38 PM spirometry done today due to tobacco use results given to the md. Completed per physician's orders. Lula Pina LPN 4:38 PM 05/14/2009 >> JAILYN Fofana May 14, 2009 4:17 PM H1N1 FLU VACCINATION WAS GIVEN TODAY PER MD ORDER AND HANDOUT WELL.MD GAVE OK FOR THIS PT TO RECEIVE H1N1 TODAY . >> JAILYN Fofana May 14, 2009 4:08 PM S Stephanie Norman here for allergy injection(s). [...] Name Priority Date/Time Associated Diagnosis Comme nts SPIROMETRY--SCAN 05/14/2009 12:00 AM Resu lts for this INGREDIENT HANDLER procedure are i n the results section. documented in this encounter Results SPIROMETRY--SCAN (05/14/2009 12:00 AM INGREDIENT HANDLER) Specimen (Source) Anatomical Location Collection Method / Collectio n Time Received Time / Laterality Volume 05/14/2009 Narrative This result has an attachment that is no t available. Transcriptions Pulmonary, Provider - 05/14/2009 12:00 A M INGREDIENT HANDLER Tejinder rFaire MD EEG/RH documented in this encounter Visit Diagnoses Diagnosis Allergic rhinitis, cause unspecified - P rimary Need for prophylactic vaccination and in oculation against influenza Need for desensitization to allergens Mild intermittent asthma (HRC) Unspecified asthma Tobacco use disorder (HRC) Tobacco use disorder documented in this encounter Care Teams Project Production Engineer Relationship Specialty Start Date End Date Tiffany Gonzalez APRN, DNP PCP - General 01/16/00 02/03/16 [id number] [place] [id number] documented as of this encounter
--- OUTSIDE RECORDS SUMMARY | 2021-12-28 14:16 | XMS_ITS | Encounter Summary ---
:1965 Author Organization [employer] [facility] Address [address] [place] [address] Care Team Providers Name Role Phone Tiffany Gonzalez APRN, DNP Primary Care Provider Reason for Visit Reason Comments ALLERGY SHOT Encounter Details Date Type Department Care Team Description 08/09/2008 Office Visit [facility] Center 401 Need for Desensitization to Allergy Clinic Allergens [address] [place] [address] Social History Tobacco Use Types [...] encounter Progress Notes Celsa Meredith E - 08/09/2008 2:42 PM CDT S Stephanie Nargis Emerson here for allergy injection(s). O The following [...] Diagnoses Diagnosis Need for desensitization to allergens documented in this encounter Care Teams Central Office Worker Relationship Specialty Start Date End Date Tiffany Gonzalez APRN, DNP PCP - General 01/16/00 02/03/16 [address] [place] [id number] documented as of this encounter
--- OUTSIDE RECORDS SUMMARY | 2021-12-28 14:16 | XMS_ITS | Encounter Summary ---
:1965 Author Organization [employer] Address [address] [place] [address] Care Team Providers Name Role Phone Tiffany Gonzalez APRN, DNP Primary Care Provider Reason for Visit Reason Comments Consult, New Patient Encounter Details Date Type Department Care Team Description 09/13/2008 Office Visit Specialty Center Mckenna Taylor Diarr hea (Primary Dx); [facility] MD [facility] [address] [place], [place] [address] Social History Tobacco Use Types Packs/Day [...] Sign Reading Time Taken Comments Blood Pressure 139/90 09/13/2008 10:15 AM CDT Pulse 63 09/13/2008 10:15 AM CDT Temperature - - Respiratory Rate - - Oxygen Saturation - - Inhaled Oxygen Concentration - - Weight 103 kg (227 lb) 09/13/2008 10:15 AM CDT Height 170.2 cm (5' 7) 09/13/2008 10:15 AM CDT Body Mass Index 35.55 09/13/2008 10:15 AM CDT documented in this encounter Patient Instructions Patient InstructionsEliza Moyer - 09/13/2008 11:34 AM CDT GERD information provided. Schedule an Upper Endoscopy. WednesdayOctober 30 at 10:15am at the [address] If you have any questions or concerns, please call the [facility] at [phone]. documented in this encounter Progress Notes Mckenna Taylor - 09/13/2008 5:02 PM CDT GI staff note Date of Service: 09/13/2008 Asked to see patient by Dr. Gonzalez for diarrhea. History of Present Illness: 43 yo female I am seeing for subacute diarrhea. She was in to the er about 1 month ago with acute onset bloody diarrhea with abd cramping. Had elevated wbc count but no fever. No travel. No one else sick at home. Went into local [facility] and was seen. Had stool studies which were neg and ct scan which per patient was ok. Given cipro/flagyl and sent home. [place] bad for 3 days. Missed work. Started to feel better for a few days then symptoms returned again while on the abx. Went to see primary provider who called me and I rec another week+of abx. She started to improve then. Was having 5 loose bm per day still and was sent to us. Now doing much better only 3 soft/formed bm per day. No signif cramping or bleeding. No urgency. No noct stools. No chronic gi complaints. Nl has 1bm per day. Also has gerd for 7 years. Worse lately. Recently switched from zantac to prilosec. Helps a lot. No longer needing tums. She is concerned about salvage determiner damage. PMH Polycystic kidneys GERD HTN Asthma Meds Reviewed SH Smokes 1/4 ppd, occ etoh, works in town here, Has 2 adopted children FH No gi dz, father with some gi complaints ROS Neg and complete Exam BP 139/90 Pulse 63 Ht 5' 7 (1.702 m) Wt 227 lb (102.967 kg) Gen: pleasant, supine, in NAD, appears healthy Heent: Nl Lungs: Nl CV: nl Abd: ND, +BS, nontender to palpation, no organomegaly appreciated Ext: no edema Skin: No rashes Labs Per patient routine stool cx neg CT: Per patient, no cancer or diverticulitis Assessment and Plan: Acute to subacute diarrhea: Likely infectious, now cleared but left with some post-infectious ibs. Improving overall. Try probiotics, yogurt. If persistant in another month would do colonoscopy. GERD: Schedule egd. Cont ppi. GERD sheet. Mckenna Taylor MD Gastroenterology Staff documented in this encounter Plan of Treatment Not on filedocumented as of this encounter Visit Diagnoses Diagnosis Diarrhea - Primary Reflux esophagitis documented in this encounter Care Teams Mathematical Technician Relationship Specialty Start Date End Date Tiffany Gonzalez, PALOMO, DNP PCP - General 01/16/00 02/03/16 [address] [place] [id number] documented as of this encounter
--- OUTSIDE RECORDS SUMMARY | 2021-12-28 14:16 | XMS_ITS | Encounter Summary ---
:1965 Author Organization [facility] Address [address] [place] [address] Care Team Providers Name Role Phone Tiffany Gonzalez APRN, DNP Primary Care Provider Reason for Visit Reason Comments HEARTBURN Encounter Details Date Type Department Care Team Description 10/30/2008 Office Visit [facility] Mckenna Taylor, Heartburn (Primary [facility] Dx) [address] [place] [address] [place], [place] [phone] Social History Tobacco Use Types Packs/Day Years Used Date Smoking Tobacco: Every Day Cigarettes 0.5 Comments: Restarted 12/2005; prior to janice t stopped for 8 months Alcohol Use Standard Drinks/Week Comments Yes 0.8 (1 standard drink = 0.6 oz pure alco hol) rarely Sex Assigned at Date Recorded Not on file documented as of this encounter Progress Notes Mckenna Taylor - 10/31/2008 10:59 PM CDT Mckenna Taylor - 10/31/2008 10:59 PM CDT Mckenna Taylor - 10/31/2008 7:52 AM CDT Mckenna Taylor - 10/30/2008 11:49 AM CDT CC: Esophogastroduodenoscopy (EGD) HPI: Patient here for EGD. History of gastroesophageal reflux disease. On ppi since august. PMH: Reviewed PSH: Reviewed Social Hx: Reviewed Allergies: Reviewed Medications: Reviewed Famility History: Reviewed Review of Systems: Pertinent ROS done. Exam: Alert, awake and oriented. Vitals: See Provation nursing notes. Head and Neck: Examined Chest: Clear to auscultation. No wheezes or rales. CVS: Regular, rate, rhythm. Abdomen: Abdomen soft, non-tender without masses or organomegaly. Extremities: Examined ASA: P2 A patient with mild systemic dz Plan: EGD Mckenna Taylor MD 10/30/2008, 11:28 AM documented in this encounter Plan of Treatment Not on filedocumented as of this encounter Procedures Procedure Name Priority Date/Time Associated Diagnosis Comme nts GI UPPER ENDOSCOPY Routine 10/30/2008 11:30 AM Heartburn Re sults for this CDT procedure are i n the results section. documented in this encounter Results GI UPPER ENDOSCOPY [[id number]] (10/30/2008 11:30 AM CDT) P athologist Signature URL Link [facility]) Specimen (Source) Anatomical Collection Method Collection Time Re ceived Time Location / / Volume Laterality 10/30/2008 11:30 AM CDT Narrative [facility] - 10/30/2008 11:55 AM CDT Indications: ? Heartburn Providers: ? Cheko Reilly, Desean Black RN Referring MD: ?Tiffany oreilly MD Medicines: ? Exactacaine Sp ray 2 doses, Fentanyl IV 100 mcgs, ? Versed/Mi dazolam IV 2 mgs Complications: ? No immediate com plications Procedure: ? - Prior to the procedure, a History and Physical was ? performed , and patient medication allergies have been ? reviewed. The patient's tolerance of previous ? anesthesi a has been reviewed. ? - The ris ks and benefits of the procedure and the ? sedation options and risks were discussed with the ? patient. All questions were answered and informed ? consent w as obtained. ? - ASA Gra de Assessment: I - A normal, healthy patient. ? After obt aining informed consent, the endoscope was ? passed un [place] direct vision. Prior to sedation, ? patient i dentity and procedure was reverified. ? Throughou t the procedure, the patient's blood ? pressure, pulse, and oxygen saturations were ? monitored continuously. The endoscope was introduced ? through t he mouth, and advanced to the second part of ? duodenum. The upper GI endoscopy was accomplished ? without d ifficulty. The patient tolerated the ? procedure well. Findings: ? LA Grade A (one or more mucosal b reaks less than 5 mm, not extending ? between tops of 2 mucosal folds) esophagitis with no bleeding was ? found at the gastroesophageal jerry ction. The exam was otherwise ? without abnormality. Impression: ?- LA Grade A r eflux esophagitis. ? - The exa mination was otherwise normal. Recommendation: ?- Continue prese nt medications. CPT Codes(s): ?66940, Upper ga strointestinal endoscopy including ? esophagus , stomach, and either the duodenum and/or ? jejunum a s appropriate; diagnostic, with or without ? collectio n of specimen(s) by brushing or washing ? (separate procedure) ICD9 Code(s): ?530.11, Reflux esophagitis ? 787.1, Richie reynolds CPT?? 2007 [employer]. All Rights Reserved. No fee schedules, basic units, relative values or related listings are included in CPT. A does not directly o r indirectly practice medicine or dispense medical services. A assumes n o liability for data contained or not contained herein. CPT is a registered trademark of the [employer]. The codes documented in this report are preliminary and upon square dance caller review may be revised to meet current complianc e requirements. Attending Participation: Mckenna Taylor MD Signed Date: 10/30/2008 11:54 AM Number of Addenda: 0 This report has been signed electronical ly. Note initiated on 10/30/2008 11:29 AM Procedure Note Mckenna Taylor - 10/30/2008Formatting of t his note might be different from the original. Indications: Heartburn Providers: Mckenna Taylor MD, Desean branch, RN Referring MD: Tiffany Gonzalez MD Medicines: Exactacaine [place] 2 doses, Fe ntanyl IV 100 mcgs, Versed/Midazolam IV 2 mgs Complications: No immediate complication s Procedure: - Prior to the procedure, a H istory and Physical was performed, and patient medication aller gies have been reviewed. The patient's tolerance of pr evious anesthesia has been reviewed. - The risks and benefits of the procedu re and the sedation options and risks were discuss ed with the patient. All questions were answered an d informed consent was obtained. - ASA Grade Assessment: I - A normal, h ealthy patient. After obtaining informed consent, the e ndoscope was passed under direct vision. Prior to se dation, patient identity and procedure was reve rified. Throughout the procedure, the patient's blood pressure, pulse, and oxygen saturations were monitored continuously. The endoscope w as introduced through the mouth, and advanced to the second part of duodenum. The upper GI endoscopy was ac complished without difficulty. The patient tolerat ed the procedure well. Findings: LA Grade A (one or more mucosal breaks less than 5 mm, not extending between tops of 2 mucosal folds) esopha gitis with no bleeding was found at the gastroesophageal junction. The exam was otherwise without abnormality. Impression: - LA Grade A reflux esophagi tis. - The examination was otherwise normal. Recommendation: - Continue present medic ations. CPT Codes(s): 46878, Upper gastrointesti nal endoscopy including esophagus, stomach, and either the duod enum and/or jejunum as appropriate; diagnostic, wit h or without collection of specimen(s) by brushing o r washing (separate procedure) ICD9 Code(s): 530.11, Reflux esophagitis 787.1, Heartburn CPT?? 2007 [employer]. All Rights Reserved. No fee schedules, basic units, relative values or related listings are included in CPT. AMA does not directly o r indirectly practice medicine or dispense medical services. AMA assumes n o liability for data contained or not contained herein. CPT is a registered trademark of the [employer]. The codes documented in this report are preliminary and upon square dance caller review may be revised to meet current complianc e requirements. Attending Participation: Mckenna Taylor MD Signed Date: 10/30/2008 11:54 AM Number of Addenda: 0 This report has been signed electronical ly. Note initiated on 10/30/2008 11:29 AM Mckenna Taylor MD [facility] Performing Organization Address City/State/ZIP Code Phon e Number [facility] [place], [place] documented in this encounter Visit Diagnoses Diagnosis Heartburn - Primary documented in this encounter Care Teams Linen Tech Relationship Specialty Start Date End Date Tiffany Gonzalez APRN, DNP PCP - General 01/16/00 02/03/16 [address] [place] [id number] documented as of this encounter
--- OUTSIDE RECORDS SUMMARY | 2021-12-28 14:16 | XMS_ITS | Encounter Summary ---
:1965 Author Organization [facility] Address [address] [place] [address] Care Team Providers Name Role Phone Tiffany Gonzalez APRN, DNP Primary Care Provider [phone] Reason for Visit Reason Comments ALLERGY SHOT Encounter Details Date Type Department Care Team Description 01/22/2009 Office Visit [facility] Need for Desensitization to Allergy Clinic Allergens (Primary Dx) [address] [place] [address] Social History Tobacco Use Types Packs/Day Years Used Date Smoking Tobacco: Every Day Cigarettes 0.5 Comments: Restarted 12/2005; prior to janice t stopped for 8 months Alcohol Use Standard Drinks/Week Comments Yes 0.8 (1 standard drink = 0.6 oz pure alco hol) rarely Sex Assigned at Date Recorded Not on file documented as of this encounter Progress Notes July Barboza - 01/22/2009 2:45 PM CDT S Stephanie Norman here for [...] allergy shot(s) given today July Barboza RN documented in this encounter Plan of Treatment Not on filedocumented as of this encounter Visit Diagnoses Diagnosis Need for desensitization to allergens - Primary documented in this encounter Care Teams Senior Hardware Design Engineer Relationship Specialty Start Date End Date Tiffany Gonzalez, ICER HAND, DNP PCP - General 01/16/00 02/03/16 [address] [place] [id number] documented as of this encounter
--- OUTSIDE RECORDS SUMMARY | 2021-12-28 14:16 | XMS_ITS | Encounter Summary ---
:1965 Author Organization [employer] ?[facility] Address [address] [place] [address] Care Team Providers Name Role Phone Tiffany Gonzalez APRN, DNP Primary Care Provider Reason for Visit Reason Comments ROUTINE HEALTH MAINTENANCE Pap, pt is fasting for lab work MEDICATION, NOS Would like to get all her sc ripts ordered, so they all at same date Encounter Details Date Type Department Care Team Description 07/05/2008 Office Visit Elisabeth Gonzalez, Preventative [facility] Care (Primary Dx); Practice Tiffany Still, Sleep Disturbance; [address] [place] Depressive Disorder, not Elsewhere Class ified; [place], [place] [address] Tobacco Use Disorder; [address] [place] [address] Hypercholesterolemia with Hyperglyceride marilee; [phone] ASTHMA, UNSPECI FIED; (Work) ALLERGIC RHINITIS NOS; [phone] POLYCYSTIC KIDN EY, UNSPEC; (Fax) HYPERTENSION NO S; Radiological Ex amination, not Elsewhere Classified; Breast Screenin g, Unspecified; Screening for M alignant Neoplasm of the Cervix; Reflux Esophagi tis Social History Tobacco Use Types Packs/Day Years [...] Sign Reading Time Taken Comments Blood Pressure 114/80 07/05/2008 9:31 AM CDT Pulse 72 07/05/2008 9:31 AM CDT Temperature - - Respiratory Rate - - Oxygen Saturation - - Inhaled Oxygen Concentration - - Weight 101.2 kg (223 lb) 07/05/2008 9:31 AM CDT Height 170.2 cm (5' 7) 07/05/2008 9:31 AM CDT Body Mass Index 34.93 07/05/2008 9:31 AM CDT documented in this encounter Patient Instructions Patient InstructionsCoDionne santoro - 07/05/2008 10:43 AM CDT Requested drug refills are approved today for celexa, simvastatin, trazodone, chantix. For future med refills: We have sent your ALL prescription electronically to [facility] . Please contact customer service to verify your shipping and payment information. Call [phone] or . Please set up a future mammogram appointment by calling [phone] GO TO LAB TODAY Will get results and comments online. Schedule appointment with Urology re: stress incontinence (onset summer 2007); provider handout given. Use Daily Bladder Diary and bring to urology appointment. documented in this encounter Progress Notes Diamond Benedict - 07/06/2008 8:27 AM CDT Quick Note: Polycystic Kidney Pt has not been seen since 02/[address] Davi Esparza CREATININE (mg/dl) Date Value 07/05/08 1.4* 06/17/05 1.3 01/15/05 1.4* POTASSIUM (mmol/L) Date Value 07/05/08 5.5* 06/17/05 4.6 06/02/04 5.1 Tiffany Gonzalez - 07/05/2008 9:42 AM CDT S Carrie Norman is a 43 yr old female in for routine health maintenance. Current concerns: 1. Sleep disturb: nightly wakening 2-3x/night with 2-3 hour spans of uninterrupted sleep without theuse of trazodone. She would like refill for Trazodone as this has worked well in past for sleep disturbance. 2. Incontinence issues: onset summer 2007, incontinent of urine with running and sneezing. Has stopped playing softball and running due to this issue. 3. Medication refills Menses are regular and predictable. PMS symptoms improved with celexa. Sexual activity: sexually active with female partner. Patient Active Problem List Diagnoses Code ??? 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 REFLUX ESOPHAGITIS 530.11 ??? POLYCYSTIC KIDNEY, UNSPEC 753.12 ??? HYPERTENSION NOS 401.9 ??? MENSTRUAL DISORDER NOS 626.9 ??? ENDOMETRIAL POLYP 621.0 ??? ALLERGIC RHINITIS NOS 477.9 ??? ASTHMA, UNSPECIFIED 493.90 ??? Hypercholesterolemia with Hyperglyceridemia 272.2BP ??? Tobacco Use Disorder 305.1 CHLAMYDIA TRACHOMATIS (no units) Date Value 06/01/03 Negative GC (N. GONORRHOEAE) (no units) Date Value 06/01/03 Negative HGB (g/dl) Date Value 03/27/04 13.2 Contraception: none. Present dietary habits: low Na/low K and three meals a day ,adequate fruit and vegetables Calcium intake: three or more servings daily Present exercise habits: sedentary, beginning to walk with warm weather approaching. Past Surgical History Procedure Date ? ? Hysteroscpy surg; w/bx &/ polypect 03/31/04 Family History Problem Relation ??? Cancer, Breast Mother breast, Dx age 40. 1 month later. ??? Cancer, Breast Father breast. Dx age 65. 2006. Heart attack in mid - 60s. ??? Kidney Disorder Father polycystic kidney disease ??? Depression Mother ??? Depression Other uncle committed suicide History Social History ??? Marital Status: Domestic Partner Spouse Name: Shreyas Number of Children: 2 ??? 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 Tobacco Use: Yes -- 0.5 packs/day Restarted 12/2005; prior to that stopped for 8 months ??? Alcohol Use: 0.5 oz/week 1 Can(s) of beer per week rarely ??? Drug [...] Helmet No ??? Seat Belt No ??? Self-exams No Current outpatient prescriptions Medication Sig ??? CELEXA 40MG ORAL TABS One by mouth every day ??? CHANTIX 1 MG (MAINTENANCE)OR TABS Take 1mg tablet by mouth two times each day. Chantix should betaken after eating and with a full glass of water. Chantix should be taken for 12-24 weeks. NOTE: Dispense as maintenance for refills only, do not dispense with Chantix starter agustín ? ? CHANTIX STARTING MONTH AGUSTÍN 0.5 MG X 11 & 1 MG X 42 OR MISC Start 1 week before you stop smoking with 0.5mg by mouth once daily on days 1-3, then 0.5mg two time each day on days 4-7, then 1mg two time each day. Chantix should be taken for 12-24 weeks. Chantix should be taken after eating and with a full glass of water. ??? CLARITIN 10 MG OR TABS 1 TABLET DAILY ??? FISH OIL 1000 MG OR CAPS 1 capsule daily ??? LISINOPRIL 20 MG OR TABS Take one tablet by mouth every day. ??? NASONEX 50MCG/ACT NASAL SPRAY Inhale two sprays in each nostril once daily. ??? SIMVASTATIN 40 MG OR TABS Take one half tablet by mouth every day at bedtime. ??? TRAZODONE HCL 100 MG OR TABS Take one half to one tablet by mouth at bedtime. ??? TRIAMCINOLONE ACETONIDE 0.1 % EX CREA Apply to affected area 2-3 times each day. ??? VENTOLIN HFA 108 (90 BASE) MCG/ACT IN AERS 2 puffs every 4-6 hours as needed for asthma symptoms, and/or 5-15 minutes before exercise ??? VITAMIN B COMPLEX OR 1 daily ??? VITAMIN C 500 MG OR TABS 2 tablets daily in cold season ??? ZANTAC 150 MG OR TABS Take one by mouth twice a day Allergies Allergen Reactions ??? Amoxicillin ??? Penicillins ??? Neomycin topical sensitization ??? Beta Adrenergic Blockers Patient is on allergy injections, Beta Blockers contraindicated. If medically necessary, it is OK to prescribe a Beta Ojey, but the allergy injections will need to be discontinued. ROS: CONSTITUTIONAL: Negative EYES: no visual blurring, no double vision, no glaucoma, no cataracts, no eye pain, no color blindness ENT: no abnormally frequent URIs, no bleeding gums, no deafness, no decrease in hearing, no hoarseness, no persistently sore throat, no sinus problems, no tinnitus, no tonsillitis, no vertigo RESPIRATORY: no shortness of breath, no cough, no sputum, no hemoptysis, no bronchitis, (Positive for asthma:well controlled with inhalers; asthma control test score (23)). CARDIOVASCULAR: no palpitations, no tachycardia, no irregular heart beats, no chest pain, no exertional chest pain or pressure, no lower extremity edema, no varicose veins GASTROINTESTINAL: normal appetite, no dysphagia, no nausea, no abdominal pain, no bloating or excessive gassiness, no hemorrhoids, no constipation, no diarrhea, (Positive for reflux: currently on zantac; uses Tums/Rolaids prn 1-2x/week). GENITOURINARY: no dysuria, no frequency, no hematuria, no nocturia, no history of kidney stones, no history of urinary tract infections, no history of sexually transmitted disease, never , (Positive for stress incontinence-see HPI) MUSCULOSKELETAL: no weakness, no nocturnal cramping, no muscle pains, no history of fractures, no chronic or episodic back pain, no arthritis, no history of gout, no fibromyalgia, (Positive for joint pain in bilateral knees/hands: stiffness from softball-catcher position; does not take OTC medications, uses ice/heat/rest with relief). SKIN: no rash, no itch, no scaling, no hair changes, no nail changes, normal bruising, no pigmentation change, (Positive for rash on right dorsal surface of hand-uses triamcinolone 0.1% cream prn with relief. Reports boils on buttocks area about one/month, applies warm heat/water and extracts them in the shower, no s/s of infection). NEUROLOGIC: no numbness or tingling of hands, no numbness or tingling of feet, no tremor, no syncope, no seizures, no paralysis, no involuntary movements, (Positive for hx of migraine PEREZ: one/month (improved over past year) relieved with ice/Excedrin/dark room, lasting 0.5 hour to 10 hours) PSYCHIATRIC: no anxiety, no depression, no excessive alcohol consumption, no illegal drug use, no marital problems, no sexual difficulties, no nervous breakdowns HEMATOLOGIC/LYMPHATIC/IMMUNOLOGIC: no fevers, no night sweats, no chills, no weight loss, no bleeding disorder, no swollen lymph nodes ENDOCRINE: no cold intolerance, no heat intolerance, no goiter, no polyuria, no polydypsia, no polyphagia, no thyroid disorder, no diabetes O BP 114/80 Pulse 72 Ht 5' 7 (1.702 m) Wt 223 lb (101.152 kg) LMP 06/19/2008 Body mass index is 34.93 kg/(m^2). General: cooperative, age appropriate Integument: soft skin with elastic reoil, no lesions, tenderness or edema. Nail beds smooth wit no signs of clubbing. HEENT: Head: Normocephalic with symmetrical facial features; no flaking or lesions on scalp; hair shiny, noalopecia. Eyes: Conjuctiva pink, no exudates. EOM intact, no lid weakness or nystagmus. PERRLA, 4 mm, lilaterally. Corneal light reflex equal and symmetric bilaterally. Fundoscopic exam reveals red reflex, opticdiscs, well-defined boarders, pink retina, and vessels. Ears: External canals clear, no drainage; tympanic membrane bartlett, transucent, light reflex and bony landmarks present. Nose: no flaring or nares; septum midline; no lesions or drainage. Sinuses: No frontal or maxillary sinus tenderness with palpation. Throat & Mouth: Uvula midline, no inflammation, lesions or exudates in throat; tonsils not enlarged. Nodes: non tender, not inflammed. Neck: Trachea midline; thyroid cartilage moves with swallowing, no enlargement or nodules noted. Lungs: Thorax symmetric, no deformities. Respiratory effort even and quiet without use of accessory muscles. Inspiration equals expiration. Resonant precussion in all lung anna. Clear to auscultation, no wheezes or rales. Cardiac/Blood Vessels: Apical pulse palpable. No heaves, lifts, or thrills; S1 & S2 heard without splitting, no murmurs. Radial, brachial pulses regualr rhythm, smooth contour, equal bilaterally 2+; no carotid, renal, or abdominal bruits; no edema, swelling, or tenderness in LE; no superfical varicosities in LE. Breasts: no lymphedema, no nipple changes, no masses or tenderness Abd: Soft, non-tender, no masses, no hepatomegaly or splenomegaly. Aorta midline with no visible pulsations or bruit; active bowel sounds in all four quadrants. No CVA tenderness. : External: femalehair distribution; no masses, lesions, or swelling. Genitalia normal, adnexae negative. Internal: Vaginal mucosa pink and moist with rugae present. No unusal odors. Small amount of vaginaldischarge - white and thick. Cervix pink with nuliparous os; no lesions. Pap obtained, patient gave consent for test. Bimanual: Cervix smooth, firm, mobile. No cervical motion tenderness. Uterus midline, nontender. Ovaries not palpable. Lymphatic: No palpable lymph nodes in neck (occipital, cervical chain, submax, submental), supraclavicular, infaclavicular, axillary. Musculoskeletal: No clicking or tenderness in TMJ. Cervical, thorasic, and lumbar spine in alignment, erect, upright posture. Musculature appears symmetric bilaterally, muscle strength equal bilaterally (+5/5). No edema, ecchymosis, localised erythema, crepitus, or spaticity noted in joints or muscles. Full range of active motion with no pain, locking or clicking. Neurological: Coordinated smooth gait; balance, rapid alternating movements, and cranial nerves II-XII grossly intact. Bicep, Tricep, brachialradial and patellar DTR +2/4. Negative Romberg test. A Encounter Diagnoses Code Name Primary? Qualifier ??? V70.0C Preventative Health Care Yes Plan: SCR PAP SMER; OBTAIN PREP&CONVY-LAB, PAP TEST, ROUTINE ??? 780.50M Sleep Disturbance Plan: TRAZODONE HCL 100 MG OR TABS ??? 311 Depressive Disorder, not Elsewhere Classified Plan: TRAZODONE HCL 100 MG OR TABS ??? 305.1 Tobacco Use Disorder Plan: CHANTIX STARTING MONTH AGUSTÍN 0.5 MG X 11 & 1 MG X 42 OR MISC, CHANTIX 1 MG OR TABS ??? 272.2BP Hypercholesterolemia with Hyperglyceridemia ??? 493.90 ASTHMA, UNSPECIFIED ??? 477.9 ALLERGIC RHINITIS NOS ??? 753.12 POLYCYSTIC KIDNEY, UNSPEC ??? 401.9 HYPERTENSION NOS Plan: UA MICRO IF, BASIC METABOLIC PANEL, TSH, SENSITIVE, LIPID PANEL, FAST > 12 HOUR, AST, ALT (SGPT), CK, TOTAL ??? V72.5 Radiological Examination, not Elsewhere Classified Plan: MAMMOGRAM SCREENING W/CAD BILAT ??? V76.10 Breast Screening, Unspecified Plan: BREAST EXAM (V76.10) ??? V76.2 Screening for Malignant Neoplasm of the Cervix ??? 530.11 Reflux Esophagitis Plan: ZANTAC 150 MG OR TABS P See today's orders and pt instructions for details Patient counseled regarding: increasing physical activity,tobacco use. Patient counseled regarding future preventative services needs. Patient Instructions Requested drug refills are approved today for celexa, simvastatin, trazodone, chantix. For future med refills: We have sent your ALL prescription electronically to [facility] . Please contact customer service to verify your shipping and payment information. Call [phone] or . Please set up a future mammogram appointment by calling [phone] GO TO LAB TODAY Will get results and comments online. Schedule appointment with Urology re: stress incontinence (onset summer 2007); provider handout given. Use Daily Bladder Diary and bring to urology appointment. Dionne Campuzano, RN [employer] SUPERVIS[employer]-Student [facility] Student obtained ROS and PFSH. I refer you to this. I reviewed documentation and this information isaccurate. I repeated the HPI and exam, and did the assessment/plan. documented in this encounter Plan of Treatment Not on filedocumented as of this encounter Procedures Procedure Name Priority Date/Time Associated Diagnosis Comme nts PAP TEST, ROUTINE Routine 07/05/2008 11:36 Preventative Health Results for this AM CDT Care procedure are i n the results section. TSH, SENSITIVE Routine 07/05/2008 11:03 HYPERTENSION NOS Resul ts for this AM CDT procedure are i n the results section. BASIC METABOLIC Routine 07/05/2008 11:03 HYPERTENSION NOS Resu lts for this PANEL AM CDT procedure are i n the results section. UA MICRO IF Routine 07/05/2008 11:03 HYPERTENSION NOS Results for this AM CDT procedure are i n the results section. LIPID PANEL, FAST > Routine 07/05/2008 11:03 HYPERTENSION NOS Results for this 12 HOUR AM CDT procedure are i n the results section. ALT (SGPT) Routine 07/05/2008 11:03 HYPERTENSION NOS Results for this AM CDT procedure are i n the results section. AST Routine 07/05/2008 11:03 HYPERTENSION NOS Results for this AM CDT procedure are i n the results section. CK, TOTAL Routine 07/05/2008 11:03 HYPERTENSION NOS Results for this AM CDT procedure are i n the results section. UA MICRO Routine 07/05/2008 11:03 Results for this AM CDT procedure are i n the results section. documented in this encounter Results PAP TEST, ROUTINE (07/05/2008 11:36 AM CDT) Component Value Ref Test Analysis Performed At [facility] Range Method Time Signature Cytology, (NOTE) [employer] Pap Bb Shot Packer Cytology Report Patient Name: CARRIE NORMAN Taken: 07/05/2008 Received: 07/06/2008 Reported: 07/11/2008 Physician(s): TIFFANY GONZALEZ ([id number]) ?Source of Specimen Liquid routine Pap, cervical/endocervical: ?Specimen Adequacy ?Satisfactory for evaluation. ??Endocervical component present. ? Final Cytologic Interpretation/Result NEGATIVE FOR INTRAEPITHELIAL LESION OR MALIGNANCY (NILM) ? crw2/07/11/2008 Electronically Signed Out By Elzbieta Thomas, ??CT (ASCP ) Elzbieta Thomas, ??CT (ASCP) ?Pap Smear History ?Date of Last Menstrual Period: ? 06/19/08 ? Specimen Anatomical Collection Method Collection Time Receive d Time (Source) Location / / Volume Laterality 07/05/2008 11:36 07/06/2008 AM CDT 12:55 PM CDT Tiffany Gonzalez APRN, DNP LAB_1 Performing Organization Address [facility] Phon e Number [employer] [phone] [facility] [address] [place] [phone] UA MICRO (07/05/2008 11:03 AM CDT) P athologist Signature RBC'S 0-3 0 - 3 /hpf [facility] WBC'S 0-2 0 - 5 /hpf [facility] Epith, Occ /hpf [facility] Squamous Bact Occ [facility] Casts 0 /lpf [facility] Specimen Anatomical Collection Method Collection Time Receive d Time (Source) Location / / Volume Laterality 07/05/2008 11:03 07/05/2008 AM CDT 11:20 AM CDT Tiffany Gonzalez APRN, DNP LAB_1 Performing Organization Address [facility] Phon e Number [employer] [phone] [facility] [address] [place] [phone] CK, TOTAL (07/05/2008 11:03 AM CDT) P athologist Signature CK, Total 116 17 - 142 [facility] U/L Specimen Anatomical Collection Method Collection Time Receive d Time (Source) Location / / Volume Laterality 07/05/2008 11:03 07/05/2008 AM CDT 11:20 AM CDT Tiffany Gonzalez APRN, DNP LAB_1 Performing Organization Address [facility] Phon e Number [facility] [employer] [phone] [facility] [address] [phone] ALT (SGPT) (07/05/2008 11:03 AM CDT) athologist Signature ALT (SGPT) 13 0 - 55 U/L [facility] Specimen Anatomical Collection Method Collection Time Receive d Time (Source) Location / / Volume Laterality 07/05/2008 11:03 07/05/2008 AM CDT 11:20 AM CDT Tiffany Gonzalez APRN, DNP LAB_1 Performing Organization Address [facility] Phon e Number [facility] [employer] [phone] [facility] [address] [place] [phone] AST (07/05/2008 11:03 AM CDT) athologist Signature AST (SGOT) 17 <45 U/L [facility] Specimen Anatomical Collection Method Collection Time Receive d Time (Source) Location / / Volume Laterality 07/05/2008 11:03 07/05/2008 AM CDT 11:20 AM CDT Tiffany Gonzalez APRN, DNP LAB_1 Performing Organization Address [facility] Phon e Number [facility] [employer] [phone] [facility] [address] [place] [phone] LIPID PANEL, FAST > 12 HOUR (07/05/2008 11:03 AM CDT) athologist Signature Cholesterol 178 0 - 199 [facility] mg/dl Triglyceride 131 0 - 149 [facility] mg/dl HDL 49 >40 mg/dl [facility] LDL, Calc. 103 0 - 129 [facility] mg/dl Hours Fasting 15 hours [facility] Specimen Anatomical Collection Method Collection Time Receive d Time (Source) Location / / Volume Laterality 07/05/2008 11:03 07/05/2008 AM CDT 11:20 AM CDT Tiffany Gonzalez APRN, GAIL LAB_1 Performing Organization Address [facility] Phon e Number [facility] [phone] [facility] [address] [phone] TSH, SENSITIVE (07/05/2008 11:03 AM CDT) P athologist Signature TSH, Sensitive 2.38 0.3 - 5.0 [facility] uIU/ml Specimen Anatomical Collection Method Collection Time Receive d Time (Source) Location / / Volume Laterality 07/05/2008 11:03 07/05/2008 AM CDT 11:20 AM CDT Tiffany Gonzalez APRN, DNP LAB_1 Performing Organization Address [facility] Phon e Number [facility] [phone] [facility] [address] [place] [phone] (ABNORMAL) BASIC METABOLIC PANEL (07/05/2008 11:03 AM CDT) Patholo gist Method Time Signature BUN 19 10 - 26 [facility] mg/dl Sodium 138 135 - 145 [facility] mmol/L Potassium 5.5 (H) 3.5 - 5.3 [facility] mmol/L Chloride 107 (H) 95 - 105 [facility] mmol/L CO2 24 22 - 31 [facility] mmol/L Glucose 81 70 - 180 [facility] mg/dl Creatinine 1.4 (H) 0.6 - 1.0 [facility] mg/dl GFR, Estimated 40.9 (L) >60 [facility] ml/min/1. 73m2 GFR, Est., If 49.4 (L) >60 [facility] Black ml/min/1. 73m2 Calcium 9.4 8.6 - [facility] 10.3 mg/dl Anion Gap 7 7 - 17 [facility] (calc.) mmol/L Specimen Anatomical Collection Method Collection Time Receive d Time (Source) Location / / Volume Laterality 07/05/2008 11:03 07/05/2008 AM CDT 11:20 AM CDT Tiffany Gonzalez APRN, DNP LAB_1 Performing Organization Address [facility] Phon e Number [facility] [employer] [phone] [phone] (ABNORMAL) UA MICRO IF (07/05/2008 11:03 AM CDT) athologist Signature Appr Yellow [facility] Appr Clear [facility] Sp Gr 1.010 1.005 - [facility] 1.03 Leuk Tr (A) [facility] Nitr Neg [facility] pH 6.5 4.5 - 8.0 [facility] Prot Neg [facility] mg/dl [facility] Gluc Neg [facility] mg/dl [facility] Ket Neg [facility] mg/dl [facility] Urob 0.2 0.2 - 1.0 [facility] EU/dl Bili Neg [facility] Blood Tr (A) [facility] Specimen Anatomical Collection Method Collection Time Receive d Time (Source) Location / / Volume Laterality 07/05/2008 11:03 07/05/2008 AM CDT 11:20 AM CDT Tiffany Gonzalez APRN, DNP LAB_1 Performing Organization Address [facility] Phon e Number [facility] [employer] [phone] [phone] documented in this encounter Visit Diagnoses Diagnosis Preventative health care - Primary Routine general medical examination at a health care facility Sleep disturbance Sleep disturbance, unspecified Depressive disorder, not elsewhere class ified Tobacco use disorder ([facility]) Tobacco use disorder Hypercholesterolemia with hyperglyceride marilee ([facility]) Mixed hyperlipidemia ASTHMA, UNSPECIFIED Unspecified asthma ALLERGIC RHINITIS NOS Allergic rhinitis, cause unspecified POLYCYSTIC KIDNEY, UNSPEC Polycystic kidney, unspecified type HYPERTENSION NOS Unspecified essential hypertension Radiological examination, not elsewhere classified Breast screening, unspecified Screening for malignant neoplasm of the cervix Reflux esophagitis documented in this encounter Care Teams Ends Breakage Clerk Relationship Specialty Start Date End Date Tiffany Gonzalez APRN, DNP PCP - General 01/16/00 02/03/16 DIPIKA MARRERO [id number] documented as of this encounter
--- OUTSIDE RECORDS SUMMARY | 2021-12-28 14:16 | XMS_ITS | Encounter Summary ---
:1965 Author Organization [facility] Address [address] [place] [address] Care Team Providers Name Role Phone Tiffany Gonzalez APRN, GAIL Primary Care Provider Reason for Visit Reason Comments FOLLOW-UP,ER [facility]- 08/23/19 09-for bloody stools/ FARHAD signed and faxed DIARRHEA Pt still c/o diarrhea/no blo od in stools/3 episodes since 8 am today Encounter Details Date Type Department Care Team Description 08/28/2008 Office Visit [facility] Emily Gonzalez (Primary Dx); [address] Tiffany Still APRN, Tobacco Use Disorder; [place] [address] DNP Asthma with Exacerbation [phone] [address] [place], [place] [id number] (Wo rk) Social History Tobacco Use Types [...] Sign Reading Time Taken Comments Blood Pressure 120/86 08/28/2008 10:01 AM CDT Pulse 69 08/28/2008 10:01 AM CDT Temperature 36.8 ??C (98.2 ??F) 08/28/2008 10:01 AM CDT Respiratory Rate - - Oxygen Saturation 98% 08/28/2008 10:01 AM CDT Inhaled Oxygen Concentration - - Weight 102.1 kg (225 lb) 08/28/2008 10:01 AM CDT Height - - Body Mass Index 35.24 07/05/2008 9:31 AM CDT documented in this encounter Patient Instructions Patient InstructionsTiffany Gonzalez - 08/28/2008 10:46 AM CDT I consulted with , GI specialist. Will add one more week of antibiotics. See med summary for details. You may take 2 immodium every morning and 2 in the evening. Please stop if not needed. Make f/u appt with Tiffany Gonzalez NP after finishing anitibiotics. Albuterol inhaler as directed. documented in this encounter Progress Notes Tiffany Gonzalez - 08/28/2008 5:07 PM CDT SUBJECTIVE: Stephanie Norman is a 43 yr female who presents with concern of persistent diarrhea. Was seen on 08/22/08 with sudden onset of bloody -Bright red blood diarrhea assoc with abd pain/n/v. She was given Cipro and Flagyl by [facility] ER after finding elevated WBC and neutrophils. Pt reports no further bloody diarrhea, but same amount of stools which are green in color. Is not taking any immodium. Frustrated with getting little sleep from having to get up to have bowel movement. Stools are somewhat formed, but break up the minute it hits the toilet water. She denies fatigue,headache,vomiting, body aches, chills, nausea or abd pain today. We did obtain ER records that show stool specimens neg for O+P,e.coli shiga-like toxin,salmonella,campylobacter, shigella. Abd CT was also neg for diverticulitis, other pathology other than known polycystic disease to kidneys,liver. Pt not working due to frequent stools, having fatigue. History Substance Use Topics ??? Tobacco Use: [...] Hyperglyceridemia 272.2BP ??? Tobacco Use Disorder 305.1 Current outpatient prescriptions Medication Sig ??? CELEXA 40 MG OR TABS One by mouth every day ??? CHANTIX 1 MG (MAINTENANCE)OR TABS Take 1mg tablet by mouth two times each day. Chantix should betaken after eating and with a full glass of water. Chantix should be taken for 12-24 weeks. NOTE: Dispense as maintenance for refills only, do not dispense with Chantix starter agustín ??? CHANTIX 1 MG OR TABS Take 1mg tablet by mouth two times each day. Chantix should be taken after eating and [...] and with a full glass of water. ? ? CHANTIX STARTING MONTH AGUSTÍN 0.5 [...] with a full glass of water. ??? CIPROFLOXACIN HCL 500 MG OR TABS Take 1 tablet by mouth twice a day until gone ??? CLARITIN 10 MG OR TABS 1 TABLET DAILY ??? FISH OIL 1000 MG OR CAPS 1 capsule daily ??? LISINOPRIL 20 MG OR TABS Take one tablet by mouth every day. ??? METRONIDAZOLE 500 MG OR TABS Take 1 tablet by mouth twice a day until gone ??? NASONEX 50MCG/ACT NASAL SPRAY Inhale two [...] Take one by mouth twice a day OBJECTIVE: BP 120/86 Pulse 69 Temp 98.2 ??F (36.8 ??C) Wt 225 lb (102.059 kg) SpO2 98% Stephanie Norman is a well developed, well nourished, well groomed with pleasant affect Abdomen: the abdomen is soft without tenderness, guarding, mass, rebound or organomegaly. Bowel sounds are hyperactive. ASSESSMENT: Encounter Diagnoses Code Name Primary? Qualifier ??? 787.91 Diarrhea Yes ??? 305.1 Tobacco Use Disorder ??? 493.92A Asthma with Exacerbation PLAN: See below for plan. Also, discussed tobacco cessation with pt. Patient Instructions I consulted with , GI specialist. Will add one more week of antibiotics. See med summary for details. You may take 2 immodium every morning and 2 in the evening. Please stop if not needed. Make f/u appt with Tiffany Gonzalez NP after finishing anitibiotics. Albuterol inhaler as directed. documented in this encounter Plan of Treatment Not on filedocumented as of this encounter Visit Diagnoses Diagnosis Diarrhea - Primary Tobacco use disorder (HRC) Tobacco use disorder Asthma with exacerbation (HRC) Unspecified asthma, with exacerbation documented in this encounter Care Teams Or Manager Relationship Specialty Start Date End Date Tiffany Gonzalez APRN, DNP PCP - General 01/16/00 02/03/16 [address] [place] [id number] documented as of this encounter
--- OUTSIDE RECORDS SUMMARY | 2021-12-28 14:16 | XMS_ITS | Encounter Summary ---
:1965 Author Organization [facility] Address [address] [place] [address] Care Team Providers Name Role Phone Tiffany Gonzalez APRN, DNP Primary Care Provider Encounter Details Date Type Department Care Team Description 01/04/2009 Imaging [facility] Abdominal Pain, Right Upper [address] [place] [address] Social History Tobacco Use Types Packs/Day Years Used Date Smoking Tobacco: Every Day Cigarettes 0.5 Comments: Restarted 12/2005; prior to janice t stopped for 8 months Alcohol Use Standard Drinks/Week Comments Yes 0.8 (1 standard drink = 0.6 oz pure alco hol) rarely Sex Assigned at Date Recorded Not on file documented as of this encounter Progress Notes Virgilio Perkins - 01/10/2009 2:17 PM CDT Quick Note: To My Care Team: Please call the pt and let her know that her nuc med gallbladder scan was negative. Please inquire whether the pt did develop any of her upper abdominal symptoms replicating an attack during the study (when the CCK injection was administered prison into the study). Please order a CAT scan of the abdomen with oral contrast only (NO IV CONTRAST DUE TO PT'S COMPROMISED RENAL STATUS) to further evaluate cause for the pt's epigastric pain. We will plan on calling herthe results. Thanks, Virgiloi Perkins MD documented in this encounter Plan of Treatment Not on filedocumented as of this encounter Procedures Procedure Name Priority Date/Time Associated Comments Diagnosis NM HEPATOBILIARY WITH Routine 01/04/2009 3:45 PM Abdominal Adriana n, Results for this EJECTION FRACTION CDT Right Upper procedure are in Quadrant the results section. documented in this encounter Results NM HEPATOBILIARY WITH EJECTION FRACTION (01/04/2009 3:45 PM CDT) Anatomical Region Laterality Modality Abdomen Nuclear Medicine Specimen (Source) Anatomical Collection Method Collection Time Re ceived Time Location / / Volume Laterality 01/04/2009 3:45 PM CDT Narrative 01/04/2009 5:51 PM CDT EXAM: Hepatobiliary scan with ejection fraction 01/04/2009 COMPARISON: Ultrasound 01/01/2009 INDICATION: Right upper quadrant pain, n ormal gallbladder ultrasound TECHNIQUE: 8.2 mCi technetium 99m Cholet ec injected and anterior abdominal images obtained for one hour. 2.1 mcg IV Kinevac infused over 30 minutes and dynamic images obtained. FINDINGS: There is prompt uptake and exc retion by the liver and biliary system with small bowel and gallbladder activity noted within 20 minutes. Following CCK analog infusion there is e mptying from the gallbladder with an ejection fraction of 78% which is abo ve the normal range of greater than 30%. IMPRESSION: Normal hepatobiliary scan wi th normal gallbladder emptying. Procedure Note Truong Resendiz Jr. - 01/09/2009Formatt ing of this note might be different from the original. EXAM: Hepatobiliary scan with ejection f raction 01/04/2009 COMPARISON: Ultrasound 01/01/2009 INDICATION: Right upper quadrant pain, n ormal gallbladder ultrasound TECHNIQUE: 8.2 mCi technetium 99m Cholet ec injected and anterior abdominal images obtained for one hour. 2.1 mcg IV Kinevac infused over 30 minutes and dynamic images obtained. FINDINGS: There is prompt uptake and exc retion by the liver and biliary system with small bowel and gallbladder activity noted within 20 minutes. Following CCK analog infusion there is e mptying from the gallbladder with an ejection fraction of 78% which is abo ve the normal range of greater than 30%. IMPRESSION: Normal hepatobiliary scan wi th normal gallbladder emptying. Virgilio Perkins MD RAD NM documented in this encounter Visit Diagnoses Diagnosis Abdominal pain, right upper quadrant documented in this encounter Care Teams Research Center Partner Relationship Specialty Start Date End Date Tiffany Gonzalez APRN, DNP PCP - General 01/16/00 02/03/16 [address] [place] [id number] documented as of this encounter
--- OUTSIDE RECORDS SUMMARY | 2021-12-28 14:16 | XMS_ITS | Encounter Summary ---
:1965 Author Organization [facility] Address [address] [place] [address] Care Team Providers Name Role Phone Tiffany Gonzalez APRN, GAIL Primary Care Provider Reason for Visit Reason Comments ALLERGY SHOT Encounter Details Date Type Department Care Team Description 08/01/2008 [facility] Need for Desensitization to [facility] Clinic Allergens [address] [place] [address] Social History Tobacco Use Types Packs/Day Years Used Date Smoking Tobacco: Every Day Cigarettes 0.5 Comments: Restarted 12/2005; prior to janice t stopped for 8 months Alcohol Use Standard Drinks/Week Comments Yes 0.8 (1 standard drink = 0.6 oz pure alco hol) rarely Sex Assigned at Date Recorded Not on file documented as of this encounter Progress Notes Nelly Ludwig - 08/01/2008 2:08 PM CDT S Stephanie Norman here for [...] full documentation of allergy shot(s) given today at 2:05 pm Nelly Ludwig RN documented in this encounter Plan of Treatment Not on filedocumented as of this encounter Visit Diagnoses Diagnosis Need for desensitization to allergens documented in this encounter Care Teams Brand Marketing Coordinator Relationship Specialty Start Date End Date Tiffany Gonzalez APRN, DNP PCP - General 01/16/00 02/03/16 [address] [place] [id number] documented as of this encounter
--- OUTSIDE RECORDS SUMMARY | 2021-12-28 14:16 | XMS_ITS | Encounter Summary ---
:1965 Author Organization [facility] Address [address] [place] [address] Care Team Providers Name Role Phone Tiffany Gonzalez APRN, DNP Primary Care Provider Reason for Visit Reason Comments ALLERGY SHOT Encounter Details Date Type Department Care Team Description 09/07/2008 [facility] Need for Desensitization to Allergy Clinic Allergens [address] [place] [address] Social History Tobacco Use Types Packs/Day Years Used Date Smoking Tobacco: Every Day Cigarettes 0.5 Comments: Restarted 12/2005; prior to janice t stopped for 8 months Alcohol Use Standard Drinks/Week Comments Yes 0.8 (1 standard drink = 0.6 oz pure alco hol) rarely Sex Assigned at Date Recorded Not on file documented as of this encounter Progress Notes Celsa Meredith - 09/07/2008 3:58 PM CDT S Stephanie Norman here for [...] allergens documented in this encounter Care Teams Wool Dyer Relationship Specialty Start Date End Date Tiffany Gonzalez APRN, DNP PCP - General 01/16/00 02/03/16 [address] [place] [id number] documented as of this encounter
--- OUTSIDE RECORDS SUMMARY | 2021-12-28 14:16 | XMS_ITS | Encounter Summary ---
:1965 Author Organization [facility] Address [address] [place] [address] Care Team Providers Name Role Phone Tiffany Gonzalez APRN, DNP Primary Care Provider Encounter Details Date Type Department Care Team Description 08/03/2008 Imaging [facility] Mammography [address] [place], [place] [address] Social History Tobacco Use Types Packs/Day Years [...] Associated Diagnosis Comme nts MM MAMMOGRAM Routine 08/03/2008 1:48 PM Results f or this SCREENING BILAT W CDT procedure are in CAD the results section. documented in this encounter Results MAMMOGRAM SCREENING BILATERAL (08/03/2008 1:48 PM CDT) Anatomical Region Laterality Modality Breast Bilateral Mammography Specimen (Source) Anatomical Location Collection Method / Collectio n Time Received Time / Laterality Volume Narrative 08/06/2008 2:57 PM CDT BILATERAL FULL FIELD DIGITAL SCREENING MAMMOGRAM Performed on 08/03/2008 Comparison: MAMMOGRAM, SCREENING 07/26/06 Findings: The breasts have scattered fib roglandular densities. There is no radiographic evidence of malignancy. Exa m scanned with a computer-aided device for a second interpretation. Repe at routine screening mammogram in one year is recommended. ACR BI-RADS Category 1: Negative Procedure Note Vicki Solitario Autumn - 08/06/2008Formatting o f this note might be different from the original. BILATERAL FULL FIELD DIGITAL SCREENING M AMMOGRAM Performed on 08/03/2008 Comparison: MAMMOGRAM, SCREENING 07/26/06 Findings: The breasts have scattered fib roglandular densities. There is no radiographic evidence of malignancy. Exam scanned with a computer-aided device for a second interpretation. Repeat routine screening mammogram in one year is recommended. ACR BI-RADS Category 1: Negative Tiffany Gonzalez APRN, DNP RAD AYANNA documented in this encounter Visit Diagnoses Not on filedocumented in this encounter Care Teams Forest Fire Management Officer Relationship Specialty Start Date End Date Tiffany Gonzalez APRN, DNP PCP - General 01/16/00 02/03/16 [address] [place] [id number] documented as of this encounter
--- OUTSIDE RECORDS SUMMARY | 2021-12-28 14:16 | XMS_ITS | Encounter Summary ---
:1965 Author Organization [facility] Address [address] [place] [address] Care Team Providers Name Role Phone Tiffany Gonzalez APRN, DNP Primary Care Provider Reason for Visit Reason Comments ALLERGY SHOT Encounter Details Date Type Department Care Team Description 12/13/2008 [facility] Visit [facility] 401 Need for Desensitization to Allergy Clinic Allergens (Primary Dx) [address] [place] [address] Social History Tobacco Use Types [...] encounter Progress Notes Celsa Meredith E - 12/13/2008 3:58 PM CDT S Stephanie Norman here [...] Primary documented in this encounter Care Teams Through Freight Engineer Relationship Specialty Start Date End Date Tiffany Gonzalez APRN, DNP PCP - General 01/16/00 02/03/16 [address] [place] [id number] documented as of this encounter
--- OUTSIDE RECORDS SUMMARY | 2021-12-28 14:16 | XMS_ITS | Encounter Summary ---
:1965 Author Organization [facility] Address [address] [place] [address] Care Team Providers Name Role Phone Tiffany Gonzalez APRN, DNP Primary Care Provider [phone] Reason for Visit Reason Comments ALLERGY SHOT Encounter Details Date Type Department Care Team Description 12/07/2008 [facility] Visit [facility] 401 Need for Desensitization to Allergy Clinic Allergens (Primary Dx) [address] [place] [address] Social History Tobacco Use Types Packs/Day Years Used Date Smoking Tobacco: Every Day Cigarettes 0.5 Comments: Restarted 12/2005; prior to janice t stopped for 8 months Alcohol Use Standard Drinks/Week Comments Yes 0.8 (1 standard drink = 0.6 oz pure alco hol) rarely Sex Assigned at Date Recorded Not on file documented as of this encounter Progress Notes July Barboza - 12/07/2008 4:00 PM CDT S Stephanie Norman here for [...] Primary documented in this encounter Care Teams Barrel Leveler Relationship Specialty Start Date End Date Tiffany Gonzalez, MANAGER POST, DNP PCP - General 01/16/00 02/03/16 [address] [place] [id number] documented as of this encounter
--- OUTSIDE RECORDS SUMMARY | 2021-12-28 14:16 | XMS_ITS | Encounter Summary ---
:1965 Author Organization [email or web address] Address [address] [place] [address] Care Team Providers Name Role Phone Marcelo Gonzalez APRN, DNP Primary Care Provider Reason for Visit Reason Onset Date Comments Refill 08/07/2008 Encounter Details Date Type Department Care Team Description 08/07/2008 Refill [facility] Marcelo Gonzalez, Refill [address] [place] [address] [address] [facility] [phone] [place] [id number] (Wo rk) Social History Tobacco Use Types Packs/Day Years Used Date Smoking Tobacco: Every Day Cigarettes 0.5 Comments: Restarted 12/2005; prior to janice t stopped for 8 months Alcohol Use Standard Drinks/Week Comments Yes 0.8 (1 standard drink = 0.6 oz pure alco hol) rarely Sex Assigned at Date Recorded Not on file documented as of this encounter Nursing Notes Marcelo Gonzalez - 08/07/2008 12:03 PM CDTApproved Prescriptions: Disp Refills CELEXA 40 MG OR TABS 3mos 3 Sig: One by mouth every day Authorizing Provider: MARCELO GONZALEZ María Barboza - 08/07/2008 10:54 AM CDT Pending Prescriptions: Disp Refills CELEXA 40 MG OR TABS 3mos 3 Sig: One by mouth every day Marcelo Sethi - 08/07/2008 10:50 AM CDT Last fill on [id number] for a quantity of 30. documented in this encounter Plan of Treatment Not on filedocumented as of this encounter Visit Diagnoses Not on filedocumented in this encounter Care Teams Fiction And Nonfiction Prose Writer Relationship Specialty Start Date End Date Marcelo Gonzalez, PALOMO, DNP PCP - General 01/16/00 02/03/16 [address] [place] [id number] documented as of this encounter
--- OUTSIDE RECORDS SUMMARY | 2021-12-28 14:16 | XMS_ITS | Encounter Summary ---
:1965 Author Organization [facility] Address [address] [place] [address] Care Team Providers Name Role Phone Tiffany Gonzalez APRN, DNP Primary Care Provider Reason for Visit Reason Comments ALLERGY SHOT Encounter Details Date Type Department Care Team Description 02/15/2009 [facility] Visit [facility] 401 Need for Desensitization to Allergy Clinic Allergens (Primary Dx) [address] [place] [address] Social History Tobacco Use Types [...] encounter Progress Notes Celsa Meredith E - 02/15/2009 1:56 PM CDT S Stephanie Norman here for [...] Primary documented in this encounter Care Teams Inventory Management Specialist Relationship Specialty Start Date End Date Tiffany Gonzalez APRN, DNP PCP - General 01/16/00 02/03/16 [address] [place] [id number] documented as of this encounter
--- OUTSIDE RECORDS SUMMARY | 2021-12-28 14:16 | XMS_ITS | Encounter Summary ---
:1965 Author Organization [facility] Address [address] [place] [address] Care Team Providers Name Role Phone Tiffany Gonzalez APRN, GAIL Primary Care Provider Encounter Details Date Type Department Care Team Description 08/03/2008 Correspondence None Inactive, Provider BREAST QUESTIONNAIRE Social History Tobacco Use Types Packs/Day Years [...] Notes Interface, In Chrtscr And Scan - 08/08/2008 2:00 PM CDT documented in this encounter Plan of Treatment Not on filedocumented as of this encounter Visit Diagnoses Not on filedocumented in this encounter Care Teams Supervisor Esters And Emulsifiers Relationship Specialty Start Date End Date Tiffany Gonzalez APRN, DNP PCP - General 01/16/00 02/03/16 [address] [place] [id number] documented as of this encounter
--- OUTSIDE RECORDS SUMMARY | 2021-12-28 14:16 | XMS_ITS | Encounter Summary ---
:1965 Author Organization [facility] Address [address] [place] [address] Care Team Providers Name Role Phone Tiffany Gonzalez APRN, DNP Primary Care Provider [phone] Reason for Referral Specialty Diagnoses / Procedures Referred By Contact Refer red To Contact Tiffany Gonzalez APRN, DNP [address] [place] [id number] Referral ID Status Reason Start Date Expiration Date Visits Requ ested Visits Authorized Scheduling Instructions If an appointment with [facility] Ga stroenterology was advised and you have not been contacted to schedule that appointm ent within 3 business days, please call [phone] for assistance. Reason for Visit Reason Comments Follow-up, NOS from 08/28/08 visit Encounter Details Date Type Department Care Team Description 09/06/2008 Office Visit [facility] Lisa, Emily (Primary Dx); [address] Tiffany Still APRN, Tobacco Use Disorder; [place] [address] DNP Bronchitis; [phone] [address] Esophageal Reflux; [place] [address] ASTHMA, UNSPECIFIED [phone] (Wo rk) Social History Tobacco Use Types [...] Sign Reading Time Taken Comments Blood Pressure 120/80 09/06/2008 9:15 AM CDT Pulse 72 09/06/2008 9:15 AM CDT Temperature - - Respiratory Rate - - Oxygen Saturation - - Inhaled Oxygen Concentration - - Weight 103.9 kg (229 lb) 09/06/2008 9:15 AM CDT Height - - Body Mass Index 35.87 07/05/2008 9:31 AM CDT documented in this encounter Patient Instructions Patient InstructionsTiffany Gonzalez - 09/06/2008 9:41 AM CDT Refer to Gastroenterology Stay away from dairy products next 3days then introduce yogurt only and then advance as tolerated. Do this until otherwise advised Gastroenterology. Start omeprazole twice daily x 3d then once daily. Stop ranitidine. documented in this encounter Progress Notes Tiffany Gonzalez - 09/06/2008 9:39 AM CDT SUBJECTIVE: Stephanie Norman is a 43 yr old female here with persistent problems with abd cramping after food, andchange in bowel movements after a probable bacterial intestinal infection from 08/22/08. Green bowelmovements are formed, but turn into powder once it hits toilet water. She is having bowel movements 4-5x day. It is no longer keeping her awake at [facility] for past several days. See her last note from 08/28/08 for details of start of this infection. Yesterday she finished a total of 14d of Cipro and Flagyl. I had consulted with Dr.Karen Taylor regarding this pt on 08/28/08. I was instructed to refer pt to GI with persistent symptoms. This is reason for pt's visit today. Today she feels more abd cramping even without food. She had been feeling bloated with this recent diarrhea illness, but that actually feels better today. Denies fever, blood in stool, nausea or vomiting. 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 All total, had 4days out of work for above illness. 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 Also, her GERD has worsened since taking above meds. Usually is well controlled with ranitidine but having intense heartburn now. Recent intake of coffee burned when it went down to her stomach. She iswondering what to do about this. Also, getting over bronchitis,asthma flare. Feeling better now, min coughing. Denies wheezing. Did quit smoking once for a few days, but restarted today. Patient Active Problem List Diagnoses Code ??? [...] by mouth twice a day OBJECTIVE: BP 120/80 Pulse 72 Wt 229 lb (103.874 kg) PF 500 L/min Stephanie Norman is a well developed, well nourished, well groomed with pleasant affect Abdomen: the abdomen is soft without tenderness, guarding, mass, rebound or organomegaly. Bowel sounds are normal. No epigastric pain on palpation. Chest: Chest is clear, no wheezing or rales ASSESSMENT: Encounter Diagnoses Code Name Primary? Qualifier ??? 787.91 Diarrhea Yes ??? 305.1 Tobacco Use Disorder ??? 490G Bronchitis ??? 530.81 Esophageal Reflux ??? 493.90 ASTHMA, UNSPECIFIED PLAN: Patient Instructions Refer to Gastroenterology Stay away from dairy products next 3days then introduce yogurt only and then advance as tolerated. Do this until otherwise advised Gastroenterology. Start omeprazole twice daily x 3d then once daily. Stop ranitidine. documented in this encounter Plan of Treatment Scheduled Referrals Name Type Priority Associated Diagnoses Order [facility] Referral Routine Diarrhea Ordered: CONSULT-ADULTS documented as of this encounter Visit Diagnoses Diagnosis Diarrhea - Primary Tobacco use disorder ([facility]) Tobacco use disorder Bronchitis Bronchitis, not specified as acute or ch ronic Esophageal reflux ASTHMA, UNSPECIFIED Unspecified asthma documented in this encounter Care Teams Mottler Machine Feeder Relationship Specialty Start Date End Date Tiffany Gonzalez, MANAGER GRANT, DNP PCP - General 01/16/00 02/03/16 [address] [place] [id number] documented as of this encounter
--- OUTSIDE RECORDS SUMMARY | 2021-12-28 14:16 | XMS_ITS | Encounter Summary ---
:1965 Author Organization [facility] Address [address] [place] [address] Care Team Providers Name Role Phone Tiffany Gonzalez APRN, GAIL Primary Care Provider [phone] Reason for Visit Reason Onset Date Comments Appointment 09/06/2008 Encounter Details Date Type Department Care Team Description 09/06/2008 Telephone [facility] 435 Fallon Taylor MD Appointment [facility] [address] [place] [address] [place] [address] [phone] Social History Tobacco Use Types Packs/Day Years Used Date Smoking Tobacco: Every Day Cigarettes 0.5 Comments: Restarted 12/2005; prior to janice t stopped for 8 months Alcohol Use Standard Drinks/Week Comments Yes 0.8 (1 standard drink = 0.6 oz pure alco hol) rarely Sex Assigned at Date Recorded Not on file documented as of this encounter Nursing Notes Mary Anne Caban - 09/07/2008 2:08 PM CDT Stephanie accepted appointment with Dr. Taylor on 09/13/08 at 2:20pm. Mary Anne Caban Julia Ta - 09/07/2008 1:[address] Taylor 2;20 p.m. 09/13/08 Will forward to GI schedulers to call and offer appt. To pt. And book in if confirmed. Julia Ta LPN Deyanira Cruz - 09/06/2008 3:56 PM CDT Patient has an order to be seen in one week d/t persistent diarrhea after bacterial intestinal infection. had consulted with . Could you assist and let me know what Dr. Taylor has in mind for this patient. Thank you, Deyanira Cruz documented in this encounter Plan of Treatment Not on filedocumented as of this encounter Visit Diagnoses Not on filedocumented in this encounter Care Teams Carbon Paste Mixer Operator Relationship Specialty Start Date End Date Tiffany Gonzalez, RIVERBOAT CAPTAIN, DNP PCP - General 01/16/00 02/03/16 [address] [id number] documented as of this encounter
--- OUTSIDE RECORDS SUMMARY | 2021-12-28 14:16 | XMS_ITS | Encounter Summary ---
:1965 Author Organization [facility] Address [address] [place] [address] Care Team Providers Name Role Phone Tiffany Gonzalez APRN, GAIL Primary Care Provider [phone] Reason for Visit Reason Onset Date Comments HEARTBURN 09/05/2008 Encounter Details Date Type Department Care Team Description 09/05/2008 Telephone Careline Tiffanie Browning RN HEARTBURN [address] AFTER [facility]ARE [place], [place] [address] [facility] [phone] [place] [address] Social History Tobacco Use Types Packs/Day Years Used Date Smoking Tobacco: Every Day Cigarettes 0.5 Comments: Restarted 12/2005; prior to janice t stopped for 8 months Alcohol Use Standard Drinks/Week Comments Yes 0.8 (1 standard drink = 0.6 oz pure alco hol) rarely Sex Assigned at Date Recorded Not on file documented as of this encounter Nursing Notes Pari Cannon - 09/05/2008 2:43 PM CDT Reviewed with Cheri Dias. Okay for pt to be seen tomorrow by primary. If pt is having acute sx, she is to go to ER. Pt notified and agreeable with plan. Tiffanie Browning - 09/05/2008 1:05 PM CDT Referred from AC after pt made clinic appt for tomorrow through [email or web address]. Patient comments: Still having issues - done with the antibiotics. Still have minor cramping and very soft stool (formed but very soft - falls apart when flushed). I go about 4-5 times per day-used toonly go once a day. I also have severe heartburn - don't know if that is from the antibiotics or not. It almost brings me to tears sometimes. I have a lot of pain in my esophagus when I drink warm or hot liquids. I think I still have a very mild case of bronchitis, but I'm not coughing much Concern: Was on 2 abx for bloody diarrhea. Was told to return to clinic if not better. Still has the abd cramping but less. The heartburn is worse when she lies down. On ranitadine. Had heartburn this am. Had coffee but that didn't increase sxs. The heartburn started a few days ago. Has had it before but not as bad. Last night she felt like heart was beating hard but had no other sxs at that time. TRIAGE REFERENCE: CHEST PAIN - ADULT CNG (c) 2007 STAT SYMPTOMS None per guideline ASSESSMENT Location: Middle of upper chest, duration of pain is: comes and goes, lasts up to a half hour. Onset of symptoms: Gradual. Quality is: heartburn, severity of pain is: Moderate and Severe Radiation: none Other symptoms: has bronchitis and mild sob Precipitating factors: unknown Relieving factors: none PMH Patient Active Problem List Diagnoses Code ??? 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 REFLUX ESOPHAGITIS 530.11 ??? POLYCYSTIC KIDNEY, UNSPEC 753.12 ??? HYPERTENSION NOS 401.9 ??? MENSTRUAL DISORDER NOS 626.9 ??? ENDOMETRIAL POLYP 621.0 ??? ALLERGIC RHINITIS NOS 477.9 ??? ASTHMA, UNSPECIFIED 493.90 ??? Hypercholesterolemia with Hyperglyceridemia 272.2BP ??? Tobacco Use Disorder 305.1 Other History: hypertension, smoking PLAN Routing to [place] nurse for consult with MD on whether pt can wait until tomorrow's appt or should come in today. Pt able to come in today but is also comfortable waiting until tomorrow. Tiffanie Browning, RN documented in this encounter Plan of Treatment Not on filedocumented as of this encounter Visit Diagnoses Not on filedocumented in this encounter Care Teams Winding Department Supervisor Relationship Specialty Start Date End Date Tiffany Gonzalez APRN, DNP PCP - General 01/16/00 02/03/16 [address] [place] [id number] documented as of this encounter
--- OUTSIDE RECORDS SUMMARY | 2021-12-28 14:16 | XMS_ITS | Encounter Summary ---
:1965 Author Organization [facility] Address [address] [place] [address] Care Team Providers Name Role Phone Tiffany Gonzalez APRN, DNP Primary Care Provider Reason for Visit Reason Comments ALLERGY, SHOTS Encounter Details Date Type Department Care Team Description 12/20/2008 [facility] Visit [facility] 401 Need for Desensitization to Allergy Clinic Allergens (Primary Dx) [address] [place] [address] Social History Tobacco Use Types [...] encounter Progress Notes Celsa Meredith E - 12/20/2008 4:38 PM CDT S Stephanie Norman here for [...] Primary documented in this encounter Care Teams Load Haul Dump Operator Relationship Specialty Start Date End Date Tiffany Gonzalez APRN, DNP PCP - General 01/16/00 02/03/16 [address] [id number] documented as of this encounter
--- OUTSIDE RECORDS SUMMARY | 2021-12-28 14:16 | XMS_ITS | Encounter Summary ---
:1965 Author Organization [facility] Address [address] [place] [address] Care Team Providers Name Role Phone Tiffany Gonzalez APRN, DNP Primary Care Provider [phone] Reason for Visit Reason Comments ABDOMINAL PAIN--RUQ--ED eval for gallbladder Encounter Details Date Type Department Care Team Description 01/02/2009 Office Visit [facility] Virgilio Perkins Abdominal Pain, 401 Surgery Clinic SMD Right Upper Quadrant [address] [facility] (Primary Dx) [place] [address] [place] [address] [phone] (Wo rk) Social History Tobacco Use Types [...] Sign Reading Time Taken Comments Blood Pressure 143/85 01/02/2009 10:54 AM CDT Pulse 67 01/02/2009 10:54 AM CDT Temperature 36.6 ??C (97.9 ??F) 01/02/2009 10:54 AM CDT Respiratory Rate 16 01/02/2009 10:54 AM CDT Oxygen Saturation - - Inhaled Oxygen Concentration - - Weight 104.3 kg (230 lb) 01/02/2009 10:54 AM CDT Height 170.2 cm (5' 7) 01/02/2009 10:54 AM CDT Body Mass Index 36.02 01/02/2009 10:54 AM CDT documented in this encounter Patient Instructions Patient InstructionsVirgilio Perkins - 01/02/2009 11:35 AM CDT Your right upper quadrant pain and tenderness is suspicious for cholecystitis, but your ultrasound and lab tests are inconclusive. A nuclear medicine hepatobiliary HIDA scan is ordered. If this is normal, we will order a CAT scan (with oral and without IV contrast). Please call with any questions: [facility] [phone]. Virgilio Perkins MD documented in this encounter Progress Notes Virgilio Perkins - 01/02/2009 5:18 PM CDT Please see dictation. Pt with biliary colic type attacks and u/s with polycystic liver and kidney disease and no gallstones, gallbladder, or ductular abnormalities noted. Liver and pancreatic enzymes wnl's and WBC mildly elevated at 11.3 with 80% PMN. EGD 2 mo's ago demonstrating mild lower esophagitis otherwise normal findings. A NM HIDA with GB EF calculation was ordered. If this is normal, a CAT scan will be obtained. Considerations for performance of lap jordon were discussed, pending above tests. Virgilio Perkins MD Virgilio Perkins - 01/02/2009 12:00 AM CDT CHIEF COMPLAINT: Right upper quadrant pain. HISTORY OF PRESENT ILLNESS: Stephanie Norman is a 43-year-old white female seen in surgical consultation at the request of Dr. Tiffany Gonzalez for assistance in evaluation and management of right upper quadrant pains. Stephanie has had these more associated with eating, although it has been persistent in states of fasting. She states that the pain is a bit improved but has been present for several days. She was found to have on laboratory testing a white blood cell count of 11.3 with 80% neutrophils. Liver and pancreatic enzymes were unremarkable. An abdominal ultrasound demonstrated polycystic liver and kidney disease (patient with known polycystic kidney disease and is in a [place] Study Cohort. Stephanie denies jaundice, acholic stools, or biliuria. She denies fevers, chills, sweats, dyspepsia, regurgitation, dysphagia. She did have some baseline regurgitation/GERD symptoms chronically, but this has been thoroughly controlled with Prilosec. Two months ago, she had an upper endoscopy, which demonstrated some mild lower esophagitis; otherwise, the study was unremarkable. She denies any urinary or respiratory or cardiac symptoms. She denies neurologic symptoms or urinary symptoms. Past medical history, medications, and allergies are all reviewed and recorded in the Epic record (previous EGD, previous hysteroscopy, and uterine polypectomy, history of hyperlipidemia and hypertension and obesity, BMI 36). Medications are reviewed (lisinopril, simvastatin, trazodone, p.r.n. Ventolin, and Prilosec). ALLERGIES: AMOXICILLIN, PENICILLIN, NEOMYCIN, BETA-BLOCKERS. Positive smoking, one-half pack per day. FAMILY HISTORY: Noncontributory. REVIEW OF SYSTEMS: Negative except for the described above. PHYSICAL EXAM: Vital signs reviewed and are unremarkable and recorded in the Epic record. Neck is supple without lymphadenopathy or thyromegaly. Lungs are clear to auscultation bilaterally. Regular rate and rhythm without murmur. No JVD or edema. Extremities are warm with good capillary refill. Abdomen is slightly obese without hepatosplenomegaly or mass. There is some mild right upper quadrant tenderness. No Winters sign is present. No ventral hernias are noted. IMPRESSION AND PLAN: 1. Right upper quadrant pains, unclear etiology, negative abdominal ultrasound other than polycystic, hepatic, and kidney disease. Liver chemistries are unremarkable, slight elevation and slight left-shift of white blood cell count. At this point, more definitive testing is thought necessary to rule in or rule out gallbladder disease. A nuclear medicine hepatobiliary scan with gallbladder ejection fraction with administered CCK is ordered. If this is positive, we will proceed with laparoscopic cholecystectomy; if this is negative we will proceed with CT scan. We will not use IV contrast as the patient's creatinine is slightly elevated in the 1.4 range with her polycystic kidney disease if CT scan is necessary. A brief discussion regarding proceeding with laparoscopic cholecystectomy if appropriate is entertained including the risks, alternatives, and benefits to laparoscopic cholecystectomy such as bleeding, infection, damage to surrounding structures, need to convert to open procedure, postoperative wound problems, need for perioperative ERCP, life-threatening cardiopulmonary problems and discussed. Patient understands and will consent in the future if appropriate. 2. Past history as described above. P / A tdy cc: Tiffany Gonzalez NP documented in this encounter Plan of Treatment Not on filedocumented as of this encounter Results NM HEPATOBILIARY WITH EJECTION [...] scan wi th normal gallbladder emptying. Virgilio TURK NM documented in this encounter Visit Diagnoses Diagnosis Abdominal pain, right upper quadrant - P rimary Abdominal pain, right upper quadrant documented in this encounter Care Teams Scaffold Erector Relationship Specialty Start Date End Date Tiffany Gonzalez, CHECK PILOT, DNP PCP - General 01/16/00 02/03/16 [address] [id number] documented as of this encounter
--- OUTSIDE RECORDS SUMMARY | 2021-12-28 14:16 | XMS_ITS | Encounter Summary ---
:1965 Author Organization [facility] Address [address] [place] [address] Care Team Providers Name Role Phone Tiffany Gonzalez APRN, DNP Primary Care Provider Reason for Visit Reason Onset Date Comments RESULTS, TEST 01/01/2009 Encounter Details Date Type Department Care Team Description 01/01/2009 Telephone [facility] Tiffany Gonzalez, RESULTS, TEST [address] [place] [address] [address] [facility] [phone] [place] [id number] (Wo rk) Social History Tobacco Use Types Packs/Day Years Used Date Smoking Tobacco: Every Day Cigarettes 0.5 Comments: Restarted 12/2005; prior to janice t stopped for 8 months Alcohol Use Standard Drinks/Week Comments Yes 0.8 (1 standard drink = 0.6 oz pure alco hol) rarely Sex Assigned at Date Recorded Not on file documented as of this encounter Nursing Notes Tiffany Gonzalze - 01/01/2009 5:21 PM CDT Call to discuss lab results. She has appt with Dr. Perkins tomorrow. I tried to call him several times this afternoon. Ultrasound did not look significant, but her bloodwork shows some slight shift differential. She is aware. Doing okay and sounded bright on phone. Contingency plan is if abd pain returns like it was 3d ago, to go to ER. Stephanie Norman verbalizes understanding of recommendations and is in agreement. documented in this encounter Plan of Treatment Not on filedocumented as of this encounter Visit Diagnoses Not on filedocumented in this encounter Care Teams Dry Wall Finisher Relationship Specialty Start Date End Date Tiffany Gonzalez, STATION DETECTIVE, DNP PCP - General 01/16/00 02/03/16 [address] [place] [id number] documented as of this encounter
--- OUTSIDE RECORDS SUMMARY | 2021-12-28 14:16 | XMS_ITS | Encounter Summary ---
:1965 Author Organization [facility] Address [address] [place] [address] Care Team Providers Name Role Phone Tiffany Gonzalez APRN, DNP Primary Care Provider [phone] Reason for Visit Reason Comments ALLERGY SHOT Encounter Details Date Type Department Care Team Description 10/25/2008 [facility] 401 Need for Desensitization to Allergy Clinic Allergens [address] [place] [address] Social History Tobacco Use Types Packs/Day Years Used Date Smoking Tobacco: Every Day Cigarettes 0.5 Comments: Restarted 12/2005; prior to janice t stopped for 8 months Alcohol Use Standard Drinks/Week Comments Yes 0.8 (1 standard drink = 0.6 oz pure alco hol) rarely Sex Assigned at Date Recorded Not on file documented as of this encounter Progress Notes Celsa Meredith - 10/25/2008 1:19 PM CDT S Stephanie Nargis Emerson here [...] allergens documented in this encounter Care Teams Denitrator Operator Relationship Specialty Start Date End Date Tiffany Gonzalez APRN, DNP PCP - General 01/16/00 02/03/16 [address] [id number] documented as of this encounter
--- OUTSIDE RECORDS SUMMARY | 2021-12-28 14:16 | XMS_ITS | Encounter Summary ---
:1965 Author Organization [facility] Address [address] [place] [address] Care Team Providers Name Role Phone Tiffany Gonzalez APRN, DNP Primary Care Provider Reason for Visit Reason Comments ALLERGY, SHOTS Encounter Details Date Type Department Care Team Description 07/11/2008 Office Visit [facility] 401 Need for Desensitization to Allergy Clinic Allergens [address] [place] [address] Social History Tobacco Use Types Packs/Day Years Used Date Smoking Tobacco: Every Day Cigarettes 0.5 Comments: Restarted 12/2005; prior to janice t stopped for 8 months Alcohol Use Standard Drinks/Week Comments Yes 0.8 (1 standard drink = 0.6 oz pure alco hol) rarely Sex Assigned at Date Recorded Not on file documented as of this encounter Progress Notes July Barboza - 07/11/2008 1:14 PM CDT S Stephanie Norman here for [...] allergens documented in this encounter Care Teams Filtration Operator Relationship Specialty Start Date End Date Tiffany Gonzalez APRN, DNP PCP - General 01/16/00 02/03/16 [address] [id number] documented as of this encounter
--- OUTSIDE RECORDS SUMMARY | 2021-12-28 14:16 | XMS_ITS | Encounter Summary ---
:1965 Author Organization [employer] [facility] Address [address] [place] [address] Care Team Providers Name Role Phone Tiffany Gonzalez APRN, DNP Primary Care Provider Encounter Details Date Type Department Care Team Description 06/21/2008 Notes/Orders [facility] Tejinder Fraire Need f or Desensitization 401 Allergy Clinic MD to Allergens (Primary Dx) [address] [place] [address] [place], [place] [phone] [address] Social History Tobacco Use Types Packs/Day Years Used Date Smoking Tobacco: Every Day Cigarettes 0.5 Alcohol Use Standard Drinks/Week Comments Yes 0 (1 standard drink = 0.6 oz pure alcoho l) rarely Sex Assigned at Date Recorded Not on file documented as of this encounter Nursing Notes Celsa Meredith - 06/21/2008 4:32 PM CST New orders printed at [facility]. Celsa Meredith RN AGE LINE OPERATOR Celsa Meredith - 06/21/2008 4:20 PM CST Allergy extract expires 06-22-08 at the [facility]-Will have Dr. Fraire review & refill. Celsa Rotell, RN AGE LINE OPERATOR documented in this encounter Plan of Treatment Not on filedocumented as of this encounter Visit Diagnoses Diagnosis Need for desensitization to allergens - Primary documented in this encounter Care Teams Dust Collector Relationship Specialty Start Date End Date Tiffany Gonzalez APRN, DNP PCP - General 01/16/00 02/03/16 [address] [id number] documented as of this encounter
--- OUTSIDE RECORDS SUMMARY | 2021-12-28 14:16 | XMS_ITS | Encounter Summary ---
:1965 Author Organization [facility] Address [address] [place] [address] Care Team Providers Name Role Phone Tiffany Gonzalez APRN, DNP Primary Care Provider Reason for Visit Reason Comments ALLERGY SHOT Encounter Details Date Type Department Care Team Description 08/28/2008 Office Visit [facility] 401 Need for Desensitization to Allergy Clinic Allergens [address] [place] [address] Social History Tobacco Use Types Packs/Day Years Used Date Smoking Tobacco: Every Day Cigarettes 0.5 Comments: Restarted 12/2005; prior to janice t stopped for 8 months Alcohol Use Standard Drinks/Week Comments Yes 0.8 (1 standard drink = 0.6 oz pure alco hol) rarely Sex Assigned at Date Recorded Not on file documented as of this encounter Progress Notes Celsa Meredith - 08/28/2008 4:08 PM CDT S Stephanie Norman here for [...] allergens documented in this encounter Care Teams Plaster Model And Mold Maker Relationship Specialty Start Date End Date Tiffany Gonzalez APRN, DNP PCP - General 01/16/00 02/03/16 [address] [place] [id number] documented as of this encounter
--- OUTSIDE RECORDS SUMMARY | 2021-12-28 14:16 | XMS_ITS | Encounter Summary ---
:1965 Author Organization [facility] Address [address] [place] [address] Care Team Providers Name Role Phone Tiffany Gonzalez APRN, DNP Primary Care Provider [phone] Reason for Referral Specialty Diagnoses / Procedures Referred By Contact Refer red To Contact Tiffany Gonzalez APRN, DNP [address] [facility] [place] [id number] Referral ID Status Reason Start Date Expiration Date Visits Requ ested Visits Authorized Scheduling Instructions [facility], please call [phone] to schedule an appointment at a surgery clinic location convenient for you. Our Surgeons see patients in [facility]. Please expect a follow-up call to assist you if you are not able to call. Reason for Visit Reason Comments FATIGUE x 6 weeks PAIN, NOS Pt c/o pain under rib cage/ radiates to back,sxs started Wednesday pm, still c/o pain but not as severe SHOT,FLU Encounter Details Date Type Department Care Team Description 01/01/2009 Office Visit [facility] TENZIN Gonzalez Pain (Primary Dx); [address] Tiffany Still APRN, Fatigue; [place] [address] DNP POLYCYSTIC KIDNEY, UNSPEC; [phone] [address] Need for Prophylactic Vaccination and In oculation Against Influenza [place] [id number] (Wo rk) Social History Tobacco Use Types [...] Sign Reading Time Taken Comments Blood Pressure 116/86 01/01/2009 8:45 AM CDT Pulse 82 01/01/2009 8:45 AM CDT Temperature 36.8 ??C (98.3 ??F) 01/01/2009 8:45 AM CDT Respiratory Rate - - Oxygen Saturation - - Inhaled Oxygen Concentration - - Weight 105.2 kg (232 lb) 01/01/2009 8:45 AM CDT Height - - Body Mass Index 36.34 09/13/2008 10:15 AM CDT documented in this encounter Patient Instructions Patient InstructionsTiffany Gonzalez - 01/01/2009 9:06 AM CDT GO TO LAB TODAY Will [...] any questions about this visit, please call [phone] or email questions through youronline account. abd ultrasound today. Please be sure to contact us if you do not hear about your ultrasound result by calling [phone]. Make appt with surgeon. Flu shot today. documented in this encounter Progress Notes Tiffany Gonzalez - 01/01/2009 3:11 PM CDT Quick Note: Noted. Tiffany Gonzalez - 01/01/2009 9:04 AM CDT Stephanie Norman is a 43 yr year old female who presents with complaint of abdominal pain for 3 day(s)duration Pain is located in the - RUQ Radiation: Yes, pain radiates to the back Intensity/ pain scale: 9 when first started 3days ago, now 2, CHARACTER OF PAIN:sharp Reports she vomited due to pain a few days ago Alleviating factors: tylenol, excedrin, warm hot towels Has only eaten Cheerios due to pain Aggravating factors: none Bowel movements: lt sahu in color (new) last night, it was formed Recent travel:No Nocturnal pain: was present first night, now better Medications: Current Meds Also, c/o fatigue x 6wks despite no known reason. She is getting good sleep. Asking to have Thyroid checked. No hx of thyroid disorder or fam hx of that. Current outpatient prescriptions Medication Sig ??? CELEXA 40 MG OR TABS One by mouth every day ??? CLARITIN 10 MG OR TABS 1 TABLET DAILY ??? FISH OIL 1000 MG OR CAPS 1 capsule daily ??? LISINOPRIL 20 MG OR TABS Take one tablet by mouth every day. ??? NASONEX 50MCG/ACT NASAL SPRAY Inhale two sprays in each nostril once daily. ??? PRILOSEC 20 MG OR CPDR Take one capsule by mouth every day. ??? SIMVASTATIN 40 MG OR TABS Take [...] in cold season Patient Active Problem List Diagnoses Code ??? 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 REFLUX ESOPHAGITIS 530.11 ??? POLYCYSTIC KIDNEY, UNSPEC 753.12 ??? HYPERTENSION NOS 401.9 ??? MENSTRUAL DISORDER NOS 626.9 ??? ENDOMETRIAL POLYP 621.0 ??? ALLERGIC RHINITIS NOS 477.9 ??? ASTHMA, UNSPECIFIED 493.90 ??? Hypercholesterolemia with Hyperglyceridemia 272.2BP ??? Tobacco Use Disorder 305.1 Usually rare use of NSAIDS due to kidney condition, but has used it above due to pain History Substance Use Topics ??? Tobacco Use: Yes -- 0.5 packs/day Restarted 12/2005; prior to that stopped for 8 months ??? Alcohol Use: 0.5 oz/week 1 Can(s) of beer per week rarely Prior history of similar symptoms of abdominal pain-NO Associated symptoms: anorexia, back pain, change in bowel habits and vomiting Denies fam hx of abd problems OBJECTIVE Vitals Blood pressure 116/86, pulse 82, temperature 98.3 ??F (36.8 ??C), weight 232 lb (105.235 kg) Ear/Nose/Mouth: External ears and nose are without lesions. Auditory canals have no redness, swelling, drainage or obstructing wax. TMs have no dullness, opacity, or bulging. Hearing is grossly intact.Teeth and gums show no sign of inflammation. Oropharynx shows no sign of inflammation or exudate Lymphatic: Neck lymph nodes without enlargement or tenderness Abdominal Exam Inspection Obese Palpation Soft Tender Yes, location- RUQ, RLQ and LLQ and epigastric Is tenderness moderate Bowel sounds hypoactive Heart RRR w/o any murmur Lungs Clear to auscultation without rales or rhonchi Neck: no masses, trachea is midline, no crepitus, thyroid not enlarged Lower ext: no edema ASSESSMENT Encounter Diagnoses Code Name Primary? Qualifier ??? 789.01F RUQ Pain Yes ??? 780.79B Fatigue ??? 753.12 POLYCYSTIC KIDNEY, UNSPEC PLAN See pt instructions for plan/details. Discussed ER visit sooner if symptoms worsen. documented in this encounter Plan of Treatment Scheduled Referrals Name Type Priority Associated Diagnoses Order S chedule SURGERY CONSULT-ADULTS Referral Routine RUQ Pain Order ed: 01/01/2009 documented as of this encounter Procedures Procedure Name Priority Date/Time Associated Comments Diagnosis BASIC METABOLIC Routine 01/01/2009 9:22 AM RUQ Pain Result s for this PANEL,FASTING CDT procedure are in the results section. TSH, SENSITIVE Routine 01/01/2009 9:22 AM Fatigue Results for this CDT procedure are i n the results section. BILIRUBIN, TOTAL & Routine 01/01/2009 9:22 AM RUQ Pain Res ults for this DIRECT CDT procedure are i n the results section. DIFFERENTIAL Routine 01/01/2009 9:22 AM Results f or this CDT procedure are i n the results section. COMPLETE BLOOD Routine 01/01/2009 9:22 AM RUQ Pain Results for this COUNT-NO DIFF CDT procedure are in the results section. AMYLASE Routine 01/01/2009 9:22 AM RUQ Pain Results f or this CDT procedure are i n the results section. LIPASE Routine 01/01/2009 9:22 AM RUQ Pain Results f or this CDT procedure are i n the results section. ALT (SGPT) Routine 01/01/2009 9:22 AM RUQ Pain Results f or this CDT procedure are i n the results section. AST Routine 01/01/2009 9:22 AM RUQ Pain Results f or this CDT procedure are i n the results section. ALKALINE PHOSPHATASE, Routine 01/01/2009 9:22 AM RUQ Pain Results for this TOTAL CDT procedure are i n the results section. DIFF IF Routine 01/01/2009 9:22 AM RUQ Pain Results f or this CDT procedure are i n the results section. documented in this encounter Results US ABDOMEN COMPLETE (01/01/2009 3:00 PM CDT) Anatomical Region Laterality Modality Abdomen Ultrasound Specimen (Source) Anatomical Collection Method Collection Time Re ceived Time Location / / Volume Laterality 01/01/2009 3:00 PM CDT Narrative 01/01/2009 3:02 PM CDT Ultrasound Abdomen Complete 01/01/2009 Comparison: CT scan of the abdomen and p ines, 05/10/2003. Indication: Nausea and vomiting. Tendern ess. Evaluate for gallbladder pathology. Technique: Caldera scale, color Doppler and spectral waveform analysis ultrasound utilized. Findings: The gallbladder and bile ducts are unremarkable. No sonographic Winters's sign. Common duct measures 5 mm in caliber. Multiple anechoic cystic lesions are present within the li steve consistent with patient's known polycystic kidney disease. No solid hep atic lesions are definitely seen. Evaluation for intrahepatic biliary dila tation is difficult given extensive cystic changes of the liver. The visualized pancreas is normal. The p ancreatic tail is obscured by bowel gas. The spleen is normal in length giovanny suring 9.1 cm. The right and left kidneys measure 17.5 cm and 17.3 cm in l ength, respectively. No hydronephrosis. Innumerable cystic lesio ns involving both kidneys are seen from polycystic kidney disease without s olid mass. The abdominal aorta is not aneurysmal as seen. The IVC is paten t at the level of the liver. The main portal vein is patent with normal a ntegrade flow. There is no abdominal ascites. Impression: 1. No evidence of cholelithiasis. 2. Innumerable cystic lesions involving the liver and bilateral kidneys consistent with known polycystic kidney disease. No solid hepatic or renal lesions are identified. Procedure Note Lex Hurley Autumn - 01/01/2009Formatti ng of this note might be different from the original. Ultrasound Abdomen Complete 01/01/2009 Comparison: CT scan of the abdomen and p ines, 05/10/2003. Indication: Nausea and vomiting. Tendern ess. Evaluate for gallbladder pathology. Technique: Caldera scale, color Doppler and spectral waveform analysis ultrasound utilized. Findings: The gallbladder and bile ducts are unremarkable. No sonographic Winters's sign. Common duct measures 5 mm in caliber. Multiple anechoic cystic lesions are present within the li steve consistent with patient's known polycystic kidney disease. No solid hep atic lesions are definitely seen. Evaluation for intrahepatic biliary dila tation is difficult given extensive cystic changes of the liver. The visualized pancreas is normal. The p ancreatic tail is obscured by bowel gas. The spleen is normal in length giovanny suring 9.1 cm. The right and left kidneys measure 17.5 cm and 17.3 cm in l ength, respectively. No hydronephrosis. Innumerable cystic lesio ns involving both kidneys are seen from polycystic kidney disease without s olid mass. The abdominal aorta is not aneurysmal as seen. The IVC is paten t at the level of the liver. The main portal vein is patent with normal a ntegrade flow. There is no abdominal ascites. Impression: 1. No evidence of cholelithiasis. 2. Innumerable cystic lesions involving the liver and bilateral kidneys consistent with known polycystic kidney disease. No solid hepatic or renal lesions are identified. Tiffany Gonzalez APRN, DNP RAD US (ABNORMAL) DIFFERENTIAL (01/01/2009 9:22 AM CDT) [facility] Method Time Signature PMN/Band 80 (H) 43 - 72 % [facility] Lymph 11 (L) 17 - 43 % [facility] Berkshire 4 4 - 12 % [facility] Eos 4 0 - 8 % [facility] Baso 1 0 - 1 % [facility] Neutrophil 9.0 (H) 1.8 - 7.7 [facility] Absolute k/ul Lymph Absolute 1.3 1.0 - 4.8 [facility] k/ul Berkshire Absolute 0.4 0.1 - 0.7 [facility] k/ul Eos Absolute 0.5 0.0 - 0.5 [facility] k/ul Baso Absolute 0.1 0.0 - 0.2 [facility] k/ul Specimen Anatomical Collection Method Collection Time Receive d Time (Source) Location / / Volume Laterality 01/01/2009 9:22 AM 9 9:49 CDT AM CDT Tiffany Gonzalez APRN, DNP LAB_1 Performing Organization Address City/[facility] Phon e Number [facility] [phone] [phone] TSH, SENSITIVE (01/01/2009 9:22 AM CDT) athologist Signature TSH, Sensitive 1.49 0.3 - 5.0 [facility] uIU/ml Specimen Anatomical Collection Method Collection Time Receive d Time (Source) Location / / Volume Laterality 01/01/2009 9:22 AM 9 9:49 CDT AM CDT Tiffany Gonzalez APRN, DNP LAB_1 Performing Organization Address [facility] Phon e Number [facility] [employer] [employer] [phone] [address] DIFF IF (01/01/2009 9:22 AM CDT) [facility] Method Time Signature Diff If Diff [facility] Indicated Specimen Anatomical Collection Method Collection Time Receive d Time (Source) Location / / Volume Laterality 01/01/2009 9:22 AM 9 9:49 CDT AM CDT Tiffany Gonzalez APRN, DNP LAB_1 Performing Organization Address [facility] Phon e Number [facility] [phone] [facility] [address] [address] (ABNORMAL) HEMOGRAM/PLTS (01/01/2009 9:22 AM CDT) athologist Signature WBC 11.3 (H) 4.0 - 11.0 [facility] k/ul RBC 4.27 4.0 - 5.2 [facility] M/ul Hemoglobin 13.1 12.0 - [facility] 16.0 g/dl HCT 39.2 36.0 - [facility] 46.0 % MCV 91.8 80 - 100 [facility] fl MCH 30.6 26 - 34 pg [facility] MCHC 33.4 32 - 36 [facility] g/dl RDW 12.4 11.5 - [facility] 14.5 % Platelets 340 150 - 450 [facility] k/ul Specimen Anatomical Collection Method Collection Time Receive d Time (Source) Location / / Volume Laterality 01/01/2009 9:22 AM 9 9:49 CDT AM CDT Tiffany Gonzalez APRN, DNP LAB_1 Performing Organization Address [facility] Phon e Number [facility] [employer] [phone] [facility] [address] [place] [phone] (ABNORMAL) BASIC METABOLIC PANEL,FASTING (01/01/2009 9:22 AM CDT) Component Value Ref Test Analysis Performed At [facility] Range Method Time Signature BUN 15 10 - 26 [facility] mg/dl Sodium 138 135 - [facility] 145 mmol/L Potassium 4.6 3.5 - [facility] 5.3 mmol/L Chloride 108 (H) 95 - 105 [facility] mmol/L CO2 24 22 - 31 [facility] mmol/L Glucose 84 70 - 100 [facility] mg/dl Hours Fasting Information hours [facility] Not Given Creatinine 1.4 (H) 0.6 - [facility] 1.0 mg/dl GFR, 40.9 (L) >60 [facility] Estimated ml/min/1 .73m2 GFR, Est., If 49.4 (L) >60 [facility] Black ml/min/1 .73m2 Calcium 9.0 8.6 - [facility] 10.3 mg/dl Anion Gap 6 (L) 7 - 17 [facility] (calc.) mmol/L Specimen Anatomical Collection Method Collection Time Receive d Time (Source) Location / / Volume Laterality 01/01/2009 9:22 AM 9 9:49 CDT AM CDT Tiffany Gonzalez APRN, DNP LAB_1 Performing Organization Address [facility] Phon e Number [employer] [phone] [facility] [address] [place] [phone] LIPASE (01/01/2009 9:22 AM CDT) athologist Signature Lipase 44 0 - 52 U/L [facility] Comment: Performed at [facility] Specimen Anatomical Collection Method Collection Time Receive d Time (Source) Location / / Volume Laterality 01/01/2009 9:22 AM 9 9:49 CDT AM CDT Tiffany Gonzalez APRN, DNP LAB_1 Performing Organization Address [facility] Phon e Number [employer] [phone] [facility] [address] [place] [phone] AMYLASE (01/01/2009 9:22 AM CDT) athologist Signature Amylase 38 29 - 103 [facility] U/L Specimen Anatomical Collection Method Collection Time Receive d Time (Source) Location / / Volume Laterality 01/01/2009 9:22 AM 9 9:49 CDT AM CDT Tiffany Gonzalez APRN, DNP LAB_1 Performing Organization Address [facility] Phon e Number [employer] [phone] [facility] [address] [phone] BILIRUBIN, TOTAL & DIRECT (01/01/2009 9:22 AM CDT) P athologist Signature Bilirubin, 0.4 0.2 - 1.2 [facility] Total mg/dl Bilirubin, 0.1 0.1 - 0.4 [facility] Direct mg/dl Specimen Anatomical Collection Method Collection Time Receive d Time (Source) Location / / Volume Laterality 01/01/2009 9:22 AM 9 9:49 CDT AM CDT Tiffany Gonzalez APRN, DNP LAB_1 Performing Organization Address [facility] Phon e Number [facility] [employer] [phone] [facility] [address] [place] [phone] ALKALINE PHOSPHATASE, TOTAL (01/01/2009 9:22 AM CDT) [facility] gist Method Time Signature Alkaline 38 34 - 104 [facility] Phosphatase U/L Specimen Anatomical Collection Method Collection Time Receive d Time (Source) Location / / Volume Laterality 01/01/2009 9:22 AM 9 9:49 CDT AM CDT Tiffany Gonzalez APRN, DNP LAB_1 Performing Organization Address [facility] Phon e Number [employer] [phone] [facility] [address] [place] [phone] ALT (SGPT) (01/01/2009 9:22 AM CDT) athologist Signature ALT (SGPT) 13 0 - 55 U/L [facility] Specimen Anatomical Collection Method Collection Time Receive d Time (Source) Location / / Volume Laterality 01/01/2009 9:22 AM 9 9:49 CDT AM CDT Tiffany Gonzalez APRN, DNP LAB_1 Performing Organization Address [facility] Phon e Number [employer] [phone] [facility] [address] [phone] AST (01/01/2009 9:22 AM CDT) athologist Signature AST (SGOT) 17 <45 U/L [facility] Specimen Anatomical Collection Method Collection Time Receive d Time (Source) Location / / Volume Laterality 01/01/2009 9:22 AM 9:49 CDT AM CDT Tiffany Gonzalez APRN, DNP LAB_1 Performing Organization Address City/State/ZIP Code Phon e Number [facility] [phone] [phone] documented in this encounter Visit Diagnoses Diagnosis RUQ pain - Primary Abdominal pain, right upper quadrant Fatigue Other malaise and fatigue POLYCYSTIC KIDNEY, UNSPEC Polycystic kidney, unspecified type Need for prophylactic vaccination and in oculation against influenza RUQ pain Abdominal pain, right upper quadrant documented in this encounter Care Teams 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
--- OUTSIDE RECORDS SUMMARY | 2021-12-28 14:16 | XMS_ITS | Encounter Summary ---
:1965 Author Organization [facility] Address [address] [place] [address] Care Team Providers Name Role Phone Tiffany Gonzalez APRN, DNP Primary Care Provider [phone] Encounter Details Date Type Department Care Team Description [facility] Taylor, ICR UPP ER Procedure[facility]m [facility] ENDOSCOPY ent Gastroenterology [address] [place] [address] Social History Tobacco Use Types Packs/Day Years Used Date Smoking Tobacco: Every Day Cigarettes 0.5 Comments: Restarted 12/2005; prior to janice t stopped for 8 months Alcohol Use Standard Drinks/Week Comments Yes 0.8 (1 standard drink = 0.6 oz pure alco hol) rarely Sex Assigned at Date Recorded Not on file documented as of this encounter Progress Notes Mckenna Taylor - 10/31/2008 7:52 AM CDT documented in this encounter Plan of Treatment Not on filedocumented as of this encounter Visit Diagnoses Not on filedocumented in this encounter Care Teams Hand Candle 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
--- OUTSIDE RECORDS SUMMARY | 2021-12-28 14:16 | XMS_ITS | Encounter Summary ---
:1965 Author Organization [facility] Address [address] [place] [address] Care Team Providers Name Role Phone Tiffany Gonzalez APRN, GAIL Primary Care Provider Reason for Visit Reason Onset Date Comments ABDOMINAL PAIN 12/31/2008 Encounter Details Date Type Department Care Team Description 12/31/2008 Telephone Careline Stephanie Medrano, RN ABDOMINAL PAIN [address] [place], [place] [address] Social History Tobacco Use Types Packs/Day Years Used Date Smoking Tobacco: Every Day Cigarettes 0.5 Comments: Restarted 12/2005; prior to janice t stopped for 8 months Alcohol Use Standard Drinks/Week Comments Yes 0.8 (1 standard drink = 0.6 oz pure alco hol) rarely Sex Assigned at Date Recorded Not on file documented as of this encounter Nursing Notes Stephanie Medrano - 12/31/2008 1:27 AM CDT TRIAGE REFERENCE: ABDOMINAL PAIN - ADULT CNG (c) 2007 STAT SYMPTOMS None per guideline ASSESSMENT Abd pain/discomfort location: RUQ and Radiates to right back Quality: achy, burning pressure and severe. Duration: 9pm tonight, onset of symptoms: Gradual. Severity (rate on scale of 1-10 with 0 having no pain and 10 is unbearable pain): 8-9 when movement. GI symptoms: Appetite had pizza for supper Nausea Yes. Vomiting Yes. Flatus Yes. Diarrhea No. Associated symptoms: Fever: No Chills: No Diaphoresis: No Urinary symptoms: No. Trauma history: No Relieving factors: none Aggravating factors: *movement Signs of dehydration: none. AUDIO VISUAL MANAGER symptoms/history: neg. Recent GI procedure: No PMH: Patient Active Problem List Diagnoses Code ??? 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 REFLUX ESOPHAGITIS 530.11 ??? POLYCYSTIC KIDNEY, UNSPEC 753.12 ??? HYPERTENSION NOS 401.9 ??? MENSTRUAL DISORDER NOS 626.9 ??? ENDOMETRIAL POLYP 621.0 ??? ALLERGIC RHINITIS NOS 477.9 ??? ASTHMA, UNSPECIFIED 493.90 ??? Hypercholesterolemia with Hyperglyceridemia 272.2BP ??? Tobacco Use Disorder 305.1 Medication Allergies?: Amoxicillin, Penicillins, Neomycin and Beta adrenergic blockers CURRENT MEDICATIONS Current outpatient prescriptions prior to encounter Medication Sig Dispense Refill ??? CELEXA 40 MG OR TABS One by mouth every day 3mos 3 ??? CLARITIN 10 MG OR TABS 1 TABLET DAILY 30 0 ??? FISH OIL 1000 MG OR CAPS 1 capsule daily ??? LISINOPRIL 20 MG OR TABS Take one tablet by mouth every day. 3mos 3 ??? NASONEX 50MCG/ACT NASAL SPRAY Inhale two sprays in each nostril once daily. 3 prn ??? PRILOSEC 20 MG OR CPDR Take one capsule by mouth every day. ??? SIMVASTATIN 40 MG OR TABS Take one half tablet by mouth every day at bedtime. 3mos 2 ??? TRAZODONE HCL 100 MG OR TABS Take one half to one tablet by mouth at bedtime. 30 prn ??? VENTOLIN HFA 108 (90 BASE) MCG/ACT IN AERS 2 puffs every 4-6 hours as needed for asthma symptoms, and/or 5-15 minutes before exercise 1 2 ??? VITAMIN B COMPLEX OR 1 daily ??? VITAMIN C 500 MG OR TABS 2 tablets daily in cold season HOME TREATMENT Discussed per guideline Warm bath or heating pad for 30 minutes PLAN Monitor. ER if sx persist, worsen or additional sx occur. 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
--- OUTSIDE RECORDS SUMMARY | 2021-12-28 14:16 | XMS_ITS | Encounter Summary ---
:1965 Author Organization [facility] Address [address] [place] [address] Care Team Providers Name Role Phone Tiffany Gonzalez APRN, DNP Primary Care Provider Reason for Visit Reason Onset Date Comments RESULTS, TEST 01/10/2009 Encounter Details Date Type Department Care Team Description 01/10/2009 Telephone Specialty Center 401 J[address] S, RESULTS, TEST Surgery Clinic 401 [facility]. [address] [place] [address] [place] [id number] (Wo rk) Social History Tobacco Use Types Packs/Day Years Used Date Smoking Tobacco: Every Day Cigarettes 0.5 Comments: Restarted 12/2005; prior to janice t stopped for 8 months Alcohol Use Standard Drinks/Week Comments Yes 0.8 (1 standard drink = 0.6 oz pure alco hol) rarely Sex Assigned at Date Recorded Not on file documented as of this encounter Nursing Notes Selene Winters - 01/10/2009 2:57 PM CDT Patient informed. Pt denies any replicating pain during the test. CT with 'oral' contrast ordered. Labs ordered. Selene Winters LPN 2:55 PM Selene Winters - 01/10/2009 2:45 PM CDT Left message to call back. Selene Winters LPN 2:45 PM Selene Winters - 01/10/2009 2:36 PM CDT Message copied by HENNY WINTERS on WedJan 10, 2009 2:36 PM ------ Message from: VIRGILIO DAVIS Created: WedJan 10, 2009 2:17 PM To My Care Team: Please call the pt and let her know that her nuc med gallbladder scan was negative. Please inquire whether the pt did develop any of her upper abdominal symptoms replicating an attack during the study (when the CCK injection was administered senior living into the study). Please order a CAT scan of the abdomen with oral contrast only (NO IV CONTRAST DUE TO PT'S COMPROMISED RENAL STATUS) to further evaluate cause for the pt's epigastric pain. We will plan on calling herthe results. Thanks, Virgilio Davis MD documented in this encounter Plan of Treatment Not on filedocumented as of this encounter Results CT ABDOMEN/PELVIS WITHOUT IV CONTRAST (01/22/2009 2:10 PM CDT) Anatomical Region Laterality Modality Abdomen, Pelvis Computed Tomography Specimen (Source) Anatomical Collection Method Collection Time Re ceived Time Location / / Volume Laterality 01/22/2009 2:10 PM CDT Narrative 01/22/2009 3:[address] Abdomen and Pelvis 01/22/2009 Comparison: CT 05/10/2003, ultrasound abd omen 01/01/2009 Indication: Upper epigastric pain Technique: Following the uneventful mini stration of oral contrast, 5 mm contiguous helical axial images were obt ained through the abdomen and pelvis. Findings: Evaluation of the solid viscera is compr omised secondary to the lack of intravenous contrast. Lung Bases: Lung bases are clear. Heart size is normal. Small hiatal hernia. Abdomen: Innumerable low density cystic lesions are seen within the liver. Innumerable low density cystic lesions a re seen in both kidneys almost completely replacing the renal parenchym a. Findings are consistent with the known history of polycystic kidney and liver disease. The number of cysts within the liver and kidneys has increas ed since 05/10/2003. There are several high attenuation lesions seen in both kidneys, incompletely characterized on this noncontrast exam. These are most likely hemorrhagic or proteinaceous cysts, however solid le sions cannot be excluded on this exam. By the ultrasound of 01/01/2009 and MR of 05/21/2003, no solid lesions were identified. No hydronephrosis. The gallbladder, bile ducts, pancreas, spleen, adrenal glands are unremarkable. No free fluid or lymphadenopathy. The stomach and duodenum are unremarkabl e. Pelvis: Bladder and uterus are grossly u nremarkable. No evidence for bowel obstruction or acute inflammation. Fecal material is seen throughout the colon. Portions of the colon are decompr essed and therefore poorly evaluated. The appendix is normal. Small bowel is normal in caliber. No free fluid. Osseous Structures: No acute fracture. T he right L5 transverse process articulates with the sacrum. This can be a source for pain. No suspicious osseous lesions. No abdominal or pelvic wall hernia. IMPRESSION: 1. No specific CT finding to explain thi s patient's epigastric pain. 2. Polycystic kidney and liver disease, progressed since 05/10/2003. Several high attenuation lesions in both kidney s, presumably hemorrhagic or proteinaceous cysts, however solid left mass lesions cannot be excluded on this noncontrast study. On the prior ult rasound from 01/01/2009 and MR from 05/21/2003, no solid lesions were identifi ed. Procedure Note Soren Tsang X - 01/22/2009Formatting of t his note might be different from the original. CT Abdomen and Pelvis 01/22/2009 Comparison: CT 05/10/2003, ultrasound abd omen 01/01/2009 Indication: Upper epigastric pain Technique: Following the uneventful mini stration of oral contrast, 5 mm contiguous helical axial images were obt ained through the abdomen and pelvis. Findings: Evaluation of the solid viscera is compr omised secondary to the lack of intravenous contrast. Lung Bases: Lung bases are clear. Heart size is normal. Small hiatal hernia. Abdomen: Innumerable low density cystic lesions are seen within the liver. Innumerable low density cystic lesions a re seen in both kidneys almost completely replacing the renal parenchym a. Findings are consistent with the known history of polycystic kidney and liver disease. The number of cysts within the liver and kidneys has increas ed since 05/10/2003. There are several high attenuation lesions seen in both kidneys, incompletely characterized on this noncontrast exam. These are most likely hemorrhagic or proteinaceous cysts, however solid le sions cannot be excluded on this exam. By the ultrasound of 01/01/2009 and MR of 05/21/2003, no solid lesions were identified. No hydronephrosis. The gallbladder, bile ducts, pancreas, spleen, adrenal glands are unremarkable. No free fluid or lymphadenopathy. The stomach and duodenum are unremarkabl e. Pelvis: Bladder and uterus are grossly u nremarkable. No evidence for bowel obstruction or acute inflammation. Fecal material is seen throughout the colon. Portions of the colon are decompr essed and therefore poorly evaluated. The appendix is normal. Small bowel is normal in caliber. No free fluid. Osseous Structures: No acute fracture. T he right L5 transverse process articulates with the sacrum. This can be a source for pain. No suspicious osseous lesions. No abdominal or pelvic wall hernia. IMPRESSION: 1. No specific CT finding to explain thi s patient's epigastric pain. 2. Polycystic kidney and liver disease, progressed since 05/10/2003. Several high attenuation lesions in both kidney s, presumably hemorrhagic or proteinaceous cysts, however solid left mass lesions cannot be excluded on this noncontrast study. On the prior ult rasound from 01/01/2009 and MR from 05/21/2003, no solid lesions were identifi ed. Virgilio Davis MD RAD CT documented in this encounter Visit Diagnoses Diagnosis Abdominal pain, epigastric - Primary Abdominal pain, epigastric documented in this encounter Care Teams Hatch Tender Relationship Specialty Start Date End Date Tiffany Gonzalez, DIRECTOR RECREATION CENTER, GAIL PCP - General 01/16/00 02/03/16 [address] [place] [id number] documented as of this encounter
--- OUTSIDE RECORDS SUMMARY | 2021-12-28 14:16 | XMS_ITS | Encounter Summary ---
:1965 Author Organization [facility] Address [address] [place] [address] Care Team Providers Name Role Phone Tiffany Gonzalez APRN, DNP Primary Care Provider [phone] Reason for Visit Reason Onset Date Comments RESULTS, TEST 01/23/2009 Encounter Details Date Type Department Care Team Description 01/23/2009 Telephone Specialty Center 401 Jad Davis her S, RESULTS, TEST Surgery Clinic 401 [facility]. [address] [place] [address] [place] [id number] (Wo rk) Social History Tobacco Use Types Packs/Day Years Used Date Smoking Tobacco: Every Day Cigarettes 0.5 Comments: Restarted 12/2005; prior to janice t stopped for 8 months Alcohol Use Standard Drinks/Week Comments Yes 0.8 (1 standard drink = 0.6 oz pure alco hol) rarely Sex Assigned at Date Recorded Not on file documented as of this encounter Nursing Notes Selene Winters S - 01/23/2009 3:16 PM CDT Patient informed. Pt does not desire any further f/u at this time, She will continue f/u's with [facility] primary care provider. Selene Winters LPN 3:14 PM Pt wants results sent to her to take to [place]. Printed and sent. Selene Winters LPN 3:17 PM Selene Winters - 01/23/2009 2:41 PM CDT Message copied by HENNY WINTERS on WedJan 23, 2009 2:41 PM ------ Message from: VIRGILIO DAVIS Created: WedJan 23, 2009 1:29 PM To My Care Team: Please call the pt and let her know that her CAT scan of abdomen and pelvis was unremarkable for a cause for her abdominal pains. Extensive polycystic disease of the liver and the kidneys was demonstrated as expected--this does need ongoing follow up--an it is my understanding that Stephanie is plugged into the [facility] for this. At this point with all of Stephanie's diagnostic studies being normal to equivocal--EGD, u/s, HIDA scan, and CAT scan--I don't have anything else to offer other than reassurance. If she continues to have abdominal pain, a physical therapy referral for eval and treatment of abdominal wall pain could be offered. Follow Up with surgery can be prn. Stephanie can resume her usual care with her pcp/Tiffany Gonzalez NP If Stephanie has additional questions, I can see her in a follow up appointment. Thanks, Virgilio Davis MD documented in this encounter Plan of Treatment Not on filedocumented as of this encounter Visit Diagnoses Not on filedocumented in this encounter Care Teams Felt Coverer Relationship Specialty Start Date End Date Tiffany Gonzalez APRN, DNP PCP - General 01/16/00 02/03/16 [id number] [place] [id number] documented as of this encounter
--- OUTSIDE RECORDS SUMMARY | 2021-12-28 14:16 | XMS_ITS | Encounter Summary ---
:1965 Author Organization [facility] Address [address] [place] [address] Care Team Providers Name Role Phone Marcelo Gonzalez APRN, GAIL Primary Care Provider Reason for Visit Reason Onset Date Comments Refill 10/23/2008 Encounter Details Date Type Department Care Team Description 10/23/2008 Refill [facility] Shon Gonzalez, Refill MT PALOMO, DNP [address] [facility] [address] [place] [address] [place] [address] [phone] (Wo rk) Social History Tobacco Use Types Packs/Day Years Used Date Smoking Tobacco: Every Day Cigarettes 0.5 Comments: Restarted 12/2005; prior to janice t stopped for 8 months Alcohol Use Standard Drinks/Week Comments Yes 0.8 (1 standard drink = 0.6 oz pure alco hol) rarely Sex Assigned at Date Recorded Not on file documented as of this encounter Nursing Notes María Barboza - 10/23/2008 2:15 PM CDTApproved Prescriptions: Disp Refills SIMVASTATIN 40 MG OR TABS 3mos 2Sig: Take one half tablet by mouth every day at bedtime.Authorizing Provider: MARCELO GONZALEZ User: MARÍA BARBOZA María Barboza - 10/23/2008 2:15 PM CDT Subjective/Objective: Prescription refill request received by clinic staff. Assessment: Patient record review indicates compliance with office visits. Recommended monitoring parameters have been met. Plan: Prescription refilled per standing order. María Barboza RN Marcelo Sethi - 10/23/2008 1:48 PM CDT Last fill on [id number] for a quantity of 15. documented in this encounter Plan of Treatment Not on filedocumented as of this encounter Visit Diagnoses Not on filedocumented in this encounter Care Teams Internal Consultant Relationship Specialty Start Date End Date Marcelo Gonzalez APRN, DNP PCP - General 01/16/00 02/03/16 [address] [place] [id number] documented as of this encounter
--- OUTSIDE RECORDS SUMMARY | 2021-12-28 14:16 | XMS_ITS | Encounter Summary ---
:1965 Author Organization [facility] Address [address] [place] [address] Care Team Providers Name Role Phone Tiffany Gonzalez APRN, GAIL Primary Care Provider Reason for Visit Reason Onset Date Comments APPOINTMENT REQUEST 12/29/2008 Encounter Details Date Type Department Care Team Description 12/29/2008 Telephone [facility] Tiffany Gonzalez APPOINTMENT REQUEST [address] [place], [place] [address] [address] [facility] [phone] [place] [id number] (Wo rk) Social History Tobacco Use Types Packs/Day Years Used Date Smoking Tobacco: Every Day Cigarettes 0.5 Comments: Restarted 12/2005; prior to janice t stopped for 8 months Alcohol Use Standard Drinks/Week Comments Yes 0.8 (1 standard drink = 0.6 oz pure alco hol) rarely Sex Assigned at Date Recorded Not on file documented as of this encounter Nursing Notes Astrid Francis - 12/31/2008 8:53 AM CDT Pt changed appointment to tomorrow Astrid Francis - 12/31/2008 8:36 AM CDT Left message to see if she can come in at 1:20, holding time slot Tiffany Gonzalez - 12/29/2008 2:51 PM CDT Can pt have different appt time for 40min or is there a way to move another patient around. See pt's note for office visit. Multiple. Will be spending more time with her. documented in this encounter Plan of Treatment Not on filedocumented as of this encounter Visit Diagnoses Not on filedocumented in this encounter Care Teams Plumbing Technician Relationship Specialty Start Date End Date Tiffany Gonzalez, LUG BREAKER AND WIRE PULLER, DNP PCP - General 01/16/00 02/03/16 [address] [place] [id number] documented as of this encounter
--- OUTSIDE RECORDS SUMMARY | 2021-12-28 14:16 | XMS_ITS | Encounter Summary ---
:1965 Author Organization [facility] Address [address] [place] [address] Care Team Providers Name Role Phone Tiffany Gonzalez PATIENT ACCOUNTS SPECIALIST, DNP Primary Care Provider [phone] Encounter Details Date Type Department Care Team Description 01/01/2009 Imaging [facility] Ultrasound RUQ Pain [address] [place] [address] Social History Tobacco Use Types Packs/Day Years Used Date Smoking Tobacco: Every Day Cigarettes 0.5 Comments: Restarted 12/2005; prior to janice t stopped for 8 months Alcohol Use Standard Drinks/Week Comments Yes 0.8 (1 standard drink = 0.6 oz pure alco hol) rarely Sex Assigned at Date Recorded Not on file documented as of this encounter Progress Notes Tiffany Gonzalez - 01/01/2009 5:36 PM CDT Quick Note: See phone message documented in this encounter Plan of Treatment Not on filedocumented as of this encounter Procedures Procedure Name Priority Date/Time Associated Diagnosis Comme nts US ABD COMPLETE Routine 01/01/2009 3:00 PM RUQ Pain Result s for this CDT procedure are i n [...] lesions are identified. Procedure Note Lex Hurley - 01/01/2009Formatti ng of this note might [...] lesions are identified. Tiffany Gonzalez APRN, DNP [facility] documented in this encounter Visit Diagnoses Diagnosis RUQ pain Abdominal pain, right upper quadrant documented in this encounter Care Teams Casing Finisher And Stuffer Relationship Specialty Start Date End Date Tiffany Gonzalez APRN, DNP PCP - General 01/16/00 02/03/16 [address] [place] [id number] documented as of this encounter
--- OUTSIDE RECORDS SUMMARY | 2021-12-28 14:16 | XMS_ITS | Encounter Summary ---
:1965 Author Organization [facility] Address [address] [place] [address] Care Team Providers Name Role Phone Tiffany Gonzalez APRN, GAIL Primary Care Provider Encounter Details Date Type Department Care Team Description 01/22/2009 [facility] Abd [facility], Epigastric [facility] CT [address] [place] [address] Social History Tobacco Use [...] this encounter Progress Notes Virgilio Perkins - 01/23/2009 1:29 PM CDT Quick Note: To My Care Team: Please call the pt and let her know that her CAT scan of abdomen and pelvis was unremarkable for a cause for her abdominal pains. Extensive polycystic disease of the liver and the kidneys was demonstrated as expected--this does need ongoing follow up--an it is my understanding that Stephanie is plugged into the [facility] for this. At this point with all [...] in a follow up appointment. Thanks, Virgilio Perkins MD documented in this encounter Plan of Treatment Not on filedocumented as of this encounter Procedures Procedure Name Priority Date/Time Associated Diagnosis Comme nts CT ABD PELVIS WO IV Routine 01/22/2009 2:10 PM Abdominal Pain, Results for this CONT CDT Epigastric procedure are i n the results section. documented in this encounter Results CT ABDOMEN/PELVIS WITHOUT IV [...] no solid lesions were identifi ed. Virgilio Perkins MD RAD CT documented in this encounter Visit Diagnoses Diagnosis Abdominal pain, epigastric documented in this encounter Care Teams Scrap Shear Operator Relationship Specialty Start Date End Date Tiffany Gonzalez, BED WORKER, DNP PCP - General 01/16/00 02/03/16 [address] [place] [id number] documented as of this encounter
--- OUTSIDE RECORDS SUMMARY | 2021-12-28 14:16 | XMS_ITS | Encounter Summary ---
:1965 Author Organization [facility] Address [address] [place] [address] Care Team Providers Name Role Phone Tiffany Gonzalez APRN, DNP Primary Care Provider [phone] Reason for Visit Reason Comments ALLERGY SHOT Encounter Details Date Type Department Care Team Description 08/16/2008 Office Visit Specialty [facility] 401 [facility] Allergens [address] [place] [address] Social History Tobacco Use Types Packs/Day Years Used Date Smoking Tobacco: Every Day Cigarettes 0.5 Comments: Restarted 12/2005; prior to janice t stopped for 8 months Alcohol Use Standard Drinks/Week Comments Yes 0.8 (1 standard drink = 0.6 oz pure alco hol) rarely Sex Assigned at Date Recorded Not on file documented as of this encounter Progress Notes Celsa Meredith - 08/16/2008 2:38 PM CDT S Stephanie Nargis Emerson here [...] allergens documented in this encounter Care Teams Staple Fiber Washer Relationship Specialty Start Date End Date Tiffany Gonzalez APRN, DNP PCP - General 01/16/00 02/03/16 [address] [place] [id number] documented as of this encounter
--- OUTSIDE RECORDS SUMMARY | 2021-12-28 14:16 | XMS_ITS | Encounter Summary ---
:1965 Author Organization [facility] Address [address] [place] [address] Care Team Providers Name Role Phone Tiffany Gonzalez APRN, DNP Primary Care Provider Encounter Details Date Type Department Care Team Description 07/11/2008 [facility] 401 Yaakov Fraire MD ALLERGY INJECTION Allergy Clinic [address] RECORD [address] [place], [place] [address] Social History Tobacco Use Types Packs/Day Years Used Date Smoking Tobacco: Every Day Cigarettes 0.5 Comments: Restarted 12/2005; prior to janice t stopped for 8 months Alcohol Use Standard Drinks/Week Comments Yes 0.8 (1 standard drink = 0.6 oz pure alco hol) rarely Sex Assigned at Date Recorded Not on file documented as of this encounter Progress Notes Tejinder Fraire - 05/31/2009 12:42 PM DATA WAREHOUSING ARCHITECT WAREHOUSING ARCHITECT documented in this encounter Plan of Treatment Not on filedocumented as of this encounter Visit Diagnoses Not on filedocumented in this encounter Care Teams Time Clock Mechanic Relationship Specialty Start Date End Date Tiffany Gonzalez APRN, GAIL PCP - General 01/16/00 02/03/16 [address] [place] [id number] documented as of this encounter
--- OUTSIDE RECORDS SUMMARY | 2021-12-28 14:16 | XMS_ITS | Encounter Summary ---
:1965 Author Organization [facility] Address [address] [place] [address] Care Team Providers Name Role Phone Tiffany Gonzalez APRN, DNP Primary Care Provider Reason for Visit Reason Onset Date Comments DIARRHEA 08/22/2008 Encounter Details Date Type Department Care Team Description 08/22/2008 Telephone Careline Justo Mims RN DIARRHEA [address] [place], [place] [address] Social History Tobacco Use Types Packs/Day Years Used Date Smoking Tobacco: Every Day Cigarettes 0.5 Comments: Restarted 12/2005; prior to janice t stopped for 8 months Alcohol Use Standard Drinks/Week Comments Yes 0.8 (1 standard drink = 0.6 oz pure alco hol) rarely Sex Assigned at Date Recorded Not on file documented as of this encounter Nursing Notes Justo Mims - 08/22/2008 6:05 AM CDT TRIAGE REFERENCE: DIARRHEA - ADULT CNG (c) 2007 STAT SYMPTOMS: None per guideline Onset: Ongoing, Duration: 3 hours, caller report five bouts of diarhea. Last bout was very bloody. States approx 1/4 cup of blood in toilet. Stools are: Watery, and amount is usually: large . GI symptoms are: abdominal pain: bloody diarhea. Recent history includes: none Diet: normal, fluid intake: normal, urine output is norml. Other symptoms are: none. PMH: Patient Active Problem List Diagnoses Code ??? 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 REFLUX ESOPHAGITIS 530.11 ??? POLYCYSTIC KIDNEY, UNSPEC 753.12 ??? HYPERTENSION NOS 401.9 ??? MENSTRUAL DISORDER NOS 626.9 ??? ENDOMETRIAL POLYP 621.0 ??? ALLERGIC RHINITIS NOS 477.9 ??? ASTHMA, UNSPECIFIED 493.90 ??? Hypercholesterolemia with Hyperglyceridemia 272.2BP ??? Tobacco Use Disorder 305.1 CURRENT MEDICATIONS: Yes: Current outpatient prescriptions Medication Sig ??? CELEXA [...] Take one by mouth twice a day MEDICATION ALLERGIES: Allergies Allergen Reactions ??? Amoxicillin ??? Penicillins ??? Neomycin topical sensitization ??? Beta Adrenergic Blockers Patient is on allergy injections, Beta Blockers contraindicated. If medically necessary, it is OK to prescribe a Beta Joey, but the allergy injections will need to be discontinued. HOME TREATMENT: More than 5 liquid stools in 24 hrs: clear liquids with calories, no caffeine alcohol, or fruit juice PLAN: Follow up clinic and/or Primary Care Provider Pt to call for appt. documented in this encounter Plan of Treatment Not on filedocumented as of this encounter Visit Diagnoses Not on filedocumented in this encounter Care Teams Dyer And Washer Relationship Specialty Start Date End Date Tiffany Gonzalez, DIRECTOR OF TEACHING AND LEARNING, DNP PCP - General 01/16/00 02/03/16 [address] [place] [id number] documented as of this encounter
--- OUTSIDE RECORDS SUMMARY | 2021-12-28 14:16 | XMS_ITS | Encounter Summary ---
:1965 Author Organization [facility] Address [address] [place] [address] Care Team Providers Name Role Phone Tiffany Gonzalez APRN, DNP Primary Care Provider Reason for Visit Reason Comments ALLERGY SHOT Encounter Details Date Type Department Care Team Description 09/28/2008 [facility] Need for Desensitization to Allergy Clinic Allergens [address] [place] [address] Social History Tobacco Use Types Packs/Day Years Used Date Smoking Tobacco: Every Day Cigarettes 0.5 Comments: Restarted 12/2005; prior to janice t stopped for 8 months Alcohol Use Standard Drinks/Week Comments Yes 0.8 (1 standard drink = 0.6 oz pure alco hol) rarely Sex Assigned at Date Recorded Not on file documented as of this encounter Progress Notes Celsa Meredith - 09/28/2008 1:37 PM CDT S Stephanie Nargis Emerson here [...] allergens documented in this encounter Care Teams Mathematics Department Chair Relationship Specialty Start Date End Date Tiffany Gonzalez APRN, DNP PCP - General 01/16/00 02/03/16 [address] [place] [id number] documented as of this encounter
--- OUTSIDE RECORDS SUMMARY | 2021-12-28 14:17 | XMS_ITS | Encounter Summary ---
:1965 Author Organization [facility] Address [address] [place] [address] Care Team Providers Name Role Phone Tiffany Gonzalez APRN, DNP Primary Care Provider Reason for Visit Reason Comments ALLERGY SHOT Encounter Details Date Type Department Care Team Description 09/29/2007 Office Visit [facility] 401 Need for Desensitization to Allergy Clinic Allergens [address] [place] [address] Social History Tobacco Use Types Packs/Day Years Used Date Smoking Tobacco: Former Alcohol Use Standard Drinks/Week Comments Yes 0 (1 standard drink = 0.6 oz pure alcoho l) rarely Sex Assigned at Date Recorded Not on file documented as of this encounter Progress Notes Celsa Meredith - 09/29/2007 2:57 PM CDT S Stephanie Norman here for allergy injection(s). O The following information has been verified with Stephanie Nargis Emerson 1. Have you had any type of [...] allergens documented in this encounter Care Teams Gristmill Operator Relationship Specialty Start Date End Date Tiffany Gonzalez APRN, DNP PCP - General 01/16/00 02/03/16 [id number] [place] [id number] documented as of this encounter
--- OUTSIDE RECORDS SUMMARY | 2021-12-28 14:17 | XMS_ITS | Encounter Summary ---
:1965 Author Organization [facility] Address [address] [place] [address] Care Team Providers Name Role Phone Tiffany Gonzalez APRN, DNP Primary Care Provider Encounter Details Date Type Department Care Team Description 02/20/2008 Imaging [facility] Radiology Acute Low Back Pain [address] [place] [address] Social History Tobacco Use Types Packs/Day Years Used Date Smoking Tobacco: Former Alcohol Use Standard Drinks/Week Comments Yes 0 (1 standard drink = 0.6 oz pure alcoho l) rarely Sex Assigned at Date Recorded Not on file documented as of this encounter Plan of Treatment Not on filedocumented as of this encounter Procedures Procedure Name Priority Date/Time Associated Diagnosis Comme nts XR PELVIS AP 1 VIEW Routine 02/20/2008 2:24 PM Acute Low Back Pain Results for this BEHAVIORAL CONSULTANT procedure are i n the results section. XR LUMBAR SPINE 3 Routine 02/20/2008 2:24 PM Acute Low Back Pa in Results for this VIEWS BEHAVIORAL CONSULTANT procedure are i n the results section. documented in this encounter Results XR PELVIS AP (02/20/2008 2:24 PM BEHAVIORAL CONSULTANT) Anatomical Region Laterality Modality Pelvis Computed Radiography Specimen (Source) Anatomical Collection Method Collection Time Re ceived Time Location / / Volume Laterality 02/20/2008 2:24 PM BEHAVIORAL CONSULTANT Narrative 02/21/2008 10:05 AM BEHAVIORAL CONSULTANT PELVIS ONE VIEW 02/20/2008 Indication: Trauma. Findings: Normal. No fracture. There is a transitional L5-S1 segment. Procedure Note Samuel Hathawaychaz, Benny - 02/22/2008 PELVIS ONE VIEW 02/20/2008 Indication: Trauma. Findings: Normal. No fracture. There is a transitional L5-S1 segment. Estelle MERRILL XR L-SPINE (ROUTINE) (02/20/2008 2:24 PM BEHAVIORAL CONSULTANT) Anatomical Region Laterality Modality Spine, L-Spine Computed Radiography Specimen (Source) Anatomical Collection Method Collection Time Re ceived Time Location / / Volume Laterality 02/20/2008 2:24 PM BEHAVIORAL CONSULTANT Narrative 02/21/2008 10:05 AM BEHAVIORAL CONSULTANT LUMBAR SPINE 3 VIEWS 02/20/08 INDICATION: Trauma. FINDINGS: There is a transitional L5-S1 segment with the incomplete sacralization of L5 on the right. Minima l vertebral body spurring. The disc spaces are normal except for minimal L4 -L5 disc narrowing. No fracture. Procedure Note Samuel Hathawaychaz Benny - 02/22/2008 LUMBAR SPINE 3 VIEWS 02/20/08 INDICATION: Trauma. FINDINGS: There is a transitional L5-S1 segment with the incomplete sacralization of L5 on the right. Minima l vertebral body spurring. The disc spaces are normal except for minimal L4 -L5 disc narrowing. No fracture. Estelle Alvarado MD RAD GD documented in this encounter Visit Diagnoses Diagnosis Acute low back pain Lumbago documented in this encounter Care Teams Tap Out Operator Relationship Specialty Start Date End Date Tiffany Gonzalez APRN, GAIL PCP - General 01/16/00 02/03/16 [address] [id number] documented as of this encounter
--- OUTSIDE RECORDS SUMMARY | 2021-12-28 14:17 | XMS_ITS | Encounter Summary ---
:1965 Author Organization [email or web address] Address [address] [place] [address] Care Team Providers Name Role Phone Tiffany Gonzalez APRN, DNP Primary Care Provider Reason for Visit Reason Comments ALLERGY SHOT Encounter Details Date Type Department Care Team Description 01/26/2008 Office Visit [facility] 401 Need for Desensitization to Allergy Clinic Allergens (Primary Dx) [address] [place] [address] Social History Tobacco Use Types Packs/Day Years Used Date Smoking Tobacco: Former Alcohol Use Standard Drinks/Week Comments Yes 0 (1 standard drink = 0.6 oz pure alcoho l) rarely Sex Assigned at Date Recorded Not on file documented as of this encounter Progress Notes Celsa Meredith - 01/26/2008 2:57 PM CDT S Stephanie Norman here [...] Primary documented in this encounter Care Teams Industrial Relations Director Relationship Specialty Start Date End Date Tiffany Gonzalez APRN, DNP PCP - General 01/16/00 02/03/16 [address] [id number] documented as of this encounter
--- OUTSIDE RECORDS SUMMARY | 2021-12-28 14:17 | XMS_ITS | Encounter Summary ---
:1965 Author Organization [facility] Address [address] [place] [address] Care Team Providers Name Role Phone Tiffany Gonzalez APRN, GAIL Primary Care Provider Reason for Visit Reason Comments ALLERGY SHOT Encounter Details Date Type Department Care Team Description 12/29/2007 Office Visit [facility] 401 Need for Desensitization to Allergy Clinic Allergens (Primary Dx) [address] [place] [address] Social History Tobacco Use Types Packs/Day Years Used Date Smoking Tobacco: Former Alcohol Use Standard Drinks/Week Comments Yes 0 (1 standard drink = 0.6 oz pure alcoho l) rarely Sex Assigned at Date Recorded Not on file documented as of this encounter Progress Notes Nelly Ludwig - 12/29/2007 8:34 AM CDT S Stephanie Norman here for allergy [...] documentation of allergy shot(s) given today at 8:35 am Nelly Ludwig RN documented in this encounter Plan of Treatment Not on filedocumented as of this encounter Visit Diagnoses Diagnosis Need for desensitization to allergens - Primary documented in this encounter Care Teams Skid Machine Operator Relationship Specialty Start Date End Date Tiffany Gonzalez APRN, DNP PCP - General 01/16/00 02/03/16 [address] [id number] documented as of this encounter
--- OUTSIDE RECORDS SUMMARY | 2021-12-28 14:17 | XMS_ITS | Encounter Summary ---
:1965 Author Organization [facility] Address [address] [place] [address] Care Team Providers Name Role Phone Tiffany Gonzalez APRN, GAIL Primary Care Provider Reason for Visit Reason Onset Date Comments ERRONEOUS ENTRY 06/09/2007 Encounter Details Date Type Department Care Team Description 06/09/2007 Telephone [facility] Tiffany Gonzalez, ERRONEOUS ENTRY [address] [place], [place] [address] [address] [phone] [place] [id number] (Wo rk) Social History Tobacco Use Types [...] on filedocumented in this encounter Care Teams Junior Business Analyst Relationship Specialty Start Date End Date Tiffany Gonzalez, [place], GAIL PCP - General 01/16/00 02/03/16 [address] [place] [id number] documented as of this encounter
--- OUTSIDE RECORDS SUMMARY | 2021-12-28 14:17 | XMS_ITS | Encounter Summary ---
:1965 Author Organization [facility] [employer] [employer] Address [address] [place] [address] Care Team Providers Name Role Phone Tiffany Gonzalez APRN, DNP Primary Care Provider Reason for Visit Reason Comments ALLERGY SHOT Encounter Details Date Type Department Care Team Description 03/28/2008 Office Visit [facility] 401 Need for Desensitization to Allergy Clinic Allergens (Primary Dx) [address] [place] [address] Social History Tobacco Use Types Packs/Day Years Used Date Smoking Tobacco: Former Alcohol Use Standard Drinks/Week Comments Yes 0 (1 standard drink = 0.6 oz pure alcoho l) rarely Sex Assigned at Date Recorded Not on file documented as of this encounter Progress Notes Ruthann Bull - 03/28/2008 4:09 PM CST S Stephanie Norman here for allergy injection. O The following information has been verified [...] shot record for full documentation of allergy shot given today Ruthann Bull RN ON PICTURE PRINTER documented in this encounter Plan of Treatment Not on filedocumented as of this encounter Visit Diagnoses Diagnosis Need for desensitization to allergens - Primary documented in this encounter Care Teams Straightedge Machine Operator Helper Relationship Specialty Start Date End Date Tiffany Gonzalez APRN, DNP PCP - General 01/16/00 02/03/16 [address] [id number] documented as of this encounter
--- OUTSIDE RECORDS SUMMARY | 2021-12-28 14:17 | XMS_ITS | Encounter Summary ---
:1965 Author Organization [facility] Address [address] [place] [address] Care Team Providers Name Role Phone Tiffany Gonzalez APRN, GAIL Primary Care Provider Reason for Visit Reason Onset Date Comments Same Day/Next Day Appt. 02/20/2008 Encounter Details Date Type Department Care Team Description 02/20/2008 Telephone [facility] Tiffany Gonzalez Same Day/Next Day [address] [place] [address] [address] [facility] [phone] [place] [address] (Wo rk) Social History Tobacco Use Types Packs/Day Years Used Date Smoking Tobacco: Former Alcohol Use Standard Drinks/Week Comments Yes 0 (1 standard drink = 0.6 oz pure alcoho l) rarely Sex Assigned at Date Recorded Not on file documented as of this encounter Nursing Notes Tiffanie Ordaz - 02/20/2008 9:56 AM CST Appt this PM with Dr Alvarado [facility] COORDINATOR Korin Cloud - 02/20/2008 9:43 AM CST LMTCB [facility] COORDINATOR Lissa Frias - 02/20/2008 9:01 AM CST Patient requesting appointment for: Today Symptoms: Patient fell in her tub on 02/17/08, has back pain, requesting to be seen today. Lissa Frias [facility] COORDINATOR documented in this encounter Plan of Treatment Not on filedocumented as of this encounter Visit Diagnoses Not on filedocumented in this encounter Care Teams Layboy Tender Relationship Specialty Start Date End Date Tiffany Gonzalez APRN, DNP PCP - General 01/16/00 02/03/16 [address] [place] [id number] documented as of this encounter
--- OUTSIDE RECORDS SUMMARY | 2021-12-28 14:17 | XMS_ITS | Encounter Summary ---
:1965 Author Organization [facility] Address [address] [place] [address] Care Team Providers Name Role Phone Tiffany Gonzalez APRN, GAIL Primary Care Provider Reason for Visit Reason Comments ALLERGY SHOT Encounter Details Date Type Department Care Team Description 07/28/2007 Office Visit [facility] 401 Need for Desensitization to Allergy Clinic Allergens (Primary Dx) [address] [place] [address] Social History Tobacco Use Types Packs/Day Years Used Date Smoking Tobacco: Former Alcohol Use Standard Drinks/Week Comments Yes 0 (1 standard drink = 0.6 oz pure alcoho l) rarely Sex Assigned at Date Recorded Not on file documented as of this encounter Progress Notes Nelly Ludwig - 07/28/2007 2:29 PM CDT S Stephanie Norman here for [...] documentation of allergy shot(s) given today at 2:20 PM Nelly Ludwig RN documented in this encounter Plan of Treatment Not on filedocumented as of this encounter Visit Diagnoses Diagnosis Need for desensitization to allergens - Primary documented in this encounter Care Teams Insulator Technician Relationship Specialty Start Date End Date Tiffany oGnzalez APRN, DNP PCP - General 01/16/00 02/03/16 [address] [id number] documented as of this encounter
--- OUTSIDE RECORDS SUMMARY | 2021-12-28 14:17 | XMS_ITS | Encounter Summary ---
:1965 Author Organization [facility] Address [address] [place] [address] Care Team Providers Name Role Phone Tiffany Gonzalez APRN, DNP Primary Care Provider [phone] Encounter Details Date Type Department Care Team Description 07/21/2007 Orders Only [facility], Other Screening Mammogram; [place] [facility] Family History of Malignant Neoplasm of Breast [address] [place], [place] [address] Social History Tobacco Use Types Packs/Day Years Used Date Smoking Tobacco: Former Alcohol Use Standard Drinks/Week Comments Yes 0 (1 standard drink = 0.6 oz pure alcoho l) rarely Sex Assigned at Date Recorded Not on file documented as of this encounter Procedure Notes Lanny Nelson - 07/21/2007 12:00 AM CDTAssociated Order(s): MAMMOGRAM, SCREENING (DIGITAL) EXAMINATION: BILATERAL DIGITAL MAMMOGRAM 07/21/2007: ACR BIRADS CATEGORY 1 - NEGATIVE MAMMOGRAM. Exam reviewed with computer aided detection (CAD) system for a second read. COMPARISON: 06/30/2004 BREAST COMPOSITION: Scattered fibroglandular. No change. No mammographic evidence for malignancy. RECOMMENDATIONS: Normal interval F/U. Lanny Nelson MD D: cc: Radiology documented in this encounter Plan of Treatment Not on filedocumented as of this encounter Procedures Procedure Name Priority Date/Time Associated Diagnosis Comme nts SCREENING MAMMO Routine 07/21/2007 12:00 AM Other Screening Re sults for this DIRECT DIGITAL IMG CDT Mammogram procedure are in [place] Family History of the result s Malignant Neoplasm section. of Breast documented in this encounter Results MAMMOGRAM, SCREENING (DIGITAL) (07/21/2007 12:00 AM CDT) Anatomical Region Laterality Modality Breast Other Transcriptions Lanny Nelson - 07/21/2007 12:00 AM C DT EXAMINATION: BILATERAL DIGITAL MAMMOGRAM 07/21/2007: ACR BIRADS CATEGORY 1 - NEGATIVE MAMMOG [place]. Exam reviewed with computer aided detec tion (CAD) system for a second read. COMPARISON: 06/30/2004 BREAST COMPOSITION: Scattered fibroglan dular. No change. No mammographic evidence for malignancy. RECOMMENDATIONS: Normal interval F/U. Lanny Nelson MD D: cc: Radiology AH Tiffany Gonzalez APRN, DNP RAD_BI documented in this encounter Visit Diagnoses Diagnosis Other screening mammogram Family history of malignant neoplasm of breast documented in this encounter Care Teams Highway Maintenance Technician Relationship Specialty Start Date End Date Tiffany Gonzalez APRN, DNP PCP - General 01/16/00 02/03/16 [address] [id number] documented as of this encounter
--- OUTSIDE RECORDS SUMMARY | 2021-12-28 14:17 | XMS_ITS | Encounter Summary ---
:1965 Author Organization [facility] Address [address] [place] [address] Care Team Providers Name Role Phone Tiffany Gonzalez APRN, DNP Primary Care Provider Reason for Visit Reason Comments RASH right hand, started 9 months ago small, has gotten bigger in last two months, itching at times. Encounter Details Date Type Department Care Team Description 01/06/2008 Office Visit [facility] Lisa, Chronic Dermatitis of the [place] nds (Primary Dx); [address] Tiffany Still APRN, Tobacco Use Disorder; [place] [address] [facility] ASTHMA, UNSPECIFIED [phone] [address] [place] [address] (Wo rk) Social History Tobacco Use Types Packs/Day Years Used Date Smoking Tobacco: Former Alcohol Use Standard Drinks/Week Comments Yes 0 (1 standard drink = 0.6 oz pure alcoho l) rarely Sex Assigned at Date Recorded Not on file documented as of this encounter Last Filed Vital Signs Vital Sign Reading Time Taken Comments Blood Pressure 122/80 01/06/2008 9:38 AM CDT Pulse 80 01/06/2008 9:38 AM CDT Temperature 36.9 ??C (98.5 ??F) 01/06/2008 9:38 AM CDT Respiratory Rate - - Oxygen Saturation - - Inhaled Oxygen Concentration - - Weight 103.1 kg (227 lb 6.4 oz) 01/06/2008 9:38 AM CDT Height - - Body Mass Index 34.27 03/03/2007 10:59 AM BURLAPPER documented in this encounter Patient Instructions Patient InstructionsTiffany Gonzalez - 01/06/2008 9:52 AM CDT Triamcinolone 0.1% cream apply twice daily x 2wks as needed Skin hygiene changes. Read information on eczema/dermatitis/dry itchy skin. To follow up in 2wks for evaluation. Start Chantix. This medicine can cause behavior changes, sleep disturbance, nausea, vomiting, headache, fatigue, dry mouth, rash, change in appetite, thirst, flu like symptoms, weight gain, sweating, elevated liver function tests, increased blood pressure, constipation. The most common adverse reactions include nausea, sleep disturbance, constipation, flatulence, and vomiting. Nausea in 30% of patients; 3% discontinued due to nausea. One may experience vivid, unusual,or strange dreams during treatment with CHANTIX. Albuterol refilled. documented in this encounter Progress Notes Tiffany Gonzalez - 01/06/2008 9:06 AM CDT SUBJECTIVE: Stephanie Norman is a 42 yr old female who presents with dry itchy red ovals on skin to top of R hand.Has had the start of this 9mos ago. Symptom onset has been worsening for a time period of 2 months. Severity is described as more ugly in appearance, just mildy itchy. She has been scratching it. Home treatment has been HC and Aquaphor, of mild benefit for itching. Uses Zest/coast for soap. Denies new shampoo, perfumes, soaps or lotions. 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 She is a mom of a 3yo. And, with her partner, is in the process of adopting an 11yo foster girl. Stephanie is also interested in smoking cessation. Health education given with regard to various medications (along with side effects) used to assist in cessation. Patient requests Chantix. Would also like refill on albuterol. Using it about 2x monthly. Feels asthma worse in summer with humidity. OBJECTIVE: BP 122/80 Pulse 80 Temp 98.5 ??F (36.9 ??C) the patient is a well developed, well nourished, well groomed with pleasant affect Skin: 4-6mm red slightly raised ovals to top of R hand, one area appears that the ovals came together and this measures 2.5cm x 1cm. ASSESSMENT: Encounter Diagnoses Code Name Primary? Qualifier ??? 692.9DP Chronic Dermatitis of the Hands Yes ??? 305.1 Tobacco Use Disorder ??? 493.90 ASTHMA, UNSPECIFIED PLAN: Patient Instructions Triamcinolone 0.1% cream apply twice daily x 2wks as needed Skin hygiene changes. Read information on eczema/dermatitis/dry itchy skin. To follow up in 2wks for evaluation. Start Chantix. This medicine can cause behavior changes, sleep disturbance, nausea, vomiting, headache, fatigue, dry mouth, rash, change in appetite, thirst, flu like symptoms, weight gain, sweating, elevated liver function tests, increased blood pressure, constipation. The most common adverse reactions include nausea, sleep disturbance, constipation, flatulence, and vomiting. Nausea in 30% of patients; 3% discontinued due to nausea. One may experience vivid, unusual,or strange dreams during treatment with CHANTIX. Albuterol refilled. documented in this encounter Plan of Treatment Not on filedocumented as of this encounter Visit Diagnoses Diagnosis Chronic dermatitis of the hands - Primar y Contact dermatitis and other eczema, due to unspecified cause Tobacco use disorder ([facility]) Tobacco use disorder ASTHMA, UNSPECIFIED Unspecified asthma documented in this encounter Care Teams Crew Clerk Relationship Specialty Start Date End Date Tiffany Gonzalez, HEAD OF CONSERVATION, DNP PCP - General 01/16/00 02/03/16 [id number] [place] [id number] documented as of this encounter
--- OUTSIDE RECORDS SUMMARY | 2021-12-28 14:17 | XMS_ITS | Encounter Summary ---
:1965 Author Organization [employer] Address [address] [place] [address] Care Team Providers Name Role Phone Tiffany Gonzalez APRN, DNP Primary Care Provider [phone] Reason for Visit Reason Comments Follow Up Allergy had imt today as well pt als o states that she has started smoking again. Encounter Details Date Type Department Care Team Description 05/01/2008 Office Visit [facility] Tejinder Fraire ALLERG IC RHINITIS NOS (Primary Dx); [facility] MD Tobacco Use Disorder; [address] Need for Desensitization to Allergens; [place] [address] [place], [place] Exercise Induced Bronchospas [phone] [id number] Social History Tobacco Use Types Packs/Day Years Used Date Smoking Tobacco: Every Day Cigarettes 0.5 Alcohol Use Standard Drinks/Week Comments Yes 0 (1 standard drink = 0.6 oz pure alcoho l) rarely Sex Assigned at Date Recorded Not on file documented as of this encounter Last Filed Vital Signs Vital Sign Reading Time Taken Comments Blood Pressure 142/80 05/01/2008 1:32 PM TUNNELLER Pulse 76 05/01/2008 1:32 PM TUNNELLER Temperature - - Respiratory Rate - - Oxygen Saturation - - Inhaled Oxygen Concentration - - Weight 103 kg (227 lb) 05/01/2008 1:32 PM TUNNELLER Height 172.1 cm (5' 7.75) 05/01/2008 1:32 PM TUNNELLER Body Mass Index 34.77 05/01/2008 1:32 PM TUNNELLER documented in this encounter Patient Instructions Patient InstructionsTejinder Fraire - 05/01/2008 1:57 PM CST Allergy injections every 3 weeks Loratadine 10 mg once daily Saline spray as needed rather than Nasonex Ventolin HFA 2 puffs every 4-6 hours as needed and/or 5-15 minutes before exercise Followup visit 1 year; sooner as needed ELLER documented in this encounter Progress Notes Tejinder Fraire - 05/01/2008 2:15 PM CST This office note has been dictated. ELLER documented in this encounter Procedure Notes Tejinder Fraire - 05/01/2008 12:00 AM TUNNELLER CHIEF COMPLAINT: Allergies. She is receiving allergy injections, since July of 2005. She is clearly better, although she notes that about gjzks-ebv-q-half weeks after her allergy injection, she tends to have a recurrence of some nasal symptoms. So she is thinking she should go more frequently for injections, and I agreed. She says due to life events she has been even later on her allergy injections recently, and I note that her last two injections she received more than four weeks from the prior one. No adverse reactions to the injections. She is taking loratadine 10 mg p.o. once daily. She does feel it helps. Every once in a while, every few months she will take a dose of Nasonex when she feels that her nose is somewhat stuffy. Then a few days later she gets what she feels is a viral syndrome, coincidentally or otherwise. She did take some albuterol this summer when she was chasing after her nieces and nephews. She was not playing baseball. She did not think to premedicate with the inhaler, but when she took it for wheezing, it was effective and well tolerated. She has worked to quit smoking, but now she is back to again smoking, and I strongly urged her to work to quit. Medications other than above include Celexa, fish oil, lisinopril, simvastatin, vitamin B, vitamin C and Zantac. No purulent drainage, no epistaxis. As previously, when nasal symptoms do breakthrough, it is a variable combination of sneezing, nasal congestion, drainage and itchy nose. OBJECTIVE DATA: Blood pressure 142/80. Pulse 76. Height 5 feet 7-3/4 inches. Weight 227 pounds. Spirometry is in normal range with FVC 4.40 (3.74), 117%. FEV1 3.89 (3.09), 125%. Values and tracing reviewed, see spirometry shingle. Physical exam - she appears well. Pleasant, cooperative. Ears - TMs without fluid or erythema. Eyes - conjunctivae clear. Nose - mild mucosal erythema and congestion. No purulent drainage, polyps, epistaxis, or crusting. Oropharynx - without erythema or drainage. Lungs - without rales, rhonchi, wheezes, or rubs. Heart - regular rate and rhythm. ASSESSMENT AND PLAN: Allergic rhinitis. Need for allergy injections. History consistent with exercise-induced bronchospasm. Continue allergy injections, preferably every three weeks, as tolerated. Continue loratadine 10 mg p.o. once daily. Discontinue Nasonex, on a p.r.n. basis use a nasal saline spray instead. I did refill her albuterol. In the form of Ventolin HFA. We compared and contrasted the currently available albuterol HFA inhalers to the prior [facility]-type inhalers, and I emphasized the importance of cleaning and priming it as per the directions. Followup visit in one year, calling or returning sooner for interval questions or concerns or difficulties. She stated understanding and agreement with treatment plan. FINAL DIAGNOSES: Allergic rhinitis. Exercise-induced bronchospasm. Need for allergy injections. DICTATED BUT NOT REVIEWED P / P tdy cc: ELLER Pulmonary, Provider - 05/01/2008 12:00 AM CSTAssociated Order(s): SPIROMETRY--SCAN documented in this encounter Nursing Notes 05/01/2008 1:30 PM CST >> JAILYN Fofana May 01, 2008 1:45 PM spirometry done today due to being a smoker results given to the md. Completed per physician's orders. Lula Pina LPN 1:45 PM 05/01/2008 >> Celsa Meredith RN brittani May 01, 2008 1:37 PM S Stephanie Norman here for allergy [...] Priority Date/Time Associated Diagnosis Comme nts SPIROMETRY--SCAN 05/01/2008 12:00 AM Resu lts for this TUNNELLER procedure are i n the results section. documented in this encounter Results SPIROMETRY--SCAN (05/01/2008 12:00 AM TUNNELLER) Specimen (Source) Anatomical Location Collection Method / Collectio n Time Received Time / Laterality Volume 05/01/2008 Narrative This result has an attachment that is no t available. Transcriptions Pulmonary, Provider - 05/01/2008 12:00 A M TUNNELLER Tejinder Fraire MD EEG/RH documented in this encounter Visit Diagnoses Diagnosis ALLERGIC RHINITIS NOS - Primary Allergic rhinitis, cause unspecified Tobacco use disorder (HRC) Tobacco use disorder Need for desensitization to allergens Exercise induced bronchospasm (HRC) Exercise induced bronchospasm documented in this encounter Care Teams Snout Puller Relationship Specialty Start Date End Date Tiffany Gonzalez, DIRECTOR OF SEARCH ENGINE MARKETING, DNP PCP - General 01/16/00 02/03/16 [address] [place] [id number] documented as of this encounter
--- OUTSIDE RECORDS SUMMARY | 2021-12-28 14:17 | XMS_ITS | Encounter Summary ---
:1965 Author Organization [employer] Address [address] [place] [address] Care Team Providers Name Role Phone Tiffany Gonzalez APRN, DNP Primary Care Provider [phone] Reason for Visit Reason Comments ALLERGY SHOT Encounter Details Date Type Department Care Team Description 10/27/2007 [facility] Visit [facility] Need for Desensitization to Allergy Clinic Allergens (Primary Dx) [address] [place] [address] Social History Tobacco Use Types Packs/Day Years Used Date Smoking Tobacco: Former Alcohol Use Standard Drinks/Week Comments Yes 0 (1 standard drink = 0.6 oz pure alcoho l) rarely Sex Assigned at Date Recorded Not on file documented as of this encounter Progress Notes Celsa Meredith - 10/27/2007 4:03 PM CDT S Stephanie Norman here for [...] Primary documented in this encounter Care Teams Vulcanizer Rubber Plate Relationship Specialty Start Date End Date Tiffany Gonzalez APRN, DNP PCP - General 01/16/00 02/03/16 [address] [place] [id number] documented as of this encounter
--- OUTSIDE RECORDS SUMMARY | 2021-12-28 14:17 | XMS_ITS | Encounter Summary ---
:1965 Author Organization [employer] Address [address] [place] [address] Care Team Providers Name Role Phone Tiffany Gonzalez APRN, DNP Primary Care Provider [phone] Encounter Details Date Type Department Care Team Description 06/07/2007 Notes/Orders [facility] Tejinder Fraire Need f or Desensitization [facility] MD to Allergens (Primary Dx) [address] [place] [address] [place], [place] [phone] Social History Tobacco Use Types Packs/Day Years Used Date Smoking Tobacco: Former Alcohol Use Standard Drinks/Week Comments Yes 0 (1 standard drink = 0.6 oz pure alcoho l) rarely Sex Assigned at Date Recorded Not on file documented as of this encounter Nursing Notes Celsa Meredith - 06/17/2007 8:06 AM CST New orders printed at [facility]. Celsa Meredith RN NGUAL SALES REPRESENTATIVE Celsa Meredith - 06/07/2007 3:22 PM CST Pt allergy extract expires 07-02-07 at the [facility] . Will have Dr. Fraire review for refill. Celsa Rotell, RN NGUAL SALES REPRESENTATIVE documented in this encounter Plan of Treatment Not on filedocumented as of this encounter Visit Diagnoses Diagnosis Need for desensitization to allergens - Primary documented in this encounter Care Teams Nailer Machine Relationship Specialty Start Date End Date Tiffany Gonzalez APRN, DNP PCP - General 01/16/00 02/03/16 [address] [place] [id number] documented as of this encounter
--- OUTSIDE RECORDS SUMMARY | 2021-12-28 14:17 | XMS_ITS | Encounter Summary ---
:1965 Author Organization [facility] Address [address] [place] [address] Care Team Providers Name Role Phone Tiffany Gonzalez APRN, DNP Primary Care Provider [phone] Encounter Details Date Type Department Care Team Description 08/05/2007 Orders Only [facility] Hypercholesterolemia with [address] Hyperglyceridemia [place], [place] [id number] Social History Tobacco Use Types Packs/Day Years Used Date Smoking Tobacco: Former Alcohol Use Standard Drinks/Week Comments Yes 0 (1 standard drink = 0.6 oz pure alcoho l) rarely Sex Assigned at Date Recorded Not on file documented as of this encounter Plan of Treatment Not on filedocumented as of this encounter Procedures Procedure Name Priority Date/Time Associated Diagnosis Comme nts LIPID PANEL, FAST Routine 08/05/2007 9:02 Hypercholesterolemia with Results for this > 12 HOUR AM CDT Hyperglyceridemia procedure are in the results section. ALT (SGPT) Routine 08/05/2007 9:02 Hypercholesterolemia with Results for this AM CDT Hyperglyceridemia procedure are in the results section. AST Routine 08/05/2007 9:02 Hypercholesterolemia with Results for this AM CDT Hyperglyceridemia procedure are in the results section. documented in this encounter Results ALT (SGPT) (08/05/2007 9:02 AM CDT) P athologist Signature ALT (SGPT) 17 0 - 55 U/L [employer] Specimen Anatomical Collection Method Collection Time Receive d Time (Source) Location / / Volume Laterality 08/05/2007 9:02 AM 8 9:03 CDT AM CDT Tiffany Gonzalez APRN, DNP LAB_1 Performing Organization Address [facility] Code Phon e Number [facility] [phone] [facility] [address] [place] [phone] AST (08/05/2007 9:02 AM CDT) P athologist Signature AST (SGOT) 18 <45 U/L [facility] Specimen Anatomical Collection Method Collection Time Receive d Time (Source) Location / / Volume Laterality 08/05/2007 9:02 AM 8 9:03 CDT AM CDT Tiffany Gonzalez APRN, DNP LAB_1 Performing Organization Address [facility] Phon e Number [facility] [phone] [phone] (ABNORMAL) LIPID PANEL, FAST > 12 HOUR (08/05/2007 9:02 AM CDT) [facility] gist Method Time Signature Cholesterol 176 0 - 199 [facility] mg/dl Triglyceride 155 (H) 0 - 149 [facility] mg/dl HDL 45 >40 mg/dl [facility] LDL, Calc. 100 0 - 129 [facility] mg/dl Hours Fasting 12 hours [facility] Specimen Anatomical Collection Method Collection Time Receive d Time (Source) Location / / Volume Laterality 08/05/2007 9:02 AM 8 9:03 CDT AM CDT Tiffany Gonzalez APRN, DNP LAB_1 Performing Organization Address [facility] Phon e Number [facility] [phone] [phone] documented in this encounter Visit Diagnoses Diagnosis Hypercholesterolemia with hyperglyceride marilee (HRC) Mixed hyperlipidemia documented in this encounter Care Teams Sales Trader Relationship Specialty Start Date End Date Tiffany Gonzalez APRN, DNP PCP - General 01/16/00 02/03/16 [address], [place] [id number] documented as of this encounter
--- OUTSIDE RECORDS SUMMARY | 2021-12-28 14:17 | XMS_ITS | Encounter Summary ---
:1965 Author Organization [employer] Address [address] [place] [address] Care Team Providers Name Role Phone Tiffany Gonzalez APRN, DNP Primary Care Provider Reason for Visit Reason Comments ALLERGY SHOT Encounter Details Date Type Department Care Team Description 08/26/2007 Office Visit [facility] Need for Desensitization to Allergy Clinic Allergens (Primary Dx) [address] [place] [address] Social History Tobacco Use Types Packs/Day Years Used Date Smoking Tobacco: Former Alcohol Use Standard Drinks/Week Comments Yes 0 (1 standard drink = 0.6 oz pure alcoho l) rarely Sex Assigned at Date Recorded Not on file documented as of this encounter Progress Notes Celsa Meredith - 08/26/2007 2:49 PM CDT S Stephanie Norman here [...] Primary documented in this encounter Care Teams Tile Trimmer Relationship Specialty Start Date End Date Tiffany Gonzalez APRN, DNP PCP - General 01/16/00 02/03/16 [address] [place] [id number] documented as of this encounter
--- OUTSIDE RECORDS SUMMARY | 2021-12-28 14:17 | XMS_ITS | Encounter Summary ---
:1965 Author Organization [employer] Address [address] [place] [address] Care Team Providers Name Role Phone Tiffany Gonzalez APRN, DNP Primary Care Provider [phone] Reason for Visit Reason Comments FALL BACK PAIN Encounter Details Date Type Department Care Team Description 02/20/2008 Office Visit [facility] Estelle Alvarado Acute Low Back Pain (Primary Dx); Neri Rodriguez MD Vascular calcifications; [address] Tobacco Use Disorder; [place] [address] HYPERTENSION NOS; [phone] Dyslipidemia Social History Tobacco Use Types Packs/Day Years Used Date Smoking Tobacco: Former Alcohol Use Standard Drinks/Week Comments Yes 0 (1 standard drink = 0.6 oz pure alcoho l) rarely Sex Assigned at Date Recorded Not on file documented as of this encounter Last Filed Vital Signs Vital Sign Reading Time Taken Comments Blood Pressure 126/70 02/20/2008 1:46 PM SUPERVISOR POWDERED SUGAR Pulse 62 02/20/2008 1:46 PM SUPERVISOR POWDERED SUGAR Temperature - - Respiratory Rate - - Oxygen Saturation - - Inhaled Oxygen Concentration - - Weight - - Height - - Body Mass Index - - documented in this encounter Patient Instructions Patient InstructionsEstelle Alvarado - 02/20/2008 2:38 PM CST May use Flexeril 10 mg at bedtime for muscle spasm. May use Tylenol with Codeine at bedtime if pain worsens or is not relieved with Flexeril. Avoid heavy lifiting. Call if you would like to begin PT. Schedule an ultrasound of the abdominal aorta. Try your best to quit smoking. Thank you! [employer] POWDERED SUGAR documented in this encounter Progress Notes Estelle Alvarado - 02/20/2008 2:02 PM CST Stephanie Norman is a 42 yr old female who presents with a chief complaint of right low back and posterior hip pain. Duration : Slipped in the bathtub on Feb 16, landing on her back. Quality : Sharp pain Severity : 06/26 Medications Used : Tylenol Precipitating Factors : blunt trauma as outlined above. Palliating Factors : Rest / Tylenol Pertinent Past Medical History : No previous hx of back pain or injury. The patient does have a history of polycystic kidney disease with elevated creatinine. Her reading was approximately 2.6 when checked at the [facility] several months ago. She is currently enrolled in a drug study and seems to be tolerating the study medication vs placebo without difficulty. Patient Active Problem List Diagnoses Code ??? 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 REFLUX ESOPHAGITIS 530.11 ??? POLYCYSTIC KIDNEY, UNSPEC 753.12 ??? HYPERTENSION NOS 401.9 ??? MENSTRUAL DISORDER NOS 626.9 ??? ENDOMETRIAL POLYP 621.0 ??? ALLERGIC RHINITIS NOS 477.9 ??? ASTHMA, UNSPECIFIED 493.90 ??? Hypercholesterolemia with Hyperglyceridemia 272.2BP ??? Tobacco Use Disorder 305.1 Meds reviewed. Allergies reviewed. Current smoker, one pack per day. ROS: No radicular pain, focal numbness or weakness of the legs. No abdominal pain or urinary complaints. No gait abnormality. No loss of consciousness. No additional musculoskeletal complaints. Exam reveals a pleasant 42 yr female in NAD BP 126/70 Pulse 62 HEENT-WNL Neck-supple Chest-clear Abdomen-soft and nontender. Bowel sounds present. Extrem-without edema There is tenderness to palpation over the right low lumbar region, posterior hip and buttock region. Negative straight leg raising test . Hip range of motion is normal DTRs are symmetric. Gait is stable. No motor weakness. Skin exam reveals no bruising or hematoma formation Lumbar spine films reveal mild disc disease at the L5 -- S1 level. There is also calcification of the abdominal aorta. I see no evidence of fractures. Assessment and Plan: 1. Low back and right posterior hip pain following trauma on February 16, with non-focal neurologic exam at this time. I've recommended conservative measures including application of warm packs alternating with ice packs, avoidance of heavy lifting and use of Tylenol as needed for daytime pain. I've written for Tylenol #3, 1-2 tablets at bedtime as needed for refractory pain, and/or Flexeril 10 mg at bedtime as needed for management of muscle spasm. Common potential side effects and precautions were reviewed and the patient was advised to read the drug information handout available through pharmacy.I offered to write for a course of physical therapy, but the patient did not wish to pursue this at the present time. She will contact us, should she change her mind. 2. Chronic tobacco use. The patient is strongly encouraged to quit smoking and has set February 21 alina quit date. 3. Calcifications of the abdominal aorta.. I've recommended that an ultrasound be formed to rule outevidence of an abdominal Aneurysm. 4. History of hypertension and dyslipidemia. The patient will continue her current treatment plan asoutlined in [facility]. Estelle Alvarado MD RVISOR POWDERED SUGAR documented in this encounter Plan of Treatment Not on filedocumented as of this encounter Results US ABDOMEN AORTA (02/23/2008 8:19 AM SUPERVISOR POWDERED SUGAR) Anatomical Region Laterality Modality Abdomen Ultrasound Specimen (Source) Anatomical Collection Method Collection Time Re ceived Time Location / / Volume Laterality 02/23/2008 8:19 AM SUPERVISOR POWDERED SUGAR Narrative 02/23/2008 8:24 AM SUPERVISOR POWDERED SUGAR ULTRASOUND OF THE ABDOMINAL AORTA February 23, 2008. INDICATION: Aortic calcification seen on x-ray. Evaluate for aneurysm. Polycystic kidney disease. COMPARISON: None. REPORT: The proximal aorta measures 2.1 x 2.1 cm. The mid aorta measures 1.6 x 1.6 cm. The distal aorta measures 1.2 x 1.2 cm. Right common iliac measures 0.7 cm and left common iliac al so measures 0.7 cm. There is some plaque seen in the abdominal aorta, astorga steve, no evidence of aneurysm. The right kidney measures 17.0 cm and th e left kidney measures 17.2 cm. Both kidneys demonstrate innumerable cys ts consistent with the patient's known polycystic kidney disease. IMPRESSION: 1. No evidence of abdominal aortic aneur ysm. 2. Kidneys both demonstrate innumerable cysts consistent with polycystic kidney disease. Procedure Note Karla Sullivan Cheko - 02/23/2008Formatting o f this note might be different from the original. ULTRASOUND OF THE ABDOMINAL AORTA Novemb er 2007. INDICATION: Aortic calcification seen on x-ray. Evaluate for aneurysm. Polycystic kidney disease. COMPARISON: None. REPORT: The proximal aorta measures 2.1 x 2.1 cm. The mid aorta measures 1.6 x 1.6 cm. The distal aorta measures 1.2 x 1.2 cm. Right common iliac measures 0.7 cm and left common iliac al so measures 0.7 cm. There is some plaque seen in the abdominal aorta, astorga steve, no evidence of aneurysm. The right kidney measures 17.0 cm and th e left kidney measures 17.2 cm. Both kidneys demonstrate innumerable cys ts consistent with the patient's known polycystic kidney disease. IMPRESSION: 1. No evidence of abdominal aortic aneur ysm. 2. Kidneys both demonstrate innumerable cysts consistent with polycystic kidney disease. Estelle Alvarado MD RAD US XR PELVIS AP (02/20/2008 2:24 PM SUPERVISOR POWDERED SUGAR) Anatomical Region Laterality Modality Pelvis Computed Radiography Specimen (Source) Anatomical Collection Method Collection Time Re ceived Time Location / / Volume Laterality 02/20/2008 2:24 PM SUPERVISOR POWDERED SUGAR Narrative 02/21/2008 10:05 AM SUPERVISOR POWDERED SUGAR PELVIS ONE VIEW 02/20/2008 Indication: Trauma. Findings: Normal. No fracture. There is a transitional L5-S1 segment. Procedure Note Benny Barbosa - 02/22/2008 PELVIS ONE VIEW 02/20/2008 Indication: Trauma. Findings: Normal. No fracture. There is a transitional L5-S1 segment. Estelle Alvaraod MD RAD GD XR L-SPINE (ROUTINE) (02/20/2008 2:24 PM SUPERVISOR POWDERED SUGAR) Anatomical Region Laterality Modality Spine, L-Spine Computed Radiography Specimen (Source) Anatomical Collection Method Collection Time Re ceived Time Location / / Volume Laterality 02/20/2008 2:24 PM SUPERVISOR POWDERED SUGAR Narrative 02/21/2008 10:05 AM SUPERVISOR POWDERED SUGAR LUMBAR SPINE 3 VIEWS 02/20/08 INDICATION: Trauma. FINDINGS: There is a transitional L5-S1 segment with the incomplete sacralization of L5 on the right. Minima l vertebral body spurring. The disc spaces are normal except for minimal L4 -L5 disc narrowing. No fracture. Procedure Note Samuel Eason, Benny - 02/22/2008 LUMBAR SPINE 3 VIEWS 02/20/08 INDICATION: Trauma. FINDINGS: There is a transitional L5-S1 segment with the incomplete sacralization of L5 on the right. Minima l vertebral body spurring. The disc spaces are normal except for minimal L4 -L5 disc narrowing. No fracture. Estelle Alvarado MD RAD GD documented in this encounter Visit Diagnoses Diagnosis Acute low back pain - Primary Lumbago Vascular calcifications Other nonspecific (abnormal) findings on radiological and other examinations of body structure Tobacco use disorder (HRC) Tobacco use disorder HYPERTENSION NOS Unspecified essential hypertension Dyslipidemia (HRC) Other and unspecified hyperlipidemia Acute low back pain Lumbago Vascular calcifications Other nonspecific (abnormal) findings on radiological and other examinations of body structure Acute low back pain Lumbago documented in this encounter Care Teams Netbackup Administrator Relationship Specialty Start Date End Date Tiffany Gonzalez, WEIGHT ENGINEER, DNP PCP - General 01/16/00 02/03/16 [address] [place] [id number] documented as of this encounter
--- OUTSIDE RECORDS SUMMARY | 2021-12-28 14:17 | XMS_ITS | Encounter Summary ---
:1965 Author Organization [email or web address] Address [address] [place] [address] Care Team Providers Name Role Phone Tiffany Gonzalez APRN, DNP Primary Care Provider Reason for Visit Reason Comments ALLERGY SHOT Encounter Details Date Type Department Care Team Description 02/23/2008 Office Visit [facility] 401 Need for Desensitization to Allergy Clinic Allergens (Primary Dx) [address] [place] [address] Social History Tobacco Use Types Packs/Day Years Used Date Smoking Tobacco: Former Alcohol Use Standard Drinks/Week Comments Yes 0 (1 standard drink = 0.6 oz pure alcoho l) rarely Sex Assigned at Date Recorded Not on file documented as of this encounter Progress Notes Celsa Meredith - 02/23/2008 8:28 AM CST S Stephanie Norman here for allergy [...] allergy shot(s) given today Celsa Meredith RN NSE REGISTRATION EXAMINER documented in this encounter Plan of Treatment Not on filedocumented as of this encounter Visit Diagnoses Diagnosis Need for desensitization to allergens - Primary documented in this encounter Care Teams Csr Retail Relationship Specialty Start Date End Date Tiffany Gonzalez APRN, DNP PCP - General 01/16/00 02/03/16 [address] [id number] documented as of this encounter
--- OUTSIDE RECORDS SUMMARY | 2021-12-28 14:17 | XMS_ITS | Encounter Summary ---
:1965 Author Organization [employer] Address [address] [place] [address] Care Team Providers Name Role Phone Tiffany Gonzalez APRN, DNP Primary Care Provider Reason for Visit Reason Comments ALLERGY SHOT Encounter Details Date Type Department Care Team Description 12/01/2007 Office Visit [facility] 401 Need for Desensitization to Allergy Clinic Allergens (Primary Dx) [address] [place] [address] Social History Tobacco Use Types Packs/Day Years Used Date Smoking Tobacco: Former Alcohol Use Standard Drinks/Week Comments Yes 0 (1 standard drink = 0.6 oz pure alcoho l) rarely Sex Assigned at Date Recorded Not on file documented as of this encounter Progress Notes Celsa Meredith - 12/01/2007 2:11 PM CDT S Stephanie Norman here for [...] Primary documented in this encounter Care Teams Sales And Marketing Director Relationship Specialty Start Date End Date Tiffany Gonzalez APRN, DNP PCP - General 01/16/00 02/03/16 [address] [id number] documented as of this encounter
--- OUTSIDE RECORDS SUMMARY | 2021-12-28 14:17 | XMS_ITS | Encounter Summary ---
:1965 Author Organization [employer] Address [address] [place] [address] Care Team Providers Name Role Phone Tiffany Gonzalze APRN, DNP Primary Care Provider Reason for Visit Reason Comments ALLERGY SHOT Encounter Details Date Type Department Care Team Description 06/07/2007 Office Visit [facility] 401 Need for Desensitization to Allergy Clinic Allergens (Primary Dx) [address] [place] [address] Social History Tobacco Use Types Packs/Day Years Used Date Smoking Tobacco: Former Alcohol Use Standard Drinks/Week Comments Yes 0 (1 standard drink = 0.6 oz pure alcoho l) rarely Sex Assigned at Date Recorded Not on file documented as of this encounter Progress Notes Celsa Meredith - 06/07/2007 3:28 PM CST S Stephanie Norman here for [...] allergy shot(s) given today Celsa Meredith RN L BONDING CRIB ATTENDANT documented in this encounter Plan of Treatment Not on filedocumented as of this encounter Visit Diagnoses Diagnosis Need for desensitization to allergens - Primary documented in this encounter Care Teams Distribution Designer Relationship Specialty Start Date End Date Tiffany Gonzalez APRN, DNP PCP - General 01/16/00 02/03/16 [address] [id number] documented as of this encounter
--- OUTSIDE RECORDS SUMMARY | 2021-12-28 14:17 | XMS_ITS | Encounter Summary ---
:1965 Author Organization [employer] Address [address] [place] [address] Care Team Providers Name Role Phone Tiffany Gonzalez APRN, DNP Primary Care Provider Reason for Visit Reason Comments ALLERGY SHOT Encounter Details Date Type Department Care Team Description 07/12/2007 Office Visit [facility] 401 Need for Desensitization to Allergy Clinic Allergens (Primary Dx) [address] [place] [address] Social History Tobacco Use Types Packs/Day Years Used Date Smoking Tobacco: Former Alcohol Use Standard Drinks/Week Comments Yes 0 (1 standard drink = 0.6 oz pure alcoho l) rarely Sex Assigned at Date Recorded Not on file documented as of this encounter Progress Notes Celsa Meredith - 07/12/2007 2:25 PM CDT S Stephanie Norman here for [...] Primary documented in this encounter Care Teams Wire Bender Hand Relationship Specialty Start Date End Date Tiffany Gonzalez APRN, DNP PCP - General 01/16/00 02/03/16 [address] [id number] documented as of this encounter
--- OUTSIDE RECORDS SUMMARY | 2021-12-28 14:17 | XMS_ITS | Encounter Summary ---
:1965 Author Organization [facility] Address [address] [place] [address] Care Team Providers Name Role Phone Tiffany Gonzalez APRN, GAIL Primary Care Provider [phone] Encounter Details Date Type Department Care Team Description 06/28/2007 Notes/Orders [place] [facility], Hypercholestero lemia with Practice Tiffany Still, Hyperglyceridemia (Primary [address] SHIELD INSTALLER, DNP Dx) [place], [place] [address] [address] [place] [address] [phone] Social History Tobacco Use Types Packs/Day Years Used Date Smoking Tobacco: Former Alcohol Use Standard Drinks/Week Comments Yes 0 (1 standard drink = 0.6 oz pure alcoho l) rarely Sex Assigned at Date Recorded Not on file documented as of this encounter Plan of Treatment Not on filedocumented as of this encounter Results ALT (SGPT) (08/05/2007 9:02 AM CDT) athologist Signature ALT (SGPT) 17 0 - 55 U/L [facility] Specimen Anatomical Collection Method Collection Time Receive d Time (Source) Location / / Volume Laterality 08/05/2007 9:02 AM 8 9:03 CDT AM CDT Tiffany Gonzalez APRN, GAIL LAB_1 Performing Organization Address City/State/ZIP Code Phon e Number [facility] [phone] [facility] [address] [place] [phone] AST (08/05/2007 9:02 AM CDT) P athologist Signature AST (SGOT) 18 <45 U/L [facility] Specimen Anatomical Collection Method Collection Time Receive d Time (Source) Location / / Volume Laterality 08/05/2007 9:02 AM 8 9:03 CDT AM CDT Tiffany Gonzalez APRN, DNP LAB_1 Performing Organization Address City/[facility]/ZIP Code Phon e Number [facility] [phone] [phone] (ABNORMAL) LIPID PANEL, FAST > 12 HOUR (08/05/2007 9:02 AM CDT) [facility] gist Method Time Signature Cholesterol 176 0 - 199 [facility] mg/dl Triglyceride 155 (H) 0 - 149 [facility] mg/dl HDL 45 >40 mg/dl [facility] LDL, Calc. 100 0 - 129 [facility] mg/dl Hours Fasting 12 hours [facility] Specimen Anatomical Collection Method Collection Time Receive d Time (Source) Location / / Volume Laterality 08/05/2007 9:02 AM 8 9:03 CDT AM CDT Tiffany Gonzalez APRN, DNP LAB_1 Performing Organization Address City/[facility] Code Phon e Number [facility] [phone] [phone] documented in this encounter Visit Diagnoses Diagnosis Hypercholesterolemia with hyperglyceride marilee (HRC) - Primary Mixed hyperlipidemia documented in this encounter Care Teams Pneumatic Tester Mechanic Relationship Specialty Start Date End Date Tiffany Gonzalez APRN, DNP PCP - General 01/16/00 02/03/16 [address] [id number] documented as of this encounter
--- OUTSIDE RECORDS SUMMARY | 2021-12-28 14:17 | XMS_ITS | Encounter Summary ---
:1965 Author Organization [facility] Address [address] [place] [address] Care Team Providers Name Role Phone Tiffany Gonzalez APRN, GAIL Primary Care Provider Encounter Details Date Type Department Care Team Description 08/05/2007 Notes/Orders [place] [facility] Lisa, Hypercholestero lemia with Practice Tiffany Still, Hyperglyceridemia (Primary [address] [place] [address] [place], DNP Dx) [address] [place] [address] [address] [place] [address] [phone] Social History Tobacco Use Types Packs/Day Years [...] hyperlipidemia documented in this encounter Care Teams Biology Department Chair Relationship Specialty Start Date End Date Tiffany Gonzalez APRN, GAIL PCP - General 01/16/00 02/03/16 [address] [address] documented as of this encounter
--- OUTSIDE RECORDS SUMMARY | 2021-12-28 14:17 | XMS_ITS | Encounter Summary ---
:1965 Author Organization [employer] Address [address] [place] [address] Care Team Providers Name Role Phone Tiffany Gonzalez APRN, DNP Primary Care Provider Reason for Visit Reason Comments ALLERGY SHOT Encounter Details Date Type Department Care Team Description 05/31/2008 Office Visit [facility] 401 Need for Desensitization to Allergy Clinic Allergens [address] [place] [address] Social History Tobacco Use Types Packs/Day Years Used Date Smoking Tobacco: Every Day Cigarettes 0.5 Alcohol Use Standard Drinks/Week Comments Yes 0 (1 standard drink = 0.6 oz pure alcoho l) rarely Sex Assigned at Date Recorded Not on file documented as of this encounter Progress Notes Celsa Meredith - 05/31/2008 2:45 PM CST S Stephanie Norman here for [...] allergy shot(s) given today Celsa Meredith RN CH MARKETING COORDINATOR documented in this encounter Plan of Treatment Not on filedocumented as of this encounter Visit Diagnoses Diagnosis Need for desensitization to allergens documented in this encounter Care Teams Gate Services Supervisor Relationship Specialty Start Date End Date Tiffany Gonzalez APRN, DNP PCP - General 01/16/00 02/03/16 [address] [address] documented as of this encounter
--- OUTSIDE RECORDS SUMMARY | 2021-12-28 14:17 | XMS_ITS | Encounter Summary ---
:1965 Author Organization [facility] Address [address] [place] [address] Care Team Providers Name Role Phone Tiffany Gonzalez APRN, GAIL Primary Care Provider [phone] Reason for Visit Reason Comments FOLLOW-UP,LAB elevated lipids Encounter Details Date Type Department Care Team Description 06/28/2007 Office Visit [facility] Gonzalez, Hypercholestero lemia with Practice Tiffany Still, Hyperglyceridemia (Primary [address] [place] [address] [place], GAIL Dx) [place], [place] [address] [address] [place] [address] [phone] Social History Tobacco Use Types Packs/Day Years Used Date Smoking Tobacco: Former Alcohol Use Standard Drinks/Week Comments Yes 0 (1 standard drink = 0.6 oz pure alcoho l) rarely Sex Assigned at Date Recorded Not on file documented as of this encounter Last Filed Vital Signs Vital Sign Reading Time Taken Comments Blood Pressure 138/64 06/28/2007 9:07 AM CDT Pulse 68 06/28/2007 9:07 AM CDT Temperature - - Respiratory Rate - - Oxygen Saturation - - Inhaled Oxygen Concentration - - Weight 105.7 kg (233 lb) 06/28/2007 9:07 AM CDT Height - - Body Mass Index 35.12 03/03/2007 10:59 AM ORACLE DATABASE MANAGER documented in this encounter Patient Instructions Patient InstructionsTiffany Gonzalez - 06/28/2007 9:22 AM CDT GO to lab today GO to pharmacy for meds. See below. For smoking, may consider Chantix: This medicine can cause behavior changes, sleep [...] unusual,or strange dreams during treatment with CHANTIX. Cardiovascular risks: Age ( Male >= 45, Female >=55) : 0 HTN ( including controlled on meds): 1 Current smoker: 1 Family history early CHD in a first degree relative ( Male <55, Female <65) : 0 HDL <40 ( minus risk if >60): 0 TOTAL RISKS : 2 Goal LDL based on risks: 0-1 risks LDL<160 2 or more risks LDL<130 (If diabetes, previous coronary artery disease, peripheral vascular disease, stroke, or aneurysm. Goal LDL <100 for one of these, <70 if two or more.) FISH OIL SUPPLEMENT/ omega 3 recommend 1000units 3x day Zocor 20mg at bedtime. Discussed medication dosage, usage, goals of therapy, and side effects. Labs due 4wks. [facility] now schedules lab visits. Please call [phone] to make your next lab visit. Then, f/u with Tiffany Gonzalez NP after lab is done. documented in this encounter Progress Notes Tiffany Gonzalez - 06/28/2007 9:13 AM CDT S: This patient presents for discussion of cholesterol results. She's not had meds for chol before. Triglycerides are high, too. Did start fish oil, just once daily last couple wks. CHOLESTEROL (mg/dl) Date Value 06/10/2007 244* 04/05/2001 260* HDL (mg/dl) Date Value 06/10/2007 44 LDL, CALC. (mg/dl) Date Value 06/10/2007 139* TRIGLYCERIDE (mg/dl) Date Value 06/10/2007 305* Family History Problem Relation ??? Cancer, Breast Mother breast, Dx age 40. 1 month later. ??? Cancer, Breast Father breast. Dx age 65. 2006. ??? Kidney Disorder Father polycystic kidney disease ??? Depression Mother ??? Depression Other uncle committed suicide History Substance Use Topics ??? Tobacco Use: Yes, restarted 01/2007 Quit date: 01/11/2006, planning on quit date 07/01/07 ??? Alcohol Use: Yes rarely Started back on treadmill few wks ago, 3x wk (30-45min sessions). Diet: f&v 3/d. She is not sureshe can improve on lifestyle more than that. Patient Active Problem List Diagnoses Code ??? 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 REFLUX ESOPHAGITIS 530.11 ??? POLYCYSTIC KIDNEY, UNSPEC 753.12 ??? HYPERTENSION NOS 401.9 ??? MENSTRUAL DISORDER NOS 626.9 ??? ENDOMETRIAL POLYP 621.0 ??? ALLERGIC RHINITIS NOS 477.9 ??? ASTHMA, UNSPECIFIED 493.90 Current outpatient prescriptions Medication Sig ??? FISH OIL 1000 MG OR CAPS 1 capsule daily ??? VITAMIN B COMPLEX OR 1 daily ??? VITAMIN C 500 MG OR TABS 2 tablets daily in cold season ??? ALBUTEROL 90 MCG/ACT IN AERS Inhale 1 or 2 puffs by mouth every 4 to 6 hours as needed for wheezing or shortness of breath ??? TRAZODONE HCL 100 MG OR TABS Take one half to one tablet by mouth at bedtime. ??? CELEXA 40MG ORAL TABS Take one tablet by mouth every day. ??? ZANTAC 150 MG OR TABS Take one by mouth twice a day ??? LISINOPRIL 5 MG OR TABS 3 tabs daily ??? NASONEX 50MCG/ACT NASAL SPRAY Inhale two sprays in each nostril once daily. ??? CLARITIN 10 MG OR TABS 1 TABLET DAILY O: BP 138/64 Pulse 68 In no acute distress, casually dressed, communicates easily A: Encounter Diagnoses Code Name Primary? Qualifier ??? 272.2BP Hypercholesterolemia with Hyperglyceridemia Yes P: Medications, side effects and lifestyle changes discussed. After above discussion, pt agreed to start Zocor and fish oil increase to tid. Labs today liver function tests and glucose. Labs in 6-8wks fasting lipid panel and liver function tests. Information on chol and triglycerides Stephanie Norman verbalizes understanding of recommendations and is in agreement. documented in this encounter Plan of Treatment Not on filedocumented as of this encounter Procedures Procedure Name Priority Date/Time Associated Diagnosis Comme nts LIPID PANEL, FAST > Routine 06/28/2007 9:54 AM Re sults for this 12 HOUR CDT procedure are i n the results section. ALT (SGPT) Routine 06/28/2007 9:54 AM Results f or this CDT procedure are i n the results section. AST Routine 06/28/2007 9:54 AM Results f or this CDT procedure are i n the results section. GLUCOSE Routine 06/28/2007 9:54 AM Results f or this CDT procedure are i n the results section. documented in this encounter Results (ABNORMAL) LIPID PANEL, FAST > 12 HOUR (06/28/2007 9:54 AM CDT) [facility] gist Method Time Signature Cholesterol 218 (H) 0 - 199 [facility] mg/dl Triglyceride 175 (H) 0 - 149 [facility] mg/dl HDL 41 >40 mg/dl [facility] LDL, Calc. 142 (H) 0 - 129 [facility] mg/dl Hours Fasting 15 hours [facility] Specimen Anatomical Collection Method Collection Time Receive d Time (Source) Location / / Volume Laterality 06/28/2007 9:54 AM 8 9:55 CDT AM CDT Tiffany Gonzalez VAN DRIVER HELPER, DNP LAB_1 Performing Organization Address City/State/ZIP Code Phon e Number [facility] [phone] [facility] [address] [place] [phone] GLUCOSE - RANDOM < 8HR FASTING (V77.1) (06/28/2007 9:54 AM CDT) athologist Signature Glucose 86 65 - 115 [facility] mg/dl Hours Fasting 15 hours [facility] Specimen Anatomical Collection Method Collection Time Receive d Time (Source) Location / / Volume Laterality 06/28/2007 9:54 AM 8 9:55 CDT AM CDT Tiffany Gonzalez APRN, DNP LAB_1 Performing Organization Address [facility] Phon e Number [facility] [phone] [facility] [address] [place] [phone] ALT (SGPT) (06/28/2007 9:54 AM CDT) P athologist Signature ALT (SGPT) 15 0 - 55 U/L [facility] Specimen Anatomical Collection Method Collection Time Receive d Time (Source) Location / / Volume Laterality 06/28/2007 9:54 AM 8 9:55 CDT AM CDT Tiffany Gonzalez APRN, DNP LAB_1 Performing Organization Address [facility] Phon e Number [facility] [phone] [facility] [address] [place] [phone] AST (06/28/2007 9:54 AM CDT) P athologist Signature AST (SGOT) 16 <45 U/L [facility] Specimen Anatomical Collection Method Collection Time Receive d Time (Source) Location / / Volume Laterality 06/28/2007 9:54 AM 8 9:55 CDT AM CDT Tiffany Gonzalez APRN, DNP LAB_1 Performing Organization Address [facility] Phon e Number [facility] [employer] [phone] [facility] [address] [place] [phone] documented in this encounter Visit Diagnoses Diagnosis Hypercholesterolemia with hyperglyceride marilee (HRC) - Primary Mixed hyperlipidemia documented in this encounter Care Teams Plug Paster Relationship Specialty Start Date End Date Tiffnay Gonzalez APRN, DNP PCP - General 01/16/00 02/03/16 [address] [id number] documented as of this encounter
--- OUTSIDE RECORDS SUMMARY | 2021-12-28 14:17 | XMS_ITS | Encounter Summary ---
:1965 Author Organization [facility] Address [address] [place] [address] Care Team Providers Name Role Phone Tiffany Gonzalez APRN, DNP Primary Care Provider [phone] Encounter Details Date Type Department Care Team Description 06/07/2007 Flowsheet [facility] 401 Yaakov Fraire MD ALLERGY INJECTION Allergy Clinic [address] RECORD [address] [place] [address] Social History Tobacco Use Types Packs/Day Years Used Date Smoking Tobacco: Former Alcohol Use Standard Drinks/Week Comments Yes 0 (1 standard drink = 0.6 oz pure alcoho l) rarely Sex Assigned at Date Recorded Not on file documented as of this encounter Progress Notes Tejinder Fraire - 06/25/2008 3:09 PM CDT documented in this encounter Plan of Treatment Not on filedocumented as of this encounter Visit Diagnoses Not on filedocumented in this encounter Care Teams Field Mechanic Relationship Specialty Start Date End Date Tiffany Gonzalez APRN, GAIL PCP - General 01/16/00 02/03/16 [address] [id number] documented as of this encounter
--- OUTSIDE RECORDS SUMMARY | 2021-12-28 14:17 | XMS_ITS | Encounter Summary ---
:1965 Author Organization [facility] Address [address] [place] [address] Care Team Providers Name Role Phone Tiffany Gonzalez APRN, DNP Primary Care Provider Encounter Details Date Type Department Care Team Description 02/23/2008 [facility]; Center Ultrasound Acute Low Back Pain [address] [place] [address] Social History Tobacco Use Types [...] Date/Time Associated Diagnosis Comme nts US ABD AORTA Routine 02/23/2008 8:19 AM Vascular Results f or this MARINE UNDERWRITER calcifications procedure are in the Acute Low Back Pain results section. documented in this encounter Results US ABDOMEN AORTA (02/23/2008 8:19 AM MARINE UNDERWRITER) Anatomical Region Laterality Modality Abdomen Ultrasound Specimen (Source) Anatomical Collection Method Collection Time Re ceived Time Location / / Volume Laterality 02/23/2008 8:19 AM MARINE UNDERWRITER Narrative 02/23/2008 8:24 AM MARINE UNDERWRITER ULTRASOUND OF THE ABDOMINAL AORTA February 23, [...] polycystic kidney disease. Procedure Note Karla Sullivan - 02/23/2008Formatting o f this note might be different from the original. ULTRASOUND OF THE ABDOMINAL AORTA Novemb er 6, 2007. INDICATION: Aortic calcification seen on x-ray. [...] with polycystic kidney disease. Estelle Alvarado MD [facility] documented in this encounter Visit Diagnoses Diagnosis Vascular calcifications Other nonspecific (abnormal) findings on radiological and other examinations of body structure Acute low back pain Lumbago documented in this encounter Care Teams Emergency Care Tech Relationship Specialty Start Date End Date Tiffany Gonzalez, UTILITY MECHANIC, DNP PCP - General 01/16/00 02/03/16 [address] [id number] documented as of this encounter
--- OUTSIDE RECORDS SUMMARY | 2021-12-28 14:17 | XMS_ITS | Encounter Summary ---
:1965 Author Organization [employer] Address [address] [place] [address] Care Team Providers Name Role Phone Tiffany Gonzalez APRN, DNP Primary Care Provider Reason for Visit Reason Comments ALLERGY SHOT Encounter Details Date Type Department Care Team Description 06/21/2008 Office Visit [facility] 401 Need for Desensitization to Allergy Clinic Allergens [address] [place] [address] Social History Tobacco Use Types Packs/Day Years Used Date Smoking Tobacco: Every Day Cigarettes 0.5 Alcohol Use Standard Drinks/Week Comments Yes 0 (1 standard drink = 0.6 oz pure alcoho l) rarely Sex Assigned at Date Recorded Not on file documented as of this encounter Progress Notes Celsa Meredith - 06/21/2008 3:30 PM CST S Stephanie Norman here for [...] allergy shot(s) given today Celsa Meredith RN TRICAL AUTOMATION ENGINEER documented in this encounter Plan of Treatment Not on filedocumented as of this encounter Visit Diagnoses Diagnosis Need for desensitization to allergens documented in this encounter Care Teams Kaiako Kura Ka[place] Maori Relationship Specialty Start Date End Date Tiffany Gonzalez APRN, DNP PCP - General 01/16/00 02/03/16 [address] [id number] documented as of this encounter
--- OUTSIDE RECORDS SUMMARY | 2021-12-28 14:17 | XMS_ITS | Encounter Summary ---
:1965 Author Organization [employer] Address [address] [place] [address] Care Team Providers Name Role Phone Tiffany Gonzalez APRN, DNP Primary Care Provider [phone] Reason for Visit Reason Comments ALLERGY SHOT Encounter Details Date Type Department Care Team Description 07/19/2007 Office Visit Specialty Center 401 Need for Desensitization to Allergy Clinic Allergens (Primary Dx) [address] [place] [address] Social History Tobacco Use Types Packs/Day Years Used Date Smoking Tobacco: Former Alcohol Use Standard Drinks/Week Comments Yes 0 (1 standard drink = 0.6 oz pure alcoho l) rarely Sex Assigned at Date Recorded Not on file documented as of this encounter Progress Notes Celsa Meredith - 07/19/2007 2:50 PM CDT S Stephanie Norman here for [...] Primary documented in this encounter Care Teams Resource Economist Relationship Specialty Start Date End Date Tiffany Gonzalez APRN, DNP PCP - General 01/16/00 02/03/16 [address] [id number] documented as of this encounter
--- OUTSIDE RECORDS SUMMARY | 2021-12-28 14:17 | XMS_ITS | Encounter Summary ---
:1965 Author Organization [facility] Address [address] [place] [address] Care Team Providers Name Role Phone Tiffany Gonzalez APRN, DNP Primary Care Provider Reason for Visit Reason Comments ALLERGY SHOT Encounter Details Date Type Department Care Team Description 07/04/2007 [facility] 401 Need for Desensitization to Allergy Clinic Allergens (Primary Dx) [address] [place] [address] Social History Tobacco Use Types Packs/Day Years Used Date Smoking Tobacco: Former Alcohol Use Standard Drinks/Week Comments Yes 0 (1 standard drink = 0.6 oz pure alcoho l) rarely Sex Assigned at Date Recorded Not on file documented as of this encounter Progress Notes Celsa Meredith - 07/04/2007 2:51 PM CDT S Stephanie Norman here for [...] Primary documented in this encounter Care Teams Chief Fishery Division Relationship Specialty Start Date End Date Tiffany Gonzalez APRN, DNP PCP - General 01/16/00 02/03/16 [address] [place] [id number] documented as of this encounter
--- OUTSIDE RECORDS SUMMARY | 2021-12-28 14:17 | XMS_ITS | Encounter Summary ---
:1965 Author Organization [facility] Address [address] [place] [address] Care Team Providers Name Role Phone Tiffany Gonzalez APRN, DNP Primary Care Provider Reason for Visit Reason Comments ALLERGY SHOT Encounter Details Date Type Department Care Team Description 05/03/2007 [facility] Visit [facility] 401 Need for Desensitization to Allergy Clinic Allergens (Primary Dx) [address] [place] [address] Social History Tobacco Use Types Packs/Day Years Used Date Smoking Tobacco: Former Alcohol Use Standard Drinks/Week Comments Yes 0 (1 standard drink = 0.6 oz pure alcoho l) rarely Sex Assigned at Date Recorded Not on file documented as of this encounter Progress Notes Celsa Meredith - 05/03/2007 3:40 PM CST S Stephanie Norman here for [...] allergy shot(s) given today Celsa Meredith RN OM STUDIO COORDINATOR documented in this encounter Plan of Treatment Not on filedocumented as of this encounter Visit Diagnoses Diagnosis Need for desensitization to allergens - Primary documented in this encounter Care Teams Motorcoach Operator Relationship Specialty Start Date End Date Tiffany Gonzalez APRN, DNP PCP - General 01/16/00 02/03/16 [address] [id number] documented as of this encounter
--- OUTSIDE RECORDS SUMMARY | 2021-12-28 14:18 | XMS_ITS | Encounter Summary ---
:1965 [address] [facility] Address [address] [place] [address] Care Team Providers Name Role Phone Tiffany Gonzalez APRN, DNP Primary Care Provider [phone] Encounter Details Date Type Department Care Team Description 03/03/2007 Orders Only [facility] 401 Unknown, Physician All[facility] Clinic [address] [place] [address] [place] [address] [phone] Social History Tobacco Use Types Packs/Day Years Used Date Smoking Tobacco: Former Alcohol Use Standard Drinks/Week Comments Yes 0 (1 standard drink = 0.6 oz pure alcoho l) rarely Sex Assigned at Date Recorded Not on file documented as of this encounter Procedure Notes Pulmonary, Provider - 03/03/2007 12:00 AM CSTAssociated Order(s): SPIROMETRY documented in this encounter Plan of Treatment Not on filedocumented as of this encounter Procedures Procedure Name Priority Date/Time Associated Diagnosis Comme nts SPIROMETRY 03/03/2007 12:00 AM Results for this FLEET MANAGER procedure are i n the results section . documented in this encounter Results SPIROMETRY (03/03/2007 12:00 AM FLEET MANAGER) Narrative 03/03/2007 12:00 AM FLEET MANAGER This result has an attachment that is no t available. Ordered by an unspecified provider. Transcriptions Pulmonary, Provider - 03/03/2007 12:00 A M FLEET MANAGER Physician Unknown DUMMY/OTHER/AR documented in this encounter Visit Diagnoses Not on filedocumented in this encounter Care Teams Chief Librarian Branch Or Department Relationship Specialty Start Date End Date Tiffany Gonzalez APRN, DNP PCP - General 01/16/00 02/03/16 [address] [place] [id number] documented as of this encounter
--- OUTSIDE RECORDS SUMMARY | 2021-12-28 14:18 | XMS_ITS | Encounter Summary ---
:1965 Author Organization [facility] Address [address] [place] [address] Care Team Providers Name Role Phone Tiffany Gonzalez APRN, DNP Primary Care Provider [phone] Reason for Visit Reason Comments ALLERGY SHOT Encounter Details Date Type Department Care Team Description 08/11/2006 Office Visit [facility] 401 Need for Desensitization to Allergy Clinic Allergens (Primary Dx) [address] [place] [address] Social History Tobacco Use Types Packs/Day Years Used Date Smoking Tobacco: Former Alcohol Use Standard Drinks/Week Comments Yes 0 (1 standard drink = 0.6 oz pure alcoho l) rarely Sex Assigned at Date Recorded Not on file documented as of this encounter Progress Notes Ruthann Bull - 08/11/2006 2:37 PM CDT S: Stephanie Barillas Emerson here for allergy injection O: The following information has been verified with Stephanie Barillas Emerson 1. Have you had any type [...] many allergy injections given this date? 1 A: Patient meets criteria for allergy injections? YES P: See allergy shot record for full documentation of allergy shot given today Ruthann Bull RN 2:36 PM documented in this encounter Plan of Treatment Not on filedocumented as of this encounter Visit Diagnoses Diagnosis Need for desensitization to allergens - Primary documented in this encounter Care Teams Home Mortgage Disclosure Act Specialist Relationship Specialty Start Date End Date Tiffany Gonzalez APRN, DNP PCP - General 01/16/00 02/03/16 [address] [id number] documented as of this encounter
--- OUTSIDE RECORDS SUMMARY | 2021-12-28 14:18 | XMS_ITS | Encounter Summary ---
:1965 Author Organization [facility] Address [address] [place] [address] Care Team Providers Name Role Phone Tiffany Gonzalez APRN, DNP Primary Care Provider Reason for Visit Reason Comments ALLERGY SHOT Encounter Details Date Type Department Care Team Description 02/03/2007 Office Visit [facility] 401 Need for Desensitization to Allergy Clinic Allergens (Primary Dx) [address] [place] [address] Social History Tobacco Use Types Packs/Day Years Used Date Smoking Tobacco: Former Alcohol Use Standard Drinks/Week Comments Yes 0 (1 standard drink = 0.6 oz pure alcoho l) rarely Sex Assigned at Date Recorded Not on file documented as of this encounter Progress Notes Celsa Meredith - 02/03/2007 3:22 PM CDT S: Stephanie Norman here for allergy injection(s) O: The following information has been verified [...] allergy shot(s) given today Celsa Meredith RN 3:00 PM documented in this encounter Plan of Treatment Not on filedocumented as of this encounter Visit Diagnoses Diagnosis Need for desensitization to allergens - Primary documented in this encounter Care Teams Gas Plumbing Inspector Relationship Specialty Start Date End Date Tiffany Gonzalez APRN, DNP PCP - General 01/16/00 02/03/16 [address] [id number] documented as of this encounter
--- OUTSIDE RECORDS SUMMARY | 2021-12-28 14:18 | XMS_ITS | Encounter Summary ---
:1965 Author Organization [facility] Address [address] [place] [address] Care Team Providers Name Role Phone Tiffany Gonzalez APRN, DNP Primary Care Provider Encounter Details Date Type Department Care Team Description 10/15/2006 Correspondence None Kevyn Lopez, Provider consent to release Social History Tobacco Use Types Packs/Day Years Used Date Smoking Tobacco: Former Alcohol Use Standard Drinks/Week Comments Yes 0 (1 standard drink = 0.6 oz pure alcoho l) rarely Sex Assigned at Date Recorded Not on file documented as of this encounter Progress Notes Kevyn Lopez, Provider - 10/15/2006 12:00 AM CDT documented in this encounter Plan of Treatment Not on filedocumented as of this encounter Visit Diagnoses Not on filedocumented in this encounter Care Teams Therapeutic Specialist Relationship Specialty Start Date End Date Tiffany Gonzalez APRN, GAIL PCP - General 01/16/00 02/03/16 [address] [id number] documented as of this encounter
--- OUTSIDE RECORDS SUMMARY | 2021-12-28 14:18 | XMS_ITS | Encounter Summary ---
:1965 Author Organization [email or web address] Address [address] [place] [address] Care Team Providers Name Role Phone Tiffany Gonzalez APRN, DNP Primary Care Provider Reason for Visit Reason Comments ALLERGY SHOT Encounter Details Date Type Department Care Team Description 09/17/2006 Office Visit [facility] 401 Need for Desensitization to Allergy Clinic Allergens (Primary Dx) [address] [place] [address] Social History Tobacco Use Types Packs/Day Years Used Date Smoking Tobacco: Former Alcohol Use Standard Drinks/Week Comments Yes 0 (1 standard drink = 0.6 oz pure alcoho l) rarely Sex Assigned at Date Recorded Not on file documented as of this encounter Progress Notes Celsa Meredith - 09/17/2006 2:50 PM CDT S: Stephanie Norman here for [...] allergy shot(s) given today Celsa Meredith RN 2:45 PM documented in this encounter Plan of Treatment Not on filedocumented as of this encounter Visit Diagnoses Diagnosis Need for desensitization to allergens - Primary documented in this encounter Care Teams Brand Ambassadors Promotional Sales Relationship Specialty Start Date End Date Tiffany Gonzalez APRN, DNP PCP - General 01/16/00 02/03/16 [address] [id number] documented as of this encounter
--- OUTSIDE RECORDS SUMMARY | 2021-12-28 14:18 | XMS_ITS | Encounter Summary ---
:1965 Author Organization [facility] Address [address] [place] [address] Care Team Providers Name Role Phone Tiffany Gonzalez APRN, DNP Primary Care Provider [phone] Reason for Visit Reason Onset Date Comments PINK-EYE 03/21/2007 Encounter Details Date Type Department Care Team Description 03/21/2007 Telephone [facility] Tiffany Gonzalez, PINK-EYE [address] [place] [address] [facility] [phone] [place] [id number] (Wo rk) Social History Tobacco Use Types Packs/Day Years Used Date Smoking Tobacco: Former Alcohol Use Standard Drinks/Week Comments Yes 0 (1 standard drink = 0.6 oz pure alcoho l) rarely Sex Assigned at Date Recorded Not on file documented as of this encounter Nursing Notes Karla Burrell - 03/21/2007 9:07 AM CST S: This 42 yr female presents with a history of eye redness, itching of eye(s), mucoid eye discharge, purulent eye discharge for the past one day. O: There is: a history of exposure to family members or others with conjunctivitis, no history of exposure to other illnesses. Screen for need for further evaluation (consult with provider if any are Yes): Age less than 3 years? NO Acutely ill with fever >102? No Eyes remain swollen shut after cleaning? No Significant eye pain? No Marked redness of conjunctiva immediately adjacent to the cornea? No Bulging eyes or difficulty moving eyes? No A rash consistent with unilateral herpes on skin around the eye? No Any visual disturbance? No Contact lens wearer? Yes; but has not worn for awhile/ Ear pain? No Other Amoxicillin, Penicillins and Neomycin A: Bacterial Conjunctivitis P: Rx ordered. Warm pack to eye for 15 minutes, 4 times per day Practice good handwashing. Do not touch the medicine drop bottle to the skin. Okay to return to school or work 24 hours after starting the medicine. Call us with eye pain, problems with vision, headaches, fever, or concerns Expect improvement within three to four days, or call us back RTMENT CHAIR Dona Paige - 03/21/2007 7:47 AM CST When did the symptoms start: lastnight 1days ago. Symptoms red eye,goopy,itchy Has the patient experienced this before: no If so, when: n/a Dona Paige RTMENT CHAIR documented in this encounter Plan of Treatment Not on filedocumented as of this encounter Visit Diagnoses Not on filedocumented in this encounter Care Teams Clerical Support Specialist Relationship Specialty Start Date End Date Tiffany Gonzalez APRN, DNP PCP - General 01/16/00 02/03/16 [address] [place] [id number] documented as of this encounter
--- OUTSIDE RECORDS SUMMARY | 2021-12-28 14:18 | XMS_ITS | Encounter Summary ---
:1965 Author Organization [facility] Address [address] [place] [address] Care Team Providers Name Role Phone Tiffany Gonzalez APRN, DNP Primary Care Provider [phone] Reason for Visit Reason Comments ALLERGY SHOT Encounter Details Date Type Department Care Team Description 08/04/2006 Office Visit [facility] 401 Need for Desensitization to Allergy Clinic Allergens (Primary Dx) [address] [place] [address] Social History Tobacco Use Types Packs/Day Years Used Date Smoking Tobacco: Former Alcohol Use Standard Drinks/Week Comments Yes 0 (1 standard drink = 0.6 oz pure alcoho l) rarely Sex Assigned at Date Recorded Not on file documented as of this encounter Progress Notes Ruthann Bull - 08/04/2006 3:00 PM CDT S: Stephanie Barillas Emerson here [...] allergy shot given today Ruthann Bull RN 2:57 PM documented in this encounter Plan of Treatment Not on filedocumented as of this encounter Visit Diagnoses Diagnosis Need for desensitization to allergens - Primary documented in this encounter Care Teams Airframe Technician Relationship Specialty Start Date End Date Tiffany Gonzalez APRN, DNP PCP - General 01/16/00 02/03/16 [address] [id number] documented as of this encounter
--- OUTSIDE RECORDS SUMMARY | 2021-12-28 14:18 | XMS_ITS | Encounter Summary ---
:1965 Author Organization [email or web address] Address [address] [place] [address] Care Team Providers Name Role Phone Tiffany Gonzalez APRN, DNP Primary Care Provider Reason for Visit Reason Comments DEPRESSION follow-up Encounter Details Date Type Department Care Team Description 09/07/2006 Office Visit [facility] Lisa, Depressive Disorder, [address] Tiffany Still APRN, [place] [address] DNP Classified (Primary [phone] [place]) [place] [address] (Wo rk) Social History Tobacco Use Types Packs/Day Years Used Date Smoking Tobacco: Former Alcohol Use Standard Drinks/Week Comments Yes 0 (1 standard drink = 0.6 oz pure alcoho l) rarely Sex Assigned at Date Recorded Not on file documented as of this encounter Last Filed Vital Signs Vital Sign Reading Time Taken Comments Blood Pressure 128/84 09/07/2006 8:40 AM CDT Pulse 60 09/07/2006 8:40 AM CDT Temperature - - Respiratory Rate - - Oxygen Saturation - - Inhaled Oxygen Concentration - - Weight 103.9 kg (229 lb) 09/07/2006 8:40 AM CDT Height - - Body Mass Index 35.34 2006 1:20 PM NATURALIST documented in this encounter Progress Notes Tiffany Gonzalez - 09/07/2006 8:41 AM CDT S: Stephanie Norman is here for follow-up of depression, which was diagnosed 2 month(s) ago. She is taking Celexa 20mg daily. She is not being treated with psychotherapy now. Had just one session with Lindsey Wood, therapist. Since the last clinic visit, the patient states symptoms have Improved. Her life is much better and she is less crabby kamaljit around time of menses. Her partner has noticed big change in her mood, patience level. Person at work causing great strife for her did retire. That has made a world of difference for her at work. Her team is now working well. Currently they include: the symptoms recorded on the PHQ-9 score of 1 with saying that several days of feeling tired/having little energy O:BP 128/84 Pulse 60 Wt 229 lbs (103.874 kg) Affect: bright, congenial PHQ-9 was administered today with a total score of 1 A: Diagnosis: Major depression - single episode (296.2) Symptoms are clearly responding to treatment (PHQ-9 score < half of score recorded at initial diagnosis) which show improvement since last visit. P: Continue present treatment RTC prn. Refills given on Celexa. documented in this encounter Plan of Treatment Not on filedocumented as of this encounter Visit Diagnoses Diagnosis Depressive disorder, not elsewhere class ified - Primary documented in this encounter Care Teams Is/It Project Manager Relationship Specialty Start Date End Date Tiffany Gonzalez, HOPS FARMWORKER, DNP PCP - General 01/16/00 02/03/16 [address] [id number] documented as of this encounter
--- OUTSIDE RECORDS SUMMARY | 2021-12-28 14:18 | XMS_ITS | Encounter Summary ---
:1965 Author Organization [facility] Address [address] [place] [address] Care Team Providers Name Role Phone Tiffany Gonzalez APRN, GAIL Primary Care Provider [phone] Reason for Visit Reason Comments ALLERGY SHOT Encounter Details Date Type Department Care Team Description 03/30/2007 Office Visit [facility] 401 Need for Desensitization to Allergy Clinic Allergens (Primary Dx) [address] [place] [address] Social History Tobacco Use Types Packs/Day Years Used Date Smoking Tobacco: Former Alcohol Use Standard Drinks/Week Comments Yes 0 (1 standard drink = 0.6 oz pure alcoho l) rarely Sex Assigned at Date Recorded Not on file documented as of this encounter Progress Notes Nelly Ludwig - 03/30/2007 2:55 PM CST S: Stephanie Barillas Emerson here for allergy injection(s) O: The following [...] allergy shot(s) given today Nelly Ludwig RN 2:50 PM EACH LIBRARIAN documented in this encounter Plan of Treatment Not on filedocumented as of this encounter Visit Diagnoses Diagnosis Need for desensitization to allergens - Primary documented in this encounter Care Teams Field Party Manager Relationship Specialty Start Date End Date Tiffany Gonzalez APRN, DNP PCP - General 01/16/00 02/03/16 [address] [id number] documented as of this encounter
--- OUTSIDE RECORDS SUMMARY | 2021-12-28 14:18 | XMS_ITS | Encounter Summary ---
:1965 Author Organization [employer] [facility] [facility] Address [address] [place] [address] Care Team Providers Name Role Phone Tiffany Gonzalez APRN, DNP Primary Care Provider [phone] Reason for Visit Reason Comments MOLE 2 moles on upper chest. D ar k some color changes on left side right side becoming raised. Encounter Details Date Type Department Care Team Description 12/10/2006 Office Visit [facility] Nabeel Huerta, Capillary Hemangioma of Skin (Primary Dx); [address] JANA Skin Tag; [place] [address] [address] [facility] Benign Neoplasm of Skin of Chest Wall; [phone] [place], [place] Other Sympto ms Involving Skin and Integumentary Tissues [id number] (Wo rk) Social History Tobacco Use Types Packs/Day Years Used Date Smoking Tobacco: Former Alcohol Use Standard Drinks/Week Comments Yes 0 (1 standard drink = 0.6 oz pure alcoho l) rarely Sex Assigned at Date Recorded Not on file documented as of this encounter Progress Notes Nabeel Huerta PA-C - 12/17/2006 7:05 AM CDT Quick Note: Inform pt. Of benign bx.'s to chest HELDER Gordillo abeel Ornelas PA-C - 12/10/2006 10:19 AM CDT SUBJECTIVE: Stephanie Norman is a 41 yr female who would like a skin check today. There is no personal history of skin cancer. There is family history of skin cancer. See below for history and description of each lesion. OBJECTIVE: There were no vitals taken for this visit. Appears well, alert, oriented, pleasant and cooperative. Complete skin exam is performed. Lesion on upper chest =1lt=3mm,1rt.=4mm and lt. Neck=skin tag with patient's observations stated as increasing diameter, darkening color, itching, tendency to be traumatized, exam of this area shows benign intradermal nevus, seborrheic keratosis, skin tags, features sharp border, irregularly pigmented, classic small skin tags, size see above. ASSESSMENT: benign intradermal nevus, seborrheic keratosis, skin tags PLAN: excision or biopsy is indicated. With pt. Consent the sites were prepped and injected with 1% lido w/epi. Shave excision was completed. Cautery was used to control slight blding. Dsging applied to each site. Pt. Erin. Well. I d/w pt. Home mgmt and f/u. SPEC. SENT TO PATH OF THE CHEST LESIONS. Sun protection with sunscreens and clothing to prevent skin cancer is discussed. The signs and symptoms of malignant skin lesions are reviewed with her today. Nabeel Huerta, PAC documented in this encounter Plan of Treatment Not on filedocumented as of this encounter Procedures Procedure Name Priority Date/Time Associated Diagnosis Comme nts SURGICAL PATH Routine 12/10/2006 10:00 AM Results for this CDT procedure are i n the results section . documented in this encounter Results SURGICAL PATH (12/10/2006 10:00 AM CDT) [facility] Method Time Signature 9911 (NOTE) [facility] Final Report Patient Name: STEPHANIE NORMAN Taken: 12/10/2006 Received: 12/10/2006 Reported: 12/13/2006 Physician(s): NABEEL HUERTA ([id number]) ? Final Pathologic Diagnosis A. ??Skin, right upper chest, biopsy -- capillary hemangioma B. ??Skin, left upper chest, biopsy -- Intradermal nevus, ex tending to base of biopsy ?? [facility]/12/13/2006 Electronically Signed Out By ? Farzad Miller MD ([id number]) Procedures/Addenda Clinical History A. ??Right upper chest mole B. ??Left upper chest lesion Gross Description A. ??The specimen is received in formalin and labeled with t he patient' s name and right. ??The specimen consists of a 0.2 cm grea test dimension irregular brown tissue fragment. ??The specimen is inked black and entirely submitted in one cassette. ?? B. ??The specimen is received in formalin and labeled with t he patient' s name and left. ??The specimen consists of a 0.5 x 0.2 x 0.2 cm sahu to brown skin shave biopsy. ??The specimen is inked black, b isected and entirely submitted in one cassette. ??[place] [address]/12/12/2006 Microscopic Description Microscopic examination is performed on two slides for A and two slides for B. [facility]12/13/2006 Farzad Miller MD ([id number]) Specimen Anatomical Collection Method Collection Time Receive d Time (Source) Location / / Volume Laterality 12/10/2006 10:00 12/10/2006 6:00 AM CDT PM CDT Nabeel Huerta PA-C LAB_1 Performing Organization Address City/State/ZIP Code Phon e Number [facility] [phone] [facility] [address] [place] [id number] documented in this encounter Visit Diagnoses Diagnosis Capillary hemangioma of skin - Primary Hemangioma of skin and subcutaneous tiss ue Skin tag Unspecified hypertrophic and atrophic co ndition of skin Benign neoplasm of skin of chest wall Benign neoplasm of skin of trunk, except scrotum Other symptoms involving skin and integu mentary tissues documented in this encounter Care Teams Typer Relationship Specialty Start Date End Date Tiffany Gonzalez APRN, DNP PCP - General 01/16/00 02/03/16 [address] [address] documented as of this encounter
--- OUTSIDE RECORDS SUMMARY | 2021-12-28 14:18 | XMS_ITS | Encounter Summary ---
:1965 Author Organization [facility] Address [address] [place] [address] Care Team Providers Name Role Phone Tiffany Gonzalez APRN, DNP Primary Care Provider [phone] Encounter Details Date Type Department Care Team Description 07/14/2006 Correspondence [facility] Tiffany Gonzalez, [address] [facility] [address] [address] [phone] [place] [id number] (Wo rk) Social History Tobacco Use Types Packs/Day Years Used Date Smoking Tobacco: Former Alcohol Use Standard Drinks/Week Comments Yes 0 (1 standard drink = 0.6 oz pure alcoho l) rarely Sex Assigned at Date Recorded Not on file documented as of this encounter Progress Notes Tiffany Gonzalez - 07/14/2006 12:00 AM CDT documented in this encounter Plan of Treatment Not on filedocumented as of this encounter Visit Diagnoses Not on filedocumented in this encounter Care Teams Tenant Relations Coordinator Relationship Specialty Start Date End Date Tiffany Gonzalez APRN, DNP PCP - General 01/16/00 02/03/16 [address] [place] [id number] documented as of this encounter
--- OUTSIDE RECORDS SUMMARY | 2021-12-28 14:18 | XMS_ITS | Encounter Summary ---
:1965 Author Organization [employer] Address [address] [place] [address] Care Team Providers Name Role Phone Tiffany Gonzalez APRN, DNP Primary Care Provider Reason for Visit Reason Comments Follow Up Allergy / Asthma Encounter Details Date Type Department Care Team Description 03/03/2007 Office Visit [facility] Tejinder Fraire Allerg ic Rhinitis due to Other Allergen (Primary Dx); [facility] MD Need for Desensitization to Allergens; [address] Screening for Other and Unspecified Resp iratory Condition; [place] [address] [place], [place] [facility] [phone] [id number] Social History Tobacco Use Types Packs/Day Years Used Date Smoking Tobacco: Former Alcohol Use Standard Drinks/Week Comments Yes 0 (1 standard drink = 0.6 oz pure alcoho l) rarely Sex Assigned at Date Recorded Not on file documented as of this encounter Last Filed Vital Signs Vital Sign Reading Time Taken Comments Blood Pressure 142/88 03/03/2007 10:59 AM FIRE WATCHER Pulse 80 03/03/2007 10:59 AM FIRE WATCHER Temperature - - Respiratory Rate - - Oxygen Saturation - - Inhaled Oxygen Concentration - - Weight 108.4 kg (239 lb) 03/03/2007 10:59 AM FIRE WATCHER Height 173.5 cm (5' 8.3) 03/03/2007 10:59 AM FIRE WATCHER Body Mass Index 36.02 03/03/2007 10:59 AM FIRE WATCHER documented in this encounter Patient Instructions Patient Txgcgbmacoxb88/15/2007 2:53 PM FIRE WATCHER Nasal saline Continue allergy injections Continue Loratadine If you have any questions, please call the Allergy department at [phone] WATCHER documented in this encounter Progress Notes Tejinder Fraire - 03/03/2007 2:53 PM CST This office note has been dictated. WATCHER documented in this encounter Procedure Notes Tejinder Fraire - 03/03/2007 12:00 AM FIRE WATCHER CHIEF COMPLAINT: Allergies. Symptomatically, she is doing well. She feels she is benefiting from allergy injections. She does not specifically feel that she has had additional relief to that which she mentioned at her visit January of 2006, but the relief that she has sustained has been significant and ongoing. She has not been needing Nasonex or other nasal corticosteroid sprays. She is on loratadine 10 mg once daily. When later we discussed the possibility of discontinuing that, there is a history in recent days or weeks having some postnasal drainage causing a sense of congestion in her throat. She is unable to really clear anything. When I later looked in her nose, she has a nosebleed on the left side. She has been blowing her nose at times, but was unaware of having a nosebleed. No purulent drainage. She did not play baseball this summer, so there was no need for her albuterol inhaler. She had quit smoking prior to her last visit, and has continued not to smoke. By medical record review, since I last saw her, there are entries such as regarding her Celexa dose by phone message March 01, a visit in Family Practice in November for a skin check, and so on. OBJECTIVE DATA: Blood pressure 142/88. Pulse 80. Height 5 feet 8 inches. Weight 239 pounds. Spirometry is within normal range with FVC 4.23 (3.78), 111%. FEV1 3.81 (3.12), 121%. Values and tracing reviewed, see spirometry shingle. Physical exam - she appears well. Pleasant and cooperative. Ears - TMs without fluid or erythema. Eyes - conjunctivae clear. Nose - hyperemic mucosa, mild congestion. Small area of epistaxis left anterior septum. No purulent drainage. No polyps. Oropharynx - without erythema or drainage. Lungs - without rales, rhonchi, wheezes, or rubs. Heart - regular rate and rhythm. ASSESSMENT AND PLAN: Allergic rhinitis. Follow up wheezing. Epistaxis. I gave her nasal saline spray to use regularly. Since she is having some residual drainage, I am not taking her off loratadine, on the other hand we are in agreement not to change her antihistamine or add other therapy. Continue allergy injections. Albuterol p.r.n. Followup visit in one year. I asked that she call or return sooner if interval questions or concerns or difficulties, and she agreed. She will obtain an influenza vaccination. FINAL DIAGNOSES: Allergic rhinitis. Follow up wheezing. Epistaxis. Allergy injections. DICTATED BUT NOT REVIEWED P cc: WATCHER documented in this encounter Nursing Notes 03/03/2007 10:45 AM CST >> Celsa Meredith RN [facility] Mar 03, 2007 10:33 AM S: Stephanie Norman here for allergy injection(s) [...] allergy shot(s) given today Celsa Meredith RN 10:30 AM documented in this encounter Plan of Treatment Not on filedocumented as of this encounter Procedures Procedure Name Priority Date/Time Associated Diagnosis Comme nts SPIROMETRY--SCAN 03/03/2007 12:00 AM Resu lts for this FIRE WATCHER procedure are i n the results section. documented in this encounter Visit Diagnoses Diagnosis Allergic rhinitis due to other allergen - Primary Need for desensitization to allergens Screening for other and unspecified resp iratory condition Epistaxis documented in this encounter Care Teams Manager Transit Relationship Specialty Start Date End Date Tiffany Gonzalez APRN, DNP PCP - General 01/16/00 02/03/16 [address] [id number] documented as of this encounter
--- OUTSIDE RECORDS SUMMARY | 2021-12-28 14:18 | XMS_ITS | Encounter Summary ---
:1965 Author Organization [employer] Address [address] [place] [address] Care Team Providers Name Role Phone Tiffany Gonzalez APRN, DNP Primary Care Provider [phone] Reason for Visit Reason Comments ALLERGY SHOT Encounter Details Date Type Department Care Team Description 08/20/2006 [facility] Need for Desensitization to Allergy Clinic Allergens (Primary Dx) [address] [place] [address] Social History Tobacco Use Types Packs/Day Years Used Date Smoking Tobacco: Former Alcohol Use Standard Drinks/Week Comments Yes 0 (1 standard drink = 0.6 oz pure alcoho l) rarely Sex Assigned at Date Recorded Not on file documented as of this encounter Progress Notes Celsa Meredith - 08/20/2006 3:07 PM CDT S: Stephanie Norman here for [...] Primary documented in this encounter Care Teams Coroner'S Juror Relationship Specialty Start Date End Date Tiffany Gonzalez APRN, DNP PCP - General 01/16/00 02/03/16 [address] [id number] documented as of this encounter
--- OUTSIDE RECORDS SUMMARY | 2021-12-28 14:18 | XMS_ITS | Encounter Summary ---
:1965 Author Organization [facility] Address [address] [place] [address] Care Team Providers Name Role Phone Tiffany Gonzalez APRN, DNP Primary Care Provider Reason for Visit Reason Comments Sore Throat sore throat, nasal congestio n, dry cough x 9 days Encounter Details Date Type Department Care Team Description 03/23/2007 Office Visit [facility] Cheri Dias, Acute URI (Primary Dx); [address] [place] Sore Throat; [place] [address] ASTHMA, UNSPECIFIED [phone] [place], [place] [id number] Social History Tobacco Use Types Packs/Day Years Used Date Smoking Tobacco: Former Alcohol Use Standard Drinks/Week Comments Yes 0 (1 standard drink = 0.6 oz pure alcoho l) rarely Sex Assigned at Date Recorded Not on file documented as of this encounter Last Filed Vital Signs Vital Sign Reading Time Taken Comments Blood Pressure 116/78 03/23/2007 9:05 AM CONTENT ENGINEER Pulse 60 03/23/2007 9:05 AM CONTENT ENGINEER Temperature 36.1 ??C (97 ??F) 03/23/2007 9:05 AM CONTENT ENGINEER Respiratory Rate 12 03/23/2007 9:05 AM CONTENT ENGINEER Oxygen Saturation - - Inhaled Oxygen Concentration - - Weight - - Height - - Body Mass Index - - documented in this encounter Progress Notes Cheri Dias - 03/23/2007 10:23 AM CST SUBJECTIVE Stephanie Norman is a 42 yr old female here with concern about congestion, sore throat, swollen glands, and dry cough for 9 days. Patient denies a history of wheezing- but has a tight wheezy cough- does not have her inhaler- she does have a history of asthma. No shortness of breath or chest pa in. Patient does not smoke cigarettes. The cough is disrupting her sleep, otc meds not helping. No sinus pain- some bloody mucous when blowing nose today. No fever. OBJECTIVE: BP 116/78 Pulse 60 Temp 97 ??F (36.1 ??C) Resp 12 Appears moderately ill. Ears with slight serous effussion. Throat and pharynx slightly erythematous,no exudate. Neck supple. Mild anterior cervical adenopathy in the neck. Nose is congested- turbinates dark pink but not red. Sinuses non tender. The chest is clear, without wheezes or rales- tight wheezy cough. Quick strep negative ASSESSMENT: viral upper respiratory illness Asthma PLAN:Robitussin ac for nightime cough as directed Albuterol inhaler- use with glucose and syrup weigher Tessalon perles Symptomatic therapy suggested: push fluids, rest, use vaporizer or mist prn, use antihistamine-decongestant of choice, cough suppressant of choice prn and return to clinic if symptoms persist longer than 1 more week without improving or if worsening. Cheri Dias RN, ARTIST SCIENTIFIC ENT ENGINEER documented in this encounter Plan of Treatment Not on filedocumented as of this encounter Procedures Procedure Name Priority Date/Time Associated Diagnosis Comme nts STREP GRP A, RAPID Waiting 03/23/2007 9:29 AM Sore Throat Res ults for this SCREEN CONTENT ENGINEER procedure are i n the results section. documented in this encounter Results STREP GRP A, RAPID SCREEN (03/23/2007 9:29 AM CONTENT ENGINEER) [facility] Method Time Signature Patient Home None [facility] # Patient Work None [facility] [employer] [facility] # Grp A Rapid Negative [facility] Screen Grp A Culture Negative [facility] Final Specimen Anatomical Collection Method Collection Time Receive d Time (Source) Location / / Volume Laterality 03/23/2007 9:29 AM 9:30 CONTENT ENGINEER AM CONTENT ENGINEER Cheri Dias APRN, [facility]_1 Performing Organization Address City/State/ZIP Code Phon e Number [facility] [phone] [address] documented in this encounter Visit Diagnoses Diagnosis Acute URI - Primary Acute upper respiratory infections of un specified site Sore throat Acute pharyngitis ASTHMA, UNSPECIFIED Unspecified asthma documented in this encounter Care Teams Associate Agent Insurance Sales Relationship Specialty Start Date End Date Tiffany Gonzalez APRN, DNP PCP - General 01/16/00 02/03/16 [address] [place] [id number] documented as of this encounter
--- OUTSIDE RECORDS SUMMARY | 2021-12-28 14:18 | XMS_ITS | Encounter Summary ---
:1965 Author Organization [employer] Address [address] [place] [address] Care Team Providers Name Role Phone Tiffany Gonzalez APRN, DNP Primary Care Provider [phone] Reason for Visit Reason Comments ALLERGY SHOT Encounter Details Date Type Department Care Team Description 01/07/2007 [facility] Visit [facility] Need for Desensitization to Allergy Clinic Allergens (Primary Dx) [address] [place] [address] Social History Tobacco Use Types Packs/Day Years Used Date Smoking Tobacco: Former Alcohol Use Standard Drinks/Week Comments Yes 0 (1 standard drink = 0.6 oz pure alcoho l) rarely Sex Assigned at Date Recorded Not on file documented as of this encounter Progress Notes Celsa Meredith - 01/07/2007 2:48 PM CDT S: Stephanie Norman here for [...] allergy shot(s) given today Celsa Meredith RN 2:40 PM documented in this encounter Plan of Treatment Not on filedocumented as of this encounter Visit Diagnoses Diagnosis Need for desensitization to allergens - Primary documented in this encounter Care Teams Rn Managed Care Relationship Specialty Start Date End Date Tiffany Gonzalez APRN, DNP PCP - General 01/16/00 02/03/16 [address] [id number] documented as of this encounter
--- OUTSIDE RECORDS SUMMARY | 2021-12-28 14:18 | XMS_ITS | Encounter Summary ---
:1965 Author Organization [facility] Address [address] [place] [address] Care Team Providers Name Role Phone Tiffany Gonzalez APRN, GAIL Primary Care Provider Reason for Visit Reason Onset Date Comments UPDATE 04/04/2007 Encounter Details Date Type Department Care Team Description 04/04/2007 Telephone [facility] Tiffany Gonzalez, UPDATE [address] [address] [facility] [phone] [place], [place] [id number] (Wo rk) Social History Tobacco Use Types Packs/Day Years Used Date Smoking Tobacco: Former Alcohol Use Standard Drinks/Week Comments Yes 0 (1 standard drink = 0.6 oz pure alcoho l) rarely Sex Assigned at Date Recorded Not on file documented as of this encounter Nursing Notes Tiffany Gonzalez - 04/04/2007 10:42 AM CST Pt given scheduling number for genetic counseling. [phone]. Rachel Ansari - 04/04/2007 10:00 AM CST Pt states is sleeping better by using Trazodone. Pt also wanted to update Obey on the autopsy results on her father. Pt's father had a blood clot in his liver and it was also found that he had CA thathad metasisized though out his body. Father had been dx with Breast CA 4 years earlier. Both of the pt's parent had breast CA. Pt advised to cont to do yearly mammo's and to schedule appt if she ever notes any lumps, nipple discharge or any other breast changes. Pt also wondering if she should go through with genic testing to see if she have concern for CA. Please call pt back at her work number to advise her. Rachel Saeed LPN CE ASSISTANT RECEPTIONIST Tiffany Gonzalez - 04/04/2007 9:05 AM CST Call pt and see how her sleep is. Please see my last clinic note. CE ASSISTANT RECEPTIONIST documented in this encounter Plan of Treatment Not on filedocumented as of this encounter Visit Diagnoses Not on filedocumented in this encounter Care Teams Nursing Staff Development Coordinator Relationship Specialty Start Date End Date Tiffany Gonzalez, BACKUP OPERATOR, DNP PCP - General 01/16/00 02/03/16 [address] [id number] documented as of this encounter
--- OUTSIDE RECORDS SUMMARY | 2021-12-28 14:18 | XMS_ITS | Encounter Summary ---
:1965 Author Organization [facility] Address [address] [place] [address] Care Team Providers Name Role Phone Tiffany Gonzalez APRN, DNP Primary Care Provider Reason for Visit Reason Onset Date Comments Medication Request 03/01/2007 Encounter Details Date Type Department Care Team Description 03/01/2007 Telephone [facility] Tiffany Gonzalez Medication Request [address] [place] [address] [facility] [phone] [place] [id number] (Wo rk) Social History Tobacco Use Types Packs/Day Years Used Date Smoking Tobacco: Former Alcohol Use Standard Drinks/Week Comments Yes 0 (1 standard drink = 0.6 oz pure alcoho l) rarely Sex Assigned at Date Recorded Not on file documented as of this encounter Nursing Notes Kim Lu - 03/01/2007 3:56 PM CST Spoke with pt, scheduled appt for 03/03 ECT CONSTRUCTION MANAGER Tiffany Gonzalez - 03/01/2007 1:45 PM CST There are many kinds of meds for sleep assistance with many different side effects. Would really prefer pt to come in and see me in clinic to discuss. ECT CONSTRUCTION MANAGER Kim Lu - 03/01/2007 8:45 AM CST Pt requesting medication for sleep and also wanting to have Celexa dosage increased for about a month. Says she just lost her father last week so she is feeling really down. ECT CONSTRUCTION MANAGER documented in this encounter Plan of Treatment Not on filedocumented as of this encounter Visit Diagnoses Not on filedocumented in this encounter Care Teams Tube Backer Relationship Specialty Start Date End Date Tiffany Gonzalez, WELL LOGGING CAPTAIN MUD ANALYSIS, DNP PCP - General 01/16/00 02/03/16 [address] [id number] documented as of this encounter
--- OUTSIDE RECORDS SUMMARY | 2021-12-28 14:18 | XMS_ITS | Encounter Summary ---
:1965 Author Organization [facility] Address [address] [place] [address] Care Team Providers Name Role Phone Tiffany Gonzalez APRN, GAIL Primary Care Provider Reason for Visit Reason Comments ALLERGY SHOT Encounter Details Date Type Department Care Team Description 07/26/2006 Office Visit [facility] 401 Need for Desensitization to Allergy Clinic Allergens (Primary Dx) [address] [place] [address] Social History Tobacco Use Types Packs/Day Years Used Date Smoking Tobacco: Former Alcohol Use Standard Drinks/Week Comments Yes 0 (1 standard drink = 0.6 oz pure alcoho l) rarely Sex Assigned at Date Recorded Not on file documented as of this encounter Progress Notes Nelly Ludwig - 07/26/2006 2:58 PM CDT S: Stephanie Norman here for [...] allergy shot(s) given today Nelly Ludwig RN 2:55 PM documented in this encounter Plan of Treatment Not on filedocumented as of this encounter Visit Diagnoses Diagnosis Need for desensitization to allergens - Primary documented in this encounter Care Teams Chute Man Relationship Specialty Start Date End Date Tiffany Gonzalez APRN, DNP PCP - General 01/16/00 02/03/16 [address] [id number] documented as of this encounter
--- OUTSIDE RECORDS SUMMARY | 2021-12-28 14:18 | XMS_ITS | Encounter Summary ---
:1965 Author Organization [facility] Address [address] [place] [address] Care Team Providers Name Role Phone Tiffany Gonzalez APRN, GAIL Primary Care Provider [phone] Reason for Visit Reason Comments SLEEP,DISTURBANCE father Feb.21 Encounter Details Date Type Department Care Team Description 03/03/2007 Office Visit [facility] Lisa, Sleep Disturbance (Primary D x); [address] Tiffany Still APRN, Depressive Disorder, not Els ewhere Classified; [place] [address] [facility] PMDD (Premenstrual Dysphoric Disorder) [phone] [address] [place], [place] [id number] (Wo rk) Social History Tobacco Use Types Packs/Day Years Used Date Smoking Tobacco: Former Alcohol Use Standard Drinks/Week Comments Yes 0 (1 standard drink = 0.6 oz pure alcoho l) rarely Sex Assigned at Date Recorded Not on file documented as of this encounter Last Filed Vital Signs Vital Sign Reading Time Taken Comments Blood Pressure 126/70 03/03/2007 8:53 AM RETAIL BUSINESS ANALYST Pulse 76 03/03/2007 8:53 AM RETAIL BUSINESS ANALYST Temperature - - Respiratory Rate - - Oxygen Saturation - - Inhaled Oxygen Concentration - - Weight 106.6 kg (235 lb) 03/03/2007 8:53 AM RETAIL BUSINESS ANALYST Height - - Body Mass Index 36.26 2006 1:20 PM RETAIL BUSINESS ANALYST documented in this encounter Progress Notes Tiffany Gonzalez - 03/03/2007 9:22 AM CST S: Stephanie Norman is here for follow-up of depression, which was diagnosed 1 year(s) ago. She has PMDD as well. She is taking Celexa for this. She is not being treated with psychotherapy. Since the last clinic visit, the patient states symptoms have Worsened. She believes it's directly related to of her father who she sat with in the hospital for 3wks.Work was very supportive and let her take sick time for that. She is sleep deprived, upset as she was very close to her father. Asking to increase celexa dose from 20 to 40mg daily. Also had been on trazodone in the past and felt it was helpful. Wondering if she could do that, again. O: BP 126/70 Pulse 76 Wt 235 lb (106.6 kg) Casually dressed female Affect: tearful PHQ9 form not completed for this encounter. A: Encounter Diagnoses Code Name Primary? Qualifier ??? 780.50M Sleep Disturbance Yes ??? 311 Depressive Disorder, not Elsewhere Classified ??? 625.4AA PMDD (Premenstrual Dysphoric Disorder) P: Increase celexa to 40mg daily. Discussed medication dosage, usage, goals of therapy, and side effects. May take trazodone as needed. Discussed medication dosage, usage, goals of therapy, and side effects. To give me update in one month. IL BUSINESS ANALYST documented in this encounter Plan of Treatment Not on filedocumented as of this encounter Visit Diagnoses Diagnosis Sleep disturbance - Primary Sleep disturbance, unspecified Depressive disorder, not elsewhere class ified PMDD (premenstrual dysphoric disorder) Premenstrual tension syndromes documented in this encounter Care Teams Circular Tank Cooper Relationship Specialty Start Date End Date Tiffany Gonzalez, TRUCK BODY BUILDER, DNP PCP - General 01/16/00 02/03/16 [address] [id number] documented as of this encounter
--- OUTSIDE RECORDS SUMMARY | 2021-12-28 14:18 | XMS_ITS | Encounter Summary ---
:1965 Author Organization [employer] Address [address] [place] [address] Care Team Providers Name Role Phone Tiffany Gonzalez APRN, DNP Primary Care Provider [phone] Reason for Visit Reason Comments ALLERGY SHOT Encounter Details Date Type Department Care Team Description 12/10/2006 Office Visit [facility] 401 Need for Desensitization to Allergy Clinic Allergens (Primary Dx) [address] [place] [address] Social History Tobacco Use Types Packs/Day Years Used Date Smoking Tobacco: Former Alcohol Use Standard Drinks/Week Comments Yes 0 (1 standard drink = 0.6 oz pure alcoho l) rarely Sex Assigned at Date Recorded Not on file documented as of this encounter Progress Notes Aysha Taylor - 12/10/2006 2:45 PM CDT S: Stephanie Norman here for [...] full documentation of allergy shot(s) given today Aysha Taylor RN 2:45 PM documented in this encounter Plan of Treatment Not on filedocumented as of this encounter Visit Diagnoses Diagnosis Need for desensitization to allergens - Primary documented in this encounter Care Teams Career Based Intervention Coordinator Relationship Specialty Start Date End Date Tiffany Gonzalez APRN, DNP PCP - General 01/16/00 02/03/16 [address] [id number] documented as of this encounter
--- OUTSIDE RECORDS SUMMARY | 2021-12-28 14:18 | XMS_ITS | Encounter Summary ---
:1965 Author Organization [employer] Address [address] [place] [address] Care Team Providers Name Role Phone Tiffany Gonzalez APRN, DNP Primary Care Provider Reason for Visit Reason Onset Date Comments FYI 07/12/2006 Encounter Details Date Type Department Care Team Description 07/12/2006 Telephone [facility] Tiffany Gonzalez, FYI [address] [place] [address] [address] [facility] [phone] [place] [id number] (Wo rk) Social History Tobacco Use Types Packs/Day Years Used Date Smoking Tobacco: Former Alcohol Use Standard Drinks/Week Comments Yes 0 (1 standard drink = 0.6 oz pure alcoho l) rarely Sex Assigned at Date Recorded Not on file documented as of this encounter Nursing Notes Karla Burrell - 07/12/2006 10:35 AM CDT Patient states Obey was going to help get her an appt. With Sanchez Mendez in next few days. Patient called back with her cell. Number to be reached at. Tiburcio Alaniz - 07/12/2006 10:24 AM CDT Pt would like a call back in regards to an appt with Lindsey Mendez on her CELL phone [phone] documented in this encounter Plan of Treatment Not on filedocumented as of this encounter Visit Diagnoses Not on filedocumented in this encounter Care Teams Telephone Operator Relationship Specialty Start Date End Date Tiffany Gonzalez APRN, DNP PCP - General 01/16/00 02/03/16 [address] [id number] documented as of this encounter
--- OUTSIDE RECORDS SUMMARY | 2021-12-28 14:18 | XMS_ITS | Encounter Summary ---
:1965 Author Organization [facility] Address [address] [place] [address] Care Team Providers Name Role Phone Tiffany Gonzalez APRN, DNP Primary Care Provider [phone] Reason for Visit Reason Comments ALLERGY SHOT Encounter Details Date Type Department Care Team Description 11/11/2006 Office Visit [facility] 401 Need for Desensitization to Allergy Clinic Allergens (Primary Dx) [address] [place] [address] Social History Tobacco Use Types Packs/Day Years Used Date Smoking Tobacco: Former Alcohol Use Standard Drinks/Week Comments Yes 0 (1 standard drink = 0.6 oz pure alcoho l) rarely Sex Assigned at Date Recorded Not on file documented as of this encounter Progress Notes Celsa Meredith - 11/11/2006 2:24 PM CDT S: Stephanie Norman here for [...] allergy shot(s) given today Celsa Meredith RN 2:10 PM documented in this encounter Plan of Treatment Not on filedocumented as of this encounter Visit Diagnoses Diagnosis Need for desensitization to allergens - Primary documented in this encounter Care Teams Senior Technologist Relationship Specialty Start Date End Date Tiffany Gonzalez APRN, DNP PCP - General 01/16/00 02/03/16 [address] [place] [id number] documented as of this encounter
--- OUTSIDE RECORDS SUMMARY | 2021-12-28 14:18 | XMS_ITS | Encounter Summary ---
:1965 Author Organization [facility] Address [address] [place] [address] Care Team Providers Name Role Phone Tiffany Gonzalez APRN, GAIL Primary Care Provider Encounter Details Date Type Department Care Team Description 07/26/2006 Orders Only [facility] Mammogram, Family History of Malignant Neoplasm of Breast; [facility] II Other Screening Mammogram [address] [place], [place] [address] Social History Tobacco Use Types Packs/Day Years Used Date Smoking Tobacco: Former Alcohol Use Standard Drinks/Week Comments Yes 0 (1 standard drink = 0.6 oz pure alcoho l) rarely Sex Assigned at Date Recorded Not on file documented as of this encounter Procedure Notes Benny Barbosa - 07/26/2006 12:00 AM CDTAssociated Order(s): MAMMOGRAM, SCREENING EXAMINATION: BILATERAL MAMMOGRAM, 07/26/06: Exam was reviewed with computer aided detection (CAD) system for a second read. ACR BIRADS CATEGORY 1 - NEGATIVE MAMMOGRAM. COMPARISON: 06/30/04. FINDINGS: The mammogram is unchanged from the prior study. No evidence of malignancy. Jeanette Baker MD A cc: Radiology Tiffany Gonzalez NP documented in this encounter Plan of Treatment Not on filedocumented as of this encounter Procedures Procedure Name Priority Date/Time Associated Diagnosis Comme nts SCREENING MAMMOGRAPHY Routine 07/26/2006 Family History of R esults for this BILATERAL Malignant Neoplasm of proced ure are in the Breast results section. Other Screening Mammogram documented in this encounter Results BILATERAL SCREEN (07/26/2006) Anatomical Region Laterality Modality Breast Other Transcriptions Samuel EasonBenny - 07/26/2006 12:00 AM C DT EXAMINATION: BILATERAL MAMMOGRAM, 07/26/06: Exam was reviewed with computer aided d etection (CAD) system for a second read. ACR BIRADS CATEGORY 1 - NEGATIVE MAMMOG BLANCO. COMPARISON: 06/30/04. FINDINGS: The mammogram is unchanged fr om the prior study. No evidence of malignancy. Jeanette Baker MD A cc: Radiology Tiffany Gonzalez NP Tiffany Gonzalez APRN, DNP RAD_BI documented in this encounter Visit Diagnoses Diagnosis Family history of malignant neoplasm of breast Other screening mammogram documented in this encounter Care Teams Carbonation Tester Relationship Specialty Start Date End Date Tiffany Gonzalez APRN, DNP PCP - General 01/16/00 02/03/16 [address] [place] [id number] documented as of this encounter
--- OUTSIDE RECORDS SUMMARY | 2021-12-28 14:18 | XMS_ITS | Encounter Summary ---
:1965 Author Organization [employer] [facility] Address [address] [place] [address] Care Team Providers Name Role Phone Tiffany Gonzalez APRN, DNP Primary Care Provider [phone] Reason for Visit Reason Comments ALLERGY SHOT Encounter Details Date Type Department Care Team Description 10/15/2006 [facility] Visit [facility] 401 Need for Desensitization to Allergy Clinic Allergens (Primary Dx) [address] [place] [address] Social History Tobacco Use Types Packs/Day Years Used Date Smoking Tobacco: Former Alcohol Use Standard Drinks/Week Comments Yes 0 (1 standard drink = 0.6 oz pure alcoho l) rarely Sex Assigned at Date Recorded Not on file documented as of this encounter Progress Notes Celsa Meredith - 10/15/2006 3:38 PM CDT S: Stephanie Norman here for [...] allergy shot(s) given today Celsa Meredith RN 3:25 PM documented in this encounter Plan of Treatment Not on filedocumented as of this encounter Visit Diagnoses Diagnosis Need for desensitization to allergens - Primary documented in this encounter Care Teams Paratransit Operator Relationship Specialty Start Date End Date Tiffany Gonzalez APRN, DNP PCP - General 01/16/00 02/03/16 [address] [place] [id number] documented as of this encounter
--- OUTSIDE RECORDS SUMMARY | 2021-12-28 14:19 | XMS_ITS | Encounter Summary ---
:1965 Author Organization [facility] Address [address] [place] [address] Care Team Providers Name Role Phone Tiffany Gonzalez APRN, DNP Primary Care Provider [phone] Reason for Visit Reason Comments ALLERGY SHOT Encounter Details Date Type Department Care Team Description 11/24/2005 Office Visit [facility] 401 DESE NSITIZATION TO ALLERGENS Allergy Clinic (Primary Dx) [address] [facility] [place] [address] Social History Tobacco Use Types Packs/Day Years Used Date Smoking Tobacco: Every Day Comments: 1pak/week Alcohol Use Standard Drinks/Week Comments Yes 0 (1 standard drink = 0.6 oz pure alcoho l) rarely Sex Assigned at Date Recorded Not on file documented as of this encounter Progress Notes 11/24/2005 1:15 PM CDT S: Stephanie Norman here for [...] allergy shot(s) given today Celsa Meredith RN 1:05 PM documented in this encounter Plan of Treatment Not on filedocumented as of this encounter Visit Diagnoses Diagnosis Need for desensitization to allergens - Primary documented in this encounter Care Teams Band Saw Filer Relationship Specialty Start Date End Date Tiffany Gonzalez, GUEST RELATIONS MANAGER, DNP PCP - General 01/16/00 02/03/16 [address] [place] [id number] documented as of this encounter
--- OUTSIDE RECORDS SUMMARY | 2021-12-28 14:19 | XMS_ITS | Encounter Summary ---
:1965 Author Organization [facility] Address [address] [place] [address] Care Team Providers Name Role Phone Tiffany Gonzalez APRN, DNP Primary Care Provider [phone] Reason for Visit Reason Comments ALLERGY SHOT Encounter Details Date Type Department Care Team Description 12/30/2005 [facility] Visit [facility] 401 Need for Desensitization to Allergy Clinic Allergens (Primary Dx) [address] [place] [address] Social History Tobacco Use Types Packs/Day Years Used Date Smoking Tobacco: Every Day Comments: 1pak/week Alcohol Use Standard Drinks/Week Comments Yes 0 (1 standard drink = 0.6 oz pure alcoho l) rarely Sex Assigned at Date Recorded Not on file documented as of this encounter Progress Notes 12/30/2005 1:10 PM CDT S: Stephanie Barillas Emerson here [...] allergy shot(s) given today Aysha Taylor RN 1:14 PM documented in this encounter Plan of Treatment Not on filedocumented as of this encounter Visit Diagnoses Diagnosis Need for desensitization to allergens - Primary documented in this encounter Care Teams Acoustic Intelligence Specialist Relationship Specialty Start Date End Date Tiffany Gonzalez, MECHANIC FOREMAN, DNP PCP - General 01/16/00 02/03/16 [address] [place] [id number] documented as of this encounter
--- OUTSIDE RECORDS SUMMARY | 2021-12-28 14:19 | XMS_ITS | Encounter Summary ---
:1965 Author Organization [facility] Address [address] [place] [address] Care Team Providers Name Role Phone Tiffany Gonzalez APRN, GAIL Primary Care Provider [phone] Reason for Visit Reason Comments ALLERGY SHOT Encounter Details Date Type Department Care Team Description 09/15/2005 Office Visit [facility] 401 DESE NSITIZATION TO ALLERGENS Allergy Clinic [address] [facility] [place] [address] Social History Tobacco Use Types Packs/Day Years Used Date Smoking Tobacco: Every Day Comments: 1pak/week Alcohol Use Standard Drinks/Week Comments Yes 0 (1 standard drink = 0.6 oz pure alcoho l) rarely Sex Assigned at Date Recorded Not on file documented as of this encounter Progress Notes 09/15/2005 1:10 PM CDT S: Stephanie Barillas Emerson [...] allergy shot given today Ruthann Bull RN 1:54 PM documented in this encounter Plan of Treatment Not on filedocumented as of this encounter Visit Diagnoses Diagnosis Need for desensitization to allergens documented in this encounter Care Teams Director Global Sales Relationship Specialty Start Date End Date Tiffany Gonzalez APRN, DNP PCP - General 01/16/00 02/03/16 [address] [place] [id number] documented as of this encounter
--- OUTSIDE RECORDS SUMMARY | 2021-12-28 14:19 | XMS_ITS | Encounter Summary ---
:1965 Author Organization [facility] Address [address] [place] [address] Care Team Providers Name Role Phone Tiffany Gonzalez APRN, GAIL Primary Care Provider [phone] Reason for Visit Reason Comments ALLERGY SHOT Encounter Details Date Type Department Care Team Description 09/09/2005 Office Visit [facility] 401 DESE NSITIZATION TO ALLERGENS Allergy Clinic [address] [place] [address] Social History Tobacco Use Types Packs/Day Years Used Date Smoking Tobacco: Every Day Comments: 1pak/week Alcohol Use Standard Drinks/Week Comments Yes 0 (1 standard drink = 0.6 oz pure alcoho l) rarely Sex Assigned at Date Recorded Not on file documented as of this encounter Nursing Notes 09/09/2005 3:50 PM CDT >> ANIKET LUDWIG 09/09/2005 4:15 pm S: Stephanie Norman here for allergy injection(s) [...] full documentation of allergy shot(s) given today Aniket Ludwig RN 3:45 PM documented in this encounter Plan of Treatment Not on filedocumented as of this encounter Visit Diagnoses Diagnosis Need for desensitization to allergens documented in this encounter Care Teams Financial Processing Clerk Relationship Specialty Start Date End Date Tiffany Gonzalez APRN, DNP PCP - General 01/16/00 02/03/16 [address] [place] [id number] documented as of this encounter
--- OUTSIDE RECORDS SUMMARY | 2021-12-28 14:19 | XMS_ITS | Encounter Summary ---
:1965 Author Organization [facility] Address [address] [place] [address] Care Team Providers Name Role Phone Tiffany Gonzalez APRN, GAIL Primary Care Provider [phone] Reason for Visit Reason Comments ALLERGY SHOT Encounter Details Date Type Department Care Team Description 04/15/2006 Office Visit [facility] 401 Need for Desensitization to Allergy Clinic Allergens (Primary Dx) [address] [place] [address] Social History Tobacco Use Types Packs/Day Years Used Date Smoking Tobacco: Former Alcohol Use Standard Drinks/Week Comments Yes 0 (1 standard drink = 0.6 oz pure alcoho l) rarely Sex Assigned at Date Recorded Not on file documented as of this encounter Progress Notes Nelly Ludwig - 04/15/2006 1:12 PM CST S: Stephanie Norman here for allergy injection(s) [...] allergy shot(s) given today Nelly Ludwig RN 1:10 PM BREAKER documented in this encounter Plan of Treatment Not on filedocumented as of this encounter Visit Diagnoses Diagnosis Need for desensitization to allergens - Primary documented in this encounter Care Teams Telegraph Lineman Relationship Specialty Start Date End Date Tiffany Gonzalez APRN, DNP PCP - General 01/16/00 02/03/16 [address] [id number] documented as of this encounter
--- OUTSIDE RECORDS SUMMARY | 2021-12-28 14:19 | XMS_ITS | Encounter Summary ---
:1965 Author Organization [employer] Address [address] [place] [address] Care Team Providers Name Role Phone Tiffany Gonzalez APRN, DNP Primary Care Provider [phone] Reason for Visit Reason Comments ALLERGY SHOT Encounter Details Date Type Department Care Team Description 12/01/2005 Office Visit [facility] 401 DESE NSITIZATION TO ALLERGENS Allergy Clinic (Primary Dx) [address] [place] [address] Social History Tobacco Use Types Packs/Day Years Used Date Smoking Tobacco: Every Day Comments: 1pak/week Alcohol Use Standard Drinks/Week Comments Yes 0 (1 standard drink = 0.6 oz pure alcoho l) rarely Sex Assigned at Date Recorded Not on file documented as of this encounter Progress Notes 12/01/2005 1:10 PM CDT S: Stephanie Norman here for [...] allergy shot(s) given today Celsa Meredith RN 1:10 PM documented in this encounter Plan of Treatment Not on filedocumented as of this encounter Visit Diagnoses Diagnosis Need for desensitization to allergens - Primary documented in this encounter Care Teams It Support Specialist Relationship Specialty Start Date End Date Tiffany Gonzalez, TIRE SPOTTER, DNP PCP - General 01/16/00 02/03/16 [address] [place] [id number] documented as of this encounter
--- OUTSIDE RECORDS SUMMARY | 2021-12-28 14:19 | XMS_ITS | Encounter Summary ---
:1965 Author Organization [employer] Address [address] [place] [address] Care Team Providers Name Role Phone Tiffany Gonzalez APRN, DNP Primary Care Provider Reason for Visit Reason Comments ALLERGY SHOT Encounter Details Date Type Department Care Team Description 03/26/2006 Office Visit [facility] 401 Need for Desensitization to Allergy Clinic Allergens (Primary Dx) [address] [place] [address] Social History Tobacco Use Types Packs/Day Years Used Date Smoking Tobacco: Former Alcohol Use Standard Drinks/Week Comments Yes 0 (1 standard drink = 0.6 oz pure alcoho l) rarely Sex Assigned at Date Recorded Not on file documented as of this encounter Progress Notes Celsa Meredith - 03/26/2006 3:33 PM ELECTRONIC VIDEO GAMES SERVICER S: Stephanie Norman here for allergy injection(s) [...] given today Celsa Meredith RN 3:25 PM TRONIC VIDEO GAMES SERVICER documented in this encounter Plan of Treatment Not on filedocumented as of this encounter Visit Diagnoses Diagnosis Need for desensitization to allergens - Primary documented in this encounter Care Teams Stores Laborer Relationship Specialty Start Date End Date Tiffany Gonzalez APRN, DNP PCP - General 01/16/00 02/03/16 [address] [place] [id number] documented as of this encounter
--- OUTSIDE RECORDS SUMMARY | 2021-12-28 14:19 | XMS_ITS | Encounter Summary ---
:1965 Author Organization [employer] Address [address] [place] [address] Care Team Providers Name Role Phone Tiffany Gonzalez APRN, GAIL Primary Care Provider [phone] Reason for Visit Reason Comments ALLERGY SHOT Encounter Details Date Type Department Care Team Description 09/29/2005 Office Visit [facility] 401 DESE NSITIZATION TO ALLERGENS Allergy Clinic [address] [facility] [place] [address] Social History Tobacco Use Types Packs/Day Years Used Date Smoking Tobacco: Every Day Comments: 1pak/week Alcohol Use Standard Drinks/Week Comments Yes 0 (1 standard drink = 0.6 oz pure alcoho l) rarely Sex Assigned at Date Recorded Not on file documented as of this encounter Progress Notes 09/29/2005 1:10 PM CDT S: Stephanie Norman here [...] allergens documented in this encounter Care Teams Church History Teacher Relationship Specialty Start Date End Date Tiffany Gonzalez APRN, DNP PCP - General 01/16/00 02/03/16 [address] [id number] documented as of this encounter
--- OUTSIDE RECORDS SUMMARY | 2021-12-28 14:19 | XMS_ITS | Encounter Summary ---
:1965 Author Organization [employer] Address [address] [place] [address] Care Team Providers Name Role Phone Tiffany Gonzalez APRN, DNP Primary Care Provider [phone] Reason for Visit Reason Comments ALLERGY, SHOTS Encounter Details Date Type Department Care Team Description 10/21/2005 Office Visit [facility] 401 DESE NSITIZATION TO ALLERGENS Allergy Clinic [address] [facility] [place] [address] Social History Tobacco Use Types Packs/Day Years Used Date Smoking Tobacco: Every Day Comments: 1pak/week Alcohol Use Standard Drinks/Week Comments Yes 0 (1 standard drink = 0.6 oz pure alcoho l) rarely Sex Assigned at Date Recorded Not on file documented as of this encounter Progress Notes 10/21/2005 3:50 PM CDT S: Stephanie Norman here for [...] allergy shot(s) given today Aysha Taylor RN 3:57 PM documented in this encounter Plan of Treatment Not on filedocumented as of this encounter Visit Diagnoses Diagnosis Need for desensitization to allergens documented in this encounter Care Teams Plastics Worker Relationship Specialty Start Date End Date Tiffany Gonzalez, AUGER PRESS OPERATOR, DNP PCP - General 01/16/00 02/03/16 [address] [place] [id number] documented as of this encounter
--- OUTSIDE RECORDS SUMMARY | 2021-12-28 14:19 | XMS_ITS | Encounter Summary ---
:1965 Author Organization [employer] Address [address] [place] [address] Care Team Providers Name Role Phone Tiffany Gonzalez APRN, DNP Primary Care Provider [phone] Reason for Visit Reason Comments ALLERGY SHOT Encounter Details Date Type Department Care Team Description 12/08/2005 Office Visit [facility] 401 DESE NSITIZATION TO ALLERGENS Allergy Clinic (Primary Dx) [address] [facility] [place] [address] Social History Tobacco Use Types Packs/Day Years Used Date Smoking Tobacco: Every Day Comments: 1pak/week Alcohol Use Standard Drinks/Week Comments Yes 0 (1 standard drink = 0.6 oz pure alcoho l) rarely Sex Assigned at Date Recorded Not on file documented as of this encounter Progress Notes 12/08/2005 1:00 PM CDT S: Stephanie Norman here for allergy injection O: The following [...] allergy shot given today Ruthann Bull RN 1:02 PM documented in this encounter Plan of Treatment Not on filedocumented as of this encounter Visit Diagnoses Diagnosis Need for desensitization to allergens - Primary documented in this encounter Care Teams Retail Wireless Associate Relationship Specialty Start Date End Date Tiffany Gonzalez, EMPLOYEE SERVICE OFFICER, DNP PCP - General 01/16/00 02/03/16 [address] [address] documented as of this encounter
--- OUTSIDE RECORDS SUMMARY | 2021-12-28 14:19 | XMS_ITS | Encounter Summary ---
:1965 Author Organization [facility] Address [address] [place] [address] Care Team Providers Name Role Phone Tiffany Gonzalez APRN, DNP Primary Care Provider [phone] Encounter Details Date Type Department Care Team Description 01/19/2006 Orders Only External to [facility] Unknown, [facility] [address] [place] [address] (Wo rk) Social History Tobacco Use Types Packs/Day Years Used Date Smoking Tobacco: Former Alcohol Use Standard Drinks/Week Comments Yes 0 (1 standard drink = 0.6 oz pure alcoho l) rarely Sex Assigned at Date Recorded Not on file documented as of this encounter Procedure Notes Pulmonary, Provider - 01/19/2006 12:00 AM CDTAssociated Order(s): SPIROMETRY documented in this encounter Plan of Treatment Not on filedocumented as of this encounter Procedures Procedure Name Priority Date/Time Associated Diagnosis Comme nts SPIROMETRY 01/19/2006 12:00 AM Results for this CDT procedure are i n the results section . documented in this encounter Results SPIROMETRY (01/19/2006 12:00 AM CDT) Narrative 01/19/2006 12:00 AM CDT This result has an attachment that is no t available. Ordered by an unspecified provider. Transcriptions Pulmonary, Provider - 01/19/2006 12:00 A M CDT Physician Unknown DUMMY/OTHER/AR documented in this encounter Visit Diagnoses Not on filedocumented in this encounter Care Teams Fruit Harvest Worker Relationship Specialty Start Date End Date Tiffany Gonzalez APRN, DNP PCP - General 01/16/00 02/03/16 [address] [place] [id number] documented as of this encounter
--- OUTSIDE RECORDS SUMMARY | 2021-12-28 14:19 | XMS_ITS | Encounter Summary ---
:1965 Author Organization [employer] Address [address] [place] [address] Care Team Providers Name Role Phone Marcelo Gonzalez APRN, DNP Primary Care Provider [phone] Reason for Visit Reason Onset Date Comments Refill 07/06/2006 Encounter Details Date Type Department Care Team Description 07/06/2006 Refill [facility] Marcelo Gonzalez, Refill [address] Gamaliel peter APRN, DNP [place], [place] [address] [address] [facility] [phone] [place], [place] [id number] (Wo rk) Social History Tobacco Use Types Packs/Day Years Used Date Smoking Tobacco: Former Alcohol Use Standard Drinks/Week Comments Yes 0 (1 standard drink = 0.6 oz pure alcoho l) rarely Sex Assigned at Date Recorded Not on file documented as of this encounter Nursing Notes María Barboza - 07/06/2006 12:17 PM CDTApproved Prescriptions: Disp Refills ZANTAC 150 MG OR TABS 180 3 Si po bid Authorizing Provider: MARCELO GONZALEZ Ordering User: MARÍA BARBOZA Astrid Zimmer - 07/06/2006 12:07 PM CDT Pending Prescriptions: Disp Refills ZANTAC 150 MG OR TABS 180 3 Si po bid Fay Gardner - 07/06/2006 9:40 AM CDT last refill was on 04-13-06 for the quantity of 180 documented in this encounter Plan of Treatment Not on filedocumented as of this encounter Visit Diagnoses Diagnosis Reflux esophagitis documented in this encounter Care Teams Loop Sewer Relationship Specialty Start Date End Date Marcelo Gonzalez APRN, DNP PCP - General 01/16/00 02/03/16 [address] [id number] documented as of this encounter
--- OUTSIDE RECORDS SUMMARY | 2021-12-28 14:19 | XMS_ITS | Encounter Summary ---
:1965 Author Organization [employer] Address [address] [place] [address] Care Team Providers Name Role Phone Tiffany Gonzalez APRN, DNP Primary Care Provider Reason for Visit Reason Comments ALLERGY SHOT Encounter Details Date Type Department Care Team Description 06/29/2006 Office Visit [facility] 401 Need for Desensitization to Allergy Clinic Allergens (Primary Dx) [address] [place] [address] Social History Tobacco Use Types Packs/Day Years Used Date Smoking Tobacco: Former Alcohol Use Standard Drinks/Week Comments Yes 0 (1 standard drink = 0.6 oz pure alcoho l) rarely Sex Assigned at Date Recorded Not on file documented as of this encounter Progress Notes Celsa Meredith - 06/29/2006 1:33 PM CDT S: Stephanie Norman here for [...] allergy shot(s) given today Celsa Meredith RN 1:25 PM documented in this encounter Plan of Treatment Not on filedocumented as of this encounter Visit Diagnoses Diagnosis Need for desensitization to allergens - Primary documented in this encounter Care Teams Director Life Sciences Relationship Specialty Start Date End Date Tiffany Gonzalez APRN, DNP PCP - General 01/16/00 02/03/16 [address] [place] [id number] documented as of this encounter
--- OUTSIDE RECORDS SUMMARY | 2021-12-28 14:19 | XMS_ITS | Encounter Summary ---
:1965 Author Organization [email or web address] Address [address] [place] [address] Care Team Providers Name Role Phone Tiffany Gonzalez APRN, DNP Primary Care Provider [phone] Encounter Details Date Type Department Care Team Description 06/29/2006 Notes/Orders [facility] Tejinder Fraire Need f or Desensitization 401 [facility] MD to Allergens (Primary Dx) [address] [place] [address] [place], [place] [phone] Social History Tobacco Use Types Packs/Day Years Used Date Smoking Tobacco: Former Alcohol Use Standard Drinks/Week Comments Yes 0 (1 standard drink = 0.6 oz pure alcoho l) rarely Sex Assigned at Date Recorded Not on file documented as of this encounter Nursing Notes Aysha Taylor - 06/30/2006 7:51 AM CDT Morelia Taylor RN AE-C Celsa Meredith - 06/29/2006 2:18 PM CDT [facility] [place] allergy extract-expires 07-06-06 & pt will be in for next IMT approx. 07-20-06. Will have Dr. Fraire review for refil. Celsa Meredith RN documented in this encounter Plan of Treatment Not on filedocumented as of this encounter Visit Diagnoses Diagnosis Need for desensitization to allergens - Primary documented in this encounter Care Teams Peritoneal Dialysis Registered Nurse Relationship Specialty Start Date End Date Tiffany Gonzalez APRN, DNP PCP - General 01/16/00 02/03/16 [address] [id number] documented as of this encounter
--- OUTSIDE RECORDS SUMMARY | 2021-12-28 14:19 | XMS_ITS | Encounter Summary ---
:1965 Author Organization [email or web address] Address [address] [place] [address] Care Team Providers Name Role Phone Tiffany Gonzalez APRN, GAIL Primary Care Provider [phone] Reason for Visit Reason Comments ALLERGY SHOT Encounter Details Date Type Department Care Team Description 09/22/2005 Office Visit [facility] 401 DESE NSITIZATION TO ALLERGENS Allergy Clinic [address] [facility] [place] [address] Social History Tobacco Use Types Packs/Day Years Used Date Smoking Tobacco: Every Day Comments: 1pak/week Alcohol Use Standard Drinks/Week Comments Yes 0 (1 standard drink = 0.6 oz pure alcoho l) rarely Sex Assigned at Date Recorded Not on file documented as of this encounter Progress Notes 09/22/2005 1:10 PM CDT S: Stephanie Norman here [...] allergens documented in this encounter Care Teams Chip Applying Machine Tender Relationship Specialty Start Date End Date Tiffany Gonzalez APRN, DNP PCP - General 01/16/00 02/03/16 [address] [id number] documented as of this encounter
--- OUTSIDE RECORDS SUMMARY | 2021-12-28 14:19 | XMS_ITS | Encounter Summary ---
:1965 Author Organization [employer] Address [address] [place] [address] Care Team Providers Name Role Phone Tiffany Gonzalez APRN, DNP Primary Care Provider [phone] Reason for Visit Reason Comments ALLERGY SHOT Encounter Details Date Type Department Care Team Description 11/17/2005 Office Visit [facility]ty [facility] 401 DESE NSITIZATION TO ALLERGENS Allergy Clinic (Primary Dx) [address] [facility] [place] [address] Social History Tobacco Use Types Packs/Day Years Used Date Smoking Tobacco: Every Day Comments: 1pak/week Alcohol Use Standard Drinks/Week Comments Yes 0 (1 standard drink = 0.6 oz pure alcoho l) rarely Sex Assigned at Date Recorded Not on file documented as of this encounter Progress Notes 11/17/2005 1:00 PM CDT S: Stephanie Norman here [...] allergy shot(s) given today Celsa Meredith RN 1:00 PM documented in this encounter Plan of Treatment Not on filedocumented as of this encounter Visit Diagnoses Diagnosis Need for desensitization to allergens - Primary documented in this encounter Care Teams Inspector Sheet Metal Parts Relationship Specialty Start Date End Date Tiffany Gonzalez, AUTOMOTIVE SALES REPRESENTATIVE, DNP PCP - General 01/16/00 02/03/16 [address] [id number] documented as of this encounter
--- OUTSIDE RECORDS SUMMARY | 2021-12-28 14:19 | XMS_ITS | Encounter Summary ---
:1965 Author Organization [employer] Address [address] [place] [address] Care Team Providers Name Role Phone Tiffany Gonzalez APRN, DNP Primary Care Provider [phone] Reason for Visit Reason Comments ALLERGY, SHOTS Encounter Details Date Type Department Care Team Description 01/12/2006 [facility] 401 Need for Desensitization to Allergy Clinic Allergens (Primary Dx) [address] [place] [address] Social History Tobacco Use Types Packs/Day Years Used Date Smoking Tobacco: Every Day Comments: 1pak/week Alcohol Use Standard Drinks/Week Comments Yes 0 (1 standard drink = 0.6 oz pure alcoho l) rarely Sex Assigned at Date Recorded Not on file documented as of this encounter Progress Notes 01/12/2006 3:35 PM CDT S: Stephanie Norman here for [...] allergy shot(s) given today Nelly Ludwig RN 3:25 PM documented in this encounter Plan of Treatment Not on filedocumented as of this encounter Visit Diagnoses Diagnosis Need for desensitization to allergens - Primary documented in this encounter Care Teams Precision Crop Manager Relationship Specialty Start Date End Date Tiffany Gonzalez, ETL APPLICATION DEVELOPER, DNP PCP - General 01/16/00 02/03/16 [address] [id number] documented as of this encounter
--- OUTSIDE RECORDS SUMMARY | 2021-12-28 14:19 | XMS_ITS | Encounter Summary ---
:1965 Author Organization [facility] Address [address] [place] [address] Care Team Providers Name Role Phone Tiffany Gonzalez APRN, DNP Primary Care Provider [phone] Reason for Visit Reason Comments Pain bottom of lf foot--? inf. Encounter Details Date Type Department Care Team Description 2006 Office Visit [facility] Amita Castaneda V, Abscess of Foot (Primary Dx) ; [address] [place] Need for Vaccine for TD (Tetanus-Diphthe shy) [place] [address] [phone] [place] [address] Social History Tobacco Use Types Packs/Day Years Used Date Smoking Tobacco: Former Alcohol Use Standard Drinks/Week Comments Yes 0 (1 standard drink = 0.6 oz pure alcoho l) rarely Sex Assigned at Date Recorded Not on file documented as of this encounter Last Filed Vital Signs Vital Sign Reading Time Taken Comments Blood Pressure 116/84 2006 1:20 PM KNOBBER Pulse - - Temperature 36.8 ??C (98.2 ??F) 2006 1:20 PM KNOBBER Respiratory Rate - - Oxygen Saturation - - Inhaled Oxygen Concentration - - Weight 106.6 kg (235 lb) 2006 1:20 PM KNOBBER Height 171.5 cm (5' 7.5) 2006 1:20 PM KNOBBER Body Mass Index 36.26 2006 1:20 PM KNOBBER documented in this encounter Progress Notes Amita Castaneda V - 03/12/2006 11:26 AM KNOBBER Quick Note: Usual skin bacteria on culture continue clindamycin. Amita Castaneda MD BER documented in this encounter Consult Notes Amita Castaneda V - 03/15/2006 3:03 PM KNOBBER Ms. Norman is a 40-year-old woman who is here with left foot pain. She thinks she may have had a sliver in her foot from walking on a deck a few weeks ago. She tried cleaning it off really well, then tried digging in with a needle. She did not find anything, however, the pain increased. Last PM the wound opened up and pus came out. She has had no fevers or chills. She has a history of polycystic kidney disease. Is not diabetic. On exam today, blood pressure is 116/84. Temperature is 98.2. On the sole of the left foot there is an approximately 3 centimeter, well demarcated cystic pus lesion. There is some spontaneous pus draining. With her consent the area was cleanse with Betadine and alcohol. Culture was taken. Some Lidocaine was also applied, injected although this was difficult through the plantar surface of the foot, then an 18 gauge needle was used to unroof it. Pus was drained, and magnifying glass was used to try and see if there was any foreign body. I could not detect any sliver or foreign body present. ASSESSMENT PLAN: 1. Abscess wound left foot. Seems fairly superficial. Will send for culture. I would treat with Clindamycin 300 mg q.i.d. for 7 days since she is allergic to Penicillin. Would change antibiotic coverage if culture shows nonsensitive organism. Would have her keep the foot elevated as much as possible. This should be drying up and resolving. If it's becoming more swollen, red or painful then she needs to be seen again. She will also get a booster tetanus shot today. P cc: BER documented in this encounter Nursing Notes 2006 1:20 PM CST >> Tiffanie Kee LPN Wed 2006 2:17 PM TD given in office today per verbal order of Dr. Castaneda. Tiffanie Kee LPN documented in this encounter Plan of Treatment Not on filedocumented as of this encounter Procedures Procedure Name Priority Date/Time Associated Diagnosis Comme nts WOUND CULTURE ONLY Routine 2006 2:39 PM Abscess of Foot Results for this / SUPERFIC KNOBBER procedure are i n the results section. documented in this encounter Results WOUND CULTURE ONLY / SUPERFIC (2006 2:39 PM KNOBBER) Component Value Ref Test Analysis Performed At [facility] gist Range Method Time Signature Specimen Foot Abscess [facility] Description Swab Special Unspecified [facility] Requests Culture Moderate Skin [facility] Carmen Report Status Final [id number] [facility] E[facility] Specimen Anatomical Collection Method Collection Time Receive d Time (Source) Location / / Volume Laterality 2006 2:39 PM 6 2:40 KNOBBER PM KNOBBER Amita Adams MD LAB_2 Performing Organization Address City/State/ZIP Code Phon e Number [facility] [phone] [facility] [address] [id number] documented in this encounter Visit Diagnoses Diagnosis Abscess of foot - Primary Cellulitis and abscess of foot, except t oes Need for vaccine for Td (tetanus-diphthe shy) Need for prophylactic vaccination with t etanus-diphtheria (Td) documented in this encounter Care Teams Body Builder Relationship Specialty Start Date End Date Tiffany Gonzalez, TOP DYEING MACHINE LOADER, DNP PCP - General 01/16/00 02/03/16 [address] [id number] documented as of this encounter
--- OUTSIDE RECORDS SUMMARY | 2021-12-28 14:19 | XMS_ITS | Encounter Summary ---
:1965 Author Organization [facility] Address [address] [place] [address] Care Team Providers Name Role Phone Tiffany Gonzalez APRN, GAIL Primary Care Provider [phone] Reason for Visit Reason Comments ALLERGY SHOT Encounter Details Date Type Department Care Team Description 10/06/2005 Office Visit Specialty Center 401 DESE NSITIZATION TO ALLERGENS Allergy Clinic [address] [facility] [place] [address] Social History Tobacco Use Types Packs/Day Years Used Date Smoking Tobacco: Every Day Comments: 1pak/week Alcohol Use Standard Drinks/Week Comments Yes 0 (1 standard drink = 0.6 oz pure alcoho l) rarely Sex Assigned at Date Recorded Not on file documented as of this encounter Progress Notes 10/06/2005 1:10 PM CDT S: Stephanie Norman here [...] allergy shot(s) given today Celsa Meredith RN 1:15 PM documented in this encounter Plan of Treatment Not on filedocumented as of this encounter Visit Diagnoses Diagnosis Need for desensitization to allergens documented in this encounter Care Teams Electronic News Gathering Editor Relationship Specialty Start Date End Date Tiffany Gonzalez APRN, DNP PCP - General 01/16/00 02/03/16 [address] [id number] documented as of this encounter
--- OUTSIDE RECORDS SUMMARY | 2021-12-28 14:19 | XMS_ITS | Encounter Summary ---
:1965 Author Organization [facility] Address [address] [place] [address] Care Team Providers Name Role Phone Tiffany Gonzalez APRN, DNP Primary Care Provider Encounter Details Date Type Department Care Team Description 05/11/2006 Flowsheet [facility] Tejinder Fraire MD ALLERGY INJECTION [address] [place], [place] [address] [place], [place] [phone] Social History Tobacco Use Types Packs/Day Years Used Date Smoking Tobacco: Former Alcohol Use Standard Drinks/Week Comments Yes 0 (1 standard drink = 0.6 oz pure alcoho l) rarely Sex Assigned at Date Recorded Not on file documented as of this encounter Progress Notes Tejinder Fraire - 05/11/2006 12:00 AM VIDEOTAPE SALES REPRESENTATIVE OTAPE SALES REPRESENTATIVE documented in this encounter Plan of Treatment Not on filedocumented as of this encounter Visit Diagnoses Not on filedocumented in this encounter Care Teams Siebel Crm Developer Relationship Specialty Start Date End Date Tiffany Gonzalez APRN, GAIL PCP - General 01/16/00 02/03/16 [address] [id number] documented as of this encounter
--- OUTSIDE RECORDS SUMMARY | 2021-12-28 14:19 | XMS_ITS | Encounter Summary ---
:1965 Author Organization [employer] Address [address] [place] [address] Care Team Providers Name Role Phone Tiffany Gonzalez APRN, DNP Primary Care Provider Reason for Visit Reason Comments ALLERGY SHOT Encounter Details Date Type Department Care Team Description 05/11/2006 Office Visit [facility] 401 Need for Desensitization to Allergy Clinic Allergens (Primary Dx) [address] [place] [address] Social History Tobacco Use Types Packs/Day Years Used Date Smoking Tobacco: Former Alcohol Use Standard Drinks/Week Comments Yes 0 (1 standard drink = 0.6 oz pure alcoho l) rarely Sex Assigned at Date Recorded Not on file documented as of this encounter Progress Notes Celsa Meredith - 05/11/2006 11:38 AM CST S: Stephanie Barillas Emerson here for [...] allergy shot(s) given today Celsa Meredith RN 11:20 AM TECH documented in this encounter Plan of Treatment Not on filedocumented as of this encounter Visit Diagnoses Diagnosis Need for desensitization to allergens - Primary documented in this encounter Care Teams Runstitching Machine Operator Relationship Specialty Start Date End Date Tiffany Gonzalez APRN, DNP PCP - General 01/16/00 02/03/16 [address] [id number] documented as of this encounter
--- OUTSIDE RECORDS SUMMARY | 2021-12-28 14:19 | XMS_ITS | Encounter Summary ---
:1965 Author Organization [facility] Address [address] [place] [address] Care Team Providers Name Role Phone Tiffany Gonzalez APRN, GAIL Primary Care Provider [phone] Reason for Visit Reason Comments ALLERGY SHOT Encounter Details Date Type Department Care Team Description 11/10/2005 Office Visit Specialty Center 401 DESE NSITIZATION TO ALLERGENS Allergy Clinic [address] [facility] [place] [address] Social History Tobacco Use Types Packs/Day Years Used Date Smoking Tobacco: Every Day Comments: 1pak/week Alcohol Use Standard Drinks/Week Comments Yes 0 (1 standard drink = 0.6 oz pure alcoho l) rarely Sex Assigned at Date Recorded Not on file documented as of this encounter Progress Notes 11/10/2005 1:00 PM CDT S: Stephanie Norman here [...] allergens documented in this encounter Care Teams Machine Molder Relationship Specialty Start Date End Date Tiffany Gonzalez APRN, DNP PCP - General 01/16/00 02/03/16 [address] [id number] documented as of this encounter
--- OUTSIDE RECORDS SUMMARY | 2021-12-28 14:19 | XMS_ITS | Encounter Summary ---
:1965 Author Organization [facility] Address [address] [place] [address] Care Team Providers Name Role Phone Tiffany Gonzalez APRN, DNP Primary Care Provider [phone] Reason for Visit Reason Comments ALLERGY SHOT Encounter Details Date Type Department Care Team Description 12/22/2005 [facility] 401 Need for Desensitization to Allergy Clinic Allergens (Primary Dx) [address] [place] [address] Social History Tobacco Use Types Packs/Day Years Used Date Smoking Tobacco: Every Day Comments: 1pak/week Alcohol Use Standard Drinks/Week Comments Yes 0 (1 standard drink = 0.6 oz pure alcoho l) rarely Sex Assigned at Date Recorded Not on file documented as of this encounter Progress Notes 12/22/2005 1:10 PM CDT S: Stephanie Norman here [...] Primary documented in this encounter Care Teams Marketing Project Coordinator Relationship Specialty Start Date End Date Tiffany Gonzalez, DONATION SPECIALIST, DNP PCP - General 01/16/00 02/03/16 [address] [id number] documented as of this encounter
--- OUTSIDE RECORDS SUMMARY | 2021-12-28 14:19 | XMS_ITS | Encounter Summary ---
:1965 Author Organization [facility] Address [address] [place] [address] Care Team Providers Name Role Phone Tiffany Gonzalez APRN, DNP Primary Care Provider [phone] Encounter Details Date Type Department Care Team Description 09/22/2005 Correspondence None Jessica, Provider CONSENT AND RELEASE Social History Tobacco Use Types Packs/Day Years Used Date Smoking Tobacco: Every Day Comments: 1pak/week Alcohol Use Standard Drinks/Week Comments Yes 0 (1 standard drink = 0.6 oz pure alcoho l) rarely Sex Assigned at Date Recorded Not on file documented as of this encounter Progress Notes Kevyn Lopez, Provider - 09/22/2005 12:00 AM CDT documented in this encounter Plan of Treatment Not on filedocumented as of this encounter Visit Diagnoses Not on filedocumented in this encounter Care Teams Vegetable Farmworker Relationship Specialty Start Date End Date Tiffany Gonzalez APRN, GAIL PCP - General 01/16/00 02/03/16 [address] [id number] documented as of this encounter
--- OUTSIDE RECORDS SUMMARY | 2021-12-28 14:19 | XMS_ITS | Encounter Summary ---
:1965 Author Organization [facility] Address [address] [place] [address] Care Team Providers Name Role Phone Tiffany Gonzalez APRN, DNP Primary Care Provider [phone] Reason for Visit Reason Comments Follow Up Allergy / Asthma Encounter Details Date Type Department Care Team Description 01/19/2006 [facility] Visit [facility] Uvaldo Fraire MD Allergic Rhinitis, Cause Unspecified (Pr imary Dx); [address] Wheezing; [address] [place], [place] Personal History of Tobacco Use, [place] [id number] Social History Tobacco Use Types Packs/Day Years Used Date Smoking Tobacco: Former Alcohol Use Standard Drinks/Week Comments Yes 0 (1 standard drink = 0.6 oz pure alcoho l) rarely Sex Assigned at Date Recorded Not on file documented as of this encounter Last Filed Vital Signs Vital Sign Reading Time Taken Comments Blood Pressure 112/84 01/19/2006 2:15 PM CDT Pulse 76 01/19/2006 2:15 PM CDT Temperature - - Respiratory Rate - - Oxygen Saturation - - Inhaled Oxygen Concentration - - Weight 106.6 kg (235 lb) 01/19/2006 2:15 PM CDT Height - - Body Mass Index 36.26 06/25/2005 9:30 AM EVENT PRODUCER documented in this encounter Patient Instructions Patient Mmtraynxwxrl96/03/2006 2:15 PM CDT followup visit 1 year If you have any questions, please call the Allergy department at [phone] documented in this encounter Progress Notes 01/19/2006 2:15 PM CDT This office note has been dictated. documented in this encounter Consult Notes JunoTejinder - 01/19/2006 12:00 AM CDTSUBJECTIVE: She started allergy injections in July. She already feels that she has had some relief from the injections, as of three months ago. She is taking loratadine 10 mg once daily. She was taking albuterol about once per week earlier this year, in association with sports. She was on Nasonex spraying into summer, around November, off of it since. She is trying to take better care of herself, she has a 2-year-old. She quit smoking last week. No purulent drainage. No cough. Medical record review there is a phone message regarding dennys Queen as an aide to quit smoking, December 29. OBJECTIVE DATA: Blood pressure 112/84. Pulse 76. SPIROMETRY FVC 4.57 (3.79), 120%. FEV1 3.97 (3.14), 126%. Values and tracing reviewed, see spirometry shingle. PHYSICAL EXAM: She appears well. Pleasant and cooperative. Ears - TMs without fluid or erythema. Eyes - conjunctivae clear. Nose - mildly pale, mildly congested. No purulent drainage, polyps, epistaxis or crusting. Oropharynx - without erythema or drainage. Lungs - without rales, rhonchi, wheezes or rubs. Heart - regular rate and rhythm. ASSESSMENT AND PLAN: Allergic rhinitis. Follow-up wheezing. Recent cessation of smoking. On allergy injections, I would like to add that she did discuss them with her complex care nurse by history today, and she says that he had no issue with them. Same treatment plan. Follow-up visit one year. I asked that she call or return sooner if interval questions, concerns, difficulties, she stated understanding and agreement. FINAL DIAGNOSES: Allergic rhinitis. Wheezing. Recent smoking cessation. ADDENDUM: Spirometry was within normal range with FVC 4.57 (3.79), 120%. FEV1 3.97 (3.14), 126%. Values and tracing reviewed, see spirometry lia. DICTATED BUT NOT REVIEWED P cc: documented in this encounter Nursing Notes 01/19/2006 2:15 PM CDT >> NENA STEPHEN 01/19/2006 2:20 pm Stephanie Norman is here today for Allergy Department visit. Phone #: [phone]. Spirometry/Peakflow done-YES. Elementary Assistant Principal? No Accompanied by alone men's locker room attendant? Declined Nena Stephen LPN, 2:19 PM, 01/19/2006 documented in this encounter Plan of Treatment Not on filedocumented as of this encounter Procedures Procedure Name Priority Date/Time Associated Diagnosis Comme nts SPIROMETRY--SCAN 01/19/2006 Results for this procedure are in the resu lts section. documented in this encounter Visit Diagnoses Diagnosis Allergic rhinitis, cause unspecified - P rimary Wheezing Personal history of tobacco use, present ing hazards to health documented in this encounter Care Teams Payroll Services Analyst Relationship Specialty Start Date End Date Tiffany Gonzalez APRN, DNP PCP - General 01/16/00 02/03/16 [address] [id number] documented as of this encounter
--- OUTSIDE RECORDS SUMMARY | 2021-12-28 14:19 | XMS_ITS | Encounter Summary ---
:1965 Author Organization [facility] Address [address] [place] [address] Care Team Providers Name Role Phone Tiffany Gonzalez APRN, DNP Primary Care Provider Reason for Visit Reason Comments EMOTIONAL UPSET Encounter Details Date Type Department Care Team Description 07/12/2006 Office Visit [facility] Lisa, Depressive Disorder, not Els ewhere Classified (Primary Dx); [address] Tiffany Still APRN, Sleep Disturbance; [place] [address] [facility] Reflux Esophagitis [phone] [address] [place], [place] [id number] (Wo rk) Social History Tobacco Use Types Packs/Day Years Used Date Smoking Tobacco: Former Alcohol Use Standard Drinks/Week Comments Yes 0 (1 standard drink = 0.6 oz pure alcoho l) rarely Sex Assigned at Date Recorded Not on file documented as of this encounter Last Filed Vital Signs Vital Sign Reading Time Taken Comments Blood Pressure 126/80 07/12/2006 9:00 AM CDT Pulse 84 07/12/2006 9:00 AM CDT Temperature - - Respiratory Rate - - Oxygen Saturation - - Inhaled Oxygen Concentration - - Weight 105.7 kg (233 lb) 07/12/2006 9:00 AM CDT Height - - Body Mass Index 35.95 2006 1:20 PM BUDGET COUNSELOR documented in this encounter Patient Instructions Patient [id number]/26/2007 9:30 AM CDT Start med for sleep disturbance (trazodone)tonight. Start Celexa today as directed. Will be called by clinic receptionist for behavioral health appt return to work letter is written Follow up exam in 4-8 wks for med check with Tiffany Gonzalez NP Requested drug refills are approved on Zantac documented in this encounter Progress Notes Tiffany Gonzalez - 07/12/2006 9:21 AM CDT S: Stephanie Norman presents with depressed mood, loss of interest in usual activities, fatigue and decreased daily function. Symptoms have been present for 4 week(s). Now having diarrhea, trouble falling and staying asleep, bad periods. Trouble shutting my mind off. Symptoms worse last wk. Breaking down in tears at work, and has never done this before. Has been with this company 10yrs. Finding overwhelming stress at work. 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 She's snapping at people now. Feels that she was never like this before, even when she quit smoking. For at least the past two weeks these symptoms have been moderate and include: the symptoms recordedon the PHQ-9. Did not go to work today, as the thought of it makes her nauseated Past history of depression: None Family history of depression: Immediate family, including Mother and Uncle History Substance Use Topics ??? Tobacco Use: Quit Quit date: 01/11/2006 ??? Alcohol Use: Yes rarely Suicide assessment: denies any suicidal ideation O: BP 126/80 Pulse 84 Wt 233 lbs (105.688 kg) Affect: tearful Casually dressed PHQ-9 was administered today with a total score of 12 A: Diagnosis: Major depression - single episode (296.2) Sleep disturbance Risk of suicide: Low P: Discussed importance of both meds and therapy for her Education: The patient is scheduled for an educational session with a therapist Psychotherapy: An appointment has been made for the patient with a therapist Medication Fluoxetine (Prozac) 20 mg daily and Trazodone 50-100mg at bedtime as needed for sleeplessness. Discussed medication dosage, usage, goals of therapy, and side effects. Follow-up: The patient will schedule a return appointment to be seen in clinic in 4-8wks as long as she is seeing therapist and there's improvement. Otherwise, return to see me sooner with any ill sideeffects or worsening symptoms TT 25 minutes/ CT 15 minutes documented in this encounter Plan of Treatment Not on filedocumented as of this encounter Visit Diagnoses Diagnosis Depressive disorder, not elsewhere class ified - Primary Sleep disturbance Sleep disturbance, unspecified Reflux esophagitis documented in this encounter Care Teams School Boat Driver Relationship Specialty Start Date End Date Tiffany Gonzalez, STRATIGRAPHER, DNP PCP - General 01/16/00 02/03/16 [address] [place] [id number] documented as of this encounter
--- OUTSIDE RECORDS SUMMARY | 2021-12-28 14:19 | XMS_ITS | Encounter Summary ---
:1965 Author Organization [facility] Address [address] [place] [address] Care Team Providers Name Role Phone Tiffany Gonzalez APRN, DNP Primary Care Provider Encounter Details Date Type Department Care Team Description 03/02/2006 Scanned History External to NEPHROLOGY /HYPERTENSION- [place] Social History Tobacco Use Types Packs/Day Years Used Date Smoking Tobacco: Former Alcohol Use Standard Drinks/Week Comments Yes 0 (1 standard drink = 0.6 oz pure alcoho l) rarely Sex Assigned at Date Recorded Not on file documented as of this encounter Progress Notes [facility], PROVIDER - 03/02/2006 12:00 AM SALES ASSISTANT INSTITUTIONAL SALES documented in this encounter Plan of Treatment Not on filedocumented as of this encounter Visit Diagnoses Not on filedocumented in this encounter Care Teams Professor Of Legal Studies Relationship Specialty Start Date End Date Tiffany Gonzalez APRN, GAIL PCP - General 01/16/00 02/03/16 [address] [id number] documented as of this encounter
--- OUTSIDE RECORDS SUMMARY | 2021-12-28 14:19 | XMS_ITS | Encounter Summary ---
:1965 Author Organization [facility] Address [address] [place] [address] Care Team Providers Name Role Phone Tiffany Gonzalez APRN, DNP Primary Care Provider [phone] Reason for Visit Reason Onset Date Comments Questions 02/23/2006 medication Encounter Details Date Type Department Care Team Description 02/23/2006 Telephone [facility] 401 Yaakov Fraire MD Questions (medication) All[facility] Clinic [address] [place] [address] Social History Tobacco Use Types Packs/Day Years Used Date Smoking Tobacco: Former Alcohol Use Standard Drinks/Week Comments Yes 0 (1 standard drink = 0.6 oz pure alcoho l) rarely Sex Assigned at Date Recorded Not on file documented as of this encounter Nursing Notes Celsa Meredith - 02/23/2006 1:59 PM SUPERVISOR NETWORK CONTROL OPERATORS Spoke to pt. Informed can restart IMT after no Beta bridget for 7 days-Pt voiced understanding. Celsa Meredith RN [employer] Tejinder Fraire - 02/23/2006 1:40 PM SUPERVISOR NETWORK CONTROL OPERATORS OK to re-start allergy injections after no beta bridget for 7 days. Tejinder Fraire MD [employer] Celsa Meredith - 02/23/2006 1:18 PM SUPERVISOR NETWORK CONTROL OPERATORS Spoke to pt. this am when here for IMT & not given because since her last IMT on 02-01-06 was started on the betablocker-Labetalol 200mg daily on 02-08-06-pt is on a [facility] study-pt will be on Labetalol until 03-01-06 & then will be on Lisinopril thereafter-Will have Dr. Fraire review & contact pt re: when she can resume IMT.Celsa Meredith RN [employer] Dawna Cloud [facility] [place] 02/23/2006 12:48 PM SUPERVISOR NETWORK CONTROL OPERATORS [phone] patient calling stating that she will be on her beta bridget medication until 03-01-06and then goes back on the Lisinopril. please call pt back. thank you Dawna Cloud [employer] documented in this encounter Plan of Treatment Not on filedocumented as of this encounter Visit Diagnoses Not on filedocumented in this encounter Care Teams Glove Cutter Relationship Specialty Start Date End Date Tiffany Gonzalez APRN, DNP PCP - General 01/16/00 02/03/16 [address] [id number] documented as of this encounter
--- OUTSIDE RECORDS SUMMARY | 2021-12-28 14:19 | XMS_ITS | Encounter Summary ---
:1965 Author Organization [facility] Address [address] [place] [address] Care Team Providers Name Role Phone Tiffany Gonzalez APRN, GAIL Primary Care Provider [phone] Reason for Visit Reason Comments ALLERGY SHOT Encounter Details Date Type Department Care Team Description 10/28/2005 [facility] 401 DESE NSITIZATION TO ALLERGENS Allergy Clinic [address] [facility] [place] [place] [address] Social History Tobacco Use Types Packs/Day Years Used Date Smoking Tobacco: Every Day Comments: 1pak/week Alcohol Use Standard Drinks/Week Comments Yes 0 (1 standard drink = 0.6 oz pure alcoho l) rarely Sex Assigned at Date Recorded Not on file documented as of this encounter Progress Notes 10/28/2005 1:10 PM CDT S: Stephanie Norman here [...] allergy shot given today Ruthann Bull RN 1:09 PM documented in this encounter Plan of Treatment Not on filedocumented as of this encounter Visit Diagnoses Diagnosis Need for desensitization to allergens documented in this encounter Care Teams Shell Maker Lockstitch Relationship Specialty Start Date End Date Tiffany Gonzalez APRN, DNP PCP - General 01/16/00 02/03/16 [address] [id number] documented as of this encounter
--- OUTSIDE RECORDS SUMMARY | 2021-12-28 14:19 | XMS_ITS | Encounter Summary ---
:1965 Author Organization [facility] Address [address] [place] [address] Care Team Providers Name Role Phone Tiffany Gonzalez APRN, DNP Primary Care Provider [phone] Reason for Visit Reason Comments ALLERGY SHOT Encounter Details Date Type Department Care Team Description 06/03/2006 [facility] 401 Need for Desensitization to Allergy Clinic Allergens (Primary Dx) [address] [place] [address] Social History Tobacco Use Types Packs/Day Years Used Date Smoking Tobacco: Former Alcohol Use Standard Drinks/Week Comments Yes 0 (1 standard drink = 0.6 oz pure alcoho l) rarely Sex Assigned at Date Recorded Not on file documented as of this encounter Progress Notes Celsa Meredith - 06/03/2006 9:14 AM CST S: Stephanie Barillas Emerson here [...] allergy shot(s) given today Celsa Meredith RN 8:45 AM ER PRESS TENDER HEAD documented in this encounter Plan of Treatment Not on filedocumented as of this encounter Visit Diagnoses Diagnosis Need for desensitization to allergens - Primary documented in this encounter Care Teams Trial Attorney Relationship Specialty Start Date End Date Tiffany Gonzalez APRN, DNP PCP - General 01/16/00 02/03/16 [address] [id number] documented as of this encounter
--- OUTSIDE RECORDS SUMMARY | 2021-12-28 14:19 | XMS_ITS | Encounter Summary ---
:1965 Author Organization [facility] Address [address] [place] [address] Care Team Providers Name Role Phone Tiffany Gonzalez APRN, DNP Primary Care Provider [phone] Reason for Visit Reason Comments ALLERGY SHOT Encounter Details Date Type Department Care Team Description 02/01/2006 [facility] Visit [facility] 401 Need for Desensitization to Allergy Clinic Allergens (Primary Dx) [address] [place] [address] Social History Tobacco Use Types Packs/Day Years Used Date Smoking Tobacco: Former Alcohol Use Standard Drinks/Week Comments Yes 0 (1 standard drink = 0.6 oz pure alcoho l) rarely Sex Assigned at Date Recorded Not on file documented as of this encounter Progress Notes 02/01/2006 1:00 PM CDT S: Stephanie Nargis Emerson here for allergy injection(s) O: The [...] documented in this encounter Care Teams Marketing Community Liaison Relationship Specialty Start Date End Date Tiffany Gonzalez APRN, DNP PCP - General 01/16/00 02/03/16 [address] [address] documented as of this encounter
--- OUTSIDE RECORDS SUMMARY | 2021-12-28 14:19 | XMS_ITS | Encounter Summary ---
:1965 Author Organization [facility] Address [address] [place] [address] Care Team Providers Name Role Phone Tiffany Gonzalez APRN, DNP Primary Care Provider Reason for Visit Reason Comments ALLERGY SHOT Encounter Details Date Type Department Care Team Description 04/05/2006 Office Visit [facility] 401 Need for Desensitization to Allergy Clinic Allergens (Primary Dx) [address] [place] [address] Social History Tobacco Use Types Packs/Day Years Used Date Smoking Tobacco: Former Alcohol Use Standard Drinks/Week Comments Yes 0 (1 standard drink = 0.6 oz pure alcoho l) rarely Sex Assigned at Date Recorded Not on file documented as of this encounter Progress Notes Celsa Meredith - 04/05/2006 1:18 PM CST S: Stephanie Barillas Emerson here [...] given today Celsa Meredith RN 1:10 PM ATRIC AUDIOLOGIST documented in this encounter Plan of Treatment Not on filedocumented as of this encounter Visit Diagnoses Diagnosis Need for desensitization to allergens - Primary documented in this encounter Care Teams Shift Supervisor Rn Relationship Specialty Start Date End Date Tiffany Gonzalez APRN, DNP PCP - General 01/16/00 02/03/16 [address] [id number] documented as of this encounter
--- OUTSIDE RECORDS SUMMARY | 2021-12-28 14:19 | XMS_ITS | Encounter Summary ---
:1965 Author Organization [facility] Address [address] [place] [address] Care Team Providers Name Role Phone Tiffany Gonzalez APRN, DNP Primary Care Provider [phone] Reason for Visit Reason Comments ALLERGY SHOT Encounter Details Date Type Department Care Team Description 04/27/2006 [facility] Visit [facility] 401 Need for Desensitization to Allergy Clinic Allergens (Primary Dx) [address] [place] [address] Social History Tobacco Use Types Packs/Day Years Used Date Smoking Tobacco: Former Alcohol Use Standard Drinks/Week Comments Yes 0 (1 standard drink = 0.6 oz pure alcoho l) rarely Sex Assigned at Date Recorded Not on file documented as of this encounter Progress Notes Celsa Meredith - 04/27/2006 2:44 PM CST S: Stephanie Barillas Emerson here [...] allergy shot(s) given today Celsa Meredith RN 1:35 PM TACKER documented in this encounter Plan of Treatment Not on filedocumented as of this encounter Visit Diagnoses Diagnosis Need for desensitization to allergens - Primary documented in this encounter Care Teams Account Manager B2B Relationship Specialty Start Date End Date Tiffany Gonzalez APRN, DNP PCP - General 01/16/00 02/03/16 [address] [id number] documented as of this encounter
--- OUTSIDE RECORDS SUMMARY | 2021-12-28 14:19 | XMS_ITS | Encounter Summary ---
:1965 Author Organization [facility] Address [address] [place] [address] Care Team Providers Name Role Phone Tiffany Gonzalez APRN, GAIL Primary Care Provider [phone] Reason for Visit Reason Comments ALLERGY SHOT Encounter Details Date Type Department Care Team Description 09/03/2005 [facility] Visit [facility] 401 DESE NSITIZATION TO ALLERGENS Allergy Clinic [address] [facility] [place] [address] Social History Tobacco Use Types Packs/Day Years Used Date Smoking Tobacco: Every Day Comments: 1pak/week Alcohol Use Standard Drinks/Week Comments Yes 0 (1 standard drink = 0.6 oz pure alcoho l) rarely Sex Assigned at Date Recorded Not on file documented as of this encounter Progress Notes 09/03/2005 1:00 PM CDT S: Stephanie Norman here [...] allergens documented in this encounter Care Teams Automatic Machine Attendant Relationship Specialty Start Date End Date Tiffany Gonzalez APRN, DNP PCP - General 01/16/00 02/03/16 [address] [id number] documented as of this encounter
--- OUTSIDE RECORDS SUMMARY | 2021-12-28 14:19 | XMS_ITS | Encounter Summary ---
:1965 Author Organization [facility] Address [address] [place] [address] Care Team Providers Name Role Phone Tiffany Gonzalez APRN, GAIL Primary Care Provider [phone] Reason for Visit Reason Comments ALLERGY SHOT Encounter Details Date Type Department Care Team Description 08/25/2005 [facility] Visit [facility] 401 DESE NSITIZATION TO ALLERGENS [facility] [place] [address] Social History Tobacco Use Types Packs/Day Years Used Date Smoking Tobacco: Every Day Comments: 1pak/week Alcohol Use Standard Drinks/Week Comments Yes 0 (1 standard drink = 0.6 oz pure alcoho l) rarely Sex Assigned at Date Recorded Not on file documented as of this encounter Progress Notes 08/25/2005 1:10 PM CDT S: Stephanie Norman here [...] allergens documented in this encounter Care Teams Activities Attendant Relationship Specialty Start Date End Date Tiffany Gonzalez APRN, DNP PCP - General 01/16/00 02/03/16 [address] [id number] documented as of this encounter
--- OUTSIDE RECORDS SUMMARY | 2021-12-28 14:19 | XMS_ITS | Encounter Summary ---
:1965 Author Organization [facility] Address [address] [place] [address] Care Team Providers Name Role Phone Tiffany Gonzalez APRN, DNP Primary Care Provider [phone] Reason for Visit Reason Comments ALLERGY SHOT Encounter Details Date Type Department Care Team Description 03/19/2006 [facility] Visit [facility] 401 Need [...] this encounter Progress Notes Celsa Meredith - 03/19/2006 1:18 PM HARDWARE SALES ASSISTANT S: Stephanie Norman here for allergy injection(s) [...] given today Celsa Meredith RN 1:10 PM WARE SALES ASSISTANT documented in this encounter Plan of Treatment Not on filedocumented as of this encounter Visit Diagnoses Diagnosis Need for desensitization to allergens - Primary documented in this encounter Care Teams Mobile Application Engineer Relationship Specialty Start Date End Date Tiffany Gonzalez APRN, DNP PCP - General 01/16/00 02/03/16 [address] [place] [id number] documented as of this encounter
--- OUTSIDE RECORDS SUMMARY | 2021-12-28 14:19 | XMS_ITS | Encounter Summary ---
:1965 Author Organization [facility] Address [address] [place] [address] Care Team Providers Name Role Phone Marcelo Gonzalez APRN, DNP Primary Care Provider Reason for Visit Reason Onset Date Comments Medication Request 12/29/2005 Encounter Details Date Type Department Care Team Description 12/29/2005 Telephone [facility] Marcelo Gonzalez Medication Request [address] [address] [address] [facility] [phone] [place] [id number] (Wo rk) Social History Tobacco Use Types Packs/Day Years Used Date Smoking Tobacco: Every Day Comments: 1pak/week Alcohol Use Standard Drinks/Week Comments Yes 0 (1 standard drink = 0.6 oz pure alcoho l) rarely Sex Assigned at Date Recorded Not on file documented as of this encounter Nursing Notes 12/29/2005 11:59 PM CDT >> MYLES WALLACE brittani Dec 29, 2005 2:49 PM message to patient per Obey' recommendations and Rx. Roselyn Wallace, RN >> MARCELO Estrella Dec 29, 2005 1:40 PM She's been on Zyban. It's okay to refill that. Yes, committ lozenges are okay as they are considered nicotine replacement. It is IN PL[facility] O. Marcelo Gonzalez, CAMILA >> JE Estrella Dec 29, 2005 12:07 PM pt is req zyban to stop smoking and also wants to know if it is safe to take commit losenges at thesame time to also help to stop smoking documented in this encounter Plan of Treatment Not on filedocumented as of this encounter Visit Diagnoses Not on filedocumented in this encounter Care Teams Asphalt Screed Operator Relationship Specialty Start Date End Date Marcelo Gonzalez APRN, DNP PCP - General 01/16/00 02/03/16 [address] [place] [id number] documented as of this encounter
--- OUTSIDE RECORDS SUMMARY | 2021-12-28 14:19 | XMS_ITS | Encounter Summary ---
:1965 Author Organization [facility] Address [address] [place] [address] Care Team Providers Name Role Phone Tiffany Gonzalez APRN, GAIL Primary Care Provider [phone] Reason for Visit Reason Comments ALLERGY SHOT Encounter Details Date Type Department Care Team Description 11/03/2005 Office Visit [facility] 401 DESE NSITIZATION TO ALLERGENS Allergy Clinic [address] [facility] [place] [address] Social History Tobacco Use Types Packs/Day Years Used Date Smoking Tobacco: Every Day Comments: 1pak/week Alcohol Use Standard Drinks/Week Comments Yes 0 (1 standard drink = 0.6 oz pure alcoho l) rarely Sex Assigned at Date Recorded Not on file documented as of this encounter Progress Notes 11/03/2005 1:10 PM CDT S: Stephanie Norman here [...] allergens documented in this encounter Care Teams Fiscal Services Manager Relationship Specialty Start Date End Date Tiffany Gonzalez APRN, DNP PCP - General 01/16/00 02/03/16 [address] [id number] documented as of this encounter
--- OUTSIDE RECORDS SUMMARY | 2021-12-28 14:20 | XMS_ITS | Encounter Summary ---
:1965 Author Organization [facility] Address [address] [place] [address] Care Team Providers Name Role Phone Tiffany Gonzalez APRN, GAIL Primary Care Provider [phone] Encounter Details Date Type Department Care Team Description 06/17/2005 Notes/Orders [facility] Nephrology Davi Briones MD HYPERTENSION NOS [address] [facility]. [address] [place] [address] [place], [place] [id number] (Wo rk) Social History Tobacco Use Types Packs/Day Years Used Date Smoking Tobacco: Every Day Comments: 1pak/week Alcohol Use Standard Drinks/Week Comments Yes 0 (1 standard drink = 0.6 oz pure alcoho l) rarely Sex Assigned at Date Recorded Not on file documented as of this encounter Progress Notes 06/17/2005 11:59 PM GLASSWARE FINISHER Quick Note by: DAVI BRIONES X on 06/18/05 at 12:48 AM. I reviewed available labs. Please send patient results and inform that these are normal, or stable compared with before. There is no action needed at this time. Call with additional questions. Bertram Briones MD documented in this encounter Plan of Treatment Not on filedocumented as of this encounter Procedures Procedure Name Priority Date/Time Associated Diagnosis Comme nts BASIC METABOLIC Routine 06/17/2005 9:16 AM Hypertension Nos Re sults for this PANEL GLASSWARE FINISHER procedure are i n the results section. UA MICRO IF Routine 06/17/2005 9:16 AM Hypertension Nos Resul ts for this GLASSWARE FINISHER procedure are i n the results section. TP/CREA RATIO, Routine 06/17/2005 9:16 AM Hypertension Nos Res ults for this URINE GLASSWARE FINISHER procedure are i n the results section. MAGNESIUM Routine 06/17/2005 9:16 AM Hypertension Nos Resul ts for this GLASSWARE FINISHER procedure are i n the results section. documented in this encounter Results MAGNESIUM (06/17/2005 9:16 AM GLASSWARE FINISHER) P athologist Signature Magnesium 2.0 1.6 - 2.6 [facility] mg/dl Specimen Anatomical Collection Method Collection Time Receive d Time (Source) Location / / Volume Laterality 06/17/2005 9:16 AM 6 9:19 GLASSWARE FINISHER AM GLASSWARE FINISHER Davi Briones MD LAB_1 Performing Organization Address City/State/[facility] Code Phon e Number [facility] [phone] [facility] [address] [phone] (ABNORMAL) BASIC METABOLIC PANEL (06/17/2005 9:16 AM GLASSWARE FINISHER) Patholo gist Method Time Signature BUN 12 10 - 26 [facility] mg/dl Sodium 139 135 - 145 [facility] mmol/L Potassium 4.6 3.5 - 5.3 [facility] mmol/L Chloride 105 95 - 105 [facility] mmol/L CO2 27 22 - 31 [facility] mmol/L Glucose 81 65 - 115 [facility] mg/dl Creatinine 1.3 0.6 - 1.3 [facility] mg/dl GFR, Estimated 48.0 (L) >60 [facility] ml/min/1. 73m2 GFR, Est., If 58.1 (L) >60 [facility] Black ml/min/1. 73m2 Calcium 9.2 8.2 - [facility] 10.0 mg/dl Anion Gap 7 7 - 17 [facility] (calc.) mmol/L Specimen Anatomical Collection Method Collection Time Receive d Time (Source) Location / / Volume Laterality 06/17/2005 9:16 AM 6 9:19 GLASSWARE FINISHER AM GLASSWARE FINISHER Davi Briones MD LAB_1 Performing Organization Address [facility] Phon e Number [facility] [employer] [phone] [facility] [address] [address] TP/CREA RATIO, URINE (06/17/2005 9:16 AM GLASSWARE FINISHER) P athologist Signature Total Protein, 12 mg/dl [facility] Urine, Random Creatinine,Ur 148.3 mg/dl [facility] Random TP/Creat 0.1 <0.2 [facility] Ratio, Urine, Random Specimen Anatomical Collection Method Collection Time Receive d Time (Source) Location / / Volume Laterality 06/17/2005 9:16 AM 9:20 GLASSWARE FINISHER AM GLASSWARE FINISHER Davi Briones MD LAB_1 Performing Organization Address [facility] Phon e Number [facility] [employer] [phone] [facility] [address] [place] [phone] UA MICRO IF (06/17/2005 9:16 AM GLASSWARE FINISHER) Patholo gist Method Time Signature Appr Yellow [facility] Appr Clear [facility] Sp Gr 1.015 1.005 - [facility] 1.030 Leuk Neg [place] [facility] Nitr Neg [place] [facility] pH 6.5 4.5 - 8.0 [facility] Prot Neg [place] mg/dl [facility] Gluc Neg [place] mg/dl [facility] Ket Neg [place] mg/dl [facility] Urob 0.2 0.2 - 1.0 [facility] EU/dl Bili Neg [place] [facility] Blood Neg [place] [facility] Comment Micro Not [facility] Indicated Specimen Anatomical Collection Method Collection Time Receive d Time (Source) Location / / Volume Laterality 06/17/2005 9:16 AM 6 9:19 GLASSWARE FINISHER AM GLASSWARE FINISHER Davi Briones MD LAB_1 Performing Organization Address [facility] Phon e Number [facility] [employer] [phone] [facility] [address] [place] [phone] documented in this encounter Visit Diagnoses Diagnosis Unspecified essential hypertension (HRC) Unspecified essential hypertension documented in this encounter Care Teams Academic Administrator Relationship Specialty Start Date End Date Tiffany Gonzalez APRN, DNP PCP - General 01/16/00 02/03/16 [address] [place] [id number] documented as of this encounter
--- OUTSIDE RECORDS SUMMARY | 2021-12-28 14:20 | XMS_ITS | Encounter Summary ---
:1965 Author Organization [facility] Address [address] [place] [address] Care Team Providers Name Role Phone Tiffany Gonzalez APRN, DNP Primary Care Provider [phone] Encounter Details Date Type Department Care Team Description 06/25/2005 Correspondence [facility] Tejinder Fraire [facility] [place] [place] [facility] INSTRUCTIONS [address] [place] [address] [place] [phone] Social History Tobacco Use Types Packs/Day Years Used Date Smoking Tobacco: Every Day Comments: 1pak/week Alcohol Use Standard Drinks/Week Comments Yes 0 (1 standard drink = 0.6 oz pure alcoho l) rarely Sex Assigned at Date Recorded Not on file documented as of this encounter Progress Notes Tejinder Fraire - 06/25/2005 12:00 AM BSA/AML COMPLIANCE OFFICER /AML COMPLIANCE OFFICER documented in this encounter Plan of Treatment Not on filedocumented as of this encounter Visit Diagnoses Not on filedocumented in this encounter Care Teams Drafter Heating And Ventilating Relationship Specialty Start Date End Date Tiffany Gonzalez APRN, GAIL PCP - General 01/16/00 02/03/16 [address] [place] [id number] documented as of this encounter
--- OUTSIDE RECORDS SUMMARY | 2021-12-28 14:20 | XMS_ITS | Encounter Summary ---
:1965 Author Organization [facility] Address [address] [place] [address] Care Team Providers Name Role Phone Tiffany Gonzalez APRN, DNP Primary Care Provider Encounter Details Date Type Department Care Team Description 08/19/2005 Correspondence None Kevyn Lopez, Provider parpi Social History Tobacco Use Types Packs/Day Years Used Date Smoking Tobacco: Every Day Comments: 1pak/week Alcohol Use Standard Drinks/Week Comments Yes 0 (1 standard drink = 0.6 oz pure alcoho l) rarely Sex Assigned at Date Recorded Not on file documented as of this encounter Progress Notes Kevyn Lopez Provider - 08/19/2005 12:00 AM CDT documented in this encounter Plan of Treatment Not on filedocumented as of this encounter Visit Diagnoses Not on filedocumented in this encounter Care Teams Chemical Mixer Relationship Specialty Start Date End Date Tiffany Gonzalez APRN, GAIL PCP - General 01/16/00 02/03/16 [address] [place] [id number] documented as of this encounter
--- OUTSIDE RECORDS SUMMARY | 2021-12-28 14:20 | XMS_ITS | Encounter Summary ---
:1965 Author Organization [facility] Address [address] [place] [address] Care Team Providers Name Role Phone Tiffany Gonzalez APRN, GAIL Primary Care Provider [phone] Reason for Visit Reason Comments ALLERGY SHOT Encounter Details Date Type Department Care Team Description 08/18/2005 Office Visit Specialty Center 401 [facility]E NSITIZATION TO ALLERGENS Allergy Clinic [facility] [place] [address] Social History Tobacco Use Types Packs/Day Years Used Date Smoking Tobacco: Every Day Comments: 1pak/week Alcohol Use Standard Drinks/Week Comments Yes 0 (1 standard drink = 0.6 oz pure alcoho l) rarely Sex Assigned at Date Recorded Not on file documented as of this encounter Progress Notes 08/18/2005 12:40 PM CDT S: Stephanie Norman here for [...] allergy shot(s) given today Aysha Taylor RN 1:05 PM documented in this encounter Plan of Treatment Not on filedocumented as of this encounter Visit Diagnoses Diagnosis Need for desensitization to allergens documented in this encounter Care Teams Race Steward Relationship Specialty Start Date End Date Tiffany Gonzalez APRN, DNP PCP - General 01/16/00 02/03/16 [address] [place] [id number] documented as of this encounter
--- OUTSIDE RECORDS SUMMARY | 2021-12-28 14:20 | XMS_ITS | Encounter Summary ---
:1965 Author Organization [facility] Address [address] [place] [address] Care Team Providers Name Role Phone Tiffany Gonzalez APRN, DNP Primary Care Provider [phone] Reason for Visit Reason Onset Date Comments RESULTS, TEST 06/18/2005 Encounter Details Date Type Department Care Team Description 06/18/2005 Telephone Specialty Center 401 Tami Hoyt RN RESULTS, TEST Nephrology [address] [place] [phone] (Wo rk) Social History Tobacco Use Types Packs/Day Years Used Date Smoking Tobacco: Every Day Comments: 1pak/week Alcohol Use Standard Drinks/Week Comments Yes 0 (1 standard drink = 0.6 oz pure alcoho l) rarely Sex Assigned at Date Recorded Not on file documented as of this encounter Nursing Notes 06/18/2005 11:59 PM ARCH SUPPORT MAKER >> TAMI HOYT Sarah Jun 18, 2005 9:09 AM Notes recorded by Davi Esparza on 06/18/2005 at 12:48 AM I reviewed available labs. Please send patient results and inform that these are normal, or stable compared with before. There is no action needed at this time. Call with additional questions. Bertram Esparza MD Noted. I will mail reports to the pt. Tami Hoyt, RN documented in this encounter Plan of Treatment Not on filedocumented as of this encounter Visit Diagnoses Not on filedocumented in this encounter Care Teams Carpentry Professional Relationship Specialty Start Date End Date Tiffany Gonzalez APRN, DNP PCP - General 01/16/00 02/03/16 [address] [place] [id number] documented as of this encounter
--- OUTSIDE RECORDS SUMMARY | 2021-12-28 14:20 | XMS_ITS | Encounter Summary ---
:1965 Author Organization [facility] Address [address] [place] [address] Care Team Providers Name Role Phone Tiffany Gonzalez APRN, DNP Primary Care Provider Encounter Details Date Type Department Care Team Description 06/25/2005 Orders Only [facility] 401 Unknown, Physician Allergy Clinic [address] [place] [address] [place] [address] [phone] Social History Tobacco Use Types Packs/Day Years Used Date Smoking Tobacco: Every Day Comments: 1pak/week Alcohol Use Standard Drinks/Week Comments Yes 0 (1 standard drink = 0.6 oz pure alcoho l) rarely Sex Assigned at Date Recorded Not on file documented as of this encounter Procedure Notes Tejinder Fraire - 06/25/2005 12:00 AM CSTAssociated Order(s): SPIROMETRY GER OF INTERNAL documented in this encounter Plan of Treatment Not on filedocumented as of this encounter Procedures Procedure Name Priority Date/Time Associated Diagnosis Comme nts SPIROMETRY 06/25/2005 12:00 AM Results for this MANAGER OF INTERNAL procedure are i n the results section . SPIROMETRY 06/25/2005 Results for thi s procedure are i n the results section . documented in this encounter Results SPIROMETRY (06/25/2005 12:00 AM MANAGER OF INTERNAL) Narrative 06/25/2005 12:00 AM MANAGER OF INTERNAL This result has an attachment that is no t available. Ordered by an unspecified provider. Transcriptions Tejinder Fraire - 06/25/2005 12:00 AM MANAGER OF INTERNAL Physician Unknown DUMMY/OTHER/AR documented in this encounter Visit Diagnoses Not on filedocumented in this encounter Care Teams Customer Account Coordinator Relationship Specialty Start Date End Date Tiffany Gonzalez APRN, DNP PCP - General 01/16/00 02/03/16 [address] [id number] documented as of this encounter
--- OUTSIDE RECORDS SUMMARY | 2021-12-28 14:20 | XMS_ITS | Encounter Summary ---
:1965 [address] [facility] Address [address] [place] [address] Care Team Providers Name Role Phone Tiffany Gonzalez APRN, DNP Primary Care Provider Encounter Details Date Type Department Care Team Description 01/19/2005 Notes/Orders [facility] Nephrology Davi Esparza MD HYPERTENSION NOS [address] [facility] (Primary Dx) [place] [address] [place] [address] [phone] Social History Tobacco Use Types Packs/Day Years Used Date Smoking Tobacco: Former Comments: 1pac/week Alcohol Use Standard Drinks/Week Comments Yes 0 (1 standard drink = 0.6 oz pure alcoho l) rarely Sex Assigned at Date Recorded Not on file documented as of this encounter Plan of Treatment Not on filedocumented as of this encounter Results MAGNESIUM (06/17/2005 9:16 AM AUTO FORMER MACHINE OPERATOR) athologist Signature Magnesium 2.0 1.6 - 2.6 [facility] mg/dl Specimen Anatomical Collection Method Collection Time Receive d Time (Source) Location / / Volume Laterality 06/17/2005 9:16 AM 6 9:19 AUTO FORMER MACHINE OPERATOR AM AUTO FORMER MACHINE OPERATOR Davi Esparza MD LAB_1 Performing Organization Address City/State/ZIP Code Phon e Number [facility] [phone] [phone] (ABNORMAL) BASIC METABOLIC PANEL (06/17/2005 9:16 AM AUTO FORMER MACHINE OPERATOR) Patholo gist Method Time Signature BUN 12 [...] 73m2 GFR, Est., If 58.1 (L) >60 [facility] Black ml/min/1. 73m2 Calcium 9.2 8.2 - [facility] 10.0 mg/dl Anion Gap 7 7 - 17 [facility] (calc.) mmol/L Specimen Anatomical Collection Method Collection Time Receive d Time (Source) Location / / Volume Laterality 06/17/2005 9:16 AM 6 9:19 AUTO FORMER MACHINE OPERATOR AM AUTO FORMER MACHINE OPERATOR Davi Esparza MD LAB_1 Performing Organization Address City/[facility]/ZIP Code Phon e Number [facility] [employer] [phone] [phone] TP/CREA RATIO, URINE (06/17/2005 9:16 AM AUTO FORMER MACHINE OPERATOR) P athologist Signature Total Protein, 12 mg/dl [facility] Urine, Random Creatinine,Ur 148.3 mg/dl [facility] Random TP/Creat 0.1 <0.2 [facility] Ratio, Urine, Random Specimen Anatomical Collection Method Collection Time Receive d Time (Source) Location / / Volume Laterality 06/17/2005 9:16 AM 6 9:20 AUTO FORMER MACHINE OPERATOR AM AUTO FORMER MACHINE OPERATOR Davi Esparza MD LAB_1 Performing Organization Address City/[facility]/ZIP Code Phon e Number [facility] [phone] [place] [address] UA MICRO IF (06/17/2005 9:16 AM AUTO FORMER MACHINE OPERATOR) [facility] Method Time Signature Appr Yellow [facility] Appr [...] Volume Laterality 06/17/2005 9:16 AM 6 9:19 AUTO FORMER MACHINE OPERATOR AM AUTO FORMER MACHINE OPERATOR Davi Esparza MD LAB_1 Performing Organization Address City/State/ZIP Code Phon e Number [facility] [phone] [facility] [address] [place] [phone] documented in this encounter Visit Diagnoses Diagnosis Unspecified essential hypertension (HRC) - Primary Unspecified essential hypertension documented in this encounter Care Teams Gas Engine Operator Compressors Relationship Specialty Start Date End Date Tiffany Gonzalez APRN, DNP PCP - General 01/16/00 02/03/16 [address] [place] [id number] documented as of this encounter
--- OUTSIDE RECORDS SUMMARY | 2021-12-28 14:20 | XMS_ITS | Encounter Summary ---
:1965 Author Organization [facility] Address [address] [place] [address] Care Team Providers Name Role Phone Tiffany Gonzalez APRN, DNP Primary Care Provider [phone] Reason for Visit Reason Comments Follow-up, NOS Encounter Details Date Type Department Care Team Description 03/09/2005 Office Visit [place] [facility] Davi Esparza MD POLYCYST KIDN, AUTOSOM DOM; [address] [place] [address] CHRONIC KIDNEY DISEASE, GFR 30-59 (MOD) [place] [address] [place], [place] [address] [phone] Social History Tobacco Use Types Packs/Day Years Used Date Smoking Tobacco: Every Day Comments: 1pac/week Alcohol Use Standard Drinks/Week Comments Yes 0 (1 standard drink = 0.6 oz pure alcoho l) rarely Sex Assigned at Date Recorded Not on file documented as of this encounter Last Filed Vital Signs Vital Sign Reading Time Taken Comments Blood Pressure 118/72 03/09/2005 2:53 PM MANAGER HOTEL Pulse 64 03/09/2005 2:53 PM MANAGER HOTEL Temperature - - Respiratory Rate - - Oxygen Saturation - - Inhaled Oxygen Concentration - - Weight 106.8 kg (235 lb 6.4 oz) 03/09/2005 2:53 PM MANAGER HOTEL Height - - Body Mass Index 36.6 06/02/2004 8:05 AM MANAGER HOTEL documented in this encounter Progress Notes Davi Esparza - 03/09/2005 12:00 AM CSTSUBJECTIVE: The patient is a 39-year-old lady who is 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 Family history is outlined in the previous note. She reports that her dad is having some increasing medical problems, and [facility] He had kidney transplantation many years ago. The patient is also doing reasonably well from a medical perspective, and reports no active concerns or complaints. She has been previously diagnosed with hypertension and is on lisinopril but very good control based on a number of office readings. She is also on vitamin D. She has had some difficulties with overweight/obesity and has tried a number of different approaches with ultimately gaining most of her weight back after initial success. Clinically, again, she is doing well. Blood pressure and other vitals today are as noted. Weight is as noted. She has no edema. She looks well. Reviewing her laboratory, her creatinine level has been 1.4 on two occasions this year, with estimated GFR of 44 mL per minute. Her urinalysis has been entirely unremarkable. Previously, her creatinine level was 1.3 in May of this year and in May of last year. She has not had any recent symptoms suggestive of UTIs or ruptured cysts. IMPRESSION: 1. ADP CKD. Clinically asymptomatic. No known cerebral aneurysms based on MRI last year, and no symptoms that would be suggestive of concern such as headache. 2. Controlled hypertension. 3. Obesity. DISCUSSION: The patient is showing some signs of progression of kidney disease, with now sustained elevation in creatinine level outside the normal range. She has had variable controlled hypertension and we spent the rest of the 25 minutes appointment time today reviewing with her some of the known associations between polycystic kidney disease and cerebral aneurysms, valvular heart disease, diverticula and ultimately concerns about progressive kidney disease. In view of family history, she is at increased risk to progress to endstage kidney disease requiring dialysis, and as of now there are no specific medications that have been proven useful in retarding the cyst growth or even reversing the disease process. We expect that over the next few years some specific vasopressin receptor antagonists might become commercially available. Additionally, it is unclear what role dietary modification has to play, if any, in this specific condition. Certainly, appropriate for hypertension and cardiovascular disease in general diet is appropriate, as well as modest protein restriction though this is a subjective of ongoing controversy. One thing that we did review with the patient is studies suggestive of association of caffeine intake with cyst growth and perhaps she would be better off avoiding chocolate and drinking decaffeinated coffee. For follow up, propose to continue with once yearly or year in a half visits or laboratory studies at 4-6 month intervals and blood pressure checks at every six months, if normotensive on medication like she is today. P cc: GER HOTEL documented in this encounter Nursing Notes 03/09/2005 3:00 PM CST >> ROSENDO NORRIS 03/09/2005 2:56 pm Stephanie Norman is here today regarding follow up. How does the patient want to be notified about their labs? phone call breakfast attendant offered? DECLINED Primary care provider Tiffany Gonzalez, CAMILA Norris RN, 03/09/2005, 2:51 PM documented in this encounter Plan of Treatment Not on filedocumented as of this encounter Visit Diagnoses Diagnosis Polycystic kidney, autosomal dominant Chronic kidney disease, stage III (moder ate) ([facility]) Chronic kidney disease, Stage III (moder ate) documented in this encounter Care Teams Link Wire Fabric Machine Operator Relationship Specialty Start Date End Date Tiffany Gonzalez APRN, DNP PCP - General 01/16/00 02/03/16 [address] [place] [id number] documented as of this encounter
--- OUTSIDE RECORDS SUMMARY | 2021-12-28 14:20 | XMS_ITS | Encounter Summary ---
:1965 Author Organization [facility] Address [address] [place] [address] Care Team Providers Name Role Phone Tiffany Gonzalez APRN, DNP Primary Care Provider [phone] Reason for Visit Reason Comments ALLERGY SHOT Encounter Details Date Type Department Care Team Description 08/04/2005 Office Visit Specialty Center 401 DESE NSITIZATION TO ALLERGENS Allergy Clinic [address] [facility] [address] Social History Tobacco Use Types Packs/Day Years Used Date Smoking Tobacco: Every Day Comments: 1pak/week Alcohol Use Standard Drinks/Week Comments Yes 0 (1 standard drink = 0.6 oz pure alcoho l) rarely Sex Assigned at Date Recorded Not on file documented as of this encounter Progress Notes 08/04/2005 3:20 PM CDT S: Stephanie Norman here for [...] allergy shot(s) given today Celsa Meredith RN 3:30 PM documented in this encounter Plan of Treatment Not on filedocumented as of this encounter Visit Diagnoses Diagnosis Need for desensitization to allergens documented in this encounter Care Teams Sql Server Bi Developer Relationship Specialty Start Date End Date Tiffany Gonzalez APRN, DNP PCP - General 01/16/00 02/03/16 [address] [id number] documented as of this encounter
--- OUTSIDE RECORDS SUMMARY | 2021-12-28 14:20 | XMS_ITS | Encounter Summary ---
:1965 Author Organization [facility] Address [address] [place] [address] Care Team Providers Name Role Phone Tiffany Gonzalez APRN, DNP Primary Care Provider [phone] Encounter Details Date Type Department Care Team Description 07/24/2005 Orders Only [facility] Mammogram, SCREEN ING MAMM-MAILG NEOPL NEC; [place] [facility] FAMILY HX BREAST MAL [address] [place] [address] [place], [place] [address] Social History Tobacco Use Types Packs/Day Years Used Date Smoking Tobacco: Every Day Comments: 1pak/week Alcohol Use Standard Drinks/Week Comments Yes 0 (1 standard drink = 0.6 oz pure alcoho l) rarely Sex Assigned at Date Recorded Not on file documented as of this encounter Procedure Notes Lakesha Solano - 07/24/2005 12:00 AM CDTAssociated Order(s): MAMMOGRAM, SCREENING EXAMINATION: Bilateral mammogram 07/24/05. Exam was reviewed with computer aided detection (CAD) system for a second read. ACR BIRADS CATEGORY 1 - NEGATIVE MAMMOGRAM. Comparison 06/25/03. This is a screening exam. There are scattered fibroglandular densities. There has been no change. Lakesha Solano MD A cc: Radiology Tiffany oGnzalez NP documented in this encounter Plan of Treatment Not on filedocumented as of this encounter Procedures Procedure Name Priority Date/Time Associated Diagnosis Comme nts MAMMOGRAM, SCREENING Routine 07/24/2005 Screening Mamm-Mailg Results for this Neopl Nec procedure are in the Family Hx Breast Malig resul ts section. documented in this encounter Results MAMMOGRAM, SCREENING (07/24/2005) Anatomical Region Laterality Modality Breast Other Transcriptions Lakesha Solano R - 07/24/2005 12:00 AM CD TEXAMINATION: Bilateral mammogram 07/24/05. Exam was reviewed with computer aided de tection (CAD) system for a second read. ACR BIRADS CATEGORY 1 - NEGATIVE MAMMOGR AM. Comparison 06/25/03. This is a screening exam. There are scat tered fibroglandular densities. There has been no change. Lakesha Solano MD A cc: Radiology Tiffany Gonzalez NP Tiffany Gonzalez APRN, DNP RAD_BI documented in this encounter Visit Diagnoses Diagnosis Other screening mammogram Family history of malignant neoplasm of breast documented in this encounter Care Teams Ocean Import Representative Relationship Specialty Start Date End Date Tiffany Gonzalez APRN, DNP PCP - General 01/16/00 02/03/16 [address] [place] [id number] documented as of this encounter
--- OUTSIDE RECORDS SUMMARY | 2021-12-28 14:20 | XMS_ITS | Encounter Summary ---
:1965 Author Organization [facility] Address [address] [place] [address] Care Team Providers Name Role Phone Tiffany Gonzalez APRN, GAIL Primary Care Provider [phone] Reason for Visit Reason Comments ALLERGY SHOT Encounter Details Date Type Department Care Team Description 07/20/2005 Office Visit [facility]ty [facility] 401 [address] NSITIZATION TO ALLERGENS [facility] [place] [address] Social History Tobacco Use Types Packs/Day Years Used Date Smoking Tobacco: Every Day Comments: 1pak/week Alcohol Use Standard Drinks/Week Comments Yes 0 (1 standard drink = 0.6 oz pure alcoho l) rarely Sex Assigned at Date Recorded Not on file documented as of this encounter Progress Notes 07/20/2005 3:50 PM CDT S: Stpehanie Norman here for allergy injection(s) O: The [...] allergy shot(s) given today Celsa Meredith RN 3:50 PM documented in this encounter Plan of Treatment Not on filedocumented as of this encounter Visit Diagnoses Diagnosis Need for desensitization to allergens documented in this encounter Care Teams Genetic Technologist Relationship Specialty Start Date End Date Tiffany Gonzalez APRN, DNP PCP - General 01/16/00 02/03/16 [address] [place] [id number] documented as of this encounter
--- OUTSIDE RECORDS SUMMARY | 2021-12-28 14:20 | XMS_ITS | Encounter Summary ---
:1965 Author Organization [facility] Address [address] [place] [address] Care Team Providers Name Role Phone Tiffany Gonzalez APRN, DNP Primary Care Provider [phone] Reason for Visit Reason Onset Date Comments RESULTS, TEST 06/24/2005 Encounter Details Date Type Department Care Team Description 06/24/2005 Telephone [facility] Tiffany Gonzalez, RESULTS, TEST [address] [place] [address] [address] [facility] [phone] [place], [place] [phone] (Wo rk) Social History Tobacco Use Types Packs/Day Years Used Date Smoking Tobacco: Every Day Comments: 1pak/week Alcohol Use Standard Drinks/Week Comments Yes 0 (1 standard drink = 0.6 oz pure alcoho l) rarely Sex Assigned at Date Recorded Not on file documented as of this encounter Nursing Notes 06/24/2005 11:59 PM HEALTH [facility]DS TECHNOLOGY TEACHER >> KEN DAVIS WedJun 24, 2005 2:45 PM Cervix per dictation note. Called [facility]. >> ROSENDO NUNEZ WedJun 24, 2005 2:11 PM Need the source code on a pap. documented in this encounter Plan of Treatment Not on filedocumented as of this encounter Visit Diagnoses Not on filedocumented in this encounter Care Teams Guard Immigration Relationship Specialty Start Date End Date Tiffany Gonzalez APRN, GAIL PCP - General 01/16/00 02/03/16 [address] [place] [id number] documented as of this encounter
--- OUTSIDE RECORDS SUMMARY | 2021-12-28 14:20 | XMS_ITS | Encounter Summary ---
:1965 Author Organization [facility] Address [address] [place] [address] Care Team Providers Name Role Phone Marcelo Gonzalez APRN, DNP Primary Care Provider [phone] Reason for Visit Reason Onset Date Comments Medication Request 01/22/2005 wants to change anti biotics Encounter Details Date Type Department Care Team Description 01/22/2005 Telephone [facility] Marcelo Gonzalez Medication Request [address] PALOMO Still D[place] ([place] [address] antibiotics) [phone] [place], [place] [phone] (Wo rk) Social History Tobacco Use Types Packs/Day Years Used Date Smoking Tobacco: Former Comments: 1pac/week Alcohol Use Standard Drinks/Week Comments Yes 0 (1 standard drink = 0.6 oz pure alcoho l) rarely Sex Assigned at Date Recorded Not on file documented as of this encounter Nursing Notes 01/22/2005 11:59 PM CDT >> MICHELLE ARNETT [facility] Jan 22, 2005 2:03 PM Detailed mesage left on VM. Rx sent >> MARCELO GONZALEZ [facility] Jan 22, 2005 1:40 PM Try Zpak #1, no refills. Discontinue EES. Marcelo Gonzalez NP >> MICHELLE ARNETT [facility] Jan 22, 2005 9:19 AM Spoke with pt. Having ALOT of abdominal cramping. Her sinus sx have improved somewhat. Is still lamin ested and draining alot from her sinuses but discharge is not colored anymore. >> MICHELLE ARNETT [facility] Jan 22, 2005 8:43 AM Started the erythromycin 01-15-05 for sinusitis. Left message to call back. >> DOMENICA Lehman LAKSHMI [facility] Jan 22, 2005 8:37 AM pt would like to change antiobiotics. The erythromycin is bothering her stomach. She would like some thing different [facility]. documented in this encounter Plan of Treatment Not on filedocumented as of this encounter Visit Diagnoses Not on filedocumented in this encounter Care Teams Manager Critical Care Relationship Specialty Start Date End Date Marcelo Gonzalez APRN, DNP PCP - General 01/16/00 02/03/16 [address] [place] [id number] documented as of this encounter
--- OUTSIDE RECORDS SUMMARY | 2021-12-28 14:20 | XMS_ITS | Encounter Summary ---
:1965 Author Organization [facility] Address [address] [place] [address] Care Team Providers Name Role Phone Tiffany Gonzalez APRN, DNP Primary Care Provider [phone] Encounter Details Date Type Department Care Team Description 06/25/2005 [facility] 401 Yaakov Fraire MD ALLERGY EXTRACT RECORD Allergy Clinic [address] [place] [address] Social History Tobacco Use Types Packs/Day Years Used Date Smoking Tobacco: Every Day Comments: 1pak/week Alcohol Use Standard Drinks/Week Comments Yes 0 (1 standard drink = 0.6 oz pure alcoho l) rarely Sex Assigned at Date Recorded Not on file documented as of this encounter Progress Notes Tejinder Fraire - 06/25/2005 12:00 AM PRESSED OR BLOWN GLASS WORKER SED OR BLOWN GLASS WORKER documented in this encounter Plan of Treatment Not on filedocumented as of this encounter Visit Diagnoses Not on filedocumented in this encounter Care Teams Associate Spa Director Relationship Specialty Start Date End Date Tiffany Gonzalez APRN, DNP PCP - General 01/16/00 02/03/16 [address] [place] [id number] documented as of this encounter
--- OUTSIDE RECORDS SUMMARY | 2021-12-28 14:20 | XMS_ITS | Encounter Summary ---
:1965 Author Organization [facility] Address [address] [place] [address] Care Team Providers Name Role Phone Tiffany Gonzalez APRN, DNP Primary Care Provider Reason for Visit Reason Onset Date Comments ERRONEOUS ENTRY 06/12/2005 Encounter Details Date Type Department Care Team Description 06/12/2005 Telephone [facility] Tiffany Gonzalez, ERRONEOUS ENTRY [address] [place] [address] [address] [phone] [place] [id number] (Wo rk) Social History Tobacco Use Types [...] on filedocumented in this encounter Care Teams Social Sciences Instructor Relationship Specialty Start Date End Date Tiffany Gonzalez APRN, GAIL PCP - General 01/16/00 02/03/16 [address] [place] [id number] documented as of this encounter
--- OUTSIDE RECORDS SUMMARY | 2021-12-28 14:20 | XMS_ITS | Encounter Summary ---
:1965 Author Organization [facility] Address [address] [place] [address] Care Team Providers Name Role Phone Marcelo Gonzalez APRN, DNP Primary Care Provider Reason for Referral Specialty Diagnoses / Procedures Referred By Contact Refer red To Contact Marcelo Gonzalez APRN, DNP [address] [place] [address] Referral ID Status Reason Start Date Expiration Date Visits Requ ested Visits Authorized Reason for Visit Reason Comments ROUTINE HEALTH MAINTENANCE Encounter Details Date Type Department Care Team Description 06/17/2005 Office Visit [facility] Lisa, PREVENTIVE CARE EXAM (Primar y Dx); [address] Marcelo Still APRN, ASTHMA, UNSPECIFIED; [place] [address] GAIL TOBACCO USE DISORDER; [phone] [address] ALLERGIC RHINITIS NOS; [place] [address] MENSTRUAL DISORDER NOS; [phone] (Wo rk) ENDOMETRIAL POLYP; REFLUX ES OPHAGITIS; POLYCYSTIC KIDN EY, UNSPEC; HYPERTENSION NO S; SCREENING MAL N EOP-BREAST NOS; SCREENING MAL N EOP-CERVIX Social History Tobacco Use Types Packs/Day Years Used Date Smoking Tobacco: Every Day Comments: 1pak/week Alcohol Use Standard Drinks/Week Comments Yes 0 (1 standard drink = 0.6 oz pure alcoho l) rarely Sex Assigned at Date Recorded Not on file documented as of this encounter Last Filed Vital Signs Vital Sign Reading Time Taken Comments Blood Pressure 124/90 06/17/2005 8:20 AM HOME ORGANIZER Pulse 64 06/17/2005 8:20 AM HOME ORGANIZER Temperature - - Respiratory Rate - - Oxygen Saturation - - Inhaled Oxygen Concentration - - Weight 104.3 kg (230 lb) 06/17/2005 8:20 AM HOME ORGANIZER Height 172.7 cm (5' 8) 06/17/2005 8:20 AM HOME ORGANIZER Body Mass Index 34.97 06/17/2005 8:20 AM HOME ORGANIZER documented in this encounter Patient Instructions Patient Somwgpvgunxk80/01/2006 8:20 AM HOME ORGANIZER Please stop at the Clinic Appointment Desk to set up a future mammogram appointment or schedule by calling [phone]. Fiber 40gm/day~ slowly work up to that Start working on treadmill Call me about taking Wellbutrin again for tobacco cessation before August. Calcium intake - 1200mg/ day Add 600mg calcium supplement to your current regimen (2c milk) Calcium citrate pill Viactiv chewable documented in this encounter Progress Notes 06/17/2005 8:20 AM HOME ORGANIZER S> Stephanie Norman is in for routine health maintenance. Current concerns: none. Menses are regular and predictable Sexual activity: monogamous in a stable relationship . Nutrition/diet/weight concerns: trying to eat healthier Present dietary habits: tries to make low fat, high fiber choices most of the time. 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* Social History Main Topics Tobacco Use: Yes Packs/Day: Years: Comment: 1pak/week Alcohol Use: Yes Comment: rarely Drug Use: No Sexual Activity: Yes Partners with: Female Other Topics Concern No BLOOD TRANSFUSIONS No CAFFEINE No OCCUPATIONAL EXPOSURE No HOBBY HAZARD No SLEEP CONCERN No STRESS CONCERN Yes Comment: overwhelming stress at work WEIGHT CONCERN Yes DIET No BACK CARE No EXERCISE Yes BIKE HELMET No SEAT BELT No SELF EXAMS No Patient Active Problem List: VARICELLA UNCOMPLICATED[052.9] REFLUX ESOPHAGITIS[530.11] POLYCYSTIC KIDNEY, UNSPEC[753.12] HYPERTENSION NOS[401.9] MENSTRUAL DISORDER NOS[626.9] ENDOMETRIAL POLYP[621.0] ALLERGIC RHINITIS NOS[477.9] TOBACCO USE DISORDER[305.1] ASTHMA Review of systems include: ENT: no abnormally frequent URIs, no decrease in hearing, no persistently sore throat, RESPIRATORY:no shortness of breath, no cough, no sputum, using albuterol once a month CARDIOVASCULAR: no palpitations, no irregular heart beats, no chest pain, no exertional chest pain or pressure, GASTROINTESTINAL: normal appetite, no dysphagia, no nausea, no abdominal pain, no melena, GENITOURINARY: no dysuria,no frequency, no hematuria, MUSCULOSKELETAL: no weakness, no nocturnal cramping, no muscle pains, SKIN: no rash, no itch, no scaling, no hair changes, no nail changes, NEUROLOGIC: no numbness or tingling of hands, no numbness or tingling of feet, no syncope, PSYCHIATRIC: no sleep disturbances, no anxiety, no depression, HEMATOLOGIC/LYMPHATIC/IMMUNOLOGIC: no fevers, no night sweats, no chills, no weight loss, ENDOCRINE: no cold intolerance, no heat intolerance, no polydypsia, no polyphagia O> General: 40 yr pleasant female who appears her stated age. BP 124/90 Pulse 64 Ht 5' 8 (1.73m) Wt 230 lbs (104.3kg) LMP 06/05/2005 GLUCOSE (mg/dl) Date Value 08/28/2003 88 01/19/2000 84 , CHOLESTEROL (mg/dl) Date Value 06/02/2004 216* 04/05/2001 260* HDL (mg/dl) Date Value 06/02/2004 44 LDL, CALC. (mg/dl) Date Value 06/02/2004 144 TRIGLYCERIDE (mg/dl) Date Value 06/02/2004 142 Date Value 06/02/2004 5.1 ENT: TMs without erythema or edema, pharynx clear Neck: no masses or nodules felt to thyroid, no cervical lymphadenopathy Lungs: clear to auscultation, no wheezes or rales Breasts: Equal symmetry, no masses felt to bilateral breasts, no axillary lymphadenopathy or nippledischarge CV: regular rate and rhythm, normal S1 and S2 without murmur or click Abd: soft, non-tender, no masses, no hepatomegaly or splenomegaly. : On pelvic exam external genitalia without lesions, cervix without purulent discharge or excoriation, Pap obtained without spot bleeding, on bimanual exam no masses to bilateral adnexa, rectovaginal confirms no masses Skin: irritation at follicle sites L thigh pt states from recent [employer] application A> PREVENTATIVE FEMALE EXAM WTIH PAP REFLUX ESOPHAGITIS[530.11] POLYCYSTIC KIDNEY, UNSPEC[753.12] HYPERTENSION NOS[401.9] MENSTRUAL DISORDER NOS[626.9] ENDOMETRIAL POLYP[621.0] ALLERGIC RHINITIS NOS[477.9] TOBACCO USE DISORDER[305.1] ASTHMA, UNSPECIFIED[493.90] P> Labs ordered chol and glucose Will also have urine and other blood tests from bottle capper. Has upcoming appts. with bottle capper and marketing specialist. Above medications renewed x 1yr. Discussed the importance of: Low fat, high fiber diet Encouraged calcium intake = 1200 mg/day in divided doses Mammogram Follow-up in 1 Years for preventive care. See pt instructions for further plan/details. Marcelo Gonzalez NP documented in this encounter Plan of Treatment Scheduled Referrals Name Type Priority Associated Diagnoses Order S chedule Mammo, screening = WITH Referral Routine Screening Mal Ord ered: 06/17/2005 implants (age 50-75 Neop-Breast Nos perform every year; 40-45 yrs perform q1-2y optional) documented as of this encounter Procedures Procedure Name Priority Date/Time Associated Diagnosis Comme nts LIPID PANEL, FAST > Routine 06/17/2005 9:16 AM Preventive Care Exam Results for this 12 HOUR HOME ORGANIZER procedure are i n the results section. PAP TEST, ROUTINE Routine 06/17/2005 12:00 AM Screening Mal Re sults for this HOME ORGANIZER Neop-Cervix procedure are i n the results section. documented in this encounter Results (ABNORMAL) CHOLESTEROL LIPID PANEL FAST >12HR FAST (06/17/2005 9:16 AM HOME ORGANIZER) P athologist Signature Cholesterol 219 (H) <200 mg/dl [facility] Comment: Result should not be interpreted without the patient's history of cardiovascular risk factors. Triglyceride 140 <200 mg/dl [facility] HDL 45 >35 mg/dl [facility] LDL, Calc. 146 mg/dl [facility] Hours Fasting 12 hours [facility] Specimen Anatomical Collection Method Collection Time Receive d Time (Source) Location / / Volume Laterality 06/17/2005 9:16 AM 6 9:19 HOME ORGANIZER AM HOME ORGANIZER Marcelo Gonzalez STEEL FABRICATOR, DNP LAB_1 Performing Organization Address City/State/ZIP Code Phon e Number [facility] [phone] [facility] [address] [address] PAP TEST, ROUTINE [[id number]] (06/17/2005 12:00 AM HOME ORGANIZER) Component Value Ref Test Analysis Performed At [facility] Range Method Time Signature Cytology, Pap (NOTE) [facility] Early Childhood Associate Cytology Report Patient Name: STEPHANIE NORMAN Taken: 06/17/2005 Received: 06/18/2005 Reported: 06/24/2005 Physician(s): MARCELO GONZALEZ ([id number]) ?Source of Specimen Liquid routine Pap, cervical/endocervical: ?Specimen Adequacy ?Satisfactory for evaluation. ??Endocervical component present. ? Final Cytologic Interpretation/Result NEGATIVE FOR INTRAEPITHELIAL LESION OR MALIGNANCY (NILM) ? crw2/06/24/2005 Electronically Signed Out By Elzbieta Thomas, ??CT (ASCP ) Elzbieta Thomas, ??CT (ASCP) ?Pap Smear History ?Date of Last Menstrual Period: ? 06/05/05 ?Contraceptive History: ?Not Stated/Unknown ?Other Clinical Conditions: ?LAST PAP: 06/02/04 NILM HPV reflex testing requested with interpretation of ASCUS ? Specimen (Source) Anatomical Collection Method Collection Time Re ceived Time Location / / Volume Laterality 06/17/2005 06/18/2005 11:4 8 AM HOME ORGANIZER Marcelo Gonzalez APRN, DNP LAB_1 Performing Organization Address City/State/ZIP Code Phon e Number [address] [address] [place], [place] [phone] documented in this encounter Visit Diagnoses Diagnosis Routine general medical examination at [facility] facility - Primary Routine general medical examination at a health care facility Unspecified asthma(493.90) ([facility]) Unspecified asthma Tobacco use disorder ([facility]) Tobacco use disorder Allergic rhinitis, cause unspecified Unspecified disorder of menstruation and other abnormal bleeding from female genital tract Polyp of corpus uteri Reflux esophagitis POLYCYSTIC KIDNEY, UNSPEC Polycystic kidney, unspecified type Unspecified essential hypertension ([facility]) Unspecified essential hypertension Breast screening, unspecified Screening for malignant neoplasm of the cervix documented in this encounter Care Teams Wastewater Treatment Plant Instructor Relationship Specialty Start Date End Date Marcelo Gonzalez APRN, DNP PCP - General 01/16/00 02/03/16 [address] [place] [address] documented as of this encounter
--- OUTSIDE RECORDS SUMMARY | 2021-12-28 14:20 | XMS_ITS | Encounter Summary ---
:1965 Author Organization [facility] Address [address] [place] [address] Care Team Providers Name Role Phone Tiffany Gonzalez APRN, DNP Primary Care Provider [phone] Reason for Visit Reason Comments ALLERGY, SHOTS Encounter Details Date Type Department Care Team Description 08/11/2005 Office Visit [facility] 401 [address] NSITIZATION TO ALLERGENS Allergy Clinic 401 [place] [address] Social History Tobacco Use Types Packs/Day Years Used Date Smoking Tobacco: Every Day Comments: 1pak/week Alcohol Use Standard Drinks/Week Comments Yes 0 (1 standard drink = 0.6 oz pure alcoho l) rarely Sex Assigned at Date Recorded Not on file documented as of this encounter Progress Notes 08/11/2005 12:50 PM CDT S: Stephanie Nargis Emerson here [...] How many allergy injections given this date? 2 A: Patient meets criteria for allergy injections? YES P: See allergy shot record for full documentation of allergy shot(s) given today Nelly Lduwig RN 1:10 PM documented in this encounter Plan of Treatment Not on filedocumented as of this encounter Visit Diagnoses Diagnosis Need for desensitization to allergens documented in this encounter Care Teams Safety Analyst Relationship Specialty Start Date End Date Tiffany Gonzalez APRN, DNP PCP - General 01/16/00 02/03/16 [address] [place] [id number] documented as of this encounter
--- OUTSIDE RECORDS SUMMARY | 2021-12-28 14:20 | XMS_ITS | Encounter Summary ---
:1965 Author Organization [facility] Address [address] [place] [address] Care Team Providers Name Role Phone Tiffany Gonzalez APRN, GAIL Primary Care Provider [phone] Reason for Visit Reason Comments ALLERGY SHOT Encounter Details Date Type Department Care Team Description 07/27/2005 Office Visit [facility]ty Center 401 [address] NSITIZATION TO ALLERGENS Allergy Clinic [address] [place] [address] Social History Tobacco Use Types Packs/Day Years Used Date Smoking Tobacco: Every Day Comments: 1pak/week Alcohol Use Standard Drinks/Week Comments Yes 0 (1 standard drink = 0.6 oz pure alcoho l) rarely Sex Assigned at Date Recorded Not on file documented as of this encounter Progress Notes 07/27/2005 3:50 PM CDT S: Stephanie Norman here [...] allergy shot(s) given today Celsa Meredith RN 3:45 PM documented in this encounter Plan of Treatment Not on filedocumented as of this encounter Visit Diagnoses Diagnosis Need for desensitization to allergens documented in this encounter Care Teams Swage Toolsetter Relationship Specialty Start Date End Date Tiffany Gonzalez APRN, DNP PCP - General 01/16/00 02/03/16 [address] [place] [id number] documented as of this encounter
--- OUTSIDE RECORDS SUMMARY | 2021-12-28 14:20 | XMS_ITS | Encounter Summary ---
:1965 Author Organization [employer] Address [address] [place] [address] Care Team Providers Name Role Phone Marcelo Gonzalez APRN, GAIL Primary Care Provider [phone] Reason for Visit Reason Onset Date Comments Refill 06/12/2005 Encounter Details Date Type Department Care Team Description 06/12/2005 Refill [facility] [place] Marcelo Gonzalez, Refill [address] [place] [address] [address] [facility] [phone] [place], [place] [id number] (Wo rk) Social History Tobacco Use Types Packs/Day Years Used Date Smoking Tobacco: Every Day Comments: 1pac/week Alcohol Use Standard Drinks/Week Comments Yes 0 (1 standard drink = 0.6 oz pure alcoho l) rarely Sex Assigned at Date Recorded Not on file documented as of this encounter Nursing Notes 06/12/2005 11:59 PM RESIDENTIAL MENTAL HEALTH WORKER Approved Prescriptions: Disp Refills LISINOPRIL 10 MG OR TABS 90 0 Si TABLET DAILY Authorizing Provider: MARCELO GONZALEZ Ordering User: RYLEE URENA >> ZULMA Carlisle Jun 12, 2005 11:46 AM Last fill on [id number] for a quantity of 90 documented in this encounter Plan of Treatment Not on filedocumented as of this encounter Visit Diagnoses Not on filedocumented in this encounter Care Teams Sand Screener Relationship Specialty Start Date End Date Marcelo Gonzalez APRN, DNP PCP - General 01/16/00 02/03/16 [address] [id number] documented as of this encounter
--- OUTSIDE RECORDS SUMMARY | 2021-12-28 14:20 | XMS_ITS | Encounter Summary ---
:1965 Author Organization [employer] Address [address] [place] [address] Care Team Providers Name Role Phone Tiffany Gonzalez APRN, DNP Primary Care Provider [phone] Reason for Visit Reason Comments CONSULT Encounter Details Date Type Department Care Team Description 06/25/2005 Office Visit [facility] Uvaldo Fraire MD ALLERGIC RHINITIS NEC; [address] [facility] [address] WHEE[place]; [address] [place], [place] TOBACCO USE DISORDER; [place] [address] [facility]ER[facility] [phone] Social History Tobacco Use Types Packs/Day Years Used Date Smoking Tobacco: Every Day Comments: 1pak/week Alcohol Use Standard Drinks/Week Comments Yes 0 (1 standard drink = 0.6 oz pure alcoho l) rarely Sex Assigned at Date Recorded Not on file documented as of this encounter Last Filed Vital Signs Vital Sign Reading Time Taken Comments Blood Pressure 114/74 06/25/2005 9:30 AM CHAIR MECHANIC Pulse 60 06/25/2005 9:30 AM CHAIR MECHANIC Temperature - - Respiratory Rate - - Oxygen Saturation - - Inhaled Oxygen Concentration - - Weight 103.4 kg (228 lb) 06/25/2005 9:30 AM CHAIR MECHANIC Height 171.5 cm (5' 7.5) 06/25/2005 9:30 AM CHAIR MECHANIC Body Mass Index 35.18 06/25/2005 9:30 AM CHAIR MECHANIC documented in this encounter Progress Notes Tejinder Fraire 06/25/2005 12:00 AM CHAIR MECHANIC R MECHANIC Tejinder Fraire - 06/25/2005 12:00 AM CHAIR MECHANIC R MECHANIC documented in this encounter Consult Notes Tejinder Fraire - 06/25/2005 12:00 AM CSTThe patient is 40 years old, sent by Tiffany Gonzalez, for allergy consultation, evaluation. Starting last spring, she experienced sneezing, nasal congestion, drainage, dry and itchy nose. Claritin and Nasonex pretty well compensated symptoms. She has been off of them for 2 months, but as of 3-4 days ago she is having a recurrence of symptoms. She has not had prior allergy testing. She has the history of dyspnea, possibly some wheezing with sports such as softball, and at times when it is smoggy, so she had an albuterol inhaler to use as needed. 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 HISTORY OF A HIVEY RASH FROM PENICILLIN / AMOXICILLIN, STOMACH PAIN FROM ERYTHROMYCIN, AND TOPICAL ADVERSE REACTIVITY TO NEOMYCIN. FAMILY HISTORY: Mother at 44 of breast cancer, had hay fever symptoms, as do 2 siblings. Resides with a female partner in a 10-year-old house, where she has resided for that period of time. Forced-air heating, central air conditioning. Carpeting in bedroom, nonfeather pillow. Two dogs, one cat. She does not feel that she reacts adversely to them. Smokes 3 cigarettes per day, is trying to work on quitting. She has a child, has no plans for future pregnancies, in reference to medications and so on. Takes ranitidine for GE reflux disease, it works fairly well. Lisinopril for hypertension. Calcium and vitamin D. Multivitamin. 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 Some stiffness of her joints. No stinging insect allergy. Wears eyeglasses with acceptable visual acuity. Dry skin. Past history of migraines, recently infrequently. No purulent drainage. Denies depression or anxiety, or exertional chest pains. Snores, some daytime fatigue, but no observed sleep apnea. No thyroid disease, swollen glands or dysuria. OBJECTIVE DATA: Blood pressure 114/74. Pulse 60. Height 67-1/2 inches. Weight 228 pounds. Physical exam: She appears well. Pleasant and cooperative. Ears: TMs without fluid or erythema. Eyes: Conjunctiva clear. Nose: Mild mucosal congestion, moist. No purulent drainage, polyps, epistaxis or crusting. Oropharynx: Without erythema or drainage. No head or neck lymphadenopathy. Lungs: Without rales, rhonchi, wheezes or rubs. Heart: Regular rate and rhythm. No audible murmur. No palpable hepatosplenomegaly. No pitting pedal edema. No digital clubbing or cyanosis. Oriented x3. Spirometry was ordered before and after 2 inhalations of albuterol. Baseline FVC 4.53 (3.79), 119%. FEV1 4.11 (3.14), 130%. Values and tracing reviewed, see spirometry shingle. After 2 inhalations of albuterol: No clinically significant change, FVC 4.37, FEV1 4.01. Skin tests as ordered by puncture method: Negative to cat, dog, feather mix, house dust mites, cockroach mix, trees, grasses, short and giant ragweed, 3 other weeds, 5 molds with appropriately reactive histamine control. Additional intradermals: Positive to house dust mites DF and DP, Helminthosporium, at 100 AU/cc, 1:1000 respectively, negative to cat at 100 BAU/cc, dog, maple, elm, cottonwood, birch, oak, stephanie, grass mix, ragweed mix, Alternaria, Cladosporium each at the concentration of 1:1000. ASSESSMENT and PLAN: Allergic rhinitis. Dyspnea, wheezing. History is consistent with Helminthosporium, dust mite allergy, Helminthosporium being the seasonal allergen. We discussed environmental measures of potential benefit. We discussed medications, the loratadine, Nasonex, which she will resume. Potential adverse effects reviewed. We also discussed allergy immunotherapy injections, potential benefits, potential limitations, potential adverse reactions including discussing in lay terms rare fatal anaphylaxis or unpredictable reactions, necessary waiting time after each allergy injection, usual duration of therapy. She will make sure that her skein washer has no issues with them, prior to starting it. As I anticipate there will not be any, I will send through the extract. She will let me know if there are. Follow up visit to be planned for 6 months after starting the allergy injections. Questions answered throughout. She is in understanding and agreement with treatment plan. She went through the allergy injection handouts, immunotherapy treatment consent form was signed, witnessed, will forward to be scanned into [facility]. She will receive her injections here. FINAL DIAGNOSES: Allergic rhinitis. Wheezing. ADDENDUM: I strongly encouraged her to work to discontinue smoking entirely. DICTATED BUT NOT REVIEWED P cc: Tiffany Gonzalez, CAMILA - CO R MECHANIC documented in this encounter Nursing Notes 06/25/2005 9:30 AM CST >> ANIKET LUDWIG 06/25/2005 11:50 am Consent for immunotherapy signed for injections at [facility]. Patient information sheet for immunotherapy given and explained to patient including possible reactions and wait time. Completed per physician's orders. Aniket Ludwig RN 11:49 AM 06/25/2005 >> ANIKET LUDWIG 06/25/2005 10:39 am 2 puffs of Albuterol given by mouth to patient with post spirometry done. Completed per physician's orders. Aniket Ludwig RN 10:20 AM 06/25/2005 Allergy skin testing done Completed per physician's orders. Aniket Ludwig RN 10:20 AM 06/25/2005 >> ANIKET LUDWIG 06/25/2005 9:54 am Stephanie Norman is here today for Allergy Department visit. Phone #: [phone] (home) [phone] (work). Spirometry/Peakflow done-YES. Manager Research Development? no Current outpatient prescriptions NASONEX 50MCG/ACT NASAL SPRAY, Inhale two sprays in each nostril once daily., Disp: 1, Rfl: 11-takesseasonally LISINOPRIL 10 MG OR TABS, 1 TABLET DAILY, Disp: 90, Rfl: 3 ZANTAC 150 MG OR TABS, 1 po bid, Disp: 3mos, Rfl: 3 CLARITIN 10 MG OR TABS, 1 TABLET DAILY, Disp: 30, Rfl: 0-takes seasonally ALBUTEROL 90 MCG/ACT IN AERS, Inhale 1 or 2 puffs by mouth every 4 to 6 hours as needed for wheezing, chest tightness or shortness of breath, Disp: 1 CALCIUM + D 600MG-200UNIT ORAL TABS, one tab daily, Disp: 30, Rfl: 99 FOLIC ACID 1 MG OR TABS, 1 TABLET DAILY, Disp: 30, Rfl: 99 MULTIVITAMINS W/IRON ORAL SOLN (DROPS), one daily, Disp: 30, Rfl: 99 Aniket Ludwig RN, 9:53 AM, 06/25/2005 documented in this encounter Plan of Treatment Not on filedocumented as of this encounter Visit Diagnoses Diagnosis Allergic rhinitis due to other allergen Wheezing Tobacco use disorder (HRC) Tobacco use disorder Other allergy, other than to medicinal a gents documented in this encounter Care Teams Electroneurodiagnostic Technologist Relationship Specialty Start Date End Date Tiffany Gonzalez APRN, DNP PCP - General 01/16/00 02/03/16 [address] [id number] documented as of this encounter
--- OUTSIDE RECORDS SUMMARY | 2021-12-28 14:21 | XMS_ITS | Encounter Summary ---
:1965 Author Organization [facility] Address [address] [place] [address] Care Team Providers Name Role Phone Tiffany Gonzalez FRONT END ARCHITECT, GAIL Primary Care Provider [phone] Encounter Details Date Type Department Care Team Description 01/10/2004 Orders Only [place] Tiffany Gonzalez, Laboratory FRONT END ARCHITECT, DNP [address] [place] [address] (Wo rk) Social History Tobacco Use [...] Priority Date/Time Associated Diagnosis Comme nts URINE CULTURE Routine 01/10/2004 3:42 PM Results for this CDT procedure are i n the results section . documented in this encounter Results URINE CULTURE (01/10/2004 3:42 PM CDT) Component Value Ref Test Analysis Performed At [facility] Method Time Signature Specimen Urine [facility] Description Special None [facility] Requests Culture Mixed Carmen [facility] Consisting Predominantly of Nonpathogens Report Status Final [id number] [facility] E[facility] Specimen Anatomical Collection Method Collection Time Receive d Time (Source) Location / / Volume Laterality 01/10/2004 3:42 PM 4 4:39 CDT PM CDT Tiffany Gonzalez APRN, DNP LAB_1 Performing Organization Address City/State/ZIP Code Phon e Number [facility] [phone] [address] documented in this encounter Visit Diagnoses Not on filedocumented in this encounter Care Teams Post Partum Nurse Relationship Specialty Start Date End Date Tiffany Gonzalez APRN, DNP PCP - General 01/16/00 02/03/16 [address] [place] [id number] documented as of this encounter
--- OUTSIDE RECORDS SUMMARY | 2021-12-28 14:21 | XMS_ITS | Encounter Summary ---
:1965 Author Organization [email or web address] Address [address] [place] [address] Care Team Providers Name Role Phone Tiffany Gonzalez APRN, GAIL Primary Care Provider Reason for Visit Reason Comments Sore Throat since 3 weeks ago, had negat clyde RSS 09/02/2004 MEDICATION CHECK Zantac Encounter Details Date Type Department Care Team Description 09/23/2004 Office Visit [facility] Lisa, CHRONIC PHARYNGITIS (Primary Dx); [address] Tiffany Still APRN, POLYCYSTIC KIDNEY, [place] [address] [facility] [phone] [address] [place] [address] (Wo rk) Social History Tobacco Use Types Packs/Day Years Used Date Smoking Tobacco: Former Comments: 1pac/week Alcohol Use Standard Drinks/Week Comments Yes 0 (1 standard drink = 0.6 oz pure alcoho l) rarely Sex Assigned at Date Recorded Not on file documented as of this encounter Last Filed Vital Signs Vital Sign Reading Time Taken Comments Blood Pressure 116/74 09/23/2004 2:29 PM CDT Pulse 64 09/23/2004 2:29 PM CDT Temperature 37 ??C (98.6 ??F) 09/23/2004 2:29 PM CDT Respiratory Rate - - Oxygen Saturation - - Inhaled Oxygen Concentration - - Weight - - Height - - Body Mass Index - - documented in this encounter Patient Instructions Patient Kzliowkeagov70/07/2005 2:20 PM CDT Make f/u appt for chronic pharyngitis 2wks Go to lab Go to pharmacy documented in this encounter Progress Notes 09/23/2004 2:20 PM CDT This office note has been dictated. Tiffany Gonzalez - 09/23/2004 12:00 AM [id number] female presents complaining of a sore throat for almost 1 month. SUBJECTIVE: Was seen earlier last month for the sore throat that she had had for at least a couple of days. Throat culture was negative at that time. Sore throat has persisted. It is associated with nasal congestion and a feeling of a postnasal drip. She is also coughing and doing this mostly in the morning. She denies any fever, shakes or chills. Denies bodyaches or increased fatigue. She feels that the back of the throat is swollen and she wonders if she has seen some red lumps there. Patient is currently on Zantac 150 mg b.i.d., lisinopril 10 mg once a day and also calcium 600 mg 1 tab, folic acid 1 mg once a day. PAST MEDICAL HISTORY: Reflux, polycystic kidney disease, hypertension, menstrual disorder. REVIEW OF SYSTEMS: Feels that the heartburn has been worse over the past month. Denies heartburn waking her at night but she has talked about a dry cough during the night. She does have nasal congestion and a postnasal drip, which is new for her. No purulent drainage. Has not started any recent new medications. Was seen by Nephrology in July 2003. At the time Dr. Esparza had seen her in follow-up. She has a history of autosomal dominant polycystic kidney disease with history of a cyst rupture and gross hematuria that resolved. She has a father that had to have a kidney transplant. Patient states that she was put on sodium bicarb by Dr. Esparza but wasn't sure how long she should be taking it. I don't see any documentation of those recommendations by Dr. Esparza in review. OBJECTIVE: Pleasant overweight female in no acute distress. Vitals per nursing notes. Denies pain to palpation of epigastric site. Ears, nose and throat unremarkable. No lymphadenopathy to preauricular, tonsillar, anterior or posterior cervical chain nodes. Conjunctivae clear. ASSESSMENT: Pharyngitis chronic. 2 Polycystic kidney disease. PLAN: 1. Will trial Rhinocort AQ 1 spray each nostril once a day for the next 2 weeks. She will follow up in 2 weeks. If symptoms not improved will consider reflux as a reason for the pharyngitis and cough. Patient is on lisinopril but has been on that for a long time and with her past medical history would prefer to keep that. Would still consider lisinopril as being a cause for this if other causes can be ruled out. Discussed above with patient. Will also obtain kidney function and urinalysis due to her polycystic kidney disease. Patient to call grey goods tester. If she needs a referral from me to go in and visit with him then I would do that. Follow up in 2 weeks for reevaluation of symptoms. P cc: documented in this encounter Nursing Notes 09/23/2004 2:20 PM CDT >> THEE URBANO 09/23/2004 2:30 pm throat is getting red and some swelling, coughing a lot mostly dry. TREY Edwards documented in this encounter Plan of Treatment Not on filedocumented as of this encounter Results (ABNORMAL) UA MICRO IF (01/15/2005 3:42 PM CDT) [facility] [employer] Method Time Signature Appr Pale Yel [facility] Appr Clear [facility] Sp Gr <1.005 (L) 1.005 - [facility] 1.030 Leuk Neg [place] Nitr Neg [facility] pH 6.0 4.5 - 8.0 [facility] Prot Neg [place] mg/dl [facility] Gluc Neg [facility] mg/dl [facility] Ket Neg [facility] mg/dl [facility] Urob 0.2 0.2 - 1.0 [facility] EU/dl Bili Neg [place] Blood Neg [facility] Comment Micro Not [facility] Indicated Specimen Anatomical Collection Method Collection Time Receive d Time (Source) Location / / Volume Laterality 01/15/2005 3:42 PM 5 3:43 CDT PM CDT Tiffany Gonzalez APRN, DNP LAB_1 Performing Organization Address [facility] Phon e Number [facility] [phone] [address] (ABNORMAL) CREATININE / GFR (01/15/2005 3:42 PM CDT) Patholo gist Method Time Signature Creatinine 1.4 (H) 0.6 - 1.3 [facility] mg/dl GFR, Estimated 44.3 (L) >60 [facility] ml/min/1. 73m2 GFR, Est., If 53.6 (L) >60 [facility] Black ml/min/1. 73m2 Specimen Anatomical Collection Method Collection Time Receive d Time (Source) Location / / Volume Laterality 01/15/2005 3:42 PM 5 3:43 CDT PM CDT Tiffany Gonzalez APRN, DNP LAB_1 Performing Organization Address [facility] Phon e Number [facility] [phone] [address] (ABNORMAL) UA MICRO IF (09/23/2004 3:16 PM CDT) P athologist Signature Appr Yellow [facility] Appr Clear [facility] Sp Gr 1.010 1.005 - [facility] 1.030 Leuk Sml (A) [place] Nitr Neg [place] pH 6.5 4.5 - 8.0 [facility] Prot Neg [place] mg/dl [facility] Gluc Neg [place] mg/dl [facility] Ket Neg [place] mg/dl [facility] Urob 0.2 0.2 - 1.0 [facility] EU/dl Bili Neg [place] [facility] Blood Neg [place] [facility] Specimen Anatomical Collection Method Collection Time Receive d Time (Source) Location / / Volume Laterality 09/23/2004 3:16 PM 5 3:17 CDT PM CDT Tiffany Gonzalez APRN, DNP LAB_1 Performing Organization Address [facility] Phon e Number [facility] [phone] [facility] [address] [phone] (ABNORMAL) CREATININE / GFR (09/23/2004 3:16 PM CDT) [employer] Method Time Signature Creatinine 1.4 (H) 0.6 - 1.3 [facility] mg/dl GFR, Estimated 44.3 (L) >60 [facility] ml/min/1. 73m2 GFR, Est., If 53.6 (L) >60 [facility] Black ml/min/1. 73m2 Specimen Anatomical Collection Method Collection Time Receive d Time (Source) Location / / Volume Laterality 09/23/2004 3:16 PM 5 3:17 CDT PM CDT Tiffany Gonzalez APRN, DNP LAB_1 Performing Organization Address City/State/ZIP Code Phon e Number [facility] [phone] [phone] documented in this encounter Visit Diagnoses Diagnosis Chronic pharyngitis - Primary Polycystic kidney, unspecified type documented in this encounter Care Teams Energy Conservation Technician Relationship Specialty Start Date End Date Tiffany Gonzalez APRN, DNP PCP - General 01/16/00 02/03/16 [address] [place] [id number] documented as of this encounter
--- OUTSIDE RECORDS SUMMARY | 2021-12-28 14:21 | XMS_ITS | Encounter Summary ---
:1965 Author Organization [facility] Address [address] [place] [address] Care Team Providers Name Role Phone Tiffany Gonzalez APRN, DNP Primary Care Provider Reason for Visit Reason Comments PREOPERATIVE VISIT Encounter Details Date Type Department Care Team Description 03/27/2004 Office Visit [facility] Virgilio Barragan PRE OP EXAM OTHER SPECIFIED (Primary Dx); Family Practice MD Autumn HYPERTENSION NOS; [address] [place] [id number] [phone] Social History Tobacco Use Types Packs/Day Years Used Date Smoking Tobacco: Former Comments: 1pac/week Alcohol Use Standard Drinks/Week Comments Yes 0 (1 standard drink = 0.6 oz pure alcoho l) rarely Sex Assigned at Date Recorded Not on file documented as of this encounter Last Filed Vital Signs Vital Sign Reading Time Taken Comments Blood Pressure 120/88 03/27/2004 9:11 AM SISAL OPERATOR Pulse 76 03/27/2004 9:11 AM SISAL OPERATOR Temperature - - Respiratory Rate - - Oxygen Saturation - - Inhaled Oxygen Concentration - - Weight 100.7 kg (222 lb) 03/27/2004 9:11 AM SISAL OPERATOR Height 171.5 cm (5' 7.5) 03/27/2004 9:11 AM SISAL OPERATOR Body Mass Index 34.26 03/27/2004 9:11 AM SISAL OPERATOR documented in this encounter Progress Notes 03/27/2004 9:00 AM SISAL OPERATOR PRE-OP QUESTIONS: Tightening or pressure in chest with activity: no. Swelling of feet or ankles at times: no. Wakes at night with shortness of breath : no. Able to sleep flat at night: Yes. Troubled by shortness of breath when: Walking on the level: no. Climbing a flight of stairs: no. Sleeping at night: no. Get pains in the calves of the legs when walking: no. Chest ever sound wheezy or whistling: no. Cough, runny nose, or cold symptoms: Now: no In the last two weeks: no Have a chronic cough: no. Family member with serious bleeding problem: no. Taken any aspirin (or products containing aspirin) in the last two weeks: no. Problem with anemia or been told to take iron pills: yes. You or any of your relatives ever have a problem with anesthesia: no. Additional Questions: NONE Stephanie Norman, medical record [id number], is a 39 yr female who is here for evaluation for fitness for surgery. She is scheduled for surgery at [facility] on 03/31/[address] Mondragon. HPI: Assoc signs/sumptoms 6 months ago breakthru bleeding, Context Before had had normal periods, ,Location Vaginal bleeding, No bleeding last mo. Energy decreased. no n/v/d, af, amount less than normal period. Social non smoker since March 12 2004 PMHx: Polycystic Kidney Disease with HTN Meds: Lisinopril and Ranitidine Her primary physician is Tiffany Gonzalez NP. Procedure: D and C Anticipated Anesthesia: general Allergies: Amoxicillin , Penicillins , Neomycin Tobacco Use: Quit Packs/Day: Years: Comment: 1pac/week Alcohol Use: Yes Comment: rarely There is no previous medical history on file. There is no previous surgical history on file. Patient Active Problem List: VARICELLA UNCOMPLICATED[052.9] REFLUX ESOPHAGITIS[530.11] POLYCYSTIC KIDNEY, UNSPEC[753.12] HYPERTENSION NOS[401.9] MENSTRUAL DISORDER NOS[626.9] ENDOMETRIAL POLYP[621.0] Current outpatient prescriptions: SODIUM BICARBONATE 650MG ORAL TABS,1 tab BID,Disp: ,Rfl: 0 CALCIUM + D 600MG-200UNIT ORAL TABS,one tab daily,Disp: 30,Rfl: 99 FOLIC ACID 1MG ORAL TABS,1 TABLET DAILY,Disp: 30,Rfl: 99 MULTIVITAMINS W/IRON ORAL SOLN (DROPS),one daily,Disp: 30,Rfl: 99 LISINOPRIL (PRINIVIL) 10MG ORAL TABS,1 TABLET DAILY,Disp: 3mos,Rfl: 3 ZANTAC 150MG ORAL TABS,1 po bid,Disp: 1 month ,Rfl: 11 PHYSICAL EXAMINATION The patient appears healthy, in no acute distress and mobile without assistance Vital Signs: BP 120/88 Pulse 76 Ht 5' 7.5 (1.72m) Wt 222 lbs (100.7kg) Neck: supple, no lymphadenopathy, no thyromegaly and full range of motion Heart: regular rate and rhythm, normal S1 and S2 without murmur or click Lungs: clear to auscultation, no wheezes, no crackles Abdomen: Abdomen soft, non-tender. BS normal. No masses, organomegaly Edema: no EKG: normal sinus rhythm LAB: See attached. hgb 13.6 Stephanie Norman a 39 yr female is Fit for surgery. No major medical issues for planned procedure fora low risk surgical procedure. Recommended that Stephanie Norman hold their usual medications the morning of surgery Signature: Date: Virgilio Barragan MD documented in this encounter Plan of Treatment Not on filedocumented as of this encounter Procedures Procedure Name Priority Date/Time Associated Diagnosis Comme nts HEMOGLOBIN, BLOOD Routine 03/27/2004 9:58 AM Hypertension Nos Results for this SISAL OPERATOR procedure are i n the results section. POTASSIUM Routine 03/27/2004 9:58 AM Hypertension Nos Resul ts for this SISAL OPERATOR procedure are i n the results section. ECG TRACING Routine 03/27/2004 9:20 AM Hypertension Nos Resul ts for this SISAL OPERATOR procedure are i n the results section. documented in this encounter Results HEMOGLOBIN, BLOOD (03/27/2004 9:58 AM SISAL OPERATOR) athologist Signature Hemoglobin 13.2 12.0 - 16.0 [facility] g/dl Specimen Anatomical Collection Method Collection Time Receive d Time (Source) Location / / Volume Laterality 03/27/2004 9:58 AM 4 9:59 SISAL OPERATOR AM SISAL OPERATOR Virgilio Barragan MD LAB_1 Performing Organization Address [facility] Phon e Number [facility] [phone] [phone] POTASSIUM (03/27/2004 9:58 AM SISAL OPERATOR) athologist Signature Potassium 4.8 3.5 - 5.3 [facility] mmol/L Specimen Anatomical Collection Method Collection Time Receive d Time (Source) Location / / Volume Laterality 03/27/2004 9:58 AM 4 9:59 SISAL OPERATOR AM SISAL OPERATOR Virgilio Barragan MD LAB_1 Performing Organization Address [facility] Phon e Number [facility] [phone] [phone] EKG TRACING (03/27/2004 9:20 AM SISAL OPERATOR) [facility] gist Method Time Signature EKG See Separate [facility] Report Specimen Anatomical Collection Method Collection Time Receive d Time (Source) Location / / Volume Laterality 03/27/2004 9:20 AM 4 9:22 SISAL OPERATOR AM SISAL OPERATOR Virgilio Barragan MD EKG Performing Organization Address [facility] Phon e Number [facility] [phone] [phone] documented in this encounter Visit Diagnoses Diagnosis Other specified pre-operative examinatio n - Primary Unspecified essential hypertension (HRC) Unspecified essential hypertension Polyp of corpus uteri documented in this encounter Care Teams Show Design Supervisor Relationship Specialty Start Date End Date Tiffany Gonzalez APRN, DNP PCP - General 01/16/00 02/03/16 [address] [place] [id number] documented as of this encounter
--- OUTSIDE RECORDS SUMMARY | 2021-12-28 14:21 | XMS_ITS | Encounter Summary ---
:1965 Author Organization [facility] Address [address] [place] [address] Care Team Providers Name Role Phone Tiffany Gonzalez APRN, GAIL Primary Care Provider [phone] Encounter Details Date Type Department Care Team Description 03/04/2004 Telephone [facility] and Dinorah Mondragon MD Gynecology [address] [place], [place] [address] Social History Tobacco Use Types Packs/Day Years Used Date Smoking Tobacco: Every Day Comments: 1pac/week Alcohol Use Standard Drinks/Week Comments Yes 0 (1 standard drink = 0.6 oz pure alcoho l) rarely Sex Assigned at Date Recorded Not on file documented as of this encounter Progress Notes Dinorah Mondragon - 03/04/2004 12:00 AM BUTTERMILK DRIER OPERATOR ERMILK DRIER OPERATOR documented in this encounter Plan of Treatment Not on filedocumented as of this encounter Visit Diagnoses Not on filedocumented in this encounter Care Teams Piano Professor Relationship Specialty Start Date End Date Tiffany Gonzalez APRN, GAIL PCP - General 01/16/00 02/03/16 [address] [place] [id number] documented as of this encounter
--- OUTSIDE RECORDS SUMMARY | 2021-12-28 14:21 | XMS_ITS | Encounter Summary ---
:1965 Author Organization [facility] Address [address] [place] [address] Care Team Providers Name Role Phone Tiffany Gonzalez APRN, GAIL Primary Care Provider Encounter Details Date Type Department Care Team Description 06/11/2003 Correspondence None Unknown, Physici an parpi [address] [place], [place] [address] (Wo rk) Social History Tobacco Use Types Packs/Day Years Used Date Smoking Tobacco: Every Day Comments: 2 cigs/week Alcohol Use Standard Drinks/Week Comments Yes 0 (1 standard drink = 0.6 oz pure alcoho l) rarely Sex Assigned at Date Recorded Not on file documented as of this encounter Progress Notes Unknown, Physician - 06/11/2003 12:00 AM PHYSICAL EDUCATION DEPARTMENT CHAIR documented in this encounter Plan of Treatment Not on filedocumented as of this encounter Visit Diagnoses Not on filedocumented in this encounter Care Teams Farrowing Worker Relationship Specialty Start Date End Date Tiffany Gonzalez APRN, GAIL PCP - General 01/16/00 02/03/16 [address] [place] [id number] documented as of this encounter
--- OUTSIDE RECORDS SUMMARY | 2021-12-28 14:21 | XMS_ITS | Encounter Summary ---
:1965 Author Organization [facility] Address [address] [place] [address] Care Team Providers Name Role Phone Tiffany Gonzalez APRN, DNP Primary Care Provider Encounter Details Date Type Department Care Team Description 03/31/2004 [facility] Rancho Curtis MD Social History Tobacco Use Types Packs/Day Years Used Date Smoking Tobacco: Former Comments: 1pac/week Alcohol Use Standard Drinks/Week Comments Yes 0 (1 standard drink = 0.6 oz pure alcoho l) rarely Sex Assigned at Date Recorded Not on file documented as of this encounter Procedure Notes Rancho Curtis - 03/31/2004 12:00 AM PALLIATIVE CARE PHYSICIAN DATE OF SURGERY: 03/31/2004 STAFF SURGEON: Rancho Curtis MD PREOPERATIVE DIAGNOSIS: POSTOPERATIVE DIAGNOSIS: NAME OF OPERATION: Hysteroscopy, D&C. ANESTHESIA: General with paracervical block. COMPLICATIONS: None. FLUID DEFICIT: 90 cc of saline. INDICATIONS FOR SURGERY: The patient is a 39-year-old para 0-0-0-0 with 6 months of midcycle bleeding lasting approximately three days. Menses are regular. Last Pap smear in May 2003 was negative. Pelvic ultrasound showed 4 small endometrial polyps, all less than 1-cm in length. She has a history of benign cervical polyp removed in 2001. OPERATIVE PROCEDURE: The patient was taken to the operating room. Under general endotracheal anesthesia, she was placed in the modified dorsal lithotomy position and the perineum was prepped and draped for vaginal surgery. Bimanual examination found to uterus to be anterior, firm, mobile and smooth. Speculum was placed in the vagina. Paracervical block placed using 12 cc of 0.25% Marcaine. Double tooth tenaculum was placed on the anterior lip of the cervix. The cervix incidentally had a very large eversion and bled very easily on contact with gauze sponge or any touching whatsoever. The cervix was dilated to 6 mm with Gayle dilators and a 5.5-mm diagnostic hysteroscope was introduced into the endometrial cavity. Saline was used for uterine distention. The fundus of the uterus was normal. Both ostia were seen without difficulty. Four polypoid projections consistent with findings at ultrasound were seen along the durand of the uterus. At this point, the hysteroscope was removed and a D&C was carried out first with a #6 rocket vacurette followed by a medium sized serrated metal curet followed again by rocket vacurette. Re-inspection of the endometrial cavity showed that all the polyps had been removed. This was consistent with a gross inspection of the tissue removed by the rocket vacurette. At this point, the hysteroscope was removed. The tenaculum site was bleeding slightly and a single figure-of-X suture using 0 Vicryl sutures was placed with good hemostasis. The patient was then recalled from anesthesia and transferred to the Post Anesthesia Care Unit in satisfactory condition. sttp Dictated: 03/31/2004 11:20:16 Rancho Curtis MD Transcribed: 04/01/2004 10:35:02 Doc #: [id number] cc: Davi Esparza MD, Referring Physician DO NOT SIGN UNLESS PRESENT FOR PROCEDURE I attest that I was present for and participated in the malhotra portions of this procedure(s) in compliance with the Health Care Financing Administration Teaching Physician Guidelines. Signed Date [facility] Staff Physician 1 Page 1 Patient Name: STEPHANIE NORMAN Visit Date: 03/31/2004 OUTPATIENT OPERATIVE REPORT CONFIDENTIAL MEDICAL RECORD [address] [phone] Page 1 Patient: STEPHANIE NORMAN Location: [facility] HPN: [id number] Date of : 1965 Visit Date: 03/31/2004 OUTPATIENT OPERATIVE REPORT IATIVE CARE PHYSICIAN documented in this encounter Plan of Treatment Not on filedocumented as of this encounter Procedures Procedure Name Priority Date/Time Associated Diagnosis Comme nts SURGICAL PATH Routine 03/31/2004 12:00 AM Results for this PALLIATIVE CARE PHYSICIAN procedure are i n the results section . documented in this encounter Results SURGICAL PATH (03/31/2004 12:00 AM PALLIATIVE CARE PHYSICIAN) [facility] gist Method Time Signature 9911 (NOTE) [facility] Final Report Patient Name: STEPHANIE NORMAN Taken: 03/31/2004 Received: 03/31/2004 Reported: 04/01/2004 Physician(s): RANCHO CURTIS ([id number]) ? Final Pathologic Diagnosis Endometrial curettings ??Endometrial polyp. ?? /04/01/2004 Electronically Signed Out By ? Sanjeev Jones, ?? (312) Procedures/Addenda Clinical History Intermenstrual bleeding Gross Description The specimen is labeled endometrial curettings and polyp. Th e specimen consists of 3 cm x 3 cm x 1 cm in aggregate of red brown to black tissue. The specimen is entirely submitted in two cassettes. ??dm/clari /04/01/2004 Microscopic Description Microscopic examination is performed on six slides. ?? /04/01/2004 Sanjeev Jones, ?? (284) Specimen (Source) Anatomical Location Collection Method / Collectio n Time Received Time / Laterality Volume 03/31/2004 03/31/2004 Rancho Curtis MD LAB_1 Performing Organization Address City/State/ZIP Code Phon e Number [address] [id number] [place], [place] [phone] documented in this encounter Visit Diagnoses Not on filedocumented in this encounter Care Teams Engineering Associate Relationship Specialty Start Date End Date Tiffany Gonzalez APRN, DNP PCP - General 01/16/00 02/03/16 [address] [place] [address] documented as of this encounter
--- OUTSIDE RECORDS SUMMARY | 2021-12-28 14:21 | XMS_ITS | Encounter Summary ---
:1965 Author Organization [facility] Address [address] [place] [address] Care Team Providers Name Role Phone Tiffany Gonzalez APRN, DNP Primary Care Provider Encounter Details Date Type Department Care Team Description 03/27/2004 Orders Only [facility] ctice Unknown, Physician [address] [facility] [address] [place], [place] [address] [address] [place] [address] [phone] (Wo rk) Social History Tobacco Use Types Packs/Day Years Used Date Smoking Tobacco: Former Comments: 1pac/week Alcohol Use Standard Drinks/Week Comments Yes 0 (1 standard drink = 0.6 oz pure alcoho l) rarely Sex Assigned at Date Recorded Not on file documented as of this encounter Procedure Notes Virgilio Barragan - 03/27/2004 12:00 AM CSTAssociated Order(s): EKG OPERATOR documented in this encounter Plan of Treatment Not on filedocumented as of this encounter Procedures Procedure Name Priority Date/Time Associated Diagnosis Comme nts EKG 03/27/2004 12:00 AM Results for this AP OPERATOR procedure are i n the results section . documented in this encounter Results EKG (03/27/2004 12:00 AM AP OPERATOR) Narrative 03/27/2004 12:00 AM AP OPERATOR This result has an attachment that is no t available. Ordered by an unspecified provider. Transcriptions Virgilio Barragan - 03/27/2004 12:0 0 AM AP OPERATOR Physician Unknown EKG documented in this encounter Visit Diagnoses Not on filedocumented in this encounter Care Teams Acute Care Nurse Relationship Specialty Start Date End Date Tiffany Gonzalez APRN, DNP PCP - General 01/16/00 02/03/16 [address] [place] [id number] documented as of this encounter
--- OUTSIDE RECORDS SUMMARY | 2021-12-28 14:21 | XMS_ITS | Encounter Summary ---
:1965 Author Organization [facility] Address [address] [place] [address] Care Team Providers Name Role Phone Tiffany Gonzalez APRN, GAIL Primary Care Provider [phone] Reason for Visit Reason Comments Pharyngitis f/u allergies/cold sx Encounter Details Date Type Department Care Team Description 10/06/2004 Office Visit [facility] Lisa, COUGH (Primary Dx); [address] Tiffany Still APRN, ALLERGIC RHINITIS NOS; [place] [address] [facility] REFLUX ESOPHAGITIS [phone] [address] [place] [address] (Wo rk) Social History Tobacco Use Types Packs/Day Years Used Date Smoking Tobacco: Former Comments: 1pac/week Alcohol Use Standard Drinks/Week Comments Yes 0 (1 standard drink = 0.6 oz pure alcoho l) rarely Sex Assigned at Date Recorded Not on file documented as of this encounter Last Filed Vital Signs Vital Sign Reading Time Taken Comments Blood Pressure 126/80 10/06/2004 10:22 AM CDT Pulse - - Temperature - - Respiratory Rate 16 10/06/2004 10:22 AM CDT Oxygen Saturation - - Inhaled Oxygen Concentration - - Weight 106.6 kg (235 lb) 10/06/2004 10:22 AM CDT Height - - Body Mass Index 36.53 06/02/2004 8:05 AM HEALTH SCIENCE SPECIALIST documented in this encounter Patient Instructions Patient Rucptuexwbll96/20/2005 10:20 AM CDT Schedule f/u with Tiffany Gonzalez NP for chronic cough Go to pharmacy for 3 meds; see below Start loratidine 10mg once daily again, along with NEW nasal inhaler Use albuterol as needed for chest symptoms. documented in this encounter Progress Notes 10/06/2004 10:20 AM CDT This office note has been dictated. Tiffany Gonzalez - 10/06/2004 12:00 AM [id number] female presents for follow-up of chronic cough. SUBJECTIVE: The patient states that since she had started allergy medications, throat no longer hurts. Unfortunately she had nasal discomfort with using the Rhinocort spray. States that in the past she has used Nasonex without problem and wanting to know if she could try that instead. She discontinued the Rhinocort and tried loratadine for 4 days. When she felt that the loratadine wasn't helping her allergies enough, she switched to Benadryl. Benadryl is very fatiguing for her. She is not taking that around the clock. At this time denies any throat pain. She complains of the cough being now productive with a clear sputum. Cough does not seem any worse. It might seem somewhat better. Does keep her up at night though. Patient is also stating that she doesn't feel like she is breathing very easy. Over the past week this seems to be a new issue for her. Denies family or personal history of asthma. Patient requests refill on her Zantac which helps reflux. OBJECTIVE: Pleasant female in no acute distress. Weight 235. Blood pressure 126/80. Respirations 16. Obese female in no acute distress. Communicates in full sentences. TMs without erythema, edema, or cerumen. Pharynx clear. Nasal turbinates with pale pink edematous tissue. Clear mucus drainage. Lungs clear with coarse rhonchi on exhalation. Nebulizer given with 0.5 cc albuterol in 3.0 cc normal saline. Peak flows were not dramatically changed after that nebulizer treatment. She was at her predicted value. Patient felt significantly improved, however, in her breathing. Stated that things were smoother. She had a more effective cough. ASSESSMENT: 1. Cough. 2. Allergic rhinitis. 3. Reflux esophagitis. PLAN: Patient will start albuterol oral inhaler 2 puffs q 4 hours prn shortness of breath, chest tightness, wheezing, or coughing. Please see patient instructions for further details of the plan. Follow-up in 2 weeks for evaluation of above. She is in agreement with this plan. 12:59 P cc: documented in this encounter Plan of Treatment Not on filedocumented as of this encounter Visit Diagnoses Diagnosis Cough - Primary Allergic rhinitis, cause unspecified Reflux esophagitis documented in this encounter Care Teams Division Engineer Relationship Specialty Start Date End Date Tiffany Gonzalez, BACK ORDER CLERK, DNP PCP - General 01/16/00 02/03/16 [address] [place] [id number] documented as of this encounter
--- OUTSIDE RECORDS SUMMARY | 2021-12-28 14:21 | XMS_ITS | Encounter Summary ---
:1965 Author Organization [facility] Address [address] [place] [address] Care Team Providers Name Role Phone Tiffany Gonzalez APRN, GAIL Primary Care Provider [phone] Encounter Details Date Type Department Care Team Description 01/10/2004 Correspondence None Unknown, Physici an CONSENT/RELEASE [address] [place], [place] [phone] (Wo rk) Social History Tobacco Use Types Packs/Day Years Used Date Smoking Tobacco: Every Day Comments: 1pac/week Alcohol Use Standard Drinks/Week Comments Yes 0 (1 standard drink = 0.6 oz pure alcoho l) rarely Sex Assigned at Date Recorded Not on file documented as of this encounter Progress Notes Unknown, Physician - 01/10/2004 12:00 AM CDT documented in this encounter Plan of Treatment Not on filedocumented as of this encounter Visit Diagnoses Not on filedocumented in this encounter Care Teams Director Of Event Management Relationship Specialty Start Date End Date Tiffany Gonzalez APRN, GAIL PCP - General 01/16/00 02/03/16 [address] [place] [id number] documented as of this encounter
--- OUTSIDE RECORDS SUMMARY | 2021-12-28 14:21 | XMS_ITS | Encounter Summary ---
:1965 Author Organization [facility] Address [address] [place] [address] Care Team Providers Name Role Phone Tiffany Gonzalez APRN, DNP Primary Care Provider [phone] Encounter Details Date Type Department Care Team Description 08/28/2003 Orders Only [facility] Davi Esparza MD [address] [facility] [place], [place] [address] [place] [address] [phone] (Wo rk) Social History Tobacco Use Types [...] Name Priority Date/Time Associated Diagnosis Comme nts KIDNEY STONE Routine 08/28/2003 8:51 AM Results f or this FORMATION CDT procedure are i n the results section. documented in this encounter Results (ABNORMAL) KIDNEY STONE FORMATION (08/28/2003 8:51 AM CDT) [facility] Method Time Signature Total Volume 3135 ML [facility] Creatinine,Ur 2.0 G/24 HR [facility] Creatinine,Ur Reference [facility] range: 0.63 to 2.50 Calcium,24 Hr 182 MG/24 HR [facility] Urine Calcium,24 Hr Reference [facility] Urine range: 50 to 250 Chloride,24 292 (H) MEQ/24 [facility] Hr Urine HRS Chloride,24 Reference [facility] Hr Urine range: 31 to 260 Magnesium,24 119 MG/24 HRS [facility] Hr Ur Magnesium,24 Reference [facility] Hr Ur range: 18 to 130 Phosphorus,Ur 1179 MG/24 HRS [facility] ine Phosphorus,Ur Reference [facility] ine range: 170 to 1200 Potassium,24 125 MEQ/24 [facility] Hr Ur HRS Potassium,24 Reference [facility] Hr Ur range: 22 to 160 Sodium,24 Hr 295 MEQ/24 [facility] Urine HRS Sodium,24 Hr Reference [facility] Urine range: 52 to 380 Uric Acid, 24 771 (H) MG/24 HRS [facility] Hr Ur Uric Acid, 24 Reference [facility] Hr Ur range: 65 to 630 Ammonia 483 MG/24 HRS [facility] Ammonia Reference [facility] range: 80 to 720 Citrate,24 hr 875 MG/24 HR [facility] Ur Citrate,24 hr Reference [facility] Ur range: 100 to 1300 Oxalate,24 hr 24.0 MG/24 HR [facility] Ur Oxalate,24 hr Reference [facility] Ur range: 3.6 to 38.0 Sulfate 22 MMOL/24 [facility] HRS Sulfate Reference [facility] range: 4 to 35 Osmolality,Ur 427 MOSM/KG [facility] Osmolality,Ur Reference [facility] range: 50 to 1200 Total Vol,24 3.13 (H) L/24 HRS [facility] hr Ur Total Vol,24 Reference [facility] hr Ur range: 0.6 to 1.6 pH,Urine 6.5 [facility] pH,Urine Reference [facility] range: 5.0 to 7.6 Brushite 0.1 [facility] Brushite Reference [facility] range: 0 to 2.0 Struvite 0.0 [facility] Struvite Reference [facility] range: 0 to 75 Calcium 0.9 [facility] Oxalate Calcium Reference [facility] Oxalate range: 0 to 2.0 Uric Acid 0.4 [facility] Uric Acid Reference [facility] range: 0 to 2.0 Uric Acid (NOTE) [facility] RESULTS EXPRESSED RELATIVE SUPERSATURATION. THIS TEST WAS PERFORMED AT: ? [facility], [facility] ? [address] [place], [place] ??[address] QD51 Referred to RF Code, [facility] [place], [place] Specimen Anatomical Collection Method Collection Time Receive d Time (Source) Location / / Volume Laterality 08/28/2003 8:51 AM 4 8:54 CDT AM CDT Davi Esparza MD LAB_1 Performing Organization Address City/State/ZIP Code Phon e Number [facility] [phone] [facility] [address] [place] [facility] [place] [place] [address] documented in this encounter Visit Diagnoses Not on filedocumented in this encounter Care Teams School Clerk Relationship Specialty Start Date End Date Tiffany Gonzalez, EDUCATIONAL CONSULTANT, DNP PCP - General 01/16/00 02/03/16 [address] [place] [id number] documented as of this encounter
--- OUTSIDE RECORDS SUMMARY | 2021-12-28 14:21 | XMS_ITS | Encounter Summary ---
:1965 Author [facility] Address [address] [place] [address] Care Team Providers Name Role Phone Tiffany Gonzalez APRN, DNP Primary Care Provider [phone] Encounter Details Date Type Department Care Team Description 08/28/2003 Orders Only [facility] Davi Esparza MD [address] [facility] [place], [place] [address] [place] [address] [phone] (Wo rk) Social History Tobacco Use Types [...] Name Priority Date/Time Associated Comments Diagnosis CREATININE CLEARANCE Routine 08/28/2003 8:47 AM R esults for this CDT procedure are i n the results section. documented in this encounter Results CREATININE CLEARANCE (ORDER CR (08/28/2003 8:47 AM CDT) Analysis Performed At [facility] Time Signature Creatinine, 65.0 mg/dl [facility] Urine, Random Creatinine 80 70 - 130 [facility] Clearance ml/min/1.73 m2 Creatinine, 19 16 - 25 [facility] Urine mg/kg/24 hr Total Volume 3135 ml/24 hr [facility] Hours of 24 hours [facility] Collection Height 68 inches [facility] Weight 235 lbs [facility] Specimen Anatomical Collection Method Collection Time Receive d Time (Source) Location / / Volume Laterality 08/28/2003 8:47 AM 4 8:50 CDT AM CDT Davi Esparza MD LAB_1 Performing Organization Address City/State/ZIP Code Phon e Number [facility] [phone] [facility] [address] [address] documented in this encounter Visit Diagnoses Not on filedocumented in this encounter Care Teams Heating Operators Engineer Relationship Specialty Start Date End Date Tiffany Gonzalez APRN, DNP PCP - General 01/16/00 02/03/16 [address] [place] [id number] documented as of this encounter
--- OUTSIDE RECORDS SUMMARY | 2021-12-28 14:21 | XMS_ITS | Encounter Summary ---
:1965 [facility] Address [address] [place] [address] Care Team Providers Name Role Phone Tiffany Gonzalez APRN, DNP Primary Care Provider Encounter Details Date Type Department Care Team Description 09/04/2003 Orders Only [facility] Nephrology Unknown, Physician [address] [facility] [address] [place] [address] [place], [place] [address] (Wo rk) Social History Tobacco Use Types Packs/Day Years Used Date Smoking Tobacco: Every Day Comments: 2 cigs/week Alcohol Use Standard Drinks/Week Comments Yes 0 (1 standard drink = 0.6 oz pure alcoho l) rarely Sex Assigned at Date Recorded Not on file documented as of this encounter Procedure Notes Davi Esparza - 09/04/2003 12:00 AM CDTAssociated Order(s): MRI HEAD documented in this encounter Plan of Treatment Not on filedocumented as of this encounter Procedures Procedure Name Priority Date/Time Associated Diagnosis Comme nts MRI HEAD 09/04/2003 12:00 AM Results for this CDT procedure are i n the results section . documented in this encounter Results MRI HEAD (09/04/2003 12:00 AM CDT) Anatomical Region Laterality Modality Other Narrative 09/04/2003 12:00 AM CDT This result has an attachment that is no t available. Ordered by an unspecified provider. Transcriptions Davi Esparza - 09/04/2003 12:00 AM CDT Physician Unknown DUMMY/OTHER/AR documented in this encounter Visit Diagnoses Not on filedocumented in this encounter Care Teams Art Consultant Relationship Specialty Start Date End Date Tiffany Gonzalez APRN, DNP PCP - General 01/16/00 02/03/16 [address] [place] [address] documented as of this encounter
--- OUTSIDE RECORDS SUMMARY | 2021-12-28 14:21 | XMS_ITS | Encounter Summary ---
:1965 Author Organization [facility] Address [address] [place] [address] Care Team Providers Name Role Phone Tiffany Gonzalez TRIMMER HELPER, DNP Primary Care Provider [phone] Encounter Details Date Type Department Care Team Description 01/10/2004 Orders Only [place] Tiffany Gonzalez, Laboratory TRIMMER HELPER, DNP [address] [place] [address] (Wo rk) Social History Tobacco Use [...] Name Priority Date/Time Associated Diagnosis Comme nts UA WITH MICRO Waiting 01/10/2004 3:42 PM Results for this CDT procedure are i n the results section . documented in this encounter Results (ABNORMAL) UA WITH MICRO (01/10/2004 3:42 PM CDT) [facility] Method Time Signature Appr Yellow [facility] Appr Clear [facility] Sp Gr 1.015 1.005 - [facility] 1.030 Leuk Tr (A) [place] [facility] Nitr Neg [place] [facility] pH 5.5 4.5 - 8.0 [facility] Prot Neg [place] mg/dl [facility] Gluc Neg [place] mg/dl [facility] Ket Neg [place] mg/dl [facility] Urob 0.2 0.2 - 1.0 [facility] EU/dl Bili Neg [place] [facility] Blood Neg [place] [facility] RBC'S 0 0 - 3 [facility] /hpf WBC'S 0-2 0 - 5 [facility] /hpf Epith, Occ /hpf [facility] Squamous Bact Occ [facility] Casts 0 /lpf [facility] Other Occ Mucous [facility] Specimen Anatomical Collection Method Collection Time Receive d Time (Source) Location / / Volume Laterality 01/10/2004 3:42 PM 4 3:43 CDT PM CDT Tiffany Gonzalez APRN, DNP LAB_1 Performing Organization Address City/State/ZIP Code Phon e Number [facility] [phone] [facility] [address] [address] documented in this encounter Visit Diagnoses Not on filedocumented in this encounter Care Teams Fine Arts Instructor Relationship Specialty Start Date End Date Tiffany Gonzalez APRN, DNP PCP - General 01/16/00 02/03/16 [address] [place] [id number] documented as of this encounter
--- OUTSIDE RECORDS SUMMARY | 2021-12-28 14:21 | XMS_ITS | Encounter Summary ---
:1965 Author Organization [facility] Address [address] [place] [address] Care Team Providers Name Role Phone Tiffany Gonzalez APRN, [facility] Primary Care Provider [phone] Encounter Details Date Type Department Care Team Description 01/10/2004 Office Visit [place] JANES Gonzalez [facility] Tiffany Still APRN, NOS [address], [place] [address] [address] [place], [place] [phone] (Wo rk) Social History Tobacco Use Types Packs/Day Years Used Date Smoking Tobacco: Every Day Comments: 1pac/week Alcohol Use Standard Drinks/Week Comments Yes 0 (1 standard drink = 0.6 oz pure alcoho l) rarely Sex Assigned at Date Recorded Not on file documented as of this encounter Last Filed Vital Signs Vital Sign Reading Time Taken Comments Blood Pressure 136/82 01/10/2004 3:20 PM CDT Pulse 76 01/10/2004 3:20 PM CDT Temperature - - Respiratory Rate 16 01/10/2004 3:20 PM CDT Oxygen Saturation - - Inhaled Oxygen Concentration - - Weight 102 kg (224 lb 12.8 oz) 01/10/2004 3:20 PM CDT Height - - Body Mass Index 35.21 07/23/2003 9:30 AM CDT documented in this encounter Progress Notes 01/10/2004 3:20 PM CDT Stephanie Norman is here today for break through bleeding. Are you having other pain today, that you want to discuss with the provider? -NO Do you need refills on any of your medications today? -NO Preventive Services up to date? -YES Immunizations up to date? -YES Do you ever feel physically threatened or emotionally afraid? -NO Tobacco Status reviewed? (see History Social-Substance) -YES ladies' locker room attendant offered? -NOT APPLICABLE. Aspirin taken daily? -NO BP was taken on the RIGHT arm. BP cuff size used? -Adult Regular Health Education given? -NO. Contact phone number [phone] (home) [phone] (work), alternate phone number- Ev Piper LPN 01/10/2004 3:23 PM Current outpatient prescriptions: SODIUM BICARBONATE 650MG ORAL TABS,1 tab BID,Disp: ,Rfl: 0 CALCIUM + D 600MG-200UNIT ORAL TABS,one tab daily,Disp: 30,Rfl: 99 FOLIC ACID 1MG ORAL TABS,1 TABLET DAILY,Disp: 30,Rfl: 99 MULTIVITAMINS W/IRON ORAL SOLN (DROPS),one daily,Disp: 30,Rfl: 99 LISINOPRIL (PRINIVIL) 10MG ORAL TABS,1 TABLET DAILY,Disp: 3mos,Rfl: 3 ZANTAC 150MG ORAL TABS,1 po bid,Disp: 1 month ,Rfl: 11 Tiffany Gonzalez Cheko - 01/10/2004 12:00 AM CDTCHIEF COMPLAINT: A 38-year-old female who presents with complaint of breakthrough menstrual bleeding. SUBJECTIVE: Complaining that for the past four to five months she has had some bleeding in between her menstrual cycles. She did have a normal physical and Pap last May. Up until about July, her cycles were normal. Then in July, she started with two to three days of a light bleeding, around the time of ovulation, two weeks before her menstrual cycle. For those two to three days, she did go through one to two pantyliners only. Her menstrual cycle is every 28 days and is five days of bleeding, initially heavy then going relay man. Denies any increased menstrual cramping. She has had significant history of polycystic kidney disease. REVIEW OF SYSTEMS: She is concerned that she may be urinating more than normal but she is drinking more water. Concerned about cancer because both mother and father had breast cancer. Mother at age 40, father at age 64. Other than the above, she is feeling good. She and her partner are expecting a child next month. Her partner was artificially inseminated. OBJECTIVE: Weight is 224.8, blood pressure 136/82, pulse 76, respirations 16. Urinalysis with trace leukocytes, 0 to 2 WBC, 0 RBC, negative blood. ASSESSMENT: Menstrual irregularity. PLAN: Pelvic ultrasound scheduled with followup with NURSE SUPERVISOR. Patient in agreement with plan. I will culture the urine. D: cc: documented in this encounter Plan of Treatment Not on filedocumented as of this encounter Visit Diagnoses Diagnosis Unspecified disorder of menstruation and other abnormal bleeding from female genital tract documented in this encounter Care Teams Computing Services Director Relationship Specialty Start Date End Date Tiffany Gonzalez, PALOMO, DNP PCP - General 01/16/00 02/03/16 [address] [id number] documented as of this encounter
--- OUTSIDE RECORDS SUMMARY | 2021-12-28 14:21 | XMS_ITS | Encounter Summary ---
:1965 Author Organization [facility] Address [address] [place] [address] Care Team Providers Name Role Phone Marcelo Gonzalez APRN, DNP Primary Care Provider Reason for Visit Reason Onset Date Comments Medication Questions 09/29/2004 Encounter Details Date Type Department Care Team Description 09/29/2004 Telephone [facility] Marcelo Gonzalez Medication Questions [address] [address] [address] [facility] [phone] [place] [id number] (Wo rk) Social History Tobacco Use Types Packs/Day Years Used Date Smoking Tobacco: Former Comments: 1pac/week Alcohol Use Standard Drinks/Week Comments Yes 0 (1 standard drink = 0.6 oz pure alcoho l) rarely Sex Assigned at Date Recorded Not on file documented as of this encounter Nursing Notes 09/29/2004 11:59 PM CDT >> THEE URBANO WedSep 29, 2004 10:01 AM pt. agreed with plan and will follow up at next appointment with Marcelo Gonzalez NP. >> MARCELO GONZALEZ WedSep 29, 2004 9:04 AM Can try OTC loratidine 10mg pill once daily x 2wks Marcelo Gonzalez NP >> DARNELL ESPARZA WedSep 29, 2004 8:13 AM Stephanie Norman stopped taking the nasal steroid (she can't remember name)that Marcelo Gonzalez pr escribed-her nose was swelling and it was painful. She needs to know what other med was an option. documented in this encounter Plan of Treatment Not on filedocumented as of this encounter Visit Diagnoses Not on filedocumented in this encounter Care Teams Electric Brain Wave Equipment Mechanic Relationship Specialty Start Date End Date Marcelo Gonzalez, PALOMO, DNP PCP - General 01/16/00 02/03/16 [address] [place] [id number] documented as of this encounter
--- OUTSIDE RECORDS SUMMARY | 2021-12-28 14:21 | XMS_ITS | Encounter Summary ---
:1965 Author Organization [facility] Address [address] [place] [address] Care Team Providers Name Role Phone Tiffany Gonzalez APRN, DNP Primary Care Provider [phone] Encounter Details Date Type Department Care Team Description 06/01/2003 Correspondence [place] SONNY Gonzalez RESU L[facility] Tiffany Still APRN, TO PT [address] [place] [address] [place] [address] [address] [address] [place] [id number] (Wo rk) Social History Tobacco Use Types Packs/Day Years Used Date Smoking Tobacco: Every Day Comments: 2 cigs/week Alcohol Use Standard Drinks/Week Comments Yes 0 (1 standard drink = 0.6 oz pure alcoho l) rarely Sex Assigned at Date Recorded Not on file documented as of this encounter Progress Notes Tiffany Gonzalez - 06/01/2003 12:00 AM RETAIL MERCHANDISER [place] MERCHANDISER documented in this encounter Plan of Treatment Not on filedocumented as of this encounter Visit Diagnoses Not on filedocumented in this encounter Care Teams Rn Recruitment Relationship Specialty Start Date End Date Tiffany Gonzalez APRN, DNP PCP - General 01/16/00 02/03/16 [address] [place] [id number] documented as of this encounter
--- OUTSIDE RECORDS SUMMARY | 2021-12-28 14:21 | XMS_ITS | Encounter Summary ---
:1965 Author Organization [facility] Address [address] [place] [address] Care Team Providers Name Role Phone Tiffany Gonzalez APRN, GAIL Primary Care Provider [phone] Encounter Details Date Type Department Care Team Description 04/04/2004 Telephone [facility] and Dinorah Mondragon MD Gynecology [address] [place], [place] [address] Social History Tobacco Use Types Packs/Day Years Used Date Smoking Tobacco: Former Comments: 1pac/week Alcohol Use Standard Drinks/Week Comments Yes 0 (1 standard drink = 0.6 oz pure alcoho l) rarely Sex Assigned at Date Recorded Not on file documented as of this encounter Progress Notes Dinorah Mondragon - 04/04/2004 12:00 AM TOPOGRAPHICAL SURVEYOR GRAPHICAL SURVEYOR documented in this encounter Plan of Treatment Not on filedocumented as of this encounter Visit Diagnoses Not on filedocumented in this encounter Care Teams Wheelchair Van Operator First Responder Relationship Specialty Start Date End Date Tiffany Gonzalez APRN, GAIL PCP - General 01/16/00 02/03/16 [address] [place] [id number] documented as of this encounter
--- OUTSIDE RECORDS SUMMARY | 2021-12-28 14:21 | XMS_ITS | Encounter Summary ---
:1965 Author Organization [facility] Address [address] [place] [address] Care Team Providers Name Role Phone Tiffany Gonzalez APRN, GAIL Primary Care Provider Reason for Visit Reason Onset Date Comments Medication Questions 10/06/2004 Encounter Details Date Type Department Care Team Description 10/06/2004 Telephone [facility] Tiffany Gonzalez Medication Questions [address] [place], [place] [address] [address] [facility] [phone] [place] [id number] (Wo rk) Social History Tobacco Use Types Packs/Day Years Used Date Smoking Tobacco: Former Comments: 1pac/week Alcohol Use Standard Drinks/Week Comments Yes 0 (1 standard drink = 0.6 oz pure alcoho l) rarely Sex Assigned at Date Recorded Not on file documented as of this encounter Nursing Notes 10/06/2004 11:59 PM CDT >> KEN DAVIS WedOct 06, 2004 1:02 PM LM with pt. re: instructions per Sanchez Gonzalez. >> BETINA ZIMMERMAN WedOct 06, 2004 12:39 PM The pt just seen Tiffany Gonzalez. They had talked about loritadine and nasonex. The pt can't rem ember if she is suppose to take both or just one. documented in this encounter Plan of Treatment Not on filedocumented as of this encounter Visit Diagnoses Not on filedocumented in this encounter Care Teams Welt Slasher Relationship Specialty Start Date End Date Tiffany Gonzalez APRN, DNP PCP - General 01/16/00 02/03/16 [address] [id number] documented as of this encounter
--- OUTSIDE RECORDS SUMMARY | 2021-12-28 14:21 | XMS_ITS | Encounter Summary ---
:1965 Author Organization [facility] Address [address] [place] [address] Care Team Providers Name Role Phone Tiffany Gonzalez APRN, DNP Primary Care Provider [phone] Encounter Details Date Type Department Care Team Description 08/31/2003 Telephone [facility] Nephrology Davi Esparza MD [address] [facility] [address] [place] [address] [place], [place] [phone] (Wo rk) Social History Tobacco Use Types Packs/Day Years Used Date Smoking Tobacco: Every Day Comments: 2 cigs/week Alcohol Use Standard Drinks/Week Comments Yes 0 (1 standard drink = 0.6 oz pure alcoho l) rarely Sex Assigned at Date Recorded Not on file documented as of this encounter Progress Notes Davi Esparza - 08/31/2003 12:00 AM CDT documented in this encounter Plan of Treatment Not on filedocumented as of this encounter Visit Diagnoses Not on filedocumented in this encounter Care Teams Desktop Administrator Relationship Specialty Start Date End Date Tiffany Gonzalez APRN, DNP PCP - General 01/16/00 02/03/16 [address] [place] [id number] documented as of this encounter
--- OUTSIDE RECORDS SUMMARY | 2021-12-28 14:21 | XMS_ITS | Encounter Summary ---
:1965 Author Organization [facility] Address [address] [place] [address] Care Team Providers Name Role Phone Tiffany Gonzalez APRN, DNP Primary Care Provider Encounter Details Date Type Department Care Team Description 08/28/2003 Orders Only [facility] Davi Esparza MD [address] [place], [place] [address] [place] [address] [phone] (Wo rk) Social History Tobacco Use Types [...] Procedure Name Priority Date/Time Associated Comments Diagnosis ANION GAP (CALC.) Routine 08/28/2003 8:34 AM Resu lts for this CDT procedure are i n the results section. LIPID PANEL, FAST > Routine 08/28/2003 8:34 AM Re sults for this 12 HOUR CDT procedure are i n the results section. PTH WHOLE MOLECULE Routine 08/28/2003 8:34 AM Res ults for this CDT procedure are i n the results section. CO2 (CARBON DIOXIDE) Routine 08/28/2003 8:34 AM R esults for this CDT procedure are i n the results section. SODIUM Routine 08/28/2003 8:34 AM Results f or this CDT procedure are i n the results section. POTASSIUM Routine 08/28/2003 8:34 AM Results f or this CDT procedure are i n the results section. GLUCOSE - FASTING > Routine 08/28/2003 8:34 AM Re sults for this 8 HRS FASTING CDT procedure are in the results section. CREATININE Routine 08/28/2003 8:34 AM Results f or this CDT procedure are i n the results section. CK, TOTAL Routine 08/28/2003 8:34 AM Results f or this CDT procedure are i n the results section. CHLORIDE (CL) Routine 08/28/2003 8:34 AM Results for this CDT procedure are i n the results section. CALCIUM Routine 08/28/2003 8:34 AM Results f or this CDT procedure are i n the results section. BUN Routine 08/28/2003 8:34 AM Results f or this CDT procedure are i n the results section. documented in this encounter Results ANION GAP (CALC.) (08/28/2003 8:34 AM CDT) P athologist Signature Anion Gap 12 7 - 17 [facility] (calc.) mmol/L Specimen Anatomical Collection Method Collection Time Receive d Time (Source) Location / / Volume Laterality 08/28/2003 8:34 AM 4 8:36 CDT AM CDT Davi Esparza MD LAB_1 Performing Organization Address City/State/ZIP Code Phon e Number [facility] [phone] [facility] [address] [address] PTH WHOLE MOLECULE (08/28/2003 8:34 AM CDT) Component Value Ref Test Analysis Performed At Patholo gist Range Method Time Signature PTH Whole 26 PG/ML [facility] Molecule PTH Whole Reference range: 10 [facility] Molecule to 65 PTH Whole (NOTE) [facility] Molecule ? INTERPRETIVE GUIDE ?INTACT PTH ??CALCIUM NORMAL PARATHYROID FUNCTION ??10-65 ? NORMAL HYPOPARATHYROIDISM ? <28 ? LOW PRIMARY HYPERPARATHYROIDISM ?>65 ? HIGH SECONDARY HYPERPARATHYROIDISM ??>65 ?NORMAL OR LOW NON-PARATHYROID HYPERCALCEMIA ??<28 ? HIGH Calcium 9.5 MG/DL [facility] Calcium Reference range: 8.5 [facility] to 10.4 Comment Referred to [facility], [address] [place] [address] Specimen Anatomical Collection Method Collection Time Receive d Time (Source) Location / / Volume Laterality 08/28/2003 8:34 AM 4 8:36 CDT AM CDT Davi Esparza MD LAB_1 Performing Organization Address City/[facility] Phon e Number [facility] [phone] [facility] [address] [address] SODIUM (08/28/2003 8:34 AM CDT) P athologist Signature Sodium 137 135 - 145 [facility] mmol/L Specimen Anatomical Collection Method Collection Time Receive d Time (Source) Location / / Volume Laterality 08/28/2003 8:34 AM 4 8:36 CDT AM CDT Davi Esparza MD LAB_1 Performing Organization Address City/[facility] Phon e Number [facility] [phone] [facility] [address] [place] [phone] (ABNORMAL) CHOLESTEROL LIPID PANEL FAST >12HR FAST (08/28/2003 8:34 AM CDT) Component Value Ref Test Analysis Performed At Patholo gist Range Method Time Signature Cholesterol 224 (H) <200 [facility] mg/dl Cholesterol Result should not be interpreted without the patient's [facility] history of Cholesterol cardiovascular [facility] risk factors. Triglyceride 175 <200 [facility] mg/dl HDL 43 >35 [facility] mg/dl LDL, Calc. 146 mg/dl [facility] Hours Fasting 12 hours [facility] Specimen Anatomical Collection Method Collection Time Receive d Time (Source) Location / / Volume Laterality 08/28/2003 8:34 AM 4 8:36 CDT AM CDT Davi Esparza MD LAB_1 Performing Organization Address [facility] Phon e Number [facility] [phone] [facility] [address] [address] POTASSIUM (08/28/2003 8:34 AM CDT) athologist Signature Potassium 4.9 3.5 - 5.3 [facility] mmol/L Specimen Anatomical Collection Method Collection Time Receive d Time (Source) Location / / Volume Laterality 08/28/2003 8:34 AM 4 8:36 CDT AM CDT Davi Esparza MD LAB_1 Performing Organization Address [facility] Phon e Number [facility] [phone] [facility] [address] [place] [phone] GLUCOSE - FASTING > 8 HRS FASTING (08/28/2003 8:34 AM CDT) athologist Signature Glucose 88 70 - 110 [facility] mg/dl Hours Fasting 12 hours [facility] Specimen Anatomical Collection Method Collection Time Receive d Time (Source) Location / / Volume Laterality 08/28/2003 8:34 AM 4 8:36 CDT AM CDT Davi Esparza MD LAB_1 Performing Organization Address [facility] Phon e Number [facility] [phone] [facility] [address] [place] [phone] (ABNORMAL) CREATININE (08/28/2003 8:34 AM CDT) athologist Signature Creatinine 1.4 (H) 0.6 - 1.3 [facility] mg/dl Specimen Anatomical Collection Method Collection Time Receive d Time (Source) Location / / Volume Laterality 08/28/2003 8:34 AM 4 8:36 CDT AM CDT Davi Esparza MD LAB_1 Performing Organization Address [facility] Phon e Number [facility] [phone] [facility] [address] [phone] (ABNORMAL) CO2 (08/28/2003 8:34 AM CDT) P athologist Signature CO2 19 (L) 22 - 31 [facility] mmol/L Specimen Anatomical Collection Method Collection Time Receive d Time (Source) Location / / Volume Laterality 08/28/2003 8:34 AM 4 8:36 CDT AM CDT Davi Esparza MD LAB_1 Performing Organization Address [facility] Phon e Number [facility] [phone] [facility] [address] [place] [phone] (ABNORMAL) CHLORIDE (08/28/2003 8:34 AM CDT) P athologist Signature Chloride 106 (H) 95 - 105 [facility] mmol/L Specimen Anatomical Collection Method Collection Time Receive d Time (Source) Location / / Volume Laterality 08/28/2003 8:34 AM 4 8:36 CDT AM CDT Davi Esparza MD LAB_1 Performing Organization Address [facility] Phon e Number [facility] [phone] [facility] [address] [place] [phone] CK, TOTAL (08/28/2003 8:34 AM CDT) P athologist Signature CK, Total 105 17 - 142 [facility] U/L Specimen Anatomical Collection Method Collection Time Receive d Time (Source) Location / / Volume Laterality 08/28/2003 8:34 AM 4 8:36 CDT AM CDT Davi Esparza MD LAB_1 Performing Organization Address [facility] Phon e Number [facility] [phone] [facility] [address] [phone] CALCIUM (08/28/2003 8:34 AM CDT) athologist Signature Calcium 9.3 8.2 - 10.0 [facility] mg/dl Specimen Anatomical Collection Method Collection Time Receive d Time (Source) Location / / Volume Laterality 08/28/2003 8:34 AM 4 8:36 CDT AM CDT Davi Esparza MD LAB_1 Performing Organization Address City/[facility] Phon e Number [facility] [phone] [facility] [address] [phone] BUN (08/28/2003 8:34 AM CDT) athologist Signature BUN 20 10 - 26 [facility] mg/dl Specimen Anatomical Collection Method Collection Time Receive d Time (Source) Location / / Volume Laterality 08/28/2003 8:34 AM 4 8:36 CDT AM CDT Davi Esparza MD LAB_1 Performing Organization Address [facility] Phon e Number [facility] [phone] [phone] documented in this encounter Visit Diagnoses Not on filedocumented in this encounter Care Teams Creative Writing Professor Relationship Specialty Start Date End Date Tiffany Gonzalez APRN, DNP PCP - General 01/16/00 02/03/16 [place] [id number] documented as of this encounter
--- OUTSIDE RECORDS SUMMARY | 2021-12-28 14:21 | XMS_ITS | Encounter Summary ---
:1965 Author Organization [facility] Address [address] [place] [address] Care Team Providers Name Role Phone Tiffany Gonzalez APRN, DNP Primary Care Provider Encounter Details Date Type Department Care Team Description 08/28/2003 Office Visit [facility] Anastasia Salmeron [address], [facility] [address] [place] [address] Social History Tobacco Use Types Packs/Day Years Used Date Smoking Tobacco: Every Day Comments: 2 cigs/week Alcohol Use Standard Drinks/Week Comments Yes 0 (1 standard drink = 0.6 oz pure alcoho l) rarely Sex Assigned at Date Recorded Not on file documented as of this encounter Progress Notes Anastasia Salmeron RD, LD - 08/28/2003 12:00 AM CDT Anastasia Salmeron RD, LD - 08/28/2003 12:00 AM CDT documented in this encounter Plan of Treatment Not on filedocumented as of this encounter Visit Diagnoses Not on filedocumented in this encounter Care Teams Sequins Slinger Relationship Specialty Start Date End Date Tiffany Gonzalez APRN, DNP PCP - General 01/16/00 02/03/16 [address], [place] [address] documented as of this encounter
--- OUTSIDE RECORDS SUMMARY | 2021-12-28 14:21 | XMS_ITS | Encounter Summary ---
:1965 Author Organization [facility] Address [address] [place] [address] Care Team Providers Name Role Phone Tiffany Gonzalez APRN, GAIL Primary Care Provider Reason for Visit Reason Comments Sore Throat since yesterday COLD, NOS since 2 + weeks ago BODY ACHES--ED since yesterday Encounter Details Date Type Department Care Team Description 01/15/2005 Office Visit [facility] Lisa, ACUTE SINUSITIS NOS [address] Tiffany Still APRN, (Primary Dx) [place] [address] [facility] [phone] [address] [place] [address] (Wo rk) Social History Tobacco Use Types Packs/Day Years Used Date Smoking Tobacco: Former Comments: 1pac/week Alcohol Use Standard Drinks/Week Comments Yes 0 (1 standard drink = 0.6 oz pure alcoho l) rarely Sex Assigned at Date Recorded Not on file documented as of this encounter Last Filed Vital Signs Vital Sign Reading Time Taken Comments Blood Pressure 112/80 01/15/2005 3:21 PM CDT Pulse - - Temperature 36.7 ??C (98.1 ??F) 01/15/2005 3:21 PM CDT Respiratory Rate 16 01/15/2005 3:21 PM CDT Oxygen Saturation - - Inhaled Oxygen Concentration - - Weight - - Height - - Body Mass Index - - documented in this encounter Progress Notes 01/15/2005 3:20 PM CDT S: Patient is a 39 yr female who presents with a 2+-week(s) history of rhinorrhea, nasal congestion and lt green discharge. Symptoms worse past couple days with sore throat and new body acheds. Associated symptoms include facial pain. Patient does not report chest pain, fever, dyspnea and wheezing. Face hurts when bending over. Past Medical History is positive for: Asthma and allergic rhinitis Past Medical History is negative for Pneumonia Smoking status: smokes at work Current outpatient prescriptions: NAFTIN 1 % EX CREA,apply twice daily to affected areas on breast x 2wks,Disp: 1,Rfl: 0 NASONEX 50MCG/ACT NASAL SPRAY,2sprays ea nostril once daily,Disp: 1,Rfl: 11 ALBUTEROL 90 MCG/ACT IN AERS,Inhale 1 or 2 puffs by mouth every 4 to 6 hours as needed for wheezing, chest tightness or shortness of breath,Disp: 1,Rfl: 11 ZANTAC 150 MG OR TABS,1 po bid,Disp: 3mos,Rfl: 3 LISINOPRIL 10 MG OR TABS,1 TABLET DAILY,Disp: 3mos,Rfl: 3 CALCIUM + D 600MG-200UNIT ORAL TABS,one tab daily,Disp: 30,Rfl: 99 FOLIC ACID 1 MG OR TABS,1 TABLET DAILY,Disp: 30,Rfl: 99 MULTIVITAMINS W/IRON ORAL SOLN (DROPS),one daily O: BP 112/80 Temp (Src) 98.1 (Tympanic) Resp 16 General Appearance : Overwieght female in No Acute Distress. Skin: cyanosis absent, rash absent. Lymph Nodes: within normal limits HEENT: Head: atraumatic, normocephalic; Eyes: Conjunctival erythema: absent Ears: within normal limits bilateral Nose: edmatous mucosa and yellow mucous; Throat: moderate erythema Neck: bilat tonsilar nodes slightly enlarged, tende on palpation Heart: regular rate and rhythm Lungs: Clear to auscultation without rales or ronchi Maxillary sinuses tender on palpation A: Acute Sinusitis P: See prescribed medication(s) EES Call in 1-week(s) if not improving Given sinus handout and asked her to follow recommendations. Tiffany Gonzalez NP documented in this encounter Plan of Treatment Not on filedocumented as of this encounter Visit Diagnoses Diagnosis Acute sinusitis, unspecified - Primary documented in this encounter Care Teams Cloud Services Architect Relationship Specialty Start Date End Date Tiffany Gonzalez APRN, DNP PCP - General 01/16/00 02/03/16 [address] [place] [id number] documented as of this encounter
--- OUTSIDE RECORDS SUMMARY | 2021-12-28 14:21 | XMS_ITS | Encounter Summary ---
:1965 Author Organization [facility] Address [address] [place] [address] Care Team Providers Name Role Phone Tiffany Gonzalez APRN, GAIL Primary Care Provider Encounter Details Date Type Department Care Team Description 06/25/2003 Office Visit [facility], Mila SANDOVAL ENING MAMM- MAILG NEOPL-OTHER; [facility] FAMILY HX-BREAST MAL [address] [place] [address] Social History Tobacco Use Types Packs/Day Years Used Date Smoking Tobacco: Every Day Comments: 2 cigs/week Alcohol Use Standard Drinks/Week Comments Yes 0 (1 standard drink = 0.6 oz pure alcoho l) rarely Sex Assigned at Date Recorded Not on file documented as of this encounter Procedure Notes Lakesha Solano - 06/25/2003 12:00 AM CSTAssociated Order(s): MAMMOGRAM, SCREENING EXAMINATION: BILATERAL MAMMOGRAM 06/25/2003: ACR BIRADS CATEGORY 1 - NEGATIVE MAMMOGRAM. COMPARISON: 05/25/2001. FINDINGS: Patient is asymptomatic. There are scattered fibroglandular densities in both breasts. The appearance is stable. Lakesha Solano MD A cc: Radiology Lan Resendiz MD ET STRAIGHTENER documented in this encounter Plan of Treatment Not on filedocumented as of this encounter Procedures Procedure Name Priority Date/Time Associated Diagnosis Comme nts MAMMOGRAM, SCREENING Routine 06/25/2003 Screening Mamm-Mailg Results for this Neopl-Other procedure are in the Family Hx-Breast Malig resul ts section. documented in this encounter Results MAMMOGRAM, SCREENING (06/25/2003) Anatomical Region Laterality Modality Breast Other Transcriptions Lakesha Solano R - 06/25/2003 12:00 AM CS TEXAMINATION: BILATERAL MAMMOGRAM 06/25/2003: ACR BIRADS CATEGORY 1 - NEGATIVE MAMMOGR AM. COMPARISON: 05/25/2001. FINDINGS: Patient is asymptomatic. There are scattered fibroglandular densities in both breasts. The appearanc e is stable. Lakesha Solano MD A cc: Radiology Lan Resendiz MD Lan Resendiz MD RAD_BI documented in this encounter Visit Diagnoses Diagnosis Other screening mammogram Family history of malignant neoplasm of breast documented in this encounter Care Teams Logging Tractor Operator Relationship Specialty Start Date End Date Tiffany Gonzalez APRN, DNP PCP - General 01/16/00 02/03/16 [address] [place] [id number] documented as of this encounter
--- OUTSIDE RECORDS SUMMARY | 2021-12-28 14:21 | XMS_ITS | Encounter Summary ---
:1965 Author Organization [employer] Address [address] [place] [address] Care Team Providers Name Role Phone Tiffany Gonzalez APRN, GAIL Primary Care Provider Encounter Details Date Type Department Care Team Description 01/15/2005 Notes/Orders [facility] Lisa, POLYCYSTIC KIDNEY, [address] Tiffany Still APRN, [place] [address] [facility] [phone] [address] [place], [place] [phone] (Wo rk) Social History Tobacco Use Types [...] Diagnosis Comme nts CREATININE / GFR Routine 01/15/2005 3:42 PM Polycystic Kidney, Results for this CDT Unspec procedure are i n the results section. UA MICRO IF Routine 01/15/2005 3:42 PM Polycystic Kidney, Res ults for this CDT Unspec procedure are i n the results section. documented in this encounter Results (ABNORMAL) UA MICRO IF (01/15/2005 3:42 PM CDT) [facility] Method Time Signature Appr Pale Yel [facility] [...] Gonzalez APRN, DNP LAB_1 Performing Organization Address [facility] Phon e Number [facility] [employer] [phone] [facility] [address] [place] [phone] (ABNORMAL) CREATININE / GFR (01/15/2005 3:42 PM CDT) [facility] gist Method Time Signature Creatinine 1.4 (H) 0.6 - 1.3 [facility] mg/dl GFR, Estimated 44.3 (L) >60 [facility] ml/min/1. 73m2 GFR, Est., If 53.6 (L) >60 [facility] Black ml/min/1. 73m2 Specimen Anatomical Collection Method Collection Time Receive d Time (Source) Location / / Volume Laterality 01/15/2005 3:42 PM 5 3:43 CDT PM CDT Tiffany Gonzalez APRN, DNP LAB_1 Performing Organization Address [facility] Phon e Number [facility] [employer] [phone] [phone] documented in this encounter Visit Diagnoses Diagnosis Polycystic kidney, unspecified type documented in this encounter Care Teams Building Superintendent Relationship Specialty Start Date End Date Tiffany Gonzalez APRN, DNP PCP - General 01/16/00 02/03/16 [address] [place] [id number] documented as of this encounter
--- OUTSIDE RECORDS SUMMARY | 2021-12-28 14:21 | XMS_ITS | Encounter Summary ---
:1965 Author Organization [facility] Address [address] [place] [address] Care Team Providers Name Role Phone Tiffany Gonzalez APRN, DNP Primary Care Provider [phone] Encounter Details Date Type Department Care Team Description 10/16/2003 Orders Only [facility] Davi Esparza MD [address] [place], [place] [address] [place] [address] [phone] (Wo rk) Social History Tobacco Use Types [...] Name Priority Date/Time Associated Diagnosis Comme nts CO2 (CARBON Routine 10/16/2003 10:45 AM Results for this DIOXIDE) CDT procedure are i n the results section. documented in this encounter Results CO2 (10/16/2003 10:45 AM CDT) P athologist Signature CO2 23 22 - 31 [facility] mmol/L Specimen Anatomical Collection Method Collection Time Receive d Time (Source) Location / / Volume Laterality 10/16/2003 10:45 10/16/2003 AM CDT 10:46 AM CDT Davi Esparza MD LAB_1 Performing Organization Address City/State/ZIP Code Phon e Number [facility] [phone] [facility] [address] [place] [phone] documented in this encounter Visit Diagnoses Not on filedocumented in this encounter Care Teams Administrative Specialist Relationship Specialty Start Date End Date Tiffany Gonzalez APRN, DNP PCP - General 01/16/00 02/03/16 [address] [place] [id number] documented as of this encounter
--- OUTSIDE RECORDS SUMMARY | 2021-12-28 14:21 | XMS_ITS | Encounter Summary ---
:1965 Author Organization [facility] Address [address] [place] [address] Care Team Providers Name Role Phone Tiffany Gonzalez APRN, DNP Primary Care Provider [phone] Encounter Details Date Type Department Care Team Description 06/01/2003 Orders Only [facility] MD [employer] Security Contact Bill [address] [place] [address] Mailstop [id number] [phone] (Wo rk) Social History Tobacco Use Types [...] on filedocumented in this encounter Care Teams Call Center Director Relationship Specialty Start Date End Date Tiffany Gonzalez APRN, GAIL PCP - General 01/16/00 02/03/16 [address] [place] [id number] documented as of this encounter
--- OUTSIDE RECORDS SUMMARY | 2021-12-28 14:21 | XMS_ITS | Encounter Summary ---
:1965 [facility] Address [address] [place] [address] Care Team Providers Name Role Phone Tiffany Gonzalez APRN, DNP Primary Care Provider Encounter Details Date Type Department Care Team Description 02/18/2004 Office Visit [facility] and Dinorah Mondragon, ENDOMETRIAL POLYP; Gynecology [facility] [address] [address] Social History Tobacco Use Types Packs/Day Years Used Date Smoking Tobacco: Every Day Comments: 1pac/week Alcohol Use Standard Drinks/Week Comments Yes 0 (1 standard drink = 0.6 oz pure alcoho l) rarely Sex Assigned at Date Recorded Not on file documented as of this encounter Last Filed Vital Signs Vital Sign Reading Time Taken Comments Blood Pressure 110/78 02/18/2004 1:40 PM APPLIED BEHAVIOR SCIENCE SPECIALIST Pulse - - Temperature - - Respiratory Rate - - Oxygen Saturation - - Inhaled Oxygen Concentration - - Weight 100.7 kg (222 lb) 02/18/2004 1:40 PM APPLIED BEHAVIOR SCIENCE SPECIALIST Height 170.2 cm (5' 7) 02/18/2004 1:40 PM APPLIED BEHAVIOR SCIENCE SPECIALIST Body Mass Index 34.77 02/18/2004 1:40 PM APPLIED BEHAVIOR SCIENCE SPECIALIST documented in this encounter Progress Notes 02/18/2004 1:40 PM APPLIED BEHAVIOR SCIENCE SPECIALIST Addended by: THUAN TRAN on: 03/04/2004, 8:47:36 AM (via Web). Comment: See addendum for 03/04/04, change in date and time of surg. Pt here for f/u after US done 01/30 for midcycle bleeding. PARA 0000 BC-none Rachel Valente, JAILYN 1:41 PM SUBJECTIVE: Here to follow up US done because of abnormal vaginal bleeding between periods. This has been present for 4-5 months. Menses regular, q 28 days.Midcycle bleeding lasts about 3 days. Painless. Had cervical polyp removed in 2001. No hx of surgery to uterus or ovaries. ROS: No bowel or bladder problems. Pap 06/01/2003 NILM. Ultrasound of pelvis on 01/31/2004:IMPRESSION: 1. Normal sized uterus with a small posterior intramural myoma. 2. Four small endometrial polyps as described above. All polyps less than 1.0 cm in length. 3. Normal looking both ovaries. No free fluid seen in the cul-de-sac. OBJECTIVE: BP 110/78 Ht 5' 7.00 (1.70m) Wt 222 lbs (100.7kg) LMP 01/25/2004 Pt not examined today. She is not in pain. ASSESSMENT: Midcycle bleeding with four small endometrial polyps seen on US. Polyps are most likely cause of the bleeding. PLAN: Recommend hysteroscopy and D&C. Procedure, risks, benefits and alternatives discussed. Including risk of anesthesia. Brochures and handouts reviewed and given to pt. Surgery scheduled at [facility]. March 04, arrive 6:30am NPO. See primary for preop PE. Pt's partner is due to deliver a baby in late February at [facility], but might go early because of high blood pressure. If needed, this D&C can be postponed until after the holidays, into early 2004. It is not an emergency, but recommended for therapeutic and diagnostic purposes. Pt understands. Questions answered. Also discussed was pt's FH of breast cancer in her mother dx age 40, one month later. Then at age 65 her father was dx with breast cancer. He is A&W at age 67. I suggest that she see Dr.Deb Cloud to discuss this unusual FH. She does have annual mammograms. Dinorah Mondragon MD documented in this encounter Plan of Treatment Not on filedocumented as of this encounter Visit Diagnoses Diagnosis Polyp of corpus uteri Counseling NOS(V65.40) Counseling NOS documented in this encounter Care Teams Shank Sander Relationship Specialty Start Date End Date Tiffany Gonzalez APRN, DNP PCP - General 01/16/00 02/03/16 [address] [place] [id number] documented as of this encounter
--- OUTSIDE RECORDS SUMMARY | 2021-12-28 14:21 | XMS_ITS | Encounter Summary ---
:1965 Author Organization [facility] Address [address] [place] [address] Care Team Providers Name Role Phone Tiffany Gonzalez APRN, DNP Primary Care Provider [phone] Reason for Visit Reason Comments SHOT,FLU Encounter Details Date Type Department Care Team Description 04/15/[address] [facility] CINE FOR INFLUENZA Department Social History Tobacco Use Types Packs/Day Years Used Date Smoking Tobacco: Former Comments: 1pac/week Alcohol Use Standard Drinks/Week Comments Yes 0 (1 standard drink = 0.6 oz pure alcoho l) rarely Sex Assigned at Date Recorded Not on file documented as of this encounter Progress Notes 04/15/2004 1:00 PM FASHION CONSULTANT SUBJECTIVE: Severe allergy to eggs: no Previous severe reaction to thimerosal : no History of paralysis with Guillian Weiser: no Ill appearing with increased respiratory rate, moderate fever (>101.0 F), and increased heart rate: no History of bleeding problem: no Severe allergy to latex *: no (If YES to any of the above, consult MD) * The contraindication does not apply to children receiving [employer] Fluzone Preservative Free Pediatric dose OBJECTIVE: Temp (only if ill today): ASSESSMENT: Eligible for flu vaccine today: YES PLAN: Administer vaccine: Education: discussed possible side effects and provided health education materials. Tennille Finnegan LPN 04/15/2004 1:57 PM documented in this encounter Plan of Treatment Not on filedocumented as of this encounter Visit Diagnoses Diagnosis Need for prophylactic vaccination and in oculation against influenza documented in this encounter Care Teams Soil Expert Relationship Specialty Start Date End Date Tiffany Gonzalez APRN, DNP PCP - General 01/16/00 02/03/16 [address] [place] [id number] documented as of this encounter
--- OUTSIDE RECORDS SUMMARY | 2021-12-28 14:21 | XMS_ITS | Encounter Summary ---
:1965 Author Organization [facility] Address [address] [place] [address] Care Team Providers Name Role Phone Tiffany Gonzalez APRN, DNP Primary Care Provider [phone] Reason for Visit Reason Comments Follow-up, NOS allergies RASH on breast, had yeast infecti on from heat 2 years ago on breast Encounter Details Date Type Department Care Team Description 10/22/2004 Office Visit [facility] Gonzalez, DERMATOPHYTOSIS SITE NOS (Primary Dx); Practice Tiffany Still APRN, ALLERGIC RHINITIS NOS [address] [place], [place] [address] [address] [place] [address] [phone] Social History Tobacco Use Types Packs/Day Years Used Date Smoking Tobacco: Former Comments: 1pac/week Alcohol Use Standard Drinks/Week Comments Yes 0 (1 standard drink = 0.6 oz pure alcoho l) rarely Sex Assigned at Date Recorded Not on file documented as of this encounter Last Filed Vital Signs Vital Sign Reading Time Taken Comments Blood Pressure 116/76 10/22/2004 10:24 AM CDT Pulse 76 10/22/2004 10:24 AM CDT Temperature 36.6 ??C (97.8 ??F) 10/22/2004 10:24 AM CDT Respiratory Rate - - Oxygen Saturation - - Inhaled Oxygen Concentration - - Weight - - Height - - Body Mass Index - - documented in this encounter Patient Instructions Patient Nmhdeelqvssj11/06/2005 10:20 AM CDT Naftin creme twice daily x 2wks to breast; obtain Rx from this pharmacy Make f/u appt for Nephrology Make appt for Allergy in the Fall. documented in this encounter Progress Notes 10/22/2004 10:20 AM CDT This office note has been dictated. Tiffany Gonzalez - 10/22/2004 12:00 AM CDTS: [id number] female, presents for follow up allergies, along with a new complaint of rash. S: Rash, new on breasts since yesterday. States she has history of yeast infections. She's used a cotton cloth under the breasts for the past 24 hours. The intensity is moderate, in terms of irritation and itching. Seems like the symptoms have not worsened in the past 12 hours. The rash is to the inside of both breasts. In review of her chart, it seemed that Naftin cream had been helpful for her. Also wants to tell me that since being on Nasonex nasal spray and Loratadine on a faithful basis daily times two weeks, she is now 95% better in terms of coughing at night. No longer having problems with coughing at night. Some minimal coughing during the day. On the whole, she is very happy with getting sleep again. She is using the albuterol inhaler less than three times a week. It does help for her occasional wheezing. Patient has never been diagnosed with asthma before. This allergy onset is new for her as well. We discussed an allergy referral. But she would have to come off these medications for that. She is not interested in doing that until at least the fall. O: Vitals, blood pressure 116/76, pulse 76, temperature 97.8. Healthy-appearing female, in no acute distress. Erythema with well defined border to medial aspect of bilateral breasts. A: #1, dermatophytosis to bilateral breasts. #2, allergic rhinitis. PLAN: Naftin cream twice daily to affected areas on breasts times two weeks. Follow up if symptoms are persistent. Make Nephrology appointment, as she is overdue. There is a history of polycystic kidney disease. Allergy referral in the fall. 10:55 A cc: documented in this encounter Nursing Notes 10/22/2004 10:20 AM CDT >> THEE URBANO 10/22/2004 10:25 am The patient is here today for a follow up visit for allergies improving, pt. not coughing, the information documented from their last visit on 10/06/2004 has been verified. TREY Edwards documented in this encounter Plan of Treatment Not on filedocumented as of this encounter Visit Diagnoses Diagnosis Dermatophytosis of unspecified site - Pr imary Allergic rhinitis, cause unspecified documented in this encounter Care Teams Cash Posting Clerk Relationship Specialty Start Date End Date Tiffany Gonzalez, DROP WIRE ALINER, DNP PCP - General 01/16/00 02/03/16 [address] [place] [id number] documented as of this encounter
--- OUTSIDE RECORDS SUMMARY | 2021-12-28 14:21 | XMS_ITS | Encounter Summary ---
:1965 Author Organization [facility] Address [address] [place] [address] Care Team Providers Name Role Phone Tiffany Gonzalez RECORD CHANGER ASSEMBLER, DNP Primary Care Provider [phone] Encounter Details Date Type Department Care Team Description 06/04/2003 Orders Only [place] Tiffany Gonzalez, Laboratory RECORD CHANGER ASSEMBLER, DNP [address] [place] [address] (Wo rk) Social History Tobacco Use [...] Date/Time Associated Comments Diagnosis CREATININE CLEARANCE Routine 06/03/2003 8:03 AM R esults for this PRODUCTION SUPERVISOR OFF SHIFT procedure are i n the results section. documented in this encounter Results CREATININE CLEARANCE (ORDER CR (06/03/2003 8:03 AM PRODUCTION SUPERVISOR OFF SHIFT) Analysis Performed At [facility] Time Signature Creatinine, 106.9 mg/dl [facility] Urine, Random Creatinine 77 70 - 130 [facility] Clearance ml/min/1.73 m2 Creatinine, 17 16 - 25 [facility] Urine mg/kg/24 hr Total Volume 1680 ml/24 hr [facility] Hours of 24 hours [facility] Collection Height 67 inches [facility] Weight 235 lbs [facility] Specimen Anatomical Collection Method Collection Time Receive d Time (Source) Location / / Volume Laterality 06/03/2003 8:03 AM 8:05 PRODUCTION SUPERVISOR OFF SHIFT AM PRODUCTION SUPERVISOR OFF SHIFT Tiffany Gonzalez APRN, DNP LAB_1 Performing Organization Address City/State/ZIP Code Phon e Number [facility] [phone] [facility] [address] [address] documented in this encounter Visit Diagnoses Not on filedocumented in this encounter Care Teams Seasonal Tax Preparer Relationship Specialty Start Date End Date Tiffany Gonzalez APRN, DNP PCP - General 01/16/00 02/03/16 [address] [place] [id number] documented as of this encounter
--- OUTSIDE RECORDS SUMMARY | 2021-12-28 14:21 | XMS_ITS | Encounter Summary ---
:1965 Author Organization [facility] Address [address] [place] [address] Care Team Providers Name Role Phone Tiffany Gonzalez APRN, GAIL Primary Care Provider Encounter Details Date Type Department Care Team Description 06/05/2003 Notes/Orders [facility] Long Gonzalez, Practice DIGITAL ACCOUNT EXECUTIVE, DNP [address] [place] [address] [address] [place], [place] [address] [address] [phone] Social History Tobacco Use Types Packs/Day Years [...] on filedocumented in this encounter Care Teams Housing Counselor Relationship Specialty Start Date End Date Tiffany Gonzalez, PALOMO, GAIL PCP - General 01/16/00 02/03/16 [address] [id number] documented as of this encounter
--- OUTSIDE RECORDS SUMMARY | 2021-12-28 14:21 | XMS_ITS | Encounter Summary ---
:1965 Author Organization [facility] Address [address] [place] [address] Care Team Providers Name Role Phone Tiffany Gonzalez APRN, DNP Primary Care Provider Reason for Visit Reason Onset Date Comments QUESTIONS, GENERAL 01/15/2005 Encounter Details Date Type Department Care Team Description 01/15/2005 Telephone [facility] Davi Briones MD QUESTIONS, GENERAL [address] [place], [place] [address] [place] [address] [phone] (Wo rk) Social History Tobacco Use Types Packs/Day Years Used Date Smoking Tobacco: Former Comments: 1pac/week Alcohol Use Standard Drinks/Week Comments Yes 0 (1 standard drink = 0.6 oz pure alcoho l) rarely Sex Assigned at Date Recorded Not on file documented as of this encounter Nursing Notes 01/15/2005 11:59 PM CDT >> RUTHANN PERRY Sarah Jan 15, 2005 11:06 AM Pt informed, lab slip faxed to adithya.Ruthann Perry LPN >> RUTHANN PERRY Sarah Jan 15, 2005 10:13 AM Left message for pt to call.Ruthann Perry LPN >> DAVI BRIONES Sarah Jan 15, 2005 9:33 AM Noted. Pt has PCKD. Follow up as scheduled or schedule follow up w/ Chem10, cbc, and UA and U prot/C ant Briones MD >> TRACY SANCHEZ Sarah Jan 15, 2005 8:06 AM pt wants to know if she is due for a f/u appt. please call documented in this encounter Plan of Treatment Not on filedocumented as of this encounter Visit Diagnoses Not on filedocumented in this encounter Care Teams French Tutor Relationship Specialty Start Date End Date Tiffany Gonzalez APRN, DNP PCP - General 01/16/00 02/03/16 [address] [place] [id number] documented as of this encounter
--- OUTSIDE RECORDS SUMMARY | 2021-12-28 14:21 | XMS_ITS | Encounter Summary ---
:1965 Author Organization [facility] Address [address] [place] [address] Care Team Providers Name Role Phone Tiffany Gonzalez APRN, DNP Primary Care Provider Encounter Details Date Type Department Care Team Description 08/23/2003 Orders Only [facility] Davi Esparza MD [address] [facility] [address] [place], [place] [address] [place] [address] [phone] (Wo rk) Social History Tobacco Use Types [...] Associated Diagnosis Comme nts UA WITH MICRO Routine 08/23/2003 11:59 AM Results for this CDT procedure are i n the results section . documented in this encounter Results (ABNORMAL) UA WITH MICRO (08/23/2003 11:59 AM CDT) Analysis Performed At Patho logist Time Signature Appr Yellow [facility] Appr Clear [facility] Sp Gr 1.015 1.005 - [facility] 1.030 Leuk Neg [facility] Nitr Neg [place] pH 6.0 4.5 - 8.0 [facility] Prot Neg [place] mg/dl [facility] Gluc Neg [place] mg/dl [facility] Ket Neg [place] mg/dl [facility] Urob 0.2 0.2 - 1.0 [facility] EU/dl Bili Neg [place] [facility] Blood Tr (A) [place] RBC'S 0-3 0 - 3 /hpf [facility] WBC'S 0-2 0 - 5 /hpf [facility] Epith, Few /hpf [facility] Squamous Bact Few [facility] Casts 0 /lpf [facility] Specimen Anatomical Collection Method Collection Time Receive d Time (Source) Location / / Volume Laterality 08/23/2003 11:59 08/23/2003 AM CDT 12:00 PM CDT Davi Esparza MD LAB_1 Performing Organization Address City/State/ZIP Code Phon e Number [facility] [phone] [facility] [address] [address] documented in this encounter Visit Diagnoses Not on filedocumented in this encounter Care Teams Car Ferrier Relationship Specialty Start Date End Date Tiffany Gonzalez, PALOMO, DNP PCP - General 01/16/00 02/03/16 [address] [place] [id number] documented as of this encounter
--- OUTSIDE RECORDS SUMMARY | 2021-12-28 14:21 | XMS_ITS | Encounter Summary ---
:1965 Author Organization [facility] Address [address] [place] [address] Care Team Providers Name Role Phone Tiffany Gonzalez APRN, GAIL Primary Care Provider [phone] Reason for Referral Specialty Diagnoses / Procedures Referred By Contact Refer red To Contact Virginie Devine ma, MD [facility] [address] [place], [place] [address] Referral ID Status Reason Start Date Expiration Date Visits Requ ested Visits Authorized Y LEVEL SALES ASSOCIATE Reason for Visit Reason Comments PE AND PAP Encounter Details Date Type Department Care Team Description 06/02/2004 Office Visit [place] Virginie Devine VE CARE EXAM (Primary Dx); Internal Medicine MD Paul HYPERTENSION NOS; [facility] POLYCYSTIC KIDNEY, UNSPEC; [address] [place] [address] Social History Tobacco Use Types Packs/Day Years Used Date Smoking Tobacco: Former Comments: 1pac/week Alcohol Use Standard Drinks/Week Comments Yes 0 (1 standard drink = 0.6 oz pure alcoho l) rarely Sex Assigned at Date Recorded Not on file documented as of this encounter Last Filed Vital Signs Vital Sign Reading Time Taken Comments Blood Pressure 110/80 06/02/2004 8:05 AM ENTRY LEVEL SALES ASSOCIATE Pulse 76 06/02/2004 8:05 AM ENTRY LEVEL SALES ASSOCIATE Temperature - - Respiratory Rate - - Oxygen Saturation - - Inhaled Oxygen Concentration - - Weight 103.9 kg (229 lb) 06/02/2004 8:05 AM ENTRY LEVEL SALES ASSOCIATE Height 170.8 cm (5' 7.25) 06/02/2004 8:05 AM ENTRY LEVEL SALES ASSOCIATE Body Mass Index 35.6 06/02/2004 8:05 AM ENTRY LEVEL SALES ASSOCIATE documented in this encounter Progress Notes 06/02/2004 8:00 AM ENTRY LEVEL SALES ASSOCIATE Quick Note by: VIRGINIE DEVINE I on 06/04/04 at 11:49 AM. Cholesterol is elevated , dietary changes, low fat/chol, weight loss recommended,. Renal function is stable. Other labs are normal.Virginie Devine MD S> Stephanie Norman is in for routine health maintenance. She feels generally well. Current concerns: none. Menses are regular and predictable Sexual activity: monogamous in a stable relationship . Contraception: none. Cardiovascular risk factors: Total # of Risk Factors for this patient = 1 Nutrition/diet/weight concerns: no concerns Present dietary habits: tries to make low fat, high fiber choices most of the time. Present exercise habits: does some activities which elevate heart rate several times a week. Domestic violence concerns:denies any concern I have asked the patient and reviewed the following history(ies): Family, Medical, Social and Surgical Review of systems include: EYES: no visual blurring, no double vision, no glaucoma, no cataracts, no eye pain, no color blindness, ENT: no abnormally frequent URIs, no decrease in hearing, no persistently sore throat, RESPIRATORY: no shortness of breath, no cough, no sputum, CARDIOVASCULAR: no palpitations, no irregular heart beats, no chest pain, no exertional chest pain or pressure, GASTROINTESTINAL: normal appetite, no dysphagia, no nausea, no abdominal pain, no melena, GENITOURINARY: no dysuria, no frequency, no hematuria, MUSCULOSKELETAL: no weakness, no nocturnal cramping, no muscle pains, SKIN: no rash, no itch, no scaling, no hair changes, no nail changes, NEUROLOGIC: no numbness or tingling of hands, no numbness or tingling of feet, no syncope, PSYCHIATRIC: no sleep disturbances, no anxiety, no de pression, HEMATOLOGIC/LYMPHATIC/IMMUNOLOGIC: no fevers, no night sweats, no chills, no weight loss, ENDOCRINE: no cold intolerance, no heat intolerance, no polydypsia, no polyphagia O> General: 39 yr pleasant female who appears her stated age. HEENT: Eyes: no lesions of lids, mattering or redness Head: normocephalic Mouth and throat: without erythema or lesions of the mucosa Nose: without septal or mucosal abnormalities Ears: external canals and TMs free of lesions or abnormalities Neck: supple, without adenopathy or thyromegaly. Lungs: clear to auscultation, no wheezes, no crackles Breasts: no dominant mass or nipple changes CV: regular rate and rhythm, normal S1 and S2 without murmur or click Abd: soft, non-tender, no masses, no hepatomegaly or splenomegaly. : normal appearance of external genitalia, vaginal mucosa, and cervix and no palpable abnormalities on bimanual exam MS: extremities: no sign of deformity, atrophy, tenderness, asymmetry or edema, good muscle tone & symmetry, normal alignment of lower extremities Skin: clear to inspection and with no palpable abnormalities. Neuro: sensation and motor function grossly intact; cranial nerves without obvious abnormalities. 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 Virginie Devine MD 5:30 PM 06/02/2004 documented in this encounter Plan of Treatment Scheduled Referrals Name Type Priority Associated Diagnoses Order S chedule MAMMO. SCREENING, W/O Referral Routine Preventive Care Exa m Ordered: 06/02/2004 IMPLANTS (V76.12) documented as of this encounter Procedures Procedure Name Priority Date/Time Associated Diagnosis Comme nts CREATININE / GFR Routine 06/02/2004 8:39 AM Hypertension Nos R esults for this ENTRY LEVEL SALES ASSOCIATE procedure are i n the results section. LIPID PANEL, FAST > Routine 06/02/2004 8:39 AM Preventive Care Exam Results for this 12 HOUR ENTRY LEVEL SALES ASSOCIATE procedure are i n the results section. POTASSIUM Routine 06/02/2004 8:39 AM Hypertension Nos Resul ts for this ENTRY LEVEL SALES ASSOCIATE procedure are i n the results section. BUN Routine 06/02/2004 8:39 AM Hypertension Nos Resul ts for this ENTRY LEVEL SALES ASSOCIATE procedure are i n the results section. PAP TEST, ROUTINE Routine 06/02/2004 12:00 Result s for this AM ENTRY LEVEL SALES ASSOCIATE procedure are i n the results section. documented in this encounter Results POTASSIUM (06/02/2004 8:39 AM ENTRY LEVEL SALES ASSOCIATE) athologist Signature Potassium 5.1 3.5 - 5.3 [facility] mmol/L Specimen Anatomical Collection Method Collection Time Receive d Time (Source) Location / / Volume Laterality 06/02/2004 8:39 AM 5 8:40 ENTRY LEVEL SALES ASSOCIATE AM ENTRY LEVEL SALES ASSOCIATE Virginie Devine MD LAB_1 Performing Organization Address [facility] Phon e Number [facility] [phone] [address] (ABNORMAL) CREATININE / GFR (06/02/2004 8:39 AM ENTRY LEVEL SALES ASSOCIATE) [facility] gist Method Time Signature Creatinine 1.3 0.6 - 1.3 [facility] mg/dl GFR, Estimated 48.2 (L) >60 [facility] ml/min/1. 73m2 GFR, Est., If 58.3 (L) >60 [facility] Black ml/min/1. 73m2 Specimen Anatomical Collection Method Collection Time Receive d Time (Source) Location / / Volume Laterality 06/02/2004 8:39 AM 5 8:40 ENTRY LEVEL SALES ASSOCIATE AM ENTRY LEVEL SALES ASSOCIATE Virginie Devine MD LAB_1 Performing Organization Address [facility] Phon e Number [facility] [phone] [address] (ABNORMAL) CHOLESTEROL LIPID PANEL FAST >12HR FAST (06/02/2004 8:39 AM ENTRY LEVEL SALES ASSOCIATE) athologist Signature Cholesterol 216 (H) <200 mg/dl [facility] Comment: Result should not be interpreted without the patient's history of cardiovascular risk factors. Triglyceride 142 <200 mg/dl [facility] HDL 44 >35 mg/dl [facility] LDL, Calc. 144 mg/dl [facility] Hours Fasting 12 hours [facility] Specimen Anatomical Collection Method Collection Time Receive d Time (Source) Location / / Volume Laterality 06/02/2004 8:39 AM 5 8:40 ENTRY LEVEL SALES ASSOCIATE AM ENTRY LEVEL SALES ASSOCIATE Virginie Devine MD LAB_1 Performing Organization Address [facility] Phon e Number [facility] [phone] [facility] [address] [place] [phone] BUN (06/02/2004 8:39 AM ENTRY LEVEL SALES ASSOCIATE) P athologist Signature BUN 25 10 - 26 [facility] mg/dl Specimen Anatomical Collection Method Collection Time Receive d Time (Source) Location / / Volume Laterality 06/02/2004 8:39 AM 5 8:40 ENTRY LEVEL SALES ASSOCIATE AM ENTRY LEVEL SALES ASSOCIATE Virginie Devine MD LAB_1 Performing Organization Address [facility] Phon e Number [facility] [phone] [phone] PAP TEST, ROUTINE (06/02/2004 12:00 AM ENTRY LEVEL SALES ASSOCIATE) Component Value Ref Test Analysis Performed At Patholo gist Range Method Time Signature Cytology, Pap (NOTE) [employer] Sales[employer] Cytology Report Patient Name: STEPHANIE NORMAN Taken: 06/02/2004 Received: 06/03/2004 Reported: 06/09/2004 Physician(s): VIRGINIE DEVINE ([id number]) ?Source of Specimen Liquid routine Pap, cervical/endocervical: ?Specimen Adequacy ?Satisfactory for evaluation. ??Endocervical component present. ? Final Cytologic Interpretation/Result NEGATIVE FOR INTRAEPITHELIAL LESION OR MALIGNANCY (NILM) ?Other Cytologic Findings ?Inflammation ? at1/06/09/2004 Electronically Signed Out By TORI Sanchez (ASCP) TORI Sanchez (ASCP) ?Pap Smear History ?Date of Last Menstrual Period: ? 05/16/04 ?Contraceptive History: ?Not Stated/Unknown ?Other Clinical Conditions: ?LAST PAP: normal HPV reflex testing requested with interpretation of ASCUS ? Specimen (Source) Anatomical Location Collection Method / Collectio n Time Received Time / Laterality Volume 06/02/2004 06/03/2004 Virginie Devine MD LAB_1 Performing Organization Address City/State/[facility] Phon e Number [address] [address] [place], [place] [phone] documented in this encounter Visit Diagnoses Diagnosis Routine general medical examination at [facility] facility - Primary Routine general medical examination at [facility] Unspecified essential hypertension (HRC) Unspecified essential hypertension Polycystic kidney, unspecified type Reflux esophagitis documented in this encounter Care Teams Third Grade Teacher Relationship Specialty Start Date End Date Tiffany Gonzalez, LABORATORY SECRETARY, DNP PCP - General 01/16/00 02/03/16 [address] [place] [id number] documented as of this encounter
--- OUTSIDE RECORDS SUMMARY | 2021-12-28 14:21 | XMS_ITS | Encounter Summary ---
:1965 Author Organization [facility] Address [address] [place] [address] Care Team Providers Name Role Phone Tiffany Gonzalez APRN, GAIL Primary Care Provider Reason for Visit Reason Comments SORE THROAT,NURSE Encounter Details Date Type Department Care Team Description 09/02/2004 [facility] AC[facility]ARYNG[facility](SORE [address] THROAT) (Primary Dx) [place], [place] [id number] Social History Tobacco Use Types Packs/Day Years Used Date Smoking Tobacco: Former Comments: 1pac/week Alcohol Use Standard Drinks/Week Comments Yes 0 (1 standard drink = 0.6 oz pure alcoho l) rarely Sex Assigned at Date Recorded Not on file documented as of this encounter Last Filed Vital Signs Vital Sign Reading Time Taken Comments Blood Pressure - - Pulse - - Temperature 36.7 ??C (98.1 ??F) 09/02/2004 2:49 PM CDT Respiratory Rate - - Oxygen Saturation - - Inhaled Oxygen Concentration - - Weight - - Height - - Body Mass Index - - documented in this encounter Progress Notes 09/02/2004 2:00 PM CDT S: Stephanie Norman complains of sore throat lasting two days. Other presenting symptoms include:headache,no nausea,no temps. Pertinent medical history includes: history of strep as a younger adult. O: Objective exam of patient indicates throat slightly red. Complicating symptoms or history includes: Phone number: [phone] (home) [phone] (work), alternate number A: Sore Throat P: Wait for rapid strep results First results negative,sheet given on sore throat care.await final results. Yessica Lara LPN, 2:18 PM 09/02/2004 documented in this encounter Plan of Treatment Not on filedocumented as of this encounter Procedures Procedure Name Priority Date/Time Associated Diagnosis Comme nts STREP GRP A, RAPID Waiting 09/02/2004 2:32 PM Acute Res ults for this SCREEN CDT Pharyngitis(Sore procedure a re in Throat) the results section. documented in this encounter Results RAPID, GPA STREP SCREEN (WAITI [[id number]] (09/02/2004 2:32 PM CDT) [facility] Method Time Signature Patient Home None [facility] Phone # Patient Work None [facility] Phone # Grp A Rapid Negative NEG [facility] Screen Grp A Culture Negative NEG [facility] Final Specimen Anatomical Collection Method Collection Time Receive d Time (Source) Location / / Volume Laterality 09/02/2004 2:32 PM 5 2:35 CDT PM CDT Willard Morataya MD LAB_1 Performing Organization Address City/State/ZIP Code Phon e Number [facility] [phone] [facility] [address] [place] [phone] documented in this encounter Visit Diagnoses Diagnosis Acute pharyngitis - Primary documented in this encounter Care Teams Quarry Supervisor Open Pit Relationship Specialty Start Date End Date Tiffany Gonzalez APRN, DNP PCP - General 01/16/00 02/03/16 [address] [place] [id number] documented as of this encounter
--- OUTSIDE RECORDS SUMMARY | 2021-12-28 14:21 | XMS_ITS | Encounter Summary ---
:1965 Author Organization [facility] Address [address] [place] [address] Care Team Providers Name Role Phone Tiffany Gonzalez APRN, GAIL Primary Care Provider Encounter Details Date Type Department Care Team Description 07/23/2003 Office Visit [facility] Davi Esparza MD POLYCYST KIDN, [facility] [address] [place] [address] [place] [address] [place], [place] [address] [phone] Social History Tobacco Use Types Packs/Day Years Used Date Smoking Tobacco: Every Day Comments: 2 cigs/week Alcohol Use Standard Drinks/Week Comments Yes 0 (1 standard drink = 0.6 oz pure alcoho l) rarely Sex Assigned at Date Recorded Not on file documented as of this encounter Last Filed Vital Signs Vital Sign Reading Time Taken Comments Blood Pressure 140/82 07/23/2003 9:30 AM CDT Pulse 66 07/23/2003 9:30 AM CDT Temperature - - Respiratory Rate - - Oxygen Saturation - - Inhaled Oxygen Concentration - - Weight 106.6 kg (235 lb) 07/23/2003 9:30 AM CDT Height 170.2 cm (5' 7) 07/23/2003 9:30 AM CDT Body Mass Index 36.81 07/23/2003 9:30 AM CDT documented in this encounter Progress Notes 07/23/2003 9:30 AM CDT Stephanie Norman is here today regarding New Pt, Polycystic Kidneys, Hematuria. Sitting/Standing BP? Yes. Sitting BP 140/82 P 66, Standing BP 128/78 . emergency care attendant offered? Partner is here today. [place] Primary care provider CAMILA Malik RN, 07/23/2003, 9:32 AM Current outpatient prescriptions: CALCIUM 600MG + VITAMIN D 200IU ORAL TABS,one tab daily,Disp: 30,Rfl: 99 FOLIC ACID 1MG ORAL TABS,1 TABLET DAILY,Disp: 30,Rfl: 99 MULTIVITAMINS W/IRON ORAL SOLN (DROPS),one daily,Disp: 30,Rfl: 99 LISINOPRIL (PRINIVIL) 10MG ORAL TABS,1 TABLET DAILY,Disp: 3mos,Rfl: 3 ZANTAC 150MG ORAL TABS,1 po bid,Disp: 1 month ,Rfl: 11 Davi Esparza - 07/23/2003 12:00 AM CDTREASON FOR CONSULTATION This is a 38-year-old lady, seen in consultation from Dr. Tiffany Gonzalez at [facility] for autosomal dominant polycystic kidney disease. HISTORY OF PRESENT ILLNESS The patient has had an established diagnosis of polycystic kidney, presumably autosomal dominant, dating back 20 years. She was initially evaluated as a possible kidney donor for her father. Eventually, her father received a kidney from his son. There is another sibling, a sister whose status is unknown as far as polycystic kidney is concerned. There's a well documented incidence of autosomal dominant polycystic kidney disease on the fathers' side of the family. There has been some concern because the patient has had episodic back pain in association with gross hematuria and negative urine culture. The period of gross hematuria would last for 2 or 3 days. There has been evidence of infection or pyelonephritis or nausea or vomiting with this, and concern was raised whether the hematuria might be secondary to cysts rupturing spontaneously. Otherwise, she's rather healthy. She was initiated on Lisinopril recently for hypertension, her blood pressure in the clinic today is: 140/82 and 128/78. She's had longstanding migraine headaches, that she treats with ice and rest and those recur about once monthly. She works for [employer]. There's no significant tobacco or ethanol use. She sometimes has some easy bruising, and irregular periods, but otherwise her review of systems is unremarkable. PHYSICAL EXAMINATION On examination, the patient is a moderately overweight lady, is not in any acute distress. Lungs: clear. Heart sounds: are regular without discernible gallops or murmurs. Abdomen: obese, and there is very vague fullness in the right upper quadrant noted. Extremities: without edema. She is alert and oriented times 3 and is quite appropriate. Her radiologic imaging studies, including MRI, and CT scan are reviewed with her and her partner. She has massively enlarged kidneys with multiple cysts, and kidneys appear to have distorted appearance because of that. No obvious hydronephrosis noted, some calcifications are noted. It shows as liver cysts. IMPRESSION: 1.) Autosomal dominant polycystic kidney disease, with history and presentation consistent with cyst rupture and secondary gross hematuria episodically. 2.) No known complications of polycystic kidney, though her headache history is somewhat worrisome. No known cardiovascular disease. Well controlled hypertension. RECOMMENDATIONS We reviewed with her the usual approach to management of polycystic kidney disease and its natural history. Her prognosis appears somewhat more promising, inasmuch as she historically had normal renal function as reflected by serum creatinine level at or near the upper limit of normal, and her clearance most recently in May was 77 cc/minute. Reviewed the usual measures to help with control of hypertension, diet and healthy living habits in general. In this context, some appropriate diet for weight reduction and management of renal disease specifically, might be appropriate, even though the appropriate food selection is rather difficult. We proposed a formal consultation with renal dietitian regarding food choices, and the patient is agreeable. Additionally, because of headaches, even without known family history, we thought that MRI of the brain would be reasonable to at least exclude clinically significant cerebral aneurysms, associated with polycystic kidney disease in some patients. No specific management for episodes of gross hematuria could be recommended, and, fortunately she is not having significant pain. Certainly if there is a concern about infection, she ought to be treated promptly. We proposed to follow up with her formally in another 6 to 12 months, and proposed that does routine laboratory studies, such as urinalysis and renal functions and electrolyte studies at every 6 to 12 month intervals, as well as a blood pressure check. P cc: CAMILA Wallace MD documented in this encounter Plan of Treatment Not on filedocumented as of this encounter Visit Diagnoses Diagnosis Polycystic kidney, autosomal dominant documented in this encounter Care Teams Bean Snapper Relationship Specialty Start Date End Date Tiffany Gonzalez APRN, DNP PCP - General 01/16/00 02/03/16 [address] [place] [id number] documented as of this encounter
--- OUTSIDE RECORDS SUMMARY | 2021-12-28 14:21 | XMS_ITS | Encounter Summary ---
:1965 Author Organization [facility] Address [address] [place] [address] Care Team Providers Name Role Phone Tiffany Gonzalez APRN, GAIL Primary Care Provider Encounter Details Date Type Department Care Team Description 09/23/2004 Notes/Orders [facility] Lisa, POLYCYSTIC KIDNEY, [address] Tiffany Still APRN, [place] [address] [facility] [phone] [address] [place] [address] (Wo rk) Social History Tobacco Use Types [...] Diagnosis Comme nts CREATININE / GFR Routine 09/23/2004 3:16 PM Polycystic Kidney, Results for this CDT Unspec procedure are i n the results section. UA MICRO IF Routine 09/23/2004 3:16 PM Polycystic Kidney, Res ults for this CDT Unspec procedure are i n the results section. UA MICRO Routine 09/23/2004 3:16 PM Results f or this CDT procedure are i n the results section. documented in this encounter Results UA MICRO (09/23/2004 3:16 PM CDT) [facility] gist Method Time Signature RBC'S 0 0 - 3 [facility] /hpf WBC'S 3-5 0 - 5 [facility] /hpf Epith, Occ /hpf [facility] Squamous Bact 0 [facility] Casts 0 /lpf [facility] Other Occ Mucous [facility] Specimen Anatomical Collection Method Collection Time Receive d Time (Source) Location / / Volume Laterality 09/23/2004 3:16 PM 5 3:17 CDT PM CDT Tiffany Gonzalez APRN, DNP LAB_1 Performing Organization Address [facility] Phon e Number [facility] [phone] [facility] [address] [place] [phone] (ABNORMAL) UA MICRO IF (09/23/2004 3:16 PM CDT) athologist Signature Appr Yellow [facility] Appr [...] Gonzalez APRN, DNP LAB_1 Performing Organization Address [facility] Phon e Number [facility] [phone] [facility] [address] [place] [phone] (ABNORMAL) CREATININE / GFR (09/23/2004 3:16 PM CDT) [facility] Method Time Signature Creatinine 1.4 (H) 0.6 - 1.3 [facility] mg/dl GFR, Estimated 44.3 (L) >60 [facility] ml/min/1. 73m2 GFR, Est., If 53.6 (L) >60 [facility] Black ml/min/1. 73m2 Specimen Anatomical Collection Method Collection Time Receive d Time (Source) Location / / Volume Laterality 09/23/2004 3:16 PM 5 3:17 CDT PM CDT Tiffany Gonzalez APRN, DNP LAB_1 Performing Organization Address City/State/ZIP Code Phon e Number [facility] [phone] [facility] [address] [phone] documented in this encounter Visit Diagnoses Diagnosis Polycystic kidney, unspecified type documented in this encounter Care Teams Glass Engraver Relationship Specialty Start Date End Date Tiffany Gonzalez APRN, DNP PCP - General 01/16/00 02/03/16 [address] [place] [id number] documented as of this encounter
--- OUTSIDE RECORDS SUMMARY | 2021-12-28 14:21 | XMS_ITS | Encounter Summary ---
:1965 Author Organization [facility] Address [address] [place] [address] Care Team Providers Name Role Phone Tiffany Gonzalez APRN, GAIL Primary Care Provider Encounter Details Date Type Department Care Team Description 06/30/2004 Office Visit Ashwin Givens Mammogram I, Mila SANDOVAL ENING MAMM- MAILG NEOPL-OTHER; Bartelso Mammography FAMILY HX-BREAST MAL [address], [place] [address] Social History Tobacco Use Types Packs/Day Years Used Date Smoking Tobacco: Former Comments: 1pac/week Alcohol Use Standard Drinks/Week Comments Yes 0 (1 standard drink = 0.6 oz pure alcoho l) rarely Sex Assigned at Date Recorded Not on file documented as of this encounter Procedure Notes rTuong Young - 06/30/2004 12:00 AM CSTAssociated Order(s): MAMMOGRAM, SCREENING EXAMINATION: BILATERAL MAMMOGRAM 06/30/04: ACR BIRADS CATEGORY 1 - NEGATIVE MAMMOGRAM. No radiographic evidence for malignancy. No change compared to 06/05/02. Truong Young MD A cc: Radiology Tiffany Gonzalez NP ER/WAITRESS BUFFET documented in this encounter Plan of Treatment Not on filedocumented as of this encounter Procedures Procedure Name Priority Date/Time Associated Diagnosis Comme nts MAMMOGRAM, SCREENING Routine 06/30/2004 Screening Mamm-Mailg Results for this Neopl-Other procedure are in the Family Hx-Breast Malig resul ts section. documented in this encounter Results MAMMOGRAM, SCREENING (06/30/2004) Anatomical Region Laterality Modality Breast Other Transcriptions Truong Young - 06/30/2004 12 :00 AM CSTEXAMINATION: BILATERAL MAMMOGRAM 06/30/04: ACR BIRADS CATEGORY 1 - NEGATIVE MAMMOGR AM. No radiographic evidence for malignancy. No change compared to 06/05/02. Truong Young MD A cc: Radiology Tiffany Gonzalez NP Tiffany Gonzalez APRN, DNP RAD_BI documented in this encounter Visit Diagnoses Diagnosis Other screening mammogram Family history of malignant neoplasm of breast documented in this encounter Care Teams Master At Arms Relationship Specialty Start Date End Date Tiffany Gonzalez APRN, DNP PCP - General 01/16/00 02/03/16 [address] [place] [address] documented as of this encounter
--- OUTSIDE RECORDS SUMMARY | 2021-12-28 14:22 | XMS_ITS | Encounter Summary ---
:1965 Author Organization [facility] Address [address] [place] [address] Care Team Providers Name Role Phone Tiffany Gonzalez KEY HOLDER, DNP Primary Care Provider [phone] Encounter Details Date Type Department Care Team Description 05/15/2003 Orders Only [place] Tiffany Gonzalez, Laboratory KEY HOLDER, DNP [address] [place] [place] [address] (Wo rk) Social History Tobacco Use [...] Priority Date/Time Associated Diagnosis Comme nts UA MICRO IF Waiting 05/15/2003 4:04 PM Results f or this DIGITAL ACCOUNT EXECUTIVE procedure are i n the results section . UA MICRO Routine 05/15/2003 4:04 PM Results f or this DIGITAL ACCOUNT EXECUTIVE procedure are i n the results section . documented in this encounter Results UA MICRO (05/15/2003 4:04 PM DIGITAL ACCOUNT EXECUTIVE) P athologist Signature RBC'S 0-3 0 - 3 /hpf [facility] WBC'S 3-5 0 - 5 /hpf [facility] Epith, Few /hpf [facility] Squamous Bact Occ [facility] Casts 0 /lpf [facility] Specimen Anatomical Collection Method Collection Time Receive d Time (Source) Location / / Volume Laterality 05/15/2003 4:04 PM 4 4:06 DIGITAL ACCOUNT EXECUTIVE PM DIGITAL ACCOUNT EXECUTIVE Tiffany Gonzalez APRN, DNP LAB_1 Performing Organization Address [facility] Phon e Number [facility] [phone] [facility] [address] [phone] (ABNORMAL) UA MICRO IF (05/15/2003 4:04 PM DIGITAL ACCOUNT EXECUTIVE) P athologist Signature Appr Yellow [facility] Appr Clear [facility] Sp Gr 1.015 1.005 - [facility] 1.030 Leuk Tr (A) [facility] Nitr Neg [facility] pH 5.0 4.5 - 8.0 [facility] Prot Neg [place] mg/dl [facility] Gluc Neg [place] mg/dl [facility] Ket Neg [place] mg/dl [facility] Urob 0.2 0.2 - 1.0 [facility] EU/dl Bili Neg [place] Blood Neg [place] [facility] Specimen Anatomical Collection Method Collection Time Receive d Time (Source) Location / / Volume Laterality 05/15/2003 4:04 PM 4 4:06 DIGITAL ACCOUNT EXECUTIVE PM DIGITAL ACCOUNT EXECUTIVE Tiffany Gonzalez APRN, DNP LAB_1 Performing Organization Address [facility] Phon e Number [facility] [phone] [facility] [address] [phone] documented in this encounter Visit Diagnoses Not on filedocumented in this encounter Care Teams Semiconductor Processor Relationship Specialty Start Date End Date Tiffany Gonzalez APRN, DNP PCP - General 01/16/00 02/03/16 [place] [id number] documented as of this encounter
--- OUTSIDE RECORDS SUMMARY | 2021-12-28 14:22 | XMS_ITS | Encounter Summary ---
:1965 Author Organization [facility] Address [address] [place] [address] Care Team Providers Name Role Phone Tiffany Gonzalez APRN, GAIL Primary Care Provider Encounter Details Date Type Department Care Team Description 10/09/2002 Scanned History None Unknown, Physici an Problem List [address] [place], [place] [address] (Wo rk) Social History Tobacco Use Types Packs/Day Years Used Date Smoking Tobacco: Former Alcohol Use Standard Drinks/Week Comments Yes 0 (1 standard drink = 0.6 oz pure alcoho l) rarely Sex Assigned at Date Recorded Not on file documented as of this encounter Progress Notes Unknown, Physician - 10/09/2002 12:00 AM CDT documented in this encounter Plan of Treatment Not on filedocumented as of this encounter Visit Diagnoses Not on filedocumented in this encounter Care Teams Orthodontist Assistant Relationship Specialty Start Date End Date Tiffany Gonzalez APRN, GAIL PCP - General 01/16/00 02/03/16 [address] [id number] documented as of this encounter
--- OUTSIDE RECORDS SUMMARY | 2021-12-28 14:22 | XMS_ITS | Encounter Summary ---
:1965 Author Organization [facility] Address [address] [place] [address] Care Team Providers Name Role Phone Tiffany Gonzalez APRN, [facility] Primary Care Provider Encounter Details Date Type Department Care Team Description 05/15/2003 Office Visit Fil[place] Lisa HYPERTENSIO N NOS; Family Practice Tiffany Still APRN, POLYCYSTIC KIDNEY, UNSPEC [address] [place] [address] [address] [address] [place] [id number] (Wo rk) Social History Tobacco Use Types Packs/Day Years Used Date Smoking Tobacco: Former Alcohol Use Standard Drinks/Week Comments Yes 0 (1 standard drink = 0.6 oz pure alcoho l) rarely Sex Assigned at Date Recorded Not on file documented as of this encounter Last Filed Vital Signs Vital Sign Reading Time Taken Comments Blood Pressure 180/110 05/15/2003 3:40 PM FACILITY MECHANIC Pulse 88 05/15/2003 3:40 PM FACILITY MECHANIC Temperature - - Respiratory Rate 16 05/15/2003 3:40 PM FACILITY MECHANIC Oxygen Saturation - - Inhaled Oxygen Concentration - - Weight 108.4 kg (239 lb) 05/15/2003 3:40 PM FACILITY MECHANIC Height - - Body Mass Index 37.43 04/07/2002 3:20 PM FACILITY MECHANIC documented in this encounter Progress Notes 05/15/2003 3:40 PM FACILITY MECHANIC Stephanie Norman is here today for f/u meds-heartburn Are you having other pain today, that you want to discuss with the provider? -NO Do you need refills on any of your medications today? -YES Preventive Services up to date? NO Immunizations up to date? -YES Do you ever feel physically threatened or emotionally afraid? -NO Tobacco Status reviewed? (see History Social-Substance) -YES oil pit attendant offered? -NOT APPLICABLE. Aspirin taken daily? -NO BP was taken on the RIGHT arm. BP cuff size used? -Adult Large Health Education given? -NO. Contact phone number [phone] (home) [phone](work), alternate phone number nd B/P. Ev Piper LPN 05/15/2003 3:46 PM 2nd B/P-170/100-sm.cuff ,160/96-lge. cuff Current outpatient prescriptions:CIMETIDINE (TAGAMET) 800MG ORAL TABS, 1 TABLET AT BEDTIME, Disp: 90, Rfl: 3 Tiffany Gonzalez - 05/15/2003 12:00 AM CSTS. 38-year old female with history of polycystic kidney disease, presents for medication refill. On presentation, blood pressure significantly elevated. She had made the appointment for refill of Cimetidine for heartburn. Complaining that Cimetidine 400 mg b.i.d. was not helpful for the heartburn. She was taking some of her father's Ranitidine and states that that works better. She is requesting the Ranitidine. Of late she has had an episode of hematuria. Is being followed by Urology right now to rule out ill pathology. States that episode of blood in the urine was seen a month ago. Has not returned since then. Of note, is change in her creatinine. It was 1.2 last October and a recent creatinine showed 1.4. No previous history of hypertension. No coronary artery disease in family history. Father does have polycystic kidney disease and did have a kidney transplant. Stephanie has never been under the care of a insulation inspector. She was diagnose with polycystic kidney disease when she was being worked up as a possible donor for her father. She found out that she had this condition more than 10 years ago. OBJECTIVE: Overweight female in no acute distress. Weight 239. Blood pressure is 160/96 with the large cuff. Repeat was 180/110. 10 minutes later repeat blood pressure 160/118. Urinalysis today showed trace leukocytes, negative nitrites, negative protein, negative blood. ASSESSMENT: 1. Hypertension. 2. Polycystic kidney disease. PLAN: 1. Start Lisinopril 10 mg p.o. qd. Follow-up in 10 days for repeat blood pressure. Will recheck creatinine at that time. Will also recheck potassium level. 2. Continue follow through with urology. Will consider nephrology consult on her next visit. She is in agreement with plan. A cc: LITY MECHANIC documented in this encounter Plan of Treatment Not on filedocumented as of this encounter Visit Diagnoses Diagnosis Unspecified essential hypertension (HRC) Unspecified essential hypertension Polycystic kidney, unspecified type documented in this encounter Care Teams Four Roll Calender Operator Relationship Specialty Start Date End Date Tiffany Gonzalez, CENSUS TAKER, DNP PCP - General 01/16/00 02/03/16 [address] [place] [id number] documented as of this encounter
--- OUTSIDE RECORDS SUMMARY | 2021-12-28 14:22 | XMS_ITS | Encounter Summary ---
:1965 Author Organization [facility] Address [address] [place] [address] Care Team Providers Name Role Phone Tiffany Gonzalez APRN, DNP Primary Care Provider Encounter Details Date Type Department Care Team Description 09/14/2002 Office Visit [place] Lisa, DERMATITIS NOS; Family Practice Tiffany Still APRN, SPRAIN/STRAIN OF ANKLE NOS; [address] [place] [address] NE DNP ELEV BL PRES W/O HYPERTN; [place], [place] [address] POLYCYSTIC KIDNEY, UNSPEC [address] [place] [address] [phone] (Wo rk) Social History Tobacco Use Types Packs/Day Years Used Date Smoking Tobacco: Former Alcohol Use Standard Drinks/Week Comments Yes 0 (1 standard drink = 0.6 oz pure alcoho l) rarely Sex Assigned at Date Recorded Not on file documented as of this encounter Last Filed Vital Signs Vital Sign Reading Time Taken Comments Blood Pressure 150/102 09/14/2002 8:20 AM CDT Pulse 88 09/14/2002 8:20 AM CDT Temperature - - Respiratory Rate 16 09/14/2002 8:20 AM CDT Oxygen Saturation - - Inhaled Oxygen Concentration - - Weight - - Height - - Body Mass Index - - documented in this encounter Progress Notes 09/14/2002 8:20 AM CDT Stephanie Norman is here today for rash-R arm x2 weeks,L ankle pain-twisted on 09/09/02 Are you having other pain today, that you want to discuss with the provider? -YES Preventive Services up to date? -YES Immunizations up to date? -YES Do you ever feel physically threatened or emotionally afraid? -NO Tobacco Status reviewed? (see History Social-Substance) -YES lunchroom attendant offered? -NOT APPLICABLE. Aspirin taken daily? -NO BP was taken on the LEFT arm. Large cuff used? -NO Health Education given? -NO. Contact phone number [phone](home) [phone](work), alternate phone number . Ev Piper, JAILYN 09/14/2002 8:32 AM TRIAMCINOLONE ACETONIDE 0.1% CREAM, apply to aff. area and rub in gently ; cover with Saran wrap for30 min. tid, D: 60g, R: 0; CIMETIDINE (TAGAMET) 800MG ORAL TABS, 1 TABLET AT BEDTIME, D: 90, R: 3 2nd B/P_140/86 ,lge cuff-140/84 Tiffany Gonzalez - 09/14/2002 12:00 AM CDTSUBJECTIVE: Patient is a 37-year old female presents with three concerns: 1. Rash to the right arm. 2. Left ankle injury. 3. Not a presenting complaint but she now is concerned about elevated blood pressure on today's visit. There is a history of polycystic kidney disease. Her blood pressure along with creatinine and urine needs to be closely monitored for abnormalities. She had a normal creatinine level in April 2002, 24-hour urine creatinine clearance, borderline at that time as well. 1. Rash to the right antecube (S/L?) a couple of weeks ago. Wonders of it was related to the sun, however, in the past she has had a problem with heat rash. However, was in the sun all afternoon about five days ago and thought that the rash was actually going away. Over the past few days it has returned again. Has tried an antifungal cream without any relief. Has not tried any cortisone cream. No previous history of eczema. 2. Yesterday twisted the left ankle as she was walking. She heard it pop. Was able to continue walking on it. Today has noticed increased swelling and discomfort. Had put ice on it last night. Has not taken any Tylenol or ibuprofen. OBJECTIVE: Pleasant female in no acute distress. BP: 150/102. Repeat blood pressure 140/86. Pulse: 88. Respirations: 16. Large cuff repeated on the right blood pressure and it was 140/84. Obese female in no acute distress. Right antecube with erythematous micro-papules in a scattered distribution. Left ankle with mild edema to lateral side. She was walking without any limp. Denies pain to palpation of left medial malleolus or base of left 5th and TP. Able to perform bowoj-qj-wrrhpp without any difficulty. Could not perform a straight leg raise on the left because of discomfort. Flexion, extension without difficulty. No medial or lateral laxity on deviation of the ankle. ASSESSMENT: Dermatitis right antecube. Mild ankle sprain. Elevated blood pressure with history of polycystic kidney disease. PLAN: Apply savs-nct-tcefwyn cortisone ointment to right antecube b.i.d. over the next 10 days. Ankle stirrup given for the left as well as brace for her to use while she goes on vacation over the next couple of weeks. Start progression ankle exercises at Stage 2. Do not progress to Stage 3 until there is no pain with Stage 2. She verbalized understanding. Plan to go to [place] and is concerned about twisting it again as it feels weak. Will follow-up in a month for repeat blood pressure and will do a creatinine level at that time. Had discussed with patient during that and yzov-lnh-mihp because of her recent urine creatinine ratio. She is in agreement with plan. P cc: documented in this encounter Plan of Treatment Not on filedocumented as of this encounter Visit Diagnoses Diagnosis Contact dermatitis and other eczema, due to unspecified cause Sprain of ankle, unspecified site Elevated blood pressure reading without diagnosis of hypertension Polycystic kidney, unspecified type documented in this encounter Care Teams Ichthyologist Relationship Specialty Start Date End Date Tiffany Gonzalez, SAP HANA DEVELOPER, DNP PCP - General 01/16/00 02/03/16 [address] [place] [id number] documented as of this encounter
--- OUTSIDE RECORDS SUMMARY | 2021-12-28 14:22 | XMS_ITS | Encounter Summary ---
:1965 Author Organization [facility] Address [address] [place] [address] Care Team Providers Name Role Phone Tiffany Gonzalez APRN, DNP Primary Care Provider Encounter Details Date Type Department Care Team Description 08/07/2002 Correspondence None Unknown, Physici an CONSENT/ROIS/AOB [address] [place] [address] (Wo rk) Social History Tobacco Use Types Packs/Day Years Used Date Smoking Tobacco: Never Assessed Sex Assigned at Date Recorded Not on file documented as of this encounter Progress Notes Unknown, Physician - 08/07/2002 12:00 AM CDT documented in this encounter Plan of Treatment Not on filedocumented as of this encounter Visit Diagnoses Not on filedocumented in this encounter Care Teams Saw Tailer Relationship Specialty Start Date End Date Tiffany Gonzalez APRN, GAIL PCP - General 01/16/00 02/03/16 [address] [place] [id number] documented as of this encounter
--- OUTSIDE RECORDS SUMMARY | 2021-12-28 14:22 | XMS_ITS | Encounter Summary ---
:1965 [address] [facility] Address [address] [place] [address] Care Team Providers Name Role Phone Tiffany Gonzalez APRN, DNP Primary Care Provider Encounter Details Date Type Department Care Team Description 10/17/2002 Correspondence [place] [facility] Jerel Gonzalez, LAB RESULTS Practice GAIL [facility]UL[facility] [address] [place] [address] [place] [address] [place], [place] [address] [phone] Social History Tobacco Use Types Packs/Day Years Used Date Smoking Tobacco: Former Alcohol Use Standard Drinks/Week Comments Yes 0 (1 standard drink = 0.6 oz pure alcoho l) rarely Sex Assigned at Date Recorded Not on file documented as of this encounter Progress Notes Tiffany Gonzalez - 10/17/2002 12:00 AM CDT documented in this encounter Plan of Treatment Not on filedocumented as of this encounter Visit Diagnoses Not on filedocumented in this encounter Care Teams Senior Contracts Manager Relationship Specialty Start Date End Date Tiffany Gonzalez APRN, DNP PCP - General 01/16/00 02/03/16 [address] [place] [id number] documented as of this encounter
--- OUTSIDE RECORDS SUMMARY | 2021-12-28 14:22 | XMS_ITS | Encounter Summary ---
:1965 Author Organization [facility] Address [address] [place] [address] Care Team Providers Name Role Phone Tiffany Gonzalez APRN, DNP Primary Care Provider Encounter Details Date Type Department Care Team Description 10/23/2002 Orders Only [place] [facility] Olimpia Bartholomew MD [facility] [address] [place] [id number] (Wo rk) Social History Tobacco Use Types Packs/Day Years Used Date Smoking Tobacco: Former Alcohol Use Standard Drinks/Week Comments Yes 0 (1 standard drink = 0.6 oz pure alcoho l) rarely Sex Assigned at Date Recorded Not on file documented as of this encounter Plan of Treatment Not on filedocumented as of this encounter Procedures Procedure Name Priority Date/Time Associated Diagnosis Comme nts POTASSIUM Routine 10/23/2002 9:58 AM Results f or this CDT procedure are i n the results section . documented in this encounter Results POTASSIUM (10/23/2002 9:58 AM CDT) athologist Signature Potassium 5.0 3.5 - 5.3 [facility] mmol/L Specimen Anatomical Collection Method Collection Time Receive d Time (Source) Location / / Volume Laterality 10/23/2002 9:58 AM 3 9:59 CDT AM CDT Celsa Bartholomew MD LAB_1 Performing Organization Address City/State/ZIP Code Phon e Number [facility] [phone] [facility] [address] [place] [phone] documented in this encounter Visit Diagnoses Not on filedocumented in this encounter Care Teams Wildlife Forensic Geneticist Relationship Specialty Start Date End Date Tiffany Gonzalez APRN, DNP PCP - General 01/16/00 02/03/16 [address] [place] [id number] documented as of this encounter
--- OUTSIDE RECORDS SUMMARY | 2021-12-28 14:22 | XMS_ITS | Encounter Summary ---
:1965 Author Organization [facility] Address [address] [place] [address] Care Team Providers Name Role Phone Tiffany Gonzalez ACCOUNT CONTACT ASSOCIATE, DNP Primary Care Provider [phone] Encounter Details Date Type Department Care Team Description 10/17/2002 Orders Only [place] Tiffany Gonzalez, Laboratory ACCOUNT CONTACT ASSOCIATE, DNP [address] [place] [address] (Wo rk) Social History [...] Procedure Name Priority Date/Time Associated Comments Diagnosis TSH, SENSITIVE (WITH Routine 10/17/2002 8:30 AM R esults for this REFLEX) CDT procedure are i n the results section. SODIUM Routine 10/17/2002 8:30 AM Results f or this CDT procedure are i n the results section. POTASSIUM Routine 10/17/2002 8:30 AM Results f or this CDT procedure are i n the results section. CREATININE Routine 10/17/2002 8:30 AM Results f or this CDT procedure are i n the results section. ECG TRACING Routine 10/17/2002 8:30 AM Results f or this CDT procedure are i n the results section. documented in this encounter Results SODIUM (10/17/2002 8:30 AM CDT) athologist Signature Sodium 140 135 - 145 [facility] mmol/L Specimen Anatomical Collection Method Collection Time Receive d Time (Source) Location / / Volume Laterality 10/17/2002 8:30 AM 3 8:32 CDT AM CDT Tiffany Gonzalez APRN, DNP LAB_1 Performing Organization Address City/[facility] Phon e Number [facility] [employer] [phone] [phone] (ABNORMAL) POTASSIUM (10/17/2002 8:30 AM CDT) athologist Signature Potassium 5.5 (H) 3.5 - 5.3 [facility] mmol/L Specimen Anatomical Collection Method Collection Time Receive d Time (Source) Location / / Volume Laterality 10/17/2002 8:30 AM 3 8:32 CDT AM CDT Tiffany Gonzalez APRN, DNP LAB_1 Performing Organization Address City/[facility] Phon e Number [employer] [phone] [phone] CREATININE (10/17/2002 8:30 AM CDT) athologist Signature Creatinine 1.2 0.5 - 1.2 [facility] mg/dl Specimen Anatomical Collection Method Collection Time Receive d Time (Source) Location / / Volume Laterality 10/17/2002 8:30 AM 3 8:32 CDT AM CDT Tiffany Gonzalez APRN, DNP LAB_1 Performing Organization Address [facility] Phon e Number [employer] [phone] [phone] TSH, SENSITIVE (10/17/2002 8:30 AM CDT) athologist Signature TSH 3.25 0.30 - 5.00 [facility] uIU/ml Thyroid Meds No [facility] Specimen Anatomical Collection Method Collection Time Receive d Time (Source) Location / / Volume Laterality 10/17/2002 8:30 AM 3 8:32 CDT AM CDT Tiffany Gonzalez APRN, DNP LAB_1 Performing Organization Address [facility]/ZIP [facility] Phon e Number [facility] [phone] [facility] [address] [place] [phone] EKG TRACING (10/17/2002 8:30 AM CDT) [facility] Method Time Signature EKG See Separate [facility] Report Specimen Anatomical Collection Method Collection Time Receive d Time (Source) Location / / Volume Laterality 10/17/2002 8:30 AM 3 8:32 CDT AM CDT Tiffany Gonzalez APRN, DNP EKG Performing Organization Address [facility] Phon e Number [facility] [phone] [phone] documented in this encounter Visit Diagnoses Not on filedocumented in this encounter Care Teams Life Teacher Relationship Specialty Start Date End Date Tiffany Gonzalez APRN, DNP PCP - General 01/16/00 02/03/16 [address] [id number] documented as of this encounter
--- OUTSIDE RECORDS SUMMARY | 2021-12-28 14:22 | XMS_ITS | Encounter Summary ---
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 [address] [place] [address] Social History Tobacco Use Types Packs/Day Years Used Date Smoking Tobacco: Former Alcohol Use Standard Drinks/Week Comments Yes 0 (1 standard drink = 0.6 oz pure alcoho l) rarely Sex Assigned at Date Recorded Not on file documented as of this encounter Last Filed Vital Signs Vital Sign Reading Time Taken Comments Blood Pressure 126/82 04/16/2003 1:40 PM BILLING MANAGER Pulse - - Temperature 36.6 ??C (97.8 ??F) 04/16/2003 1:40 PM BILLING MANAGER Respiratory Rate - - Oxygen Saturation - - Inhaled Oxygen Concentration - - Weight 107.5 kg (237 lb) 04/16/2003 1:40 PM BILLING MANAGER Height - - Body Mass Index 37.12 04/07/2002 3:20 PM BILLING MANAGER documented in this encounter Progress Notes 04/16/2003 1:40 PM BILLING MANAGER Stephanie Norman is here today for blood in urine. Are you having other pain today, that you want to discuss with the provider? -NO Do you need refills on any of your medications today? -NO Preventive Services up to date? -YES Immunizations up to date? -YES Do you ever feel physically threatened or emotionally afraid? -NO Tobacco Status reviewed? (see History Social-Substance) -YES chair car attendant offered? -NOT APPLICABLE. Aspirin taken daily? -NO BP was taken on the RIGHT arm. BP cuff size used? -Adult Large Health Education given? -NO. Contact phone number [phone] (home) [phone] (work), alternate phone number . Lina R Cady 04/16/2003 2:05 PM Willard Wade Amanda 04/16/2003 12:00 AM CSTPROBLEM: Blood in urine. S: This 38 year-old woman with known polycystic kidney disease states that last month two days before her period she did notice some red tint to her urine. This cleared. This week however from Wednesday to she noticed some generalized body aches and then Wednesday night she had beulah blood in the urine. She has not had fevers, chills, frequency or urination or dysuria. She does not smoke. She has had her creatinines checked regularly by Tiffany Gonzalez and they have always been OK. She found she had polycystic kidney disease when she was checked at the [place] some years ago. Because she was willing to donate a kidney to her father who had polycystic kidney disease. O: Pleasant woman. Weight 237. Temperature 97.8. Blood pressure 126/82. Examination of HEENT shows normal ears, nose, mouth and throat except for mild nasal congestion. Neck normal. Chest is clear. Heart is regular. Abdomen is soft, nontender, no organs or masses palpated. There is no flank pain. Urinalysis shows small leukocyte esterase, negative nitrites. Greater then 300 protein, negative glucose. Large blood, 50-100 RBC's, 20-50 WBC's, moderate bacteria. Flat and upright of the abdomen shows no obvious stones to my eye but will be sent to the radiologist. A: Hematuria. Consider polycystic kidney disease, UTI or renal stone. P: We set up a culture on the urine and we will wait for the results of that along with the x-ray interpretation. If infection is found she will be treated. Otherwise she needs probably further evaluation with ultrasound or CT and/or referral to Urology. Her home phone number is [phone]. P cc: ING MANAGER documented in this encounter Procedure Notes Cipriano Barbosaolfo - 04/16/2003 12:00 AM CSTAssociated Order(s): ABDOMEN FLAT & UPRIGHT/DECUB CLINICAL DATA: POLYCYSTIC KIDNEYS, ? RENAL STONE EXAMINATION: SUPINE AND UPRIGHT ABDOMEN 04/16/2003: FINDINGS: There is moderate amount of stool in the colon. The renal shadows are not adequately visualized. No definite nephrolithiasis. Bowel gas pattern is normal. Jeanette Baker MD 11:13 A cc: Willard Wade MD Radiology SL ING MANAGER documented in this encounter Plan of Treatment Not on filedocumented as of this encounter Procedures Procedure Name Priority Date/Time Associated Diagnosis Comme nts RADEX ABD COMPL Routine 04/16/2003 Hematuria Results for this W/DCBTS&/ERC VIEWS procedure are in the results section . documented in this encounter Results ABDOMEN FLAT & UPRIGHT/DECUB (04/16/2003) Anatomical Region Laterality Modality Other Specimen (Source) Anatomical Location Collection Method / Collectio n Time Received Time / Laterality Volume Transcriptions Cipriano Barbosaolfo - 04/16/2003 12:00 AM C STCLINICAL DATA: POLYCYSTIC KIDNEYS, ? RENAL STONE EXAMINATION: SUPINE AND UPRIGHT ABDOMEN 04/16/2003: FINDINGS: There is moderate amount of st ool in the colon. The renal shadows are not adequately visualized. N o definite nephrolithiasis. Bowel gas pattern is normal. Jeanette Baker MD 11:13 A cc: Willard Wade MD Radiology SL Willard Wade MD RAD_1 documented in this encounter Visit Diagnoses Diagnosis Hematuria - Primary documented in this encounter Care Teams Kitchen Worker Relationship Specialty Start Date End Date Tiffany Gonzalez, DIGITAL ARCHIVIST, DNP PCP - General 01/16/00 02/03/16 [address] [place] [id number] documented as of this encounter
--- OUTSIDE RECORDS SUMMARY | 2021-12-28 14:22 | XMS_ITS | Encounter Summary ---
:1965 Author Organization [facility] Address [address] [place] [address] Care Team Providers Name Role Phone Tiffany Gonzalez APRN, DNP Primary Care Provider Encounter Details Date Type Department Care Team Description 04/16/2003 Orders Only [facility] Willard Wade MD Social History Tobacco Use Types Packs/Day [...] Diagnosis Comme nts UA MICRO IF Waiting 04/16/2003 1:33 PM Results f or this TABULATING MACHINE MECHANIC procedure are i n the results section . UA MICRO Routine 04/16/2003 1:33 PM Results f or this TABULATING MACHINE MECHANIC procedure are i n the results section . documented in this encounter Results UA MICRO (04/16/2003 1:33 PM TABULATING MACHINE MECHANIC) [facility] gist Method Time Signature RBC'S 50-100 0 - 3 [facility] /hpf WBC'S 20-50 0 - 5 [facility] /hpf Epith, Few /hpf [facility] Squamous Bact Mod [facility] Casts 0 /lpf [facility] Other Few Mucous [facility] Specimen Anatomical Collection Method Collection Time Receive d Time (Source) Location / / Volume Laterality 04/16/2003 1:33 PM 3 1:35 TABULATING MACHINE MECHANIC PM TABULATING MACHINE MECHANIC Willard Wade MD LAB_1 Performing Organization Address [facility] Code Phon e Number [facility] [phone] [phone] (ABNORMAL) UA MICRO IF (04/16/2003 1:33 PM TABULATING MACHINE MECHANIC) athologist Signature Appr Dark Yel [facility] Appr Cloudy [facility] Sp Gr 1.019 1.005 - [facility] 1.030 Leuk Sml (A) [place] [facility] Nitr Neg [place] [facility] pH 5.0 4.5 - 8.0 [facility] Prot >300 (A) [place] mg/dl [facility] Gluc Neg [place] mg/dl [facility] Ket Tr (A) [place] mg/dl [facility] Urob 0.2 0.2 - 1.0 [facility] EU/dl Bili Neg [place] [facility] Blood Lrg (A) [place] [facility] Specimen Anatomical Collection Method Collection Time Receive d Time (Source) Location / / Volume Laterality 04/16/2003 1:33 PM 3 1:35 TABULATING MACHINE MECHANIC PM TABULATING MACHINE MECHANIC Willard Wade MD LAB_1 Performing Organization Address [facility] Phon e Number [facility] [employer] [phone] [phone] documented in this encounter Visit Diagnoses Not on filedocumented in this encounter Care Teams Roofing Sales Representative Relationship Specialty Start Date End Date Tiffany Gonzalez, SAP BUSINESS OBJECTS CONSULTANT, DNP PCP - General 01/16/00 02/03/16 [address] [id number] documented as of this encounter
--- OUTSIDE RECORDS SUMMARY | 2021-12-28 14:22 | XMS_ITS | Encounter Summary ---
:1965 Author Organization [facility] Address [address] [place] [address] Care Team Providers Name Role Phone Tiffany Gonzalez APRN, DNP Primary Care Provider [phone] Reason for Visit Reason Comments INJURY, ANKLE riuc trauma Encounter Details Date Type Department Care Team Description 09/09/2002 Telephone Careline Greg Thompson, INJURY, ANKLE (riuc [address] maintenance crew worker) [place], [place] [address] [facility] [phone] [facility] [address] Social History Tobacco Use Types Packs/Day Years Used Date Smoking Tobacco: Never Assessed Sex Assigned at Date Recorded Not on file documented as of this encounter Nursing Notes 09/09/2002 11:59 PM CDT >> ROSENDO Centeno September 10, 2002 6:48 AM PT declined appt...feeling better >> GREG Guillory September 09, 2002 10:13 PM >> CALL RECEIVED. Contact: self TRIAGE REFERENCE: ANKLE TRAUMA - TRAUMA CNG (c) 2001 STAT SYMPTOMS: none per guideline. ASSESSMENT: Incident: stepped into hole, then twisted ankle while walking, occurred 3 hour(s). Pain description: Continuous, Pressure, Tender to touch. CMS/temperature/alignment of foot WNL: ice has been applied. Able to walk on foot: Yes. Swelling: slight. Work related: No. Complicating factors: H/O ankle injury. PMH: Healthy. CURRENT MEDICATIONS: cimetidine. MEDICATION ALLERGIES: simone, amoxicillin. HOME TREATMENT: discussed per guideline. PLAN: UC in am. documented in this encounter Plan of Treatment Not on filedocumented as of this encounter Visit Diagnoses Not on filedocumented in this encounter Care Teams Intermodal Customer Service Relationship Specialty Start Date End Date Tiffany Gonzalez APRN, DNP PCP - General 01/16/00 02/03/16 [address] [place] [id number] documented as of this encounter
--- OUTSIDE RECORDS SUMMARY | 2021-12-28 14:22 | XMS_ITS | Encounter Summary ---
:1965 Author Organization [employer] Address [address] [place] [address] Care Team Providers Name Role Phone Tiffany Gonzalez OPTICAL LATHE OPERATOR, DNP Primary Care Provider [phone] Encounter Details Date Type Department Care Team Description 06/01/2003 Orders Only [place] Tiffany Gonzalez, Laboratory OPTICAL LATHE OPERATOR, DNP [address] [place] [address] (Wo rk) Social History Tobacco Use [...] Procedure Name Priority Date/Time Associated Comments Diagnosis GC (N. Routine 06/01/2003 2:47 PM Results f or this GONORRHOEAE)(14 WASH HOUSE SUPERVISOR procedure ar e in YEARS AND OLDER) the results section. SODIUM Routine 06/01/2003 2:47 PM Results f or this WASH HOUSE SUPERVISOR procedure are i n the results section. POTASSIUM Routine 06/01/2003 2:47 PM Results f or this WASH HOUSE SUPERVISOR procedure are i n the results section. CREATININE Routine 06/01/2003 2:47 PM Results f or this WASH HOUSE SUPERVISOR procedure are i n the results section. CHLAMYDIA (14 YEARS Routine 06/01/2003 2:47 PM Re sults for this AND OLDER) WASH HOUSE SUPERVISOR procedure are i n the results section. documented in this encounter Results GC (N. GONORRHOEAE) (06/01/2003 2:47 PM WASH HOUSE SUPERVISOR) [facility] Method Time Signature GC (N. Negative NEG [facility] gonorrhoeae) GC (N. Test [facility] gonorrhoeae) Performed by PCR Assay Source Cervix [facility] Specimen Anatomical Collection Method Collection Time Receive d Time (Source) Location / / Volume Laterality 06/01/2003 2:47 PM 4 2:48 WASH HOUSE SUPERVISOR PM WASH HOUSE SUPERVISOR Tiffany Gonzalez APRN, DNP LAB_1 Performing Organization Address [facility] Phon e Number [facility] Ti[employer]do [phone] [phone] CHLAMYDIA (06/01/2003 2:47 PM WASH HOUSE SUPERVISOR) [facility] Method Time Signature Chlamydia Negative NEG [facility] Chlamydia Test Performed [facility] by PCR Assay Source Cervix [facility] Specimen Anatomical Collection Method Collection Time Receive d Time (Source) Location / / Volume Laterality 06/01/2003 2:47 PM 4 2:48 WASH HOUSE SUPERVISOR PM WASH HOUSE SUPERVISOR Tiffany Gonzalez APRN, DNP LAB_1 Performing Organization Address [facility] Phon e Number [employer] [phone] [phone] SODIUM (06/01/2003 2:47 PM WASH HOUSE SUPERVISOR) athologist Signature Sodium 137 135 - 145 [facility] mmol/L Specimen Anatomical Collection Method Collection Time Receive d Time (Source) Location / / Volume Laterality 06/01/2003 2:47 PM 4 2:48 WASH HOUSE SUPERVISOR PM WASH HOUSE SUPERVISOR Tiffany Gonzalez APRN, DNP LAB_1 Performing Organization Address [facility] Phon e Number [employer] [phone] [facility] [address] [place] [phone] POTASSIUM (06/01/2003 2:47 PM WASH HOUSE SUPERVISOR) P athologist Signature Potassium 4.7 3.5 - 5.3 [facility] mmol/L Specimen Anatomical Collection Method Collection Time Receive d Time (Source) Location / / Volume Laterality 06/01/2003 2:47 PM 4 2:48 WASH HOUSE SUPERVISOR PM WASH HOUSE SUPERVISOR Tiffany Gonzalez APRN, DNP LAB_1 Performing Organization Address [facility] Phon e Number [facility] [phone] [facility] [address] [place] [phone] CREATININE (06/01/2003 2:47 PM WASH HOUSE SUPERVISOR) Patholo gist Method Time Signature Creatinine 1.3 0.6 - 1.3 [facility] mg/dl Creatinine PLEASE NOTE [facility] CHANGE IN EXPECTED VALUES Specimen Anatomical Collection Method Collection Time Receive d Time (Source) Location / / Volume Laterality 06/01/2003 2:47 PM 4 2:48 WASH HOUSE SUPERVISOR PM WASH HOUSE SUPERVISOR Tiffany Gonzalez APRN, DNP LAB_1 Performing Organization Address [facility] Phon e Number [facility] [employer] [phone] [phone] documented in this encounter Visit Diagnoses Not on filedocumented in this encounter Care Teams Java Technical Manager Relationship Specialty Start Date End Date Tiffany Gonzalez APRN, DNP PCP - General 01/16/00 02/03/16 [id number] [place] [id number] documented as of this encounter
--- OUTSIDE RECORDS SUMMARY | 2021-12-28 14:22 | XMS_ITS | Encounter Summary ---
:1965 Author Organization [facility] [employer] [facility] Address [address] [place] [address] Care Team Providers Name Role Phone Tiffany Gonzalez APRN, GAIL Primary Care Provider Encounter Details Date Type Department Care Team Description 08/07/2002 Office Visit [facility] EFFECT DRUG MED/BIO SUBST UNSPEIFIED; Family Lyudmila Pickett MD DERMATITIS NOS [address] [place] [address] PR[address] [place] [address] [place] [address] Social History Tobacco Use Types Packs/Day Years Used Date Smoking Tobacco: Never Assessed Sex Assigned at Date Recorded Not on file documented as of this encounter Last Filed Vital Signs Vital Sign Reading Time Taken Comments Blood Pressure 140/84 08/07/2002 10:00 AM CDT Pulse 80 08/07/2002 10:00 AM CDT Temperature - - Respiratory Rate - - Oxygen Saturation - - Inhaled Oxygen Concentration - - Weight 110 kg (242 lb 9.6 oz) 08/07/2002 10:00 AM CDT Height - - Body Mass Index 38 04/07/2002 3:20 PM DICTAPHONE MECHANIC documented in this encounter Progress Notes 08/07/2002 10:00 AM CDT Pos allergic reaction to otc cream Had scrape on arm now has blisters C Truong Mir LPN - 08/07/2002 12:00 AM CDTS: [age] year-old female with weepy eruption on her right forearm volar surface. Started about a week ago. Almost two weeks ago. She was clearing some brush after a tree had been felled in her yard. She had some scratches with a crust over them and her roommate suggested she use triple antibiotic ointment on it. It was after that application several times that she had the current eruption. O: Weight 242. Blood pressure 140/84. Pulse 80. Alert, pleasant, cooperative interactive. Examination of the skin shows an oval patch approximately 9x4 centimeters. Located over the ulnar aspect of the forearm. It is raised, vesiculated, weepy but intact and indurated. No surrounding erythema except for erythematous reaction to tape from Band-Aid that she has had over it. Denies intensive itching, however the patient is on Cimetidine for gastrointestinal reflux. 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 P: Avoid using triple antibiotic or other antibiotic ointments with Neomycin in them in the future. Triamcinolone 1/10th percent cream applied three times a day. Cover with saran wrap 30 minutes, dispense 60 grams. Use a clean cotton hanky to cover this area during the day so is to avoid tape irritation. Return as needed. IN SUMMARY: CONTACT DERMATITIS 10:19 A cc: documented in this encounter Plan of Treatment Not on filedocumented as of this encounter Visit Diagnoses Diagnosis Other and unspecified adverse effect of drug, medicinal and biological substance Contact dermatitis and other eczema, due to unspecified cause documented in this encounter Care Teams Dietetic Technician Relationship Specialty Start Date End Date Tiffany Gonzalez, PALOMO, DNP PCP - General 01/16/00 02/03/16 [address] [place] [id number] documented as of this encounter
--- OUTSIDE RECORDS SUMMARY | 2021-12-28 14:22 | XMS_ITS | Encounter Summary ---
:1965 Author Organization [employer] Address [address] [place] [address] Care Team Providers Name Role Phone Tiffany Gonzalez APRN, DNP Primary Care Provider Encounter Details Date Type Department Care Team Description 06/01/2003 Office Visit Gonzalez Lisa, PREVENTIVE CARE EXAM; Family Practice Tiffany Still APRN, SCREENING MAL NEOP-CERVIX; [address] [place] POLYCYSTIC KIDNEY, UNSPEC; [place], [place] [address] [address] [place] [address] [phone] (Wo rk) Social History Tobacco Use Types Packs/Day Years Used Date Smoking Tobacco: Every Day Comments: 2 cigs/week Alcohol Use Standard Drinks/Week Comments Yes 0 (1 standard drink = 0.6 oz pure alcoho l) rarely Sex Assigned at Date Recorded Not on file documented as of this encounter Last Filed Vital Signs Vital Sign Reading Time Taken Comments Blood Pressure 134/98 06/01/2003 2:00 PM SIGNWRITER Pulse 88 06/01/2003 2:00 PM SIGNWRITER Temperature - - Respiratory Rate 16 06/01/2003 2:00 PM SIGNWRITER Oxygen Saturation - - Inhaled Oxygen Concentration - - Weight 106.6 kg (235 lb) 06/01/2003 2:00 PM SIGNWRITER Height 169.5 cm (5' 6.75) 06/01/2003 2:00 PM SIGNWRITER Body Mass Index 37.08 06/01/2003 2:00 PM SIGNWRITER documented in this encounter Progress Notes 06/01/2003 2:00 PM SIGNWRITER Stephanie Norman is here today for pe/pap-LMP-05/17/03. Are you having other pain today, that you want to discuss with the provider? -NO Do you need refills on any of your medications today? -YES Preventive Services up to date? -YES Immunizations up to date? -YES Do you ever feel physically threatened or emotionally afraid? -NO Tobacco Status reviewed? (see History Social-Substance) -YES sewage plant attendant offered? -DECLINED. Aspirin taken daily? -NO BP was taken on the RIGHT arm. BP cuff size used? -Adult Regular Health Education given? -NO. Contact phone [phone] (home) [phone] (work), alternate phone number- Ev Piper LPN 06/01/2003 1:56 PM Current outpatient prescriptions:ZANTAC 150MG ORAL TABS, 1 po bid, Disp: 1 month , Rfl: 11; LISINOPRIL (PRINIVIL) 10MG ORAL TABS, 1 TABLET DAILY, Disp: 30, Rfl: 0 2nd-B/P-138/88 Tiffany Gonzalez - 06/01/2003 12:00 AM GXPSqebmv-xfku-eeoo-old female presents for pap and PE. S: Presents without any specific complaints. Has been followed up recently Urology for hematuria. She said an MRI was done on May 21 but hasn't heard back from Dr. Aldana as of yet. She asks if it time now for her to see a Milk Runner for her polycystic kidney disease. Has not had any official evaluation since her disease was found on the screen to donating a kidney to her father who had this illness. No longer having blood in her urine. Has a history of migraine headaches and infertility. Current medications: lisinopril 10 mg po q d recently started 2 weeks ago due to high blood pressure and Zantac 150 mg po b.i.d. for reflux esophagitis. Medication allergies: amoxicillin, penicillin, neomycin. SOCIAL HISTORY: currently smoking 2 cigarettes a week. Has quit for a year and half in the past. Denies alcohol or drug use. Sexually active with female partner. 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 Denies emotional or physical abuse in the past year. Immunizations: last tetanus December 1996. FAMILY HISTORY: father polycystic kidney disease and kidney transplant at age of 49. He also has skin cancer, hypertension and breast cancer at age 64. Mother has breast cancer who at age 41. One sibling who donated kidney to her father. One sister without medical problems. REVIEW OF SYSTEMS: normal menses. Last cycle May 17, 2003. Remainder of systems negative. O: Overweight female in no acute distress. TM's without erythema, edema or cerumen. Pharynx clear. Thyroid without enlargement or nodules felt. No lymphadenopathy to preauricular tonsillar, anterior or posterior cervical chain nodes. Cardiac S1, S2 without murmur or gallop or rub. Lung sounds clear to auscultation anterior and posterior. Cardiac S1, S2 without murmur, gallop or rub. Lung sounds clear to auscultation anterior and posterior. Abdomen: positive bowel sounds all 4 quads. No organomegaly is felt and no tenderness on palpation. Breasts equal symmetry. No skin changes, retraction or nipple discharge. No masses felt. No axillary lymphadenopathy. On pelvic exam external genitalia without erythema, edema or skin lesions. Speculum placed without difficulty. Cervix visualized and cervical broom used to obtain cells for pap without spot bleeding. GC culture obtained per protocol. No masses felt at bilateral adnexa. Rectovaginal confirmed no masses. A: 1. Preventative services. 2. Pap. 3. Polycystic kidneys. 4. Obesity. P: 1. Encouraged calcium intake to equal 1200 mg a day. Mammogram. Cholesterol was normal last year. Will obtain sodium, potassium and creatinine level because of adding Lisinopril. Also will add a 24-hour urine creatinine clearance. Refer to Nephrology. Encouraged her to call Urology for her MRI results. Encouraged physical activity program for weight management. She will be notified of lab results. Continue the Lisinopril 10 mg po q d unless otherwise notified. P cc: WRITER documented in this encounter Plan of Treatment Not on filedocumented as of this encounter Visit Diagnoses Diagnosis Routine general medical examination at [facility] Routine general medical examination at a health care facility Screening for malignant neoplasm of the cervix Polycystic kidney, unspecified type Obesity, unspecified ([facility]) Obesity, unspecified documented in this encounter Care Teams Quarter Backer Relationship Specialty Start Date End Date Tiffany Gonzalez APRN, DNP PCP - General 01/16/00 02/03/16 [address] [place] [id number] documented as of this encounter
--- OUTSIDE RECORDS SUMMARY | 2021-12-28 14:22 | XMS_ITS | Encounter Summary ---
:1965 Author Organization [facility] Address [address] [place] [address] Care Team Providers Name Role Phone Tiffany Gonzalez APRN, DNP Primary Care Provider [phone] Encounter Details Date Type Department Care Team Description 04/23/2003 Telephone [facility] Willard Wade MD [address] [place] [address] [id number] Social History Tobacco Use Types Packs/Day Years Used Date Smoking Tobacco: Former Alcohol Use Standard Drinks/Week Comments Yes 0 (1 standard drink = 0.6 oz pure alcoho l) rarely Sex Assigned at Date Recorded Not on file documented as of this encounter Progress Notes Willard Wade - 04/23/2003 12:00 AM MANAGEMENT LEAD GEMENT LEAD documented in this encounter Plan of Treatment Not on filedocumented as of this encounter Visit Diagnoses Not on filedocumented in this encounter Care Teams Utility Tractor Operator Relationship Specialty Start Date End Date Tiffany Gonzalez APRN, GAIL PCP - General 01/16/00 02/03/16 [address] [id number] documented as of this encounter
--- OUTSIDE RECORDS SUMMARY | 2021-12-28 14:22 | XMS_ITS | Encounter Summary ---
:1965 Author Organization [facility] Address [address] [place] [address] Care Team Providers Name Role Phone Tiffany Gonzalez APRN, DNP Primary Care Provider Encounter Details Date Type Department Care Team Description 08/24/2002 Office Visit [facility] Optometr y Kojo Lawrence, EYE & VISION EXAMINATION; [address] [place]; [place], [place] [address] ASTIGMATISM NOS [phone] Social History Tobacco Use Types Packs/Day Years Used Date Smoking Tobacco: Never Assessed Sex Assigned at Date Recorded Not on file documented as of this encounter Progress Notes Kojo Lawrence, OD - 08/24/2002 12:00 AM CDT documented in this encounter Plan of Treatment Not on filedocumented as of this encounter Visit Diagnoses Diagnosis Examination of eyes and vision Myopia Astigmatism, unspecified documented in this encounter Care Teams Dust Collector Treater Relationship Specialty Start Date End Date Tiffany Gonzalez APRN, GAIL PCP - General 01/16/00 02/03/16 [address] [place] [id number] documented as of this encounter
--- OUTSIDE RECORDS SUMMARY | 2021-12-28 14:22 | XMS_ITS | Encounter Summary ---
:1965 Author Organization [facility] Address [address] [place] [address] Care Team Providers Name Role Phone Tiffany Gonzalez APRN, DNP Primary Care Provider Encounter Details Date Type Department Care Team Description 10/17/2002 Office Visit [place] Lisa, POLYCYSTIC KIDNEY, UNSPEC; Family Practice Tiffany Still APRN, OBESITY NOS; [address] [place] [address] DNP PAINFUL RESPIRATION; [place], [place] [address] CHEST PAIN NOS [address] [place], [place] [id number] (Wo rk) Social History Tobacco Use Types Packs/Day Years Used Date Smoking Tobacco: Former Alcohol Use Standard Drinks/Week Comments Yes 0 (1 standard drink = 0.6 oz pure alcoho l) rarely Sex Assigned at Date Recorded Not on file documented as of this encounter Last Filed Vital Signs Vital Sign Reading Time Taken Comments Blood Pressure 128/80 10/17/2002 8:00 AM CDT Pulse 64 10/17/2002 8:00 AM CDT Temperature - - Respiratory Rate 16 10/17/2002 8:00 AM CDT Oxygen Saturation - - Inhaled Oxygen Concentration - - Weight 110.7 kg (244 lb) 10/17/2002 8:00 AM CDT Height - - Body Mass Index 38.22 04/07/2002 3:20 PM ELECTROPLATER documented in this encounter Progress Notes 10/17/2002 8:00 AM CDT Stephanie Normna is here today for B/P check. Are you having other pain today, that you want to discuss with the provider? -NO Preventive Services up to date? -YES Immunizations up to date? -YES Do you ever feel physically threatened or emotionally afraid? -NO Tobacco Status reviewed? (see History Social-Substance) -YES elevator attendant offered? -NOT APPLICABLE. Aspirin taken daily? -NO BP was taken on the RIGHT arm. Large cuff used? -YES Health Education given? -NO. Contact phone number [phone] (home) [phone](work), alternate phone number . Ev Piper, JAILYN 10/17/2002 8:07 AM TRIAMCINOLONE ACETONIDE (KENALOG) 0.1% CREAM, apply to aff. area and rub in gently ; cover with Saran wrap for 30 min. tid, D: 60g, R: 0; CIMETIDINE (TAGAMET) 800MG ORAL TABS, 1 TABLET AT BEDTIME, D: 90, R: 3 Tiffany Gonzalez - 10/17/2002 12:00 AM CDTS: 37 year old female presents for follow-up on polycystic kidney disease. She had elevated blood pressure on last visit and is also due for creatinine check. Today her blood pressure is within normal limits. However, she has increased in her weight. I discussed with her performing some physical activity. Patient states that she denies any specific chest pain but has had some chest pressure on physical activity. That concerns her. She denies sweating or heart palpitations. Chest pressure does not radiate. States that not doing any physical activity will avoid the symptom altogether. Family history ; father with polycystic kidney disease and kidney transplant at age of 49. Father also has skin cancer and hypertension with recent breast cancer at age 64. Mother of breast cancer at age 41. One sister without major medical problems. Cholesterol from 03/20 was total 184, triglycerides 136, HDL 32 and LDL 125. Denies any blood in the urine. O: Pleasant, overweight female in no acute distress. Blood pressure 128/80, pulse 64, respirations 16. Weight 244. EKG; sinus bradycardia. Cardiac S1, S2 without murmur, gallop or rub. A: 1. Polycystic kidney disease. 2 Obesity. 3 Chest pressure. P: 1. Will check creatinine level. Refer to Dr. Celsa Bartholomew for further recommendations on patient's physical activity and whether or not some cardiac diagnostics should be performed. Further labs will be done today to rule out thyroid dysfunction and electrolyte level. Did point out to patient that she has gained 14 pounds since March,. Total of 20 minutes spent on the patient with 10 on counseling and coordination of care. P cc: documented in this encounter Plan of Treatment Not on filedocumented as of this encounter Visit Diagnoses Diagnosis Polycystic kidney, unspecified type Obesity, unspecified (HRC) Obesity, unspecified Painful respiration Chest pain, unspecified documented in this encounter Care Teams Engine Cleaner Relationship Specialty Start Date End Date Tiffany Gonzalez, HALL DIRECTOR, DNP PCP - General 01/16/00 02/03/16 [address] [place] [id number] documented as of this encounter
--- OUTSIDE RECORDS SUMMARY | 2021-12-28 14:22 | XMS_ITS | Encounter Summary ---
:1965 Author Organization [facility] Address [address] [place] [address] Care Team Providers Name Role Phone Tiffany Gonzalez APRN, DNP Primary Care Provider [phone] Encounter Details Date Type Department Care Team Description 10/17/2002 Office Visit [facility] Willard Wade M D CHEST PAIN NOS Practice [address] [place] [address] Social History Tobacco Use Types Packs/Day Years Used Date Smoking Tobacco: Former Alcohol Use Standard Drinks/Week Comments Yes 0 (1 standard drink = 0.6 oz pure alcoho l) rarely Sex Assigned at Date Recorded Not on file documented as of this encounter Plan of Treatment Not on filedocumented as of this encounter Visit Diagnoses Diagnosis Chest pain, unspecified documented in this encounter Care Teams Paraffiner Relationship Specialty Start Date End Date Tiffany Gonzalez APRN, GAIL PCP - General 01/16/00 02/03/16 [address] [place] [id number] documented as of this encounter
--- OUTSIDE RECORDS SUMMARY | 2021-12-28 14:22 | XMS_ITS | Encounter Summary ---
:1965 Author Organization [facility] Address [address] [place] [address] Care Team Providers Name Role Phone Tiffany Gonzalez APRN, DNP Primary Care Provider Encounter Details Date Type Department Care Team Description 10/23/2002 Correspondence [place] [facility] Olimpia Bartholomew Test Results Medicine MD [facility] [address] [place] [address] (Wo rk) Social History Tobacco Use Types Packs/Day Years Used Date Smoking Tobacco: Former Alcohol Use Standard Drinks/Week Comments Yes 0 (1 standard drink = 0.6 oz pure alcoho l) rarely Sex Assigned at Date Recorded Not on file documented as of this encounter Progress Notes Celsa Bartholomew - 10/23/2002 12:00 AM CDT documented in this encounter Plan of Treatment Not on filedocumented as of this encounter Visit Diagnoses Not on filedocumented in this encounter Care Teams Stock Analyst Relationship Specialty Start Date End Date Tiffany Gonzalez APRN, GAIL PCP - General 01/16/00 02/03/16 [address] [place] [id number] documented as of this encounter
--- OUTSIDE RECORDS SUMMARY | 2021-12-28 14:22 | XMS_ITS | Encounter Summary ---
:1965 Author Organization [facility] Address [address] [place] [address] Care Team Providers Name Role Phone Marcelo Gonzalez SODA TESTER, DNP Primary Care Provider [phone] Encounter Details Date Type Department Care Team Description 06/01/2003 Orders Only [place] Marcelo Gonzalez, Laboratory SODA TESTER, DNP [address] [place] [address] (Wo rk) Social History Tobacco Use [...] Diagnosis Comme nts PAP TEST, ROUTINE Routine 06/01/2003 12:00 AM Res ults for this POLISHER NUMERAL procedure are i n the results section. documented in this encounter Results PAP TEST, ROUTINE (06/01/2003 12:00 AM POLISHER NUMERAL) Component Value Ref Test Analysis Performed At [facility] Range Method Time Signature Cytology, Pap (NOTE) [facility] Atomic Physics Professor Cytology Report Patient Name: STEPHANIE NORMAN Taken: 06/01/03 Received: 06/04/03 Reported: 06/05/03 Physician(s): MARCELO GONZALEZ ([id number]) ?Source of Specimen Liquid routine Pap, cervical/endocervical: ?Specimen Adequacy ?Satisfactory for evaluation. ??Endocervical component present. ? Final Cytologic Interpretation/Result NEGATIVE FOR INTRAEPITHELIAL LESION OR MALIGNANCY (NILM) ? crw2/06/05/03 Electronically Signed Out By Elzbieta Thomas, ??CT (ASCP) Elzbieta Thomas, ??CT (ASCP) ?Pap Smear History ?Date of Last Menstrual Period: ? 05/17/03 ?Other Clinical Conditions: ?LAST PAP: NORMAL HPV reflex testing requested with interpretation of ASCUS ? Specimen (Source) Anatomical Collection Method Collection Time Re ceived Time Location / / Volume Laterality 06/01/2003 06/04/2003 3:02 PM POLISHER NUMERAL Marcelo Gonzalez APRN, DNP LAB_1 Performing Organization Address City/State/ZIP [facility] Phon e Number [address] [address] [place], [place] [phone] documented in this encounter Visit Diagnoses Not on filedocumented in this encounter Care Teams Housing Installer Relationship Specialty Start Date End Date Marcelo Gonzalez APRN, GAIL PCP - General 01/16/00 02/03/16 [address] [place] [address] documented as of this encounter
--- OUTSIDE RECORDS SUMMARY | 2021-12-28 14:22 | XMS_ITS | Encounter Summary ---
:1965 Author Organization [facility] Address [address] [place] [address] Care Team Providers Name Role Phone Tiffany Gonzalez APRN, DNP Primary Care Provider Encounter Details Date Type Department Care Team Description 10/17/2002 Orders Only [place] Family Unknown, Physician Practice [address] [place] [address] [place] [address] [phone] Social History Tobacco Use Types Packs/Day Years Used Date Smoking Tobacco: Former Alcohol Use Standard Drinks/Week Comments Yes 0 (1 standard drink = 0.6 oz pure alcoho l) rarely Sex Assigned at Date Recorded Not on file documented as of this encounter Procedure Notes Tiffany Gonzalez - 10/17/2002 12:00 AM CDTAssociated Order(s): CARDIAC ECHO documented in this encounter Plan of Treatment Not on filedocumented as of this encounter Procedures Procedure Name Priority Date/Time Associated Diagnosis Comme nts CARDIAC ECHO 10/17/2002 12:00 AM Results for this CDT procedure are i n the results section . documented in this encounter Results CARDIAC ECHO (10/17/2002 12:00 AM CDT) Narrative 10/17/2002 12:00 AM CDT This result has an attachment that is no t available. Ordered by an unspecified provider. Transcriptions Tiffany Gonzalez - 10/17/2002 12:0 0 AM CDT Physician Unknown DUMMY/OTHER/AR documented in this encounter Visit Diagnoses Not on filedocumented in this encounter Care Teams Technology Teacher Relationship Specialty Start Date End Date Tiffany Gonzalez, EDUCATION REVIEWER, DNP PCP - General 01/16/00 02/03/16 [address] [place] [id number] documented as of this encounter
--- OUTSIDE RECORDS SUMMARY | 2021-12-28 14:22 | XMS_ITS | Encounter Summary ---
:1965 Author Organization [facility] Address [address] [place] [address] Care Team Providers Name Role Phone Tiffany Gonzalez APRN, DNP Primary Care Provider [phone] Encounter Details Date Type Department Care Team Description 05/08/2003 Orders Only [place] Issa Aldana MD [address] [address] (Wo rk) Social History Tobacco Use Types [...] Priority Date/Time Associated Diagnosis Comme nts CREATININE Routine 05/08/2003 11:43 AM Results for this THERAPEUTIC RIDING INSTRUCTOR procedure are i n the results section . documented in this encounter Results (ABNORMAL) CREATININE (05/08/2003 11:43 AM THERAPEUTIC RIDING INSTRUCTOR) [facility] Method Time Signature Creatinine 1.4 (H) 0.6 - 1.3 [facility] mg/dl Creatinine PLEASE NOTE [facility] CHANGE IN EXPECTED VALUES Specimen Anatomical Collection Method Collection Time Receive d Time (Source) Location / / Volume Laterality 05/08/2003 11:43 05/08/2003 AM THERAPEUTIC RIDING INSTRUCTOR 11:44 AM THERAPEUTIC RIDING INSTRUCTOR Issa Aldana MD LAB_1 Performing Organization Address City/State/ZIP Code Phon e Number [facility] [phone] [facility] [address] [phone] documented in this encounter Visit Diagnoses Not on filedocumented in this encounter Care Teams Metal Neutralizer Relationship Specialty Start Date End Date Tiffany Gonzalez APRN, DNP PCP - General 01/16/00 02/03/16 [address] [place] [id number] documented as of this encounter
--- OUTSIDE RECORDS SUMMARY | 2021-12-28 14:22 | XMS_ITS | Encounter Summary ---
:1965 Author Organization [facility] Address [address] [place] [address] Care Team Providers Name Role Phone Tiffany Gonzalez APRN, DNP Primary Care Provider Encounter Details Date Type Department Care Team Description 04/16/2003 Orders Only [facility] Willard Wade MD Social History Tobacco [...] Associated Diagnosis Comme nts URINE CULTURE Routine 04/16/2003 2:30 PM Results for this ASSOCIATE SOFTWARE APPLICATION ENGINEER procedure are i n the results section . documented in this encounter Results URINE CULTURE (MIDSTREAM) (04/16/2003 2:30 PM ASSOCIATE SOFTWARE APPLICATION ENGINEER) [facility] Method Time Signature Specimen Urine [facility] Description Special None [facility] Requests Culture No Growth [facility] After 1 Day Report Status Final [facility] [id number] Specimen Anatomical Collection Method Collection Time Receive d Time (Source) Location / / Volume Laterality 04/16/2003 2:30 PM 3 2:32 ASSOCIATE SOFTWARE APPLICATION ENGINEER PM ASSOCIATE SOFTWARE APPLICATION ENGINEER Willard Wade MD LAB_1 Performing Organization Address City/State/ZIP Code Phon e Number [facility] [phone] [facility] [address] [phone] documented in this encounter Visit Diagnoses Not on filedocumented in this encounter Care Teams Production Packager Relationship Specialty Start Date End Date Tiffany Gonzalez APRN, DNP PCP - General 01/16/00 02/03/16 [address] [place] [id number] documented as of this encounter
--- OUTSIDE RECORDS SUMMARY | 2021-12-28 14:23 | XMS_ITS | Encounter Summary ---
:1965 Author [facility] Address [address] [place] [address] Care Team Providers Name Role Phone Tiffany Gonzalez HEALTH CARE MARKETING MANAGER, DNP Primary Care Provider [phone] Encounter Details Date Type Department Care Team Description 03/22/2002 Orders Only [place] Tiffany Gonzalez, Laboratory HEALTH CARE MARKETING MANAGER, DNP [address] [place] [address] (Wo rk) Social History Tobacco Use Types Packs/Day Years Used Date Smoking Tobacco: Never Assessed Sex Assigned at Date Recorded Not on file documented as of this encounter Plan of Treatment Not on filedocumented as of this encounter Procedures Procedure Name Priority Date/Time Associated Comments Diagnosis LIPID PANEL, FAST > Routine 03/22/2002 9:28 AM Re sults for this 12 HOUR ASSOCIATE DEAN OF WOMEN procedure are i n the results section. SODIUM Routine 03/22/2002 9:28 AM Results f or this [facility]OC[facility] OF WOMEN procedure are i n the results section. POTASSIUM Routine 03/22/2002 9:28 AM Results f or this [facility] OF WOMEN procedure are i n the results section. CREATININE Routine 03/22/2002 9:28 AM Results f or this ASSOCIATE DEAN OF WOMEN procedure are i n the results section. documented in this encounter Results SODIUM (03/22/2002 9:28 AM ASSOCIATE DEAN OF WOMEN) P athologist Signature Sodium 138 135 - 145 [facility] mmol/L Specimen Anatomical Collection Method Collection Time Receive d Time (Source) Location / / Volume Laterality 03/22/2002 9:28 AM 2 9:31 ASSOCIATE DEAN OF WOMEN AM ASSOCIATE DEAN OF WOMEN Tiffany Gonzalez APRN, DNP LAB_1 Performing Organization Address [facility] Phon e Number [facility] [phone] [facility] [address] [phone] POTASSIUM (03/22/2002 9:28 AM ASSOCIATE DEAN OF WOMEN) athologist Signature Potassium 5.1 3.5 - 5.3 [facility] mmol/L Specimen Anatomical Collection Method Collection Time Receive d Time (Source) Location / / Volume Laterality 03/22/2002 9:28 AM 2 9:31 ASSOCIATE DEAN OF WOMEN AM ASSOCIATE DEAN OF WOMEN Tiffany Gonzalez APRN, DNP LAB_1 Performing Organization Address [facility] Phon e Number [facility] [phone] [facility] [address] [place] [phone] CREATININE (03/22/2002 9:28 AM ASSOCIATE DEAN OF WOMEN) athologist Signature Creatinine 1.2 0.5 - 1.2 [facility] mg/dl Specimen Anatomical Collection Method Collection Time Receive d Time (Source) Location / / Volume Laterality 03/22/2002 9:28 AM 2 9:31 ASSOCIATE DEAN OF WOMEN AM ASSOCIATE DEAN OF WOMEN Tiffany Gonzalez APRN, DNP LAB_1 Performing Organization Address [facility] Phon e Number [facility] [phone] [phone] (ABNORMAL) CHOLESTEROL LIPID PANEL FAST >12HR FAST (03/22/2002 9:28 AM ASSOCIATE DEAN OF WOMEN) athologist Signature Cholesterol 184 <200 mg/dl [facility] Triglyceride 136 <200 mg/dl [facility] HDL 32 (L) >35 mg/dl [facility] LDL, Calc. 125 mg/dl [facility] Hours Fasting 12 hours [facility] Specimen Anatomical Collection Method Collection Time Receive d Time (Source) Location / / Volume Laterality 03/22/2002 9:28 AM 2 9:31 ASSOCIATE DEAN OF WOMEN AM ASSOCIATE DEAN OF WOMEN Tiffany Gonzalez APRN, DNP LAB_1 Performing Organization Address City/State/ZIP Code Phon e Number [facility] [phone] [facility] [address] [phone] documented in this encounter Visit Diagnoses Not on filedocumented in this encounter Care Teams Stripper And Printer Relationship Specialty Start Date End Date Tiffany Gonzalez APRN, DNP PCP - General 01/16/00 02/03/16 [address] [id number] documented as of this encounter
--- OUTSIDE RECORDS SUMMARY | 2021-12-28 14:23 | XMS_ITS | Encounter Summary ---
:1965 Author Organization [facility] Address [address] [place] [address] Care Team Providers Name Role Phone Tiffany Gonzalez APRN, GAIL Primary Care Provider Encounter Details Date Type Department Care Team Description 04/03/2002 Office Visit [facility] Delgadillo , [facility] KATHIE Coreas MD [address] [place] [address] [place] [address] [address] [phone] [place] [phone] (Wo rk) Social History Tobacco Use Types Packs/Day Years Used Date Smoking Tobacco: Never Assessed Sex Assigned at Date Recorded Not on file documented as of this encounter Last Filed Vital Signs Vital Sign Reading Time Taken Comments Blood Pressure 128/82 04/03/2002 2:00 PM CARE ASST Pulse 80 04/03/2002 2:00 PM CARE ASST Temperature - - Respiratory Rate - - Oxygen Saturation - - Inhaled Oxygen Concentration - - Weight - - Height - - Body Mass Index - - documented in this encounter Progress Notes 04/03/2002 2:00 PM CARE ASST Stephanie Norman is here today forrash on abd,chest,back and legs. noted x 2 weeks. . Are you having other pain today, that you want to discuss with the provider? -NO Preventive Services up to date? not checked today. -{YES/NO NEEDS:58676} Immunizations up to date? -YES Do you ever feel physically threatened or emotionally afraid? -NOT ASKED Tobacco Status? -FORMER SMOKER; QUIT DATE 05/21 room attendants offered? -NOT APPLICABLE. Aspirin taken daily? -NO BP was taken on the RIGHT arm. Large cuff used? -YES Health Education given? -NO. Contact phone number [phone] (work) [phone] alternate phone number no Renée Farias RN 04/03/2002 2:04 PM Truong Delgadillo - 04/03/2002 12:00 AM CSTS. 37-year-old female in good health presents with a 1-2 week history of rash basically on trunk. She first noted a larger spot on her left flank area and then subsequently noticed other spots on her abdomen, back and proximal legs. Face and arms seemed to have been spared. She also notices a lesion at the base of the left side of her neck. O. Blood pressure 128/82. Pulse 80 and regular. Alert, pleasant and cooperative female in no distress. Denies itching. Examination of the skin of the trunk, neck, face, arms, and proximal legs shows basically truncal lesions. The typical flaquito patch configuration of morphology is seen in more than one of the lesions, notably resolving initial patch on the left flank, 3 smaller lesions of about 1 1/2 centimeter in their diameter along the skin fold lines of the abdomen and one on the left side of the neck. There are several smaller slightly raised tannish red typical pityriasis rosacea lesions scattered about the trunk. A. Pityriasis rosea. P. Described the nature, course, expected course and resolution to the patient. No medication is needed. She is noncontagious. There should be no sequelae, certainly none vermin exterminator. Patient will return prn for questions or problems. IN SUMMARY: PITYRIASIS ROSEA cc: ASST documented in this encounter Plan of Treatment Not on filedocumented as of this encounter Visit Diagnoses Diagnosis Pityriasis rosea documented in this encounter Care Teams Assistant Store Manager Relationship Specialty Start Date End Date Tiffany Gonzalez APRN, DNP PCP - General 01/16/00 02/03/16 [id number] [place] [id number] documented as of this encounter
--- OUTSIDE RECORDS SUMMARY | 2021-12-28 14:23 | XMS_ITS | Encounter Summary ---
:1965 Author Organization [facility] Address [address] [place] [address] Care Team Providers Name Role Phone Tiffany Gonzalez APRN, DNP Primary Care Provider [phone] Encounter Details Date Type Department Care Team Description 04/14/2002 Telephone [employer] Obstetrics Greg Sahu MD and Gynecology [address] [place] [address] (Wo rk) Social History Tobacco Use Types Packs/Day Years Used Date Smoking Tobacco: Never Assessed Sex Assigned at Date Recorded Not on file documented as of this encounter Nursing Notes Greg Prceiado - 04/14/2002 12:00 AM PROCESSING OPERATOR ESSING OPERATOR documented in this encounter Plan of Treatment Not on filedocumented as of this encounter Visit Diagnoses Not on filedocumented in this encounter Care Teams Health Safety Manager Relationship Specialty Start Date End Date Tiffany Gonzalez APRN, DNP PCP - General 01/16/00 02/03/16 [address] [place] [id number] documented as of this encounter
--- OUTSIDE RECORDS SUMMARY | 2021-12-28 14:23 | XMS_ITS | Encounter Summary ---
:1965 Author Organization [facility] Address [address] [place] [address] Care Team Providers Name Role Phone Tiffany Gonzalez ROUNDSMAN, GAIL Primary Care Provider [phone] Encounter Details Date Type Department Care Team Description 04/21/2002 Orders Only [place] Tiffany Gonzalez, Laboratory ROUNDSMAN, DNP [address] [place] [address] (Wo rk) Social History Tobacco Use Types Packs/Day Years Used Date Smoking Tobacco: Never Assessed Sex Assigned at Date Recorded Not on file documented as of this encounter Plan of Treatment Not on filedocumented as of this encounter Procedures Procedure Name Priority Date/Time Associated Comments Diagnosis CREATININE CLEARANCE Routine 04/21/2002 8:47 AM R esults for this HEAVY LINE TECHNICIAN procedure are i n the results section. documented in this encounter Results (ABNORMAL) CREATININE CLEARANCE (ORDER CR (04/21/2002 8:47 AM HEAVY LINE TECHNICIAN) [facility] Method Time Signature Creatinine, 88.6 mg/dl [facility] Urine, Random Creatinine 65 (L) 70 - 130 [facility] Clearance ml/min/1.73 m2 Creatinine, 14 (L) 16 - 25 [facility] Urine mg/kg/24 hr Total Volume 1600 ml/24 hr [facility] Hours of 24 hours [facility] Collection Height 68 inches [facility] Weight 230 lbs [employer] Specimen Anatomical Collection Method Collection Time Receive d Time (Source) Location / / Volume Laterality 04/21/2002 8:47 AM 3 8:48 HEAVY LINE TECHNICIAN AM HEAVY LINE TECHNICIAN Tiffany Gonzalez APRN, DNP LAB_1 Performing Organization Address City/State/ZIP Code Phon e Number [facility] [phone] [facility] [address] [place] [address] documented in this encounter Visit Diagnoses Not on filedocumented in this encounter Care Teams Heavy Coil Winder Relationship Specialty Start Date End Date Tiffany Gonzalez APRN, DNP PCP - General 01/16/00 02/03/16 [address] [place] [id number] documented as of this encounter
--- OUTSIDE RECORDS SUMMARY | 2021-12-28 14:23 | XMS_ITS | Encounter Summary ---
:1965 Author Organization [facility] Address [address] [place] [address] Care Team Providers Name Role Phone Tiffany Gonzalez APRN, DNP Primary Care Provider [phone] Encounter Details Date Type Department Care Team Description 04/17/2002 Orders Only [place] Tiffany Gonzalez, Laboratory PALOMO, DNP [address] [place] [address] (Wo rk) Social History Tobacco Use Types Packs/Day Years Used Date Smoking Tobacco: Never Assessed Sex Assigned at Date Recorded Not on file documented as of this encounter Plan of Treatment Not on filedocumented as of this encounter Procedures Procedure Name Priority Date/Time Associated Comments Diagnosis GLUCOSE - FASTING > Routine 04/17/2002 10:25 AM R esults for this 8 HRS FASTING ADMINISTRATIVE DIRECTOR procedure are in the results section. CREATININE Routine 04/17/2002 10:25 AM Results for this ADMINISTRATIVE DIRECTOR procedure are i n the results section. documented in this encounter Results GLUCOSE - FASTING > 8 HRS FASTING (04/17/2002 10:25 AM ADMINISTRATIVE DIRECTOR) P athologist Signature Glucose 90 70 - 110 [facility] mg/dl Hours Fasting >12 hours [facility] Specimen Anatomical Collection Method Collection Time Receive d Time (Source) Location / / Volume Laterality 04/17/2002 10:25 04/17/2002 AM ADMINISTRATIVE DIRECTOR 10:26 AM ADMINISTRATIVE DIRECTOR Tiffany Gonzalez APRN, GAIL LAB_1 Performing Organization Address City/[facility] Phon e Number [facility] [phone] [address] (ABNORMAL) CREATININE (04/17/2002 10:25 AM ADMINISTRATIVE DIRECTOR) P athologist Signature Creatinine 1.3 (H) 0.5 - 1.2 [facility] mg/dl Specimen Anatomical Collection Method Collection Time Receive d Time (Source) Location / / Volume Laterality 04/17/2002 10:25 04/17/2002 AM ADMINISTRATIVE DIRECTOR 10:26 AM ADMINISTRATIVE DIRECTOR Tiffany Gonzalez APRN, DNP LAB_1 Performing Organization Address [facility] Phon e Number [facility] [phone] [address] documented in this encounter Visit Diagnoses Not on filedocumented in this encounter Care Teams Core Assembly Supervisor Relationship Specialty Start Date End Date Tiffany Gonzalez APRN, DNP PCP - General 01/16/00 02/03/16 [address] [id number] documented as of this encounter
--- OUTSIDE RECORDS SUMMARY | 2021-12-28 14:23 | XMS_ITS | Encounter Summary ---
:1965 Author Organization [facility] Address [address] [place] [address] Care Team Providers Name Role Phone Tiffany Gonzalez APRN, GAIL Primary Care Provider [phone] Encounter Details Date Type Department Care Team Description 06/05/2002 Office Visit [facility] Mammogram I, SCRE ENING MAMM- MAILG NEOPL-OTHER; [place] [facility] FAMILY HX-BREAST [facility] [address] [place] [address] Social History Tobacco Use Types Packs/Day Years Used Date Smoking Tobacco: Never Assessed Sex Assigned at Date Recorded Not on file documented as of this encounter Procedure Notes Mitchell Benítez - 06/05/2002 12:00 AM CSTAssociated Order(s): MAMMOGRAM, SCREENING CLINICAL DATA: Screening mammograms. EXAMINATION: IN SUMMARY: BILATERAL MAMMOGRAMS 06/05/02: ACR BIRADS CATEGORY 1 - NEGATIVE MAMMOGRAM. Exam is compared to 05/25/01. Irregularly dense breast parenchyma is noted. IMPRESSION: There is no mammographic evidence of malignancy. Mitchell Benítez MD cc: Radiology Tiffany Gonzalez NP NESS OBJECTS documented in this encounter Plan of Treatment Not on filedocumented as of this encounter Procedures Procedure Name Priority Date/Time Associated Diagnosis Comme nts MAMMOGRAM, SCREENING Routine 06/05/2002 Screening Mamm-Mailg Results for this Neopl-Other procedure are in the Family Hx-Breast Malig resul ts section. documented in this encounter Results MAMMOGRAM, SCREENING (06/05/2002) Anatomical Region Laterality Modality Breast Other Specimen (Source) Anatomical Location Collection Method / Collectio n Time Received Time / Laterality Volume Transcriptions Mitchell Benítez - 06/05/2002 12:00 AM CSTCLINICAL DATA: Screening mammograms. EXAMINATION: IN SUMMARY: BILATERAL MAMMO GRAMS 06/05/02: ACR BIRADS CATEGORY 1 - NEGATIVE MAMMOGR AM. Exam is compared to 05/25/01. Irregularl y dense breast parenchyma is noted. IMPRESSION: There is no mammographic alvaro dence of malignancy. Mitchell Benítez MD cc: Radiology Tiffany Gonzalez NP Tiffany Gonzalez APRN, DNP RAD_BI documented in this encounter Visit Diagnoses Diagnosis Other screening mammogram Family history of malignant neoplasm of breast documented in this encounter Care Teams Washer Off Relationship Specialty Start Date End Date Tiffany Gonzalez APRN, DNP PCP - General 01/16/00 02/03/16 [address] [place] [id number] documented as of this encounter
--- OUTSIDE RECORDS SUMMARY | 2021-12-28 14:23 | XMS_ITS | Encounter Summary ---
:1965 Author Organization [facility] Address [address] [place] [address] Care Team Providers Name Role Phone Tiffany Gonzalez APRN, GAIL Primary Care Provider [phone] Encounter Details Date Type Department Care Team Description 04/07/2002 Orders Only [place] Tiffany Gonzalez, Laboratory PALOMO, DNP [address] [place] [address] (Wo rk) Social History Tobacco Use Types Packs/Day Years Used Date Smoking Tobacco: Never Assessed Sex Assigned at Date Recorded Not on file documented as of this encounter Plan of Treatment Not on filedocumented as of this encounter Procedures Procedure Name Priority Date/Time Associated Diagnosis Comme nts UA, NO MICROSCOPIC Routine 04/07/2002 3:58 PM Res ults for this RATING CLERK procedure are i n the results section. CREATININE Routine 04/07/2002 3:58 PM Results f or this RATING CLERK procedure are i n the results section. documented in this encounter Results (ABNORMAL) CREATININE (04/07/2002 3:58 PM RATING CLERK) athologist Signature Creatinine 1.3 (H) 0.5 - 1.2 [facility] mg/dl Specimen Anatomical Collection Method Collection Time Receive d Time (Source) Location / / Volume Laterality 04/07/2002 3:58 PM 2 3:59 RATING CLERK PM RATING CLERK Tiffany Gonzalez APRN, GAIL LAB_1 Performing Organization Address [facility] Phon e Number [facility] [phone] [facility] [address] [address] (ABNORMAL) UA WITHOUT MICRO (04/07/2002 3:58 PM RATING CLERK) P athologist Signature Appr Yellow [facility] Appr Clear [facility] Sp Gr 1.015 1.005 - [facility] 1.030 Leuk Neg [facility] Nitr Neg [facility] pH 6.5 4.5 - 8.0 [facility] Prot Neg mg/dl [facility] Gluc Neg mg/dl [facility] Ket Tr (A) mg/dl [facility] Urob 0.2 0.2 - 1.0 [facility] EU/dl Bili Neg [facility] Blood Neg [facility] Specimen Anatomical Collection Method Collection Time Receive d Time (Source) Location / / Volume Laterality 04/07/2002 3:58 PM 2 3:59 RATING CLERK PM RATING CLERK Tiffany Gonzalez APRN, DNP LAB_1 Performing Organization Address [facility] Phon e Number [facility] [phone] [facility] [address] [place] [address] documented in this encounter Visit Diagnoses Not on filedocumented in this encounter Care Teams Cleaner And Polisher Relationship Specialty Start Date End Date Tiffany Gonzalez APRN, DNP PCP - General 01/16/00 02/03/16 [address] [place] [id number] documented as of this encounter
--- OUTSIDE RECORDS SUMMARY | 2021-12-28 14:23 | XMS_ITS | Encounter Summary ---
:1965 Author Organization [facility] [facility] Address [address] [place] [address] Care Team Providers Name Role Phone Haylee Alanis APRN, DIESEL MAINTENANCE TECHNICIAN Primary Care Provider Encounter Details Date Type Department Care Team Description 04/17/2002 Office Visit [facility] Long Gonzalez, Practice PRECISION LENS GRINDER, DNP [address] [place] [address] [phone] Social History Tobacco Use Types Packs/Day Years Used Date Smoking Tobacco: Never Assessed Sex Assigned at Date Recorded Not on file documented as of this encounter Progress Notes Tiffany Gonzalez - 04/17/2002 12:00 AM CSTCC: 37-year-old female presents for follow-up abnormal labs. S: Creatinine level 1.3 on 04/07. At the beginning of the month she had a creatinine level of 1.2, which was within normal range. The year before that creatinine level 1.1. She denies frequent Tylenol or ibuprofen use. On rare occasions she uses it for headaches. Recalled using ibuprofen once this month. She was diagnosed with polycystic kidney disease 20 years ago when her father needed a kidney transplant. Her father has polycystic kidney disease and did have his transplant at age 49. She has a brother that donated his kidney to her father. Stephanie had a recent urinalysis without any ketones in it. She does not have a therapeutic activities services worker that she regularly follows up with. New recent medications include glucosamine chondroitin since March 10. She takes 2 in the morning and one in the afternoon. Also started on Tagamet 800 mg q at bedtime on 03/22 for gastric reflux symptoms. No recent glucose. She denies history of diabetes. O: Pleasant female in no acute distress. Blood pressure 128/90. Pulse 62. Respirations: 16. A: 1. Abnormal creatinine level. 2. Polycystic kidney disease. P: Will recheck creatinine level today and random glucose. Will discuss above with physician along with her repeat creatinine level today and get back to her regarding further management. She is in agreement with plan. IN SUMMARY: ABNORMAL CREATININE LEVEL, POLYCYSTIC KIDNEY DISEASE cc: ER CHROME documented in this encounter Plan of Treatment Not on filedocumented as of this encounter Visit Diagnoses Not on filedocumented in this encounter Care Teams Teamcenter Solution Architect Relationship Specialty Start Date End Date Haylee Alanis APRN, DIESEL MAINTENANCE TECHNICIAN PCP - General Nurse Practitioner 02/04/[address] [place] [address] documented as of this encounter
--- OUTSIDE RECORDS SUMMARY | 2021-12-28 14:23 | XMS_ITS | Encounter Summary ---
:1965 Author Organization [employer] Address [address] [place] [address] Care Team Providers Name Role Phone Tiffany Gonzalez APRN, DNP Primary Care Provider [phone] Encounter Details Date Type Department Care Team Description 04/17/2002 Office Visit [place] Lisa, ABNORMAL CL INICAL FINDING NEC; Family Practice Tiffany Still APRN, POLYCYSTIC KIDNEY, UNSPEC; [address] [facility] SCREEN DIABETES [place], [place] [address] [address] [place] [address] (Wo rk) Social History Tobacco Use Types Packs/Day Years Used Date Smoking Tobacco: Never Assessed Sex Assigned at Date Recorded Not on file documented as of this encounter Last Filed Vital Signs Vital Sign Reading Time Taken Comments Blood Pressure 128/94 04/17/2002 10:00 AM IT PROGRAM AUDITOR Pulse 62 04/17/2002 10:00 AM IT PROGRAM AUDITOR Temperature - - Respiratory Rate - - Oxygen Saturation - - Inhaled Oxygen Concentration - - Weight - - Height - - Body Mass Index - - documented in this encounter Progress Notes 04/17/2002 10:00 AM CHRIS Stephanie Norman is here today for f/u on lab tests.. Are you having other pain today, that you want to discuss with the provider? -NO Preventive Services up to date? -YES Immunizations up to date? -YES Do you ever feel physically threatened or emotionally afraid? -NO Tobacco Status? -FORMER SMOKER; QUIT DATE 05/21 recycling attendant offered? -NOT APPLICABLE. Aspirin taken daily? -NO BP was taken on the RIGHT arm. Large cuff used? -YES Health Education given? -NO. Contact phone number [phone] (home) [phone] (work), alternate phone number . Radha Ludwig LPN 04/17/2002 10:08 AM documented in this encounter Plan of Treatment Not on filedocumented as of this encounter Visit Diagnoses Diagnosis Other abnormal clinical finding Polycystic kidney, unspecified type Screening for diabetes mellitus documented in this encounter Care Teams Clipper Machine Relationship Specialty Start Date End Date Tiffany Gonzalez APRN, DNP PCP - General 01/16/00 02/03/16 [address] [id number] documented as of this encounter
--- OUTSIDE RECORDS SUMMARY | 2021-12-28 14:23 | XMS_ITS | Encounter Summary ---
:1965 Author Organization [employer] Address [address] [place] [address] Care Team Providers Name Role Phone Tiffany Gonzalez APRN, DNP Primary Care Provider Encounter Details Date Type Department Care Team Description 03/22/2002 Office Visit [place] Lisa, ESOPHAGEAL REFLUX; Family Practice Tiffany Still APRN, POLYCYSTIC KIDNEY, UNSPEC; [address] [facility] SCREENING-ENDOC/NUT/MET NEC [place], [place] [address] [address] [place] [address] (Wo rk) Social History Tobacco Use Types Packs/Day Years Used Date Smoking Tobacco: Never Assessed Sex Assigned at Date Recorded Not on file documented as of this encounter Last Filed Vital Signs Vital Sign Reading Time Taken Comments Blood Pressure 114/80 03/22/2002 9:00 AM ACCOUNTING INSTRUCTOR Pulse 76 03/22/2002 9:00 AM ACCOUNTING INSTRUCTOR Temperature - - Respiratory Rate 16 03/22/2002 9:00 AM ACCOUNTING INSTRUCTOR Oxygen Saturation - - Inhaled Oxygen Concentration - - Weight 104.3 kg (230 lb) 03/22/2002 9:00 AM ACCOUNTING INSTRUCTOR Height - - Body Mass Index - - documented in this encounter Progress Notes 03/22/2002 9:00 AM ACCOUNTING INSTRUCTOR Stephanie Norman is here today for heartburn. Are you having other pain today, that you want to discuss with the provider? -NO Preventive Services up to date? -{YES/NO NEEDS:76842} Immunizations up to date? -YES Do you ever feel physically threatened or emotionally afraid? -NO Tobacco Status? -FORMER SMOKER; QUIT DATE 06/02/01 washateria attendant offered? -NOT APPLICABLE. Aspirin taken daily? -NO BP was taken on the RIGHT arm. Large cuff used? -NO Health Education given? -NO. Contact phone number [phone](home) [phone](work), alternate phone number . Ev Piper LPN 03/22/2002 9:01 AM No current prescriptions on file. Tiffany Gonzalez - 03/22/2002 12:00 AM CSTCHIEF COMPLAINT: 37 -year-old female presents with heartburn. SUBJECTIVE: Four months of daily heartburn, worsening over the past two months. Had been a smoker and quit last May. Since then there has been a weight gain of 15 pounds. Heart burn symptoms occurred in September and October. At that point she had gained about 8 to 10 pounds. Has been using Rolaids and Tums without good effects. Denies any changes in her diet. Is not exercising at this time. Has been faithful about staying away from tobacco use. She has significant history of polycystic kidneys. Also she wanted to let me know that her father was recently diagnosed with breast cancer and had a mastectomy at age 64. Her mother had of breast cancer at age 41. Stephnaie is over due for preventative services. Denies nausea or vomiting, or bloody sputum. Denies diarrhea or constipation. OBJECTIVE: Pleasant female in no acute distress. The weight is 230 pounds, the blood pressure is 114/80, pulse is 76, and respirations are 16. Obese female in no acute distress. Denies any increased tenderness on palpating epigastric site, no organomegaly is felt. ASSESSMENT: Gastroesophageal reflux disease, probably related to weight gain. PLAN: Discussed with her certain triggers. She will be getting back on to the treadmill. Due for physical examination and pap smear. Will make an appointment to have that done in the next couple of weeks. Trial of Tagamet 800 mg po every HS x two weeks. If no improvement she is to notify me. Will follow up with her regarding the symptoms at her next physical examination. Information on gastroesophageal reflux disease was given to her. If the symptoms worsen she is to follow up sooner. IN SUMMARY: GASTROESOPHAGEAL REFLUX DISEASE, PROBABLY RELATED TO WEIGHT GAIN. cc: UNTING INSTRUCTOR documented in this encounter Plan of Treatment Not on filedocumented as of this encounter Visit Diagnoses Diagnosis Esophageal reflux Polycystic kidney, unspecified type Screening for other and unspecified endo crine, nutritional, metabolic and immunity disorders documented in this encounter Care Teams Panel Coverer Relationship Specialty Start Date End Date Tiffany Gonzalez, MAGNETIC RESONANCE IMAGING COORDINATOR, DNP PCP - General 01/16/00 02/03/16 [address] [place] [id number] documented as of this encounter
--- OUTSIDE RECORDS SUMMARY | 2021-12-28 14:23 | XMS_ITS | Encounter Summary ---
:1965 Author Organization [facility] Address [address] [place] [address] Care Team Providers Name Role Phone Tiffany Gonzalez APRN, DNP Primary Care Provider Encounter Details Date Type Department Care Team Description 06/29/2001 Office Visit [facility] Optometr y Dick Arriaga, OD [place]; [address] [facility] [address] [facility] ASTIGMATISM [place], [place] [address] [place], [place] [phone] (Wo rk) Social History Tobacco Use Types Packs/Day Years Used Date Smoking Tobacco: Never Assessed Sex Assigned at Date Recorded Not on file documented as of this encounter Plan of Treatment Not on filedocumented as of this encounter Visit Diagnoses Diagnosis Myopia Astigmatism, unspecified documented in this encounter Care Teams Sales Representative Jewelry Relationship Specialty Start Date End Date Tiffany Gonzalez APRN, GAIL PCP - General 01/16/00 02/03/16 [address] [place] [id number] documented as of this encounter
--- OUTSIDE RECORDS SUMMARY | 2021-12-28 14:23 | XMS_ITS | Encounter Summary ---
:1965 Author Organization [facility] Address [address] [place] [address] Care Team Providers Name Role Phone Tiffany Gonzalez APRN, DNP Primary Care Provider Encounter Details Date Type Department Care Team Description 04/21/2002 Telephone [facility] Long Gonzalez, Practice GAIL CULVER [address] [place] [address] [address] [place] [address] [address] [place] [phone] (Wo rk) Social History Tobacco Use Types Packs/Day Years Used Date Smoking Tobacco: Never Assessed Sex Assigned at Date Recorded Not on file documented as of this encounter Nursing Notes Tiffany Gonzalez - 04/21/2002 12:00 AM GRADES 1 THRU 6 VISITING TEACHER ES 1 THRU 6 VISITING TEACHER documented in this encounter Plan of Treatment Not on filedocumented as of this encounter Visit Diagnoses Not on filedocumented in this encounter Care Teams Professional Athlete Relationship Specialty Start Date End Date Tiffany Gonzalez APRN, DNP PCP - General 01/16/00 02/03/16 [address] [id number] documented as of this encounter
--- OUTSIDE RECORDS SUMMARY | 2021-12-28 14:23 | XMS_ITS | Encounter Summary ---
:[address] [facility] [facility] Address [address] [place] [address] Care Team Providers Name Role Phone Tiffany Gonzalez APRN, GAIL Primary Care Provider Encounter Details Date Type Department Care Team Description 04/05/2001 Orders Only [facility] Tiffany Gonzalez, [address] HIGH RIGGER, [place], [place] [phone] [phone] [place] [address] (Wo rk) Social History Tobacco Use Types Packs/Day Years Used Date Smoking Tobacco: Never Assessed Sex Assigned at Date Recorded Not on file documented as of this encounter Plan of Treatment Not on filedocumented as of this encounter Procedures Procedure Name Priority Date/Time Associated Comments Diagnosis CHOLESTEROL, TOTAL Routine 04/05/2001 2:22 PM Res ults for this AND HDL DARKROOM WORKER procedure are i n the results section. CREATININE Routine 04/05/2001 2:22 PM Results f or this DARKROOM WORKER procedure are i n the results section. documented in this encounter Results CREATININE (04/05/2001 2:22 PM DARKROOM WORKER) P athologist Signature Creatinine 1.1 0.5 - 1.2 [facility] mg/dl Specimen Anatomical Collection Method Collection Time Receive d Time (Source) Location / / Volume Laterality 04/05/2001 2:22 PM 1 2:25 DARKROOM WORKER PM DARKROOM WORKER Tiffany Gonzalez APRN, DNP LAB_1 Performing Organization Address City/[facility] Code Phon e Number [facility] [phone] [phone] (ABNORMAL) CHOLESTEROL, TOTAL AND HDL (04/05/2001 2:22 PM DARKROOM WORKER) athologist Signature Cholesterol 260 (H) <200 mg/dl [facility] HDL 55 >35 mg/dl [facility] Specimen Anatomical Collection Method Collection Time Receive d Time (Source) Location / / Volume Laterality 04/05/2001 2:22 PM 1 2:25 DARKROOM WORKER PM DARKROOM WORKER Tiffany Gonzalez APRN, DNP LAB_1 Performing Organization Address [facility] Phon e Number [facility] [phone] [phone] documented in this encounter Visit Diagnoses Not on filedocumented in this encounter Care Teams Complex Human Resources Manager Relationship Specialty Start Date End Date Tiffany Gonzalez APRN, DNP PCP - General 01/16/00 02/03/16 [address] [id number] documented as of this encounter
--- OUTSIDE RECORDS SUMMARY | 2021-12-28 14:23 | XMS_ITS | Encounter Summary ---
:1965 Author Organization [facility] Address [address] [place] [address] Care Team Providers Name Role Phone Tiffany Gonzalez APRN, DNP Primary Care Provider Encounter Details Date Type Department Care Team Description 04/07/2002 Correspondence [facility] Jerel Gonzalez, LAB RESULTS Practice [place] [address] [place] [address] [address] [place], [place] [address] [phone] Social History Tobacco Use Types Packs/Day Years Used Date Smoking Tobacco: Never Assessed Sex Assigned at Date Recorded Not on file documented as of this encounter Progress Notes Tiffany Gonzalez - 04/07/2002 12:00 AM SHOESHINER SHINER documented in this encounter Plan of Treatment Not on filedocumented as of this encounter Visit Diagnoses Not on filedocumented in this encounter Care Teams Felt Tipping Machine Tender Relationship Specialty Start Date End Date Tiffany Gonzalez APRN, DNP PCP - General 01/16/00 02/03/16 [address] [id number] documented as of this encounter
--- OUTSIDE RECORDS SUMMARY | 2021-12-28 14:23 | XMS_ITS | Encounter Summary ---
:1965 Author Organization [facility] Address [address] [place] [address] Care Team Providers Name Role Phone Tiffany Gonzalez APRN, DNP Primary Care Provider Encounter Details Date Type Department Care Team Description 01/19/2000 Orders Only [facility] Tiffany Gonzalez, [address] [place], [place] [phone] [phone] [place] [address] (Wo rk) Social History Tobacco Use Types Packs/Day Years Used Date Smoking Tobacco: Never Assessed Sex Assigned at Date Recorded Not on file documented as of this encounter Plan of Treatment Not on filedocumented as of this encounter Procedures Procedure Name Priority Date/Time Associated Diagnosis Comme nts PAP TEST, ROUTINE Routine 01/19/2000 1:32 PM Resu lts for this CDT procedure are i n the results section. documented in this encounter Results PAP SMEAR, ROUTINE (01/19/2000 1:32 PM CDT) [facility] Method Time Signature Pap Smear, See Separate Report [facility] Routine Performed at [facility] Specimen Anatomical Collection Method Collection Time Receive d Time (Source) Location / / Volume Laterality 01/19/2000 1:32 PM 0 1:33 CDT PM CDT Tiffany Gonzalez APRN, DNP LAB_1 Performing Organization Address City/State/ZIP Code Phon e Number [facility] [phone] [facility] [address] [phone] documented in this encounter Visit Diagnoses Not on filedocumented in this encounter Care Teams Clip Bolter And Wrapper Relationship Specialty Start Date End Date Tiffany Gonzalez APRN, DNP PCP - General 01/16/00 02/03/16 [address] [id number] documented as of this encounter
--- OUTSIDE RECORDS SUMMARY | 2021-12-28 14:23 | XMS_ITS | Encounter Summary ---
:1965 Author Organization [facility] Address [address] [place] [address] Care Team Providers Name Role Phone Tiffany Gonzalez APRN, GAIL Primary Care Provider [phone] Encounter Details Date Type Department Care Team Description 08/17/2000 Office Visit [place] [facility] DIGNA PHARYNGITIS(SORE Medicine THROAT) Social History Tobacco Use Types Packs/Day Years Used Date Smoking Tobacco: Never Assessed Sex Assigned at Date Recorded Not on file documented as of this encounter Plan of Treatment Not on filedocumented as of this encounter Visit Diagnoses Diagnosis Acute pharyngitis documented in this encounter Care Teams Medical Unit Secretary Relationship Specialty Start Date End Date Tiffany Gonzalez APRN, DNP PCP - General 01/16/00 02/03/16 [address] [id number] documented as of this encounter
--- OUTSIDE RECORDS SUMMARY | 2021-12-28 14:23 | XMS_ITS | Encounter Summary ---
:1965 Author Organization [facility] Address [address] [place] [address] Care Team Providers Name Role Phone Tiffany Gonzalez APRN, GAIL Primary Care Provider Encounter Details Date Type Department Care Team Description 04/17/2002 Correspondence [place] JANEE Gonzalez TS MAILED Family Practice Tiffany Still APRN, [address] [place] [address] [address] [address] [place] [address] [phone] (Wo rk) Social History Tobacco Use Types Packs/Day Years Used Date Smoking Tobacco: Never Assessed Sex Assigned at Date Recorded Not on file documented as of this encounter Progress Notes Tiffany Gonzalez - 04/17/2002 12:00 AM FRANCHISE SALES MANAGER CHISE SALES MANAGER documented in this encounter Plan of Treatment Not on filedocumented as of this encounter Visit Diagnoses Not on filedocumented in this encounter Care Teams Exhibit Technician Relationship Specialty Start Date End Date Tiffany Gonzalez APRN, GAIL PCP - General 01/16/00 02/03/16 [address] [place] [id number] documented as of this encounter
--- OUTSIDE RECORDS SUMMARY | 2021-12-28 14:23 | XMS_ITS | Encounter Summary ---
:1965 Author Organization [facility] Address [address] [place] [address] Care Team Providers Name Role Phone Tiffany Gonzalez APRN, DNP Primary Care Provider Encounter Details Date Type Department Care Team Description 03/23/2002 Correspondence [place] JANEE Gonzalez MAILED Family Practice Tiffany Still APRN, TO PATIENT [address] [place], [place] [address] [address] [place] [address] [phone] (Wo rk) Social History Tobacco Use Types Packs/Day Years Used Date Smoking Tobacco: Never Assessed Sex Assigned at Date Recorded Not on file documented as of this encounter Progress Notes Tiffany Gonzalez - 03/23/2002 12:00 AM POLYGRAPH EXAMINER GRAPH EXAMINER documented in this encounter Plan of Treatment Not on filedocumented as of this encounter Visit Diagnoses Not on filedocumented in this encounter Care Teams Information Technology Administrator Relationship Specialty Start Date End Date Tiffany Gonzalez APRN, GAIL PCP - General 01/16/00 02/03/16 [address] [id number] documented as of this encounter
--- OUTSIDE RECORDS SUMMARY | 2021-12-28 14:23 | XMS_ITS | Encounter Summary ---
:1965 Author Organization [facility] Address [address] [place] [address] Care Team Providers Name Role Phone Tiffany Gonzalez APRN, DNP Primary Care Provider Reason for Visit Reason Comments CONGESTION, NASAL Encounter Details Date Type Department Care Team Description 09/04/2001 Telephone [facility]line Lucy Quezada, CONGESTION, NASAL [address] [place] Leyva RN [place], [place] [address] [phone] [place] [address] Social History Tobacco Use Types Packs/Day Years Used Date Smoking Tobacco: Never Assessed Sex Assigned at Date Recorded Not on file documented as of this encounter Nursing Notes 09/04/2001 11:59 PM CDT >> GENVEA SHIPMAN Gleason September 04, 2001 10:42 AM >> COMPLETED ON Sun September 04, 2001 10:49 AM >> CALL RECEIVED. Contact: Stephanie [phone] concern: Seen Wed. sore throat. TC was negative. Wednesday started w/ achieness and fever, then raw s.t., now she is congested, when blows nose d/c is g reen. No facial pressure and fever. Still has a s.t. worse in am and in the pm, congestion, cough and laryngitis. PMH: Healthy. Medication: Multivit. Allergies: PCN, Amox. HT: Increase fluids - helps fever control Tylenol - helps fever control and body aches (1000mg. every 4-6 hours), ASA or Ibuprofen if age appr opriate and no contraindications Warm salt water gargles every 2 hours for sore throat (1 tsp salt in 8 oz of water) Rest, rest, rest! Stay home! Treatment of primary influenza symptoms is mainly at home to prevent further exposure of individuals plan: HT. If there are any concerns or you are uncomfortable with home treatment at any time, or just aren't sure of changes, please call the Careline or your Doctors office. We will help you to ree valuate signs and symptoms and if Neccessary inform you where to be seen. documented in this encounter Plan of Treatment Not on filedocumented as of this encounter Visit Diagnoses Not on filedocumented in this encounter Care Teams Contour Stitcher Relationship Specialty Start Date End Date Tiffany Gonzalez APRN, DNP PCP - General 01/16/00 02/03/16 [address] [id number] documented as of this encounter
--- OUTSIDE RECORDS SUMMARY | 2021-12-28 14:23 | XMS_ITS | Encounter Summary ---
:1965 Author Organization [facility] Address [address] [place] [address] Care Team Providers Name Role Phone Tiffany Gonzalez APRN, DNP Primary Care Provider [phone] Encounter Details Date Type Department Care Team Description 04/14/2002 Telephone [facility] Long Gonzalez, Practice GAIL [place] [address] [place] [address] [address] [place] [address] [place] [address] [phone] (Wo rk) Social History Tobacco Use Types Packs/Day Years Used Date Smoking Tobacco: Never Assessed Sex Assigned at Date Recorded Not on file documented as of this encounter Nursing Notes Tiffany Gonzalez - 04/14/2002 12:00 AM AUTOMATION QA LEAD MATION QA LEAD documented in this encounter Plan of Treatment Not on filedocumented as of this encounter Visit Diagnoses Not on filedocumented in this encounter Care Teams Rolled Oats Mill Operator Relationship Specialty Start Date End Date Tiffany Gonzalez APRN, DNP PCP - General 01/16/00 02/03/16 [address] [id number] documented as of this encounter
--- OUTSIDE RECORDS SUMMARY | 2021-12-28 14:23 | XMS_ITS | Encounter Summary ---
:1965 Author Organization [facility] Address [address] [place] [address] Care Team Providers Name Role Phone Tiffany Gonzalez APRN, DNP Primary Care Provider [phone] Encounter Details Date Type Department Care Team Description 05/25/2001 Orders Only Epic, [place] [address] Social History Tobacco Use Types Packs/Day Years Used Date Smoking Tobacco: Never Assessed Sex Assigned at Date Recorded Not on file documented as of this encounter Plan of Treatment Not on filedocumented as of this encounter Visit Diagnoses Not on filedocumented in this encounter Care Teams Back Shoe Worker Relationship Specialty Start Date End Date Tiffany Gonzalez APRN, DNP PCP - General 01/16/00 02/03/16 [address] [id number] documented as of this encounter
--- OUTSIDE RECORDS SUMMARY | 2021-12-28 14:23 | XMS_ITS | Encounter Summary ---
:1965 Author Organization [facility] Address [address] [place] [address] Care Team Providers Name Role Phone Tiffany Gonzalez APRN, [facility] Primary Care Provider [phone] Encounter Details Date Type Department Care Team Description 04/07/2002 Office Visit [place] Lisa, GYNECOLOGIC EXAMINATION; Family Practice Tiffany Still APRN, POLYCYSTIC KIDNEY, UNSPEC [address] [place], [place] [address] [address] [place], [place] [phone] (Wo rk) Social History Tobacco Use Types Packs/Day Years Used Date Smoking Tobacco: Never Assessed Sex Assigned at Date Recorded Not on file documented as of this encounter Last Filed Vital Signs Vital Sign Reading Time Taken Comments Blood Pressure 140/82 04/07/2002 3:20 PM JOINT CUTTER Pulse 76 04/07/2002 3:20 PM JOINT CUTTER Temperature - - Respiratory Rate 16 04/07/2002 3:20 PM JOINT CUTTER Oxygen Saturation - - Inhaled Oxygen Concentration - - Weight 105.2 kg (232 lb) 04/07/2002 3:20 PM JOINT CUTTER Height 170.2 cm (5' 7) 04/07/2002 3:20 PM JOINT CUTTER Body Mass Index 36.34 04/07/2002 3:20 PM JOINT CUTTER documented in this encounter Progress Notes 04/07/2002 3:20 PM JOINT CUTTER Addended by: RAMONA MORENO on: 04/18/2002, 9:00:03 AM (via Web). Comment: Pap sarninr-OYO-wwg card sent-04/18/02 ,rtc x1 yr. Stephanie Norman is here today for pe/pap. Are you having other pain today, that you want to discuss with the provider? -NO Preventive Services up to date? -YES Immunizations up to date? -YES Do you ever feel physically threatened or emotionally afraid? -NO Tobacco Status? -FORMER SMOKER; QUIT DATE 05/21 restaurant attendant offered? -DECLINED. Aspirin taken daily? -NO BP was taken on the RIGHT arm. Large cuff used? -NO Health Education given? -NO. Contact phone number [phone] (home) [phone] (work), alternate phone number . Ev Moreno LPN 04/07/2002 3:23 PM COSAMIN DS CAPS OR, 2 in a.m.-1 in p.m., D: , R: 0; CIMETIDINE TABS 800 MG OR, 1 TABLET AT BEDTIME, D: 30, R: 1 Tiffany Gonzalez - 04/07/2002 12:00 AM CSTPROBLEM: Patient is a 37-year old female who presents for Pap and pelvic. S: Currently taking Tagamet 800mg p.o. q.h.s. for reflux symptoms. States that since she started it a couple of weeks ago she has had zero symptoms. Feels much better on it. Significant history of polycystic kidneys. Quit smoking in 05/21. Past medical history of infertility, migraine headaches and cervical abnormality in 1992. Family history: Father with polycystic kidney disease and kidney transplant at the age of 49. Father also with skin cancer and hypertension and recent breast cancer at age 64. Mother with breast cancer who at age 41. One sibling who donated a kidney to his father. Sister without any medical problems. Immunizations are up-to-date. Last tetanus . Social history: in 1999. Now has a female sexual partner. Denies vaginal discharge or dyspareunia. 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 Denies verbal or physical abuse within the past year. Denies days of overwhelming sadness or finds that life is not worth living. ROS: Remainder of systems is negative except for above. O: Overweight female in no acute distress. Wt: 232 lbs. Ht: 67 inches. BP: 140/82. Pulse: 76. Respirations: 16. Pleasant female in no acute distress. Breasts with equal symmetry. No skin changes, retraction or nipple discharge. No masses felt. No axillary lymphadenopathy. Pelvic examination: External genitalia without erythema, edema or skin lesions. Speculum placed without difficulty. Endocervical brush used to obtain cells for Pap. An erythematous projection below cervix at 6:00 appearing like a polyp. Denies cervical motion tenderness, no masses felt or bilateral adnexa. Rectovaginal confirms no masses. Flat, erythematous, scaling lesions on the body with a significant amount in the trunk area and then scattered to the arms and lower legs. She was recently diagnosed with psoriasis rosea. A: Pap pelvic. GERD, improving. P: Will continue above medications. She will finish Tagamet for one more month. Mammogram scheduled. Encouraged calcium intake 1200mg q.d., which she does do with diet alone. IN SUMMARY: PAP PELVIC GERD. cc: T CUTTER documented in this encounter Plan of Treatment Not on filedocumented as of this encounter Visit Diagnoses Diagnosis Gynecological examination Polycystic kidney, unspecified type documented in this encounter Care Teams Typewriter Repairer Relationship Specialty Start Date End Date Tiffany Gonzalez, BUTTON TACKER, DNP PCP - General 01/16/00 02/03/16 [address] [id number] documented as of this encounter
--- OUTSIDE RECORDS SUMMARY | 2021-12-28 14:23 | XMS_ITS | Encounter Summary ---
:1965 Author Organization [facility] Address [address] [place] [address] Care Team Providers Name Role Phone Tiffany Gonzalez APRN, DNP Primary Care Provider Encounter Details Date Type Department Care Team Description 05/19/2002 Telephone [facility] Long Gonzalez, Practice GAIL [place] [address] [place] [address] [address] [place] [address] [place] [address] [phone] (Wo rk) Social History Tobacco Use Types Packs/Day Years Used Date Smoking Tobacco: Never Assessed Sex Assigned at Date Recorded Not on file documented as of this encounter Nursing Notes Tiffany Gonzalez - 05/19/2002 12:00 AM POWDER COATER ER COATER documented in this encounter Plan of Treatment Not on filedocumented as of this encounter Visit Diagnoses Not on filedocumented in this encounter Care Teams Lead Section Supervisor Relationship Specialty Start Date End Date Tiffany Gonzalez APRN, DNP PCP - General 01/16/00 02/03/16 [address] [id number] documented as of this encounter
--- OUTSIDE RECORDS SUMMARY | 2021-12-28 14:23 | XMS_ITS | Encounter Summary ---
:1965 Author Organization [facility] Address [address] [place] [address] Care Team Providers Name Role Phone Tiffany Gonzalez APRN, DNP Primary Care Provider Encounter Details Date Type Department Care Team Description 04/10/2002 Office Visit [facility] Greg Preciado [facility] POLYP OF Obstetrics and CERVIX Gynecology [address] [place] [address] (Wo rk) Social History Tobacco Use Types Packs/Day Years Used Date Smoking Tobacco: Never Assessed Sex Assigned at Date Recorded Not on file documented as of this encounter Last Filed Vital Signs Vital Sign Reading Time Taken Comments Blood Pressure 130/80 04/10/2002 11:20 AM GETTER FILLER Pulse - - Temperature - - Respiratory Rate - - Oxygen Saturation - - Inhaled Oxygen Concentration - - Weight - - Height - - Body Mass Index - - documented in this encounter Progress Notes 04/10/2002 11:20 AM GETTER FILLER Stephanie Norman is here today for polyp removal on the cervix. Are you having other pain today, that you want to discuss with the provider? -NO Preventive Services up to date? -YES Immunizations up to date? -YES Do you ever feel physically threatened or emotionally afraid? -NOT ASKED Tobacco Status? -NEVER SMOKED retail attendant offered? -ACCEPTED. Aspirin taken daily? -NO BP was taken on the RIGHT arm. Large cuff used? -YES Health Education given? -NO. Contact phone number [phone] (home) [phone] (work), alternate phone number none. Radha Shen LPN 04/10/2002 1:09 PM Greg Preciado - 04/10/2002 12:00 AM CSTS: Patient is a 37-year old female who is here for a removal of polyp. She was seen by Obey Gonzalez and was noted to have a cervical polyp. O: I put her in a dorsal lithotomy position and I saw her cervix and it appeared benign polyp at the 6:00 position. I removed it in two pieces, first with blunt evulsion and second with trimming with a scissors to remove remaining portion. Monsel solution was then placed for added hemostasis. A: REMOVAL OF CERVICAL POLYP. P: Patient tolerated the procedure well and we will follow-up based on the results of the Pathology. IN SUMMARY: REMOVAL OF CERVICAL POLYP. cc: ER FILLER documented in this encounter Plan of Treatment Not on filedocumented as of this encounter Visit Diagnoses Diagnosis Mucous polyp of cervix documented in this encounter Care Teams Airplane Pilot Crop Dusting Relationship Specialty Start Date End Date Tiffany Gonzalez APRN, DNP PCP - General 01/16/00 02/03/16 [address] [id number] documented as of this encounter
--- OUTSIDE RECORDS SUMMARY | 2021-12-28 14:23 | XMS_ITS | Encounter Summary ---
:1965 Author Organization [facility] Address [address] [place] [address] Care Team Providers Name Role Phone Tiffany Gonzalez APRN, DNP Primary Care Provider [phone] Encounter Details Date Type Department Care Team Description 08/06/2000 Orders Only Epic, [place] [address] Social History Tobacco Use Types Packs/Day Years Used Date Smoking Tobacco: Never Assessed Sex Assigned at Date Recorded Not on file documented as of this encounter Plan of Treatment Not on filedocumented as of this encounter Visit Diagnoses Not on filedocumented in this encounter Care Teams Zipper Setter Chainstitch Relationship Specialty Start Date End Date Tiffany Gonzalez APRN, DNP PCP - General 01/16/00 02/03/16 [address] [id number] documented as of this encounter
--- OUTSIDE RECORDS SUMMARY | 2021-12-28 14:23 | XMS_ITS | Encounter Summary ---
:1965 Author Organization [facility] Address [address] [place] [address] Care Team Providers Name Role Phone Tiffany Gonzalez APRN, GAIL Primary Care Provider [phone] Encounter Details Date Type Department Care Team Description 05/05/2001 Orders Only [facility] Tiffany Gonzalez, [address] [place], [place], [place] [phone] [phone] [place] [address] (Wo rk) Social History Tobacco Use Types Packs/Day Years Used Date Smoking Tobacco: Never Assessed Sex Assigned at Date Recorded Not on file documented as of this encounter Plan of Treatment Not on filedocumented as of this encounter Procedures Procedure Name Priority Date/Time Associated Diagnosis Comme nts LIPID PANEL, FAST > Routine 05/05/2001 8:31 AM Re sults for this 12 HOUR CONDUIT REAMER OPERATOR procedure are i n the results section. documented in this encounter Results (ABNORMAL) CHOLESTEROL LIPID PANEL FAST >12HR FAST (05/05/2001 8:31 AM CONDUIT REAMER OPERATOR) Component Value Ref Test Analysis Performed At [facility] Method Time Signature Cholesterol 220 (H) <200 [facility] mg/dl Cholesterol Result should not be interpreted without [facility] the patient's history of cardiovascular risk factors. Triglyceride 86 <200 [facility] mg/dl HDL 42 >35 [facility] mg/dl LDL, Calc. 161 mg/dl [facility] Hours Fasting 12 hours [facility] Specimen Anatomical Collection Method Collection Time Receive d Time (Source) Location / / Volume Laterality 05/05/2001 8:31 AM 2 8:32 CONDUIT REAMER OPERATOR AM CONDUIT REAMER OPERATOR Tiffany Gonzalez APRN, DNP LAB_1 Performing Organization Address City/State/ZIP Code Phon e Number [facility] [phone] [facility] [address] [address] documented in this encounter Visit Diagnoses Not on filedocumented in this encounter Care Teams Silverer Relationship Specialty Start Date End Date Tiffany Gonzalez APRN, DNP PCP - General 01/16/00 02/03/16 [address] [place] [id number] documented as of this encounter
--- OUTSIDE RECORDS SUMMARY | 2021-12-28 14:23 | XMS_ITS | Encounter Summary ---
:1965 Author Organization [employer] Address [address] [place] [address] Care Team Providers Name Role Phone Tiffany Gonzalez APRN, DNP Primary Care Provider [phone] Encounter Details Date Type Department Care Team Description 02/02/2000 Orders Only Obey Gonzalez, [place], DNP [address] [place] [address] (Wo rk) Social History Tobacco Use Types Packs/Day Years Used Date Smoking Tobacco: Never Assessed Sex Assigned at Date Recorded Not on file documented as of this encounter Procedure Notes Truong Young - 02/02/2000 12:00 AM CDTAssociated Order(s): BREAST IMAGING CLINICAL DATA: Screen INTERPRETATION: BILATERAL MAMMOGRAM 02/02/2000: No radiographic evidence for malignancy. No change compared to 05/02/97. ACR BIRADS CATEGORY 1 - NEGATIVE MAMMOGRAM Truong Young MD cc: Radiology Tiffany Sandhu NP documented in this encounter Plan of Treatment Not on filedocumented as of this encounter Procedures Procedure Name Priority Date/Time Associated Diagnosis Comme nts BREAST IMAGING 02/02/2000 Results for t his procedure are in the resu lts section. documented in this encounter Results BREAST IMAGING (02/02/2000) Anatomical Region Laterality Modality Breast Other Specimen (Source) Anatomical Location Collection Method / Collectio n Time Received Time / Laterality Volume Transcriptions Truong Young - 02/02/2000 12 :00 AM CDTCLINICAL DATA: Screen INTERPRETATION: BILATERAL MAMMOGRAM 01/17: No radiographic evidence for malignancy. No change compared to . ACR BIRADS CATEGORY 1 - NEGATIVE MAMMOGR AM Truong Young MD cc: Radiology Tiffany Sandhu NP Tiffany Gonzalez APRN, DNP RAD_BI documented in this encounter Visit Diagnoses Not on filedocumented in this encounter Care Teams Music Grapher Relationship Specialty Start Date End Date Tiffany Gonzalez APRN, DNP PCP - General 01/16/00 02/03/16 [address] [place] [id number] documented as of this encounter
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
--- OUTSIDE RECORDS SUMMARY | 2021-12-28 14:23 | XMS_ITS | Encounter Summary ---
:1965 Author Organization [facility] Address [address] [place] [address] Care Team Providers Name Role Phone Marcelo Gonzalez APRN, DNP Primary Care Provider [phone] Encounter Details Date Type Department Care Team Description 01/19/2000 Orders Only Unknown, [facility] [address] [place], [place] [address] (Wo rk) Social History Tobacco Use Types Packs/Day Years Used Date Smoking Tobacco: Never Assessed Sex Assigned at Date Recorded Not on file documented as of this encounter Plan of Treatment Not on filedocumented as of this encounter Procedures Procedure Name Priority Date/Time Associated Diagnosis Comme nts SUPERVISOR STEEL DIVISION CYTOLOGY Routine 01/19/2000 8:00 AM Results for this CDT procedure are i n the results section . documented in this encounter Results SUPERVISOR STEEL DIVISION CYTOLOGY (01/19/2000 8:00 AM CDT) [facility] Method Time Signature Oil Boiler Cytology Oil Boiler Cytology Report [facility] Patient Name: STEPHANIE NORMAN Taken: 01/19/00 Received: 01/21/00 Reported: 01/29/00 Physician(s): Kelly Yang MD PhD ([id number]) MARCELO ACOSTA ? [id number] Final Cytologic Diagnosis Cervical Endocervical,routine: ? Satisfactory for evaluation. ??Endocervical cells and/or squamous metaplastic cells ??present. ? WITHIN NORMAL LIMITS (WNL) ? Comment mgd/01/29/00 Electronically Signed Out By TORI Carcamo (ASCP) TORI Carcamo (ASCP) ? Source of Specimen(s) Cervical Endocervical,routine Clinical History Date of Last Menstrual Period: ? 12/28/99 Menstrual History: Contraceptive History: Cancer History: Infection History: Treatment History: Other Clinical Conditions: LAST PAP: WNL Other Related Clinical Data Specimen Anatomical Collection Method Collection Time Receive d Time (Source) Location / / Volume Laterality 01/19/2000 8:00 AM 0 5:23 CDT PM CDT Physician Unknown UNLISTED CODE Performing Organization Address City/State/ZIP [facility] Phon e Number [address] [address] [place], [place] [phone] documented in this encounter Visit Diagnoses Not on filedocumented in this encounter Care Teams Straw Hat Presser Relationship Specialty Start Date End Date Marcelo Gonzalez APRN, DNP PCP - General 01/16/00 02/03/16 [address] [place] [id number] documented as of this encounter
--- OUTSIDE RECORDS SUMMARY | 2021-12-28 14:23 | XMS_ITS | Encounter Summary ---
:1965 Author Organization [employer] Address [address] [place] [address] Care Team Providers Name Role Phone Tiffany Gonzalez APRN, GAIL Primary Care Provider [phone] Encounter Details Date Type Department Care Team Description 04/27/2002 Telephone [facility] Long Gonzalez, [facility] CHARGE AUDITOR, DNP [address] [place] [address] [place] [address] (Wo rk) Social History Tobacco Use Types Packs/Day Years Used Date Smoking Tobacco: Never Assessed Sex Assigned at Date Recorded Not on file documented as of this encounter Nursing Notes Tiffany Gonzalez - 04/27/2002 12:00 AM CSTS: 37-year old female with history of polycystic kidney with an abnormal creatinine in the past month. Repeat creatinine level on April 21 was within normal limits. A 24 hour urine, creatinine clearance was borderline. Discussed with her results. Due to family history and personal history, will have her recheck creatinine level in three to four months. She needs to have yearly 24 hour creatinine clearance performed. She's in agreement with this plan. Discussed with her that at this time she does not have renal insufficiency but borderline renal function. She verbalized understanding . Patient of coming to lab for follow up creatinine in July. IN SUMMARY: HISTORY OF POLYCYSTIC KIDNEY WITH ABNORMAL CREATININE. cc: RVISOR SCRAP PREPARATION documented in this encounter Plan of Treatment Not on filedocumented as of this encounter Visit Diagnoses Not on filedocumented in this encounter Care Teams Bookkeeping Clerk Relationship Specialty Start Date End Date Tiffany Gonzalez, CHARGE AUDITOR, DNP PCP - General 01/16/00 02/03/16 [address] [id number] documented as of this encounter
--- OUTSIDE RECORDS SUMMARY | 2021-12-28 14:23 | XMS_ITS | Encounter Summary ---
:1965 Author Organization [facility] Address [address] [place] [address] Care Team Providers Name Role Phone Tiffany Gonzalez APRN, DNP Primary Care Provider [phone] Encounter Details Date Type Department Care Team Description 05/25/2001 Orders Only [facility] Chon Mccullough S CREENING MAMM-MALIG NEOPL-HI RISK; Mammography FAMILY HX-BREAST MALIG [address] [facility] [place] [place] [address] Social History Tobacco Use Types Packs/Day Years Used Date Smoking Tobacco: Never Assessed Sex Assigned at Date Recorded Not on file documented as of this encounter Plan of Treatment Not on filedocumented as of this encounter Visit Diagnoses Diagnosis Screening mammogram for high-risk patien t Family history of malignant neoplasm of breast documented in this encounter Care Teams Integration Lead Relationship Specialty Start Date End Date Tiffany Gonzalez APRN, GAIL PCP - General 01/16/00 02/03/16 [address] [place] [id number] documented as of this encounter
--- OUTSIDE RECORDS SUMMARY | 2021-12-28 14:23 | XMS_ITS | Encounter Summary ---
:1965 Author Organization [facility] Address [address] [place] [address] Care Team Providers Name Role Phone Tiffany Gonzalez APRN, DNP Primary Care Provider Encounter Details Date Type Department Care Team Description 08/31/2001 Orders Only Social History Tobacco Use Types Packs/Day Years Used Date Smoking Tobacco: Never Assessed Sex Assigned at Date Recorded Not on file documented as of this encounter Plan of Treatment Not on filedocumented as of this encounter Procedures Procedure Name Priority Date/Time Associated Diagnosis Comme nts STREP GRP A, RAPID Waiting 08/31/2001 11:04 AM Re sults for this SCREEN CDT procedure are i n the results section. documented in this encounter Results RAPID, GPA STREP SCREEN (WAITI (08/31/2001 11:04 AM CDT) [facility] gist Method Time Signature Patient Home None [facility] Phone # Patient Work None [facility] Phone # Grp A Rapid Negative [facility] Screen Grp A Culture Negative [facility] Final Specimen Anatomical Collection Method Collection Time Receive d Time (Source) Location / / Volume Laterality 08/31/2001 11:04 08/31/2001 AM CDT 11:04 AM CDT Taxation Accountant Sl Nurse LAB_1 Performing Organization Address City/State/ZIP Code Phon e Number [facility] [phone] [facility] [address] [address] documented in this encounter Visit Diagnoses Not on filedocumented in this encounter Care Teams Instructor Apparel Manufacture Relationship Specialty Start Date End Date Tiffany Gonzalez APRN, DNP PCP - General 01/16/00 02/03/16 [address] [place] [id number] documented as of this encounter
--- OUTSIDE RECORDS SUMMARY | 2021-12-28 14:23 | XMS_ITS | Encounter Summary ---
:1965 Author Organization [facility] Address [address] [place] [address] Care Team Providers Name Role Phone Tiffany Gonzalez APRN, GAIL Primary Care Provider Encounter Details Date Type Department Care Team Description 08/31/2001 Office Visit [facility] ACU TE PHARYNGITIS(SORE Department THROAT) Social History Tobacco Use Types Packs/Day Years Used Date Smoking Tobacco: Never Assessed Sex Assigned at Date Recorded Not on file documented as of this encounter Plan of Treatment Not on filedocumented as of this encounter Visit Diagnoses Diagnosis Acute pharyngitis documented in this encounter Care Teams Community Health Nurse Staff Relationship Specialty Start Date End Date Tiffany Gonzalez APRN, DNP PCP - General 01/16/00 02/03/16 [address] [id number] documented as of this encounter
--- OUTSIDE RECORDS SUMMARY | 2021-12-28 14:23 | XMS_ITS | Encounter Summary ---
:1965 Author Organization [facility] Address [address] [place] [address] Care Team Providers Name Role Phone Tiffany Gonzalez APRN, DNP Primary Care Provider Encounter Details Date Type Department Care Team Description 02/02/2000 Orders Only [facility] Unknown, SCREENI NG MAMM-MAILG NEOPL-OTHER; [facility] Phys[facility] FAMILY HX-BREAST [address] [place], [place] [address] [place], [place] [phone] Social History Tobacco Use Types Packs/Day Years Used Date Smoking Tobacco: Never Assessed Sex Assigned at Date Recorded Not on file documented as of this encounter Plan of Treatment Not on filedocumented as of this encounter Visit Diagnoses Diagnosis Other screening mammogram Family history of malignant neoplasm of breast documented in this encounter Care Teams Typer Relationship Specialty Start Date End Date Tiffany Gonzalez APRN, GAIL PCP - General 01/16/00 02/03/16 [address] [address] documented as of this encounter
--- OUTSIDE RECORDS SUMMARY | 2021-12-28 14:23 | XMS_ITS | Encounter Summary ---
:1965 Author Organization [facility] Address [address] [place] [address] Care Team Providers Name Role Phone Tiffany Gonzalez APRN, DNP Primary Care Provider [phone] Encounter Details Date Type Department Care Team Description 08/17/2000 Orders Only [facility] [address] [place], [place] [phone] Social History Tobacco Use Types Packs/Day Years Used Date Smoking Tobacco: Never Assessed Sex Assigned at Date Recorded Not on file documented as of this encounter Plan of Treatment Not on filedocumented as of this encounter Procedures Procedure Name Priority Date/Time Associated Diagnosis Comme nts STREP GRP A, RAPID Waiting 08/17/2000 9:15 AM Res ults for this SCREEN CDT procedure are i n the results section. documented in this encounter Results RAPID, GPA STREP SCREEN (WAITI (08/17/2000 9:15 AM CDT) [facility] gist Method Time Signature Patient Home None [facility] Phone # Patient Work None [facility] Phone # Grp A Rapid Negative [facility] Screen Grp A Culture Negative [facility] Final Specimen Anatomical Collection Method Collection Time Receive d Time (Source) Location / / Volume Laterality 08/17/2000 9:15 AM 1 9:16 CDT AM CDT Rn Sl Nurse LAB_1 Performing Organization Address City/State/ZIP Code Phon e Number [facility] [phone] [facility] [address] [address] documented in this encounter Visit Diagnoses Not on filedocumented in this encounter Care Teams Ocean Import Representative Relationship Specialty Start Date End Date Tiffany Gonzalez APRN, DNP PCP - General 01/16/00 02/03/16 [address] [place] [address] documented as of this encounter
--- OUTSIDE RECORDS SUMMARY | 2021-12-28 14:23 | XMS_ITS | Encounter Summary ---
:1965 Author Organization [facility] Address [address] [place] [address] Care Team Providers Name Role Phone Tiffany Gonzalez APRN, DNP Primary Care Provider [phone] Encounter Details Date Type Department Care Team Description 05/19/2002 Notes/Orders [facility] Long Gonzalez, Practice VIDEOTAPE RECORDING ENGINEER, GAIL [address] [place] [address] [place] [address] [place], [place] [address] [place] [address] [phone] Social History Tobacco Use Types Packs/Day Years Used Date Smoking Tobacco: Never Assessed Sex Assigned at Date Recorded Not on file documented as of this encounter Plan of Treatment Not on filedocumented as of this encounter Visit Diagnoses Not on filedocumented in this encounter Care Teams Bed Maker Relationship Specialty Start Date End Date Tiffany Gonzalez APRN, DNP PCP - General 01/16/00 02/03/16 [address] [id number] documented as of this encounter
--- OUTSIDE RECORDS SUMMARY | 2021-12-28 14:23 | XMS_ITS | Encounter Summary ---
:1965 Author Organization [facility] Address [address] [place] [address] Care Team Providers Name Role Phone Tiffany Gonzalez APRN, GAIL Primary Care Provider Encounter Details Date Type Department Care Team Description 04/21/2002 Orders Only [facility] Tiffany Gonzalez, Laboratory PAL[place], DNP [address] [place] [address] (Wo rk) Social History Tobacco Use Types Packs/Day Years Used Date Smoking Tobacco: Never Assessed Sex Assigned at Date Recorded Not on file documented as of this encounter Plan of Treatment Not on filedocumented as of this encounter Procedures Procedure Name Priority Date/Time Associated Diagnosis Comme nts CREATININE Routine 04/21/2002 8:47 AM Results for this CAUSTIC ROOM OPERATOR procedure are i n the results section . documented in this encounter Results CREATININE (04/21/2002 8:47 AM CAUSTIC ROOM OPERATOR) P athologist Signature Creatinine 1.2 0.5 - 1.2 [facility] mg[facility] Specimen Anatomical Collection Method Collection Time Receive d Time (Source) Location / / Volume Laterality 04/21/2002 8:47 AM 3 8:48 CAUSTIC ROOM OPERATOR AM CAUSTIC ROOM OPERATOR Tiffany Gonzalez APRN, GAIL LAB_1 Performing Organization Address City/State/ZIP Code Phon e Number [facility] [phone] [facility] [address] [phone] documented in this encounter Visit Diagnoses Not on filedocumented in this encounter Care Teams Rear Admiral Relationship Specialty Start Date End Date Tiffany Gonzalez APRN, DNP PCP - General 01/16/00 02/03/16 [address] [place] [address] documented as of this encounter
--- OUTSIDE RECORDS SUMMARY | 2021-12-28 14:23 | XMS_ITS | Encounter Summary ---
:1965 Author Organization [facility] Address [address] [place] [address] Care Team Providers Name Role Phone Tiffany Gonzalez APRN, DNP Primary Care Provider Encounter Details Date Type Department Care Team Description 04/21/2002 Correspondence [facility] Jerel Gonzalez, LAB RESULTS Practice GAIL [place] [address] [place] [address] [place] [address] [place], [place] [address] [address] [phone] Social History Tobacco Use Types Packs/Day Years Used Date Smoking Tobacco: Never Assessed Sex Assigned at Date Recorded Not on file documented as of this encounter Progress Notes Tiffany Gonzalez - 04/21/2002 12:00 AM NOTCHED BLADE LOADER HED BLADE LOADER documented in this encounter Plan of Treatment Not on filedocumented as of this encounter Visit Diagnoses Not on filedocumented in this encounter Care Teams Director Operating Relationship Specialty Start Date End Date Tiffany Gonzalez APRN, DNP PCP - General 01/16/00 02/03/16 [address] [place] [address] documented as of this encounter
--- OUTSIDE RECORDS SUMMARY | 2021-12-28 14:23 | XMS_ITS | Encounter Summary ---
:1965 Author Organization [facility] Address [address] [place] [address] Care Team Providers Name Role Phone Tiffany Gonzalez APRN, DNP Primary Care Provider [phone] Encounter Details Date Type Department Care Team Description 05/19/2002 Telephone [facility] Long Gonzalez, Practice GAIL [place] [address] [place] [address] [address] [place] [address] [place] [address] [phone] (Wo rk) Social History Tobacco Use Types Packs/Day Years Used Date Smoking Tobacco: Never Assessed Sex Assigned at Date Recorded Not on file documented as of this encounter Nursing Notes Tiffany Gonzalez - 05/19/2002 12:00 AM MERCHANDISE EXECUTION LEADER HANDISE EXECUTION LEADER documented in this encounter Plan of Treatment Not on filedocumented as of this encounter Visit Diagnoses Not on filedocumented in this encounter Care Teams Manager Advanced Relationship Specialty Start Date End Date Tiffany Gonzalez APRN, DNP PCP - General 01/16/00 02/03/16 [address] [address] documented as of this encounter
--- OUTSIDE RECORDS SUMMARY | 2021-12-28 14:23 | XMS_ITS | Encounter Summary ---
:1965 Author Organization [facility] Address [address] [place] [address] Care Team Providers Name Role Phone Tiffany Gonzalez APRN, GAIL Primary Care Provider Encounter Details Date Type Department Care Team Description 04/10/2002 Orders Only [facility] Unkn own, Physician [address] [place] [address] (Wo rk) Social History Tobacco Use Types Packs/Day Years Used Date Smoking Tobacco: Never Assessed Sex Assigned at Date Recorded Not on file documented as of this encounter Plan of Treatment Not on filedocumented as of this encounter Procedures Procedure Name Priority Date/Time Associated Diagnosis Comme [facility] SURGICAL PATH Routine 04/10/2002 12:00 AM Results for this YARD CRANE OPERATOR procedure are i n the results section . documented in this encounter Results SURGICAL PATH (04/10/2002 12:00 AM YARD CRANE OPERATOR) [facility] Method Time Signature 9911 (NOTE) [facility] Final Report Patient Name: STEPHANIE NORMAN Taken: 04/10/02 Received: 04/10/02 Reported: 04/13/02 Physician(s): VICENTE ARREOLA ([id number]) ? [id number] Final Pathologic Diagnosis Cervical polyp ??Partly infarcted endocervical polyp. cr/04/13/02 Electronically Signed Out By Willard López MD (522) Procedures/Addenda Clinical History Cervical polyp Gross Description The specimen is labelled cervix. ??The specimen consists of two 0.7 cm in greatest dimension, brown sahu to black pieces of tissue. ??The specimen is entirely submitted in one cassette. ??(dm) cr/04/13/02 Willard López MD (522) Jaime OVALLES Microscopic Description Microscopic examination is performed on 1 slide. cr/04/13/02 Willard López MD (522) Specimen (Source) Anatomical Location Collection Method / Collectio n Time Received Time / Laterality Volume 04/10/2002 04/10/2002 Physician Unknown LAB_1 Performing Organization Address City/State/ZIP Code Phon e Number [address] [address] [place], [place] [phone] documented in this encounter Visit Diagnoses Not on filedocumented in this encounter Care Teams Rn Building Relationship Specialty Start Date End Date Tiffany Gonzalez APRN, DNP PCP - General 01/16/00 02/03/16 [address] [place] [id number] documented as of this encounter
--- OUTSIDE RECORDS SUMMARY | 2021-12-28 14:23 | XMS_ITS | Encounter Summary ---
:1965 Author Organization [facility] Address [address] [place] [address] Care Team Providers Name Role Phone Tiffany Gonzalez APRN, GAIL Primary Care Provider [phone] Encounter Details Date Type Department Care Team Description 05/25/2001 Orders Only [facility] Long [facility], [facility] HYDRO STATION SUPERVISOR, DNP [address] [place] [address] [place] [address] [place] [address] (Wo rk) Social History Tobacco Use Types Packs/Day Years Used Date Smoking Tobacco: Never Assessed Sex Assigned at Date Recorded Not on file documented as of this encounter Procedure Notes Mitchell Benítez - 05/25/2001 12:00 AM CSTAssociated Order(s): BREAST IMAGING CLINICAL DATA: Screening mammograms. ACR BIRADS CATEGORY 1 - NEGATIVE MAMMOGRAM. EXAMINATION: IN SUMMARY: Bilateral mammograms done on 05/25/01. Exam is compared to 02/02/00. Irregularly dense breast parenchyma is again noted. IMPRESSION: There's no mammographic evidence of malignancy. Mitchell Benítez MD cc: Radiology Tiffany Sandhu NP N COFFEE BLENDER documented in this encounter Plan of Treatment Not on filedocumented as of this encounter Procedures Procedure Name Priority Date/Time Associated Diagnosis Comme nts BREAST IMAGING 05/25/2001 Results for t his procedure are in the resu lts section. documented in this encounter Results BREAST IMAGING (05/25/2001) Anatomical Region Laterality Modality Breast Other Specimen (Source) Anatomical Location Collection Method / Collectio n Time Received Time / Laterality Volume Transcriptions Jackelin Mitchell Holley - 05/25/2001 12:00 AM CSTCLINICAL DATA: Screening mammograms. ACR BIRADS CATEGORY 1 - NEGATIVE MAMMOGR AM. EXAMINATION: IN SUMMARY: Bilateral mammo grams done on 05/25/01. Exam is compared to 02/02/00. Irregularly dense breast parenchyma is a gain noted. IMPRESSION: There's no mammographic evid ence of malignancy. Mitchell Benítez MD cc: Radiology Tiffany Sandhu NP Tiffany Gonzalez APRN, DNP RAD_BI documented in this encounter Visit Diagnoses Not on filedocumented in this encounter Care Teams Transverse Abdominal Muscle Nurse Relationship Specialty Start Date End Date Tiffany Gonzalez APRN, DNP PCP - General 01/16/00 02/03/16 [address] [place] [id number] documented as of this encounter
--- OUTSIDE RECORDS SUMMARY | 2021-12-28 14:23 | XMS_ITS | Encounter Summary ---
:1965 Author Organization [facility] Address [address] [place] [address] Care Team Providers Name Role Phone Tiffany Gonzalez APRN, GAIL Primary Care Provider [phone] Encounter Details Date Type Department Care Team Description 04/17/2002 Telephone [facility] Long Gonzalez, Practice BAIL BOND AGENT, DNP [address] [place] [id number] [place] [address] (Wo rk) Social History Tobacco Use Types Packs/Day Years Used Date Smoking Tobacco: Never Assessed Sex Assigned at Date Recorded Not on file documented as of this encounter Nursing Notes Tiffany Gonzalez - 04/17/2002 12:00 AM CSTCarol was called today regarding elevated creatinine level. She does have a normal fasting blood sugar. Because of the elevated creatinine level at 1.3, will go ahead with a 24-hour urine creatinine clearance test. She has a history of polycystic kidney disease. Discussed above with Dr. Delgadillo. If 24-hour urine creatinine clearance is abnormal, will refer her to Appliance Service Technician. IN SUMMARY: ELEVATED CREATININE LEVEL. cc: UTER PROGRAMMER documented in this encounter Plan of Treatment Not on filedocumented as of this encounter Visit Diagnoses Not on filedocumented in this encounter Care Teams Edi Architect Relationship Specialty Start Date End Date Tiffany Gonzalez APRN, DNP PCP - General 01/16/00 02/03/16 [address] [place] [id number] documented as of this encounter
--- OUTSIDE RECORDS SUMMARY | 2021-12-28 14:23 | XMS_ITS | Encounter Summary ---
:[address] [facility] Address [address] [place] [address] Care Team Providers Name Role Phone Marcelo Gonzalez APRN, GAIL Primary Care Provider Encounter Details Date Type Department Care Team Description 04/07/2002 Orders Only [facility] Unkn own, Physician [address] [place] [address] (Wo rk) Social History Tobacco Use Types Packs/Day Years Used Date Smoking Tobacco: Never Assessed Sex Assigned at Date Recorded Not on file documented as of this encounter Plan of Treatment Not on filedocumented as of this encounter Procedures Procedure Name Priority Date/Time Associated Diagnosis Comme nts PAP TEST, ROUTINE Routine 04/07/2002 12:00 AM Res ults for this SLITTING MACHINE OPERATOR procedure are i n the results section. documented in this encounter Results PAP SMEAR, ROUTINE (04/07/2002 12:00 AM SLITTING MACHINE OPERATOR) [facility] Method Time Signature Cytology, Pap (NOTE) [facility] Immunologist Cytology Report Patient Name: STEPHANIE NORMAN Taken: 04/07/02 Received: 04/10/02 Reported: 04/16/02 Physician(s): MARCELO GONZALEZ ([id number]) ? [id number] Final Cytologic Diagnosis Cervical Endocervical,routine: ? Satisfactory for evaluation. ??Endocervical cells and/or squamous metaplastic cells ??present. ? WITHIN NORMAL LIMITS (WNL) Comment kp1/04/16/02 Electronically Signed Out By NOE ONEAL ?? CT(ASCP) NOE ONEAL ??CT(ASCP) Source of Specimen(s) Cervical Endocervical,routine Clinical History Date of Last Menstrual Period: ? 03/31/02 Menstrual History: Contraceptive History: Cancer History: Infection History: Treatment History: Other Clinical Conditions: LAST PAP: 01/19/00 Other Related Clinical Data Specimen (Source) Anatomical Collection Method Collection Time Re ceived Time Location / / Volume Laterality 04/07/2002 04/10/2002 2:04 PM SLITTING MACHINE OPERATOR Physician Unknown LAB_1 Performing Organization Address City/State/ZIP [facility] Phon e Number [address] [address] [place], [place] [phone] documented in this encounter Visit Diagnoses Not on filedocumented in this encounter Care Teams Sequins Slinger Relationship Specialty Start Date End Date Marcelo Gonzalez APRN, DNP PCP - General 01/16/00 02/03/16 [address] [place] [id number] documented as of this encounter
--- OUTSIDE RECORDS SUMMARY | 2021-12-28 14:24 | XMS_ITS | Encounter Summary ---
:1965 [facility] Address [address] [place] [address] Care Team Providers Name Role Phone Unavailable Primary Care Provider Unavailable Encounter Details Date Type Department Care Team Description 12/14/1998 Orders Only Social History Tobacco Use Types Packs/Day Years Used Date Smoking Tobacco: Never Assessed Sex Assigned at Date Recorded Not on file documented as of this encounter Plan of Treatment Not on filedocumented as of this encounter Procedures Procedure Name Priority Date/Time Associated Diagnosis Comme nts STREP GRP A, RAPID Waiting 12/14/1998 9:56 AM Res ults for this SCREEN CDT procedure are i n the results section. documented in this encounter Results RAPID, GPA STREP SCREEN (WAITI (12/14/1998 9:56 AM CDT) [facility] Method Time Signature Patient Home None [employer] Phone # Patient Work None [employer] Phone # Grp A Rapid Negative [facility] Screen Grp A Culture Negative [facility] Final Specimen Anatomical Collection Method Collection Time Receive d Time (Source) Location / / Volume Laterality 12/14/1998 9:56 AM 9 CDT 10:04 AM CDT Full Range [facility] LAB_1 Performing Organization Address City/State/ZIP Code Phon e Number [facility] [phone] [facility] [address] [address] documented in this encounter Visit Diagnoses Not on filedocumented in this encounter
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
--- OUTSIDE RECORDS SUMMARY | 2021-12-28 14:24 | XMS_ITS | Encounter Summary ---
:1965 Author Organization [facility] Address [address] [place] [address] Care Team Providers Name Role Phone Unavailable Primary Care Provider Unavailable Encounter Details Date Type Department Care Team Description 04/05/1997 Notes/Orders Hoda Padilla MD [address] [place], [place] [address] (Wo rk) Social History Tobacco Use Types Packs/Day Years Used Date Smoking Tobacco: Never Assessed Sex Assigned at Date Recorded Not on file documented as of this encounter Plan of Treatment Not on filedocumented as of this encounter Procedures Procedure Name Priority Date/Time Associated Diagnosis Comme nts TEST Waiting 04/05/1997 4:49 PM Results for this (URINE) BANK VAULT ATTENDANT procedure are i n the results section. documented in this encounter Results TEST (URINE) (04/05/1997 4:49 PM BANK VAULT ATTENDANT) [facility] Method Time Signature HCG, Urine Negative [facility] Negative = < 25 mIU/ml Specimen Anatomical Collection Method Collection Time Receive d Time (Source) Location / / Volume Laterality 04/05/1997 4:49 PM 7 4:50 BANK VAULT ATTENDANT PM BANK VAULT ATTENDANT Hoda Padilla MD LAB_1 Performing Organization Address City/State/ZIP Code Phon e Number [facility] [phone] [facility] [address] [address] documented in this encounter Visit Diagnoses Not on filedocumented in this encounter
--- OUTSIDE RECORDS SUMMARY | 2021-12-28 14:24 | XMS_ITS | Encounter Summary ---
:1965 Author Organization [facility] Address [address] [place] [address] Care Team Providers Name Role Phone Unavailable Primary Care Provider Unavailable Encounter Details Date Type Department Care Team Description 02/12/[address] [place] Javi Richardson Tension headache; Internal Medicine [facility] Polycystic kidney, unspecified type 00 [facility], [address] Social History Tobacco Use Types Packs/Day Years Used Date Smoking Tobacco: Never Assessed Sex Assigned at Date Recorded Not on file documented as of this encounter Progress Notes Javi Richardson - 02/12/1995 12:00 AM CDTS: 29-year-old, who comes in for follow-up of headaches. She has been taking Tylenol rather than Advil for her headaches which occur about three times a week. She ends up taking about 1500 mg. 3 times a week and reports that this seems to help her headaches. 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 She has an appointment for the TMJD clinic in a few days. I suspect that treatment of degenerative joint disease will help in reducing the severity of her headaches as well. With regard to her history of polycystic kidney disease, her creatinine was 1.1 and a urinalysis showed hemostat positive although she was having her period at the time. O: Her blood pressure is 124/80, no physical examination was done today. 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 2. Hx. of polycystic kidney disease. page 2... P: 1. I will await evaluation by the TMJD clinic and their recommendations. 2. I will repeat the urinalysis with micro today. cc: documented in this encounter Plan of Treatment Not on filedocumented as of this encounter Visit Diagnoses Diagnosis Tension headache Polycystic kidney, unspecified type documented in this encounter
--- OUTSIDE RECORDS SUMMARY | 2021-12-28 14:24 | XMS_ITS | Encounter Summary ---
:1965 Author Organization [facility] Address [address] [place] [address] Care Team Providers Name Role Phone Unavailable Primary Care Provider Unavailable Encounter Details Date Type Department Care Team Description 04/03/1997 Office Visit [facility] Tiffany Still APRN, PHARYNGITIS(SORE [address] DNP THROAT) [place], [place] [address] [address] [place], [place] [id number] (Wo rk) Social History Tobacco Use Types Packs/Day Years Used Date Smoking Tobacco: Never Assessed Sex Assigned at Date Recorded Not on file documented as of this encounter Progress Notes Tiffany Gonzalez - 04/03/1997 12:00 AM CSTCHIEF COMPLAINT: 32-year-old female with pharyngitis. S: Sore throat for 3 days, feeling left sided lump on her neck which is tender. Also complains of fatigue and decreased energy. O: Healthy appearing female in no apparent distress. Temp. 98.5 Pulse 70. BP 130/80 with the right cuff. Pharynx without erythema or edema. Clear, no drainage is seen. No lymphaadenopathy to preauricular, tonsil, anterior and posterior cervical chain nodes, although complains of tenderness on palpation of the left anterior cervical chain.. Rapid strep screen negative. A: Pharyngitis, probably viral. P: Increased rest, fluids, humidification, follow-up if symptoms persist beyond 14 days. cc: Tiffany Sandhu NP MANAGEMENT ADVISER documented in this encounter Plan of Treatment Not on filedocumented as of this encounter Visit Diagnoses Diagnosis Acute pharyngitis documented in this encounter
--- OUTSIDE RECORDS SUMMARY | 2021-12-28 14:24 | XMS_ITS | Encounter Summary ---
:1965 Author Organization [facility] Address [address] [place] [address] Care Team Providers Name Role Phone Unavailable Primary Care Provider Unavailable Encounter Details Date Type Department Care Team Description 03/17/1995 Office Visit [facility] Naun Parks Articular disc disorder 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
--- OUTSIDE RECORDS SUMMARY | 2021-12-28 14:24 | XMS_ITS | Encounter Summary ---
:1965 Author Organization [facility] Address [address] [place] [address] Care Team Providers Name Role Phone Tiffany Gonzalez APRN, GAIL Primary Care Provider [phone] Encounter Details Date Type Department Care Team Description 01/19/2000 Orders Only [facility] Tiffany Gonzalez, [address] [place], [place], [place] [phone] [phone] [place], [place] [phone] (Wo rk) Social History Tobacco Use Types Packs/Day Years Used Date Smoking Tobacco: Never Assessed Sex Assigned at Date Recorded Not on file documented as of this encounter Plan of Treatment Not on filedocumented as of this encounter Procedures Procedure Name Priority Date/Time Associated Diagnosis Comme nts CHOLESTEROL, TOTAL Routine 01/19/2000 8:37 AM Res ults for this AND HDL CDT procedure are i n the results section. FERRITIN Routine 01/19/2000 8:37 AM Results f or this CDT procedure are i n the results section. VAGINAL WET PREP Waiting 01/19/2000 8:37 AM Resul ts for this CDT procedure are i n the results section. TSH, SENSITIVE Routine 01/19/2000 8:37 AM Results for this (WITH REFLEX) CDT procedure are in the results section. IRON PROFILE Routine 01/19/2000 8:37 AM Results f or this (IRON,TIBC,%SAT.(CA CDT procedur e are in LC)) the results section. GLUCOSE Routine 01/19/2000 8:37 AM Results f or this CDT procedure are i n the results section. documented in this encounter Results TSH, SENSITIVE (01/19/2000 8:37 AM CDT) athologist Signature TSH 3.22 0.30 - 5.00 [facility] uIU/ml Thyroid Meds No [facility] Specimen Anatomical Collection Method Collection Time Receive d Time (Source) Location / / Volume Laterality 01/19/2000 8:37 AM 0 8:38 CDT AM CDT Tiffany Gonzalez APRN, DNP LAB_1 Performing Organization Address [facility] Phon e Number [facility] [phone] [facility] [address] [phone] FERRITIN (01/19/2000 8:37 AM CDT) athologist Signature Ferritin 48 10 - 151 [facility] ng/ml Specimen Anatomical Collection Method Collection Time Receive d Time (Source) Location / / Volume Laterality 01/19/2000 8:37 AM 0 8:38 CDT AM CDT Tiffany Gonzalez APRN, DNP LAB_1 Performing Organization Address [facility] Phon e Number [employer] [phone] COUNT INCLUDES THE [facility] [address] [place] [phone] GLUCOSE - RANDOM < 8HR FASTING) (01/19/2000 8:37 AM CDT) athologist Signature Glucose 84 65 - 115 [facility] mg/dl Hours Fasting 1.5 hours [facility] Specimen Anatomical Collection Method Collection Time Receive d Time (Source) Location / / Volume Laterality 01/19/2000 8:37 AM 0 8:38 CDT AM CDT Tiffany Gonzalez APRN, DNP LAB_1 Performing Organization Address [facility] Phon e Number [email or web address] [phone] [facility] [address] [place] [phone] IRON, TIBC, % SAT. (CALC.) (01/19/2000 8:37 AM CDT) athologist Signature Iron 100 40 - 180 [facility] mcg/dl TIBC 332 244 - 418 [facility] mcg/dl % Saturation, 30 20 - 50 % [facility] calc. Specimen Anatomical Collection Method Collection Time Receive d Time (Source) Location / / Volume Laterality 01/19/2000 8:37 AM 0 8:38 CDT AM CDT Tiffany Gonzalez APRN, DNP LAB_1 Performing Organization Address [facility] Phon e Number [facility] [phone] [facility] [address] [place] [phone] (ABNORMAL) CHOLESTEROL, TOTAL AND HDL (01/19/2000 8:37 AM CDT) Component Value Ref Test Analysis Performed At [facility] VANDOLAY Range Method Time Signature Cholesterol 210 (H) <200 [facility] mg/dl Cholesterol Result should not be interpreted without [facility] the patient's history of cardiovascular risk factors. HDL 47 >35 [facility] mg/dl Specimen Anatomical Collection Method Collection Time Receive d Time (Source) Location / / Volume Laterality 01/19/2000 8:37 AM 0 8:38 CDT AM CDT Tiffany Gonzalez APRN, DNP LAB_1 Performing Organization Address [facility] Phon e Number [email or web address] [phone] [facility] [address] [place] [phone] (ABNORMAL) WET PREP, VAGINAL (01/19/2000 8:37 AM CDT) [facility] Method Time Signature Epithelials Many [facility] % Atrophic 0 [facility] Epith WBC'S Many [facility] Bacteria Many [facility] Clue Cells 0 [facility] Trichomonas 0 [facility] Yeast 0 [facility] pH 5.0 (H) 3.5 - 4.5 [facility] Specimen Anatomical Collection Method Collection Time Receive d Time (Source) Location / / Volume Laterality 01/19/2000 8:37 AM 0 8:38 CDT AM CDT Tiffany Gonzalez APRN, DNP LAB_1 Performing Organization Address City/State/[facility] Code Phon e Number [facility] [phone] [phone] documented in this encounter Visit Diagnoses Not on filedocumented in this encounter Care Teams Landfill Grader Relationship Specialty Start Date End Date Tiffany Gonzalez APRN, DNP PCP - General 01/16/00 02/03/16 [address] [place] [id number] documented as of this encounter
--- OUTSIDE RECORDS SUMMARY | 2021-12-28 14:24 | XMS_ITS | Encounter Summary ---
:1965 Author Organization [facility] Address [address] [place] [address] Care Team Providers Name Role Phone Unavailable Primary Care Provider Unavailable Encounter Details Date Type Department Care Team Description 12/19/1996 Office Visit [place] Soren Padilla, DERMA TOPHYTOSIS SITE NOS; wastewater treatment supervisor VACCINE FOR TETANUS + DIPHTHERIA [phone] [place] [address] [phone] [place] [address] (Wo rk) Social History Tobacco Use Types Packs/Day Years Used Date Smoking Tobacco: Never Assessed Sex Assigned at Date Recorded Not on file documented as of this encounter Progress Notes Soren Padilla - 12/19/1996 12:00 AM CDTS: Rash under her breasts for about a week or so. It is very itchy. She has been using 1% HC cream which helps a little bit. She also has a mole on the right side of her neck which she wants checked out. It has been there many years. Sometimes it changes in size. O: Very red, clearly defined yeast dermatitis rash under both breasts in an area about 10 x 15 cm. each side. There is a benign appearing 4 mm. flesh colored, slightly raised mole on the right side of her neck. A: Intertriginous yeast dermatitis below breasts and benign mole. P: I reassured her about the benign mole. Told her about warning signs. Have recommended Naftin cream b.i.d. for 2-4 weeks and Triamcinolone .1% cream b.i.d. to t.i.d. prn for itching. If not resolving call for f/u. I talked with her about avoiding this problem in the future. cc: documented in this encounter Plan of Treatment Not on filedocumented as of this encounter Visit Diagnoses Diagnosis Dermatophytosis of unspecified site Need for Td vaccine Need for prophylactic vaccination with t etanus-diphtheria (Td) documented in this encounter
--- OUTSIDE RECORDS SUMMARY | 2021-12-28 14:24 | XMS_ITS | Encounter Summary ---
:1965 Author Organization [facility] Address [address] [place] [address] Care Team Providers Name Role Phone Unavailable Primary Care Provider Unavailable Encounter Details Date Type Department Care Team Description 01/19/1995 Office Visit [place] Julia Irby Gynecol ogical Obstetrics and AMY CULVER examination Gynecology [facility] [address] [place] [phone] Social History Tobacco Use Types Packs/Day Years Used Date Smoking Tobacco: Never Assessed Sex Assigned at Date Recorded Not on file documented as of this encounter Progress Notes Julia Ibry APRN, CNP - 01/19/1995 12:00 AM CDTS: Stephanie presents today for RHM and pap smear. Age 29. Para 0000. Contraception; none. LMP 01/07/95. Allergies; Amox. Meds.; multivitamin. Menses q.30-32 days with 4 days flow with minimal cramping and occasionally takes Advil with relief. Claims a hx. of an abnormal pap smear in the summer with colposcopy done. Claims she thought the bx. was normal. She did not have any treatment and then she had one normal f/u pap smear the fall. This was done at the [facility]. She has been now for one yr. and feels this is a stable relationship and denies issues of abuse. She went off her BCP's (Nordette) 6 mos. ago and she and her have been trying for a now for the past 3 mos. All her questions and concerns addressed and issues were discussed with her. She is a nonsmoker. FH; breast cancer for mother age 41. She of this at age 43. Cancer of the uterus, cervix, ovaries neg. Diabetes neg. Heart disease; father, hypertension. O: Ht. 5'8, wt. 112. BP 120/72. Breasts are smooth, soft, without prominent masses noted. Supraclavicular and axillary areas are clear. External genitalia and BSU WNL. Normal appearing vaginal wall rugae with clear mucus type discharge noted in vaginal vault. Cervix nulliparous and pap smear obtained using wooden spatula and cytobrush with ease. Uterus is small, firm, mobile, nontender and anteverted. Adnexa without masses or tenderness. Rectovaginal exam confirms. A: RHM. FH of breast cancer. P: 1. Pap smear. New pap smear protocol reviewed with Stephanie. She read the handout and her questions answered. CBC, cholesterol with HDL. 2. Monthly self breast exams reviewed and encouraged to do. 3. Planning a healthy class handout was given. Discussed the program with her briefly. Also literature given on planning a healthy , information on folic acid intake, to continue on her multi-vitamins. Also discussed proper nutrition, exercise, getting plenty of rest, generally taking good care of herself and if her period does not come this mo. she is to RTC for a waiting test. cc: documented in this encounter Plan of Treatment Not on filedocumented as of this encounter Visit Diagnoses Diagnosis Gynecological examination documented in this encounter
--- OUTSIDE RECORDS SUMMARY | 2021-12-28 14:24 | XMS_ITS | Encounter Summary ---
:1965 Author Organization [facility] Address [address] [place] [address] Care Team Providers Name Role Phone Unavailable Primary Care Provider Unavailable Encounter Details Date Type Department Care Team Description 03/29/1995 Office Visit [place] [facility] Lula Wiggins, Articular disc disorder [address] 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
--- OUTSIDE RECORDS SUMMARY | 2021-12-28 14:24 | XMS_ITS | Encounter Summary ---
:1965 Author [facility] Address [address] [place] [address] Care Team Providers Name Role Phone Unavailable Primary Care Provider Unavailable Encounter Details Date Type Department Care Team Description 02/17/1995 Office Visit [place] [facility] Naun Parks Localized osteoarthrosis [address] [place] [address] primary or secondary, [place], [place] other specifi ed sites [phone] Social History Tobacco Use Types Packs/Day Years Used Date Smoking Tobacco: Never Assessed Sex Assigned at Date Recorded Not on file documented as of this encounter Plan of Treatment Not on filedocumented as of this encounter Visit Diagnoses Diagnosis Localized osteoarthrosis not specified w hether primary or secondary, other specified sites documented in this encounter
--- OUTSIDE RECORDS SUMMARY | 2021-12-28 14:24 | XMS_ITS | Encounter Summary ---
:1965 Author Organization [facility] Address [address] [place] [address] Care Team Providers Name Role Phone Unavailable Primary Care Provider Unavailable Encounter Details Date Type Department Care Team Description 05/02/1997 Orders Only [place] Hoda Padilla SCREENI NG MAL NEOP-BREAST; Obstetrics and MD FAMILY HX-BREAST MALIG Gynecology [address] [place] [address] Social History Tobacco Use Types Packs/Day Years Used Date Smoking Tobacco: Never Assessed Sex Assigned at Date Recorded Not on file documented as of this encounter Procedure Notes Truong Young - 05/02/1997 12:00 AM CSTAssociated Order(s): MAMMOGRAM, SCREENING CLINICAL DATA: SCREEN INTERPRETATION: BILATERAL MAMMOGRAM 05/02/97: There are no suspicious masses or calcifications seen. There is no mammographic evidence for malignancy. There has been no significant change compared to the previous study dated 07/11/90. ACR BIRADS CATEGORY 1 - NEGATIVE MAMMOGRAM. Truong Young MD cc: Radiology Hoda Padilla MD VISION TECHNICIAN documented in this encounter Plan of Treatment Not on filedocumented as of this encounter Procedures Procedure Name Priority Date/Time Associated Diagnosis Comme nts MAMMOGRAM, 05/02/1997 12:00 AM Screening Mal Results for this SCREENING TELEVISION TECHNICIAN Neop-Breast procedure are in Family Hx-Breast the results Malig section. documented in this encounter Results MAMMOGRAM, SCREENING (05/02/1997 12:00 AM TELEVISION TECHNICIAN) Anatomical Region Laterality Modality Breast Other Specimen (Source) Anatomical Location Collection Method / Collectio n Time Received Time / Laterality Volume 05/02/1997 Transcriptions Truong Young - 05/02/1997 12 :00 AM CSTCLINICAL DATA: SCREEN INTERPRETATION: BILATERAL MAMMOGRAM 05/02: There are no suspicious masses or calcifications seen. There is no mammogr aphic evidence for malignancy. There has been no significant change com pared to the previous study dated 07/11/90. ACR BIRADS CATEGORY 1 - NEGATIVE MAMMOGR AM. Truong Young MD cc: Radiology Hoda Padilla MD Hoda Padilla MD RAD_BI documented in this encounter Visit Diagnoses Diagnosis Screening for malignant neoplasm of the breast Breast screening, unspecified Family history of malignant neoplasm of breast documented in this encounter
--- OUTSIDE RECORDS SUMMARY | 2021-12-28 14:24 | XMS_ITS | Encounter Summary ---
:1965 Author Organization [facility] Address [address] [place] [address] Care Team Providers Name Role Phone Unavailable Primary Care Provider Unavailable Encounter Details Date Type Department Care Team Description 04/03/1997 Notes/Orders Social History Tobacco Use Types Packs/Day Years Used Date Smoking Tobacco: Never Assessed Sex Assigned at Date Recorded Not on file documented as of this encounter Plan of Treatment Not on filedocumented as of this encounter Procedures Procedure Name Priority Date/Time Associated Diagnosis Comme nts STREP GRP A, RAPID Waiting 04/03/1997 3:53 PM Res ults for this SCREEN LIGHTING DESIGNER procedure are i n the results section. documented in this encounter Results RAPID, GPA STREP SCREEN (WAITING) (04/03/1997 3:53 PM LIGHTING DESIGNER) [facility] Method Time Signature Patient Home [id number] [employer] Phone # Patient Work None [facility] Phone # Grp A Rapid Negative [facility] Screen Grp A Culture Negative [facility] Final Specimen Anatomical Collection Method Collection Time Receive d Time (Source) Location / / Volume Laterality 04/03/1997 3:53 PM 7 3:54 LIGHTING DESIGNER PM LIGHTING DESIGNER Rn [place] Nurse LAB_1 Performing Organization Address City/State/ZIP Code Phon e Number [facility] [phone] [facility] [address] [phone] documented in this encounter Visit Diagnoses Not on filedocumented in this encounter
--- OUTSIDE RECORDS SUMMARY | 2021-12-28 14:24 | XMS_ITS | Encounter Summary ---
:1965 Author Organization [facility] Address [address] [place] [address] Care Team Providers Name Role Phone Unavailable Primary Care Provider Unavailable Reason for Visit Reason Comments SORE THROAT, VIA INTERFACE Encounter Details Date Type Department Care Team Description 12/14/1998 Office [address] [facility] PHARYNGITIS(SORE THROAT); [place] LABORATORY EXAMINATION [address] [place], [place] [address] Social History Tobacco Use Types Packs/Day Years Used Date Smoking Tobacco: Never Assessed Sex Assigned at Date Recorded Not on file documented as of this encounter Progress Notes Chaparro Aldana - 12/14/1998 12:00 AM CDTS: The patient has had a sore throat for one week and has developed white spots on her left tonsil. It hurts when she swallows. She has not had a fever. Her general health has been good. Bowels and bladder are functional. O: HEENT: Tympanic membranes are clear. Inspection of the pharynx shows a white material with a pussy appearance on the left tonsil. The patient is able to swallow. Lungs: Clear. Heart: Regular. Abdomen: Negative. Laboratory: Rapid strep test is negative. A: Tonsillitis. P: The patient was given a prescription for erythromycin ES 400 mg to take one q.i.d. She is to gargle with hot salt water to clean the tonsil. I expect resolution or return to recheck. cc: documented in this encounter Plan of Treatment Not on filedocumented as of this encounter Visit Diagnoses Diagnosis Acute pharyngitis Laboratory examination documented in this encounter
--- OUTSIDE RECORDS SUMMARY | 2021-12-28 14:24 | XMS_ITS | Encounter Summary ---
:1965 Author Organization [facility] Address [address] [place] [address] Care Team Providers Name Role Phone Haylee Alanis APRN, CNP Primary Care Provider [phone] Encounter Details Date Type Department Care Team Description 04/10/1997 Orders Only Lee Brumfield, DO [address] [place], [place] [address] (Wo rk) Social History Tobacco Use Types Packs/Day Years Used Date Smoking Tobacco: Never Assessed Sex Assigned at Date Recorded Not on file documented as of this encounter Plan of Treatment Not on filedocumented as of this encounter Visit Diagnoses Not on filedocumented in this encounter Care Teams Supervisor Tunnel Heading Relationship Specialty Start Date End Date Haylee Alanis APRN, CNP PCP - General Nurse Practitioner 02/04/[address] [place] [address] documented as of this encounter
--- OUTSIDE RECORDS SUMMARY | 2021-12-28 14:24 | XMS_ITS | Encounter Summary ---
:1965 Author Organization [facility] Address [address] [place] [address] Care Team Providers Name Role Phone Tiffany Gonzalez APRN, DNP Primary Care Provider Encounter Details Date Type Department Care Team Description 01/19/2000 Orders Only [facility], [place] [address] Social History Tobacco Use Types Packs/Day Years Used Date Smoking Tobacco: Never Assessed Sex Assigned at Date Recorded Not on file documented as of this encounter Plan of Treatment Not on filedocumented as of this encounter Visit Diagnoses Not on filedocumented in this encounter Care Teams Division Roadmaster Relationship Specialty Start Date End Date Tiffany Gonzalez APRN, DNP PCP - General 01/16/00 02/03/16 [address] [id number] documented as of this encounter
--- OUTSIDE RECORDS SUMMARY | 2021-12-28 14:24 | XMS_ITS | Encounter Summary ---
:1965 Author Organization [facility] Address [address] [place] [address] Care Team Providers Name Role Phone Unavailable Primary Care Provider Unavailable Encounter Details Date Type Department Care Team Description 04/03/1997 Office Visit [place] Javi Velez ACUTE PH ARYNGITIS[facility] E, THROAT) [address] [place] [address] Social History Tobacco Use Types Packs/Day Years Used Date Smoking Tobacco: Never Assessed Sex Assigned at Date Recorded Not on file documented as of this encounter Plan of Treatment Not on filedocumented as of this encounter Visit Diagnoses Diagnosis Acute pharyngitis documented in this encounter
--- OUTSIDE RECORDS SUMMARY | 2021-12-28 14:24 | XMS_ITS | Encounter Summary ---
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
--- OUTSIDE RECORDS SUMMARY | 2021-12-28 14:24 | XMS_ITS | Encounter Summary ---
:1965 Author Organization [facility] Address [address] [place] [address] Care Team Providers Name Role Phone Unavailable Primary Care Provider Unavailable Encounter Details Date Type Department Care Team Description 03/29/1995 Office Visit [place] TMD Naun Parks Articular disc disorder 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
--- OUTSIDE RECORDS SUMMARY | 2021-12-28 14:24 | XMS_ITS | Encounter Summary ---
:1965 Author [facility] Address [address] [place] [address] Care Team Providers Name Role Phone Unavailable Primary Care Provider Unavailable Encounter Details Date Type Department Care Team Description 01/24/1997 Notes/Orders Obey Gonzalez, [place], DNP [address] [place] [address] (Wo rk) Social History Tobacco Use Types Packs/Day Years Used Date Smoking Tobacco: Never Assessed Sex Assigned at Date Recorded Not on file documented as of this encounter Plan of Treatment Not on filedocumented as of this encounter Procedures Procedure Name Priority Date/Time Associated Diagnosis Comme nts STREP GRP A, RAPID Waiting 01/24/1997 9:00 AM Res ults for this SCREEN CDT procedure are i n the results section. documented in this encounter Results RAPID, GPA STREP SCREEN (WAITING) (01/24/1997 9:00 AM CDT) [facility] Method Time Signature Patient Home [id number] [employer] [facility] Phone # Patient Work None [facility] Phone # Grp A Rapid Negative [facility] Screen Grp A Culture Negative [facility] Final Specimen Anatomical Collection Method Collection Time Receive d Time (Source) Location / / Volume Laterality 01/24/1997 9:00 AM 7 9:01 CDT AM CDT Tiffany Gonzalez APRN, GAIL LAB_1 Performing Organization Address City/State/ZIP Code Phon e Number [facility] [phone] [place] [id number] [address] [address] documented in this encounter Visit Diagnoses Not on filedocumented in this encounter
--- OUTSIDE RECORDS SUMMARY | 2021-12-28 14:24 | XMS_ITS | Encounter Summary ---
:1965 Author Organization [facility] Address [address] [place] [address] Care Team Providers Name Role Phone Haylee Alanis APRN, CNP Primary Care Provider [phone] Encounter Details Date Type Department Care Team Description 12/19/1996 Orders Only Soren Padilla MD [place] [facility] [address] [place] [address] (Wo rk) Social History Tobacco Use Types Packs/Day Years Used Date Smoking Tobacco: Never Assessed Sex Assigned at Date Recorded Not on file documented as of this encounter Plan of Treatment Not on filedocumented as of this encounter Visit Diagnoses Not on filedocumented in this encounter Care Teams Ultrasound Spec Relationship Specialty Start Date End Date Haylee Alanis APRN, CNP PCP - General Nurse Practitioner 02/04/16 [address] [place] [address] documented as of this encounter
--- OUTSIDE RECORDS SUMMARY | 2021-12-28 14:24 | XMS_ITS | Encounter Summary ---
:1965 Author Organization [facility] Address [address] [place] [address] Care Team Providers Name Role Phone Unavailable Primary Care Provider Unavailable Encounter Details Date Type Department Care Team Description 02/28/1997 Office Visit [place] Hoda Padilla, GYNECOL OGIC EXAMINATION; Obstetrics and MD FEMALE INFERTILITY NOS Gynecology [address] [place], [place] [id number] Social History Tobacco Use Types Packs/Day Years Used Date Smoking Tobacco: Never Assessed Sex Assigned at Date Recorded Not on file documented as of this encounter Progress Notes Hoda Padilla - 02/28/1997 12:00 AM CSTS: Stephanie is 31-year-old 0, who comes in today for a pap smear and also because she wants to get . She and her , Osbaldo, have been trying since they got 3 years ago. She says her periods are just like clockwork, every 28-29 days. Her is responsible for a single when he was a teenager 30 years ago. Stephanie's mother at age 44 of recurrent breast cancer. Her dad is 55 and has high blood pressure and polycystic kidneys. He has received a kidney transplant and the donor was his son. He has had some skin cancers taken off his lip that are attributed to the immunosuppressive drugs he received after the transplant. O: On , Stephanie weighed 219 lb. and her BP 120/72. Examination of the neck reveals no thyroid enlargement and there is no cervical or supraclavicular adenopathy. No masses in either breast or axilla. On speculum exam, the cervix and vagina appear normal. Pap smear taken. On bimanual exam, the uterus is mid position, normal in size, freely movable, nontender and there are no adnexal masses or tenderness. A: 1. Normal pelvic exam. 2. Infertility. P: I discussed the workup with Stephanie at length. She wants to begin. I gave her a lab slip for her 's semen analysis. His name is Osbaldo Roman, his date is [birth year]54 and his medical record number is [id number]. I gave her a basal body temp. chart and asked her to buy Ovu-quick ovulation predictor kit. I asked her to call me when her next period starts and we would schedule an hystosalpingogram and then I will do the post coital and endo. bx tests, based on her surge. cc: TAKER documented in this encounter Plan of Treatment Not on filedocumented as of this encounter Visit Diagnoses Diagnosis Gynecological examination Female infertility of unspecified origin documented in this encounter
--- OUTSIDE RECORDS SUMMARY | 2021-12-28 14:24 | XMS_ITS | Encounter Summary ---
:1965 Author Organization [facility] Address [address] [place] [address] Care Team Providers Name Role Phone Unavailable Primary Care Provider Unavailable Encounter Details Date Type Department Care Team Description 03/02/1995 Office Visit [place] TMD Naun Parks Articular disc disorder 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
--- OUTSIDE RECORDS SUMMARY | 2021-12-28 14:24 | XMS_ITS | Encounter Summary ---
:1965 Author Organization [facility] Address [address] [place] [address] Care Team Providers Name Role Phone Haylee Alanis APRN, CNP Primary Care Provider [phone] Encounter Details Date Type Department Care Team Description 01/24/1997 Orders Only Tiffany Sandhu Cnp Social History Tobacco Use Types Packs/Day Years Used Date Smoking Tobacco: Never Assessed Sex Assigned at Date Recorded Not on file documented as of this encounter Plan of Treatment Not on filedocumented as of this encounter Visit Diagnoses Not on filedocumented in this encounter Care Teams Hard Tile Setter Relationship Specialty Start Date End Date Haylee Alanis APRN, CNP PCP - General Nurse Practitioner 02/04/[address] [place] [address] documented as of this encounter
--- OUTSIDE RECORDS SUMMARY | 2021-12-28 14:24 | XMS_ITS | Encounter Summary ---
:1965 Author Organization [facility] Address [address] [place] [address] Care Team Providers Name Role Phone Unavailable Primary Care Provider Unavailable Encounter Details Date Type Department Care Team Description 01/24/1997 Office Visit [place] Lisa, TOBACCO USE DISORDER; Family Practice Tiffany Still APRN, ACUTE URI NOS; [address] [place] [address] VACCINE FOR INFLUENZA [place], [place] [address] [address] [place], [place] [phone] (Wo rk) Social History Tobacco Use Types Packs/Day Years Used Date Smoking Tobacco: Never Assessed Sex Assigned at Date Recorded Not on file documented as of this encounter Progress Notes Tiffany Gonzalez - 01/24/1997 12:00 AM CDTCHIEF COMPLAINT: 31-year-old female with productive cough x two weeks. S: Does not look at her sputum so cannot tell me what the color is. She has had this for the past couple of weeks. Also, is a smoker, smoking 3/4 pack per day for about 14 years. She has had sore throat which has not relented. Finding it difficult to swallow. The pain even wakes her up at night. Sinus congestion, facial congestion. Has had sweats and chills over the past two weeks. Denies documented fevers. Denies face, teeth or ear pain. O: BP 110/70. Temperature 97.5. The tympanic membranes are within normal limits. Pharynx with erythema. No edema or drainage. Nasal turbinates with erythema. Moderate edema. No drainage noted. Bilateral tonsillar nodes slightly enlarged. Lungs are clear to auscultation anterior and posterior. Rapid strep screen is negative. Complains of maxillary discomfort when sinuses are palpated. Complaining of brown nasal drainage. A: Respiratory infection, possible early sinusitis in a smoker. P: Septra DS one p.o. b.i.d. x 14 days. Increased rest, fluids, humidification. Follow up if symptoms persist. Encourage smoking cessation. Flu shot administered. cc: Tiffany Sandhu NP documented in this encounter Plan of Treatment Not on filedocumented as of this encounter Visit Diagnoses Diagnosis Tobacco use disorder ([facility]) Tobacco use disorder Acute upper respiratory infections of un specified site VACCINE FOR INFLUENZA documented in this encounter
--- OUTSIDE RECORDS SUMMARY | 2021-12-28 14:24 | XMS_ITS | Encounter Summary ---
:1965 Author Organization [facility] Address [address] [place] [address] Care Team Providers Name Role Phone Unavailable Primary Care Provider Unavailable Encounter Details Date Type Department Care Team Description 11/07/1997 Office Visit [place] Greg Higgins NONS PECIF SKIN ERUPT Internal Medicine [address] [id number] Social History Tobacco Use Types Packs/Day Years Used Date Smoking Tobacco: Never Assessed Sex Assigned at Date Recorded Not on file documented as of this encounter Progress Notes Greg Higgins - 11/07/1997 12:00 AM CDTS: This 32-year-old with rash on the neck, chest, abdomen and back. She relates it to her work. She describes a circumstance at work where a basement level has sustained water damage and subsequent mold infestation in the sheetrock durand and in the carpeting. On October 11, 1997 the memorandum was given to employees describing the mold problem in the basement and the employers plan to repair the water damage to resolve the mold problem. Apparently the carpeting was replaced but damaged moist sheetrock has not been replaced but this is anticipated for December 1997. The patient suspects that a penicillin-producing fungus in the moldy durand has triggered an allergic reaction for the following reasons: She has noticed a temporal relationship between the rash and time spent in the basement. Two weeks ago she spent eight hours daily in the musty basement and within two days developed erythematous papules at the neck, anterior chest, abdomen and back. This worsened daily and faded somewhat on weekends when she was away from work and worsened during the second week of exposure and improved when she was out of the basement. She was told at work that the mold in the wall was tested and was a penicillin-forming mold but does not have written documentation of this. She does have a known history of penicillin allergy because of treatment for pharyngitis approximately seven years ago with a red rash on the neck and chest after taking the penicillin. She has described an amoxicillin or penicillin allergy since that time. The rash is not quite resolved at this time. She also describes a light sensation of shortness of breath or tightness in the chest which she also relates to the exposure. She has no chest pain and no productive cough. She has no history of childhood asthma. She is not on any medicines. She is allergic to amoxicillin. O: Her blood pressure is 128/74; heart rate is 74; weight is 217 lb. She is in no acute distress and does not appear to have any respiratory distress. The head, eyes, ears, nose, throat exam is normal. Lungs are clear without wheezes or strider. Skin exam reveals a slightly erythematous papules approximately 3 millimeters in diameter over the neck, upper chest and abdomen. She appears to have been scratching at them somewhat and they appear to have fading quality of erythema. No vesicles, no blisters, no drainage or purulent material. No scaling. A: 1) Fading rash temporally related to time spent in the basement at work with known mold, and the mold is thought to be penicillin-producing type. 2) History of penicillin allergy. P: I think the patient makes a reasonable argument that the rash is temporally related to the exposure of the basement at work. I cannot rule out the possibility that her rash is a reaction to mold exposure. It is harder to prove that she is having a penicillin reaction. I suggested two strategies: One would be completely limit her exposure to the basement until the musty smell is gone which would probably require replacement of the sheetrock durand. The alternative strategy is to use an antihistamine to see if she can continue to work there without moving. She preferred to try to work and to take the antihistamine and we agreed that if her symptoms worsen, she would need to come for re-evaluation at which time I would suggest having her avoid the basement altogether and she agreed with this plan and will call with any problems or concerns. cc: documented in this encounter Plan of Treatment Not on filedocumented as of this encounter Visit Diagnoses Diagnosis Rash and other nonspecific skin eruption documented in this encounter
--- OUTSIDE RECORDS SUMMARY | 2021-12-28 14:25 | XMS_ITS | Encounter Summary ---
:1965 Author Organization [facility] Address [address] [place] [address] Care Team Providers Name Role Phone Unavailable Primary Care Provider Unavailable Encounter Details Date Type Department Care Team Description 07/23/1994 Office Visit [facility] Herbert Rocha pharyngitis Practice [address]/[place], [place] [address] [facility], [address] Social History Tobacco Use Types Packs/Day Years Used Date Smoking Tobacco: Never Assessed Sex Assigned at Date Recorded Not on file documented as of this encounter Progress Notes Geneva Rocha - 07/23/1994 12:00 AM CDTS: Stephanie is a 29-year-old white female who has a 18 hour history of a sore throat with some aching and burning on the right side of her throat. She's had no fever, no chills, no dysphagia. She took a Comtrex this morning. She has no other constitutional symptoms. She does have a sister who was recently diagnosed with strep. O: BP 138/82. Temp. 98.4. Pulse 72. TMs show the right tympanic membrane to be dull. The left is glistening. Mouth and throat reveal no exudate. No tonsillar enlargement. No erythema. Neck reveals no nodes and is supple. Rapid strep test is negative. A: Likely viral pharyngitis. P: Liquids, throat lozenges, mild analgesics with Tylenol. Continue antihistamine decongestant for ear congestion. cc: Geneva Rocha M.D. documented in this encounter Plan of Treatment Not on filedocumented as of this encounter Visit Diagnoses Diagnosis Acute pharyngitis documented in this encounter
--- OUTSIDE RECORDS SUMMARY | 2021-12-28 14:25 | XMS_ITS | Encounter Summary ---
:1965 Author Organization [facility] Address [address] [place] [address] Care Team Providers Name Role Phone Unavailable Primary Care Provider Unavailable Encounter Details Date Type Department Care Team Description 01/08/1995 Office Visit [place] Javi Richardson Migraine, unspecified, without mention o f intractable migraine without mention of status migrainosus; Internal Medicine [facility] Polycystic kidney, unspecified type [address] [facility], [address] Social History Tobacco Use Types Packs/Day Years Used Date Smoking Tobacco: Never Assessed Sex Assigned at Date Recorded Not on file documented as of this encounter Progress Notes Javi Richardson - 01/08/1995 12:00 AM CDTS: This is a 29 year old with a history of migraine headaches which occur approximately three times a week. She was followed by a physician outside of [facility] who had treated her with Ibuprofen, but recently had also give her midrin and cafergot to use for the onset of headaches. She claims that the midrin was somewhat helpful but she still required approximately 600 mg of Ibuprofen for relief of her headaches. The Cafergot was not beneficial. She has been on inderal for prophylactic therapy in the past and this had been successful in significantly reducing the number of headaches. However she was uneasy about being on a chronic medication. She has a past medical history of polycystic kidney disease and was worried that the Inderal may be affecting her kidneys. She is interested in some other type of therapy to try to reduce the frequency of her headaches. Today she was asking about the benefit of possibly chiropractor of physical therapy. Her headaches start off with a feeling of fatigue and then a throbbing pain in the occiput region with tension in the occiput and upper neck region. She has some blurriness with these and some nausea. They usually last 1/2-1 hour after she gets rest and takes 800 mg of Ibuprofen. O: Her BP is 110/74. On physical examination her neurological examination is unremarkable w/o any evidence of focal findings. Her fundoscopic examination shows sharp optic discs bilaterally. A: 1. Chronic headaches of a combination migraine and tension modality. P: 1. Given the predominantly tension headache character of her headaches I will recommend her for physical therapy. I will see her back in four weeks to see if this is beneficial in decreasing the frequency of her headaches. If that is not successful then I think at that time we should seriously consider prophylactic therapy again 2. With respect to her polycystic kidney disease she has never had her renal function examined. I will check a UA and a creatinine today. cc: documented in this encounter Plan of Treatment Not on filedocumented as of this encounter Visit Diagnoses Diagnosis Migraine, unspecified, without mention o f intractable migraine without mention of status migrainosus Polycystic kidney, unspecified type documented in this encounter
== END 2021-12-28 14:14 | disposition home or self-care (01) ==
LOC: ED 14:03
PROVIDERS: Emergency Provider Emergency Medicine Emergency Medical Services; PCP Physician Assistant Medical
DX: H57.11 Ocular pain, right eye (principal)
CPT/HCPCS: 99282; 99283

== ENCOUNTER 2023-07-28 19:20 | Outpatient (CLI) | payer BC, SELFPAY ==
--- OUTSIDE RECORDS SUMMARY | 2023-07-28 19:23 | XMS_ITS | Clinical Summary ---
Author Name Unknown Organization [facility] [employer] [facility] Address [place], [place] [address] Care Team Providers Care Cover Making Machine Operator Name Role Phone Zoe Al DO Primary Care Provider [phone] Allergies Active Allergy Reactions Criticality Noted Date Comments Neomycin Rash High 12/11/2016 Penicillins Hives,Rash High 03/05/2008 Medications Medication Sig Dispensed Refills Start Date End Date Status aspirin chewable (CHILDRENS ASPIRIN) 81 mg chewable tablet Take 1 tablet by mouth once daily with a meal. 90 tablet 3 11/09/2018 Active sevelamer carbonate (RENVELA) 800 mg tab tablet Take 1 Tablet by mouth 3 times daily with meals. 0 06/24/2020 Active [place] Caps 1 mg capsule 08/30/2020 Active CPAPIndications:TREMAINE on CPAP CPAP machine for home use at pressure: 4-15 cmw , Heated humidifier x 1 q 5 yr, Humidifier chamber x 1 q 6 mo, Full face mask x1 q 3mos, with cushion x 1 q mo, Heated tubing x 1 q 3 mo, Headgear x 1 q 6 mo, Filters: Disposable x 2 q mo non-disposable filters x1 q 6mo, Length of Need: 99 months, Frequency of use: Daily 1 Device 11 10/01/2020 Active Esomeprazole Magnesium 40 mg grps Take 20 mg by mouth. Active sennosides-docusate (SENOKOT S) (8.6-50 mg) tabletIndications:Pe ritoneal dialysis catheter dysfunction, subsequent encounter (HC) Take 1 Tablet by mouth 2 times daily if needed for Constipation. 20 Tablet 03/11/2021 Active acetaminophen (TYLENOL) 325 mg tabletIndications:Pe ritoneal dialysis catheter dysfunction, subsequent encounter (HC) Take 2 Tablets (650 mg) by mouth every 6 hours. Max acetaminophen dose: 4000mg in 24 hrs. 30 Tablet 03/11/2021 Active torsemide (DEMADEX) 20 mg tabletIndications:ES RD (end stage renal disease) (HC) Take 2 Tablets (40 mg) by mouth once daily. 180 Tablet 3 08/21/2021 Active Additional Information Patient taking differently:40 mg OralBID, Reported on 11/30/2022 carvediloL (COREG) 12.5 mg tabletIndications:Es sential hypertension Take 1 Tablet (12.5 mg) by mouth 2 times daily. 180 Tablet 3 08/21/2021 Active Additional Information Patient taking differently: 6.25 mgOralDAILY, Reported on 11/30/2022 lidocaine-prilocaine (EMLA) 2.5-2.5 % cream APPLY SMALL AMOUNT TO ACCESS SITE (AVF) 1 TO 2 HOURS BEFORE DIALYSIS. COVER WITH OCCLUSIVE DRESSING (SARAN WRAP) 08/26/2021 Active pramipexole (MIRAPEX) 0.25 mg tabletIndications:En d stage renal disease (HC) TAKE 1 TABLET BY MOUTH EVERYDAY AT BEDTIME 90 Tablet 3 02/09/2022 Active traZODone (DESYREL) 50 mg tabletIndications:In somnia, unspecified type Take 1 Tablet (50 mg) by mouth at bedtime if needed for Sleep. 90 Tablet 3 09/03/2022 Active citalopram (CELEXA) 20 mg tabletIndications:Dy sthymia Take 1 Tablet (20 mg) by mouth at bedtime. 90 Tablet 3 09/03/2022 Active atorvastatin (LIPITOR) 40 mg tabletIndications:Hy perlipidemia, unspecified hyperlipidemia type Take 1 Tablet (40 mg) by mouth once daily. 90 Tablet 3 09/03/2022 Active buPROPion (WELLBUTRIN XL) 150 mg Extended-Release tabletIndications:Dy sthymia,Tobacco use Take 1 Tablet (150 mg) by mouth every morning. 90 Tablet 3 09/03/2022 Active varenicline (Chantix) 0.5 mg tabletIndications:To bacco use Take 1 Tablet (0.5 mg) by mouth once daily with a meal. 90 Tablet 1 09/04/2022 Active Lactobacillus acidophilus (Probiotic) 10 billion cell cap Take by mouth. Acti ve loratadine (CLARITIN) 10 mg tablet Take 10 mg by mouth once daily. Active Active Problems Problem Noted Date Diagnosed Date Pre-transplant evaluation fo r ESRD (end stage renal disease) 03/31/2021 Polycystic liver 03/31/2019 Peritoneal dialysis catheter dysfunction Mar03/31/2019 TREMAINE 04/04/2020 HST AHI-45 03/30/2019 Tobacco abuse 03/30/2019 Hyperlipidemia 03/29/2019 Uremia 03/01/2019 ESRD (end stage renal disease) due to PCKD 02/22 Overview: Started on peritoneal dialysis Feb 2019. Catheter malfunction Mar 2019 so started on hemodialysis 03/30/19 Anemia in end-stage renal disease 02/22/2019 Routine adult health maintenance 08/29/2018 Overview: Colonoscopy 08/2018 diverticulosis, repeat in 5 years, Pediatrics scope Essential hypertension 07/13/2018 Secondary renal hyperparathyroidism 07/13/2018 Acalculous cholecystitis 07/04/2014 Polycystic kidney disease 08/23/2013 Asthma 03/02/2013 Resolved Problems Problem Noted Date Diagnosed Date Resolved Date CKD (chronic kidney disease) stage 5, GFR less than 15 ml/min 07/13/2018 02/22/2019 Metabolic acidosis 07/13/2018 9 Anemia in stage 4 chronic kidney disease 07/13/2018 02/22/2019 Encounters Date Type Department Care Team Description 06/29/2023 4:00 PM CDT Ancillary Procedure [facility] [address] [place] [address] 06/29/2023 Travel 05/17/2023 Telephone [facility]ney Transplant Providers [address] [address] Mariam Vogel RN Transplant Eval (updates to ) from Last 3 Months Immunizations Name Administration Dates Next Due AMB Influenza, IIV4 PF (=>6 mos Flulaval,Fluzone Fluarix)(Flu Clinic Only) 01/23/2017 COVID-19 vaccine (Moderna 100mcg/0.5mL) PF, MDV 02/28/2021,06/10/2020,05/17/2020 COVID-19 vaccine (Cute AttackBio NTech 30mcg/0.3mL) 12YO+ BIVALENT PF, MDV 01/26/2022 COVID-19 vaccine (MedAvail-Bio NTech 30mcg/0.3mL) 12YO+ WANDY-SUCROSE PF, MDV 09/16/2021 Hepatitis B (Adult) 08/23/2019, 0,03/25/2019,2018 Influenza A (H1N1), Inactivated 05/14/2009 Influenza Virus, Unspecified 01/23/2022, 01/24/2020,03/14/2012,2010,01/28/2010,01/01/2009,03/08/2008,1 04/20/2005,04/15/2004,01/24/1997 Influenza, IIV3 (Age >=3 years) 03/14/20 12,01/27/2011,01/28/2010,2008,03/08/2008,02/18/2006,04/15/2004 Influenza, IIV4 01/31/2021, 0,04/02/2018,2016,02/04/2016,12/21/2013 Pneumococcal Poly,23-Valent (Pneumovax) 02/04/2016 Pneumococcal conj 13-Valent (Prevnar 13) 08/21/2020 TD, UNSPECIFIED 2006 Td (Age >=7 Years) 2006 Td, Preservative Free (age > = 7 Years) 2006 Tdap 11/28/2020,05/18/2011 Tuberculin (PPD) 02/22/2019 Family History Medical History Relation Name Comments Cancer-breast Father Hypertension Father Other Father polycystic kidn ey disease Cancer-breast Mother Anesthesia Malignant Hyperthermia No Family History Blood Disease No Family History Relation Name Status Comments Father Mother Social History Tobacco Use Types Packs/Day Years Used Date Smoking Tobacco: Every Day Cigarettes 0.5 30 Smokeless Tobacco: Never Tobacco Cessation:Ready to Q uit: Not Asked; Counseling Given: Not Answered Alcohol Use Standard Drinks/Week Comments Yes 0 (1 standard drink = 0.6 oz pur e alcohol) rarely PHQ-2 Answer Date Recorded PHQ-2 TOTAL SCORE 0 09/03/2022 Social Connections Answer Date Recorded Frequency of Communication with Friends and Fami ly Not on file 04/16/2021 Financial Resource Strain Answer Date R ecorded Difficulty of Paying Living Expenses Not on file 04/16/2021 Difficulty of Paying Living Expenses Not on file 04/16/2021 Sex and Gender Information Value Date Recorded Sex Assigned at Female 06/24/2020 10:04 AM DENTAL LABORATORY MANAGER Gender Identity Female 06/24/2020 10:04 AM DENTAL LABORATORY MANAGER Sexual Orientation Not on file Obstetrics History Last Filed Vital Signs Vital Sign Reading Time Taken Comments Blood Pressure 108/61 11/30/2022 12:30 PM CDT Pulse 71 11/30/2022 12:30 PM CDT Temperature 36.6 ??C (97.9 ??F) 11/30/2022 12:30 PM C DT Respiratory Rate 18 11/30/2022 12:30 PM CDT Oxygen Saturation 95% 11/30/2022 12:30 PM CDT Inhaled Oxygen Concentration - - Weight 98.4 kg (217 lb) 11/30/2022 12:30 PM CDT Height 168.2 cm (5' 6.22) 09/03/2022 3:45 PM CD T Body Mass Index 34.79 09/03/2022 3:45 PM CDT Plan of Treatment Health Maintenance Due Date Last Done Comments Zoster (shingles) series for age 50+ (1 of 2) 2014 Pneumococcal series for age 6-64 (3 of 3 - PPSV23 or PCV20) 02/03/2021 08/21/2020, 02/04/2016 COVID-19 vaccine series ( season) 2022 01/26/2022, 09/16/2021, 02/28/2021, Additional history exists BMI (ht and wt on same day) for age 18+ 09/04/2023 09/03/2022, 12/08/2021, 09/16/2021, Additional history exists Depression screening for age 12+ 09/04/2023 09/03/2022, 09/16/2021, 10/11/2020, Additional history exists Influenza for age 50-64 12/19/2023 01/24/20, 01/31/2021, 01/24/2020, Additional history exists Mammogram for age 45-75 06/28/2024 06/29/19 24, 12/26/2021, 11/20/2020, Additional history exists Pap test for age 21-65 11/28/2025 , 11/28/2020, 08/16/2018, Additional history exists Lipids for age 45-75 09/04/2027 09/03/2022, 11/28/2020, 08/16/2018, Additional history exists Colonoscopy through age 75 08/29/202808/29, 08/29/2018, 08/29/2018, Additional history exists Tetanus booster 11/28/2030 11/28/2020, 04/21, 2006, Additional history exists HIV for age 15-65 Completed 10/18/2020 Hepatitis C screening for ag e 18-79 Completed 10/18/2020 Tdap Completed 11/28/2020, 05/18/2011 Procedures Procedure Name Priority Date/Time Associated Diagnosis Comments XR MAMMO MIKAYLA BILAT SCREEN Routine 06/29/2023 4:10 PM CDT Encounter for screening mammogram for malignant neoplasm of breast LIPID PANEL W REFLEX MEASURED LDL Routine 09/03/2022 4:25 PM CDT Hyperlipidemia, unspecified hyperlipidemia type PARAMEDIC INSTRUCTOR THIN PREP PAP SCREEN IMAGED Routine 11/28/2020 3:53 PM CDT Screening for malignant neoplasm of cervix ANTI HIV 1/2 Today 10/18/2020 12:12 PM CDT Pre-transplant evaluation for ESRD (end stage renal disease) ANTI HCV Today 10/18/2020 12:12 PM CDT Pre-transplant evaluation for ESRD (end stage renal disease) COLONOSCOPY SCREENING Routine 08/29/2018 12:00 PM CDT Screening for colon cancer from Last 3 Months or Most Recently Relevant to Health Maintenance Results * XR MAMMO MIKAYLA BILAT SCREEN (06/29/2023 4:10 PM CDT) Anatomical Region Laterality Modality BREASTS, Breast Left, Breast Right Bilateral Mammography Impressions 06/29/2023 4:29 PM CDT ??There is no radiographic evidence for malignancy. ??Recommend annual mammograms. MAMMOGRAM ASSESSMENT: ??ACR 1 Negative PATIENTS: You will also receive a letter with your examination results in an easy to read format. ??If you have questions about your results, please contact your referring provider. Narrative 06/29/2023 4:29 PM CDT For Patients: As a result of the Century Cures Act, medical imaging exams and procedure reports are released immediately into your electronic medical record. You may view this report before your referring provider. If you have questions, please contact your health care provider. XR MAMMO MIKAYLA BILAT SCREEN [[id number]] CLINICAL HISTORY: ??This is an asymptomatic 58 y.o. patient. INDICATION FOR EXAM: Mammogram Screening. TECHNIQUE: CC & MLO views were obtained. ??This study was evaluated with the assistance of Computer-Aided Detection. Breast Tomosynthesis was used in interpretation. COMPARISON FILM: Yes 12/26/21 [employer] 11/20/20 [facility] FINDINGS: ??The breasts have scattered areas of fibroglandular density. There are no dominant masses, suspicious micro calcifications or areas of architectural distortion. Zoe Anny Servanod DO MAMMO * (ABNORMAL) LIPID PANEL W REFLEX MEASURED LDL (09/03/2022 4:25 PM CDT) CHOLESTEROL,TOTAL 138 100 - 199 mg/dL 09/04/2022 2:13 PM CDT [facility] Comment: Cholesterol, Total Reference Ranges Desirable <200 mg/dL Borderline 200-239 mg/dL High >=240 mg/dL TRIGLYCERIDES 167(H) <150 mg/dL 09/04/2022 2:13 PM CDT [facility] HDL CHOLESTEROL 50 >40 mg/dL 3 2:13 PM CDT [facility] NON-HDL CHOLESTEROL 88 <145 mg/dl 09/04/2022 2:13 PM CDT [facility] CHOL/HDL RATIO 2.76 <4.50 09/04/2022 2:13 PM CDT [facility] LDL CHOLESTEROL 55 <=130 mg/dL 09/04/2022 2:13 PM CDT [facility] VLDL CHOLESTEROL 33(H) <=30 mg/dL 09/04/2022 2:13 PM CDT [facility] TRA LABORATORY PROVIDER ORDERED STATUS RANDOM 09/04/2022 2:13 PM CDT [facility] Blood BLOOD SPECIMEN / Unknown Venipuncture / Unknown 09/03/2022 4:25 PM CDT 09/03/2022 4:28 PM CDT Veronika OVALLES CHEMISTRY [facility] [address] [place] [address], * PARAMEDIC INSTRUCTOR THIN PREP PAP SCREEN IMAGED (11/28/2020 3:53 PM CDT) Case Report Gynecologic Cytology Report ? Case: [id number] ? Authorizing Provider: ??Veronika Pugh PA ?Collected: ? 11/28/2020 1553 ? Ordering Location: ? [facility] ?? Received: ?11/28/2020 1632 ? Clinic ? First Screen: ?Baccam, Minie ? Specimen: ?PARAMEDIC INSTRUCTOR ThinPrep Vial Screening, Cervical ? 12/12/2020 12:44 PM CDT [facility] INTERPRETATION/ RESULT NEGATIVE FOR INTRAEPITHELIAL LESION OR MALIGNANCY (NIL) (none) 12/12/2020 12:44 PM CDT [facility] IMEN ADEQUACY Satisfactory for evaluation No endocervical component seen 12/12/2020 12:44 PM CDT [facility] HPV REQUEST HPV and PAP 12/12/2020 12:44 PM CDT [facility] Date of LMP unknown 12/12/2020 12:44 PM CDT [facility] Last Pap Date 08/16/18 12/12/2020 12:44 PM CDT [facility] Last Pap Result NIL 12:44 PM CDT [facility] Abnormal Pap or [place] Bx in last 5 years No 12/12/2020 12:44 PM CDT [facility] Menstrual Status Postmenopausal 12/12/2020 12:44 PM CDT [facility] [place] Bx Done Today No 12/12/2020 12:44 PM CDT [facility] Additional Information None given 12/12/2020 12:44 PM CDT [facility] Comment: Cytology is screened at [facility], Central Laboratory - [address] [address] [place] [address] and [facility] Laboratory - [address] [place] [address] and [facility] - [address] [place] [address] Interpreted at [facility] Central Laboratory - [address], [place] [address] Automated Review Successful 12/12/2020 12:44 PM CDT [facility] Comment:Specimen processed s uccessfully by automated sample box maker device, ThinPrep Imaging System, [employer] ANCILLARY TESTING PARAMEDIC INSTRUCTOR HPV Ordered, Please see separate report 12/12/2020 12:44 PM CDT [facility] Note The pap test is a screening technique, not a diagnostic procedure. It is used primarily to screen for squamous cancers and precursor lesions. Published studies have shown that it is subject to both false negative and false positive results. The pap test should not be used as the sole means to diagnose or exclude pre-malignant and malignant lesions. 12/12/2020 12:44 PM CDT [facility] Other (Cervical) Non-Blood / Unknown 11/28/2020 3:53 PM CDT 11/28/2020 4:32 PM CDT Veronika OVALLES PATHOLOGY/CYTOLOGY [facility] [address] [place] [address], [place] * ANTI HCV (10/18/2020 12:12 PM CDT) Pathologist [facility] HEPATITIS C ANTIBODY Non-React clyde Non-React clyde 10/18/2020 1:18 PM CDT [facility] Comment:Antibodies to HCV no t detected; does not exclude the possibility of exposure to HCV. Blood BLOOD SPECIMEN / Unknown Butterfly / Unknown 10/18/2020 12:12 PM CDT 10/18/2020 12:29 PM CDT Shar Dias MD [facility] [address] [place] [address], [place] * ANTI HIV 1/2 (10/18/2020 12:12 PM CDT) HIV-1/HIV-2 ANTIBODY Non-Reacti ve Non-Reacti ve 10/18/2020 1:19 PM CDT [facility] Comment:HIV-1 p24 and HIV-1/ HIV-2 Ab not detected. Blood BLOOD SPECIMEN / Unknown Butterfly / Unknown 10/18/2020 12:12 PM CDT 10/18/2020 12:29 PM CDT Shar Dias MD SEND OUTS [facility] [address] [place] [address], * COLONOSCOPY SCREENING (08/29/2018 12:00 PM CDT) Veronika OVALLES GI PROCEDURE ORD from Last 3 Months or Most Recently Relevant to Health Maintenance Advance Directives * Full Code (Latest Code Status on File) Date Activated Date Inactivated Comments 03/11/2021 5:59 AM 03/11/2021 1:06 PM Question Answer Comments Code Status Discussion: Reviewed Preferences * Full Code Date Activated Date Inactivated Comments 03/29/2019 10:31 PM 03/31/2019 6:39 PM Care Teams Cover Making Machine Operator Relationship Specialty Start Date End Date Zoe Al DO [address] [place] [id number] PCP - General Family Practice 06/29/23
--- OUTSIDE RECORDS SUMMARY | 2023-07-28 19:24 | XMS_ITS | Encounter Summary ---
Author Name Unknown Organization [facility] Address [address] [place] [address] Care Team Providers Care Director Cardiovascular Name Role Phone Unavailable Primary Care Provider Unavailabl e Encounter Details Date Type Department Care Team Description 06/14/2023 Treatment [facility] [place] [address] [place] [address] López Mariano MD [address] [place] [phone] Social History Tobacco Use Types Packs/Day Years Used Date Smoking Tobacco: Never Assessed Sex and Gender Information Value Date Recorded Sex Assigned at Not on file Gender Identity Not on file Sexual Orientation Not on file documented as of this encounter Miscellaneous Notes * Dialysis Note - López Mariano MD - 06/14/2023 12:57 PM CST Date: Jun 14, 2023 Patient Name: Stephanie Norman : 1965 Chart #: [id number] Sex: F This patient was personally seen for a complete visit as part of routine monthly dialysis care. A review of the dialysis treatment, blood pressure, estimated dry weight and recent lab values was made. These were discussed with the patient and staff as necessary. Treatment Data for 06/14/2023 started at:11:37 AM Dialyzer: 180NRe Optiflux Na: 137 mEq/L Bicarb: 25 mEq/L Dialysate: 2.0 K, 2.5 Ca, 1.0 Mg, 100 Dextrose (G2251) Dialysate/Machine Temp (prescribed): 37 C Dialysate/Machine Temp (actual): 37.2 C BFR (prescribed): 450 BFR (actual): 450 Prescribed time: 03:30 EDW: 95 kg Access Type: Active (In Use):AVFistula-Standard/Left Upper Arm Pre Dialysis Vitals (for 06/14/2023 11:25 AM ) Pre BP (sit): 134/35 Pre Wt: 98.5 kg Temp: 97.1 F Post Dialysis Vitals (for 06/11/2023 3:17 PM ) Post BP (sit): 106/58 Post Wt: 95.1 kg Current Dialysis Vitals (for 06/14/2023 12:31 PM ) BP (sit): 109/62 AP(-) / BULBS FARMWORKER: 180/170 Pulse: 62 Chairside data as of 06/14/2023 12:31 PM Last 3 Treatments 06/11/2023 06/09/2023 06/07/2023 EDW (kg) 95 95.3 95.3 Weight Pre (kg) 97.7 97.4 98.4 Weight Post (kg) 95.1 94.6 94.9 Dialytic Weight Loss (kg) -2.6 -2.8 -3.5 EDW Deviation (kg) 0.1 -0.7 -0.4 BP Sit Pre 115/56 115/63 124/60 BP Sit Post 106/58 103/53 100/57 UF Rate (mL/kg/hr) 8 8 10 Prescribed BFR 450 450 450 Average Delivered BFR 450 450 450 Prescribed Treatment Time 03:30 03:30 03:30 Actual Treatment Time 03:31 03:31 03:32 Last 3 Values 05/24/2023 05/07/2023 03/22/2023 Access Flow > 2000 > 2000 > 2000 Treatment Medication Orders Medication Sig Start Date End Date Heparin Sodium (Porcine) 1,000 Units/mL Systemic 2000 units IVP Every Treatment 01/25/2023 01/24/2024 Heparin Sodium (Porcine) 1,000 Units/mL Systemic 4000 units IVP Every Treatment 01/25/2023 01/24/2024 Vitamin D (Calcitriol) Oral 0.5 mcg ORAL Every Treatment During Dialysis 05/31/2023 05/29/2024 ENVIRONMENTAL FIELD OFFICE MANAGER: López Mariano MD LOCATION: [facility] [phone] SCHEDULE: -- 2nd Shift EDW: kg. DIALYZER: HD DURATION: NEEDLE SIZE: ANTICOAG: BATH: QB: ml/min QD: ml/min Subjective No new complaints. Stephanie is doing great. She is likely getting a promotion at work. She feels overall excellent. Her labs are great. She will reach EDW today and her BP is controlled. Advanced Practitioner Subjective CHIP LOFT WORKER 05/21/2023: Spoke with patient at chairside. Feeling good. Offers no new concerns. Denies SOB, chest pain, cramping or dizziness. BP stable. AVF working well; no reported issues from staff. A littleabove EDW due to shorten run on Wednesday. Continue plan of care. No changes today. Review of Systems None reported. Problem List [...] No leg edema. Access - AVF without aneurysms Medication List Medication Sig Start Date aspirin 81 mg tablet,chewable Take 1 tablet by mouth once a day carvedilol 12.5 mg tablet Take 1/2 tablet by mouth twice a day citalopram 40 mg tablet Take 1 tablet by mouth once a day as directed. Celexa - Take in the evening. lidocaine-prilocaine 2.5-2.5% cream Apply as directed to skin three times a week. apply a THIN layer to dialysis access 1/2-1 hr prior to dialysis and cover with saran karolynap Lipitor (atorvastatin) 40 mg tablet Take 1 tablet by mouth every evening loratadine 10 mg tablet Take 1 tablet by mouth once a day Nexium (esomeprazole magnesium) 20 mg capsule,delayed release(DR/EC) Take 1 capsule by mouth once aday. for reflux pramipexole 0.25 mg tablet Take 1 tablet by mouth twice a day. At bedtime and before dialysis 04/22/2022 Saida-Millie (b complex-vitamin c-folic acid) 0.8 mg tablet Take 1 tablet by mouth once a day Renvela (sevelamer carbonate) 800 mg tablet Take 4 tablet by mouth three times a day with meals torsemide 20 mg tablet Take 4 tablet by mouth once a day. Take 80 mg once a day. 02/02/2022 trazodone 50 mg tablet Take 1 tablet by mouth at bedtime as needed Allergy List Allergen Reaction Reaction Severity Onset Date Mircera C/O Being Hot Mircera Unknown neomycin Skin rash PENICILLINS Skin rash Medications reviewed and no changes were made. Treatment and Adequacy Assessment BUN mg/dL 53 (05/26/23) 62 (04/21/23) 59 (03/24/23) 41 (02/17/23) 54 (01/25/23) UREA NITROGEN (MG/DL) IN SER/PLAS - POST DIALYSIS mg/dL 14 (05/26/23) 15 (04/21/23) 13 (03/24/23) 9 (02/17/23) 12 (01/25/23) URR % 74 (05/26/23) 76 (04/21/23) 78 (03/24/23) 78 (02/17/23) 78 (01/25/23) spKt/V Gotch 1.63 (05/26/23) 1.77 (04/21/23) 1.78 (03/24/23) 1.81 (02/17/23) 1.84 (01/25/23) eKdrt/V 1.38 (05/26/23) 1.5 (04/21/23) 1.51 (03/24/23) 1.53 (02/17/23) 1.55 (01/25/23) spKt/V (Daugirdas II) 1.5400 (05/26/23) 1.6800 (04/21/23) 1.7300 (03/24/23) 1.7500 (02/17/23) 1.7700 (01/25/23) Dialysis is adequate. Achieves prescribed time - Yes Achieves prescribed frequency - Yes Continue current prescription. Vascular Access Assessment Type of access: Fistula Send for fistulagram. 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 Working well now was of 02/2021 Anemia Assessment HEMOGLOBIN (G/DL) IN BLOOD g/dL 12.5 (06/09/23) 11.8 (06/02/23) 11.9 (05/26/23) 12.5 (05/19/23) 12.3 (05/12/23) PLATELETS 1000/mcL 201 (05/26/23) 220 (04/21/23) 211 (03/24/23) 190 (02/17/23) 227 (01/20/23) FERRITIN ng/mL 984 (05/26/23) 1269 (02/17/23) 1631 (01/20/23) 1134 (10/21/22) 1087 (07/22/22) TRANSFERRIN SAT% % 24 (05/26/23) 21 (04/21/23) 28 (03/24/23) 29 (02/17/23) 29 (01/20/23) Hemoglobin is above goal. Iron Saturation is at goal. Ferritin is at goal. No FABIO therapy with Hgb >11 Nutritional and Metabolic Assessment ALBUMIN (G/DL) g/dL 4.2 (05/26/23) 4.1 (04/21/23) 4.5 (03/24/23) 4.3 (02/17/23) 4.2 (01/20/23) Sodium mEq/L 134 (05/26/23) 130 (04/21/23) 134 (03/24/23) 136 (02/17/23) 136 (01/20/23) POTASSIUM (MMOL/L) IN SER/PLAS mEq/L 5.3 (05/26/23) 5.4 (04/23/23) 4.7 (02/17/23) 4.9 (01/20/23) 4.6 (12/23/22) BICARBONATE (CO2) mEq/L 22 (05/26/23) 21 (04/21/23) 20 (03/24/23) 26 (02/17/23) 23 (01/20/23) 25 OH VITAMIN D ng/mL 16.4 (02/17/23) 23.3 (10/21/22) Albumin is at goal. Encourage high-biological value protein intake. Potassium is at goal. Encourage low potassium diet. Bicarbonate is at goal. Continue same bicarbonate in dialysate. Bone and Mineral Metabolism Assessment CALCIUM mg/dL 9.5 (05/26/23) 9.3 (04/21/23) 9.1 (03/24/23) 9.4 (02/17/23) 9.2 (01/20/23) CALCIUM (MG/DL) CORRECTED FOR ALBUMIN IN SER/PLAS mg/dL 9.3 (05/26/23) 9.2 (04/21/23) 8.7 (03/24/23) 9.2 (02/17/23) 9.0 (01/20/23) PHOSPHATE (MG/DL) IN SER/PLAS mg/dL 5.0 (05/26/23) 3.8 (04/21/23) 5.2 (03/24/23) 3.6 (02/17/23) 3.8 (01/20/23) CALCIUM PHOSPHORUS PRODUCT, COR 47 (05/26/23) 35 (04/21/23) 45 (03/24/23) 33 (02/17/23) 34 (01/20/23) IPTH pg/mL 143 (05/26/23) 216 (02/17/23) 233 (01/20/23) 270 (10/21/22) 273 (07/22/22) Corrected Calcium is at goal. Phosphorous is at goal. Intact PTH is at goal. Information Delivery Analyst will adjust binders and vitamin D per protocol and continue to provide dietary education. Cardiovascular Assessment Blood pressures reviewed and are acceptable. Intradialytic weight gains are appropriate. Estimated dry weight is appropriate. Improved IDWG's Transplant Status: Patient is on transplant list. [facility] - [place] Listed for Transplant at [place] as of Apr 2021 Possible living donors x2 possibly after she attended a graduation libertarian and two people expressed interest! Resuscitation Status Stable dialysis, no change in prescription López Mariano MD [ Signed And locked electronically On 06/14/2023 at 12:58:41 PM ] Transcribed: López Mariano ( 06/14/2023 ) documented in this encounter Plan of Treatment Not on file documented as of this encounter Visit Diagnoses Not on filedocumented in this encounter
--- OUTSIDE RECORDS SUMMARY | 2023-07-28 19:24 | XMS_ITS | Clinical Summary ---
Author Name Unknown Organization [facility] Facility Address [address] [facility] [address] [place] [address] Care Team Providers Care Social Worker Psychiatric Name Role Phone Unavailable Primary Care Provider Unavailabl e Encounters Date Type Department Care Team Description 07/28/2023 Treatment [facility] [address] [place] [address] Viji Chavez, PERSONAL CARE AIDE-SPIRAL SPRING WINDER 07/21/2023 Orders Only [facility] [address] [facility] [address] [place] [address] López Mariano MD 07/20/2023 Telephone [facility] [address] [facility] [address] [place] [address] Joana Rudolph RN 07/14/2023 Orders Only [facility] [address] [facility] [address] [place] [address] López Mariano MD 07/12/2023 Treatment [facility] [address] [place] [address] López Mariano MD 07/07/2023 Orders Only [facility] [address] [place] [address] López Mariano MD 07/02/2023 Treatment [facility] [address] [place] [address] Viji Chavez, PERSONAL CARE AIDE-SPIRAL SPRING WINDER 06/30/2023 Orders Only [facility] [address] [place] [address] López Mariano MD 06/23/2023 Orders Only [facility] [address] [place] [address] López Mariano MD 06/16/2023 Orders Only [facility] [address] [place] [address] López Mariano MD 06/14/2023 Treatment [facility] [address] [facility] [address] [place] [address] López Mariano MD 06/09/2023 Orders Only [facility] [address] [place] [address] López Mariano MD 06/02/2023 Orders Only [facility] [address] [place] [address] López Mariano MD 05/26/2023 Orders Only [facility] [address] [place] [address] López Mariano MD 05/21/2023 Treatment [facility] [address] [facility] [address] [place] [address] Viji Chavez, PERSONAL CARE AIDE-SPIRAL SPRING WINDER 05/19/2023 Orders Only [facility] [address] [place] [address] López Mariano MD 05/12/2023 Orders Only [facility] [address] [place] [address] López Mariano MD 05/10/2023 Treatment [facility] [place] [address] [place] [address] López Mariano MD 05/05/2023 Orders Only [facility] [place] [address] [facility] [phone] López Mariano MD 04/28/2023 Orders Only [facility] [place] [address] [place] [phone] López Mariano MD from Last 3 Months Social History Tobacco Use Types Packs/Day Years Used Date Smoking Tobacco: Never Assessed Sex and Gender Information Value Date Recorded Sex Assigned at Not on file Gender Identity Not on file Sexual Orientation Not on file Plan of Treatment Health Maintenance Due Date Last Done Comments Breast Cancer Screening 1965 Hepatitis B Vaccine (1 of 5 - Risk Dialysis 4-dose series) 1984 08/23/2019, 04/25/2019, 03/25/2019, Additional history exists Colorectal Cancer Screening: Annual FOBT 2013 Colorectal Cancer Screening: Colonoscopy 2013 Colorectal Cancer Screening: Sigmoidoscopy 2013 Pneumococcal Vaccine: Pediat rics (0 to 5 Years) and At-Risk Patients (6 to 64 Years) (2 of 2 - PPSV23 or PCV20) 10/16/2020 08/21/2020 Influenza Vaccine (Season Ended) 2023 02/01/20 21 Procedures Procedure Name Priority Date/Time Associated Diagnosis Comments [facility] LAB RESULTS Routine 07/21/2023 HEMATOLOGY Routine 07/21/2023 HD KINETICS Routine 07/21/2023 POST CHEMISTRY Routine 07/21/2023 CHEMISTRY Routine 07/21/2023 CHEMISTRY Routine 07/21/2023 HEMATOLOGY Routine 07/14/2023 HEMATOLOGY Routine 07/07/2023 HEMATOLOGY Routine 06/30/2023 [facility]RA [facility] LAB RESULTS Routine 06/23/2023 HD KINETICS Routine 06/23/2023 POST CHEMISTRY Routine 06/23/2023 HEMATOLOGY Routine 06/23/2023 CHEMISTRY Routine 06/23/2023 CHEMISTRY Routine 06/23/2023 HEMATOLOGY Routine 06/16/2023 HEMATOLOGY Routine 06/09/2023 HEMATOLOGY Routine 06/02/2023 SPECTRA [facility] LAB RESULTS Routine 05/26/2023 HD KINETICS Routine 05/26/2023 POST CHEMISTRY Routine 05/26/2023 CHEMISTRY Routine 05/26/2023 HEMATOLOGY Routine 05/26/2023 CHEMISTRY Routine 05/26/2023 HEMATOLOGY Routine 05/19/2023 HEMATOLOGY Routine 05/12/2023 HEMATOLOGY Routine 05/05/2023 HEMATOLOGY Routine 04/28/2023 from Last 3 Months Results * HD KINETICS (07/21/2023) Only the most recent of3 resultswithin the time period is included. % Urea Reduction 77 65 - 80 % [facility] 07/21/2023 07/22/2023 5:3 9 AM CDT Narrative Resulting Agency Comment Specimen source: Plasma López Mariano MD LAB BLOOD ORDERABLES Performing Organization Address City/[facility]/ZIP Co de Phone Number [facility] See order comments or contact performing lab Unknown, [place] * POST CHEMISTRY (07/21/2023) Only the most recent of3 resultswithin the time period is included. Pathologist [facility] BUN Post Dialysis 14 6 - 19 mg/dL [facility] 07/21/2023 07/22/2023 5:3 9 AM CDT Narrative [facility] - 07/22/2023 Unless otherwise specified, test(s) performed at: [facility], [address] [place] [address], [place] [address] BILLING CUSTOMER SERVICE REPRESENTATIVE: John Hernandez M.D., Ph.D For any questions, please call customer service at FREQUENCY:MONTHLY Resulting Agency Comment Specimen source: Plasma López Mariano MD LAB BLOOD ORDERABLES Performing Organization Address [facility] [[email or web address]] Co de Phone Number [facility] See order comments or contact performing lab Unknown, [place] * (ABNORMAL) HEMATOLOGY (07/21/2023) Only the most recent of13 resultswithin the time period is included. [facility] Neutrophils 80.0(H) 40.0 - 75.0 % [facility] Lymphocytes Relative 11.4(L) 19.0 - 48.0 % [facility] Monocytes 4.3 3.0 - 10.0 % [facility] Eosinophils Relative 2.2 0.0 - 7.0 % [facility] Basophils Relative 1.0 0.0 - 1.5 % [facility] JESSICA 1.1 0.0 - 4.0 % [facility] WBC 9.19 4.80 - 10.80 1000/mcL [facility] RBC 3.60(L) 4.20 - 5.40 mill/mcL [facility] Hematocrit 36.9(L) 37.0 - 47.0 % [facility] MCV 103(H) 80 - 100 fl [facility] MCH 33.9(H) 27.0 - 31.0 pg [facility] MCHC 33.0 30.0 - 36.0 g/dL [facility] RDW 13.3 11.5 - 14.5 % [facility] Hemoglobin 12.2 12.0 - 16.0 g/dL [facility] Hemoglobin x 3 36.6 36.0 - 48.0 % [facility] Platelets 219 130 - 400 1000/mcL [facility] 07/21/2023 07/22/2023 12: 49 PM CDT Narrative [facility] - 07/22/2023 Unless otherwise specified, test(s) performed at: [facility], [address] [place] [address], [place] [address] BILLING CUSTOMER SERVICE REPRESENTATIVE: John Hernandez M.D., Ph.D For any questions, please call customer service at FREQUENCY:MONTHLY Resulting Agency Comment Specimen source: Blood López Mariano MD LAB BLOOD ORDERABLES [facility] See order comments or contact performing lab Unknown, [place] * (ABNORMAL) [facility] Chemistry (07/21/2023) Only the most recent of6 resultswithin the time period is included. BUN 60(H) 6 - 19 mg/dL [facility] Creatinine 9.75(H) 0.60 - 1.30 mg/dL [facility] BUN/Creatinine Ratio 6.2(L) 10.0 - 20.0 [facility] Sodium 133(L) 136 - 145 mEq/L [facility] Potassium 5.6(H) 3.5 - 5.1 mEq/L [facility] Chloride 102 96 - 108 mEq/L [facility] Bicarbonate (CO2) 21 20 - 31 mEq/L [facility] Calcium 9.4 8.7 - 10.4 mg/dL [facility] Comment: Please note change in reference range. Corrected Calcium 9.2 8.7 - 10.4 mg/dL [facility] Comment: Corrected Calcium is not equivalent to measured Ionized Calcium. Phosphorus 3.9 2.6 - 4.5 mg/dL [facility] Calcium Phosphorus Product 37 0 - 54 [facility] Calcium Phosporus Product, Cor 36 0 - 54 [facility] Total Protein 7.2 6.0 - 8.5 g/dL [facility] Albumin 4.3 3.5 - 5.2 g/dL [facility] Globulin, Total 2.9 2.0 - 4.0 g/dL [facility] A/G Ratio 1.5 1.0 - 2.0 [facility] Iron 66 30 - 160 mcg/dL [facility] UIBC 194 155 - 355 mcg/dL [facility] TIBC 260 185 - 515 mcg/dL [facility] Iron Saturation (TSat) 25 20 - 55 % [facility] 07/21/2023 07/22/2023 6:1 1 AM CDT Narrative [facility] - 07/22/2023 Unless otherwise specified, test(s) performed at: [facility], [address] [place] [address], [place] [address] BILLING CUSTOMER SERVICE REPRESENTATIVE: John Hernandez M.D., Ph.D For any questions, please call customer service at FREQUENCY:MONTHLY Resulting Agency Comment Specimen source: Serum López Mariano MD LAB BLOOD ORDERABLES [facility] See order comments or contact performing lab Unknown, [place] * [facility] Lab Results (07/21/2023) Only the most recent of3 resultswithin the time period is included. spKt/V (Daugirdas II) 1.68 [facility] spKt/V Gotch 1.78 [facility] eKt/V ([place]) 1.41 [facility] eKdrt/V 1.47 [facility] WSTDKT/V 2.5 [facility] nPCR_HD 1.14 [facility] eKt/V Gotch 1.47 [facility] e [facility] eNPCR 1.05 [facility] PCR 59.79 [facility] 07/21/2023 07/21/2023 Niels Ordering Provider LAB BLOOD ORDERABLE S [facility] Contact Performing lab Unknown, [place] from Last 3 Months Advance Directives Healthcare Agents on File Name Relationship Healthcare Agent Relationshi p Communication Staci [facility] Health Care Agent
--- OUTSIDE RECORDS SUMMARY | 2023-07-28 19:24 | XMS_ITS | Encounter Summary ---
Author Name Unknown Organization [facility] Address [address] [facility] [address] [place] [address] Care Team Providers Care Bridge Gang Worker Name Role Phone Unavailable Primary Care Provider Unavailabl e Encounter Details Date Type Department Care Team Description 06/30/2023 Orders Only [facility] [place] [address] [place] [address] López Mariano MD [address] [place] [address] Social History Tobacco Use Types Packs/Day Years Used Date Smoking Tobacco: Never Assessed Sex and Gender Information Value Date Recorded Sex Assigned at Not on file Gender Identity Not on file Sexual Orientation Not on file documented as of this encounter Plan of Treatment Not on file documented as of this encounter Procedures Procedure Name Priority Date/Time Associated Diagnosis Comments HEMATOLOGY Routine 06/30/2023 documented in this encounter Results * (ABNORMAL) HEMATOLOGY (06/30/2023) Hemoglobin 11.9(L) 12.0 - 16.0 g/dL [facility] Hemoglobin x 3 35.7(L) 36.0 - 48.0 % [facility] 06/30/2023 07/01/2023 3:4 7 PM CDT Narrative [facility] - 07/01/2023 Unless otherwise specified, test(s) performed at: [facility], [address] [place] [address], [place] [address] [id number] ARMOR CREWMAN: John Hernandez M.D., Ph.D For any questions, please call customer service at FREQUENCY:OTHER Resulting Agency Comment Specimen source: Blood López Mariano MD LAB BLOOD ORDERABLES [facility] documented in this encounter Visit Diagnoses Not on filedocumented in this encounter
--- OUTSIDE RECORDS SUMMARY | 2023-07-28 19:24 | XMS_ITS | Encounter Summary ---
Author Name Unknown Organization [facility] Address [address] [facility] [address] [place] [address] Care Team Providers Care Billing Customer Service Representative Name Role Phone Unavailable Primary Care Provider Unavailabl e Encounter Details Date Type Department Care Team Description 05/05/2023 Orders Only [facility] [place] [address] [place] [address] López Mariano MD [address] [place] [address] Social History Tobacco Use Types [...] Priority Date/Time Associated Diagnosis Comments HEMATOLOGY Routine 05/05/2023 documented in this encounter Results * HEMATOLOGY (05/05/2023) Hemoglobin 12.2 12.0 - 16.0 g/dL [facility] Hemoglobin x 3 36.6 36.0 - 48.0 % [facility] 05/05/2023 05/07/2023 10: 41 AM ELECTRICAL REPAIRER Narrative [facility] - 05/07/2023 Unless otherwise specified, test(s) performed at: [email or web address], [address] [place] [address], [place] [address] HEAD PORTER: John Hernandez M.D., Ph.D For any questions, please call customer service at FREQUENCY:OTHER Resulting Agency Comment Specimen source: Blood López Mariano MD LAB BLOOD ORDERABLES [facility] documented in this encounter Visit Diagnoses Not on filedocumented in this encounter
--- OUTSIDE RECORDS SUMMARY | 2023-07-28 19:24 | XMS_ITS | Encounter Summary ---
Author Name Unknown Organization [facility] Address [address] [facility] [address] [place] [address] Care Team Providers Care Insurance Appraiser Name Role Phone Unavailable Primary Care Provider Unavailabl e Encounter Details Date Type Department Care Team Description 04/23/2023 Orders Only [facility] [place] [address] [facility] [address] [place] [address] López Mariano MD [address] [place] [address] Social History Tobacco Use Types Packs/Day Years Used Date Smoking Tobacco: Never Assessed Sex and Gender Information Value Date Recorded Sex Assigned at Not on file Gender Identity Not on file Sexual Orientation Not on file documented as of this encounter Plan of Treatment Not on file documented as of this encounter Procedures Procedure Name Priority Date/Time Associated Diagnosis Comments CHEMISTRY Routine 04/23/2023 documented in this encounter Results * (ABNORMAL) [facility] (04/23/2023) Potassium 5.4(H) 3.5 - 5.1 mEq/L [facility] 04/23/2023 04/24/2023 9:2 7 AM FAMILY SPECIALIST Narrative [facility] - 04/24/2023 Unless otherwise specified, test(s) performed at: [facility] [address] [place] [address], [place] [address] RADAR OPERATOR: John Hernandez M.D., Ph.D For any questions, please call customer service at FREQUENCY:OTHER Resulting Agency Comment Specimen source: Serum López Mariano MD LAB BLOOD ORDERABLES [facility] documented in this encounter Visit Diagnoses Not on filedocumented in this encounter
--- OUTSIDE RECORDS SUMMARY | 2023-07-28 19:24 | XMS_ITS | Encounter Summary ---
Author Name Unknown Organization [facility] Address [address] [facility] [address] [place] [address] Care Team Providers Care Director Of Medical Services Name Role Phone Unavailable Primary Care Provider Unavailabl e Encounter Details Date Type Department Care Team Description 06/02/2023 Orders Only [facility] [place] [address] [place] [address] López Mariano MD [address] [place] [address] Social History Tobacco Use Types [...] Priority Date/Time Associated Diagnosis Comments HEMATOLOGY Routine 06/02/2023 documented in this encounter Results * (ABNORMAL) HEMATOLOGY (06/02/2023) Hemoglobin 11.8(L) 12.0 - 16.0 g/dL [facility] Hemoglobin x 3 35.4(L) 36.0 - 48.0 % [facility] 06/02/2023 06/03/2023 2:0 9 PM SIDE SEAM MACHINE OPERATOR Narrative [facility] - 06/03/2023 Unless otherwise specified, test(s) performed at: [facility], [address] [place] [address] [place] [address] SILK WINDING MACHINE OPERATOR: John Hernandez M.D., Ph.D For any questions, please call customer service at FREQUENCY:OTHER Resulting Agency Comment Specimen source: Blood López Mariano MD LAB BLOOD ORDERABLES [facility] documented in this encounter Visit Diagnoses Not on filedocumented in this encounter
--- OUTSIDE RECORDS SUMMARY | 2023-07-28 19:24 | XMS_ITS | Encounter Summary ---
Author Name Unknown Organization [facility] [place] [place] Address [address] [place] [address] Care Team Providers Care Econometrician Name Role Phone Unavailable Primary Care Provider Unavailabl e Encounter Details Date Type Department Care Team Description 07/02/2023 Treatment [facility] [place] [address] [place] [address] Viji Chavez, PAL[employer]-SUPERINTENDENT [employer] [address] [place] [address] Social History Tobacco Use Types Packs/Day Years Used Date Smoking Tobacco: Never Assessed Sex and Gender Information Value Date Recorded Sex Assigned at Not on file Gender Identity Not on file Sexual Orientation Not on file documented as of this encounter Miscellaneous Notes * Dialysis Note - Viji Chavez APRN-CNP - 07/02/2023 4:55 PM CDT Date: Jul 02, 2023 Patient Name: Stephanie Norman : 1965 Chart #: [id number] Sex: F This patient was personally seen for a complete visit as part of routine monthly dialysis care. A review of the dialysis treatment, blood pressure, estimated dry weight and recent lab values was made. These were discussed with the patient and staff as necessary. Treatment Data for 07/02/2023 started at:11:36 AM Dialyzer: 180NRe Optiflux Na: 137 mEq/L Bicarb: 25 mEq/L Dialysate: 2.0 K, 2.5 Ca, 1.0 Mg, 100 Dextrose (G2251) Dialysate/Machine Temp (prescribed): 37 C Dialysate/Machine Temp (actual): 37.1 C BFR (prescribed): 450 BFR (actual): n/a Prescribed time: 03:30 EDW: 95 kg Access Type: AVFistula-Standard/Left Upper Arm Pre Dialysis Vitals (for 07/02/2023 11:30 AM ) Pre BP (sit): 152/73 Pre Wt: 98.3 kg Temp: 98.1 F Post Dialysis Vitals (for 07/02/2023 3:09 PM ) Post BP (sit): 118/65 Post Wt: 94.8 kg Chairside data as of 07/02/2023 3:09 PM Last 3 Treatments 07/02/2023 06/30/2023 06/28/2023 EDW (kg) 95 95 95 Weight Pre (kg) 98.3 97.8 99.2 Weight Post (kg) 94.8 94.7 95 Dialytic Weight Loss (kg) -3.5 -3.1 -4.2 EDW Deviation (kg) -0.2 -0.3 0 BP Sit Pre 152/73 109/28 115/60 BP Sit Post 118/65 95/53 105/57 UF Rate (mL/kg/hr) 10 9 13 Prescribed BFR 450 450 450 Average Delivered BFR 450 450 450 Prescribed Treatment Time 03:30 03:30 03:30 Actual Treatment Time 03:31 03:31 03:30 Last 3 Values 06/21/2023 05/24/2023 05/07/2023 Access Flow 1557 > 2000 > 2000 Treatment Medication Orders Medication Sig Start Date End Date Heparin Sodium (Porcine) 1,000 Units/mL Systemic 2000 units IVP Every Treatment 01/25/2023 01/24/2024 Heparin Sodium (Porcine) 1,000 Units/mL Systemic 4000 units IVP Every Treatment 01/25/2023 01/24/2024 Vitamin D (Calcitriol) Oral 0.25 mcg ORAL Every Treatment During Dialysis 06/28/2023 06/26/2024 MANAGER BUSINESS PLANNING: López Mariano MD LOCATION: [phone] SCHEDULE: -W-F 2nd Shift EDW: kg. DIALYZER: HD DURATION: NEEDLE SIZE: ANTICOAG: BATH: QB: ml/min QD: ml/min Subjective No new complaints. Stephanie is doing great. She is likely getting a promotion at work. She feels overall excellent. Her labs are great. She will reach EDW today and her BP is controlled. Advanced Practitioner Subjective ASSEMBLER FAUCETS 07/02/2023: Patient seen on dialysis. No new dialysis concerns. Denies SOB, chest pain, or dizziness. Has been getting to EDW. AVF functional; no reported issues. BP stable. Continue to challenge EDW. ASSEMBLER FAUCETS 05/21/2023: Spoke with patient at chairside. Feeling [...] made. Treatment and Adequacy Assessment BUN mg/dL 58 (06/23/23) 53 (05/26/23) 62 (04/21/23) 59 (03/24/23) 41 (02/17/23) UREA NITROGEN (MG/DL) IN SER/PLAS - POST DIALYSIS mg/dL 13 (06/23/23) 14 (05/26/23) 15 (04/21/23) 13 (03/24/23) 9 (02/17/23) URR % 78 (06/23/23) 74 (05/26/23) 76 (04/21/23) 78 (03/24/23) 78 (02/17/23) spKt/V Gotch 1.81 (06/23/23) 1.63 (05/26/23) 1.77 (04/21/23) 1.78 (03/24/23) 1.81 (02/17/23) eKdrt/V 1.53 (06/23/23) 1.38 (05/26/23) 1.5 (04/21/23) 1.51 (03/24/23) 1.53 (02/17/23) spKt/V (Daugirdas II) 1.7300 (06/23/23) 1.5400 (05/26/23) 1.6800 (04/21/23) 1.7300 (03/24/23) 1.7500 (02/17/23) Dialysis is adequate. Achieves prescribed time - Yes Achieves prescribed frequency - Yes Continue current prescription. Vascular Access Assessment Type of access: Fistula Send for fistulagram. 06/18/22 [facility]: outflow vein moderate stenosis s/p angioplasty with good success 05/2022: Fistulagram scheduled for pain surrounding access and collateral vessels -> appt 06/18/22 at [facility] scheduled for fistulagram Fistulagram 12/2020 patent and no stenosis. Working well now was of 02/2021 Anemia Assessment HEMOGLOBIN (G/DL) IN BLOOD g/dL 11.9 (06/30/23) 11.8 (06/23/23) 12.2 (06/16/23) 12.5 (06/09/23) 11.8 (06/02/23) PLATELETS 1000/mcL 195 (06/23/23) 201 (05/26/23) 220 (04/21/23) 211 (03/24/23) 190 (02/17/23) FERRITIN ng/mL 984 (05/26/23) 1269 (02/17/23) 1631 (01/20/23) 1134 (10/21/22) 1087 (07/22/22) TRANSFERRIN SAT% % 22 (06/23/23) 24 (05/26/23) 21 (04/21/23) 28 (03/24/23) 29 (02/17/23) Hemoglobin is above goal. Iron Saturation is at goal. Ferritin is at goal. No FABIO therapy with Hgb >11 Nutritional and Metabolic Assessment ALBUMIN (G/DL) g/dL 4.2 (06/23/23) 4.2 (05/26/23) 4.1 (04/21/23) 4.5 (03/24/23) 4.3 (02/17/23) Sodium mEq/L 130 (06/23/23) 134 (05/26/23) 130 (04/21/23) 134 (03/24/23) 136 (02/17/23) POTASSIUM (MMOL/L) IN SER/PLAS mEq/L 5.8 (06/23/23) 5.3 (05/26/23) 5.4 (04/23/23) 4.7 (02/17/23) 4.9 (01/20/23) BICARBONATE (CO2) mEq/L 23 (06/23/23) 22 (05/26/23) 21 (04/21/23) 20 (03/24/23) 26 (02/17/23) 25 OH VITAMIN D ng/mL 16.4 (02/17/23) 23.3 (10/21/22) Albumin is at goal. Encourage high-biological value protein intake. Potassium is at goal. Encourage low potassium diet. Bicarbonate is at goal. Continue same bicarbonate in dialysate. Bone and Mineral Metabolism Assessment CALCIUM mg/dL 9.2 (06/23/23) 9.5 (05/26/23) 9.3 (04/21/23) 9.1 (03/24/23) 9.4 (02/17/23) CALCIUM (MG/DL) CORRECTED FOR ALBUMIN IN SER/PLAS mg/dL 9.0 (06/23/23) 9.3 (05/26/23) 9.2 (04/21/23) 8.7 (03/24/23) 9.2 (02/17/23) PHOSPHATE (MG/DL) IN SER/PLAS mg/dL 3.4 (06/23/23) 5.0 (05/26/23) 3.8 (04/21/23) 5.2 (03/24/23) 3.6 (02/17/23) CALCIUM PHOSPHORUS PRODUCT, COR 31 (06/23/23) 47 (05/26/23) 35 (04/21/23) 45 (03/24/23) 33 (02/17/23) IPTH pg/mL 154 (06/23/23) 143 (05/26/23) 216 (02/17/23) 233 (01/20/23) 270 (10/21/22) Corrected Calcium is at goal. Phosphorous is at goal. Intact PTH is at goal. Bale Breaker Operator will adjust binders and vitamin D per protocol and continue to provide dietary education. Cardiovascular Assessment Blood pressures reviewed and are acceptable. Intradialytic weight gains are appropriate. Estimated dry weight is appropriate. Improved IDWG's Transplant Status: Patient is on transplant list. [facility] - [facility] Listed for Transplant at [facility] as of Apr 2021 Possible living donors x2 possibly after she attended a graduation libertarian and two people expressed interest! Resuscitation Status Stable dialysis, no change in prescription VIJI CHAVEZ NP [ Signed And locked electronically On 07/02/2023 at 04:57:21 PM ] Transcribed: VIJI CHAVEZ ( 07/02/2023 ) documented in this encounter Plan of Treatment Not on file documented as of this encounter Visit Diagnoses Not on filedocumented in this encounter
--- OUTSIDE RECORDS SUMMARY | 2023-07-28 19:24 | XMS_ITS | Encounter Summary ---
Author Name Unknown Organization [facility] Address [address] [facility] [address] [place] [address] Care Team Providers Care Postmaster Name Role Phone Unavailable Primary Care Provider Unavailabl e Encounter Details Date Type Department Care Team Description 04/28/2023 Orders Only [facility] [place] [address] [place] [address] López Mariano MD [address] [place] [address] Social History Tobacco Use Types [...] Priority Date/Time Associated Diagnosis Comments HEMATOLOGY Routine 04/28/2023 documented in this encounter Results * HEMATOLOGY (04/28/2023) Hemoglobin 12.3 12.0 - 16.0 g/dL [facility] Hemoglobin x 3 36.9 36.0 - 48.0 % [facility] 04/28/2023 04/29/2023 10: 09 AM DIRECTOR AUDIENCE MARKETING Narrative [facility] - 04/29/2023 Unless otherwise specified, test(s) performed at: [facility], [address] [place] [address], [place] [address] SITE DIRECTOR: John Hernandez M.D., Ph.D For any questions, please call customer service at FREQUENCY:OTHER Resulting Agency Comment Specimen source: Blood López Mariano MD LAB BLOOD ORDERABLES [facility] documented in this encounter Visit Diagnoses Not on filedocumented in this encounter
--- OUTSIDE RECORDS SUMMARY | 2023-07-28 19:24 | XMS_ITS | Encounter Summary ---
Author Name Unknown Organization [facility] [place] Address [address] [place] [address] Care Team Providers Care Farmer General Name Role Phone Unavailable Primary Care Provider Unavailabl e Encounter Details Date Type Department Care Team Description 05/10/2023 Treatment [facility] [place] [address] [place] [address] López Mariano MD [address] [place] [phone] Social History Tobacco Use Types Packs/Day Years Used Date Smoking Tobacco: Never Assessed Sex and Gender Information Value Date Recorded Sex Assigned at Not on file Gender Identity Not on file Sexual Orientation Not on file documented as of this encounter Miscellaneous Notes * Dialysis Note - López Mariano MD - 05/10/2023 12:18 PM CST Date: May 10, 2023 Patient Name: Stephanie Norman : 1965 Chart #: [id number] Sex: F This patient was personally seen for a complete visit as part of routine monthly dialysis care. A review of the dialysis treatment, blood pressure, estimated dry weight and recent lab values was made. These were discussed with the patient and staff as necessary. Treatment Data for 05/10/2023 started at:11:37 AM Dialyzer: 180NRe Optiflux Na: 137 mEq/L Bicarb: 25 mEq/L Dialysate: 2.0 K, 2.5 Ca, 1.0 Mg, 100 Dextrose (G2251) Dialysate/Machine Temp (prescribed): 37 C Dialysate/Machine Temp (actual): 37.2 C BFR (prescribed): 450 BFR (actual): 450 Prescribed time: 03:30 EDW: 94.5 kg Access Type: Active (In Use):AVFistula-Standard/Left Upper Arm Pre Dialysis Vitals (for 05/10/2023 11:27 AM ) Pre BP (sit): 138/66 Pre Wt: 98.1 kg Temp: 97.5 F Post Dialysis Vitals (for 05/07/2023 3:08 PM ) Post BP (sit): 109/51 Post Wt: 94.5 kg Current Dialysis Vitals (for 05/10/2023 12:05 PM ) BP (sit): 119/65 AP(-) / [facility] [facility] SERVICES: 188/194 Pulse: 67 Chairside data as of 05/10/2023 12:05 PM Last 3 Treatments 05/07/2023 05/05/2023 05/03/2023 EDW (kg) 94.5 94.5 94.5 Weight Pre (kg) 98 98.8 99.4 Weight Post (kg) 94.5 95.7 95.8 Dialytic Weight Loss (kg) -3.5 -3.1 -3.6 EDW Deviation (kg) 0.0 1.2 1.3 BP Sit Pre 126/69 134/72 125/66 BP Sit Post 109/51 117/55 123/71 UF Rate (mL/kg/hr) 11 12 10 Prescribed BFR 450 450 450 Average Delivered BFR 430 450 420 Prescribed Treatment Time 03:30 03:30 03:30 Actual Treatment Time 03:30 02:46 03:39 Last 3 Values 05/07/2023 03/22/2023 02/26/2023 Access Flow > 2000 > 2000 > 2000 Treatment Medication Orders Medication Sig Start Date End Date Heparin Sodium (Porcine) 1,000 Units/mL Systemic 2000 units IVP Every Treatment 01/25/2023 01/24/2024 Heparin Sodium (Porcine) 1,000 Units/mL Systemic 4000 units IVP Every Treatment 01/25/2023 01/24/2024 Vitamin D (Calcitriol) Oral 0.75 mcg ORAL Every Treatment 04/28/2023 04/26/2024 INVESTIGATIVE AGENT: López Mariano MD LOCATION: [place] [phone] SCHEDULE: -- 2nd Shift EDW: kg. DIALYZER: HD DURATION: NEEDLE SIZE: ANTICOAG: BATH: QB: ml/min QD: ml/min Subjective No new complaints. She is doing very well. She has no concerns. Ongoing intermittent restless legs toward end of treatment and stationary bike helps. Had COVID in house but she tested negative so far. Running in iso room out of precaution Advanced Practitioner Subjective CRYPTOLOGIC TECHNICIAN 04/23/2023: Patient seen on dialysis. Denies SOB, chest pain, cramping or dizziness. BP stable. AVF working well; no reported issues from staff. Achieving EDW with recent runs. Continue plan of care. CRYPTOLOGIC TECHNICIAN 04/05/2023: Spoke with patient at chairside. Was having hand pain. X-ray did not show any arthritis. Denies SOB, chest pain, cramping or dizziness. BP stable. AVF working well; no reported issues from staff. Achieving EDW with recent runs. Continue plan of care. No changes today. [...] leg edema. Access - AVF without aneurysms and two needles in place Medication List Medication Sig [...] prior to dialysis and cover with saran wrap Lipitor (atorvastatin) 40 mg tablet Take 1 [...] made. Treatment and Adequacy Assessment BUN mg/dL 62 (04/21/23) 59 (03/24/23) 41 (02/17/23) 54 (01/25/23) 47 (01/20/23) UREA NITROGEN (MG/DL) IN SER/PLAS - POST DIALYSIS mg/dL 15 (04/21/23) 13 (03/24/23) 9 (02/17/23) 12 (01/25/23) 11 (12/23/22) URR % 76 (04/21/23) 78 (03/24/23) 78 (02/17/23) 78 (01/25/23) 76 (12/23/22) spKt/V Gotch 1.77 (04/21/23) 1.78 (03/24/23) 1.81 (02/17/23) 1.84 (01/25/23) 1.66 (12/23/22) eKdrt/V 1.5 (04/21/23) 1.51 (03/24/23) 1.53 (02/17/23) 1.55 (01/25/23) 1.4 (12/23/22) spKt/V (Daugirdas II) 1.6800 (04/21/23) 1.7300 (03/24/23) 1.7500 (02/17/23) 1.7700 (01/25/23) 1.6100 (12/23/22) Dialysis is adequate. Achieves prescribed time - Yes Achieves prescribed frequency - Yes Continue current prescription. Vascular Access Assessment Type of access: Fistula Send for fistulagram. 06/18/22 [facility]: outflow vein moderate stenosis s/p angioplasty with good success 05/2022: Fistulagram scheduled for pain surrounding access and collateral vessels -> appt 06/18/22 at [facility] scheduled for fistulagram Fistulagram 12/2020 patent and no stenosis. Working well now was of 02/2021 Anemia Assessment HEMOGLOBIN (G/DL) IN BLOOD g/dL 12.2 (05/05/23) 12.3 (04/28/23) 12.1 (04/21/23) 11.7 (04/14/23) 11.9 (04/07/23) PLATELETS 1000/mcL 220 (04/21/23) 211 (03/24/23) 190 (02/17/23) 227 (01/20/23) 215 (12/23/22) FERRITIN ng/mL 1269 (02/17/23) 1631 (01/20/23) 1134 (10/21/22) 1087 (07/22/22) TRANSFERRIN SAT% % 21 (04/21/23) 28 (03/24/23) 29 (02/17/23) 29 (01/20/23) 32 (12/23/22) Hemoglobin is above goal. Iron Saturation is at goal. Ferritin is at goal. No FABIO therapy with Hgb >11 Nutritional and Metabolic Assessment ALBUMIN (G/DL) g/dL 4.1 (04/21/23) 4.5 (03/24/23) 4.3 (02/17/23) 4.2 (01/20/23) 4.3 (12/23/22) Sodium mEq/L 130 (04/21/23) 134 (03/24/23) 136 (02/17/23) 136 (01/20/23) 135 (12/23/22) POTASSIUM (MMOL/L) IN SER/PLAS mEq/L 5.4 (04/23/23) 4.7 (02/17/23) 4.9 (01/20/23) 4.6 (12/23/22) 4.6 (11/18/22) BICARBONATE (CO2) mEq/L 21 (04/21/23) 20 (03/24/23) 26 (02/17/23) 23 (01/20/23) 26 (12/23/22) 25 OH VITAMIN D ng/mL 16.4 (02/17/23) 23.3 (10/21/22) 20.2 (05/27/22) Albumin is at goal. Encourage high-biological value protein intake. Potassium is at goal. Encourage low potassium diet. Bicarbonate is at goal. Continue same bicarbonate in dialysate. Bone and Mineral Metabolism Assessment CALCIUM mg/dL 9.3 (04/21/23) 9.1 (03/24/23) 9.4 (02/17/23) 9.2 (01/20/23) 9.4 (12/23/22) CALCIUM (MG/DL) CORRECTED FOR ALBUMIN IN SER/PLAS mg/dL 9.2 (04/21/23) 8.7 (03/24/23) 9.2 (02/17/23) 9.0 (01/20/23) 9.2 (12/23/22) PHOSPHATE (MG/DL) IN SER/PLAS mg/dL 3.8 (04/21/23) 5.2 (03/24/23) 3.6 (02/17/23) 3.8 (01/20/23) 5.2 (12/23/22) CALCIUM PHOSPHORUS PRODUCT, COR 35 (04/21/23) 45 (03/24/23) 33 (02/17/23) 34 (01/20/23) 48 (12/23/22) IPTH pg/mL 216 (02/17/23) 233 (01/20/23) 270 (10/21/22) 273 (07/22/22) 355 (05/27/22) Corrected Calcium is at goal. Phosphorous is at goal. Intact PTH is at goal. Cardiac Catheterization Technician will adjust binders and vitamin D per protocol and continue to provide dietary education. Cardiovascular Assessment Blood pressures reviewed and are acceptable. Intradialytic weight gains are appropriate. Estimated dry weight is appropriate. IDWG's at times high, have discussed renal diet and fluid restriction. Doing well this week. Transplant Status: Patient is on transplant list. [facility] - [facility] Listed for Transplant at [facility] as of Apr 2021 Possible living donors x2 possibly after she attended a graduation constitution party and two people expressed interest! Resuscitation Status Stable dialysis, no change in prescription López Mariano MD [ Signed And locked electronically On 05/10/2023 at 12:19:51 PM ] Transcribed: López Mariano ( 05/10/2023 ) documented in this encounter Plan of Treatment Not on file documented as of this encounter Visit Diagnoses Not on filedocumented in this encounter
--- OUTSIDE RECORDS SUMMARY | 2023-07-28 19:24 | XMS_ITS | Encounter Summary ---
Author Name Unknown Organization [facility] Address [address] [facility] [address] [place] [address] Care Team Providers Care Emergency Technician Name Role Phone Unavailable Primary Care Provider Unavailabl e Encounter Details Date Type Department Care Team Description 05/12/2023 Orders Only [facility] [place] [address] [place] [address] López Mariano MD [address] [place] [address] Social History Tobacco Use Types [...] Priority Date/Time Associated Diagnosis Comments HEMATOLOGY Routine 05/12/2023 documented in this encounter Results * HEMATOLOGY (05/12/2023) Hemoglobin 12.3 12.0 - 16.0 g/dL [facility] Hemoglobin x 3 36.9 36.0 - 48.0 % [facility] 05/12/2023 05/13/2023 8:1 5 PM RUBBER HEEL AND SOLE PRESS TENDER Narrative [facility] - 05/14/2023 Unless otherwise specified, test(s) performed at: [facility], [address] [place] [address], [place] [address] TRANSONIC ENGINEER: John Hernandez M.D., Ph.D For any questions, please call customer service at FREQUENCY:OTHER Resulting Agency Comment Specimen source: Blood López Mariano MD LAB BLOOD ORDERABLES [facility] documented in this encounter Visit Diagnoses Not on filedocumented in this encounter
--- OUTSIDE RECORDS SUMMARY | 2023-07-28 19:24 | XMS_ITS | Encounter Summary ---
Author Name Unknown Organization [facility] Address [address] [place] [address] Care Team Providers Care Cleaner Housekeeping Name Role Phone Unavailable Primary Care Provider Unavailabl e Encounter Details Date Type Department Care Team Description 07/21/2023 Orders Only [facility] [place] [address] [place] [address] López Mariano MD [address] [place] [address] Social History Tobacco Use Types Packs/Day Years Used Date Smoking Tobacco: Never Assessed Sex and Gender Information Value Date Recorded Sex Assigned at Not on file Gender Identity Not on file Sexual Orientation Not on file documented as of this encounter Plan of Treatment Not on file documented as of this encounter Procedures Procedure Name Priority Date/Time Associated Diagnosis Comments HD KINETICS Routine 07/21/2023 POST CHEMISTRY Routine 07/21/2023 HEMATOLOGY Routine 07/21/2023 CHEMISTRY Routine 07/21/2023 CHEMISTRY Routine 07/21/2023 [facility] LAB RESULTS Routine 07/21/2023 documented in this encounter Results * [facility] Lab Results (07/21/2023) spKt/V (Lloyd II) 1.68 [facility] spKt/V Gotch 1.78 [facility] Center eKt/V ([place]) 1.41 [facility] eKdrt/V 1.47 [facility] WSTDKT/V 2.5 [facility] nPCR_HD 1.14 [facility] eKt/V Gotch 1.47 [facility] e Center eNPCR 1.05 [facility] PCR 59.79 [facility] 07/21/2023 07/21/2023 [place] Ordering Provider LAB BLOOD ORDERABLE S [facility] Contact Performing lab Unknown, [place] * (ABNORMAL) HEMATOLOGY (07/21/2023) Neutrophils 80.0(H) 40.0 - 75.0 % Spectra [...] 07/21/2023 07/22/2023 12: 49 PM CDT Narrative [facility] - 07/22/2023 Unless otherwise specified, test(s) performed at: [facility], [address] [place] [address], [place] [address] ANTI TANK MISSILEMAN: John Hernandez M.D., Ph.D For any questions, please call customer service at FREQUENCY:MONTHLY Resulting Agency Comment Specimen source: Blood López Mariano MD LAB BLOOD ORDERABLES Performing Organization Address [facility] de Phone Number [facility] See order comments or contact performing lab Unknown, [place] * HD KINETICS (07/21/2023) Pathologist [facility] % Urea Reduction 77 65 - 80 % [facility] 07/21/2023 07/22/2023 5:3 9 AM CDT Narrative Resulting Agency Comment Specimen source: Plasma López Mariano MD LAB BLOOD ORDERABLES Performing Organization Address [facility] de Phone Number [facility] See order comments or contact performing lab Unknown, [place] * POST CHEMISTRY (07/21/2023) BUN Post Dialysis 14 6 - 19 mg/dL [facility] 07/21/2023 07/22/2023 5:3 9 AM CDT Narrative [facility] - 07/22/2023 Unless otherwise specified, test(s) performed at: [facility], [address] [place] [address] ANTI TANK MISSILEMAN: John Hernandez M.D., Ph.D For any questions, please call customer service at FREQUENCY:MONTHLY Resulting Agency Comment Specimen source: Plasma López Mariano MD LAB BLOOD ORDERABLES Performing Organization Address [facility] Co de Phone Number [facility] See order comments or contact performing lab Unknown, [place] * (ABNORMAL) [facility] Chemistry (07/21/2023) BUN 60(H) 6 - 19 mg/dL Spectra [...] 07/21/2023 07/22/2023 6:1 1 AM CDT Narrative [facility] S[facility]RA [facility] - 07/22/2023 Unless otherwise specified, test(s) performed at: [facility], [address] [place] [address], [place] [address] ANTI TANK MISSILEMAN: John Hernandez M.D., Ph.D For any questions, please call customer service at FREQUENCY:MONTHLY Resulting Agency Comment Specimen source: Serum López Mariano MD LAB BLOOD ORDERABLES [facility] SPECTRA KSN [facility] See order comments or contact performing lab Unknown, [place] * (ABNORMAL) [facility] Chemistry (07/21/2023) PTH 208(H) 16 - 80 pg/mL [facility] 07/21/2023 07/22/2023 5:1 7 AM CDT Narrative [facility] - 07/22/2023 Unless otherwise specified, test(s) performed at: [facility], [address] [place] [address], [place] [address] ANTI TANK MISSILEMAN: John Hernandez M.D., Ph.D For any questions, please call customer service at FREQUENCY:MONTHLY Resulting Agency Comment Specimen source: Plasma López Mariano MD LAB BLOOD ORDERABLES [facility] KSN [facility] See order comments or contact performing lab Unknown, [place] documented in this encounter Visit Diagnoses Not on filedocumented in this encounter
--- OUTSIDE RECORDS SUMMARY | 2023-07-28 19:24 | XMS_ITS | Encounter Summary ---
Author Name Unknown Organization [facility] Address [address] [facility] [address] [place] [address] Care Team Providers Care Agricultural Sales Representative Name Role Phone Unavailable Primary Care Provider Unavailabl e Encounter Details Date Type Department Care Team Description 07/14/2023 Orders Only [facility] [place] [address] [place] [address] López Mariano MD [address] [place] [address] Social History Tobacco Use Types [...] Priority Date/Time Associated Diagnosis Comments HEMATOLOGY Routine 07/14/2023 documented in this encounter Results * HEMATOLOGY (07/14/2023) Hemoglobin 12.3 12.0 - 16.0 g/dL [facility] Hemoglobin x 3 36.9 36.0 - 48.0 % [facility] 07/14/2023 07/15/2023 5:3 2 AM CDT Narrative [facility] - 07/15/2023 Unless otherwise specified, test(s) performed at: [facility], [address] [place] [address], [place] [address] INTERACTIVE MEDIA MARKETING STRATEGIST: John Hernandez M.D., Ph.D For any questions, please call customer service at FREQUENCY:OTHER Resulting Agency Comment Specimen source: Blood López Mariano MD LAB BLOOD ORDERABLES [facility] documented in this encounter Visit Diagnoses Not on filedocumented in this encounter
--- OUTSIDE RECORDS SUMMARY | 2023-07-28 19:24 | XMS_ITS | Encounter Summary ---
Author Name Unknown Organization [facility] Address [address] [facility] [address] [place] [address] Care Team Providers Care Laboratory Technologist Name Role Phone Unavailable Primary Care Provider Unavailabl e Encounter Details Date Type Department Care Team Description 07/07/2023 Orders Only [facility] [place] [address] [place] [address] López Mariano MD [address] [place] [address] Social History Tobacco Use Types [...] Priority Date/Time Associated Diagnosis Comments HEMATOLOGY Routine 07/07/2023 documented in this encounter Results * HEMATOLOGY (07/07/2023) Hemoglobin 12.1 12.0 - 16.0 g/dL [facility] Hemoglobin x 3 36.3 36.0 - 48.0 % [facility] 07/07/2023 07/08/2023 3:2 1 AM CDT Narrative [facility] - 07/08/2023 Unless otherwise specified, test(s) performed at: [facility] [address] [place] [address], [place] [address] ALUMINA REFINERY OPERATOR: John Hernandez M.D., Ph.D For any questions, please call customer service at FREQUENCY:OTHER Resulting Agency Comment Specimen source: Blood López Mariano MD LAB BLOOD ORDERABLES [facility] documented in this encounter Visit Diagnoses Not on filedocumented in this encounter
--- OUTSIDE RECORDS SUMMARY | 2023-07-28 19:24 | XMS_ITS | Encounter Summary ---
Author Name Unknown Organization [facility] Address [address] [facility] [address] [place] [address] Care Team Providers Care Electronic Equipment Installer Name Role Phone Unavailable Primary Care Provider Unavailabl e Encounter Details Date Type Department Care Team Description 06/09/2023 Orders Only [facility] [place] [address] [place] [address] López Mariano MD [address] [place] [address] Social History Tobacco Use Types [...] Priority Date/Time Associated Diagnosis Comments HEMATOLOGY Routine 06/09/2023 documented in this encounter Results * HEMATOLOGY (06/09/2023) Hemoglobin 12.5 12.0 - 16.0 g/dL [facility] Hemoglobin x 3 37.5 36.0 - 48.0 % [facility] 06/09/2023 06/10/2023 11: 46 AM CHIEF ADMINISTRATIVE OFFICER Narrative [facility] - 06/10/2023 Unless otherwise specified, test(s) performed at: [facility], [address] [place] [address], [place] [address] CARNALLITE PLANT OPERATOR: John Hernandez M.D., Ph.D For any questions, please call customer service at FREQUENCY:OTHER Resulting Agency Comment Specimen source: Blood López Mariano MD LAB BLOOD ORDERABLES [facility] documented in this encounter Visit Diagnoses Not on filedocumented in this encounter
--- OUTSIDE RECORDS SUMMARY | 2023-07-28 19:24 | XMS_ITS | Encounter Summary ---
Author Name Unknown Organization [facility] Address [address] [place] [address] Care Team Providers Care Showroom Executive Director Name Role Phone Unavailable Primary Care Provider Unavailabl e Encounter Details Date Type Department Care Team Description 06/23/2023 Orders Only [facility] [place] [address] [place] [address] López Mariano MD [address] [place] [address] Social History Tobacco Use Types [...] Date/Time Associated Diagnosis Comments HD KINETICS Routine 06/23/2023 POST CHEMISTRY Routine 06/23/2023 HEMATOLOGY Routine 06/23/2023 CHEMISTRY Routine 06/23/2023 CHEMISTRY Routine 06/23/2023 [facility] LAB RESULTS Routine 06/23/2023 documented in this encounter Results * [facility] Lab Results (06/23/2023) WSTDKT/V 2.6 [facility] eKt/V ([place]) 1.49 [facility] eNPCR 1.03 [facility] eKdrt/V 1.53 [facility] spKt/V Gotch 1.81 [facility] eKt/V Gotch 1.53 [facility] nPCR_HD 1.11 [facility] spKt/V (Daugirdas II) 1.73 [facility] PCR 59.72 [facility] 06/23/2023 06/23/2023 [place] Ordering Provider LAB BLOOD ORDERABLE S Performing Organization Address [facility] Co de Phone Number [facility] * HD KINETICS (06/23/2023) % Urea Reduction 78 65 - 80 % [facility] 06/23/2023 06/25/2023 3:1 2 AM GENERAL TECHNICIAN Narrative Resulting Agency Comment Specimen source: Plasma López Mariano MD LAB BLOOD ORDERABLES Performing Organization Address [facility] de Phone Number [facility] * POST CHEMISTRY (06/23/2023) BUN Post Dialysis 13 6 - 19 mg/dL [facility] 06/23/2023 06/25/2023 3:1 2 AM GENERAL TECHNICIAN Narrative [facility] - 06/25/2023 Unless otherwise specified, test(s) performed at: [facility], [address] [place] [address], [place] [address] CASINO CASHIER MANAGER: John Hernandez M.D., Ph.D For any questions, please call customer service at FREQUENCY:MONTHLY Resulting Agency Comment Specimen source: Plasma López Mariano MD LAB BLOOD ORDERABLES Performing Organization Address [facility] Co de Phone Number [facility] * (ABNORMAL) HEMATOLOGY (06/23/2023) Neutrophils 82.0(H) 40.0 - 75.0 % [facility] Lymphocytes Relative 9.1(L) 19.0 - 48.0 % [facility] Monocytes 5.3 3.0 - 10.0 % [facility] Eosinophils Relative 1.6 0.0 - 7.0 % [facility] Basophils Relative 0.9 0.0 - 1.5 % [facility] JESSICA 1.1 0.0 - 4.0 % [facility] WBC 9.91 4.80 - 10.80 1000/mcL [facility] RBC 3.66(L) 4.20 - 5.40 mill/mcL [facility] Hematocrit 38.0 37.0 - 47.0 % [facility] MCV 104(H) 80 - 100 fl [facility] MCH 32.2(H) 27.0 - 31.0 pg [facility] MCHC 31.1 30.0 - 36.0 g/dL [facility] RDW 14.3 11.5 - 14.5 % [facility] Hemoglobin 11.8(L) 12.0 - 16.0 g/dL [facility] Hemoglobin x 3 35.4(L) 36.0 - 48.0 % [facility] Platelets 195 130 - 400 1000/mcL [facility] 06/23/2023 06/25/2023 3:1 2 AM GENERAL TECHNICIAN Narrative [facility] - 06/25/2023 Unless otherwise specified, test(s) performed at: [facility], [address] [place] [address], [place] [address] CASINO CASHIER MANAGER: John Hernandez M.D., Ph.D For any questions, please call customer service at FREQUENCY:MONTHLY Resulting Agency Comment Specimen source: Blood López Mariano MD LAB BLOOD ORDERABLES [facility] * (ABNORMAL) [facility] Chemistry (06/23/2023) BUN 58(H) 6 - 19 mg/dL [facility] Creatinine 10.11(H) 0.60 - 1.30 mg/dL [facility] BUN/Creatinine Ratio 5.7(L) 10.0 - 20.0 [facility] Sodium 130(L) 136 - 145 mEq/L [facility] Potassium 5.8(H) 3.5 - 5.1 mEq/L [facility] Chloride 102 96 - 108 mEq/L [facility] Bicarbonate (CO2) 23 20 - 31 mEq/L [facility] Calcium 9.2 8.7 - 10.4 mg/dL [facility] Comment: Please note change in reference range. Corrected Calcium 9.0 8.7 - 10.4 mg/dL [facility] Comment: Corrected Calcium is not equivalent to measured Ionized Calcium. Phosphorus 3.4 2.6 - 4.5 mg/dL [facility] Calcium Phosphorus Product 31 0 - 54 [facility] Calcium Phosporus Product, Cor 31 0 - 54 [facility] Total Protein 7.2 6.0 - 8.5 g/dL [facility] Albumin 4.2 3.5 - 5.2 g/dL [facility] Globulin, Total 3.0 2.0 - 4.0 g/dL [facility] A/G Ratio 1.4 1.0 - 2.0 [facility] Iron 58 30 - 160 mcg/dL [facility] UIBC 202 155 - 355 mcg/dL [facility] TIBC 260 185 - 515 mcg/dL [facility] Iron Saturation (TSat) 22 20 - 55 % [facility] 06/23/2023 06/24/2023 4:0 9 PM GENERAL TECHNICIAN Narrative [facility] - 06/24/2023 Unless otherwise specified, test(s) performed at: [facility], [address] [place] [address], [place] [address] CASINO CASHIER MANAGER: John Hernandez M.D., Ph.D For any questions, please call customer service at FREQUENCY:MONTHLY Resulting Agency Comment Specimen source: Serum López Mariano MD LAB BLOOD ORDERABLES [facility] * (ABNORMAL) [facility] Chemistry (06/23/2023) PTH 154(H) 16 - 80 pg/mL [facility] 06/23/2023 06/24/2023 4:0 0 PM GENERAL TECHNICIAN Narrative [facility] - 06/24/2023 Unless otherwise specified, test(s) performed at: [facility], [address] [place] [address], [place] [address] CASINO CASHIER MANAGER: John Hernandez M.D., Ph.D For any questions, please call customer service at FREQUENCY:MONTHLY Resulting Agency Comment Specimen source: Plasma López Mariano MD LAB BLOOD ORDERABLES [facility] documented in this encounter Visit Diagnoses Not on filedocumented in this encounter
--- OUTSIDE RECORDS SUMMARY | 2023-07-28 19:24 | XMS_ITS | Encounter Summary ---
Author Name Unknown Organization [facility] [place] Address [address] [place] [address] Care Team Providers Care Order Expediter Name Role Phone Unavailable Primary Care Provider Unavailabl e Encounter Details Date Type Department Care Team Description 07/12/2023 Treatment [facility] [place] [address] [place] [address] López Mariano MD [address] [place] [address] Social History Tobacco Use Types Packs/Day Years Used Date Smoking Tobacco: Never Assessed Sex and Gender Information Value Date Recorded Sex Assigned at Not on file Gender Identity Not on file Sexual Orientation Not on file documented as of this encounter Miscellaneous Notes * Dialysis Note - López Mariano MD - 07/12/2023 2:32 PM CDT Date: Jul 12, 2023 Patient Name: Stephanie Norman : 1965 Chart #: [id number] Sex: F This patient was personally seen for a complete visit as part of routine monthly dialysis care. A review of the dialysis treatment, blood pressure, estimated dry weight and recent lab values was made. These were discussed with the patient and staff as necessary. Treatment Data for 07/12/2023 started at:11:28 AM Dialyzer: 180NRe Optiflux Na: 137 mEq/L Bicarb: 25 mEq/L Dialysate: 2.0 K, 2.5 Ca, 1.0 Mg, 100 Dextrose (G2251) Dialysate/Machine Temp (prescribed): 37 C Dialysate/Machine Temp (actual): 37 C BFR (prescribed): 450 BFR (actual): 450 Prescribed time: 03:30 EDW: 95 kg Access Type: Active (In Use):AVFistula-Standard/Left Upper Arm Pre Dialysis Vitals (for 07/12/2023 11:19 AM ) Pre BP (sit): 127/65 Pre Wt: 98.2 kg Temp: 97.3 F Post Dialysis Vitals (for 07/09/2023 2:57 PM ) Post BP (sit): 122/60 Post Wt: 94.6 kg Current Dialysis Vitals (for 07/12/2023 2:31 PM ) BP (sit): n/a AP(-) / MARKETING INFORMATION COORDINATOR: 224/201 Pulse: n/a Chairside data as of 07/12/2023 2:31 PM Last 3 Treatments 07/09/2023 07/07/2023 07/05/2023 EDW (kg) 95 95 95 Weight Pre (kg) 97.3 97.8 99.4 Weight Post (kg) 94.6 95 95.1 Dialytic Weight Loss (kg) -2.7 -2.8 -4.3 EDW Deviation (kg) -0.4 0 0.1 BP Sit Pre 138/68 117/62 131/64 BP Sit Post 122/60 106/49 111/59 UF Rate (mL/kg/hr) 8 8 13 Prescribed BFR 450 450 450 Average Delivered BFR 450 450 450 Prescribed Treatment Time 03:30 03:30 03:30 Actual Treatment Time 03:30 03:30 03:31 Last 3 Values 06/21/2023 05/24/2023 05/07/2023 Access Flow 1557 > 2000 > 2000 SEC ACCOUNTANT: López Mariano MD [address]ATION: [phone] SCHEDULE: -- 2nd Shift EDW: kg. DIALYZER: HD DURATION: NEEDLE SIZE: ANTICOAG: BATH: QB: ml/min QD: ml/min Subjective No new complaints. 07/11: She is doing well. NO symptoms during treatment. Stable dry weight. BP controlled. AVF working well, no new issues or concerns. Has new job that is starting [employer]. Advanced Practitioner Subjective AMPOULE EXAMINER 07/02/2023: Patient seen on dialysis. No new dialysis concerns. Denies SOB, chest pain, or dizziness. Has been getting to EDW. AVF functional; no reported issues. BP stable. Continue to challenge EDW. AMPOULE EXAMINER 05/21/2023: Spoke with patient at chairside. Feeling [...] of access: Fistula Send for fistulagram. 06/18/22 [facility]: outflow vein moderate stenosis s/p angioplasty with good success 05/2022: Fistulagram scheduled for pain surrounding access and collateral vessels -> appt 06/18/22 at [facility] scheduled for fistulagram Fistulagram 12/2020 patent and no stenosis. Working well now was of 02/2021 Anemia Assessment HEMOGLOBIN (G/DL) IN BLOOD g/dL 12.1 (07/07/23) 11.9 (06/30/23) 11.8 (06/23/23) 12.2 (06/16/23) 12.5 (06/09/23) PLATELETS 1000/mcL 195 (06/23/23) 201 (05/26/23) 220 [...] Encourage high-biological value protein intake. Potassium is above goal. Encourage low potassium diet. Bicarbonate is [...] at goal. Intact PTH is at goal. Centerless Grinder will adjust binders and vitamin D per protocol and continue to provide dietary education. Cardiovascular Assessment Blood pressures reviewed and are acceptable. Intradialytic weight gains are appropriate. Estimated dry weight is appropriate. Improved IDWG's Transplant Status: Patient is on transplant list. [facility] [place] [facility] Trans[place] at [place] as of Apr 2021 Possible living donors x2 possibly after she attended a graduation constitution party and two people expressed interest! Resuscitation Status Stable dialysis, no change in prescription López Mariano MD [ Signed And locked electronically On 07/12/2023 at 02:33:28 PM ] Transcribed: López Mariano ( 07/12/2023 ) documented in this encounter Plan of Treatment Not on file documented as of this encounter Visit Diagnoses Not on filedocumented in this encounter
--- OUTSIDE RECORDS SUMMARY | 2023-07-28 19:24 | XMS_ITS | Encounter Summary ---
Author Name Unknown Organization [facility] Address [address] [facility] [address] [place] [address] Care Team Providers Care Crude Oil Treater Name Role Phone Unavailable Primary Care Provider Unavailabl e Encounter Details Date Type Department Care Team Description 05/19/2023 Orders Only [facility] [place] [address] [place] [address] López Mariano MD [address] [place] [address] Social History Tobacco Use Types [...] Priority Date/Time Associated Diagnosis Comments HEMATOLOGY Routine 05/19/2023 documented in this encounter Results * HEMATOLOGY (05/19/2023) Hemoglobin 12.5 12.0 - 16.0 g/dL [facility] Hemoglobin x 3 37.5 36.0 - 48.0 % [facility] 05/19/2023 05/20/2023 5:5 1 AM TEXTILE STYLIST Narrative [facility] - 05/20/2023 Unless otherwise specified, test(s) performed at: [facility], [address] [place] [address], [place] [address] ASSISTANT COUNTY ATTORNEY: John Hernandez M.D., Ph.D For any questions, please call customer service at FREQUENCY:OTHER Resulting Agency Comment Specimen source: Blood López Mariano MD LAB BLOOD ORDERABLES [facility] documented in this encounter Visit Diagnoses Not on filedocumented in this encounter
--- OUTSIDE RECORDS SUMMARY | 2023-07-28 19:24 | XMS_ITS | Encounter Summary ---
Author Name Unknown Organization [facility] Address [address] [place] [address] Care Team Providers Care Seed Analyst Name Role Phone Unavailable Primary Care Provider Unavailabl e Encounter Details Date Type Department Care Team Description 05/21/2023 Treatment [facility] [address] [place] [address] Viji Chavez, PALOMO-INDEPENDENT CONTRACTOR [address] [place] [address] Social History Tobacco Use Types Packs/Day Years Used Date Smoking Tobacco: Never Assessed Sex and Gender Information Value Date Recorded Sex Assigned at Not on file Gender Identity Not on file Sexual Orientation Not on file documented as of this encounter Miscellaneous Notes * Dialysis Note - Viji Chavez APRN-CNP - 05/21/2023 10:56 AM COMPLAINT SUPERVISOR Date: May 21, 2023 Patient Name: Stephanie Norman : 1965 Chart #: [id number] Sex: F This patient was personally seen for a complete visit as part of routine monthly dialysis care. A review of the dialysis treatment, blood pressure, estimated dry weight and recent lab values was made. These were discussed with the patient and staff as necessary. Treatment Data for 05/19/2023 started at:11:26 AM Dialyzer: 180NRe Optiflux Na: 137 mEq/L Bicarb: 25 mEq/L Dialysate: 2.0 K, 2.5 Ca, 1.0 Mg, 100 Dextrose (G2251) Dialysate/Machine Temp (prescribed): 37 C Dialysate/Machine Temp (actual): 37.5 C BFR (prescribed): 450 BFR (actual): n/a Prescribed time: 03:30 EDW: 95 kg Access Type: AVFistula-Standard/Left Upper Arm Pre Dialysis Vitals (for 05/19/2023 11:18 AM ) Pre BP (sit): 160/60 Pre Wt: 96.1 kg Temp: 97.8 F Post Dialysis Vitals (for 05/19/2023 1:48 PM ) Post BP (sit): 134/56 Post Wt: 97.8 kg Chairside data as of 05/19/2023 1:48 PM Last 3 Treatments 05/19/2023 05/17/2023 05/14/2023 EDW (kg) 95 94.5 94.5 Weight Pre (kg) 96.1 98.7 96.8 Weight Post (kg) 97.8 94.7 94.7 Dialytic Weight Loss (kg) 1.7 -4 -2.1 EDW Deviation (kg) 2.8 0.2 0.2 BP Sit Pre 160/60 138/78 130/68 BP Sit Post 134/56 104/61 105/58 UF Rate (mL/kg/hr) -17 12 6 Prescribed BFR 450 450 450 Average Delivered BFR 450 450 450 Prescribed Treatment Time 03:30 03:30 03:30 Actual Treatment Time 01:04 03:27 03:33 Last 3 Values 05/07/2023 03/22/2023 02/26/2023 Access Flow > 2000 > 2000 > 2000 Treatment Medication Orders Medication Sig Start Date End Date Heparin Sodium (Porcine) 1,000 Units/mL Systemic 2000 units IVP Every Treatment 01/25/2023 01/24/2024 Heparin Sodium (Porcine) 1,000 Units/mL Systemic 4000 units IVP Every Treatment 01/25/2023 01/24/2024 Vitamin D (Calcitriol) Oral 0.75 mcg ORAL Every Treatment 04/28/2023 04/26/2024 SR. MANAGER MARKETING: López Mariano MD LOCATION: [phone] SCHEDULE: -W- 2nd Shift EDW: kg. DIALYZER: HD DURATION: NEEDLE SIZE: ANTICOAG: BATH: QB: ml/min QD: ml/min Subjective No new complaints. She is doing very well. She has no concerns. Ongoing intermittent restless legs toward end of treatment and stationary bike helps. Had COVID in house but she tested negative so far. Running in iso room out of precaution Advanced Practitioner Subjective COMPUTER REPAIR INSTRUCTOR 05/21/2023: Spoke with patient at chairside. Feeling [...] and collateral vessels -> appt 06/18/22 at [facility] scheduled for fistulagram Fistulagram 12/2020 patent and no stenosis. Working well now was of 02/2021 Anemia Assessment HEMOGLOBIN (G/DL) IN BLOOD g/dL 12.5 (05/19/23) 12.3 (05/12/23) 12.2 (05/05/23) 12.3 (04/28/23) 12.1 (04/21/23) PLATELETS 1000/mcL 220 (04/21/23) 211 (03/24/23) 190 [...] at goal. Intact PTH is at goal. Acetylene Cutter will adjust binders and vitamin D per protocol and continue to provide dietary education. Cardiovascular Assessment Blood pressures reviewed and are acceptable. Intradialytic weight gains are appropriate. Estimated dry weight is appropriate. IDWG's at times high, have discussed renal diet and fluid restriction. Doing well this week. Transplant Status: Patient is on transplant list. [facility] [place] Listed for Transplant at [place] as of Apr 2021 Possible living donors x2 possibly after she attended a graduation constitution party and two people expressed interest! Resuscitation Status Stable dialysis, no change in prescription VIJI CHAVEZ NP [ Signed And locked electronically On 05/21/2023 at 11:26:19 AM ] Transcribed: VIJI CHAVEZ ( 05/21/2023 ) documented in this encounter Plan of Treatment Not on file documented as of this encounter Visit Diagnoses Not on filedocumented in this encounter
--- OUTSIDE RECORDS SUMMARY | 2023-07-28 19:24 | XMS_ITS | Encounter Summary ---
Author Name Unknown Organization [facility] Address [address] [place] [address] Care Team Providers Care Print Line Inspector Name Role Phone Unavailable Primary Care Provider Unavailabl e Encounter Details Date Type Department Care Team Description 07/28/2023 Treatment [facility] [place] [address] [place] [address] Viji Chavez, PALOMO-AUTOMAT CAR ATTENDANT [address] [place] [address] Social History Tobacco Use Types Packs/Day Years Used Date Smoking Tobacco: Never Assessed Sex and Gender Information Value Date Recorded Sex Assigned at Not on file Gender Identity Not on file Sexual Orientation Not on file documented as of this encounter Miscellaneous Notes * Dialysis Note - Viji Chavez APRN-CNP - 07/28/2023 10:33 AM CDT Date: Jul 28, 2023 Patient Name: Stephanie Norman : 1965 Chart #: [id number] Sex: F This patient was personally seen for a complete visit as part of routine monthly dialysis care. A review of the dialysis treatment, blood pressure, estimated dry weight and recent lab values was made. These were discussed with the patient and staff as necessary. Treatment Data for 07/28/2023 started at:11:23 AM Dialyzer: 180NRe Optiflux Na: 137 mEq/L Bicarb: 25 mEq/L Dialysate: 2.0 K, 2.5 Ca, 1.0 Mg, 100 Dextrose (G2251) Dialysate/Machine Temp (prescribed): 37 C Dialysate/Machine Temp (actual): 37 C BFR (prescribed): 450 BFR (actual): 250 Prescribed time: 03:30 EDW: 95 kg Access Type: Active (In Use):AVFistula-Standard/Left Upper Arm Pre Dialysis Vitals (for 07/28/2023 11:14 AM ) Pre BP (sit): 132/55 Pre Wt: 98.5 kg Temp: 97.9 F Post Dialysis Vitals (for 07/26/2023 3:01 PM ) Post BP (sit): 103/50 Post Wt: 96 kg Current Dialysis Vitals (for 07/28/2023 11:23 AM ) BP (sit): 121/63 AP(-) / CAREER GUIDANCE COUNSELOR: 63/86 Pulse: 60 Chairside data as of 07/28/2023 11:23 AM Last 3 Treatments 07/26/2023 07/23/2023 07/21/2023 EDW (kg) 95 95 95 Weight Pre (kg) 99.7 98 98.1 Weight Post (kg) 96 94.8 95.2 Dialytic Weight Loss (kg) -3.7 -3.2 -2.9 EDW Deviation (kg) 1 -0.2 0.2 BP Sit Pre 138/64 124/70 117/64 BP Sit Post 103/50 152/59 105/56 UF Rate (mL/kg/hr) 11 10 10 Prescribed BFR 450 450 450 Average Delivered BFR 450 450 450 Prescribed Treatment Time 03:30 03:30 03:30 Actual Treatment Time 03:31 03:31 03:08 Last 3 Values 07/19/2023 06/21/2023 05/24/2023 Access Flow > 2000 1557 > 2000 Treatment Medication Orders Medication Sig Start Date End Date Heparin Sodium (Porcine) 1,000 Units/mL Systemic 2000 units IVP Every Treatment 01/25/2023 01/24/2024 Heparin Sodium (Porcine) 1,000 Units/mL Systemic 4000 units IVP Every Treatment 01/25/2023 01/24/2024 Vitamin D (Calcitriol) Oral 0.25 mcg ORAL Every Treatment During Dialysis 06/28/2023 06/26/2024 STRINGS TEACHER: López Mariano MD LOCATION: [facility] [place] [phone] SCHEDULE: -- 2nd Shift EDW: kg. DIALYZER: HD DURATION: NEEDLE SIZE: ANTICOAG: BATH: QB: ml/min QD: ml/min Subjective No new complaints. 07/11: She is doing well. NO symptoms during treatment. Stable dry weight. BP controlled. AVF working well, no new issues or concerns. Has new job that is starting July 27. Advanced Practitioner Subjective ROLLING MILL OPERATOR HELPER 07/28/2023: Spoke with patient at chairside. Doing well. Has pain in right hand for the past week; unsure what happened. Will try to go get xray after dialysis. Denies SOB, chest pain, cramping or dizziness. BP stable. AVF working well; no reported issues from staff. Getting to EDW. Continue planof care. No changes today. ROLLING MILL OPERATOR HELPER 07/02/2023: Patient seen on dialysis. No new dialysis concerns. Denies SOB, chest pain, or dizziness. Has been getting to EDW. AVF functional; no reported issues. BP stable. Continue to challenge EDW. Review of Systems None reported. Problem List [...] List Allergen Reaction Reaction Severity Onset Date Betadine Flushing (Red Skin) 07/21/2023 Mircera C/O Being Hot Mircera Unknown neomycin Skin rash PENICILLINS Skin rash Medications reviewed and no changes were made. Treatment and Adequacy Assessment BUN mg/dL 60 (07/21/23) 58 (06/23/23) 53 (05/26/23) 62 (04/21/23) 59 (03/24/23) UREA NITROGEN (MG/DL) IN SER/PLAS - POST DIALYSIS mg/dL 14 (07/21/23) 13 (06/23/23) 14 (05/26/23) 15 (04/21/23) 13 (03/24/23) URR % 77 (07/21/23) 78 (06/23/23) 74 (05/26/23) 76 (04/21/23) 78 (03/24/23) spKt/V Gotch 1.78 (07/21/23) 1.81 (06/23/23) 1.63 (05/26/23) 1.77 (04/21/23) 1.78 (03/24/23) eKdrt/V 1.47 (07/21/23) 1.53 (06/23/23) 1.38 (05/26/23) 1.5 (04/21/23) 1.51 (03/24/23) spKt/V (Daugirdas II) 1.6800 (07/21/23) 1.7300 (06/23/23) 1.5400 (05/26/23) 1.6800 (04/21/23) 1.7300 (03/24/23) Dialysis is adequate. Achieves prescribed time - Yes Achieves prescribed frequency - Yes Continue current prescription. Vascular Access Assessment Type of access: Fistula Send for fistulagram. [place] [facility] [place] vein moderate stenosis s/p angioplasty with good success 05/2022: Fistulagram scheduled for pain surrounding access and collateral vessels -> [place]18/22 [place] [facility] [place] Fistulagram 12/2020 patent and no stenosis. Working well now was of 02/2021 Anemia Assessment HEMOGLOBIN (G/DL) IN BLOOD g/dL 12.2 (07/21/23) 12.3 (07/14/23) 12.1 (07/07/23) 11.9 (06/30/23) 11.8 (06/23/23) PLATELETS 1000/mcL 219 (07/21/23) 195 (06/23/23) 201 (05/26/23) 220 (04/21/23) 211 (03/24/23) FERRITIN ng/mL 984 (05/26/23) 1269 (02/17/23) 1631 (01/20/23) 1134 (10/21/22) TRANSFERRIN SAT% % 25 (07/21/23) 22 (06/23/23) 24 (05/26/23) 21 (04/21/23) 28 (03/24/23) Hemoglobin is above goal. Iron Saturation is at goal. Ferritin is at goal. No FABIO therapy with Hgb >11 Nutritional and Metabolic Assessment ALBUMIN (G/DL) g/dL 4.3 (07/21/23) 4.2 (06/23/23) 4.2 (05/26/23) 4.1 (04/21/23) 4.5 (03/24/23) Sodium mEq/L 133 (07/21/23) 130 (06/23/23) 134 (05/26/23) 130 (04/21/23) 134 (03/24/23) POTASSIUM (MMOL/L) IN SER/PLAS mEq/L 5.6 (07/21/23) 5.8 (06/23/23) 5.3 (05/26/23) 5.4 (04/23/23) 4.7 (02/17/23) BICARBONATE (CO2) mEq/L 21 (07/21/23) 23 (06/23/23) 22 (05/26/23) 21 (04/21/23) 20 (03/24/23) 25 OH VITAMIN D ng/mL 16.4 (02/17/23) 23.3 (10/21/22) Albumin is at goal. Encourage high-biological value protein intake. Potassium is above goal. Encourage low potassium diet. Bicarbonate is at goal. Continue same bicarbonate in dialysate. Bone and Mineral Metabolism Assessment CALCIUM mg/dL 9.4 (07/21/23) 9.2 (06/23/23) 9.5 (05/26/23) 9.3 (04/21/23) 9.1 (03/24/23) CALCIUM (MG/DL) CORRECTED FOR ALBUMIN IN SER/PLAS mg/dL 9.2 (07/21/23) 9.0 (06/23/23) 9.3 (05/26/23) 9.2 (04/21/23) 8.7 (03/24/23) PHOSPHATE (MG/DL) IN SER/PLAS mg/dL 3.9 (07/21/23) 3.4 (06/23/23) 5.0 (05/26/23) 3.8 (04/21/23) 5.2 (03/24/23) CALCIUM PHOSPHORUS PRODUCT, COR 36 (07/21/23) 31 (06/23/23) 47 (05/26/23) 35 (04/21/23) 45 (03/24/23) IPTH pg/mL 208 (07/21/23) 154 (06/23/23) 143 (05/26/23) 216 (02/17/23) 233 (01/20/23) Corrected Calcium is at goal. Phosphorous is at goal. Intact PTH is at goal. Courtroom Clerk will adjust binders and vitamin D per protocol and continue to provide dietary education. Cardiovascular Assessment Blood pressures reviewed and are acceptable. Intradialytic weight gains are appropriate. Estimated dry weight is appropriate. Improved IDWG's Transplant Status: Patient is on transplant list. [place] [facility] [place] Listed for Transplant at [place] as of Apr 2021 Possible living donors x2 possibly after she attended a graduation constitution party and two people expressed interest! Resuscitation Status Stable dialysis, no change in prescription She will follow-up with hand pain VIJI CHAVEZ NP [ Signed And locked electronically On 07/28/2023 at 11:26:33 AM ] Transcribed: VIJI CHAVEZ ( 07/28/2023 ) documented in this encounter Plan of Treatment Not on file documented as of this encounter Visit Diagnoses Not on filedocumented in this encounter
--- OUTSIDE RECORDS SUMMARY | 2023-07-28 19:24 | XMS_ITS | Encounter Summary ---
Author Name Unknown Organization [facility] Address [address] [place] [address] Care Team Providers Care Rv Service Technician Name Role Phone Unavailable Primary Care Provider Unavailabl e Encounter Details Date Type Department Care Team Description 05/26/2023 Orders Only [facility] [place] [address] [place] [address] López Mariano MD [address] [place] [address] Social History Tobacco Use Types [...] Date/Time Associated Diagnosis Comments HD KINETICS Routine 05/26/2023 POST CHEMISTRY Routine 05/26/2023 HEMATOLOGY Routine 05/26/2023 CHEMISTRY Routine 05/26/2023 CHEMISTRY Routine 05/26/2023 [facility]RA [facility] LAB RESULTS Routine 05/26/2023 documented in this encounter Results * [facility] Lab Results (05/26/2023) spKt/V Gotch 1.63 [facility] eKdrt/V 1.38 [facility] nPCR_HD 0.99 [facility] PCR 53.45 [facility] eNPCR 0.91 [facility] eKt/V Gotch 1.38 [facility] WSTDKT/V 2.4 [facility] eKt/V ([place]) 1.32 [facility] spKt/V (Daugirdas II) 1.54 [facility] 05/26/2023 05/26/2023 [place] Ordering Provider LAB BLOOD ORDERABLE S Performing Organization Address [facility] Co de Phone Number [facility] * HD KINETICS (05/26/2023) % Urea Reduction 74 65 - 80 % [facility] 05/26/2023 05/27/2023 3:3 7 PM SCHEDULE ANALYST Narrative Resulting Agency Comment Specimen source: Plasma López Mariano MD LAB BLOOD ORDERABLES Performing Organization Address [facility] de Phone Number [facility] * POST CHEMISTRY (05/26/2023) BUN Post Dialysis 14 6 - 19 mg/dL [facility] 05/26/2023 05/27/2023 3:3 7 PM SCHEDULE ANALYST Narrative [facility] - 05/27/2023 Unless otherwise specified, test(s) performed at: [facility], [address] [place] [address], [place] [address] WATER QUALITY ASSISTANT: John Hernandez M.D., Ph.D For any questions, please call customer service at FREQUENCY:MONTHLY Resulting Agency Comment Specimen source: Plasma López Mariano MD LAB BLOOD ORDERABLES Performing Organization Address [facility] Co de Phone Number [facility] * (ABNORMAL) Spectrae Chemistry (05/26/2023) BUN 53(H) 6 - 19 mg/dL [facility] Creatinine 9.85(H) 0.60 - 1.30 mg/dL [facility] BUN/Creatinine Ratio 5.4(L) 10.0 - 20.0 [facility] Sodium 134(L) 136 - 145 mEq/L [facility] Potassium 5.3(H) 3.5 - 5.1 mEq/L [facility] Chloride 105 96 - 108 mEq/L [facility] Bicarbonate (CO2) 22 20 - 31 mEq/L [facility] Calcium 9.5 8.7 - 10.4 mg/dL [facility] Comment: Please note change in reference range. Corrected Calcium 9.3 8.7 - 10.4 mg/dL [facility] Comment: Corrected Calcium is not equivalent to measured Ionized Calcium. Phosphorus 5.0(H) 2.6 - 4.5 mg/dL [facility] Calcium Phosphorus Product 48 0 - 54 [facility] Calcium Phosporus Product, Cor 47 0 - 54 [facility] Alkaline Phosphatase 64 35 - 104 U/L [facility] Total Protein 7.1 6.0 - 8.5 g/dL [facility] Albumin 4.2 3.5 - 5.2 g/dL [facility] Globulin, Total 2.9 2.0 - 4.0 g/dL [facility] A/G Ratio 1.4 1.0 - 2.0 [facility] A [facility] Magnesium 2.5 1.6 - 2.6 mg/dL [facility] Ferritin 984(H) 10 - 291 ng/mL [facility] Iron 60 30 - 160 mcg/dL [facility] UIBC 186 155 - 355 mcg/dL [facility] TIBC 246 185 - 515 mcg/dL [facility] Iron Saturation (TSat) 24 20 - 55 % [facility] 05/26/2023 05/27/2023 7:1 4 PM SCHEDULE ANALYST Narrative [facility] - 05/27/2023 Unless otherwise specified, test(s) performed at: [facility], [address] [place] [address], [place] [address] WATER QUALITY ASSISTANT: John Hernandez M.D., Ph.D For any questions, please call customer service at FREQUENCY:MONTHLY Resulting Agency Comment Specimen source: Serum López Mariano MD LAB BLOOD ORDERABLES [facility] * (ABNORMAL) HEMATOLOGY (05/26/2023) Neutrophils 78.8(H) 40.0 - 75.0 % [facility] Lymphocytes Relative 12.9(L) 19.0 - 48.0 % [facility] Monocytes 4.2 3.0 - 10.0 % [facility] Eosinophils Relative 2.6 0.0 - 7.0 % [facility] Basophils Relative 0.7 0.0 - 1.5 % [facility] JESSICA 0.9 0.0 - 4.0 % [facility] WBC 8.27 4.80 - 10.80 1000/mcL [facility] RBC 3.59(L) 4.20 - 5.40 mill/mcL [facility] Hematocrit 37.2 37.0 - 47.0 % [facility] MCV 104(H) 80 - 100 fl [facility] MCH 33.3(H) 27.0 - 31.0 pg [facility] MCHC 32.1 30.0 - 36.0 g/dL [facility] RDW 13.2 11.5 - 14.5 % [facility] Hemoglobin 11.9(L) 12.0 - 16.0 g/dL [facility] Hemoglobin x 3 35.7(L) 36.0 - 48.0 % [facility] Platelets 201 130 - 400 1000/mcL [facility] 05/26/2023 05/27/2023 5:5 4 PM SCHEDULE ANALYST Narrative [facility] - 05/27/2023 Unless otherwise specified, test(s) performed at: [facility], [address] [place] [address], [place] [address] WATER QUALITY ASSISTANT: John Hernandez M.D., Ph.D For any questions, please call customer service at FREQUENCY:MONTHLY Resulting Agency Comment Specimen source: Blood López Mariano MD LAB BLOOD ORDERABLES [facility] * (ABNORMAL) Spectrae Chemistry (05/26/2023) PTH 143(H) 16 - 80 pg/mL [facility] 05/26/2023 05/27/2023 2:2 5 PM SCHEDULE ANALYST Narrative [facility] - 05/27/2023 Unless otherwise specified, test(s) performed at: [facility], [address] [place] [address], [place] [address] WATER QUALITY ASSISTANT: John Hernandez M.D., Ph.D For any questions, please call customer service at FREQUENCY:MONTHLY Resulting Agency Comment Specimen source: Plasma López Mariano MD LAB BLOOD ORDERABLES Performing Organization Address [facility] Co de Phone Number [facility] documented in this encounter Visit Diagnoses Not on filedocumented in this encounter
--- OUTSIDE RECORDS SUMMARY | 2023-07-28 19:24 | XMS_ITS | Encounter Summary ---
Author Name Unknown Organization [facility] Address [address] [place] [address] Care Team Providers Care Geological Manager Name Role Phone Unavailable Primary Care Provider Unavailabl e Encounter Details Date Type Department Care Team Description 04/23/2023 Treatment [facility] [address] [place] [address] Viji Chavez, PALOMO-EXPERIMENTAL AIRCRAFT MECHANIC [address] [place] [address] Social History Tobacco Use Types Packs/Day Years Used Date Smoking Tobacco: Never Assessed Sex and Gender Information Value Date Recorded Sex Assigned at Not on file Gender Identity Not on file Sexual Orientation Not on file documented as of this encounter Miscellaneous Notes * Dialysis Note - Viji Chavez APRN-CNP - 04/23/2023 11:17 AM BRANCH OPERATION EVALUATION MANAGER Date: Apr 23, 2023 Patient Name: Stephanie [place] : 1965 Chart #: [id number] Sex: F This patient was personally seen for a complete visit as part of routine monthly dialysis care. A review of the dialysis treatment, blood pressure, estimated dry weight and recent lab values was made. These were discussed with the patient and staff as necessary. Treatment Data for 04/21/2023 started at:11:38 AM Dialyzer: 180NRe Optiflux Na: 137 mEq/L Bicarb: 25 mEq/L Dialysate: 2.0 K, 2.5 Ca, 1.0 Mg, 100 Dextrose (G2251) Dialysate/Machine Temp (prescribed): 37 C Dialysate/Machine Temp (actual): 37.1 C BFR (prescribed): 450 BFR (actual): n/a Prescribed time: 03:30 EDW: 95.5 kg Access Type: AVFistula-Standard/Left Upper Arm Pre Dialysis Vitals (for 04/21/2023 11:18 AM ) Pre BP (sit): 134/71 Pre Wt: 99.6 kg Temp: 97.7 F Post Dialysis Vitals (for 04/21/2023 3:32 PM ) Post BP (sit): 109/60 Post Wt: 95.8 kg Chairside data as of 04/21/2023 3:32 PM Last 3 Treatments 04/21/2023 04/18/2023 04/16/2023 EDW (kg) 95.5 95.5 95.5 Weight Pre (kg) 99.6 98.3 98.2 Weight Post (kg) 95.8 95.9 95.3 Dialytic Weight Loss (kg) -3.8 -2.4 -2.9 EDW Deviation (kg) 0.3 0.4 -0.2 BP Sit Pre 134/71 135/75 112/51 BP Sit Post 109/60 104/53 119/60 UF Rate (mL/kg/hr) 11 7 9 Prescribed BFR 450 450 450 Average Delivered BFR 460 440 450 Prescribed Treatment Time 03:30 03:30 03:30 Actual Treatment Time 03:33 03:32 03:32 Last 3 Values 03/22/2023 02/26/2023 12/21/2022 Access Flow > 2000 > 1999 1282 Treatment Medication Orders Medication Sig Start Date End Date Heparin Sodium (Porcine) 1,000 Units/mL Systemic 2000 units IVP Every Treatment 01/25/2023 01/24/2024 Heparin Sodium (Porcine) 1,000 Units/mL Systemic 4000 units IVP Every Treatment 01/25/2023 01/24/2024 Vitamin D (Calcitriol) Oral 0.75 mcg ORAL Every Treatment 04/29/2022 04/28/2023 GASKET MAKER: López Mariano MD LOCATION: [phone] SCHEDULE: M-W-F 2nd Shift EDW: kg. DIALYZER: HD DURATION: NEEDLE SIZE: ANTICOAG: BATH: QB: ml/min QD: ml/min Subjective No new complaints. She is doing very well. She has no concerns. Denies CP, SOB, edema, cramps. AVF working well. Advanced Practitioner Subjective THREAD CUTTER TENDER 04/23/2023: Patient seen on dialysis. Denies SOB, chest pain, cramping or dizziness. BP stable. AVF working well; no reported issues from staff. Achieving EDW with recent runs. Continue plan of care. THREAD CUTTER TENDER 04/05/2023: Spoke with patient at chairside. Was [...] (02/17/23) 78 (01/25/23) 76 (12/23/22) spKt/V Gotch 1.78 (03/24/23) 1.81 (02/17/23) 1.84 (01/25/23) 1.66 (12/23/22) 1.81 (11/18/22) eKdrt/V 1.51 (03/24/23) 1.53 (02/17/23) 1.55 (01/25/23) 1.4 (12/23/22) 1.52 (11/18/22) spKt/V (Daugirdas II) 1.7300 (03/24/23) 1.7500 (02/17/23) 1.7700 (01/25/23) 1.6100 (12/23/22) 1.7500 (11/18/22) Dialysis is adequate. Achieves prescribed time - Yes Achieves prescribed frequency - Yes Continue current prescription. Vascular Access Assessment Type of access: Fistula Send for fistulagram. 06/18/22 MVSC: outflow vein moderate stenosis s/p angioplasty with good success 05/2022: Fistulagram scheduled for pain surrounding access and collateral vessels -> appt 06/18/22 at [facility] scheduled for fistulagram Fistulagram 12/2020 patent and no stenosis. Working well now was of 02/2021 Anemia Assessment HEMOGLOBIN (G/DL) IN BLOOD g/dL 12.1 (04/21/23) 11.7 (04/14/23) 11.9 (04/07/23) 11.8 (03/31/23) 12.3 (03/24/23) PLATELETS 1000/mcL 220 (04/21/23) 211 (03/24/23) 190 [...] 135 (12/23/22) POTASSIUM (MMOL/L) IN SER/PLAS mEq/L 4.7 (02/17/23) 4.9 (01/20/23) 4.6 (12/23/22) 4.6 (11/18/22) 5.7 (10/21/22) BICARBONATE (CO2) mEq/L 21 (04/21/23) 20 (03/24/23) [...] Phosphorous is above goal. Intact PTH is at goal. Behavioral Health Technician will adjust binders and vitamin D per protocol and continue to provide dietary education. Cardiovascular Assessment Blood pressures reviewed and are acceptable. Intradialytic weight gains are appropriate. Estimated dry weight is appropriate. IDWG's at times high, have discussed renal diet and fluid restriction. Doing well this week. Transplant Status: Patient is on transplant list. [facility] Listed for Transplant at [facility] as of Apr 2021 Possible living donors x2 possibly after she attended a graduation green party and two people expressed interest! Resuscitation Status Stable dialysis, no change in prescription VIJI CHAVEZ NP [ Signed And locked electronically On 04/23/2023 at 11:18:45 AM ] Transcribed: VIJI CHAVEZ ( 04/23/2023 ) documented in this encounter Plan of Treatment Not on file documented as of this encounter Visit Diagnoses Not on filedocumented in this encounter
--- OUTSIDE RECORDS SUMMARY | 2023-07-28 19:24 | XMS_ITS | Encounter Summary ---
Author Name Unknown Organization [facility] Address [address] [place] [address] Care Team Providers Care Instructional Services Librarian Name Role Phone Unavailable Primary Care Provider Unavailabl e Encounter Details Date Type Department Care Team Description 07/20/2023 Telephone [facility] [address] [place] [address] Joana Rudolph, RN [address] [place] [address] Social History Tobacco Use Types Packs/Day Years Used Date Smoking Tobacco: Never Assessed Sex and Gender Information Value Date Recorded Sex Assigned at Not on file Gender Identity Not on file Sexual Orientation Not on file documented as of this encounter Miscellaneous Notes * Telephone Encounter - Joana Rudolph RN - 07/20/2023 12:45 PM CDT Pt called to have Dr. Mariano change her work hours on her FMLA form. Advised that she needs to contact her dialysis unit. She voiced understanding. documented in this encounter Plan of Treatment Not on file documented as of this encounter Visit Diagnoses Not on filedocumented in this encounter
--- OUTSIDE RECORDS SUMMARY | 2023-07-28 19:25 | XMS_ITS | Encounter Summary ---
Author Name Unknown Organization [facility] Address [address] [place] [address] Care Team Providers Care Pantograph Engraver Name Role Phone Haylee Alanis APRN, CNP Primary Care Provide r Encounter Details Date Type Department Care Team (Late st Contact Info) Description 08/24/2013 Outside Hospital External to External, [place] [address] DISCHARGE SUMMARY Social History Tobacco Use Types Packs/Day Years Used Date Smoking Tobacco: Former Cigarettes Q uit: 02/23/2011 Smokeless Tobacco: Never Comments:Restarted 12/2005; p rior to that stopped for 8 months Alcohol Use Standard Drinks/Week Comments Yes 0.8 (1 standard drink = 0.6 oz p ure alcohol) rarely Sex and Gender Information Value Date Recorded Sex Assigned at Not on file Gender Identity Not on file Sexual Orientation Not on file documented as of this encounter Plan of Treatment Not on file documented as of this encounter Visit Diagnoses Not on filedocumented in this encounter Care Teams Pantograph Engraver Relationship Specialty Start Date End Date Haylee Alanis APRN, CNP [address] [place] [address] PCP - General Nurse Practitioner 02/04/16 documented as of this encounter
--- OUTSIDE RECORDS SUMMARY | 2023-07-28 19:25 | XMS_ITS | Encounter Summary ---
Author Name Unknown Organization [facility] Address [address] [place] [address] Care Team Providers Care Online Merchandising Coordinator Name Role Phone Haylee Alanis APRN, CNP Primary Care Provide r Encounter Details Date Type Department Care Team (Late st Contact Info) Description 03/31/2011 Correspondence External to External, [place] [address] [facility] SIGNATURE OF DELIVERY Social History Tobacco Use Types Packs/Day [...] on filedocumented in this encounter Care Teams Online Merchandising Coordinator Relationship Specialty Start Date End Date Haylee Alanis APRN, CNP [address] [place], [place] [address] PCP - General Nurse Practitioner 02/04/16 documented as of this encounter
--- OUTSIDE RECORDS SUMMARY | 2023-07-28 19:25 | XMS_ITS | Encounter Summary ---
Author Name Unknown Organization [facility] Address [address] [place] [address] Care Team Providers Care Restaurant Host Name Role Phone Haylee Alanis APRN, AMY Primary Care Provide r Encounter Details Date Type Department Care Team (Late st Contact Info) Description 04/17/2002 Office Visit [facility] [address] [place] [address] Tiffany Gonzalez APRN, [facility] [address] [place] [address] Social History Tobacco Use Types Packs/Day Years Used Date Smoking Tobacco: Never Assessed Sex and Gender Information Value Date Recorded Sex Assigned at Not on file Gender Identity Not on file Sexual Orientation Not on file documented as of this encounter Progress Notes * Tiffany Gonzalez - 04/17/2002 12:00 AM CSTCC: [...] in it. She does not have a iv technician that she regularly follows up with. New [...] ABNORMAL CREATININE LEVEL, POLYCYSTIC KIDNEY DISEASE cc: CIATE DESIGNER documented in this encounter Plan of Treatment Not on file documented as of this encounter Visit Diagnoses Not on filedocumented in this encounter Care Teams Restaurant Host Relationship Specialty Start Date End Date Haylee Alanis, [place], MOLD REPAIRER [address] [facility] [place] [address] PCP - General Nurse Practitioner 02/04/16 documented as of this encounter
--- OUTSIDE RECORDS SUMMARY | 2023-07-28 19:25 | XMS_ITS | Encounter Summary ---
Author Name Unknown Organization [facility] Address [address] [facility] [address] [place] [address] Care Team Providers Care Assembler Chassis Name Role Phone Unavailable Primary Care Provider Unavailabl e Encounter Details Date Type Department Care Team Description 04/21/2023 Orders Only [facility] [address] [place] [address] López Mariano MD [address] [place] [address] Social History Tobacco Use Types [...] Date/Time Associated Diagnosis Comments HD KINETICS Routine 04/21/2023 POST CHEMISTRY Routine 04/21/2023 HEMATOLOGY Routine 04/21/2023 CHEMISTRY Routine 04/21/2023 [facility] LAB RESULTS Routine 04/21/2023 documented in this encounter Results * [facility] Lab Results (04/21/2023) spKt/V Gotch 1.77 [facility] nPCR_HD 1.15 [facility] PCR 63.78 [facility] eKt/V ([place]) 1.44 [facility] eKt/V Gotch 1.50 [facility] WSTDKT/V 2.5 [facility] spKt/V (Daugirdas II) 1.68 [facility] eNPCR 1.07 [facility] eKdrt/V 1.50 [facility] 04/21/2023 04/21/2023 [place] Ordering Provider LAB BLOOD ORDERABLE S [facility] * HD KINETICS (04/21/2023) % Urea Reduction 76 65 - 80 % [facility] 04/21/2023 04/22/2023 4:5 7 AM MACARONI MAKER Narrative [facility] - 04/22/2023 Unless otherwise specified, test(s) performed at: [facility], [address] [place] [address], [place] [address] BUTT MAKER: John Hernandez M.D., Ph.D For any questions, please call customer service at FREQUENCY:MONTHLY Resulting Agency Comment Specimen source: Plasma López Mariano MD LAB BLOOD ORDERABLES [facility] * (ABNORMAL) [facility] Chemistry (04/21/2023) BUN 62(H) 6 - 19 mg/dL [facility] Creatinine 10.18(H) 0.60 - 1.30 mg/dL [facility] BUN/Creatinine Ratio 6.1(L) 10.0 - 20.0 [facility] Sodium 130(L) 136 - 145 mEq/L [facility] Chloride 98 96 - 108 mEq/L [facility] Bicarbonate (CO2) 21 20 - 31 mEq/L [facility] Calcium 9.3 8.7 - 10.4 mg/dL [facility] Comment: Please note change in reference range. Corrected Calcium 9.2 8.7 - 10.4 mg/dL [facility] Comment: Corrected Calcium is not equivalent to measured Ionized Calcium. Phosphorus 3.8 2.6 - 4.5 mg/dL [facility] Calcium Phosphorus Product 35 0 - 54 [facility] Calcium Phosporus Product, Cor 35 0 - 54 [facility] Total Protein 7.0 6.0 - 8.5 g/dL [facility] Albumin 4.1 3.5 - 5.2 g/dL [facility] Globulin, Total 2.9 2.0 - 4.0 g/dL [facility] A/G Ratio 1.4 1.0 - 2.0 [facility] A [facility] Iron 53 30 - 160 mcg/dL [facility] UIBC 198 155 - 355 mcg/dL [facility] TIBC 251 185 - 515 mcg/dL [facility] Iron Saturation (TSat) 21 20 - 55 % [facility] 04/21/2023 04/22/2023 5:0 8 AM MACARONI MAKER Narrative [facility] - 04/22/2023 Unless otherwise specified, test(s) performed at: [facility], [address] [place] [address], [place] [address] BUTT MAKER: John Hernandez M.D., Ph.D For any questions, please call customer service at FREQUENCY:MONTHLY Resulting Agency Comment Specimen source: Serum López Mariano MD LAB BLOOD ORDERABLES [facility] * POST CHEMISTRY (04/21/2023) BUN Post Dialysis 15 6 - 19 mg/dL [facility] 04/21/2023 04/22/2023 4:5 7 AM MACARONI MAKER Narrative [facility] - 04/22/2023 Unless otherwise specified, test(s) performed at: [facility], [address] [place] [address], [place] [address] BUTT MAKER: John Hernandez M.D., Ph.D For any questions, please call customer service at FREQUENCY:MONTHLY Resulting Agency Comment Specimen source: Plasma López Mariano MD LAB BLOOD ORDERABLES [facility] * (ABNORMAL) HEMATOLOGY (04/21/2023) Neutrophils 78.0(H) 40.0 - 75.0 % [facility] Lymphocytes Relative 11.9(L) 19.0 - 48.0 % [facility] Monocytes 4.0 3.0 - 10.0 % [facility] Eosinophils Relative 4.3 0.0 - 7.0 % [facility] Basophils Relative 0.6 0.0 - 1.5 % [facility] JESSICA 1.2 0.0 - 4.0 % [facility] WBC 8.15 4.80 - 10.80 1000/mcL [facility] RBC 3.50(L) 4.20 - 5.40 mill/mcL [facility] Hematocrit 35.1(L) 37.0 - 47.0 % [facility] MCV 100 80 - 100 fl [facility] MCH 34.6(H) 27.0 - 31.0 pg [facility] MCHC 34.5 30.0 - 36.0 g/dL [facility] RDW 13.1 11.5 - 14.5 % [facility] Hemoglobin 12.1 12.0 - 16.0 g/dL [facility] Hemoglobin x 3 36.3 36.0 - 48.0 % [facility] Platelets 220 130 - 400 1000/mcL [facility] 04/21/2023 04/22/2023 5:3 1 AM MACARONI MAKER Narrative [facility] - 04/22/2023 Unless otherwise specified, test(s) performed at: [facility], [address] [place] [address], [place] [address] BUTT MAKER: John Hernandez M.D., Ph.D For any questions, please call customer service at FREQUENCY:MONTHLY Resulting Agency Comment Specimen source: Blood López Mariano MD LAB BLOOD ORDERABLES [facility] documented in this encounter Visit Diagnoses Not on filedocumented in this encounter
--- OUTSIDE RECORDS SUMMARY | 2023-07-28 19:25 | XMS_ITS | Encounter Summary ---
Author Name Unknown Organization [facility] Address [address] [place] [address] Care Team Providers Care Secretary Of State Name Role Phone Haylee Alanis APRN, CNP Primary Care Provide r Encounter Details Date Type Department Care Team (Late st Contact Info) Description 10/26/2011 Correspondence None Inactive, Provider PAP EQUIPMENT PICK-UP TICKET Social History Tobacco Use Types [...] as of this encounter Progress Notes * Inactive, Provider - 10/26/2011 12:00 AM CDT documented in this encounter Plan of Treatment Not on file documented as of this encounter Visit Diagnoses Not on filedocumented in this encounter Care Teams Secretary Of State Relationship Specialty Start Date End Date Haylee Alanis APRN, CNP [address] [place], [place] [address] PCP - General Nurse Practitioner 02/04/16 documented as of this encounter
--- OUTSIDE RECORDS SUMMARY | 2023-07-28 19:25 | XMS_ITS | Encounter Summary ---
Author Name Unknown Organization [facility] Address [address] [place] [address] Care Team Providers Care Aircraft Magneto Mechanic Name Role Phone Haylee Alanis APRN, CNP Primary Care Provide r Encounter Details Date Type Department Care Team (Late st Contact Info) Description 01/02/2014 Consent for Procedure/Treatme nt [facility] INFORMED CONSENT RECORD Social History Tobacco Use Types Packs/Day Years Used Date Smoking Tobacco: Every Day Cigarettes Last attempted to quit: 02/23/2011 Smokeless Tobacco: Never Comments:1/2 pack per day Alcohol Use Standard Drinks/Week [...] on filedocumented in this encounter Care Teams Aircraft Magneto Mechanic Relationship Specialty Start Date End Date Haylee Alanis APRN, CNP [address] [address] PCP - General Nurse Practitioner 02/04/16 documented as of this encounter
--- OUTSIDE RECORDS SUMMARY | 2023-07-28 19:25 | XMS_ITS | Encounter Summary ---
Author Name Unknown Organization [facility] Address [address] [place] [address] Care Team Providers Care Rn Obgyn Name Role Phone Haylee Alanis APRN, CNP Primary Care Provide r Encounter Details Date Type Department Care Team (Latest Contact Info) Description 12/19/1996 Orders Only Soren Padilla MD [facility] [address] [place] [address] Social History Tobacco Use Types Packs/Day Years Used Date Smoking Tobacco: Never Assessed Sex and Gender Information Value Date Recorded Sex Assigned at Not on file Gender Identity Not on file Sexual Orientation Not on file documented as of this encounter Plan of Treatment Not on file documented as of this encounter Visit Diagnoses Not on filedocumented in this encounter Care Teams Rn Obgyn Relationship Specialty Start Date End Date Haylee Alanis APRN, CNP [address] [place] [address] PCP - General Nurse Practitioner 02/04/16 documented as of this encounter
--- OUTSIDE RECORDS SUMMARY | 2023-07-28 19:25 | XMS_ITS | Encounter Summary ---
Author Name Unknown Organization [facility] Address [address] [place] [address] Care Team Providers Care Lockstitch Hemmer Name Role Phone Haylee Alanis APRN, CNP Primary Care Provide r Encounter Details Date Type Department Care Team (Late st Contact Info) Description 08/23/2013 Outside Hospital External to External, [place] [address] HISTORY PHYSICAL Social History Tobacco Use Types Packs/Day Years [...] on filedocumented in this encounter Care Teams Lockstitch Hemmer Relationship Specialty Start Date End Date Haylee Alanis APRN, CNP [address] [place] [address] PCP - General Nurse Practitioner 02/04/16 documented as of this encounter
--- OUTSIDE RECORDS SUMMARY | 2023-07-28 19:25 | XMS_ITS | Encounter Summary ---
Author Name Unknown Organization [facility] Address [address] [place] [address] Care Team Providers Care Rn Relief Charge Name Role Phone Haylee Alanis APRN, CNP Primary Care Provide r Encounter Details Date Type Department Care Team (Late st Contact Info) Description 08/23/2013 Emergency Room External to External, [place] [address] RT SIDED FLANK AND BACK PAIN BLOOD IN URINE Social History Tobacco Use Types Packs/Day Years [...] filedocumented in this encounter Care Teams Rn Relief Charge Relationship Specialty Start Date End Date Haylee Alanis APRN, CNP [address] [place] [address] PCP - General Nurse Practitioner 02/04/16 documented as of this encounter
--- OUTSIDE RECORDS SUMMARY | 2023-07-28 19:25 | XMS_ITS | Encounter Summary ---
Author Name Unknown Organization [facility] Address [address] [place] [address] Care Team Providers Care Machine Plaster Mixer Name Role Phone Haylee Alanis APRN, CNP Primary Care Provide r Encounter Details Date Type Department Care Team (Latest Contact Info) Description 01/24/1997 Orders Only Tiffany Sandhu Cnp [...] on filedocumented in this encounter Care Teams Machine Plaster Mixer Relationship Specialty Start Date End Date Haylee Alanis APRN, CNP [address] [place] [address] PCP - General Nurse Practitioner 02/04/16 documented as of this encounter
--- OUTSIDE RECORDS SUMMARY | 2023-07-28 19:25 | XMS_ITS | Clinical Summary ---
Author Name Unknown Organization [facility] Address [address] [place] [address] Care Team Providers Care Private Tutors [employer] Teachers Name Role Phone Haylee Alanis APRN, CNP Primary Care Provide r Source Comments You are receiving this document as you are listed as the primary care provider,follow-up provider, or the patient has been referred to you for consultation.This is in compliance with the Medicare and[facility] EHR Incentive Program,which states Providers who transition their patient to another setting of careor provider of care or refers their patient to another provider of care shouldprovide summary care record for each transition of care or referral. [facility] [employer] Allergies Active Allergy Reactions Criticality Noted Date Comments Amoxicillin Neomycin 08/07/2002 topical sensitization Penicillins 08/06/2000 Medications Medication Sig Dispensed Refills Start Date End Date Status aspirin-acetaminophen -caffeine (EXCEDRIN MIGRAINE) 250-250-65 MG tablet Take 1 Tablet by mouth every 6 hours as needed. Active acetaminophen (TYLENOL) 500 MG tablet Take 1-2 Tablets (500-1,000 mg) by mouth every 4 hours as needed. Active beclomethasone (QVAR) 80 MCG/ACT inhaler Inhale 1 Puff by mouth two times a day. Rinse mouth after use 7.3 g 3 03/14/2012 Active omeprazole (PRILOSEC) 20 MG capsule Take 1 Cap by mouth daily. Take 1 hour before a meal. 90 Cap 3 03/14/2012 Active ALBUterol 2.5 mg/3 mL, 0.083%, nebulizer solutionIndications:A sthma with exacerbation, mild intermittent (HRC) Inhale 3 mL by mouth 4 times a day as needed for Wheezing or Shortness of Breath. 60 Each 6 06/24/2013 Active traZODone (AKA DESYREL) 50 MG tablet Take 1 Tab by mouth at bedtime as needed for Sleep. 90 Tab 3 06/24/2013 Active loratadine (CLARITIN) 10 MG tablet Take 1 Tablet (10 mg) by mouth daily at bedtime. Active ferrous gluconate (AKA FERGON) 324 (38 FE) MG tablet Take 1 Tab by mouth daily with breakfast. 100 Tab 12 09/26/2013 Active Additional Information Patient not taking.Reported on 02/04/2016 carvedilol (AKA COREG) 12.5 MG tablet Take 2 Tabs by mouth two times a day. 120 Tab 2 04/10/2014 Active lisinopril (AKA ZESTRIL) 20 MG tabletIndications:Uns pecified essential hypertension (HRC) Take 1 Tab by mouth two times a day. 180 Tab 0 09/04/2014 Active Additional Information Patient not taking.Reported on 01/08/2021 calcitriol (AKA ROCALTROL) 0.25 MCG capsuleIndications:Po lycystic kidney, unspecified type Take 1 Cap by mouth three times a week. 39 Cap 0 09/05/2014 Active citalopram (AKA CELEXA) 40 MG tablet Take 1 Tab by mouth daily. 90 Tab 3 09/03/2014 Active felodipine ER (AKA PLENDIL) 2.5 MG tablet Take 2.5 mg by mouth daily. Active calcium acetate (PHOSLO) 667 MG capsule Take 1 Cap by mouth two times a day with meals. 60 Cap 11 09/21/2014 Active Additional Information Patient not taking.Reported on 02/04/2016 simvastatin (AKA ZOCOR) 40 MG tablet Take 0.5 Tabs by mouth daily at bedtime. 45 Tab 2 06/28/2015 Active Additional Information Patient not taking.Reported on 01/08/2021 Multiple Vitamins-Iron (MULTIVITAMIN/IRON OR) Active tolvaptan (AKA SAMSCA) 15 MG tablet Take 60 mg by mouth daily. Take 3 tablets by mouth in the morning and 1 tablet in the evening Active atorvastatin (LIPITOR) 40 MG tablet Take 1 Tablet (40 mg) by mouth daily. 10/03/2020 Active B Brhwwth-E-Wlxrg Acid (USAMA CAPS) 1 MG Take 1 Capsule by mouth daily. 12/02/2020 Active esomeprazole (NEXIUM) 40 MG packet Take 20 mg by mouth. Active sevelamer carbonate (RENVELA) 800 MG tablet TAKE 2 TABLETS BY MOUTH THREE TIMES DAILY WITH MEALS AND 1 TABLET TWICE DAILY WITH SNACKS 11/05/2020 Active torsemide (DEMADEX) 20 MG tablet Take 2 Tablets (40 mg) by mouth daily. 11/04/2020 Active buPROPion (WELLBUTRIN XL) 150 MG 24 hour release tablet Take 1 Tablet (150 mg) by mouth every morning. 11/08/2021 Active sodium fluoride dental (PREVIDENT) 1.1 % gel Apply thin ribbon to teeth with toothbrush or mouthpiece tray for at least 1 minute. Spit out gel and rinse mouth thoroughly. 60 g 6 11/11/2021 Active Active Problems Problem Noted Date Diagnosed Date Other specified examination 01/08/2021 Encounter for immunization 05/14/2020 Atherosclerotic heart diseas e of [place] coronary artery without angina pectoris 04/24/2020 Acidosis 02/20/2019 Anemia in chronic kidney disease 02/20/2019 Cholecystitis, unspecified 02/20/2019 Secondary hyperparathyroidism of renal origin Essential (primary) hypertension 02/20/2019 End stage renal disease 02/19/2019 Polycystic kidney, unspecified 02/19/2019 Nicotine dependence 10/05/2018 Health examination of defined subpopulation 09/18 Stage 4 chronic kidney disease 10/08/2017 Other secondary hypertension 10/08/2017 Chronic kidney disease, stage IV (severe) 2013 Autosomal dominant polycystic kidney disease 03/2014 Family history of breast cancer in first degree relative 06/24/2013 Overview: Both parents with breast CA. DNA testing was negative for mutation of either BRCA1 or BRCA2 (2013 by ) Mild persistent asthma 08/28/2011 Obstructive sleep apnea 03/31/2011 Overview: Epic PMDD (premenstrual dysphoric disorder) 0 Hypercholesterolemia with hyperglyceridemia 06/17 Allergic rhinitis 10/22/2004 Overview: [facility] Reflux esophagitis 06/01/2003 Polycystic kidney 06/01/2003 Overview: [facility] Essential hypertension 06/01/2003 Overview: [facility] Varicella 12/20/1996 Overview: [facility] Resolved Problems Problem Noted Date Diagnosed Date Resolved Date Other tenosynovitis of hand and wrist 09/05/2012 06/24/2013 Tobacco use disorder 01/06/2008 012 Overview: February 23, 2011 Asthma 06/17/2005 08/28/2011 Tobacco use disorder 01/15/2005 007 Unspecified disorder of mens truation and other abnormal bleeding from female genital tract 02/18/2004 02/07/2010 Polyp of corpus uteri 02/18/20042010 Immunizations Name Administration Dates Next Due Flu Vac (3+ yrs) 03/14/2012, 1,01/28/2010,2008,03/08/2008,02/18/2006,04/15/2004 H1n1 Miv San[employer]i 3+ Yr (Injected) 05/14/2009 Influenza IIV4 (Quadrivalent ) 0.5mL (75536) 02/04/2016,12/21/2013 Influenza, Unspecified Formulation 01/24/1997 PPSV23 (Pneumovax) 02/04/2016 Td 12/19/1996 Td (7+ yrs) 2006 Tdap 05/18/2011 Varicella 12/20/1996(Deferred: Immune by Kaylin patel) Family History Medical History Relation Name Comments Cancer, Breast Father breast. Dx ag e 65. 2006. Cancer and Heart attack in mid - 60s. Cancer, Melanoma Father Kidney Disorder Father polycystic k idney disease Cancer, Breast Mother breast, Dx ag e 40. 4 yrs later. Depression Mother Depression Brother [...] Smoking Tobacco: Every Day Cigarettes 0.5 20 Started: 12/20/1990; Last attempted to quit: 12/20/2010 Smokeless Tobacco: Never Comments:1/2 pack per day Alcohol Use Standard Drinks/Week Comments Yes 1 (1 standard drink = 0.6 oz pur e alcohol) rarely Sex and Gender Information Value Date Recorded Sex Assigned at Not on file Gender Identity Not on file Sexual Orientation Not on file Last Filed Vital Signs Vital Sign Reading Time Taken Comments Blood Pressure 127/86 02/04/2016 1:35 PM CDT Pulse 63 12/03/2022 2:28 PM CDT Temperature 36.7 ??C (98 ??F) 01/18/2014 1:08 PM CDT Respiratory Rate 18 01/02/2014 1:43 PM CDT Oxygen Saturation 95% 01/02/2014 1:43 PM CDT Inhaled Oxygen Concentration - - Weight 106.2 kg (234 lb 3.2 oz) 02/04/2016 1:35 PM CDT Height 169.5 cm (5' 6.75) 02/04/2016 1:35 PM CD T Body Mass Index 36.96 02/04/2016 1:35 PM CDT Plan of Treatment Health Maintenance Due Date Last Done Comments Colon Cancer Screening Plan Due 1964 HIV Screening (Preventive Services) 1980 HepB (1) 1983 Cervical Cancer Screening Due 03/15/2012 03/14/2012, 03/14/2012, 07/05/2008, Additional history exists Zoster/Shingles (1 of 2) 2014 Adult Preventive Visit 06/24/2014 4, 03/14/2012, 12/27/2010, Additional history exists Mammogram 03/05/2017 03/05/2016, 04/20, 03/08/2012, Additional history exists Cholesterol 09/20/2019 09/19/2014, 11/2013, 03/14/2012, Additional history exists DTaP/Tdap/Td (2 - Tdap) 05/18/2021 05/18/19 12, 2006, 12/19/1996 COVID-19 Vaccine ( season) 2022 02/28/2021, 06/10/2020, 05/17/2020 Influenza (#1) 2022 01/23/2022, 01/17, 01/24/2020, Additional history exists Pneumococcal (3 - PPSV23 or PCV20) 2029 08/21/2020, 02/04/2016 Hep C Screening (Preventive Services) Completed 02/04/2016, 02/04/2016 (Completed) HepA Aged Out No longer eligi ble based on patient's age to complete this topic Hib Aged Out No longer eligi ble based on patient's age to complete this topic IPV (Polio) Aged Out No longer eligi ble based on patient's age to complete this topic MCV4 Aged Out No longer eligi ble based on patient's age to complete this topic Procedures Procedure Name Priority Date/Time Associated Diagnosis Comments MM MAMMOGRAM SCREENING BILAT W CAD Routine 03/05/2016 11:50 AM SERVICE CENTER TECHNICIAN HEPATITIS C ANTIBODY, WITH REFLEX Routine 02/04/2016 1:58 PM CDT LIPID PANEL & DIRECT LDL (IF NEEDED) Routine 09/19/2014 7:33 AM CDT Hypercholesterolemia with hyperglyceridemia PAP TEST, ROUTINE Routine 03/14/2012 12: 00 AM SERVICE CENTER TECHNICIAN Screening for cervical cancer from Last 3 Months or Most Recently Relevant to Health Maintenance Results * MM Mammogram Screening Bilat W CAD (03/05/2016 11:50 AM SERVICE CENTER TECHNICIAN) Anatomical Region Laterality Modality Breast Bilateral Mammography Impressions 03/06/2016 3:49 PM SERVICE CENTER TECHNICIAN : ACR BI-RADS Category 1: Negative RECOMMENDATION: Follow Up Imaging in 12 months - Bilateral The results and recommendations of this examination will be communicated to the patient. Narrative 03/06/2016 3:49 PM SERVICE CENTER TECHNICIAN MM MAMMOGRAM SCREENING BILAT W CAD performed on 03/05/16 Compared to: 05/15/2014 MAMMOGRAM SCREENING BILATERAL, 03/08/2012 MAMMOGRAM SCREENING BILATERAL, 02/26/2011 MAMMOGRAM SCREENING BILATERAL FINDINGS: Bilateral screening mammogram was performed with the assistance of Computer-Aided Detection. The breasts have scattered areas of fibroglandular density. There is no radiographic evidence of malignancy. ?? Haylee Alanis APRN, CNP RAD AYANNA * Hepatitis C Antibody, with Reflex (02/04/2016 1:58 PM CDT) Anti-HCV Negative (Non Reactive) NEGNR [facility] Comment: Antibodies to HCV not detected. Does not exclude the possibility of exposure to HCV. 02/04/2016 1:58 PM CDT 02/05/2016 3:46 PM CDT Narrative [facility] - 02/05/2016 6:04 PM CDT Performed at [facility], [address] [place] [address] ??[phone] Haylee Alanis APRN, CNP LAB_1 Performing Organization Address [facility] Co de Phone Number [facility] [phone] * LIPID PANEL AND DIRECT LDL(IF NEEDED) (09/19/2014 7:33 AM CDT) Hours Fasting 10 hours [facility] Cholesterol 172 0 - 199 mg/dl [facility] Triglyceride 141 0 - 149 mg/dl [facility] HDL 42 >40 mg/dl [facility] LDL, Calc. 102 0 - 129 mg/dl [facility] Non HDL Chol, Calc 130 mg/dl [facility] 09/19/2014 7:33 AM CDT 09/19/2014 7:37 AM CDT Narrative [facility] - 09/19/2014 1:07 PM CDT Performed at [facility], [address] [place] [address] ??[id number] Tiffany Gonzalez APRN, GAIL LAB_1 Performing Organization Address [facility] Co de Phone Number [facility] [phone] * PAP TEST, ROUTINE (03/14/2012 12:00 AM SERVICE CENTER TECHNICIAN) Cytology, Pap (NOTE) Nephrology Nurse Cytology Report Patient Name: STEPHANIE NORMAN Taken: 03/14/2012 Received: 03/16/2012 Reported: 03/29/2012 Physician(s): Tiffany Gonzalez ?Source of Specimen Liquid routine Pap, cervical/endocervi barry: ?Specimen Adequacy ?Satisfactory for evaluation. ??Endocervical component present. ? Final Cytologic Interpretation/Res ult NEGATIVE FOR INTRAEPITHELIAL LESION OR MALIGNANCY (NILM) ?Other Cytologic Findings Endometrial cells present RECOMMEND clinical correlation Endometrial cells after age 40, particularly out of phase or after menopause, may be associated with benign endometrium, hormonal alterations and less commonly, endometrial/uterin e abnormalities. ?Inflammation Electronically Signed Out By Lotus Moreno ??CT (ASCP) Lotus Moreno ??CT (ASCP) ? Pap Smear History Date of Last Menstrual Period: 03/06/2012 ?? Microscopic Description Microscopic examination is performed. [facility] [address] [place] [address] ??[id number] [employer] 03/14/2012 03/16/2012 10: 29 AM SERVICE CENTER TECHNICIAN Tiffany Gonzalez MARINE PIPEFITTER HELPER, DNP LAB_1 Performing Organization Address City/[facility] Co de Phone Number [employer] [address] [phone] from Last 3 Months or Most Recently Relevant to Health Maintenance Advance Directives * Full Code (Latest Code Status on File) Date Activated Date Inactivated Comments 01/02/2014 10:34 AM 01/02/2014 6:13 PM Care Teams Private T[employer] Relationship Specialty Start Date End Date Haylee Alanis, MARINE PIPEFITTER HELPER, PLUM PACKER [address] [place] [address] PCP - General Nurse Practitioner 02/04/16
== END 2023-07-28 19:21 | disposition home or self-care (01) ==
LOC: NFLDUCREF 19:21
PROVIDERS: PCP Physician Assistant Medical; Visit Provider Nurse Practitioner Family
DX: M79.641 Pain in right hand (principal)
CPT/HCPCS: 84550

== ENCOUNTER 2023-10-17 02:24 | Emergency (ER) | payer BC, SELFPAY ==
[2023-10-17 02:30] VITALS: BP 113/68; PULSE 78; RESP 20; TEMP 36.7; O2SAT 99; BMI 33.7
--- NOTE | 2023-10-17 02:36 | ED.GENADULT ---
HPI - General Adult General Chief complaint: Neck Injury/Pain Stated complaint: neck pain Time Seen by Provider: 10/17/23 02:36 History of Present Illness HPI narrative: Patient is a 58-year-old woman who was been having progressive left-sided neck pain for last several weeks. She comes in tonight with worsening her symptoms. The pain is in the paraspinal muscles on the left. She has no radiculopathy no fevers no chills no night sweats no numbness no tingling. She has had no recent trauma. Pain is 6/10 and unremitting has failed Tylenol treatment. Related Data Home Medications ?Medication ?Instructions ?Recorded ?Confirmed atorvastatin 40 mg tablet 40 mg PO DAILY 12/28/21 10/17/23 bupropion HCl 150 mg 24 hr tablet, 150 mg PO DAILY 12/28/21 10/17/23 extended release calcitriol 0.25 mcg capsule 0.25 mcg PO DAILY 12/28/21 10/17/23 carvedilol 12.5 mg tablet 12.5 mg PO BID 12/28/21 10/17/23 citalopram 20 mg tablet 20 mg PO HS 12/28/21 10/17/23 pramipexole 0.25 mg tablet 0.25 mg PO BID 12/28/21 10/17/23 sevelamer carbonate 800 mg tablet 800 mg PO DIRECTED 12/28/21 10/17/23 torsemide 20 mg tablet 20 mg PO DAILY 12/28/21 10/17/23 alprazolam 1 mg tablet 1 mg PO DAILY PRN 10/17/23 10/17/23 Previous Rx's ?Medication ?Instructions ?Recorded ketorolac 0.4 % eye drops 1 drp ophthalmic (eye) QID #5 mL 12/28/21 Allergies Allergy/AdvReac Type Severity Reaction Status Date / Time Penicillins Allergy Rash Verified 10/17/23 02:35 mercera(?) iron Allergy Uncoded 07/28/23 18:46 Review of Systems Status of ROS: Reports: 10 or more systems reviewed and unremarkable except as noted in History and below [facility] Social History Smoking Status: Current every day smoker How often do you have a drink containing alcohol: monthly or less AUDIT-C Alcohol total score: 1 Non-prescribed substance use: denies use Exam Narrative: Exam Narrative: EXAM GENERAL: Patient appears comfortable and well. EYES: No scleral icterus. LYMPH: No supraclavicular or cervical lymphadenopathy. SKIN: Visible skin seen during exam normal or with benign process only. EXT: No dependent lower extremity pedal edema. HEART: Regular rate and rhythm with no murmurs, rubs, or gallops. LUNGS: Clear to auscultation bilaterally with no crackles or wheezes. ABD: Soft, non tender, non distended. PSYCH: Good eye contact, speech is not pressured. Const: Vital Signs, click to edit/add: Vital Signs - 24 hr 10/17/23 02:30 Temperature 98.0 F Pulse Rate [Right Pulse Oximeter] 78 Respiratory Rate 20 Blood Pressure [Ri ght Upper Arm] 113/68 Pulse Oximetry 99 Oxygen Delivery Me thod Room Air Course Course ED Course: Patient seen and examined. Vital Signs Vital signs: Initial Vital Signs Temperature 98.0 F 10/17/23 02:30 Temperature Source Temporal Artery Scan 10/17/23 02:30 Pulse Rate 78 10/17/23 02:30 Respiratory Rate 20 10/17/23 02:30 Blood Pressure 113/68 10/17/23 02:30 Blood Pressure Mean 83 10/17/23 02:30 Blood Pressure Position Sitting 10/17/23 02:30 Pulse Oximetry 99 10/17/23 02:30 Oxygen Delivery Method Room Air 10/17/23 02:30 Vital Signs Temperature 98.0 F 10/17/23 02:30 Pulse Rate 78 10/17/23 02:30 Respiratory Rate 20 10/17/23 02:30 Blood Pressure 113/68 10/17/23 02:30 Pulse Oximetry 99 10/17/23 02:30 Oxygen Delivery Method Room Air 10/17/23 02:30 Temperature 98.0 F 10/17/23 02:30 Pulse Rate 78 10/17/23 02:30 Respiratory Rate 20 10/17/23 02:30 Blood Pressure 113/68 10/17/23 02:30 Pulse Oximetry 99 10/17/23 02:30 Oxygen Delivery Method Room Air 10/17/23 02:30 Medical Decision Making MDM Narrative Medical decision making narrative: Patient presents with acute on chronic left-sided neck pain. I do not believe further imaging is indicated. Differential diagnosis includes but not limited to neck strain neck fracture radicular pain infection. This time will treat her for strain with a short course of prednisone 20 mg b.i.d. as well as Tylenol continued ice and follow-up with her doctor with previously scheduled appointment in 2 days. Discharge Plan Discharge Clinical Impression: Strain of neck muscle Patient Disposition: Home, Self-Care Condition: Stable Instructions: Cervical Strain (ED) Additional Instructions: Prednisone as directed Tylenol as directed Ice Follow-up as discussed. Activity Level: No Restrictions Discharge Diet: Regular Prescriptions: No Action atorvastatin 40 mg tablet 40 mg PO DAILY Patient Comments: TAKE 1 TABLET BY MOUTH EVERY DAY carvedilol 12.5 mg tablet 12.5 mg PO BID Patient Comments: TAKE 1 TABLET BY MOUTH TWICE A DAY torsemide 20 mg tablet 20 mg PO DAILY Patient Comments: TAKE 2 TABLETS BY MOUTH ONCE DAILY. citalopram 20 mg tablet 20 mg PO HS pramipexole 0.25 mg tablet 0.25 mg PO BID Patient Comments: TAKE 1 TABLET BY MOUTH EVERYDAY AT BEDTIME calcitriol 0.25 mcg capsule 0.25 mcg PO DAILY Patient Comments: Take 1 capsule by mouth once a day bupropion HCl 150 mg tablet extended release 24 hr 150 mg PO DAILY Patient Comments: TAKE 1 TABLET BY MOUTH EVERY MORNING sevelamer carbonate 800 mg tablet 800 mg PO DIRECTED Patient Comments: TAKE 2 TABLETS BY MOUTH THREE TIMES DAILY WITH MEALS AND 1 TABLET TWICE DAILY WITH SNACKS ketorolac 0.4 % drops 1 drp ophthalmic (eye) QID Qty: 5 0RF alprazolam 1 mg tablet 1 mg PO DAILY PRN Follow Up/Referrals: Lesli Sharif PA-C [Referring] - Stand [facility]one [facility] Instructions
--- OUTSIDE RECORDS SUMMARY | 2023-10-17 02:39 | XMS_ITS | Encounter Summary ---
Author Organization [facility] Address [address] [place] [address] Care Team Providers Care Voltage Inspector Name Role Phone Unavailable Primary Care Provider Unavailabl e Encounter Details Date Type Department Care Team (Late st Contact Info) Description 09/17/2023 Treatment [facility] [place] [address] [place] [address] Viji Chavez, AS400 OPERATOR-LOADER SEMICONDUCTOR DIES [address] [place] [phone] Social History Tobacco Use Types Packs/Day Years Used Date Smoking Tobacco: Never Assessed Sex and Gender Information Value Date Recorded Sex Assigned at Not on file Gender Identity Not on file Sexual Orientation Not on file documented as of this encounter Miscellaneous Notes * Dialysis Note - Viji Chavez APRN-CNP - 09/17/2023 9:31 AM CDT Date: September 17, 2023 Patient Name: Stephanie Norman : 1965 Chart #: [id number] Sex: F This patient was personally seen for a complete visit as part of routine monthly dialysis care. A review of the dialysis treatment, blood pressure, estimated dry weight and recent lab values was made. These were discussed with the patient and staff as necessary. Treatment Data for 09/17/2023 started at:11:24 AM Dialyzer: 180NRe Optiflux Na: 137 mEq/L Bicarb: 25 mEq/L Dialysate: 2.0 K, 2.5 Ca, 1.0 Mg, 100 Dextrose (G2251) Dialysate/Machine Temp (prescribed): 37 C Dialysate/Machine Temp (actual): 37.4 C BFR (prescribed): 450 BFR (actual): 350 Prescribed time: 03:30 EDW: 96.5 kg Access Type: Active (In Use):AVFistula-Standard/Left Upper Arm Pre Dialysis Vitals (for 09/17/2023 11:14 AM ) Pre BP (sit): 118/66 Pre Wt: 99.7 kg Temp: 98.1 F Post Dialysis Vitals (for 09/15/2023 3:04 PM ) Post BP (sit): 117/55 Post Wt: 97.3 kg Current Dialysis Vitals (for 09/17/2023 11:25 AM ) BP (sit): 108/44 AP(-) / DIESEL ENGINE SPECIALIST: 131/67 Pulse: 63 Chairside data as of 09/17/2023 11:25 AM Last 3 Treatments 09/15/2023 09/13/2023 09/10/2023 EDW (kg) 96.5 96.5 96.5 Weight Pre (kg) 100.3 99.6 99.5 Weight Post (kg) 97.3 97.3 96.6 Dialytic Weight Loss (kg) -3 -2.3 -2.9 EDW Deviation (kg) 0.8 0.8 0.1 BP Sit Pre 109/66 130/68 114/56 BP Sit Post 117/55 110/57 108/55 UF Rate (mL/kg/hr) 9 7 9 Prescribed BFR 450 450 450 Average Delivered BFR 450 440 450 Prescribed Treatment Time 03:30 03:30 03:30 Actual Treatment Time 03:34 03:17 03:21 Last 3 Values 09/01/2023 08/30/2023 08/20/2023 Access Flow [id number] [id number] > 2000 Treatment Medication Orders Medication Sig Start Date End Date Heparin Sodium (Porcine) 1,000 Units/mL Systemic 2000 units IVP Every Treatment 01/25/2023 01/24/2024 Heparin Sodium (Porcine) 1,000 Units/mL Systemic 4000 units IVP Every Treatment 01/25/2023 01/24/2024 Vitamin D (Calcitriol) Oral 0.25 mcg ORAL Every Treatment During Dialysis 06/28/2023 06/26/2024 NETWORK SECURITY ARCHITECT: López Mariano MD LOCATION: [phone] SCHEDULE: - 2nd Shift EDW: kg. DIALYZER: HD DURATION: NEEDLE SIZE: ANTICOAG: BATH: QB: ml/min QD: ml/min Subjective No new complaints. 08/30/23: Stephanie is doing very well. She had fistulagram after she had spurting blood from her access site. She had two stenoses with intervention done she says - I have not yet seen the report. She feels excellent, no bleeding from her AVF site anymore, labs are excellent and she has no new symptoms or concerns. Advanced Practitioner Subjective POUNCER MACHINE 09/17/2023: Patient seen on dialysis. No new dialysis concerns. Having hip pain after raking in yard. Scheduled for MRI in a couple weeks. Denies SOB, chest pain, or dizziness. Has [...] day. At bedtime and before dialysis 04/22/2022 Renvela (sevelamer carbonate) 800 mg tablet Take [...] made. Treatment and Adequacy Assessment BUN mg/dL 66 (08/18/23) 60 (07/21/23) 58 (06/23/23) 53 (05/26/23) 62 (04/21/23) UREA NITROGEN (MG/DL) IN SER/PLAS - POST DIALYSIS mg/dL 18 (08/18/23) 14 (07/21/23) 13 (06/23/23) 14 (05/26/23) 15 (04/21/23) URR % 73 (08/18/23) 77 (07/21/23) 78 (06/23/23) 74 (05/26/23) 76 (04/21/23) spKt/V Gotch 1.62 (08/18/23) 1.78 (07/21/23) 1.81 (06/23/23) 1.63 (05/26/23) 1.77 (04/21/23) eKdrt/V 1.37 (08/18/23) 1.47 (07/21/23) 1.53 (06/23/23) 1.38 (05/26/23) 1.5 (04/21/23) spKt/V (Daugirdas II) 1.5400 (08/18/23) 1.6800 (07/21/23) 1.7300 (06/23/23) 1.5400 (05/26/23) 1.6800 (04/21/23) Dialysis is adequate. Achieves prescribed time - Yes Achieves prescribed frequency - Yes Continue current prescription. Vascular Access Assessment Type of access: Fistula Send for fistulagram. 08/2023: two stenoses with intervention done 06/18/22 [facility] [place] vein moderate stenosis s/p angioplasty with good success 05/2022: Fistulagram scheduled for pain surrounding access and collateral vessels -> appt 06/18/22 [place] [facility] [place] Fistulagram 12/2020 patent and no stenosis. Working well now was of 02/2021 Anemia Assessment HEMOGLOBIN (G/DL) IN BLOOD g/dL 11.8 (09/15/23) 12.1 (09/08/23) 11.6 (09/01/23) 11.8 (08/18/23) 11.7 (08/11/23) PLATELETS 1000/mcL 199 (08/18/23) 219 (07/21/23) 195 (06/23/23) 201 (05/26/23) 220 (04/21/23) FERRITIN ng/mL 652 (08/18/23) 984 (05/26/23) 1269 (02/17/23) 1631 (01/20/23) 1134 (10/21/22) TRANSFERRIN SAT% % 30 (08/18/23) 25 (07/21/23) 22 (06/23/23) 24 (05/26/23) 21 (04/21/23) Hemoglobin is above goal. Iron Saturation is at goal. Ferritin is at goal. No FABIO therapy with Hgb >11 Nutritional and Metabolic Assessment ALBUMIN (G/DL) g/dL 4.2 (08/18/23) 4.3 (07/21/23) 4.2 (06/23/23) 4.2 (05/26/23) 4.1 (04/21/23) Sodium mEq/L 136 (08/18/23) 133 (07/21/23) 130 (06/23/23) 134 (05/26/23) 130 (04/21/23) POTASSIUM (MMOL/L) IN SER/PLAS mEq/L 5.1 (08/18/23) 5.6 (07/21/23) 5.8 (06/23/23) 5.3 (05/26/23) 5.4 (04/23/23) BICARBONATE (CO2) mEq/L 21 (08/18/23) 21 (07/21/23) 23 (06/23/23) 22 (05/26/23) 21 (04/21/23) 25 OH VITAMIN D ng/mL 16.4 (02/17/23) 23.3 (10/21/22) Albumin is at goal. Encourage high-biological value protein intake. Potassium is at goal. Encourage low potassium diet. Bicarbonate is at goal. Continue same bicarbonate in dialysate. Bone and Mineral Metabolism Assessment CALCIUM mg/dL 9.6 (08/18/23) 9.4 (07/21/23) 9.2 (06/23/23) 9.5 (05/26/23) 9.3 (04/21/23) CALCIUM (MG/DL) CORRECTED FOR ALBUMIN IN SER/PLAS mg/dL 9.4 (08/18/23) 9.2 (07/21/23) 9.0 (06/23/23) 9.3 (05/26/23) 9.2 (04/21/23) PHOSPHATE (MG/DL) IN SER/PLAS mg/dL 3.0 (08/18/23) 3.9 (07/21/23) 3.4 (06/23/23) 5.0 (05/26/23) 3.8 (04/21/23) CALCIUM PHOSPHORUS PRODUCT, COR 28 (08/18/23) 36 (07/21/23) 31 (06/23/23) 47 (05/26/23) 35 (04/21/23) IPTH pg/mL 247 (08/18/23) 208 (07/21/23) 154 (06/23/23) 143 (05/26/23) 216 (02/17/23) Corrected Calcium is at goal. Phosphorous is at goal. Intact PTH is at goal. Dialysis Tech will adjust binders and vitamin D per protocol and continue to provide dietary education. Cardiovascular Assessment Blood pressures reviewed and are acceptable. Intradialytic weight gains are appropriate. Estimated dry weight is appropriate. Transplant Status: Patient is on transplant list. [facility] [place] Listed for Transplant at [place] as of Apr 2021 Possible living donors x2 possibly after she attended a graduation republican and two people expressed interest! Resuscitation Status Stable dialysis Hip pain; getting MRI No change in prescription VIJI CHAVEZ NP [ Signed And locked electronically On 09/17/2023 at 11:46:13 AM ] Transcribed: VIJI CHAVEZ ( 09/17/2023 ) documented in this encounter Plan of Treatment Not on file documented as of this encounter Visit Diagnoses Not on filedocumented in this encounter
--- OUTSIDE RECORDS SUMMARY | 2023-10-17 02:39 | XMS_ITS | Encounter Summary ---
Author Organization [facility] Address [address] [place] [address] Care Team Providers Care Eating Disorder Psychologist Name Role Phone Unavailable Primary Care Provider Unavailabl e Encounter Details Date Type Department Care Team (Late st Contact Info) Description 10/06/2023 Orders Only [facility] [address] [place] [address] López Mariano MD [address] [place] [address] Social History Tobacco Use Types [...] Priority Date/Time Associated Diagnosis Comments HEMATOLOGY Routine 10/06/2023 documented in this encounter Results * (ABNORMAL) HEMATOLOGY (10/06/2023) Hemoglobin 11.9(L) 12.0 - 16.0 g/dL [facility] Hemoglobin x 3 35.7(L) 36.0 - 48.0 % [facility] 10/06/2023 10/08/2023 11: 01 AM CDT Narrative [facility] - 10/08/2023 Unless otherwise specified, test(s) performed at: [facility], [address] [place] [address], [place] [address] ORIENTAL MEDICINE PRACTITIONER: John Hernandez M.D., Ph.D For any questions, please call customer service at FREQUENCY:OTHER Resulting Agency Comment Specimen source: Blood López Mariano MD LAB BLOOD ORDERABLES [facility] See order comments or contact performing lab Unknown, [place] documented in this encounter Visit Diagnoses Not on filedocumented in this encounter
--- OUTSIDE RECORDS SUMMARY | 2023-10-17 02:39 | XMS_ITS | Encounter Summary ---
Author Organization [facility] Address [address] [place] [address] Care Team Providers Care Treating Machine Operator Name Role Phone Unavailable Primary Care Provider Unavailabl e Encounter Details Date Type Department Care Team (Late st Contact Info) Description 10/13/2023 Orders Only [facility] [place] [address] [place] [address] López Mariano MD [address] [place] [address] Social History Tobacco Use Types [...] Priority Date/Time Associated Diagnosis Comments HEMATOLOGY Routine 10/13/2023 documented in this encounter Results * (ABNORMAL) HEMATOLOGY (10/13/2023) Hemoglobin 11.8(L) 12.0 - 16.0 g/dL [facility] Hemoglobin x 3 35.4(L) 36.0 - 48.0 % [facility] 10/13/2023 10/14/2023 9:5 9 AM CDT Narrative [facility] - 10/14/2023 Unless otherwise specified, test(s) performed at: [facility], [address] [place] [id number] PLANT BIOLOGY PROFESSOR: John Hernandez M.D., Ph.D For any questions, please call customer service at FREQUENCY:OTHER Resulting Agency Comment Specimen source: Blood López Mariano MD LAB BLOOD ORDERABLES [facility] See order comments or contact performing lab Unknown, [place] documented in this encounter Visit Diagnoses Not on filedocumented in this encounter
--- OUTSIDE RECORDS SUMMARY | 2023-10-17 02:39 | XMS_ITS | Encounter Summary ---
Author Organization [facility] Address [address] [place] [address] Care Team Providers Care Foam Fabricator Name Role Phone Unavailable Primary Care Provider Unavailabl e Encounter Details Date Type Department Care Team (Late st Contact Info) Description 09/29/2023 Orders Only [facility] [place] [address] [place] [address] López Mariano MD [address] [place] [address] Social History Tobacco Use Types [...] Priority Date/Time Associated Diagnosis Comments HEMATOLOGY Routine 09/29/2023 documented in this encounter Results * (ABNORMAL) HEMATOLOGY (09/29/2023) Hemoglobin 11.9(L) 12.0 - 16.0 g/dL [facility] Hemoglobin x 3 35.7(L) 36.0 - 48.0 % [facility] 09/29/2023 09/30/2023 11: 25 AM CDT Narrative [facility] - 09/30/2023 Unless otherwise specified, test(s) performed at: [facility], [address] [place] [address], [place] [address] CORRUGATOR: John Hernandez M.D., Ph.D For any questions, please call customer service at FREQUENCY:OTHER Resulting Agency Comment Specimen source: Blood López Mariano MD LAB BLOOD ORDERABLES [facility] See order comments or contact performing lab Unknown, [place] documented in this encounter Visit Diagnoses Not on filedocumented in this encounter
--- OUTSIDE RECORDS SUMMARY | 2023-10-17 02:39 | XMS_ITS | Encounter Summary ---
Author Organization [facility] Address [address] [place] [address] Care Team Providers Care Multineedle Shirrer Name Role Phone Unavailable Primary Care Provider Unavailabl e Encounter Details Date Type Department Care Team (Late st Contact Info) Description 09/08/2023 Orders Only [facility] [place] [address] [place] [address] López Mariano MD [address] [place] [address] Social History Tobacco Use Types [...] Priority Date/Time Associated Diagnosis Comments HEMATOLOGY Routine 09/08/2023 documented in this encounter Results * HEMATOLOGY (09/08/2023) Hemoglobin 12.1 12.0 - 16.0 g/dL [facility] Hemoglobin x 3 36.3 36.0 - 48.0 % [facility] 09/08/2023 09/09/2023 9:3 1 AM CDT Narrative [facility] - 09/09/2023 Unless otherwise specified, test(s) performed at: [facility], [address] [place] [address], [place] [address] COUNCILMAN: John Hernandez M.D., Ph.D For any questions, please call customer service at FREQUENCY:OTHER Resulting Agency Comment Specimen source: Blood López Mariano MD LAB BLOOD ORDERABLES [facility] See order comments or contact performing lab Unknown, [place] documented in this encounter Visit Diagnoses Not on filedocumented in this encounter
--- OUTSIDE RECORDS SUMMARY | 2023-10-17 02:39 | XMS_ITS | Encounter Summary ---
Author Organization [facility] Address [address] [place] [address] Care Team Providers Care Precast Concrete Ironworker Name Role Phone Unavailable Primary Care Provider Unavailabl e Encounter Details Date Type Department Care Team (Late st Contact Info) Description 09/01/2023 Orders Only [facility] [place] [address] [place] [address] López Mariano MD [address] [place] [address] Social History Tobacco Use Types [...] Priority Date/Time Associated Diagnosis Comments HEMATOLOGY Routine 09/01/2023 documented in this encounter Results * (ABNORMAL) HEMATOLOGY (09/01/2023) Hemoglobin 11.6(L) 12.0 - 16.0 g/dL [facility] Hemoglobin x 3 34.8(L) 36.0 - 48.0 % [id number] 09/01/2023 09/02/2023 7:3 6 AM CDT Narrative [facility] - 09/02/2023 Unless otherwise specified, test(s) performed at: [facility], [address] [place] [address] APPLICATION SUPPORT CONSULTANT: John Hernandez M.D., Ph.D For any questions, please call customer service at FREQUENCY:OTHER Resulting Agency Comment Specimen source: Blood López Mariano MD LAB BLOOD ORDERABLES [facility] See order comments or contact performing lab Unknown, [place] documented in this encounter Visit Diagnoses Not on filedocumented in this encounter
--- OUTSIDE RECORDS SUMMARY | 2023-10-17 02:39 | XMS_ITS | Encounter Summary ---
Author Organization [facility] [place] Address [address] [place] [address] Care Team Providers Care Credit Processor Name Role Phone Unavailable Primary Care Provider Unavailabl e Encounter Details Date Type Department Care Team (Late st Contact Info) Description 10/13/2023 Treatment [facility] [place] [address] [place] [address] López Mariano MD [address] [place] [address] Social History Tobacco Use Types Packs/Day Years Used Date Smoking Tobacco: Never Assessed Sex and Gender Information Value Date Recorded Sex Assigned at Not on file Gender Identity Not on file Sexual Orientation Not on file documented as of this encounter Miscellaneous Notes * Dialysis Note - López Mariano MD - 10/13/2023 1:16 PM CDT Date: Oct 13, 2023 Patient Name: Stephanie Norman : 1965 Chart #: [id number] Sex: F This patient was personally seen for a complete visit as part of routine monthly dialysis care. A review of the dialysis treatment, blood pressure, estimated dry weight and recent lab values was made. These were discussed with the patient and staff as necessary. Treatment Data for 10/13/2023 started at:11:33 AM Dialyzer: 180NRe Optiflux Na: 137 mEq/L Bicarb: 27 mEq/L Dialysate: 2.0 K, 2.5 Ca, 1.0 Mg, 100 Dextrose (G2251) Dialysate/Machine Temp (prescribed): 37 C Dialysate/Machine Temp (actual): 37 C BFR (prescribed): 450 BFR (actual): 450 Prescribed time: 03:30 EDW: 97 kg Access Type: Active (In Use):AVFistula-Standard/Left Upper Arm Pre Dialysis Vitals (for 10/13/2023 11:25 AM ) Pre BP (sit): 110/57 Pre Wt: 100.1 kg Temp: 97.8 F Post Dialysis Vitals (for 10/11/2023 3:12 PM ) Post BP (sit): 92/59 Post Wt: 97.4 kg Current Dialysis Vitals (for 10/13/2023 1:02 PM ) BP (sit): 100/60 AP(-) / MAGAZINE SUPERVISOR: 219/190 Pulse: 64 Chairside data as of 10/13/2023 1:02 PM Last 3 Treatments 10/11/2023 10/08/2023 10/06/2023 EDW (kg) 97 96.5 96.5 Weight Pre (kg) 100.3 100.4 101 Weight Post (kg) 97.4 97.3 97.7 Dialytic Weight Loss (kg) -2.9 -3.1 -3.3 EDW Deviation (kg) 0.4 0.8 1.2 BP Sit Pre 127/67 108/78 135/72 BP Sit Post 92/59 105/56 109/64 UF Rate (mL/kg/hr) 8 10 10 Prescribed BFR 450 450 450 Average Delivered BFR 450 460 460 Prescribed Treatment Time 03:30 03:30 03:30 Actual Treatment Time 03:32 03:22 03:30 Last 3 Values 09/20/2023 09/01/2023 08/30/2023 Access Flow [id number] SUPERVISOR ELEMENTARY EDUCATION: Lópze Mariano MD LOCATION: [phone] SCHEDULE: -- 2nd Shift EDW: kg. DIALYZER: HD DURATION: NEEDLE SIZE: ANTICOAG: BATH: QB: ml/min QD: ml/min Subjective No new complaints. 10/13/23: Dialysis going well, no troubles with dialysis except pain in her back with prolonged sitting. She has spinal stenosis on MRI, seeing PCP regarding this next week as injection did not help much. Advanced Practitioner Subjective SEPHORA PRODUCT CONSULTANT 09/22/2023: Spoke with patient on dialysis. Today she denies SOB, chest pain or cramping. Arm access working well. Will continue to monitor weight. SEPHORA PRODUCT CONSULTANT 09/17/2023: Patient seen on dialysis. No new [...] 1 tablet by mouth once a day bupropion HCl 75 mg tablet once a day carvedilol 12.5 mg tablet Take 1/2 tablet by mouth twice a day citalopram 40 mg tablet Take 1 tablet by mouth once a day as directed. Celexa - Take in the evening. Lipitor (atorvastatin) 40 mg tablet Take 1 [...] made. Treatment and Adequacy Assessment BUN mg/dL 50 (09/22/23) 66 (08/18/23) 60 (07/21/23) 58 (06/23/23) 53 (05/26/23) UREA NITROGEN (MG/DL) IN SER/PLAS - POST DIALYSIS mg/dL 12 (09/22/23) 18 (08/18/23) 14 (07/21/23) 13 (06/23/23) 14 (05/26/23) URR % 76 (09/22/23) 73 (08/18/23) 77 (07/21/23) 78 (06/23/23) 74 (05/26/23) spKt/V Gotch 1.79 (09/22/23) 1.62 (08/18/23) 1.78 (07/21/23) 1.81 (06/23/23) 1.63 (05/26/23) eKdrt/V 1.51 (09/22/23) 1.37 (08/18/23) 1.47 (07/21/23) 1.53 (06/23/23) 1.38 (05/26/23) spKt/V (Daugirdas II) 1.6800 (09/22/23) 1.5400 (08/18/23) 1.6800 (07/21/23) 1.7300 (06/23/23) 1.5400 (05/26/23) Dialysis is adequate. Achieves prescribed time - Yes Achieves prescribed frequency - Yes Continue current prescription. Vascular Access Assessment Type of access: Fistula Send for fistulagram. 08/2023: two stenoses with intervention done 06/18/22 [facility] [place] vein moderate stenosis s/p angioplasty with good success 05/2022: Fistulagram scheduled for pain surrounding access and collateral vessels -> appt 06/18/22 at [facility] [place] for fistulagram Fistulagram 12/2020 patent and no stenosis. Working well now was of 02/2021 Anemia Assessment HEMOGLOBIN (G/DL) IN BLOOD g/dL 11.9 (10/06/23) 11.9 (09/29/23) 11.7 (09/22/23) 11.8 (09/15/23) 12.1 (09/08/23) PLATELETS 1000/mcL 204 (09/22/23) 199 (08/18/23) 219 (07/21/23) 195 (06/23/23) 201 (05/26/23) FERRITIN ng/mL 652 (08/18/23) 984 (05/26/23) 1269 (02/17/23) 1631 (01/20/23) 1134 (10/21/22) TRANSFERRIN SAT% % 27 (09/22/23) 30 (08/18/23) 25 (07/21/23) 22 (06/23/23) 24 (05/26/23) Hemoglobin is above goal. Iron Saturation is at goal. Ferritin is at goal. No FABIO therapy with Hgb >11 Nutritional and Metabolic Assessment ALBUMIN (G/DL) g/dL 4.1 (09/22/23) 4.2 (08/18/23) 4.3 (07/21/23) 4.2 (06/23/23) 4.2 (05/26/23) Sodium mEq/L 135 (09/22/23) 136 (08/18/23) 133 (07/21/23) 130 (06/23/23) 134 (05/26/23) POTASSIUM (MMOL/L) IN SER/PLAS mEq/L 5.3 (09/22/23) 5.1 (08/18/23) 5.6 (07/21/23) 5.8 (06/23/23) 5.3 (05/26/23) BICARBONATE (CO2) mEq/L 21 (09/22/23) 21 (08/18/23) 21 (07/21/23) 23 (06/23/23) 22 (05/26/23) 25 OH VITAMIN D ng/mL 16.4 (02/17/23) 23.3 (10/21/22) Albumin is at goal. Encourage high-biological value protein intake. Potassium is at goal. Encourage low potassium diet. Bicarbonate is at goal. Continue same bicarbonate in dialysate. Bone and Mineral Metabolism Assessment CALCIUM mg/dL 9.2 (09/22/23) 9.6 (08/18/23) 9.4 (07/21/23) 9.2 (06/23/23) 9.5 (05/26/23) CALCIUM (MG/DL) CORRECTED FOR ALBUMIN IN SER/PLAS mg/dL 9.1 (09/22/23) 9.4 (08/18/23) 9.2 (07/21/23) 9.0 (06/23/23) 9.3 (05/26/23) PHOSPHATE (MG/DL) IN SER/PLAS mg/dL 4.9 (09/22/23) 3.0 (08/18/23) 3.9 (07/21/23) 3.4 (06/23/23) 5.0 (05/26/23) CALCIUM PHOSPHORUS PRODUCT, COR 45 (09/22/23) 28 (08/18/23) 36 (07/21/23) 31 (06/23/23) 47 (05/26/23) IPTH pg/mL 247 (08/18/23) 208 (07/21/23) 154 (06/23/23) 143 (05/26/23) 216 (02/17/23) Corrected Calcium is at goal. Phosphorous is at goal. Intact PTH is at goal. Color Dipper will adjust binders and vitamin D per protocol and continue to provide dietary education. Cardiovascular Assessment Blood pressures reviewed and are acceptable. Intradialytic weight gains are appropriate. Estimated dry weight is appropriate. Transplant Status: Patient is on transplant list. [facility] [place] Listed for Transplant at [place] as of Apr 2021 Possible living donors x2 possibly after she attended a graduation republican and two people expressed interest! Resuscitation Status Stable dialysis NO change in prescription Seeing PCP regarding back pain and spinal stenosis López Mariano MD [ Signed And locked electronically On 10/13/2023 at 01:18:16 PM ] Transcribed: López Mariano ( 10/13/2023 ) documented in this encounter Plan of Treatment Not on file documented as of this encounter Visit Diagnoses Not on filedocumented in this encounter
--- OUTSIDE RECORDS SUMMARY | 2023-10-17 02:39 | XMS_ITS | Encounter Summary ---
Author Organization [facility] Address [address] [place] [address] Care Team Providers Care Humidifier Attendant Name Role Phone Unavailable Primary Care Provider Unavailabl e Encounter Details Date Type Department Care Team (Late st Contact Info) Description 08/30/2023 Treatment [facility] [place] [address] [place] [address] López Mariano MD [address] [place] [phone] Social History Tobacco Use Types Packs/Day Years Used Date Smoking Tobacco: Never Assessed Sex and Gender Information Value Date Recorded Sex Assigned at Not on file Gender Identity Not on file Sexual Orientation Not on file documented as of this encounter Miscellaneous Notes * Dialysis Note - López Mariano MD - 08/30/2023 12:59 PM CDT Date: August 30, 2023 Patient Name: Stephanie Norman : 1965 Chart #: [id number] Sex: F This patient was personally seen for a complete visit as part of routine monthly dialysis care. A review of the dialysis treatment, blood pressure, estimated dry weight and recent lab values was made. These were discussed with the patient and staff as necessary. MECHANIC: López Mariano MD LOCATION: [phone] SCHEDULE: M-W-F 2nd Shift EDW: kg. DIALYZER: [...] new symptoms or concerns. Advanced Practitioner Subjective ROASTER HELPER 07/28/2023: Spoke with patient at chairside. Doing well. Has pain in right hand for the past week; unsure what happened. Will try to go get xray after dialysis. Denies SOB, chest pain, cramping or dizziness. BP stable. AVF working well; no reported issues from staff. Getting to EDW. Continue planof care. No changes today. ROASTER HELPER 07/02/2023: Patient seen on dialysis. No [...] 08/2023: two stenoses with intervention done 06/18/22 [facility]: outflow vein moderate stenosis s/p angioplasty with good success 05/2022: Fistulagram scheduled for pain surrounding access and collateral vessels -> appt 06/18/22 at [facility] scheduled for fistulagram Fistulagram 12/2020 patent and no stenosis. Working well now was of 02/2021 Anemia Assessment HEMOGLOBIN (G/DL) IN BLOOD g/dL 11.8 (08/18/23) 11.7 (08/11/23) 12.5 (08/04/23) 11.4 (07/28/23) 12.2 (07/21/23) PLATELETS 1000/mcL 199 (08/18/23) 219 (07/21/23) 195 [...] at goal. Intact PTH is at goal. Quality Controller will adjust binders and vitamin D per protocol and continue to provide dietary education. Cardiovascular Assessment Blood pressures reviewed and are acceptable. Intradialytic weight gains are appropriate. Estimated dry weight is appropriate. Transplant Status: Patient is on transplant list. [facility] - [place] Listed for Transplant at [facility] as of Apr 2021 Possible living donors x2 possibly after she attended a graduation republican and two people expressed interest! Resuscitation Status Stable dialysis, no change in prescription López Mariano MD [ Signed And locked electronically On 08/30/2023 at 01:01:15 PM ] Transcribed: López Mariano ( 08/30/2023 ) documented in this encounter Plan of Treatment Not on file documented as of this encounter Visit Diagnoses Not on filedocumented in this encounter
--- OUTSIDE RECORDS SUMMARY | 2023-10-17 02:39 | XMS_ITS | Clinical Summary ---
Author Organization [facility] Facility Address [address] [facility] [address] [place] [address] Care Team Providers Care Radiological Equipment Specialist Name Role Phone Unavailable Primary Care Provider Unavailabl e Encounters Date Type Department Care Team Description 10/13/2023 Orders Only [facility] [address] [place] [address] López Mariano MD 10/13/2023 [facility] [address] [place] [phone] López Mariano MD 10/06/2023 Orders Only [facility] [place] [address] [place] [address] López Mariano MD 09/29/2023 Orders Only [facility] [address] [place] [address] López Mariano MD 09/22/2023 Orders Only [facility] [address] [place] [address] López Mariano MD 09/22/2023 Treatment [facility] [address] [address] [place] [address] Viji Chavez APRN-ROOM SERVICE WAITER 09/17/2023 Treatment [facility] [address] [place] [phone] Viji Chavez, MACHINE TOOL MECHANIC-ROOM SERVICE WAITER 09/15/2023 Orders Only [facility] [address] [place] [address] López Mariano MD 09/08/2023 Orders Only [facility] [address] [place] [address] López Mariano MD 09/01/2023 Orders Only [facility] [address] [place] [address] López Mariano MD 08/30/2023 Treatment [facility] [address] [place] [address] López Mariano MD 08/18/2023 Orders Only [facility] [address] [place] [address] López Mariano MD 08/11/2023 Orders Only [facility] [address] [place] [address] López Mariano MD 08/06/2023 Treatment [facility] [address] [place] [address] López Mariano MD 08/04/2023 Orders Only [facility] [address] [place] [address] López Mariano MD 07/28/2023 Orders Only [facility] [address] [place] [address] López Mariano MD 07/28/2023 Treatment [facility] [address] [place] [address] Viji Chavez, MACHINE TOOL MECHANIC-ROOM SERVICE WAITER 07/21/2023 Orders Only [facility] [address] [place] [phone] López Mariano MD 07/20/2023 Telephone [facility] [address] [place] [phone] Joana Rudolph RN from Last 3 Months Social History Tobacco [...] Date/Time Associated Diagnosis Comments HEMATOLOGY Routine 10/13/2023 HEMATOLOGY Routine 10/06/2023 HEMATOLOGY Routine 09/29/2023 [facility] RESULTS Routine 09/22/2023 HD KINETICS Routine 09/22/2023 POST CHEMISTRY Routine 09/22/2023 CHEMISTRY Routine 09/22/2023 HEMATOLOGY Routine 09/22/2023 HEMATOLOGY Routine 09/15/2023 HEMATOLOGY Routine 09/08/2023 HEMATOLOGY Routine 09/01/2023 [facility] RESULTS Routine 08/18/2023 HEMATOLOGY Routine 08/18/2023 HD KINETICS Routine 08/18/2023 POST CHEMISTRY Routine 08/18/2023 SPECIAL CHEMISTRY Routine 08/18/2023 CHEMISTRY Routine 08/18/2023 CHEMISTRY Routine 08/18/2023 HEMATOLOGY Routine 08/11/2023 HEMATOLOGY Routine 08/04/2023 HEMATOLOGY Routine 07/28/2023 [facility] RESULTS Routine 07/21/2023 HEMATOLOGY Routine 07/21/2023 HD KINETICS Routine 07/21/2023 POST CHEMISTRY Routine 07/21/2023 CHEMISTRY Routine 07/21/2023 CHEMISTRY Routine 07/21/2023 from Last 3 Months Results * (ABNORMAL) HEMATOLOGY (10/13/2023) Only the most recent of12 resultswithin the time period is included. Hemoglobin 11.8(L) 12.0 - 16.0 g/dL [facility] Hemoglobin x 3 35.4(L) 36.0 - 48.0 % [facility] 10/13/2023 10/14/2023 9:5 9 AM T [facility] - 10/14/2023 Unless otherwise specified, test(s) performed at: [facility], [address] [place] [id number] SENIOR FUND ACCOUNTANT: John Hernandez M.D., Ph.D For any questions, please call customer service at FREQUENCY:OTHER Resulting Agency Comment Specimen source: Blood López Mariano MD LAB BLOOD ORDERABLES Performing Organization Address [facility] de Phone Number [facility] See order comments or contact performing lab Unknown, [place] * HD KINETICS (09/22/2023) Only the most recent of3 resultswithin the time period is included. % Urea Reduction 76 65 - 80 % [facility] 09/22/2023 09/24/2023 2:1 1 AM CDT Narrative Resulting Agency Comment Specimen source: Plasma López Mariano MD LAB BLOOD ORDERABLES Performing Organization Address [facility] de Phone Number [facility] See order comments or contact performing lab Unknown, [place] * POST CHEMISTRY (09/22/2023) Only the most recent of3 resultswithin the time period is included. BUN Post Dialysis 12 6 - 19 mg/dL [facility] 09/22/2023 09/24/2023 2:1 1 AM CDT Narrative [facility] - 09/24/2023 Unless otherwise specified, test(s) performed at: [facility], [address] [place] [address], [place] [address] SENIOR FUND ACCOUNTANT: John Hernandez M.D., Ph.D For any questions, please call customer service at FREQUENCY:MONTHLY Resulting Agency Comment Specimen source: Plasma López Mariano MD LAB BLOOD ORDERABLES Performing Organization Address [facility] de Phone Number [facility] See order comments or contact performing lab Unknown, [place] * (ABNORMAL) [facility] Chemistry (09/22/2023) Only the most recent of5 resultswithin the time period is included. BUN 50(H) 6 - 19 mg/dL [facility] Creatinine 9.86(H) 0.60 - 1.30 mg/dL [facility] BUN/Creatinine Ratio 5.1(L) 10.0 - 20.0 [facility] Sodium 135(L) 136 - 145 mEq/L [facility] Potassium 5.3(H) 3.5 - 5.1 mEq/L [facility] Chloride 102 96 - 108 mEq/L [facility] Bicarbonate (CO2) 21 20 - 31 mEq/L [facility] Calcium 9.2 8.7 - 10.4 mg/dL [facility] Comment: Please note change in reference range. Corrected Calcium 9.1 8.7 - 10.4 mg/dL [facility] Comment: Corrected Calcium is not equivalent to measured Ionized Calcium. Phosphorus 4.9(H) 2.6 - 4.5 mg/dL [facility] Calcium Phosphorus Product 45 0 - 54 [facility] Calcium Phosporus Product, Cor 45 0 - 54 [facility] Total Protein 6.8 6.0 - 8.5 g/dL [facility] Albumin 4.1 3.5 - 5.2 g/dL [facility] Globulin, Total 2.7 2.0 - 4.0 g/dL [facility] A/G Ratio 1.5 1.0 - 2.0 [facility] Iron 60 30 - 160 mcg/dL [facility] UIBC 163 155 - 355 mcg/dL [facility] TIBC 223 185 - 515 mcg/dL [facility] Iron Saturation (TSat) 27 20 - 55 % [facility] 09/22/2023 09/23/2023 4:2 7 PM CDT Narrative [facility] - 09/23/2023 Unless otherwise specified, test(s) performed at: [facility], [address] [place] [address], [place] [address] SENIOR FUND ACCOUNTANT: John Hernandez M.D., Ph.D For any questions, please call customer service at FREQUENCY:MONTHLY Resulting Agency Comment Specimen source: Serum López Mariano MD LAB BLOOD ORDERABLES [facility] See order comments or contact performing lab Unknown, [place] * [facility] Lab Results (09/22/2023) Only the most recent of3 resultswithin the time period is included. eKdrt/V 1.51 Knowledge Center eKt/V Gotch 1.51 Knowledg e Center eNPCR 0.92 Knowledge Center spKt/V (Daugirdas II) 1.68 Knowledge Center spKt/V Gotch 1.79 Knowled ge Center nPCR_HD 0.99 Knowledge Center eKt/V ([place]) 1.44 Knowledge Center PCR 52.47 Knowledge Center WSTDKT/V 2.5 [facility] Center 09/22/2023 09/22/2023 Niels Ordering Provider LAB BLOOD ORDERABLE [facility] Contact Performing lab Unknown, [place] * (ABNORMAL) SPECIAL CHEMISTRY (08/18/2023) Vitamin D, 1,25-Dihydroxy 8.0(L) 19.9 - 79.3 pg/mL [facility] 08/18/2023 08/19/2023 12: 19 PM CDT Narrative Resulting Agency Comment Specimen source: Serum López Mariano MD LAB BLOOD BANK TEST ORDERABLES [facility] See order comments or contact performing lab Unknown, [place] from Last 3 Months Advance Directives Healthcare Agents on File Name Relationship Healthcare Agent Relationshi p Communication Staci Thompson Sibling Health Care Agent [email or web address]
--- OUTSIDE RECORDS SUMMARY | 2023-10-17 02:39 | XMS_ITS | Clinical Summary ---
Author Organization [facility] Address [place], [place] [address] Care Team Providers Care Electrician Helper Name Role Phone Zoe Al DO Primary Care Provider [phone] Allergies Active Allergy Reactions Criticality Noted Date Comments Neomycin Rash High 12/11/2016 Penicillins Hives,Rash High 03/05/2008 Povidone-Iodine Flushing Medium 08/31/2023 Medications Medication Sig Dispensed Refills Start Date End Date Status aspirin chewable (CHILDRENS ASPIRIN) 81 mg chewable tablet Take 1 tablet by mouth once daily with a meal. 90 tablet 3 11/09/2018 Active sevelamer carbonate (RENVELA) 800 mg tab tablet Take 1 Tablet by mouth 3 times daily with meals. 0 06/24/2020 Active Sylvain Caps 1 mg capsule 08/30/2020 Active CPAPIndications:TREMAINE [...] mouth. Active sennosides-docusate (SENOKOT S) (8.6-50 mg) tabletIndications:P eritoneal dialysis catheter dysfunction, subsequent encounter (HC) Take 1 Tablet by mouth 2 times daily if needed for Constipation. 20 Tablet 03/11/2021 Active acetaminophen (TYLENOL) 325 mg tabletIndications:P eritoneal dialysis catheter dysfunction, subsequent encounter (HC) Take 2 Tablets (650 mg) by mouth every 6 hours. Max acetaminophen dose: 4000mg in 24 hrs. 30 Tablet 03/11/2021 Active torsemide (DEMADEX) 20 mg tabletIndications:E SRD (end stage renal disease) (HC) Take 2 Tablets (40 mg) by mouth once daily. 180 Tablet 3 08/21/2021 Active Additional Information Patient taking differently:40 mg OralBID, Reported on 11/30/2022 carvediloL (COREG) 12.5 mg tabletIndications:E ssential hypertension Take 1 Tablet (12.5 mg) by mouth 2 times daily. 180 Tablet 3 08/21/2021 Active Additional Information Patient taking differently: 6.25 mgOralDAILY, Reported on 11/30/2022 lidocaine-prilocain e (EMLA) 2.5-2.5 % cream APPLY SMALL AMOUNT TO ACCESS SITE (AVF) 1 TO 2 HOURS BEFORE DIALYSIS. COVER WITH OCCLUSIVE DRESSING (SARAN WRAP) 08/26/2021 Active pramipexole (MIRAPEX) 0.25 mg tabletIndications:E nd stage renal disease (HC) TAKE 1 TABLET BY MOUTH EVERYDAY AT BEDTIME 90 Tablet 3 02/09/2022 Active traZODone (DESYREL) 50 mg tabletIndications:I nsomnia, unspecified type Take 1 Tablet (50 mg) by mouth at bedtime if needed for Sleep. 90 Tablet 3 09/03/2022 Active atorvastatin (LIPITOR) 40 mg tabletIndications:H yperlipidemia, unspecified hyperlipidemia type Take 1 Tablet (40 mg) by mouth once daily. 90 Tablet 3 09/03/2022 Active buPROPion (WELLBUTRIN XL) 150 mg Extended-Release tabletIndications:D ysthymia,Tobacco use Take 1 Tablet (150 mg) by mouth every morning. 90 Tablet 3 09/03/2022 Active varenicline (Chantix) 0.5 mg tabletIndications:T obacco use Take 1 Tablet (0.5 mg) by mouth once daily with a meal. 90 Tablet 1 09/04/2022 Active Additional Information Patient not taking.Reported on 08/31/2023 Lactobacillus acidophilus (Probiotic) 10 billion cell cap Take by mouth. Acti ve loratadine (CLARITIN) 10 mg tablet Take 10 mg by mouth once daily. Active citalopram (CELEXA) 20 mg tabletIndications:D ysthymia TAKE 1 TABLET BY MOUTH AT BEDTIME 90 Tablet 08/03/2023 Active b complex vitamins (VITAMIN B COMPLEX) capsule Take 1 Capsule by mouth once daily. Active LORazepam (Ativan) 0.5 mg tabIndications:Valerie strophobia 1 tab as needed before MRI procedure due to anxiety/claustroph obia. May repeat 1 time if needed. No driving after taking this med. 2 Tablet 09/09/2023 Active traMADoL (ULTRAM) 50 mg tabletIndications:H ip pain, left Take 0.5 Tablets (25 mg) by mouth 2 times daily if needed for Pain. 30 Tablet 09/17/2023 Active ALPRAZolam (XANAX) 1 mg tabletIndications:C laustrophobia Take 1-2 Tablets (1-2 mg) by mouth one time for 1 dose. 2 Tablet 10/01/2023 4 Active Problems Problem Noted Date Diagnosed Date [...] Encounters Date Type Department Care Team Description 10/06/2023 Telephone [facility] [place] [address] Kirill Hernandez MD Appointment 10/05/2023 9:00 AM CDT Ancillary Procedure [facility] [address] [place] [address] 10/05/2023 Travel 10/05/[address] [address] Kirill Hernandez MD Imaging (Sent medical message ) 09/30/2023 Telephone [facility] [place] [address] Rachel Al DO Need Meds; Returning a call (Returning a call) 09/30/2023 Travel 08/31/2023 10:45 AM CDT Ancillary Procedure [address] [address] 08/31/2023 9:30 AM CDT Office Visit [address] [address] Kirill Hernandez MD Musculoskeletal Problem (Consultation for LEFT Hip pain DOO: 07/2023) 08/31/2023 Travel 08/20/2023 Telephone [facility] [place] [address] Deonte Maddox MD Appointment Request (HIP PAIN) 08/17/2023 11:00 AM CDT Ancillary Procedure [address] [address] 08/17/2023 10:35 AM CDT Office Visit [address] [address] Rachel Al DO Pain (LEFT hip and leg, low back has been seeing a chiro and he told her her leg popped out - does dialysis x3 days a week - thinks it was triggered by raking a few weeks ago ) 08/17/2023 Travel 08/03/2023 Refill [facility] [address] [facility] [place] [address] Veronika Pugh PA Refill Request (Citalopram) 07/28/2023 Orders Only [facility] Scanner 1 scan: (1-Ord) [facility], XR RT HAND MIN 3V, 07/28/2023 from Last 3 Months Immunizations Name Administration Dates Next Due AMB Influenza, IIV4 PF (=>6 mos Flulaval,Fluzone Fluarix)(Flu Clinic Only) 01/23/2017 COVID-19 vaccine (Moderna 100mcg/0.5mL) PF, MDV 02/28/2021,06/10/2020,05/17/2020 COVID-19 vaccine (Pfizer-Bio NTech 30mcg/0.3mL) 12YO+ BIVALENT PF, MDV 01/26/2022 COVID-19 vaccine (Pfizer-Bio NTech 30mcg/0.3mL) 12YO+ WANDY-SUCROSE PF, MDV 09/16/2021 [...] Tobacco: Never Tobacco Cessation:Ready to Q uit: No; Counseling Given: Yes Alcohol Use Standard Drinks/Week Comments Yes 0 (1 standard drink = 0.6 oz pur e alcohol) rarely PHQ-2 Answer Date Recorded PHQ-2 TOTAL SCORE 1 08/03/2023 Social Connections Answer Date Recorded Frequency of Communication with Friends and Fami ly Not on file 04/16/2021 Financial Resource Strain Answer Date R ecorded Difficulty of Paying Living Expenses Not on file 04/16/2021 Difficulty of Paying Living Expenses Not on file 04/16/2021 Sex and Gender Information Value Date Recorded Sex Assigned at Female 06/24/2020 10:04 AM LICENSE CLERK Gender Identity Female 06/24/2020 10:04 AM LICENSE CLERK Sexual Orientation Not on file Obstetrics History Last Filed Vital Signs Vital Sign Reading Time Taken Comments Blood Pressure 102/67 08/31/2023 9:27 AM CDT Pulse 62 08/31/2023 9:27 AM CDT Temperature 36.6 ??C (97.9 ??F) 11/30/2022 12:30 PM C DT Respiratory Rate 18 11/30/2022 12:30 PM CDT Oxygen Saturation 100% 08/31/2023 9:27 AM CDT Inhaled Oxygen Concentration - - Weight 98.1 kg (216 lb 3.2 oz) 08/31/2023 9:27 A M CDT Height 168.2 cm (5' 6.22) 09/03/2022 3:45 PM CD T Body Mass Index 34.66 09/03/2022 3:45 PM CDT Plan of Treatment Upcoming Encounters Date Type Department Care Team (Late st Contact Info) Description 10/18/2023 7:50 AM CDT Office Visit [address] [address] Kirill Hernandez MD [address] [place] [address] Health Maintenance Due Date Last Done Comments Zoster (shingles) series for age 50+ (1 of 2) 2014 Pneumococcal series for age 6-64 (3 of 3 - PPSV23 or PCV20) 02/03/2021 08/21/2020, 02/04/2016 COVID-19 vaccine series (2022-24 season) 2022 01/26/2022, 09/16/2021, 02/28/2021, Additional history exists BMI (ht and wt on same day) for age 18+ 09/04/2023 09/03/2022, 12/08/2021, 09/16/2021, Additional history exists Influenza for age 50-64 12/19/2023 01/24/20, 01/31/2021, 01/24/2020, Additional history exists Mammogram for age 45-75 06/28/2024 06/29/19 24, 12/26/2021, 11/20/2020, Additional history exists Depression screening for age 12+ 08/02/2024 08/03/2023, 09/03/2022, 09/16/2021, Additional history exists Pap test for age [...] Procedure Name Priority Date/Time Associated Diagnosis Comments MR SPINE LUMBAR WO Routine 10/05/2023 9: 15 AM CDT Hip pain, left XR SPINE LUMBAR 2 VIEWS Routine 08/31/2023 10:44 AM CDT Myofascial pain on left side XR HIP 1 VIEW W PELVIS LEFT Routine 08/17/2023 10:49 AM CDT Hip pain, left SCAN-RADIOLOGY REPORT 07/28/2023 12:00 AM CDT XR MAMMO MIKAYLA BILAT SCREEN Routine 06/29/2023 4:10 PM CDT Encounter for screening mammogram for malignant neoplasm of breast LIPID PANEL W REFLEX MEASURED LDL Routine 09/03/2022 4:25 PM CDT Hyperlipidemia, unspecified hyperlipidemia type CLASSIFIER TENDER THIN PREP PAP SCREEN IMAGED Routine 11/28/2020 [...] Recently Relevant to Health Maintenance Results * MR SPINE LUMBAR WO (10/05/2023 9:15 AM CDT) Anatomical Region Laterality Modality Spine, LUMBAR SPINE Magnetic Res onance 10/05/2023 10:3 5 AM CDT Impressions 10/05/2023 10:35 AM CDT 1. Transitional segment designated L5. 2. At L2-3, a left subarticular disc extrusion with caudal migration impinges the traversing left L3 nerve root. 3. At L4-5, left subarticular recess stenosis with slight posterior displacement of the traversing left L5 nerve root by a shallow disc protrusion. 4. No spinal canal/neural foraminal stenosis or impingement on neural structures elsewhere. Dictated by Jonathan Davis MD @ 10/05/2023 10:35:06 AM (Electronically Signed) Narrative 10/05/2023 10:35 AM CDT For Patients: ??As a result of the Cures Act, medical imaging exams and procedure reports are released immediately into your electronic medical record. ??You may view this report before your referring provider. ??If you have questions, please contact your health care provider. INDICATION: Left-sided hip pain. TECHNIQUE : Lumbar spine MRI without contrast. COMPARISON: Lumbar spine radiographs from 08/31/2023. FINDINGS : A transitional segment with hypoplastic right-sided transverse process which articulates with the sacral ala. Designated L5 in this report. Normal lumbar lordotic curve. No recent compression fracture or marrow replacing process. Lower cord/conus signal is normal. The conus terminates at a normal location. No intradural lesion. Polycystic kidneys. Discs/Endplates: Moderate disc height loss and disc desiccation L2-3. Mild disc height loss and disc desiccation L3-4 and L4-5. The remaining discs are within normal limits. Findings at individual levels as follows: T11-12: No spinal canal or neural foraminal stenosis. T12-L1: No spinal canal or neural foraminal stenosis. L1-2: No spinal canal or neural foraminal stenosis. L2-3: Moderate disc bulge. A superimposed left central to subarticular disc extrusion measuring up to 7 millimeters in AP dimension and with 10 millimeters caudal migration below the interspace. Impingement of the traversing left L3 nerve root. Mild left neural foraminal stenosis. No right neural foraminal stenosis or spinal canal stenosis. L3-4: Moderate disc bulge, slightly asymmetric to the right. Bilateral low-grade facet arthrosis. Mild bilateral neural foraminal stenosis. No spinal canal stenosis. L4-5: A 6 millimeter left central to subarticular disc protrusion which contacts/slightly displaces posteriorly the left L5 nerve root. Bilateral facet arthrosis with small left-sided synovial cyst. Resultant left subarticular recess stenosis. Mild bilateral neural foraminal stenosis. No spinal canal stenosis L5-S1: Bilateral low-grade facet arthrosis. No spinal canal or neural foraminal stenosis. Imaged SI joints: Within normal limits. Imaged sacrum: Within normal limits. Procedure Note Jonathan Davis MD - 10/05/2023 For Patients: As a result of the 21st Century Cures Act, medical imagingexams and procedure reports are released immediately into your electronicmedical record. You may view this report before your referring provider.If you have questions, please contact your health care provider. INDICATION: Left-sided hip pain. TECHNIQUE : Lumbar spine MRI without contrast. COMPARISON: Lumbar spine radiographs from 08/31/2023. FINDINGS : A transitional segment with hypoplastic right-sided transverse processwhich articulates with the sacral ala. Designated L5 in this report.Normal lumbar lordotic curve. No recent compression fracture or marrowreplacing process. Lower cord/conus signal is normal. The conus terminatesat a normal location. No intradural lesion. Polycystic kidneys. Discs/Endplates: Moderate disc height loss and disc desiccation L2-3. Milddisc height loss and disc desiccation L3-4 and L4-5. The remaining discsare within normal limits. Findings at individual levels as follows: T11-12: No spinal canal or neural foraminal stenosis. T12-L1: No spinal canal or neural foraminal stenosis. L1-2: No spinal canal or neural foraminal stenosis. L2-3: Moderate disc bulge. A superimposed left central to subarticulardisc extrusion measuring up to 7 millimeters in AP dimension and with 10millimeters caudal migration below the interspace. Impingement of thetraversing left L3 nerve root. Mild left neural foraminal stenosis. Noright neural foraminal stenosis or spinal canal stenosis. L3-4: Moderate disc bulge, slightly asymmetric to the right. Bilaterallow-grade facet arthrosis. Mild bilateral neural foraminal stenosis. Nospinal canal stenosis. L4-5: A 6 millimeter left central to subarticular disc protrusion whichcontacts/slightly displaces posteriorly the left L5 nerve root. Bilateralfacet arthrosis with small left-sided synovial cyst. Resultant leftsubarticular recess stenosis. Mild bilateral neural foraminal stenosis. Nospinal canal stenosis L5-S1: Bilateral low-grade facet arthrosis. No spinal canal or neuralforaminal stenosis. Imaged SI joints: Within normal limits. Imaged sacrum: Within normal limits. IMPRESSION: 1. Transitional segment designated L5. 2. At L2-3, a left subarticular disc extrusion with caudal migrationimpinges the traversing left L3 nerve root. 3. At L4-5, left subarticular recess stenosis with slight posteriordisplacement of the traversing left L5 nerve root by a shallow discprotrusion. 4. No spinal canal/neural foraminal stenosis or impingement on neuralstructures elsewhere. Dictated by Jonathan Davis MD @ 10/05/2023 10:35:06 AM (Electronically Signed) Kirill Hernandez MD MR * XR SPINE LUMBAR 2 VIEWS (08/31/2023 10:44 AM CDT) Anatomical Region Laterality Modality LUMBAR SPINE Computed Radiogr aphy 09/01/2023 3:35 PM CDT Impressions 09/01/2023 3:35 PM CDT Multilevel degenerative disc disease lumbar spine. No fracture. Dictated by Willard Giles MD @ 09/01/2023 3:35:15 PM (Electronically Signed) Narrative 09/01/2023 3:35 PM CDT For Patients: ??As a result of the Cures Act, medical imaging exams and procedure reports are released immediately into your electronic medical record. ??You may view this report before your referring provider. ??If you have questions, please contact your health care provider. INDICATION: Myofascial pain TECHNIQUE: 2-view lumbar spine. COMPARISON: none FINDINGS: Multilevel disc space narrowing and spurring. No vertebral body compression fracture. Dense calcifications in the aorta. Postop changes right upper quadrant. Transitional lumbosacral anatomy on the right at L5-S1. Facet joints are relatively normal. Procedure Note Willard Giles MD - 09/01/2023 For Patients: As a result of the Cures Act, medical imagingexams and procedure reports are released immediately into your electronicmedical record. You may view this report before your referring provider.If you have questions, please contact your health care provider. INDICATION: Myofascial pain TECHNIQUE: 2-view lumbar spine. COMPARISON: none FINDINGS: Multilevel disc space narrowing and spurring. No vertebral bodycompression fracture. Dense calcifications in the aorta. Postop changesright upper quadrant. Transitional lumbosacral anatomy on the right atL5-S1. Facet joints are relatively normal. IMPRESSION: Multilevel degenerative disc disease lumbar spine. No fracture. Dictated by Willard Giles MD @ 09/01/2023 3:35:15 PM (Electronically Signed) Kirill Hernandez MD GENERAL IMAGING * XR HIP 1 VIEW W PELVIS LEFT (08/17/2023 10:49 AM CDT) Anatomical Region Laterality Modality HIPS, HIPL, Pelvis Computed Radi ography 08/17/2023 2:23 PM CDT Narrative 08/17/2023 2:23 PM CDT For Patients: ??As a result of the Cures Act, medical imaging exams and procedure reports are released immediately into your electronic medical record. ??You may view this report before your referring provider. ??If you have questions, please contact your health care provider. Indication: Hip pain Technique: Pelvis and left hip 2 views Comparison: None Findings: There is no fracture. Partial sacralization on the right at L5 with pseudoarthrosis. No osteonecrosis. Intact pubic rami. Minimal degenerative changes. Impression: Mild degenerative arthrosis left hip. Dictated by Willard Giles MD @ 08/17/2023 2:23:17 PM (Electronically Signed) Procedure Note Willard Giles MD - 08/17/2023 For Patients: As a result of the Cures Act, medical imagingexams and procedure reports are released immediately into your electronicmedical record. You may view this report before your referring provider.If you have questions, please contact your health care provider. Indication: Hip pain Technique: Pelvis and left hip 2 views Comparison: None Findings: There is no fracture. Partial sacralization on the right at L5 withpseudoarthrosis. No osteonecrosis. Intact pubic rami. Minimal degenerativechanges. Impression: Mild degenerative arthrosis left hip. Dictated by Willard Giles MD @ 08/17/2023 2:23:17 PM (Electronically Signed) Adei Shaqra DO GENERAL IMAGING * SCAN-RADIOLOGY REPORT (07/28/2023 12:00 AM CDT) Anatomical Region Laterality Modality Other Scanner OTHER * XR MAMMO MIKAYLA BILAT SCREEN (06/29/2023 [...] For Patients: As a result of the Cures Act, medical imaging exams and procedure reports are released immediately into your electronic medical record. You may view this report before your referring provider. If you have questions, please contact your health care provider. XR MAMMO MIKAYLA BILAT SCREEN [[id number]] CLINICAL HISTORY: ??This is an asymptomatic 58 y.o. patient. INDICATION FOR EXAM: Mammogram Screening. TECHNIQUE: CC & MLO views were obtained. ??This study was evaluated with the assistance of Computer-Aided Detection. Breast Tomosynthesis was used in interpretation. COMPARISON FILM: Yes 12/26/21 Fiz 11/20/20 [facility] [employer] FINDINGS: ??The breasts have scattered areas of fibroglandular density. There are no dominant masses, suspicious micro calcifications or areas of architectural distortion. Zoe Anny Arroyora DO MAMMO * (ABNORMAL) LIPID PANEL W REFLEX MEASURED LDL (09/03/2022 4:25 PM CDT) CHOLESTEROL,TOTAL 138 100 - 199 mg/dL 09/04/2022 2:13 PM CDT [facility] Comment: Cholesterol, Total Reference Ranges Desirable <200 mg/dL Borderline 200-239 mg/dL High >=240 mg/dL TRIGLYCERIDES 167(H) <150 mg/dL 09/04/2022 2:13 PM CDT [facility] HDL CHOLESTEROL 50 >40 mg/dL 2:13 PM CDT [facility] NON-HDL CHOLESTEROL 88 <145 mg/dl 09/04/2022 2:13 PM CDT [facility] CHOL/HDL RATIO 2.76 <4.50 09/04/2022 2:13 PM CDT [facility] LDL CHOLESTEROL 55 <=130 mg/dL 09/04/2022 2:13 PM CDT [facility] VLDL CHOLESTEROL 33(H) <=30 mg/dL 09/04/2022 2:13 PM CDT [facility] PROVIDER ORDERED STATUS RANDOM 09/04/2022 2:13 PM CDT [facility] Blood BLOOD SPECIMEN / Unknown Venipuncture / Unknown 09/03/2022 4:25 PM CDT 09/03/2022 4:28 PM CDT Veronika OVALLES CHEMISTRY [facility] [address] [place] [address], * CLASSIFIER TENDER THIN PREP PAP SCREEN IMAGED (11/28/2020 3:53 PM CDT) Case Report Gynecologic Cytology Report ? Case: [id number] ? Authorizing Provider: ??Veronika Pugh PA ?Collected: ? 11/28/2020 1553 ? Ordering Location: ? [facility] ?? Received: ?11/28/2020 1632 ? Clinic ? First Screen: ?[place], [place] ? Specimen: ?CLASSIFIER TENDER ThinPrep Vial Screening, Cervical ? 12/12/2020 12:44 PM CDT [facility] INTERPRETATION/ RESULT NEGATIVE FOR INTRAEPITHELIAL LESION OR MALIGNANCY (NIL) (none) 12/12/2020 12:44 PM CDT [facility] IMEN ADEQUACY Satisfactory for evaluation No endocervical component seen 12/12/2020 12:44 PM CDT [facility] HPV REQUEST HPV and PAP 12/12/2020 12:44 PM CDT [facility] Date of LMP unknown 12/12/2020 12:44 PM CDT [facility] Last Pap Date 08/16/18 12/12/2020 12:44 PM CDT [facility] Last Pap Result NIL 12:44 PM CDT [facility] Abnormal Pap or [place] Bx in last 5 years No 12/12/2020 12:44 PM CDT [facility] Menstrual Status Postmenopausal 12/12/2020 12:44 PM CDT [facility] [place] Bx Done Today No 12/12/2020 12:44 PM CDT [facility] Additional Information None given 12/12/2020 12:44 PM CDT [facility] Comment: Cytology is screened at [facility] - [address], [place] [address] and [facility] - [address], [place] [address] and [facility] - [address] [place] [address] Interpreted at [facility] - [address], [place] [address] Automated Review Successful 12/12/2020 12:44 PM CDT [facility] Comment:Specimen processed s uccessfully by automated dandy operator device, ThinPrep Imaging System, [employer] ANCILLARY TESTING CLASSIFIER TENDER HPV Ordered, Please see separate report 12/12/2020 12:44 PM CDT [facility] Note The pap test is a [...] and malignant lesions. 12/12/2020 12:44 PM CDT [facility] Other (Cervical) Non-Blood / Unknown 11/28/2020 3:53 PM CDT 11/28/2020 4:32 PM CDT Veronika OVALLES PATHOLOGY/CYTOLOGY [facility] [address] [place] [address], [place] * ANTI HCV (10/18/2020 12:12 PM CDT) HEPATITIS C ANTIBODY Non-React clyde Non-React clyde 10/18/2020 1:18 PM CDT [facility] Comment:Antibodies to HCV no t detected; does not exclude the possibility of exposure to HCV. Blood BLOOD SPECIMEN / Unknown Butterfly / Unknown 10/18/2020 12:12 PM CDT 10/18/2020 12:29 PM CDT Shar Dias MD [facility] [address] [place] [address], * ANTI HIV 1/2 (10/18/2020 12:12 PM CDT) HIV-1/HIV-2 ANTIBODY Non-Reacti ve Non-Reacti ve 10/18/2020 1:19 PM CDT [facility] Comment:HIV-1 p24 and HIV-1/ HIV-2 Ab not detected. Blood BLOOD SPECIMEN / Unknown Butterfly / Unknown 10/18/2020 12:12 PM CDT 10/18/2020 12:29 PM CDT Shar Dias MD [facility] [address] [place] [address], [place] * COLONOSCOPY SCREENING (08/29/2018 12:00 PM CDT) [...] 10:31 PM 03/31/2019 6:39 PM Care Teams Electrician Helper Relationship Specialty Start Date End Date Zoe [place] [address] PCP - General Family Practice 06/29/23
--- OUTSIDE RECORDS SUMMARY | 2023-10-17 02:39 | XMS_ITS | Encounter Summary ---
Author Organization [facility] Address [address] [place] [address] Care Team Providers Care County Records Management Officer Name Role Phone Unavailable Primary Care Provider Unavailabl e Encounter Details Date Type Department Care Team (Late st Contact Info) Description 08/18/2023 Orders Only [facility] [place] [address] [place] [address] López Mariano MD [address] [place] [address] Social History Tobacco Use Types [...] Date/Time Associated Diagnosis Comments HD KINETICS Routine 08/18/2023 SPECIAL CHEMISTRY Routine 08/18/2023 POST CHEMISTRY Routine 08/18/2023 HEMATOLOGY Routine 08/18/2023 CHEMISTRY Routine 08/18/2023 CHEMISTRY Routine 08/18/2023 [facility] RESULTS Routine 08/18/2023 documented in this encounter Results * [facility] Results (08/18/2023) spKt/V (Daugirdas II) 1.54 [facility] eKt/V ([place]) 1.32 [facility] eKt/V Gotch 1.37 [facility] e Center WSTDKT/V 2.4 [facility] eKdrt/V 1.37 [facility] eNPCR 1.10 [facility] PCR 65.50 [facility] nPCR_HD 1.25 [facility] spKt/V Gotch 1.62 [facility] 08/18/2023 08/18/2023 [place] Ordering Provider LAB BLOOD ORDERABLE [facility] Contact Performing lab Unknown, [place] * (ABNORMAL) HEMATOLOGY (08/18/2023) Neutrophils 90.1(H) 40.0 - 75.0 % [facility] Lymphocytes Relative 4.3(L) 19.0 - 48.0 % [facility] Monocytes 3.5 3.0 - 10.0 % [facility] Eosinophils Relative 0.7 0.0 - 7.0 % [facility] Basophils Relative 0.8 0.0 - 1.5 % [facility] JESSICA 0.5 0.0 - 4.0 % [facility] WBC 10.78 4.80 - 10.80 1000/mcL [facility] RBC 3.58(L) 4.20 - 5.40 mill/mcL [facility] Hematocrit 37.5 37.0 - 47.0 % [facility] MCV 105(H) 80 - 100 fl [facility] MCH 32.9(H) 27.0 - 31.0 pg [facility] MCHC 31.4 30.0 - 36.0 g/dL [facility] RDW 14.2 11.5 - 14.5 % [facility] Hemoglobin 11.8(L) 12.0 - 16.0 g/dL [facility] Hemoglobin x 3 35.4(L) 36.0 - 48.0 % [facility] Platelets 199 130 - 400 1000/mcL [facility] 08/18/2023 08/19/2023 10: 12 AM CDT Narrative [facility] - 08/19/2023 Unless otherwise specified, test(s) performed at: [facility], [address] [place] [id number] PILE DRIVER OPERATOR HELPER: John Hernandez M.D., Ph.D For any questions, please call customer service at Confirmed by slide review. FREQUENCY:MONTHLY Resulting Agency Comment Specimen source: Blood López Mariano MD LAB BLOOD ORDERABLES Performing Organization Address [facility] Co de Phone Number [facility] [employer] [facility] See order comments or contact performing lab Unknown, [place] * HD KINETICS (08/18/2023) % Urea Reduction 73 65 - 80 % [facility] 08/18/2023 08/19/2023 2:1 8 PM CDT Narrative Resulting Agency Comment Specimen source: Plasma López Mariano MD LAB BLOOD ORDERABLES Performing Organization Address [facility] de Phone Number [facility] [employer] [facility] See order comments or contact performing lab Unknown, [place] * POST CHEMISTRY (08/18/2023) BUN Post Dialysis 18 6 - 19 mg/dL [facility] 08/18/2023 08/19/2023 2:1 8 PM CDT Narrative [facility] - 08/19/2023 Unless otherwise specified, test(s) performed at: [facility], [address] [place] [id number] PILE DRIVER OPERATOR HELPER: John Hernandez M.D., Ph.D For any questions, please call customer service at FREQUENCY:MONTHLY Resulting Agency Comment Specimen source: Plasma López Mariano MD LAB BLOOD ORDERABLES Performing Organization Address City/[facility] Co de Phone Number [facility] [employer] [facility] See order comments or contact performing lab Unknown, [place] * (ABNORMAL) SPECIAL CHEMISTRY (08/18/2023) Vitamin D, 1,25-Dihydroxy 8.0(L) 19.9 - 79.3 pg/mL [facility] 08/18/2023 08/19/2023 12: 19 PM CDT Narrative Resulting Agency Comment Specimen source: Serum López Mariano MD LAB BLOOD BANK TEST ORDERABLES [facility] See order comments or contact performing lab Unknown, [place] * (ABNORMAL) [facility] Chemistry (08/18/2023) BUN 66(H) 6 - 19 mg/dL [facility] Creatinine 10.54(H) 0.60 - 1.30 mg/dL [facility] BUN/Creatinine Ratio 6.3(L) 10.0 - 20.0 [facility] Sodium 136 136 - 145 mEq/L [facility] Potassium 5.1 3.5 - 5.1 mEq/L [facility] Chloride 101 96 - 108 mEq/L [facility] Bicarbonate (CO2) 21 20 - 31 mEq/L [facility] Calcium 9.6 8.7 - 10.4 mg/dL [facility] Comment: Please note change in reference range. Corrected Calcium 9.4 8.7 - 10.4 mg/dL [facility] Comment: Corrected Calcium is not equivalent to measured Ionized Calcium. Phosphorus 3.0 2.6 - 4.5 mg/dL [facility] Calcium Phosphorus Product 29 0 - 54 [facility] Calcium Phosporus Product, Cor 28 0 - 54 [facility] Alkaline Phosphatase 92 35 - 104 U/L [facility] Total Protein 7.2 6.0 - 8.5 g/dL [facility] Albumin 4.2 3.5 - 5.2 g/dL [facility] Globulin, Total 3.0 2.0 - 4.0 g/dL [facility] A/G Ratio 1.4 1.0 - 2.0 [facility] Magnesium 2.6 1.6 - 2.6 mg/dL [facility] Ferritin 652(H) 10 - 291 ng/mL [facility] Iron 79 30 - 160 mcg/dL [facility] UIBC 183 155 - 355 mcg/dL [facility] TIBC 262 185 - 515 mcg/dL [facility] Iron Saturation (TSat) 30 20 - 55 % [facility] 08/18/2023 08/19/2023 12: 19 PM CDT Narrative [facility] - 08/19/2023 Unless otherwise specified, test(s) performed at: [facility], [address] [place] [address], [place] [address] PILE DRIVER OPERATOR HELPER: John Hernandez M.D., Ph.D For any questions, please call customer service at FREQUENCY:MONTHLY Resulting Agency Comment Specimen source: Serum López Mariano MD LAB BLOOD ORDERABLES Performing Organization Address [facility] Co de Phone Number [facility] [employer] [facility] See order comments or contact performing lab Unknown, [place] * (ABNORMAL) [facility] Chemistry (08/18/2023) PTH 247(H) 16 - 80 pg/mL [facility] 08/18/2023 08/19/2023 10: 02 AM CDT Narrative [facility] [employer] [facility] - 08/19/2023 Unless otherwise specified, test(s) performed at: [facility], [address] [place] [address], [place] [address] PILE DRIVER OPERATOR HELPER: John Hernandez M.D., Ph.D For any questions, please call customer service at FREQUENCY:MONTHLY Resulting Agency Comment Specimen source: Plasma López Mariano MD LAB BLOOD ORDERABLES Performing Organization Address [facility] Co de Phone Number [facility] [employer] [facility] See order comments or contact performing lab Unknown, [place] documented in this encounter Visit Diagnoses Not on filedocumented in this encounter
--- OUTSIDE RECORDS SUMMARY | 2023-10-17 02:39 | XMS_ITS | Encounter Summary ---
Author Organization [facility] Address [address] [place] [address] Care Team Providers Care Cargo Surveyor Name Role Phone Unavailable Primary Care Provider Unavailabl e Encounter Details Date Type Department Care Team (Late st Contact Info) Description 08/11/2023 Orders Only [facility] [place] [address] [place] [address] López Mariano MD [address] [place] [address] Social History Tobacco Use Types [...] Priority Date/Time Associated Diagnosis Comments HEMATOLOGY Routine 08/11/2023 documented in this encounter Results * (ABNORMAL) HEMATOLOGY (08/11/2023) Hemoglobin 11.7(L) 12.0 - 16.0 g/dL [facility] Hemoglobin x 3 35.1(L) 36.0 - 48.0 % [facility] 08/11/2023 08/12/2023 7:2 0 AM CDT Narrative [facility] - 08/12/2023 Unless otherwise specified, test(s) performed at: [email or web address], [address] [place] [id number] SUGAR TRUCKER: John Hernandez M.D., Ph.D For any questions, please call customer service at FREQUENCY:OTHER Resulting Agency Comment Specimen source: Blood López Mariano MD LAB BLOOD ORDERABLES [facility] See order comments or contact performing lab Unknown, [place] documented in this encounter Visit Diagnoses Not on filedocumented in this encounter
--- OUTSIDE RECORDS SUMMARY | 2023-10-17 02:39 | XMS_ITS | Encounter Summary ---
Author Organization [facility] [place] Address [address] [place] [address] Care Team Providers Care Caving Guide Name Role Phone Unavailable Primary Care Provider Unavailabl e Encounter Details Date Type Department Care Team (Late st Contact Info) Description 09/22/2023 Treatment [facility] [place] [address] [place] [address] Viji Chavez, LOBBY CONCIERGE-DYNAMOMETER MECHANIC [address] [place] [phone] Social History Tobacco Use Types Packs/Day Years Used Date Smoking Tobacco: Never Assessed Sex and Gender Information Value Date Recorded Sex Assigned at Not on file Gender Identity Not on file Sexual Orientation Not on file documented as of this encounter Miscellaneous Notes * Dialysis Note - Viji Chavez APRN-CNP - 09/22/2023 9:53 AM CDT Date: Sep 22, 2023 Patient Name: Stephanie Norman : 1965 Chart #: [id number] Sex: F This patient was personally seen for a complete visit as part of routine monthly dialysis care. A review of the dialysis treatment, blood pressure, estimated dry weight and recent lab values was made. These were discussed with the patient and staff as necessary. Treatment Data for 09/22/2023 started at:11:32 AM Dialyzer: 180NRe Optiflux Na: 137 mEq/L Bicarb: 25 mEq/L Dialysate: 2.0 K, 2.5 Ca, 1.0 Mg, 100 Dextrose (G2251) Dialysate/Machine Temp (prescribed): 37 C Dialysate/Machine Temp (actual): 37.3 C BFR (prescribed): 450 BFR (actual): 250 Prescribed time: 03:30 EDW: 96.5 kg Access Type: Active (In Use):AVFistula-Standard/Left Upper Arm Pre Dialysis Vitals (for 09/22/2023 11:16 AM ) Pre BP (sit): 115/54 Pre Wt: 100.3 kg Temp: 98.3 F Post Dialysis Vitals (for 09/20/2023 2:59 PM ) Post BP (sit): 118/66 Post Wt: 97.5 kg Current Dialysis Vitals (for 09/22/2023 11:34 AM ) BP (sit): 110/63 AP(-) / BEAUTY CONSULTANT: 75/69 Pulse: 64 Chairside data as of 09/22/2023 11:34 AM Last 3 Treatments 09/20/2023 09/17/2023 09/15/2023 EDW (kg) 96.5 96.5 96.5 Weight Pre (kg) 100.7 99.7 100.3 Weight Post (kg) 97.5 96.4 97.3 Dialytic Weight Loss (kg) -3.2 -3.3 -3 EDW Deviation (kg) 1.0 -0.1 0.8 BP Sit Pre 121/72 118/66 109/66 BP Sit Post 118/66 114/60 117/55 UF Rate (mL/kg/hr) 9 10 9 Prescribed BFR 450 450 450 Average Delivered BFR 420 450 450 Prescribed Treatment Time 03:30 03:30 03:30 Actual Treatment Time 03:31 03:30 03:34 Last 3 Values 09/20/2023 09/01/2023 08/30/2023 Access Flow [id number] Treatment Medication Orders Medication Sig Start Date End Date Heparin Sodium (Porcine) 1,000 Units/mL Systemic 2000 units IVP Every Treatment 01/25/2023 01/24/2024 Heparin Sodium (Porcine) 1,000 Units/mL Systemic 4000 units IVP Every Treatment 01/25/2023 01/24/2024 Vitamin D (Calcitriol) Oral 0.25 mcg ORAL Every Treatment During Dialysis 06/28/2023 06/26/2024 FORGE HEATER: López Mariano MD LOCATION: [phone] SCHEDULE: -- 2nd Shift EDW: kg. DIALYZER: [...] new symptoms or concerns. Advanced Practitioner Subjective LIVE TRUCK TECHNICIAN 09/22/2023: Spoke with patient on dialysis. Today she denies SOB, chest pain or cramping. Arm access working well. Will continue to monitor weight. LIVE TRUCK TECHNICIAN 09/17/2023: Patient seen on dialysis. 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 Intact PTH is at goal. Security Business Analyst will adjust binders and vitamin D per protocol and continue to provide dietary education. Cardiovascular Assessment Blood pressures reviewed and are acceptable. Intradialytic weight gains are appropriate. Estimated dry weight is appropriate. Transplant Status: Patient is on transplant list. [facility] - [facility] Listed for Transplant at [facility] as of Apr 2021 Possible living donors x2 possibly after she attended a graduation constitution party and two people expressed interest! Resuscitation Status Stable dialysis Hip pain; getting MRI No change in prescription VIJI CHAVEZ NP [ Signed And locked electronically On 09/22/2023 at 11:56:21 AM ] Transcribed: VIJI CHAVEZ ( 09/22/2023 ) documented in this encounter Plan of Treatment Not on file documented as of this encounter Visit Diagnoses Not on filedocumented in this encounter
--- OUTSIDE RECORDS SUMMARY | 2023-10-17 02:39 | XMS_ITS | Encounter Summary ---
Author Organization [facility] Address [address] [place] [address] Care Team Providers Care Vice President Of Business Development Name Role Phone Unavailable Primary Care Provider Unavailabl e Encounter Details Date Type Department Care Team (Late st Contact Info) Description 09/15/2023 Orders Only [facility] [place] [address] [place] [address] López Mariano MD [address] [place] [address] Social History Tobacco Use Types [...] Priority Date/Time Associated Diagnosis Comments HEMATOLOGY Routine 09/15/2023 documented in this encounter Results * (ABNORMAL) HEMATOLOGY (09/15/2023) Hemoglobin 11.8(L) 12.0 - 16.0 g/dL [facility] Hemoglobin x 3 35.4(L) 36.0 - 48.0 % [facility] 09/15/2023 09/16/2023 8:0 1 AM CDT Narrative [facility] - 09/16/2023 Unless otherwise specified, test(s) performed at: [facility], [address] [place] [id number] HOT AIR FURNACE INSTALLER AND REPAIRER: John Hernandez M.D., Ph.D For any questions, please call customer service at FREQUENCY:OTHER Resulting Agency Comment Specimen source: Blood López Mariano MD LAB BLOOD ORDERABLES [facility] See order comments or contact performing lab Unknown, [place] documented in this encounter Visit Diagnoses Not on filedocumented in this encounter
--- OUTSIDE RECORDS SUMMARY | 2023-10-17 02:39 | XMS_ITS ---
Author Name [facility], [facility] Address [address] [place] [address] Phone [phone] Organization [facility] e, NA DOCUMENT DISCLAIMER Multiple document versions may exist, please be sure you review the latest version. The information in the [facility] Continuity of Care Document represents a summary of certain health and medical information. It may not contain the complete medical history for the patient and should be independently verified. The represented time in the document is Eastern Time. 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 Active April Secondary hyperparathyroidism of renal origin N25.81 Active February 20, 2019 Anemia in chronic kidney disease D63.1 Active February 20, 2019 Acidosis E87.2 Active February 20 Essential (primary) hypertension I10 Active February 20, 2019 Unspecified asthma, uncomplicated J45.909 Active February 20, 2019 Cholecystitis, unspecified K81.9 Active N ovember 2018 Polycystic kidney, unspecified Q61.3 Active February 19, 2019 End stage renal disease N18.6 Active Nove mber 2018 ALLERGIES AND ADVERSE REACTIONS Substance Reaction Severity Status Penicillins Skin Rash Active Mircera C/O Being Hot Moderate Active Mircera Unknown Mild Active Betadine Flushing (Red Skin) Moderate Active neomycin Skin Rash Active SOCIAL HISTORY Tobacco Use Status Tobacco Type Unknown if ever consumed tobacco - Caregiver Characteristics No Information Available Characteristics of Home environment No Information Available MEDICATIONS Prescribed Medications for Dialysis Treatments Medication Instructions Dosage Route Start Date End Date Stat us Acetaminophen PRN pain 650 mg Oral August 06, 2023 August 04, 2024 Active Heparin Sodium (Porcine) 1,000 Units/mL Systemic Bolus, Every Treatment, Total treatment minutes 210 4000 units Intravenous - push January 25, 2023 January 24, 2024 Active Heparin Sodium (Porcine) 1,000 Units/mL Systemic Intermittent mid run, Every Treatment, Total treatment minutes 210 2000 units Intravenous - push January 25, 2023 January 24, 2024 Active Vitamin D (Calcitriol) Oral During Dialysis, Every Treatment 0.25 mcg Oral June 28, 2023 June 26, 2024 Active Home Medications Medication Instructions Dosage Route Start Date End Date Stat us aspirin 81 mg Take by mouth once a day 1 tablet ORAL February 20, 2019 Active bupropion HCl 75 mg once a day ORAL October 06, 2023 Active carvedilol 12.5 mg Take by mouth twice a day 1/2 tablet ORAL November 20, 2020 Active citalopram 40 mg Take by mouth once a day as directed 1 tablet ORAL February 20, 2019 Active Lipitor 40 mg Take by mouth every evening 1 tablet ORAL March 20, 2020 Active loratadine 10 mg Take by mouth once a day 1 tablet ORAL February 20, 2019 Active Nexium 20 mg Take by mouth once a day 1 capsule ORAL February 20, 2019 Active pramipexole 0.25 mg Take by mouth twice a day 1 tablet ORAL April 22, 2022 Active Renvela 800 mg Take by mouth three times a day with meals 4 tablet ORAL February 02, 2023 Active torsemide 20 mg Take by mouth once a day 4 tablet ORAL February 02, 2022 Active trazodone 50 mg Take by mouth at bedtime as needed 1 tablet ORAL April 24, 2020 Active lidocaine-priloc sage 2.5-2.5% Apply to skin three times a week TOPICAL October 06, 2023 Discontinued VITAL SIGNS Post-Treatment Vital Signs Vital Sign Value Date / Time Blood Pressure-sitting 118/58 mmHg October 15, 2023 11:30 AM Blood Pressure-standing 116/72 mmHg October 15, 2023 11:30 AM Heart Rate 72 beats per minute October 14 11:30 AM Respiratory Rate 18 breaths per minute October 15, 2023 11:30 AM Temperature 96.9 deg. F October 15, 2023 11 :30 AM Weight Vital Sign Value Date / Time Estimated Dry Weight 97 kg October 10 11:59 PM Pre-Dialysis 100.20 kg October 15, 2023 11 :30 AM Post-Dialysis 97.00 kg October 15, 2023 11 :30 AM Other Other Value Date / Time Height 173 cm December 16, 2022 12:00 AM Body Mass Index 32.24 kg/m2 September 27, 2023 02 :14 PM [facility] LAB RESULTS Hematology Result Type Result Value Relevant Referen ce Range Interpretation Date Platelets 220 1000/mcL 130 - 400 1000/mcL - Olvin 2023 WBC (No Diff) 8.15 1000/mcL 4.80 - 10.80 1000/mcL - April 21, 2023 Neutrophils 78.0 % 40.0 - 75.0 % High April Transferrin Sat. (Calc) 21 % 20 - 55 % - April 21, 2023 UIBC (Calc) 198 mcg/dL 155 - 355 mcg/dL - April 21, 2023 TIBC 251 mcg/dL 185 - 515 mcg/dL - April 21, 2023 WBC (No Diff) 8.27 1000/mcL 4.80 - 10.80 1000/mcL - May 26, 2023 Platelets 201 1000/mcL 130 - 400 1000/mcL - 2023 Neutrophils 78.8 % 40.0 - 75.0 % High May Transferrin Sat. (Calc) 24 % 20 - 55 % - May 26 TIBC 246 mcg/dL 185 - 515 mcg/dL - May 26, 2023 UIBC (Calc) 186 mcg/dL 155 - 355 mcg/dL - 2023 Ferritin 984 ng/mL 10 - 291 ng/mL High May Neutrophils 82.0 % 40.0 - 75.0 % High June 23, 2023 Platelets 195 1000/mcL 130 - 400 1000/mcL - 2023 TIBC 260 mcg/dL 185 - 515 mcg/dL - June UIBC (Calc) 202 mcg/dL 155 - 355 mcg/dL - June Transferrin Sat. (Calc) 22 % 20 - 55 % - June 23, 2023 WBC (No Diff) 9.91 1000/mcL 4.80 - 10.80 1000/mcL - June 23, 2023 MCH 33.9 pg 27.0 - 31.0 pg High July 21, 2023 MCHC 33.0 g/dL 30.0 - 36.0 g/dL - July RDW 13.3 % 11.5 - 14.5 % - July 20, 024 Hemoglobin x 3 36.6 % 36.0 - 48.0 % - July Platelets 219 1000/mcL 130 - 400 1000/mcL - Apri l 2023 Neutrophils 80.0 % 40.0 - 75.0 % High July 21, 2023 Lymphocytes 11.4 % 19.0 - 48.0 % Low July 21, 2023 Monocytes 4.3 % 3.0 - 10.0 % - July 20 Eosinophil 2.2 % 0.0 - 7.0 % - July 20 Basophils 1.0 % 0.0 - 1.5 % - July 20 JESSICA 1.1 % 0.0 - 4.0 % - July 20 UIBC (Calc) 194 mcg/dL 155 - 355 mcg/dL - July Iron 66 mcg/dL 30 - 160 mcg/dL - July 21, 2023 Transferrin Sat. (Calc) 25 % 20 - 55 % - July 21, 2023 TIBC 260 mcg/dL 185 - 515 mcg/dL - July WBC (No Diff) 9.19 1000/mcL 4.80 - 10.80 1000/mcL - July 21, 2023 Hemoglobin x 3 34.2 % 36.0 - 48.0 % Low July 182023 Hemoglobin x 3 37.5 % 36.0 - 48.0 % - July 182023 Hemoglobin x 3 35.1 % 36.0 - 48.0 % Low July 192023 RDW 14.2 % 11.5 - 14.5 % - August 17 Platelets 199 1000/mcL 130 - 400 1000/mcL - August 18, 2023 Hemoglobin x 3 35.4 % 36.0 - 48.0 % Low August 18, 2023 MCHC 31.4 g/dL 30.0 - 36.0 g/dL - August 18, 2023 MCH 32.9 pg 27.0 - 31.0 pg High August 17 WBC (No Diff) 10.78 1000/mcL 4.80 - 10.80 1000/mcL - August 18, 2023 JESSICA 0.5 % 0.0 - 4.0 % - August 18, 2023 Monocytes 3.5 % 3.0 - 10.0 % - August 18, 2023 Lymphocytes 4.3 % 19.0 - 48.0 % Low August 17 Basophils 0.8 % 0.0 - 1.5 % - August 18, 2023 Eosinophil 0.7 % 0.0 - 7.0 % - August 18, 2023 Iron 79 mcg/dL 30 - 160 mcg/dL - August 17, 024 UIBC (Calc) 183 mcg/dL 155 - 355 mcg/dL - August 18, 2023 TIBC 262 mcg/dL 185 - 515 mcg/dL - August 18, 2023 Transferrin Sat. (Calc) 30 % 20 - 55 % - August 18, 2023 Ferritin 652 ng/mL 10 - 291 ng/mL High August 17 Neutrophils 90.1 % 40.0 - 75.0 % High August 17 Hemoglobin x 3 34.8 % 36.0 - 48.0 % Low September 01, 2023 Hemoglobin x 3 36.3 % 36.0 - 48.0 % - September 08, 2023 Hemoglobin x 3 35.4 % 36.0 - 48.0 % Low September 15, 2023 Hemoglobin x 3 35.1 % 36.0 - 48.0 % Low September Platelets 204 1000/mcL 130 - 400 1000/mcL - September 22, 2023 HCT 37.5 % 37.0 - 47.0 % - September 21 MCH 32.6 pg 27.0 - 31.0 pg High September 21, MCHC 31.3 g/dL 30.0 - 36.0 g/dL - September 22, 2023 RDW 14.6 % 11.5 - 14.5 % High September 21 HGB 11.7 g/dL 12.0 - 16.0 g/dL Low September 22, 2023 Basophils 1.5 % 0.0 - 1.5 % - September 22, 2023 JESSICA 1.0 % 0.0 - 4.0 % - September 22, 2023 WBC (No Diff) 8.66 1000/mcL 4.80 - 10.80 1000/mcL - September 22, 2023 RBC 3.61 mill/mcL 4.20 - 5.40 mill/mcL Low September 22, 2023 Iron 60 mcg/dL 30 - 160 mcg/dL - September 22, 2023 Neutrophils 83.2 % 40.0 - 75.0 % High September 21 Lymphocytes 7.7 % 19.0 - 48.0 % Low Mini 05, 2 024 Monocytes 4.4 % 3.0 - 10.0 % - September 21 4 Eosinophil 2.1 % 0.0 - 7.0 % - September 22, 2023 Transferrin Sat. (Calc) 27 % 20 - 55 % - September 22, 2023 UIBC (Calc) 163 mcg/dL 155 - 355 mcg/dL - September TIBC 223 mcg/dL 185 - 515 mcg/dL - September 22, 2023 Hemoglobin x 3 35.7 % 36.0 - 48.0 % Low September HGB 11.9 g/dL 12.0 - 16.0 g/dL Low September 29, 2023 HGB 11.9 g/dL 12.0 - 16.0 g/dL Low October 06, 2023 Hemoglobin x 3 35.7 % 36.0 - 48.0 % Low September HGB 11.8 g/dL 12.0 - 16.0 g/dL Low October 13, 2023 Hemoglobin x 3 35.4 % 36.0 - 48.0 % Low September Metabolic/Renal Result Type Result Value Relevant Reference Range Interpre tation Date BUN/Creat Ratio 6.2 10.0 - 20.0 Low July Creatinine, Serum 9.75 mg/dL 0.60 - 1.30 mg/dL High July 21, 2023 BUN 60 mg/dL 6 - 19 mg/dL High July 20 BUN, Post 14 mg/dL 6 - 19 mg/dL - July 20 URR, Calc 77 % 65 - 80 % - July 21, 2023 Bicarbonate 21 mEq/L 20 - 31 mEq/L - July 21, 2023 Chloride 102 mEq/L 96 - 108 mEq/L - July 21, 2023 Potassium 5.6 mEq/L 3.5 - 5.1 mEq/L High July 21, 2023 Sodium 133 mEq/L 136 - 145 mEq/L Low July 21, 2023 BUN 66 mg/dL 6 - 19 mg/dL High August 18, 2023 Chloride 101 mEq/L 96 - 108 mEq/L - August 17 Bicarbonate 21 mEq/L 20 - 31 mEq/L - August 17 Creatinine, Serum 10.54 mg/dL 0.60 - 1.30 mg/dL High August 18, 2023 BUN/Creat Ratio 6.3 10.0 - 20.0 Low August 18, 2023 Sodium 136 mEq/L 136 - 145 mEq/L - August 17, 2 024 Potassium 5.1 mEq/L 3.5 - 5.1 mEq/L - August 17, 024 URR, Calc 73 % 65 - 80 % - August 18, 2023 BUN, Post 18 mg/dL 6 - 19 mg/dL - August 18, 2023 URR, Calc 76 % 65 - 80 % - September 22, 2023 BUN, Post 12 mg/dL 6 - 19 mg/dL - September 21 4 Bicarbonate 21 mEq/L 20 - 31 mEq/L - September 21, 024 Creatinine, Serum 9.86 mg/dL 0.60 - 1.30 mg/dL High September 22, 2023 BUN/Creat Ratio 5.1 10.0 - 20.0 Low September 22, 2023 BUN 50 mg/dL 6 - 19 mg/dL High September 21 4 Potassium 5.3 mEq/L 3.5 - 5.1 mEq/L High September 22, 2023 Chloride 102 mEq/L 96 - 108 mEq/L - September 21, 2 024 Sodium 135 mEq/L 136 - 145 mEq/L Low September 22, 2023 HD Adequacy Result Type Result Value Relevant Referen ce Range Interpretation Date Krt/V 0.00 No Reference Ran ge Provided - April 21, 2023 Krt/V 0.00 No Reference Ran ge Provided - May 26, 2023 Krt/V 0.00 No Reference Ran ge Provided - June 23, 2023 wstdKt/V 2.5 No Reference Ran ge Provided - July 21, 2023 eKt/V ([place]) 1.41 No Reference Range Provided - July 21, 2023 wstdKt/V, residual 0.0 No Reference Range Provided - July 21, 2023 Krt/V 0.00 No Reference Ran ge Provided - July 21, 2023 spKt/V (Daugirdas II) 1.68 No Reference Range Provided - July 21, 2023 spKt/V Gotch 1.78 No Reference Ran ge Provided - July 21, 2023 wstdKt/V without residual 2.5 No Reference Range Provided - July 21, 2023 wstdKt/V without residual 2.4 No Reference Range Provided - August 18, 2023 wstdKt/V 2.4 No Reference Ran ge Provided - August 18, 2023 spKt/V Gotch 1.62 No Reference Ran ge Provided - August 18, 2023 eKt/V ([place]) 1.32 No Reference Range Provided - August 18, 2023 Krt/V 0.00 No Reference Ran ge Provided - August 18, 2023 wstdKt/V, residual 0.0 No Reference Range Provided - August 18, 2023 spKt/V (Daugirdas II) 1.54 No Reference Range Provided - August 18, 2023 wstdKt/V without residual 2.5 No Reference Range Provided - September 22, 2023 Krt/V 0.00 No Reference Ran ge Provided - September 22, 2023 wstdKt/V, residual 0.0 No Reference Range Provided - September 22, 2023 spKt/V Gotch 1.79 No Reference Ran ge Provided - September 22, 2023 eKt/V ([place]) 1.44 No Reference Range Provided - September 22, 2023 spKt/V (Daugirdas II) 1.68 No Reference Range Provided - September 22, 2023 wstdKt/V 2.5 No Reference Ran ge Provided - September 22, 2023 Bone/Mineral Result Type Result Value Relevant Referen ce Range Interpretation Date Magnesium 2.4 mg/dL 1.6 - 2.6 mg/dL - October 21, 2022 Vitamin D 25 Hydroxy 23.3 ng/mL 30.0 - 100.0 ng/mL Low October 21, 2022 Vitamin D 1,25 Dihydroxy 12.8 pg/mL 19.9 - 79.3 pg/mL Low October 21, 2022 Magnesium 2.3 mg/dL 1.6 - 2.6 mg/dL - January Vitamin D 1,25 Dihydroxy 19.9 pg/mL 19.9 - 79.3 pg/mL - February 17 Vitamin D 25 Hydroxy 16.4 ng/mL 30.0 - 100.0 ng/mL Low February 17, 2023 Magnesium 2.4 mg/dL 1.6 - 2.6 mg/dL - February 17, 2023 PTH-Intact, Plasma 143 pg/mL 16 - 80 pg/mL High Feb ru2023 Magnesium 2.5 mg/dL 1.6 - 2.6 mg/dL - May 26, 2023 PTH-Intact, Plasma 154 pg/mL 16 - 80 pg/mL High Mar 2023 PTH-Intact, Plasma 208 pg/mL 16 - 80 pg/mL High Jul Corrected Ca x P Product 36 0 - July 21, 2023 Phosphorus 3.9 mg/dL 2.6 - 4.5 mg/dL - July 21, 2023 Calcium, Total 9.4 mg/dL 8.7 - 10.4 mg/dL - Apr l 2023 Ca x P Product 37 0 - July 21, 2023 Vitamin D 1,25 Dihydroxy 8.0 pg/mL 19.9 - 79.3 pg/mL Low August 18, 2023 Calcium, Total 9.6 mg/dL 8.7 - 10.4 mg/dL - August 18, 2023 Phosphorus 3.0 mg/dL 2.6 - 4.5 mg/dL - August 17, 024 Ca x P Product 29 0 - - August 17, 20 24 PTH-Intact, Plasma 247 pg/mL 16 - 80 pg/mL High August 18, 2023 Alkaline Phosphatase 92 U/L 35 - 104 U/L - 2023 Magnesium 2.6 mg/dL 1.6 - 2.6 mg/dL - August 17, 2 024 Corrected Ca x P Product 28 0 - August 18, 2023 Phosphorus 4.9 mg/dL 2.6 - 4.5 mg/dL High September 22, 2023 Ca x P Product 45 0 - September 21, 2 024 Calcium, Total 9.2 mg/dL 8.7 - 10.4 mg/dL - September 22, 2023 Corrected Ca x P Product 45 0 - September 22, 2023 Liver/Nutrition Result Type Result Value Relevant Reference Range Interpre tation Date eNPCR 1.05 No Reference Ran ge Provided - July 21, 2023 A/G Ratio 1.5 1.0 - 2.0 - July 21, 2023 Globulin (Calc) 2.9 g/dL 2.0 - 4.0 g/dL - July 21, 2023 Total Protein 7.2 g/dL 6.0 - 8.5 g/dL - July Albumin (BCG) 4.3 g/dL 3.5 - 5.2 g/dL - July eNPCR 1.10 No Reference Ran ge Provided - August 18, 2023 Total Protein 7.2 g/dL 6.0 - 8.5 g/dL - August 18, 2023 A/G Ratio 1.4 1.0 - 2.0 - August 18, 2023 Albumin (BCG) 4.2 g/dL 3.5 - 5.2 g/dL - August 18, 2023 Globulin (Calc) 3.0 g/dL 2.0 - 4.0 g/dL - August Total Protein 6.8 g/dL 6.0 - 8.5 g/dL - September Albumin (BCG) 4.1 g/dL 3.5 - 5.2 g/dL - September A/G Ratio 1.5 1.0 - 2.0 - September 22, 2023 Globulin (Calc) 2.7 g/dL 2.0 - 4.0 g/dL - September 22, 2023 eNPCR 0.92 No Reference Ran ge Provided - September 22, 2023 Immunochemistry Result Type Result Value Relevant Reference Range Interpre tation Date HCV s/co ratio 0.07 0.00 - 0.79 - November HCV s/co ratio < 0.02 0.00 - 0.79 - February 17, 2023 Trace Elements Result Type Result Value Relevant Reference Range Interpre tation Date Aluminum < 5 mcg/L 0 - 10 mcg/L - February 17, 2023 Infectious Diseases Result Type Result Value Relevant Referen ce Range Interpretation Date HCV Ab (anti-HCV) Nonreactive No Reference R ashley Provided - February 17, 2023 Hep B Surface Ab (anti-HBs) 117 mIU/mL No Reference Range Provided - February 17, 2023 Hep B Surface Ag (HBsAg) Negative No Reference Range Provided - February 17, 2023 DIALYSIS PRESCRIPTION Conventional Hemodialysis Data Element Value Order Date/Time October 11, 2023 Frequency 3X Week Treatment Days MonWedFri Dialyzer 180NRe Optiflux Treatment Time (Total Minutes) 210 min Blood Flow Rate (mL/min) 450 mL/min Dialysate Flow Rate Manual 800 Estimated Dry Weight 97 kg Dialysate Concentrate 2.0 K, 2.5 Ca, 1.0 Mg, 100 Dextrose (G2251) Sodium (mEq/L) 137 mEq/L Bicarb Machine Setting (mEq/L) 27 mEq/L Dialysis Access Hemodialysis-AV Fist katharine-Standard, Left Upper Arm, Brachial Artery to Cephalic Vein Access Placed on April 25, 2019 Arterial Needle Size 15g1 Venous Needle Size 15g1 IMMUNIZATIONS Vaccine Date Dose Route Status COMIRNATY - COVID-19 Vaccine (Tianji) March 12, 2023 0.3 mL Intramuscular Completed Flu Vaccine - Flublok Quadrivalent January 27, 2023 0.5 mL Intramuscular Completed Tianji COVID-19 Vac cine, Bivalent, Booster January 26, 2022 0.3 mL Intramuscular Completed Moderna COVID-19 Vaccine, Booster February 28, 2021 0.25 m L Intramuscular Completed PREVNAR 13 August 21, 2020 0.5 mL Intramuscular Completed Moderna COVID-19 Vaccine, Do se 2 of 2 June 10, 2020 0.5 mL Intramuscular Completed Moderna COVID-19 Vaccine, Do se 1 of 2 May 17, 2020 0.5 mL Intramuscular Completed DIMSMSA-J-BDVWP, series 4 of August 23, 2019 40.0 mcg Int ramuscular Completed GIDTACI-C-TRNNB, series 3 of 4 April 25, 2019 40.0 mcg Intramuscular Completed NGUNUQH-W-LBZPQ, series 2 of 4 March 25, 2019 40.0 mcg Intramuscular Completed [id number]-V-KTJXQ, series 1 of February 22, 2019 40.0 mcg Intramuscular Completed TRANSPLANT WAITLIST STATUS No Information on Transplant Waitlist Status ADVANCE DIRECTIVES Directive Description Ordered By Effective Date Resuscitation status Full Code López Mariano Feb 25, 2023 DIALYSIS TREATMENTS Conventional Hemodialysis Date Pre-Treatment Vitals Post-Treatment Analia ls Duration (hr) BFR (mL/min) Dialysate Dialyzer Dialysis Access Meds Admin October 11, 2023 Weight 100.30 kg Weight 97.40 kg 03:32:00 450 2.0 K, 2.5 Ca, 1.0 Mg, 100 Dextrose (G2251) 180nre Optifl ux Blood Pressure-sitting 127/67 mmHg Blood Pressure-sit ting 92/59 mmHg Blood Pressure-standing 152/83 mmHg Blood Pressure-st anding 112/74 mmHg Heart Rate 71 beats per minute Heart Rate 60 beats per minute Respiratory Rate 18 breaths per minute Respiratory Rate 16 breaths per minute Temperature 97.0 deg. F Temperature 97.8 deg. F October 13, 2023 Weight 100.10 kg Weight 97.30 kg 03:30:00 450 2.0 K, 2.5 Ca, 1.0 Mg, 100 Dextrose (G2251) 180nre Optiflux Hemodialysis-AV Fistula-Standard, Left Upper Arm, Brachial Artery to Cephalic Vein Access Placed on April 25, 2019 Heparin Sodium (Porcine) 1,000 Units/mL Systemic; 2000units,Intravenous - push Heparin Sodium (Porcine) 1,000 Units/mL Systemic; 4000units,Intravenous - push Vitamin D (Calcitriol) Oral; 0.25mcg,Oral Blood Pressure-sitting 110/57 mmHg Blood Pressure-sit ting 110/65 mmHg Blood Pressure-standing 139/83 mmHg Blood Pressure-st anding 116/78 mmHg Heart Rate 71 beats per minute Heart Rate 70 beats per minute Respiratory Rate 18 breaths per minute Respiratory Rate 18 breaths per minute Temperature 97.8 deg. F Temperature 97.6 deg. F October 15, 2023 Weight 100.20 kg Weight 97.00 kg 03:30:00 460 2.0 K, 2.5 Ca, 1.0 Mg, 100 Dextrose (G2251) 180nre Optiflux Hemodialysis-AV Fistula-Standard, Left Upper Arm, Brachial Artery to Cephalic Vein Access Placed on April 25, 2019 Heparin Sodium (Porcine) 1,000 Units/mL Systemic; 4000units,Intravenous - push Heparin Sodium (Porcine) 1,000 Units/mL Systemic; 2000units,Intravenous - push Vitamin D (Calcitriol) Oral; 0.25mcg,Oral Blood Pressure-sitting 128/68 mmHg Blood Pressure-sit ting 118/58 mmHg Blood Pressure-standing 131/78 mmHg Blood Pressure-st anding 116/72 mmHg Heart Rate 74 beats per minute Heart Rate 72 beats per minute Respiratory Rate 18 breaths per minute Respiratory Rate 18 breaths per minute Temperature 98.3 deg. F Temperature 96.9 deg. F
--- OUTSIDE RECORDS SUMMARY | 2023-10-17 02:39 | XMS_ITS | Encounter Summary ---
Author Organization [facility] Address [address] [place] [address] Care Team Providers Care Professor Of Historical Theology Name Role Phone Unavailable Primary Care Provider Unavailabl e Encounter Details Date Type Department Care Team (Late st Contact Info) Description 09/22/2023 Orders Only [facility] [address] [place] [address] López Mariano MD [address] [place] [address] Social History Tobacco Use Types [...] Date/Time Associated Diagnosis Comments HD KINETICS Routine 09/22/2023 POST CHEMISTRY Routine 09/22/2023 HEMATOLOGY Routine 09/22/2023 CHEMISTRY Routine 09/22/2023 [facility] RESULTS Routine 09/22/2023 documented in this encounter Results * [facility] Results (09/22/2023) eKdrt/V 1.51 [facility] eKt/V Gotch 1.51 [facility] eNPCR 0.92 [facility] spKt/V (Daugirdas II) 1.68 [facility] spKt/V Gotch 1.79 [facility] [place] nPCR_HD 0.99 [facility] eKt/V ([place]) 1.44 [facility] PCR 52.47 [facility] WSTDKT/V 2.5 [facility] 09/22/2023 09/22/2023 [place] Ordering Provider LAB BLOOD ORDERABLE S Performing Organization Address [facility] Co de Phone Number [facility] Contact Performing lab Unknown, [place] * HD KINETICS (09/22/2023) % Urea Reduction 76 65 - 80 % [facility] 09/22/2023 09/24/2023 2:1 1 AM CDT Narrative Resulting Agency Comment Specimen source: Plasma López Mariano MD LAB BLOOD ORDERABLES Performing Organization Address [facility] de Phone Number [facility] See order comments or contact performing lab Unknown, [place] * POST CHEMISTRY (09/22/2023) BUN Post Dialysis 12 6 - 19 mg/dL [facility] 09/22/2023 09/24/2023 2:1 1 AM CDT Narrative [facility] - 09/24/2023 Unless otherwise specified, test(s) performed at: [facility], [address] [place] [address], [place] [address] [employer]NAGER [employer]: John Hernandez M.D., Ph.D For any questions, please call customer service at FREQUENCY:MONTHLY Resulting Agency Comment Specimen source: Plasma López Mariano MD LAB BLOOD ORDERABLES Performing Organization Address [facility] de Phone Number [facility] See order comments or contact performing lab Unknown, [place] * (ABNORMAL) [facility] Chemistry (09/22/2023) BUN 50(H) 6 - 19 mg/dL [facility] [...] 09/22/2023 09/23/2023 4:2 7 PM CDT Narrative [facility] - 09/23/2023 Unless otherwise specified, test(s) performed at: [facility], [address] [place] [address], [place] [address] MANAGER TECH[employer]ICAL SERVICES: John Hernandez M.D., Ph.D For any questions, please call customer service at FREQUENCY:MONTHLY Resulting Agency Comment Specimen source: Serum López Mariano MD LAB BLOOD ORDERABLES [facility] See order comments or contact performing lab Unknown, [place] * (ABNORMAL) HEMATOLOGY (09/22/2023) Neutrophils 83.2(H) 40.0 - 75.0 % [facility] Lymphocytes Relative 7.7(L) 19.0 - 48.0 % [facility] Monocytes 4.4 3.0 - 10.0 % [facility] Eosinophils Relative 2.1 0.0 - 7.0 % [facility] Basophils Relative 1.5 0.0 - 1.5 % [facility] JESSICA 1.0 0.0 - 4.0 % [facility] WBC 8.66 4.80 - 10.80 1000/mcL [facility] RBC 3.61(L) 4.20 - 5.40 mill/mcL [facility] Hematocrit 37.5 37.0 - 47.0 % [facility] MCV 104(H) 80 - 100 fl [facility] MCH 32.6(H) 27.0 - 31.0 pg [facility] MCHC 31.3 30.0 - 36.0 g/dL [facility] RDW 14.6(H) 11.5 - 14.5 % [facility] Hemoglobin 11.7(L) 12.0 - 16.0 g/dL [facility] Hemoglobin x 3 35.1(L) 36.0 - 48.0 % [facility] Platelets 204 130 - 400 1000/mcL [facility] 09/22/2023 09/23/2023 12: 56 PM CDT Narrative [facility] - 09/23/2023 Unless otherwise specified, test(s) performed at: [facility], [address] [place] [address], [place] [address] MANAGER TECH[employer]ICAL SERVICES: John Hernandez M.D., Ph.D For any questions, please call customer service at FREQUENCY:MONTHLY Resulting Agency Comment Specimen source: Blood López Mariano MD LAB BLOOD ORDERABLES [facility] See order comments or contact performing lab Unknown, [place] documented in this encounter Visit Diagnoses Not on filedocumented in this encounter
--- OUTSIDE RECORDS SUMMARY | 2023-10-17 02:40 | XMS_ITS | Encounter Summary ---
Author Organization [facility] Address [address] [place] [address] Care Team Providers Care Gaming Worker Name Role Phone Haylee Alanis APRN, CNP Primary Care Provide r Encounter Details Date Type Department Care Team (Late st Contact Info) Description 03/31/2011 Correspondence External to External, [place] [address] [facility] SIGNATURE OF DELIVERY Social History Tobacco [...] on filedocumented in this encounter Care Teams Gaming Worker Relationship Specialty Start Date End Date Haylee Alanis APRN, CNP [address] [place] [address] PCP - General Nurse Practitioner 02/04/16 documented as of this encounter
--- OUTSIDE RECORDS SUMMARY | 2023-10-17 02:40 | XMS_ITS | Encounter Summary ---
Author Organization [facility] Address [address] [place] [address] Care Team Providers Care Typist Name Role Phone Unavailable Primary Care Provider Unavailabl e Encounter Details Date Type Department Care Team (Late st Contact Info) Description 07/14/2023 Orders Only [facility] [place] [address] [place] [address] López Mariano MD [address] [place] [address] Social History Tobacco Use Types [...] 07/15/2023 Unless otherwise specified, test(s) performed at: [facility], [address] [place] [address], [place] [address] PHOTONICS TECHNICIAN: John Hernandez M.D., Ph.D For any questions, please call customer service at FREQUENCY:OTHER Resulting Agency Comment Specimen source: Blood López Mariano MD LAB BLOOD ORDERABLES [facility]PS [facility] documented in this encounter Visit Diagnoses Not on filedocumented in this encounter
--- OUTSIDE RECORDS SUMMARY | 2023-10-17 02:40 | XMS_ITS | Encounter Summary ---
Author Organization [facility] Address [address] [place] [address] Care Team Providers Care Jacquard Loom Weaver Name Role Phone Haylee Alanis APRN, CNP Primary Care Provide r Encounter Details Date Type Department Care Team (Late st Contact Info) Description 08/24/2013 Outside Hospital External to External, [place] [address] DISCHARGE SUMMARY Social History Tobacco Use Types [...] on filedocumented in this encounter Care Teams Jacquard Loom Weaver Relationship Specialty Start Date End Date Haylee Alanis APRN, CNP [address] [place] [address] PCP - General Nurse Practitioner 02/04/16 documented as of this encounter
--- OUTSIDE RECORDS SUMMARY | 2023-10-17 02:40 | XMS_ITS | Encounter Summary ---
Author Organization [facility] Address [address] [place] [address] Care Team Providers Care Forest Law And Policy Professor Name Role Phone Unavailable Primary Care Provider Unavailabl e Encounter Details Date Type Department Care Team (Late st Contact Info) Description 08/06/2023 Treatment [facility] [place] [address] [place] [address] López Mariano MD [address] [place] [address] Social History Tobacco Use Types Packs/Day Years Used Date Smoking Tobacco: Never Assessed Sex and Gender Information Value Date Recorded Sex Assigned at Not on file Gender Identity Not on file Sexual Orientation Not on file documented as of this encounter Miscellaneous Notes * Dialysis Note - López Mariano MD - 08/06/2023 1:49 PM CDT Date: Aug 06, 2023 Patient Name: Stephanie Norman : 1965 Chart #: [id number] Sex: F This patient was personally seen for a complete visit as part of routine monthly dialysis care. A review of the dialysis treatment, blood pressure, estimated dry weight and recent lab values was made. These were discussed with the patient and staff as necessary. Treatment Data for 08/06/2023 started at:11:26 AM Dialyzer: 180NRe Optiflux Na: 137 mEq/L Bicarb: 25 mEq/L Dialysate: 2.0 K, 2.5 Ca, 1.0 Mg, 100 Dextrose (G2251) Dialysate/Machine Temp (prescribed): 37 C Dialysate/Machine Temp (actual): 36.8 C BFR (prescribed): 450 BFR (actual): 450 Prescribed time: 03:30 EDW: 95 kg Access Type: Active (In Use):AVFistula-Standard/Left Upper Arm Pre Dialysis Vitals (for 08/06/2023 11:18 AM ) Pre BP (sit): 140/68 Pre Wt: 98.9 kg Temp: 96.1 F Post Dialysis Vitals (for 08/04/2023 2:09 PM ) Post BP (sit): 108/52 Post Wt: 96.3 kg Current Dialysis Vitals (for 08/06/2023 1:31 PM ) BP (sit): 107/42 AP(-) / RED CROSS EXECUTIVE DIRECTOR: 226/201 Pulse: 66 Chairside data as of 08/06/2023 1:31 PM Last 3 Treatments 08/04/2023 08/02/2023 07/30/2023 EDW (kg) 95 95 95 Weight Pre (kg) 98.9 99.5 98.4 Weight Post (kg) 96.3 95.9 95.7 Dialytic Weight Loss (kg) -2.6 -3.6 -2.7 EDW Deviation (kg) 1.3 0.9 0.7 BP Sit Pre 121/63 144/64 129/66 BP Sit Post 108/52 114/54 108/39 UF Rate (mL/kg/hr) 10 11 8 Prescribed BFR 450 450 450 Average Delivered BFR 450 450 450 Prescribed Treatment Time 03:30 03:30 03:30 Actual Treatment Time 02:37 03:30 03:31 Last 3 Values 07/19/2023 06/21/2023 05/24/2023 Access Flow > 2000 1557 > 2000 Treatment Medication Orders Medication Sig Start Date End Date Heparin Sodium (Porcine) 1,000 Units/mL Systemic 2000 units IVP Every Treatment 01/25/2023 01/24/2024 Heparin Sodium (Porcine) 1,000 Units/mL Systemic 4000 units IVP Every Treatment 01/25/2023 01/24/2024 Vitamin D (Calcitriol) Oral 0.25 mcg ORAL Every Treatment During Dialysis 06/28/2023 06/26/2024 GLAZIER APPRENTICE: López Mariano MD LOCATION: [facility] [phone] SCHEDULE: -W- 2nd Shift EDW: kg. DIALYZER: HD DURATION: NEEDLE SIZE: ANTICOAG: BATH: QB: ml/min QD: ml/min Subjective No new complaints. 08/05: She currently has a flair up of hip pain on the L side She is seeing Chiropracter and has another appt next week, has helped in past. She will see PCP and consider other work-up if not improvedafter this. She had to cut treatment short on Wed due to this, but hopefully will achieve dry weight today. Otherwise dialysis is going well and she feels great and has no other concerns. Advanced Practitioner Subjective DENTAL TECHNOLOGY ADVISOR 07/28/2023: Spoke with patient at chairside. Doing well. Has pain in right hand for the past week; unsure what happened. Will try to go get xray after dialysis. Denies SOB, chest pain, cramping or dizziness. BP stable. AVF working well; no reported issues from staff. Getting to EDW. Continue planof care. No changes today. DENTAL TECHNOLOGY ADVISOR 07/02/2023: Patient seen on dialysis. No new [...] of access: Fistula Send for fistulagram. [place] [facility] outflow vein moderate stenosis s/p angioplasty with good success 05/2022: Fistulagram scheduled for pain surrounding access and collateral vessels -> app[place]18/22 [place] [facility] for fist[place] Fistulagram 12/2020 patent and no stenosis. Working well now was of 02/2021 Anemia Assessment HEMOGLOBIN (G/DL) IN BLOOD g/dL 12.5 (08/04/23) 11.4 (07/28/23) 12.2 (07/21/23) 12.3 (07/14/23) 12.1 (07/07/23) PLATELETS 1000/mcL 219 (07/21/23) 195 (06/23/23) 201 [...] at goal. Intact PTH is at goal. Hull And Deck Remover will adjust binders and vitamin D per protocol and continue to provide dietary education. Cardiovascular Assessment Blood pressures reviewed and are acceptable. Intradialytic weight gains are appropriate. Estimated dry weight is appropriate. Transplant Status: Patient is on transplant list. [facility] [place] Listed for Transplant at [place] as of Apr 2021 Possible living donors x2 possibly after she attended a graduation republican and two people expressed interest! Resuscitation Status Stable dialysis, no change in prescription López Mariano MD [ Signed And locked electronically On 08/06/2023 at 01:51:02 PM ] Transcribed: López Mariano ( 08/06/2023 ) documented in this encounter Plan of Treatment Not on file documented as of this encounter Visit Diagnoses Not on filedocumented in this encounter
--- OUTSIDE RECORDS SUMMARY | 2023-10-17 02:40 | XMS_ITS | Encounter Summary ---
Author Organization [facility] Address [address] [facility] [place] [address] Care Team Providers Care Director Mba Name Role Phone Haylee Alanis APRN, CNP Primary Care Provide r Encounter Details Date Type Department Care Team (Late st Contact Info) Description 04/15/2011 Correspondence None Inactive, Provider PAP EQUIPMENT PICK-UP [...] filedocumented in this encounter Care Teams Director Mba Relationship Specialty Start Date End Date Haylee Alanis APRN, CNP [address] [address] PCP - General Nurse Practitioner 02/04/16 documented as of this encounter
--- OUTSIDE RECORDS SUMMARY | 2023-10-17 02:40 | XMS_ITS | Encounter Summary ---
Author Organization [facility] Address [address] [place] [address] Care Team Providers Care Physicist Acoustics Name Role Phone Haylee Alanis APRN, CNP Primary Care Provide r Encounter Details Date Type Department Care Team (Latest Contact Info) Description 12/19/1996 Orders Only Soren Padilla MD [facility] OCCUPATIONAL [facility]IC[facility] [place] [address] Social History Tobacco Use Types [...] on filedocumented in this encounter Care Teams Physicist Acoustics Relationship Specialty Start Date End Date Haylee Alanis APRN, CNP [address] [place] [address] PCP - General Nurse Practitioner 02/04/16 documented as of this encounter
--- OUTSIDE RECORDS SUMMARY | 2023-10-17 02:40 | XMS_ITS | Encounter Summary ---
Author Organization [facility] Address [address] [place] [address] Care Team Providers Care Transformation Architect Name Role Phone Haylee Alanis APRN, CNP [...] on filedocumented in this encounter Care Teams Transformation Architect Relationship Specialty Start Date End Date Haylee Alanis APRN, CNP [address] [place], [place] [address] PCP - General Nurse Practitioner 02/04/16 documented as of this encounter
--- OUTSIDE RECORDS SUMMARY | 2023-10-17 02:40 | XMS_ITS | Encounter Summary ---
Author Organization [facility] Address [address] [place] [address] Care Team Providers Care Irrigation Tax Assessor Collector Name Role Phone Haylee Alanis APRN, AMY Primary Care Provide r Encounter Details Date Type Department Care Team (Late st Contact Info) Description 04/17/[address] [facility] [address] [place] [address] Tiffany Gonzalez APRN, [facility] [address] [place] [address] Social History Tobacco Use Types Packs/Day Years [...] in it. She does not have a shopfitter that she regularly follows up with. New [...] ABNORMAL CREATININE LEVEL, POLYCYSTIC KIDNEY DISEASE cc: GHT DELIVERY DRIVER documented in this encounter Plan of Treatment Not on file documented as of this encounter Visit Diagnoses Not on filedocumented in this encounter Care Teams Irrigation Tax Assessor Collector Relationship Specialty Start Date End Date Haylee Alanis, LEG BREAKER, AMY [address] [place] [address] PCP - General Nurse Practitioner 02/04/16 documented as of this encounter
--- OUTSIDE RECORDS SUMMARY | 2023-10-17 02:40 | XMS_ITS | Encounter Summary ---
Author Organization [facility] Address [address] [place] [address] Care Team Providers Care Carpet Inspector Name Role Phone Haylee Alanis APRN, CNP Primary Care Provide r Encounter Details Date Type Department Care Team (Late st Contact Info) Description 08/23/2013 Outside Hospital External to External, [place] [address] HISTORY PHYSICAL Social History Tobacco Use Types [...] on filedocumented in this encounter Care Teams Carpet Inspector Relationship Specialty Start Date End Date Haylee Alanis APRN, CNP [address] [address] PCP - General Nurse Practitioner 02/04/16 documented as of this encounter
--- OUTSIDE RECORDS SUMMARY | 2023-10-17 02:40 | XMS_ITS | Encounter Summary ---
Author Organization [facility] Address [address] [place] [address] Care Team Providers Care Chilling Hood Operator Name Role Phone Haylee Alanis APRN, CNP [...] on filedocumented in this encounter Care Teams Chilling Hood Operator Relationship Specialty Start Date End Date Haylee Alanis APRN, CNP [address] [place], [place] [address] PCP - General Nurse Practitioner 02/04/16 documented as of this encounter
--- OUTSIDE RECORDS SUMMARY | 2023-10-17 02:40 | XMS_ITS | Encounter Summary ---
Author Organization [facility] Address [address] [place] [address] Care Team Providers Care Wind Energy Technician Name Role Phone Haylee Alanis APRN, CNP Primary Care Provide r Encounter Details Date Type Department Care Team (Late st Contact Info) Description 08/24/2013 Outside Hospital External to External, [place] [address] DISCHARGE SUMMARY Social History Tobacco Use Types [...] Technician Relationship Specialty Start Date End Date Haylee Alanis APRN, CNP [address] [place] [address] PCP - General Nurse Practitioner 02/04/16 documented as of this encounter
--- OUTSIDE RECORDS SUMMARY | 2023-10-17 02:40 | XMS_ITS | Clinical Summary ---
Author Organization [facility] Address [address] [place] [address] Care Team Providers Care Cognos Report Developer Name Role Phone Haylee Alanis APRN, CNP Primary Care Provide r Source Comments You are receiving this document as you are listed as the primary care provider,follow-up provider, or the patient has been referred to you for consultation.This is in compliance with the Medicare andMedicaid EHR Incentive Program,which states Providers who transition their patient to another setting of careor provider of care or refers their patient to another provider of care shouldprovide summary care record for each transition of care or referral. [employer] Allergies Active Allergy Reactions Criticality Noted Date [...] mg) by mouth daily. 10/03/2020 Active B Uzonlcz-J-Dwtat Acid (USAMA CAPS) 1 MG Take 1 [...] immunization 05/14/2020 Atherosclerotic heart diseas e of [place] coronary artery without angina pectoris 04/24/2020 Acidosis [...] with hyperglyceridemia 06/17 Allergic rhinitis 10/22/2004 Overview: [facility] Reflux esophagitis 06/01/2003 Polycystic kidney 06/01/2003 Overview: [facility] Essential hypertension 06/01/2003 Overview: [facility] Varicella 12/20/1996 Overview: [facility] Resolved Problems Problem Noted Date Diagnosed Date [...] (Injected) 05/14/2009 Influenza IIV4 (Quadrivalent ) 0.5mL (18917) 02/04/2016,12/21/2013 Influenza, Unspecified Formulation 01/24/1997 PPSV23 (Pneumovax) [...] 03/08/2012, Additional history exists Cholesterol 09/20/2019 09/19/2014, 0311/2013, 03/14/2012, Additional history exists DTaP/Tdap/Td (2 - Tdap) 05/18/2021 05/18/19 12, 2006, 12/19/1996 COVID-19 Vaccine ( season) 2022 02/28/2021, 06/10/2020, 05/17/2020 Influenza (Season Ended) 2023 022, 01/31/2021, 01/24/2020, Additional history exists Pneumococcal (3 - [...] BILAT W CAD Routine 03/05/2016 11:50 AM CARTRIDGE MAKER HEPATITIS C ANTIBODY, WITH REFLEX Routine 02/04/2016 1:58 PM CDT LIPID PANEL & DIRECT LDL (IF NEEDED) Routine 09/19/2014 7:33 AM CDT Hypercholesterolemia with hyperglyceridemia PAP TEST, ROUTINE Routine 03/14/2012 12: 00 AM CARTRIDGE MAKER Screening for cervical cancer from Last 3 Months or Most Recently Relevant to Health Maintenance Results * MM Mammogram Screening Bilat W CAD (03/05/2016 11:50 AM CARTRIDGE MAKER) Anatomical Region Laterality Modality Breast Bilateral Mammography Impressions 03/06/2016 3:49 PM CARTRIDGE MAKER : ACR BI-RADS Category 1: Negative RECOMMENDATION: Follow Up Imaging in 12 months - Bilateral The results and recommendations of this examination will be communicated to the patient. Narrative 03/06/2016 3:49 PM CARTRIDGE MAKER MM MAMMOGRAM SCREENING BILAT W CAD performed [...] PM CDT) Anti-HCV Negative (Non Reactive) [facility] Comment: Antibodies to HCV not detected. Does not exclude the possibility of exposure to HCV. 02/04/2016 1:58 PM CDT 02/05/2016 3:46 PM CDT Narrative [facility] - 02/05/2016 6:04 PM CDT Performed at [facility], [address] [place] [phone] Haylee Alanis APRN, CNP LAB_1 Performing Organization Address [facility] de Phone Number [facility] [phone] * LIPID PANEL AND DIRECT LDL(IF NEEDED) [...] AM CDT 09/19/2014 7:37 AM CDT Narrative [facility] - 09/19/2014 1:07 PM CDT Performed at [facility], [address] [place] [address] ??[phone] Tiffany Gonzalez APRN, GAIL LAB_1 Performing Organization Address [facility] Co de Phone Number [facility] [phone] * PAP TEST, ROUTINE (03/14/2012 12:00 AM CARTRIDGE MAKER) Cytology, Pap (NOTE) Mine Wirer Cytology Report Patient Name: STEPHANIE NORMAN Taken: [...] ?? Microscopic Description Microscopic examination is performed. [facility] Department of Pathology [address] [place] [id number] [employer] 03/14/2012 03/16/2012 10: 29 AM CARTRIDGE MAKER Tiffany Gonzalez MANAGER OF SOFTWARE, DNP LAB_1 Performing Organization Address City/State/[facility] Co de Phone Number [employer] [address] [address] from Last 3 Months or Most Recently Relevant to Health Maintenance Advance Directives * Full Code (Latest Code Status on File) Date Activated Date Inactivated Comments 01/02/2014 10:34 AM 01/02/2014 6:13 PM Care Teams Cognos Report Developer Relationship Specialty Start Date End Date Haylee Alanis APRN, GUM COOK [address] [place] [address] PCP - General Nurse Practitioner 02/04/16
--- OUTSIDE RECORDS SUMMARY | 2023-10-17 02:40 | XMS_ITS | Encounter Summary ---
Author Organization [facility] Address [address] [place] [address] Care Team Providers Care Proof Plate Maker Name Role Phone Unavailable Primary Care Provider Unavailabl e Encounter Details Date Type Department Care Team (Late st Contact Info) Description 07/28/2023 Treatment [facility] [place] [address] [place] [address] Viji Chavez, ATTENDANT [facility] [address] [place] [phone] Social History Tobacco Use Types Packs/Day Years [...] Name: Stephanie Norman : 1965 Chart #: [id number] Sex: F This patient was personally seen [...] AM ) BP (sit): 121/63 AP(-) / NEWS PRODUCTION ASSISTANT: 63/86 Pulse: 60 Chairside data as of [...] ORAL Every Treatment During Dialysis 06/28/2023 06/26/2024 CORPORATE FINANCIAL ANALYST: López Mariano MD LOCATION: [facility] [phone] SCHEDULE: -- 2nd Shift EDW: kg. DIALYZER: HD DURATION: NEEDLE SIZE: ANTICOAG: BATH: QB: ml/min QD: ml/min Subjective No new complaints. 07/11: She is doing well. NO symptoms during treatment. Stable dry weight. BP controlled. AVF working well, no new issues or concerns. Has new job that is starting July 27. Advanced Practitioner Subjective SWINE NUTRITIONIST 07/28/2023: Spoke with patient at chairside. Doing well. Has pain in right hand for the past week; unsure what happened. Will try to go get xray after dialysis. Denies SOB, chest pain, cramping or dizziness. BP stable. AVF working well; no reported issues from staff. Getting to EDW. Continue planof care. No changes today. SWINE NUTRITIONIST 07/02/2023: Patient seen on dialysis. No new [...] of access: Fistula Send for fistulagram. 06/18/22 [facility] [place]: outflow vein moderate stenosis s/p angioplasty with good success 05/2022: Fistulagram scheduled for pain surrounding access and collateral vessels -> appt 06/18/22 at [facility] scheduled for fistulagram Fistulagram 12/2020 patent and [...] at goal. Intact PTH is at goal. Psychiatric Aide Instructor will adjust binders and vitamin D per protocol and continue to provide dietary education. Cardiovascular Assessment Blood pressures reviewed and are acceptable. Intradialytic weight gains are appropriate. Estimated dry weight is appropriate. Improved IDWG's Transplant Status: Patient is on transplant list. [facility] [place] Listed for Transplant at [place] as of Apr 2021 Possible living donors [...]
--- OUTSIDE RECORDS SUMMARY | 2023-10-17 02:40 | XMS_ITS | Encounter Summary ---
Author Organization [facility] Address [address] [place] [address] Care Team Providers Care Culture Room Worker Name Role Phone Unavailable Primary Care Provider Unavailabl e Encounter Details Date Type Department Care Team (Late st Contact Info) Description 07/21/2023 Orders Only [facility] [place] [address] [place] [address] López Mariano MD [address] [place] [address] Social History Tobacco Use Types [...] * [facility] Lab Results (07/21/2023) spKt/V (Steveirdas II) 1.68 [facility] spKt/V Gotch 1.78 [facility] eKt/V (Tattersall) 1.41 [facility] eKdrt/V 1.47 [facility] WSTDKT/V 2.5 [facility] nPCR_HD 1.14 [facility] eKt/V Gotch 1.47 [facility] Center eNPCR 1.05 [facility] PCR 59.79 [facility] 07/21/2023 07/21/2023 Ordering Provider LAB BLOOD ORDERABLE [facility] Contact Performing lab Unknown, [place] [...] 07/22/2023 Unless otherwise specified, test(s) performed at: [facility], [address] [place] [address] IN SERVICE COORDINATOR: John Hernandez M.D., Ph.D For any questions, please call customer service at FREQUENCY:MONTHLY Resulting Agency Comment Specimen source: Blood López Mariano MD LAB BLOOD ORDERABLES Performing Organization Address [facility] de Phone Number [facility] See order comments or contact performing lab Unknown, [place] * HD KINETICS (07/21/2023) % Urea Reduction 77 65 - 80 % [facility] 07/21/2023 07/22/2023 5:3 9 AM CDT Narrative Resulting Agency Comment Specimen source: Plasma López Mariano MD LAB BLOOD ORDERABLES Performing Organization Address [facility] de Phone Number [facility] See order comments or contact performing lab Unknown, [place] * POST CHEMISTRY (07/21/2023) BUN Post Dialysis 14 6 - 19 mg/dL [facility] 07/21/2023 07/22/2023 5:3 9 AM CDT Narrative [facility] - 07/22/2023 Unless otherwise specified, test(s) performed at: [facility], [address] [place] [address] IN SERVICE COORDINATOR: John Hernandez M.D., Ph.D For any questions, please call customer service at FREQUENCY:MONTHLY Resulting Agency Comment Specimen source: Plasma López Mariano MD LAB BLOOD ORDERABLES Performing Organization Address [facility] Co de Phone Number [facility] [...] 6:1 1 AM CDT Narrative [facility] - 07/22/2023 Unless otherwise specified, test(s) performed at: [facility], [address] [place] [address], [place] [address] IN SERVICE COORDINATOR: John Hernandez M.D., Ph.D For any questions, please call customer service at FREQUENCY:MONTHLY Resulting Agency Comment Specimen source: Serum López Mariano MD LAB BLOOD ORDERABLES [facility] See order comments or contact performing lab Unknown, [place] * (ABNORMAL) [facility] (07/21/2023) PTH 208(H) 16 - 80 pg/mL [facility] 07/21/2023 07/22/2023 5:1 7 AM CDT Narrative [facility] - 07/22/2023 Unless otherwise specified, test(s) performed at: [facility], [address] [place] [address], [place] [address] IN SERVICE COORDINATOR: John Hernandez M.D., Ph.D For any questions, please call customer service at FREQUENCY:MONTHLY Resulting Agency Comment Specimen source: Plasma López Mariano MD LAB BLOOD ORDERABLES [facility] [employer] [facility] See order comments or contact performing lab Unknown, [place] documented in this encounter Visit Diagnoses Not on filedocumented in this encounter
--- OUTSIDE RECORDS SUMMARY | 2023-10-17 02:40 | XMS_ITS | Encounter Summary ---
Author Organization [facility] Address [address] [place] [address] Care Team Providers Care Change Director Name Role Phone Unavailable Primary Care Provider Unavailabl e Encounter Details Date Type Department Care Team (Late st Contact Info) Description 07/20/2023 Telephone [facility] [place] [address] [place] [address] Joana Rudolph, RN [address] [place] [address] Social History Tobacco Use Types [...]
--- OUTSIDE RECORDS SUMMARY | 2023-10-17 02:40 | XMS_ITS | Encounter Summary ---
Author Organization [facility] Address [address] [place] [address] Care Team Providers Care Registration Coordinator Name Role Phone Haylee Alanis APRN, CNP Primary Care Provide r Encounter Details Date Type Department Care Team (Late st Contact Info) Description 08/23/2013 Emergency Room External to External, [place] [address] RT SIDED FLANK AND BACK PAIN BLOOD [...] on filedocumented in this encounter Care Teams Registration Coordinator Relationship Specialty Start Date End Date Haylee Alanis APRN, CNP [address] [place], [place] [id number] PCP - General Nurse Practitioner 02/04/16 documented as of this encounter
--- OUTSIDE RECORDS SUMMARY | 2023-10-17 02:40 | XMS_ITS | Encounter Summary ---
Author Organization [facility] Address [address] [place] [address] Care Team Providers Care Bookkeeping Manager Name Role Phone Unavailable Primary Care Provider Unavailabl e Encounter Details Date Type Department Care Team (Late st Contact Info) Description 07/28/2023 Orders Only [facility] [place] [address] [place] [address] López Mariano MD [address] [place] [address] Social History Tobacco Use Types [...] Priority Date/Time Associated Diagnosis Comments HEMATOLOGY Routine 07/28/2023 documented in this encounter Results * (ABNORMAL) HEMATOLOGY (07/28/2023) Hemoglobin 11.4(L) 12.0 - 16.0 g/dL [facility] Hemoglobin x 3 34.2(L) 36.0 - 48.0 % [facility] 07/28/2023 07/29/2023 9:2 9 AM CDT Narrative [facility] - 07/29/2023 Unless otherwise specified, test(s) performed at: [facility], [address] [place] [address] PAINT STRIPING MACHINE OPERATOR: John Hernandez M.D., Ph.D For any questions, please call customer service at FREQUENCY:OTHER Resulting Agency Comment Specimen source: Blood López Mariano MD LAB BLOOD ORDERABLES [facility] See order comments or contact performing lab Unknown, [place] documented in this encounter Visit Diagnoses Not on filedocumented in this encounter
--- OUTSIDE RECORDS SUMMARY | 2023-10-17 02:40 | XMS_ITS | Encounter Summary ---
Author Organization [facility] Address [address] [place] [address] Care Team Providers Care Manager Medicare Marketing Name Role Phone Haylee Alanis APRN, CNP Primary Care Provide r Encounter Details Date Type Department Care Team (Latest Contact Info) Description 04/10/1997 Orders Only [facility], [address] [place], [place] [phone] Social History Tobacco Use Types Packs/Day Years Used Date Smoking Tobacco: Never Assessed Sex and Gender Information Value Date Recorded Sex Assigned at Not on file Gender Identity Not on file Sexual Orientation Not on file documented as of this encounter Plan of Treatment Not on file documented as of this encounter Visit Diagnoses Not on filedocumented in this encounter Care Teams Manager Medicare Marketing Relationship Specialty Start Date End Date Haylee Alanis APRN, CNP [address] [place] [address] PCP - General Nurse Practitioner 02/04/16 documented as of this encounter
--- OUTSIDE RECORDS SUMMARY | 2023-10-17 02:40 | XMS_ITS | Encounter Summary ---
Author Organization [facility] Address [address] [place] [address] Care Team Providers Care Furnace Checker Name Role Phone Haylee Alanis APRN, CNP [...] on filedocumented in this encounter Care Teams Furnace Checker Relationship Specialty Start Date End Date Haylee Alanis APRN, CNP [address] [place] [address] PCP - General Nurse Practitioner 02/04/16 documented as of this encounter
--- OUTSIDE RECORDS SUMMARY | 2023-10-17 02:40 | XMS_ITS | Encounter Summary ---
Author Organization [facility] [place] Address [address] [place] [address] Care Team Providers Care Corporate Safety Director Name Role Phone Unavailable Primary Care Provider Unavailabl e Encounter Details Date Type Department Care Team (Late st Contact Info) Description 07/12/2023 Treatment [facility] [place] [address] [place] [address] López Mariano MD [address] [place] [address] Social History Tobacco Use Types Packs/Day Years [...] Name: Stephanie Norman : 1965 Chart #: [id number] Sex: F This patient was personally seen [...] PM ) BP (sit): n/a AP(-) / TREASURY DIRECTOR: 224/201 Pulse: n/a Chairside data as of [...] Access Flow 1557 > 2000 > 2000 ENVIRONMENTAL ADVISOR: López Mariano MD LOCATION: [phone] SCHEDULE: - 2nd Shift EDW: kg. DIALYZER: HD DURATION: NEEDLE SIZE: ANTICOAG: BATH: QB: ml/min QD: ml/min Subjective No new complaints. 07/11: She is doing well. NO symptoms during treatment. Stable dry weight. BP controlled. AVF working well, no new issues or concerns. Has new job that is starting July 27. Advanced Practitioner Subjective DIAGNOSTIC ASSISTANT 07/02/2023: Patient seen on dialysis. No new dialysis concerns. Denies SOB, chest pain, or dizziness. Has been getting to EDW. AVF functional; no reported issues. BP stable. Continue to challenge EDW. DIAGNOSTIC ASSISTANT 05/21/2023: Spoke with patient at chairside. Feeling [...] of access: Fistula Send for fistulagram. [place] [facility] vein moderate stenosis s/p angioplasty with good success 05/2022: Fistulagram scheduled for pain surrounding access and collateral vessels -> appt [place]18[place]22 [place] [facility] [place] fist[place] Fistulagram 12/2020 patent and [...] at goal. Intact PTH is at goal. Agriculture Inspector will adjust binders and vitamin D per protocol and continue to provide dietary education. Cardiovascular Assessment Blood pressures reviewed and are acceptable. Intradialytic weight gains are appropriate. Estimated dry weight is appropriate. Improved IDWG's Transplant Status: Patient is on transplant list. [facility] Listed for Transplant at [facility] as of Apr 2021 Possible living donors [...]
--- OUTSIDE RECORDS SUMMARY | 2023-10-17 02:40 | XMS_ITS | Encounter Summary ---
Author Organization [facility] Address [address] [place] [address] Care Team Providers Care Weed Eradicator Name Role Phone Unavailable Primary Care Provider Unavailabl e Encounter Details Date Type Department Care Team (Late st Contact Info) Description 08/04/2023 Orders Only [facility] [place] [address] [facility] [address] [place] [address] López Mariano MD [address] [place] [address] Social History Tobacco Use Types [...] Priority Date/Time Associated Diagnosis Comments HEMATOLOGY Routine 08/04/2023 documented in this encounter Results * HEMATOLOGY (08/04/2023) Hemoglobin 12.5 12.0 - 16.0 g/dL [facility] Hemoglobin x 3 37.5 36.0 - 48.0 % [facility] 08/04/2023 08/05/2023 8:2 4 AM CDT Narrative [facility] - 08/05/2023 Unless otherwise specified, test(s) performed at: [facility], [address] [place] [address], [place] [address] OSTEOLOGY TEACHER: John Hernandez M.D., Ph.D For any questions, please call customer service at FREQUENCY:OTHER Resulting Agency Comment Specimen source: Blood López Mariano MD LAB BLOOD ORDERABLES [facility] See order comments or contact performing lab Unknown, [place] documented in this encounter Visit Diagnoses Not on filedocumented in this encounter
[2023-10-17 02:45] VITALS: BP 125/74; PULSE 84; RESP 20; TEMP 36.8
[2023-10-17 03:44] VITALS: BP 125/74; PULSE 84; RESP 20; TEMP 36.8; O2SAT 99
== END 2023-10-17 02:45 | disposition home or self-care (01) ==
PROVIDERS: Emergency Provider Internal Medicine
DX: S16.1XXA Strain of muscle, fascia and tendon at neck level, initial encounter (principal)
CPT/HCPCS: 99283

== ENCOUNTER 2023-10-26 07:15 | Outpatient (CLI) | payer BC, SELFPAY ==
--- OUTSIDE RECORDS SUMMARY | 2023-10-26 07:17 | XMS_ITS ---
Author Name [facility] Address [address] [place] [address] Phone [phone] Organization [facility] e, NA DOCUMENT DISCLAIMER Multiple document versions may exist, please be sure you review the latest version. 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 F October 25, 2023 11 :35 AM Weight Vital Sign Value Date / Time Estimated Dry Weight 97 kg October 10 11:59 PM Pre-Dialysis 100.40 kg October 25, 2023 11 :35 AM Post-Dialysis 96.80 kg October 25, 2023 11 :35 AM Other Other Value Date / Time Height 173 cm December 16, 2022 12:00 AM Body Mass Index 32.41 kg/m2 October 25, 2023 03 :28 PM [facility] RES[facility] Hematology Result Type Result Value Relevant Referen ce Range Interpretation Date WBC (No Diff) 8.27 1000/mcL 4.80 - 10.80 1000/mcL - May 26, 2023 Platelets 201 1000/mcL 130 - 400 1000/mcL - ua2023 Neutrophils 78.8 % 40.0 - 75.0 % [...] 195 1000/mcL 130 - 400 1000/mcL - Fredo h 2023 TIBC 260 mcg/dL 185 - 515 mcg/dL - June UIBC (Calc) 202 mcg/dL 155 - 355 mcg/dL - June Transferrin Sat. (Calc) 22 % 20 - 55 % - June 23, 2023 WBC (No Diff) 9.91 1000/mcL 4.80 - 10.80 1000/mcL - June 23, 2023 Platelets 219 1000/mcL 130 - 400 1000/mcL - Apri l 2023 Neutrophils 80.0 % 40.0 - 75.0 % High July 21, 2023 UIBC (Calc) 194 mcg/dL 155 - 355 mcg/dL - July Transferrin Sat. (Calc) 25 % 20 - [...] - 400 1000/mcL - September 22, 2023 MCH 32.6 pg 27.0 - 31.0 pg High September 21 MCHC 31.3 g/dL 30.0 - 36.0 g/dL - September 22, 2023 RDW 14.6 % 11.5 - 14.5 % High September 21 Basophils 1.5 % 0.0 - 1.5 % - September 22, 2023 JESSICA 1.0 % 0.0 - 4.0 % - September 22, 2023 WBC (No Diff) 8.66 1000/mcL 4.80 - 10.80 1000/mcL - September 22, 2023 Iron 60 mcg/dL 30 - 160 mcg/dL - September 22, 2023 Neutrophils 83.2 % 40.0 - 75.0 % High September 21, 024 Lymphocytes 7.7 % 19.0 - 48.0 % Low September 21 024 Monocytes 4.4 % 3.0 - 10.0 % - September 21 Eosinophil 2.1 % 0.0 - 7.0 % [...] % 36.0 - 48.0 % Low September Iron 66 mcg/dL 30 - 160 mcg/dL - October 20, 2023 TIBC 242 mcg/dL 185 - 515 mcg/dL - October 20, 2023 UIBC (Calc) 176 mcg/dL 155 - 355 mcg/dL - October Transferrin Sat. (Calc) 27 % 20 - 55 % - October 20, 2023 Neutrophils 92.8 % 40.0 - 75.0 % High October 19, 2 024 Lymphocytes 3.0 % 19.0 - 48.0 % Low October 19, 024 JESSICA 0.3 % 0.0 - 4.0 % - October 20, 2023 WBC (No Diff) 12.37 1000/mcL 4.80 - 10.80 1000/mcL High October 20, 2023 RBC 3.62 mill/mcL 4.20 - 5.40 mill/mcL Low October 20, 2023 HCT 37.9 % 37.0 - 47.0 % - October 19 MCH 33.2 pg 27.0 - 31.0 pg High October 19 MCHC 31.8 g/dL 30.0 - 36.0 g/dL - October 20, 2023 Monocytes 2.9 % 3.0 - 10.0 % Low October 19 Eosinophil 0.8 % 0.0 - 7.0 % - October 20, 2023 Basophils 0.2 % 0.0 - 1.5 % - October 20, 2023 RDW 14.7 % 11.5 - 14.5 % High October 19 HGB 12.0 g/dL 12.0 - 16.0 g/dL - October 20, 2023 Hemoglobin x 3 36.0 % 36.0 - 48.0 % - October Platelets 187 1000/mcL 130 - 400 1000/mcL - October 20, 2023 Metabolic/Renal Result Type Result Value Relevant Reference Range Interpre tation Date BUN 66 mg/dL 6 - 19 mg/dL High August 18, 2023 Chloride 101 mEq/L 96 - 108 mEq/L - August 17 Bicarbonate 21 mEq/L 20 - 31 mEq/L - August 17 Creatinine, Serum 10.54 mg/dL 0.60 - 1.30 mg/dL High August 18, 2023 BUN/Creat Ratio 6.3 10.0 - 20.0 Low August 18, 2023 Sodium 136 mEq/L 136 - 145 mEq/L - August 17 Potassium 5.1 mEq/L 3.5 - 5.1 mEq/L - August 17 URR, Calc 73 % 65 - 80 % - August 18, 2023 BUN, Post 18 mg/dL 6 - 19 mg/dL - August 18, 2023 URR, Calc 76 % 65 - 80 % - September 22, 2023 BUN, Post 12 mg/dL 6 - 19 mg/dL - September 21 Bicarbonate 21 mEq/L 20 - 31 mEq/L - September 21 Creatinine, Serum 9.86 mg/dL 0.60 - 1.30 [...] - 145 mEq/L Low September 22, 2023 Bicarbonate 22 mEq/L 20 - 31 mEq/L - October 19, 2 024 Chloride 101 mEq/L 96 - 108 mEq/L - October 19, 2 024 BUN 70 mg/dL 6 - 19 mg/dL High October 19 BUN/Creat Ratio 7.7 10.0 - 20.0 Low October 20, 2023 Creatinine, Serum 9.14 mg/dL 0.60 - 1.30 mg/dL High October 20, 2023 Potassium 4.7 mEq/L 3.5 - 5.1 mEq/L - October 20, 2023 Sodium 134 mEq/L 136 - 145 mEq/L Low October 20, 2023 BUN, Post 17 mg/dL 6 - 19 mg/dL - October 19 URR, Calc 76 % 65 - 80 % - October 20, 2023 HD Adequacy Result Type Result Value Relevant Referen ce Range Interpretation Date Krt/V 0.00 No Reference Ran ge Provided - May 26, 2023 Krt/V 0.00 No Reference Ran ge Provided - June 23, 2023 Krt/V 0.00 No Reference Ran ge [...] Ran ge Provided - September 22, 2023 wstdKt/V 2.5 No Reference Ran ge Provided - October 20, 2023 spKt/V Gotch 1.72 No Reference Ran ge Provided - October 20, 2023 wstdKt/V without residual 2.5 No Reference Range Provided - October 20, 2023 wstdKt/V, residual 0.0 No Reference Range Provided - October 20, 2023 spKt/V (Daugirdas II) 1.64 No Reference Range Provided - October 20, 2023 Krt/V 0.00 No Reference Ran ge Provided - October 20, 2023 eKt/V (Tattersall) 1.41 No Reference Range Provided - October 20, 2023 Bone/Mineral Result Type Result Value Relevant Referen ce Range Interpretation Date Magnesium 2.3 mg/dL 1.6 - 2.6 mg/dL [...] 208 pg/mL 16 - 80 pg/mL High Apr 2023 Vitamin D 1,25 Dihydroxy 8.0 pg/mL 19.9 - 79.3 pg/mL Low August 18, 2023 Calcium, Total 9.6 mg/dL 8.7 - 10.4 mg/dL - August 18, 2023 Phosphorus 3.0 mg/dL 2.6 - 4.5 mg/dL - August 17, 2 024 Ca x P Product 29 0 [...] September 22, 2023 Ca x P Product 0 - September 21, 2 024 Calcium, Total 9.2 mg/dL 8.7 - 10.4 mg/dL - September 22, 2023 Corrected Ca x P Product 0 - September 22, 2023 Calcium, Total 9.4 mg/dL 8.7 - 10.4 mg/dL - October 20, 2023 Ca x P Product 0 - October 19, 2 024 Phosphorus 3.0 mg/dL 2.6 - 4.5 mg/dL - October 20, 2023 Corrected Ca x P Product 0 - October 20, 2023 Liver/Nutrition Result Type Result Value Relevant Reference Range Interpre tation Date eNPCR 1.10 No Reference Range Provided - August 18, 2023 Total Protein [...] September 22, 2023 eNPCR 0.92 No Reference Range Provided - September 22, 2023 Albumin (BCG) 3.9 g/dL 3.5 - 5.2 g/dL - October Total Protein 6.6 g/dL 6.0 - 8.5 g/dL - October A/G Ratio 1.4 1.0 - 2.0 - October 20, 2023 Globulin (Calc) 2.7 g/dL 2.0 - 4.0 g/dL - October 20, 2023 eNPCR 1.18 No Reference Range Provided - October 20, 2023 Immunochemistry Result Type Result Value Relevant [...] Dose Route Status COMIRNATY - COVID-19 Vaccine ([employer]) March 12, 2023 0.3 mL Intramuscular Completed Flu Vaccine - Flublok Quadrivalent January 27, 2023 0.5 mL Intramuscular Completed [employer] COVID-19 Vac cine, Bivalent, Booster January 26, 2022 0.3 mL Intramuscular Completed Moderna COVID-19 Vaccine, Booster February 28, 2021 0.25 m L Intramuscular Completed PREVNAR August 21, 2020 0.5 mL Intramuscular Completed Moderna COVID-19 Vaccine, Do se 2 of 2 June 10, 2020 0.5 mL Intramuscular Completed Moderna COVID-19 Vaccine, Do se 1 of 2 May 17, 2020 0.5 mL Intramuscular Completed [id number], series 4 of August 23, 2019 40.0 mcg Int ramuscular Completed [id number], series 3 of April 25, 2019 40.0 mcg Intramuscular Completed [id number], series 2 of March 25, 2019 40.0 mcg Intramuscular Completed [id number], series 1 of February 22, 2019 40.0 mcg Intramuscular Completed TRANSPLANT WAITLIST STATUS No Information on Transplant Waitlist Status ADVANCE DIRECTIVES Directive Description Ordered By Effective Date Resuscitation status Full Code López Mariano Feb 25, 2023 DIALYSIS TREATMENTS Conventional Hemodialysis Date Pre-Treatment Vitals Post-Treatment Analia ls Duration (hr) BFR (mL/min) Dialysate Dialyzer Dialysis Access Meds Admin October 20, 2023 Weight 100.10 kg Weight 97.30 kg 03:30:00 450 2.0 K, 2.5 Ca, 1.0 Mg, 100 Dextrose (G2251) 180nre Optif[facility] Blood Pressure-sitting 157/85 mmHg Blood Pressure-sit ting 107/41 mmHg Blood Pressure-standing 153/93 mmHg Blood Pressure-st anding 117/79 mmHg Heart Rate 69 beats per minute Heart Rate 71 beats per minute Respiratory Rate 18 breaths per minute Respiratory Rate 18 breaths per minute Temperature 98.4 deg. F Temperature 97.5 deg. F October 22, 2023 Weight 99.20 kg Weight 96.80 kg 02:56:00 430 2.0 K, 2.5 Ca, 1.0 Mg, 100 Dextrose (G2251) 180nre [facility] Hemodialysis-AV Fistula-Standard, Left Upper Arm, Brachial Artery to Cephalic Vein Access Placed on April 25, 2019 Heparin Sodium (Porcine) 1,000 Units/mL Systemic; 4000units,Intravenous - push Heparin Sodium (Porcine) 1,000 Units/mL Systemic; 2000units,Intravenous - push Vitamin D (Calcitriol) Oral; 0.25mcg,Oral Blood Pressure-sitting 121/64 mmHg Blood Pressure-sit ting 131/69 mmHg Blood Pressure-standing 144/79 mmHg Blood Pressure-st anding 132/85 mmHg Heart Rate 67 beats per minute Heart Rate 62 beats per minute Respiratory Rate 18 breaths per minute Respiratory Rate 18 breaths per minute Temperature 98.0 deg. F Temperature 97.8 deg. F October 25, 2023 Weight 100.40 kg Weight 96.80 kg 03:19:00 460 2.0 K, 2.5 Ca, 1.0 Mg, 100 Dextrose (G2251) 180nre [facility] Hemod[facility]-AV Fistula-Standard, Left Upper Arm, Brachial Artery to Cephalic Vein Access Placed on April 25, 2019 Vitamin D (Calcitriol) Oral; 0.25mcg,Oral Blood Pressure-sitting 135/68 mmHg Blood Pressure-sit ting 103/57 mmHg Blood Pressure-standing 143/90 mmHg Blood Pressure-st anding 122/79 mmHg Heart Rate 72 beats per minute Heart Rate 71 beats per minute Respiratory Rate 18 breaths per minute Respiratory Rate 18 breaths per minute Temperature 98.5 deg. F Temperature 97.8 deg. F
--- OUTSIDE RECORDS SUMMARY | 2023-10-26 07:18 | XMS_ITS | Encounter Summary ---
Author Organization [facility] Address [address] [place] [address] Care Team Providers Care Supervisor Assembly Department Name Role Phone Unavailable Primary Care Provider Unavailabl e Encounter Details Date Type Department Care Team (Late st Contact Info) Description 10/13/2023 Orders Only [facility] [place] [address] [place] [address] López Mariano MD [address] [place] [address] Social History Tobacco Use Types [...] x 3 35.4(L) 36.0 - 48.0 % [facility] 10/13/2023 10/14/2023 9:5 9 AM CDT Narrative [facility] - 10/14/2023 Unless otherwise specified, test(s) performed at: [facility], [address] [place] [address] FAST FOOD DELIVERY DRIVER: John Hernandez M.D., Ph.D For any questions, please call customer service at FREQUENCY:OTHER Resulting Agency Comment Specimen source: Blood López Mariano MD LAB BLOOD ORDERABLES [facility] See order comments or contact performing lab Unknown, [place] documented in this encounter Visit Diagnoses Not on filedocumented in this encounter
--- OUTSIDE RECORDS SUMMARY | 2023-10-26 07:18 | XMS_ITS | Encounter Summary ---
Author Organization [facility] Address [address] [place] [address] Care Team Providers Care Assembler Wire Mesh Gate Name Role Phone Unavailable Primary Care Provider Unavailabl e Encounter Details Date Type Department Care Team (Late st Contact Info) Description 08/04/2023 Orders Only [facility] [address] [facility] [address] [place] [address] López Mariano MD [address] [place] [address] Social History Tobacco Use Types [...] (08/04/2023) Hemoglobin 12.5 12.0 - 16.0 g/dL [facility] Hemoglobin x 3 37.5 36.0 - 48.0 % [facility] 08/04/2023 08/05/2023 8:2 4 AM CDT Narrative [facility] - 08/05/2023 Unless otherwise specified, test(s) performed at: [facility], [address] [place] [address], [place] [address] [place] APPRENTICE: John Hernandez M.D., Ph.D For any questions, please call customer service at FREQUENCY:OTHER Resulting Agency Comment Specimen source: Blood López Mariano MD LAB BLOOD ORDERABLES [facility] See order comments or contact performing lab Unknown, [place] documented in this encounter Visit Diagnoses Not on filedocumented in this encounter
--- OUTSIDE RECORDS SUMMARY | 2023-10-26 07:18 | XMS_ITS | Encounter Summary ---
Author Organization [facility] [place] Address [address] [place] [address] Care Team Providers Care Clerk Analyst Name Role Phone Unavailable Primary Care Provider Unavailabl e Encounter Details Date Type Department Care Team (Late st Contact Info) Description 10/13/2023 Treatment [facility] [address] [place] [address] López Mariano MD [address] [place] [phone] Social History Tobacco Use Types Packs/Day Years [...] Name: Stephanie Norman : 1965 Chart #: [id number] Sex: F This patient was personally seen [...] PM ) BP (sit): 100/60 AP(-) / MUSIC PROFESSOR: 219/190 Pulse: 64 Chairside data as of [...] 3 Values 09/20/2023 09/01/2023 08/30/2023 Access Flow [id number] ESCORT VEHICLE DRIVER: López Mariano MD LOCATION: [phone] SCHEDULE: -- 2nd Shift EDW: kg. DIALYZER: HD DURATION: NEEDLE SIZE: ANTICOAG: BATH: QB: ml/min QD: ml/min Subjective No new complaints. 10/13/23: Dialysis going well, no troubles with dialysis except pain in her back with prolonged sitting. She has spinal stenosis on MRI, seeing PCP regarding this next week as injection did not help much. Advanced Practitioner Subjective INSURANCE ACCOUNT ASSISTANT 09/22/2023: Spoke with patient on dialysis. Today she denies SOB, chest pain or cramping. Arm access working well. Will continue to monitor weight. INSURANCE ACCOUNT ASSISTANT 09/17/2023: Patient seen on dialysis. No new [...] 08/2023: two stenoses with intervention done 06/18/22 [facility] [place] outflow vein moderate stenosis s/p angioplasty with [...] at goal. Intact PTH is at goal. Right Of Way Appraiser will adjust binders and vitamin D per protocol and continue to provide dietary education. Cardiovascular Assessment Blood pressures reviewed and are acceptable. Intradialytic weight gains are appropriate. Estimated dry weight is appropriate. Transplant Status: Patient is on transplant list. [facility] Listed for Transplant at [facility] as of Apr 2021 Possible living donors [...]
--- OUTSIDE RECORDS SUMMARY | 2023-10-26 07:18 | XMS_ITS | Encounter Summary ---
Author Organization [facility] [place] Address [address] [place] [address] Care Team Providers Care Typing Bookkeeper Name Role Phone Unavailable Primary Care Provider Unavailabl e Encounter Details Date Type Department Care Team (Late st Contact Info) Description 09/22/2023 Treatment [facility] [place] [address] [place] [address] Viji Chavez, COMBER FIXER-CORK PAINTER AND GRADER [address] [place] [phone] Social History Tobacco Use Types Packs/Day Years [...] Name: Stephanie Norman : 1965 Chart #: [id number] Sex: F This patient was personally seen [...] AM ) BP (sit): 110/63 AP(-) / TECHNICAL SOLUTIONS ENGINEER: 75/69 Pulse: 64 Chairside data as of [...] 3 Values 09/20/2023 09/01/2023 08/30/2023 Access Flow [id number] Treatment Medication Orders Medication Sig Start Date End Date Heparin Sodium (Porcine) 1,000 Units/mL Systemic 2000 units IVP Every Treatment 01/25/2023 01/24/2024 Heparin Sodium (Porcine) 1,000 Units/mL Systemic 4000 units IVP Every Treatment 01/25/2023 01/24/2024 Vitamin D (Calcitriol) Oral 0.25 mcg ORAL Every Treatment During Dialysis 06/28/2023 06/26/2024 ANIMAL BREEDER: López Mariano MD LOCATION: [phone] SCHEDULE: -- 2nd Shift EDW: kg. DIALYZER: [...] new symptoms or concerns. Advanced Practitioner Subjective PAVING MACHINE OPERATOR 09/22/2023: Spoke with patient on dialysis. Today she denies SOB, chest pain or cramping. Arm access working well. Will continue to monitor weight. PAVING MACHINE OPERATOR 09/17/2023: Patient seen on dialysis. No new [...] 08/2023: two stenoses with intervention done 06/18/22 [facility] [place] [place]: outflow vein moderate stenosis s/p angioplasty with good success 05/2022: Fistulagram scheduled for pain surrounding access and collateral vessels -> appt 06/18/22 at [facility] [place] [place] scheduled for fistulagram Fistulagram 12/2020 patent and [...] at goal. Intact PTH is at goal. Stone Setter [employer] will adjust binders and vitamin D per [...]
--- OUTSIDE RECORDS SUMMARY | 2023-10-26 07:18 | XMS_ITS | Clinical Summary ---
Author Organization [facility] Address [place], [place] [address] Care Team Providers Care Residential Carpet Installer Name Role Phone Zoe Al DO Primary Care Provider [phone] Allergies Active Allergy Reactions Criticality Noted Date Comments Epoetin Beta, Methoxy Peg Hypotension,Vomiting ,Tachycardia 10/18/2023 Occurred during dialysis. Neomycin Rash High 12/11/2016 Penicillins Hives,Rash High 03/05/2008 Povidone-Iodine Flushing Medium 08/31/2023 Medications Medication Sig Dispensed Refills Start Date End Date Status aspirin chewable (CHILDRENS ASPIRIN) 81 mg chewable tablet Take 1 tablet by mouth once daily with a meal. 90 tablet 3 9 Active sevelamer carbonate (RENVELA) 800 mg tab tablet Take 1 Tablet by mouth 3 times daily with meals. 0 1 Active Sylvain Caps 1 mg capsule 1 Active CPAPIndications:TREMAINE on CPAP CPAP machine for [...] Frequency of use: Daily 1 Device 11 1 Active Esomeprazole Magnesium 40 mg grps Take 20 mg by mouth. Active sennosides-docusate (SENOKOT S) (8.6-50 mg) tabletIndications:P eritoneal dialysis catheter dysfunction, subsequent encounter (HC) Take 1 Tablet by mouth 2 times daily if needed for Constipation. 20 Tablet 1 Active acetaminophen (TYLENOL) 325 mg tabletIndications:P eritoneal dialysis catheter dysfunction, subsequent encounter (HC) Take 2 Tablets (650 mg) by mouth every 6 hours. Max acetaminophen dose: 4000mg in 24 hrs. 30 Tablet 1 Active torsemide (DEMADEX) 20 mg tabletIndications:E SRD (end stage renal disease) (HC) Take 2 Tablets (40 mg) by mouth once daily. 180 Tablet 3 2 Active Additional Information Patient taking differently:40 mg OralBID, Reported on 11/30/2022 lidocaine-prilocain e (EMLA) 2.5-2.5 % cream APPLY SMALL AMOUNT TO ACCESS SITE (AVF) 1 TO 2 HOURS BEFORE DIALYSIS. COVER WITH OCCLUSIVE DRESSING (SARAN WRAP) 2 Active pramipexole (MIRAPEX) 0.25 mg tabletIndications:E nd stage renal disease (HC) TAKE 1 TABLET BY MOUTH EVERYDAY AT BEDTIME 90 Tablet 3 2 Active traZODone (DESYREL) 50 mg tabletIndications:I nsomnia, unspecified type Take 1 Tablet (50 mg) by mouth at bedtime if needed for Sleep. 90 Tablet 3 3 Active atorvastatin (LIPITOR) 40 mg tabletIndications:H yperlipidemia, unspecified hyperlipidemia type Take 1 Tablet (40 mg) by mouth once daily. 90 Tablet 3 3 Active buPROPion (WELLBUTRIN XL) 150 mg Extended-Release tabletIndications:D ysthymia,Tobacco use Take 1 Tablet (150 mg) by mouth every morning. 90 Tablet 3 3 Active varenicline (Chantix) 0.5 mg tabletIndications:T obacco use Take 1 Tablet (0.5 mg) by mouth once daily with a meal. 90 Tablet 1 3 Active Additional Information Patient not taking.Reported on 08/31/2023 Lactobacillus acidophilus (Probiotic) 10 billion cell cap Take by mouth. Acti ve loratadine (CLARITIN) 10 mg tablet Take 10 mg by mouth once daily. Active citalopram (CELEXA) 20 mg tabletIndications:D ysthymia TAKE 1 TABLET BY MOUTH AT BEDTIME 90 Tablet 4 Active b complex vitamins (VITAMIN B COMPLEX) capsule Take 1 Capsule by mouth once daily. Active traMADoL (ULTRAM) 50 mg tabletIndications:H ip pain, left Take 0.5 Tablets (25 mg) by mouth 2 times daily if needed for Pain. 30 Tablet 4 Active carvediloL (COREG) 12.5 mg tabletIndications:E ssential hypertension Take 0.5 Tablets (6.25 mg) by mouth once daily. 4 Active methocarbamoL (ROBAXIN) 500 mg tabletIndications:N teddy muscle spasm Take 1 Tablet (500 mg) by mouth every 6 hours if needed (muscle pain and spasm) for up to 7 days. 25 Tablet 4 10/29/19 24 Active carvediloL (COREG) 12.5 mg tabletIndications:E ssential hypertension Take 1 Tablet (12.5 mg) by mouth 2 times daily. 180 Tablet 3 2 10/18/19 24 Discontinue d(*Medicati on adjustment) LORazepam (Ativan) 0.5 mg tabIndications:Valerie strophobia 1 tab as needed before MRI procedure due to anxiety/claustrop hobia. May repeat 1 time if needed. No driving after taking this med. 2 Tablet 4 10/18/19 24 Discontinue d(*Patient states no longer taking) ALPRAZolam (XANAX) 1 mg tabletIndications:C laustrophobia Take 1-2 Tablets (1-2 mg) by mouth one time for 1 dose. 2 Tablet 4 10/01/19 24 Active Problems Problem Noted Date Diagnosed Date [...] Encounters Date Type Department Care Team Description 10/22/2023 2:50 PM CDT Office Visit [facility] [address] [place] [address] Yudy Joya PA Neck Pain/problem (sharp stabbing almost a week- woke up with the pain. ) 10/22/2023 Travel 10/22/2023 Nurse Triage [facility] [address] [place] [address] Zoe Al DO Neck Pain/problem 10/20/2023 Telephone [facility] Trans[facility] Providers [address] [place] [phone] Mariam Vogel RN Transplant Eval (updates from ) 10/19/2023 Orders Only [facility] [address] [place] [phone] Shar Dias MD Transplant Eval (PET ST order) 10/18/2023 7:50 AM CDT Office Visit [facility] [address] [place] [address] Kirill Hernandez MD Musculoskeletal Problem (Follow-up Lumbar Spine - review MRI results) 10/18/2023 Travel 10/06/2023 Telephone [facility] [address] [place] [address] Kirill Hernandez MD Appointment 10/05/2023 9:00 AM CDT Ancillary Procedure [facility] [address] [place] [address] 10/05/2023 Travel 10/05/[address] [address] Kirill Hernandez MD Imaging (Sent medical message ) 09/30/[address] [address] Rachel Al DO Need Meds; Returning a call (Returning a call) 09/30/2023 Travel 08/31/2023 10:45 AM CDT Ancillary Procedure [address] [address] 08/31/2023 9:30 AM CDT Office Visit [address] [address] Kirill Hernandez MD Musculoskeletal Problem (Consultation for LEFT Hip pain DOO: 07/2023) 08/31/2023 Travel 08/20/[address] [address] Deonte Maddox MD Appointment Request (HIP PAIN) 08/17/2023 11:00 AM CDT Ancillary Procedure [address] [address] 08/17/2023 10:35 AM CDT Office Visit [address] [address] Rachel Al DO Pain (LEFT hip and leg, low back has been seeing a chiro and he told her her leg popped out - does dialysis x3 days a week - thinks it was triggered by raking a few weeks ago ) 08/17/2023 Travel 08/03/2023 Refill [facility] [address] [place] [address] Veronika Pugh PA Refill Request (Citalopram) 07/28/[address] [facility] Scanner 1 scan: (1-Ord) [facility], XR RT HAND MIN 3V, 07/28/2023 from Last 3 Months Immunizations Name Administration Dates Next Due AMB Influenza, IIV4 PF (=>6 mos Flulaval,Fluzone Fluarix)(Flu Clinic Only) 01/23/2017 COVID-19 vaccine (Moderna 100mcg/0.5mL) PF, MDV 02/28/2021,06/10/2020,05/17/2020 COVID-19 vaccine (Pi[employer]is[employer]-Bio NTech 30mcg/0.3mL) 12YO+ BIVALENT PF, MDV 01/26/2022 [...] of Communication with Friends and Fami ly 0 10/18/2023 Financial Resource Strain Answer Date R ecorded Difficulty of Paying Living Expenses 2 10/18/2023 Difficulty of Paying Living Expenses 1 10/18/2023 Food Insecurity Answer Date Recorded Worried About Running Out of Food in the Last Ye ar 2 10/18/2023 Transportation Needs Answer Date Record ed Lack of Transportation (Medical) 1 10/18/2023 Housing Stability Answer Date Recorded Unable to Pay for Housing in the Last Year 1 10/18/2023 Sex and Gender Information Value Date Recorded Sex Assigned at Female 06/24/2020 10:04 AM BACKEND TESTER Gender Identity Female 06/24/2020 10:04 AM BACKEND TESTER Sexual Orientation Not on file Obstetrics History Last Filed Vital Signs Vital Sign Reading Time Taken Comments Blood Pressure 102/64 10/22/2023 2:49 PM CDT Pulse 67 10/22/2023 2:49 PM CDT Temperature 36.6 ??C (97.9 ??F) 11/30/2022 12:30 PM C DT Respiratory Rate 18 11/30/2022 12:30 PM CDT Oxygen Saturation 97% 10/22/2023 2:49 PM CDT Inhaled Oxygen Concentration - - Weight 98 kg (216 lb 0.8 oz) 10/22/2023 2:49 PM CDT Height 168.2 cm (5' 6.22) 09/03/2022 3:45 PM CD T Body Mass Index 34.64 09/03/2022 3:45 PM CDT Plan of Treatment Upcoming Encounters Date Type Department Care Team (Late st Contact Info) Description 10/26/2023 8:00 AM CDT Office Visit [facility] [address] [place] [address] Deonte Maddox MD [address] [place] [address] 11/15/2023 8:40 AM CDT Office Visit [facility] [address] [place] [address] Kirill Hernandez MD [address] [place] [address] Health Maintenance Due Date Last Done Comments [...] history exists Influenza for age 50-64 12/19/2023 01/24/20 22, 01/31/2021, 01/24/2020, Additional history exists Mammogram for [...] 4:25 PM CDT Hyperlipidemia, unspecified hyperlipidemia type AUTO SELF SERVICE STATION ATTENDANT THIN PREP PAP SCREEN IMAGED Routine 11/28/2020 [...] result of the Century Cures Act, medical imagingexams and procedure [...] MD @ 08/17/2023 2:23:17 PM (Electronically Signed) Adesilvia Joelflo DO GENERAL IMAGING * SCAN-RADIOLOGY REPORT (07/28/2023 [...] care provider. XR MAMMO MIKAYLA BILAT SCREEN [[id number]] CLINICAL HISTORY: ??This is an asymptomatic 58 y.o. patient. INDICATION FOR EXAM: Mammogram Screening. TECHNIQUE: CC & MLO views were obtained. ??This study was evaluated with the assistance of Computer-Aided Detection. Breast Tomosynthesis was used in interpretation. COMPARISON FILM: Yes 12/26/21 [facility] 11/20/20 [facility] FINDINGS: ??The breasts have scattered areas of fibroglandular density. There are no dominant masses, suspicious micro calcifications or areas of architectural distortion. Zoesilvia Mccormick Joelqra DO MAMMO * (ABNORMAL) LIPID PANEL W REFLEX MEASURED LDL (09/03/2022 4:25 PM CDT) CHOLESTEROL,TOTAL 138 100 - 199 mg/dL 09/04/2022 2:13 PM CDT [facility] Comment: Cholesterol, Total Reference Ranges Desirable <200 mg/dL Borderline 200-239 mg/dL High >=240 mg/dL TRIGLYCERIDES 167(H) <150 mg/dL 09/04/2022 2:13 PM CDT [facility] HDL CHOLESTEROL 50 >40 mg/dL 2:13 PM CDT [facility] NON-HDL CHOLESTEROL 88 <145 mg/dl 09/04/2022 2:13 PM CDT [facility] CHOL/HDL RATIO 2.76 <4.50 09/04/2022 2:13 PM CDT [facility] LDL CHOLESTEROL 55 <=130 mg/dL 09/04/2022 2:13 PM CDT [facility] VLDL CHOLESTEROL 33(H) <=30 mg/dL 09/04/2022 2:13 PM CDT [facility] PROVIDER ORDERED STATUS RANDOM 09/04/2022 2:13 PM CDT [facility] Blood BLOOD SPECIMEN / Unknown Venipuncture / Unknown 09/03/2022 4:25 PM CDT 09/03/2022 4:28 PM CDT Veronika OVALLES CHEMISTRY [facility] [address] [place] [address], * AUTO SELF SERVICE STATION ATTENDANT THIN PREP PAP SCREEN IMAGED (11/28/2020 3:53 PM CDT) Case Report Gynecologic Cytology Report ? Case: [id number] ? Authorizing Provider: ??Veronika Pugh PA ?Collected: ? 11/28/2020 1553 ? Ordering Location: ? [facility] ?? Received: ?11/28/2020 1632 ? Clinic ? First Screen: ?[place] Welsh ? Specimen: ?AUTO SELF SERVICE STATION ATTENDANT ThinPrep Vial Screening, Cervical ? 12/12/2020 12:44 PM CDT [facility] INTERPRETATION/ RESULT NEGATIVE FOR INTRAEPITHELIAL LESION OR MALIGNANCY (NIL) (none) 12/12/2020 12:44 PM CDT [facility] IMEN ADEQUACY Satisfactory for evaluation No endocervical component seen 12/12/2020 12:44 PM CDT [facility] LABORATORY-C ENTRAL LABORATORY HPV REQUEST HPV and PAP 12/12/2020 12:44 PM CDT [facility] Date of LMP unknown 12/12/2020 12:44 PM CDT [facility] Last Pap Date 08/16/18 12/12/2020 12:44 PM CDT [facility] Last Pap Result NIL 12:44 PM CDT [facility] Abnormal Pap or [place] Bx in last 5 years No 12/12/2020 12:44 PM CDT [facility] Menstrual Status Postmenopausal 12/12/2020 12:[address] [facility] [place] Bx Done Today No 12/12/2020 12:[address] [facility] Additional Information None given 12/12/2020 12:[address] [facility] Comment: Cytology is screened at [facility] - [address], [place] [address] and [facility] - [address], [place] [address] and [facility] - [address] [place] [address] Interpreted at [facility] - [address], [place] [address] Automated Review Successful 12/12/2020 12:44 PM CDT [facility] Comment:Specimen processed s uccessfully by automated telegraph repeater technician device, ThinPrep Imaging System, [employer] ANCILLARY TESTING AUTO SELF SERVICE STATION ATTENDANT HPV Ordered, Please see separate report 12/12/2020 12:44 PM CDT [facility] Note The pap test is a screening technique, not a diagnostic procedure. It is used primarily to screen for squamous cancers and precursor lesions. Published studies have shown that it is subject to both false negative and false positive results. The pap test should not be used as the sole means to diagnose or exclude pre-malignant and malignant lesions. 12/12/2020 12:[address] [facility] Other (Cervical) Non-Blood / Unknown 11/28/2020 3:53 PM CDT 11/28/2020 4:32 PM CDT Veronika OVALLES PATHOLOGY/CYTOLOGY [facility] [address] [place] [address], [place] * ANTI HCV (10/18/2020 12:12 PM CDT) HEPATITIS C ANTIBODY Non-React clyde Non-React clyde 10/18/2020 1:18 PM CDT [facility] Comment:Antibodies to HCV no t detected; does not exclude the possibility of exposure to HCV. Blood BLOOD SPECIMEN / Unknown Butterfly / Unknown 10/18/2020 12:12 PM CDT 10/18/2020 12:29 PM CDT Shar Dias MD SEND OUTS [facility] [address] [place] [address], [place] * ANTI HIV 1/2 (10/18/2020 12:12 PM CDT) Pathologist [facility] HIV-1/HIV-2 ANTIBODY Non-Reacti ve Non-Reacti ve 10/18/2020 1:19 PM CDT [facility] Comment:HIV-1 p24 and HIV-1/ HIV-2 Ab not detected. Blood BLOOD SPECIMEN / Unknown Butterfly / Unknown 10/18/2020 12:12 PM CDT 10/18/2020 12:29 PM CDT Shar Dias MD SEND OUTS [facility] [address] [place] [address], [place] * COLONOSCOPY SCREENING (08/29/2018 12:00 PM [...] 10:31 PM 03/31/2019 6:39 PM Care Teams Residential Carpet Installer Relationship Specialty Start Date End Date Zoe [place] [address] PCP - General Family Practice 06/29/23
--- OUTSIDE RECORDS SUMMARY | 2023-10-26 07:18 | XMS_ITS | Clinical Summary ---
Author Organization [facility] Facility Address [address] [facility] [address] [place] [address] Care Team Providers Care Shim Plug Cutter Name Role Phone Unavailable Primary Care Provider Unavailabl e Encounters Date Type Department Care Team Description 10/20/2023 Orders Only [facility] [place] [address] [place] [address] López Mariano MD 10/13/2023 Orders Only [facility] [place] [address] [place] [address] López Mariano MD 10/13/2023 Treatment [facility] [place] [address] [place] [address] López Mariano MD 10/06/2023 Orders Only [facility] [place] [address] [place] [address] López Mariano MD 09/29/2023 Orders Only [facility] [place] [address] [place] [address] López Mariano MD 09/22/2023 Orders Only [facility] [address] [place] [address] López Mariano MD 09/22/2023 Treatment [facility] [place] [address] [place] [address] Viji Chavez, HEAVY DUTY TRUCK MECHANIC-SHIP'S PILOT 09/17/2023 Treatment [facility] [address] [place] [address] Viji Chavez, HEAVY DUTY TRUCK MECHANIC-SHIP'S PILOT 09/15/2023 Orders Only [facility] [address] [place] [address] López Mariano MD 09/08/2023 Orders Only [facility] [address] [place] [address] López Mariano MD 09/01/2023 Orders Only [facility] [address] [place] [address] López Mariano MD 08/30/2023 Treatment [facility] [address] [place] [address] López Mariano MD 08/18/2023 Orders Only [facility] [address] [place] [address] López Mariano MD 08/11/2023 Orders Only [facility] [address] [place] [address] López Mariano MD 08/06/2023 Treatment [facility] [address] [place] [address] López Mariano MD 08/04/2023 Orders Only [facility] [address] [place] [address] López Mariano MD 07/28/2023 Orders Only [facility] [address] [place] [address] López Mariano MD 07/28/2023 Treatment [facility] [place] [address] [place] [phone] Viji Chavez, HEAVY DUTY TRUCK MECHANIC-SHIP'S PILOT from Last 3 Months Social History Tobacco [...] PPSV23 or PCV20) 10/16/2020 08/21/2020 Influenza Vaccine (#1) 2023 01/31/2021 Procedures Procedure Name Priority Date/Time Associated Diagnosis Comments [facility] RESULTS Routine 10/20/2023 HEMATOLOGY Routine 10/20/2023 HD KINETICS Routine 10/20/2023 POST CHEMISTRY Routine 10/20/2023 CHEMISTRY Routine 10/20/2023 HEMATOLOGY Routine 10/13/2023 HEMATOLOGY Routine 10/06/2023 HEMATOLOGY Routine 09/29/2023 [facility] RESULTS Routine 09/22/2023 HD KINETICS Routine 09/22/2023 POST CHEMISTRY Routine 09/22/2023 CHEMISTRY Routine 09/22/2023 HEMATOLOGY Routine 09/22/2023 HEMATOLOGY Routine 09/15/2023 HEMATOLOGY Routine 09/08/2023 HEMATOLOGY Routine 09/01/2023 [facility] RESULTS Routine 08/18/2023 HEMATOLOGY Routine 08/18/2023 HD KINETICS Routine 08/18/2023 POST CHEMISTRY Routine 08/18/2023 SPECIAL CHEMISTRY Routine 08/18/2023 CHEMISTRY Routine 08/18/2023 CHEMISTRY Routine 08/18/2023 HEMATOLOGY Routine 08/11/2023 HEMATOLOGY Routine 08/04/2023 HEMATOLOGY Routine 07/28/2023 from Last 3 Months Results * HD KINETICS (10/20/2023) Only the most recent of3 resultswithin the time period is included. % Urea Reduction 76 65 - 80 % [facility] 10/20/2023 10/21/2023 7:5 3 AM CDT Narrative Resulting Agency Comment Specimen source: Plasma López Mariano MD LAB BLOOD ORDERABLES [facility] See order comments or contact performing lab Unknown, [place] * POST CHEMISTRY (10/20/2023) Only the most recent of3 resultswithin the time period is included. BUN Post Dialysis 17 6 - 19 mg/dL [facility] 10/20/2023 10/21/2023 7:5 3 AM CDT Narrative [facility] - 10/21/2023 Unless otherwise specified, test(s) performed at: [facility], [address] [place] [address], [place] [address] WELDER EXPLOSION: John Hernandez M.D., Ph.D For any questions, please call customer service at FREQUENCY:MONTHLY Resulting Agency Comment Specimen source: Plasma López Mariano MD LAB BLOOD ORDERABLES [facility] See order comments or contact performing lab Unknown, [place] * (ABNORMAL) HEMATOLOGY (10/20/2023) Only the most recent of12 resultswithin the time period is included. Neutrophils 92.8(H) 40.0 - 75.0 % [facility] Lymphocytes Relative 3.0(L) 19.0 - 48.0 % [facility] Monocytes 2.9(L) 3.0 - 10.0 % [facility] Eosinophils Relative 0.8 0.0 - 7.0 % [facility] Basophils Relative 0.2 0.0 - 1.5 % [facility] JESSICA 0.3 0.0 - 4.0 % [facility] WBC 12.37(H) 4.80 - 10.80 1000/mcL [facility] RBC 3.62(L) 4.20 - 5.40 mill/mcL [facility] Hematocrit 37.9 37.0 - 47.0 % [facility] MCV 105(H) 80 - 100 fl [facility] MCH 33.2(H) 27.0 - 31.0 pg [facility] MCHC 31.8 30.0 - 36.0 g/dL [facility] RDW 14.7(H) 11.5 - 14.5 % [facility] Hemoglobin 12.0 12.0 - 16.0 g/dL [facility] Hemoglobin x 3 36.0 36.0 - 48.0 % [facility] Platelets 187 130 - 400 1000/mcL [facility] 10/20/2023 10/21/2023 9:3 1 AM CDT Narrative [facility] - 10/21/2023 Unless otherwise specified, test(s) performed at: [facility], [address] [place] [address] WELDER EXPLOSION: John Hernandez M.D., Ph.D For any questions, please call customer service at Confirmed by slide review. FREQUENCY:MONTHLY Resulting Agency Comment Specimen source: Blood López Mariano MD LAB BLOOD ORDERABLES [facility] See order comments or contact performing lab Unknown, [place] * (ABNORMAL) [facility] Chemistry (10/20/2023) Only the most recent of4 resultswithin the time period is included. BUN 70(H) 6 - 19 mg/dL [facility] Creatinine 9.14(H) 0.60 - 1.30 mg/dL [facility] BUN/Creatinine Ratio 7.7(L) 10.0 - 20.0 [facility] Sodium 134(L) 136 - 145 mEq/L [facility] Potassium 4.7 3.5 - 5.1 mEq/L [facility] Chloride 101 96 - 108 mEq/L [facility] Bicarbonate (CO2) 22 20 - 31 mEq/L [facility] Calcium 9.4 8.7 - 10.4 mg/dL [facility] Comment: Please note change in reference range. Corrected Calcium 9.5 8.7 - 10.4 mg/dL [facility] Comment: Corrected Calcium is not equivalent to measured Ionized Calcium. Phosphorus 3.0 2.6 - 4.5 mg/dL [facility] Calcium Phosphorus Product 28 0 - 54 [facility] Calcium Phosporus Product, Cor 29 0 - 54 [facility] Total Protein 6.6 6.0 - 8.5 g/dL [facility] Albumin 3.9 3.5 - 5.2 g/dL [facility] Globulin, Total 2.7 2.0 - 4.0 g/dL [facility] A/G Ratio 1.4 1.0 - 2.0 [facility] Iron 66 30 - 160 mcg/dL [facility] UIBC 176 155 - 355 mcg/dL [facility] TIBC 242 185 - 515 mcg/dL [facility] Iron Saturation (TSat) 27 20 - 55 % [facility] 10/20/2023 10/21/2023 8:0 4 AM CDT Narrative [facility] - 10/21/2023 Unless otherwise specified, test(s) performed at: [facility], [address] [place] [address], [place] [address] WELDER EXPLOSION: John Hernandez M.D., Ph.D For any questions, please call customer service at FREQUENCY:MONTHLY Resulting Agency Comment Specimen source: Serum López Mariano MD LAB BLOOD ORDERABLES Performing Organization Address City/[facility]/ZIP Co de Phone Number [facility] See order comments or contact performing lab Unknown, [place] * [facility] Results (10/20/2023) Only the most recent of3 resultswithin the time period is included. eKdrt/V 1.46 [facility] eKt/V Gotch [facility] spKt/V Gotch 1.72 [facility] ge Center eNPCR 1.18 [facility] eKt/V ([place]) 1.41 [facility] PCR 68.39 [facility] WSTDKT/V 2.5 [facility] nPCR_HD 1.28 [facility] spKt/V (Daugirdas II) 1.64 [facility] 10/20/2023 10/20/2023 [place] Ordering Provider LAB BLOOD ORDERABLE S Performing Organization Address [facility]/ZIP Co de Phone Number [facility] Contact Performing lab Unknown, [place] * (ABNORMAL) SPECIAL CHEMISTRY (08/18/2023) Vitamin D, 1,25-Dihydroxy 8.0(L) 19.9 - 79.3 pg/mL [facility] 08/18/2023 08/19/2023 12: 19 PM CDT Narrative Resulting Agency Comment Specimen source: Serum López Mariano MD LAB BLOOD BANK TEST ORDERABLES Performing Organization Address City/[facility]/ZIP Co de Phone Number [facility] See order comments or contact performing lab Unknown, [place] from Last 3 Months Advance Directives Healthcare Agents on File Name Relationship Healthcare Agent [facility] Communication [facility] Agent [email or web address] It's [email or web address]
--- OUTSIDE RECORDS SUMMARY | 2023-10-26 07:18 | XMS_ITS | Encounter Summary ---
Author Organization [facility] Address [address] [place] [address] Care Team Providers Care Deputy Director Of Finance Name Role Phone Unavailable Primary Care Provider Unavailabl e Encounter Details Date Type Department Care Team (Late st Contact Info) Description 09/01/2023 Orders Only [facility] [place] [address] [place] [address] López Mariano MD [address] [place] [address] Social History Tobacco Use Types [...] x 3 34.8(L) 36.0 - 48.0 % [facility] 09/01/2023 09/02/2023 7:3 6 AM CDT Narrative [facility] - 09/02/2023 Unless otherwise specified, test(s) performed at: [facility], [address] [place] [address] LADLER: John Hernandez M.D., Ph.D For any questions, please call customer service at FREQUENCY:OTHER Resulting Agency Comment Specimen source: Blood López Mariano MD LAB BLOOD ORDERABLES [facility] See order comments or contact performing lab Unknown, [place] documented in this encounter Visit Diagnoses Not on filedocumented in this encounter
--- OUTSIDE RECORDS SUMMARY | 2023-10-26 07:18 | XMS_ITS | Encounter Summary ---
Author Organization [facility] [place] Address [address] [place] [address] Care Team Providers Care Enlisted Aircrew/Aerial Observer/Gunner Name Role Phone Unavailable Primary Care Provider Unavailabl e Encounter Details Date Type Department Care Team (Late st Contact Info) Description 08/30/2023 Treatment [facility] [place] [address] [place] [address] López Mariano MD [address] [place] [id number] Social History Tobacco Use Types Packs/Day Years [...] Name: Stephanie Norman : 1965 Chart #: [id number] Sex: F This patient was personally seen for a complete visit as part of routine monthly dialysis care. A review of the dialysis treatment, blood pressure, estimated dry weight and recent lab values was made. These were discussed with the patient and staff as necessary. RX SPECIALIST: López Mariano MD LOCATION: [phone] SCHEDULE: M-W-F 2nd Shift EDW: kg. DIALYZER: [...] new symptoms or concerns. Advanced Practitioner Subjective PASSENGER SERVICE MANAGER 07/28/2023: Spoke with patient at chairside. Doing well. Has pain in right hand for the past week; unsure what happened. Will try to go get xray after dialysis. Denies SOB, chest pain, cramping or dizziness. BP stable. AVF working well; no reported issues from staff. Getting to EDW. Continue planof care. No changes today. PASSENGER SERVICE MANAGER 07/02/2023: Patient seen on dialysis. 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 Intact PTH is at goal. Business Center Attendant will adjust binders and vitamin D per protocol and continue to provide dietary education. Cardiovascular Assessment Blood pressures reviewed and are acceptable. Intradialytic weight gains are appropriate. Estimated dry weight is appropriate. Transplant Status: Patient is on transplant list. [facility] - [place] Listed for Transplant at [place] as of Apr 2021 Possible living donors [...]
--- OUTSIDE RECORDS SUMMARY | 2023-10-26 07:18 | XMS_ITS | Encounter Summary ---
Author Organization [facility] Address [address] [place] [address] Care Team Providers Care Design Technology Teacher Name Role Phone Unavailable Primary Care Provider Unavailabl e Encounter Details Date Type Department Care Team (Late st Contact Info) Description 10/20/2023 Orders Only [facility] [place] [address] [place] [address] López Mariano MD [address] [place] [address] Social History Tobacco Use Types [...] Date/Time Associated Diagnosis Comments HD KINETICS Routine 10/20/2023 POST CHEMISTRY Routine 10/20/2023 HEMATOLOGY Routine 10/20/2023 CHEMISTRY Routine 10/20/2023 [facility] RESULTS Routine 10/20/2023 documented in this encounter Results * [facility] Lab Results (10/20/2023) eKdrt/V 1.46 [facility] Center eKt/V Gotch 1.46 [facility] spKt/V Gotch 1.72 [facility] ge Center eNPCR 1.18 [facility] eKt/V ([place]) 1.41 [facility] PCR 68.39 [facility] WSTDKT/V 2.5 [facility] nPCR_HD 1.28 [facility] spKt/V (Daugirdas II) 1.64 [facility] 10/20/2023 10/20/2023 [place] Ordering Provider LAB BLOOD ORDERABLE S [facility] Contact Performing lab Unknown, [place] * (ABNORMAL) HEMATOLOGY (10/20/2023) Neutrophils 92.8(H) 40.0 - 75.0 % [facility] [...] 10/20/2023 10/21/2023 9:3 1 AM CDT Narrative [facility] - 10/21/2023 Unless otherwise specified, test(s) performed at: [email or web address], [address] [place] [address], [place] [address] BMET: John Hernandez M.D., Ph.D For any questions, please call customer service at Confirmed by slide review. FREQUENCY:MONTHLY Resulting Agency Comment Specimen source: Blood López Mariano MD LAB BLOOD ORDERABLES Performing Organization Address [facility] de Phone Number [facility] See order comments or contact performing lab Unknown, [place] * HD KINETICS (10/20/2023) % Urea Reduction 76 65 - 80 % [facility] 10/20/2023 10/21/2023 7:5 3 AM CDT Narrative Resulting Agency Comment Specimen source: Plasma López Mariano MD LAB BLOOD ORDERABLES Performing Organization Address [facility] de Phone Number [facility] See order comments or contact performing lab Unknown, [place] * POST CHEMISTRY (10/20/2023) BUN Post Dialysis 17 6 - 19 mg/dL [facility] 10/20/2023 10/21/2023 7:5 3 AM CDT Narrative [facility] - 10/21/2023 Unless otherwise specified, test(s) performed at: [email or web address], [address] [place] [address], [place] [address] BMET: John Hernandez M.D., Ph.D For any questions, please call customer service at FREQUENCY:MONTHLY Resulting Agency Comment Specimen source: Plasma López Mariano MD LAB BLOOD ORDERABLES Performing Organization Address [facility] Co de Phone Number [facility] See order comments or contact performing lab Unknown, [place] * (ABNORMAL) [facility] (10/20/2023) BUN 70(H) 6 - 19 mg/dL [facility] [...] 8:0 4 AM CDT Narrative [facility] - 10/21/2023 Unless otherwise specified, test(s) performed at: [email or web address], [address] [place] [address], [place] [address] BMET: John Hernandez M.D., Ph.D For any questions, please call customer service at FREQUENCY:MONTHLY Resulting Agency Comment Specimen source: Serum López Mariano MD LAB BLOOD ORDERABLES [facility] See order comments or contact performing lab Unknown, [place] documented in this encounter Visit Diagnoses Not on filedocumented in this encounter
--- OUTSIDE RECORDS SUMMARY | 2023-10-26 07:18 | XMS_ITS | Encounter Summary ---
Author Organization [facility] Address [address] [place] [address] Care Team Providers Care Legal Administrative Secretary Name Role Phone Unavailable Primary Care Provider Unavailabl e Encounter Details Date Type Department Care Team (Late st Contact Info) Description 09/08/2023 Orders Only [facility] [place] [address] [facility] [address] [place] [address] López Mariano MD [address] [place] [address] Social History Tobacco Use Types [...] (09/08/2023) Hemoglobin 12.1 12.0 - 16.0 g/dL [facility] Hemoglobin x 3 36.3 36.0 - 48.0 % [facility] 09/08/2023 09/09/2023 9:3 1 AM CDT Narrative [facility] - 09/09/2023 Unless otherwise specified, test(s) performed at: [facility], [address] [place] [address], [place] [address] BOX BENDER: John Hernandez M.D., Ph.D For any questions, please call customer service at FREQUENCY:OTHER Resulting Agency Comment Specimen source: Blood Lóepz Mariano MD LAB BLOOD ORDERABLES [facility] See order comments or contact performing lab Unknown, [place] documented in this encounter Visit Diagnoses Not on filedocumented in this encounter
--- OUTSIDE RECORDS SUMMARY | 2023-10-26 07:18 | XMS_ITS | Encounter Summary ---
Author Organization [facility] Address [address] [place] [address] Care Team Providers Care Boat Ride Operator Name Role Phone Unavailable Primary Care Provider Unavailabl e Encounter Details Date Type Department Care Team (Late st Contact Info) Description 08/06/2023 Treatment [facility] [place] [address] [place] [address] López Mariano MD [address] [place] [address] Social History Tobacco Use Types [...] Name: Stephanie Norman : 1965 Chart #: [id number] Sex: F This patient was personally seen [...] PM ) BP (sit): 107/42 AP(-) / CHIEF DESIGN DRAFTER: 226/201 Pulse: 66 Chairside data as of [...] ORAL Every Treatment During Dialysis 06/28/2023 06/26/2024 EXTRUDING DEPARTMENT SUPERVISOR: López Mariano MD LOCATION: [facility] [phone] SCHEDULE: -W- 2nd Shift EDW: kg. DIALYZER: [...] has no other concerns. Advanced Practitioner Subjective PLANT ENGINEERING MANAGER 07/28/2023: Spoke with patient at chairside. Doing well. Has pain in right hand for the past week; unsure what happened. Will try to go get xray after dialysis. Denies SOB, chest pain, cramping or dizziness. BP stable. AVF working well; no reported issues from staff. Getting to EDW. Continue planof care. No changes today. PLANT ENGINEERING MANAGER 07/02/2023: Patient seen on dialysis. No [...] of access: Fistula Send for fistulagram. 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 Intact PTH is at goal. Messenger Copy will adjust binders and vitamin D per protocol and continue to provide dietary education. Cardiovascular Assessment Blood pressures reviewed and are acceptable. Intradialytic weight gains are appropriate. Estimated dry weight is appropriate. Transplant Status: Patient is on transplant list. Center - [place] Listed for Transplant at [place] as of Apr 2021 Possible living donors [...]
--- OUTSIDE RECORDS SUMMARY | 2023-10-26 07:18 | XMS_ITS | Encounter Summary ---
Author Organization [facility] Address [address] [place] [address] Care Team Providers Care Hospital Recruiter Name Role Phone Unavailable Primary Care Provider Unavailabl e Encounter Details Date Type Department Care Team (Late st Contact Info) Description 08/18/2023 Orders Only [facility] [address] [place] [address] López Mariano MD [address] [place] [address] Social History Tobacco Use Types [...] Lab Results (08/18/2023) spKt/V (Daugirdas II) 1.54 [facility] eKt/V ([place]) 1.32 [facility] eKt/V Gotch 1.37 [facility] WSTDKT/V 2.4 [facility] eKdrt/V 1.37 [facility] eNPCR 1.10 [facility] PCR 65.50 [facility] nPCR_HD 1.25 [facility] spKt/V Gotch 1.62 [facility] 08/18/2023 08/18/2023 Hernesto Ordering Provider LAB BLOOD ORDERABLE S [facility] Contact Performing lab Unknown, [place] * [...] 08/19/2023 Unless otherwise specified, test(s) performed at: [facility], [address] [place] [address] BIOMASS PLANT TECHNICIAN: John Hernandez M.D., Ph.D For any questions, please call customer service at Confirmed by slide review. FREQUENCY:MONTHLY Resulting Agency Comment Specimen source: Blood López Mariano MD LAB BLOOD ORDERABLES Performing Organization Address [facility] Co de Phone Number [facility] See order comments or contact performing lab Unknown, [place] * HD KINETICS (08/18/2023) % Urea Reduction 73 65 - 80 % [facility] 08/18/2023 08/19/2023 2:1 8 PM CDT Narrative Resulting Agency Comment Specimen source: Plasma López Mariano MD LAB BLOOD ORDERABLES Performing Organization Address [facility] de Phone Number [facility] See order comments or contact performing lab Unknown, [place] * POST CHEMISTRY (08/18/2023) BUN Post Dialysis 18 6 - 19 mg/dL [facility] 08/18/2023 08/19/2023 2:1 8 PM CDT Narrative [facility] - 08/19/2023 Unless otherwise specified, test(s) performed at: [facility], [address] [place] [address] BIOMASS PLANT TECHNICIAN: John Hernandez M.D., Ph.D For any questions, please call customer service at FREQUENCY:MONTHLY Resulting Agency Comment Specimen source: Plasma López Mariano MD LAB BLOOD ORDERABLES Performing Organization Address [facility] Co de Phone Number [facility] See order comments or contact performing lab Unknown, [place] * (ABNORMAL) SPECIAL CHEMISTRY (08/18/2023) Vitamin D, 1,25-Dihydroxy 8.0(L) 19.9 - 79.3 pg/mL [facility] 08/18/2023 08/19/2023 12: 19 PM CDT Narrative Resulting Agency Comment Specimen source: Serum López Mariano MD LAB BLOOD BANK TEST ORDERABLES [facility] See order comments [...] 08/19/2023 Unless otherwise specified, test(s) performed at: [facility], [address] [place] [address], [place] [address] BIOMASS PLANT TECHNICIAN: John Hernandez M.D., Ph.D For any questions, please call customer service at FREQUENCY:MONTHLY Resulting Agency Comment Specimen source: Serum López Mariano MD LAB BLOOD ORDERABLES Performing Organization Address [facility] Co de Phone Number [facility] See order comments or contact performing lab Unknown, [place] * (ABNORMAL) [facility] (08/18/2023) PTH 247(H) 16 - 80 pg/mL [facility] 08/18/2023 08/19/2023 10: 02 AM CDT Narrative [facility] - 08/19/2023 Unless otherwise specified, test(s) performed at: [facility], [address] [place] [address], [place] [address] BIOMASS PLANT TECHNICIAN: John Hernandez M.D., Ph.D For any questions, please call customer service at FREQUENCY:MONTHLY Resulting Agency Comment Specimen source: Plasma López Mariano MD LAB BLOOD ORDERABLES Performing Organization Address [facility] Co de Phone Number [facility] See order comments or contact performing lab Unknown, [place] documented in this encounter Visit Diagnoses Not on filedocumented in this encounter
--- OUTSIDE RECORDS SUMMARY | 2023-10-26 07:18 | XMS_ITS | Encounter Summary ---
Author Organization [facility] Address [address] [place] [address] Care Team Providers Care Tangled Yarn Worker Name Role Phone Unavailable Primary Care Provider Unavailabl e Encounter Details Date Type Department Care Team (Late st Contact Info) Description 08/11/2023 Orders Only [facility] [place] [address] [place] [address] López Mariano MD [address] [address] Social History Tobacco Use Types [...] x 3 35.1(L) 36.0 - 48.0 % [email or web address] 08/11/2023 08/12/2023 7:2 0 AM CDT Narrative [facility] - 08/12/2023 Unless otherwise specified, test(s) performed at: [facility], [address] [place] [address] ASSISTANT PROFESSOR OF PHILOSOPHY: John Hernandez M.D., Ph.D For any questions, please call customer service at FREQUENCY:OTHER Resulting Agency Comment Specimen source: Blood López Mariano MD LAB BLOOD ORDERABLES [facility] See order comments or contact performing lab Unknown, [place] documented in this encounter Visit Diagnoses Not on filedocumented in this encounter
--- OUTSIDE RECORDS SUMMARY | 2023-10-26 07:18 | XMS_ITS | Encounter Summary ---
Author Organization [facility] Address [address] [place] [address] Care Team Providers Care Completion Engineer Name Role Phone Unavailable Primary Care Provider Unavailabl e Encounter Details Date Type Department Care Team (Late st Contact Info) Description 07/28/2023 Orders Only [facility] [place] [address] [place] [address] López Mariano MD [address] [place] [address] Social History Tobacco Use Types [...] x 3 34.2(L) 36.0 - 48.0 % [facility] 07/28/2023 07/29/2023 9:2 9 AM CDT Narrative [facility] - 07/29/2023 Unless otherwise specified, test(s) performed at: [facility], [address] [place] [address] MAT CUTTER: John Hernandez M.D., Ph.D For any questions, please call customer service at FREQUENCY:OTHER Resulting Agency Comment Specimen source: Blood López Mariano MD LAB BLOOD ORDERABLES [facility] See order comments or contact performing lab Unknown, [place] documented in this encounter Visit Diagnoses Not on filedocumented in this encounter
--- OUTSIDE RECORDS SUMMARY | 2023-10-26 07:18 | XMS_ITS | Encounter Summary ---
Author Organization [facility] Address [address] [place] [address] Care Team Providers Care Fabric Worker Fitter Name Role Phone Unavailable Primary Care Provider Unavailabl e Encounter Details Date Type Department Care Team (Late st Contact Info) Description 09/15/2023 Orders Only [facility] [place] [address] [place] [address] López Mariano MD [address] [place] [address] Social History Tobacco Use Types [...] x 3 35.4(L) 36.0 - 48.0 % [facility] 09/15/2023 09/16/2023 8:0 1 AM CDT Narrative [facility] - 09/16/2023 Unless otherwise specified, test(s) performed at: [facility], [address] [place] [address] TOW BAR DRIVER: John Hernandez M.D., Ph.D For any questions, please call customer service at FREQUENCY:OTHER Resulting Agency Comment Specimen source: Blood López Mariano MD LAB BLOOD ORDERABLES [facility] See order comments or contact performing lab Unknown, [place] documented in this encounter Visit Diagnoses Not on filedocumented in this encounter
--- OUTSIDE RECORDS SUMMARY | 2023-10-26 07:18 | XMS_ITS | Encounter Summary ---
Author Organization [facility] Address [address] [place] [address] Care Team Providers Care Leather Goods Sales Representative Name Role Phone Unavailable Primary Care Provider Unavailabl e Encounter Details Date Type Department Care Team (Late st Contact Info) Description 09/29/2023 Orders Only [facility] [place] [address] [place] [address] López Mariano MD [address] [place] [address] Social History Tobacco Use Types [...] x 3 35.7(L) 36.0 - 48.0 % [facility] 09/29/2023 09/30/2023 11: 25 AM CDT Narrative [facility] - 09/30/2023 Unless otherwise specified, test(s) performed at: [facility], [address] [place] [address], [place] [address] ELECTROTYPER HELPER: John Hernandez M.D., Ph.D For any questions, please call customer service at FREQUENCY:OTHER Resulting Agency Comment Specimen source: Blood López Mariano MD LAB BLOOD ORDERABLES [facility] See order comments or contact performing lab Unknown, [place] documented in this encounter Visit Diagnoses Not on filedocumented in this encounter
--- OUTSIDE RECORDS SUMMARY | 2023-10-26 07:18 | XMS_ITS | Encounter Summary ---
Author Organization [facility] [place] Address [address] [place] [address] Care Team Providers Care Manager Insurance Name Role Phone Unavailable Primary Care Provider Unavailabl e Encounter Details Date Type Department Care Team (Late st Contact Info) Description 09/17/2023 Treatment [facility] [place] [address] [place] [address] Viji Chavez, CONVENIENCE STORE MANAGER-MONOMER RECOVERY SUPERVISOR [address] [place] [address] Social History Tobacco Use Types Packs/Day Years [...] Name: Stephanie Norman : 1965 Chart #: [id number] Sex: F This patient was personally seen [...] AM ) BP (sit): 108/44 AP(-) / FIRE CONTROL OFFICER: 131/67 Pulse: 63 Chairside data as of [...] 3 Values 09/01/2023 08/30/2023 08/20/2023 Access Flow [id number] > 2000 Treatment Medication Orders Medication Sig Start Date End Date Heparin Sodium (Porcine) 1,000 Units/mL Systemic 2000 units IVP Every Treatment 01/25/2023 01/24/2024 Heparin Sodium (Porcine) 1,000 Units/mL Systemic 4000 units IVP Every Treatment 01/25/2023 01/24/2024 Vitamin D (Calcitriol) Oral 0.25 mcg ORAL Every Treatment During Dialysis 06/28/2023 06/26/2024 WINDOWS SYSTEMS ADMINISTRATOR: López Mariano MD LOCATION: [phone] SCHEDULE: - 2nd Shift EDW: kg. DIALYZER: HD DURATION: NEEDLE SIZE: ANTICOAG: BATH: QB: ml/min QD: ml/min Subjective No new complaints. 08/30/23: Stehpanie is doing very well. She had fistulagram after she had spurting blood from her access site. She had two stenoses with intervention done she says - I have not yet seen the report. She feels excellent, no bleeding from her AVF site anymore, labs are excellent and she has no new symptoms or concerns. Advanced Practitioner Subjective COAGULATING BATH MIXER 09/17/2023: Patient seen on dialysis. 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 Intact PTH is at goal. Chemistry Laboratory Technician will adjust binders and vitamin D per protocol and continue to provide dietary education. Cardiovascular Assessment Blood pressures reviewed and are acceptable. Intradialytic weight gains are appropriate. Estimated dry weight is appropriate. Transplant Status: Patient is on transplant list. [facility] [place] List[place] for Transplant at [place] as of Apr 2021 Possible living donors x2 possibly after she attended a graduation alliance party and two people expressed interest! Resuscitation [...]
--- OUTSIDE RECORDS SUMMARY | 2023-10-26 07:18 | XMS_ITS | Encounter Summary ---
Author Organization [facility] [place] Address [address] [place] [address] Care Team Providers Care Women'S Soccer Coach Name Role Phone Unavailable Primary Care Provider Unavailabl e Encounter Details Date Type Department Care Team (Late st Contact Info) Description 07/28/2023 Treatment [facility] [place] [address] [place] [address] Viji Chavez, COTTRELL BLOWER-ELECTRIC TRUCK DRIVER [address] [place] [address] Social History Tobacco Use Types Packs/Day Years [...] Name: Stephanie Norman : 1965 Chart #: [id number] Sex: F This patient was personally seen [...] AM ) BP (sit): 121/63 AP(-) / DIRECTOR OF ENTERPRISE STRATEGY: 63/86 Pulse: 60 Chairside data as of [...] ORAL Every Treatment During Dialysis 06/28/2023 06/26/2024 POULTRY HATCHERY MAN: López Mariano MD LOCATION: [facility] [phone] SCHEDULE: -- 2nd Shift EDW: kg. DIALYZER: HD DURATION: NEEDLE SIZE: ANTICOAG: BATH: QB: ml/min QD: ml/min Subjective No new complaints. 07/11: She is doing well. NO symptoms during treatment. Stable dry weight. BP controlled. AVF working well, no new issues or concerns. Has new job that is starting July 27. Advanced Practitioner Subjective CAMPUS SUPERVISOR 07/28/2023: Spoke with patient at chairside. Doing well. Has pain in right hand for the past week; unsure what happened. Will try to go get xray after dialysis. Denies SOB, chest pain, cramping or dizziness. BP stable. AVF working well; no reported issues from staff. Getting to EDW. Continue planof care. No changes today. CAMPUS SUPERVISOR 07/02/2023: Patient seen on dialysis. No new [...] of access: Fistula Send for fistulagram. 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 Intact PTH is at goal. Tomb Maker Helper will adjust binders and vitamin D per protocol and continue to provide dietary education. Cardiovascular Assessment Blood pressures reviewed and are acceptable. Intradialytic weight gains are appropriate. Estimated dry weight is appropriate. Improved IDWG's Transplant Status: Patient is on transplant list. [facility] [place] List[place] for Trans[place] as of Apr 2021 Possible living donors [...]
--- OUTSIDE RECORDS SUMMARY | 2023-10-26 07:18 | XMS_ITS | Encounter Summary ---
Author Organization [facility] Address [address] [place] [address] Care Team Providers Care Technical Business Systems Analyst Name Role Phone Unavailable Primary Care Provider Unavailabl e Encounter Details Date Type Department Care Team (Late st Contact Info) Description 09/22/2023 Orders Only [facility] [place] [address] [place] [address] López Mariano MD [address] [place] [address] Social History Tobacco Use Types [...] [facility] Lab Results (09/22/2023) eKdrt/V 1.51 [facility] eKt/V Gotch 1.51 [facility] eNPCR 0.92 [facility] spKt/V (Daugirdas II) 1.68 [facility] spKt/V Gotch 1.79 [facility] nPCR_HD 0.99 [facility] eKt/V ([place]all) 1.44 [facility] PCR 52.47 [facility] WSTDKT/V 2.5 [facility] 09/22/2023 09/22/2023 Hernesto Ordering Provider LAB BLOOD ORDERABLE S Performing Organization Address [facility] [[email or web address]] Co de Phone Number [facility] Contact Performing lab Unknown, [place] * HD KINETICS (09/22/2023) % Urea Reduction 76 65 - 80 % [facility] 09/22/2023 09/24/2023 2:1 1 AM CDT Narrative Resulting Agency Comment Specimen source: Plasma López Mariano MD LAB BLOOD ORDERABLES Performing Organization Address [facility] de Phone Number [facility] See order comments or contact performing lab Unknown, [place] * POST CHEMISTRY (09/22/2023) BUN Post Dialysis 12 6 - 19 mg/dL [facility] 09/22/2023 09/24/2023 2:1 1 AM CDT Narrative [facility] - 09/24/2023 Unless otherwise specified, test(s) performed at: [facility], [address] [place] [address], [place] [address] GYMNASTIC COACH: John Hernandez M.D., Ph.D For any questions, please call customer service at FREQUENCY:MONTHLY Resulting Agency Comment Specimen source: Plasma López Mariano MD LAB BLOOD ORDERABLES Performing Organization Address [facility] de Phone Number [facility] [...] 4:2 7 PM CDT Narrative [facility] - 09/23/2023 Unless otherwise specified, test(s) performed at: [facility], [address] [place] [address], [place] [address] GYMNASTIC COACH: John Hernandez M.D., Ph.D For any questions, please call customer service at FREQUENCY:MONTHLY Resulting Agency Comment Specimen source: Serum López Mariano MD LAB BLOOD ORDERABLES [facility] See order comments or contact performing [...] 09/22/2023 09/23/2023 12: 56 PM CDT Narrative [facility] - 09/23/2023 Unless otherwise specified, test(s) performed at: [facility], [address] [place] [address], [place] [address] GYMNASTIC COACH: John Hernandez M.D., Ph.D For any questions, please call customer service at FREQUENCY:MONTHLY Resulting Agency Comment Specimen source: Blood López Mariano MD LAB BLOOD ORDERABLES [facility] See order comments or contact performing lab Unknown, [place] documented in this encounter Visit Diagnoses Not on filedocumented in this encounter
--- OUTSIDE RECORDS SUMMARY | 2023-10-26 07:18 | XMS_ITS | Encounter Summary ---
Author Organization [facility] Address [address] [place] [address] Care Team Providers Care Real Estate Sales Agent Name Role Phone Unavailable Primary Care Provider Unavailabl e Encounter Details Date Type Department Care Team (Late st Contact Info) Description 10/06/2023 Orders Only [facility] [place] [address] [place] [address] López Mariano MD [address] [place] [address] Social History Tobacco Use Types [...] x 3 35.7(L) 36.0 - 48.0 % [facility] 10/06/2023 10/08/2023 11: 01 AM CDT Narrative [facility] - 10/08/2023 Unless otherwise specified, test(s) performed at: [facility], [address] [place] [address], [place] [address] SHANK CUTTER: John Hernandez M.D., Ph.D For any questions, please call customer service at FREQUENCY:OTHER Resulting Agency Comment Specimen source: Blood López Mariano MD LAB BLOOD ORDERABLES [facility] See order comments or contact performing lab Unknown, [place] documented in this encounter Visit Diagnoses Not on filedocumented in this encounter
--- OUTSIDE RECORDS SUMMARY | 2023-10-26 07:19 | XMS_ITS | Encounter Summary ---
Author Organization [facility] Address [address] [place] [address] Care Team Providers Care Diamond Cleaner Name Role Phone Haylee Alanis APRN, CNP Primary Care Provide r Encounter Details Date Type Department Care Team (Latest Contact Info) Description 04/10/1997 Orders Only [facility], [address] [place], [place] [id number] Social History Tobacco Use Types Packs/Day Years Used Date Smoking Tobacco: Never Assessed Sex and Gender Information Value Date Recorded Sex Assigned at Not on file Gender Identity Not on file Sexual Orientation Not on file documented as of this encounter Plan of Treatment Not on file documented as of this encounter Visit Diagnoses Not on filedocumented in this encounter Care Teams Diamond Cleaner Relationship Specialty Start Date End Date Haylee Alanis APRN, CNP [address] [place] [address] PCP - General Nurse Practitioner 02/04/16 documented as of this encounter
--- OUTSIDE RECORDS SUMMARY | 2023-10-26 07:19 | XMS_ITS | Encounter Summary ---
Author Organization [facility] Address [address] [place] [address] Care Team Providers Care Therapeutic Support Staff Name Role Phone Unavailable Primary Care Provider Unavailabl e Encounter Details Date Type Department Care Team (Late st Contact Info) Description 07/21/2023 Orders Only [facility] [address] [place] [address] López Mariano MD [address] [place] [address] Social History Tobacco Use Types [...] Lab Results (07/21/2023) spKt/V (Steveirdas II) 1.68 [facility] spKt/V Gotch 1.78 [facility] eKt/V (Tattersall) 1.41 [facility] eKdrt/V 1.47 [facility] WSTDKT/V 2.5 [facility] nPCR_HD 1.14 [facility] eKt/V Gotch 1.47 [facility] eNPCR 1.05 [facility] PCR 59.79 [facility] 07/21/2023 07/21/2023 Ordering Provider LAB BLOOD ORDERABLE S [facility] Contact Performing lab Unknown, [place] [...] 07/22/2023 Unless otherwise specified, test(s) performed at: [facility], [address] [place] [id number] NURSE EPIDEMIOLOGIST: John Hernandez M.D., Ph.D For any questions, please call customer service at FREQUENCY:MONTHLY Resulting Agency Comment Specimen source: Blood López Mariano MD LAB BLOOD ORDERABLES Performing Organization Address [facility] de Phone Number [facility] See order comments or contact performing lab Unknown, [place] * HD KINETICS (07/21/2023) % Urea Reduction 77 65 - 80 % [facility] 07/21/2023 07/22/2023 5:3 9 AM CDT Narrative Resulting Agency Comment Specimen source: Plasma López Mariano MD LAB BLOOD ORDERABLES Performing Organization Address [facility] de Phone Number [facility] See order comments or contact performing lab Unknown, [place] * POST CHEMISTRY (07/21/2023) BUN Post Dialysis 14 6 - 19 mg/dL [facility] 07/21/2023 07/22/2023 5:3 9 AM CDT Narrative [facility] - 07/22/2023 Unless otherwise specified, test(s) performed at: [facility], [address] [place] [id number] NURSE EPIDEMIOLOGIST: John Hernandez M.D., Ph.D For any questions, please call customer service at FREQUENCY:MONTHLY Resulting Agency Comment Specimen source: Plasma López Mariano MD LAB BLOOD ORDERABLES Performing Organization Address [facility] Co de Phone Number [facility] [...] 07/22/2023 Unless otherwise specified, test(s) performed at: [facility], [address] [place] [address], [place] [address] NURSE EPIDEMIOLOGIST: John Hernandez M.D., Ph.D For any questions, please call customer service at FREQUENCY:MONTHLY Resulting Agency Comment Specimen source: Serum López Mariano MD LAB BLOOD ORDERABLES [facility] See order comments or contact performing lab Unknown, [place] * (ABNORMAL) [facility] (07/21/2023) PTH 208(H) 16 - 80 pg/mL [facility] 07/21/2023 07/22/2023 5:1 7 AM CDT Narrative [facility] - 07/22/2023 Unless otherwise specified, test(s) performed at: [facility], [address] [place] [address], [place] [address] NURSE EPIDEMIOLOGIST: John Hernandez M.D., Ph.D For any questions, please call customer service at FREQUENCY:MONTHLY Resulting Agency Comment Specimen source: Plasma López Mariano MD LAB BLOOD ORDERABLES [facility] [employer] [facility] See order comments or contact performing lab Unknown, [place] documented in this encounter Visit Diagnoses Not on filedocumented in this encounter
--- OUTSIDE RECORDS SUMMARY | 2023-10-26 07:19 | XMS_ITS | Encounter Summary ---
Author Organization [facility] Address [address] [place] [address] Care Team Providers Care Sustainment Logistics Analyst Name Role Phone Haylee Alanis APRN, CNP [...] on filedocumented in this encounter Care Teams Sustainment Logistics Analyst Relationship Specialty Start Date End Date Haylee Alanis APRN, CNP [address] [place], [place] [address] PCP - General Nurse Practitioner 02/04/16 documented as of this encounter
--- OUTSIDE RECORDS SUMMARY | 2023-10-26 07:19 | XMS_ITS | Encounter Summary ---
Author Organization [facility] Address [address] [place] [address] Care Team Providers Care Laborer Chicken Farm Name Role Phone Haylee Alanis APRN, CNP Primary Care Provide r Encounter Details Date Type Department Care Team (Latest Contact Info) Description 12/19/1996 Orders Only Soren Padilla MD [facility] [place] [address] Social History Tobacco Use Types [...] on filedocumented in this encounter Care Teams Laborer Chicken Farm Relationship Specialty Start Date End Date Haylee Alanis APRN, CNP [address] [place] [address] PCP - General Nurse Practitioner 02/04/16 documented as of this encounter
--- OUTSIDE RECORDS SUMMARY | 2023-10-26 07:19 | XMS_ITS | Clinical Summary ---
Author Organization [facility] Address [address] [place] [address] Care Team Providers Care Automotive Collision Repair Instructor Name Role Phone Haylee Alanis APRN, CNP [...] for each transition of care or referral. NPS Allergies Active Allergy Reactions Criticality Noted Date [...] mg) by mouth daily. 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 Acidosis [...] with hyperglyceridemia 06/17 Allergic rhinitis 10/22/2004 Overview: [facility] Reflux esophagitis 06/01/2003 Polycystic kidney 06/01/2003 Overview: [facility] Essential hypertension 06/01/2003 Overview: [facility] Varicella 12/20/1996 Overview: [facility] Resolved Problems Problem Noted Date [...] (Injected) 05/14/2009 Influenza IIV4 (Quadrivalent ) 0.5mL (71361) 02/04/2016,12/21/2013 Influenza, Unspecified Formulation 01/24/1997 PPSV23 (Pneumovax) [...] season) 2022 02/28/2021, 06/10/2020, 05/17/2020 Influenza (#1) 2023 01/23/2022, 01/17, 01/24/2020, Additional history exists Pneumococcal [...] BILAT W CAD Routine 03/05/2016 11:50 AM PROFESSOR OF FINE ART HEPATITIS C ANTIBODY, WITH REFLEX Routine 02/04/2016 1:58 PM CDT LIPID PANEL & DIRECT LDL (IF NEEDED) Routine 09/19/2014 7:33 AM CDT Hypercholesterolemia with hyperglyceridemia PAP TEST, ROUTINE Routine 03/14/2012 12: 00 AM PROFESSOR OF FINE ART Screening for cervical cancer from Last 3 Months or Most Recently Relevant to Health Maintenance Results * MM Mammogram Screening Bilat W CAD (03/05/2016 11:50 AM PROFESSOR OF FINE ART) Anatomical Region Laterality Modality Breast Bilateral Mammography Impressions 03/06/2016 3:49 PM PROFESSOR OF FINE ART : ACR BI-RADS Category 1: Negative RECOMMENDATION: Follow Up Imaging in 12 months - Bilateral The results and recommendations of this examination will be communicated to the patient. Narrative 03/06/2016 3:49 PM PROFESSOR OF FINE ART MM MAMMOGRAM SCREENING BILAT W CAD performed [...] PM CDT) Anti-HCV Negative (Non Reactive) NEGNR [facility] Comment: Antibodies to HCV not detected. Does not exclude the possibility of exposure to HCV. 02/04/2016 1:58 PM CDT 02/05/2016 3:46 PM CDT Narrative [facility] - 02/05/2016 6:04 PM CDT Performed at [facility], [address] [place] [address] ??[id number] Haylee Alanis APRN, CNP LAB_1 Performing Organization Address [facility] Co de Phone Number [facility] [phone] * LIPID PANEL AND DIRECT LDL(IF NEEDED) [...] AM CDT 09/19/2014 7:37 AM CDT Narrative [facility] - 09/19/2014 1:07 PM CDT Performed at [facility], [address] [place] [address] ??[id number] Tiffany Gonzalez APRN, GAIL LAB_1 Performing Organization Address [facility] Co de Phone Number [facility] [phone] * PAP TEST, ROUTINE (03/14/2012 12:00 AM PROFESSOR OF FINE ART) Cytology, Pap (NOTE) Fruit Distributor Cytology Report Patient Name: STEPHANIE NORMAN Taken: [...] ?? Microscopic Description Microscopic examination is performed. [facility] Department of Pathology [address] [place] [address] ??[id number] Cook T[employer] 03/14/2012 03/16/2012 10: 29 AM PROFESSOR OF FINE ART Tiffany Gonzalez DUMPMAN, DNP LAB_1 Performing Organization Address City/State/[facility] Co de Phone Number [employer] [address] [address] from Last 3 Months or Most Recently Relevant to Health Maintenance Advance Directives * Full Code (Latest Code Status on File) Date Activated Date Inactivated Comments 01/02/2014 10:34 AM 01/02/2014 6:13 PM Care Teams Automotive Collision Repair Instructor Relationship Specialty Start Date End Date Haylee Alanis, [place], SCRAPER HAND [address] [place] [address] PCP - General Nurse Practitioner 02/04/16
--- OUTSIDE RECORDS SUMMARY | 2023-10-26 07:19 | XMS_ITS | Encounter Summary ---
Author Organization [facility] Address [address] [place] [address] Care Team Providers Care Procurement Coordinator Name Role Phone Haylee Alanis APRN, [...] on filedocumented in this encounter Care Teams Procurement Coordinator Relationship Specialty Start Date End Date Haylee Alanis APRN, CNP [address] [place], [place] [phone] PCP - General Nurse Practitioner 02/04/16 documented as of this encounter
--- OUTSIDE RECORDS SUMMARY | 2023-10-26 07:19 | XMS_ITS | Encounter Summary ---
Author Organization [facility] Address [address] [place] [address] Care Team Providers Care Cosmetics Machine Operator Name Role Phone Haylee Alanis APRN, CNP Primary Care Provide r Encounter Details Date Type Department Care Team (Late st Contact Info) Description 08/24/2013 Outside Hospital External to External, [place] [address] DISCHARGE SUMMARY Social History Tobacco Use Types [...] on filedocumented in this encounter Care Teams Cosmetics Machine Operator Relationship Specialty Start Date End Date Haylee Alanis APRN, CNP [address] [place] [address] PCP - General Nurse Practitioner 02/04/16 documented as of this encounter
--- OUTSIDE RECORDS SUMMARY | 2023-10-26 07:19 | XMS_ITS | Encounter Summary ---
Author Organization [facility] Address [address] [place] [address] Care Team Providers Care Fisher Spear Name Role Phone Haylee Alanis APRN, CNP Primary Care Provide r Encounter Details Date Type Department Care Team (Late st Contact Info) Description 08/24/2013 Outside Hospital External to External, [place] [address] DISCHARGE SUMMARY Social History Tobacco Use Types [...] on filedocumented in this encounter Care Teams Fisher Spear Relationship Specialty Start Date End Date Haylee Alanis APRN, CNP [address] [place] [address] PCP - General Nurse Practitioner 02/04/16 documented as of this encounter
--- OUTSIDE RECORDS SUMMARY | 2023-10-26 07:19 | XMS_ITS | Encounter Summary ---
Author Organization [facility] Address [address] [place] [address] Care Team Providers Care Gas Check Pad Maker Name Role Phone Haylee Alanis APRN, CNP Primary Care Provide r Encounter Details Date Type Department Care Team (Late st Contact Info) Description 08/23/2013 Emergency Room External to External, [place] [address] RT SIDED FLANK AND BACK PAIN BLOOD [...] on filedocumented in this encounter Care Teams Gas Check Pad Maker Relationship Specialty Start Date End Date Haylee Alanis APRN, CNP [address] [place], [place] [id number] PCP - General Nurse Practitioner 02/04/16 documented as of this encounter
--- OUTSIDE RECORDS SUMMARY | 2023-10-26 07:19 | XMS_ITS | Encounter Summary ---
Author Organization [facility] Address [address] [place] [address] Care Team Providers Care Tool Tender Name Role Phone Haylee Alanis APRN, CNP Primary Care Provide r Encounter Details Date Type Department Care Team (Late st Contact Info) Description 03/31/2011 Correspondence External to External, [place] [address] [facility] SIGNATURE OF DELIVERY Social History Tobacco [...] on filedocumented in this encounter Care Teams Tool Tender Relationship Specialty Start Date End Date Haylee Alanis APRN, CNP [address] [place] [address] PCP - General Nurse Practitioner 02/04/16 documented as of this encounter
--- OUTSIDE RECORDS SUMMARY | 2023-10-26 07:19 | XMS_ITS | Encounter Summary ---
Author Organization [facility] Address [address] [place] [address] Care Team Providers Care Distribution Tech Name Role Phone Haylee Alanis APRN, AMY Primary Care Provide r Encounter Details Date Type Department Care Team (Late st Contact Info) Description 04/17/2002 Office Visit [facility] [address] [place] [address] Tiffany Gonzalez APRN, [facility] [address] [place] [phone] Social History Tobacco Use Types Packs/Day Years [...] in it. She does not have a 2nd pressman that she regularly follows up with. New [...] ABNORMAL CREATININE LEVEL, POLYCYSTIC KIDNEY DISEASE cc: COMPASS TESTER documented in this encounter Plan of Treatment Not on file documented as of this encounter Visit Diagnoses Not on filedocumented in this encounter Care Teams Distribution Tech Relationship Specialty Start Date End Date Haylee Alanis, ORGANIC PREPARATION ANALYST, AMY [address] [place] [address] PCP - General Nurse Practitioner 02/04/16 documented as of this encounter
--- OUTSIDE RECORDS SUMMARY | 2023-10-26 07:19 | XMS_ITS | Encounter Summary ---
Author Organization [facility] Address [address] [place] [address] Care Team Providers Care Sheeter Waxer Operator Name Role Phone Haylee Alanis APRN, [...] on filedocumented in this encounter Care Teams Sheeter Waxer Operator Relationship Specialty Start Date End Date Haylee Alanis APRN, CNP [address] [place] [address] PCP - General Nurse Practitioner 02/04/16 documented as of this encounter
--- OUTSIDE RECORDS SUMMARY | 2023-10-26 07:19 | XMS_ITS | Encounter Summary ---
Author Organization [facility] Address [address] [place] [address] Care Team Providers Care Beam Racker Name Role Phone Unavailable Primary Care Provider Unavailabl e Encounter Details Date Type Department Care Team (Late st Contact Info) Description 07/20/2023 Telephone [facility] [address] [place] [address] Joana Rudolph, RN [address] [place] [address] Social History Tobacco Use Types [...]
--- OUTSIDE RECORDS SUMMARY | 2023-10-26 07:19 | XMS_ITS | Encounter Summary ---
Author Organization [facility] Address [address] [place] [address] Care Team Providers Care Saturator Name Role Phone Haylee Alanis APRN, CNP [...] on filedocumented in this encounter Care Teams Saturator Relationship Specialty Start Date End Date Haylee Alanis APRN, CNP [address] [place] [address] PCP - General Nurse Practitioner 02/04/16 documented as of this encounter
--- OUTSIDE RECORDS SUMMARY | 2023-10-26 07:19 | XMS_ITS | Encounter Summary ---
Author Organization [facility] Address [address] [place] [address] Care Team Providers Care Brilliandeer Looper Name Role Phone Haylee Alanis APRN, CNP Primary Care Provide r Encounter Details Date Type Department Care Team (Late st Contact Info) Description 08/23/2013 Outside Hospital External to External, [place] [address] HISTORY PHYSICAL Social History Tobacco Use Types [...] on filedocumented in this encounter Care Teams Brilliandeer Looper Relationship Specialty Start Date End Date Haylee Alanis APRN, CNP [address] [place] [address] PCP - General Nurse Practitioner 02/04/16 documented as of this encounter
== END 2023-10-26 07:16 | disposition home or self-care (01) ==
PROVIDERS: Visit Provider Family Medicine
DX: M54.16 Radiculopathy, lumbar region (principal); M51.26 Other intervertebral disc displacement, lumbar region
CPT/HCPCS: 64483; 64484; Q9966

== ENCOUNTER 2024-04-11 07:55 | Outpatient (CLI) | payer BC, SELFPAY ==
--- OUTSIDE RECORDS SUMMARY | 2024-04-04 14:42 | XMS_ITS ---
Author Name [facility], [facility] Address [address] [place] [address] Phone [phone] Organization [facility] e, NA DOCUMENT DISCLAIMER Multiple document versions may exist, please be sure you review the latest version. 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 [...] Characteristics of Home environment No Information Available Gender and Sex Information Gender Identity Sexual Orientation No Information Available No Information Available MEDICATIONS Prescribed Medications for Dialysis Treatments Medication Instructions Dosage Route Start Date End Date Stat us Heparin Sodium (Porcine) 1,000 Units/mL Systemic Bolus, Every Treatment, Total treatment minutes 210 3000 units Intravenous - push January 28, 2024 January 26, 2025 Active Heparin Sodium (Porcine) 1,000 Units/mL Systemic Intermittent mid run, Every Treatment, Total treatment minutes 210 2000 units Intravenous - push February 09, 2024 February 07, 2025 Active Vitamin D (Calcitriol) Oral During Dialysis, Every Treatment 0.50 mcg Oral November 29, 2023 November 27, 2024 Active Home Medications Medication Instructions Dosage Route Start Date End Date Stat us aspirin 81 mg Take by mouth once a day 1 tablet ORAL February 20, 2019 Active bupropion HCl 75 mg once a day ORAL March 08, 2024 Active carvedilol 6.25 mg Take by mouth twice a day 1/2 tablet ORAL March 08, 2024 Active citalopram 20 mg Take by mouth once a day as directed 1 tablet ORAL March 08, 2024 Active isosorbide mononitrate 10 mg ORAL March 08, 2024 Active Lipitor 40 mg Take by mouth every evening 1 tablet ORAL March 20, 2020 Active loratadine 10 mg Take by mouth once a day 1 tablet ORAL February 20, 2019 Active Nexium 20 mg Take by mouth once a day 1 capsule ORAL February 20, 2019 Active nitroglycerin 0.4 mg Take under tongue as needed 1 tablet SUBLINGUAL March 08, 2024 Active pramipexole 0.25 mg Take by mouth as directed 3 tablet ORAL November 17, 2023 Active Renvela 800 mg Take by mouth three times a day with meals 4 tablet ORAL February 02, 2023 Active torsemide 20 mg Take by mouth twice a day 2 tablet ORAL February 02, 2022 Active trazodone 50 mg Take by mouth at bedtime as needed 1 tablet ORAL April 24, 2020 Active VITAL SIGNS Post-Treatment Vital Signs Vital Sign Value Date / Time Blood Pressure-sitting 96/71 mmHg April 03, 2024 11:34 AM Blood Pressure-standing 131/65 mmHg April 03, 2024 11:34 AM Heart Rate 64 beats per minute April 03, 2024 11:34 AM Respiratory Rate 16 breaths per minute April 03, 2024 11:34 AM Temperature 97.4 deg. F April 03 11:34 AM Weight Vital Sign Value Date / Time Estimated Dry Weight 95.5 kg February 11:59 PM Pre-Dialysis 101.00 kg April 03 11:34 AM Post-Dialysis 97.30 kg April 03 11:34 AM Other Other Value Date / Time Height 173 cm December 16, 2022 12:00 AM Body Mass Index 31.91 kg/m2 March 27 04:49 PM [facility] LAB RESULTS Hematology Result Type Result Value Relevant Referen ce Range Interpretation Date TIBC 242 mcg/dL 185 - 515 mcg/dL - October 20, 2023 UIBC (Calc) 176 mcg/dL 155 - 355 mcg/dL - October Transferrin Sat. (Calc) 27 % 20 - 55 % - October 20, 2023 Neutrophils 92.8 % 40.0 - 75.0 % High October 19, 024 WBC (No Diff) 12.37 1000/mcL 4.80 - 10.80 1000/mcL High October 20, 2023 Platelets 187 1000/mcL 130 - 400 1000/mcL - October 20, 2023 Transferrin Sat. (Calc) 29 % 20 - 55 % - November 24, 2023 TIBC 235 mcg/dL 185 - 515 mcg/dL - November Ferritin 729 ng/mL 10 - 291 ng/mL High November 24, 2023 Neutrophils 80.2 % 40.0 - 75.0 % High November 24, 2023 UIBC (Calc) 168 mcg/dL 155 - 355 mcg/dL - November 24, 2023 Platelets 212 1000/mcL 130 - 400 1000/mcL - 2023 WBC (No Diff) 7.13 1000/mcL 4.80 - 10.80 1000/mcL - November 24, 2023 Transferrin Sat. (Calc) 21 % 20 - 55 % - December 22, 2023 TIBC 227 mcg/dL 185 - 515 mcg/dL - Septembe r 2023 UIBC (Calc) 179 mcg/dL 155 - 355 mcg/dL - Septemb er 2023 Platelets 193 1000/mcL 130 - 400 1000/mcL - Sept ember 2023 WBC (No Diff) 6.42 1000/mcL 4.80 - 10.80 1000/mcL - December 31, 2023 Hemoglobin x 3 32.4 % 36.0 - 48.0 % Low Septemb er 2023 Hemoglobin x 3 33.3 % 36.0 - 48.0 % Low Septemb er 2023 Iron 49 mcg/dL 30 - 160 mcg/dL - January UIBC (Calc) 185 mcg/dL 155 - 355 mcg/dL - January 19, 2024 TIBC 234 mcg/dL 185 - 515 mcg/dL - January 19, 2024 Transferrin Sat. (Calc) 21 % 20 - 55 % - January 19, 2024 Monocytes 4.5 % 3.0 - 10.0 % - January 19, 2024 Lymphocytes 11.1 % 19.0 - 48.0 % Low January Neutrophils 78.9 % 40.0 - 75.0 % High January JESSICA 1.5 % 0.0 - 4.0 % - January 18 024 Basophils 1.2 % 0.0 - 1.5 % - January 18 Eosinophil 2.7 % 0.0 - 7.0 % - January 18 WBC (No Diff) 7.14 1000/mcL 4.80 - 10.80 1000/mcL - January 19, 2024 RDW 14.2 % 11.5 - 14.5 % - January 19, 2024 MCHC 33.2 g/dL 30.0 - 36.0 g/dL - January 19, 2024 MCH 34.2 pg 27.0 - 31.0 pg High January Platelets 181 1000/mcL 130 - 400 1000/mcL - Octo otto 2023 Hemoglobin x 3 33.0 % 36.0 - 48.0 % Low January 19, 2024 Hemoglobin x 3 33.6 % 36.0 - 48.0 % Low January 26, 2024 Hemoglobin x 3 33.9 % 36.0 - 48.0 % Low February 02, 2024 Hemoglobin x 3 34.2 % 36.0 - 48.0 % Low February 09, 2024 Hemoglobin x 3 33.9 % 36.0 - 48.0 % Low February 16, 2024 RDW 13.4 % 11.5 - 14.5 % - February Hemoglobin x 3 36.3 % 36.0 - 48.0 % - Novembe r 2023 Platelets 196 1000/mcL 130 - 400 1000/mcL - Nove mber 2023 Neutrophils 77.3 % 40.0 - 75.0 % High February Lymphocytes 13.6 % 19.0 - 48.0 % Low February Monocytes 4.7 % 3.0 - 10.0 % - February 23, 2024 Eosinophil 2.6 % 0.0 - 7.0 % - February 23, 2024 Basophils 0.6 % 0.0 - 1.5 % - February 23, 2024 JESSICA 1.2 % 0.0 - 4.0 % - February 23, 2024 WBC (No Diff) 6.53 1000/mcL 4.80 - 10.80 1000/mcL - February 23, 2024 MCH 32.6 pg 27.0 - 31.0 pg High February Ferritin 1056 ng/mL 10 - 291 ng/mL High February MCHC 32.2 g/dL 30.0 - 36.0 g/dL - February 23, 2024 Transferrin Sat. (Calc) 35 % 20 - 55 % - February 22 TIBC 220 mcg/dL 185 - 515 mcg/dL - February 23, 2024 UIBC (Calc) 144 mcg/dL 155 - 355 mcg/dL Low be 2023 Iron 76 mcg/dL 30 - 160 mcg/dL - February 23, 2024 Hemoglobin x 3 36.6 % 36.0 - 48.0 % - be r 2023 HGB 11.6 g/dL 12.0 - 16.0 g/dL Low March 08, 2024 Hemoglobin x 3 34.8 % 36.0 - 48.0 % Low Novembe r 2023 HGB 12.1 g/dL 12.0 - 16.0 g/dL - March 15, 2024 Hemoglobin x 3 36.3 % 36.0 - 48.0 % - Novembe r 2023 JESSICA 1.3 % 0.0 - 4.0 % - March 22, 2024 WBC (No Diff) 6.60 1000/mcL 4.80 - 10.80 1000/mcL - March 22, 2024 Eosinophil 4.0 % 0.0 - 7.0 % - March 22, 2024 Basophils 2.8 % 0.0 - 1.5 % High March 22, 2024 Lymphocytes 10.0 % 19.0 - 48.0 % Low March Monocytes 4.3 % 3.0 - 10.0 % - March 22, 2024 MCH 34.3 pg 27.0 - 31.0 pg High March RBC 3.31 mill/mcL 4.20 - 5.40 mill/mcL Low March 22, 2024 HCT 33.0 % 37.0 - 47.0 % Low March Transferrin Sat. (Calc) 24 % 20 - 55 % - March 22 UIBC (Calc) 195 mcg/dL 155 - 355 mcg/dL - 2023 TIBC 257 mcg/dL 185 - 515 mcg/dL - March 22, 2024 Iron 62 mcg/dL 30 - 160 mcg/dL - March 22, 2024 Platelets 203 1000/mcL 130 - 400 1000/mcL - [facility] mb2023 Neutrophils 77.6 % 40.0 - 75.0 % High March HGB 11.4 g/dL 12.0 - 16.0 g/dL Low March 22, 2024 Hemoglobin x 3 34.2 % 36.0 - 48.0 % Low 2023 MCHC 34.4 g/dL 30.0 - 36.0 g/dL - March 22, 2024 RDW 14.0 % 11.5 - 14.5 % - March Hemoglobin x 3 33.3 % 36.0 - 48.0 % Low Merged With [facility] 2023 HGB 11.1 g/dL 12.0 - 16.0 g/dL Low March 29, 2024 Metabolic/Renal Result Type Result Value Relevant Referen ce Range Interpretation Date BUN 33 mg/dL 6 - 19 mg/dL High January 19, 2024 Creatinine, Serum 8.62 mg/dL 0.60 - 1.30 mg/dL High January 19, 2024 BUN/Creat Ratio 3.8 10.0 - 20.0 Low January 19, 2024 Sodium 138 mEq/L 136 - 145 mEq/L - January Potassium 4.5 mEq/L 3.5 - 5.1 mEq/L - January Chloride 107 mEq/L 96 - 108 mEq/L - January Bicarbonate 21 mEq/L 20 - 31 mEq/L - January URR, Calc 76 % 65 - 80 % - January 20 BUN, Post 8 mg/dL 6 - 19 mg/dL - January 21, 2024 BUN 34 mg/dL 6 - 19 mg/dL High January 21, 2024 Chloride 105 mEq/L 96 - 108 mEq/L - February Potassium 4.6 mEq/L 3.5 - 5.1 mEq/L - February 23, 2024 Sodium 140 mEq/L 136 - 145 mEq/L - February 23, 2024 BUN/Creat Ratio 4.9 10.0 - 20.0 Low February 23, 2024 Creatinine, Serum 9.05 mg/dL 0.60 - 1.30 mg/dL High February 23, 2024 BUN 44 mg/dL 6 - 19 mg/dL High February 23, 2024 URR, Calc 75 % 65 - 80 % - February 22, 2 024 BUN, Post 11 mg/dL 6 - 19 mg/dL - February 23, 2024 Bicarbonate 22 mEq/L 20 - 31 mEq/L - February URR, Calc 79 % 65 - 80 % - March 22, 2 024 BUN, Post 9 mg/dL 6 - 19 mg/dL - March 22, 2024 Bicarbonate 24 mEq/L 20 - 31 mEq/L - March Potassium 5.0 mEq/L 3.5 - 5.1 mEq/L - March 22, 2024 Chloride 107 mEq/L 96 - 108 mEq/L - March Sodium 140 mEq/L 136 - 145 mEq/L - March 22, 2024 Creatinine, Serum 8.85 mg/dL 0.60 - 1.30 mg/dL High March 22, 2024 BUN/Creat Ratio 4.7 10.0 - 20.0 Low March 22, 2024 BUN 42 mg/dL 6 - 19 mg/dL High March 22, 2024 HD Adequacy Result Type Result Value Relevant Referen ce Range Interpretation Date Krt/V 0.00 No Reference Ran ge Provided - October 20, 2023 Krt/V 0.00 No Reference Ran ge Provided - November 24, 2023 Krt/V 0.00 No Reference Ran ge Provided - December 22, 2023 wstdKt/V without residual 2.5 No Reference Range Provided - January 21, 2024 eKt/V ([place]) 1.44 No Reference Range Provided - January 21, 2024 wstdKt/V, residual 0.0 No Reference Range Provided - January 21, 2024 wstdKt/V 2.5 No Reference Ran ge Provided - January 21, 2024 spKt/V Gotch 1.79 No Reference Ran ge Provided - January 21, 2024 spKt/V ([facility]) 1.69 No Reference Range Provided - January 21, 2024 Krt/V 0.00 No Reference Ran ge Provided - January 21, 2024 wstdKt/V, residual 0.0 No Reference Range Provided - February 23, 2024 eKt/V ([facility]) 1.41 No Reference Range Provided - February 23, 2024 wstdKt/V without residual 2.5 No Reference Range Provided - February 23, 2024 spKt/V Gotch 1.75 No Reference Ran ge Provided - February 23, 2024 spKt/V ([facility]) 1.65 No Reference Range Provided - February 23, 2024 wstdKt/V 2.5 No Reference Ran ge Provided - February 23, 2024 Krt/V 0.00 No Reference Ran ge Provided - February 23, 2024 wstdKt/V 2.6 No Reference Ran ge Provided - March 22, 2024 spKt/V Gotch 1.98 No Reference Ran ge Provided - March 22, 2024 eKt/V ([facility]) 1.59 No Reference Range Provided - March 22, 2024 wstdKt/V, residual 0.0 No Reference Range Provided - March 22, 2024 wstdKt/V without residual 2.6 No Reference Range Provided - March 22, 2024 spKt/V ([facility]) 1.85 No Reference Range Provided - March 22, 2024 Krt/V 0.00 No Reference Ran ge Provided - March 22, 2024 Bone/Mineral Result Type Result Value Relevant Referen ce Range Interpretation Date Magnesium 2.5 mg/dL 1.6 - 2.6 mg/dL - May 26, 2023 Vitamin D 1,25 Dihydroxy 8.0 pg/mL 19.9 - 79.3 pg/mL Low August 18, 2023 Magnesium 2.6 mg/dL 1.6 - 2.6 mg/dL - August 17 Magnesium 2.3 mg/dL 1.6 - 2.6 mg/dL - November PTH-Intact, Plasma 435 pg/mL 16 - 80 pg/mL High Aug us2023 PTH-Intact, Plasma 252 pg/mL 16 - 80 pg/mL High Sep tem2023 Calcium, Total 9.1 mg/dL 8.7 - 10.4 mg/dL - 2023 Phosphorus 2.6 mg/dL 2.6 - 4.5 mg/dL - January Ca x P Product 24 0 - January Corrected Ca x P Product 23 0 - January 19, 2024 Phosphorus 3.8 mg/dL 2.6 - 4.5 mg/dL - January Corrected Ca x P Product 39 0 - - February 22 Magnesium 2.3 mg/dL 1.6 - 2.6 mg/dL - February 23, 2024 Alkaline Phosphatase 88 U/L 35 - 104 U/L - No vember 2023 Ca x P Product 40 0 - - February Phosphorus 4.2 mg/dL 2.6 - 4.5 mg/dL - February 23, 2024 Calcium, Total 9.5 mg/dL 8.7 - 10.4 mg/dL - 2023 PTH-Intact, Plasma 258 pg/mL 16 - 80 pg/mL High Feb Phosphorus 3.9 mg/dL 2.6 - 4.5 mg/dL - March 22, 2024 Ca x P Product 37 0 - - March Calcium, Total 9.5 mg/dL 8.7 - 10.4 mg/dL - [facility] 2023 Corrected Ca x P Product 36 0 - March 22 Liver/Nutrition Result Type Result Value Relevant Referen ce Range Interpretation Date Globulin (Calc) 2.5 g/dL 2.0 - 4.0 g/dL - 2023 A/G Ratio 1.6 1.0 - 2.0 - January 18 Total Protein 6.6 g/dL 6.0 - 8.5 g/dL - January 19, 2024 Albumin (BCG) 4.1 g/dL 3.5 - 5.2 g/dL - January 19, 2024 eNPCR 0.71 No Reference Ran ge Provided - January 21, 2024 eNPCR 0.83 No Reference Ran ge Provided - February 23, 2024 Albumin (BCG) 4.3 g/dL 3.5 - 5.2 g/dL - be r 2023 Total Protein 6.9 g/dL 6.0 - 8.5 g/dL - 2023 Globulin (Calc) 2.6 g/dL 2.0 - 4.0 g/dL - 2023 A/G Ratio 1.7 1.0 - 2.0 - February 22 A/G Ratio 1.4 1.0 - 2.0 - March 22 Globulin (Calc) 2.9 g/dL 2.0 - 4.0 g/dL - 2023 eNPCR 0.85 No Reference Ran ge Provided - March 22, 2024 Total Protein 7.1 g/dL 6.0 - 8.5 g/dL - 2023 Albumin (BCG) 4.2 g/dL 3.5 - 5.2 g/dL - 2023 Trace Elements Result Type Result Value Relevant Reference Range Interpre tation Date Aluminum < 5 mcg/L 0 - 10 mcg/L - February 23, 2024 Infectious Diseases Result Type Result Value Relevant Referen ce Range Interpretation Date Hep B Surface Ab (anti-HBs) 57 mIU/mL No Reference Range Provided - March 01, 2024 Hep B Surface Ag (HBsAg) Negative No Reference Range Provided - March 22, 2024 DIALYSIS PRESCRIPTION Conventional Hemodialysis Data Element Value Order Date/Time February 28, 2024 Frequency 3X Week Treatment Days MonWedFri Dialyzer 180NRe Optiflux Treatment Time (Total Minutes) 210 min Blood Flow Rate (mL/min) 450 mL/min Dialysate Flow Rate Manual 800 Estimated Dry Weight 95.5 kg Dialysate Concentrate 2.0 K, 2.5 Ca, 1.0 Mg, 100 Dextrose (G2251) Sodium (mEq/L) 137 mEq/L Bicarb Machine Setting (mEq/L) 29 mEq/L Dialysis Access Hemodialysis-AV Fist katharine-Standard, Left Upper Arm, Brachial Artery to Cephalic Vein Access Placed on April 25, 2019 Arterial Needle Size 15g1 Venous Needle Size 15g1 IMMUNIZATIONS Vaccine Date Dose Route Status Flu Vaccine - Flublok Trivalent February 02, 2024 0.5 mL Intramuscular Completed PREVNAR 20 February 02, 2024 0.5 mL Intramuscular Compl eted COMIRNATY - COVID-19 Vaccine ([employer]) March 12, 2023 0.3 mL Intramuscular Completed Flu Vaccine - Flublok Quadrivalent January 27, 2023 0.5 mL Intramuscular Completed [employer] COVID-19 Vac cine, Bivalent, Booster January 26, 2022 0.3 mL Intramuscular Completed Moderna COVID-19 Vaccine, Booster February 28, 2021 0.25 m L Intramuscular Completed PREVNAR August 21, 2020 0.5 mL Intramuscular Completed Moderna COVID-19 Vaccine, Do se 2 of 2 June 10, 2020 0.5 mL Intramuscular Completed Moderna COVID-19 Vaccine, Do se 1 of 2 May 17, 2020 0.5 mL Intramuscular Completed LFOTFBP-B-ASYAO, series 4 of August 23, 2019 40.0 mcg Int ramuscular Completed NDNPYWD-W-KIVQH, series 3 of April 25, 2019 40.0 mcg Intramuscular Completed PVJLBGA-F-SSADD, series 2 of March 25, 2019 40.0 mcg Intramuscular Completed ORWOJMK-B-BLJWF, series 1 of February 22, 2019 40.0 mcg Intramuscular Completed TRANSPLANT WAITLIST STATUS No Information on Transplant Waitlist Status ADVANCE DIRECTIVES Directive Description Ordered By Effective Date Resuscitation status Full Code López Mariano Mar 31, 2024 DIALYSIS TREATMENTS Conventional Hemodialysis Date Pre-Treatment Vitals Post-Treatment Analia ls Duration (hr) BFR (mL/min) Dialysate Dialyzer Dialysis Access Meds Admin Decem 2023 Weight 99.50 kg Weight 95.70 kg 03:14:00 450 2.0 K, 2.5 Ca, 1.0 Mg, 100 Dextrose (G2251) 180nre Optifl ux Blood Pressure-sitting 139/57 mmHg Blood Pressure-sit ting 117/59 mmHg Blood Pressure-standing 136/70 mmHg Blood Pressure-st anding 121/62 mmHg Heart Rate 72 beats per minute Heart Rate 68 beats per minute Respiratory Rate 15 breaths per minute Respiratory Rate 16 breaths per minute Temperature 97.4 deg. F Temperature 97.3 deg. F March 31, 2024 Weight 99.50 kg Weight 96.50 kg 02:36:00 450 2.0 K, 2.5 Ca, 1.0 Mg, 100 Dextrose (G2251) 180nre Optiflux Hemodialysis-AV Fistula-Standard, Left Upper Arm, Brachial Artery to Cephalic Vein Access Placed on April 25, 2019 Heparin Sodium (Porcine) 1,000 Units/mL Systemic; 3000units,Intravenous - push Vitamin D (Calcitriol) Oral; 0.50mcg,Oral Blood Pressure-sitting 134/75 mmHg Blood Pressure-sit ting 119/63 mmHg Blood Pressure-standing 149/84 mmHg Blood Pressure-st anding 130/83 mmHg Heart Rate 73 beats per minute Heart Rate 76 beats per minute Respiratory Rate 16 breaths per minute Respiratory Rate 16 breaths per minute Temperature 96.7 deg. F Temperature 97.5 deg. F April 03, 2024 Weight 101.00 kg Weight 97.30 kg 02:51:00 450 2.0 K, 2.5 Ca, 1.0 Mg, 100 Dextrose (G2251) 180nre Optiflux Hemodialysis-AV Fistula-Standard, Left Upper Arm, Brachial Artery to Cephalic Vein Access Placed on April 25, 2019 Heparin Sodium (Porcine) 1,000 Units/mL Systemic; 2000units,Intravenous - push Heparin Sodium (Porcine) 1,000 Units/mL Systemic; 3000units,Intravenous - push Vitamin D (Calcitriol) Oral; 0.50mcg,Oral Blood Pressure-sitting 151/72 mmHg Blood Pressure-sit ting 96/71 mmHg Blood Pressure-standing 146/69 mmHg Blood Pressure-st anding 131/65 mmHg Heart Rate 69 beats per minute Heart Rate 64 beats per minute Respiratory Rate 16 breaths per minute Respiratory Rate 16 breaths per minute Temperature 97.3 deg. F Temperature 97.4 deg. F
--- OUTSIDE RECORDS SUMMARY | 2024-04-04 14:42 | XMS_ITS | Continuity of Care Document ---
Author Organization [facility] Address [address] [place] [address] Assessment No assessment recorded. Plan of Treatment Reminders Order Date Submit Date Provider Last Modified By Organization Details Last Modified Time Details Appointments None record ed. Lab None record ed. Referral None record ed. Procedures None record ed. Surgeries None record ed. Imaging None record ed. Medication Orders None record ed. Patient TargetsNo targets recorded. Patient InstructionsNo instructions recorded. Reason for Referral None Reported. Problems Name Problem SNOMED Code Status Onset Date Resolution Date Notes Provider Name and Address Organization Details Recorded Time Lumbar segmental dysfunction 905838847 Active 2023 Mode Dacosta DC [address], [place], [address], [facility] 4 14:33:02 Thoracic segmental dysfunction 983751216 Active 2023 Mode Dacosta DC [address], [place], [address], [facility] 4 14:34:01 Cervical segmental dysfunction 663854618 Active 2023 Mode Dacosta DC [address], [place], [address], [facility] 4 14:34:12 Problem Notes None recorded. Procedures Surgical History Date Name Laterality Status Provider Name and Address Organization Details Recorded Time 4 53240: Spinal manipulation , 3 to 4 regions completed Mode Dacosta DC [address], [place], [address], [facility] 03/24/2024 14:32:42 Imaging Results None recorded. Procedure Notes None recorded. Medical Equipment None Reported. Vitals None Recorded Social History None recorded. Functional Status None recorded. Mental Status None recorded. Family History Nothing Reported. Medical History No medical history recorded. Gynecological HistoryNo gynecological history recorded. Obstetrics History GPAL:G 0 P 0 0 0 0 Past Encounters Encounter ID Performer Location Encounter Start Date Encounter Closed Date Diagnosis/Indication Diagnosis SNOMED-CT Code Diagnosis ICD10 Code [id number] MARYA Gaspar [facility] [address] [place] [address] 03/24/2024 10:56:12 03/24/2024 15:11:07 Lumbar segmental dysfunction 175047489 M99.03 Thoracic s egmental dysfunction 102933907 M99.02 Cervical s egmental dysfunction 846919147 M99.01 Health Concerns Section Related Observation LastModified by Organization Detai ls LastModified Time None Recorded Concern Status LastModified by Organization Details LastModified Time None Recorded Payers Encounter Date Sequence Insurance Name Policy Number Policy Feng Covered Member ID Feng Member ID Guarantor Name 03/24/2024 1 [facility] [id number] Stephanie Norman [id number] Stephanie Norman Notes Date Note Type Note Provider Name and Address Organization Details Recorded Time 03/24/2024 text/html HPI - Lumbar SpineReported bypatient.Location: left; With radiation to knee Quality:aching Severity:not changing Timing:morning Aggravating Factors:standing Alleviating Factors:ice Mode Dacosta DC [address], [place], [address], [place] - [facility] 03/24/2024 15:10:38 OBGyn Episode No OBEpisode recorded.
== END 2024-04-11 07:56 | disposition home or self-care (01) ==
LOC: INJ CL 07:57
PROVIDERS: PCP Student in an Organized Health Care Education/Training Program; Visit Provider Family Medicine
DX: M54.16 Radiculopathy, lumbar region (principal)
CPT/HCPCS: 64483; 64484; J1100; Q9966

== ENCOUNTER 2024-11-19 10:24 | Emergency (ER) | payer MEDICARE, OTHER, SELFPAY ==
--- OUTSIDE RECORDS SUMMARY | 2024-10-24 18:45 | XMS_ITS | Encounter Summary ---
Author Organization [facility] Address [address] [place] [id number] Care Team Providers Care Wheel Lacer And Truer Name Role Phone Yudy Joya Primary Care Provider [phone] Blanca Cast MAINTENANCE AND CUSTODIAN SUPERVISOR Unavailable [phone] López Mariano MD Unavailable [phone] Lacey Thompson GROUND HAND TOP COATER Unavailable + [phone] Domingo Ashby GROUND HAND TOP COATER Unavailable Encounter Details Date Type Department Care Team (Late st Contact Info) Description 10/24/2024 6:45 PM CDT Lab [facility] [address] [place] [phone] ESRD (end stage renal disease) (H); Organ transplant candidate Social History Tobacco Use Types Packs/Day Years Used Date Smoking Tobacco: Every Day Cigarettes Passive Smoke Exposure: Never Smokeless Tobacco: Never Alcohol Use Standard Drinks/Week Comments Yes 0 (1 standard drink = 0.6 oz pur e alcohol) 1 beer /day Comments Unknown Sex and Gender Information Value Date Recorded Sex Assigned at Female 06/19/2024 10:51 AM [employer] Legal Sex Female 4:57 AM [employer] Gender Identity Female 06/19/2024 10:51 AM [employer] Sexual Orientation Choose not to disclose 2024 10:51 AM [employer] documented as of this encounter Plan of Treatment Upcoming Encounters Date Type Department Care Team (Late st Contact Info) Description 02/07/2025 3:30 PM CDT Virtual Visit [facility] [address] [place] [address] Domingo Ashby, GROUND HAND TOP COATER [address] [place] [address] Lacey Thompson, GROUND HAND TOP COATER [address] [place] [address] documented as of this encounter Procedures Procedure Name Priority Date/Time Associated Diagnosis Comments PRA SINGLE ANTIGEN IGG ANTIBODY Routine 10/24/2024 11:30 AM CDT ESRD (end stage renal disease) (H) Organ transplant candidate HLA MARTY CLASS II, FLOW SCR Routine 10/24/2024 11:30 AM CDT ESRD (end stage renal disease) (H) Organ transplant candidate HLA MARTY CLASS I, FLOW SCR Routine 10/24/2024 11:30 AM CDT ESRD (end stage renal disease) (H) Organ transplant candidate PRA SINGLE ANTIGEN IGG ANTIBODY Routine 10/24/2024 11:30 AM CDT ESRD (end stage renal disease) (H) Organ transplant candidate documented in this encounter Results * HLA Marty Class II, Flow SCR (10/24/2024 11:30 AM CDT) FLOWPRA2 TEST METHOD FLOW 10/31/2024 4:40 PM CDT [facility] FLOWPRA2 CELL Class II 10/31/2024 4:40 PM CDT [facility] FLOWPRA2 RESULT Neg 4:40 PM CDT [facility] FLOWPRA2 COMMENTS HLA PRA Test performed by modified testing procedure that may also include pretreatment of serum. Pretreatment may be the addition of calf serum, EDTA, and/or adsorption. 10/31/2024 4:40 PM CDT [facility] Comment:HLA PRA test perform ed by modified testing procedure that may also include pretreatment of serum. Pretreatment may be the addition of calf serum, EDTA, and/or adsorption. Blood BLOOD SPECIMEN / Unknown Client Draw / Unknown 10/24/2024 11:30 AM CDT 10/27/2024 12:09 PM CDT Angela Gonzalez MD LAB - IMMUNOLOGY ORDERABLES F inal Result [facility] Immunology/Histocomp atability CLIA: [id number] [facility] [address] [facility] [address], [address] [phone] * HLA Marty Class I, Flow SCR (10/24/2024 11:30 AM CDT) FLOWPRA1 TEST METHOD FLOW 10/31/2024 4:40 PM CDT [facility] FLOWPRA1 CELL Class I 10/31/2024 4:40 PM CDT [facility] FLOWPRA1 RESULT Neg 4:40 PM CDT [facility] FLOWPRA1 COMMENTS HLA PRA Test performed by modified testing procedure that may also include pretreatment of serum. Pretreatment may be the addition of calf serum, EDTA, and/or adsorption. 10/31/2024 4:40 PM CDT [facility] Comment:HLA PRA test perform ed by modified testing procedure that may also include pretreatment of serum. Pretreatment may be the addition of calf serum, EDTA, and/or adsorption. Blood BLOOD SPECIMEN / Unknown Client Draw / Unknown 10/24/2024 11:30 AM CDT 10/27/2024 12:09 PM CDT us Angela Gonzalez MD LAB - IMMUNOLOGY ORDERABLES F inal Result [facility] Immunology/Histocomp atability CLIA: [id number] [facility] [address], [address] [phone] * PRA Single Antigen IgG Antibody (10/24/2024 11:30 AM CDT) Blood BLOOD SPECIMEN / Unknown Client Draw / Unknown 10/24/2024 11:30 AM CDT 10/27/2024 12:09 PM CDT us Angela Gonzalez MD LAB - IMMUNOLOGY ORDERABLES F inal Result [facility] Immunology/Histocomp atability CLIA: [id number] [facility] [address] [facility] [address], Room [address] [phone] documented in this encounter Visit Diagnoses Diagnosis ESRD (end stage renal disease) (H) End stage renal disease Organ transplant candidate Awaiting organ transplant status documented in this encounter Care Teams Wheel Lacer And Truer Relationship Specialty Start Date End Date Yudy Joya PA [address] [place] [address] PCP - General Family Practice 06/19/24 Blanca Cast, CAMILA [address] [place] [phone] Assigned Surgical Provider 08/09/24 López Mariano MD [address] [place] [phone] Nephrology 10/02/24 Lacey Thompson APRN TOP COATER [address] [place] [address] Nurse Practitioner Cardiovascular Disease 10/18/24 Domingo Ashby APRN TOP COATER [address] [place] [address] Nurse Practitioner Nephrology 10/18/24 documented as of this encounter
[2024-11-19] VITALS (19 sets, daily range): BP systolic 146–183; BP diastolic 66–87; PULSE 57–66; RESP 11–23; TEMP 35.7; O2SAT 93–98; BMI 32.9
--- OUTSIDE RECORDS SUMMARY | 2024-11-19 10:26 | XMS_ITS | Clinical Summary ---
Author Organization [employer] [facility] Address [facility] [address] [place] [address] Care Team Providers Care Hospital Liaison Name Role Phone Yudy Joya Primary Care Provider [phone] López Mariano MD Unavailable Allergies Active Allergy Reactions Criticality Noted Date Comments Epoetin Beta, Methoxy Peg Hypotension,Vomiting ,Tachycardia 10/18/2023 Occurred during dialysis. Neomycin Rash High 12/11/2016 Penicillins Hives,Rash High 03/05/2008 Povidone-Iodine Flushing Medium 08/31/2023 Medications aspirin chewable (CHILDRENS ASPIRIN) 81 mg chewable tablet Take 1 tablet by mouth once daily with a meal. 90 tablet 3 11/10/19 19 Active sevelamer carbonate (RENVELA) 800 mg tab tablet Take 3,200 mg by mouth three times daily with meals. 0 06/25/19 21 Active CPAPIndications:OS A on CPAP CPAP machine for home use [...] Frequency of use: Daily 1 Device 11 10/02/19 21 Active Esomeprazole Magnesium 40 mg grps Take 20 mg by mouth. Active sennosides-docusat e (SENOKOT S) (8.6-50 mg) tabletIndications: Peritoneal dialysis catheter dysfunction, subsequent encounter Take 1 Tablet by mouth 2 times daily if needed for Constipation. 20 Tablet 1 9:17 AM PETS SALESPERSON 03/11/20 21 Active acetaminophen (TYLENOL) 325 mg tabletIndications: Peritoneal dialysis catheter dysfunction, subsequent encounter Take 2 Tablets (650 mg) by mouth every 6 hours. Max acetaminophen dose: 4000mg in 24 hrs. 30 Tablet 1 9:17 AM PETS SALESPERSON 03/11/20 21 Active Additional Information Patient taking differently:650 mg Oral Q 6H, Max acetaminophen dose: 4000mg in 24 hrs.as needed, Reported on 10/30/2024 loratadine (CLARITIN) 10 mg tablet Take 10 mg by mouth once daily. Active b complex vitamins (VITAMIN B COMPLEX) capsule Take 1 Capsule by mouth once daily. Active torsemide (DEMADEX) 20 mg tabletIndications: ESRD (end stage renal disease) (HC) Take 2 Tablets (40 mg) by mouth every 12 hours. 11/15/19 24 Active atorvastatin (LIPITOR) 40 mg tabletIndications: Mixed hyperlipidemia Take 1 Tablet (40 mg) by mouth once daily. 90 Tablet 3 11/16/19 24 Active buPROPion (WELLBUTRIN XL) 150 mg Extended-Release tabletIndications: Dysthymia,Tobacco use Take 1 Tablet (150 mg) by mouth once daily in the morning. 90 Tablet 3 11/16/19 24 Active traZODone (DESYREL) 50 mg tabletIndications: Insomnia, unspecified type Take 1 Tablet (50 mg) by mouth at bedtime if needed for Sleep. 90 Tablet 3 11/16/19 24 Active pramipexole (MIRAPEX) 0.25 mg tabletIndications: End stage renal disease (HC),Restless leg Pt takes two tablets on Mon, Wed, Fri and one tablet all other days 12/28/19 24 Active carvediloL (COREG) 6.25 mg tabletIndications: Essential hypertension Take 1 Tablet (6.25 mg) by mouth two times daily. Pt states taking 6.25 mg twice daily. 180 Tablet 3 12/28/19 24 Active isosorbide mononitrate (IMDUR) 30 mg extended release tablet 24 HourIndications:Ch ronic stable angina Take 1 Tablet (30 mg) by mouth once daily. 90 Tablet 3 01/27/20 24 Active traMADoL (ULTRAM) 50 mg tabletIndications: Hip pain, left Take 0.5 Tablets (25 mg) by mouth 2 times daily if needed for Pain. 30 Tablet 03/28/20 24 Active Additional Information Patient not taking.Reported on 10/30/2024 nitroglycerin 0.4 mg sublingual tabletIndications: ASHD (arteriosclerotic heart disease) PLACE 1TAB UNDER THE TONGUE EVERY 5MINS IF NEEDED FOR CHEST PAIN. UP TO 3 TABLETS IN 15 MINUTES. 75 Tablet 3 08/08/19 25 Active citalopram 20 mg tabletIndications: Dysthymia TAKE 1 TABLET(20 MG) BY MOUTH AT BEDTIME 90 Tablet 1 08/26/19 25 Active Active Problems Problem Noted Date Diagnosed Date Lumbar radiculopathy 04/13/2024 Overview (04/13/2024): ~ March 2024: L3-4 and L5-S1 two level epidural steroid injection by Dr. Maddox. Pre-transplant evaluation fo r ESRD (end stage renal disease) 03/31/2021 Polycystic liver 03/31/2019 Peritoneal dialysis catheter dysfunction Mar03/31/2019 TREMAINE 04/04/2020 HST AHI-45 03/30/2019 Tobacco abuse 03/30/2019 Hyperlipidemia 03/29/2019 Uremia 03/01/2019 ESRD (end stage renal disease) due to PCKD 02/22 Overview (03/31/2019): Started on peritoneal dialysis Feb 2019. Catheter malfunction Mar 2019 so started on hemodialysis 03/30/19 Anemia in end-stage renal disease 02/22/2019 Routine adult health maintenance 08/29/2018 Overview (08/29/2018): Colonoscopy 08/2018 diverticulosis, repeat in 5 years, [...] Encounters Date Type Department Care Team Description 11/09/2024 9:45 AM CDT Ancillary Procedure [facility] [address] [facility] [place] [address] 11/09/2024 Travel 11/07/2024 2:30 PM CDT Ancillary Procedure [facility] [address] [facility] [place] [address] 11/07/2024 Travel 10/30/2024 4:00 PM CDT Office Visit [facility] [address] [place] [address] Diane Garcia MD Abdominal Pain 10/30/2024 Travel 10/16/2024 Telephone [facility] [address] [place] [address] Luis Miguel Jensen MD Follow Up (Update on Transplant Program ) 09/22/2024 Telephone [facility] [address] [facility] [address] [place] [phone] Diony Siddiqui MD Cardiology Appointment 09/05/2024 Telephone [facility] [address] [place] [address] Marisa Jerez RN Transplant Eval (Team meeting (Hold)) 09/04/2024 Telephone [facility] [address] [place] [address] Yudy Joya PA Screening (COLONOSCOPY) 08/28/2024 Telephone [facility] Transplant Prov[facility] [address] [place] [address] Marisa Jerez RN Transplant Eval (Imaging studies ) 08/27/2024 Telephone [facility] Transplant Prov[facility] [address] [place] [phone] Shar Dias MD Transplant Eval (DDRT call in ) 08/24/2024 Refill [facility] [address] [place] [address] Yudy Joya PA Refill Request (Citalopram) from Last 3 Months Immunizations Immunization Administration Dates Next Due AMB Influenza, IIV4 PF (=>6 mos Flulaval,Fluzone Fluarix)(Flu Clinic Only) 01/23/2017 COVID-19 VACCINE (PFIZER-BIO NTECH 10MCG/0.3ML) 5-11YO PF, SDV 03/12/2023 COVID-19 VACCINE COMIRNATY (PFIZER-BIONTECH 30MCG/0.3ML) 12YO+ PFS 03/12/2023 COVID-19 vaccine (Moderna 100mcg/0.5mL) PF, MDV 02/28/2021,06/10/2020,05/17/2020 COVID-19 vaccine (Pfizer-Bio NTech 30mcg/0.3mL) 12YO+ BIVALENT PF, MDV 01/26/2022 COVID-19 vaccine (Pfizer-Bio NTech 30mcg/0.3mL) 12YO+ WANDY-SUCROSE PF, MDV 09/16/2021 Hepatitis B (Adult) 08/23/2019, 0,03/25/2019,2018 Influenza A (H1N1), Inactivated 05/14/2009 Influenza RIV4 (Age 18+ Year s) PRESERV FREE 01/27/2023 Influenza Virus, Unspecified 01/27/2023, 01/23/2022,01/24/2020,2011,01/27/2011,01/28/2010,01/01/2009,1 05/08/2007,02/18/2006,04/15/2004, 997 Influenza, IIV3 (Age >=3 years) 03/14/20 12,01/27/2011,01/28/2010,2008,03/08/2008,02/18/2006,04/15/2004 Influenza, IIV4 01/31/2021, 0,04/02/2018,2016,02/04/2016,12/21/2013 Pneumococcal Poly,23-Valent (Pneumovax) 02/04/2016 Pneumococcal conj 13-Valent (Prevnar 13) 08/21/2020 TD, UNSPECIFIED 2006 Td (Age >=7 Years) 2006 Td, Preservative Free (age > = 7 Years) 2006 Tdap 11/28/2020,05/18/2011 Tuberculin (PPD) 11/25/2022,02/22/2019 Family History Medical History Relation Name Comments Cancer-breast Father Hypertension Father Cancer-breast Mother Anesthesia Malignant Hyperthermia No Family History Blood Disease No Family History Cancer-ovarian No Family History Relation Name Status Comments Father Mother Social History Tobacco Use Types Packs/Day Years Used Date Smoking Tobacco: Former Cigarettes 0.5 30 S tarted: 08/07/2024 Smokeless Tobacco: Never Tobacco Cessation:Counseling Given: Not Answered Alcohol Use Standard Drinks/Week Comments Yes 7 (1 standard drink = 0.6 oz pur e alcohol) about one beer per night PHQ-2 Answer Date Recorded PHQ-2 TOTAL SCORE 0 06/03/2024 Social Connections Answer Date Recorded Do you often feel lonely or isolated from those around you? 0 10/30/2024 Financial Resource Strain Answer Date R ecorded Difficulty of Paying Living Expenses 3 10/30/2024 Difficulty of Paying Living Expenses Not on file 10/30/2024 Food Insecurity Answer Date Recorded Do you worry your food will run out before you are able to buy more? 1 10/30/2024 Transportation Needs Answer Date Record ed Does lack of transportation keep you from medica l appointments? 1 10/30/2024 Does lack of transportation keep you from work, meetings or getting things that you need? 1 10/30/2024 Housing Stability Answer Date Recorded What is your housing situation today? 1 10/30/2024 Utilities Answer Date Recorded Do you have trouble paying f or utilities (for example, heat, electricity, water, phone)? 1 10/30/2024 Comments No Sex and Gender Information Value Date Recorded Sex Assigned at Female 06/24/2020 10:04 AM PETS SALESPERSON Legal Sex Female 6:41 AM PETS SALESPERSON Gender Identity Female 06/24/2020 10:04 AM PETS SALESPERSON Sexual Orientation Not on file Obstetrics History Last Filed Vital Signs Vital Sign Reading Time Taken Comments Blood Pressure 124/68 10/30/2024 4:00 PM CDT Pulse 61 10/30/2024 4:00 PM CDT Temperature 36.8 C (98.3 F) 10/30/2024 4:00 PM CDT Respiratory Rate 16 12/27/2023 1:18 PM CDT Oxygen Saturation 99% 10/30/2024 4:00 PM CDT Inhaled Oxygen Concentration - - Weight 96.1 kg (211 lb 13.8 oz) 10/30/2024 4:00 PM CDT Height 172.7 cm (5' 8) 12/28/2023 2:10 PM CDT Body Mass Index 32.21 12/28/2023 2:10 PM CDT Plan of Treatment Upcoming Encounters Date Type Department Care Team (Late st Contact Info) Description 12/12/2024 10:30 AM CDT Appointment [facility] [address] [place] [address] 12/12/2024 11:00 AM CDT Appointment [facility] [address] [place] [address] 01/09/2025 10:30 AM CDT Office Visit [facility] [address] [place] [address] Diony Siddiqui MD [address] [facility] [address] [place] [address] Health Maintenance Due Date Last Done Comments Zoster (shingles) series for age 50+ (1 of 2) 2014 Hepatitis B series for 19+ ( 5 of 5 - Risk Dialysis Recombivax 3-dose series) 08/22/2020 08/23/2019, 04/25/2019, 03/25/2019, Additional history exists Pneumococcal series for age 50+ (3 of 3 - PPSV23, PCV20 or PCV21) 02/03/2021 08/21/2020, 02/04/2016 COVID-19 vaccine series ( season) 2023 03/12/2023, 03/12/2023, 01/26/2022, Additional history exists RSV vaccine for adults or (1 - Risk 60-74 years 1-dose series) 2024 Influenza Vaccine (#1) 2024 3, 01/27/2023, 01/23/2022, Additional history exists BMI (ht and wt on same day) for age 18+ 12/27/2024 12/28/2023, 12/27/2023, 11/16/2023, Additional history exists Depression screening for age 12+ 06/03/2025 06/03/2024, 05/26/2024, 08/03/2023, Additional history exists Mammogram for age 45-75 07/20/2025 07/21/19 25, 06/29/2023, 12/26/2021, Additional history exists Pap test for age 21-65 11/28/2025 , 11/28/2020, 08/16/2018, Additional history exists Lipids for age 45-75 11/15/2028 11/16/2023, 09/03/2022, 11/28/2020, Additional history exists Tetanus booster 11/28/2030 11/28/2020, 04/21, 2006, Additional history exists Colonoscopy through age 75 09/28/203409/28, 08/29/2018, 08/29/2018, Additional history exists HIV for age 15-65 Completed 10/18/2020 Hepatitis C screening for ag e 18-79 Completed 10/18/2020 Procedures Procedure Name Priority Date/Time Associated Diagnosis Comments US PELVIS COMPLETE TV NURIS 11/09/2024 9:58 AM CDT Abdominal pain, RLQ (right lower quadrant) US ABDOMEN COMPLETE NURIS 11/07/2024 2:59 PM CDT Abdominal pain, RLQ (right lower quadrant) SCAN-COLONOSCOPY 09/28/2024 2:0 0 PM CDT XR MAMMO MIKAYLA BILAT SCREEN Routine 07/20/2024 4:02 PM CDT Visit for screening mammogram LIPID PANEL W REFLEX MEASURED LDL Routine 11/16/2023 3:13 PM CDT Mixed hyperlipidemia PERSONALIZED LIVING MANAGER THIN PREP PAP SCREEN IMAGED Routine 11/28/2020 3:53 PM CDT Screening for malignant neoplasm of cervix ANTI HIV 1/2 Today 10/18/2020 12:12 PM CDT Pre-transplant evaluation for ESRD (end stage renal disease) ANTI HCV Today 10/18/2020 12:12 PM CDT Pre-transplant evaluation for ESRD (end stage renal disease) from Last 3 Months or Most Recently Relevant to Health Maintenance Results * US PELVIS COMPLETE TV (11/09/2024 9:58 AM CDT) Anatomical Region Laterality Modality Pelvis, OVARIES, UTERUS Ultrasou nd 11/09/2024 1:55 PM CDT Narrative 11/09/2024 1:55 PM CDT For Patients: As a result of the Cures Act, medical imaging exams and procedure reports are released immediately into your electronic medical record. You may view this report before your referring provider. If you have questions, please contact your health care provider. Indication: Abdominal pain. Right lower quadrant pain. Technique: Grayscale ultrasound of the pelvis was performed. Limited Doppler was utilized. Transvaginal technique was performed. Comparison: None. Findings: Uterus: The uterus measures 6.3 x 3.9 x 3.5 cm. There is an intramural fibroid within the right side of the uterine fundus measuring approximally 3.0 x 2.9 x 2.3 cm. Endometrium: The endometrial stripe measures 1 mm. Right ovary: Normal right ovary measuring 0.9 x 1.6 x 1.2 cm. Color and spectral Doppler blood flow to the right ovary is documented. Left ovary: Normal left ovary measuring 2.3 x 1.4 x 1.5 cm. Color and spectral Doppler blood flow to the left ovary is documented. Cul-de-sac: No free intraperitoneal fluid. Impression: 1. No acute abnormality. 2. 3.0 cm fundal fibroid. Dictated by Freddy Muniz MD @ 11/09/2024 1:55:09 PM (Electronically Signed) Procedure Note Freddy Muniz MD - 11/09/2024 For Patients: As a result of the Cures Act, medical imagingexams and procedure reports are released immediately into your electronicmedical record. You may view this report before your referring provider.If you have questions, please contact your health care provider. Indication: Abdominal pain. Right lower quadrant pain. Technique: Grayscale ultrasound of the pelvis was performed. Limited Doppler wasutilized. Transvaginal technique was performed. Comparison: None. Findings: Uterus: The uterus measures 6.3 x 3.9 x 3.5 cm. There is an intramuralfibroid within the right side of the uterine fundus measuring approximally3.0 x 2.9 x 2.3 cm. Endometrium: The endometrial stripe measures 1 mm. Right ovary: Normal right ovary measuring 0.9 x 1.6 x 1.2 cm. Color andspectral Doppler blood flow to the right ovary is documented. Left ovary: Normal left ovary measuring 2.3 x 1.4 x 1.5 cm. Color andspectral Doppler blood flow to the left ovary is documented. Cul-de-sac: No free intraperitoneal fluid. Impression: 1. No acute abnormality. 2. 3.0 cm fundal fibroid. Dictated by Freddy Muniz MD @ 11/09/2024 1:55:09 PM (Electronically Signed) us Diane Garcia MD US Final R esult * US ABDOMEN COMPLETE (11/07/2024 2:59 PM CDT) Anatomical Region Laterality Modality Abdomen, LIVER, KIDNEYS, PANCREAS, GALLBLADDER, SPLEEN Ultrasound 11/08/2024 11:4 4 AM CDT Impressions 11/08/2024 11:44 AM CDT No acute or specific finding to explain right upper quadrant abdomen pain. Redemonstration of polycystic kidney and liver disease. Dictated by Dick Hargrove MD @ 11/08/2024 11:44:09 AM (Electronically Signed) Narrative 11/08/2024 11:44 AM CDT For Patients: As a result of the Cures Act, medical imaging exams and procedure reports are released immediately into your electronic medical record. You may view this report before your referring provider. If you have questions, please contact your health care provider. INDICATION: Abdominal pain, right lower quadrant. TECHNIQUE: Ultrasound abdomen complete. Sonographic images of the entire abdomen were obtained using bartlett-scale and color Doppler. COMPARISON: CT abdomen pelvis February 21, 2021. FINDINGS: Liver: Normal in size and echotexture. Innumerable cysts. No masses. No intrahepatic biliary dilatation. Gallbladder: Resected. Common bile duct: 11 mm. Pancreas: Normal in size and appearance. Spleen: Normal in size and appearance. A 1 cm echogenic nodule most consistent with a hemangioma. Kidneys: Both kidneys are normal in size. Normal echotexture and cortex. No suspicious masses, stones, or hydronephrosis. Redemonstration of polycystic kidneys. Vasculature: Proximal abdominal aorta and IVC are normal in caliber. Procedure Note Dick Hargrove MD - 11/08/2024 For Patients: As a result of the Cures Act, medical imagingexams and procedure reports are released immediately into your electronicmedical record. You may view this report before your referring provider.If you have questions, please contact your health care provider. INDICATION: Abdominal pain, right lower quadrant. TECHNIQUE: Ultrasound abdomen complete. Sonographic images of the entire abdomenwere obtained using bartlett-scale and color Doppler. COMPARISON: CT abdomen pelvis February 21, 2021. FINDINGS: Liver: Normal in size and echotexture. Innumerable cysts. No masses. Nointrahepatic biliary dilatation. Gallbladder: Resected. Common bile duct: 11 mm. Pancreas: Normal in size and appearance. Spleen: Normal in size and appearance. A 1 cm echogenic nodule mostconsistent with a hemangioma. Kidneys: Both kidneys are normal in size. Normal echotexture and cortex.No suspicious masses, stones, or hydronephrosis. Redemonstration ofpolycystic kidneys. Vasculature: Proximal abdominal aorta and IVC are normal in caliber. IMPRESSION: No acute or specific finding to explain right upper quadrant abdomen pain.Redemonstration of polycystic kidney and liver disease. Dictated by Dick Hargrove MD @ 11/08/2024 11:44:09 AM (Electronically Signed) us Diane Garcia MD US Final R esult * SCAN-COLONOSCOPY (09/28/2024 2:00 PM CDT) Narrative Procedure Note LorinDennys Cui MD - 09/28/2024 12:52 PM CDT [facility] [address] [address], [address], [place] [address] Patient Name: Stephanie [place] Gender: Female Exam Date: 09/28/2024 Visit Number: [id number] Age: 59 Years Date of : 1965 Attending MD: Dennys Jauregui MD Medical Record#: [id number] Procedure: Colonoscopy Indications: Abnormal imaging Referring MD: Yudy Joya PAC Primary MD: Yudy Joya PAC Medications: Admitting Medications: 0.9% Normal Saline at TKO Intra Procedure Medications: Patient received monitored anesthesia care. Complications: No immediate complications Procedure: An examination of the heart and lungs was performed and found to be withinacceptable limits. . The patient was therefore deemed a reasonablecandidate for endoscopy and sedation. The risks and benefits of the procedure were explained to thepatient.After obtaining informed consent, the patient received monitoredanesthesia care and I passed the scope with difficulty via the rectum to the ileum. The appendiceal orifice andic valve were identified. The scope was retroflexed during theexamination The quality of the prep was good (Golytely). This was a complete examination throughout the entire colon. Findings: Polyp location: transverse colon. Quantity: 2. Size: 3 mm, 4 mm.Polyp shape: sessile. Maneuver: polypectomy was performed with a cold snare. Removal: complete. Retrieval: complete. Bleeding: none. Diverticulosis. Location: - sigmoid. Description: moderate.Size: medium. Quantity: many. No inflammation present. Hemorrhoids. Internal hemorrhoids without bleeding. Comments: Extremely redundant sigmoid colon Impression: Colorectal polyps Diverticulosis of colon without diverticulitis Hemorrhoids, internal MD impression comments: After a close look in the sigmoid where concernfor polyp was on the CT scan. This was not present likely an overcall bythe radiologist. Only 2 small polyps. We will recommend repeatcolonoscopy in 5 years. Preliminary Plan: Repeat colonoscopy in 5 years for colon cancer surveillance Pathology Results: A: COLON, TRANSVERSE, POLYPS: 1. Tubular adenoma (1) and sessile serrated adenoma (1) a. Negative for high grade dysplasia in tubular adenomacomponent b. Negative for overt dysplasia in sessile serrated adenomacomponent 2. Per the colonoscopy report: a. Polyp sizes: 3 mm and 4 mm b. Resection: Complete c. Retrieval: Complete MICROSCOPIC A: Performed Electronically signed by: Abram Billings MD Interpreted at [facility], [address] [place] [id number] Orders Instruction(s)/Education: Instruction/Education Timeframe Assessment Colon Cancer Prevention K63.5 Colon Polyps K63.5 Diverticulosis/Diverticulitis K63.5 Hemorrhoids K63.5 Final Plan: Repeat colonoscopy in 5 years for Colon cancer surveillance. We will attempt to contact you at appropriate intervals via U.S. mail. Wemay not be able to find you or contact you at that time, therefore youshould know that the responsibility for following our recommendation restswith you. If you don't hear from us at the time your procedure is due,please contact our office to schedule an appointment. If your contactinformation should change, please contact our office so that we can updateyour record. _Electronically signed by: Dennys Jauregui MD 09/28/2024 cc: Yudy Joya PAC cc: Yudy Joya PAC us Dennys Padgett MD OTHER Final Resu lt * XR MAMMO MIKAYLA BILAT SCREEN (07/20/2024 4:02 PM CDT) Anatomical Region Laterality Modality BREASTS, Breast Left, Breast Right Bilateral Mammography Impressions 07/21/2024 3:24 PM CDT There is no radiographic evidence for malignancy. Recommend annual mammograms. MAMMOGRAM ASSESSMENT: ACR 1 Negative PATIENTS: You will also receive a letter with your examination results in an easy to read format. If you have questions about your results, please contact your referring provider. Narrative 07/21/2024 3:24 PM CDT For Patients: As a result of the 21st Century Cures Act, medical imaging exams and procedure reports are released immediately into your electronic medical record. You may view this report before your referring provider. If you have questions, please contact your health care provider. XR MAMMO MIKAYLA BILAT SCREEN [[id number]] CLINICAL HISTORY: This is an asymptomatic 59 y.o. patient. INDICATION FOR EXAM: Mammogram Screening. TECHNIQUE: CC and MLO views were obtained. This study was evaluated with the assistance of Computer-Aided Detection. Breast Tomosynthesis was used in interpretation. COMPARISON FILM: Yes 06/29/23 [facility] [employer] 12/26/21 [facility] FINDINGS: The breasts are almost entirely fatty. There are no dominant masses, suspicious micro calcifications or areas of architectural distortion. us Yudy Joya PA MAMMO Final Res ult * (ABNORMAL) LIPID PANEL W REFLEX MEASURED LDL (11/16/2023 3:13 PM CDT) CHOLESTEROL,TOTAL 133 100 - 199 mg/dL 11/16/2023 9:32 PM CDT [facility] Comment: Cholesterol, Total Reference Ranges Desirable <200 mg/dL Borderline 200-239 mg/dL High >=240 mg/dL TRIGLYCERIDES 154(H) <150 mg/dL 11/16/2023 9:32 PM CDT [facility] HDL CHOLESTEROL 48 >40 mg/dL 9:32 PM CDT [facility] NON-HDL CHOLESTEROL 85 <145 mg/dl 11/16/2023 9:32 PM CDT [facility] CHOL/HDL RATIO 2.77 <4.50 11/16/2023 9:32 PM CDT [facility] LDL CHOLESTEROL 54 <=130 mg/dL 11/16/2023 9:32 PM CDT [facility] VLDL CHOLESTEROL 31(H) <=30 mg/dL 11/16/2023 9:32 PM CDT [facility] PROVIDER ORDERED STATUS RANDOM 11/16/2023 9:32 PM CDT [facility] Blood BLOOD SPECIMEN / Unknown Venipuncture / Unknown 11/16/2023 3:13 PM CDT 11/16/2023 3:14 PM CDT us Yudy OVALLES CHEMISTRY Final Res ult [facility] [address] [place] [address], * PERSONALIZED LIVING MANAGER THIN PREP PAP SCREEN IMAGED (11/28/2020 3:53 PM CDT) Case Report Gynecologic Cytology Report Case: [id number] Authorizing Provider: Veronika Pugh PA Collected: 11/28/2020 1553 Ordering Location: [facility] Received: 11/28/2020 1632 Clinic First Screen: [place] Welsh Specimen: PERSONALIZED LIVING MANAGER ThinPrep Vial Screening, Cervical 12/12/2020 12:44 PM CDT [facility] [employer] ENTRAL LABORATORY INTERPRETATION/ RESULT NEGATIVE FOR INTRAEPITHELIAL LESION OR MALIGNANCY (NIL) (none) 12/12/2020 12:44 PM CDT [facility] [employer] ENTRNM LABORATORY at 1244 CDT SPECIMEN ADEQUACY Satisfactory for evaluation No endocervical component seen 12/12/2020 12:44 PM CDT [facility] [employer] ENTRAL LABORATORY HPV REQUEST HPV and PAP 12/12/2020 12:44 PM CDT [facility] [employer] ENTRAL LABORATORY Date of LMP unknown 12/12/2020 12:44 PM CDT [facility] [employer] ENTRAL LABORATORY Last Pap Date 08/16/18 12/12/2020 12:44 PM CDT [facility] [employer] ENTRAL LABORATORY Last Pap Result NIL 12:44 PM CDT [facility] [employer] ENTRAL LABORATORY Abnormal Pap or [place] Bx in last 5 years No 12/12/2020 12:44 PM CDT [facility] Menstrual Status Postmenopausal 12/12/2020 12:44 PM CDT [facility] [place] Bx Done Today No 12/12/2020 12:44 PM CDT [facility] ENTRNM LABORATORY Additional Information None given 12/12/2020 12:44 PM CDT [facility] ENTRNM LABORATORY Comment: Cytology is screened at [facility] - [address], [place] [address] and [facility] - [address], [place] [address] and [facility] - [address] [place] [address] Interpreted at [facility] - [address], [place] [address] Automated Review Successful 12/12/2020 12:44 PM CDT [facility] Comment:Specimen processed s uccessfully by automated hide dropper device, ThinPrep Imaging System, [employer] ANCILLARY TESTING PERSONALIZED LIVING MANAGER HPV Ordered, Please see separate report 12/12/2020 12:44 PM CDT [facility] Note The pap test [...] and malignant lesions. 12/12/2020 12:44 PM CDT [facility] Other (Cervical) Non-Blood / Unknown 11/28/2020 3:53 PM CDT 11/28/2020 4:32 PM CDT us Veronika OVALLES PATHOLOGY/CYTOLOGY Final R esult [facility] [address] [place] [address], [place] * ANTI HCV (10/18/2020 12:12 PM CDT) HEPATITIS C ANTIBODY Non-React clyde Non-React clyde 10/18/2020 1:18 PM CDT [facility] TRAL LABORATORY Comment:Antibodies to HCV no t detected; does not exclude the possibility of exposure to HCV. Blood BLOOD SPECIMEN / Unknown Butterfly / Unknown 10/18/2020 12:12 PM CDT 10/18/2020 12:29 PM CDT Shar Dias MD SEND OUTS Final Result [facility] [address] [place] [address], * ANTI HIV 1/2 (10/18/2020 12:12 PM CDT) HIV-1/HIV-2 ANTIBODY Non-Reacti ve Non-Reacti ve 10/18/2020 1:19 PM CDT [facility] TRAL LABORATORY Comment:HIV-1 p24 and HIV-1/ HIV-2 Ab not detected. Blood BLOOD SPECIMEN / Unknown Butterfly / Unknown 10/18/2020 12:12 PM CDT 10/18/2020 12:29 PM CDT Shar Dias MD SEND OUTS Final Result Performing Organization Address City/[facility]/ZIP Co de Phone Number [facility] [address] [place] [address], from Last 3 Months or Most Recently Relevant to Health Maintenance Insurance [place] [employer] [place] [employer] [id number] [facility] HB ONLY [facility] HB ONLY [facility] PB ONLY Advance Directives * Full Code (Latest Code Status on File) Date Activated Date Inactivated Comments 03/11/2021 5:59 AM 03/11/2021 1:06 PM Question Answer Comments Code Status Discussion: Reviewed Preferences * Full Code Date Activated Date Inactivated Comments 03/29/2019 10:31 PM 03/31/2019 6:39 PM Care Teams Hospital Liaison Relationship Specialty Start Date End Date Yudy Joya PA [address] [place] [address] PCP - General Physician Nurse Midwife/Clinical Instructor 12/15/23 López Mariano MD [address] [place] [address] Nephrology 04/27/24
--- OUTSIDE RECORDS SUMMARY | 2024-11-19 10:26 | XMS_ITS | Encounter Summary ---
Author Organization [facility] Address [address] [place] [address] Care Team Providers Care Packaging Machine Supplies Distributor Name Role Phone Haylee Alanis APRN, CNP Primary Care Provide r Encounter Details Date Type Department Care Team (Latest Contact Info) Description 12/19/1996 Orders Only Soren Padilla MD CO OCCUPATIONAL MEDICINE [facility] [place], [place] [id number] Social History Tobacco Use Types Packs/Day Years Used Date Smoking Tobacco: Never Assessed Comments Unknown Sex and Gender Information Value Date Recorded Sex Assigned at Not on file Legal Sex Female 4:22 AM CDT Gender Identity Not on file Sexual Orientation Not on file documented as of this encounter Plan of Treatment Not on file documented as of this encounter Visit Diagnoses Not on filedocumented in this encounter Care Teams Packaging Machine Supplies Distributor Relationship Specialty Start Date End Date Haylee Alanis APRN, CNP [address] [place] [address] PCP - General Nurse Practitioner 02/04/16 documented as of this encounter
--- OUTSIDE RECORDS SUMMARY | 2024-11-19 10:26 | XMS_ITS | Encounter Summary ---
[facility] Organization [facility] Address [address] [place] [address] Care Team Providers Care Seaman Officer Name Role Phone Haylee Alanis APRN, CNP [...] on filedocumented in this encounter Care Teams Seaman Officer Relationship Specialty Start Date End Date Haylee Alanis APRN, CNP [address] [place] [address] PCP - General Nurse Practitioner 02/04/16 documented as of this encounter
--- OUTSIDE RECORDS SUMMARY | 2024-11-19 10:27 | XMS_ITS | Clinical Summary ---
Author Organization [facility] Address [address] [place] [address] Care Team Providers Care Liaison Inspection Laboratory Assistant Name Role Phone Haylee Alanis APRN, CNP [...] for each transition of care or referral. [employer] Allergies Active Allergy Reactions Criticality Noted Date Comments Amoxicillin Neomycin 08/07/2002 topical sensitization Penicillins 08/06/2000 Medications * This document contains information received from the source organization and may not represent a complete record from that organization. aspirin-acetamin ophen-caffeine (EXCEDRIN MIGRAINE) 250-250-65 MG tablet Take 1 Tablet by mouth every 6 hours as needed. Active acetaminophen (TYLENOL) 500 MG tablet Take 1-2 Tablets (500-1,000 mg) by mouth every 4 hours as needed. Active beclomethasone (QVAR) 80 MCG/ACT inhaler Inhale 1 Puff by mouth two times a day. Rinse mouth after use 7.3 g 3 2 Active omeprazole (PRILOSEC) 20 MG capsule Take 1 Cap by mouth daily. Take 1 hour before a meal. 90 Cap 3 2 Active ALBUterol 2.5 mg/3 mL, 0.083%, nebulizer solutionIndicati ons:Asthma with exacerbation, mild intermittent (HRC) Inhale 3 mL by mouth 4 times a day as needed for Wheezing or Shortness of Breath. 60 Each 6 4 Active traZODone (AKA DESYREL) 50 MG tablet Take 1 Tab by mouth at bedtime as needed for Sleep. 90 Tab 3 4 Active loratadine (CLARITIN) 10 MG tablet Take 1 Tablet (10 mg) by mouth daily at bedtime. Active ferrous gluconate (AKA FERGON) 324 (38 FE) MG tablet Take 1 Tab by mouth daily with breakfast. 100 Tab 12 4 Active Additional Information Patient not taking.Reported on 02/04/2016 carvedilol (AKA COREG) 12.5 MG tablet Take 2 Tabs by mouth two times a day. 120 Tab 2 4 Active lisinopril (AKA ZESTRIL) 20 MG tabletIndication s:Unspecified essential hypertension (HRC) Take 1 Tab by mouth two times a day. 180 Tab 0 5 Active Additional Information Patient not taking.Reported on 01/08/2021 calcitriol (AKA ROCALTROL) 0.25 MCG capsuleIndicatio ns:Polycystic kidney, unspecified type Take 1 Cap by mouth three times a week. 39 Cap 0 5 Active citalopram (AKA CELEXA) 40 MG tablet Take 1 Tab by mouth daily. 90 Tab 3 5 Active felodipine ER (AKA PLENDIL) 2.5 MG tablet Take 2.5 mg by mouth daily. Active calcium acetate (PHOSLO) 667 MG capsule Take 1 Cap by mouth two times a day with meals. 60 Cap 11 5 Active Additional Information Patient not taking.Reported on 02/04/2016 simvastatin (AKA ZOCOR) 40 MG tablet Take 0.5 Tabs by mouth daily at bedtime. 45 Tab 2 6 Active Additional Information Patient not taking.Reported on 01/08/2021 Multiple Vitamins-Iron (MULTIVITAMIN/IR ON OR) Active tolvaptan (AKA SAMSCA) 15 MG tablet Take 60 mg by mouth daily. Take 3 tablets by mouth in the morning and 1 tablet in the evening Active atorvastatin (LIPITOR) 40 MG tablet Take 1 Tablet (40 mg) by mouth daily. 1 Active B Wfsaazk-L-Yylzy Acid (USAMA CAPS) 1 MG Take 1 Capsule by mouth daily. 1 Active esomeprazole (NEXIUM) 40 MG packet Take 20 mg by mouth. Active sevelamer carbonate (RENVELA) 800 MG tablet TAKE 2 TABLETS BY MOUTH THREE TIMES DAILY WITH MEALS AND 1 TABLET TWICE DAILY WITH SNACKS 1 Active torsemide (DEMADEX) 20 MG tablet Take 2 Tablets (40 mg) by mouth daily. 1 Active buPROPion (WELLBUTRIN XL) 150 MG 24 hour release tablet Take 1 Tablet (150 mg) by mouth every morning. 2 Active sodium fluoride dental (PREVIDENT) 1.1 % gel Apply thin ribbon to teeth with toothbrush or mouthpiece tray for at least 1 minute. Spit out gel and rinse mouth thoroughly. 60 g 6 2 Active Active Problems Problem Noted Date Diagnosed Date Other specified examination 01/08/2021 Encounter for immunization 05/14/2020 Atherosclerotic heart diseas e of [place] coronary artery without angina pectoris 04/24/2020 Acidosis [...] breast cancer in first degree relative 06/24/2013 Overview (06/24/2013): Both parents with breast CA. DNA testing was negative for mutation of either BRCA1 or BRCA2 (2013 by ) Mild persistent asthma 08/28/2011 Obstructive sleep apnea 03/31/2011 Overview (01/17/2015): [facility] PMDD (premenstrual dysphoric disorder) 0 Hypercholesterolemia with hyperglyceridemia 06/17 Allergic rhinitis 10/22/2004 Overview (01/17/2015): [facility] Reflux esophagitis 06/01/2003 Polycystic kidney 06/01/2003 Overview (01/17/2015): [facility] Essential hypertension 06/01/2003 Overview (01/17/2015): [facility] Varicella 12/20/1996 Overview (01/17/2015): [facility] Resolved Problems Problem Noted Date Diagnosed Date Resolved Date Other tenosynovitis of hand and wrist 09/05/2012 06/24/2013 Tobacco use disorder 01/06/2008 012 Overview (09/10/2011): February 23, 2011 Asthma 06/17/2005 08/28/2011 Tobacco use disorder 01/15/2005 007 Unspecified disorder of mens truation and other abnormal bleeding from female genital tract 02/18/2004 02/07/2010 Polyp of corpus uteri 02/18/20042010 Immunizations Immunization Administration Dates Next Due Flu Vac (3+ yrs) 03/14/2012, 1,01/28/2010,2008,03/08/2008,02/18/2006,04/15/2004 H1n1 Miv Sanofi 3+ Yr (Injected) 05/14/2009 Influenza IIV4 (Quadrivalent ) 0.5mL (74301) 02/04/2016,12/21/2013 Influenza, Unspecified Formulation 01/24/1997 PPSV23 (Pneumovax) [...] = 0.6 oz pur e alcohol) rarely Comments No Sex and Gender Information Value Date Recorded Sex Assigned at Not on file Legal Sex Female 4:22 AM CDT Gender Identity Not on file Sexual Orientation Not on file 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 Not on file Not on file No t on file Last Filed Vital Signs Vital Sign Reading Time Taken Comments Blood Pressure 127/86 02/04/2016 1:35 PM CDT Pulse 63 12/03/2022 2:28 PM CDT Temperature 36.7 C (98 F) 01/18/2014 1:08 PM CDT Respiratory Rate 18 [...] 1964 HIV Screening (Preventive Services) 1980 HepB Vaccine (1) 1984 Cervical Cancer Screening Due 03/15/2012 03/14/2012, 03/14/2012, 07/05/2008, Additional history exists Zoster/Shingles Vaccine (1 of 2) 2014 Adult Preventive Visit 06/24/2014 4, 03/14/2012, 12/27/2010, Additional history exists Mammogram 03/05/2017 03/05/2016, 04/20, 03/08/2012, Additional history exists Cholesterol 09/20/2019 09/19/2014, 03/0 11/2013, 03/14/2012, Additional history exists DTaP/Tdap/Td Vaccine (2 - Tdap) 05/18/2021 05/18/2011, 2006, 12/19/1996 COVID-19 Vaccine ( season) 2023 03/12/2023, 02/28/2021, 06/10/2020, Additional history exists RSV Vaccine (1 - Risk 60-74 years 1-dose series) 2024 Influenza Vaccine (#1) 2024 , 01/31/2021, 01/24/2020, Additional history exists Hep C Screening (Preventive Services) Completed 02/04/2016, 02/04/2016 (Completed) Pneumococcal Vaccine 50+ Yrs Completed , 08/21/2020, 02/04/2016 HepA Vaccine Aged Out No longer eligi ble based on patient's age to complete this topic Hib Vaccine Aged Out No longer eligi ble based on patient's age to complete this topic IPV (Polio) Vaccine Aged Out No longe r eligible based on patient's age to complete this topic MCV4 Vaccine Aged Out No longer eligi ble based on patient's age to complete this topic Meningococcal B Vaccine Aged Out No l onger eligible based on patient's age to complete this topic Procedures Procedure Name Priority Date/Time Associated Diagnosis Comments MM MAMMOGRAM SCREENING BILAT W CAD Routine 03/05/2016 11:50 AM DEVELOPMENT VICE PRESIDENT HEPATITIS C ANTIBODY, WITH REFLEX (ANTI-HCV) Routine 02/04/2016 1:58 PM CDT LIPID PANEL & DIRECT LDL (IF NEEDED) Routine 09/19/2014 7:33 AM CDT Hypercholesterolemia with hyperglyceridemia PAP TEST, ROUTINE Routine 03/14/2012 12: 00 AM DEVELOPMENT VICE PRESIDENT Screening for cervical cancer from Last 3 Months or Most Recently Relevant to Health Maintenance Results * MM Mammogram Screening Bilat W CAD (03/05/2016 11:50 AM DEVELOPMENT VICE PRESIDENT) Anatomical Region Laterality Modality Breast Bilateral Mammography Impressions 03/06/2016 3:49 PM DEVELOPMENT VICE PRESIDENT : ACR BI-RADS Category 1: Negative RECOMMENDATION: Follow Up Imaging in 12 months - Bilateral The results and recommendations of this examination will be communicated to the patient. Narrative 03/06/2016 3:49 PM DEVELOPMENT VICE PRESIDENT MM MAMMOGRAM SCREENING BILAT W CAD performed on 03/05/16 Compared to: 05/15/2014 MAMMOGRAM SCREENING BILATERAL, 03/08/2012 MAMMOGRAM SCREENING BILATERAL, 02/26/2011 MAMMOGRAM SCREENING BILATERAL FINDINGS: Bilateral screening mammogram was performed with the assistance of Computer-Aided Detection. The breasts have scattered areas of fibroglandular density. There is no radiographic evidence of malignancy. Halyee Alanis APRN, AMY RAD AYANNA Final Result * Hepatitis C Antibody, with Reflex (02/04/2016 1:58 PM CDT) Anti-HCV Negative (Non Reactive) NEGNR [facility] Comment: Antibodies to HCV not detected. Does not exclude the possibility of exposure to HCV. 02/04/2016 1:5 8 PM CDT 02/05/2016 3:46 PM CDT Narrative [facility] - 02/05/2016 6:04 PM CDT Performed at [facility], [address] [place] [address] Haylee Alanis APRN, COMMAND AND CONTROL LAB_1 Final Result [facility] [phone] * LIPID PANEL AND DIRECT LDL(IF NEEDED) [...] AM CDT 09/19/2014 7:37 AM CDT Narrative [facility] - 09/19/2014 1:07 PM CDT Performed at [facility], [address] [place] [address] Tiffany Gonzalez APRN, DNP LAB_1 Final Result Performing Organization Address [facility] Co de Phone Number [facility] [phone] * PAP TEST, ROUTINE (03/14/2012 12:00 AM DEVELOPMENT VICE PRESIDENT) Cytology, Pap (NOTE) Water Truck Driver Cytology Report Patient Name: STEPHANIE NORMAN Taken: 03/14/2012 Received: 03/16/2012 Reported: 03/29/2012 Physician(s): Tiffany Gonzalez Source of Specimen Liquid routine Pap, cervical/endocervi barry: Specimen Adequacy Satisfactory for evaluation. Endocervical component present. Final Cytologic Interpretation/Res ult NEGATIVE FOR INTRAEPITHELIAL LESION OR MALIGNANCY (NILM) Other Cytologic Findings Endometrial cells present RECOMMEND clinical correlation Endometrial cells after age 40, particularly out of phase or after menopause, may be associated with benign endometrium, hormonal alterations and less commonly, endometrial/uterin e abnormalities. Inflammation Electronically Signed Out By Lotus VALLE (ASCP) Lotus VALLE (ASCP) Pap Smear History Date of Last Menstrual Period: 03/06/2012 Microscopic Description Microscopic examination is performed. [facility] Department of Pathology [address] [place] [id number] [facility] 03/14/2012 03/16/2012 10: 29 AM DEVELOPMENT VICE PRESIDENT us Tiffany Gonzalez APRN, DNP LAB_1 Final Result Performing Organization Address [facility] Co de Phone Number [facility] [address] [place] [phone] from Last 3 Months or Most Recently Relevant to Health Maintenance Insurance [facility] Advance Directives * Full Code (Latest Code Status on File) Date Activated Date Inactivated Comments 01/02/2014 10:34 AM 01/02/2014 6:13 PM Care Teams Liaison Inspection Laboratory Assistant Relationship Specialty Start Date End Date Haylee Alanis, STRAIGHTENER AND ALIGNER, COMMAND AND CONTROL [address] [place] [address] PCP - General Nurse Practitioner 02/04/16
--- OUTSIDE RECORDS SUMMARY | 2024-11-19 10:27 | XMS_ITS | Encounter Summary ---
Author Organization [facility] Address [address] [place] [address]. [place] [address] Care Team Providers Care Ror Engineer Name Role Phone Yudy Joya Primary Care Provider [phone] Blanca Cast NP Unavailable [phone] López Mariano MD Unavailable [phone] Encounter Details Date Type Department Care Team (Late st Contact Info) Description 10/10/2024 Telephone [facility] [address] [place] [address] Alie Waters RN Social History Tobacco Use Types Packs/Day Years Used Date Smoking Tobacco: Every Day Cigarettes Passive Smoke Exposure: Never Smokeless Tobacco: Never Alcohol Use Standard Drinks/Week Comments Yes 0 (1 standard drink = 0.6 oz pur e alcohol) 1 beer /day Comments Unknown Sex and Gender Information Value Date Recorded Sex Assigned at Female 06/19/2024 10:51 AM RACING CAR DRIVER Legal Sex Female 4:57 AM RACING CAR DRIVER Gender Identity Female 06/19/2024 10:51 AM RACING CAR DRIVER Sexual Orientation Choose not to disclose 2024 10:51 AM RACING CAR DRIVER documented as of this encounter Miscellaneous Notes * Telephone Encounter - Alie Waters RN - 10/10/2024 9:41 AM CDT Called pt to let her know I have received insurance approval for listing. She has not yet completedthe education. She will call me when she has and we will review that content and go over next stepsfor listing. She had no further questions. documented in this encounter Plan of Treatment Upcoming Encounters Date Type Department Care Team (Late st Contact Info) Description 02/07/2025 3:30 PM CDT Virtual Visit [facility] [address] [place] [phone] Domingo Ashby, TABLET MACHINE OPERATOR POULTRY VACCINATOR [address] [place] [address] Lacey Thompson, TABLET MACHINE OPERATOR POULTRY VACCINATOR [address] [place] [address] documented as of this encounter Visit Diagnoses Not on filedocumented in this encounter Care Teams Ror Engineer Relationship Specialty Start Date End Date Yudy Joya PA [address] [place] [address] PCP - General Family Practice 06/19/24 Blanca Cast NP [address] [place] [address] Assigned Surgical Provider 08/09/24 López Mariano MD [address] [place] [address] Nephrology 10/02/24 documented as of this encounter
--- OUTSIDE RECORDS SUMMARY | 2024-11-19 10:27 | XMS_ITS | Encounter Summary ---
Author Organization [facility] Address [address] [place] [address] Care Team Providers Care Rn Gynecology Name Role Phone Haylee Alanis APRN, CNP Primary Care Provide r Encounter Details Date Type Department Care Team (Late st Contact Info) Description 08/24/2013 Outside Hospital External to External, [place] [address] DISCHARGE SUMMARY Social History Tobacco Use Types Packs/Day Years Used Date Smoking Tobacco: Former Cigarettes Q uit: 02/23/2011 Smokeless Tobacco: Never Comments:Restarted 12/2005; p rior to that stopped for 8 months Alcohol Use Standard Drinks/Week Comments Yes 0.8 (1 standard drink = 0.6 oz p ure alcohol) rarely Comments No Sex and Gender Information Value Date Recorded Sex Assigned at Not on file Legal Sex Female 4:22 AM CDT Gender Identity Not on file Sexual Orientation Not on file 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
--- OUTSIDE RECORDS SUMMARY | 2024-11-19 10:27 | XMS_ITS | Encounter Summary ---
Author Organization [facility] Address [address] [place] [address] Care Team Providers Care Drug Abuse Program Coordinator Name Role Phone Yudy Joya Primary Care Provider [phone] Blanca Cast TOP EXECUTIVE Unavailable [phone] López Mariano MD Unavailable [phone] Lacey Thompson CAREER SERVICES COORDINATOR JAVA PROGRAMMER Unavailable + [phone] Domingo Ashby APRN JAVA PROGRAMMER Unavailable Encounter Details Date Type Department Care Team (Late st Contact Info) Description 07/28/2024 Orders Only [facility] [address] [place] [address] Outside, Provider Social History Tobacco Use Types Packs/Day Years Used Date Smoking Tobacco: Every Day Cigarettes Passive Smoke Exposure: Never Smokeless Tobacco: Never Alcohol Use Standard Drinks/Week Comments Yes 0 (1 standard drink = 0.6 oz pur e alcohol) 1 beer /day Comments Unknown Sex and Gender Information Value Date Recorded Sex Assigned at Female 06/19/2024 10:51 AM DIRECTOR CONTENT MARKETING Legal Sex Female 4:57 AM DIRECTOR CONTENT MARKETING Gender Identity Female 06/19/2024 10:51 AM DIRECTOR CONTENT MARKETING Sexual Orientation Choose not to disclose 2024 10:51 AM DIRECTOR CONTENT MARKETING documented as of this encounter Plan of Treatment Upcoming Encounters Date Type Department Care Team (Late st Contact Info) Description 02/07/2025 3:30 PM CDT Virtual Visit [facility] [address] [place] [address] Domingo Ashby APRN JAVA PROGRAMMER [address] [place] [address] Lacey Thompson APRN JAVA PROGRAMMER [address] [place] [address] documented as of this encounter Procedures Procedure Name Priority Date/Time Associated Diagnosis Comments HLA RESULT REPORT 07/28/2024 9:48 AM CDT documented in this encounter Results * HLA Result Report (07/28/2024 9:48 AM CDT) us Provider Outside LAB - IMMUNOLOGY ORDERABLES Fin al Result documented in this encounter Visit Diagnoses Not on filedocumented in this encounter Care Teams Drug Abuse Program Coordinator Relationship Specialty Start Date End Date Yudy Joya PA [address] [place] [address] PCP - General Family Practice 06/19/24 Blanca Cast, CAMILA [address] [place] [address] [id number] Assigned Surgical Provider 08/09/24 López Mariano MD [address] [place] [phone] Nephrology 10/02/24 Lacey Thompson APRN JAVA PROGRAMMER [address] [place], [place] [address] Nurse Practitioner Cardiovascular Disease 10/18/24 Domingo Ashby APRN JAVA PROGRAMMER [address] [place] [address] Nurse Practitioner Nephrology 10/18/24 documented as of this encounter
--- OUTSIDE RECORDS SUMMARY | 2024-11-19 10:27 | XMS_ITS | Encounter Summary ---
Author Organization [facility] Address [address] [place] [address] Care Team Providers Care Corrosion Engineer Name Role Phone Yudy Joya Primary Care Provider [phone] Blanca Cast TABLEAU LEAD Unavailable [phone] López Mariano MD Unavailable [phone] Lacey Thompson COFFEE BREWER DINING ROOM HOST Unavailable + [phone] Domingo Ashby COFFEE BREWER DINING ROOM HOST Unavailable [phone] Encounter Details Date Type Department Care Team (Late st Contact Info) Description 10/13/2024 Orders Only [facility] [address] [place] [address] Reena Medina LPN ESRD (end stage renal disease) (H) (Primary Dx); Organ transplant candidate Social History Tobacco Use Types Packs/Day Years Used Date Smoking Tobacco: Every Day Cigarettes Passive Smoke Exposure: Never Smokeless Tobacco: Never Alcohol Use Standard Drinks/Week Comments Yes 0 (1 standard drink = 0.6 oz pur e alcohol) 1 beer /day Comments Unknown Sex and Gender Information Value Date Recorded Sex Assigned at Female 06/19/2024 10:51 AM BUSSER Legal Sex Female 4:57 AM BUSSER Gender Identity Female 06/19/2024 10:51 AM BUSSER Sexual Orientation Choose not to disclose 2024 10:51 AM BUSSER documented as of this encounter Plan of Treatment Upcoming Encounters Date Type Department Care Team (Late st Contact Info) Description 02/07/2025 3:30 PM CDT Virtual Visit [facility] [address] [place] [phone] Domingo Ashby APRN DINING ROOM HOST [address] [place] [address] Lacey Thompson APRN DINING ROOM HOST [address] [place], [place] [address] Scheduled Orders Name Type Priority Associated Diagnoses Orde r Schedule PRA Single Antigen IgG Antibody ([id number]) Lab Panel Routine ESRD (end stage renal disease) (H) Organ transplant candidate Every 12 Weeks for 4 Occurrences starting 10/13/2024 until 10/13/2025, 1 completed documented as of this encounter Visit Diagnoses Diagnosis ESRD (end stage renal disease) (H)- Primary End stage renal disease Organ transplant candidate Awaiting organ transplant status documented in this encounter Care Teams Corrosion Engineer Relationship Specialty Start Date End Date Yudy Joya PA [facility] [place] [address] PCP - General Family Practice 06/19/24 Blanca Cast NP [address] [place] [address] 673165 Assigned Surgical Provider 08/09/24 López Mariano MD [address] [place] [phone] Nephrology 10/02/24 Lacey Thompson APRN DINING ROOM HOST [address] [place] [address] Nurse Practitioner Cardiovascular Disease 10/18/24 Domingo Ashby APRN DINING ROOM HOST [address] [place] [address] 731395 Nurse Practitioner Nephrology 10/18/24 documented as of this encounter
--- OUTSIDE RECORDS SUMMARY | 2024-11-19 10:27 | XMS_ITS | Encounter Summary ---
Author Organization [facility] Address [address] [place] [address] Care Team Providers Care Robotic Welder Name Role Phone Yudy Joya Primary Care Provider [phone] Encounter Details Date Type Department Care Team (Late st Contact Info) Description 10/23/2024 Orders Only [facility] [place] [address] [facility] [address] [place] [phone] López Mariano MD [address] [place] [address] Social History Tobacco Use Types Packs/Day Years Used Date Smoking Tobacco: Never Assessed Comments Unknown Sex and Gender Information Value Date Recorded Sex Assigned at Not on file Legal Sex Female 11:57 AM EST Gender Identity Not on file Sexual Orientation Not on file documented as of this encounter Plan of Treatment Not on file documented as of this encounter Procedures Procedure Name Priority Date/Time Associated Diagnosis Comments HD KINETICS Routine 10/23/2024 POST CHEMISTRY Routine 10/23/2024 CHEMISTRY Routine 10/23/2024 [facility] RESULTS Routine 10/23/2024 documented in this encounter Results * [facility] Results (10/23/2024) eKt/V Gotch 1.28 [facility] e Center eKdrt/V 1.28 [facility] spKt/V (Daugirdas II) 1.49 [facility] PCR 47.82 [facility] eKt/V ([place]) 1.27 [facility] nPCR_HD 0.78 [facility] spKt/V Gotch 1.52 [facility] WSTDKT/V 2.4 [facility] eNPCR 0.72 [facility] 10/23/2024 10/23/2024 [facility] Ordering Provider LAB BLOOD ORDERABLES Final Result [facility] Contact Performing lab Unknown, [place] * HD KINETICS (10/23/2024) Pathologist [facility] % Urea Reduction 73 65 - 80 % [facility] 10/23/2024 10/24/2024 2:4 9 AM CDT Narrative [facility] - 10/24/2024 Unless otherwise specified, test(s) performed at: [facility], [address] [place] [address], [place] [address] FORENSIC SCIENTIST: John Hernandez M.D., Ph.D For any questions, please call customer service at FREQUENCY:OTHER Resulting Agency Comment Specimen source: Plasma López Mariano MD LAB BLOOD ORDERABLES Final Re sult [facility] See order comments or contact performing lab Unknown, [place] * (ABNORMAL) [facility] Chemistry (10/23/2024) Pathologist [facility] BUN 51(H) 6 - 19 mg/dL [facility] Sodium 136 136 - 145 mEq/L [facility] Potassium 5.0 3.5 - 5.1 mEq/L [facility] Chloride 100 96 - 108 mEq/L [facility] Bicarbonate (CO2) 24 20 - 31 mEq/L [facility] Calcium 9.1 8.7 - 10.4 mg/dL [facility] Comment: Please note change in reference range. Phosphorus 4.6(H) 2.6 - 4.5 mg/dL [facility] Calcium Phosphorus Product 42 0 - 54 [facility] Iron 35 30 - 160 mcg/dL [facility] UIBC 186 155 - 355 mcg/dL [facility] TIBC 221 185 - 515 mcg/dL [facility] Iron Saturation (TSat) 16(L) 20 - 55 % [facility] 10/23/2024 10/24/2024 4:2 4 AM CDT Narrative [facility] - 10/24/2024 Unless otherwise specified, test(s) performed at: [facility], [address] [place] [address] FORENSIC SCIENTIST: John Hernandez M.D., Ph.D For any questions, please call customer service at FREQUENCY:OTHER Resulting Agency Comment Specimen source: Serum López Mariano MD LAB BLOOD ORDERABLES Final Re sult Performing Organization Address [facility] de Phone Number [employer] [facility] See order comments or contact performing lab Unknown, [place] * POST CHEMISTRY (10/23/2024) BUN Post Dialysis 14 6 - 19 mg/dL [facility] 10/23/2024 10/24/2024 2:4 9 AM CDT Narrative [facility] - 10/24/2024 Unless otherwise specified, test(s) performed at: [facility], [address] [place] [address], [place] [address] FORENSIC SCIENTIST: John Hernandez M.D., Ph.D For any questions, please call customer service at FREQUENCY:OTHER Resulting Agency Comment Specimen source: Plasma López Mariano MD LAB BLOOD ORDERABLES Final Re sult Performing Organization Address [facility] de Phone Number [employer] [facility] See order comments or contact performing lab Unknown, [place] documented in this encounter Visit Diagnoses Not on filedocumented in this encounter Care Teams Robotic Welder Relationship Specialty Start Date End Date Yudy Joya PA [address] [place] [address] PCP - General Family Medicine 06/01/24 documented as of this encounter
--- OUTSIDE RECORDS SUMMARY | 2024-11-19 10:27 | XMS_ITS | Encounter Summary ---
Author Organization [facility] Address [address] [place] [address] Care Team Providers Care Surface Supply Breathing Apparatus Name Role Phone Yudy Joay Primary Care Provider [phone] Blanca Cast BARBER SHOP OPERATOR Unavailable [phone] López Mariano MD Unavailable [phone] Lacey Thompson ANIMAL CARE SUPERVISOR FACILITY REHAB DIRECTOR Unavailable Domingo Ashby ANIMAL CARE SUPERVISOR FACILITY REHAB DIRECTOR Unavailable Encounter Details Date Type Department Care Team (Late st Contact Info) Description 08/24/2024 Results Follow-Up [facility] [address] [place] [address] Domingo Ashby APRN FACILITY REHAB DIRECTOR [address] [place] [address] Social History Tobacco Use Types Packs/Day Years Used Date Smoking Tobacco: Every Day Cigarettes Passive Smoke Exposure: Never Smokeless Tobacco: Never Alcohol Use Standard Drinks/Week Comments Yes 0 (1 standard drink = 0.6 oz pur e alcohol) 1 beer /day Comments Unknown Sex and Gender Information Value Date Recorded Sex Assigned at Female 06/19/2024 10:51 AM MALT HOUSE KILN OPERATOR Legal Sex Female 4:57 AM MALT HOUSE KILN OPERATOR Gender Identity Female 06/19/2024 10:51 AM MALT HOUSE KILN OPERATOR Sexual Orientation Choose not to disclose 2024 10:51 AM MALT HOUSE KILN OPERATOR documented as of this encounter Plan of Treatment Upcoming Encounters Date Type Department Care Team (Late st Contact Info) Description 02/07/2025 3:30 PM CDT Virtual Visit [facility] [address] [place] [phone] Domingo Ashby APRN FACILITY REHAB DIRECTOR [address] [place] [address] Lacey Thompson APRN FACILITY REHAB DIRECTOR [address] [place], [place] 14[address] documented as of this encounter Visit Diagnoses Not on filedocumented in this encounter Care Teams Surface Supply Breathing Apparatus Relationship Specialty Start Date End Date Yudy Joya PA [facility] [place] [address] PCP - General Family Practice 06/19/24 Blanca Cast, CAMILA [address] [place] [address] 280805 Assigned Surgical Provider 08/09/24 López Mariano MD [address] [place] [address] Nephrology 10/02/24 Lacey Thompson APRN FACILITY REHAB DIRECTOR [address] [place] [address] [phone] Nurse Practitioner Cardiovascular Disease 10/18/24 Domingo Ashby APRN FACILITY REHAB DIRECTOR [address] [place] [address] 683035 Nurse Practitioner Nephrology 10/18/24 documented as of this encounter
--- OUTSIDE RECORDS SUMMARY | 2024-11-19 10:27 | XMS_ITS | Encounter Summary ---
Author Organization [facility] Address [address] [place] [address] Care Team Providers Care Caretaker Name Role Phone Haylee Alanis APRN, AMY Primary Care Provide r Encounter Details Date Type Department Care Team (Late st Contact Info) Description 04/17/2002 Office Visit [facility] [address] [place] [address] Tiffany Gonzalez APRN, [facility] [address] [place] [address] Social History Tobacco Use Types Packs/Day Years Used Date Smoking Tobacco: Never Assessed Comments No Sex and Gender Information Value [...] in it. She does not have a acute care nurse that she regularly follows up with. New [...] ABNORMAL CREATININE LEVEL, POLYCYSTIC KIDNEY DISEASE cc: OUT WORKER documented in this encounter Plan of Treatment Not on file documented as of this encounter Visit Diagnoses Not on filedocumented in this encounter Care Teams Caretaker Relationship Specialty Start Date End Date Haylee Alanis, COMMERCIAL REAL ESTATE LENDER, SOFTWARE IMPLEMENTATION SPECIALIST [address], [place] [address] PCP - General Nurse Practitioner 02/04/16 documented as of this encounter
--- OUTSIDE RECORDS SUMMARY | 2024-11-19 10:27 | XMS_ITS | Encounter Summary ---
Author Organization [facility] Address [address] [place] [address] Care Team Providers Care Design Verification Engineer Name Role Phone Yudy Joya Primary Care Provider [phone] Blanca Cast COLLAR STARCHER Unavailable [phone] López Mariano MD Unavailable [phone] Lacey Thompson LIGHT RAIL SIGNAL TECHNICIAN WARP SPOOLER Unavailable + [phone] Domingo Ashby LIGHT RAIL SIGNAL TECHNICIAN WARP SPOOLER Unavailable Reason for Visit * Reason Onset Date Comments Appointment 10/16/2024 Donna Visit Encounter Details Date Type Department Care Team (Late st Contact Info) Description 10/16/2024 [facility] [address] [place] [address] Orly Burrell, ANGELIKA Appointment (Donna Visit) Social History Tobacco Use Types Packs/Day Years Used Date Smoking Tobacco: Every Day Cigarettes Passive Smoke Exposure: Never Smokeless Tobacco: Never Alcohol Use Standard Drinks/Week Comments Yes 0 (1 standard drink = 0.6 oz pur e alcohol) 1 beer /day Comments Unknown Sex and Gender Information Value Date Recorded Sex Assigned at Female 06/19/2024 10:51 AM GLOVE PRINTER Legal Sex Female 4:57 AM GLOVE PRINTER Gender Identity Female 06/19/2024 10:51 AM GLOVE PRINTER Sexual Orientation Choose not to disclose 2024 10:51 AM GLOVE PRINTER documented as of this encounter Miscellaneous Notes * Telephone Encounter - Angely Montelongo - 10/16/2024 12:41 PM CDT [facility] Phone Message May a detailed message be left on voicemail: yes Reason for Call: Appointment Intake Outbound call made to patient to schedule visit with Donna - Provider is only available for in-person appointments on Wednesdays, and patient is at dialysis on those days. Are we okay to do a virtual visit (scheduling out to January 2026 right now). Thanks Action Taken: Message routed to: [facility] SO Travel Screening: Not Applicable Date of Service: documented in this encounter Plan of Treatment Upcoming Encounters Date Type Department Care Team (Late st Contact Info) Description 02/07/2025 3:30 PM CDT Virtual Visit [facility] [address] [place] [address] Domingo Ashby APRN WARP SPOOLER [address] [place] [address] 396655 Lacey Thompson APRN WARP SPOOLER [address] [place] [address] documented as of this encounter Visit Diagnoses Not on filedocumented in this encounter Care Teams Design Verification Engineer Relationship Specialty Start Date End Date Yudy Joya PA [address] [place] [address] PCP - General Family Practice 06/19/24 Blanca Cast NP [address] [place] [address] Assigned Surgical Provider 08/09/24 López Mariano MD [address] [place] [phone] Nephrology 10/02/24 Lacey Thompson APRN WARP SPOOLER [address] [place] [address] [phone] Nurse Practitioner Cardiovascular Disease 10/18/24 Domingo Ashby APRN WARP SPOOLER [address] [place] [address] [phone] Nurse Practitioner Nephrology 10/18/24 documented as of this encounter
--- OUTSIDE RECORDS SUMMARY | 2024-11-19 10:27 | XMS_ITS | Encounter Summary ---
Author Organization [facility] Address [address] [place] [address] Care Team Providers Care Dehydrogenation Operator Head Name Role Phone Yudy Joya Primary Care Provider [phone] Blanca Cast NP Unavailable [phone] López Mariano MD Unavailable [phone] Reason for Visit * Reason Onset Date Comments Transplant 10/13/2024 Encounter Details Date Type Department Care Team ([facility] Contact Info) Description 10/13/2024 Telephone [facility] [address] [place] [address] Orly Burrell RN Transplant Social History Tobacco Use Types Packs/Day Years Used Date Smoking Tobacco: Every Day Cigarettes Passive Smoke Exposure: Never Smokeless Tobacco: Never Alcohol Use Standard Drinks/Week Comments Yes 0 (1 standard drink = 0.6 oz pur e alcohol) 1 beer /day Comments Unknown Sex and Gender Information Value Date Recorded Sex Assigned at Female 06/19/2024 10:51 AM CLEANER INDUSTRIAL Legal Sex Female 4:57 AM CLEANER INDUSTRIAL Gender Identity Female 06/19/2024 10:51 AM CLEANER INDUSTRIAL Sexual Orientation Choose not to disclose 2024 10:51 AM CLEANER INDUSTRIAL documented as of this encounter Miscellaneous Notes * Telephone Encounter - Orly Burrell RN - 10/13/2024 3:02 PM CDT Called pt to introduce myself as [facility] coordinator and encouraged pt to stay up on health maintenance and to let us know if insurance changes, contact info updates. Explained [facility] protocol for pt's statusand when follow up is needed. Placed order for cards as she is due in 12/2024. Will follow up after.Gave pt direct information and encouraged to reach out with any questions/concerns. documented in this encounter Plan of Treatment Upcoming Encounters Date Type Department Care Team (Late st Contact Info) Description 02/07/2025 3:30 PM CDT Virtual Visit [facility] [address] [place] [address] Domingo Ashby, PIGMENT WEIGHER SYSTEMS INTEGRATION MANAGER [address] [place], [place] 148[address] Lacey Thompson, PIGMENT WEIGHER SYSTEMS INTEGRATION MANAGER [address] [place], [place] 615685 documented as of this encounter Visit Diagnoses Diagnosis ESRD (end stage renal disease) (H)- Primary End stage renal disease Organ transplant candidate Awaiting organ transplant status Pre-operative cardiovascular examination documented in this encounter Care Teams Dehydrogenation Operator Head Relationship Specialty Start Date End Date Yudy Joya PA [address] [place] [address] PCP - General Family Practice 06/19/24 Blanca Cast NP [address] [place] [address] 754195 Assigned Surgical Provider 08/09/24 López Mariano MD [address] [place] [phone] Nephrology 10/02/24 documented as of this encounter
--- OUTSIDE RECORDS SUMMARY | 2024-11-19 10:27 | XMS_ITS | Encounter Summary ---
Author Organization [facility] Address [address] [place] [address] Care Team Providers Care Platform Operations Director Name Role Phone Yudy Joya Primary Care Provider [phone] Blanca Cast FLOOR COVERING LAYER Unavailable [phone] López Mariano MD Unavailable Lacey Thompson WATER TENDER KEYSEATER OPERATOR Unavailable + [phone] Domingo Ashby WATER TENDER KEYSEATER OPERATOR Unavailable [phone] Encounter Details Date Type Department Care Team (Late st Contact Info) Description 08/29/2024 Team Conference [facility] [address] [place] [address] Alie Waters RN Social History Tobacco Use Types Packs/Day Years Used Date Smoking Tobacco: Every Day Cigarettes Passive Smoke Exposure: Never Smokeless Tobacco: Never Alcohol Use Standard Drinks/Week Comments Yes 0 (1 standard drink = 0.6 oz pur e alcohol) 1 beer /day Comments Unknown Sex and Gender Information Value Date Recorded Sex Assigned at Female 06/19/2024 10:51 AM FIREWORKS INSPECTOR Legal Sex Female 4:57 AM FIREWORKS INSPECTOR Gender Identity Female 06/19/2024 10:51 AM FIREWORKS INSPECTOR Sexual Orientation Choose not to disclose 2024 10:51 AM FIREWORKS INSPECTOR documented as of this encounter Miscellaneous Notes * Telephone Encounter - Alie Waters RN - 08/29/2024 4:26 PM CDT Image Review Meeting ATTENDEES: Dr. Sharp IMAGES REVIEWED: Ab/Pelv CT 08/24/24 and iliac US 08/24/24 DECISION: Vessels suitable for transplant INCIDENTALS: Yes: Apparent 6 mm polypoid focus arising from the sigmoid colon. Alternatively this may represent some adherent stool. Consider colonoscopy if not recently performed. - pt will need to update colonoscopy Pt will need to quit smoking as a condition of participation in our program. documented in this encounter Plan of Treatment Upcoming Encounters Date Type Department Care Team (Late st Contact Info) Description 02/07/2025 3:30 PM CDT Virtual Visit [facility] [address] [place] [address] Domingo Ashby APRN KEYSEATER OPERATOR [address] [place] [address] Lacey Thompson APRN KEYSEATER OPERATOR [address] [place], [place] [phone] documented as of this encounter Visit Diagnoses Not on filedocumented in this encounter Care Teams Platform Operations Director Relationship Specialty Start Date End Date Yudy Joya PA [address] [place] [address] PCP - General Family Practice 06/19/24 Blanca Cast NP [address] [place] [address] [id number] Assigned Surgical Provider 08/09/24 López Mariano MD [address] [place] [phone] Nephrology 10/02/24 Lacey Thompson APRN KEYSEATER OPERATOR [address] [place], [place] [phone] Nurse Practitioner Cardiovascular Disease 10/18/24 Domingo Ashby APRN KEYSEATER OPERATOR [address] [place] [address] Nurse Practitioner Nephrology 10/18/24 documented as of this encounter
--- OUTSIDE RECORDS SUMMARY | 2024-11-19 10:27 | XMS_ITS | Encounter Summary ---
Author Organization [facility] Address [address] [place] [address] Care Team Providers Care Roustabout Head Name Role Phone Yudy Joya Primary Care Provider [phone] Encounter Details Date Type Department Care Team (Late st Contact Info) Description 10/11/2024 Orders Only [facility] [address] [facility] [address] [place] [phone] López Mariano MD [address] [place] [address] Social History Tobacco Use Types [...] Priority Date/Time Associated Diagnosis Comments HEMATOLOGY Routine 10/11/2024 documented in this encounter Results * (ABNORMAL) HEMATOLOGY (10/11/2024) Hemoglobin 10.2(L) 12.0 - 16.0 g/dL [facility] Hemoglobin x 3 30.6(L) 36.0 - 48.0 % [facility] 10/11/2024 10/12/2024 12: 20 PM CDT Narrative [facility] - 10/12/2024 Unless otherwise specified, test(s) performed at: [facility], [address] [place] [address], [place] [address] CERAMIC PAINTER: John Hernandez M.D., Ph.D For any questions, please call customer service at FREQUENCY:OTHER Resulting Agency Comment Specimen source: Blood us López Mariano MD LAB BLOOD ORDERABLES Final Re sult [facility] See order comments or contact performing lab Unknown, [place] documented in this encounter Visit Diagnoses Not on filedocumented in this encounter Care Teams Roustabout Head Relationship Specialty Start Date End Date Yudy Joya PA [address] [place] [address] PCP - General Family Medicine 06/01/24 documented as of this encounter
--- OUTSIDE RECORDS SUMMARY | 2024-11-19 10:27 | XMS_ITS | Encounter Summary ---
Author Organization [place] Address [facility] [place] [address] Care Team Providers Care Mustanger Name Role Phone Yudy Joya Primary Care Provider [phone] Blanca Cast NP Unavailable [phone] López Mariano MD Unavailable [phone] Encounter Details Date Type Department Care Team (Late st Contact Info) Description 10/05/[address] [facility] [address] [place] [address] Alie Waters RN Social History Tobacco Use Types Packs/Day Years Used Date Smoking Tobacco: Every Day Cigarettes Passive Smoke Exposure: Never Smokeless Tobacco: Never Alcohol Use Standard Drinks/Week Comments Yes 0 (1 standard drink = 0.6 oz pur e alcohol) 1 beer /day Comments Unknown Sex and Gender Information Value Date Recorded Sex Assigned at Female 06/19/2024 10:51 AM SLIP OPERATOR Legal Sex Female 4:57 AM SLIP OPERATOR Gender Identity Female 06/19/2024 10:51 AM SLIP OPERATOR Sexual Orientation Choose not to disclose 2024 10:51 AM SLIP OPERATOR documented as of this encounter Miscellaneous Notes * Telephone Encounter - Alie Waters RN - 10/05/2024 9:46 AM CDT Called pt to let her know she has been approved by the Committee for active listing and that we arejust waiting on insurance approval. She has not yet completed the watching the videos but plans to do that within the next few days. We will touch base early next week. She had no further questions. documented in this encounter Plan of Treatment Upcoming Encounters Date Type Department Care Team (Late st Contact Info) Description 02/07/2025 3:30 PM CDT Virtual Visit [facility] [address] [place] [phone] Domingo Ashby, SUPERVISOR GRINDING FLASH DRIER OPERATOR [address] [place] [address] Lacey Thompson, SUPERVISOR GRINDING FLASH DRIER OPERATOR [address] [place] [address] documented as of this encounter Visit Diagnoses Not on filedocumented in this encounter Care Teams Mustanger Relationship Specialty Start Date End Date Yudy Joya PA [address] [place] [address] PCP - General Family Practice 06/19/24 Blanca Cast NP [address] [place] [address] Assigned Surgical Provider 08/09/24 López Mariano MD [address] [place] [phone] Nephrology 10/02/24 documented as of this encounter
--- OUTSIDE RECORDS SUMMARY | 2024-11-19 10:27 | XMS_ITS | Encounter Summary ---
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
--- OUTSIDE RECORDS SUMMARY | 2024-11-19 10:27 | XMS_ITS | Encounter Summary ---
Author Organization [facility] Address [address] [place] [address] Care Team Providers Care Tankroom Tender Name Role Phone Yudy Joya Primary Care Provider [phone] Encounter Details Date Type Department Care Team (Late st Contact Info) Description 10/18/2024 Orders Only [facility] [address] [facility] [address] [place] [phone] López Mariano MD [address] [place] [address] Social History Tobacco Use Types [...] Procedure Name Priority Date/Time Associated Diagnosis Comments IMMUNO CHEMISTRY Routine 10/18/2024 HEMATOLOGY Routine 10/18/2024 CHEMISTRY Routine 10/18/2024 documented in this encounter Results * IMMUNO CHEMISTRY (10/18/2024) Hep B Surface Ag Negative Negative [facility] Hepatitis C Antibody Nonreactive Nonreactive [facility] Comment: No HCV antibody detected. The above test result was obtained using [employer] IM chemiluminescent method. Results obtained with different assay methods or kits cannot be used interchangeably. S/CO Ratio <0.02 0.00 - 0.79 [facility] Comment: s/co ratio Interpretation Supplemental testing <0.80 Nonreactive No further testing required. 0.80-0.99 Equivocal HCV RNA Quantitative Real-Time PCR is recommended. 1.00->11.00 Reactive HCV RNA Quantitative Real-Time PCR is recommended to distinguish active from resolved cases. 10/18/2024 10/19/2024 1:2 3 PM CDT Narrative [facility] - 10/19/2024 Unless otherwise specified, test(s) performed at: [facility], [address] [place] [address], [place] [address] DAIRY FROZEN MANAGER: John Hernandez M.D., Ph.D For any questions, please call customer service at FREQUENCY:MONTHLY Resulting Agency Comment Specimen source: Plasma us López Mariano MD LAB BLOOD ORDERABLES Final Re sult [facility] See order comments or contact performing lab Unknown, [place] * (ABNORMAL) [facility] Chemistry (10/18/2024) BUN 46(H) 6 - 19 mg/dL [facility] Creatinine 8.68(H) 0.60 - 1.30 mg/dL [facility] BUN/Creatinine Ratio 5.3(L) 10.0 - 20.0 [facility] Total Protein 6.7 6.0 - 8.5 g/dL [facility] Albumin 4.2 3.5 - 5.2 g/dL [facility] Globulin, Total 2.5 2.0 - 4.0 g/dL [facility] A/G Ratio 1.7 1.0 - 2.0 [facility] 10/18/2024 10/19/2024 1:0 0 PM CDT Narrative [facility] - 10/19/2024 Unless otherwise specified, test(s) performed at: [facility], [address] [place] [address], [place] [address] DAIRY FROZEN MANAGER: John Hernandez M.D., Ph.D For any questions, please call customer service at FREQUENCY:MONTHLY Resulting Agency Comment Specimen source: Serum López Mariano MD LAB BLOOD ORDERABLES Final Re sult [facility] See order comments or contact performing lab Unknown, [place] * (ABNORMAL) HEMATOLOGY (10/18/2024) Neutrophils 74.5 40.0 - 75.0 % [facility] Lymphocytes Relative 15.0(L) 19.0 - 48.0 % [facility] Monocytes 4.9 3.0 - 10.0 % [facility] Eosinophils Relative 2.6 0.0 - 7.0 % [facility] Basophils Relative 1.2 0.0 - 1.5 % [facility] JESSICA 1.7 0.0 - 4.0 % [facility] WBC 5.43 4.80 - 10.80 1000/mcL [facility] RBC 3.16(L) 4.20 - 5.40 mill/mcL [facility] Hematocrit 31.5(L) 37.0 - 47.0 % [facility] MCV 100 80 - 100 fl [facility] MCH 33.2(H) 27.0 - 31.0 pg [facility] MCHC 33.4 30.0 - 36.0 g/dL [facility] RDW 13.4 11.5 - 14.5 % [facility] Hemoglobin 10.5(L) 12.0 - 16.0 g/dL [facility] Hemoglobin x 3 31.5(L) 36.0 - 48.0 % [facility] Platelets 162 130 - 400 1000/mcL [facility] 10/18/2024 10/19/2024 9:0 1 AM CDT Narrative [facility] - 10/19/2024 Unless otherwise specified, test(s) performed at: [facility], [address] [place] [address], [place] [address] DAIRY FROZEN MANAGER: John Hernandez M.D., Ph.D For any questions, please call customer service at FREQUENCY:MONTHLY Resulting Agency Comment Specimen source: Blood López Mariano MD LAB BLOOD ORDERABLES Final Re sult [facility] See order comments or contact performing lab Unknown, [place] documented in this encounter Visit Diagnoses Not on filedocumented in this encounter Care Teams Tankroom Tender Relationship Specialty Start Date End Date Yudy Joya PA [address] [place] [address] PCP - General Family Medicine 06/01/24 documented as of this encounter
--- OUTSIDE RECORDS SUMMARY | 2024-11-19 10:27 | XMS_ITS | Encounter Summary ---
Author Organization [facility] Address [address] [place] [address] Care Team Providers Care Brimming Machine Operator Name Role Phone Yudy Joya Primary Care Provider [phone] Encounter Details Date Type Department Care Team (Late st Contact Info) Description 11/15/2024 Orders Only [facility] [place] [address] [facility] [address] [place] [phone] López Mariano MD [address] [place] [address] Social History Tobacco Use Types [...] Priority Date/Time Associated Diagnosis Comments HEMATOLOGY Routine 11/15/2024 documented in this encounter Results * (ABNORMAL) HEMATOLOGY (11/15/2024) Hemoglobin 10.0(L) 12.0 - 16.0 g/dL [facility] Hemoglobin x 3 30.0(L) 36.0 - 48.0 % [facility] 11/15/2024 11/16/2024 7:0 1 AM CDT Narrative [facility] - 11/16/2024 Unless otherwise specified, test(s) performed at: [facility], [address] [place] [address], [place] [address] CREATIVE DEVELOPER: John Hernandez M.D., Ph.D For any questions, please call customer service at FREQUENCY:OTHER Resulting Agency Comment Specimen source: Blood us López Mariano MD LAB BLOOD ORDERABLES Final Re sult [facility] See order comments or contact performing lab Unknown, [place] documented in this encounter Visit Diagnoses Not on filedocumented in this encounter Care Teams Brimming Machine Operator Relationship Specialty Start Date End Date Yudy Joya PA [address] [place] [address] PCP - General Family Medicine 06/01/24 documented as of this encounter
--- OUTSIDE RECORDS SUMMARY | 2024-11-19 10:27 | XMS_ITS | Encounter Summary ---
Author Organization [facility] Address [address] [place] [address] Care Team Providers Care Scenario Writer Name Role Phone Yudy Joya Primary Care Provider [phone] Blanca Cast WRAPPER AND PRESERVER Unavailable [phone] López Mariano MD Unavailable [phone] Lacey Thompson PLASTIC SEWER FIELD CROP TECHNICAL OFFICER Unavailable + [phone] Domingo Ashby PLASTIC SEWER FIELD CROP TECHNICAL OFFICER Unavailable Encounter Details Date Type Department Care Team (Late st Contact Info) Description 09/28/2024 External Order Results [facility] [address] [place] [address] Outside, Provider Social History Tobacco Use Types Packs/Day Years Used Date Smoking Tobacco: Every Day Cigarettes Passive Smoke Exposure: Never Smokeless Tobacco: Never Alcohol Use Standard Drinks/Week Comments Yes 0 (1 standard drink = 0.6 oz pur e alcohol) 1 beer /day Comments Unknown Sex and Gender Information Value Date Recorded Sex Assigned at Female 06/19/2024 10:51 AM VETERINARY TECHNOLOGIST Legal Sex Female 4:57 AM VETERINARY TECHNOLOGIST Gender Identity Female 06/19/2024 10:51 AM VETERINARY TECHNOLOGIST Sexual Orientation Choose not to disclose 2024 10:51 AM VETERINARY TECHNOLOGIST documented as of this encounter Plan of Treatment Upcoming Encounters Date Type Department Care Team (Late st Contact Info) Description 02/07/2025 3:30 PM CDT Virtual Visit [facility] [address] [place] [address] Domingo Ashby, PLASTIC SEWER FIELD CROP TECHNICAL OFFICER [address] [place] [address] Lacey Thompson APRN FIELD CROP TECHNICAL OFFICER [address] [place] [address] documented as of this encounter Procedures Procedure Name Priority Date/Time Associated Diagnosis Comments POTASSIUM Routine 09/28/2024 8:54 AM CDT documented in this encounter Results * Potassium (09/28/2024 8:54 AM CDT) Potassium (External) 4.9 3.5 - 5.2 mmol/L NON-INTERFACED (ONBASE SCANS) Blood BLOOD SPECIMEN / Unknown 09/28/2024 8:54 AM CDT Narrative REG PFT - 10/03/2024 3:48 PM CDT Verified by Liza Payne on 10/03/2024. us Provider Outside LAB - BLOOD ORDERABLES Edited R esult - Final REG PFIsabela NON-INTERFACED (ONBASE SCANS) documented in this encounter Visit Diagnoses Not on filedocumented in this encounter Care Teams Scenario Writer Relationship Specialty Start Date End Date Yudy Joya PA [address] [place] [address] PCP - General Family Practice 06/19/24 Blanca Cast NP [address] [place] [address] Assigned Surgical Provider 08/09/24 López Mariano MD [address] [place] [phone] Nephrology 10/02/24 Lacey Thompson APRN FIELD CROP TECHNICAL OFFICER [address] [place] [address]64335 Nurse Practitioner Cardiovascular Disease 10/18/24 Domingo Ashby APRN FIELD CROP TECHNICAL OFFICER [address] [place] [place] [phone] Nurse Practitioner Nephrology 10/18/24 documented as of this encounter
--- OUTSIDE RECORDS SUMMARY | 2024-11-19 10:27 | XMS_ITS | Encounter Summary ---
Author Organization [place] Address [address] [place] [address] Care Team Providers Care Radiation Officer Name Role Phone Yudy Joya Primary Care Provider [phone] Blanca Cast ENVELOPE MAKER Unavailable [phone] López Mariano MD Unavailable [phone] Lacey Thompson SHEAR TENDER [employer] Unavailable + [phone] Domingo Ashby APRN [employer] Unavailable Encounter Details Date Type Department Care Team (Late st Contact Info) Description 10/31/2024 Orders Only [facility] [address] [place] [address] Outside, Provider Social History Tobacco Use Types Packs/Day Years Used Date Smoking Tobacco: Every Day Cigarettes Passive Smoke Exposure: Never Smokeless Tobacco: Never Alcohol Use Standard Drinks/Week Comments Yes 0 (1 standard drink = 0.6 oz pur e alcohol) 1 beer /day Comments Unknown Sex and Gender Information Value Date Recorded Sex Assigned at Female 06/19/2024 10:51 AM DIRECTOR IT PROJECT Legal Sex Female 4:57 AM DIRECTOR IT PROJECT Gender Identity Female 06/19/2024 10:51 AM DIRECTOR IT PROJECT Sexual Orientation Choose not to disclose 2024 10:51 AM DIRECTOR IT PROJECT documented as of this encounter Plan of Treatment Upcoming Encounters Date Type Department Care Team (Late st Contact Info) Description 02/07/2025 3:30 PM CDT Virtual Visit [facility] [address] [place] [address] Domingo Ashby APRN [employer] [address] [place] [address] Lacey Thompson APRN [employer] [address] [place] [address] documented as of this encounter Procedures Procedure Name Priority Date/Time Associated Diagnosis Comments HLA RESULT REPORT 10/31/2024 4:39 PM CDT documented in this encounter Results * HLA Result Report (10/31/2024 4:39 PM CDT) us Provider Outside LAB - IMMUNOLOGY ORDERABLES Fin al Result documented in this encounter Visit Diagnoses Not on filedocumented in this encounter Care Teams Radiation Officer Relationship Specialty Start Date End Date Yudy Joya PA [address] [place] [address] PCP - General Family Practice 06/19/24 Blanca Cast, CAMILA [address] [place] [phone] Assigned Surgical Provider 08/09/24 López Mariano MD [address] [place] [phone] Nephrology 10/02/24 Lacey Thompson APRN [employer] [address] [place], [place] 8[address] Nurse Practitioner Cardiovascular Disease 10/18/24 Domingo Ashby APRN [employer] [address] [place] [address] Nurse Practitioner Nephrology 10/18/24 documented as of this encounter
--- OUTSIDE RECORDS SUMMARY | 2024-11-19 10:27 | XMS_ITS | Encounter Summary ---
Author Organization [facility] Address [address] [place] [address] Care Team Providers Care Wine Blender Name Role Phone Haylee Alanis APRN, CNP Primary Care Provide r Encounter Details Date Type Department Care Team (Late st Contact Info) Description 08/23/2013 Outside Hospital External to External, [place] [address] HISTORY PHYSICAL Social History Tobacco Use Types [...] on filedocumented in this encounter Care Teams Wine Blender Relationship Specialty Start Date End Date Haylee Alanis APRN, CNP [address] [place] [address] PCP - General Nurse Practitioner 02/04/16 documented as of this encounter
--- OUTSIDE RECORDS SUMMARY | 2024-11-19 10:27 | XMS_ITS | Encounter Summary ---
Author Organization [place] Address [facility] [place] [address] Care Team Providers Care Impression Printer Name Role Phone Yudy Joya Primary Care Provider [phone] Blanca Cast CARE MANAGEMENT COORDINATOR Unavailable [phone] López Mariano MD Unavailable [phone] Encounter Details Date Type Department Care Team (Late st Contact Info) Description 10/12/2024 Telephone [facility] [address] [place] [address] Alie Waters RN Social History Tobacco Use Types Packs/Day Years Used Date Smoking Tobacco: Every Day Cigarettes Passive Smoke Exposure: Never Smokeless Tobacco: Never Alcohol Use Standard Drinks/Week Comments Yes 0 (1 standard drink = 0.6 oz pur e alcohol) 1 beer /day Comments Unknown Sex and Gender Information Value Date Recorded Sex Assigned at Female 06/19/2024 10:51 AM PERSONNEL SPECIALIST Legal Sex Female 4:57 AM PERSONNEL SPECIALIST Gender Identity Female 06/19/2024 10:51 AM PERSONNEL SPECIALIST Sexual Orientation Choose not to disclose 2024 10:51 AM PERSONNEL SPECIALIST documented as of this encounter Miscellaneous Notes * Telephone Encounter - Alie Waters RN - 10/12/2024 12:19 PM CDT Pt has completed the pt education series online - we reviewed that information together (see separate encounter). All questions were answered. Called patient to inform them of status change to ACTIVE on the Kidney [facility] list today 10/13/24. Status change letter and PRA orders to be mailed. Patient is in agreement with listing ACTIVE status. Discussed: - Pt is eligible for donor offers and pt can receive calls 24 hours a day, 7 days a week, and employee relation manager staff need to be able to reach pt or one of emergency contacts within 30 minutes or theymight skip over to next recipient on list. -Please make sure your phone is charged at all times and your voicemail is not full -Your transplant employee relation manager coordinator will give you directions about when and where you will need tocome to the hospital for transplant -The medical records coordinator will call you to discuss your current health status, the offer, and plans to move forward. Some organ offer calls will require you to come to the hospital immediately; some may not be as time sensitive. It may be possible for you to come to the hospital and, for various reasons, the transplant could be cancelled. This is often called a ???dry run?? . - Reviewed the right to accept or decline offer, without penalty - Expected length of surgical procedure is about 4-6 hours, expected inpatient length of stay post transplant is 3-4 days, and potential to stay locally post transplant. Offered resources for lodgingin the area - Verified contact information as documented in [employer]. Confirmed emergency contact information -Instructed patient about importance of having PRAs drawn every 3 months via: (Mail[facility]). Encouraged them to set reminder in their preferred calendar to stay on top of their quarterly labs -Reminded pt to stay up on health maintenance and to call with any updates on their health status, insurance or contact information. -Reminded pt to contact coordinator prior to receiving any blood transfusions as it may change PRA level and make it more difficult to match potential donors -Donor website was provided -Last PRA was 0 on 07/27/24. -Provided name and contact information for additional questions or concerns. Pt expressed excellentunderstanding of all and was in good agreement with the plan. Hepatitis C Donor Acceptance -Called pt in regards to the possibility of accepting a or living donor kidney that has known Hepatitis C infection (past or current). Informed pt due to shortage of organs, the transplant team is always looking for safe alternatives to increase chances of transplant. One means of increasing chance of transplant is to accept an organ that may have been exposed to hepatitis C. Even if theorgan accepted has preliminary evidence of hepatitis C infection, there is a possibility that pt may not contract hepatitis C from it. If hepatitis C is contracted, it is treatable. -Reviewed that Hepatitis C (HCV) is an infection caused by the Hepatitis C virus. Hepatitis C may be spread from one person to another through contact with the blood of an infected person. This viruscan attack the liver and cause injury. If not treated, this virus can lead to liver injury. -Reviewed that all donor offer organs are checked for hepatitis C infection. A small number of organs test clearly positive for active hepatitis C infection (Approximately 5% nationally of donors). A few organs have testing that can indicate the donor may have been infected with hepatitis C but it is not clear whether the organ is currently infected with the virus or may have been infected in the past. -If the donor has been exposed to hepatitis C but DOES NOT have active virus in the bloodstream, itis very unlikely that pt will develop hepatitis C infection. If the donor DOES have active virus inthe bloodstream, there is a very high likelihood (almost 100%) that hep C will develop. Regardless,pt will be monitored closely by your post transplant team for any signs of Hepatitis C infection and treated appropriately. -Reviewed there are several medications available to treat hepatitis C, and the treatments are moreeffective and have fewer side effects than previous treatment options. These medications are taken by mouth daily for 4 to 24 weeks. When taken as prescribed, these medications have cure rates of 90%to 100% based on currently available data from large studies. They are safe to take after transplant. -Reviewed that if pt chooses not to accept a hepatitis C exposed donor, it will not affect their status on the transplant list. Donor organs that are hepatitis C-exposed will not be offered to you. We will continue to consider non-hepatitis C -exposed donor offers for you. Pt care will not be negatively affected in any way. -Answered patient questions regarding Hep C donor acceptance -Pt declines to be listed for Hep C positive donors . Pt has declined, will make sure UNOS and EPICchart reflect this option Sent pt Wait Time Transfer Form to transfer her waiting time w/ [facility] to our listing. Will submit to UNOS once signed. Active Listing letter sent. Hand off to [facility]. documented in this encounter Plan of Treatment Upcoming Encounters Date Type Department Care Team (Late st Contact Info) Description 02/07/2025 3:30 PM CDT Virtual Visit [facility] [address] [place] [phone] Domingo Ashby, [employer] MEDICAL SOCIAL CONSULTANT [address] [place] [address] Lacey Thompson, MEAT GRINDER MEDICAL SOCIAL CONSULTANT [address] [place] [address] documented as of this encounter Visit Diagnoses Not on filedocumented in this encounter Care Teams Impression Printer Relationship Specialty Start Date End Date Yudy Joya PA [address] [place] [address] PCP - General Family Practice 06/19/24 Blanca Cast NP [address] [place] [address] Assigned Surgical Provider 08/09/24 López Mariano MD [address] [place] [address] Nephrology 10/02/24 documented as of this encounter
--- OUTSIDE RECORDS SUMMARY | 2024-11-19 10:27 | XMS_ITS | Clinical Summary ---
Author Organization [facility] Address [address] [place] [address] Care Team Providers Care Sueding Machine Operator Name Role Phone Yudy Joya Primary Care Provider [phone] Blanca Cast CONCESSION MANAGER Unavailable [phone] López Mariano MD Unavailable Lacey Thomspon FAN BLADE TRUER CLIENT ARCHITECT Unavailable [phone] Domingo Ashby FAN BLADE TRUER CLIENT ARCHITECT Unavailable Allergies Active Allergy Reactions Criticality Noted Date Comments Methoxy Polyethylene Glycol-Epoetin Beta Other (See Comments),Nausea and Vomiting 10/18/2023 Occurred during dialysis. Neomycin Rash High 08/07/2002 topical sensitization Penicillins Hives,Rash High 08/06/2000 Povidone-Iodine Medium 08/31/2023 Other Reaction(s): Flushing Medications acetaminophen (TYLENOL) 500 MG tablet Take 500-1,000 mg by mouth. Active atorvastatin (LIPITOR) 40 MG tablet Take 1 tablet by mouth daily. 10/04/2018 Active vitamin (B COMPLEX) capsule Take 1 capsule by mouth daily. Active buPROPion (WELLBUTRIN XL) 150 MG 24 hr tablet Take 150 mg by mouth. 11/16/2023 Active carvedilol (COREG) 6.25 MG tablet Take by mouth. 12/28/2023 Active citalopram (CELEXA) 20 MG tablet Take 20 mg by mouth at bedtime. 05/28/2024 Active Esomeprazole Magnesium 40 MG PACK Take 20 mg by mouth. Active isosorbide mononitrate (IMDUR) 30 MG 24 hr tablet Take 30 mg by mouth daily. Active loratadine (CLARITIN) 10 MG tablet Take 10 mg by mouth. 07/26/2010 Active nitroGLYcerin (NITROSTAT) 0.[address] 1 tablet under the tongue. 12/28/2023 Active pramipexole (MIRAPEX) 0.25 MG tablet Take 3 tablets by mouth. 02/03/2023 Active sevelamer carbonate (RENVELA) 800 MG tablet 4 tablets. 02/02/2023 07/22/19 Active torsemide (DEMADEX) 20 MG tablet Take 40 mg by mouth every 12 hours. 02/04/2019 Active traMADol (ULTRAM) 50 MG tablet Take 25 mg by mouth. 03/28/2024 Active traZODone (DESYREL) 50 MG tablet Take 50 mg by mouth. 11/16/2023 Active Active Problems Problem Noted Date Diagnosed Date Adenomatous polyp of colon 10/06/2024 ESRD (end stage renal disease) on dialysis 07/27 Polycystic kidney disease 07/27/2024 Encounters Date Type Department Care Team Description 10/31/2024 Orders Only [facility] [address] [place] [address] Outside, Provider 10/25/2024 MyC Medical Advice [facility] [address] [place] [phone] Reena Medina LPN 10/24/2024 6:45 PM CDT Lab [facility] [address] [place] [phone] ESRD (end stage renal disease) (H); Organ transplant candidate 10/16/2024 Telephone [facility] [address] [place] [phone] Orly Burrell, ANGELIKA Appointment ([place] Visit) 10/13/2024 Telephone [facility] [address] [place] [phone] Orly Burrell RN Transplant 10/13/2024 Orders Only [facility] [address] [place] [phone] Reena Medina LPN ESRD (end stage renal disease) (H) (Primary Dx); Organ transplant candidate 10/13/2024 Documentation Only [facility] [address] [place] [phone] Reena Medina LPN 10/12/2024 Documentation Only [facility] [address] [place] [phone] Alie Waters, ANGELIKA 10/12/2024 Telephone [facility] [address] [place] [phone] Alie Waters, RN 10/10/2024 Telephone [facility] [address] [place] [address] [phone] Alie Waters, RN 10/05/2024 Telephone [facility] [address] [place] [phone] Alei Waters, ANGELIKA 10/02/2024 Documentation Only [facility] [address] [place] [address] [phone] Alie Waters, ANGELIKA 09/29/2024 MyC Medical Advice Initial Department Alie Waters, ANGELIKA 09/29/2024 Telephone [facility] [address] [place] [phone] Alie Waters, RN 09/28/2024 External Order Results [facility] [address] [place] [phone] Outside, Provider 09/14/2024 Telephone [facility] [address] [place] [phone] Alie Waters, RN Appointment 09/04/2024 Telephone [facility] [address] [place] [address] [phone] Alie Waters, RN appts 08/30/2024 Telephone [facility] [address] [place] [address] [phone] Alie Waters RN 08/29/2024 Team Conference [facility] [address] [place] [phone] Alie Waters RN 08/24/2024 7:30 AM CDT Ancillary Procedure [address] [place] [phone] Domingo Ashby APRN CNP Pre-transplant evaluation for kidney transplant; Cardiovascular disease; End stage renal disease (H); History of asthma; Organ transplant candidate; Essential hypertension 08/24/2024 7:00 AM CDT Ancillary Procedure [facility] [address] [phone] Domingo Ashby APRN CNP Pre-transplant evaluation for kidney transplant; Cardiovascular disease; End stage renal disease (H); History of asthma; Organ transplant candidate; Essential hypertension 08/24/2024 6:00 AM CDT Orders Only [facility] Pulmonary Function Testing [address] [place] [phone] Domingo Ashby APRN CNP Pre-transplant evaluation for kidney transplant; Cardiovascular disease; End stage renal disease (H); History of asthma; Organ transplant candidate; Essential hypertension 08/24/2024 Results Follow-Up [facility] [address] [place] [phone] Domingo Ashby APRN CNP 08/24/2024 Travel from Last 3 Months Family History Medical History Relation Comments Breast Cancer Father Polycystic Kidney Diease Father 40 Polycystic Kidney Diease Maternal Grandmother Breast Cancer Mother 44 Uterine Cancer Sister Relation Status Comments Brother Alive Father Maternal Grandmother Mother Sister Alive Social History Tobacco Use Types Packs/Day Years Used Date Smoking Tobacco: Every Day Cigarettes Passive Smoke Exposure: Never Smokeless Tobacco: Never Tobacco Cessation:Ready to Q uit: Yes; Counseling Given: Not Answered Alcohol Use Standard Drinks/Week Comments Yes 0 (1 standard drink = 0.6 oz pur e alcohol) 1 beer /day Comments Unknown Sex and Gender Information Value Date Recorded Sex Assigned at Female 06/19/2024 10:51 AM ADDICTION SOCIAL WORKER Legal Sex Female 4:57 AM ADDICTION SOCIAL WORKER Gender Identity Female 06/19/2024 10:51 AM ADDICTION SOCIAL WORKER Sexual Orientation Choose not to disclose 2024 10:51 AM ADDICTION SOCIAL WORKER Last Filed Vital Signs Vital Sign Reading Time Taken Comments Blood Pressure 103/63 07/27/2024 7:49 AM CDT Pulse 53 07/27/2024 7:49 AM CDT Temperature - - Respiratory Rate - - Oxygen Saturation 98% 07/27/2024 7:49 AM CDT Inhaled Oxygen Concentration - - Weight 97.2 kg (214 lb 3.2 oz) 07/27/2024 7:49 A M CDT Height 170.2 cm (5' 7) 07/27/2024 7:49 AM CDT Body Mass Index 33.55 07/27/2024 7:49 AM CDT Plan of Treatment Upcoming Encounters Date Type Department Care Team (Late st Contact Info) Description 02/07/2025 3:30 PM CDT Virtual Visit [facility] [address] [place] [phone] Domingo Ashby, FAN BLADE TRUER CLIENT ARCHITECT [address] [place] [phone] Lacey Thompson, FAN BLADE TRUER CLIENT ARCHITECT [address] [place] [address] Health Maintenance Due Date Last Done Comments ADVANCE CARE PLANNING 1965 ANNUAL REVIEW OF HM ORDERS 1964 CT COLONOGRAPHY 1964 FIT 1964 FLEX SIG 1964 LIPID 1964 NICOTINE/TOBACCO CESSATION COUNSELING Q 1 YR 1964 PARATHYROID 1964 PHOSPHORUS 1964 sDNA (Cologuard) 1964 LUNG CANCER SCREENING 2014 ZOSTER VACCINE (1 of 2) 2014 HEPATITIS B VACCINE (5 of 5 - Risk Dialysis Recombivax 3-dose series) 08/22/2020 08/23/2019, 04/25/2019, 03/25/2019, Additional history exists PAP 11/29/2023 11/28/2020, 11/17, 03/14/2012 COVID-19 VACCINE ( season) 2023 03/12/2023, 01/26/2022, 09/16/2021, Additional history exists RSV VACCINE (1 - Risk 60-74 years 1-dose series) 2024 PHQ-2 (once per calendar year) 2024 BMP 10/26/2024 07/27/2024 YEARLY PREVENTIVE VISIT 11/15/2024 11/16/19 24, 09/03/2022, 11/28/2020, Additional history exists INFLUENZA VACCINE (#1) 2024 , 01/27/2023, 01/23/2022, Additional history exists HEMOGLOBIN 01/26/2025 07/27/2024 MAMMO SCREENING 07/20/2026 07/20/2024, 04/0 06/2024, 06/29/2023, Additional history exists DIABETES SCREENING 07/28/2027 07/27/2024 COLONOSCOPY 09/28/2029 09/28/2024, 09/17, 08/29/2018 COLORECTAL CANCER SCREENING 09/28/2029 DTAP/TDAP/TD VACCINE (4 - Td or Tdap) 11/28/2030 11/28/2020, 05/18/2011, 2006, Additional history exists PNEUMOCOCCAL VACCINE 50+ YEARS Completed 02/02/2024, 08/21/2020, 02/04/2016 ALK PHOS Completed 07/27/2024 HEPATITIS C SCREENING Completed 07/27/2024 , 10/18/2020, 10/03/2018, Additional history exists HIV SCREENING Completed 07/27/2024, 05/2020, 10/03/2018 HPV VACCINE (No Doses Required) Completed MENINGITIS VACCINE Aged Out No longer eligible based on patient's age to complete this topic Procedures Procedure Name Priority Date/Time Associated Diagnosis Comments HLA RESULT REPORT 10/31/2024 4:3 9 PM CDT PRA SINGLE ANTIGEN IGG ANTIBODY Routine 10/24/2024 [...] stage renal disease) (H) Organ transplant candidate POTASSIUM Routine 09/28/2024 8:54 AM CDT LAB RESULT - HIM SCAN 09/28/2024 12:00 AM CDT PATHOLOGY RESULT - HIM SCAN 09/28/2024 12:00 AM CDT PATHOLOGY RESULT - HIM SCAN 09/28/2024 12:00 AM CDT COLONOSCOPY - HIM SCAN 12:00 AM CDT COLONOSCOPY - HIM SCAN 12:00 AM CDT US AORTA/IVC/ILIAC DUPLEX COMPLETE Routine 08/24/2024 7:49 AM CDT Pre-transplant evaluation for kidney transplant Cardiovascular disease End stage renal disease (H) History of asthma Organ transplant candidate Essential hypertension CT ABDOMEN PELVIS W/O CONTRAST Routine 08/24/2024 7:05 AM CDT Pre-transplant evaluation for kidney transplant Cardiovascular disease End stage renal disease (H) History of asthma Organ transplant candidate Essential hypertension [place] PLETHYSMOGRAPHY LUNG VOLUMES W/WO AIRWAY RESIST Routine 08/24/2024 6:11 AM CDT Pre-transplant evaluation for kidney transplant [place] RESPIRATORY FLOW VOLUME LOOP Routine 08/24/2024 6:11 AM CDT Pre-transplant evaluation for kidney transplant [place] DIFFUSING CAPACITY Routine 08/24/2024 6:11 AM CDT Pre-transplant evaluation for kidney transplant PFT GENERAL LAB TESTING Routine 08/25/19 5:54 AM CDT Pre-transplant evaluation for kidney transplant CBC WITH PLATELETS AND DIFFERENTIAL Routine 07/27/2024 1:55 PM CDT ESRD (end stage renal disease) on dialysis (H) Polycystic kidney disease HIV ANTIGEN ANTIBODY COMBO PRETRANSPLANT Routine 07/27/2024 1:55 PM CDT ESRD (end stage renal disease) on dialysis (H) Polycystic kidney disease HEPATITIS C ANTIBODY Routine 07/27/2024 1:55 PM CDT ESRD (end stage renal disease) on dialysis (H) Polycystic kidney disease COMPREHENSIVE METABOLIC PANEL Routine 07/27/2024 1:55 PM CDT ESRD (end stage renal disease) on dialysis (H) Polycystic kidney disease from Last 3 Months or Most Recently Relevant to Health Maintenance Results * HLA Result Report (10/31/2024 4:39 PM CDT) us Provider Outside LAB - IMMUNOLOGY ORDERABLES Fin al Result * PRA Single Antigen IgG Antibody (10/24/2024 11:30 AM CDT) Blood BLOOD SPECIMEN / Unknown Client Draw / Unknown 10/24/2024 11:30 AM CDT 10/27/2024 12:09 PM CDT us Angela Gonzalez MD LAB - IMMUNOLOGY ORDERABLES F inal Result [facility] Immunology/Histocomp atability CLIA: [id number] [facility] [address] [facility], Room [address] [phone] * HLA Marty Class II, Flow SCR [...] LAB - IMMUNOLOGY ORDERABLES F inal Result [facility] Immunology/Histocomp atability CLIA: [id number] [facility] [address], [address] [address], [facility] [phone] * HLA Marty Class I, Flow SCR (10/24/2024 11:30 AM CDT) FLOWPRA1 TEST METHOD FLOW 10/31/2024 4:40 PM CDT [facility] FLOWPRA1 CELL Class I 10/31/2024 4:40 PM CDT [facility] FLOWPRA1 RESULT Neg 4:40 PM CDT [facility] FLOWPRA1 COMMENTS HLA PRA Test [...] Result [facility] Immunology/Histocomp atability CLIA: [id number] [facility] [address], [address] [place] [address], [facility] [phone] * Potassium (09/28/2024 8:54 AM CDT) Potassium (External) 4.9 3.5 - 5.2 mmol/L NON-INTERFACED (ONBASE SCANS) Blood BLOOD SPECIMEN / Unknown 09/28/2024 8:54 AM CDT Narrative REG PFT - 10/03/2024 3:48 PM CDT Verified by Liza Payne on 10/03/2024. Provider Outside LAB - BLOOD ORDERABLES Edited R esult - Final BREEZCecily PFT NON-INTERFACED (ONBASE SCANS) * Pathology Result (09/28/2024 12:00 AM CDT) Only the most recent of2 resultswithin the time period is included. 09/28/2024 us Provider Outside LAB - [facility] ORDER FADUMO Final Result * Lab Result - HIM Scan (09/28/2024 12:00 AM CDT) 09/28/2024 us Provider Outside [facility] NON-BEAKER LAB TESTING Final Result * Colonoscopy - HIM Scan (09/28/2024 12:00 AM CDT) 09/28/2024 us Provider Outside PROCEDURES Final Result * Colonoscopy - HIM Scan (09/28/2024 12:00 AM CDT) 09/28/2024 us Provider Outside PROCEDURES Final Result * US Aorta/Ivc/Iliac Duplex Complete (08/24/2024 7:49 AM CDT) Anatomical Region Laterality Modality Abdomen/Pelvis Ultrasound Impressions 08/24/2024 9:01 AM CDT Impression: 1. Arteries: Pelvic arteries are patent with atherosclerotic disease present, however the right common iliac artery has elevated velocities that could indicate a mild to moderate atherosclerotic narrowing. There are no significant waveform changes downstream to indicate severe stenosis. 2. Veins: No pelvic DVT, patent pelvic veins. NESSA NARANJO MD [facility] 08/24/2024 9:01 AM CDT Arterial and venous duplex Doppler ultrasound of the abdomen and pelvis dated 08/24/2024 7:49 AM Clinical information: Evaluation for kidney transplant Comparison: CT dated 08/24/2024 Ordering provider: Maral Ashby Technique: Grayscale (B-mode), color, and duplex Doppler ultrasound of the infrarenal abdominal aorta, IVC, bilateral common, external, and common femoral arteries and veins. Velocity measurements obtained with angle correction at or less than 60 degrees. Findings: Aorta measurement in transverse: Infrarenal distal: 1.2 cm. Infrarenal distal aorta velocity: 131 cm/sec. Right side: Common iliac artery proximal: Velocity: 217 cm/sec, diameter 0.9 cm Common iliac artery distal: Velocity: 175 cm/sec, diameter 1.0 cm External iliac artery proximal: Velocity: 149 cm/sec, diameter 0.9 cm External iliac artery mid: Velocity: 114 cm/sec, diameter 0.9 cm External iliac artery distal: Velocity: 114 cm/sec, diameter 0.9 cm Common femoral artery: Velocity: 111 cm/sec, diameter 0.9 cm Left side: Common iliac artery proximal: Velocity: 155 cm/sec, diameter 0.8 cm Common iliac artery distal: Velocity: 162 cm/sec, diameter 1.0 cm External iliac artery proximal: Velocity: 147 cm/sec, diameter 0.9 cm External iliac artery mid: Velocity: 129 cm/sec, diameter 0.9 cm External iliac artery distal: Velocity: 129 cm/sec, diameter 0.8 cm Common femoral artery: Velocity: 137 cm/sec, diameter 0.9 cm Arterial Waveforms: Multiphasic throughout Pelvic veins: Distal IVC: 32 cm/sec Right CIV: 18 cm/sec Right EIV: 14 cm/sec (note should be made the number documented in the flow sheet is erroneous and not consistent with the measuring under image.) Right CFV: 18 cm/sec Left CIV: 26 cm/sec Left EIV: 23 cm/sec Left CFV: 17 cm/sec Venous Waveforms: Normal phasic waveforms throughout Procedure Note Nessa Naranjo MD - 08/24/2024 Arterial and venous duplex Doppler ultrasound of the abdomen and pelvis dated 08/24/2024 7:49 AM Clinical information: Evaluation for kidney transplant Comparison: CT dated 08/24/2024 Ordering provider: Maral Ashby Technique: Grayscale (B-mode), color, and duplex Doppler ultrasound of the infrarenal abdominal aorta, IVC, bilateral common, external, and common femoral arteries and veins. Velocity measurements obtained with angle correction at or less than 60 degrees. Findings: Aorta measurement in transverse: Infrarenal distal: 1.2 cm. Infrarenal distal aorta velocity: 131 cm/sec. Right side: Common iliac artery proximal: Velocity: 217 cm/sec, diameter 0.9 cm Common iliac artery distal: Velocity: 175 cm/sec, diameter 1.0 cm External iliac artery proximal: Velocity: 149 cm/sec, diameter 0.9 cm External iliac artery mid: Velocity: 114 cm/sec, diameter 0.9 cm External iliac artery distal: Velocity: 114 cm/sec, diameter 0.9 cm Common femoral artery: Velocity: 111 cm/sec, diameter 0.9 cm Left side: Common iliac artery proximal: Velocity: 155 cm/sec, diameter 0.8 cm Common iliac artery distal: Velocity: 162 cm/sec, diameter 1.0 cm External iliac artery proximal: Velocity: 147 cm/sec, diameter 0.9 cm External iliac artery mid: Velocity: 129 cm/sec, diameter 0.9 cm External iliac artery distal: Velocity: 129 cm/sec, diameter 0.8 cm Common femoral artery: Velocity: 137 cm/sec, diameter 0.9 cm Arterial Waveforms: Multiphasic throughout Pelvic veins: Distal IVC: 32 cm/sec Right CIV: 18 cm/sec Right EIV: 14 cm/sec (note should be made the number documented in the flow sheet is erroneous and not consistent with the measuring under image.) Right CFV: 18 cm/sec Left CIV: 26 cm/sec Left EIV: 23 cm/sec Left CFV: 17 cm/sec Venous Waveforms: Normal phasic waveforms throughout Impression: 1. Arteries: Pelvic arteries are patent with atherosclerotic disease present, however the right common iliac artery has elevated velocities that could indicate a mild to moderate atherosclerotic narrowing. There are no significant waveform changes downstream to indicate severe stenosis. 2. Veins: No pelvic DVT, patent pelvic veins. NESSA NARANJO MD us Domingo Ashby FAN BLADE TRUER CLIENT ARCHITECT IMG US ORDERABLES Fin al Result * CT Abdomen Pelvis w/o Contrast (08/24/2024 7:05 AM CDT) Anatomical Region Laterality Modality Abdomen/Pelvis, SUBRAD CT JUANITA DY, UMP CT ABDOMEN PELVIS, RAD CT Computed Tomography Impressions 08/24/2024 8:50 AM CDT IMPRESSION: 1. Sequelae of autosomal dominant polycystic kidney disease with extensive cystic lesions throughout the kidneys and liver. Several intermediate density renal lesions are noted, which likely represent proteinaceous/hemorrhagic cysts, but remain indeterminant. Extensive cystic burden somewhat limits assessment for suspicious lesions in the setting of a noncontrast evaluation. Overall, extent of findings appears similar compared to 04/23/2020 CT. 2. Apparent 6 mm polypoid focus arising from the sigmoid colon. Alternatively this may represent some adherent stool. Consider colonoscopy if not recently performed. 3. No acute findings in the abdomen or pelvis. I have personally reviewed the examination and initial interpretation and I agree with the findings. ANGIE GALINDO MD Narrative 08/24/2024 8:50 AM CDT EXAMINATION: CT ABDOMEN PELVIS W/O CONTRAST, 08/24/2024 7:05 AM TECHNIQUE: Helical CT images from the lung bases through the symphysis pubis were obtained without contrast. Coronal reformatted images were generated at a workstation for further assessment. COMPARISON: CT 02/21/2021 HISTORY: hx PKD, pre-kidney transplant evaluation; Pre-transplant evaluation for kidney transplant; Cardiovascular disease; End stage renal disease (H); History of asthma; Organ transplant candidate; Essential hypertension FINDINGS: Abdomen and pelvis: Liver: Extensive cystic appearing lesions throughout the hepatic parenchyma. Mild nodular contour of the hepatic capsule. Gallbladder: Cholecystectomy. Mild reservoir effect with prominence of the common bile duct. Spleen: Normal size. Pancreas: No suspicious pancreatic lesions. The pancreatic duct is not dilated. Adrenal glands: No adrenal nodules. Kidneys: Bilateral nephromegaly with extensive cystic appearing lesions replacing the normal renal parenchyma. Several hyperattenuating circumscribed lesions involving the kidney (for example 3/184) with an average internal density greater than 70 Hounsfield units suggestive of proteinaceous/hemorrhagic cysts. Additionally, there are multiple indeterminate lesions with intermediate density such as a 2.6 cm circumscribed lesion involving the left upper pole (4/61) with internal density of 43 Hounsfield units. Numerous punctate and dystrophic calcifications are noted. No hydronephrosis. Bladder: Unremarkable. Pelvic organs: Unremarkable. Gastrointestinal tract: Small sliding-type hiatal hernia. Duodenal diverticulum. No dilated loops of bowel or bowel wall thickening. Colonic diverticulosis. Within the distal sigmoid colon there is a 6 mm polypoid focus (3/387). Lymph nodes: No suspicious lymphadenopathy. Peritoneum/mesentery: No free fluid. No free air.. Vessels: No aneurysmal dilatation of the aorta or major branch vessels. No significant atherosclerotic disease. Heart and lung bases: Clear. Coronary artery calcifications. Bones and soft tissues: No acute or suspicious osseous lesions. No suspicious soft tissue findings. Procedure Note Angie Galindo - 08/24/2024 EXAMINATION: CT ABDOMEN PELVIS W/O CONTRAST, 08/24/2024 7:05 AM TECHNIQUE: Helical CT images from the lung bases through the symphysis pubis were obtained without contrast. Coronal reformatted images were generated at a workstation for further assessment. COMPARISON: CT 02/21/2021 HISTORY: hx PKD, pre-kidney transplant evaluation; Pre-transplant evaluation for kidney transplant; Cardiovascular disease; End stage renal disease (H); History of asthma; Organ transplant candidate; Essential hypertension FINDINGS: Abdomen and pelvis: Liver: Extensive cystic appearing lesions throughout the hepatic parenchyma. Mild nodular contour of the hepatic capsule. Gallbladder: Cholecystectomy. Mild reservoir effect with prominence of the common bile duct. Spleen: Normal size. Pancreas: No suspicious pancreatic lesions. The pancreatic duct is not dilated. Adrenal glands: No adrenal nodules. Kidneys: Bilateral nephromegaly with extensive cystic appearing lesions replacing the normal renal parenchyma. Several hyperattenuating circumscribed lesions involving the kidney (for example 3/184) with an average internal density greater than 70 Hounsfield units suggestive of proteinaceous/hemorrhagic cysts. Additionally, there are multiple indeterminate lesions with intermediate density such as a 2.6 cm circumscribed lesion involving the left upper pole (4/61) with internal density of 43 Hounsfield units. Numerous punctate and dystrophic calcifications are noted. No hydronephrosis. Bladder: Unremarkable. Pelvic organs: Unremarkable. Gastrointestinal tract: Small sliding-type hiatal hernia. Duodenal diverticulum. No dilated loops of bowel or bowel wall thickening. Colonic diverticulosis. Within the distal sigmoid colon there is a 6 mm polypoid focus (3/387). Lymph nodes: No suspicious lymphadenopathy. Peritoneum/mesentery: No free fluid. No free air.. Vessels: No aneurysmal dilatation of the aorta or major branch vessels. No significant atherosclerotic disease. Heart and lung bases: Clear. Coronary artery calcifications. Bones and soft tissues: No acute or suspicious osseous lesions. No suspicious soft tissue findings. IMPRESSION: 1. Sequelae of autosomal dominant polycystic kidney disease with extensive cystic lesions throughout the kidneys and liver. Several intermediate density renal lesions are noted, which likely represent proteinaceous/hemorrhagic cysts, but remain indeterminant. Extensive cystic burden somewhat limits assessment for suspicious lesions in the setting of a noncontrast evaluation. Overall, extent of findings appears similar compared to 04/23/[address] CT. 2. Apparent 6 mm polypoid focus arising from the sigmoid colon. Alternatively this may represent some adherent stool. Consider colonoscopy if not recently performed. 3. No acute findings in the abdomen or pelvis. I have personally reviewed the examination and initial interpretation and I agree with the findings. ANGIE GALINDO MD us Domingo Ashby FAN BLADE TRUER CLIENT ARCHITECT IMG CT ORDERABLES Fin al Result * General PFT Lab (Please always keep checked) (08/24/2024 5:54 AM CDT) FVC-Pred 3.22 L [facility] PFT FVC-Pre 3.77 L [facility]FT FVC-%Pred-Pre 117 % [facility] FEV1-Pre 3.19 L [facility] PFT FEV1-%Pred-Pre 125 % [facility] [id number] 80 % [facility]FT [id number] 85 % [facility] PFT FEFMax-Pred 6.74 L/sec [facility]FT FEFMax-Pre 8.03 L/sec [facility] PFT FEFMax-%Pred-Pr e 119 % [facility] PFT [id number] 2.28 L/sec [facility]FT [id number] 3.39 L/sec [facility]FT BAX6404-%Pred-P re 148 % [facility] PFT ExpTime-Pre 6.21 sec [facility] PFT FIFMax-Pre 6.78 L/sec [facility]FT VC-Pred 3.56 L [facility] PFT VC-Pre 3.72 L [facility] PFT VC-%Pred-Pre 104 % [facility] PFT IC-Pred 2.42 L [facility] PFT IC-Pre 3.43 L [facility] PFT IC-%Pred-Pre 141 % [facility] PFT ERV-Pred 1.21 L [facility] PFT ERV-Pre 0.30 L [facility] PFT ERV-%Pred-Pre 24 % [facility]FT [id number] 81 % [facility] PFT [id number] 85 % [facility] PFT FRCPleth-Pred 3.13 L [facility] PFT FRCPleth-Pre 2.54 L [facility] PFT FRCPleth-%Pred- Pre 81 % [facility] PFT RVPleth-Pred 2.05 L [facility] PFT RVPleth-Pre 2.24 L [facility] PFT RVPleth-%Pred-P re 109 % [facility] PFT TLCPleth-Pred 5.44 L [facility] PFT TLCPleth-Pre 5.97 L [facility] PFT TLCPleth-%Pred- Pre 109 % [facility] PFT DLCOunc-Pred 21.24 ml/min/mmHg [facility] PFT DLCOunc-Pre 20.04 ml/min/mmHg [facility] PFT DLCOunc-%Pred-P re 94 % [facility] PFT VA-Pre 5.44 L [facility] PFT VA-%Pred-Pre 105 % [facility] PFT [id number]-Cose 72 % [facility] PFT [id number] 86 % [facility] PFT 08/24/2024 5:54 AM CDT Narrative [facility] PFT - 08/24/2024 7:51 PM CDT The FEV1 is increased, the FVC and FEV1/FVC ratio are normal The inspiratory flow rates are within normal limits. Lung volumes are within normal limits. The diffusing capacity is normal. However, the diffusing capacity was not corrected for the patient's hemoglobin. IMPRESSION: The study should be interpreted with caution given the reported difficulties with testing. Normal Pulmonary Function Elva Velez MD This interpretation has been electronically signed: ELVA VELEZ 08/24/2024 07:32:04 PM Domingo Ashby FAN BLADE TRUER CLIENT ARCHITECT PFT ORDERABLES Final Result [facility] PFT * (ABNORMAL) CBC with platelets and differential (07/27/2024 1:55 PM CDT) [facility] WBC Count 5.0 4.0 - 11.0 10e3/uL 07/27/2024 2:13 PM CDT [facility] RBC Count 3.53(L) 3.80 - 5.20 10e6/uL 07/27/2024 2:13 PM CDT [facility] Hemoglobin 11.1(L) 11.7 - 15.7 g/dL 07/27/2024 2:13 PM CDT [facility] Hematocrit 34.7(L) 35.0 - 47.0 % 07/27/2024 2:13 PM CDT [facility] MCV 98 78 - 100 fL 07/27/2024 2:13 PM CDT [facility] MCH 31.4 26.5 - 33.0 pg 07/27/2024 2:13 PM CDT [facility] MCHC 32.0 31.5 - 36.5 g/dL 07/27/2024 2:13 PM CDT [facility] RDW 12.9 10.0 - 15.0 % 07/27/2024 2:13 PM CDT [facility] Platelet Count 193 150 - 450 10e3/uL 07/27/2024 2:13 PM CDT [facility] % Neutrophils 69 % 07/27/2024 2:13 PM CDT [facility] % Lymphocytes 21 % 07/27/2024 2:13 PM CDT [facility] % Monocytes 7 % 07/27/2024 2:13 PM CDT [facility] % Eosinophils 1 % 07/27/2024 2:13 PM CDT [facility] % Basophils 1 % 07/27/2024 2:13 PM CDT [facility] % Immature Granulocytes 0 % 07/27/2024 2:13 PM CDT [facility] NRBCs per 100 WBC 0 <1 /100 025 2:13 PM CDT [facility] Absolute Neutrophils 3.5 1.6 - 8.3 10e3/uL 07/27/2024 2:13 PM CDT [facility] Absolute Lymphocytes 1.1 0.8 - 5.3 e3/uL 07/27/2024 2:13 PM CDT [facility] Absolute Monocytes 0.3 0.0 - 1.3 10e3/uL 07/27/2024 2:13 PM CDT [facility] Absolute Eosinophils 0.1 0.0 - 0.7 10e3/uL 07/27/2024 2:13 PM CDT [facility] Absolute Basophils 0.1 0.0 - 0.2 10e3/uL 07/27/2024 2:13 PM CDT [facility] Absolute Immature Granulocytes 0.0 <=0.4 10e3/uL 07/27/2024 2:13 PM CDT [facility] Absolute NRBCs 0.0 10e3/uL 07/27/2024 2:13 PM CDT [facility] Blood STRUCTURE OF RIGHT UPPER LIMB / Unknown Venipuncture / Unknown 07/27/2024 1:55 PM CDT 07/27/2024 2:05 PM CDT us Blanca Cast CONCESSION MANAGER LAB - BLOOD ORDERABLES Fin al Result [facility] - [facility]blem [address] 1st [place] [address] * HIV Antigen Antibody Combo Pretransplant [facility] (07/27/2024 1:55 PM CDT) HIV Antigen Antibody Combo Pretransplant Nonreactive Nonreactive 07/27/2024 6:51 PM CDT [facility] Comment:Negative HIV-1 p24 a ntigen and HIV-1/2 antibody screening test results usually indicate the absence of HIV-1 and HIV-2 infection. However, such negative results do not rule-out acute HIV infection. If acute HIV-1 or HIV-2 infection is suspected, detection of HIV-1 or HIV-2 RNA is recommended. This result is obtained using the Mar[employer] Elecsys HIV Duo method on the karin e801 immunoassay analyzer. Blood STRUCTURE OF RIGHT UPPER LIMB / Unknown Venipuncture / Unknown 07/27/2024 1:55 PM CDT 07/27/2024 2:05 PM CDT us Blanca Cast NP LAB - BLOOD ORDERABLES Fin al Result [facility] [place] [facility] [address] [facility] [place] [address] * Hepatitis C antibody [ZRF256] (07/27/2024 1:55 PM CDT) Hepatitis C Antibody Nonreactive Nonreactive 07/27/2024 8:30 PM CDT [facility] Comment:A nonreactive screen ing test result does not exclude the possibility of exposure to or infection with HCV. Nonreactive screening test results in individuals with prior exposure to HCV may be due to antibody levels below the limit of detection of this assay or lack of reactivity to the HCV antigens used in this assay. Patients with recent HCV infections (<3 months from time of exposure) may have false- negative HCV antibody results due to the time needed for seroconversion (average of 8 to 9 weeks). Blood STRUCTURE OF RIGHT UPPER LIMB / Unknown Venipuncture / Unknown 07/27/2024 1:55 PM CDT 07/27/2024 2:05 PM CDT us Blanca Cast NP LAB - BLOOD ORDERABLES Fin al Result [facility] [place] [facility] [address] [facility] [facility] [address], [address] [place] [phone] * (ABNORMAL) Comprehensive metabolic panel [LAB17] (07/27/2024 1:55 PM CDT) Sodium 138 135 - 145 mmol/L 07/27/2024 2:37 PM CDT [facility] Potassium 4.4 3.4 - 5.3 mmol/L 07/27/2024 2:37 PM CDT [facility] Carbon Dioxide (CO2) 27 22 - 29 mmol/L 07/27/2024 2:37 PM CDT [facility] Anion Gap 14 7 - 15 mmol/L 07/27/2024 2:37 PM CDT [facility] Urea Nitrogen 35.5(H) 8.0 - 23.0 mg/dL 07/27/2024 2:37 PM CDT [facility] Creatinine 7.37(H) 0.51 - 0.95 mg/dL 07/27/2024 2:37 PM CDT [facility] GFR Estimate 6(L) >60 mL/min/1.7 3m2 07/27/2024 2:37 PM CDT [facility] Comment:eGFR calculated usin g 2020 CKD-EPI equation. Calcium 9.5 8.8 - 10.4 mg/dL 07/27/2024 2:37 PM CDT [facility] Chloride 97(L) 98 - 107 mmol/L 07/27/2024 2:37 PM CDT [facility] Glucose 122(H) 70 - 99 mg/dL 07/27/2024 2:37 PM CDT [facility] Alkaline Phosphatase 95 40 - 150 U/L 07/27/2024 2:37 PM CDT [facility] AST 21 0 - 45 U/L 07/27/2024 2:37 PM CDT [facility] ALT 16 0 - 50 U/L 07/27/2024 2:37 PM CDT [facility] Protein Total 7.4 6.4 - 8.3 g/dL 07/27/2024 2:37 PM CDT [facility] Albumin 4.3 3.5 - 5.2 g/dL 07/27/2024 2:37 PM CDT [facility] Bilirubin Total 0.5 <=1.2 mg/dL 07/27/2024 2:37 PM CDT [facility] Blood STRUCTURE OF RIGHT UPPER LIMB / Unknown Venipuncture / Unknown 07/27/2024 1:55 PM CDT 07/27/2024 2:05 PM CDT Blanca Cast NP LAB - BLOOD ORDERABLES Fin al Result [facility] [address] 1st [place] [address] from Last 3 Months or Most Recently Relevant to Health Maintenance Insurance [employer] Care Teams Sueding Machine Operator Relationship Specialty Start Date End Date Yudy Joya PA [address] [place] [address] PCP - General Family Practice 06/19/24 Blanca Cast NP [address] [place] [address] Assigned Surgical Provider 08/09/24 López Mariano MD [address] [place] [phone] Nephrology 10/02/24 Lacey Thompson APRN CLIENT ARCHITECT [address] [place] [address] Nurse Practitioner Cardiovascular Disease 10/18/24 Domingo Ashby APRN CLIENT ARCHITECT [address] [place] [address] Nurse Practitioner Nephrology 10/18/24
--- OUTSIDE RECORDS SUMMARY | 2024-11-19 10:27 | XMS_ITS | Encounter Summary ---
Author Organization [facility] Address [address] [place] [address] Care Team Providers Care Needle Control Cheniller Name Role Phone Yudy Joya Primary Care Provider [phone] Blanca Cast RATE SETTER Unavailable [phone] López Mariano MD Unavailable [phone] Lacey Thompson EQUIPMENT PLANNER OFFICE SWEEPER Unavailable + [phone] Domingo Ashby EQUIPMENT PLANNER OFFICE SWEEPER Unavailable Encounter Details Date Type Department Care Team (Late st Contact Info) Description 10/13/2024 Documentation Only [facility] [address] [place] [phone] Reena Medina LPN Social History Tobacco Use Types Packs/Day Years Used Date Smoking Tobacco: Every Day Cigarettes Passive Smoke Exposure: Never Smokeless Tobacco: Never Alcohol Use Standard Drinks/Week Comments Yes 0 (1 standard drink = 0.6 oz pur e alcohol) 1 beer /day Comments Unknown Sex and Gender Information Value Date Recorded Sex Assigned at Female 06/19/2024 10:51 AM SEMICONDUCTOR WAFERS ETCHER STRIPPER Legal Sex Female 4:57 AM SEMICONDUCTOR WAFERS ETCHER STRIPPER Gender Identity Female 06/19/2024 10:51 AM SEMICONDUCTOR WAFERS ETCHER STRIPPER Sexual Orientation Choose not to disclose 2024 10:51 AM SEMICONDUCTOR WAFERS ETCHER STRIPPER documented as of this encounter Plan of Treatment Upcoming Encounters Date Type Department Care Team (Late st Contact Info) Description 02/07/2025 3:30 PM CDT Virtual Visit [facility] [address] [place] [phone] Domingo Ashby APRN OFFICE SWEEPER [address] [place], [place] [address] Lacey Thompson APRN OFFICE SWEEPER [address] [place] [address] documented as of this encounter Visit Diagnoses Not on filedocumented in this encounter Care Teams Needle Control Cheniller Relationship Specialty Start Date End Date Yudy Joya PA [address] [place] [address] PCP - General Family Practice 06/19/24 Blanca Cast NP [address] [place] [phone] Assigned Surgical Provider 08/09/24 López Mariano MD [address] [place] [phone] Nephrology 10/02/24 Lacey Thompson APRN OFFICE SWEEPER [address] [place], [place] [address] Nurse Practitioner Cardiovascular Disease 10/18/24 Domingo Ashby APRN OFFICE SWEEPER [address] [place] [address] Nurse Practitioner Nephrology 10/18/24 documented as of this encounter
--- OUTSIDE RECORDS SUMMARY | 2024-11-19 10:27 | XMS_ITS | Encounter Summary ---
Author Organization [facility] Address [address] [place] [address] Care Team Providers Care Investment Director Name Role Phone Haylee Alanis APRN, CNP Primary Care Provide r Encounter Details Date Type Department Care Team (Late st Contact Info) Description 08/23/2013 Emergency Room External to External, [place] [address] RT SIDED FLANK AND BACK PAIN BLOOD [...] on filedocumented in this encounter Care Teams Investment Director Relationship Specialty Start Date End Date Haylee Alanis APRN, CNP [address] [place] [address] PCP - General Nurse Practitioner 02/04/16 documented as of this encounter
--- OUTSIDE RECORDS SUMMARY | 2024-11-19 10:27 | XMS_ITS ---
Author Organization [facility] Address [address] [place] [address] Care Team Providers Care Energy Efficient Site Manager Name Role Phone Yudy Joya Primary Care Provider [phone] Blanca Cast NP Unavailable [phone] López Mariano MD Unavailable Lacey Thompson PE TEACHER DIESEL LOCOMOTIVE ENGINEER Unavailable + [phone] Domingo Ashby PE TEACHER DIESEL LOCOMOTIVE ENGINEER Unavailable Transplant Episode Kidney Candidate [facility] ([place], [place]) [facility] Center waitlisted on 10/13/2024 Marked as Active on 10/13/2024 Kidney CoordinatorOrly Burrell RN Phone: N/A Fax: N/A Email: N/A Scores Score Value Updated Exceptions/Reas ons CPRA Not available EPTS (Calc) 55 11/19/2024 [place] Organ Diagnosis Organ Primary Contributory Kidney Polycystic Kidneys Care Team Name Role Phone Fax Email Orly Burrell RN Kidney Coordinator N/A N/A N/A Luis Miguel Jensen MD Referring Physician [phone] [email or web address] Denver Arce LPN Fundraising Consultant N/A N/A N/A Events Pre-Transplant Referred: 03/15/2024 Evaluation began: 07/27/2024 Committee: 08/02/2024 UNOS qualified: 02/20/2019 Center waitlisted: 10/13/2024 Dialysis History Dialysis History Start End Type Comments Center 02/20/2019 [facility] Dialysis Center Information Center Phone Fax Address [facility] ([facility]) [phone] Formerly [facility] [place] [address]
--- OUTSIDE RECORDS SUMMARY | 2024-11-19 10:27 | XMS_ITS | Encounter Summary ---
Author Organization [facility] Address [address] [place] [address] Care Team Providers Care Senior C Software Developer Name Role Phone Yudy Joya Primary Care Provider [phone] Blanca Cast TOURIST INFORMATION ASSISTANT Unavailable [phone] López Mariano MD Unavailable [phone] Lacey Thompson SHIRT CLOSER ENGINEERING LIBRARIAN Unavailable + [phone] Domingo Ashby SHIRT CLOSER ENGINEERING LIBRARIAN Unavailable Encounter Details Date Type Department Care Team (Late st Contact Info) Description 10/25/2024 MyC Medical Advice [facility] [address] [place] [phone] Reena Medina LPN Social History Tobacco Use Types Packs/Day Years Used Date Smoking Tobacco: Every Day Cigarettes Passive Smoke Exposure: Never Smokeless Tobacco: Never Alcohol Use Standard Drinks/Week Comments Yes 0 (1 standard drink = 0.6 oz pur e alcohol) 1 beer /day Comments Unknown Sex and Gender Information Value Date Recorded Sex Assigned at Female 06/19/2024 10:51 AM WINDOWS SERVER ARCHITECT Legal Sex Female 4:57 AM WINDOWS SERVER ARCHITECT Gender Identity Female 06/19/2024 10:51 AM WINDOWS SERVER ARCHITECT Sexual Orientation Choose not to disclose 2024 10:51 AM WINDOWS SERVER ARCHITECT documented as of this encounter Plan of Treatment Upcoming Encounters Date Type Department Care Team (Late st Contact Info) Description 02/07/2025 3:30 PM CDT Virtual Visit [facility] [address] [place] [phone] Domingo Ashby APRN ENGINEERING LIBRARIAN [address] [place], [place] [address] Lacey Thompson APRN ENGINEERING LIBRARIAN [address] [place] [address] documented as of this encounter Visit Diagnoses Not on filedocumented in this encounter Care Teams Senior C Software Developer Relationship Specialty Start Date End Date Yudy Joya PA [address] [place] [address] PCP - General Family Practice 06/19/24 Blanca Cast NP [address] [place] [address] Assigned Surgical Provider 08/09/24 López Mariano MD [address] [place] [phone] Nephrology 10/02/24 Lacey Thompson APRN ENGINEERING LIBRARIAN [address] [place], [place] [address] Nurse Practitioner Cardiovascular Disease 10/18/24 Domingo Ashby APRN ENGINEERING LIBRARIAN [address] [place] [address] Nurse Practitioner Nephrology 10/18/24 documented as of this encounter
--- OUTSIDE RECORDS SUMMARY | 2024-11-19 10:27 | XMS_ITS | Clinical Summary ---
Author Organization [facility] Facility Address [address] [facility] [address] [place] [address] Care Team Providers Care Cook Soup Name Role Phone Yudy Joya Primary Care Provider [phone] Active Problems Problem Noted Date Diagnosed Date Autosomal dominant polycystic kidney disease 01/2024 Dependence on renal dialysis 12/28/2023 Anemia in end stage renal disease 12/28/2023 End stage renal disease 12/28/2023 Hyperparathyroidism due to renal insufficiency 0 12/28/2023 Hypertensive disorder 12/28/2023 Encounters Date Type Department Care Team Description 11/15/2024 Orders Only [facility] [address] [place] [phone] López Mariano MD 11/15/2024 Treatment [facility] [place] [address] [place] [address] López Mariano MD End stage renal disease; Dependence on renal dialysis 11/08/2024 Orders Only [facility] [place] [address] [place] [address] López Mariano MD 11/08/2024 Treatment [facility] [place] [address] [place] [phone] Farhana Mcrae APRN-AMY End stage renal disease; Dependence on renal dialysis 11/01/2024 Orders Only [facility] [address] [place] [address] López Mariano MD 10/25/2024 Orders Only [facility] [address] [place] [address] López Mariano MD 10/23/2024 Orders Only [facility] [address] [place] [address] López Mariano MD 10/18/2024 Orders Only [facility] [address] [place] [address] López Mariano MD 10/11/2024 Orders Only [facility] [address] [place] [address] López Mariano MD 10/09/2024 Treatment [facility] [address] [place] [address] López Mariano MD End stage renal disease; Dependence on renal dialysis 10/04/2024 Orders Only [facility] [address] [place] [phone] López Mariano MD 10/04/2024 Treatment [facility] [address] [place] [address] Farhana Mcrae APRN-AMY End stage renal disease; Dependence on renal dialysis 09/27/2024 Orders Only [facility] [address] [place] [address] López Mariano MD 09/20/2024 Orders Only [facility] [address] [place] [address] López Mariano MD 09/13/2024 Orders Only [facility] [address] [place] [address] López Mariano MD 08/30/2024 Orders Only [facility] [address] [place] [address] López Mariano MD 08/28/2024 Orders Only [facility] [address] [facility] [address] [place] [address] López Mariano MD 08/25/2024 Treatment [facility] [address] [place] [address] López Mariano MD End stage renal disease; Dependence on renal dialysis 08/23/2024 Orders Only [facility] [address] [facility] [address] [place] [address] López Mariano MD 08/23/2024 Treatment [facility] [address] [place] [address] Farhana Mcrae APRN-AMY End stage renal disease; Dependence on renal dialysis from Last 3 Months Social History Tobacco [...] Colorectal Cancer Screening: Sigmoidoscopy 2013 Pneumococcal Vaccine: 50+ Ye ars (3 of 3 - PCV20 or PCV21) 02/03/2021 08/21/2020, 02/04/2016 Influenza Vaccine (#1) 2024 , 01/27/2023, 01/23/2022, Additional history exists Pneumococcal Vaccine: Peds ( 0 to 5 Years) and At-Risk Patients (6 to 49 Years) Discontinued 08/21/2020, 02/04/2016 Procedures Procedure Name Priority Date/Time Associated Diagnosis Comments HEMATOLOGY Routine 11/15/2024 HEMATOLOGY Routine 11/08/2024 HEMATOLOGY Routine 11/01/2024 HEMATOLOGY Routine 10/25/2024 [facility] RESULTS Routine 10/23/2024 HD KINETICS Routine 10/23/2024 CHEMISTRY Routine 10/23/2024 POST CHEMISTRY Routine 10/23/2024 IMMUNO CHEMISTRY Routine 10/18/2024 CHEMISTRY Routine 10/18/2024 HEMATOLOGY Routine 10/18/2024 HEMATOLOGY Routine 10/11/2024 HEMATOLOGY Routine 10/04/2024 HEMATOLOGY Routine 09/27/2024 [facility] LAB RESULTS Routine 09/20/2024 HD KINETICS Routine 09/20/2024 CHEMISTRY Routine 09/20/2024 POST CHEMISTRY Routine 09/20/2024 HEMATOLOGY Routine 09/20/2024 IMMUNO CHEMISTRY Routine 09/20/2024 HEMATOLOGY Routine 09/13/2024 HEMATOLOGY Routine 08/30/2024 CHEMISTRY Routine 08/28/2024 [facility] LAB RESULTS Routine 08/23/2024 HD KINETICS Routine 08/23/2024 POST CHEMISTRY Routine 08/23/2024 IMMUNO CHEMISTRY Routine 08/23/2024 CHEMISTRY Routine 08/23/2024 CHEMISTRY Routine 08/23/2024 HEMATOLOGY Routine 08/23/2024 from Last 3 Months Results * (ABNORMAL) HEMATOLOGY (11/15/2024) Only the most recent of12 resultswithin the time period is included. Hemoglobin 10.0(L) 12.0 - 16.0 g/dL [facility] Hemoglobin x 3 30.0(L) 36.0 - 48.0 % [facility] 11/15/2024 11/16/2024 7:0 1 AM CDT Narrative [facility] - 11/16/2024 Unless otherwise specified, test(s) performed at: [facility], [address] [place] [address], [place] [address] LADIES SUIT OPERATOR: John Hernandez M.D., Ph.D For any questions, please call customer service at FREQUENCY:OTHER Resulting Agency Comment Specimen source: Blood us López Mariano MD LAB BLOOD ORDERABLES Final Re sult [facility] See order comments or contact performing lab Unknown, [place] * HD KINETICS (10/23/2024) Only the most recent of3 resultswithin the time period is included. % Urea Reduction 73 65 - 80 % [facility] 10/23/2024 10/24/2024 2:4 9 AM CDT Narrative [facility] - 10/24/2024 Unless otherwise specified, test(s) performed at: [facility], [address] [place] [address], [place] [address] LADIES SUIT OPERATOR: John Hernandez M.D., Ph.D For any questions, please call customer service at FREQUENCY:OTHER Resulting Agency Comment Specimen source: Plasma López Mariano MD LAB BLOOD ORDERABLES Final Re sul Performing Organization Address [facility] de Phone Number [facility] See order comments or contact performing lab Unknown, [place] * POST CHEMISTRY (10/23/2024) Only the most recent of3 resultswithin the time period is included. BUN Post Dialysis 14 6 - 19 mg/dL [facility] 10/23/2024 10/24/2024 2:4 9 AM CDT Narrative [facility] - 10/24/2024 Unless otherwise specified, test(s) performed at: [facility], [address] [place] [address], [place] [address] LADIES SUIT OPERATOR: John Hernandez M.D., Ph.D For any questions, please call customer service at FREQUENCY:OTHER Resulting Agency Comment Specimen source: Plasma López Mariano MD LAB BLOOD ORDERABLES Final [facility] Performing Organization Address [facility] de Phone Number [facility] See order comments or contact performing lab Unknown, [place] * (ABNORMAL) [facility] Chemistry (10/23/2024) Only the most recent of6 resultswithin the time period is included. BUN 51(H) 6 - 19 mg/dL [facility] [...] 10/23/2024 10/24/2024 4:2 4 AM CDT Narrative [facility] - 10/24/2024 Unless otherwise specified, test(s) performed at: [facility], [address] [place] [address], [place] [address] LADIES SUIT OPERATOR: John Hernandez M.D., Ph.D For any questions, please call customer service at FREQUENCY:OTHER Resulting Agency Comment Specimen source: Serum López Mariano MD LAB BLOOD ORDERABLES Final Re sult Performing Organization Address City[facility]/ZIP Co de Phone Number [facility] [employer] [facility] See order comments or contact performing lab Unknown, [place] * [facility] Lab Results (10/23/2024) Only the most recent of3 resultswithin the time period is included. Pathologist [facility] eKt/V Gotch 1.28 [facility] e Center eKdrt/V 1.28 [facility] spKt/V (Daugirdas II) 1.49 [facility] PCR 47.82 [facility] eKt/V ([place]) 1.27 [facility] nPCR_HD 0.78 [facility] Center spKt/V Gotch 1.52 [facility] ge Center WSTDKT/V 2.4 [facility] eNPCR 0.72 [facility] 10/23/2024 10/23/2024 [facility] Ordering Provider LAB BLOOD ORDERABLES Final Result Performing Organization Address City/[facility]/ZIP Co de Phone Number [facility] Contact Performing lab Unknown, [place] * IMMUNO CHEMISTRY (10/18/2024) Only the most recent of3 resultswithin the time period is included. Pathologist [facility] Hep B Surface Ag Negative Negative [facility] Hepatitis C Antibody Nonreactive Nonreactive [facility] Comment: No HCV antibody detected. The above test result was obtained using [employer] IM chemiluminescent method. Results obtained with different assay methods or kits cannot be used interchangeably. S/CO Ratio <0.02 0.00 - 0.79 [facility] Comment: s/co ratio Interpretation Supplemental testing <0.80 Nonreactive No further testing required. 0.80-0.99 Equivocal HCV RNA Quantitative Real-Time PCR is recommended. 1.00->11.00 Reactive HCV RNA Quantitative Real-Time PCR is recommended to distinguish active from resolved cases. 10/18/2024 10/19/2024 1:2 3 PM CDT Narrative [facility] - 10/19/2024 Unless otherwise specified, test(s) performed at: [facility], [address] [place] [address], [place] [address] LADIES SUIT OPERATOR: John Hernandez M.D., Ph.D For any questions, please call customer service at FREQUENCY:MONTHLY Resulting Agency Comment Specimen source: Plasma us López Mariano MD LAB BLOOD ORDERABLES Final Re sult [employer] [facility] See order comments or contact performing lab Unknown, [place] from Last 3 Months [employer] [place] [phone] Advance Directives Healthcare Agents on File Name Relationship Healthcare Agent [facility] Communication Staci Thompson Sibling Health Care Agent [email or web address] Care Teams Cook Soup Relationship Specialty Start Date End Date Yudy [place] [address] PCP - General Family Medicine 06/01/24
--- OUTSIDE RECORDS SUMMARY | 2024-11-19 10:27 | XMS_ITS | Encounter Summary ---
Author Organization [facility] Address [address] [place] [address] Care Team Providers Care Mental Health Unit Lead Psychologist Name Role Phone Haylee Alanis APRN, CNP Primary Care Provide r Encounter Details Date Type Department Care Team (Late st Contact Info) Description 08/24/2013 Outside Hospital External to External, [place] [address] DISCHARGE SUMMARY Social History Tobacco Use Types [...] on filedocumented in this encounter Care Teams Mental Health Unit Lead Psychologist Relationship Specialty Start Date End Date Haylee Alanis APRN, CNP [address] [place] [address] PCP - General Nurse Practitioner 02/04/16 documented as of this encounter
--- OUTSIDE RECORDS SUMMARY | 2024-11-19 10:27 | XMS_ITS | Encounter Summary ---
Author Organization [place] Address [facility] [place] [address] Care Team Providers Care Medical Pathologist Name Role Phone Yudy Joya Primary Care Provider [phone] Blanca Cast NP Unavailable [phone] López Mariano MD Unavailable [phone] Encounter Details Date Type Department Care Team (Late st Contact Info) Description 10/12/2024 Documentation Only [facility] [address] [place] [address] Alie Waters RN Social History Tobacco Use Types Packs/Day Years Used Date Smoking Tobacco: Every Day Cigarettes Passive Smoke Exposure: Never Smokeless Tobacco: Never Alcohol Use Standard Drinks/Week Comments Yes 0 (1 standard drink = 0.6 oz pur e alcohol) 1 beer /day Comments Unknown Sex and Gender Information Value Date Recorded Sex Assigned at Female 06/19/2024 10:51 AM SPONGE DIVER Legal Sex Female 4:57 AM SPONGE DIVER Gender Identity Female 06/19/2024 10:51 AM SPONGE DIVER Sexual Orientation Choose not to disclose 2024 10:51 AM SPONGE DIVER documented as of this encounter Progress Notes * Alie Waters RN - 10/12/2024 12:15 PM CDT Kidney Transplant Evaluation - 07/27/2024 Stephanie Norman attended the pre-transplant patient education class today. The [facility] website pre-transplant modules were viewed; class participants were educated on using the site. Content reviewed: Living Donation and how to access that program Paired exchange Kidney Donor Profile Index (KDPI) Waiting list issues (right to decline without penalty, high PHS risk donors, what to expect when called with an offer) Hospital experience, length of stay, need to stay locally post-discharge (2-4 weeks) Post-surgery lifting and driving restrictions Post-transplant routines, frequency of lab work and clinic visits Need to stay locally post-discharge (2-4 weeks) Role of Electrical Technician Participants were informed of the benefits of transplant as well as potential risks such as infection, cancer, and . The need for total adherence with immunosuppression medications and followingtransplant regimens was stressed. The overall evaluation/approval/listing process was reviewed. documented in this encounter Plan of Treatment Upcoming Encounters Date Type Department Care Team (Late st Contact Info) Description 02/07/2025 3:30 PM CDT Virtual Visit [facility] [address] [place] [phone] Domingo Ashby APRN REAL ESTATE MANAGEMENT SPECIALIST [address] [place] [address] Lacey Thompson APRN REAL ESTATE MANAGEMENT SPECIALIST [address] [place] [address] documented as of this encounter Visit Diagnoses Not on filedocumented in this encounter Care Teams Medical Pathologist Relationship Specialty Start Date End Date Yudy Joya PA [address] [place] [address] PCP - General Family Practice 06/19/24 Blanca Cast NP [address] [place] [address] [id number] Assigned Surgical Provider 08/09/24 López Mariano MD [address] [place] [phone] Nephrology 10/02/24 documented as of this encounter
--- OUTSIDE RECORDS SUMMARY | 2024-11-19 10:27 | XMS_ITS | Encounter Summary ---
Author Organization [facility] Address [address] [place] [address] Care Team Providers Care Assistant Pastry Chef Name Role Phone Yudy Joya Primary Care Provider [phone] Blanca Cast TEST ANALYST Unavailable [phone] López Mariano MD Unavailable [phone] Lacey Thompson PHOTORESIST CONTACT PRINTER BENEFIT DIRECTOR Unavailable + [phone] Domingo Ashby APRN BENEFIT DIRECTOR Unavailable [phone] Encounter Details Date Type Department Care Team (Late st Contact Info) Description 08/03/2024 Orders Only [facility] [address] [place] [address] Outside, Provider Social History Tobacco Use Types Packs/Day Years Used Date Smoking Tobacco: Every Day Cigarettes Passive Smoke Exposure: Never Smokeless Tobacco: Never Alcohol Use Standard Drinks/Week Comments Yes 0 (1 standard drink = 0.6 oz pur e alcohol) 1 beer /day Comments Unknown Sex and Gender Information Value Date Recorded Sex Assigned at Female 06/19/2024 10:51 AM LINING FELLER BLINDSTITCH Legal Sex Female 4:57 AM LINING FELLER BLINDSTITCH Gender Identity Female 06/19/2024 10:51 AM LINING FELLER BLINDSTITCH Sexual Orientation Choose not to disclose 2024 10:51 AM LINING FELLER BLINDSTITCH documented as of this encounter Plan of Treatment Upcoming Encounters Date Type Department Care Team (Late st Contact Info) Description 02/07/2025 3:30 PM CDT Virtual Visit [facility] [address] [place] [address] Domingo Ashby APRN BENEFIT DIRECTOR [address] [place] [address] Lacey Thompson APRN BENEFIT DIRECTOR [address] [place] [address] documented as of this encounter Procedures Procedure Name Priority Date/Time Associated Diagnosis Comments HLA RESULT REPORT 08/03/2024 5:05 PM CDT documented in this encounter Results * HLA Result Report (08/03/2024 5:05 PM CDT) us Provider Outside LAB - IMMUNOLOGY ORDERABLES Fin al Result documented in this encounter Visit Diagnoses Not on filedocumented in this encounter Care Teams Assistant Pastry Chef Relationship Specialty Start Date End Date Yudy Joya PA [address] [place] [address] PCP - General Family Practice 06/19/24 Blanca Cast, CAMILA [address] [place] [address] [id number] Assigned Surgical Provider 08/09/24 López Mariano MD [address] [place] [phone] Nephrology 10/02/24 Lacey Thompson APRN BENEFIT DIRECTOR [address] [place], [place] [address] Nurse Practitioner Cardiovascular Disease 10/18/24 Domingo Ashby APRN BENEFIT DIRECTOR [address] [place] [address] Nurse Practitioner Nephrology 10/18/24 documented as of this encounter
--- OUTSIDE RECORDS SUMMARY | 2024-11-19 10:28 | XMS_ITS | Encounter Summary ---
Author Organization [facility] Address [address] [place] [address] Care Team Providers Care Escort Patients Name Role Phone Yudy Joya Primary Care Provider [phone] Encounter Details Date Type Department Care Team (Late st Contact Info) Description 10/25/2024 Orders Only [facility] [place] [address] [facility] [address] [place] [phone] López Mariano MD [address] [place] [address] Social History Tobacco Use Types [...] Priority Date/Time Associated Diagnosis Comments HEMATOLOGY Routine 10/25/2024 documented in this encounter Results * (ABNORMAL) HEMATOLOGY (10/25/2024) Hemoglobin 10.9(L) 12.0 - 16.0 g/dL [facility] Hemoglobin x 3 32.7(L) 36.0 - 48.0 % [facility] 10/25/2024 10/26/2024 3:0 8 AM CDT Narrative [facility] - 10/26/2024 Unless otherwise specified, test(s) performed at: [facility], [address] [place] [address], [place] [address] FOOD PORTER: John Hernandez M.D., Ph.D For any questions, please call customer service at FREQUENCY:OTHER Resulting Agency Comment Specimen source: Blood us López Mariano MD LAB BLOOD ORDERABLES Final Re sult [facility] See order comments or contact performing lab Unknown, [place] documented in this encounter Visit Diagnoses Not on filedocumented in this encounter Care Teams Escort Patients Relationship Specialty Start Date End Date Yudy Joya PA [address] [place] [address] PCP - General Family Medicine 06/01/24 documented as of this encounter
--- OUTSIDE RECORDS SUMMARY | 2024-11-19 10:28 | XMS_ITS | Encounter Summary ---
Author Organization [facility] Address [address] [place] [address] Care Team Providers Care Straddle Bug Name Role Phone Yudy Joya Primary Care Provider [phone] Encounter Details Date Type Department Care Team (Late st Contact Info) Description 11/08/2024 Orders Only [facility] [place] [address] [facility] [address] [place] [phone] López Mariano MD [address] [place] [address] Social History Tobacco Use Types [...] Priority Date/Time Associated Diagnosis Comments HEMATOLOGY Routine 11/08/2024 documented in this encounter Results * (ABNORMAL) HEMATOLOGY (11/08/2024) Hemoglobin 10.4(L) 12.0 - 16.0 g/dL [facility] Hemoglobin x 3 31.2(L) 36.0 - 48.0 % [facility] 11/08/2024 11/09/2024 7:0 1 AM CDT Narrative [facility] - 11/09/2024 Unless otherwise specified, test(s) performed at: [facility], [address] [place] [address], [place] [address] VETERINARY TECHNICIAN: John Hernandez M.D., Ph.D For any questions, please call customer service at FREQUENCY:OTHER Resulting Agency Comment Specimen source: Blood us López Mariano MD LAB BLOOD ORDERABLES Final Re sult [facility] [employer] See order comments or contact performing lab Unknown, [place] documented in this encounter Visit Diagnoses Not on filedocumented in this encounter Care Teams Straddle Bug Relationship Specialty Start Date End Date Yudy Joya PA [address] [place] [address] PCP - General Family Medicine 06/01/24 documented as of this encounter
--- OUTSIDE RECORDS SUMMARY | 2024-11-19 10:28 | XMS_ITS | Encounter Summary ---
Author Organization [facility] Address [address] [place] [address] Care Team Providers Care Gyroscope Repairer Name Role Phone Haylee Alanis APRN, CNP Primary Care Provide r Encounter Details Date Type Department Care Team (Late st Contact Info) Description 03/31/2011 Correspondence External to External, [place] [address] [facility] SIGNATURE OF DELIVERY Social History Tobacco [...] on filedocumented in this encounter Care Teams Gyroscope Repairer Relationship Specialty Start Date End Date Haylee Alanis APRN, CNP [address] [place] [address] PCP - General Nurse Practitioner 02/04/16 documented as of this encounter
--- OUTSIDE RECORDS SUMMARY | 2024-11-19 10:28 | XMS_ITS | Encounter Summary ---
Author Organization [facility] Address [address] [place] [address] Care Team Providers Care Cigar Making Machine Operator Name Role Phone Yudy Joya Primary Care Provider [phone] Encounter Details Date Type Department Care Team (Late st Contact Info) Description 11/15/2024 Treatment [facility] [address] [place] [address] López Mariano MD [address] [place] [address] End stage renal disease; Dependence on renal dialysis Social History Tobacco Use Types Packs/Day Years Used Date Smoking Tobacco: Never Assessed Comments Unknown Sex and Gender Information Value Date Recorded Sex Assigned at Not on file Legal Sex Female 11:57 AM EST Gender Identity Not on file Sexual Orientation Not on file documented as of this encounter Miscellaneous Notes * Dialysis Note - López Mariano MD - 11/15/2024 12:00 AM CDT Patient: Stephanie Norman : 1965 Note Type: Dialysis Rounds-Comp Service Date: 11/15/2024 This patient was personally seen [id number] for a complete visit as part of routine monthly dialysis care for end stage renal disease. Attending Gleason Gear Generator: LÓPEZ MARIANO Dialysis Location: [facility] Schedule: Shift: 2 OVERVIEW COMMENTS: 11/15/24 MD: She is doing well but ongoing stable angina when she exerts herself like mowing the lawn or more vigorous activity. She has stress test in November and visit with stick feeder Dr. Siddiqui after this - discussed unstable angina symptoms and to go to ER if this occurs. 10/09/24 MD: EDW now 96 Kg, feels well at this weight. BP adequately controlled. Had c-scope done, hopes to be re-activated on Tx list, was called twice before going on temp hold. Getting iron, low. Hgb lower than usual. No new symptoms, feels excellent. RAMBO SUBJECTIVE: BULWARK CARPENTER 11/08/24: Feeling well. No complaints or concerns with HD. Reaching edw. States she may need a hernia repair, had an ultrasound yesterday and will have another one tomorrow. Need refill of torsemide - sent. BULWARK CARPENTER 10/04/24: Feeling well, had colonoscopy done recently as part of transplant evaluation. She reports she will have follow up tomorrow. Feels her edw should be at 96kg, has cramping if leaving under. No SOB or CP. BULWARK CARPENTER 08/23/24: Seen on HD. States she has no concerns or complaints, tolerating HD. Does have appt with vascular for a fistulagram next week. Denies any SOB or CP. Reaching edw. 08/14/24 PA: No complaints or concerns, reports tolerating HD well. Denies SOB, CP, cramping or dizziness. Higher than normal IDWG this weekend, will watch fluids this week. Has fistulogram set up d/t prolonged bleeding. BULWARK CARPENTER 07/05/2024: Spoke with patient on dialysis. Feeling well. BP stable. No breathing issues. Denies CP or cramping. She continues to wait for kidney. Currently listed at [facility] but will be transferring to [facility]. No changes today. PATIENT HISTORY COMMENTS: ADPKD HOME MEDICATIONS Medications reviewed. Current [facility] Outpatient Medications aspirin 81 mg tablet,chewable Take 1 tablet by mouth once a day. bupropion HCl 75 mg tablet once a day. [150 mg once a day] carvedilol 6.25 mg tablet Take 1/2 tablet by mouth twice a day. [1 tablet twice a day] citalopram 20 mg tablet Take 1 tablet by mouth once a day as directed. [Celexa - Take in the evening.] isosorbide mononitrate 10 mg tablet [30 mg once a day] Lipitor 40 mg tablet Take 1 tablet by mouth every evening. loratadine 10 mg tablet Take 1 tablet by mouth once a day. Nexium 20 mg capsule,delayed release(DR/EC) Take 1 capsule by mouth once a day. [for reflux] nitroglycerin 0.4 mg tablet, sublingual Take 1 tablet under tongue as needed. [for chest pain can repeat x2 every 5 mins for total of 3 doses as needed.] pramipexole 0.25 mg tablet Take 3 tablet by mouth as directed. [Take 2 tablets prior to HD on dialysis days. Take 1 tablet every night.] Sevelamer Carbonate Tablet 800 mg tablet Take 4 Tablet By Mouth Three times a day With Meals. torsemide 20 mg tablet Take 2 tablet by mouth twice a day. [2 tablets twice a day] trazodone 50 mg tablet Take 1 tablet by mouth at bedtime as needed. Current [facility] Allergies Allergen: Betadine Reaction: Flushing (Red Skin) Severity: Moderate Allergen: Mircera Reaction: C/O Being Hot Severity: Moderate Allergen: Mircera Reaction: Unknown Severity: Mild Allergen: neomycin Reaction: Skin Rash Allergen: Penicillins Reaction: Skin Rash DIALYSIS PRESCRIPTION Treatment Data Treatment Date: 11/15/2024 started at: 11:37 AM Dialysate / Machine Temp (prescribed): 37.0*C Dialysate / Machine Temp (actual): 37.1*C BFR (prescribed): 450 BFR (average delivered): 410 DFR (prescribed): Manual 800 DFR (average delivered): 800 Prescribed Time: 03:30 Actual Time: 03:23 EDW (kg): 95.4 Dialyzer: 180NRe Optiflux Dialysate: 2.0 K, 2.5 Ca, 1.0 Mg, 100 Dextrose (G2251) Sodium: 137 Bicarb: 31 Pre Dialysis Vitals Pre BP Sit: 148/71 Pre Wt (kg): 97.7 EDW Deviation (kg): 2.3 Temp: 97.5*F Post Dialysis Vitals Post BP Sit: 137/70 Post Wt (kg): 95.8 TREATMENT MEDICATIONS ORDERS Heparin Sodium (Porcine) 1,000 Units/mL Systemic 2000 units IVP Every Treatment 02/09/2024 - 02/07/2025 Heparin Sodium (Porcine) 1,000 Units/mL Systemic 3000 units IVP Every Treatment 01/28/2024 - 01/26/2025 Iron Sucrose (Venofer) 100 mg IVP 3X Week During Dialysis 11/06/2024 - 11/27/2024 Vitamin D (Calcitriol) Oral 0.50 mcg ORAL Every Treatment During Dialysis 10/13/2024 - 10/12/2025 BP AND FLUID ASSESSMENT Acceptable blood pressure. Fluid status acceptable. EDW appropriate. COMMENTS: BULWARK CARPENTER 10/04/24: Cramping when leaving under 96kg. Appear euvolemic today, will adjust edw. Post BP Sit 137/70 - 11/15/2024 151/58 - 11/13/2024 149/71 - 11/10/2024 Post Wt (kg) 95.8 - 11/15/2024 95.4 - 11/13/2024 95.4 - 11/10/2024 EDW (kg) 95.4 - 11/15/2024 95.6 - 11/13/2024 95.6 - 11/10/2024 Deviation (kg) 0.4 - 11/15/2024 -0.2 - 11/13/2024 -0.2 - 11/10/2024 ADEQUACY ASSESSMENT spKt/V (Daugirdas II) 1.49 (10/23/24) 1.63 (09/20/24) 1.37 (08/23/24) eKdrt/V 1.28 (10/23/24) 1.44 (09/20/24) 1.21 (08/23/24) % Urea Reduction 73 (10/23/24) 75 (09/20/24) 69 (08/23/24) BUN 51 (10/23/24) 46 (10/18/24) 52 (09/20/24) BUN Post Dialysis 14 (10/23/24) 13 (09/20/24) 17 (08/23/24) Creatinine 8.68 (10/18/24) 8.94 (09/20/24) 9.10 (08/23/24) Bicarbonate (CO2) 24 (10/23/24) 24 (09/20/24) 27 (08/23/24) Sodium 136 (10/23/24) 136 (09/20/24) 140 (08/23/24) Target met. Prescription compliance acceptable. Missed Treatments 0 - Last 30 days 0 - Last 60 days ACCESS ASSESSMENT Vascular access examined. AVF/AVG positive thrill/bruit. Current access is permanent and functioning well. AVFistula Standard Left Upper Arm Active (In Use) - 01/27/2021 Placed - 04/25/2019 Access Flow 1878 (10/23/24) ? 1999 (09/04/24) ? 1999 (07/05/24) ANEMIA ASSESSMENT Hemoglobin 10.4 (11/08/24) 9.7 (11/01/24) 10.9 (10/25/24) Iron Saturation (TSat) 16 (10/23/24) 32 (09/20/24) 24 (08/23/24) Ferritin 692 (08/23/24) 879 (05/24/24) 1,056 (02/23/24) Iron 35 (10/23/24) 73 (09/20/24) 61 (08/23/24) TIBC 221 (10/23/24) 230 (09/20/24) 254 (08/23/24) MCV 100 (10/18/24) 100 (09/20/24) 100 (08/23/24) Platelets 162 (10/18/24) 168 (09/20/24) 192 (08/23/24) Anemia targets met. Continue maintenance iron. BMM ASSESSMENT Calcium 9.1 10/23/24 9.4 09/20/24 9.3 08/23/24 Corrected Calcium 9.2 09/20/24 9.1 08/23/24 9.2 07/19/24 Phosphorus 4.6 10/23/24 4.8 09/20/24 4.1 08/23/24 Calcium Phosphorus Product 42 10/23/24 45 09/20/24 38 08/23/24 PTH 326 08/23/24 422 05/24/24 258 02/23/24 Magnesium 2.3 08/23/24 2.3 05/24/24 2.3 02/23/24 Alkaline Phosphatase 91 08/23/24 91 05/24/24 88 02/23/24 Aluminum ?5 02/23/24 PTH within target. Phosphorus controlled. Calcium controlled. Bone and mineral metabolism parameters reviewed. NUTRITION ASSESSMENT Albumin 4.2 10/18/24 4.2 09/20/24 4.2 08/23/24 Potassium 5.0 10/23/24 5.2 09/20/24 5.0 08/23/24 eNPCR 0.72 10/23/24 0.92 09/20/24 0.88 08/23/24 Albumin at goal. Potassium controlled. TRANSPLANT STATUS COMMENT COMMENTS: Now listed at [facility] Patient was on transplant list at [facility] as of Apr 2021 Possible living donors x2 (daughter, colleague at work) 06/2024: Transferring to [facility], this is in process BULWARK CARPENTER 11/08/24: States she is active on list at [facility]. PHYSICAL EXAM Exam performed. Vital Signs Reviewed. Lungs - Clear. CV - Blood pressure noted. CV - RRR. No edema. ADDITIONAL LABS WBC 5.43 (10/18/24) 5.73 (09/20/24) 5.73 (08/23/24) Hepatitis B Surface Ab 57 (03/01/24) Signed by: LÓPEZ MARIANO MD on 11/15/2024 at 04:32:46 PM Transcribed by: LÓPEZ MARIANO MD on 11/15/2024 at 04:32:46 PM documented in this encounter Plan of Treatment Not on file documented as of this encounter Visit Diagnoses Diagnosis End stage renal disease Dependence on renal dialysis documented in this encounter Care Teams Cigar Making Machine Operator Relationship Specialty Start Date End Date Yudy Joya PA [address] [place] [address] PCP - General Family Medicine 06/01/24 documented as of this encounter
--- OUTSIDE RECORDS SUMMARY | 2024-11-19 10:28 | XMS_ITS | Encounter Summary ---
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
--- OUTSIDE RECORDS SUMMARY | 2024-11-19 10:28 | XMS_ITS ---
Author Name [facility] Address [address] [place] [address] Phone [phone] Organization [facility] e, NA DOCUMENT DISCLAIMER Multiple document versions may exist, please be sure you review the latest version. The information in the [facility] Continuity of Care Document represents a summary of certain health and medical information. It may not contain the complete medical history for the patient and should be independently verified. The represented time in the document is Eastern Time. 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 [...] 2019 End stage renal disease N18.6 Active Ashishe mber 2018 ALLERGIES AND ADVERSE REACTIONS Substance [...] and Sex Information Gender Identity Sexual Orientation Female No Information Avail able MEDICATIONS Prescribed Medications for Dialysis Treatments Medication Instructions Dosage Route Start Date End Date Stat Acetaminophen PRN pain 650 mg Oral August 07, 2024 August 06, 2025 Active Acetaminophen During Dialysis, PRN 650 mg Oral June 16, 2024 June 15, 2025 Active Heparin Sodium (Porcine) 1,000 Units/mL Systemic Bolus, Every Treatment, Total treatment minutes 210 3000 units Intravenous - push January 28, 2024 January 26, 2025 Active Heparin Sodium (Porcine) 1,000 Units/mL Systemic Intermittent mid run, Every Treatment, Total treatment minutes 210 2000 units Intravenous - push February 09, 2024 February 07, 2025 Active Iron Sucrose (Venofer) During Dialysis, 3X Week 100 mg Intravenous - push November 06, 2024 November 27, 2024 Active Vitamin D (Calcitriol) Oral During Dialysis, Every Treatment 0.50 mcg Oral October 13, 2024 October 12, 2025 Active Iron Sucrose (Venofer) During Dialysis, 1X Week 50 mg Intravenous - push September 25, 2024 September 24, 2025 Discontinued Iron Sucrose (Venofer) During Dialysis, 3X Week 100 mg Intravenous - push October 30, 2024 November 20, 2024 Discontinued Home Medications Medication Instructions Dosage Route Start Date End Date Stat aspirin 81 mg Take by mouth once [...] 4 tablet ORAL February 02, 2023 Active Sevelamer Carbonate Tablet 800 mg Take By Mouth Three times a day With Meals 4 Tablet By Mouth July 22, 2024 July 21, 2025 Active torsemide 20 mg Take by mouth twice a day 2 tablet ORAL February 02, 2022 Active trazodone 50 mg Take by mouth at bedtime as needed 1 tablet ORAL April 24, 2020 Active VITAL SIGNS Post-Treatment Vital Signs Vital Sign Value Date / Time Blood Pressure-sitting 154/72 mmHg November 11:28 AM Blood Pressure-standing 149/68 mmHg November 11:28 AM Heart Rate 60 beats per minute November 17, 2 025 11:28 AM Respiratory Rate 16 breaths per minute November 11:28 AM Temperature 95.9 deg. F November 17, 2024 11:28 AM Weight Vital Sign Value Date / Time Estimated Dry Weight 95.4 kg November 13 11:59 PM Pre-Dialysis 97.50 kg November 17, 2024 11:28 AM Post-Dialysis 95.90 kg November 17, 2024 11:28 AM Other Other Value Date / Time Height 173 cm December 16, 2022 12:00 AM Body Mass Index 32.01 kg/m2 October 25, 2024 10 :49 PM [facility] LAB RESULTS Hematology Result Type Result Value Relevant Referen ce Range Interpretation Date Ferritin 879 ng/mL 10 - 291 ng/mL High May Transferrin Sat. (Calc) 23 % 20 - 55 % - May 24 TIBC 250 mcg/dL 185 - 515 mcg/dL - May 24, 2024 UIBC (Calc) 192 mcg/dL 155 - 355 mcg/dL - 2024 Platelets 209 1000/mcL 130 - 400 1000/mcL - 2024 WBC (No Diff) 7.66 1000/mcL 4.80 - 10.80 1000/mcL - May 24, 2024 Neutrophils 81.1 % 40.0 - 75.0 % High May UIBC (Calc) 179 mcg/dL 155 - 355 mcg/dL - June Platelets 206 1000/mcL 130 - 400 1000/mcL - Fredo h 2024 TIBC 235 mcg/dL 185 - 515 mcg/dL - June Transferrin Sat. (Calc) 24 % 20 - 55 % - June 21, 2024 WBC (No Diff) 7.15 1000/mcL 4.80 - 10.80 1000/mcL - June 21, 2024 Neutrophils 80.6 % 40.0 - 75.0 % High June 21, 2024 WBC (No Diff) 6.32 1000/mcL 4.80 - 10.80 1000/mcL - July 19, 2024 Neutrophils 77.9 % 40.0 - 75.0 % High July 19, 2024 Platelets 202 1000/mcL 130 - 400 1000/mcL - Apri 2024 Transferrin Sat. (Calc) 23 % 20 - 55 % - July 19, 2024 TIBC 252 mcg/dL 185 - 515 mcg/dL - July UIBC (Calc) 194 mcg/dL 155 - 355 mcg/dL - July Monocytes 5.6 % 3.0 - 10.0 % - August 23, 2024 Eosinophil 2.6 % 0.0 - 7.0 % - August 23, 2024 Neutrophils 76.5 % 40.0 - 75.0 % High August 23 Lymphocytes 12.6 % 19.0 - 48.0 % Low August 23 25 Basophils 1.1 % 0.0 - 1.5 % - August 23, 2024 MCH 32.2 pg 27.0 - 31.0 pg High August 23 Hemoglobin x 3 32.4 % 36.0 - 48.0 % Low August 23, 2024 MCHC 32.3 g/dL 30.0 - 36.0 g/dL - August 23, 2024 RDW 13.1 % 11.5 - 14.5 % - August 23 5 JESSICA 1.6 % 0.0 - 4.0 % - August 23, 2024 WBC (No Diff) 5.73 1000/mcL 4.80 - 10.80 1000/mcL - August 23, 2024 Platelets 192 1000/mcL 130 - 400 1000/mcL - August 23, 2024 Iron 61 mcg/dL 30 - 160 mcg/dL - August 23 025 UIBC (Calc) 193 mcg/dL 155 - 355 mcg/dL - August 23, 2024 Ferritin 692 ng/mL 10 - 291 ng/mL High August 23 25 TIBC 254 mcg/dL 185 - 515 mcg/dL - August 23, 2024 Transferrin Sat. (Calc) 24 % 20 - 55 % - August 23, 2024 Hemoglobin x 3 31.2 % 36.0 - 48.0 % Low August 30, 2024 Hemoglobin x 3 32.1 % 36.0 - 48.0 % Low September 13, 2024 WBC (No Diff) 5.73 1000/mcL 4.80 - 10.80 1000/mcL - September 20, 2024 JESSICA 1.5 % 0.0 - 4.0 % - September 20, 2024 Basophils 0.6 % 0.0 - 1.5 % - September 20, 2024 Eosinophil 2.6 % 0.0 - 7.0 % - September 20, 2024 MCH 32.5 pg 27.0 - 31.0 pg High September 20 RDW 13.8 % 11.5 - 14.5 % - September 20 MCHC 32.4 g/dL 30.0 - 36.0 g/dL - September 20, 2024 Monocytes 4.9 % 3.0 - 10.0 % - September 20 Lymphocytes 16.6 % 19.0 - 48.0 % Low September 20 Neutrophils 73.8 % 40.0 - 75.0 % - September 20 UIBC (Calc) 157 mcg/dL 155 - 355 mcg/dL - September TIBC 230 mcg/dL 185 - 515 mcg/dL - September 20, 2024 Iron 73 mcg/dL 30 - 160 mcg/dL - September 20, 2024 Transferrin Sat. (Calc) 32 % 20 - 55 % - September 20, 2024 Platelets 168 1000/mcL 130 - 400 1000/mcL - September 20, 2024 Hemoglobin x 3 31.5 % 36.0 - 48.0 % Low September Hemoglobin x 3 32.1 % 36.0 - 48.0 % Low September Hemoglobin x 3 29.7 % 36.0 - 48.0 % Low September Hemoglobin x 3 30.6 % 36.0 - 48.0 % Low September RDW 13.4 % 11.5 - 14.5 % - October 18 Hemoglobin x 3 31.5 % 36.0 - 48.0 % Low October Platelets 162 1000/mcL 130 - 400 1000/mcL - October 18, 2024 Neutrophils 74.5 % 40.0 - 75.0 % - October 18 Lymphocytes 15.0 % 19.0 - 48.0 % Low October 18 MCHC 33.4 g/dL 30.0 - 36.0 g/dL - October 18, 2024 MCH 33.2 pg 27.0 - 31.0 pg High Carolyn 02, 2 025 Eosinophil 2.6 % 0.0 - 7.0 % - October 18, 2024 Monocytes 4.9 % 3.0 - 10.0 % - October 18 JESSICA 1.7 % 0.0 - 4.0 % - October 18, 2024 Basophils 1.2 % 0.0 - 1.5 % - October 18, 2024 WBC (No Diff) 5.43 1000/mcL 4.80 - 10.80 1000/mcL - October 18, 2024 Iron 35 mcg/dL 30 - 160 mcg/dL - October 23, 2024 UIBC (Calc) 186 mcg/dL 155 - 355 mcg/dL - October TIBC 221 mcg/dL 185 - 515 mcg/dL - October 23, 2024 Transferrin Sat. (Calc) 16 % 20 - 55 % Low October 23, 2024 Hemoglobin x 3 32.7 % 36.0 - 48.0 % Low October HGB 10.9 g/dL 12.0 - 16.0 g/dL Low October 25, 2024 Hemoglobin x 3 29.1 % 36.0 - 48.0 % Low October HGB 9.7 g/dL 12.0 - 16.0 g/dL Low November 01, 2024 HGB 10.4 g/dL 12.0 - 16.0 g/dL Low November 08, 2024 Hemoglobin x 3 31.2 % 36.0 - 48.0 % Low October Hemoglobin x 3 30.0 % 36.0 - 48.0 % Low October HGB 10.0 g/dL 12.0 - 16.0 g/dL Low November 15, 2024 Metabolic/Renal Result Type Result Value Relevant Reference Range Interpre tation Date URR, Calc 69 % 65 - 80 % - August 23, 2024 BUN, Post 17 mg/dL 6 - 19 mg/dL - August 23, 2024 Potassium 5.0 mEq/L 3.5 - 5.1 mEq/L - August 23 Chloride 100 mEq/L 96 - 108 mEq/L - August 23 BUN/Creat Ratio 6.0 10.0 - 20.0 Low August 23, 2024 Sodium 140 mEq/L 136 - 145 mEq/L - August 23 025 Bicarbonate 27 mEq/L 20 - 31 mEq/L - August 23 BUN 55 mg/dL 6 - 19 mg/dL High August 23, 2024 Creatinine, Serum 9.10 mg/dL 0.60 - 1.30 mg/dL High August 23, 2024 BUN 66 mg/dL 6 - 19 mg/dL High August 28, 2024 Bicarbonate 24 mEq/L 20 - 31 mEq/L - September 20, 025 Potassium 5.2 mEq/L 3.5 - 5.1 mEq/L High September 20, 2024 Chloride 100 mEq/L 96 - 108 mEq/L - September 20, 025 BUN 52 mg/dL 6 - 19 mg/dL High September 20 Sodium 136 mEq/L 136 - 145 mEq/L - September 20, 2024 Creatinine, Serum 8.94 mg/dL 0.60 - 1.30 mg/dL High September 20, 2024 BUN/Creat Ratio 5.8 10.0 - 20.0 Low September 20, 2024 URR, Calc 75 % 65 - 80 % - September 20, 2024 BUN, Post 13 mg/dL 6 - 19 mg/dL - September 20 BUN 46 mg/dL 6 - 19 mg/dL High October 18 BUN/Creat Ratio 5.3 10.0 - 20.0 Low October 18, 2024 Creatinine, Serum 8.68 mg/dL 0.60 - 1.30 mg/dL High October 18, 2024 BUN, Post 14 mg/dL 6 - 19 mg/dL - October 23 URR, Calc 73 % 65 - 80 % - October 23, 2024 Bicarbonate 24 mEq/L 20 - 31 mEq/L - October 23, 025 Potassium 5.0 mEq/L 3.5 - 5.1 mEq/L - October 23, 2024 Chloride 100 mEq/L 96 - 108 mEq/L - October 23, 025 Sodium 136 mEq/L 136 - 145 mEq/L - October 23, 2024 BUN 51 mg/dL 6 - 19 mg/dL High October 23 HD Adequacy Result Type Result Value Relevant Referen ce Range Interpretation Date Krt/V 0.00 No Reference Ran ge Provided - May 24, 2024 Krt/V 0.00 No Reference Ran ge Provided - June 21, 2024 Krt/V 0.00 No Reference Ran ge Provided - July 19, 2024 wstdKt/V, residual 0.0 No Reference Range Provided - August 23, 2024 wstdKt/V 2.3 No Reference Ran ge Provided - August 23, 2024 Krt/V 0.00 No Reference Ran ge Provided - August 23, 2024 spKt/V (Daugirdas II) 1.37 No Reference Range Provided - August 23, 2024 eKt/V ([place]) 1.16 No Reference Range Provided - August 23, 2024 wstdKt/V without residual 2.3 No Reference Range Provided - August 23, 2024 spKt/V Gotch 1.44 No Reference Ran ge Provided - August 23, 2024 Krt/V 0.00 No Reference Ran ge Provided - September 20, 2024 spKt/V Gotch 1.70 No Reference Ran ge Provided - September 20, 2024 eKt/V ([place]) 1.40 No Reference Range Provided - September 20, 2024 wstdKt/V 2.5 No Reference Ran ge Provided - September 20, 2024 wstdKt/V without residual 2.5 No Reference Range Provided - September 20, 2024 spKt/V (Daugirdas II) 1.63 No Reference Range Provided - September 20, 2024 wstdKt/V, residual 0.0 No Reference Range Provided - September 20, 2024 wstdKt/V 2.4 No Reference Ran ge Provided - October 23, 2024 wstdKt/V, residual 0.0 No Reference Range Provided - October 23, 2024 spKt/V (Daugirdas II) 1.49 No Reference Range Provided - October 23, 2024 Krt/V 0.00 No Reference Ran ge Provided - October 23, 2024 wstdKt/V without residual 2.4 No Reference Range Provided - October 23, 2024 spKt/V Gotch 1.52 No Reference Ran ge Provided - October 23, 2024 eKt/V ([place]) 1.27 No Reference Range Provided - October 23, 2024 Bone/Mineral Result Type Result Value Relevant Referen ce Range Interpretation Date Magnesium 2.3 mg/dL 1.6 - 2.6 mg/dL - November Magnesium 2.3 mg/dL 1.6 - 2.6 mg/dL - February 23, 2024 Magnesium 2.3 mg/dL 1.6 - 2.6 mg/dL - May 24, 2024 PTH-Intact, Plasma 422 pg/mL 16 - 80 pg/mL High May PTH-Intact, Plasma 326 pg/mL 16 - 80 pg/mL High August 23, 2024 Phosphorus 4.1 mg/dL 2.6 - 4.5 mg/dL - August 23, 025 Calcium, Total 9.3 mg/dL 8.7 - 10.4 mg/dL - August 23, 2024 Corrected Ca x P Product 37 0 - - August 23, 2024 Magnesium 2.3 mg/dL 1.6 - 2.6 mg/dL - August 23, 025 Ca x P Product 38 0 - 54 - August 23, 20 25 Alkaline Phosphatase 91 U/L 35 - 104 U/L - 2024 Calcium, Total 9.4 mg/dL 8.7 - 10.4 mg/dL - September 20, 2024 Phosphorus 4.8 mg/dL 2.6 - 4.5 mg/dL High September 20, 2024 Ca x P Product 45 0 - - September 20, 025 Corrected Ca x P Product 44 0 - 54 - September 20, 2024 Calcium, Total 9.1 mg/dL 8.7 - 10.4 mg/dL - October 23, 2024 Phosphorus 4.6 mg/dL 2.6 - 4.5 mg/dL High October 23, 2024 Ca x P Product 42 0 - 54 - October 23, 2 025 Liver/Nutrition Result Type Result Value Relevant Reference Range Interpre tation Date eNPCR 0.88 No Reference Range Provided - August 23, 2024 Globulin (Calc) 2.5 g/dL 2.0 - 4.0 g/dL - August A/G Ratio 1.7 1.0 - 2.0 - August 23, 2024 Total Protein 6.7 g/dL 6.0 - 8.5 g/dL - August 23, 2024 Albumin (BCG) 4.2 g/dL 3.5 - 5.2 g/dL - August 23, 2024 Total Protein 6.8 g/dL 6.0 - 8.5 g/dL - September Albumin (BCG) 4.2 g/dL 3.5 - 5.2 g/dL - September A/G Ratio 1.6 1.0 - 2.0 - September 20, 2024 Globulin (Calc) 2.6 g/dL 2.0 - 4.0 g/dL - September 20, 2024 eNPCR 0.92 No Reference Range Provided - September 20, 2024 Total Protein 6.7 g/dL 6.0 - 8.5 g/dL - October A/G Ratio 1.7 1.0 - 2.0 - October 18, 2024 Globulin (Calc) 2.5 g/dL 2.0 - 4.0 g/dL - October 18, 2024 Albumin (BCG) 4.2 g/dL 3.5 - 5.2 g/dL - October eNPCR 0.72 No Reference Range Provided - October 23, 2024 Immunochemistry Result Type Result Value Relevant Reference Range Interpre tation Date HCV s/co ratio < 0.02 0.00 - 0.79 - October 18, 2024 Trace Elements Result Type Result Value Relevant Reference Range Interpre tation Date Aluminum < 5 mcg/L 0 - 10 mcg/L - February 23, 2024 Infectious Diseases Result Type Result Value Relevant Referen ce Range Interpretation Date Hep B Surface Ab (anti-HBs) 57 mIU/mL No Reference Range Provided - March 01, 2024 Hep B Surface Ag (HBsAg) Negative No Reference Range Provided - October 18, 2024 HCV Ab (anti-HCV) Nonreactive No Reference R ashley Provided - October 18, 2024 DIALYSIS PRESCRIPTION Conventional Hemodialysis Data Element Value Order Date/Time November 13, 2024 Frequency 3X Week Treatment Days MonWedFri Dialyzer 180NRe Optiflux Treatment Time (Total Minutes) 210 min Blood Flow Rate (mL/min) 450 mL/min Dialysate Flow Rate Manual 800 Estimated Dry Weight 95.4 kg Dialysate Concentrate 2.0 K, 2.5 Ca, 1.0 Mg, 100 Dextrose (G2251) Sodium (mEq/L) 137 mEq/L Bicarb Machine Setting (mEq/L) 31 mEq/L Dialysis Access Hemodialysis-AV Fist katharine-Standard, Left Upper Arm, Brachial Artery to Cephalic Vein Access Placed on April 25, 2019 Arterial Needle Size 15g1 Venous Needle Size 15g1 IMMUNIZATIONS Vaccine Date Dose Route Status Flu Vaccine - Flublok Trivalent February 02, 2024 0.5 mL Intramuscular Completed PREVNAR February 02, 2024 0.5 mL Intramuscular Compl eted COMIRNATY - COVID-19 Vaccine (Suninfo Information) March 12, 2023 0.3 mL Intramuscular Completed Flu Vaccine - Flublok Quadrivalent January 27, 2023 0.5 mL Intramuscular Completed Suninfo Information COVID-19 Vac cine, Bivalent, Booster January 26, 2022 0.3 mL Intramuscular Completed Moderna COVID-19 Vaccine, Booster February 28, 2021 0.25 m L Intramuscular Completed PREVNAR 13 August 21, 2020 0.5 mL Intramuscular Completed Moderna COVID-19 Vaccine, Do se 2 of 2 June 10, 2020 0.5 mL Intramuscular Completed Moderna COVID-19 Vaccine, Do se 1 of 2 May 17, 2020 0.5 mL Intramuscular Completed [id number], series 4 of August 23, 2019 40.0 mcg Int ramuscular Completed [id number], series 3 of April 25, 2019 40.0 mcg Intramuscular Completed WOTAXFS-F-[id number], series 2 of March 25, 2019 40.0 mcg Intramuscular Completed [id number]-UYTED, series 1 of February 22, 2019 40.0 mcg Intramuscular Completed TRANSPLANT WAITLIST STATUS No Information on Transplant Waitlist Status ADVANCE DIRECTIVES Directive Description Ordered By Effective Date Resuscitation status Full Code López García Mar 31, 2024 DIALYSIS TREATMENTS Conventional Hemodialysis Date Pre-Treatment Vitals Post-Treatment Analia ls Duration (hr) BFR (mL/min) Dialysate Dialyzer Dialysis Access Meds Admin November 13, 2024 Weight 97.90 kg Weight 95.40 kg 03:27:00 450 2.0 K, 2.5 Ca, 1.0 Mg, 100 Dextrose (G2251) 180nre Optifl ux Blood Pressure-sitting 156/74 mmHg Blood Pressure-sit ting 151/58 mmHg Blood Pressure-standing 161/74 mmHg Blood Pressure-st anding 158/54 mmHg Heart Rate 65 beats per minute Heart Rate 66 beats per minute Respiratory Rate 16 breaths per minute Respiratory Rate 16 breaths per minute Temperature 98.2 deg. F Temperature 97.2 deg. F November 15, 2024 Weight 97.70 kg Weight 95.80 kg 03:23:00 410 2.0 K, 2.5 Ca, 1.0 Mg, 100 Dextrose (G2251) 180nre Optiflux Hemodialysis-AV Fistula-Standard, Left Upper Arm, Brachial Artery to Cephalic Vein Access Placed on April 25, 2019 Heparin Sodium (Porcine) 1,000 Units/mL Systemic; 3000units,Intravenous - push Heparin Sodium (Porcine) 1,000 Units/mL Systemic; 2000units,Intravenous - push Vitamin D (Calcitriol) Oral; 0.50mcg,Oral Blood Pressure-sitting 148/71 mmHg Blood Pressure-sit ting 137/70 mmHg Blood Pressure-standing 131/57 mmHg Blood Pressure-st anding 128/60 mmHg Heart Rate 68 beats per minute Heart Rate 66 beats per minute Respiratory Rate 14 breaths per minute Respiratory Rate 15 breaths per minute Temperature 97.5 deg. F Temperature 97.2 deg. F November 17, 2024 Weight 97.50 kg Weight 95.90 kg 03:26:00 450 2.0 K, 2.5 Ca, 1.0 Mg, 100 Dextrose (G2251) 180nre Optiflux Hemodialysis-AV Fistula-Standard, Left Upper Arm, Brachial Artery to Cephalic Vein Access Placed on April 25, 2019 Acetaminophen; 650mg,Oral Heparin Sodium (Porcine) 1,000 Units/mL Systemic; 3000units,Intravenous - push Heparin Sodium (Porcine) 1,000 Units/mL Systemic; 2000units,Intravenous - push Iron Sucrose (Venofer); 100mg,Intravenous - push Vitamin D (Calcitriol) Oral; 0.50mcg,Oral Blood Pressure-sitting 139/73 mmHg Blood Pressure-sit ting 154/72 mmHg Blood Pressure-standing 150/71 mmHg Blood Pressure-st anding 149/68 mmHg Heart Rate 61 beats per minute Heart Rate 60 beats per minute Respiratory Rate 16 breaths per minute Respiratory Rate 16 breaths per minute Temperature 97.7 deg. F Temperature 95.9 deg. F
--- OUTSIDE RECORDS SUMMARY | 2024-11-19 10:28 | XMS_ITS | Encounter Summary ---
Author Organization [facility] Address [address] [place] [address] Care Team Providers Care Broke Worker Name Role Phone Yudy Joya Primary Care Provider [phone] Encounter Details Date Type Department Care Team (Late st Contact Info) Description 11/01/2024 Orders Only [facility] [place] [address] [facility] [address] [place] [phone] López Mariano MD [address] [place] [address] Social History Tobacco Use Types [...] Priority Date/Time Associated Diagnosis Comments HEMATOLOGY Routine 11/01/2024 documented in this encounter Results * (ABNORMAL) HEMATOLOGY (11/01/2024) Hemoglobin 9.7(L) 12.0 - 16.0 g/dL [facility] Hemoglobin x 3 29.1(L) 36.0 - 48.0 % [facility] 11/01/2024 11/02/2024 1:5 7 PM CDT Narrative [facility] - 11/02/2024 Unless otherwise specified, test(s) performed at: [facility], [address] [place] [address], [place] [address] INCOME TAX ADJUSTER: John Hernandez M.D., Ph.D For any questions, please call customer service at FREQUENCY:OTHER Resulting Agency Comment Specimen source: Blood us López Mariano MD LAB BLOOD ORDERABLES Final Re sult [facility] See order comments or contact performing lab Unknown, [place] documented in this encounter Visit Diagnoses Not on filedocumented in this encounter Care Teams Broke Worker Relationship Specialty Start Date End Date Yudy Joya PA [address] [place] [address] PCP - General Family Medicine 06/01/24 documented as of this encounter
--- OUTSIDE RECORDS SUMMARY | 2024-11-19 10:28 | XMS_ITS | Encounter Summary ---
Author Organization [facility] Address [address] [place] [address] Care Team Providers Care Office Electrician Name Role Phone Yudy Joya Primary Care Provider [phone] Encounter Details Date Type Department Care Team (Late st Contact Info) Description 10/04/2024 Orders Only [facility] [place] [address] [facility] [address] [place] [phone] López Mariano MD [address] [place] [address] Social History Tobacco Use Types [...] Priority Date/Time Associated Diagnosis Comments HEMATOLOGY Routine 10/04/2024 documented in this encounter Results * (ABNORMAL) HEMATOLOGY (10/04/2024) Hemoglobin 9.9(L) 12.0 - 16.0 g/dL [facility] Hemoglobin x 3 29.7(L) 36.0 - 48.0 % [facility] 10/04/2024 10/06/2024 3:0 2 AM CDT Narrative [facility] - 10/06/2024 Unless otherwise specified, test(s) performed at: [facility], [address] [place] [address], [place] [address] MAILROOM ASSISTANT: John Hernandez M.D., Ph.D For any questions, please call customer service at FREQUENCY:OTHER Resulting Agency Comment Specimen source: Blood us López Mariano MD LAB BLOOD ORDERABLES Final Re sult [facility] See order comments or contact performing lab Unknown, [place] documented in this encounter Visit Diagnoses Not on filedocumented in this encounter Care Teams Office Electrician Relationship Specialty Start Date End Date Yudy Joya PA [address] [place] [address] PCP - General Family Medicine 06/01/24 documented as of this encounter
--- OUTSIDE RECORDS SUMMARY | 2024-11-19 10:28 | XMS_ITS | Encounter Summary ---
Author Organization [facility] Address [address] [place] [address] Care Team Providers Care Utility Systems Repairer Operator Name Role Phone Haylee Alanis APRN, CNP Primary Care Provide r Encounter Details Date Type Department Care Team (Latest Contact Info) Description 04/10/1997 Orders Only [facility], [address] [place] [place], [place] [phone] Social History Tobacco Use Types Packs/Day Years [...] filedocumented in this encounter Care Teams Utility Systems Repairer Operator Relationship Specialty Start Date End Date Haylee Alanis APRN, CNP [address] [place] [address] PCP - General Nurse Practitioner 02/04/16 documented as of this encounter
--- OUTSIDE RECORDS SUMMARY | 2024-11-19 10:28 | XMS_ITS | Encounter Summary ---
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
--- OUTSIDE RECORDS SUMMARY | 2024-11-19 10:28 | XMS_ITS | Encounter Summary ---
Author Organization [facility] Address [address] [place] [address] Care Team Providers Care Heating And Air Conditioning Mechanic Name Role Phone Yudy Joya Primary Care Provider +1 [phone] Encounter Details Date Type Department Care Team (Late st Contact Info) Description 10/04/2024 Treatment [facility] [place] [address] [place] [address] Kitty Erwin APRN-CNP [address] [place] [address] End stage renal disease; Dependence on renal dialysis Social History Tobacco Use Types Packs/Day Years Used Date Smoking Tobacco: Never Assessed Comments Unknown Sex and Gender Information Value Date Recorded Sex Assigned at Not on file Legal Sex Female 11:57 AM EST Gender Identity Not on file Sexual Orientation Not on file documented as of this encounter Miscellaneous Notes * Dialysis Note - Kitty Erwin APRN-CNP - 10/04/2024 12:00 AM CDT Patient: Stephanie Norman : 1965 Note Type: Dialysis Rounds-Comp Service Date: 10/04/2024 This patient was personally seen for a complete visit as part of routine monthly dialysis care for end stage renal disease. Attending Wader Boot Top Assembler: GUILLE PAULINO Dialysis Location: [facility] Schedule: Shift: 2 OVERVIEW COMMENTS: 08/25/24: Doing well on HD. Had Tx testing at [facility] yesterday, went well. No new issues since SMOKE ROOM OPERATOR visit. 08/09/24 MD: She is doing well, no new concerns. BP at goal. Reaching EDW. No cramps. Only issue is minor bleeding after treatments once back at home last 2 weeks. 07/07/24 MD: Doing well, no new symptoms, no new concerns. Tendinitis in elbow, doing exercises and wearing brace. BP stable. Reaching EDW by end of week consistently. 06/14/24 MD: Ongoing issues with RLS for lats 15-30 min of treatment especially. BFR reduced to 400 to see if this helps, if not will reduce time to [id number]. RAMBO SUBJECTIVE: SMOKE ROOM OPERATOR 10/04/24: Feeling well, had colonoscopy done recently as part of transplant evaluation. She reports she will have follow up tomorrow. Feels her edw should be at 96kg, has cramping if leaving under. No SOB or CP. SMOKE ROOM OPERATOR 08/23/24: Seen on HD. States she has [...] Has fistulogram set up d/t prolonged bleeding. SMOKE ROOM OPERATOR 07/05/2024: Spoke with patient on dialysis. Feeling well. BP stable. No breathing issues. Denies CP or cramping. She continues to wait for kidney. Currently listed at [facility] but will be transferring to [facility]. No changes today. PATIENT HISTORY COMMENTS: ADPKD HOME MEDICATIONS Medications reviewed. [facility] Medications aspirin 81 mg tablet,chewable Take [...] by mouth at bedtime as needed. Current [facility] Allergies Allergen: Betadine Reaction: Flushing (Red Skin) Severity: Moderate Allergen: Mircera Reaction: C/O Being Hot Severity: Moderate Allergen: Mircera Reaction: Unknown Severity: Mild Allergen: neomycin Reaction: Skin Rash Allergen: Penicillins Reaction: Skin Rash DIALYSIS PRESCRIPTION Treatment Data Treatment Date: 10/04/2024 started at: 11:37 AM Dialysate / Machine Temp (prescribed): 37.0*C Dialysate / Machine Temp (actual): 37.0*C BFR (prescribed): 450 BFR (actual): 450 DFR (prescribed): Manual 800 DFR (actual): 800 Prescribed Time: 03:30 EDW (kg): 95.1 Dialyzer: 180NRe Optiflux Dialysate: 2.0 K, 2.5 Ca, 1.0 Mg, 100 Dextrose (G2251) Sodium: 137 Bicarb: 31 Pre Dialysis Vitals Pre BP Sit: 127/52 Pre Wt (kg): 98.3 EDW Deviation (kg): 3.2 Temp: 98.3*F Current Dialysis Vitals BP Sit: 151/70 AP/HAZMAT TRUCK DRIVER: 222/191 Pulse: 59 TREATMENT MEDICATIONS ORDERS Heparin Sodium (Porcine) 1,000 Units/mL Systemic 2000 units IVP Every Treatment 02/09/2024 - 02/07/2025 Heparin Sodium (Porcine) 1,000 Units/mL Systemic 3000 units IVP Every Treatment 01/28/2024 - 01/26/2025 Iron Sucrose (Venofer) 50 mg IVP 1X Week During Dialysis 09/25/2024 - 09/24/2025 Vitamin D (Calcitriol) Oral 0.50 mcg ORAL Every Treatment During Dialysis 11/29/2023 - 11/27/2024 BP AND FLUID ASSESSMENT Acceptable blood pressure. EDW adjusted. COMMENTS: SMOKE ROOM OPERATOR 10/04/24: Cramping when leaving under 96kg. Appear euvolemic today, will adjust edw. Post BP Sit 139/66 - 10/02/2024 128/59 - 09/29/2024 161/86 - 09/27/2024 Post Wt (kg) 95.8 - 10/02/2024 94.8 - 09/29/2024 95.5 - 09/27/2024 EDW (kg) 95.1 - 10/02/2024 95.1 - 09/29/2024 95.1 - 09/27/2024 Deviation (kg) 0.7 - 10/02/2024 -0.3 - 09/29/2024 0.4 - 09/27/2024 ADEQUACY ASSESSMENT spKt/V (Daugirdas II) 1.63 (09/20/24) 1.37 (08/23/24) 1.54 (07/19/24) eKdrt/V 1.44 (09/20/24) 1.21 (08/23/24) 1.33 (07/19/24) % Urea Reduction 75 (09/20/24) 69 (08/23/24) 73 (07/19/24) BUN 52 (09/20/24) 66 (08/28/24) 55 (08/23/24) BUN Post Dialysis 13 (09/20/24) 17 (08/23/24) 12 (07/19/24) Creatinine 8.94 (09/20/24) 9.10 (08/23/24) 9.11 (07/19/24) Bicarbonate (CO2) 24 (09/20/24) 27 (08/23/24) 25 (07/19/24) Sodium 136 (09/20/24) 140 (08/23/24) 137 (07/19/24) Target met. Prescription compliance acceptable. Missed Treatments 0 - Last 30 days 0 - Last 60 days ACCESS ASSESSMENT Vascular access examined. COMMENTS: 08/09/24 MD: send for fistulagram at [facility] for bleeding after dialysis AVFistula Standard Left Upper Arm Active (In Use) - 01/27/2021 Placed - 04/25/2019 Access Flow > 2000 (09/04/24) > 2000 (07/05/24) 202 (05/31/24) ANEMIA ASSESSMENT Hemoglobin 10.7 (09/27/24) 10.5 (09/20/24) 10.7 (09/13/24) Iron Saturation (TSat) 32 (09/20/24) 24 (08/23/24) 23 (07/19/24) Ferritin 692 (08/23/24) 879 (05/24/24) 1,056 (02/23/24) Iron 73 (09/20/24) 61 (08/23/24) 58 (07/19/24) TIBC 230 (09/20/24) 254 (08/23/24) 252 (07/19/24) MCV 100 (09/20/24) 100 (08/23/24) 101 (07/19/24) Platelets 168 (09/20/24) 192 (08/23/24) 202 (07/19/24) Anemia targets met. Hemoglobin at target. BMM ASSESSMENT Calcium 9.4 09/20/24 9.3 08/23/24 9.3 07/19/24 Corrected Calcium 9.2 09/20/24 9.1 08/23/24 9.2 07/19/24 Phosphorus 4.8 09/20/24 4.1 08/23/24 4.1 07/19/24 Calcium Phosphorus Product 45 09/20/24 38 08/23/24 38 07/19/24 PTH 326 08/23/24 422 05/24/24 258 02/23/24 Magnesium 2.3 08/23/24 2.3 05/24/24 2.3 02/23/24 Alkaline Phosphatase 91 08/23/24 91 05/24/24 88 02/23/24 Aluminum <5 02/23/24 PTH within target. Phosphorus controlled. Calcium controlled. Bone and mineral metabolism parameters reviewed. NUTRITION ASSESSMENT Albumin 4.2 09/20/24 4.2 08/23/24 4.1 07/19/24 Potassium 5.2 09/20/24 5.0 08/23/24 5.0 07/19/24 eNPCR 0.92 09/20/24 0.88 08/23/24 0.78 07/19/24 Albumin at goal. Potassium controlled. TRANSPLANT STATUS COMMENT COMMENTS: Patient is on transplant list at [facility] as of Apr 2021 Possible living donors x2 (daughter, colleague at work) 06/2024: Transferring to [facility], this is in process PHYSICAL EXAM Exam performed. Vital Signs Reviewed. Lungs - Clear. CV - Blood pressure noted. CV - RRR. No edema. VISIT DIAGNOSES Z99.2 Dependence on renal dialysis N18.6 End stage renal disease ADDITIONAL LABS WBC 5.73 (09/20/24) 5.73 (08/23/24) 6.32 (07/19/24) Hepatitis B Surface Ab 57 (03/01/24) Signed by: KITTY ERWIN APRN-CNP on 10/04/2024 at 01:22:37 PM Transcribed by: KITTY ERWIN APRN-CNP on 10/04/2024 at 01:22:37 PM documented in this encounter Plan of Treatment Not on file documented as of this encounter Visit Diagnoses Diagnosis End stage renal disease Dependence on renal dialysis documented in this encounter Care Teams Heating And Air Conditioning Mechanic Relationship Specialty Start Date End Date Yudy Joya PA [address] [place] [address] PCP - General Family Medicine 06/01/24 documented as of this encounter
--- OUTSIDE RECORDS SUMMARY | 2024-11-19 10:28 | XMS_ITS | Encounter Summary ---
Author Organization [facility] Address [address] [place] [address] Care Team Providers Care Landscape Maintenance Internship Name Role Phone Yudy Joya Primary Care Provider [phone] [phone] Encounter Details Date Type Department Care Team (Late st Contact Info) Description 10/09/2024 Treatment [facility] [place] [address] [place] [address] López Mariano MD [address] [place] [address] End stage renal disease; Dependence [...] Dialysis Note - López Mariano MD - 10/09/2024 12:00 AM CDT Patient: Stephanie Norman : 1965 Note Type: Dialysis Rounds-Comp Service Date: 10/09/2024 This patient was personally seen for a complete visit as part of routine monthly dialysis care for end stage renal disease. Attending Rn Hospital: LÓPEZ MARIANO Dialysis Location: [facility] Schedule: Shift: 2 OVERVIEW COMMENTS: 10/09/24 MD: EDW now 96 Kg, feels well at this weight. BP adequately controlled. Had c-scope done, hopes to be re-activated on Tx list, was called twice before going on temp hold. Getting iron, low. Hgb lower than usual. No new symptoms, feels excellent. RAMBO SUBJECTIVE: FINANCIAL SOLUTIONS ADVISOR 10/04/24: Feeling well, had colonoscopy done recently as part of transplant evaluation. She reports she will have follow up tomorrow. Feels her edw should be at 96kg, has cramping if leaving under. No SOB or CP. FINANCIAL SOLUTIONS ADVISOR 08/23/24: Seen on HD. States she has [...] Has fistulogram set up d/t prolonged bleeding. FINANCIAL SOLUTIONS ADVISOR 07/05/2024: Spoke with patient on dialysis. Feeling well. BP stable. No breathing issues. Denies CP or cramping. She continues to wait for kidney. Currently listed at [facility] but will be transferring to [facility]. No changes today. PATIENT HISTORY COMMENTS: ADPKD HOME MEDICATIONS Medications reviewed. Current [facility] Outpatient Medications aspirin 81 mg tablet,chewable [...] by mouth at bedtime as needed. [facility] Allergen: Betadine Reaction: Flushing (Red Skin) Severity: Moderate Allergen: Mircera Reaction: C/O Being Hot Severity: Moderate Allergen: Mircera Reaction: Unknown Severity: Mild Allergen: neomycin Reaction: Skin Rash Allergen: Penicillins Reaction: Skin Rash DIALYSIS PRESCRIPTION Treatment Data Treatment Date: 10/09/2024 started at: 11:26 AM Dialysate / Machine Temp (prescribed): 37.0*C Dialysate / Machine Temp (actual): 37.0*C BFR (prescribed): 450 BFR (actual): 450 DFR (prescribed): Manual 800 DFR (actual): 800 Prescribed Time: 03:30 EDW (kg): 96.0 Dialyzer: 180NRe Optiflux Dialysate: 2.0 K, 2.5 Ca, 1.0 Mg, 100 Dextrose (G2251) Sodium: 137 Bicarb: 31 Pre Dialysis Vitals Pre BP Sit: 161/86 Pre Wt (kg): 98.6 EDW Deviation (kg): 2.6 Temp: 97.8*F Current Dialysis Vitals BP Sit: 153/69 AP/EDITOR MANAGING DIRECTOR: 208/196 Pulse: 57 TREATMENT MEDICATIONS ORDERS Heparin Sodium (Porcine) 1,000 [...] pressure. Fluid status acceptable. EDW appropriate. COMMENTS: FINANCIAL SOLUTIONS ADVISOR 10/04/24: Cramping when leaving under 96kg. Appear euvolemic today, will adjust edw. Post BP Sit 161/69 - 10/06/2024 149/65 - 10/04/2024 139/66 - 10/02/2024 Post Wt (kg) 95.8 - 10/06/2024 95.1 - 10/04/2024 95.8 - 10/02/2024 EDW (kg) 96.0 - 10/06/2024 95.1 - 10/04/2024 95.1 - 10/02/2024 Deviation (kg) -0.2 - 10/06/2024 0.0 - 10/04/2024 0.7 - 10/02/2024 ADEQUACY ASSESSMENT spKt/V (Daugirdas II) 1.63 (09/20/24) [...] Current access is permanent and functioning well. COMMENTS: 08/09/24 MD: send for fistulagram at [facility] for bleeding after dialysis AVFistula Standard Left Upper Arm Active (In Use) - 01/27/2021 Placed - 04/25/2019 Access Flow > 2000 (09/04/24) > 2000 (07/05/24) 202 (05/31/24) ANEMIA ASSESSMENT Hemoglobin 9.9 (10/04/24) 10.7 (09/27/24) 10.5 (09/20/24) Iron Saturation (TSat) 32 (09/20/24) 24 (08/23/24) 23 (07/19/24) Ferritin 692 (08/23/24) 879 (05/24/24) 1,056 (02/23/24) Iron 73 (09/20/24) 61 (08/23/24) 58 (07/19/24) TIBC 230 (09/20/24) 254 (08/23/24) 252 (07/19/24) MCV 100 (09/20/24) 100 (08/23/24) 101 (07/19/24) Platelets 168 (09/20/24) 192 (08/23/24) 202 (07/19/24) Anemia targets not met. Iron deficiency noted. Continue maintenance iron. BMM ASSESSMENT Calcium 9.4 09/20/24 9.3 08/23/24 [...] COMMENTS: Patient is on transplant list at [facility] as of Apr 2021 Possible living donors x2 (daughter, colleague at work) 06/2024: Transferring to [facility], this is in process PHYSICAL EXAM Exam performed. Vital Signs Reviewed. Lungs - Clear. CV - Blood pressure noted. CV - RRR. No edema. ADDITIONAL LABS WBC 5.73 (09/20/24) 5.73 (08/23/24) 6.32 (07/19/24) Hepatitis B Surface Ab 57 (03/01/24) Signed by: LÓPEZ MARIANO MD on 10/09/2024 at 02:46:03 PM Transcribed by: LÓPEZ MARIANO MD on 10/09/2024 at 02:46:03 PM documented in this encounter Plan of Treatment Not on file documented as of this encounter Visit Diagnoses Diagnosis End stage renal disease Dependence on renal dialysis documented in this encounter Care Teams Landscape Maintenance Internship Relationship Specialty Start Date End Date Yudy Joya PA [address] [place] [address] PCP - General Family Medicine 06/01/24 documented as of this encounter
--- OUTSIDE RECORDS SUMMARY | 2024-11-19 10:28 | XMS_ITS | Encounter Summary ---
Author Organization [facility] Address [address] [place] [address] Care Team Providers Care Cistern Room Working Supervisor Name Role Phone Yudy Joya Primary Care Provider [phone] [phone] Encounter Details Date Type Department Care Team (Late st Contact Info) Description 11/08/2024 Treatment [facility] [place] [address] [place] [address] Kitty Erwin APRN-CNP [address] [place] [address] End stage renal disease; Dependence [...] Dialysis Note - Kitty Erwin APRN-CNP - 11/08/2024 12:00 AM CDT Patient: Stephanie Norman : 1965 Note Type: Dialysis Rounds-Comp Service Date: 11/08/2024 This patient was personally seen for a complete visit as part of routine monthly dialysis care for end stage renal disease. Attending Personnel Adviser: GUILLE PAULINO Dialysis Location: [facility] Schedule: Shift: 2 OVERVIEW COMMENTS: 10/09/24 MD: EDW now 96 Kg, feels well at this weight. BP adequately controlled. Had c-scope done, hopes to be re-activated on Tx list, was called twice before going on temp hold. Getting iron, low. Hgb lower than usual. No new symptoms, feels excellent. RAMBO SUBJECTIVE: SPRAY WORKER 11/08/24: Feeling well. No complaints or concerns with HD. Reaching edw. States she may need a hernia repair, had an ultrasound yesterday and will have another one tomorrow. Need refill of torsemide - sent. SPRAY WORKER 10/04/24: Feeling well, had colonoscopy done recently as part of transplant evaluation. She reports she will have follow up tomorrow. Feels her edw should be at 96kg, has cramping if leaving under. No SOB or CP. SPRAY WORKER 08/23/24: Seen on HD. States she has [...] Has fistulogram set up d/t prolonged bleeding. SPRAY WORKER 07/05/2024: Spoke with patient on dialysis. Feeling well. BP stable. No breathing issues. Denies CP or cramping. She continues to wait for kidney. Currently listed at [facility] but will be transferring to [facility]. No changes today. PATIENT HISTORY COMMENTS: ADPKD HOME MEDICATIONS Medications reviewed. Current [facility] Medications aspirin 81 mg tablet,chewable Take [...] by mouth at bedtime as needed. Current [facility] Allergies Allergen: Betadine Reaction: Flushing (Red Skin) Severity: Moderate Allergen: Mircera Reaction: C/O Being Hot Severity: Moderate Allergen: Mircera Reaction: Unknown Severity: Mild Allergen: neomycin Reaction: Skin Rash Allergen: Penicillins Reaction: Skin Rash DIALYSIS PRESCRIPTION Treatment Data Treatment Date: 11/08/2024 started at: 11:21 AM Dialysate / Machine Temp (prescribed): 37.0*C Dialysate / Machine Temp (actual): 37.0*C BFR (prescribed): 450 BFR (actual): 450 DFR (prescribed): Manual 800 DFR (actual): 800 Prescribed Time: 03:30 EDW (kg): 95.7 Dialyzer: 180NRe Optiflux Dialysate: 2.0 K, 2.5 Ca, 1.0 Mg, 100 Dextrose (G2251) Sodium: 137 Bicarb: 31 Pre Dialysis Vitals Pre BP Sit: 158/69 Pre Wt (kg): 98.2 EDW Deviation (kg): 2.5 Temp: 97.5*F Current Dialysis Vitals BP Sit: 135/67 AP/CASEWORKER PROTECTIVE SERVICES: 208/195 Pulse: 64 TREATMENT MEDICATIONS ORDERS Heparin Sodium (Porcine) 1,000 Units/mL Systemic 2000 units IVP Every Treatment 02/09/2024 - 02/07/2025 Heparin Sodium (Porcine) 1,000 Units/mL Systemic 3000 units IVP Every Treatment 01/28/2024 - 01/26/2025 Iron Sucrose (Venofer) 100 mg IVP 3X Week During Dialysis 11/06/2024 - 11/27/2024 Vitamin D (Calcitriol) Oral 0.50 mcg ORAL Every Treatment During Dialysis 10/13/2024 - 10/12/2025 BP AND FLUID ASSESSMENT Fluid status acceptable. EDW appropriate. COMMENTS: SPRAY WORKER 10/04/24: Cramping when leaving under 96kg. Appear euvolemic today, will adjust edw. Post BP Sit 185/74 - 11/06/2024 127/64 - 11/03/2024 161/78 - 11/01/2024 Post Wt (kg) 96.1 - 11/06/2024 95.2 - 11/03/2024 95.7 - 11/01/2024 EDW (kg) 95.7 - 11/06/2024 95.7 - 11/03/2024 95.7 - 11/01/2024 Deviation (kg) 0.4 - 11/06/2024 -0.5 - 11/03/2024 0.0 - 11/01/2024 ADEQUACY ASSESSMENT spKt/V (Daugirdas II) 1.49 (10/23/24) [...] COMMENTS: 08/09/24 MD: send for fistulagram at [facility] for bleeding after dialysis AVFistula Standard Left Upper Arm Active (In Use) - 01/27/2021 Placed - 04/25/2019 Access Flow 1878 (10/23/24) > 1999 (09/04/24) > 1999 (07/05/24) ANEMIA ASSESSMENT Hemoglobin 9.7 (11/01/24) 10.9 (10/25/24) 10.5 (10/18/24) Iron Saturation (TSat) 16 (10/23/24) 32 (09/20/24) 24 (08/23/24) Ferritin 692 (08/23/24) 879 (05/24/24) 1,056 (02/23/24) Iron 35 (10/23/24) 73 (09/20/24) 61 (08/23/24) TIBC 221 (10/23/24) 230 (09/20/24) 254 (08/23/24) MCV 100 (10/18/24) 100 (09/20/24) 100 (08/23/24) Platelets 162 (10/18/24) 168 (09/20/24) 192 (08/23/24) Anemia targets not met. Hemoglobin not at target. Iron adjusted per protocol. Continue maintenance iron. COMMENTS: SPRAY WORKER 11/08/24: Drop in Hgb, denies any obvious blood loss. Crit line shows Hgb ~10.4. BMM ASSESSMENT Calcium 9.1 10/23/24 9.4 09/20/24 [...] COMMENTS: Patient is on transplant list at [place] as of Apr 2021 Possible living donors x2 (daughter, colleague at work) 06/2024: Transferring to [facility], this is in process SPRAY WORKER 11/08/24: States she is active on list at [facility]. PHYSICAL EXAM Exam performed. Vital Signs Reviewed. CV - Blood pressure noted. CV - RRR. No edema. VISIT DIAGNOSES Z99.2 Dependence on renal dialysis N18.6 End stage renal disease ADDITIONAL LABS WBC 5.43 (10/18/24) 5.73 (09/20/24) 5.73 (08/23/24) Hepatitis B Surface Ab 57 (03/01/24) Signed by: KITTY ERWIN APRN-CNP on 11/08/2024 at 11:56:45 AM Transcribed by: KITTY ERWIN APRN-CNP on 11/08/2024 at 11:56:45 AM documented in this encounter Plan of Treatment Not on file documented as of this encounter Visit Diagnoses Diagnosis End stage renal disease Dependence on renal dialysis documented in this encounter Care Teams Cistern Room Working Supervisor Relationship Specialty Start Date End Date Yudy Joya PA [address] [place] [address] PCP - General Family Medicine 06/01/24 documented as of this encounter
--- NOTE | 2024-11-19 10:53 | ED.GENADULT ---
HPI - General Adult General Chief complaint: Chest Pain Stated complaint: Heart Pain x's 2 Days Time Seen by Provider: 11/19/24 10:52 History of Present Illness HPI narrative: Pt states has intermittent angina in the past. Last 2 days, chest pains that have not resolved, rates pain 3/10 . Took 2 nitro at 0300 today and no relief. Has some SOB as well. Pt has end-stage renal and polycystic kidney disease . Has been on dialysis since 2019, dialysis M 59-year-old woman presenting to the emergency department with concern of left mid chest pressure over the last couple of days. Has been fairly constant. It increases when she goes up stairs as usual. Has been experiencing chest pains over the last year and was diagnosed with angina. Approximately 5 years ago did have a stress test which it sounds like she fails noting a ?heart attack? where they gave her nitro. This was at [facility]. She has not had any interventions otherwise. Does not sound as though she has had angiography. At that time was also thought to have a blockage too small to intervene with in the lower left of her heart she says. Does have a history of end-stage renal disease due to polycystic kidney and is on the transplant list. Does receive dialysis Wednesday. This pain/pressure that she is having is familiar. This historically though has been associated with exertion. 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 Is a little short of breath. No cough or cold symptoms. No fever. Discomfort can be a little pleuritic. Does have yearly stress tests as is on renal transplant list. Related Data Home Medications ?Medication ?Instructions ?Recorded ?Confirmed atorvastatin 40 mg tablet 40 mg PO DAILY 12/28/21 11/19/24 bupropion HCl 150 mg 24 hr tablet, 150 mg PO DAILY 12/28/21 11/19/24 extended release calcitriol 0.25 mcg capsule 0.25 mcg PO DAILY 12/28/21 10/17/23 citalopram 20 mg tablet 20 mg PO HS 12/28/21 11/19/24 pramipexole 0.25 mg tablet 0.25 mg PO BID 12/28/21 11/19/24 sevelamer carbonate 800 mg tablet 800 mg PO DIRECTED 12/28/21 11/19/24 torsemide 20 mg tablet 20 mg PO DAILY 12/28/21 11/19/24 alprazolam 1 mg tablet 1 mg PO DAILY PRN 10/17/23 10/17/23 carvedilol 6.25 mg tablet 6.25 mg PO BID 11/19/24 11/19/24 isosorbide mononitrate 30 mg 30 mg PO DAILY 11/19/24 11/19/24 tablet,extended release 24 hr nitroglycerin 0.4 mg sublingual mg sublingual 11/19/24 tablet Previous Rx's ?Medication ?Instructions ?Recorded ketorolac 0.4 % eye drops 1 drp ophthalmic (eye) QID #5 mL 12/28/21 Allergies Allergy/AdvReac Type Severity Reaction Status Date / Time iodine Allergy Unknown Verified 11/19/24 10:30 Penicillins Allergy Rash Verified 04/11/24 08:28 mercera(?) iron Allergy Uncoded 04/11/24 08:28 Review of Systems Status of ROS: Reports: 6 or more systems reviewed and unremarkable except as noted in History and below PFSH PFS Social History Smoking Status: Current every day smoker Second hand tobacco smoke exposure: No How often do you have a drink containing alcohol: monthly or less AUDIT-C Alcohol total score: 1 Non-prescribed substance use: denies use Exam Narrative: Exam Narrative: Pleasant. NAD. Skin is warm and dry. Sclera clear. Cranial nerves 2-12 intact. She is breathing easily. Lungs are clear. No JVD. No supraclavicular crepitus. Pain is not reproducible to palpation across the chest wall. Heart in regular rate and rhythm with trace holosystolic murmur. Loudest at the left sternal border. Abdomen is soft, overweight, nontender. Extremities are well perfused without edema. Const: Vital Signs, click to edit/add: Vital Signs - 24 hr 11/19/24 10:26 11/19/24 10:45 11/19/24 10:46 Temperature 96.3 F L Pulse Rate 62 Pulse Rate [Pulse Oximeter] 66 Respiratory Rate 16 17 Blood Pressure 154/87 H Blood Pressure [Ri ght Upper Arm] 169/79 H Pulse Oximetry 96 96 96 Oxygen Delivery Me thod Room Air 11/19/24 11:02 11/19/24 11:32 11/19/24 12:02 Temperature Pulse Rate 63 58 L 57 L Pulse Rate [Pulse Oximeter] Respiratory Rate 17 18 Blood Pressure 149/66 H 160/77 H 165/82 H Blood Pressure [Ri ght Upper Arm] Pulse Oximetry 97 95 98 Oxygen Delivery Me thod 11/19/24 12:32 11/19/24 13:00 11/19/24 13:02 Temperature Pulse Rate 62 63 62 Pulse Rate [Pulse Oximeter] Respiratory Rate 16 18 22 Blood Pressure 183/85 H 170/77 H Blood Pressure [Ri ght Upper Arm] Pulse Oximetry 94 93 93 Oxygen Delivery Me thod 11/19/24 13:15 11/19/24 13:30 11/19/24 13:32 Temperature Pulse Rate 63 63 Pulse Rate [Pulse Oximeter] Respiratory Rate 22 15 Blood Pressure 165/81 H Blood Pressure [Ri ght Upper Arm] Pulse Oximetry 97 98 Oxygen Delivery Me thod 11/19/24 13:45 11/19/24 14:00 11/19/24 14:02 Temperature Pulse Rate 64 61 63 Pulse Rate [Pulse Oximeter] Respiratory Rate 23 19 16 Blood Pressure 171/82 H Blood Pressure [Ri ght Upper Arm] Pulse Oximetry 96 98 97 Oxygen Delivery Me thod Room Air 11/19/24 14:18 11/19/24 14:30 11/19/24 14:35 Temperature Pulse Rate 63 64 Pulse Rate [Pulse Oximeter] Respiratory Rate 21 11 L Blood Pressure Blood Pressure [Ri ght Upper Arm] Pulse Oximetry 97 96 Oxygen Delivery Me thod 11/19/24 14:45 Temperature Pulse Rate 65 Pulse Rate [Pulse Oximeter] Respiratory Rate 16 Blood Pressure 146/72 H Blood Pressure [Ri ght Upper Arm] Pulse Oximetry 96 Oxygen Delivery Me thod Room Air Documenting provider has reviewed patient's vital signs: yes Course Vital Signs Vital signs: Initial Vital Signs Temperature 96.3 F L 11/19/24 10:26 Temperature Source Temporal Artery Scan 11/19/24 10:26 Pulse Rate 66 11/19/24 10:26 Respiratory Rate 16 11/19/24 10:26 Blood Pressure 169/79 H 11/19/24 10:26 Blood Pressure Mean 109 H 11/19/24 10:26 Blood Pressure Position Sitting 11/19/24 10:26 Pulse Oximetry 96 11/19/24 10:26 Oxygen Delivery Method Room Air 11/19/24 10:26 Vital Signs Temperature 96.3 F L 11/19/24 10:26 Pulse Rate 66 11/19/24 10:26 Respiratory Rate 16 11/19/24 10:26 Blood Pressure 169/79 H 11/19/24 10:26 Pulse Oximetry 96 11/19/24 10:26 Oxygen Delivery Method Room Air 11/19/24 10:26 Temperature 96.3 F L 11/19/24 10:26 Pulse Rate 65 11/19/24 14:45 Respiratory Rate 16 11/19/24 14:45 Blood Pressure 146/72 H 11/19/24 14:45 Pulse Oximetry 96 11/19/24 14:45 Oxygen Delivery Method Room Air 11/19/24 14:45 Medications Administered Medications: Discontinued Medications Generic Name Dose Route Start Last Admin Trade Name Freq PRN Reason Stop Dose Admin Furosemide 80 mg 11/19/24 14:29 11/19/24 14:39 Furosemide 10 Mg/Ml Inj IVP 11/19/24 14:30 80 mg ONCE ONE Administration Medical Decision Making MDM Narrative Medical decision making narrative: Will check for evidence of cardiac ischemia. This might also be some degree of pericarditis or pleuritis. Duration I think suggests against ischemic event. Exacerbating however with physical exertion what appears to be known angina history. Initial point of care troponin is 0.02 One-view Chest x-ray independently reviewed by me looks to show generalized congestion and borderline cardiomegaly. Radiology over-read below INDICATION: Left-sided chest pain. TECHNIQUE: AP portable seated chest x-ray. COMPARISON: None. FINDINGS: Diffuse interstitial prominence/pulmonary vascular congestion may reflect acute pulmonary edema. Overall heart size is toward the upper limit of normal limits accentuated in part by the radiographic technique. No pneumothorax. No definite pleural effusion. Mild eventration of the right hemidiaphragm. The included skeleton is unremarkable. IMPRESSION: Diffuse interstitial prominence may reflect edema. Clinical correlation and radiographic follow-up recommended. Dictated by Lan Calabrese MD @ 11/19/2024 11:36:57 AM On reassessment says that pain/pressure is nearly gone. Has been resting. Rather elevated proBNP. Repeat troponins are negative. Did discuss briefly with Cardiology feels that this is more of a fluid management/nephrology problem. She has not missed dialysis and continues to take her torsemide. I did consult with nephrology as well. Encouraging more aggressive diuresis. And so given 80 mg of furosemide IV here in the emergency department. Will follow up Stephanie at with dialysis tomorrow. See patient discharge plan for further discussion We are giving you a dose of furosemide, also known as Lasix, here in the emergency department to aid in further diuresis. Please follow-up with your usual dialysis tomorrow where some adjustments might be made. Return for increasing persistent chest pain, worsening shortness of breath, fever. Medical Records Medical records reviewed: Yes I reviewed the patient's medical records Lab Data Lab results reviewed: Yes I reviewed the patient's lab results Labs: Lab Results 11/19/24 11/19/24 11/19/24 Range/Units 10:40 10:48 11:21 WBC 6.15 (4.50-11.00) K/uL RBC 2.88 L (4.00-5.20) m/uL Hgb 9.5 L (12.0-16.0) gm/dL Hct 29.6 L (33.0-51.0) % MCV 103 H (80-100) fL MCH 33 (26-34) pg MCHC 32 (32-36) gm/dL RDW Coeff of Santhosh 12.9 (11.5-15.5) % Plt Count 172 (140-440) K/uL Neut % (Auto) 77.1 H (42.0-72.0) % Lymph % (Auto) 12.5 L (20-44) % Storey % (Auto) 6.7 (0.0-11.0) % Eos % (Auto) 2.8 (0.0-7.0) % Baso % (Auto) 0.7 (0.0-3.0) % Neut # (Auto) 4.70 (1.7-7.0) K/uL Lymph # (Auto) 0.77 L (0.90-2.90) K/uL Storey # (Auto) 0.40 (0.00-0.90) K/UL Eos # (Auto) 0.17 (0.00-0.50) K/uL Baso # (Auto) 0.04 (0.00-0.30) K/uL Abs Immat Gran (auto) 0.01 (0.00-0.30) K/uL Imm/Tot Granulo (auto) 0.2 % D-Dimer Quant (PE/DVT) 0.52 H (0.00-0.50) ug/ml Sodium 136 (135-149) mmol/L Potassium 4.5 (3.6-5.1) mmol/L Chloride 99 (96-114) mmol/L Carbon Dioxide 26 (20-32) mmol/L Anion Gap 11 (7-15) mEq/L BUN 37 H (7-30) mg/dL Creatinine 8.2 H (0.5-1.5) mg/dL Estimated Creat Clear 7.09 Estimated GFR 5 ml/min Glucose 88 (60-115) mg/dL Calcium 9.5 (8.4-10.6) mg/dL Troponin I 0.01 (0.01-0.04) ng/mL C-Reactive Protein 0.6 (0.5-1.0) mg/dL NT-Pro-B Natriuret Pep 09515 H (See Note) pg/mL Lab Acknowledgement Test Added POC Troponin I 0.02 (0.01-0.04) ng/ml 11/19/24 11/19/24 Range/Units 11:27 12:46 WBC (4.50-11.00) K/uL RBC (4.00-5.20) m/uL Hgb (12.0-16.0) gm/dL Hct (33.0-51.0) % MCV (80-100) fL MCH (26-34) pg MCHC (32-36) gm/dL RDW Coeff of Santhosh (11.5-15.5) % Plt Count (140-440) K/uL Neut % (Auto) (42.0-72.0) % Lymph % (Auto) (20-44) % Storey % (Auto) (0.0-11.0) % Eos % (Auto) (0.0-7.0) % Baso % (Auto) (0.0-3.0) % Neut # (Auto) (1.7-7.0) K/uL Lymph # (Auto) (0.90-2.90) K/uL Storey # (Auto) (0.00-0.90) K/UL Eos # (Auto) (0.00-0.50) K/uL Baso # (Auto) (0.00-0.30) K/uL Abs Immat Gran (auto) (0.00-0.30) K/uL Imm/Tot Granulo (auto) % D-Dimer Quant (PE/DVT) (0.00-0.50) ug/ml Sodium (135-149) mmol/L Potassium (3.6-5.1) mmol/L Chloride (96-114) mmol/L Carbon Dioxide (20-32) mmol/L Anion Gap (7-15) mEq/L BUN (7-30) mg/dL Creatinine (0.5-1.5) mg/dL Estimated Creat Clear Estimated GFR ml/min Glucose (60-115) mg/dL Calcium (8.4-10.6) mg/dL Troponin I (0.01-0.04) ng/mL C-Reactive Protein (0.5-1.0) mg/dL NT-Pro-B Natriuret Pep (See Note) pg/mL Lab Acknowledgement Test Added POC Troponin I 0.03 (0.01-0.04) ng/ml ECG Data Attestation: I personally reviewed and interpreted this ECG as follows: (1. Shows normal sinus rhythm rate of 67. I do not appreciate ischemic changes 2. 2 hours later looks essentially unchanged normal sinus rhythm at a rate of 62 ) Discharge Plan Discharge Clinical Impression: Chest pain, Pulmonary congestion Patient Disposition: Home, Self-Care Condition: Improved Additional Instructions: We are giving you a dose of furosemide, also known as Lasix, here in the emergency department to aid in further diuresis. Please follow-up with your usual dialysis tomorrow where some adjustments might be made. Return for increasing persistent chest pain, worsening shortness of breath, fever. Prescriptions: No Action atorvastatin 40 mg tablet 40 mg PO DAILY Patient Comments: TAKE 1 TABLET BY MOUTH EVERY DAY torsemide 20 mg tablet 20 mg PO DAILY Patient Comments: TAKE 2 TABLETS BY MOUTH ONCE DAILY. citalopram 20 mg tablet 20 mg PO HS pramipexole 0.25 mg tablet 0.25 mg PO BID Patient Comments: TAKE 1 TABLET BY MOUTH EVERYDAY AT BEDTIME calcitriol 0.25 mcg capsule 0.25 mcg PO DAILY Patient Comments: Take 1 capsule by mouth once a day bupropion HCl 150 mg tablet extended release 24 hr 150 mg PO DAILY Patient Comments: TAKE 1 TABLET BY MOUTH EVERY MORNING sevelamer carbonate 800 mg tablet 800 mg PO DIRECTED Patient Comments: TAKE 2 TABLETS BY MOUTH THREE TIMES DAILY WITH MEALS AND 1 TABLET TWICE DAILY WITH SNACKS ketorolac 0.4 % drops 1 drp ophthalmic (eye) QID Qty: 5 0RF isosorbide mononitrate 30 mg tablet extended release 24 hr 30 mg PO DAILY nitroglycerin 0.4 mg tablet, sublingual sublingual carvedilol 6.25 mg tablet 6.25 mg PO BID alprazolam 1 mg tablet 1 mg PO DAILY PRN Follow Up/Referrals: Yudy Joya PA-C [Primary Care Provider, Family Practice] Stand Alone Forms: [email or web address] Info Instructions
[2024-11-19 10:55] LABS: Troponin, Point-of-Care* 0.02 ng/ml (0.01-0.04)
--- NOTE | 2024-11-19 11:05 | CRLHL7_ITS ---
For Patients: As a result of the Century Cures Act, medical imaging exams and procedure reports are released immediately into your electronic medical record. You may view this report before your referring provider. If you have questions, please contact your health care provider. INDICATION: Left-sided chest pain. TECHNIQUE: AP portable seated chest x-ray. COMPARISON: None. FINDINGS: Diffuse interstitial prominence/pulmonary vascular congestion may reflect acute pulmonary edema. Overall heart size is toward the upper limit of normal limits accentuated in part by the radiographic technique. No pneumothorax. No definite pleural effusion. Mild eventration of the right hemidiaphragm. The included skeleton is unremarkable. IMPRESSION: Diffuse interstitial prominence may reflect edema. Clinical correlation and radiographic follow-up recommended. Dictated by Lan Calabrese MD @ 11/19/2024 11:36:57 AM (Electronically Signed)
[2024-11-19 11:18] LABS: Hematocrit* 29.6 % (33.0-51.0); Hemoglobin* 9.5 gm/dL (12.0-16.0); Immature Granulocytes Abs Auto 0.01 K/uL (0.00-0.30); Immature Granulocytes Pct Auto 0.2 %; Mean Corpuscular HGB Conc 32 gm/dL (32-36); Mean Corpuscular Hemoglobin 33 pg (26-34); Mean Corpuscular Volume 103 fL (80-100); RDW Coefficient of Variation % 12.9 % (11.5-15.5); Red Blood Count* 2.88 m/uL (4.00-5.20); White Blood Count* 6.15 K/uL (4.50-11.00)
[2024-11-19 11:35] LABS: Slide Review Reflex No
[2024-11-19 11:38] LABS: Chloride* 99 mmol/L (96-114); Potassium* 4.5 mmol/L (3.6-5.1); Sodium* 136 mmol/L (135-149)
[2024-11-19 11:42] LABS: Anion Gap 11 mEq/L (7-15); Blood Urea Nitrogen* 37 mg/dL (7-30); Calcium* 9.5 mg/dL (8.4-10.6); Carbon Dioxide* 26 mmol/L (20-32); Creatinine* 8.2 mg/dL (0.5-1.5); D Dimer Quantitative* 0.52 ug/ml (0.00-0.50); Est. Creatinine Clearance* 7.09; Estimated Glomerular Filt Rate 5 ml/min; Glucose* 88 mg/dL (60-115)
[2024-11-19 11:53] LABS: Lymphocytes Absolute Auto 0.77 K/uL (0.90-2.90)
[2024-11-19 12:32] LABS: NT Pro B Type NatriureticPept* 17200 pg/mL (See Note)
[2024-11-19 13:17] LABS: Troponin, Point-of-Care* 0.03 ng/ml (0.01-0.04)
[2024-11-19] MEDS: FUROSEMIDE 10 MG/ML inj 80 MG IVP (14:39)
== END 2024-11-19 14:49 | disposition home or self-care (01) ==
PROVIDERS: Emergency Provider Family Medicine; PCP Student in an Organized Health Care Education/Training Program
DX: R07.9 Chest pain, unspecified (principal)
CPT/HCPCS: 36415; 71045; 80048; 83880; 84484; 85025; 85379; 86140; 93005; 94761; 99284; 99285; J1938